=== PATIENT | female | born 1985 | race Caucasian/White ===

== ENCOUNTER 2016-07-29 12:01 | Emergency (ER) | payer OTHER ==
[~2016-07-29] VITALS: Ht 162.6 cm; Wt 82.0 kg
[~2016-07-29 12:01] MED LIST: AMLO2.5T78 PO; BAC30OI TOP; BEN25 PO; CALC-176 PO; CEPH-443 PO; FAMO-18 PO; FOLI-49 PO; HYDR200T5 PO; HYDR2TAB15 PO; PANT40TA4 PO; PRED10TA PO
[2016-07-29 12:05] VITALS: Ht 162.6 cm; Wt 82.0 kg
[2016-07-29] MEDS ORDERED: AZIT250T94 PO (13:51)
[2016-07-29] MEDS ORDERED: IBUP-1542 PO (13:51)
[2016-07-29] MEDS ORDERED: FLUT9.9S NASAL (13:52)
--- NOTE | 2016-07-29 13:54 | ERD ---
ER Documentation Chief Complaint Date/Time DATE: 07/29/16 TIME: 13:53 Chief Complaint LT EAR ACHE X 2 DAYS HPI This 31-year-old female presents with left ear pain for last 2 days. She also has cough congestion. She denies fevers, blood or discharge. ROS All systems reviewed and are negative except as per history of present illness. Medications Home Meds Active Scripts Fluticasone Propionate (Flonase Allergy Relief) 9.9 Ml [place].susp, 1 SPRAY NASAL DAILY for 7 Days, #1 BOTTLE TO EACH NOSTRIL Prov:MICKY CHAN MD 07/29/16 Ibuprofen* (Motrin*) 600 Mg Tab, 600 MG PO Q6, #15 TAB Prov:MICKY CHAN MD 07/29/16 Azithromycin* (Zithromax*) 250 Mg Tablet, 250 MG PO .ZPACK DIRECTED, #6 TAB TAKE 500 MG (2 TABS) THE FIRST DAY THEN 250 MG (1 TAB) DAYS 2-5 Prov:MICKY CHAN MD 07/29/16 Bacitracin* (Bacitracin Zinc Oint*) 28.35 Gm Oint, 1 APPLIC TOP BID, #1 TUB APPLI TO Prov:DEION MEAD PA-C 06/18/16 Cephalexin* (Keflex*) 500 Mg Capsule, 500 MG PO QID for 5 Days, CAP Prov:DEION MEAD PA-C 06/18/16 Famotidine* (Pepcid*) 20 Mg Tablet, 20 MG PO BID for 4 Days, TAB Prov:RAJAN GODDARD 06/09/16 Diphenhydramine Hcl* (Benadryl*) 25 Mg Cap, 25 MG PO Q6, #30 CAP Prov:RAJAN GODDARD 06/09/16 Hydromorphone Hcl* (Dilaudid*) 2 Mg Tablet, 2 MG PO Q6H Y for SEVERE PAIN LEVEL 7-10, #40 TAB Prov:NEVILLE AWAD MD 04/16/16 Pantoprazole* (Pantoprazole*) 40 Mg Tablet.dr, 40 MG PO BID, #60 3 Refills Prov:NEVILLE AWAD MD 04/16/16 Prednisone* (Prednisone*) 10 Mg Tab, 5 MG PO BID, #60 TAB Prov:NEVILLE AWAD MD 04/16/16 Reported Medications Amlodipine Besylate* (Amlodipine Besylate*) 2.5 Mg Tablet, 2.5 MG PO DAILY, #30 TAB 02/18/16 Hydroxychloroquine Sulfate* (Plaquenil*) 200 Mg Tab, 200 MG PO DAILY, TAB 02/18/16 Folic Acid* (Folic Acid*) 1 Mg Tablet, 1 MG PO DAILY, TAB 05/11/14 Calcium Cmb 2-Mag Cmb 12-Vit D3 (Calcium 500) 1 Each Tablet, 1 TAB PO DAILY, TAB 05/11/14 Allergies Allergies: Coded Allergies: vancomycin (Verified Allergy, Unknown, 06/08/16) PMhx/Soc History of Surgery: No Anesthesia Reaction: No Hx Neurological Disorder: No Hx Respiratory Disorders: No Hx Cardiac Disorders: No Hx Psychiatric Problems: No Hx Miscellaneous Medical Probl: Yes (SLE, RA, splenic infarct, RA, anemia, lupus) Hx Alcohol Use: No Hx Substance Use: No Hx Tobacco Use: No Physical Exam Vitals Vital Signs Date Time Temp Pulse Resp B/P Pulse Ox O2 Delivery O2 Flow Rate FiO2 07/29/16 12:05 98.2 84 18 147/78 96 Physical Exam Const: [] Alert, [id number] per Head: Atraumatic Eyes: Normal Conjunctiva ENT: Normal External Ears, Nose and Mouth. Clear nasal discharge. Left TM is opaque with decreased light reflex. No mastoid tenderness. Neck: Full range of motion..~ No meningismus. Resp: Clear to auscultation bilaterally Cardio: Regular rate and rhythm, no murmurs Abd: Soft, non tender, non distended. Normal bowel sounds Skin: No petechiae or rashes Back: No midline or flank tenderness Ext: No cyanosis, or edema Neur: Awake and alert Psych: Normal Mood and Affect Procedures/MDM Patient presents with URI symptoms and signs of otitis media. She will treated with Zithromax, Flonase and ibuprofen. The patient was stable with no new complaints during the ER course. Clinically, there is no current evidence to suggest meningitis, sepsis, acute abdomen, pneumonia, acute coronary syndrome, pulmonary embolism, or any other emergent condition appearing to require further evaluation or hospitalization. The patient should certainly return for any new or worsening symptoms per the aftercare instructions. They should otherwise follow-up with her primary care doctor for reevaluation this week. Departure Diagnosis: Primary Impression: Otitis media Otitis media type: suppurative Laterality: left Chronicity: acute Recurrence: not specified as recurrent Spontaneous tympanic membrane rupture: without spontaneous rupture Qualified Code: H66.002 - Acute suppurative otitis media of left ear without spontaneous rupture of tympanic membrane, recurrence not specified Additional Impression: Left ear pain Condition: Stable Patient Instructions: Otitis Media, Abx Tx (Adult) Additional Instructions: Recheck for new or worsening symptoms or primary care doctor. MICKY CHAN MD Jul 29, 2016 13:54
== END 2016-07-29 14:20 | disposition home or self-care (01) ==
LOC: FTE 12:01
DX: H66.002 Acute suppurative otitis media without spontaneous rupture of ear drum, left ear (principal)
CPT/HCPCS: 99283

== ENCOUNTER 2016-11-03 11:15 | Emergency (ER) | payer OTHER ==
[~2016-11-03] VITALS: Wt 80.0 kg
[~2016-11-03 11:15] MED LIST changes: +AZIT250T94 PO; -BAC30OI TOP; +BACI28.34 TOP; +FLUT9.9S NASAL; +IBUP-1542 PO
[2016-11-03] MEDS ORDERED: IBUPROFEN 800 MG TAB PO ONE (14:00)
[2016-11-03 14:05] LABS: URINE BLOOD (Dip) POC 2+ (NEGATIVE)
--- NOTE | 2016-11-03 14:20 | ERD ---
ER Documentation Chief Complaint Date/Time DATE: 11/03/16 TIME: 14:20 Chief Complaint LEFT EAR PAIN FOR A WEEK. NO COUGHING NO CONGESTION OR SORE THROAT HPI This a 31-year-old female who presents the emergency department today complaining of left ear pain for the past week. Patient states that she took Tylenol initially helped but now has increased pain. States that she feels like there is fluid behind her ear. Denies any sore throat, runny nose, cough. States that she has a history of lupus and anemia ROS All systems reviewed and are negative except as per history of present illness. Medications Home Meds Active Scripts Fluticasone Propionate (Flonase Allergy Relief) 9.9 Ml [place].susp, 1 SPRAY NASAL DAILY, #1 BOTTLE TO EACH NOSTRIL Prov:MOLLY MILNER PA-C 11/03/16 Cetirizine Hcl* (Zyrtec*) 10 Mg Capsule, 10 MG PO DAILY, #10 TAB.CHEW Prov:MOLLY MILNER PA-C 11/03/16 Ciprofloxacin Hcl/Dexameth (Ciprodex Otic Suspension) 7.5 Ml [place].susp, 4 DROP LEFT EAR BID for 7 Days, EA Prov:MOLLY MILNER PA-C 11/03/16 Acetaminophen* (Tylophen*) 500 Mg Capsule, 1 CAP PO Q6H Y for PAIN AND OR ELEVATED TEMP, #30 CAP Prov:MOLLY MILNER PA-C 11/03/16 Ibuprofen* (Motrin*) 600 Mg Tab, 600 MG PO Q6, #30 TAB Prov:MOLLY MILNER PA-C 11/03/16 Fluticasone Propionate (Flonase Allergy Relief) 9.9 Ml [place].susp, 1 SPRAY NASAL DAILY for 7 Days, #1 BOTTLE TO EACH NOSTRIL Prov:MICKY CHAN MD 07/29/16 Ibuprofen* (Motrin*) 600 Mg Tab, 600 MG PO Q6, #15 TAB Prov:MICKY CHAN MD 07/29/16 Azithromycin* (Zithromax*) 250 Mg Tablet, 250 MG PO .TylerPACK DIRECTED, #6 TAB TAKE 500 MG (2 TABS) THE FIRST DAY THEN 250 MG (1 TAB) DAYS 2-5 Prov:MICKY CHAN MD 07/29/16 Bacitracin* (Bacitracin Zinc Oint*) 28.35 Gm Oint, 1 APPLIC TOP BID, #1 TUB APPLI TO Prov:DEION MEAD PA-C 06/18/16 Cephalexin* (Keflex*) 500 Mg Capsule, 500 MG PO QID for 5 Days, CAP Prov:DEION MEAD PA-C 06/18/16 Famotidine* (Pepcid*) 20 Mg Tablet, 20 MG PO BID for 4 Days, TAB Prov:RAJAN GODDARD 06/09/16 Diphenhydramine Hcl* (Benadryl*) 25 Mg Cap, 25 MG PO Q6, #30 CAP Prov:RAJAN GODDARD 06/09/16 Hydromorphone Hcl* (Dilaudid*) 2 Mg Tablet, 2 MG PO Q6H Y for SEVERE PAIN LEVEL 7-10, #40 TAB Prov:NEVILLE AWAD MD 04/16/16 Pantoprazole* (Pantoprazole*) 40 Mg Tablet.dr, 40 MG PO BID, #60 3 Refills Prov:NEVILLE AWAD MD 04/16/16 Prednisone* (Prednisone*) 10 Mg Tab, 5 MG PO BID, #60 TAB Prov:NEVILLE AWAD MD 04/16/16 Reported Medications Amlodipine Besylate* (Amlodipine Besylate*) 2.5 Mg Tablet, 2.5 MG PO DAILY, #30 TAB 02/18/16 Hydroxychloroquine Sulfate* (Plaquenil*) 200 Mg Tab, 200 MG PO DAILY, TAB 02/18/16 Folic Acid* (Folic Acid*) 1 Mg Tablet, 1 MG PO DAILY, TAB 05/11/14 Calcium Cmb 2-Mag Cmb 12-Vit D3 (Calcium 500) 1 Each Tablet, 1 TAB PO DAILY, TAB 05/11/14 Allergies Allergies: Coded Allergies: vancomycin (Verified Allergy, Unknown, 07/29/16) PMhx/Soc History of Surgery: Yes (right index finger amp) Anesthesia Reaction: No Hx Neurological Disorder: No Hx Respiratory Disorders: No Hx Cardiac Disorders: No Hx Psychiatric Problems: No Hx Miscellaneous Medical Probl: Yes (SLE, RA, splenic infarct, RA, anemia, lupus) Hx Alcohol Use: No Hx Substance Use: No Hx Tobacco Use: No Smoking Status: Never smoker Physical Exam Vitals Vital Signs Date Time Temp Pulse Resp B/P Pulse Ox O2 Delivery O2 Flow Rate FiO2 11/03/16 11:19 98.9 89 20 140/81 97 Physical Exam Const: NAD Head: Atraumatic Eyes: Normal Conjunctiva ENT: Right ear TM normal. Left ear significant tenderness. No TM erythema. Nose no drainage. Throat no erythema no exudate or tenderness to palpation mastoid Neck: Full range of motion..~ No meningismus. Resp: Clear to auscultation bilaterally Cardio: Regular rate and rhythm, no murmurs Skin: No petechiae or rashes Back: No midline or flank tenderness Psych: Normal Mood and Affect Results 24 hrs Laboratory Tests Test 11/03/16 14:07 Bedside Urine pH (LAB) 5.0 Bedside Urine Protein (LAB) 1+ Bedside Urine Glucose (UA) Negative Bedside Urine Ketones (LAB) Negative Bedside Urine Blood 2+ Bedside Urine Nitrite (LAB) Negative Bedside Urine Leukocyte Esterase (L Negative Current Medications Medications (Trade) Dose Ordered Sig/Mansi Route PRN Reason Start Time Stop Time Status Last Admin Dose Admin Ibuprofen (Motrin) 800 mg ONCE ONCE PO 11/03/16 14:00 11/03/16 14:01 DC 11/03/16 13:39 DIAGNOSTIC IMAGING REPORT Patient: HAYDE MURILLO : 1985 Age: 31 Sex: F [id number] DOS: 11/03/16 0000 Ordering MD: MOLLY MILNER PA-C Location: [facility] Room/Bed: PROCEDURE: CT IAC without. CLINICAL INDICATION: Decreased left-sided hearing. TECHNIQUE: The study was performed utilizing a multi-slice, multidetector CT scanner. Direct spiral 1 mm axial sections were obtained through the head without the use of intravenous contrast material. 1 or more of the following dose reduction techniques were utilized: Automated exposure control, adjustment of the mA and/or kV according to patient's size, iterative reconstruction technique. Coronal and sagittal reformations were obtained. The images were reviewed on a PACS workstation. RADIATION DOSE: CTDIvol: 38.4 mGy DLP: 372.3 mGy-cm COMPARISON: No prior studies are available for comparison. FINDINGS: Right temporal bone: The external auditory canal is normal in appearance. The tympanic membrane is intact. The ossicles are intact. The stapes articulates normally with the oval window. There is normal bone mineral density of the fissula antefenestra. The inner ear structures are normal. The semicircular canals are covered by bone. The facial nerve describes a normal course. The mastoid air cells are normally aerated. The internal acoustic canal is unremarkable. There is pneumatization of the right petrous apex without evidence of inflammatory changes, normal variant. Left temporal bone: The external auditory canal is normal in appearance. The tympanic membrane is intact. The ossicles are intact. The stapes articulates normally with the oval window. There is normal bone mineral density of the fissula antefenestra. The inner ear structures are normal. The semicircular canals are covered by bone. The facial nerve describes a normal course. The mastoid air cells are normally aerated. The internal acoustic canal is unremarkable. There is pneumatization of the left petrous apex without evidence of inflammatory changes, normal variant. Limited visualization of the intracranial contents is unremarkable. IMPRESSION: 1. Normal CT of the temporal bones without contrast. 2. Anatomy as discussed above. RPTAT: HGAS .Damian Rosenberg MD MD Date Time Electronically viewed and signed by .Damian Rosenberg MD, on 11/03/2016 15: 25 .S/ CC: MOLLY MILNER PA-C [facility] This a 31-year-old female who presents to the emergency department today complaining of left ear pain for the past week. Patient has no URI symptoms that she does have a significant tenderness along her mastoid. I did have the patient seen and evaluated by Dr. Rodriguez and he feels that a CT scan would be appropriate to rule out mastoiditis. Facial bones CT noncontrast showed normal CT of the temporal bones without contrast. There are no abnormalities. Patient symptoms at this time most consistent with eustachian tube dysfunction. There is no evidence of otitis media. Did consider otitis externa. Patient has no other URI symptoms. I have low suspicion for strep pharyngitis, peritonsillar abscess, retropharyngeal abscess, otitis media, PNA, sinusitis, abscess, meningitis, sepsis, or other acute infectious bacterial process. Patient does have a history of lupus and is already taking prednisone. Patient was given Motrin here in the emergency department. I will give her prescription for Ciprodex drops in addition Tylenol, Motrin, Zyrtec and Flonase. Patient was given referral information for ENT specialist. She is instructed to continue taking her usual lupus medications. At this time the patient is stable for discharge and outpatient management. Patient should follow up with their PCP in the next 1-2 days. They may return to the emergency department sooner for any persistent or worsening of symptoms. Patient understood and agreed with the plan. Departure Diagnosis: Primary Impression: Left ear pain Condition: MOLLY Epps PA-C November 03, 2016 14:20
--- NOTE | 2016-11-03 15:25 | RADRPT ---
PROCEDURE: CT IAC without. CLINICAL INDICATION: Decreased left-sided hearing. TECHNIQUE: The study was performed utilizing a multi-slice, multidetector CT scanner. Direct spira l 1 mm axial sections were obtained through the head without the use of intravenous contrast materia l. 1 or more of the following dose reduction techniques were utilized: Automated exposure control , adjustment of the mA and/or kV according to patient's size, iterative reconstruction technique. C oronal and sagittal reformations were obtained. The images were reviewed on a PACS workstation. RADIATION DOSE: CTDIvol: 38.4 mGyDLP: 372.3 mGy-cm COMPARISON: No prior studies are available for comparison. FINDINGS: Right temporal bone: The external auditory canal is normal in appearance. The tympanic membrane is intact. The ossicles are intact. The stapes articulates normally with the oval window. There is normal bone mineral density of the fissula antefenestra. The inner ear structures are normal. The semicircular canals are covered by bone. The facial nerve describes a normal course. The mastoid a ir cells are normally aerated. The internal acoustic canal is unremarkable. There is pneumatization of the right petrous apex without evidence of inflammatory changes, normal variant. Left temporal bone: The external auditory canal is normal in appearance. The tympanic membrane is intact. The ossicles are intact. The stapes articulates normally with the oval window. There is normal bone mineral density of the fissula antefenestra. The inner ear structures are normal. The semicircular canals are covered by bone. The facial nerve describes a normal course. The mastoid a ir cells are normally aerated. The internal acoustic canal is unremarkable. There is pneumatization of the left petrous apex without evidence of inflammatory changes, normal variant. Limited visualization of the intracranial contents is unremarkable. IMPRESSION: 1. Normal CT of the temporal bones without contrast. 2. Anatomy as discussed above. RPTAT: HGAS .Damian Rosenberg MD, Date Time Electronically viewed and signed by .Damian Rosenberg MD, MD on 11/03/2016 15:25 .S/
[2016-11-03] MEDS ORDERED: ACET500C5 PO (15:42)
[2016-11-03] MEDS ORDERED: IBUP-1542 PO (15:42)
[2016-11-03] MEDS ORDERED: FLUT9.9S NASAL (15:43)
[2016-11-03] MEDS ORDERED: CIPR7.5D4 LEFT EAR (15:43)
[2016-11-03] MEDS ORDERED: CETI10CA PO (15:43)
== END 2016-11-03 15:54 | disposition home or self-care (01) ==
LOC: FTE 11:15
DX: H92.02 Otalgia, left ear (principal)
CPT/HCPCS: 70480; 81003; Z7502; Z7610

== ENCOUNTER 2016-12-05 19:28 | Emergency (ER) | payer OTHER ==
[~2016-12-05] VITALS: Ht 162.6 cm; Wt 85.5 kg
[~2016-12-05 19:28] MED LIST changes: +ACET500C5 PO; +CETI10CA PO; +CIPR7.5D4 LEFT EAR
[2016-12-05 19:38] VITALS: Ht 162.6 cm; Wt 85.5 kg
[2016-12-05] MEDS ORDERED: ONDANSETRON 4 MG INJ IV STA (20:12)
--- NOTE | 2016-12-05 20:29 | ERD ---
ER Documentation Chief Complaint Date/Time DATE: 12/05/16 TIME: 20:24 Chief Complaint Vomiting and Diarrhea since this morning HPI 34-year-old female complaining of nausea, vomiting, and diarrhea since earlier today. She vomited every 30 minutes, and able to maintain p.o. fluid intake. The vomit is nonbloody and nonbilious. She had 4 episodes of diarrhea today, last episode was 7 hours ago. The diarrhea is nonbloody. Patient has history of GERD, reports epigastric discomfort for the last week, along with shortness of breath on exertion. Patient also has history of lupus and hypertension. Denies fever at home. Denies shortness of breath at rest. Denies headache or neck pain. Denies chest pain. Denies dysuria. Denies cough or runny nose. ROS All systems reviewed and are negative except as per history of present illness. Medications Home Meds Active Scripts Electrolyte,Oral (Pedialyte) 1,000 Ml Solution, 100 ML PO Q6 Y for VOMITTING, # 1000 ML Prov:DEREK DUNBAR NP 12/05/16 Ondansetron (Ondansetron Odt) 4 Mg Tab.rapdis, 4 MG PO Q6H Y for NAUSEA AND/OR VOMITING, #10 TAB Prov:DEREK DUNBAR NP 12/05/16 Acetaminophen* (Tylophen*) 500 Mg Capsule, 1 CAP PO Q6H Y for PAIN AND OR ELEVATED TEMP, #20 CAP Prov:DEREK DUNBAR REINFORCER 12/05/16 Fluticasone Propionate (Flonase Allergy Relief) 9.9 Ml Gratz.susp, 1 SPRAY NASAL DAILY, #1 BOTTLE TO EACH NOSTRIL Prov:MOLLY MILNER PA-C 11/03/16 Cetirizine Hcl* (Zyrtec*) 10 Mg Capsule, 10 MG PO DAILY, #10 TAB.CHEW Prov:MOLLY MILNER PA-C 11/03/16 Ciprofloxacin Hcl/Dexameth (Ciprodex Otic Suspension) 7.5 Ml Drops.susp, 4 DROP LEFT EAR BID for 7 Days, EA Prov:MOLLY MLINER PA-C 11/03/16 Acetaminophen* (Tylophen*) 500 Mg Capsule, 1 CAP PO Q6H Y for PAIN AND OR ELEVATED TEMP, #30 CAP Prov:PROUSE,MOLLY M. PA-C 11/03/16 Ibuprofen* (Motrin*) 600 Mg Tab, 600 MG PO Q6, #30 TAB Prov:MOLLY MILNER PA-C 11/03/16 Fluticasone Propionate (Flonase Allergy Relief) 9.9 Ml Gratz.susp, 1 SPRAY NASAL DAILY for 7 Days, #1 BOTTLE TO EACH NOSTRIL Prov:MICKY CHAN MD 07/29/16 Ibuprofen* (Motrin*) 600 Mg Tab, 600 MG PO Q6, #15 TAB Prov:MICKY CHAN MD 07/29/16 Azithromycin* (Zithromax*) 250 Mg Tablet, 250 MG PO .TylerPACK DIRECTED, #6 TAB TAKE 500 MG (2 TABS) THE FIRST DAY THEN 250 MG (1 TAB) DAYS 2-5 Prov:MICKY CHAN MD 07/29/16 Bacitracin* (Bacitracin Zinc Oint*) 28.35 Gm Oint, 1 APPLIC TOP BID, #1 TUB APPLI TO Prov:DEION MEAD PA-C 06/18/16 Cephalexin* (Keflex*) 500 Mg Capsule, 500 MG PO QID for 5 Days, CAP Prov:DEION MEAD PA-C 06/18/16 Famotidine* (Pepcid*) 20 Mg Tablet, 20 MG PO BID for 4 Days, TAB Prov:RAJAN GODDARD 06/09/16 Diphenhydramine Hcl* (Benadryl*) 25 Mg Cap, 25 MG PO Q6, #30 CAP Prov:RAJAN GODDARD 06/09/16 Hydromorphone Hcl* (Dilaudid*) 2 Mg Tablet, 2 MG PO Q6H Y for SEVERE PAIN LEVEL 7-10, #40 TAB Prov:NEVILLE AWAD MD 04/16/16 Pantoprazole* (Pantoprazole*) 40 Mg Tablet.dr, 40 MG PO BID, #60 3 Refills Prov:NEVILLE AWAD MD 04/16/16 Prednisone* (Prednisone*) 10 Mg Tab, 5 MG PO BID, #60 TAB Prov:NEVILLE AWAD MD 04/16/16 Reported Medications Amlodipine Besylate* (Amlodipine Besylate*) 2.5 Mg Tablet, 2.5 MG PO DAILY, #30 TAB 02/18/16 Hydroxychloroquine Sulfate* (Plaquenil*) 200 Mg Tab, 200 MG PO DAILY, TAB 02/18/16 Folic Acid* (Folic Acid*) 1 Mg Tablet, 1 MG PO DAILY, TAB 05/11/14 Calcium Cmb 2-Mag Cmb 12-Vit D3 (Calcium 500) 1 Each Tablet, 1 TAB PO DAILY, TAB 05/11/14 Allergies Allergies: Coded Allergies: vancomycin (Verified Allergy, Unknown, 12/05/16) PMhx/Soc History of Surgery: Yes (right index finger amp) Anesthesia Reaction: No Hx Neurological Disorder: No Hx Respiratory Disorders: No Hx Cardiac Disorders: No Hx Psychiatric Problems: No Hx Miscellaneous Medical Probl: Yes (SLE, RA, splenic infarct, RA, anemia, lupus) Hx Alcohol Use: No Hx Substance Use: No Hx Tobacco Use: No Smoking Status: Never smoker Physical Exam Vitals Vital Signs Date Time Temp Pulse Resp B/P Pulse Ox O2 Delivery O2 Flow Rate FiO2 12/05/16 21:39 100.6 85 17 113/68 100 Room Air 12/05/16 19:38 101.3 115 20 139/74 97 Physical Exam General: Well-developed, well-nourished, conscious and coherent, in no distress Skin: Warm and dry without rash, good texture and turgor Head: Normocephalic without evidence of trauma Eyes: Sclera and conjunctivae normal; pupils equal, round, and reactive to light; extraocular movements are intact Neck: Supple without meningismus or adenopathy. Carotids are equal. Trachea midline. No bruits or JVD Chest: Normal AP diameter. Good expansion without retractions. Nontender. Lungs are clear to auscultate bilaterally with good tidal volume Heart: Regular rate and rhythm. No murmur, rub, or gallops heard Abdomen: Soft, epigastric and right upper quadrant without masses, guarding, or rebound. Bowel sounds are active. No hepatosplenomegaly Back: Without spinal or CVA tenderness Pelvis: Nontender to palpation and stable to compression Extremities: Full range of motion. Good strength bilaterally. No clubbing, cyanosis, or edema. Peripheral pulses are intact. Sensation intact Neuro: Alert and oriented 4, GCS 15. Cranial nerves grossly intact. Motor and sensory exams nonfocal. Moves all extremities. Speech clear. Gait normal Result Diagram: 12/05/16201912/05/162019 Results 24 hrs Laboratory Tests Test 12/05/16 20:20 White Blood Count 7.010^3/ul Red Blood Count 3.7410^6/ul Hemoglobin 9.0g/dl Hematocrit 30.4% Mean Corpuscular Volume 81.3fl Mean Corpuscular Hemoglobin 24.1pg Mean Corpuscular Hemoglobin Concent 29.6g/dl Red Cell Distribution Width 14.1% Platelet Count 7510^3/UL Mean Platelet Volume 12.9fl Neutrophils % 87.2% Lymphocytes % 7.5% Monocytes % 4.3% Eosinophils % 0.3% Basophils % 0.1% Nucleated Red Blood Cells % 0.0/100WBC Neutrophils # 6.110^3/ul Lymphocytes # 0.510^3/ul Monocytes # 0.310^3/ul Eosinophils # 0.010^3/ul Basophils # 0.010^3/ul Nucleated Red Blood Cells # 0.010^3/ul Urine Color YELLOW Urine Clarity CLEAR Urine pH 5.5 Urine Specific [place] >=1.030 Urine Ketones NEGATIVE Urine Nitrite NEGATIVE Urine Bilirubin 1+ Urine Ictotest NEGATIVE Urine Urobilinogen 0.2 E.U./dL Urine Leukocyte Esterase NEGATIVE Urine Microscopic RBC 2-5/HPF Urine Microscopic WBC 0-2/HPF Urine Squamous Epithelial Cells FEW Urine Bacteria RARE Urine Hemoglobin 1+ Urine Glucose NEGATIVE% Urine Total Protein 1+ Sodium Level 142mmol/L Potassium Level 3.6mmol/L Chloride Level 109mmol/L Carbon Dioxide Level 22mmol/L Anion Gap 15 Blood Urea Nitrogen 10mg/dl Creatinine 0.70mg/dl Glucose Level 94mg/dl Calcium Level 8.6mg/dl Total Bilirubin 1.0mg/dl Direct Bilirubin 0.00mg/dl Indirect Bilirubin 1.0mg/dl Aspartate Amino Transf (AST/SGOT) 22IU/L Alanine Aminotransferase (ALT/SGPT) 28IU/L Alkaline Phosphatase 102IU/L Troponin I 0.014ng/ml Total Protein 7.7g/dl Albumin 4.3g/dl Globulin 3.40g/dl Albumin/Globulin Ratio 1.26 Lipase 22U/L Current Medications Medications (Trade) Dose Ordered Sig/Mansi Route PRN Reason Start Time Stop Time Status Last Admin Dose Admin Ondansetron HCl 4 mg 4 mg ONCE STAT IV 12/05/16 20:12 12/05/16 20:13 DC 12/05/16 20:47 Sodium Chloride (NS) 1,000 ml @ 1,000 mls/hr Q1H ONCE IV 12/05/16 20:30 12/05/16 21:29 DC 12/05/16 20:48 Acetaminophen (Tylenol Tab) 650 mg ONCE ONCE PO 12/05/16 20:30 12/05/16 20:31 DC 12/05/16 20:48 PROCEDURE: XR Chest. CLINICAL INDICATION: Shortness of breath. TECHNIQUE: Portable AP view of the chest was obtained. COMPARISON: 03/14/2016 FINDINGS: The cardiomediastinal silhouette is mildly enlarged. The lungs are clear. There is no evidence for pleural effusion, pneumothorax or pulmonary vascular congestion. The osseous structures are intact with no evidence for acute abnormality. RPTAT:HJJR IMPRESSION: Mild cardiac silhouette enlargement without evidence for acute intrathoracic pathology. Physician Andrei Date Time Electronically viewed and signed by Physician Andrei on 12/05/2016 21:58 JR/ CC: DEREK DUNBAR NP PROCEDURE: Right upper quadrant abdominal ultrasound. CLINICAL INDICATION: Abdominal pain TECHNIQUE: Meneses scale and color doppler ultrasound images of the right upper quadrant. COMPARISON: Abdominal 04/12/2016, abdominal CT 04/11/2016 FINDINGS: Pancreas: Visualized portions appear of normal echogenicity, no focal lesions. Liver: Morphology: Normal in size and contour. Echogenicity: Normal. Focal lesions: None. Main portal vein: Patent with hepatopetal flow. Biliary System: Asymmetric wall thickness of the gallbladder is unchanged with areas of normal thickness observed. No gallstones seen. 5 mm gallbladder wall polyp is again noted. No intrahepatic biliary dilatation. Common bile duct measures 3.5 mm in maximal dimension. Kidneys: Right 11.2 cm in length. Right renal cortical thickness is preserved. Normal echogenicity. No hydronephrosis. No renal calculi. No focal lesions. No free fluid identified. IMPRESSION: Asymmetric wall thickening of the gallbladder with areas of sparing is unchanged from previous examination and not consistent with cholecystitis. Unchanged appearance of small gallbladder wall polyp. No shadowing gallstones are seen. Normal caliber intrahepatic and extrahepatic biliary system. RPTAT: AADD .Pritesh Montes MD, MD Date Time Electronically viewed and signed by .Pritesh Montes MD, MD on 12/05/2016 21:24 .B/ CC: DEREK DUNBAR REINFORCER Procedures/MDM ED course: Patient given Tylenol p.o., Zofran IV, and normal saline 1 L bolus. Patient did not have any more episodes of vomiting while in the ED. Her temperature and heart rate have decreased. EKG: Sinus tachycardia at 106, normal axis. Right bundle branch block, left anterior fascicular block, bifascicular block, left ventricular hypertrophy with repolarization abnormality. No ST segment elevation or depression. No ectopic beats. No QT prolongation. No other EKG abnormalities. No change in EKG compared to previous visits. EKG read by Dr. Rodríguez. CBC: no e/o of systemic infection or severe anemia CMP: no e/o severe acidosis, renal failure, diabetic ketoacidosis, liver disease Lipase: no e/o pancreatitis PT/INR: normal coagulation Troponin: no e/o acute ischemia Chest X-ray 1V: Mild cardiac silhouette enlargement without evidence for acute intrathoracic pathology. Gallbladder ultrasound: Asymmetric wall thickening of the gallbladder with areas of sparing is unchanged from previous examination and not consistent with cholecystitis. Unchanged appearance of small gallbladder wall polyp. No shadowing gallstones are seen. Normal caliber intrahepatic and extrahepatic biliary system. Medical decision-making: Well-appearing 31-year-old female history of lupus and acid reflux present ED with fever, vomiting, and diarrhea since this morning. Likely patient has a viral gastroenteritis. Low suspicion for acute TX, pneumonia, pneumothorax, PE , or aortic dissection. Low suspicion for acute appendicitis, cholecystitis, pancreatitis, or other acute abdomen. Patient symptoms and vital signs improved after ED treatment. Patient appears well, stable for discharge and outpatient management. Medical decision making shared with patient and family. Education provided to patient and family. Patient and family expressed understanding of the plan. Medications on discharge: Tylenol, Zofran. Follow-up: Primary care provider in 2-3 days or return to ED if worse. The case was reviewed and discussed with Dr. Thomas, who agrees with the plan of care including labs, treatment, and advanced imaging as appropriate. Departure Diagnosis: Primary Impression: Gastroenteritis Condition: Good DEREK DUNBAR REINFORCER Dec 05, 2016 20:29
[2016-12-05] MEDS ORDERED: SOD CHLORIDE 0.9% 1,000 ML IV ONE (20:30)
[2016-12-05] MEDS ORDERED: ACETAMINOPHEN 325 MG TAB PO ONE (20:30)
[2016-12-05 20:39] LABS: ADD SCAN DIFF NO
[2016-12-05 20:41] LABS: ABNORMAL IP MESSAGE 1; BASOPHILS % 0.1 % (0.0-2.0); EOSINOPHILS % 0.3 % (0.0-7.0); HEMATOCRIT 30.4 % (37.0-47.0); LYMPHOCYTES # 0.5 10^3/ul (0.8-2.9); LYMPHOCYTES % 7.5 % (15.0-51.0); MEAN CORPUSCULAR HEMOGLOBIN 24.1 pg (29.0-33.0); MEAN CORPUSCULAR HGB CONC 29.6 g/dl (32.0-37.0); MEAN CORPUSCULAR VOLUME 81.3 fl (82.0-101.0); MEAN PLATELET VOLUME 12.9 fl (7.4-10.4); MONOCYTE # 0.3 10^3/ul (0.3-0.9); MONOCYTES % 4.3 % (0.0-11.0); NEUTROPHIL # 6.1 10^3/ul (1.6-7.5); NEUTROPHILS % 87.2 % (39.0-77.0); PLATELET COUNT 75 10^3/UL (140-415); RED BLOOD COUNT 3.74 10^6/ul (4.20-5.40); RED CELL DISTRIBUTION WIDTH 14.1 % (11.5-14.5)
[2016-12-05 20:44] LABS: ADD UMIC YES; URINE BILIRUBIN (Dip) 1+ (NEGATIVE); URINE BLOOD (Dip) 1+ (NEGATIVE); URINE COLOR YELLOW (YELLOW); URINE GLUCOSE (Dip) NEGATIVE (NEGATIVE); URINE KETONES (Dip) NEGATIVE (NEGATIVE); URINE LEUKOCYTE ESTERASE (Dip) NEGATIVE (NEGATIVE); URINE NITRITE (Dip) NEGATIVE (NEGATIVE); URINE TOTAL PROTEIN (Dip) 1+ (NEGATIVE); URINE UROBILINOGEN (Dip) 0.2 E.U./dL (0.1-1.0)
[2016-12-05 21:06] LABS: ALBUMIN 4.3 g/dl (3.3-4.9); ALBUMIN/GLOBULIN RATIO 1.26; CALCIUM 8.6 mg/dl (8.4-10.2); CREATININE 0.7 mg/dl (0.44-1.00); POTASSIUM 3.6 mmol/L (3.5-5.1); TOTAL PROTEIN 7.7 g/dl (6.1-8.1)
[2016-12-05 21:12] LABS: ICTOTEST NEGATIVE (NEGATIVE)
[2016-12-05 21:13] LABS: BACTERIA,URINE RARE; SQUAMOUS EPITHELIAL CELL,UR FEW
--- NOTE | 2016-12-05 21:25 | RADRPT ---
PROCEDURE: Right upper quadrant abdominal ultrasound. CLINICAL INDICATION: Abdominal pain TECHNIQUE: Meneses scale and color doppler ultrasound images of the right upper quadrant. COMPARISON: Abdominal 04/12/2016, abdominal CT 04/11/2016 FINDINGS: Pancreas: Visualized portions appear of normal echogenicity, no focal lesions. Liver: Morphology: Normal in size and contour. Echogenicity: Normal. Focal lesions: None. Main portal vein: Patent with hepatopetal flow. Biliary System: Asymmetric wall thickness of the gallbladder is unchanged with areas of normal thickness observed. No gallstones seen. 5 mm gallbladder wall polyp is again noted. No intrahepatic biliary dilatation. Common bile duct measures 3.5 mm in maximal dimension. Kidneys: Right 11.2 cm in length. Right renal cortical thickness is preserved. Normal echogenicity. No hydronephrosis. No renal calculi. No focal lesions. No free fluid identified. IMPRESSION: Asymmetric wall thickening of the gallbladder with areas of sparing is unchanged from previous exami nation and not consistent with cholecystitis. Unchanged appearance of small gallbladder wall polyp. No shadowing gallstones are seen. Normal caliber intrahepatic and extrahepatic biliary system. RPTAT: AADD .Pritesh Montes MD, MD Date Time Electronically viewed and signed by .Pritesh Montes MD, on 12/05/2016 21:24 .B/
[2016-12-05 21:39] VITALS: BP 113/68; PULSE 85; RESP 17; TEMP 100.6
--- NOTE | 2016-12-05 21:58 | RADRPT ---
PROCEDURE: XR Chest. CLINICAL INDICATION: Shortness of breath. TECHNIQUE: Portable AP view of the chest was obtained. COMPARISON: 03/14/2016 FINDINGS: The cardiomediastinal silhouette is mildly enlarged. The lungs are clear. There is no evidence for pleural effusion, pneumothorax or pulmonary vascular congestion. The osseous structures are intact with no evidence for acute abnormality. RPTAT:HJJR IMPRESSION: Mild cardiac silhouette enlargement without evidence for acute intrathoracic pathology. Physician Andrei Date Time Electronically viewed and signed by Physician Andrei on 12/05/2016 21:58 JR/
[2016-12-05] MEDS ORDERED: ONDA4TAB14 PO (22:17)
[2016-12-05] MEDS ORDERED: ACET500C5 PO (22:17)
[2016-12-05] MEDS ORDERED: ELEC100080 PO (22:17)
== END 2016-12-05 22:25 | disposition home or self-care (01) ==
LOC: FTE 19:28
DX: K52.9 Noninfective gastroenteritis and colitis, unspecified (principal); R06.02 Shortness of breath
CPT/HCPCS: 71010; 76705; 80053; 81001; 83690; 84484; 85025; J2405; J7030; Z7610; 36415; 93005; 96361; 96374

== ENCOUNTER 2017-01-07 12:38 | Inpatient (IN) | payer OTHER ==
[~2017-01-07] VITALS: Ht 162.6 cm; Wt 87.0 kg
[~2017-01-07 12:38] MED LIST changes: +ELEC100080 PO; -FAMO-18 PO; +FAMO-96 PO; -HYDR2TAB15 PO; +HYDR2TAB36 PO; +ONDA4TAB14 PO
[2017-01-07 12:58] VITALS: Ht 162.6 cm; Wt 87.0 kg
[2017-01-07] MEDS ORDERED: SOD CHLORIDE 0.9% 1,000 ML IV STA (14:06)
[2017-01-07] MEDS ORDERED: ACETAMINOPHEN 325 MG TAB PO ONE (14:30)
[2017-01-07 14:44] LABS: ADD SCAN DIFF NO
[2017-01-07 14:47] LABS: ABNORMAL IP MESSAGE 1; HEMATOCRIT 32.3 % (37.0-47.0); HEMOGLOBIN 8.9 g/dl (12.0-16.0); MEAN CORPUSCULAR HEMOGLOBIN 22.3 pg (29.0-33.0); MEAN CORPUSCULAR HGB CONC 27.6 g/dl (32.0-37.0); MEAN CORPUSCULAR VOLUME 80.8 fl (82.0-101.0); RED CELL DISTRIBUTION WIDTH 19.9 % (11.5-14.5); WHITE BLOOD COUNT 7.2 10^3/ul (4.8-10.8)
[2017-01-07 14:49] LABS: PLATELET COUNT 57 10^3/UL (140-415)
[2017-01-07 15:03] LABS: ALBUMIN 4.2 g/dl (3.3-4.9); ALBUMIN/GLOBULIN RATIO 1.2; BILIRUBIN,INDIRECT 0.9 mg/dl (0-1.1); BILIRUBIN,TOTAL 0.9 mg/dl (0.2-1.3); CALCIUM 8.9 mg/dl (8.4-10.2); CREATININE 0.65 mg/dl (0.44-1.00); POTASSIUM 3.3 mmol/L (3.5-5.1); TOTAL PROTEIN 7.7 g/dl (6.1-8.1)
[2017-01-07] MEDS ORDERED: SOD CHLORIDE 0.9% 100 ML ONE (15:18)
[2017-01-07] MEDS ORDERED: IOHEXOL 300MG/ML 30 ML BTL ONE (15:18)
[2017-01-07 15:31] LABS: MONOCYTE # 0.6 10^3/ul (0.3-0.9); NEUTROPHIL # 5.5 10^3/ul (1.6-7.5); PLATELET ESTIMATE PLT APPEAR DECREASED
[2017-01-07 15:53] LABS: ADD UMIC YES; UR ASCORBIC ACID NEGATIVE (NEGATIVE); UR BILIRUBIN (Dip) NEGATIVE (NEGATIVE); UR BLOOD (Dip) 2+ mg/dL (NEGATIVE); UR CLARITY CLEAR (CLEAR); UR COLOR AMBER (YELLOW); UR GLUCOSE (Dip) NEGATIVE (NEGATIVE); UR KETONES (Dip) NEGATIVE (NEGATIVE); UR LEUKOCYTE ESTERASE (Dip) NEGATIVE Leu/ul (NEGATIVE); UR MUCUS FEW /HPF (NONE SEEN); UR NITRITE (Dip) NEGATIVE (NEGATIVE); UR RBC 0 /HPF (0-5); UR SPECIFIC GRAVITY (Dip) 1.024 (1.003-1.030); UR TOTAL PROTEIN (Dip) 1+ mg/dl (NEGATIVE); UR UROBILINOGEN (Dip) NEGATIVE (NEGATIVE)
[2017-01-07] MEDS ORDERED: morphine 4 MG/ML VIAL IV STA (16:34)
--- NOTE | 2017-01-07 16:49 | RADRPT ---
PROCEDURE: CT Abdomen and Pelvis with contrast. CLINICAL INDICATION: Abdominal pain, left-sided, history of splenic infarct TECHNIQUE: CT scan of the abdomen and pelvis with contrast was performed on a multi-detector high- resolution CT scanner. The patient was scanned following the intravenous administration of 100 cc o f Omnipaque 300. Coronal and sagittal reformatted images were obtained from the axial source images . Images were reviewed on a high-resolution PACS workstation. The total exam CTDI equals 18.39 mGy a nd the total exam DLP equals 1089.77 mGy-cm. One or more the following dose reduction techniques were utilized: Automated exposure control, adjus tment of the mA and / or kV according to patient's size, or use of iterative reconstruction techniqu e. COMPARISON: Right upper quadrant abdominal ultrasound of 12/05/[address] abdomen with contrast of 04/11/[address] abdomen and pelvis without contrast of 02/18/2016 FINDINGS: Minimal dependent atelectasis in posterior lower lungs. Marked splenomegaly is again seen with the vertical length of the spleen 19.9 cm not significantly changed compared to the 04/11/2016 study. M ultiple wedge-shaped areas of decreased density are again seen in the spleen consistent with splenic infarcts with a new approximate 5 x 3.6 cm infarct in the anterior mid to lower spleen and interval decrease in size of additional anterior mid splenic infarct compared to previous study. Small amoun t of perisplenic ascitic fluid is again seen. Small amount of perihepatic ascitic fluid is again se en. The length of the liver equals 16.8 cm, decrease in size compared to previous study. There is appearance of minimal pericholecystic fluid which could be secondary to ascites decreased compared t o previous study. No biliary dilatation is seen. Small pericardial effusion decreased compared to previous study. No abnormality is seen in the pancreas, adrenals or right kidney. There is impression on the anterolateral upper to mid left kidney by the enlarged spleen. No abdominal aorti c aneurysm is seen. There is impression upper greater curvature of the stomach by the enlarged sple en. In the pelvis there is a small amount to moderate amount of ascitic fluid increased compared to the 02/18/2016 CT. No definite abnormality of the uterus or adnexal regions as seen on CT. No def inite abnormality of the colon is seen. No dilated small bowel loops are seen. There is the sugges tion of an unremarkable appendix. No enlarged lymph nodes are seen in the abdomen or pelvis. No pn eumoperitoneum is seen. Small scattered likely bone islands again seen. Minimal osteoarthrosis at hips. Degenerative changes at sacroiliac joints. Mild degenerative changes in lumbar spine. IMPRESSION: Marked splenomegaly again seen. Consistent multiple splenic infarcts with a new approximate 5 x 3.6 cm infarct in the anterior mid to lower spleen and interval decrease in size of additional anterior mid splenic infarct compared to previous study. Small to moderate amount of ascites. Please see ab ove. RPTAT: HJES .Beni Adames MD, MD Date Time Electronically viewed and signed by .Beni Adames MD, on 01/07/2017 16:49 .S/
[2017-01-07] MEDS ORDERED: AMLO5TAB4 PO (18:00)
[2017-01-07] MEDS ORDERED: HYDR200T39 PO (18:01)
[2017-01-07] MEDS ORDERED: AZAT50TA31 PO (18:02)
[2017-01-07] MEDS ORDERED: PRED10TA PO (18:02)
[2017-01-07] MEDS ORDERED: PANT40TA4 PO (18:03)
--- NOTE | 2017-01-07 18:46 | ERD ---
ER Documentation Chief Complaint Date/Time DATE: 01/07/17 TIME: 18:41 Chief Complaint abdominal pain. seen by pcp wednesday given tramadol, not working HPI 31-year-old female patient with a past medical history of anemia, systemic lupus erythematosus, rheumatoid arthritis, Raynaud's disease, hypertension presents to the ED complaining of a fever and left upper quadrant abdominal pain that started intermittently for the last few days. States that this pain is chronic however because it has worsened it brought her to the ER. States that the fever started earlier today. States that she is nauseous and had a few episodes of nonbilious nonbloody vomiting. 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 Denies any chest pain, shortness of breath, diarrhea, constipation. ROS All systems reviewed and are negative except as per history of present illness. Medications Home Meds Active Scripts Prednisone* (Prednisone*) 20 Mg Tab, 40 MG PO DAILY for 14 Days, #28 TAB Prov:PATO MEAD 01/14/17 Oxycodone HCl/Acetaminophen (Percocet 10-325 mg Tablet) 1 Each Tablet, 1 EACH PO Q8 Y for PAIN for 7 Days, #21 TAB Prov:PATO MEAD 01/11/17 Reported Medications Pantoprazole* (Pantoprazole*) 40 Mg Tablet.dr, 40 MG PO AC BREAKFAST, TAB 01/07/17 Prednisone* (Prednisone*) 10 Mg Tab, 10 MG PO BID, TAB 01/07/17 Azathioprine* (Imuran*) 50 Mg Tab, 50 MG PO BID, TAB 01/07/17 Hydroxychloroquine Sulfate* (Hydroxychloroquine Sulfate*) 200 Mg Tablet, 200 MG PO BID, TAB 01/07/17 Amlodipine Besylate* (Norvasc*) 5 Mg Tablet, 2.5 MG PO BID, TAB 01/07/17 Allergies Allergies: Coded Allergies: vancomycin (Verified Allergy, Unknown, 01/10/17) PMhx/Soc History of Surgery: Yes (right index finger amp) Anesthesia Reaction: No Hx Neurological Disorder: No Hx Respiratory Disorders: No Hx Cardiac Disorders: No Hx Psychiatric Problems: No Hx Miscellaneous Medical Probl: Yes (SLE, RA, splenic infarct, RA, anemia, lupus) Hx Alcohol Use: No Hx Substance Use: No Hx Tobacco Use: No Smoking Status: Never smoker Physical Exam Vitals Vital Signs Date Time Temp Pulse Resp B/P Pulse Ox O2 Delivery O2 Flow Rate FiO2 01/07/17 12:58 101.9 99 22 142/79 99 Physical Exam Const: [id number], well-nourished. In no acute distress. Head: Atraumatic, normocephalic Eyes: Normal Conjunctiva without injection. No purulent discharge. ENT: Normal external ear, nose. Moist oropharynx without tonsillar exudates. Non -erythematous pharynx. Uvula midline. No drooling. No trismus. Neck: No cervical midline tenderness. Full range of motion. No meningismus. No cervical lymphadenopathy. No JVD. Resp: Clear to auscultation bilaterally. No wheezing, rhonchi, rales, or crackles. No accessory muscle use. No retractions. Cardio: Regular rate and rhythm. No murmurs, rubs or gallops. Abd: Soft, left upper quadrant abdominal pain, non distended. Normal bowel sounds. No palpable masses. No rebound tenderness. No guarding. Negative McBurney's point. Negative psoas sign. Negative obturator sign. Skin: No petechiae or rashes Back: No midline tenderness. No CVA tenderness. Ext: No cyanosis, or edema. Neur: Awake and alert. Normal gait. Normal coordination. Psych: Normal Mood and Affect Result Diagram: 01/14/17 0713 01/14/17 0713 Results 24 hrs Laboratory Tests Test 01/07/17 14:20 01/07/17 15:25 01/07/17 15:29 White Blood Count 7.210^3/ul Red Blood Count 4.0010^6/ul Hemoglobin 8.9g/dl Hematocrit 32.3% Mean Corpuscular Volume 80.8fl Mean Corpuscular Hemoglobin 22.3pg Mean Corpuscular Hemoglobin Concent 27.6g/dl Red Cell Distribution Width 19.9% Platelet Count 5710^3/UL Mean Platelet Volume fl Neutrophils % 76.0% Band Neutrophils % 2.0% Lymphocytes % 14.0% Monocytes % 8.0% Neutrophils # 5.510^3/ul Lymphocytes # 1.010^3/ul Monocytes # 0.610^3/ul Platelet Estimate PLT APPEAR DECREASED Sodium Level 133mmol/L Potassium Level 3.3mmol/L Chloride Level 102mmol/L Carbon Dioxide Level 25mmol/L Anion Gap 9 Blood Urea Nitrogen 10mg/dl Creatinine 0.65mg/dl Glucose Level 80mg/dl Calcium Level 8.9mg/dl Total Bilirubin 0.9mg/dl Direct Bilirubin 0.00mg/dl Indirect Bilirubin 0.9mg/dl Aspartate Amino Transf (AST/SGOT) 19IU/L Alanine Aminotransferase (ALT/SGPT) 27IU/L Alkaline Phosphatase 92IU/L Total Protein 7.7g/dl Albumin 4.2g/dl Globulin 3.50g/dl Albumin/Globulin Ratio 1.20 Lipase 16U/L Urine Test NEGATIVE Urine Color ANNABELLE Urine Clarity CLEAR Urine pH 5.0 Urine Specific [place] 1.024 Urine Ketones NEGATIVEmg/dL Urine Nitrite NEGATIVEmg/dL Urine Bilirubin NEGATIVEmg/dL Urine Urobilinogen NEGATIVEmg/dL Urine Leukocyte Esterase NEGATIVELeu/ul Urine Microscopic RBC 0/HPF Urine Microscopic WBC 1/HPF Urine Mucus FEW/HPF Urine Hemoglobin 2+mg/dL Urine Glucose NEGATIVEmg/dL Urine Total Protein 1+mg/dl Current Medications Medications (Trade) Dose Ordered Sig/Mansi Route PRN Reason Start Time Stop Time Status Last Admin Dose Admin Sodium Chloride (NS) 1,000 ml @ 1,000 mls/hr Q1H STAT IV 01/07/17 14:06 01/07/17 15:05 DC 01/07/17 14:27 Acetaminophen (Tylenol Tab) 650 mg ONCE ONCE PO 01/07/17 14:30 01/07/17 14:31 DC 01/07/17 14:26 IV Flush 10 ml 10 ml STK-MED ONCE .ROUTE 01/07/17 15:18 01/07/17 15:19 DC 01/07/17 16:08 Sodium Chloride (NS) 100 ml @ ud STK-MED ONCE .ROUTE 01/07/17 15:18 01/07/17 15:19 DC 01/07/17 16:09 Iohexol (Omnipaque 300mg/ ml) 30 ml STK-MED ONCE .ROUTE 01/07/17 15:18 01/07/17 15:19 DC 01/07/17 16:08 Morphine Sulfate (morphine) 4 mg ONCE STAT IV 01/07/17 16:34 01/07/17 16:36 DC 01/07/17 16:48 Procedures/MDM This is a 31-year-old female patient with a past medical history of anemia, lupus, renal nodes syndrome, rheumatoid arthritis, splenic infarct presents to the ED complaining of left upper quadrant abdominal pain and fever. Patient has a fever of 101.9. Tylenol was ordered to further downtrend patient's temperature. Patient was further worked up with CBC, CMP, lipase, UA, urine , CT abdomen and pelvis with contrast. Patient's pain and symptoms have improved after treatment with 1 L normal saline, 4 mg IV morphine, Tylenol. CBC: No leukocytosis. No e/o of systemic infection. Hbg 8.9 CMP: No e/o severe acidosis, alkalosis, renal failure, diabetic ketoacidosis, liver disease Lipase within normal limits. Urine: No leukocyte esterase, no nitrites, no hematuria. Urine : Negative PROCEDURE: CT Abdomen and Pelvis with contrast. CLINICAL INDICATION: Abdominal pain, left-sided, history of splenic infarct TECHNIQUE: CT scan of the abdomen and pelvis with contrast was performed on a multi-detector high-resolution CT scanner. The patient was scanned following the intravenous administration of 100 cc of Omnipaque 300. Coronal and sagittal reformatted images were obtained from the axial source images. Images were reviewed on a high-resolution PACS workstation. The total exam CTDI equals 18.39 mGy and the total exam DLP equals 1089.77 mGy-cm. One or more the following dose reduction techniques were utilized: Automated exposure control, adjustment of the mA and / or kV according to patient's size, or use of iterative reconstruction technique. COMPARISON: Right upper quadrant abdominal ultrasound of 12/05/[address] abdomen with contrast of 04/11/[address] abdomen and pelvis without contrast of 02/18/2016 FINDINGS: Minimal dependent atelectasis in posterior lower lungs. Marked splenomegaly is again seen with the vertical length of the spleen 19.9 cm not significantly changed compared to the 04/11/2016 study. Multiple wedge-shaped areas of decreased density are again seen in the spleen consistent with splenic infarcts with a new approximate 5 x 3.6 cm infarct in the anterior mid to lower spleen and interval decrease in size of additional anterior mid splenic infarct compared to previous study. Small amount of perisplenic ascitic fluid is again seen. Small amount of perihepatic ascitic fluid is again seen. The length of the liver equals 16.8 cm, decrease in size compared to previous study. There is appearance of minimal pericholecystic fluid which could be secondary to ascites decreased compared to previous study. No biliary dilatation is seen. Small pericardial effusion decreased compared to previous study. No abnormality is seen in the pancreas, adrenals or right kidney. There is impression on the anterolateral upper to mid left kidney by the enlarged spleen. No abdominal aortic aneurysm is seen. There is impression upper greater curvature of the stomach by the enlarged spleen. In the pelvis there is a small amount to moderate amount of ascitic fluid increased compared to the 02/18/2016 CT. No definite abnormality of the uterus or adnexal regions as seen on CT. No definite abnormality of the colon is seen. No dilated small bowel loops are seen. There is the suggestion of an unremarkable appendix. No enlarged lymph nodes are seen in the abdomen or pelvis. No pneumoperitoneum is seen. Small scattered likely bone islands again seen. Minimal osteoarthrosis at hips. Degenerative changes at sacroiliac joints. Mild degenerative changes in lumbar spine. IMPRESSION: Marked splenomegaly again seen. Consistent multiple splenic infarcts with a new approximate 5 x 3.6 cm infarct in the anterior mid to lower spleen and interval decrease in size of additional anterior mid splenic infarct compared to previous study. Small to moderate amount of ascites. Please see above. Patient has a marked hepatomegaly seen on CT again. There is a consistent multiple splenic infarcts with approximate new 53.6 cm infarct in the anterior mid to lower spleen region with interval decrease the size of additional anterior mid splenic infarct compared to the previous study. Patient has a small to moderate amount of ascites. This case was discussed with my supervising physician, Dr. Olivares who agreed to admit the patient at this time. Patient agreed to be admitted. Her questions were answered. The hospitalist on-call was consulted, Dr. Vargas. We also consulted Dr. Kelley, general surgeon extrusion process operator, who will see patient when patient is admitted for a surgical consultation. Patient is hemodynamically stable. Departure Diagnosis: Primary Impression: Splenic infarct Condition: Fair ISHA DOMINGUEZ PA-C Jan 07, 2017 18:46 and interval decrease in size of additional anterior mid splenic infarct compared to previous study. Small amount of perisplenic ascitic fluid is again seen. Small amount of perihepatic ascitic fluid is again seen. The length of the liver equals 16.8 cm, decrease in size compared to previous study. There is appearance of minimal pericholecystic fluid which could be secondary to ascites decreased compared to previous study. No biliary dilatation is seen. Small pericardial effusion decreased compared to previous study. No abnormality is seen in the pancreas, adrenals or right kidney. There is impression on the anterolateral upper to mid left kidney by the enlarged spleen. No abdominal aortic aneurysm is seen. There is impression upper greater curvature of the stomach by the enlarged spleen. In the pelvis there is a small amount to moderate amount of ascitic fluid increased compared to the 02/18/2016 CT. No definite abnormality of the uterus or adnexal regions as seen on CT. No definite abnormality of the colon is seen. No dilated small bowel loops are seen. There is the suggestion of an unremarkable appendix. No enlarged lymph nodes are seen in the abdomen or pelvis. No pneumoperitoneum is seen. Small scattered likely bone islands again seen. Minimal osteoarthrosis at hips. Degenerative changes at sacroiliac joints. Mild degenerative changes in lumbar spine. IMPRESSION: Marked splenomegaly again seen. Consistent multiple splenic infarcts with a new approximate 5 x 3.6 cm infarct in the anterior mid to lower spleen and interval decrease in size of additional anterior mid splenic infarct compared to previous study. Small to moderate amount of ascites. Please see above. Patient has a marked hepatomegaly seen on CT again. There is a consistent multiple splenic infarcts with approximate new 53.6 cm infarct in the anterior mid to lower spleen region with interval decrease the size of additional anterior mid splenic infarct compared to the previous study. Patient has a small to moderate amount of ascites. This case was discussed with my supervising physician, Dr. Olivares who agreed to admit the patient at this time. Patient agreed to be admitted. Her questions were answered. The hospitalist on-call was consulted, Dr. Vargas. We also consulted Dr. Bunch general surgeon extrusion process operator. Who will see patient when patient is admitted. Departure Diagnosis: Primary Impression: Splenic infarct Condition: ISHA Sanchez PA-C Jan 07, 2017 18:46
[2017-01-07 19:36] VITALS: TEMP 98.8
[2017-01-07 20:13] VITALS: BP 136/65; PULSE 71; RESP 18
[2017-01-07] MEDS: morphine 4 MG/ML VIAL IV PRN (20:45)
--- NOTE | 2017-01-07 20:58 | CONS ---
Date/Time of Note Date/Time of Note DATE: 01/07/17 TIME: 20:58 Assessment/Plan Assessment/Plan Chief Complaint/Hosp Course 31-year-old female with left upper quadrant abdominal pain, splenic infarct * In the absence of complications such as hemorrhage, abscess, pseudocyst, hemodynamic instability, etc. would again manage conservatively and nonoperatively. * Would keep n.p.o. and on bedrest for now * Patient chronically on steroids, would consider stress dose. * Recommend environmental remediation specialist consultation * Thrombocytopenia. Patient at risk for bleeding. Consider platelet transfusion. Patient apparently responded to plasmapheresis last time. She may need this again. The above was discussed with the patient and the primary care team in detail. Further recommendations will be made based on patient's clinical course. Problems: Consultation Date/Type/Reason Admit Date/Time Date of Consultation: Jan 07, 2017 Type of Consultation: GENERAL SURGERY Reason for Consultation Abdominal pain Hx of Present Illness The patient is an obese 31-year-old female with a past medical history of anemia , systemic lupus erythematosus, rheumatoid arthritis, Raynaud's disease, hypertension who presents to the ED complaining of left upper quadrant abdominal pain that started 3 days ago. The patient has a history of prior splenic infarct for which she was admitted 1 year ago. At that time she underwent conservative management and plasmapheresis. The pain is since been intermittent and chronic, but mild in nature. She reports some nausea and bloating after oral intake. She denies any chest pain, shortness of breath, change in bowel habits. On arrival to the emergency room she was found to be febrile. CT scan of the abdomen and pelvis which is done showed a new splenic infarct. A 14 point review of systems was conducted and was negative except for that which is mentioned in HPI Past Medical History As in HPI Past Surgical History Past Surgical Hx: no surgical history Social History Smoking Status: Never smoker Exam/Review of Systems Vital Signs Vitals Vital Signs Date Time Temp Pulse Resp B/P Pulse Ox O2 Delivery O2 Flow Rate FiO2 01/07/17 20:13 100.3 71 18 136/65 93 Room Air Exam GENERAL: Awake, alert, oriented x 3. No acute distress. SKIN: No jaundice. HEENT: PERRLA, EOMI, No Scleral Icterus NECK: Supple without JVD CARDIOVASCULAR: S1S2, regular rate and rhythm. No murmurs appreciated. RESPIRATORY: Clear to auscultation bilaterally. ABDOMEN: Soft, bowel sounds present, nondistended, there is tenderness in the left upper quadrant extending to the left flank. There is no rebound, guarding or evidence of peritonitis. EXTREMITIES: Deformities of bilateral hands consistent with chronic rheumatoid arthritis. Amputation of the right index finger. NEUROLOGIC: Cranial nerves II-XII are intact. Sensation is intact grossly. Results Result Diagram: 01/07/17 1420 01/07/17 1420 Results 24 hrs Laboratory Tests Test 01/07/17 14:20 01/07/17 15:29 White Blood Count 7.2 Red Blood Count 4.00 L Hemoglobin 8.9 L Hematocrit 32.3 L Mean Corpuscular Volume 80.8 L Mean Corpuscular Hemoglobin 22.3 L Mean Corpuscular Hemoglobin Concent 27.6 L Red Cell Distribution Width 19.9 #H Platelet Count 57 #L Mean Platelet Volume Neutrophils % 76.0 Band Neutrophils % 2.0 Lymphocytes % 14.0 L Monocytes % 8.0 Neutrophils # 5.5 Lymphocytes # 1.0 Monocytes # 0.6 Platelet Estimate PLT APPEAR DECREASED Sodium Level 133 L Potassium Level 3.3 L Chloride Level 102 Carbon Dioxide Level 25 Anion Gap 9 Blood Urea Nitrogen 10 Creatinine 0.65 Glucose Level 80 Calcium Level 8.9 Total Bilirubin 0.9 Direct Bilirubin 0.00 Indirect Bilirubin 0.9 Aspartate Amino Transf (AST/SGOT) 19 Alanine Aminotransferase (ALT/SGPT) 27 Alkaline Phosphatase 92 Total Protein 7.7 Albumin 4.2 Globulin 3.50 H Albumin/Globulin Ratio 1.20 Lipase 16 L Urine Color ANNABELLE Urine Clarity CLEAR Urine pH 5.0 Urine Specific [place] 1.024 Urine Ketones NEGATIVE Urine Nitrite NEGATIVE Urine Bilirubin NEGATIVE Urine Urobilinogen NEGATIVE Urine Leukocyte Esterase NEGATIVE Urine Microscopic RBC 0 Urine Microscopic WBC 1 Urine Mucus FEW A Urine Hemoglobin 2+ H Urine Glucose NEGATIVE Urine Total Protein 1+ H Medications Medications Current Medications Morphine Sulfate (morphine) 4 mg Q4 PRN IV PAIN Last administered on 01/07/17t 20:45; Admin Dose 4 MG; Start 01/07/17 at 21:00 Procedures Procedures PROCEDURE: CT Abdomen and Pelvis with contrast. CLINICAL INDICATION: Abdominal pain, left-sided, history of splenic infarct TECHNIQUE: CT scan of the abdomen and pelvis with contrast was performed on a multi-detector high-resolution CT scanner. The patient was scanned following the intravenous administration of 100 cc of Omnipaque 300. Coronal and sagittal reformatted images were obtained from the axial source images. Images were reviewed on a high-resolution PACS workstation. The total exam CTDI equals 18.39 mGy and the total exam DLP equals 1089.77 mGy-cm. One or more the following dose reduction techniques were utilized: Automated exposure control, adjustment of the mA and / or kV according to patient's size, or use of iterative reconstruction technique. COMPARISON: Right upper quadrant abdominal ultrasound of 12/05/[address] abdomen with contrast of 04/11/[address] abdomen and pelvis without contrast of 02/18/2016 FINDINGS: Minimal dependent atelectasis in posterior lower lungs. Marked splenomegaly is again seen with the vertical length of the spleen 19.9 cm not significantly changed compared to the 04/11/2016 study. Multiple wedge-shaped areas of decreased density are again seen in the spleen consistent with splenic infarcts with a new approximate 5 x 3.6 cm infarct in the anterior mid to lower spleen and interval decrease in size of additional anterior mid splenic infarct compared to previous study. Small amount of perisplenic ascitic fluid is again seen. Small amount of perihepatic ascitic fluid is again seen. The length of the liver equals 16.8 cm, decrease in size compared to previous study. There is appearance of minimal pericholecystic fluid which could be secondary to ascites decreased compared to previous study. No biliary dilatation is seen. Small pericardial effusion decreased compared to previous study. No abnormality is seen in the pancreas, adrenals or right kidney. There is impression on the anterolateral upper to mid left kidney by the enlarged spleen. No abdominal aortic aneurysm is seen. There is impression upper greater curvature of the stomach by the enlarged spleen. In the pelvis there is a small amount to moderate amount of ascitic fluid increased compared to the 02/18/2016 CT. No definite abnormality of the uterus or adnexal regions as seen on CT. No definite abnormality of the colon is seen. No dilated small bowel loops are seen. There is the suggestion of an unremarkable appendix. No enlarged lymph nodes are seen in the abdomen or pelvis. No pneumoperitoneum is seen. Small scattered likely bone islands again seen. Minimal osteoarthrosis at hips. Degenerative changes at sacroiliac joints. Mild degenerative changes in lumbar spine. IMPRESSION: Marked splenomegaly again seen. Consistent multiple splenic infarcts with a new approximate 5 x 3.6 cm infarct in the anterior mid to lower spleen and interval decrease in size of additional anterior mid splenic infarct compared to previous study. Small to moderate amount of ascites. Please see above. RPTAT: HJES .Beni Adames MD, MD Date Time Electronically viewed and signed by .Beni Adames MD, MD on 01/07/2017 16:49 .S/ CC: ISHA DOMINGUEZ PA-C, MICHAEL A. MD Jan 07, 2017 20:58
--- NOTE | 2017-01-07 22:23 | HP ---
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 At the current time we will continue to monitor her conservatively. Appreciate surgery's input. Will monitor movement every 6 hours. Provide IV narcotic pain control. Monitor for hemodynamic instability. We will keep the patient n.p.o. and on bedrest. Patient may benefit from plasmapheresis however we will defer to hematology for further recommendation. If patient becomes hemodynamically unstable patient may need to have a emergent splenectomy. Repeat CAT scan as per the discretion of surgery. #2 Anemia of chronic disease: We will continue to monitor H&H every 6 hours. Will consult hematology #3 thrombocytopenia: Likely secondary to patient underlying autoimmune disorders. Will consult hematology for further recommendations. Consider platelet transfusion if indicated. #4 SLE: Patient is currently on maintenance dose of prednisone which was increased over the past month or so. Will continue current dose. Stress dose steroids recommended by surgery, we will consider this. Continue home medications. #5 rheumatoid arthritis: Stable continue home medications. #6 hypertension: Continue home medications. #7 DVT and GI prophylaxis: SCDs, Protonix Further treatment strategy will be implemented as per the clinical course Problems: HPI/ROS Admit Date/Time Admit Date/Time Hx of Present Illness Chief complaint: Left abdominal pain This is a 31-year-old female patient with a past medical history of anemia, systemic lupus erythematosus, rheumatoid arthritis, Raynaud's disease, hypertension presents to the ED complaining of a fever and left upper quadrant abdominal pain that started intermittently for the last few days. States that this pain is chronic however because it has worsened it brought her to the ER. States that the fever started earlier today. States that she is nauseous and had a few episodes of nonbilious nonbloody vomiting. 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 Denies any chest pain, shortness of breath, diarrhea, constipation.\ Allergies: Vancomycin Medications: See MAR ROS Const: As per HPI Eyes : No pain discharge or redness or change in visual acuity ENT: No pain, sore throat, congestion, congestion, dysphagia or discharge Respiratory: No shortness of breath, cough, sputum, wheezing, or pleuritic pain Cardiovascular: No chest pain, palpitation, PND, or edema GI : As per HPI Genitourinary: No dysuria, hematuria, flank pain , discharge or CVA tenderness Musculoskeletal: No joint pain, back pain, neck pain, restricted range of motion in neck or joints Skin: No rash, bruising or hives Neuro: No headache, dizziness, syncope, seizure, focal weakness Endocrine: No polyuria, polydipsia, temperature intolerance Psych: No hallucination, depression, anxiety or suicidal ideation PMH/Family/Social Past Medical History anemia, systemic lupus erythematosus, rheumatoid arthritis, Raynaud's disease, hypertension, Past Surgical History Past Surgical Hx: no surgical history Family History Significant Family History: no pertinent family hx Social History Alcohol Use: none Smoking Status: Never smoker Drug Use: none Exam/Review of Systems Vital Signs Vitals Vital Signs Date Time Temp Pulse Resp B/P Pulse Ox O2 Delivery O2 Flow Rate FiO2 01/07/17 20:13 100.3 71 18 136/65 93 Room Air Exam Exam General: Patient is well-developed well-nourished The patient is alert oriented -3 lying comfortably in bed. HEENT: Atraumatic, normocephalic. The pupils are equal, round and reactive. Extraocular motor are intact Neck: Supple with full range of motion. No rigidity or meningismus Chest: Nontender Lungs: Clear to auscultation bilaterally no crackles rales or wheezing Heart: Normal S1-S2, Regular rhythm and rate. No murmur, S3, or S4 Abdomen: Left upper quadrant tenderness to palpation Extremities: Normal to inspection, no edema no cyanosis Neurologic: Normal mental status, speech normal, cranial nerves II through XII are intact, motor and sensory are intact, no focal weakness Additional Comments PROCEDURE: CT Abdomen and Pelvis with contrast. CLINICAL INDICATION: Abdominal pain, left-sided, history of splenic infarct TECHNIQUE: CT scan of the abdomen and pelvis with contrast was performed on a multi-detector high-resolution CT scanner. The patient was scanned following the intravenous administration of 100 cc of Omnipaque 300. Coronal and sagittal reformatted images were obtained from the axial source images. Images were reviewed on a high-resolution PACS workstation. The total exam CTDI equals 18.39 mGy and the total exam DLP equals 1089.77 mGy-cm. One or more the following dose reduction techniques were utilized: Automated exposure control, adjustment of the mA and / or kV according to patient's size, or use of iterative reconstruction technique. COMPARISON: Right upper quadrant abdominal ultrasound of 12/05/[address] abdomen with contrast of 04/11/[address] abdomen and pelvis without contrast of 02/18/2016 FINDINGS: Minimal dependent atelectasis in posterior lower lungs. Marked splenomegaly is again seen with the vertical length of the spleen 19.9 cm not significantly changed compared to the 04/11/2016 study. Multiple wedge-shaped areas of decreased density are again seen in the spleen consistent with splenic infarcts with a new approximate 5 x 3.6 cm infarct in the anterior mid to lower spleen and interval decrease in size of additional anterior mid splenic infarct compared to previous study. Small amount of perisplenic ascitic fluid is again seen. Small amount of perihepatic ascitic fluid is again seen. The length of the liver equals 16.8 cm, decrease in size compared to previous study. There is appearance of minimal pericholecystic fluid which could be secondary to ascites decreased compared to previous study. No biliary dilatation is seen. Small pericardial effusion decreased compared to previous study. No abnormality is seen in the pancreas, adrenals or right kidney. There is impression on the anterolateral upper to mid left kidney by the enlarged spleen. No abdominal aortic aneurysm is seen. There is impression upper greater curvature of the stomach by the enlarged spleen. In the pelvis there is a small amount to moderate amount of ascitic fluid increased compared to the 02/18/2016 CT. No definite abnormality of the uterus or adnexal regions as seen on CT. No definite abnormality of the colon is seen. No dilated small bowel loops are seen. There is the suggestion of an unremarkable appendix. No enlarged lymph nodes are seen in the abdomen or pelvis. No pneumoperitoneum is seen. Small scattered likely bone islands again seen. Minimal osteoarthrosis at hips. Degenerative changes at sacroiliac joints. Mild degenerative changes in lumbar spine. IMPRESSION: Marked splenomegaly again seen. Consistent multiple splenic infarcts with a new approximate 5 x 3.6 cm infarct in the anterior mid to lower spleen and interval decrease in size of additional anterior mid splenic infarct compared to previous study. Small to moderate amount of ascites. Please see above. RPTAT: HJES .Beni Adames MD, Date Time Electronically viewed and signed by .Beni Adames MD, on 01/07/2017 16:49 Labs Result Diagram: 01/07/17 1420 01/07/17 1420 Medications Medications Current Medications Morphine Sulfate (morphine) 4 mg Q4 PRN IV PAIN Last administered on 01/07/17t 20:45; Admin Dose 4 MG; Start 01/07/17 at 21:00 Ondansetron HCl (Zofran Inj) 4 mg Q6H PRN IV NAUSEA AND/OR VOMITING; Start at 21:30 EDISON DOUGLAS Jan 07, 2017 22:22
[2017-01-07] MEDS ORDERED: METOCLOPRAMIDE 10 MG INJ IV PRN (22:30)
[2017-01-07] MEDS ORDERED: ONDANSETRON 4 MG INJ IV PRN (22:30)
[2017-01-07] MEDS ORDERED: ACETAMINOPHEN 325 MG TAB PO PRN (22:30)
[2017-01-07] MEDS ORDERED: NACL 0.9% 3 ML SYG IV SCH (22:30)
[2017-01-07 23:27] VITALS: PULSE 105
[2017-01-07] MEDS: ONDANSETRON 4 MG INJ IV PRN (23:59)
[2017-01-08] VITALS (10 sets, daily range): BP systolic 116–132; BP diastolic 55–75; PULSE 91–105; RESP 17–20
[2017-01-08] MEDS: SOD CHLORIDE 0.9% 1,000 ML IV SCH ×2 (00:01→12:34)
[2017-01-08 01:23] LABS: ADD SCAN DIFF NO
[2017-01-08 01:41] LABS: ABNORMAL IP MESSAGE 1; BASOPHILS % 0.2 % (0.0-2.0); EOSINOPHILS % 0.3 % (0.0-7.0); HEMATOCRIT 29.7 % (37.0-47.0); HEMOGLOBIN 8.3 g/dl (12.0-16.0); LYMPHOCYTES # 0.9 10^3/ul (0.8-2.9); LYMPHOCYTES % 13.1 % (15.0-51.0); MEAN CORPUSCULAR HEMOGLOBIN 22.4 pg (29.0-33.0); MEAN CORPUSCULAR HGB CONC 27.9 g/dl (32.0-37.0); MEAN CORPUSCULAR VOLUME 80.3 fl (82.0-101.0); MONOCYTE # 0.6 10^3/ul (0.3-0.9); MONOCYTES % 9.4 % (0.0-11.0); NEUTROPHILS % 76.4 % (39.0-77.0); PLATELET COUNT 65 10^3/UL (140-415); RED CELL DISTRIBUTION WIDTH 19.9 % (11.5-14.5); WHITE BLOOD COUNT 6.5 10^3/ul (4.8-10.8)
[2017-01-08 02:11] LABS: CALCIUM 8.1 mg/dl (8.4-10.2); CREATININE 0.63 mg/dl (0.44-1.00); POTASSIUM 3.1 mmol/L (3.5-5.1)
[2017-01-08] MEDS: HYDROmorphONE 1 MG/ML SYG IV PRN ×5 (05:36→23:16)
[2017-01-08] MEDS: PANTOPRAZOLE 40 MG INJ IV SCH (06:37)
[2017-01-08 07:03] LABS: ADD SCAN DIFF NO
[2017-01-08] MEDS ORDERED: PANTOPRAZOLE (EC) 40 MG TAB PO SCH (07:05)
[2017-01-08 07:19] LABS: ABNORMAL IP MESSAGE 1; BASOPHILS % 0.5 % (0.0-2.0); EOSINOPHILS % 0.3 % (0.0-7.0); HEMATOCRIT 29.5 % (37.0-47.0); HEMOGLOBIN 8.3 g/dl (12.0-16.0); LYMPHOCYTES # 0.8 10^3/ul (0.8-2.9); LYMPHOCYTES % 13.6 % (15.0-51.0); MEAN CORPUSCULAR HEMOGLOBIN 22.8 pg (29.0-33.0); MEAN CORPUSCULAR HGB CONC 28.1 g/dl (32.0-37.0); MONOCYTE # 0.6 10^3/ul (0.3-0.9); MONOCYTES % 9.1 % (0.0-11.0); NEUTROPHIL # 4.7 10^3/ul (1.6-7.5); RED BLOOD COUNT 3.64 10^6/ul (4.20-5.40); RED CELL DISTRIBUTION WIDTH 19.5 % (11.5-14.5); WHITE BLOOD COUNT 6.2 10^3/ul (4.8-10.8)
[2017-01-08 07:40] LABS: PLATELET COUNT 50 10^3/UL (140-415)
[2017-01-08 07:43] LABS: ALBUMIN 3.4 g/dl (3.3-4.9); ALBUMIN/GLOBULIN RATIO 1.03; BILIRUBIN,INDIRECT 1.2 mg/dl (0-1.1); BILIRUBIN,TOTAL 1.2 mg/dl (0.2-1.3); CALCIUM 8.1 mg/dl (8.4-10.2); CREATININE 0.68 mg/dl (0.44-1.00); TOTAL PROTEIN 6.7 g/dl (6.1-8.1)
[2017-01-08] MEDS: predniSONE 10 MG TAB PO SCH ×2 (08:25→20:57)
[2017-01-08] MEDS: HYDROXYCHLOROQUINE 200 MG TAB PO SCH ×2 (08:25→20:57)
[2017-01-08] MEDS: AMLODIPINE 5 MG TAB PO SCH ×2 (08:25→20:56)
[2017-01-08] MEDS: AZATHIOPRINE 50 MG TAB PO SCH ×2 (08:25→20:58)
[2017-01-08] MEDS: ONDANSETRON 4 MG INJ IV PRN ×2 (08:27→23:00)
--- NOTE | 2017-01-08 08:48 | HP ---
Date/Time of Note Date/Time of Note DATE: 01/08/17 TIME: 08:44 Assessment/Plan Lines/Catheters IV C[facility]ter Type (from [facility]): Saline Lock Assessment/Plan Chief Complaint/Hosp Course Created in error Problems: HPI/ROS Admit Date/Time Admit Date/Time PMH/Family/Social Past Medical History Exam/Review of Systems Vital Signs Vitals Vital Signs Date Time Temp Pulse Resp B/P Pulse Ox O2 Delivery O2 Flow Rate FiO2 01/08/17 07:20 99.2 90 18 119/55 93 01/07/17 20:13 Room Air Intake and Output 01/07/17 01/07/17 01/08/17 15:00 23:00 07:00 Intake Total 200 ml Output Total 200 ml Balance 0 ml Labs Result Diagram: 01/08/17 0610 01/08/17 0610 Medications Medications Current Medications Morphine Sulfate (morphine) 4 mg Q4 PRN IV PAIN Last administered on 01/07/17 20:45; Admin Dose 4 MG; Start 01/07/17 at 21:00 Ondansetron HCl 4 mg 4 mg Q6H PRN IV NAUSEA AND/OR VOMITING Last administered on 01/08/17 08:27; Admin Dose 4 MG; Start 01/07/17 at 21:30 Sodium Chloride (NS) 1,000 ml @ 70 mls/hr [id number] IV Last administered on 01/08 00:01; Admin Dose 70 MLS/HR; Start 01/07/17 at 22:16 Ondansetron HCl (Zofran Inj) 4 mg Q6H PRN IV NAUSEA AND/OR VOMITING; Start at 22:30 Metoclopramide HCl (Reglan) 10 mg Q6H PRN IV NAUSEA AND/OR VOMITING; Start at 22:30 Acetaminophen (Tylenol Tab) 650 mg Q6H PRN PO PAIN LEVEL 1-3 OR FEVER Last administered on 01/08/17 05:37; Admin Dose 650 MG; Start 01/07/17 at 22:30 Hydromorphone HCl (Dilaudid) 1 mg Q3 PRN IV PAIN LEVEL 7-10 Last administered on 01/08/17 05:36; Admin Dose 1 MG; Start 01/07/17 at 22:30 Pantoprazole (Protonix Iv) 40 mg DAILY@06 IV Last administered on 01/08/17 06: 37; Admin Dose 40 MG; Start 01/08/17 at 06:00 Amlodipine Besylate (Norvasc) 2.5 mg BID PO Last administered on 01/08/17 08: 25; Admin Dose 2.5 MG; Start 01/08/17 at 09:00 Azathioprine (Imuran) 50 mg BID PO Last administered on 01/08/17 08:25; Admin Dose 50 MG; Start 01/08/17 at 09:00 Hydroxychloroquine Sulfate (Plaquenil) 200 mg BID PO Last administered on 08:25; Admin Dose 200 MG; Start 01/08/17 at 09:00 Prednisone (Prednisone) 10 mg BID PO Last administered on 01/08/17 08:25; Admin Dose 10 MG; Start 01/08/17 at 09:00 EDISON DOUGLAS Jan 08, 2017 08:47 Medications Medications Current Medications Morphine Sulfate (morphine) 4 mg Q4 PRN IV PAIN Last administered on 01/07/17 20:45; Admin Dose 4 MG; Start 01/07/17 at 21:00 Ondansetron HCl 4 mg 4 mg Q6H PRN IV NAUSEA AND/OR VOMITING Last administered on 01/08/17 08:27; Admin Dose 4 MG; Start 01/07/17 at 21:30 Sodium Chloride (NS) 1,000 ml @ 70 mls/hr [id number] IV Last administered on 01/08 00:01; Admin Dose 70 MLS/HR; Start 01/07/17 at 22:16 Ondansetron HCl (Zofran Inj) 4 mg Q6H PRN IV NAUSEA AND/OR VOMITING; Start at 22:30 Metoclopramide HCl (Reglan) 10 mg Q6H PRN IV NAUSEA AND/OR VOMITING; Start at 22:30 Acetaminophen (Tylenol Tab) 650 mg Q6H PRN PO PAIN LEVEL 1-3 OR FEVER Last administered on 01/08/17 05:37; Admin Dose 650 MG; Start 01/07/17 at 22:30 Hydromorphone HCl (Dilaudid) 1 mg Q3 PRN IV PAIN LEVEL 7-10 Last administered on 01/08/17 05:36; Admin Dose 1 MG; Start 01/07/17 at 22:30 Pantoprazole (Protonix Iv) 40 mg DAILY@06 IV Last administered on 01/08/17 06: 37; Admin Dose 40 MG; Start 01/08/17 at 06:00 Amlodipine Besylate (Norvasc) 2.5 mg BID PO Last administered on 01/08/17 08: 25; Admin Dose 2.5 MG; Start 01/08/17 at 09:00 Azathioprine (Imuran) 50 mg BID PO Last administered on 01/08/17 08:25; Admin Dose 50 MG; Start 01/08/17 at 09:00 Hydroxychloroquine Sulfate (Plaquenil) 200 mg BID PO Last administered on 08:25; Admin Dose 200 MG; Start 01/08/17 at 09:00 Prednisone (Prednisone) 10 mg BID PO Last administered on 01/08/17 08:25; Admin Dose 10 MG; Start 01/08/17 at 09:00 EDISON DOUGLAS Jan 08, 2017 08:47
[2017-01-08] MEDS: POTASSIUM CHLORIDE 250 ML IVPB SCH ×2 (09:25→13:55)
[2017-01-08 12:25] LABS: ADD SCAN DIFF NO
[2017-01-08 12:35] LABS: ABNORMAL IP MESSAGE 1; BASOPHILS % 0.1 % (0.0-2.0); EOSINOPHILS % 0.1 % (0.0-7.0); HEMOGLOBIN 8.5 g/dl (12.0-16.0); LYMPHOCYTES # 0.4 10^3/ul (0.8-2.9); LYMPHOCYTES % 5.1 % (15.0-51.0); MEAN CORPUSCULAR HEMOGLOBIN 22.8 pg (29.0-33.0); MEAN CORPUSCULAR HGB CONC 28.3 g/dl (32.0-37.0); MEAN CORPUSCULAR VOLUME 80.4 fl (82.0-101.0); MONOCYTE # 0.4 10^3/ul (0.3-0.9); MONOCYTES % 4.8 % (0.0-11.0); NEUTROPHIL # 6.5 10^3/ul (1.6-7.5); NEUTROPHILS % 89.3 % (39.0-77.0); RED BLOOD COUNT 3.73 10^6/ul (4.20-5.40); RED CELL DISTRIBUTION WIDTH 19.8 % (11.5-14.5); WHITE BLOOD COUNT 7.2 10^3/ul (4.8-10.8)
[2017-01-08 12:37] LABS: PLATELET COUNT 52 10^3/UL (140-415)
--- NOTE | 2017-01-08 15:06 | PN ---
Date/Time of Note Date/Time of Note DATE: 01/08/17 TIME: 15:04 Assessment/Plan Lines/Catheters IV [facility]ter Type (from [facility]): Saline Lock Assessment/Plan Assessment/Plan 31-year-old female with left upper quadrant abdominal pain, splenic infarct * In the absence of complications such as hemorrhage, abscess, pseudocyst, hemodynamic instability, etc. would again manage conservatively and nonoperatively. * Hemoglobin and platelets low, but stable. * Would keep n.p.o. and on bedrest for now. If remains stable can advance in a.m. 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 Patient at risk for bleeding. Consider platelet transfusion. Patient apparently responded to plasmapheresis last time. She may need this again. The above was discussed with the patient and the primary care team in detail. Further recommendations will be made based on patient's clinical course. Subjective 24 Hr Interval Summary Pain is a little better. Occasional nausea but no vomiting. Denies dizziness, chest pain or shortness of breath. Afebrile. Exam/Review of Systems Vital Signs Vitals Vital Signs Date Time Temp Pulse Resp B/P Pulse Ox O2 Delivery O2 Flow Rate FiO2 01/08/17 12:00 100 01/08/17 11:43 98.5 20 116/62 95 01/07/17 20:13 Room Air Intake and Output 01/07/17 01/07/17 01/08/17 15:00 23:00 07:00 Intake Total 200 ml Output Total 200 ml Balance 0 ml Exam Free Text/Dictation GENERAL: Awake, alert, oriented x 3. No acute distress. CARDIOVASCULAR: S1S2, regular rate and rhythm. No murmurs appreciated. RESPIRATORY: Clear to auscultation bilaterally. ABDOMEN: Soft, bowel sounds present, nondistended, there is tenderness in the left upper quadrant extending to the left flank. There is no rebound, guarding or evidence of peritonitis. EXTREMITIES: Deformities of bilateral hands consistent with chronic rheumatoid arthritis. Amputation of the right index finger. Results Result Diagram: 01/08/17 1213 01/08/17 0610 TITI VILLALTA MD Jan 08, 2017 15:05
--- NOTE | 2017-01-08 15:46 | PN ---
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 At the current time we will continue to monitor her conservatively. Appreciate surgery's input, rec is to treat with conservative care Pain control -Will keep the patient n.p.o. and on bedrest. Patient may benefit from plasmapheresis however we will defer to hematology for further recommendation. If patient becomes hemodynamically unstable patient may need to have a emergent splenectomy. Repeat CAT scan as per the discretion of surgery. #2 Anemia of chronic disease: We will continue to monitor H&H every 6 hours. -Hematology consulted #3 thrombocytopenia: Likely secondary to patient underlying autoimmune disorders -Hem consulted -Consider platelet transfusion if indicated. #4 SLE: Patient is currently on maintenance dose of prednisone which was increased over the past month or so. Will continue current dose. Stress dose steroids recommended by surgery, we will consider this but currently pt is stable Continue home medications. #5 rheumatoid arthritis: Stable continue home medications. #6 hypertension: Continue home medications. #7 DVT and GI prophylaxis: SCDs, Protonix Problems: Subjective 24 Hr Interval Summary Gastrointestinal: pain Exam/Review of Systems Vital Signs Vitals Vital Signs Date Time Temp Pulse Resp B/P Pulse Ox O2 Delivery O2 Flow Rate FiO2 01/08/17 15:39 98.0 96 18 123/63 96 01/07/17 20:13 Room Air Intake and Output 01/07/17 01/07/17 01/08/17 15:00 23:00 07:00 Intake Total 200 ml Output Total 200 ml Balance 0 ml Exam Constitutional: alert Respiratory: clear to auscultation Cardiovascular: regular rate and rhythm Gastrointestinal: soft, tender, No distended Musculoskeletal: nl extremities to inspection Results Result Diagram: 01/08/17 1213 01/08/17 0610 Results 24 hrs Laboratory Tests Test 01/08/17 00:52 01/08/17 06:10 01/08/17 12:13 White Blood Count 6.5 6.2 7.2 Red Blood Count 3.70 L 3.64 L 3.73 L Hemoglobin 8.3 L 8.3 L 8.5 L Hematocrit 29.7 L 29.5 L 30.0 L Mean Corpuscular Volume 80.3 L 81.0 L 80.4 L Mean Corpuscular Hemoglobin 22.4 L 22.8 L 22.8 L Mean Corpuscular Hemoglobin Concent 27.9 L 28.1 L 28.3 L Red Cell Distribution Width 19.9 H 19.5 H 19.8 H Platelet Count 65 L 50 #L 52 L Mean Platelet Volume Neutrophils % 76.4 76.0 89.3 H Lymphocytes % 13.1 L 13.6 L 5.1 L Monocytes % 9.4 9.1 4.8 Eosinophils % 0.3 0.3 0.1 Basophils % 0.2 0.5 0.1 Nucleated Red Blood Cells % 0.0 0.0 0.0 Neutrophils # 5.0 4.7 6.5 Lymphocytes # 0.9 0.8 0.4 L Monocytes # 0.6 0.6 0.4 Eosinophils # 0.0 0.0 0.0 Basophils # 0.0 0.0 0.0 Nucleated Red Blood Cells # 0.0 0.0 0.0 Erythrocyte Sedimentation Rate 8 Sodium Level 130 L 131 L Potassium Level 3.1 L 3.0 L Chloride Level 102 103 Carbon Dioxide Level 24 22 Anion Gap 7 L 9 Blood Urea Nitrogen 10 10 Creatinine 0.63 0.68 Glucose Level 89 87 Calcium Level 8.1 L 8.1 L Total Bilirubin 1.2 Direct Bilirubin 0.00 Indirect Bilirubin 1.2 H Aspartate Amino Transf (AST/SGOT) 17 Alanine Aminotransferase (ALT/SGPT) 24 Alkaline Phosphatase 77 Total Protein 6.7 # Albumin 3.4 Globulin 3.30 H Albumin/Globulin Ratio 1.03 Medications Medications Current Medications Morphine Sulfate (morphine) 4 mg Q4 PRN IV PAIN Last administered on 01/07/17 20:45; Admin Dose 4 MG; Start 01/07/17 at 21:00 Ondansetron HCl 4 mg 4 mg Q6H PRN IV NAUSEA AND/OR VOMITING Last administered on 01/08/17 08:27; Admin Dose 4 MG; Start 01/07/17 at 21:30 Sodium Chloride (NS) 1,000 ml @ 70 mls/hr [id number] IV Last administered on 01/08 00:01; Admin Dose 70 MLS/HR; Start 01/07/17 at 22:16 Ondansetron HCl (Zofran Inj) 4 mg Q6H PRN IV NAUSEA AND/OR VOMITING; Start at 22:30 Metoclopramide HCl (Reglan) 10 mg Q6H PRN IV NAUSEA AND/OR VOMITING Last administered on 01/08/17 12:25; Admin Dose 10 MG; Start 01/07/17 at 22:30 Acetaminophen (Tylenol Tab) 650 mg Q6H PRN PO PAIN LEVEL 1-3 OR FEVER Last administered on 01/08/17 05:37; Admin Dose 650 MG; Start 01/07/17 at 22:30 Hydromorphone HCl (Dilaudid) 1 mg Q3 PRN IV PAIN LEVEL 7-10 Last administered on 01/08/17 12:25; Admin Dose 1 MG; Start 01/07/17 at 22:30 Pantoprazole (Protonix Iv) 40 mg DAILY@06 IV Last administered on 01/08/17 06: 37; Admin Dose 40 MG; Start 01/08/17 at 06:00 Amlodipine Besylate (Norvasc) 2.5 mg BID PO Last administered on 01/08/17 08: 25; Admin Dose 2.5 MG; Start 01/08/17 at 09:00 Azathioprine (Imuran) 50 mg BID PO Last administered on 01/08/17 08:25; Admin Dose 50 MG; Start 01/08/17 at 09:00 Hydroxychloroquine Sulfate (Plaquenil) 200 mg BID PO Last administered on 08:25; Admin Dose 200 MG; Start 01/08/17 at 09:00 Prednisone 10 mg 10 mg BID PO Last administered on 01/08/17 08:25; Admin Dose 10 MG; Start 01/08/17 at 09:00 Potassium Chloride (KCl 40 MEQ/250 ML NS) 250 ml @ 62.5 mls/hr Q4H IVPB Last administered on 01/08/17 13:55; Admin Dose 62.5 MLS/HR; Start 01/08/17 at 09:00 ; Stop 01/08/17 at 16:59 MARCIO BANKS Jan 08, 2017 15:46
--- NOTE | 2017-01-08 20:46 | CONS ---
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 At the current time we will continue to monitor her conservatively. Will monitor movement every 6 hours. Provide IV narcotic pain control. Monitor for hemodynamic instability. n.p.o. and on bedrest. patient may need to have a splenectomy. 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 thrombocytopenia: Likely secondary to patient underlying autoimmune disorders. Consider platelet transfusion if indicated. SLE: Patient is currently on maintenance dose of prednisone which was increased over the past month or so. Will continue current dose. Stress dose steroids recommended by surgery Continue home medications. rheumatoid arthritis: Stable continue home medications. hypertension: Continue home medications. DVT and GI prophylaxis: SCDs, Protonix Problems: Consultation Date/Type/Reason Admit Date/Time Jan 07, 2017 at 17:45 Initial Consult Date 01/07/17 Type of Consultation: hemeonc 24 HR Interval Summary Free Text/Dictation ALL NOTED PAIN CONTROLLED ON MEDS COUNT STABLE Exam/Review of Systems Vital Signs Vitals Vital Signs Date Time Temp Pulse Resp B/P Pulse Ox O2 Delivery O2 Flow Rate FiO2 01/08/17 20:08 101 01/08/17 15:39 98.0 18 123/63 96 01/07/17 20:13 Room Air Intake and Output 01/07/17 01/07/17 01/08/17 15:00 23:00 07:00 Intake Total 200 ml Output Total 200 ml Balance 0 ml Exam General: Patient is well-developed well-nourished The patient is alert oriented -3 lying comfortably in bed. HEENT: Atraumatic, normocephalic. The pupils are equal, round and reactive. Extraocular motor are intact Neck: Supple with full range of motion. No rigidity or meningismus Chest: Nontender Lungs: Clear to auscultation bilaterally no crackles rales or wheezing Heart: Normal S1-S2, Regular rhythm and rate. No murmur, S3, or S4 Abdomen: Left upper quadrant tenderness to palpation Extremities: Normal to inspection, no edema no cyanosis Neurologic: Normal mental status, speech normal, cranial nerves II through XII are intact, motor and sensory are intact, no focal weakness Results Result Diagram: 01/08/17 1213 01/08/17 0610 Results 24 hrs Laboratory Tests Test 01/08/17 00:52 01/08/17 06:10 01/08/17 12:13 White Blood Count 6.5 6.2 7.2 Red Blood Count 3.70 L 3.64 L 3.73 L Hemoglobin 8.3 L 8.3 L 8.5 L Hematocrit 29.7 L 29.5 L 30.0 L Mean Corpuscular Volume 80.3 L 81.0 L 80.4 L Mean Corpuscular Hemoglobin 22.4 L 22.8 L 22.8 L Mean Corpuscular Hemoglobin Concent 27.9 L 28.1 L 28.3 L Red Cell Distribution Width 19.9 H 19.5 H 19.8 H Platelet Count 65 L 50 #L 52 L Mean Platelet Volume Neutrophils % 76.4 76.0 89.3 H Lymphocytes % 13.1 L 13.6 L 5.1 L Monocytes % 9.4 9.1 4.8 Eosinophils % 0.3 0.3 0.1 Basophils % 0.2 0.5 0.1 Nucleated Red Blood Cells % 0.0 0.0 0.0 Neutrophils # 5.0 4.7 6.5 Lymphocytes # 0.9 0.8 0.4 L Monocytes # 0.6 0.6 0.4 Eosinophils # 0.0 0.0 0.0 Basophils # 0.0 0.0 0.0 Nucleated Red Blood Cells # 0.0 0.0 0.0 Erythrocyte Sedimentation Rate 8 Sodium Level 139 139 Potassium Level 3.1 L 3.0 L Chloride Level 102 103 Carbon Dioxide Level 24 22 Anion Gap 16 # 17 H Blood Urea Nitrogen 10 10 Creatinine 0.63 0.68 Glucose Level 89 87 Calcium Level 8.1 L 8.1 L Total Bilirubin 1.2 Direct Bilirubin 0.00 Indirect Bilirubin 1.2 H Aspartate Amino Transf (AST/SGOT) 17 Alanine Aminotransferase (ALT/SGPT) 24 Alkaline Phosphatase 77 Total Protein 6.7 # Albumin 3.4 Globulin 3.30 H Albumin/Globulin Ratio 1.03 Medications Medications Current Medications Morphine Sulfate (morphine) 4 mg Q4 PRN IV PAIN Last administered on 01/07/17t 20:45; Admin Dose 4 MG; Start 01/07/17 at 21:00 Ondansetron HCl 4 mg 4 mg Q6H PRN IV NAUSEA AND/OR VOMITING Last administered on 01/08/17 08:27; Admin Dose 4 MG; Start 01/07/17 at 21:30 Sodium Chloride (NS) 1,000 ml @ 70 mls/hr [id number] IV Last administered on 01/08 00:01; Admin Dose 70 MLS/HR; Start 01/07/17 at 22:16 Ondansetron HCl (Zofran Inj) 4 mg Q6H PRN IV NAUSEA AND/OR VOMITING; Start at 22:30 Metoclopramide HCl (Reglan) 10 mg Q6H PRN IV NAUSEA AND/OR VOMITING Last administered on 01/08/17 12:25; Admin Dose 10 MG; Start 01/07/17 at 22:30 Acetaminophen (Tylenol Tab) 650 mg Q6H PRN PO PAIN LEVEL 1-3 OR FEVER Last administered on 01/08/17 05:37; Admin Dose 650 MG; Start 01/07/17 at 22:30 Hydromorphone HCl (Dilaudid) 1 mg Q3 PRN IV PAIN LEVEL 7-10 Last administered on 01/08/17 18:44; Admin Dose 1 MG; Start 01/07/17 at 22:30 Pantoprazole (Protonix Iv) 40 mg DAILY@06 IV Last administered on 01/08/17 06: 37; Admin Dose 40 MG; Start 01/08/17 at 06:00 Amlodipine Besylate (Norvasc) 2.5 mg BID PO Last administered on 01/08/17 08: 25; Admin Dose 2.5 MG; Start 01/08/17 at 09:00 Azathioprine (Imuran) 50 mg BID PO Last administered on 01/08/17 08:25; Admin Dose 50 MG; Start 01/08/17 at 09:00 Hydroxychloroquine Sulfate (Plaquenil) 200 mg BID PO Last administered on 08:25; Admin Dose 200 MG; Start 01/08/17 at 09:00 Prednisone (Prednisone) 10 mg BID PO Last administered on 01/08/17 08:25; Admin Dose 10 MG; Start 01/08/17 at 09:00 JORDAN RAMÍREZ MD Jan 08, 2017 20:46
--- NOTE | 2017-01-08 20:46 | CONS ---
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 At the current time we will continue to monitor her conservatively. Will monitor movement every 6 hours. Provide IV narcotic pain control. Monitor for hemodynamic instability. n.p.o. and on bedrest. If patient becomes hemodynamically unstable patient may need to have a emergent splenectomy. Repeat CAT scan IF NEEDED Anemia of chronic disease: We will continue to monitor H&H every 6 hours. thrombocytopenia: Likely secondary to patient underlying autoimmune disorders. Consider platelet transfusion if indicated. SLE: Patient is currently on maintenance dose of prednisone which was increased over the past month or so. Will continue current dose. Stress dose steroids recommended by surgery Continue home medications. rheumatoid arthritis: Stable continue home medications. hypertension: Continue home medications. DVT and GI prophylaxis: SCDs, Protonix Problems: Consultation Date/Type/Reason Admit Date/Time Date of Consultation: Jan 07, 2017 Type of Consultation: [facility] Reason for Consultation SPLENIC INFARCTION Referring Provider: CHERYLE LEONARD Hx of Present Illness The patient is an obese 31-year-old female with a past medical history of anemia , systemic lupus erythematosus, rheumatoid arthritis, Raynaud's disease, hypertension who presents to the ED complaining of left upper quadrant abdominal pain that started 3 days ago. The patient has a history of prior splenic infarct for which she was admitted 1 year ago. At that time she underwent conservative management and plasmapheresis. The pain is since been intermittent and chronic, but mild in nature. She reports some nausea and bloating after oral intake. She denies any chest pain, shortness of breath, change in bowel habits. On arrival to the emergency room she was found to be febrile. CT scan of the abdomen and pelvis which is done showed a new splenic infarct. A 14 point review of systems was conducted and was negative except for that which is mentioned in HPI Initial Consultation Hx Past Medical History As in HPI Past Surgical History Past Surgical Hx: no surgical history Social History Smoking Status: Never smoker Gastrointestinal: pain Past Surgical History Past Surgical Hx: no surgical history Social History Alcohol Use: none Smoking Status: Never smoker Drug Use: none Exam/Review of Systems Vital Signs Vitals Vital Signs Date Time Temp Pulse Resp B/P Pulse Ox O2 Delivery O2 Flow Rate FiO2 01/07/17 20:13 100.3 71 18 136/65 93 Room Air Exam Exam GENERAL: Awake, alert, oriented x 3. No acute distress. SKIN: No jaundice. HEENT: PERRLA, EOMI, No Scleral Icterus NECK: Supple without JVD CARDIOVASCULAR: S1S2, regular rate and rhythm. No murmurs appreciated. RESPIRATORY: Clear to auscultation bilaterally. ABDOMEN: Soft, bowel sounds present, nondistended, there is tenderness in the left upper quadrant extending to the left flank. There is no rebound, guarding or evidence of peritonitis. EXTREMITIES: Deformities of bilateral hands consistent with chronic rheumatoid arthritis. Amputation of the right index finger. NEUROLOGIC: Cranial nerves II-XII are intact. Sensation is intact grossly. Results Laboratory Tests Test 01/07/17 14:20 01/07/17 15:29 White Blood Count 7.2 Red Blood Count 4.00 L Hemoglobin 8.9 L Hematocrit 32.3 L Mean Corpuscular Volume 80.8 L Mean Corpuscular Hemoglobin 22.3 L Mean Corpuscular Hemoglobin Concent 27.6 L Red Cell Distribution Width 19.9 #H Platelet Count 57 #L Mean Platelet Volume Neutrophils % 76.0 Band Neutrophils % 2.0 Lymphocytes % 14.0 L Monocytes % 8.0 Neutrophils # 5.5 Lymphocytes # 1.0 Monocytes # 0.6 Platelet Estimate PLT APPEAR DECREASED Sodium Level 133 L Potassium Level 3.3 L Chloride Level 102 Carbon Dioxide Level 25 Anion Gap 9 Blood Urea Nitrogen 10 Creatinine 0.65 Glucose Level 80 Calcium Level 8.9 Total Bilirubin 0.9 Direct Bilirubin 0.00 Indirect Bilirubin 0.9 Aspartate Amino Transf (AST/SGOT) 19 Alanine Aminotransferase (ALT/SGPT) 27 Alkaline Phosphatase 92 Total Protein 7.7 Albumin 4.2 Globulin 3.50 H Albumin/Globulin Ratio 1.20 Lipase 16 L Urine Color ANNABELLE Urine Clarity CLEAR Urine pH 5.0 Urine Specific [place] 1.024 Urine Ketones NEGATIVE Urine Nitrite NEGATIVE Urine Bilirubin NEGATIVE Urine Urobilinogen NEGATIVE Urine Leukocyte Esterase NEGATIVE Urine Microscopic RBC 0 Urine Microscopic WBC 1 Urine Mucus FEW A Urine Hemoglobin 2+ H Urine Glucose NEGATIVE Urine Total Protein 1+ H Medications Medications Current Medications Morphine Sulfate (morphine) 4 mg Q4 PRN IV PAIN Last administered on 01/07/17t 20:45; Admin Dose 4 MG; Start 01/07/17 at 21:00 Procedures Procedures PROCEDURE: CT Abdomen and Pelvis with contrast. CLINICAL INDICATION: Abdominal pain, left-sided, history of splenic infarct TECHNIQUE: CT scan of the abdomen and pelvis with contrast was performed on a multi-detector high-resolution CT scanner. The patient was scanned following the intravenous administration of 100 cc of Omnipaque 300. Coronal and sagittal reformatted images were obtained from the axial source images. Images were reviewed on a high-resolution PACS workstation. The total exam CTDI equals 18.39 mGy and the total exam DLP equals 1089.77 mGy-cm. One or more the following dose reduction techniques were utilized: Automated exposure control, adjustment of the mA and / or kV according to patient's size, or use of iterative reconstruction technique. COMPARISON: Right upper quadrant abdominal ultrasound of 12/05/[address] abdomen with contrast of 04/11/[address] abdomen and pelvis without contrast of 02/18/2016 FINDINGS: Minimal dependent atelectasis in posterior lower lungs. Marked splenomegaly is again seen with the vertical length of the spleen 19.9 cm not significantly changed compared to the 04/11/2016 study. Multiple wedge-shaped areas of decreased density are again seen in the spleen consistent with splenic infarcts with a new approximate 5 x 3.6 cm infarct in the anterior mid to lower spleen and interval decrease in size of additional anterior mid splenic infarct compared to previous study. Small amount of perisplenic ascitic fluid is again seen. Small amount of perihepatic ascitic fluid is again seen. The length of the liver equals 16.8 cm, decrease in size compared to previous study. There is appearance of minimal pericholecystic fluid which could be secondary to ascites decreased compared to previous study. No biliary dilatation is seen. Small pericardial effusion decreased compared to previous study. No abnormality is seen in the pancreas, adrenals or right kidney. There is impression on the anterolateral upper to mid left kidney by the enlarged spleen. No abdominal aortic aneurysm is seen. There is impression upper greater curvature of the stomach by the enlarged spleen. In the pelvis there is a small amount to moderate amount of ascitic fluid increased compared to the 02/18/2016 CT. No definite abnormality of the uterus or adnexal regions as seen on CT. No definite abnormality of the colon is seen. No dilated small bowel loops are seen. There is the suggestion of an unremarkable appendix. No enlarged lymph nodes are seen in the abdomen or pelvis. No pneumoperitoneum is seen. Small scattered likely bone islands again seen. Minimal osteoarthrosis at hips. Degenerative changes at sacroiliac joints. Mild degenerative changes in lumbar spine. IMPRESSION: Marked splenomegaly again seen. Consistent multiple splenic infarcts with a new approximate 5 x 3.6 cm infarct in the anterior mid to lower spleen and interval decrease in size of additional anterior mid splenic infarct compared to previous study. Small to moderate amount of ascites. Please see above. RPTAT: HJES .Beni Adames MD, MD Date Time Electronically viewed and signed by .Beni Adames MD, MD on 01/07/2017 16:49 Result Diagram: 01/08/17 1213 01/08/17 0610 Results 24 hrs Laboratory Tests Test 01/08/17 00:52 01/08/17 06:10 01/08/17 12:13 White Blood Count 6.5 6.2 7.2 Red Blood Count 3.70 L 3.64 L 3.73 L Hemoglobin 8.3 L 8.3 L 8.5 L Hematocrit 29.7 L 29.5 L 30.0 L Mean Corpuscular Volume 80.3 L 81.0 L 80.4 L Mean Corpuscular Hemoglobin 22.4 L 22.8 L 22.8 L Mean Corpuscular Hemoglobin Concent 27.9 L 28.1 L 28.3 L Red Cell Distribution Width 19.9 H 19.5 H 19.8 H Platelet Count 65 L 50 #L 52 L Mean Platelet Volume Neutrophils % 76.4 76.0 89.3 H Lymphocytes % 13.1 L 13.6 L 5.1 L Monocytes % 9.4 9.1 4.8 Eosinophils % 0.3 0.3 0.1 Basophils % 0.2 0.5 0.1 Nucleated Red Blood Cells % 0.0 0.0 0.0 Neutrophils # 5.0 4.7 6.5 Lymphocytes # 0.9 0.8 0.4 L Monocytes # 0.6 0.6 0.4 Eosinophils # 0.0 0.0 0.0 Basophils # 0.0 0.0 0.0 Nucleated Red Blood Cells # 0.0 0.0 0.0 Erythrocyte Sedimentation Rate 8 Sodium Level 139 139 Potassium Level 3.1 L 3.0 L Chloride Level 102 103 Carbon Dioxide Level 24 22 Anion Gap 16 # 17 H Blood Urea Nitrogen 10 10 Creatinine 0.63 0.68 Glucose Level 89 87 Calcium Level 8.1 L 8.1 L Total Bilirubin 1.2 Direct Bilirubin 0.00 Indirect Bilirubin 1.2 H Aspartate Amino Transf (AST/SGOT) 17 Alanine Aminotransferase (ALT/SGPT) 24 Alkaline Phosphatase 77 Total Protein 6.7 # Albumin 3.4 Globulin 3.30 H Albumin/Globulin Ratio 1.03 Medications Medications Current Medications Morphine Sulfate (morphine) 4 mg Q4 PRN IV PAIN Last administered on 01/07/17 20:45; Admin Dose 4 MG; Start 01/07/17 at 21:00 Ondansetron HCl 4 mg 4 mg Q6H PRN IV NAUSEA AND/OR VOMITING Last administered on 01/08/17 08:27; Admin Dose 4 MG; Start 01/07/17 at 21:30 Sodium Chloride (NS) 1,000 ml @ 70 mls/hr [id number] IV Last administered on 01/08 00:01; Admin Dose 70 MLS/HR; Start 01/07/17 at 22:16 Ondansetron HCl (Zofran Inj) 4 mg Q6H PRN IV NAUSEA AND/OR VOMITING; Start at 22:30 Metoclopramide HCl (Reglan) 10 mg Q6H PRN IV NAUSEA AND/OR VOMITING Last administered on 01/08/17 12:25; Admin Dose 10 MG; Start 01/07/17 at 22:30 Acetaminophen (Tylenol Tab) 650 mg Q6H PRN PO PAIN LEVEL 1-3 OR FEVER Last administered on 01/08/17 05:37; Admin Dose 650 MG; Start 01/07/17 at 22:30 Hydromorphone HCl (Dilaudid) 1 mg Q3 PRN IV PAIN LEVEL 7-10 Last administered on 01/08/17 18:44; Admin Dose 1 MG; Start 01/07/17 at 22:30 Pantoprazole (Protonix Iv) 40 mg DAILY@06 IV Last administered on 01/08/17 06: 37; Admin Dose 40 MG; Start 01/08/17 at 06:00 Amlodipine Besylate (Norvasc) 2.5 mg BID PO Last administered on 01/08/17 08: 25; Admin Dose 2.5 MG; Start 01/08/17 at 09:00 Azathioprine (Imuran) 50 mg BID PO Last administered on 01/08/17 08:25; Admin Dose 50 MG; Start 01/08/17 at 09:00 Hydroxychloroquine Sulfate (Plaquenil) 200 mg BID PO Last administered on 08:25; Admin Dose 200 MG; Start 01/08/17 at 09:00 Prednisone (Prednisone) 10 mg BID PO Last administered on 01/08/17 08:25; Admin Dose 10 MG; Start 01/08/17 at 09:00 JORDAN RAMÍREZ MD Jan 08, 2017 20:46
[2017-01-08] MEDS ORDERED: DIPHENHYDRAMINE 50 MG CAP PO ONE (21:00)
[2017-01-09] VITALS (12 sets, daily range): BP systolic 99–148; BP diastolic 58–92; PULSE 90–110; RESP 17–19
[2017-01-09] MEDS: SOD CHLORIDE 0.9% 1,000 ML IV SCH ×2 (00:24→13:04)
[2017-01-09] MEDS: HYDROmorphONE 1 MG/ML SYG IV PRN ×3 (06:40→18:42)
[2017-01-09] MEDS: PANTOPRAZOLE 40 MG INJ IV SCH (06:41)
[2017-01-09 06:55] LABS: ADD SCAN DIFF NO
[2017-01-09 07:01] LABS: ABNORMAL IP MESSAGE 1; BASOPHILS % 0.2 % (0.0-2.0); HEMATOCRIT 28.7 % (37.0-47.0); HEMOGLOBIN 8.1 g/dl (12.0-16.0); LYMPHOCYTES # 0.6 10^3/ul (0.8-2.9); LYMPHOCYTES % 8.6 % (15.0-51.0); MEAN CORPUSCULAR HEMOGLOBIN 22.6 pg (29.0-33.0); MEAN CORPUSCULAR HGB CONC 28.2 g/dl (32.0-37.0); MEAN CORPUSCULAR VOLUME 80.2 fl (82.0-101.0); MONOCYTE # 0.5 10^3/ul (0.3-0.9); NEUTROPHIL # 5.5 10^3/ul (1.6-7.5); NEUTROPHILS % 83.7 % (39.0-77.0); PLATELET COUNT 52 10^3/UL (140-415); RED BLOOD COUNT 3.58 10^6/ul (4.20-5.40); RED CELL DISTRIBUTION WIDTH 19.5 % (11.5-14.5); WHITE BLOOD COUNT 6.5 10^3/ul (4.8-10.8)
[2017-01-09 07:15] LABS: MAGNESIUM 1.8 mg/dl (1.7-2.5); PHOSPHORUS 3.9 mg/dl (2.5-4.9)
[2017-01-09 07:35] LABS: ALBUMIN 3.6 g/dl (3.3-4.9); ALBUMIN/GLOBULIN RATIO 1.02; CALCIUM 8.7 mg/dl (8.4-10.2); CREATININE 0.58 mg/dl (0.44-1.00); POTASSIUM 4.1 mmol/L (3.5-5.1); TOTAL PROTEIN 7.1 g/dl (6.1-8.1)
[2017-01-09] MEDS: AMLODIPINE 5 MG TAB PO SCH ×2 (09:00→21:16)
[2017-01-09] MEDS: predniSONE 10 MG TAB PO SCH ×2 (09:49→21:16)
[2017-01-09] MEDS: HYDROXYCHLOROQUINE 200 MG TAB PO SCH ×2 (09:49→21:16)
[2017-01-09] MEDS: AZATHIOPRINE 50 MG TAB PO SCH ×2 (09:49→21:16)
--- NOTE | 2017-01-09 12:39 | PN ---
Date/Time of Note Date/Time of Note DATE: 01/09/17 TIME: 12:36 Assessment/Plan VTE Prophylaxis VTE Prophylaxis Intervention: other Lines/Catheters IV [facility] Type [facility] Peripheral IV Urinary Cath still in place: No Assessment/Plan Problems: (1) SLE (systemic lupus erythematosus) Status: Chronic Comment: Her primary shuttle threader is Dr. Timo Ramirez. He does not generally come to hospitals. However this is not the main active issue here she will be treated for splenic infarct Qualifiers: Systemic lupus erythematosus type: unspecified Systemic lupus erythematosus organ involvement: unspecified Qualified Code: M32.9 - Systemic lupus erythematosus, unspecified SLE type, unspecified organ involvement status (2) Rheumatoid arthritis Status: Chronic Comment: As above her primary shuttle threader is Dr. Timo Ramirez. Continue her outpatient medication regimen Qualifiers: Rheumatoid arthritis location: unspecified site Rheumatoid factor presence : with rheumatoid factor Qualified Code: M05.9 - Rheumatoid arthritis with positive rheumatoid factor, involving unspecified site (3) Splenic infarct Status: Chronic Comment: She still having pain although she is better under better control with narcotic analgesia. While she does have thrombocytopenia she has no indication for platelet infusions at this time. Curiously given the splenic damage she should be treated with vaccines for encapsulated organisms including Prevnar meningococcal vaccine (4) Hypertension Status: Chronic Comment: Adequately controlled Qualifiers: Hypertension type: essential hypertension Qualified Code: I10 - Essential hypertension (5) Obesity (BMI 30.0-34.9) Status: Chronic Comment: Counseled Subjective 24 Hr Interval Summary Free Text/Dictation Charming young woman washing her hair with the assistance of her mother, at the sink. Constitutional: no complaints (No fevers chills or sweats) Respiratory: no complaints (No shortness of breath no cough) Cardiovascular: no complaints Gastrointestinal: no complaints Genitourinary: no complaints Exam/Review of Systems Vital Signs Vitals Vital Signs Date Time Temp Pulse Resp B/P Pulse Ox O2 Delivery O2 Flow Rate FiO2 01/09/17 12:24 92 01/09/17 10:56 98.5 17 116/63 97 01/07/17 20:13 Room Air Intake and Output 01/08/17 01/08/17 01/09/17 15:00 23:00 07:00 Intake Total 530 ml Output Total 3 ml Balance 527 ml Exam Able to ambulate in room Constitutional: alert, oriented Neck: non-tender, supple Respiratory: clear to auscultation, normal air movement Cardiovascular: nl pulses, regular rate and rhythm Results Result Diagram: 01/09/1718 01/09/17 0618 Results 24 hrs Laboratory Tests Test 01/09/17 06:18 White Blood Count 6.5 Red Blood Count 3.58 L Hemoglobin 8.1 L Hematocrit 28.7 L Mean Corpuscular Volume 80.2 L Mean Corpuscular Hemoglobin 22.6 L Mean Corpuscular Hemoglobin Concent 28.2 L Red Cell Distribution Width 19.5 H Platelet Count 52 L Mean Platelet Volume Neutrophils % 83.7 H Lymphocytes % 8.6 L Monocytes % 7.0 Eosinophils % 0.0 Basophils % 0.2 Nucleated Red Blood Cells % 0.0 Neutrophils # 5.5 Lymphocytes # 0.6 L Monocytes # 0.5 Eosinophils # 0.0 Basophils # 0.0 Nucleated Red Blood Cells # 0.0 Sodium Level 138 Potassium Level 4.1 Chloride Level 102 Carbon Dioxide Level 21 Anion Gap 19 H Blood Urea Nitrogen 8 Creatinine 0.58 Glucose Level 95 Calcium Level 8.7 Phosphorus Level 3.9 Magnesium Level 1.8 Total Bilirubin 1.0 Direct Bilirubin 0.00 Indirect Bilirubin 1.0 Aspartate Amino Transf (AST/SGOT) 14 L Alanine Aminotransferase (ALT/SGPT) 21 Alkaline Phosphatase 82 Total Protein 7.1 Albumin 3.6 Globulin 3.50 H Albumin/Globulin Ratio 1.02 Medications Medications Current Medications Morphine Sulfate (morphine) 4 mg Q4 PRN IV PAIN Last administered on 01/07/17 20:45; Admin Dose 4 MG; Start 01/07/17 at 21:00 Ondansetron HCl 4 mg 4 mg Q6H PRN IV NAUSEA AND/OR VOMITING Last administered on 01/08/17 23:00; Admin Dose 4 MG; Start 01/07/17 at 21:30 Sodium Chloride (NS) 1,000 ml @ 70 mls/hr [id number] IV Last administered on 01/09 00:24; Admin Dose 70 MLS/HR; Start 01/07/17 at 22:16 Ondansetron HCl (Zofran Inj) 4 mg Q6H PRN IV NAUSEA AND/OR VOMITING; Start at 22:30 Metoclopramide HCl (Reglan) 10 mg Q6H PRN IV NAUSEA AND/OR VOMITING Last administered on 01/08/17 12:25; Admin Dose 10 MG; Start 01/07/17 at 22:30 Acetaminophen (Tylenol Tab) 650 mg Q6H PRN PO PAIN LEVEL 1-3 OR FEVER Last administered on 01/08/17 05:37; Admin Dose 650 MG; Start 01/07/17 at 22:30 Hydromorphone HCl (Dilaudid) 1 mg Q3 PRN IV PAIN LEVEL 7-10 Last administered on 01/09/17 06:40; Admin Dose 1 MG; Start 01/07/17 at 22:30 Pantoprazole (Protonix Iv) 40 mg DAILY@06 IV Last administered on 01/09/17 06: 41; Admin Dose 40 MG; Start 01/08/17 at 06:00 Amlodipine Besylate (Norvasc) 2.5 mg BID PO Last administered on 01/08/17 20: 56; Admin Dose 2.5 MG; Start 01/08/17 at 09:00 Azathioprine (Imuran) 50 mg BID PO Last administered on 01/09/17 09:49; Admin Dose 50 MG; Start 01/08/17 at 09:00 Hydroxychloroquine Sulfate (Plaquenil) 200 mg BID PO Last administered on 09:49; Admin Dose 200 MG; Start 01/08/17 at 09:00 Prednisone (Prednisone) 10 mg BID PO Last administered on 01/09/17 09:49; Admin Dose 10 MG; Start 01/08/17 at 09:00 TIMO PITT MD Jan 09, 2017 12:39
[2017-01-09] MEDS ORDERED: PNEUMOC 13-VAL CONJ-DIP CRM/PF 0.5 ML SYR IM* ONE (13:00)
[2017-01-09] MEDS ORDERED: [UNRECOGNIZED DRUG - OTHER] SC* ONE (13:00)
[2017-01-09] MEDS: ONDANSETRON 4 MG INJ IV PRN (13:04)
--- NOTE | 2017-01-09 17:55 | PN ---
Date/Time of Note Date/Time of Note DATE: 01/09/17 TIME: 17:51 Assessment/Plan Lines/Catheters IV Catheter Type (from Nrs): Peripheral IV Henao in Place (from Nrs): No Assessment/Plan Assessment/Plan 31-year-old female with left upper quadrant abdominal pain, splenic infarct * In the absence of complications such as hemorrhage, abscess, pseudocyst, hemodynamic instability, etc. would again manage conservatively and nonoperatively. * Hemoglobin and platelets low, but stable. Can decrease frequency of CBCs * OOB ok. Clear liquids ok. * Do not see an indication for repeat CT as long as patient is clinically improving The above was discussed with the patient and the primary care team in detail. Further recommendations will be made based on patient's clinical course. Subjective 24 Hr Interval Summary Feels better. Tmax 101.3. Currently afebrile. Exam/Review of Systems Vital Signs Vitals Vital Signs Date Time Temp Pulse Resp B/P Pulse Ox O2 Delivery O2 Flow Rate FiO2 01/09/17 16:16 94 01/09/17 15:27 98.1 18 119/77 96 01/07/17 20:13 Room Air Intake and Output 01/08/17 01/08/17 01/09/17 15:00 23:00 07:00 Intake Total 530 ml Output Total 3 ml Balance 527 ml Exam Free Text/Dictation GENERAL: Awake, alert, oriented x 3. No acute distress. CARDIOVASCULAR: S1S2, regular rate and rhythm. No murmurs appreciated. RESPIRATORY: Clear to auscultation bilaterally. ABDOMEN: Soft, bowel sounds present, nondistended, there is tenderness in the left upper quadrant extending to the left flank, improved somewhat. There is no rebound, guarding or evidence of peritonitis. EXTREMITIES: Deformities of bilateral hands consistent with chronic rheumatoid arthritis. Amputation of the right index finger. Results Result Diagram: 01/09/1718 01/09/1718 TITI VILLALTA MD Jan 09, 2017 17:55
--- NOTE | 2017-01-09 19:19 | CONS ---
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 At the current time we will continue to monitor her conservatively. Will monitor movement every 6 hours. Provide IV narcotic pain control. Monitor for hemodynamic instability. patient may need to have a splenectomy. 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 would again manage conservatively and nonoperatively. Anemia of chronic disease: We will continue to monitor H&H thrombocytopenia: Likely secondary to patient underlying autoimmune disorders. Consider platelet transfusion if indicated. SLE: Patient is currently on maintenance dose of prednisone which was increased over the past month or so. Will continue current dose. Stress dose steroids recommended by surgery Continue home medications. rheumatoid arthritis: Stable continue home medications. hypertension: Continue home medications. DVT and GI prophylaxis: SCDs, Protonix Problems: Consultation Date/Type/Reason Admit Date/Time Jan 07, 2017 at 17:45 Initial Consult Date 01/07/17 Type of Consultation: [facility] Referring Provider: CHERYLE LEONARD 24 HR Interval Summary Free Text/Dictation ALL NOTED Exam/Review of Systems Vital Signs Vitals Vital Signs Date Time Temp Pulse Resp B/P Pulse Ox O2 Delivery O2 Flow Rate FiO2 01/09/17 16:16 94 01/09/17 15:27 98.1 18 119/77 96 01/07/17 20:13 Room Air Intake and Output 01/08/17 01/08/17 01/09/17 15:00 23:00 07:00 Intake Total 530 ml Output Total 3 ml Balance 527 ml Exam General: Patient is well-developed well-nourished The patient is alert oriented -3 lying comfortably in bed. HEENT: Atraumatic, normocephalic. The pupils are equal, round and reactive. Extraocular motor are intact Neck: Supple with full range of motion. No rigidity or meningismus Chest: Nontender Lungs: Clear to auscultation bilaterally no crackles rales or wheezing Heart: Normal S1-S2, Regular rhythm and rate. No murmur, S3, or S4 Abdomen: Left upper quadrant tenderness to palpation Extremities: Normal to inspection, no edema no cyanosis Neurologic: Normal mental status, speech normal, cranial nerves II through XII are intact, motor and sensory are intact, no focal weakness Results Result Diagram: 01/09/17 0618 01/09/17 0618 Results 24 hrs Laboratory Tests Test 01/09/17 06:18 White Blood Count 6.5 Red Blood Count 3.58 L Hemoglobin 8.1 L Hematocrit 28.7 L Mean Corpuscular Volume 80.2 L Mean Corpuscular Hemoglobin 22.6 L Mean Corpuscular Hemoglobin Concent 28.2 L Red Cell Distribution Width 19.5 H Platelet Count 52 L Mean Platelet Volume Neutrophils % 83.7 H Lymphocytes % 8.6 L Monocytes % 7.0 Eosinophils % 0.0 Basophils % 0.2 Nucleated Red Blood Cells % 0.0 Neutrophils # 5.5 Lymphocytes # 0.6 L Monocytes # 0.5 Eosinophils # 0.0 Basophils # 0.0 Nucleated Red Blood Cells # 0.0 Sodium Level 138 Potassium Level 4.1 Chloride Level 102 Carbon Dioxide Level 21 Anion Gap 19 H Blood Urea Nitrogen 8 Creatinine 0.58 Glucose Level 95 Calcium Level 8.7 Phosphorus Level 3.9 Magnesium Level 1.8 Total Bilirubin 1.0 Direct Bilirubin 0.00 Indirect Bilirubin 1.0 Aspartate Amino Transf (AST/SGOT) 14 L Alanine Aminotransferase (ALT/SGPT) 21 Alkaline Phosphatase 82 Total Protein 7.1 Albumin 3.6 Globulin 3.50 H Albumin/Globulin Ratio 1.02 Medications Medications Current Medications Morphine Sulfate (morphine) 4 mg Q4 PRN IV PAIN Last administered on 01/07/17 20:45; Admin Dose 4 MG; Start 01/07/17 at 21:00 Ondansetron HCl 4 mg 4 mg Q6H PRN IV NAUSEA AND/OR VOMITING Last administered on 01/09/17 13:04; Admin Dose 4 MG; Start 01/07/17 at 21:30 Sodium Chloride (NS) 1,000 ml @ 70 mls/hr [id number] IV Last administered on 01/09 13:04; Admin Dose 70 MLS/HR; Start 01/07/17 at 22:16 Ondansetron HCl (Zofran Inj) 4 mg Q6H PRN IV NAUSEA AND/OR VOMITING; Start at 22:30 Metoclopramide HCl (Reglan) 10 mg Q6H PRN IV NAUSEA AND/OR VOMITING Last administered on 01/08/17 12:25; Admin Dose 10 MG; Start 01/07/17 at 22:30 Acetaminophen (Tylenol Tab) 650 mg Q6H PRN PO PAIN LEVEL 1-3 OR FEVER Last administered on 01/08/17 05:37; Admin Dose 650 MG; Start 01/07/17 at 22:30 Hydromorphone HCl (Dilaudid) 1 mg Q3 PRN IV PAIN LEVEL 7-10 Last administered on 01/09/17 18:42; Admin Dose 1 MG; Start 01/07/17 at 22:30 Pantoprazole (Protonix Iv) 40 mg DAILY@06 IV Last administered on 01/09/17 06: 41; Admin Dose 40 MG; Start 01/08/17 at 06:00 Amlodipine Besylate (Norvasc) 2.5 mg BID PO Last administered on 01/08/17 20: 56; Admin Dose 2.5 MG; Start 01/08/17 at 09:00 Azathioprine (Imuran) 50 mg BID PO Last administered on 01/09/17 09:49; Admin Dose 50 MG; Start 01/08/17 at 09:00 Hydroxychloroquine Sulfate (Plaquenil) 200 mg BID PO Last administered on 09:49; Admin Dose 200 MG; Start 01/08/17 at 09:00 Prednisone (Prednisone) 10 mg BID PO Last administered on 01/09/17 09:49; Admin Dose 10 MG; Start 01/08/17 at 09:00 JORDAN RAMÍREZ MD Jan 09, 2017 19:19
[2017-01-10] VITALS (13 sets, daily range): BP systolic 114–140; BP diastolic 70–77; PULSE 68–90; RESP 17–20
[2017-01-10] MEDS: ONDANSETRON 4 MG INJ IV PRN (00:15)
[2017-01-10] MEDS: HYDROmorphONE 1 MG/ML SYG IV PRN ×4 (00:15→21:12)
[2017-01-10] MEDS: PANTOPRAZOLE 40 MG INJ IV SCH (06:00)
[2017-01-10] MEDS: SOD CHLORIDE 0.9% 1,000 ML IV SCH ×2 (06:00→21:14)
[2017-01-10 07:56] LABS: ALBUMIN 3.7 g/dl (3.3-4.9); ALBUMIN/GLOBULIN RATIO 1.05; BILIRUBIN,INDIRECT 0.6 mg/dl (0-1.1); BILIRUBIN,TOTAL 0.6 mg/dl (0.2-1.3); CALCIUM 8.7 mg/dl (8.4-10.2); CREATININE 0.54 mg/dl (0.44-1.00); POTASSIUM 4.2 mmol/L (3.5-5.1); TOTAL PROTEIN 7.2 g/dl (6.1-8.1)
[2017-01-10] MEDS: AZATHIOPRINE 50 MG TAB PO SCH ×2 (08:32→21:12)
[2017-01-10] MEDS: AMLODIPINE 5 MG TAB PO SCH ×2 (08:33→21:13)
[2017-01-10] MEDS: HYDROXYCHLOROQUINE 200 MG TAB PO SCH ×2 (08:34→21:13)
[2017-01-10] MEDS: predniSONE 10 MG TAB PO SCH ×2 (08:34→21:13)
--- NOTE | 2017-01-10 11:10 | PN ---
Date/Time of Note Date/Time of Note DATE: 01/10/17 TIME: 11:07 Assessment/Plan Lines/Catheters IV [facility] Type [facility] Peripheral IV Henao in Place (from Nrs): No Assessment/Plan Assessment/Plan 31-year-old female with left upper quadrant abdominal pain, splenic infarct * In the absence of complications such as hemorrhage, abscess, pseudocyst, hemodynamic instability, etc. would again manage conservatively and nonoperatively. * Hemoglobin and platelets low, but stable. * Continue clear liquids * Do not see an indication for repeat CT as long as patient is clinically improving The above was discussed with the patient in detail. Further recommendations will be made based on patient's clinical course. Subjective 24 Hr Interval Summary Feeling better. Tolerating some clear liquids. Afebrile. Exam/Review of Systems Vital Signs Vitals Vital Signs Date Time Temp Pulse Resp B/P Pulse Ox O2 Delivery O2 Flow Rate FiO2 01/10/17 08:29 68 01/10/17 07:51 98.0 19 124/75 93 01/07/17 20:13 Room Air Intake and Output 01/09/17 01/09/17 01/10/17 15:00 23:00 07:00 Intake Total 500 ml 30 ml 1070 ml Balance 500 ml 30 ml 1070 ml Exam Free Text/Dictation GENERAL: Awake, alert, oriented x 3. No acute distress. CARDIOVASCULAR: S1S2, regular rate and rhythm. No murmurs appreciated. RESPIRATORY: Clear to auscultation bilaterally. ABDOMEN: Soft, bowel sounds present, nondistended, there is tenderness in the left upper quadrant extending to the left flank, improved somewhat. There is no rebound, guarding or evidence of peritonitis. EXTREMITIES: Deformities of bilateral hands consistent with chronic rheumatoid arthritis. Amputation of the right index finger. Results Result Diagram: 01/09/17 0618 01/10/17 0603 TITI VILLALTA MD Jan 10, 2017 11:09
--- NOTE | 2017-01-10 12:25 | PN ---
Date/Time of Note Date/Time of Note DATE: 01/10/17 TIME: 12:23 Assessment/Plan VTE Prophylaxis VTE Prophylaxis Intervention: contraindicated Lines/Catheters [facility] Peripheral IV Urinary Cath still in place: No Assessment/Plan Problems: (1) Hypertension Status: Chronic Comment: Stable and adequately controlled Qualifiers: Hypertension type: essential hypertension Qualified Code: I10 - Essential hypertension (2) SLE (systemic lupus erythematosus) Status: Chronic Comment: As per her outpatient transportation security officer Dr. Ramirez Qualifiers: Systemic lupus erythematosus type: unspecified Systemic lupus erythematosus organ involvement: unspecified Qualified Code: M32.9 - Systemic lupus erythematosus, unspecified SLE type, unspecified organ involvement status (3) Rheumatoid arthritis Status: Chronic Comment: As per her outpatient transportation security officer Dr. Ramirez. Please note at some point she will probably need some type of an anticoagulant therapy however in the setting of the acute splenic infarct we will hold off Qualifiers: Rheumatoid arthritis location: unspecified site Rheumatoid factor presence : with rheumatoid factor Qualified Code: M05.9 - Rheumatoid arthritis with positive rheumatoid factor, involving unspecified site (4) Splenic infarct Status: Chronic Comment: Pain is coming under control. Probable discharge in the morning. Pending at this time are the vaccines for encapsulated organisms appropriate for patients with splenic disease Subjective 24 Hr Interval Summary Free Text/Dictation Patient reports her symptoms are improving. Constitutional: no complaints Respiratory: no complaints Cardiovascular: no complaints Gastrointestinal: no complaints Exam/Review of Systems Vital Signs Vitals Vital Signs Date Time Temp Pulse Resp B/P Pulse Ox O2 Delivery O2 Flow Rate FiO2 01/10/17 12:17 84 01/10/17 11:17 97.6 20 127/77 95 01/07/17 20:13 Room Air Intake and Output 01/09/17 01/09/17 01/10/17 15:00 23:00 07:00 Intake Total 500 ml 30 ml 1070 ml Balance 500 ml 30 ml 1070 ml Exam Constitutional: alert, oriented Respiratory: clear to auscultation, normal air movement Cardiovascular: nl pulses, regular rate and rhythm Results Result Diagram: 01/09/17 0618 01/10/17 0603 Results 24 hrs Laboratory Tests Test 01/10/17 06:03 Sodium Level 138 Potassium Level 4.2 Chloride Level 100 Carbon Dioxide Level 22 Anion Gap 20 H Blood Urea Nitrogen 9 Creatinine 0.54 Glucose Level 86 Calcium Level 8.7 Total Bilirubin 0.6 Direct Bilirubin 0.00 Indirect Bilirubin 0.6 Aspartate Amino Transf (AST/SGOT) 16 Alanine Aminotransferase (ALT/SGPT) 23 Alkaline Phosphatase 76 Total Protein 7.2 Albumin 3.7 Globulin 3.50 H Albumin/Globulin Ratio 1.05 Medications Medications Current Medications Morphine Sulfate (morphine) 4 mg Q4 PRN IV PAIN Last administered on 01/07/17 20:45; Admin Dose 4 MG; Start 01/07/17 at 21:00 Ondansetron HCl 4 mg 4 mg Q6H PRN IV NAUSEA AND/OR VOMITING Last administered on 01/10/17 00:15; Admin Dose 4 MG; Start 01/07/17 at 21:30 Sodium Chloride (NS) 1,000 ml @ 70 mls/hr [id number] IV Last administered on 01/10 06:00; Admin Dose 70 MLS/HR; Start 01/07/17 at 22:16 Ondansetron HCl (Zofran Inj) 4 mg Q6H PRN IV NAUSEA AND/OR VOMITING; Start at 22:30 Metoclopramide HCl (Reglan) 10 mg Q6H PRN IV NAUSEA AND/OR VOMITING Last administered on 01/08/17 12:25; Admin Dose 10 MG; Start 01/07/17 at 22:30 Acetaminophen (Tylenol Tab) 650 mg Q6H PRN PO PAIN LEVEL 1-3 OR FEVER Last administered on 01/08/17 05:37; Admin Dose 650 MG; Start 01/07/17 at 22:30 Hydromorphone HCl (Dilaudid) 1 mg Q3 PRN IV PAIN LEVEL 7-10 Last administered on 01/10/17 08:39; Admin Dose 1 MG; Start 01/07/17 at 22:30 Pantoprazole (Protonix Iv) 40 mg DAILY@06 IV Last administered on 01/10/17 06: 00; Admin Dose 40 MG; Start 01/08/17 at 06:00 Amlodipine Besylate (Norvasc) 2.5 mg BID PO Last administered on 01/10/17 08: 33; Admin Dose 2.5 MG; Start 01/08/17 at 09:00 Azathioprine (Imuran) 50 mg BID PO Last administered on 01/10/17 08:32; Admin Dose 50 MG; Start 01/08/17 at 09:00 Hydroxychloroquine Sulfate (Plaquenil) 200 mg BID PO Last administered on 08:34; Admin Dose 200 MG; Start 01/08/17 at 09:00 Prednisone (Prednisone) 10 mg BID PO Last administered on 01/10/17 08:34; Admin Dose 10 MG; Start 01/08/17 at 09:00 TIMO PITT MD Jan 10, 2017 12:24
--- NOTE | 2017-01-10 16:53 | CONS ---
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 At the current time we will continue to monitor her conservatively. Provide IV narcotic pain control. Monitor for hemodynamic instability. patient may need to have a splenectomy. 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 would again manage conservatively and nonoperatively. Anemia of chronic disease: We will continue to monitor H&H thrombocytopenia: Likely secondary to patient underlying autoimmune disorders. Consider platelet transfusion if indicated. SLE: Patient is currently on maintenance dose of prednisone which was increased over the past month or so. Will continue current dose. Stress dose steroids recommended by surgery Continue home medications. rheumatoid arthritis: Stable continue home medications. hypertension: Continue home medications. DVT and GI prophylaxis: SCDs, Protonix Problems: Consultation Date/Type/Reason Admit Date/Time Jan 07, 2017 at 17:45 Initial Consult Date 01/07/17 [facility] Referring Provider: CHERYLE LEONARD 24 HR Interval Summary Free Text/Dictation ALL NOTED D/W PT Exam/Review of Systems Vital Signs Vitals Vital Signs Date Time Temp Pulse Resp B/P Pulse Ox O2 Delivery O2 Flow Rate FiO2 01/10/17 16:11 71 01/10/17 15:36 98.4 18 125/75 98 01/07/17 20:13 Room Air Intake and Output 01/09/17 01/09/17 01/10/17 15:00 23:00 07:00 Intake Total 500 ml 30 ml 1070 ml Balance 500 ml 30 ml 1070 ml Exam General: Patient is well-developed well-nourished The patient is alert oriented -3 lying comfortably in bed. HEENT: Atraumatic, normocephalic. The pupils are equal, round and reactive. Extraocular motor are intact Neck: Supple with full range of motion. No rigidity or meningismus Chest: Nontender Lungs: Clear to auscultation bilaterally no crackles rales or wheezing Heart: Normal S1-S2, Regular rhythm and rate. No murmur, S3, or S4 Abdomen: Left upper quadrant tenderness to palpation Extremities: Normal to inspection, no edema no cyanosis Neurologic: Normal mental status, speech normal, cranial nerves II through XII are intact, motor and sensory are intact, no focal weakness Results Result Diagram: 01/09/17 0618 01/10/17 0603 Results 24 hrs Laboratory Tests Test 01/10/17 06:03 Sodium Level 138 Potassium Level 4.2 Chloride Level 100 Carbon Dioxide Level 22 Anion Gap 20 H Blood Urea Nitrogen 9 Creatinine 0.54 Glucose Level 86 Calcium Level 8.7 Total Bilirubin 0.6 Direct Bilirubin 0.00 Indirect Bilirubin 0.6 Aspartate Amino Transf (AST/SGOT) 16 Alanine Aminotransferase (ALT/SGPT) 23 Alkaline Phosphatase 76 Total Protein 7.2 Albumin 3.7 Globulin 3.50 H Albumin/Globulin Ratio 1.05 Medications Medications Current Medications Morphine Sulfate (morphine) 4 mg Q4 PRN IV PAIN Last administered on 01/07/17 20:45; Admin Dose 4 MG; Start 01/07/17 at 21:00 Ondansetron HCl 4 mg 4 mg Q6H PRN IV NAUSEA AND/OR VOMITING Last administered on 01/10/17 00:15; Admin Dose 4 MG; Start 01/07/17 at 21:30 Sodium Chloride (NS) 1,000 ml @ 70 mls/hr [id number] IV Last administered on 01/10 06:00; Admin Dose 70 MLS/HR; Start 01/07/17 at 22:16 Ondansetron HCl (Zofran Inj) 4 mg Q6H PRN IV NAUSEA AND/OR VOMITING; Start at 22:30 Metoclopramide HCl (Reglan) 10 mg Q6H PRN IV NAUSEA AND/OR VOMITING Last administered on 01/08/17 12:25; Admin Dose 10 MG; Start 01/07/17 at 22:30 Acetaminophen (Tylenol Tab) 650 mg Q6H PRN PO PAIN LEVEL 1-3 OR FEVER Last administered on 01/08/17 05:37; Admin Dose 650 MG; Start 01/07/17 at 22:30 Hydromorphone HCl (Dilaudid) 1 mg Q3 PRN IV PAIN LEVEL 7-10 Last administered on 01/10/17 15:32; Admin Dose 1 MG; Start 01/07/17 at 22:30 Pantoprazole (Protonix Iv) 40 mg DAILY@06 IV Last administered on 01/10/17 06: 00; Admin Dose 40 MG; Start 01/08/17 at 06:00 Amlodipine Besylate (Norvasc) 2.5 mg BID PO Last administered on 01/10/17 08: 33; Admin Dose 2.5 MG; Start 01/08/17 at 09:00 Azathioprine (Imuran) 50 mg BID PO Last administered on 01/10/17 08:32; Admin Dose 50 MG; Start 01/08/17 at 09:00 Hydroxychloroquine Sulfate (Plaquenil) 200 mg BID PO Last administered on 08:34; Admin Dose 200 MG; Start 01/08/17 at 09:00 Prednisone (Prednisone) 10 mg BID PO Last administered on 01/10/17 08:34; Admin Dose 10 MG; Start 01/08/17 at 09:00 JORDAN RAMÍREZ MD Jan 10, 2017 16:53
[2017-01-11] VITALS (11 sets, daily range): BP systolic 105–125; BP diastolic 59–75; PULSE 67–76; RESP 18
[2017-01-11] MEDS: PANTOPRAZOLE 40 MG INJ IV SCH (06:12)
[2017-01-11] MEDS: HYDROmorphONE 1 MG/ML SYG IV PRN ×3 (06:15→21:00)
[2017-01-11 08:43] LABS: ALBUMIN 3.7 g/dl (3.3-4.9); ALBUMIN/GLOBULIN RATIO 1.12; BILIRUBIN,INDIRECT 0.4 mg/dl (0-1.1); BILIRUBIN,TOTAL 0.4 mg/dl (0.2-1.3); CALCIUM 8.5 mg/dl (8.4-10.2); CREATININE 0.57 mg/dl (0.44-1.00)
[2017-01-11] MEDS: morphine 4 MG/ML VIAL IV PRN ×2 (08:46→17:44)
[2017-01-11] MEDS: ONDANSETRON 4 MG INJ IV PRN (08:46)
[2017-01-11] MEDS: HYDROXYCHLOROQUINE 200 MG TAB PO SCH ×2 (08:47→20:55)
[2017-01-11] MEDS: AMLODIPINE 5 MG TAB PO SCH ×2 (08:47→20:56)
[2017-01-11] MEDS: AZATHIOPRINE 50 MG TAB PO SCH ×2 (08:47→20:55)
[2017-01-11] MEDS: predniSONE 10 MG TAB PO SCH ×2 (08:47→17:03)
[2017-01-11 09:49] LABS: POTASSIUM 3.8 mmol/L (3.5-5.1)
[2017-01-11] MEDS: SOD CHLORIDE 0.9% 1,000 ML IV SCH (09:57)
--- NOTE | 2017-01-11 14:05 | PDOCDIS ---
Discharge Instructions DIAGNOSIS Discharge Diagnosis Splenic infarct: Please make an appointment with your primary care provider in order to see a rhuematologist and a erp consultant. You will need to get a pneumococcal vaccine as well as a HiB vaccine, as well as other vaccines per primary care provider. Puller Through or oncology account specialist will need to perform workup for possible hypercoagulable state and possible need of anticoagulation CONDITION Patient Condition: Good HOME CARE INSTRUCTIONS: Diet Instructions: RegularSpecial Diet: Clear liquid ACTIVITY: Activity Restrictions: Slowly Increase Activity FOLLOW UP/APPOINTMENTS Follow-up Plan Please make an appointment with your primary care provider in order to see a rhuematologist and a erp consultant. You will need to get a pneumococcal vaccine as well as a HiB vaccine, as well as other vaccines per primary care provider. Puller Through or oncology account specialist will need to perform workup for possible hypercoagulable state and possible need of anticoagulation SCHOOL/WORK RELEASE May return to School/Work on: Jan 12, 2017 May return to School/Work with: School/Work Release Comment: light duty PATO MEAD Jan 11, 2017 14:05
[2017-01-11] MEDS ORDERED: OXYC-209 PO (14:38)
--- NOTE | 2017-01-11 15:21 | CONS ---
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 At the current time we will continue to monitor her conservatively. Provide IV narcotic pain control. Monitor for hemodynamic instability. patient may need to have a splenectomy. 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 would again manage conservatively and nonoperatively. Anemia of chronic disease: We will continue to monitor H&H thrombocytopenia: Likely secondary to patient underlying autoimmune disorders. D/W DR PERSAUD RE- INCREASE PO PREDNISONE TO 40 MG PO QD START IVIG X 3 D D/W DR PATO MEAD SLE: Patient is currently on maintenance dose of prednisone which was increased over the past month or so. ABOVE Stress dose steroids recommended by surgery Continue home medications. rheumatoid arthritis: Stable continue home medications. hypertension: Continue home medications. DVT and GI prophylaxis: SCDs, Protonix Problems: Consultation Date/Type/Reason Admit Date/Time Jan 07, 2017 at 17:45 Initial Consult Date 01/07/17 [facility] Referring Provider: CHERYLE LEONARD 24 HR Interval Summary Free Text/Dictation D/W DR PERSAUD RE- INCREASE PO PREDNISONE TO 40 MG PO QD START IVIG X 3 D D/W DR PATO MEAD Exam/Review of Systems Vital Signs Vitals Vital Signs Date Time Temp Pulse Resp B/P Pulse Ox O2 Delivery O2 Flow Rate FiO2 01/11/17 15:14 98.7 72 18 122/75 99 01/07/17 20:13 Room Air Intake and Output 01/10/17 01/10/17 01/11/17 15:00 23:00 07:00 Intake Total 2000 ml 1700 ml Balance 2000 ml 1700 ml Exam General: Patient is well-developed well-nourished The patient is alert oriented -3 lying comfortably in bed. HEENT: Atraumatic, normocephalic. The pupils are equal, round and reactive. Extraocular motor are intact Neck: Supple with full range of motion. No rigidity or meningismus Chest: Nontender Lungs: Clear to auscultation bilaterally no crackles rales or wheezing Heart: Normal S1-S2, Regular rhythm and rate. No murmur, S3, or S4 Abdomen: Left upper quadrant tenderness to palpation Extremities: Normal to inspection, no edema no cyanosis Neurologic: Normal mental status, speech normal, cranial nerves II through XII are intact, motor and sensory are intact, no focal weakness Results Result Diagram: 01/09/17 0618 01/11/17 0554 Results 24 hrs Laboratory Tests Test 01/11/17 05:54 Sodium Level 139 Potassium Level 3.8 Chloride Level 102 Carbon Dioxide Level 24 Anion Gap 17 H Blood Urea Nitrogen 9 Creatinine 0.57 Glucose Level 92 Calcium Level 8.5 Total Bilirubin 0.4 Direct Bilirubin 0.00 Indirect Bilirubin 0.4 Aspartate Amino Transf (AST/SGOT) 18 Alanine Aminotransferase (ALT/SGPT) 21 Alkaline Phosphatase 75 Total Protein 7.0 Albumin 3.7 Globulin 3.30 H Albumin/Globulin Ratio 1.12 Medications Medications Current Medications Morphine Sulfate (morphine) 4 mg Q4 PRN IV PAIN Last administered on 01/11/17 08:46; Admin Dose 4 MG; Start 01/07/17 at 21:00 Ondansetron HCl 4 mg 4 mg Q6H PRN IV NAUSEA AND/OR VOMITING Last administered on 01/11/17 08:46; Admin Dose 4 MG; Start 01/07/17 at 21:30 Sodium Chloride (NS) 1,000 ml @ 70 mls/hr [id number] IV Last administered on 01/11 09:57; Admin Dose 70 MLS/HR; Start 01/07/17 at 22:16 Ondansetron HCl (Zofran Inj) 4 mg Q6H PRN IV NAUSEA AND/OR VOMITING; Start at 22:30 Metoclopramide HCl (Reglan) 10 mg Q6H PRN IV NAUSEA AND/OR VOMITING Last administered on 01/08/17 12:25; Admin Dose 10 MG; Start 01/07/17 at 22:30 Acetaminophen (Tylenol Tab) 650 mg Q6H PRN PO PAIN LEVEL 1-3 OR FEVER Last administered on 01/08/17 05:37; Admin Dose 650 MG; Start 01/07/17 at 22:30 Hydromorphone HCl (Dilaudid) 1 mg Q3 PRN IV PAIN LEVEL 7-10 Last administered on 01/11/17 12:38; Admin Dose 1 MG; Start 01/07/17 at 22:30 Pantoprazole (Protonix Iv) 40 mg DAILY@06 IV Last administered on 01/11/17 06: 12; Admin Dose 40 MG; Start 01/08/17 at 06:00 Amlodipine Besylate (Norvasc) 2.5 mg BID PO Last administered on 01/11/17 08: 47; Admin Dose 2.5 MG; Start 01/08/17 at 09:00 Azathioprine (Imuran) 50 mg BID PO Last administered on 01/11/17 08:47; Admin Dose 50 MG; Start 01/08/17 at 09:00 Hydroxychloroquine Sulfate (Plaquenil) 200 mg BID PO Last administered on 08:47; Admin Dose 200 MG; Start 01/08/17 at 09:00 Prednisone (Prednisone) 10 mg BID PO Last administered on 01/11/17 08:47; Admin Dose 10 MG; Start 01/08/17 at 09:00 JORDAN RAMÍREZ MD Jan 11, 2017 15:21
--- NOTE | 2017-01-11 15:29 | DS ---
Date/Time of Note Date/Time of Note DATE: 01/11/17 TIME: 15:26 Discharge Summary Admission/Discharge Info Admit Date/Time Jan 07, 2017 at 17:45 Discharge Date/Time Discharge Diagnosis Splenic infarct: Please make an appointment with your primary care provider in order to see a rhuematologist and a dress draper. You will need to get a pneumococcal vaccine as well as a HiB vaccine, as well as other vaccines per primary care provider. Pad Hand or wood furniture assembler will need to perform workup for possible hypercoagulable state and possible need of anticoagulation Patient Condition: Stable Hx of Present Illness Chief complaint: Left abdominal pain This is a 31-year-old female patient with a past medical history of anemia, systemic lupus erythematosus, rheumatoid arthritis, Raynaud's disease, hypertension presents to the ED complaining of a fever and left upper quadrant abdominal pain that started intermittently for the last few days. States that this pain is chronic however because it has worsened it brought her to the ER. States that the fever started earlier today. States that she is nauseous and had a few episodes of nonbilious nonbloody vomiting. 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 Denies any chest pain, shortness of breath, diarrhea, constipation.\ Allergies: Vancomycin Medications: See MAR Hospital Course Patient is a 31-year-old female with a past medical history of lupus and previous splenic infarcts who presented to [facility] for abdominal pain. Found to have acute infarct in her spleen in the anterior mid to lower spleen with interval decrease in size of previously seen splenic infarcts. Patient was admitted to the medicine service and evaluated by general surgery who opted for conservative management at this time unless new changes such as hemorrhage could be seen. Patient was also seen by hematology. They also agreed on conservative management and to follow-up with patient's dress draper in the outpatient setting as well as her wood furniture assembler. It was thoroughly explained to the patient that she should follow-up with her wood furniture assembler and dress draper in order to evaluate for possible anticoagulant disorders and the need for permanent anticoagulation. Patient was previously on anticoagulation, Xarelto, however needed to stop due to unknown bleeding and/ or hemolysis. Due to this prior history will hold off on anticoagulation for now and recommend follow-up with her dress draper as soon as possible. Patient to follow-up with her specialist for antiphospholipid antibody and return to the hospital if condition worsens. Home Meds Active Scripts Oxycodone HCl/Acetaminophen (Percocet 10-325 mg Tablet) 1 Each Tablet, 1 EACH PO Q8 Y for PAIN for 7 Days, #21 TAB Prov:PATO MEAD J 01/11/17 Reported Medications Pantoprazole* (Pantoprazole*) 40 Mg Tablet.dr, 40 MG PO AC BREAKFAST, TAB 01/07/17 Prednisone* (Prednisone*) 10 Mg Tab, 10 MG PO BID, TAB 01/07/17 Azathioprine* (Imuran*) 50 Mg Tab, 50 MG PO BID, TAB 01/07/17 Hydroxychloroquine Sulfate* (Hydroxychloroquine Sulfate*) 200 Mg Tablet, 200 MG PO BID, TAB 01/07/17 Amlodipine Besylate* (Norvasc*) 5 Mg Tablet, 2.5 MG PO BID, TAB 01/07/17 Discontinued Reported Medications Amlodipine Besylate* (Amlodipine Besylate*) 2.5 Mg Tablet, 2.5 MG PO DAILY, #30 TAB 02/18/16 Hydroxychloroquine Sulfate* (Plaquenil*) 200 Mg Tab, 200 MG PO DAILY, TAB 02/18/16 Folic Acid* (Folic Acid*) 1 Mg Tablet, 1 MG PO DAILY, TAB 05/11/14 Calcium Cmb 2-Mag Cmb 12-Vit D3 (Calcium 500) 1 Each Tablet, 1 TAB PO DAILY, TAB 05/11/14 Discontinued Scripts Electrolyte,Oral (Pedialyte) 1,000 Ml Solution, 100 ML PO Q6 Y for VOMITTING, # 1000 ML Prov:DEREK DUNBAR NP 12/05/16 Ondansetron (Ondansetron Odt) 4 Mg Tab.rapdis, 4 MG PO Q6H Y for NAUSEA AND/OR VOMITING, #10 TAB Prov:DEREK DUNBAR NP 12/05/16 Acetaminophen* (Tylophen*) 500 Mg Capsule, 1 CAP PO Q6H Y for PAIN AND OR ELEVATED TEMP, #20 CAP Prov:DEREK DUNBAR GRID MAKER 12/05/16 Fluticasone Propionate (Flonase Allergy Relief) 9.9 Ml [place].susp, 1 SPRAY NASAL DAILY, #1 BOTTLE TO EACH NOSTRIL Prov:MOLLY MILNER PA-C 11/03/16 Cetirizine Hcl* (Zyrtec*) 10 Mg Capsule, 10 MG PO DAILY, #10 TAB.CHEW Prov:MOLLY MILNER PA-C 11/03/16 Ciprofloxacin Hcl/Dexameth (Ciprodex Otic Suspension) 7.5 Ml D[place].susp, 4 DROP LEFT EAR BID for 7 Days, EA Prov:MOLLY MILNER PA-C 11/03/16 Acetaminophen* (Tylophen*) 500 Mg Capsule, 1 CAP PO Q6H Y for PAIN AND OR ELEVATED TEMP, #30 CAP Prov:MOLLY MILNER PA-C 11/03/16 Ibuprofen* (Motrin*) 600 Mg Tab, 600 MG PO Q6, #30 TAB Prov:MOLLY MILNER PA-C 11/03/16 Fluticasone Propionate (Flonase Allergy Relief) 9.9 Ml [place].susp, 1 SPRAY NASAL DAILY for 7 Days, #1 BOTTLE TO EACH NOSTRIL Prov:MICKY CHAN MD 07/29/16 Ibuprofen* (Motrin*) 600 Mg Tab, 600 MG PO Q6, #15 TAB Prov:MICKY CHAN MD 07/29/16 Azithromycin* (Zithromax*) 250 Mg Tablet, 250 MG PO .TylerPACK DIRECTED, #6 TAB TAKE 500 MG (2 TABS) THE FIRST DAY THEN 250 MG (1 TAB) DAYS 2-5 Prov:MICKY CHAN MD 07/29/16 Bacitracin* (Bacitracin Zinc Oint*) 28.35 Gm Oint, 1 APPLIC TOP BID, #1 TUB APPLI TO Prov:DEION MEAD PA-C 06/18/16 Cephalexin* (Keflex*) 500 Mg Capsule, 500 MG PO QID for 5 Days, CAP Prov:DEION MEAD PA-C 06/18/16 Famotidine* (Pepcid*) 20 Mg Tablet, 20 MG PO BID for 4 Days, TAB Prov:RAJAN GODDARD 06/09/16 Diphenhydramine Hcl* (Benadryl*) 25 Mg Cap, 25 MG PO Q6, #30 CAP Prov:RAJAN GODDARD 06/09/16 Hydromorphone Hcl* (Dilaudid*) 2 Mg Tablet, 2 MG PO Q6H Y for SEVERE PAIN LEVEL 7-10, #40 TAB Prov:NEVILLE AWAD MD 04/16/16 Pantoprazole* (Pantoprazole*) 40 Mg Tablet.dr, 40 MG PO BID, #60 3 Refills Prov:NEVILLE AWAD MD 04/16/16 Prednisone* (Prednisone*) 10 Mg Tab, 5 MG PO BID, #60 TAB Prov:NEVILLE AWAD MD 04/16/16 Primary Care Provider [facility] Pending Labs Laboratory Tests Test 01/11/17 05:54 Sodium Level 139mmol/L (135-144) Potassium Level 3.8mmol/L (3.5-5.1) Chloride Level 102mmol/L (97-110) Carbon Dioxide Level 24mmol/L (21-31) Anion Gap 17 (8-16) Blood Urea Nitrogen 9mg/dl (7-20) Creatinine 0.57mg/dl (0.44-1.00) Glucose Level 92mg/dl (70-220) Calcium Level 8.5mg/dl (8.4-10.2) Total Bilirubin 0.4mg/dl (0.2-1.3) Direct Bilirubin 0.00mg/dl (0.00-0.20) Indirect Bilirubin 0.4mg/dl (0-1.1) Aspartate Amino Transf (AST/SGOT) 18IU/L (15-46) Alanine Aminotransferase (ALT/SGPT) 21IU/L (13-69) Alkaline Phosphatase 75IU/L (42-121) Total Protein 7.0g/dl (6.1-8.1) Albumin 3.7g/dl (3.3-4.9) Globulin 3.30g/dl (1.3-3.2) Albumin/Globulin Ratio 1.12 PATO MEAD Jan 11, 2017 15:28
[2017-01-11] MEDS ORDERED: IMMUNE GLOBULIN (HUMAN) 6 GM INJ IV SCH (16:00)
--- NOTE | 2017-01-11 16:03 | PN ---
Date/Time of Note Date/Time of Note DATE: 01/11/17 TIME: 16:01 Assessment/Plan VTE Prophylaxis VTE Prophylaxis Intervention: SCD's Lines/Catheters IV Catheter Type (from [facility]): Peripheral IV Urinary Cath still in place: No Assessment/Plan Chief Complaint/Hosp Course Patient is a 31-year-old female with a past medical history of lupus and previous splenic infarcts who presented to [facility] for abdominal pain. Found to have acute infarct in her spleen in the anterior mid to lower spleen with interval decrease in size of previously seen splenic infarcts. Patient was admitted to the medicine service and evaluated by general surgery who opted for conservative management at this time unless new changes such as hemorrhage could be seen. Patient was also seen by hematology. They also agreed on conservative management and to follow-up with patient's sewing machine assembler in the outpatient setting as well as her assigner. It was thoroughly explained to the patient that she should follow-up with her assigner and sewing machine assembler in order to evaluate for possible anticoagulant disorders and the need for permanent anticoagulation. Patient was previously on anticoagulation, Xarelto, however needed to stop due to unknown bleeding and/ or hemolysis. Due to this prior history will hold off on anticoagulation for now and recommend follow-up with her sewing machine assembler as soon as possible. Patient to follow-up with her specialist for antiphospholipid antibody and return to the hospital if condition worsens. Problems: Assessment/Plan Holding discharge as sewing machine assembler requests additional time for IVIG and additional prednisone. Exam/Review of Systems Vital Signs Vitals Vital Signs Date Time Temp Pulse Resp B/P Pulse Ox O2 Delivery O2 Flow Rate FiO2 01/11/17 15:14 98.7 72 18 122/75 99 01/07/17 20:13 Room Air Intake and Output 01/10/17 01/10/17 01/11/17 15:00 23:00 07:00 Intake Total 2000 ml 1700 ml Balance 2000 ml 1700 ml Results Result Diagram: 01/09/17 0618 01/11/17 0554 Results 24 hrs Laboratory Tests Test 01/11/17 05:54 Sodium Level 139 Potassium Level 3.8 Chloride Level 102 Carbon Dioxide Level 24 Anion Gap 17 H Blood Urea Nitrogen 9 Creatinine 0.57 Glucose Level 92 Calcium Level 8.5 Total Bilirubin 0.4 Direct Bilirubin 0.00 Indirect Bilirubin 0.4 Aspartate Amino Transf (AST/SGOT) 18 Alanine Aminotransferase (ALT/SGPT) 21 Alkaline Phosphatase 75 Total Protein 7.0 Albumin 3.7 Globulin 3.30 H Albumin/Globulin Ratio 1.12 Medications Medications Current Medications Morphine Sulfate (morphine) 4 mg Q4 PRN IV PAIN Last administered on 01/11/17 08:46; Admin Dose 4 MG; Start 01/07/17 at 21:00 Ondansetron HCl 4 mg 4 mg Q6H PRN IV NAUSEA AND/OR VOMITING Last administered on 01/11/17 08:46; Admin Dose 4 MG; Start 01/07/17 at 21:30 Sodium Chloride (NS) 1,000 ml @ 70 mls/hr [id number] IV Last administered on 01/11 09:57; Admin Dose 70 MLS/HR; Start 01/07/17 at 22:16 Ondansetron HCl (Zofran Inj) 4 mg Q6H PRN IV NAUSEA AND/OR VOMITING; Start at 22:30 Metoclopramide HCl (Reglan) 10 mg Q6H PRN IV NAUSEA AND/OR VOMITING Last administered on 01/08/17 12:25; Admin Dose 10 MG; Start 01/07/17 at 22:30 Acetaminophen (Tylenol Tab) 650 mg Q6H PRN PO PAIN LEVEL 1-3 OR FEVER Last administered on 01/08/17 05:37; Admin Dose 650 MG; Start 01/07/17 at 22:30 Hydromorphone HCl (Dilaudid) 1 mg Q3 PRN IV PAIN LEVEL 7-10 Last administered on 01/11/17 12:38; Admin Dose 1 MG; Start 01/07/17 at 22:30 Pantoprazole (Protonix Iv) 40 mg DAILY@06 IV Last administered on 01/11/17 06: 12; Admin Dose 40 MG; Start 01/08/17 at 06:00 Amlodipine Besylate (Norvasc) 2.5 mg BID PO Last administered on 01/11/17 08: 47; Admin Dose 2.5 MG; Start 01/08/17 at 09:00 Azathioprine (Imuran) 50 mg BID PO Last administered on 01/11/17 08:47; Admin Dose 50 MG; Start 01/08/17 at 09:00 Hydroxychloroquine Sulfate (Plaquenil) 200 mg BID PO Last administered on 7/17/ 17at 08:47; Admin Dose 200 MG; Start 01/08/17 at 09:00 Prednisone (Prednisone) 20 mg BID PO ; Start 01/11/17 at 21:00 PATO MEAD Jan 11, 2017 16:03
--- NOTE | 2017-01-11 19:41 | PN ---
Date/Time of Note Date/Time of Note DATE: 01/11/17 TIME: 19:40 Assessment/Plan Lines/Catheters IV Catheter Type (from Nrs): Peripheral IV Henao in Place (from Nrs): No Assessment/Plan Assessment/Plan 31-year-old female with left upper quadrant abdominal pain, splenic infarct * In the absence of complications such as hemorrhage, abscess, pseudocyst, hemodynamic instability, etc. would again manage conservatively and nonoperatively. * Hemoglobin and platelets low, but stable. * Advance diet as tolerated * Do not see an indication for repeat CT as long as patient is clinically improving * IVIG per auto tire recapper The above was discussed with the patient in detail. Further recommendations will be made based on patient's clinical course. Subjective 24 Hr Interval Summary No acute events. Hemodynamically stable. Afebrile. Exam/Review of Systems Vital Signs Vitals Vital Signs Date Time Temp Pulse Resp B/P Pulse Ox O2 Delivery O2 Flow Rate FiO2 01/11/17 16:15 67 01/11/17 15:14 98.7 18 122/75 99 01/07/17 20:13 Room Air Intake and Output 01/10/17 01/10/17 01/11/17 15:00 23:00 07:00 Intake Total 2000 ml 1700 ml Balance 2000 ml 1700 ml Exam Free Text/Dictation GENERAL: Awake, alert, oriented x 3. No acute distress. CARDIOVASCULAR: S1S2, regular rate and rhythm. No murmurs appreciated. RESPIRATORY: Clear to auscultation bilaterally. ABDOMEN: Soft, bowel sounds present, nondistended, there is tenderness in the left upper quadrant extending to the left flank, improved. There is no rebound , guarding or evidence of peritonitis. EXTREMITIES: Deformities of bilateral hands consistent with chronic rheumatoid arthritis. Amputation of the right index finger. Results Result Diagram: 01/09/17 0618 01/11/17 0554 TITI VILLALTA MD Jan 11, 2017 19:41
[2017-01-11] MEDS ORDERED: IMMUNE GLOBULIN IV SCH (20:00)
[2017-01-11] MEDS ORDERED: EVAC CONTAINER IV SCH (20:00)
[2017-01-11] MEDS ORDERED: DIPHENHYDRAMINE 50 MG INJ IV PRN (20:30)
[2017-01-11] MEDS ORDERED: predniSONE 10 MG TAB PO SCH (21:00)
[2017-01-11] MEDS: EVAC CONTAINER IV SCH (22:05)
[2017-01-11] MEDS: IMMUNE GLOBULIN IV SCH (22:05)
[2017-01-11] MEDS: WATER STERILE FOR IV SCH (22:05)
[2017-01-12] VITALS (13 sets, daily range): BP systolic 95–129; BP diastolic 48–74; PULSE 58–74; RESP 16–18
[2017-01-12] MEDS: SOD CHLORIDE 0.9% 1,000 ML IV SCH ×2 (00:52→16:40)
[2017-01-12] MEDS: morphine 4 MG/ML VIAL IV PRN ×3 (01:01→22:10)
[2017-01-12] MEDS: PANTOPRAZOLE 40 MG INJ IV SCH (05:18)
[2017-01-12 07:22] LABS: ADD SCAN DIFF NO
[2017-01-12 07:37] LABS: ABNORMAL IP MESSAGE 1; BASOPHILS % 0.3 % (0.0-2.0); LYMPHOCYTES # 0.7 10^3/ul (0.8-2.9); LYMPHOCYTES % 20.6 % (15.0-51.0); MEAN CORPUSCULAR HEMOGLOBIN 22.5 pg (29.0-33.0); MEAN CORPUSCULAR HGB CONC 27.6 g/dl (32.0-37.0); MEAN CORPUSCULAR VOLUME 81.5 fl (82.0-101.0); MEAN PLATELET VOLUME 10.7 fl (7.4-10.4); MONOCYTE # 0.4 10^3/ul (0.3-0.9); MONOCYTES % 12.5 % (0.0-11.0); NEUTROPHIL # 2.3 10^3/ul (1.6-7.5); NEUTROPHILS % 65.4 % (39.0-77.0); PLATELET COUNT 77 10^3/UL (140-415); RED BLOOD COUNT 3.56 10^6/ul (4.20-5.40); RED CELL DISTRIBUTION WIDTH 18.5 % (11.5-14.5); WHITE BLOOD COUNT 3.5 10^3/ul (4.8-10.8)
[2017-01-12 07:52] LABS: ALBUMIN/GLOBULIN RATIO 0.68; BILIRUBIN,INDIRECT 0.2 mg/dl (0-1.1); BILIRUBIN,TOTAL 0.2 mg/dl (0.2-1.3); CALCIUM 8.8 mg/dl (8.4-10.2); CREATININE 0.56 mg/dl (0.44-1.00); TOTAL PROTEIN 7.4 g/dl (6.1-8.1)
[2017-01-12 07:56] LABS: CREATININE 0.54 mg/dl (0.44-1.00); MAGNESIUM 1.8 mg/dl (1.7-2.5); PHOSPHORUS 3.7 mg/dl (2.5-4.9); POTASSIUM 4.1 mmol/L (3.5-5.1)
[2017-01-12] MEDS: predniSONE 10 MG TAB PO SCH (08:35)
[2017-01-12] MEDS: HYDROXYCHLOROQUINE 200 MG TAB PO SCH ×2 (08:35→21:55)
[2017-01-12] MEDS: AZATHIOPRINE 50 MG TAB PO SCH ×2 (08:35→21:55)
[2017-01-12] MEDS: AMLODIPINE 5 MG TAB PO SCH ×2 (08:35→21:55)
[2017-01-12] MEDS: HYDROmorphONE 1 MG/ML SYG IV PRN ×2 (08:39→17:23)
[2017-01-12] MEDS: ONDANSETRON 4 MG INJ IV PRN (08:40)
--- NOTE | 2017-01-12 16:15 | PN ---
Date/Time of Note Date/Time of Note DATE: 01/12/17 TIME: 16:14 Assessment/Plan Lines/Catheters IV Catheter Type (from Nrs): Peripheral IV Henao in Place (from Nrs): No Assessment/Plan Assessment/Plan 31-year-old female with left upper quadrant abdominal pain, splenic infarct * In the absence of complications such as hemorrhage, abscess, pseudocyst, hemodynamic instability, etc. would again manage conservatively and nonoperatively. * Hemoglobin and platelets low, but stable. * IVIG per vp delivery * Continue current medical management The above was discussed with the patient in detail. Further recommendations will be made based on patient's clinical course. Subjective 24 Hr Interval Summary Feeling better. Tolerating diet. Afebrile. Exam/Review of Systems Vital Signs Vitals Vital Signs Date Time Temp Pulse Resp B/P Pulse Ox O2 Delivery O2 Flow Rate FiO2 01/12/17 16:07 61 01/12/17 15:20 98.3 18 129/66 99 Intake and Output 01/11/17 01/11/17 01/12/17 15:00 23:00 07:00 Intake Total 720 ml 1560 ml Balance 720 ml 1560 ml Exam Free Text/Dictation GENERAL: Awake, alert, oriented x 3. No acute distress. CARDIOVASCULAR: S1S2, regular rate and rhythm. No murmurs appreciated. RESPIRATORY: Clear to auscultation bilaterally. ABDOMEN: Soft, bowel sounds present, nondistended, there is mild tenderness in the left upper quadrant extending to the left flank, improved. There is no rebound, guarding or evidence of peritonitis. EXTREMITIES: Deformities of bilateral hands consistent with chronic rheumatoid arthritis. Amputation of the right index finger. Results Result Diagram: 01/12/17 0701 01/12/17 0701 TITI VILLALTA MD Jan 12, 2017 16:15
--- NOTE | 2017-01-12 16:35 | PN ---
Date/Time of Note Date/Time of Note DATE: 01/12/17 TIME: 16:33 Assessment/Plan VTE Prophylaxis VTE Prophylaxis Intervention: ambulation Lines/Catheters [facility] Peripheral IV Urinary Cath still in place: No Assessment/Plan Chief Complaint/Hosp Course Patient is a 31-year-old female with a past medical history of lupus, anemia, rheumatoid arthritis, may not, splenic infarction who presented to the hospital for left-sided abdominal pain, found to have acute splenic infarct. Currently in the hospital for IVIG Assessment Acute splenic infarct Left abdominal pain Lupus, Rheumatoid arthritis Hypertension Plan As needed medications for pain, -Continue IVIG per hematology for 2 more days -Continue home meds as needed -Higher dose of prednisone per hematology -We will follow on the telemetry floor -Abdominal pain has improved Tomasz Mead DO Problems: Subjective 24 Hr Interval Summary Free Text/Dictation no new complaints pain mildly better Exam/Review of Systems Vital Signs Vitals Vital Signs Date Time Temp Pulse Resp B/P Pulse Ox O2 Delivery O2 Flow Rate FiO2 01/12/17 16:07 61 01/12/17 15:20 98.3 18 129/66 99 Intake and Output 01/11/17 01/11/17 01/12/17 15:00 23:00 07:00 Intake Total 720 ml 1560 ml Balance 720 ml 1560 ml Exam Physical exam General: Patient is laying in bed and answers questions appropriately Mentation: Patient is alert and oriented 4, Head: Normocephalic atraumatic Eyes: EOMI, pupils reactive to light Neck: Supple, nontender, midline Respiratory: Clear to auscultation bilaterally Cardiovascular: regular rate, no obvious murmurs Gastrointestinal: mild left sided tenderness, bowel sounds heard. Neurological: Moves all extremities spontaneously Skin: No new skin lesions Results Result Diagram: 01/12/1770001/12/17700 Results 24 hrs Laboratory Tests Test 01/12/17 07:01 White Blood Count 3.5 #L Red Blood Count 3.56 L Hemoglobin 8.0 L Hematocrit 29.0 L Mean Corpuscular Volume 81.5 L Mean Corpuscular Hemoglobin 22.5 L Mean Corpuscular Hemoglobin Concent 27.6 L Red Cell Distribution Width 18.5 H Platelet Count 77 #L Mean Platelet Volume 10.7 H Neutrophils % 65.4 Lymphocytes % 20.6 Monocytes % 12.5 H Eosinophils % 0.0 Basophils % 0.3 Nucleated Red Blood Cells % 0.0 Neutrophils # 2.3 Lymphocytes # 0.7 L Monocytes # 0.4 Eosinophils # 0.0 Basophils # 0.0 Nucleated Red Blood Cells # 0.0 Sodium Level 143 Potassium Level 4.0 Chloride Level 101 Carbon Dioxide Level 27 Anion Gap 19 H Blood Urea Nitrogen 7 Creatinine 0.56 Glucose Level 123 Calcium Level 8.8 Phosphorus Level 3.7 Magnesium Level 1.8 Total Bilirubin 0.2 Direct Bilirubin 0.00 Indirect Bilirubin 0.2 Aspartate Amino Transf (AST/SGOT) 14 L Alanine Aminotransferase (ALT/SGPT) 21 Alkaline Phosphatase 72 Total Protein 7.4 Albumin 3.0 L Globulin 4.40 H Albumin/Globulin Ratio 0.68 Medications Medications Current Medications Morphine Sulfate (morphine) 4 mg Q4 PRN IV PAIN Last administered on 01/12/17 12:32; Admin Dose 4 MG; Start 01/07/17 at 21:00 Ondansetron HCl 4 mg 4 mg Q6H PRN IV NAUSEA AND/OR VOMITING Last administered on 01/12/17 08:40; Admin Dose 4 MG; Start 01/07/17 at 21:30 Sodium Chloride (NS) 1,000 ml @ 70 mls/hr [id number] IV Last administered on 01/12 00:52; Admin Dose 70 MLS/HR; Start 01/07/17 at 22:16 Ondansetron HCl (Zofran Inj) 4 mg Q6H PRN IV NAUSEA AND/OR VOMITING; Start at 22:30 Metoclopramide HCl (Reglan) 10 mg Q6H PRN IV NAUSEA AND/OR VOMITING Last administered on 01/08/17 12:25; Admin Dose 10 MG; Start 01/07/17 at 22:30 Acetaminophen (Tylenol Tab) 650 mg Q6H PRN PO PAIN LEVEL 1-3 OR FEVER Last administered on 01/08/17 05:37; Admin Dose 650 MG; Start 01/07/17 at 22:30 Hydromorphone HCl (Dilaudid) 1 mg Q3 PRN IV PAIN LEVEL 7-10 Last administered on 01/12/17 08:39; Admin Dose 1 MG; Start 01/07/17 at 22:30 Pantoprazole (Protonix Iv) 40 mg DAILY@06 IV Last administered on 01/12/17 05: 18; Admin Dose 40 MG; Start 01/08/17 at 06:00 Amlodipine Besylate (Norvasc) 2.5 mg BID PO Last administered on 01/12/17 08: 35; Admin Dose 2.5 MG; Start 01/08/17 at 09:00 Azathioprine (Imuran) 50 mg BID PO Last administered on 01/12/17 08:35; Admin Dose 50 MG; Start 01/08/17 at 09:00 Hydroxychloroquine Sulfate (Plaquenil) 200 mg BID PO Last administered on 08:35; Admin Dose 200 MG; Start 01/08/17 at 09:00 Prednisone 40 mg 40 mg DAILY PO Last administered on 01/12/17 08:35; Admin Dose 40 MG; Start 01/11/17 at 16:00 Immune Globulin/N/ A/Sterile Water ([place] Nf/ Evac Container/ Water Sterile For Inj) 600 ml @ 0 mls/hr Q24H IV Last administered on 01/11/17 22:05; Admin Dose 0 MLS/HR; Start 01/11/17 at 20:00; Stop 01/13/17 at 20:01 Diphenhydramine HCl (Benadryl) 25 mg DAILY PRN IV During plasmapharesis; Start 01/11/17 at 20:30 TOMASZ MEAD Jan 12, 2017 16:35
[2017-01-12] MEDS: EVAC CONTAINER IV SCH (21:56)
[2017-01-12] MEDS: IMMUNE GLOBULIN IV SCH (21:56)
[2017-01-12] MEDS: WATER STERILE FOR IV SCH (21:56)
--- NOTE | 2017-01-12 22:40 | CONS ---
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 At the current time we will continue to monitor her conservatively. Provide IV narcotic pain control. Monitor for hemodynamic instability. patient may need to have a splenectomy. Repeat CAT scan IF NEEDED CHECK ANTIPHOSPHOLIPID AB D/W PT'S ELL TUTOR- DR PERSAUD- RE SPLENECTOMY PER DR VILLALTA- In the absence of complications such as hemorrhage, abscess, pseudocyst, hemodynamic instability, etc. would again manage conservatively and nonoperatively. Anemia of chronic disease: We will continue to monitor H&H thrombocytopenia: Likely secondary to patient underlying autoimmune disorders. D/W DR PERSAUD RE- INCREASE PO PREDNISONE TO 40 MG PO QD IVIG X 3 D D/W DR PATO MEAD CONT CURRENT TREATMENT PLATELET COUNT IMPROVING SLE: Patient is currently on maintenance dose of prednisone which was increased over the past month or so. ABOVE POST Stress dose steroids Continue home medications. rheumatoid arthritis: Stable continue home medications. hypertension: Continue home medications. DVT and GI prophylaxis: SCDs, Protonix Problems: Consultation Date/Type/Reason Admit Date/Time Jan 07, 2017 at 17:45 Initial Consult Date 01/07/17 Type of Consultation: [facility] Referring Provider: CHERYLE LEONARD 24 HR Interval Summary Free Text/Dictation ALL NOTED ON IVIG for 2 more days ON Higher dose of prednisone PLATELET- IMPROVING Exam/Review of Systems Vital Signs Vitals Vital Signs Date Time Temp Pulse Resp B/P Pulse Ox O2 Delivery O2 Flow Rate FiO2 01/12/17 20:23 74 01/12/17 20:10 97.8 16 119/68 95 Intake and Output 01/11/17 01/11/17 01/12/17 15:00 23:00 07:00 Intake Total 720 ml 1560 ml Balance 720 ml 1560 ml Exam General: Patient is well-developed well-nourished The patient is alert oriented -3 lying comfortably in bed. HEENT: Atraumatic, normocephalic. The pupils are equal, round and reactive. Extraocular motor are intact Neck: Supple with full range of motion. No rigidity or meningismus Chest: Nontender Lungs: Clear to auscultation bilaterally no crackles rales or wheezing Heart: Normal S1-S2, Regular rhythm and rate. No murmur, S3, or S4 Abdomen: Left upper quadrant tenderness to palpation Extremities: Normal to inspection, no edema no cyanosis Neurologic: Normal mental status, speech normal, cranial nerves II through XII are intact, motor and sensory are intact, no focal weakness Results Result Diagram: 01/12/17 0701 01/12/17 0701 Results 24 hrs Laboratory Tests Test 01/12/17 07:01 White Blood Count 3.5 #L Red Blood Count 3.56 L Hemoglobin 8.0 L Hematocrit 29.0 L Mean Corpuscular Volume 81.5 L Mean Corpuscular Hemoglobin 22.5 L Mean Corpuscular Hemoglobin Concent 27.6 L Red Cell Distribution Width 18.5 H Platelet Count 77 #L Mean Platelet Volume 10.7 H Neutrophils % 65.4 Lymphocytes % 20.6 Monocytes % 12.5 H Eosinophils % 0.0 Basophils % 0.3 Nucleated Red Blood Cells % 0.0 Neutrophils # 2.3 Lymphocytes # 0.7 L Monocytes # 0.4 Eosinophils # 0.0 Basophils # 0.0 Nucleated Red Blood Cells # 0.0 Sodium Level 143 Potassium Level 4.0 Chloride Level 101 Carbon Dioxide Level 27 Anion Gap 19 H Blood Urea Nitrogen 7 Creatinine 0.56 Glucose Level 123 Calcium Level 8.8 Phosphorus Level 3.7 Magnesium Level 1.8 Total Bilirubin 0.2 Direct Bilirubin 0.00 Indirect Bilirubin 0.2 Aspartate Amino Transf (AST/SGOT) 14 L Alanine Aminotransferase (ALT/SGPT) 21 Alkaline Phosphatase 72 Total Protein 7.4 Albumin 3.0 L Globulin 4.40 H Albumin/Globulin Ratio 0.68 Medications Medications Current Medications Morphine Sulfate (morphine) 4 mg Q4 PRN IV PAIN Last administered on 01/12/17 22:10; Admin Dose 4 MG; Start 01/07/17 at 21:00 Ondansetron HCl (Zofran Inj) 4 mg Q6H PRN IV NAUSEA AND/OR VOMITING Last administered on 01/12/17 08:40; Admin Dose 4 MG; Start 01/07/17 at 21:30 Ondansetron HCl (Zofran Inj) 4 mg Q6H PRN IV NAUSEA AND/OR VOMITING; Start at 22:30 Metoclopramide HCl (Reglan) 10 mg Q6H PRN IV NAUSEA AND/OR VOMITING Last administered on 01/08/17 12:25; Admin Dose 10 MG; Start 01/07/17 at 22:30 Acetaminophen (Tylenol Tab) 650 mg Q6H PRN PO PAIN LEVEL 1-3 OR FEVER Last administered on 01/08/17 05:37; Admin Dose 650 MG; Start 01/07/17 at 22:30 Hydromorphone HCl (Dilaudid) 1 mg Q3 PRN IV PAIN LEVEL 7-10 Last administered on 01/12/17 17:23; Admin Dose 1 MG; Start 01/07/17 at 22:30 Pantoprazole (Protonix Iv) 40 mg DAILY@06 IV Last administered on 01/12/17 05: 18; Admin Dose 40 MG; Start 01/08/17 at 06:00 Amlodipine Besylate (Norvasc) 2.5 mg BID PO Last administered on 01/12/17 21: 55; Admin Dose 2.5 MG; Start 01/08/17 at 09:00 Azathioprine (Imuran) 50 mg BID PO Last administered on 01/12/17 21:55; Admin Dose 50 MG; Start 01/08/17 at 09:00 Hydroxychloroquine Sulfate (Plaquenil) 200 mg BID PO Last administered on 21:55; Admin Dose 200 MG; Start 01/08/17 at 09:00 Prednisone 40 mg 40 mg DAILY PO Last administered on 01/12/17 08:35; Admin Dose 40 MG; Start 01/11/17 at 16:00 Immune Globulin/N/ A/Sterile Water (Carimune Nf/ Evac Container/ Water Sterile For Inj) 600 ml @ 0 mls/hr Q24H IV Last administered on 01/12/17 21:56; Admin Dose 0 MLS/HR; Start 01/11/17 at 20:00; Stop 01/13/17 at 20:01 Diphenhydramine HCl (Benadryl) 25 mg DAILY PRN IV During plasmapharesis; Start 01/11/17 at 20:30 JORDAN RAMÍREZ MD Jan 12, 2017 22:40
[2017-01-13] VITALS (11 sets, daily range): BP systolic 108–132; BP diastolic 69–77; PULSE 53–80; RESP 18–20
[2017-01-13] MEDS: HYDROmorphONE 1 MG/ML SYG IV PRN ×3 (03:01→23:15)
[2017-01-13] MEDS: PANTOPRAZOLE 40 MG INJ IV SCH (05:41)
[2017-01-13 07:40] LABS: ADD SCAN DIFF NO
[2017-01-13 07:50] LABS: ABNORMAL IP MESSAGE 1; BASOPHILS % 0.3 % (0.0-2.0); EOSINOPHILS % 0.6 % (0.0-7.0); HEMATOCRIT 28.5 % (37.0-47.0); HEMOGLOBIN 7.9 g/dl (12.0-16.0); LYMPHOCYTES # 1.1 10^3/ul (0.8-2.9); LYMPHOCYTES % 31.2 % (15.0-51.0); MEAN CORPUSCULAR HEMOGLOBIN 22.3 pg (29.0-33.0); MEAN CORPUSCULAR HGB CONC 27.7 g/dl (32.0-37.0); MEAN CORPUSCULAR VOLUME 80.5 fl (82.0-101.0); MONOCYTE # 0.4 10^3/ul (0.3-0.9); MONOCYTES % 12.4 % (0.0-11.0); NEUTROPHIL # 1.9 10^3/ul (1.6-7.5); NEUTROPHILS % 54.6 % (39.0-77.0); PLATELET COUNT 70 10^3/UL (140-415); RED BLOOD COUNT 3.54 10^6/ul (4.20-5.40); RED CELL DISTRIBUTION WIDTH 18.4 % (11.5-14.5); WHITE BLOOD COUNT 3.5 10^3/ul (4.8-10.8)
[2017-01-13 08:21] LABS: CALCIUM 8.5 mg/dl (8.4-10.2); CREATININE 0.61 mg/dl (0.44-1.00); MAGNESIUM 1.8 mg/dl (1.7-2.5); PHOSPHORUS 4.2 mg/dl (2.5-4.9); POTASSIUM 3.8 mmol/L (3.5-5.1)
[2017-01-13] MEDS: HYDROXYCHLOROQUINE 200 MG TAB PO SCH ×2 (08:56→19:59)
[2017-01-13] MEDS: AZATHIOPRINE 50 MG TAB PO SCH ×2 (08:56→19:59)
[2017-01-13] MEDS: predniSONE 10 MG TAB PO SCH (08:56)
[2017-01-13] MEDS: AMLODIPINE 5 MG TAB PO SCH ×2 (08:57→19:59)
[2017-01-13] MEDS: ONDANSETRON 4 MG INJ IV PRN (08:57)
[2017-01-13] MEDS: morphine 4 MG/ML VIAL IV PRN ×2 (08:58→19:59)
--- NOTE | 2017-01-13 14:54 | PN ---
Date/Time of Note Date/Time of Note DATE: 01/13/17 TIME: 14:53 Assessment/Plan VTE Prophylaxis VTE Prophylaxis Intervention: ambulation Lines/Catheters IV Catheter Type (from [facility]): Peripheral IV Urinary Cath still in place: No Assessment/Plan Chief Complaint/Hosp Course Patient is a 31-year-old female with a past medical history of lupus, anemia, rheumatoid arthritis, may not, splenic infarction who presented to the hospital for left-sided abdominal pain, found to have acute splenic infarct. Currently in the hospital for IVIG Assessment Acute splenic infarct Left abdominal pain thrombocytopenia Lupus, Rheumatoid arthritis Hypertension Plan As needed medications for pain, -Continue IVIG per hematology for 2 more days -Continue home meds as needed -Higher dose of prednisone per hematology -We will follow on the telemetry floor -Abdominal pain has improved Tomasz Mead DO Problems: Exam/Review of Systems Vital Signs Vitals Vital Signs Date Time Temp Pulse Resp B/P Pulse Ox O2 Delivery O2 Flow Rate FiO2 01/13/17 12:22 53 01/13/17 11:20 98.5 19 118/70 100 Intake and Output 01/12/17 01/12/17 01/13/17 15:00 23:00 07:00 Intake Total 800 ml 1800 ml Balance 800 ml 1800 ml Exam Physical exam General: Patient is laying in bed and answers questions appropriately Mentation: Patient is alert and oriented 4, Head: Normocephalic atraumatic Eyes: EOMI, pupils reactive to light Neck: Supple, nontender, midline Respiratory: Clear to auscultation bilaterally Cardiovascular: regular rate, no obvious murmurs Gastrointestinal: mild left sided tenderness, bowel sounds heard. Neurological: Moves all extremities spontaneously Skin: No new skin lesions Results Result Diagram: 01/13/17 0701/13/17 0700 Results 24 hrs Laboratory Tests Test 01/13/17 07:00 White Blood Count 3.5 L Red Blood Count 3.54 L Hemoglobin 7.9 L Hematocrit 28.5 L Mean Corpuscular Volume 80.5 L Mean Corpuscular Hemoglobin 22.3 L Mean Corpuscular Hemoglobin Concent 27.7 L Red Cell Distribution Width 18.4 H Platelet Count 70 L Mean Platelet Volume Neutrophils % 54.6 Lymphocytes % 31.2 Monocytes % 12.4 H Eosinophils % 0.6 Basophils % 0.3 Nucleated Red Blood Cells % 0.0 Neutrophils # 1.9 Lymphocytes # 1.1 Monocytes # 0.4 Eosinophils # 0.0 Basophils # 0.0 Nucleated Red Blood Cells # 0.0 Sodium Level 143 Potassium Level 3.8 Chloride Level 104 Carbon Dioxide Level 28 Anion Gap 15 Blood Urea Nitrogen 8 Creatinine 0.61 Glucose Level 84 Calcium Level 8.5 Phosphorus Level 4.2 Magnesium Level 1.8 Medications Medications Current Medications Morphine Sulfate (morphine) 4 mg Q4 PRN IV PAIN Last administered on 01/13/17 08:58; Admin Dose 4 MG; Start 01/07/17 at 21:00 Ondansetron HCl (Zofran Inj) 4 mg Q6H PRN IV NAUSEA AND/OR VOMITING Last administered on 01/13/17 08:57; Admin Dose 4 MG; Start 01/07/17 at 21:30 Ondansetron HCl (Zofran Inj) 4 mg Q6H PRN IV NAUSEA AND/OR VOMITING; Start at 22:30 Metoclopramide HCl (Reglan) 10 mg Q6H PRN IV NAUSEA AND/OR VOMITING Last administered on 01/08/17 12:25; Admin Dose 10 MG; Start 01/07/17 at 22:30 Acetaminophen (Tylenol Tab) 650 mg Q6H PRN PO PAIN LEVEL 1-3 OR FEVER Last administered on 01/08/17 05:37; Admin Dose 650 MG; Start 01/07/17 at 22:30 Hydromorphone HCl (Dilaudid) 1 mg Q3 PRN IV PAIN LEVEL 7-10 Last administered on 01/13/17 03:01; Admin Dose 1 MG; Start 01/07/17 at 22:30 Pantoprazole (Protonix Iv) 40 mg DAILY@06 IV Last administered on 01/13/17 05: 41; Admin Dose 40 MG; Start 01/08/17 at 06:00 Amlodipine Besylate (Norvasc) 2.5 mg BID PO Last administered on 01/13/17 08: 57; Admin Dose 2.5 MG; Start 01/08/17 at 09:00 Azathioprine (Imuran) 50 mg BID PO Last administered on 01/13/17 08:56; Admin Dose 50 MG; Start 01/08/17 at 09:00 Hydroxychloroquine Sulfate (Plaquenil) 200 mg BID PO Last administered on 08:56; Admin Dose 200 MG; Start 01/08/17 at 09:00 Prednisone 40 mg 40 mg DAILY PO Last administered on 01/13/17 08:56; Admin Dose 40 MG; Start 01/11/17 at 16:00 Immune Globulin/N/ A/Sterile Water (Carimune Nf/ Evac Container/ Water Sterile For Inj) 600 ml @ 0 mls/hr Q24H IV Last administered on 01/12/17 21:56; Admin Dose 0 MLS/HR; Start 01/11/17 at 20:00; Stop 01/13/17 at 20:01 Diphenhydramine HCl (Benadryl) 25 mg DAILY PRN IV During plasmapharesis; Start 01/11/17 at 20:30 TOMASZ MEAD Jan 13, 2017 14:54
[2017-01-13] MEDS: EVAC CONTAINER IV SCH (19:59)
[2017-01-13] MEDS: IMMUNE GLOBULIN IV SCH (19:59)
[2017-01-13] MEDS: WATER STERILE FOR IV SCH (19:59)
--- NOTE | 2017-01-13 21:09 | CONS ---
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 At the current time we will continue to monitor her conservatively. Provide IV narcotic pain control. Monitor for hemodynamic instability. patient may need to have a splenectomy. 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 would again manage conservatively and nonoperatively. Anemia of chronic disease: We will continue to monitor H&H thrombocytopenia: Likely secondary to patient underlying autoimmune disorders. D/W DR PERSAUD RE- INCREASE PO PREDNISONE TO 40 MG PO QD IVIG X 3 D D/W DR PATO MEAD COMPLETE CURRENT TREATMENT PLATELET COUNT SL IMPROVING SLE: Patient is currently on maintenance dose of prednisone which was increased over the past month or so. ABOVE POST Stress dose steroids Continue home medications. PREDNISONE 40 AND IVIG rheumatoid arthritis: Stable continue home medications. hypertension: Continue home medications. DVT and GI prophylaxis: SCDs, Protonix Problems: Consultation Date/Type/Reason Admit Date/Time Jan 07, 2017 at 17:45 Initial Consult Date 01/07/17 Type of Consultation: [facility] Referring Provider: CHERYLE LEONARD 24 HR Interval Summary Free Text/Dictation all noted getting IVIG AND STEROIDS Exam/Review of Systems Vital Signs Vitals Vital Signs Date Time Temp Pulse Resp B/P Pulse Ox O2 Delivery O2 Flow Rate FiO2 01/13/17 20:19 66 01/13/17 19:55 98.7 20 132/75 92 Intake and Output 01/12/17 01/12/17 01/13/17 15:00 23:00 07:00 Intake Total 800 ml 1800 ml Balance 800 ml 1800 ml Exam General: Patient is well-developed well-nourished The patient is alert oriented -3 lying comfortably in bed. HEENT: Atraumatic, normocephalic. The pupils are equal, round and reactive. Extraocular motor are intact Neck: Supple with full range of motion. No rigidity or meningismus Chest: Nontender Lungs: Clear to auscultation bilaterally no crackles rales or wheezing Heart: Normal S1-S2, Regular rhythm and rate. No murmur, S3, or S4 Abdomen: Left upper quadrant tenderness to palpation Extremities: Normal to inspection, no edema no cyanosis Neurologic: Normal mental status, speech normal, cranial nerves II through XII are intact, motor and sensory are intact, no focal weakness Results Result Diagram: 01/13/17 0700 01/13/17 0700 Results 24 hrs Laboratory Tests Test 01/13/17 07:00 White Blood Count 3.5 L Red Blood Count 3.54 L Hemoglobin 7.9 L Hematocrit 28.5 L Mean Corpuscular Volume 80.5 L Mean Corpuscular Hemoglobin 22.3 L Mean Corpuscular Hemoglobin Concent 27.7 L Red Cell Distribution Width 18.4 H Platelet Count 70 L Mean Platelet Volume Neutrophils % 54.6 Lymphocytes % 31.2 Monocytes % 12.4 H Eosinophils % 0.6 Basophils % 0.3 Nucleated Red Blood Cells % 0.0 Neutrophils # 1.9 Lymphocytes # 1.1 Monocytes # 0.4 Eosinophils # 0.0 Basophils # 0.0 Nucleated Red Blood Cells # 0.0 Sodium Level 143 Potassium Level 3.8 Chloride Level 104 Carbon Dioxide Level 28 Anion Gap 15 Blood Urea Nitrogen 8 Creatinine 0.61 Glucose Level 84 Calcium Level 8.5 Phosphorus Level 4.2 Magnesium Level 1.8 Medications Medications Current Medications Morphine Sulfate (morphine) 4 mg Q4 PRN IV PAIN Last administered on 01/13/17 19:59; Admin Dose 4 MG; Start 01/07/17 at 21:00 Ondansetron HCl (Zofran Inj) 4 mg Q6H PRN IV NAUSEA AND/OR VOMITING Last administered on 01/13/17 08:57; Admin Dose 4 MG; Start 01/07/17 at 21:30 Ondansetron HCl (Zofran Inj) 4 mg Q6H PRN IV NAUSEA AND/OR VOMITING; Start at 22:30 Metoclopramide HCl (Reglan) 10 mg Q6H PRN IV NAUSEA AND/OR VOMITING Last administered on 01/08/17 12:25; Admin Dose 10 MG; Start 01/07/17 at 22:30 Acetaminophen (Tylenol Tab) 650 mg Q6H PRN PO PAIN LEVEL 1-3 OR FEVER Last administered on 01/08/17 05:37; Admin Dose 650 MG; Start 01/07/17 at 22:30 Hydromorphone HCl (Dilaudid) 1 mg Q3 PRN IV PAIN LEVEL 7-10 Last administered on 01/13/17 15:30; Admin Dose 1 MG; Start 01/07/17 at 22:30 Pantoprazole (Protonix Iv) 40 mg DAILY@06 IV Last administered on 01/13/17 05: 41; Admin Dose 40 MG; Start 01/08/17 at 06:00 Amlodipine Besylate (Norvasc) 2.5 mg BID PO Last administered on 01/13/17 19: 59; Admin Dose 2.5 MG; Start 01/08/17 at 09:00 Azathioprine (Imuran) 50 mg BID PO Last administered on 01/13/17 19:59; Admin Dose 50 MG; Start 01/08/17 at 09:00 Hydroxychloroquine Sulfate (Plaquenil) 200 mg BID PO Last administered on 19:59; Admin Dose 200 MG; Start 01/08/17 at 09:00 Prednisone (Prednisone) 40 mg DAILY PO Last administered on 01/13/17 08:56; Admin Dose 40 MG; Start 01/11/17 at 16:00 Diphenhydramine HCl (Benadryl) 25 mg DAILY PRN IV During plasmapharesis; Start 01/11/17 at 20:30 JORDAN RAMÍREZ MD Jan 13, 2017 21:09
[2017-01-14] VITALS (9 sets, daily range): BP systolic 110–133; BP diastolic 55–74; PULSE 55–74; RESP 18–20
[2017-01-14] MEDS: morphine 4 MG/ML VIAL IV PRN ×2 (01:23→11:23)
[2017-01-14] MEDS: PANTOPRAZOLE 40 MG INJ IV SCH (06:05)
[2017-01-14] MEDS: HYDROmorphONE 1 MG/ML SYG IV PRN ×2 (06:05→14:06)
[2017-01-14] MEDS: ONDANSETRON 4 MG INJ IV PRN ×2 (06:09→11:23)
[2017-01-14 08:06] LABS: ADD SCAN DIFF NO
[2017-01-14 08:16] LABS: ABNORMAL IP MESSAGE 1; BASOPHILS % 0.2 % (0.0-2.0); EOSINOPHILS % 0.4 % (0.0-7.0); HEMOGLOBIN 8.2 g/dl (12.0-16.0); LYMPHOCYTES % 19.1 % (15.0-51.0); MEAN CORPUSCULAR HGB CONC 27.3 g/dl (32.0-37.0); MEAN CORPUSCULAR VOLUME 80.4 fl (82.0-101.0); MONOCYTE # 0.5 10^3/ul (0.3-0.9); MONOCYTES % 10.1 % (0.0-11.0); NEUTROPHIL # 3.6 10^3/ul (1.6-7.5); NEUTROPHILS % 69.2 % (39.0-77.0); RED BLOOD COUNT 3.73 10^6/ul (4.20-5.40); RED CELL DISTRIBUTION WIDTH 18.9 % (11.5-14.5); WHITE BLOOD COUNT 5.1 10^3/ul (4.8-10.8)
[2017-01-14 08:22] LABS: PLATELET COUNT 68 10^3/UL (140-415)
[2017-01-14] MEDS: AZATHIOPRINE 50 MG TAB PO SCH (08:31)
[2017-01-14] MEDS: predniSONE 10 MG TAB PO SCH (08:31)
[2017-01-14] MEDS: AMLODIPINE 5 MG TAB PO SCH (08:31)
[2017-01-14] MEDS: HYDROXYCHLOROQUINE 200 MG TAB PO SCH (08:31)
[2017-01-14 08:37] LABS: CALCIUM 8.8 mg/dl (8.4-10.2); CREATININE 0.61 mg/dl (0.44-1.00); MAGNESIUM 1.8 mg/dl (1.7-2.5); PHOSPHORUS 4.2 mg/dl (2.5-4.9); POTASSIUM 3.7 mmol/L (3.5-5.1)
[2017-01-14] MEDS ORDERED: PRED20TA PO (11:05)
--- NOTE | 2017-01-14 21:14 | CONS ---
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 At the current time we will continue to monitor her conservatively. Provide IV narcotic pain control. Monitor for hemodynamic instability. patient may need to have a splenectomy. 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 would again manage conservatively and nonoperatively. Anemia of chronic disease: thrombocytopenia: Likely secondary to patient underlying autoimmune disorders. D/W DR PERSAUD RE- INCREASE PO PREDNISONE TO 40 MG PO QD IVIG X 3 D D/W DR PATO MEAD COMPLETE CURRENT TREATMENT PLATELET COUNT SL IMPROVING SLE: Patient is currently on maintenance dose of prednisone which was increased over the past month or so. ABOVE POST Stress dose steroids Continue home medications. PREDNISONE 40 AND IVIG rheumatoid arthritis: Stable continue home medications. hypertension: Continue home medications. DVT and GI prophylaxis: SCDs, Protonix Problems: Consultation Date/Type/Reason Admit Date/Time Jan 07, 2017 at 17:45 Initial Consult Date 01/07/17 Type of Consultation: [facility] Referring Provider: CHERYLE LEONARD 24 HR Interval Summary Free Text/Dictation all noted Exam/Review of Systems Vital Signs Vitals Vital Signs Date Time Temp Pulse Resp B/P Pulse Ox O2 Delivery O2 Flow Rate FiO2 01/14/17 15:07 98.6 62 18 133/74 92 Intake and Output 01/13/17 01/13/17 01/14/17 14:59 22:59 06:59 Intake Total 1600 ml Balance 1600 ml Exam General: Patient is well-developed well-nourished The patient is alert oriented -3 lying comfortably in bed. HEENT: Atraumatic, normocephalic. The pupils are equal, round and reactive. Extraocular motor are intact Neck: Supple with full range of motion. No rigidity or meningismus Chest: Nontender Lungs: Clear to auscultation bilaterally no crackles rales or wheezing Heart: Normal S1-S2, Regular rhythm and rate. No murmur, S3, or S4 Abdomen: Left upper quadrant tenderness to palpation Extremities: Normal to inspection, no edema no cyanosis Neurologic: Normal mental status, speech normal, cranial nerves II through XII are intact, motor and sensory are intact, no focal weakness Results Result Diagram: 01/14/17 0713 01/14/17 0713 Results 24 hrs Laboratory Tests Test 01/14/17 07:13 White Blood Count 5.1 # Red Blood Count 3.73 L Hemoglobin 8.2 L Hematocrit 30.0 L Mean Corpuscular Volume 80.4 L Mean Corpuscular Hemoglobin 22.0 L Mean Corpuscular Hemoglobin Concent 27.3 L Red Cell Distribution Width 18.9 H Platelet Count 68 L Mean Platelet Volume Neutrophils % 69.2 Lymphocytes % 19.1 Monocytes % 10.1 Eosinophils % 0.4 Basophils % 0.2 Nucleated Red Blood Cells % 0.0 Neutrophils # 3.6 Lymphocytes # 1.0 Monocytes # 0.5 Eosinophils # 0.0 Basophils # 0.0 Nucleated Red Blood Cells # 0.0 Sodium Level 142 Potassium Level 3.7 Chloride Level 99 Carbon Dioxide Level 30 Anion Gap 17 H Blood Urea Nitrogen 11 Creatinine 0.61 Glucose Level 82 Calcium Level 8.8 Phosphorus Level 4.2 Magnesium Level 1.8 JORDAN RAMÍREZ MD Jan 14, 2017 21:14
== END 2017-01-14 15:30 | disposition home or self-care (01) | DRG 816 ==
LOC: FTE 12:38 → MS3 17:45 → TEL 23:20
PROVIDERS: ADMIT Family Medicine; ATTEND Family Medicine
DX: D73.5 Infarction of spleen (principal); D69.6 Thrombocytopenia, unspecified; M32.9 Systemic lupus erythematosus, unspecified; D50.0 Iron deficiency anemia secondary to blood loss (chronic); I73.00 Raynaud's syndrome without gangrene; I10 Essential (primary) hypertension; M06.9 Rheumatoid arthritis, unspecified; E66.9 Obesity, unspecified; Z79.890 Hormone replacement therapy; Z89.021 Acquired absence of right finger(s); Z79.52 Long term (current) use of systemic steroids; Z88.1 Allergy status to other antibiotic agents; Z68.32 Body mass index [BMI] 32.0-32.9, adult
CPT/HCPCS: 74177; 80048; 80053; 81001; 83690; 83735; 84100; 84703; 85025; 85651; 86850; 86900; 86901; 87040; 87086; 90670; 90733; C9113; J1170; J1566; J2270; J2405; J2765; J3480; J7030; J7500; J7512; Q9967

== ENCOUNTER 2017-02-10 09:20 | Emergency (ER) | payer OTHER ==
[~2017-02-10] VITALS: Ht 162.6 cm; Wt 87.0 kg
[~2017-02-10 09:20] MED LIST changes: -ACET500C5 PO; -AMLO2.5T78 PO; +AMLO5TAB4 PO; +AZAT50TA31 PO; -AZIT250T94 PO; -BACI28.34 TOP; -BEN25 PO; -CALC-176 PO; -CEPH-443 PO; -CETI10CA PO; -CIPR7.5D4 LEFT EAR; -ELEC100080 PO; -FAMO-96 PO; -FLUT9.9S NASAL; -FOLI-49 PO; +HYDR200T39 PO; -HYDR200T5 PO; -HYDR2TAB36 PO; -IBUP-1542 PO; -ONDA4TAB14 PO; +OXYC-209 PO; +PRED20TA PO
[2017-02-10 09:23] VITALS: Ht 162.6 cm; Wt 87.0 kg
[2017-02-10] MEDS ORDERED: KETOROLAC 30 MG INJ IV STA (10:07)
[2017-02-10] MEDS ORDERED: CLINDAMYCIN 900 MG/D5W (PMX) 50 ML IVPB SCH (10:30)
[2017-02-10] MEDS ORDERED: SULF1TAB31 PO (11:04)
[2017-02-10] MEDS ORDERED: CEPH-443 PO (11:04)
--- NOTE | 2017-02-10 11:04 | ERD ---
ER Documentation Chief Complaint Date/Time DATE: 02/10/17 Chief Complaint Abscess on left buttocks x 1 week HPI The patient is a 31-year-old female with a past medical history of lupus, anemia , rheumatoid arthritis, Raynaud's, who presents to the Emergency Department with complaint of an abscess of the left buttock. The patient reports her symptoms initially began 1 week ago, with onset of swelling, redness, tenderness and warmth to the left buttock. She was seen by her primary medical provider several days later, and noted to have a spontaneously draining abscess to the left buttock. Therefore, the patient was advised that no incision and drainage procedure was indicated and she was discharged home. However, the patient reports that she continues to experience drainage from the left buttock , in addition to pain and swelling. She denies fevers, sweats, chills, nausea or vomiting. Denies any recent antibiotic use. Denies any red streaking or spreading redness towards the lower extremity. She rates her current pain a 7 out of 10, but has not yet taken any medication for pain relief. No other complaints at this time. ROS All systems reviewed and are negative except as per history of present illness. Medications Home Meds Active Scripts Cephalexin* (Keflex*) 500 Mg Capsule, 500 MG PO QID for 7 Days, CAP Prov:MINA BLACK PA-C 02/10/17 Sulfamethoxazole/Trimethoprim* (Bactrim Ds* Tablet) 1 Each Tablet, 1 TAB PO BID for 10 Days, TAB Prov:MINA BLACK PA-C 02/10/17 Prednisone* (Prednisone*) 20 Mg Tab, 40 MG PO DAILY for 14 Days, #28 TAB Prov:PATO MEAD 01/14/17 Oxycodone HCl/Acetaminophen (Percocet 10-325 mg Tablet) 1 Each Tablet, 1 EACH PO Q8 Y for PAIN for 7 Days, #21 TAB Prov:PATO MEAD 01/11/17 Reported Medications Pantoprazole* (Pantoprazole*) 40 Mg Tablet.dr, 40 MG PO AC BREAKFAST, TAB 01/07/17 Prednisone* (Prednisone*) 10 Mg Tab, 10 MG PO BID, TAB 01/07/17 Azathioprine* (Imuran*) 50 Mg Tab, 50 MG PO BID, TAB 01/07/17 Hydroxychloroquine Sulfate* (Hydroxychloroquine Sulfate*) 200 Mg Tablet, 200 MG PO BID, TAB 01/07/17 Amlodipine Besylate* (Norvasc*) 5 Mg Tablet, 2.5 MG PO BID, TAB 01/07/17 Allergies Allergies: Coded Allergies: vancomycin (Verified Allergy, Unknown, 02/10/17) PMhx/Soc History of Surgery: Yes (RIGHT 2ND DIGIT AMPUTATION) Anesthesia Reaction: No Hx Neurological Disorder: No Hx Respiratory Disorders: No Hx Cardiac Disorders: No Hx Psychiatric Problems: No Hx Miscellaneous Medical Probl: Yes (ANEMIA, RAYNAUDS) Hx Alcohol Use: No Hx Substance Use: No Hx Tobacco Use: No Smoking Status: Never smoker Physical Exam Vitals Vital Signs Date Time Temp Pulse Resp B/P Pulse Ox O2 Delivery O2 Flow Rate FiO2 02/10/17 09:23 97.3 87 18 124/65 96 Physical Exam Const: Well-developed, well-nourished, in no acute distress. Head: Normocephalic. Atraumatic Eyes: Normal Conjunctiva ENT: Normal External Ears, Nose and Mouth. Moist mucous membranes. Neck: Supple. Full range of motion. Resp: Clear to auscultation bilaterally Cardio: Regular rate and rhythm. Abd: Soft, non tender, non distended. Skin: Spontaneously draining open abscess to the left buttock with purulent drainage expressed upon palpation. There is surrounding induration, warmth, erythema, mild swelling and tenderness to palpation. No lymphatic streaking. No crepitus. No sinus tracts noted. Abscess does not appear to spread/include perianal/perirectal region. Back: No midline or flank tenderness Ext: No cyanosis, or edema. Moving all extremities. Neur: Awake and alert Psych: Cooperative; appropriate. Results 24 hrs Current Medications Medications (Trade) Dose Ordered Sig/Mansi Route PRN Reason Start Time Stop Time Status Last Admin Dose Admin Clindamycin HCl/ Dextrose (Cleocin 900 Mg/ D5W (Pmx)) 50 ml @ 50 mls/hr ONCE IVPB 02/10/17 10:30 02/10/17 11:29 DC 02/10/17 10:25 Ketorolac Tromethamine (Toradol) 30 mg ONCE STAT IV 02/10/17 10:07 02/10/17 10:08 DC 02/10/17 10:26 Procedures/MDM This is a 31-year-old female presenting to the Emergency Department with a spontaneously draining, open abscess and cellulitis to the left buttock that began 1 week ago. The area was firm and indurated, with no palpable fluctuance. Spontaneous purulent drainage was noted. Otherwise, no bleeding. No lymphatic streaking. No crepitus. No pain out of proportion to examination. Compartments are soft, with no evidence of compartment syndrome. The patients oropharynx and airway were stable, and she was afebrile with no recent history of fevers or chills. The patient was given a dose of Clindamycin IV in the ED. At this time, patients abscess already open and spontaneously draining, no indication for I&D at this time. The patient is in stable condition and therefore can be discharged home with prescriptions for Bactrim DS and Keflex and strict return precautions for signs of deteriorating or worsening condition. The patient is strongly advised to follow up with a primary care provider within 2 days for reevaluation and further management, or return to the ER sooner for worsening symptoms. Additionally, she is advised to return sooner if she notices the erythema spreading beyond the current borders. I shared my medical decision making and plan with the patient and she verbally understands and agrees with the plan for further observation and care as an outpatient. At the time of discharge all questions were answered. Departure Diagnosis: Primary Impression: Abscess of left buttock Condition: Stable Patient Instructions: Abscess Drainage, Abscess, Antiobiotic Treatment Only Additional Instructions: Call your primary care doctor TOMORROW for an appointment during the next 2 days for wound check, reevaluation and further management. See the doctor sooner or return here if your condition worsens before your appointment time. Return for any fevers, worsening pain, spreading redness, or any other concerning symptoms. MINA BLACK PA-C Feb 10, 2017 11:04
== END 2017-02-10 11:10 | disposition home or self-care (01) ==
LOC: FTE 09:20
DX: L02.31 Cutaneous abscess of buttock (principal)
CPT/HCPCS: 96374; 96375; J1885; Z7502; Z7610

== ENCOUNTER 2018-02-01 14:40 | Emergency (ER) | END 2018-02-01 16:13 | disposition home or self-care (01) ==

== ENCOUNTER 2018-03-31 22:22 | Emergency (ER) | END 2018-04-01 01:48 | disposition home or self-care (01) ==

== ENCOUNTER 2018-04-03 16:59 | Emergency (ER) | END 2018-04-03 19:40 | disposition home or self-care (01) ==

== ENCOUNTER 2018-04-19 20:57 | Emergency (ER) | END 2018-04-19 23:57 | disposition home or self-care (01) ==

== ENCOUNTER 2018-06-11 18:47 | Emergency (ER) | END 2018-06-11 23:07 | disposition home or self-care (01) ==

== ENCOUNTER 2018-08-17 14:22 | Emergency (ER) | payer OTHER ==
[~2018-08-17] VITALS: Ht 162.6 cm; Wt 90.0 kg
[~2018-08-17 14:22] MED LIST changes: +ACET-2047 PO; +ACET325T33 PO; +BEN25 PO; +BISM-34 PO; +CEPH-443 PO; +CIPR500T4 PO; +IBUP800T48 PO; +MED4DP PO; +NAPR-985 PO; +ONDA4TAB14 PO; +ONDA8TAB14 PO; +OSEL75CA23 PO; +SULF1TAB31 PO
[2018-08-17 14:28] VITALS: BP 185/97; PULSE 89; RESP 18; Ht 162.6 cm; Wt 90.0 kg
[2018-08-17] MEDS ORDERED: ALBUTEROL 0.083% (NEB) 2.5 MG/3 ML AMP HHN STA ×2 (14:56→15:46)
[2018-08-17] MEDS ORDERED: PRED20TA PO (14:56)
[2018-08-17] MEDS ORDERED: ALBU2.5V3 NEB (14:56)
[2018-08-17] MEDS ORDERED: predniSONE 20 MG TAB PO ONE (15:00)
[2018-08-17] MEDS ORDERED: IPRATROPIUM (NEB) 0.5 MG/2.5 ML AMP HHN ONE (16:00)
[2018-08-17] MEDS ORDERED: AZIT250T PO (16:28)
--- NOTE | 2018-08-17 16:31 | ERD ---
ER Documentation Chief Complaint Chief Complaint COUGH AND CONGESTION WITH INTERMITTENT FEVER X 1 WEEK HPI 33-year-old female presents with a history of active cough, intermittent subjective fevers, congestion for last week. She made wheezing. She has a history of rheumatoid arthritis and lupus and takes prednisone 5 mg a day. She denies previous history of asthma. She has vomiting, abdominal pain, additional symptoms. ROS All systems reviewed and are negative except as per history of present illness. Medications Home Meds Active Scripts Azithromycin* (Zithromax*) 250 Mg Tablet, 250 MG PO .ZPACK DIRECTED, #6 TAB TAKE 500 MG (2 TABS) THE FIRST DAY THEN 250 MG (1 TAB) DAYS 2-5 Prov:MICKY CHAN MD 08/17/18 Albuterol Sulfate* (Albuterol Sulfate* Neb) 0.083%-3 Ml Neb, 5 MG NEB Q4 PRN for SHORTNESS OF BREATH, #30 EA Prov:MICKY CHAN MD 08/17/18 Prednisone* (Prednisone*) 20 Mg Tab, 40 MG PO DAILY for 4 Days, TAB Prov:MICKY CHAN MD 08/17/18 Acetaminophen* (Tylenol*) 325 Mg Tablet, 2 TAB PO Q8 PRN for PAIN AND OR ELEVATED TEMP, #20 TAB Prov:ANT MANRIQUEZ PA-C 06/11/18 Ibuprofen* (Motrin*) 800 Mg Tab, 800 MG PO Q6, #30 TAB Prov:ANT MANRIQUEZ PA-C 06/11/18 Methylprednisolone* (Medrol* DOSE PACK) 4 Mg/Dose-Pack Tab.ds.pk, 4 MG PO . DIRECTED, #1 PACKET Prov:ANT MANRIQUEZ PA-C 06/11/18 Oseltamivir Phosphate* (Tamiflu*) 75 Mg Capsule, 75 MG PO BID for 5 Days, CAP Prov:ANT MANRIQUEZ PA-C 06/11/18 Naproxen* (Naprosyn*) 500 Mg Tablet, 500 MG PO BID PRN for PAIN AND/OR INFLAMMATION, #30 TAB Prov:MEKHI LOVE PA-C 04/19/18 Ciprofloxacin Hcl* (Ciprofloxacin Hcl*) 500 Mg Tablet, 500 MG PO DAILY for 5 Days, #5 TAB Prov:MEKHI LOVE PA-C 04/03/18 Bismuth Subsalicylate* (Bismuth Subsalicylate*) 262 Mg/15 Ml Oral.susp, 15 ML PO Q6 PRN for diarr, #1 BOTTLE Prov:MEKHI LOVE PA-C 04/03/18 Ondansetron (Ondansetron Odt) 4 Mg Tab.rapdis, 4 MG PO Q6H PRN for NAUSEA AND/OR VOMITING, #10 TAB Prov:MEKHI LOVE PA-C 04/03/18 Ondansetron (Ondansetron Odt) 8 Mg Tab.rapdis, 8 MG PO Q8 PRN for NAUSEA AND/OR VOMITING, #30 TAB Prov:ZARA GUPTA PA-C 04/01/18 Acetaminophen* (Acetaminophen*) 650 Mg Tablet, 650 MG PO Q6H PRN for PAIN AND OR ELEVATED TEMP, #30 TAB Prov:ZARA GUPTA PA-C 04/01/18 Diphenhydramine Hcl* (Benadryl*) 25 Mg Cap, 25-50 MG PO Q6 PRN for ITCHING/RASH, #30 TAB Prov:ZARA GUPTA PA-C 02/01/18 Sulfamethoxazole/Trimethoprim* (Bactrim Ds* Tablet) 1 Each Tablet, 1 TAB PO BID, #14 TAB Prov:ZARA GUPTA PA-C 02/01/18 Cephalexin* (Keflex*) 500 Mg Capsule, 500 MG PO QID for 7 Days, CAP Prov:ZARA GUPTA PA-C 02/01/18 Cephalexin* (Keflex*) 500 Mg Capsule, 500 MG PO QID for 7 Days, CAP Prov:MINA BLACK PA-C 02/10/17 Sulfamethoxazole/Trimethoprim* (Bactrim Ds* Tablet) 1 Each Tablet, 1 TAB PO BID for 10 Days, TAB Prov:MINA BLACK PA-C 02/10/17 Prednisone* (Prednisone*) 20 Mg Tab, 40 MG PO DAILY for 14 Days, #28 TAB Prov:PATO MEAD 01/14/17 Oxycodone HCl/Acetaminophen (Percocet 10-325 mg Tablet) 1 Each Tablet, 1 EACH PO Q8 PRN for PAIN for 7 Days, #21 TAB Prov:PATO MEAD 01/11/17 Reported Medications Pantoprazole* (Pantoprazole*) 40 Mg Tablet.dr, 40 MG PO AC BREAKFAST, TAB 01/07/17 Prednisone* (Prednisone*) 10 Mg Tab, 10 MG PO BID, TAB 01/07/17 Azathioprine* (Imuran*) 50 Mg Tab, 50 MG PO BID, TAB 01/07/17 Hydroxychloroquine Sulfate* (Hydroxychloroquine Sulfate*) 200 Mg Tablet, 200 MG PO BID, TAB 01/07/17 Amlodipine Besylate* (Norvasc*) 5 Mg Tablet, 2.5 MG PO BID, TAB 01/07/17 Allergies Allergies: Coded Allergies: vancomycin (Verified Allergy, Unknown, 08/17/18) PMhx/Soc History of Surgery: Yes (splenectomy, left index finger amputation) Anesthesia Reaction: No Hx Neurological Disorder: No Hx Respiratory Disorders: Yes (ASTHMA) Hx Cardiac Disorders: No Hx Psychiatric Problems: No Hx Miscellaneous Medical Probl: Yes (anemia) Hx Alcohol Use: No Hx Substance Use: No Hx Tobacco Use: No FmHx Family History: No diabetes, No coronary disease, No other Physical Exam Vitals Vital Signs Date Temp Pulse Resp B/P (MAP) Pulse Ox O2 O2 Flow FiO2 Time Delivery Rate 08/17/18 98 18 95 21 16:23 08/17/18 93 18 96 21 15:10 08/17/18 99.4 89 18 185/97 96 14:28 (126) Physical Exam Const: No acute distress Head: Atraumatic Eyes: Normal Conjunctiva ENT: Normal External Ears, Nose and Mouth. TMs and oropharynx normal. Neck: Full range of motion. No meningismus. Resp: Clear to auscultation bilaterally. Wheezing and rhonchi without rales or retractions. Cardio: Regular rate and rhythm, no murmurs Abd: Soft, non tender, non distended. Normal bowel sounds Skin: No petechiae or rashes Back: No midline or flank tenderness Ext: No cyanosis, or edema Neur: Awake and alert Psych: Normal Mood and Affect Results 24 hrs Current Medications Medications Dose Sig/Mansi Start Time Status Last (Trade) Ordered Route PRN Stop Time Admin Dose Reason Admin Prednisone 40 mg ONCE ONCE 08/17/18 DC 08/17/18 (Prednisone) PO 15:00 15:29 08/17/18 15:02 Albuterol 5 mg ONCE STAT 08/17/18 DC 08/17/18 (Proventil HHN 14:56 15:08 0.083% (Neb)) 08/17/18 15:02 Albuterol 5 mg ONCE STAT 08/17/18 DC 08/17/18 (Proventil HHN 15:46 16:21 0.083% (Neb)) 08/17/18 15:47 Ipratropium 0.5 mg ONCE ONCE 08/17/18 DC 08/17/18 [place] [facility] 16:00 16:21 (Atrovent 08/17/18 16:01 0.02% (Neb)) Procedures/MDM Patient given 2 doses of albuterol 1 dose of Atrovent. Patient was given prednisone 40 mg by mouth. Patient had improved wheezing without rales or retractions on serial exam. Chest X-ray 1V Interpreted by me: Soft Tissue: No acute abnormalities Bones: No acute abnormalities Mediastinum/Cardiac Silhouette/Lungs: No acute abnormalities. Impression- normal 1 view chest x-ray Patient presents with productive cough and wheezing for last week. We will treat empirically with Zithromax, stress dose of prednisone, Ventolin, primary care follow-up and return precautions. She has no signs of respiratory distress, hypoxemia, signs of pneumonia. The patient was stable with no new complaints during the ER course. Clinically, there is no current evidence to suggest meningitis, sepsis, acute abdomen, pneumonia, stroke, acute coronary syndrome, pulmonary embolism, aortic dissection or any other emergent condition appearing to require further evaluation or hospitalization. Patient counseled regarding my diagnostic impression and care plan. Prior to discharge all questions answered. Pt agrees with treatment plan and understands strict return precautions. Pt is instructed to follow up with primary care provider within 24- 48 hours. Precautionary instructions provided including instructions to return to the ER if not improving or for any worsening or changing symptoms or concerns. The patient's blood pressure was elevated (>120/80) but appears stable without evidence of hypertension emergency or urgency. The patient was counseled about the risks of hypertension and urged to pursue outpatient monitoring and therapy within a week with their primary care physician. I discussed the findings with the patient. I advised the patient to follow-up with the primary physician in about 1-2 days, sooner if needed and return if any concern. Departure Diagnosis: Primary Impression: Wheeze Additional Impression: Cough Condition: Stable Patient Instructions: Bronchitis With Wheezing (Adult) Additional Instructions: X-ray read as normal. Recheck for new or worsening symptoms with primary care doctor. MICKY CHAN MD Aug 17, 2018 16:31
== END 2018-08-17 16:43 | disposition home or self-care (01) ==
LOC: FTE 14:22
DX: J45.901 Unspecified asthma with (acute) exacerbation (principal)
CPT/HCPCS: 71045; 94640; 94664; J7512; Z7502; Z7610

== ENCOUNTER 2018-09-22 02:46 | Inpatient (IN) | payer OTHER ==
[~2018-09-22] VITALS: Ht 162.6 cm; Wt 91.5 kg
[~2018-09-22 02:46] MED LIST changes: +ALBU2.5V3 NEB; +AZIT250T PO
[2018-09-22] MEDS ORDERED: ONDANSETRON 4 MG INJ IV STA ×2 (03:33→07:48)
[2018-09-22] MEDS ORDERED: SOD CHLORIDE 0.9% 1,000 ML IV STA (03:33)
[2018-09-22] MEDS ORDERED: KETOROLAC 15 MG INJ IV ONE (03:34)
[2018-09-22] MEDS ORDERED: morphine 4 MG/ML VIAL IV STA ×2 (03:59→08:51)
[2018-09-22] MEDS ORDERED: FAMOTIDINE 20 MG INJ IV STA (03:59)
[2018-09-22] MEDS ORDERED: ACETAMINOPHEN 325 MG TAB PO ONE (04:00)
[2018-09-22] MEDS ORDERED: FER325 PO (05:11)
[2018-09-22] MEDS ORDERED: ASPI-535 PO (05:11)
[2018-09-22] MEDS ORDERED: SOD CHLORIDE 0.9% 100 ML ONE (05:23)
[2018-09-22] MEDS ORDERED: IOHEXOL 300MG/ML 150 ML BTL ONE (05:23)
[2018-09-22] MEDS ORDERED: ERGO500013 PO (05:24)
--- NOTE | 2018-09-22 06:54 | ERD ---
ER Documentation Chief Complaint Chief Complaint abd pain/vomiting/diarrhea x 1 day, hx of raynaud's HPI This is a 33-year-old female with a past medical history of lupus, rheumatoid arthritis, chronic anemia, status post splenectomy who is now presenting with subjective fever, abdominal pain, nausea with a few episodes of nonbilious nonbloody vomiting and diarrhea that began at around midnight today. When the patient went to sleep, she had felt well. However, she woke up at around midnight with onset of symptoms that have persisted since then. The patient has not had symptoms like this before. She does not endorse any exacerbating or alleviating factors. She does not endorse any dysuria or hematuria or urgency or frequency. The patient has had no headache or vision changes. The patient does not endorse neck or back pain. The patient denies lightheadedness or dizziness. The patient has had no chest pain or trouble breathing. The patient has had no focal deficits. The patient has had no weakness or numbness or tingling to the face or extremities. ROS All systems reviewed and are negative except as per history of present illness. Medications Home Meds Active Scripts Albuterol Sulfate* (Albuterol Sulfate* Neb) 0.083%-3 Ml Neb, 5 MG NEB Q4 PRN for SHORTNESS OF BREATH, #30 EA Prov:MICKY CHAN MD 08/17/18 Reported Medications Ergocalciferol (Vitamin D2) (VITAMIN D2) 50,000 Unit Capsule, 84664 UNIT PO QMONDAY 09/22/18 Ferrous Sulfate* (Ferrous Sulfate*) 325 Mg Tabec, 325 MG PO BID TK 1 T PO BID 09/22/18 Aspirin Ec (Aspir 81) 81 Mg Tablet.dr, 81 MG PO DAILY, #30 TAB 09/22/18 Pantoprazole* (Pantoprazole*) 40 Mg Tablet.dr, 40 MG PO AC BREAKFAST, TAB 01/07/17 Azathioprine* (Imuran*) 50 Mg Tab, 50 MG PO BID, TAB 01/07/17 Hydroxychloroquine Sulfate* (Hydroxychloroquine Sulfate*) 200 Mg Tablet, 200 MG PO BID, TAB 01/07/17 Amlodipine Besylate* (Norvasc*) 5 Mg Tablet, 2.5 MG PO BID, TAB 01/07/17 Discontinued Reported Medications Prednisone* (Prednisone*) 10 Mg Tab, 10 MG PO BID, TAB 01/07/17 Discontinued Scripts Azithromycin* (Zithromax*) 250 Mg Tablet, 250 MG PO .KELSIE DIRECTED, #6 TAB TAKE 500 MG (2 TABS) THE FIRST DAY THEN 250 MG (1 TAB) DAYS 2-5 Prov:MICKY CHAN MD 08/17/18 Prednisone* (Prednisone*) 20 Mg Tab, 40 MG PO DAILY for 4 Days, TAB Prov:MICKY CHAN MD 08/17/18 Acetaminophen* (Tylenol*) 325 Mg Tablet, 2 TAB PO Q8 PRN for PAIN AND OR ELEVATED TEMP, #20 TAB Prov:ANT MANRIQUEZ PA-C 06/11/18 Ibuprofen* (Motrin*) 800 Mg Tab, 800 MG PO Q6, #30 TAB Prov:ANT MANRIQUEZ PA-C 06/11/18 Methylprednisolone* (Medrol* DOSE PACK) 4 Mg/Dose-Pack Tab.ds.pk, 4 MG PO . DIRECTED, #1 PACKET Prov:ANT MANRIQUEZ PA-C 06/11/18 Oseltamivir Phosphate* (Tamiflu*) 75 Mg Capsule, 75 MG PO BID for 5 Days, CAP Prov:ANT MANRIQUEZ PA-C 06/11/18 Naproxen* (Naprosyn*) 500 Mg Tablet, 500 MG PO BID PRN for PAIN AND/OR INFLAMMATION, #30 TAB Prov:MEKHI LOVE PA-C 04/19/18 Ciprofloxacin Hcl* (Ciprofloxacin Hcl*) 500 Mg Tablet, 500 MG PO DAILY for 5 Day s, #5 TAB Prov:MEKHI LOVE PA-C 04/03/18 Bismuth Subsalicylate* (Bismuth Subsalicylate*) 262 Mg/15 Ml Oral.susp, 15 ML PO Q6 PRN for diarr, #1 BOTTLE Prov:MEKHI LOVE PA-C 04/03/18 Ondansetron (Ondansetron Odt) 4 Mg Tab.rapdis, 4 MG PO Q6H PRN for NAUSEA AND/OR VOMITING, #10 TAB Prov:MEKHI LOVE PA-C 04/03/18 Ondansetron (Ondansetron Odt) 8 Mg Tab.rapdis, 8 MG PO Q8 PRN for NAUSEA AND/OR VOMITING, #30 TAB Prov:ZARA GUPTAC 04/01/18 Acetaminophen* (Acetaminophen*) 650 Mg Tablet, 650 MG PO Q6H PRN for PAIN AND OR ELEVATED TEMP, #30 TAB Prov:ZARA GUPTAC 18 Diphenhydramine Hcl* (Benadryl*) 25 Mg Cap, 25-50 MG PO Q6 PRN for ITCHING/RASH, #30 TAB Prov:ZARA GUPTA-C 02/01/18 Sulfamethoxazole/Trimethoprim* (Bactrim Ds* Tablet) 1 Each Tablet, 1 TAB PO BID, #14 TAB Prov:ZARA GUPTAC 02/01/18 Cephalexin* (Keflex*) 500 Mg Capsule, 500 MG PO QID for 7 Days, CAP Prov:ZARA GUPTAC 02/01/18 Cephalexin* (Keflex*) 500 Mg Capsule, 500 MG PO QID for 7 Days, CAP Prov:MINA BLACK PA-C 02/10/17 Sulfamethoxazole/Trimethoprim* (Bactrim Ds* Tablet) 1 Each Tablet, 1 TAB PO BID for 10 Days, TAB Prov:MINA BLACKC 02/10/17 Prednisone* (Prednisone*) 20 Mg Tab, 40 MG PO DAILY for 14 Days, #28 TAB Prov:PATO MEAD 01/14/17 Oxycodone HCl/Acetaminophen (Percocet 10-325 mg Tablet) 1 Each Tablet, 1 EACH PO Q8 PRN for PAIN for 7 Days, #21 TAB Prov:PATO MEAD 01/11/17 Allergies Allergies: Coded Allergies: vancomycin (Verified Allergy, Unknown, 09/22/18) PMhx/Soc History of Surgery: Yes (splenectomy, left index finger amputation) Anesthesia Reaction: No Hx Neurological Disorder: No Hx Respiratory Disorders: Yes (ASTHMA) Hx Cardiac Disorders: No Hx Psychiatric Problems: No Hx Miscellaneous Medical Probl: Yes (ANEMIA, RHEUMATOID ARTHRITIS, lupus ) Hx Alcohol Use: No Hx Substance Use: No Hx Tobacco Use: No Smoking Status: Never smoker Physical Exam Vitals Vital Signs Date Temp Pulse Resp B/P (MAP) Pulse Ox O2 O2 Flow FiO2 Time Delivery Rate 09/22/18 98.4 94 16 131/69 97 Room Air 04:48 (89) 09/22/18 100.2 90 18 128/79 98 02:52 (95) Physical Exam Const: No apparent distress, well-developed, well-nourished Head: Normocephalic, Atraumatic Eyes: Normal Conjunctiva. Extraocular movements intact. Pupils equal, round and reactive to light ENT: Normal External Ears, Nose and Mouth. Neck: Full range of motion. No meningismus. Resp: Clear to auscultation bilaterally, No wheezes, rales or rhonchi Cardio: Regular rate and rhythm. No murmurs, rubs or gallops Abd: Soft, non distended. Epigastric tenderness. Normal bowel sounds Skin: No petechiae or rashes Back: No midline tenderness. No CVA tenderness Ext: No cyanosis, or edema Neur: Awake and alert, oriented 4. Cranial nerves intact. No facial droop. Normal strength, sensation and coordination. Psych: Normal Mood and Affect Result Diagram: 09/22/18 0426 09/22/18 0426 Results 24 hrs Laboratory Tests Test 09/22/18 04:26 White Blood Count 19.3 10^3/ul Red Blood Count 4.13 10^6/ul Hemoglobin 12.0 g/dl Hematocrit 39.3 % Mean Corpuscular Volume 95.2 fl Mean Corpuscular Hemoglobin 29.1 pg Mean Corpuscular Hemoglobin Concent 30.5 g/dl Red Cell Distribution Width % Platelet Count 391 10^3/UL Mean Platelet Volume 10.3 fl Immature Granulocytes % 0.700 % Neutrophils % % Lymphocytes % % Monocytes % % Eosinophils % % Basophils % % Nucleated Red Blood Cells % 0.2 /100WBC Immature Granulocytes # 0.140 10^3/ul Neutrophils # 10^3/ul Lymphocytes # 10^3/ul Monocytes # 10^3/ul Eosinophils # 10^3/ul Basophils # 10^3/ul Nucleated Red Blood Cells # 10^3/ul Sodium Level 146 mmol/L Potassium Level 3.2 mmol/L Chloride Level 109 mmol/L Carbon Dioxide Level 24 mmol/L Anion Gap 13 Blood Urea Nitrogen 13 mg/dl Creatinine 0.65 mg/dl Est Glomerular Filtrat Rate mL/min > 60 mL/min Glucose Level 121 mg/dl Calcium Level 8.7 mg/dl Total Bilirubin 0.6 mg/dl Direct Bilirubin 0.00 mg/dl Indirect Bilirubin 0.6 mg/dl Aspartate Amino Transf (AST/SGOT) 37 IU/L Alanine Aminotransferase (ALT/SGPT) 33 IU/L Alkaline Phosphatase 127 IU/L Total Protein 7.5 g/dl Albumin 3.8 g/dl Globulin 3.70 g/dl Albumin/Globulin Ratio 1.02 Lipase 57 U/L Serum HCG, Qualitative NEGATIVE Current Medications Medications Dose Sig/Mansi Start Time Status Last (Trade) Ordered Route PRN Stop Time Admin Dose Reason Admin Sodium 1,000 ml @ Q1H STAT 09/22/18 DC 09/22/18 Chloride 1,000 mls/hr IV 03:33 04:03 09/22/18 04:32 Ondansetron 4 mg ONCE STAT 09/22/18 DC 09/22/18 HCl (Zofran IV 03:33 04:01 Inj) 09/22/18 03:34 650 mg ONCE ONCE 09/22/18 DC 09/22/18 Acetaminophen PO 04:00 04:03 (Tylenol 09/22/18 04:01 Tab) Ketorolac 15 mg ONCE ONCE 09/22/18 DC 09/22/18 Tromethamine IV 03:34 04:01 (Toradol) 09/22/18 03:48 Morphine 4 mg ONCE STAT 09/22/18 DC 09/22/18 Sulfate IV 03:59 04:17 (morphine) 09/22/18 04:02 Famotidine 20 mg ONCE STAT 09/22/18 DC 09/22/18 (Pepcid Iv) IV 03:59 04:16 09/22/18 04:02 Sodium 100 ml @ ud STK-MED 09/22/18 DC Chloride ONCE .ROUTE 05:23 09/22/18 05:24 Iohexol 150 ml STK-MED 09/22/18 DC (Omnipaque ONCE .ROUTE 05:23 300mg/ ml) 09/22/18 05:24 Procedures/MDM MDM The patient's presentation warrants further investigation. Previous medical records, if available, were reviewed. LABS The patient's laboratory testing was obtained and reviewed. No emergent treatment was required unless described below. CBC: Leukocytosis, concerning for an infectious etiology. No E/o anemia or thrombocytopenia Chemistry: No E/o severe acidosis or alkalosis or renal failure or liver disease or diabetic ketoacidosis. Mild hypokalemia, nonemergent. Lipase: No E/o pancreatitis IMAGING Imaging and Radiology interpretation reviewed. CT Abd/Pelvis PENDING TREATMENT/DISPOSITION The patient presents with upper abdominal pain, nausea, vomiting and diarrhea. Gastroenteritis is certainly a possibility given her acute onset of symptoms. The patient's leukocytosis could be reactive, though I do want to evaluate for any other possible emergent etiologies. I opted to have a CT scan completed to assess further. The patient CT is currently pending. The patient's pain is primarily epigastric in nature. GERD versus PUD versus gastritis are certainly possibilities. The patient does not have any evidence of peritonitis. The patient does not have clinical symptoms concerning for mesenteric ischemia or ischemic colitis. The patient does not have right upper quadrant tenderness, and I have low suspicion for gallstones, cholecystitis or biliary colic. The patient did have left upper quadrant tenderness, but her lipase is normal. I have low suspicion for pancreatitis. The patient does not have any right lower quadrant tenderness, or periumbilical tenderness. I have low suspicion for appendicitis. The patient does not have suprapubic tenderness. I have decreased suspicion for cystitis. The patient does not have any left lower quadrant tenderness, and I have low suspicion for diverticulosis or diverticulitis. The patient does not have any flank tenderness. The patient does not have gross hematuria. I have decreased suspicion for nephrolithiasis or renal colic. The patient does not have any palpable pulsatile mass or severe abdominal pain radiating to the back. I have low suspicion for aortic aneurysm, dissection or rupture. The patient's temperature is less than 38 C. Despite the leukocytosis, the patient's vitals are stable. The patient does not meet criteria for systemic inflammatory response syndrome. I do not believe the patient is septic, and I do not feel the patient requires a full septic workup. The patient may require antibiotics depending on what the CT imaging demonstrates. That said, gastroenteritis versus a viral etiology are also possibilities, and I do not feel the patient requires antibiotics immediately. The decision to initiate antibiotics will be deferred until the CT scan is completed. The patient was treated with Tylenol, Toradol, IV fluids, Pepcid, Zofran and a GI cocktail with improvement of her symptoms. The patient's disposition is pending her CT imaging. The patient will be signed out to the oncoming physician at 6 AM pending this imaging modality. If discharged, I feel that the patient would benefit from prescriptions for Zof ran and Pepcid. The patient's blood pressure was elevated at greater than 120/80 while in the emergency department. The patient was otherwise stable with no evidence of hypertensive urgency or emergency. The patient does not require admission for blood pressure control. I have discussed with the patient the risks of hypertension. I have instructed the patient to return to the ER for any new or worsening symptoms including chest pain, shortness of breath, headache, blurred vision, confusion, nausea, vomiting or LOC. I have advised the patient to follow up with the primary care physician for outpatient monitoring and treatment for hypertension in 1-3 days. Disclaimer: Inadvertent spelling and grammatical errors are likely due to EHR/dictation software use and do not reflect on the overall quality of patient care. Note that the electronic time recorded on this note does not necessarily reflect the actual time of the patient encounter. Departure Diagnosis: Primary Impression: Abdominal pain Abdominal location: upper abdomen, unspecified Qualified Codes: R10.10 - Upper abdominal pain, unspecified Additional Impressions: Nausea vomiting and diarrhea Leukocytosis Leukocytosis type: unspecified Qualified Codes: D72.829 - Elevated white blood cell count, unspecified Hypokalemia Condition: JENNY Rao MD Sep 22, 2018 06:54
[2018-09-22] MEDS ORDERED: FAMO-96 PO (06:56)
[2018-09-22] MEDS ORDERED: ONDA8TAB9 PO (06:56)
[2018-09-22] MEDS ORDERED: metroNIDAZOLE 500 MG/NS (PMX) 100 ML IVPB ONE (08:00)
[2018-09-22] MEDS ORDERED: CIPROFLOXACIN 400MG/D5W 200 ML IVPB ONE (08:00)
[2018-09-22] MEDS ORDERED: ONDANSETRON 4 MG INJ IV PRN (09:00)
[2018-09-22] MEDS ORDERED: ACETAMINOPHEN 325 MG TAB PO PRN ×2 (09:00→09:30)
[2018-09-22] MEDS ORDERED: SOD CHLORIDE 0.9% 1,000 ML IV SCH (09:07)
[2018-09-22] MEDS ORDERED: NACL 0.9% 3 ML SYG IV SCH (09:30)
[2018-09-22] MEDS ORDERED: metroNIDAZOLE 500 MG/NS (PMX) 100 ML IVPB SCH (09:30)
--- NOTE | 2018-09-22 09:51 | HP ---
Date/Time of Note Date/Time of Note DATE: 09/22/18 TIME: 09:51 Assessment/Plan VTE Prophylaxis Pharmacological prophylaxis: other Assessment/Plan Hospital Course Patient is a female the past medical history significant for lupus, rheumatoid arthritis, raynauds on chronic prednisone of 10 mg daily who presents to [facility] for sudden onset abdominal pain. Patient states that everything was fine when she went to sleep, however around midnight she suddenly woke up with some mild epigastric discomfort that quickly turned into a spreading generalized abdominal pain that was severe. Patient's also had vomiting and diarrhea as well as nausea. Currently patient still says that the abdomen does hurt still a bit and is currently still nauseated and vomiting. Patient does not have any changes as far as her diet in the past 24 hours and otherwise felt well before her abdominal pain. Patient follows up with a enterprise analyst on a normal basis as well. Patient denies headache, dizziness, chest pain, shortness of breath, leg pain, urinary or bowel dysfunction. Patient has a past surgical history significant for right finger amputation secondary to raynauds as well as splenectomy. Objective Physical exam General: Patient is laying in bed and answers questions appropriately Mentation: Patient is alert and oriented 4, Head: Normocephalic atraumatic Eyes: EOMI, pupils reactive to light Neck: Supple, nontender, midline Respiratory: Clear to auscultation bilaterally Cardiovascular: regular rate, no obvious murmurs Gastrointestinal: Mild generalized tenderness to palpation, bowel sounds heard. Neurological: Moves all extremities spontaneously Skin: No new skin lesions Assessment and plan Colitis -Given immunocompromised status secondary to prednisone use, will need to rule out bacterial infection, will start IV zosyn given her immunocompromised status. -CT findings have multiple issues regarding the GI system, will consult GI -Clears as tolerated however had an extensive conversation with patient regarding not to try unless her nausea and vomiting has subsided significantly. Sepsis -Secondary to above colitis -IV fluid -Broad-spectrum antibiotic -Blood cultures -Lactic acid pending Mesenteric free fluid and slightly nodular mesenteric fat stranding -Found on CT, cannot rule out neoplastic process -Oncology has been consulted, GI also on board, pending recommendations Nodular liver -No history of cirrhosis however with lupus may have been affecting her liver this whole time without knowledge, GI on board Gallbladder wall thickening -Unchanged since previous CT done in 2017, unlikely cholecystitis however will defer to GI recommendations Free fluid in pelvis -Mild, likely secondary to everything that is going on in her GI system, monitor closely, IV antibiotic, GI recommendations appreciated Electrolyte derangement -Likely secondary to nausea and vomiting, replace as needed Nausea vomiting -Secondary to colitis above, treat as needed, GI recommendations appreciated Rheumatoid arthritis and lupus -Patient on chronic prednisone, as did not make her go into adrenal insufficiency due to chronic prednisone use, will continue on Solu-Medrol for now, patient follows up with enterprise analyst, Dr. Ramirez on a normal basis. Will need to follow-up afterwards for continued management History of splenic infarct status post splenectomy -Monitor Raynauds -With right finger amputation secondary to complications, stable, chronic, monitor Disposition -Treatment for colitis with IV antibiotic and GI consultation, awaiting GI and oncology recommendations. Result Diagram: 09/22/1842509/22/186 Results 24hrs Laboratory Tests Test 09/22/18 04:26 White Blood Count 19.3 #H Red Blood Count 4.13 L Hemoglobin 12.0 # Hematocrit 39.3 # Mean Corpuscular Volume 95.2 Mean Corpuscular Hemoglobin 29.1 Mean Corpuscular Hemoglobin Concent 30.5 L Red Cell Distribution Width Platelet Count 391 # Mean Platelet Volume 10.3 Immature Granulocytes % 0.700 H Neutrophils % 86.8 H Lymphocytes % 4.1 L Monocytes % 6.5 Eosinophils % 1.5 Basophils % 0.4 Nucleated Red Blood Cells % 0.2 H Immature Granulocytes # 0.140 H Neutrophils # Lymphocytes # Monocytes # Eosinophils # Basophils # Nucleated Red Blood Cells # Sodium Level 146 H Potassium Level 3.2 L Chloride Level 109 Carbon Dioxide Level 24 Anion Gap 13 Blood Urea Nitrogen 13 Creatinine 0.65 Est Glomerular Filtrat Rate mL/min > 60 Glucose Level 121 Calcium Level 8.7 Total Bilirubin 0.6 Direct Bilirubin 0.00 Indirect Bilirubin 0.6 Aspartate Amino Transf (AST/SGOT) 37 Alanine Aminotransferase (ALT/SGPT) 33 Alkaline Phosphatase 127 H Total Protein 7.5 Albumin 3.8 Globulin 3.70 H Albumin/Globulin Ratio 1.02 Lipase 57 Serum HCG, Qualitative NEGATIVE HPI/ROS Admit Date/Time Admit Date/Time PMH/Family/Social Past Medical History Medications Current Medications Ondansetron HCl (Zofran Inj) 4 mg BRIDGE ORDER PRN IV NAUSEA/VOMITING; Start 09/22/18 at 09:00; Stop 09/23/18 at 08:59; Status UNV Acetaminophen (Tylenol Tab) 650 mg ER BRIDGE PRN PO .MILD PAIN 1-3 OR TEMP; Start 09/22/18 at 09:00; Stop 09/23/18 at 08:59; Status UNV Ciprofloxacin/ Dextrose 200 ml @ 200 mls/hr Q12 IVPB ; Start 09/22/18 at 21:00; Status UNV Metronidazole 100 ml @ 100 mls/hr Q8 IVPB ; Start 09/22/18 at 09:30; Status UNV IV Flush (NS 3 ml) 3 ml PER PROTOCOL IV ; Start 09/22/18 at 09:30; Status UNV Ondansetron HCl (Zofran Inj) 4 mg Q6H PRN IV NAUSEA/VOMITING; Start 09/22/18 at 09:30; Status UNV Acetaminophen (Tylenol Tab) 650 mg Q6H PRN PO .PAIN 1-3 OR TEMP; Start 09/22/18 at 09:30; Status UNV Acetaminophen/ Hydrocodone Bitart ([place] (5/325)) 1 tab Q6H PRN PO .PAIN 4-6; Start 09/22/18 at 09:30; Status UNV Morphine Sulfate (morphine) 2 mg Q4H PRN IV .PAIN 7-10; Start 09/22/18 at 09:30; Status UNV Pantoprazole (Protonix Iv) 40 mg DAILY@06 IV ; Start 09/23/18 at 06:00; Status UNV Potassium Chloride/Sodium Chloride 1,000 ml @ 100 mls/hr Q10H IV ; Start 09/22/18 at 09:30; Status UNV Coded Allergies: vancomycin (Verified Allergy, Unknown, 09/22/18) Past Surgical History Past Surgical Hx: no surgical history Family History Significant Family History: no pertinent family hx Social History Smoking Status: Never smoker Exam/Review of Systems Vital Signs Vitals Vital Signs Date Temp Pulse Resp B/P (MAP) Pulse Ox O2 O2 Flow FiO2 Time Delivery Rate 09/22/18 96 16 122/73 100 Room Air 07:45 (89) 09/22/18 98.4 04:48 PATO MEAD Sep 22, 2018 09:51
[2018-09-22] MEDS: METHYLPREDNISOLONE 40 MG INJ IV SCH (11:48)
[2018-09-22 13:30] VITALS: BP 127/70; PULSE 104; RESP 18
[2018-09-22] MEDS: NS + KCL 20 MEQ 1,000 ML IV SCH ×2 (13:36→19:30)
[2018-09-22] MEDS: PIPER-TAZO 3.375 GM IV (PMX) 100 ML IVPB SCH ×3 (13:36→23:23)
--- NOTE | 2018-09-22 13:48 | CONS ---
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 We will additionally check hepatitis panel to rule out viral hepatitis as etiology of Cirrhosis Follow-up on stool studies currently pending Ordered o&p x3 Follow-up on blood cultures currently pending Monitor labs Increase PPI to BID Patient seen in collaboration with Dr. Garner CC: JAY GARNER ; Consultation Date/Type/Reason Admit Date/Time Date of Consultation: Sep 22, 2018 Type of Consult GI Reason for Consultation General is abdominal pain Colitis on imaging Date/Time of Note DATE: 09/22/18 TIME: 13:40 Hx of Present Illness This is a 33-year-old female past medical history of lupus, rheumatoid arthritis, ray nods who is currently on immunosuppressants including Imuran, prednisone, hydrochloroquine who presented to the hospital after waking up with severe epigastric pain radiating to her back associated with nausea vomiting and diarrhea. Patient does note hematemesis however she states her gums frequently bleed and is unsure of blood from her gums versus her stomach. Diarrhea was described as watery with no evidence of blood noted. Patient states she previously had an upper endoscopy and a colonoscopy over a year ago, but is unclear of those results. Workup here reveals leukocytosis with a WBC of 19.3 again noted patient is on chronic prednisone use, LFTs with the exception of alkaline phosphatase are within normal limits and alkaline phosphatase is mildly elevated at 123. A CT abdomen/pelvis with contrast shows postsurgical changes of splenectomy imaging concerning for cirrhosis gallbladder wall thickening versus pericholecystic fluid but not significant change from previous exam, mild diffuse mesenteric free fluid and slightly nodular mesenteric fat stranding fluid along the pancreas however noted lipase is within normal limits. Mucosal thickening of the stomach and mucosal thickening of the ascending and transverse colon consistent with colitis. There is dense material in the cecum not secondl y change from previous examination and small amount of free fluid in the pelvis comparison CT was from 01/07/17. At time evaluation patient has a temperature of 102.8 she is noted to have increased respiration rate as well. She complains of generalized abdominal discomfort with palpation. Stool studies have been ordered and currently pending blood cultures have been ordered and currently pending will allow patient to medically optimize but will likely need upper endoscopy and colonoscopy near future. Reviewed overall plan with patient verbalized understanding is agreeable to procedures near future. Review of Systems: A 12 system, review was conducted and is negative except as noted in the HPI or here. Past Medical History Home Meds Active Scripts Ondansetron Hcl* (Zofran*) 8 Mg Tablet, 8 MG PO Q6H PRN for NAUSEA AND OR VOMITING, #20 TAB Prov:JENNY RAWLS MD 09/22/18 Famotidine* (Pepcid*) 20 Mg Tablet, 20 MG PO BID for 14 Days, TAB Prov:JENNY RAWLS MD 09/22/18 Albuterol Sulfate* (Albuterol Sulfate* Neb) 0.083%-3 Ml Neb, 5 MG NEB Q4 PRN for SHORTNESS OF BREATH, #30 EA Prov:MICKY CHAN MD 08/17/18 Reported Medications Ergocalciferol (Vitamin D2) (VITAMIN D2) 50,000 Unit Capsule, 15588 UNIT PO QMONDAY 09/22/18 Ferrous Sulfate* (Ferrous Sulfate*) 325 Mg Tabec, 325 MG PO BID TK 1 T PO BID 09/22/18 Aspirin Ec (Aspir 81) 81 Mg Tablet.dr, 81 MG PO DAILY, #30 TAB 09/22/18 Pantoprazole* (Pantoprazole*) 40 Mg Tablet.dr, 40 MG PO AC BREAKFAST, TAB 01/07/17 Azathioprine* (Imuran*) 50 Mg Tab, 50 MG PO BID, TAB 01/07/17 Hydroxychloroquine Sulfate* (Hydroxychloroquine Sulfate*) 200 Mg Tablet, 200 MG PO BID, TAB 01/07/17 Amlodipine Besylate* (Norvasc*) 5 Mg Tablet, 2.5 MG PO BID, TAB 01/07/17 Discontinued Reported Medications Prednisone* (Prednisone*) 10 Mg Tab, 10 MG PO BID, TAB 01/07/17 Discontinued Scripts Azithromycin* (Zithromax*) 250 Mg Tablet, 250 MG PO .KELSIE DIRECTED, #6 TAB TAKE 500 MG (2 TABS) THE FIRST DAY THEN 250 MG (1 TAB) DAYS 2-5 Prov:MICKY CHAN MD 08/17/18 Prednisone* (Prednisone*) 20 Mg Tab, 40 MG PO DAILY for 4 Days, TAB Prov:MICKY CHAN MD 08/17/18 Acetaminophen* (Tylenol*) 325 Mg Tablet, 2 TAB PO Q8 PRN for PAIN AND OR ELEVATED TEMP, #20 TAB Prov:ANT MANRIQUEZ PA-C 06/11/18 Ibuprofen* (Motrin*) 800 Mg Tab, 800 MG PO Q6, #30 TAB Prov:ANT MANRIQUEZ PA-C 06/11/18 Methylprednisolone* (Medrol* DOSE PACK) 4 Mg/Dose-Pack Tab.ds.pk, 4 MG PO . DIRECTED, #1 PACKET Prov:ANT MANRIQUEZ PA-C 06/11/18 Oseltamivir Phosphate* (Tamiflu*) 75 Mg Capsule, 75 MG PO BID for 5 Days, CAP Prov:ANT MANRIQUEZ PA-C 06/11/18 Naproxen* (Naprosyn*) 500 Mg Tablet, 500 MG PO BID PRN for PAIN AND/OR INFLAMMATION, #30 TAB Prov:MEKHI LOVE PA-C 04/19/18 Ciprofloxacin Hcl* (Ciprofloxacin Hcl*) 500 Mg Tablet, 500 MG PO DAILY for 5 Days, #5 TAB Prov:MEKHI LOVE PA-C 04/03/18 Bismuth Subsalicylate* (Bismuth Subsalicylate*) 262 Mg/15 Ml Oral.susp, 15 ML PO Q6 PRN for diarr, #1 BOTTLE Prov:MEKHI LOVE PA-C 04/03/18 Ondansetron (Ondansetron Odt) 4 Mg Tab.rapdis, 4 MG PO Q6H PRN for NAUSEA AND/OR VOMITING, #10 TAB Prov:MEKHI LOVE PA-C 04/03/18 Ondansetron (Ondansetron Odt) 8 Mg Tab.rapdis, 8 MG PO Q8 PRN for NAUSEA AND/OR VOMITING, #30 TAB Prov:ZARA GUPTAC 04/01/18 Acetaminophen* (Acetaminophen*) 650 Mg Tablet, 650 MG PO Q6H PRN for PAIN AND OR ELEVATED TEMP, #30 TAB Prov:ZARA GUPTAC 04/01/18 Diphenhydramine Hcl* (Benadryl*) 25 Mg Cap, 25-50 MG PO Q6 PRN for ITCHING/RASH, #30 TAB Prov:ZARA GUPTAC 02/01/18 Sulfamethoxazole/Trimethoprim* (Bactrim Ds* Tablet) 1 Each Tablet, 1 TAB PO BID, #14 TAB Prov:ZARA GUPTAC 02/01/18 Cephalexin* (Keflex*) 500 Mg Capsule, 500 MG PO QID for 7 Days, CAP Prov:ZARA GUPTAC 02/01/18 Cephalexin* (Keflex*) 500 Mg Capsule, 500 MG PO QID for 7 Days, CAP Prov:MINA BLACK PA-C 02/10/17 Sulfamethoxazole/Trimethoprim* (Bactrim Ds* Tablet) 1 Each Tablet, 1 TAB PO BID for 10 Days, TAB Prov:MINA LBACKC 02/10/17 Prednisone* (Prednisone*) 20 Mg Tab, 40 MG PO DAILY for 14 Days, #28 TAB Prov:PATO MEAD 01/14/17 Oxycodone HCl/Acetaminophen (Percocet 10-325 mg Tablet) 1 Each Tablet, 1 EACH PO Q8 PRN for PAIN for 7 Days, #21 TAB Prov:PATO MEAD 01/11/17 Medications Current Medications IV Flush (NS 3 ml) 3 ml PER PROTOCOL IV ; Start 09/22/18 at 09:30 Ondansetron HCl (Zofran Inj) 4 mg Q6H PRN IV NAUSEA/VOMITING; Start 09/22/18 at 09:30 Acetaminophen (Tylenol Tab) 650 mg Q6H PRN PO .PAIN 1-3 OR TEMP; Start 09/22/18 at 09:30 Acetaminophen/ Hydrocodone Bitart ([place] (5/325)) 1 tab Q6H PRN PO .PAIN 4-6; Start 09/22/18 at 09:30 Morphine Sulfate (morphine) 2 mg Q4H PRN IV .PAIN 7-10; Start 09/22/18 at 09:30 Pantoprazole (Protonix Iv) 40 mg DAILY@06 IV ; Start 09/23/18 at 06:00 Potassium Chloride/Sodium Chloride 1,000 ml @ 100 mls/hr Q10H IV ; Start 09/22/18 at 09:30 Methylprednisolone Sodium Succinate (Solu-Medrol) 10 mg DAILY IV Last administ ered on 09/22/18at 11:48; Admin Dose 10 MG; Start 09/22/18 at 10:00 Piperacillin Sod/ Tazobactam Sod 100 ml @ 200 mls/hr Q6 IVPB ; Start 09/22/18 at 12:00 Allergies: Coded Allergies: vancomycin (Verified Allergy, Unknown, 09/22/18) Past Surgical History Past Surgical Hx: no surgical history Social History Smoking Status: Never smoker Exam/Review of Systems Exam Vitals Vital Signs Date Temp Pulse Resp B/P (MAP) Pulse Ox O2 O2 Flow FiO2 Time Delivery Rate 09/22/18 104 18 148/87 100 Room Air 12:59 (107) 09/22/18 98.4 04:48 Results Result Diagram: 09/22/18 0426 09/22/18 0426 Results 24hrs Laboratory Tests Test 09/22/18 04:26 09/22/18 10:59 White Blood Count 19.3 #H Red Blood Count 4.13 L Hemoglobin 12.0 # Hematocrit 39.3 # Mean Corpuscular Volume 95.2 Mean Corpuscular Hemoglobin 29.1 Mean Corpuscular Hemoglobin Concent 30.5 L Red Cell Distribution Width Platelet Count 391 # Mean Platelet Volume 10.3 Immature Granulocytes % 0.700 H Neutrophils % 86.8 H Segmented Neutrophils % (Manual) 71 Band Neutrophils % (Manual) 14 H Lymphocytes % 4.1 L Lymphocytes % (Manual) 3 L Monocytes % 6.5 Monocytes % (Manual) 7 Eosinophils % 1.5 Eosinophils % (Manual) 5 Basophils % 0.4 Nucleated Red Blood Cells % 1 H Immature Granulocytes # 0.140 H Neutrophils # Neutrophils # (Manual) 14.2 H Band Neutrophils # 2.7 H Lymphocytes (Manual) 0.5 L Lymphocytes # Monocytes # Monocytes # (Manual) 1.3 H Eosinophils # Basophils # Nucleated Red Blood Cells # Platelet Estimate NORMAL Giant Platelets 6 H Polychromasia 3+ Hypochromasia 1+ Poikilocytosis 2+ Anisocytosis 1+ Macrocytosis 1+ Target Cells 1+ Ovalocytes 1+ Acanthocytes 1+ Sodium Level 146 H Potassium Level 3.2 L Chloride Level 109 Carbon Dioxide Level 24 Anion Gap 13 Blood Urea Nitrogen 13 Creatinine 0.65 Est Glomerular Filtrat Rate mL/min > 60 Glucose Level 121 Calcium Level 8.7 Total Bilirubin 0.6 Direct Bilirubin 0.00 Indirect Bilirubin 0.6 Aspartate Amino Transf (AST/SGOT) 37 Alanine Aminotransferase (ALT/SGPT) 33 Alkaline Phosphatase 127 H Total Protein 7.5 Albumin 3.8 Globulin 3.70 H Albumin/Globulin Ratio 1.02 Lipase 57 Serum HCG, Qualitative NEGATIVE Lactic Acid Level 1.7 Medications Medication Current Medications IV Flush (NS 3 ml) 3 ml PER PROTOCOL IV ; Start 09/22/18 at 09:30 Ondansetron HCl (Zofran Inj) 4 mg Q6H PRN IV NAUSEA/VOMITING; Start 09/22/18 at 09:30 Acetaminophen (Tylenol Tab) 650 mg Q6H PRN PO .PAIN 1-3 OR TEMP; Start 09/22/18 at 09:30 Acetaminophen/ Hydrocodone Bitart ([place] (5/325)) 1 tab Q6H PRN PO .PAIN 4-6; Start 09/22/18 at 09:30 Morphine Sulfate (morphine) 2 mg Q4H PRN IV .PAIN 7-10; Start 09/22/18 at 09:30 Pantoprazole (Protonix Iv) 40 mg DAILY@06 IV ; Start 09/23/18 at 06:00 Potassium Chloride/Sodium Chloride 1,000 ml @ 100 mls/hr Q10H IV ; Start 09/22/18 at 09:30 Methylprednisolone Sodium Succinate (Solu-Medrol) 10 mg DAILY IV Last administered on 09/22/18at 11:48; Admin Dose 10 MG; Start 09/22/18 at 10:00 Piperacillin Sod/ Tazobactam Sod 100 ml @ 200 mls/hr Q6 IVPB ; Start 09/22/18 at 12:00 MONIQUE DE LA ROSA Sep 22, 2018 13:48
[2018-09-22 15:48] VITALS: Ht 162.6 cm; Wt 91.5 kg
--- NOTE | 2018-09-22 17:14 | CONS ---
Assessment/Plan Assessment/Plan Assessment/Plan (Daily) 33 yo F with PMH for lupus, rheumatoid arthritis, raynauds on chronic prednisone of 10 mg daily with sudden severe abdominal pain. CT scan showed Mild diffuse mesenteric free fluid and slightly nodular mesenteric fat stranding. A neoplastic process is not excluded on this examination. Thus we were consulted to see if there was an oncological process or workup. # Free fluid with nodular mesenteric fat stranding with abdominal pain -Unlikely related to a neoplasm as patient has autoimmune disease and acute abdominal pain. Inflammation can represent this finding of nodular mesenteric fat. -No other lymph nodes or other areas where there is a noticeable mass. -Autoimmune and inflammatory process can have nodular mesenteric fat stranding. -I would treat the underlying cause of inflammation and infection and then once symptoms have resolved, then I would repeat a CT scan 2-3 weeks after this scan to make sure area in question is resolved or not. -No need to check tumor markers because there is not diagnosis of cancer and markers can be elevated due to inflammation. -Reassured patient that she unlikely has neoplasm. -GI on board and if during their workup they see diffuse LND or mass then we would pursue oncological workup. Patient seems to be stabilizing at this time. Thank you to Dr. Zelaya for allowing me to participate in the care of this patient. Please feel free to contact our team. Consultation Date/Type/Reason Admit Date/Time Date of Consultation: Sep 22, 2018 Type of Consult oncology Reason for Consultation stranding on abdominal CT concern for possible neoplasm Date/Time of Note DATE: 09/22/18 TIME: 17:13 Hx of Present Illness 33 yo F with PMH for lupus, rheumatoid arthritis, raynauds on chronic prednisone of 10 mg daily who presented to the hospital for sudden onset abdominal pain. Patient states that everything was fine when she went to sleep, however around midnight she suddenly woke up with some mild epigastric discomfort that quickly turned into a spreading generalized abdominal pain that was severe. Patient's also had associated symptoms of vomiting and diarrhea as well as nausea. Patient denies headache, dizziness, chest pain, shortness of breath, leg pain, urinary or bowel dysfunction. Denies any hematemesis, melena or hematochezia. Overall appetite and weight has been stable. Due to above symptoms patient received a CT a scan that showed: Interval postsurgical changes from splenectomy. 2. Slightly nodular contour of the liver. Clinical correlation for cirrhosis is recommended. There is mild diffuse periportal edema. 3. Gallbladder wall thickening versus pericholecystic fluid, not significantly changed from prior examination. 4. Mild diffuse mesenteric free fluid and slightly nodular mesenteric fat stranding. A neoplastic process is not excluded on this examination. 5. Free fluid along the pancreas. Correlatioith amylase and lipase is recommended to exclude pancreatitis. 6. Mucosal thickening of the stomach. 7. Mucosal thickening of the ascending and transverse colon, consistent with colitis. 8. Dense material in the cecum, not significantly changed from prior examinat ion. 9. Small free fluid in the pelvis. Due to the above finding of mild mesenteric free fluid with nodular mesenteric fat stranding, we were consulted to see if patient had an underlying malignancy. PSxH: right finger amputation and splenectomy. SH: Denies tobacco, ETOH, or IVDA. FH: Denies any family history of blood disorders or cancers. Meds: see list All: vancomycin Constitutional: improved Eyes: no complaints ENT: no complaints Respiratory: no complaints Cardiovascular: no complaints Gastrointestinal: pain, vomiting Genitourinary: no complaints Musculoskeletal: no complaints Skin: no complaints Neurologic: no complaints Endocrine: no complaints Lymphatic: no complaints Psychological: no complaints, nl mood/affect Immunologic: no complaints Past Medical History Home Meds Active Scripts Ondansetron Hcl* (Zofran*) 8 Mg Tablet, 8 MG PO Q6H PRN for NAUSEA AND OR VOMITING, #20 TAB Prov:JENNY RAWLS MD 09/22/18 Famotidine* (Pepcid*) 20 Mg Tablet, 20 MG PO BID for 14 Days, TAB Prov:JENNY RAWLS MD 09/22/18 Albuterol Sulfate* (Albuterol Sulfate* Neb) 0.083%-3 Ml Neb, 5 MG NEB Q4 PRN for SHORTNESS OF BREATH, #30 EA Prov:MICKY CHAN MD 08/17/18 Reported Medications Ergocalciferol (Vitamin D2) (VITAMIN D2) 50,000 Unit Capsule, 26914 UNIT PO QMONDAY 09/22/18 Ferrous Sulfate* (Ferrous Sulfate*) 325 Mg Tabec, 325 MG PO BID TK 1 T PO BID 09/22/18 Aspirin Ec (Aspir 81) 81 Mg Tablet.dr, 81 MG PO DAILY, #30 TAB 09/22/18 Pantoprazole* (Pantoprazole*) 40 Mg Tablet.dr, 40 MG PO AC BREAKFAST, TAB 01/07/17 Azathioprine* (Imuran*) 50 Mg Tab, 50 MG PO BID, TAB 01/07/17 Hydroxychloroquine Sulfate* (Hydroxychloroquine Sulfate*) 200 Mg Tablet, 200 MG PO BID, TAB 01/07/17 Amlodipine Besylate* (Norvasc*) 5 Mg Tablet, 2.5 MG PO BID, TAB 01/07/17 Discontinued Reported Medications Prednisone* (Prednisone*) 10 Mg Tab, 10 MG PO BID, TAB 01/07/17 Discontinued Scripts Azithromycin* (Zithromax*) 250 Mg Tablet, 250 MG PO .TylerPAMALLIKA DIRECTED, #6 TAB TAKE 500 MG (2 TABS) THE FIRST DAY THEN 250 MG (1 TAB) DAYS 2-5 Prov:MICKY CHAN MD 08/17/18 Prednisone* (Prednisone*) 20 Mg Tab, 40 MG PO DAILY for 4 Days, TAB Prov:MICKY CHAN MD 08/17/18 Acetaminophen* (Tylenol*) 325 Mg Tablet, 2 TAB PO Q8 PRN for PAIN AND OR ELEVATED TEMP, #20 TAB Prov:ANT MANRIQUEZ PA-C 06/11/18 Ibuprofen* (Motrin*) 800 Mg Tab, 800 MG PO Q6, #30 TAB Prov:ANT MANRIQUEZ PA-C 06/11/18 Methylprednisolone* (Medrol* DOSE PACK) 4 Mg/Dose-Pack Tab.ds.pk, 4 MG PO . DIRECTED, #1 PACKET Prov:ANT MANRIQUEZ PA-C 06/11/18 Oseltamivir Phosphate* (Tamiflu*) 75 Mg Capsule, 75 MG PO BID for 5 Days, CAP Prov:ANT MANRIQUEZ PA-C 06/11/18 Naproxen* (Naprosyn*) 500 Mg Tablet, 500 MG PO BID PRN for PAIN AND/OR INFLAMMATION, #30 TAB Prov:MEKHI LOVE PA-C 04/19/18 Ciprofloxacin Hcl* (Ciprofloxacin Hcl*) 500 Mg Tablet, 500 MG PO DAILY for 5 Days, #5 TAB Prov:MEKHI LOVE PA-C 04/03/18 Bismuth Subsalicylate* (Bismuth Subsalicylate*) 262 Mg/15 Ml Oral.susp, 15 ML PO Q6 PRN for diarr, #1 BOTTLE Prov:MEKHI LOVE PA-C 04/03/18 Ondansetron (Ondansetron Odt) 4 Mg Tab.rapdis, 4 MG PO Q6H PRN for NAUSEA AND/OR VOMITING, #10 TAB Prov:MEKHI LOVE PA-C 04/03/18 Ondansetron (Ondansetron Odt) 8 Mg Tab.rapdis, 8 MG PO Q8 PRN for NAUSEA AND/OR VOMITING, #30 TAB Prov:ZARA GUPTA PA-C 04/01/18 Acetaminophen* (Acetaminophen*) 650 Mg Tablet, 650 MG PO Q6H PRN for PAIN AND OR ELEVATED TEMP, #30 TAB Prov:ZARA GUPTA-C 04/01/18 Diphenhydramine Hcl* (Benadryl*) 25 Mg Cap, 25-50 MG PO Q6 PRN for ITCHING/RASH, #30 TAB Prov:ZARA GUPTAC 02/01/18 Sulfamethoxazole/Trimethoprim* (Bactrim Ds* Tablet) 1 Each Tablet, 1 TAB PO BID, #14 TAB Prov:ZARA GUPTAC 02/01/18 Cephalexin* (Keflex*) 500 Mg Capsule, 500 MG PO QID for 7 Days, CAP Prov:ZARA GUPTAC 02/01/18 Cephalexin* (Keflex*) 500 Mg Capsule, 500 MG PO QID for 7 Days, CAP Prov:MINA BLACK PA-C 02/10/17 Sulfamethoxazole/Trimethoprim* (Bactrim Ds* Tablet) 1 Each Tablet, 1 TAB PO BID for 10 Days, TAB Prov:MINA BLACKC 02/10/17 Prednisone* (Prednisone*) 20 Mg Tab, 40 MG PO DAILY for 14 Days, #28 TAB Prov:PATO ZELAYA 01/14/17 Oxycodone HCl/Acetaminophen (Percocet 10-325 mg Tablet) 1 Each Tablet, 1 EACH PO Q8 PRN for PAIN for 7 Days, #21 TAB Prov:PATO ZELAYA 01/11/17 Medications Current Medications IV Flush (NS 3 ml) 3 ml PER PROTOCOL IV ; Start 09/22/18 at 09:30 Ondansetron HCl (Zofran Inj) 4 mg Q6H PRN IV NAUSEA/VOMITING; Start 09/22/18 at 09:30 Acetaminophen (Tylenol Tab) 650 mg Q6H PRN PO .PAIN 1-3 OR TEMP Last administered on 09/22/18at 13:57; Admin Dose 650 MG; Start 09/22/18 at 09:30 Acetaminophen/ Hydrocodone Bitart ([employer] (5/325)) 1 tab Q6H PRN PO .PAIN 4-6; Start 09/22/18 at 09:30 Morphine Sulfate (morphine) 2 mg Q4H PRN IV .PAIN 7-10; Start 09/22/18 at 09:30 Pantoprazole (Protonix Iv) 40 mg DAILY@06 IV ; Start 09/23/18 at 06:00 Potassium Chloride/Sodium Chloride 1,000 ml @ 100 mls/hr Q10H IV Last administered on 09/22/18at 13:36; Admin Dose 100 MLS/HR; Start 09/22/18 at 09:30 Methylprednisolone Sodium Succinate (Solu-Medrol) 10 mg DAILY IV Last administered on 09/22/18at 11:48; Admin Dose 10 MG; Start 09/22/18 at 10:00 Piperacillin Sod/ Tazobactam Sod 100 ml @ 200 mls/hr Q6 IVPB Last administered on 09/22/18at 13:36; Admin Dose 200 MLS/HR; Start 09/22/18 at 12:00 Allergies: Coded Allergies: vancomycin (Verified Allergy, Unknown, 09/22/18) Family History Significant Family History: no pertinent family hx Social History Alcohol Use: none Smoking Status: Never smoker Exam/Review of Systems Exam Vitals Vital Signs Date Temp Pulse Resp B/P (MAP) Pulse Ox O2 O2 Flow FiO2 Time Delivery Rate 09/22/18 102.8 13:57 09/22/18 104 18 148/87 100 Room Air 12:59 (107) Constitutional: alert, oriented, well developed Psych: no complaints, nl mood/affect Head: normocephalic, atraumatic Eyes: nl conjunctiva, EOMI, nl lids, nl sclera, PERRL ENMT: nl external ears & nose, nl lips & teeth, nl nasal mucosa & septum Neck: supple, non-tender Respiratory: clear to auscultation, normal air movement Cardiovascular: regular rate and rhythm, nl pulses Gastrointestinal: bowel sounds, rebound or guarding, other (spleen absent) Genitourinary - Female: nl adnexae Musculoskeletal: nl extremities to inspection, nl gait and stance Extremities: normal pulses Neurological: [employer] II-XII intact, nl mental status, nl speech Results Result Diagram: 09/22/18 0426 09/22/18 0426 Results 24hrs Laboratory Tests Test 09/22/18 04:26 09/22/18 10:59 09/22/18 13:57 White Blood Count 19.3 #H Red Blood Count 4.13 L Hemoglobin 12.0 # Hematocrit 39.3 # Mean Corpuscular Volume 95.2 Mean Corpuscular Hemoglobin 29.1 Mean Corpuscular Hemoglobin Concent 30.5 L Red Cell Distribution Width Platelet Count 391 # Mean Platelet Volume 10.3 Immature Granulocytes % 0.700 H Neutrophils % 86.8 H Segmented Neutrophils % (Manual) 71 Band Neutrophils % (Manual) 14 H Lymphocytes % 4.1 L Lymphocytes % (Manual) 3 L Monocytes % 6.5 Monocytes % (Manual) 7 Eosinophils % 1.5 Eosinophils % (Manual) 5 Basophils % 0.4 Nucleated Red Blood Cells % 1 H Immature Granulocytes # 0.140 H Neutrophils # Neutrophils # (Manual) 14.2 H Band Neutrophils # 2.7 H Lymphocytes (Manual) 0.5 L Lymphocytes # Monocytes # Monocytes # (Manual) 1.3 H Eosinophils # Basophils # Nucleated Red Blood Cells # Platelet Estimate NORMAL Giant Platelets 6 H Polychromasia 3+ Hypochromasia 1+ Poikilocytosis 2+ Anisocytosis 1+ Macrocytosis 1+ Target Cells 1+ Ovalocytes 1+ Acanthocytes 1+ Sodium Level 146 H Potassium Level 3.2 L Chloride Level 109 Carbon Dioxide Level 24 Anion Gap 13 Blood Urea Nitrogen 13 Creatinine 0.65 Est Glomerular Filtrat Rate mL/min > 60 Glucose Level 121 Calcium Level 8.7 Total Bilirubin 0.6 Direct Bilirubin 0.00 Indirect Bilirubin 0.6 Aspartate Amino Transf (AST/SGOT) 37 Alanine Aminotransferase (ALT/SGPT) 33 Alkaline Phosphatase 127 H Total Protein 7.5 Albumin 3.8 Globulin 3.70 H Albumin/Globulin Ratio 1.02 Lipase 57 Serum HCG, Qualitative NEGATIVE Lactic Acid Level 1.7 Hepatitis B Surface Antigen NEGATIVE Hepatitis B Surface Antibody NEGATIVE Hepatitis B Core Total Antibody NEGATIVE Medications Medication Current Medications IV Flush (NS 3 ml) 3 ml PER PROTOCOL IV ; Start 09/22/18 at 09:30 Ondansetron HCl (Zofran Inj) 4 mg Q6H PRN IV NAUSEA/VOMITING; Start 09/22/18 at 09:30 Acetaminophen (Tylenol Tab) 650 mg Q6H PRN PO .PAIN 1-3 OR TEMP Last administered on 09/22/18 13:57; Admin Dose 650 MG; Start 09/22/18 at 09:30 Acetaminophen/ Hydrocodone Bitart ([employer] (5/325)) 1 tab Q6H PRN PO .PAIN 4-6; Start 09/22/18 at 09:30 Morphine Sulfate (morphine) 2 mg Q4H PRN IV .PAIN 7-10; Start 09/22/18 at 09:30 Pantoprazole (Protonix Iv) 40 mg DAILY@06 IV ; Start 09/23/18 at 06:00 Potassium Chloride/Sodium Chloride 1,000 ml @ 100 mls/hr Q10H IV Last administered on 09/22/18at 13:36; Admin Dose 100 MLS/HR; Start 09/22/18 at 09:30 Methylprednisolone Sodium Succinate (Solu-Medrol) 10 mg DAILY IV Last administered on 09/22/18at 11:48; Admin Dose 10 MG; Start 09/22/18 at 10:00 Piperacillin Sod/ Tazobactam Sod 100 ml @ 200 mls/hr Q6 IVPB Last administered on 09/22/18at 13:36; Admin Dose 200 MLS/HR; Start 09/22/18 at 12:00 CRISSY PAINTING DO Sep 22, 2018 17:14
[2018-09-22] MEDS: morphine 2 MG INJ IV PRN ×2 (17:46→23:28)
[2018-09-22] MEDS: ONDANSETRON 4 MG INJ IV PRN (18:56)
[2018-09-22] MEDS: HYDROCODONE/APAP (5/325) TAB PO PRN (18:57)
[2018-09-22 20:05] VITALS: BP 131/71; PULSE 81; RESP 18
[2018-09-22] MEDS ORDERED: CIPROFLOXACIN 400MG/D5W 200 ML IVPB SCH (21:00)
[2018-09-23 02:45] VITALS: BP 124/68; PULSE 69; RESP 16
[2018-09-23] MEDS ORDERED: PANTOPRAZOLE 40 MG INJ ONE (04:19)
[2018-09-23] MEDS: PIPER-TAZO 3.375 GM IV (PMX) 100 ML IVPB SCH ×4 (05:23→23:40)
[2018-09-23] MEDS: NS + KCL 20 MEQ 1,000 ML IV SCH ×2 (05:23→16:05)
[2018-09-23] MEDS: PANTOPRAZOLE 40 MG INJ IV SCH (05:23)
[2018-09-23 08:00] VITALS: BP 122/78; PULSE 80; RESP 18
[2018-09-23] MEDS: METHYLPREDNISOLONE 40 MG INJ IV SCH (09:38)
[2018-09-23] MEDS: morphine 2 MG INJ IV PRN (10:56)
[2018-09-23] MEDS: HYDROCODONE/APAP (5/325) TAB PO PRN (12:05)
[2018-09-23 13:31] VITALS: BP 124/71; PULSE 69; RESP 18
--- NOTE | 2018-09-23 13:44 | PN ---
Date/Time of Note Date/Time of Note DATE: 09/23/18 TIME: 13:39 Assessment/Plan VTE Prophylaxis Risk score (from Nsg)>0 risk: 2 SCD applied (from Nsg): Yes Pharmacological prophylaxis: other Lines/Catheters IV Catheter Type (from Nrsg): Peripheral IV Urinary Cath still in place: No Assessment/Plan Hospital Course Subjective Patient feeling much better than yesterday but still has some residual abdominal pain, is nauseated with some clears but doing much better than yesterday. Objective Physical exam General: Patient is laying in bed and answers questions appropriately Mentation: Patient is alert and oriented 4, Head: Normocephalic atraumatic Eyes: EOMI, pupils reactive to light Neck: Supple, nontender, midline Respiratory: Clear to auscultation bilaterally Cardiovascular: regular rate, no obvious murmurs Gastrointestinal: Very mild generalized tenderness to palpation, bowel sounds heard. Neurological: Moves all extremities spontaneously Skin: No new skin lesions Assessment and plan Colitis -Given immunocompromised status secondary to prednisone use, will need to rule out bacterial infection, will start IV zosyn given her immunocompromised status. -CT findings have multiple issues regarding the GI system, will consult GI -Clears as tolerated will increase as tolerated. Sepsis, significantly improving -Secondary to above colitis -IV fluid -Broad-spectrum antibiotic -Blood cultures -Lactic acid noted Mesenteric free fluid and slightly nodular mesenteric fat stranding -Found on CT, cannot rule out neoplastic process -Oncology has been consulted however does not feel like this is a metastatic process recommends waiting until inflammation dies down or if GI sees mass on colonoscopy and recommend CT scan outpatient after inflammation dies down to see if there is any mass., GI also on board, pending recommendations Nodular liver -No history of cirrhosis however with lupus may have been affecting her liver this whole time without knowledge, GI on board Gallbladder wall thickening -Unchanged since previous CT done in 2017, unlikely cholecystitis however will defer to GI recommendations Free fluid in pelvis -Mild, likely secondary to everything that is going on in her GI system, monitor closely, IV antibiotic, GI recommendations appreciated Electrolyte derangement -Likely secondary to nausea and vomiting, replace as needed Nausea vomiting -Secondary to colitis above, treat as needed, GI recommendations appreciated Rheumatoid arthritis and lupus -Patient on chronic prednisone, as did not make her go into adrenal insufficiency due to chronic prednisone use, will continue on Solu-Medrol for now, patient follows up with water plumber, Dr. Ramirez on a normal basis. Will need to follow-up afterwards for continued management History of splenic infarct status post splenectomy -Monitor Raynauds -With right finger amputation secondary to complications, stable, chronic, monitor Disposition -Treatment for colitis with IV antibiotic, planning EGD and colonoscopy per GI once patient stable. Result Diagram: 09/23/18 0555 09/23/18 0555 Results 24hrs Laboratory Tests Test 09/22/18 13:57 09/23/18 05:55 Anti-Nuclear Antibody Screen Pending Anti-Mitochondrial Antibody NEGATIVE Smooth Muscle Antibody Interpret NEGATIVE Hepatitis B Surface Antigen NEGATIVE Hepatitis B Surface Antibody NEGATIVE Hepatitis B Core Total Antibody NEGATIVE Hepatitis C RNA (PCR) IUs/ml Pending Hepatitis C RNA (PCR) log IUs/ml Pending Hepatitis C RNA Comment Pending White Blood Count 8.7 # Red Blood Count 3.47 L Hemoglobin 10.1 L Hematocrit 32.9 L Mean Corpuscular Volume 94.8 Mean Corpuscular Hemoglobin 29.1 Mean Corpuscular Hemoglobin Concent 30.7 L Red Cell Distribution Width Platelet Count 347 Mean Platelet Volume 10.1 Immature Granulocytes % 0.500 H Neutrophils % 79.3 H Lymphocytes % 10.4 L Monocytes % 9.0 Eosinophils % 0.5 Basophils % 0.3 Nucleated Red Blood Cells % 0.3 H Immature Granulocytes # 0.040 H Neutrophils # 6.9 Lymphocytes # 0.9 Monocytes # 0.8 Eosinophils # 0.0 Basophils # 0.0 Nucleated Red Blood Cells # 0.0 Sodium Level 141 Potassium Level 3.6 Chloride Level 113 H Carbon Dioxide Level 21 Anion Gap 7 Blood Urea Nitrogen 12 Creatinine 0.55 Est Glomerular Filtrat Rate mL/min > 60 Glucose Level 85 Hemoglobin A1c 4.8 Calcium Level 8.5 Magnesium Level 2.0 Total Bilirubin 0.4 Direct Bilirubin 0.00 Indirect Bilirubin 0.4 Aspartate Amino Transf (AST/SGOT) 24 Alanine Aminotransferase (ALT/SGPT) 27 Alkaline Phosphatase 83 Total Protein 6.2 # Albumin 3.0 L Globulin 3.20 Albumin/Globulin Ratio 0.93 Triglycerides Level 57 Cholesterol Level 111 LDL Cholesterol, Calculated 61 HDL Cholesterol 39 Cholesterol/HDL Ratio 2.8 Exam/Review of Systems Exam Vitals Vital Signs Date Temp Pulse Resp B/P (MAP) Pulse Ox O2 O2 Flow FiO2 Time Delivery Rate 09/23/18 98.4 69 18 124/71 97 13:31 (88) 09/23/18 Room Air 02:45 Intake and Output 09/22/18 09/22/18 09/23/18 1515:00 23:00 07:00 IntakeIntake Total 100 ml 600 ml 1800 ml BalanceBalance 100 ml 600 ml 1800 ml Results Results 24hrs Laboratory Tests Test 09/22/18 13:57 09/23/18 05:55 Anti-Nuclear Antibody Screen Pending Anti-Mitochondrial Antibody NEGATIVE Smooth Muscle Antibody Interpret NEGATIVE Hepatitis B Surface Antigen NEGATIVE Hepatitis B Surface Antibody NEGATIVE Hepatitis B Core Total Antibody NEGATIVE Hepatitis C RNA (PCR) IUs/ml Pending Hepatitis C RNA (PCR) log IUs/ml Pending Hepatitis C RNA Comment Pending White Blood Count 8.7 # Red Blood Count 3.47 L Hemoglobin 10.1 L Hematocrit 32.9 L Mean Corpuscular Volume 94.8 Mean Corpuscular Hemoglobin 29.1 Mean Corpuscular Hemoglobin Concent 30.7 L Red Cell Distribution Width Platelet Count 347 Mean Platelet Volume 10.1 Immature Granulocytes % 0.500 H Neutrophils % 79.3 H Lymphocytes % 10.4 L Monocytes % 9.0 Eosinophils % 0.5 Basophils % 0.3 Nucleated Red Blood Cells % 0.3 H Immature Granulocytes # 0.040 H Neutrophils # 6.9 Lymphocytes # 0.9 Monocytes # 0.8 Eosinophils # 0.0 Basophils # 0.0 Nucleated Red Blood Cells # 0.0 Sodium Level 141 Potassium Level 3.6 Chloride Level 113 H Carbon Dioxide Level 21 Anion Gap 7 Blood Urea Nitrogen 12 Creatinine 0.55 Est Glomerular Filtrat Rate mL/min > 60 Glucose Level 85 Hemoglobin A1c 4.8 Calcium Level 8.5 Magnesium Level 2.0 Total Bilirubin 0.4 Direct Bilirubin 0.00 Indirect Bilirubin 0.4 Aspartate Amino Transf (AST/SGOT) 24 Alanine Aminotransferase (ALT/SGPT) 27 Alkaline Phosphatase 83 Total Protein 6.2 # Albumin 3.0 L Globulin 3.20 Albumin/Globulin Ratio 0.93 Triglycerides Level 57 Cholesterol Level 111 LDL Cholesterol, Calculated 61 HDL Cholesterol 39 Cholesterol/HDL Ratio 2.8 Medications Medication Current Medications IV Flush (NS 3 ml) 3 ml PER PROTOCOL IV ; Start 09/22/18 at 09:30 Ondansetron HCl (Zofran Inj) 4 mg Q6H PRN IV NAUSEA/VOMITING Last administered on 09/22/18at 18:56; Admin Dose 4 MG; Start 09/22/18 at 09:30 Acetaminophen (Tylenol Tab) 650 mg Q6H PRN PO .PAIN 1-3 OR TEMP Last administered on 09/22/18 13:57; Admin Dose 650 MG; Start 09/22/18 at 09:30 Acetaminophen/ Hydrocodone Bitart ([place] (5/325)) 1 tab Q6H PRN PO .PAIN 4-6 Last administered on 09/23/18 12:05; Admin Dose 1 TAB; Start 09/22/18 at 09:30 Morphine Sulfate (morphine) 2 mg Q4H PRN IV .PAIN 7-10 Last administered on 09/23/18 10:56; Admin Dose 2 MG; Start 09/22/18 at 09:30 Pantoprazole (Protonix Iv) 40 mg DAILY@06 IV Last administered on 09/23/18 05:23; Admin Dose 40 MG; Start 09/23/18 at 06:00 Potassium Chloride/Sodium Chloride 1,000 ml @ 100 mls/hr Q10H IV Last administered on 09/23/18 05:23; Admin Dose 100 MLS/HR; Start 09/22/18 at 09:30 Methylprednisolone Sodium Succinate (Solu-Medrol) 10 mg DAILY IV Last administered on 09/23/18 09:38; Admin Dose 10 MG; Start 09/22/18 at 10:00 Piperacillin Sod/ Tazobactam Sod 100 ml @ 200 mls/hr Q6 IVPB Last administered on 09/23/18 12:05; Admin Dose 200 MLS/HR; Start 09/22/18 at 12:00 PATO MEAD Sep 23, 2018 13:44
[2018-09-23] MEDS: morphine 4 MG/ML VIAL IV PRN ×2 (14:38→20:19)
--- NOTE | 2018-09-23 15:12 | PN ---
Date/Time of Note Date/Time of Note DATE: 09/23/18 TIME: 14:51 Assessment/Plan VTE Prophylaxis Risk score (from Ns)>0 risk: 2 SCD applied (from Ns): Yes Pharmacological prophylaxis: NA/contraindicated Pharm contraindication: liver dx Lines/Catheters [facility] Peripheral IV Urinary Cath still in place: No Assessment/Plan Assessment/Plan Assessment: Upper abdominal pain Imaging consistent with colitis and noted stomach wall thickening Mesenteric fat stranding on CT Peripancreatic fluid on CT rule out pancreatitis N/v with hematemesis-resolved Questionable cirrhosis Fevers- unclear if 2/2 to lupus or infectious disease process Lupus Rheumatoid arthritis Raynaud's Leukocytosis- resolved (prednisone use) Significant bandemia- on Zosyn History of splenectomy secondary to lupus flare about 1 year ago Plan: Check amylase/lipase with a.m. labs Continue Protonix daily Started Carafate 4 times daily Started Levsin 4 times daily EGD/colonoscopy -on Wednesday Hepatitis serology and autoimmune panel is negative Pt may require liver bx in the future- also in the ddx lupus hepatitis leading to cirrhosis?? Stool studies are pending Blood cultures -negative so far Monitor labs Patient seen in collaboration with Dr. Garner Subjective: Patient reports feeling better today. Complaining of epigastric and left upper quadrant pain radiating to the back. Will check amylase and lipase with a.m. labs. Start Carafate. Continue clear liquid diet. Continue Protonix. Plan for EGD/colonoscopy on Wednesday. Discussed the plan with the patient. Patient is agreeable. PHYSICAL EXAMINATION: GENERAL: Well developed, well nourished, alert & oriented x 3, in no acute distress SKIN: No lesions, no stigmata chronic liver disease, no evidence of bleeding diathesis LYMPHATIC: No palpable lymphadenopathy. HEAD: Normocephalic, atraumatic, no tenderness. EYES: Pupils equal reactive to light and accommodation, full extraocular movements, sclera clear, non-icteric, no discharge. EARS/NOSE AND THROAT: Ears normal, nose normal, oropharynx normal, oral membranes well hydrated without lesions. NECK: Supple, no masses, thyroid normal, JVP within normal limits, carotids normal without bruits. CHEST: Inspection within normal limits. CARDIOVASCULAR: Heart: Regular rate and rhythm, no murmurs, gallops or rubs. Peripheral pulses present within normal limits, no cyanosis, clubbing or edemas. No pulsatile abdominal mass RESPIRATORY: Lungs clear to auscultation and percussion, no wheezing, no rubs GASTROINTESTINAL AND LIVER: Abdomen: Soft, epigastric and left upper quadrant tenderness, non-distended, no hernias, no masses, no organomegaly, no ascites, no guarding, no rebound tenderness, normoactive bowel sounds. Rectal: Deferred. GENITOURINARY: Female genitalia within normal limits. EXTREMITIES: No cyanosis, clubbing or edema. Result Diagram: 09/23/1855409/23/18554 Results 24hrs Laboratory Tests Test 09/23/18 05:55 White Blood Count 8.7 # Red Blood Count 3.47 L Hemoglobin 10.1 L Hematocrit 32.9 L Mean Corpuscular Volume 94.8 Mean Corpuscular Hemoglobin 29.1 Mean Corpuscular Hemoglobin Concent 30.7 L Red Cell Distribution Width Platelet Count 347 Mean Platelet Volume 10.1 Immature Granulocytes % 0.500 H Neutrophils % 79.3 H Lymphocytes % 10.4 L Monocytes % 9.0 Eosinophils % 0.5 Basophils % 0.3 Nucleated Red Blood Cells % 0.3 H Immature Granulocytes # 0.040 H Neutrophils # 6.9 Lymphocytes # 0.9 Monocytes # 0.8 Eosinophils # 0.0 Basophils # 0.0 Nucleated Red Blood Cells # 0.0 Sodium Level 141 Potassium Level 3.6 Chloride Level 113 H Carbon Dioxide Level 21 Anion Gap 7 Blood Urea Nitrogen 12 Creatinine 0.55 Est Glomerular Filtrat Rate mL/min > 60 Glucose Level 85 Hemoglobin A1c 4.8 Calcium Level 8.5 Magnesium Level 2.0 Total Bilirubin 0.4 Direct Bilirubin 0.00 Indirect Bilirubin 0.4 Aspartate Amino Transf (AST/SGOT) 24 Alanine Aminotransferase (ALT/SGPT) 27 Alkaline Phosphatase 83 Total Protein 6.2 # Albumin 3.0 L Globulin 3.20 Albumin/Globulin Ratio 0.93 Triglycerides Level 57 Cholesterol Level 111 LDL Cholesterol, Calculated 61 HDL Cholesterol 39 Cholesterol/HDL Ratio 2.8 CC: JAY GARNER ; Exam/Review of Systems Exam Vitals Vital Signs Date Temp Pulse Resp B/P (MAP) Pulse Ox O2 O2 Flow FiO2 Time Delivery Rate 09/23/18 98.4 69 18 124/71 97 13:31 (88) 09/23/18 Room Air 02:45 Intake and Output 09/22/18 09/22/18 09/23/18 1515:00 23:00 07:00 IntakeIntake Total 100 ml 600 ml 1800 ml BalanceBalance 100 ml 600 ml 1800 ml Results Results 24hrs Laboratory Tests Test 09/23/18 05:55 White Blood Count 8.7 # Red Blood Count 3.47 L Hemoglobin 10.1 L Hematocrit 32.9 L Mean Corpuscular Volume 94.8 Mean Corpuscular Hemoglobin 29.1 Mean Corpuscular Hemoglobin Concent 30.7 L Red Cell Distribution Width Platelet Count 347 Mean Platelet Volume 10.1 Immature Granulocytes % 0.500 H Neutrophils % 79.3 H Lymphocytes % 10.4 L Monocytes % 9.0 Eosinophils % 0.5 Basophils % 0.3 Nucleated Red Blood Cells % 0.3 H Immature Granulocytes # 0.040 H Neutrophils # 6.9 Lymphocytes # 0.9 Monocytes # 0.8 Eosinophils # 0.0 Basophils # 0.0 Nucleated Red Blood Cells # 0.0 Sodium Level 141 Potassium Level 3.6 Chloride Level 113 H Carbon Dioxide Level 21 Anion Gap 7 Blood Urea Nitrogen 12 Creatinine 0.55 Est Glomerular Filtrat Rate mL/min > 60 Glucose Level 85 Hemoglobin A1c 4.8 Calcium Level 8.5 Magnesium Level 2.0 Total Bilirubin 0.4 Direct Bilirubin 0.00 Indirect Bilirubin 0.4 Aspartate Amino Transf (AST/SGOT) 24 Alanine Aminotransferase (ALT/SGPT) 27 Alkaline Phosphatase 83 Total Protein 6.2 # Albumin 3.0 L Globulin 3.20 Albumin/Globulin Ratio 0.93 Triglycerides Level 57 Cholesterol Level 111 LDL Cholesterol, Calculated 61 HDL Cholesterol 39 Cholesterol/HDL Ratio 2.8 Medications Medication Current Medications IV Flush (NS 3 ml) 3 ml PER PROTOCOL IV ; Start 09/22/18 at 09:30 Ondansetron HCl (Zofran Inj) 4 mg Q6H PRN IV NAUSEA/VOMITING Last administered on 09/22/18at 18:56; Admin Dose 4 MG; Start 09/22/18 at 09:30 Acetaminophen (Tylenol Tab) 650 mg Q6H PRN PO .PAIN 1-3 OR TEMP Last administered on 09/22/18at 13:57; Admin Dose 650 MG; Start 09/22/18 at 09:30 Acetaminophen/ Hydrocodone Bitart ([place] (5/325)) 1 tab Q6H PRN PO .PAIN 4-6 Last administered on 09/23/18 12:05; Admin Dose 1 TAB; Start 09/22/18 at 09:30 Pantoprazole (Protonix Iv) 40 mg DAILY@06 IV Last administered on 09/23/18 05:23; Admin Dose 40 MG; Start 09/23/18 at 06:00 Potassium Chloride/Sodium Chloride 1,000 ml @ 100 mls/hr Q10H IV Last administered on 09/23/18 05:23; Admin Dose 100 MLS/HR; Start 09/22/18 at 09:30 Methylprednisolone Sodium Succinate (Solu-Medrol) 10 mg DAILY IV Last administered on 09/23/18 09:38; Admin Dose 10 MG; Start 09/22/18 at 10:00 Piperacillin Sod/ Tazobactam Sod 100 ml @ 200 mls/hr Q6 IVPB Last administered on 09/23/18 12:05; Admin Dose 200 MLS/HR; Start 09/22/18 at 12:00 Morphine Sulfate (morphine) 4 mg Q4H PRN IV .PAIN 7-10 Last administered on 09/23/18 14:38; Admin Dose 4 MG; Start 09/23/18 at 14:30 PAUL APPIAH NP Sep 23, 2018 15:01
[2018-09-23] MEDS ORDERED: LIDOCAINE/MYLANTA 40 ML BTL PO ONE (15:30)
[2018-09-23] MEDS: SUCRALFATE (100 MG/ML) 10ML CUP PO SCH ×2 (17:24→20:19)
[2018-09-23] MEDS: HYOSCYAMINE 0.125 MG TAB PO SCH (17:24)
[2018-09-23] MEDS ORDERED: morphine 4 MG/ML VIAL IV PRN (17:30)
[2018-09-23 20:00] VITALS: BP 137/82; PULSE 50; RESP 18
[2018-09-24 00:53] VITALS: BP 145/90; PULSE 66; RESP 19
[2018-09-24] MEDS: HYOSCYAMINE 0.125 MG TAB PO SCH ×4 (00:58→17:29)
[2018-09-24] MEDS: morphine 4 MG/ML VIAL IV PRN ×3 (00:58→12:30)
[2018-09-24] MEDS ORDERED: METHYLPREDNISOLONE 40 MG INJ IV ONE (01:30)
[2018-09-24] MEDS ORDERED: DIPHENHYDRAMINE 50 MG INJ IV ONE (01:30)
[2018-09-24] MEDS: PANTOPRAZOLE 40 MG INJ IV SCH (05:40)
[2018-09-24] MEDS: NS + KCL 20 MEQ 1,000 ML IV SCH ×3 (05:40→18:16)
[2018-09-24] MEDS: PIPER-TAZO 3.375 GM IV (PMX) 100 ML IVPB SCH ×4 (05:43→23:59)
[2018-09-24 08:00] VITALS: BP 127/80; PULSE 65; RESP 18
[2018-09-24] MEDS: SUCRALFATE (100 MG/ML) 10ML CUP PO SCH ×4 (08:09→20:25)
[2018-09-24] MEDS: METHYLPREDNISOLONE 40 MG INJ IV SCH (08:09)
--- NOTE | 2018-09-24 10:57 | CONS ---
Assessment/Plan Assessment/Plan Assessment/Plan (Daily) 33 yo F with PMH for lupus, rheumatoid arthritis, raynauds on chronic prednisone of 10 mg daily with sudden severe abdominal pain. CT scan showed Mild diffuse mesenteric free fluid and slightly nodular mesenteric fat stranding. A neoplastic process is not excluded on this examination. Thus we were consulted to see if there was an oncological process or workup. # Free fluid with nodular mesenteric fat stranding with abdominal pain -Unlikely related to a neoplasm as patient has autoimmune disease and acute abdominal pain. Inflammation can represent this finding of nodular mesenteric fat. -No other lymph nodes or other areas where there is a noticeable mass. -Autoimmune and inflammatory process can have nodular mesenteric fat stranding. -I would treat the underlying cause of inflammation and infection and then once symptoms have resolved, then I would repeat a CT scan 2-3 weeks after this scan to make sure area in question is resolved or not. -No need to check tumor markers because there is not diagnosis of cancer and markers can be elevated due to inflammation. -Reassured patient that she unlikely has neoplasm. -GI on board and if during their workup they see diffuse LND or mass then we would pursue oncological workup. Patient seems to be stabilizing at this time. Thank you. Please feel free to contact our team. Consultation Date/Type/Reason Admit Date/Time Sep 22, 2018 at 09:01 Initial Consult Date 09/22/18 Date/Time of Note DATE: 09/24/18 TIME: 10:56 Exam/Review of Systems Exam Vitals Vital Signs Date Temp Pulse Resp B/P (MAP) Pulse Ox O2 O2 Flow FiO2 Time Delivery Rate 09/24/18 98.0 65 18 127/80 94 Room Air 08:00 (96) Intake and Output 09/23/18 09/23/18 09/24/18 1515:00 23:00 07:00 IntakeIntake Total 730 ml 1650 ml 1200 ml BalanceBalance 730 ml 1650 ml 1200 ml Results Result Diagram: 09/24/18 0447 09/24/18 0447 Results 24hrs Laboratory Tests Test 09/24/18 04:47 White Blood Count 6.8 # Red Blood Count 3.62 L Hemoglobin 10.7 L Hematocrit 34.8 L Mean Corpuscular Volume 96.1 Mean Corpuscular Hemoglobin 29.6 Mean Corpuscular Hemoglobin Concent 30.7 L Red Cell Distribution Width Platelet Count 341 Mean Platelet Volume 10.4 Immature Granulocytes % 1.300 H Neutrophils % 85.6 H Lymphocytes % 6.6 L Monocytes % 5.9 Eosinophils % 0.3 Basophils % 0.3 Nucleated Red Blood Cells % 0.4 H Immature Granulocytes # 0.090 H Neutrophils # 5.8 Lymphocytes # 0.5 L Monocytes # 0.4 Eosinophils # 0.0 Basophils # 0.0 Nucleated Red Blood Cells # 0.0 Sodium Level 140 Potassium Level 4.5 Chloride Level 108 Carbon Dioxide Level 24 Anion Gap 8 Blood Urea Nitrogen 13 Creatinine 0.60 Est Glomerular Filtrat Rate mL/min > 60 Glucose Level 94 Calcium Level 9.2 Magnesium Level 2.0 Total Bilirubin 0.3 Direct Bilirubin 0.00 Indirect Bilirubin 0.3 Aspartate Amino Transf (AST/SGOT) 27 Alanine Aminotransferase (ALT/SGPT) 28 Alkaline Phosphatase 86 Total Protein 7.0 Albumin 3.4 Globulin 3.60 H Albumin/Globulin Ratio 0.94 Amylase Level < 30 Medications Medication Current Medications IV Flush (NS 3 ml) 3 ml PER PROTOCOL IV ; Start 09/22/18 at 09:30 Ondansetron HCl (Zofran Inj) 4 mg Q6H PRN IV NAUSEA/VOMITING Last administered on 09/22/18 18:56; Admin Dose 4 MG; Start 09/22/18 at 09:30 Acetaminophen (Tylenol Tab) 650 mg Q6H PRN PO .PAIN 1-3 OR TEMP Last administered on 09/22/18 13:57; Admin Dose 650 MG; Start 09/22/18 at 09:30 Acetaminophen/ Hydrocodone Bitart ([place] (5/325)) 1 tab Q6H PRN PO .PAIN 4-6 Last administered on 09/23/18 12:05; Admin Dose 1 TAB; Start 09/22/18 at 09:30 Pantoprazole (Protonix Iv) 40 mg DAILY@06 IV Last administered on 09/24/18 05:40; Admin Dose 40 MG; Start 09/23/18 at 06:00 Potassium Chloride/Sodium Chloride 1,000 ml @ 100 mls/hr Q10H IV Last administered on 09/24/18 05:40; Admin Dose 100 MLS/HR; Start 09/22/18 at 09:30 Methylprednisolone Sodium Succinate (Solu-Medrol) 10 mg DAILY IV Last administered on 09/24/18 08:09; Admin Dose 10 MG; Start 09/22/18 at 10:00 Piperacillin Sod/ Tazobactam Sod 100 ml @ 200 mls/hr Q6 IVPB Last administered on 09/24/18 05:43; Admin Dose 200 MLS/HR; Start 09/22/18 at 12:00 Morphine Sulfate (morphine) 4 mg Q4H PRN IV .PAIN 7-10 Last administered on 09/24/18 05:41; Admin Dose 4 MG; Start 09/23/18 at 14:30 Sucralfate (Carafate Susp) 1 gm QID PO Last administered on 09/24/18 08:09; Admin Dose 1 GM; Start 09/23/18 at 17:00 Hyoscyamine (Levsin) 0.125 mg Q6 PO Last administered on 09/24/18 06:28; Admin Dose 0.125 MG; Start 09/23/18 at 18:00 KENN MANCILLA Sep 24, 2018 10:57
--- NOTE | 2018-09-24 13:16 | PN ---
Date/Time of Note Date/Time of Note DATE: 09/24/18 TIME: 13:14 Objective Vitals Vital Signs Date Temp Pulse Resp B/P (MAP) Pulse Ox O2 O2 Flow FiO2 Time Delivery Rate 09/24/18 98.0 65 18 127/80 94 Room Air 08:00 (96) Intake and Output 09/23/18 09/23/18 09/24/18 1515:00 23:00 07:00 IntakeIntake Total 730 ml 1650 ml 1200 ml BalanceBalance 730 ml 1650 ml 1200 ml Results Result Diagram: 09/24/187 09/24/187 Medications Medications Current Medications IV Flush (NS 3 ml) 3 ml PER PROTOCOL IV ; Start 09/22/18 at 09:30 Ondansetron HCl (Zofran Inj) 4 mg Q6H PRN IV NAUSEA/VOMITING Last administered on 09/22/18at 18:56; Admin Dose 4 MG; Start 09/22/18 at 09:30 Acetaminophen (Tylenol Tab) 650 mg Q6H PRN PO .PAIN 1-3 OR TEMP Last administered on 09/22/18 13:57; Admin Dose 650 MG; Start 09/22/18 at 09:30 Acetaminophen/ Hydrocodone Bitart ([place] (5/325)) 1 tab Q6H PRN PO .PAIN 4-6 Last administered on 09/23/18 12:05; Admin Dose 1 TAB; Start 09/22/18 at 09:30 Pantoprazole (Protonix Iv) 40 mg DAILY@06 IV Last administered on 09/24/18 05:40; Admin Dose 40 MG; Start 09/23/18 at 06:00 Potassium Chloride/Sodium Chloride 1,000 ml @ 100 mls/hr Q10H IV Last administered on 09/24/18 05:40; Admin Dose 100 MLS/HR; Start 09/22/18 at 09:30 Methylprednisolone Sodium Succinate (Solu-Medrol) 10 mg DAILY IV Last administered on 09/24/18 08:09; Admin Dose 10 MG; Start 09/22/18 at 10:00 Piperacillin Sod/ Tazobactam Sod 100 ml @ 200 mls/hr Q6 IVPB Last administered on 09/24/18 12:29; Admin Dose 200 MLS/HR; Start 09/22/18 at 12:00 Sucralfate (Carafate Susp) 1 gm QID PO Last administered on 09/24/18at 12:30; Admin Dose 1 GM; Start 09/23/18 at 17:00 Hyoscyamine (Levsin) 0.125 mg Q6 PO Last administered on 09/24/18at 12:30; Admin Dose 0.125 MG; Start 09/23/18 at 18:00 Hydromorphone HCl (Dilaudid) 0.5 mg Q4H PRN IV SEVERE PAIN LEVEL 7-10; Start 09/24/18 at 13:00 VTE [place] [facility] [place]: 2 [place] [facility] [place] Yes Lines/Catheters IV Catheter Type: Henao in Place: No Assessment/Plan Hospital Course Subjective Nausea has subsided however patient still complaining of abdominal pain. Patient able to ambulate to and from bed without any obvious signs of abdominal issues at this time however. Objective Physical exam General: Patient is laying in bed and answers questions appropriately Mentation: Patient is alert and oriented 4, Head: Normocephalic atraumatic Eyes: EOMI, pupils reactive to light Neck: Supple, nontender, midline Respiratory: Clear to auscultation bilaterally Cardiovascular: regular rate, no obvious murmurs Gastrointestinal: Very mild generalized tenderness to palpation, bowel sounds heard. Neurological: Moves all extremities spontaneously Skin: No new skin lesions Assessment and plan Colitis -Given immunocompromised status secondary to prednisone use, will need to rule out bacterial infection, will start IV zosyn given her immunocompromised status. -CT findings have multiple issues regarding the GI system, GI on board -Clears as tolerated will increase as tolerated. Abdominal pain -Secondary to above colitis -Patient stating she has pain at a level between 6 and 7 however patient is able to ambulate freely to and from bed, and has very minimal tenderness on palpation on physical exam, patient states this is due to pain medication however the physical exam is not consistent with someone with moderate to severe abdominal pain, will consider this minimal at most however will monitor very closely -Epigastric in nature, lipase negative, continue Carafate, Levsin, PPI -Other GI issues are likely contributing to this as well. Sepsis, significantly improving -Secondary to above colitis -IV fluid -Broad-spectrum antibiotic -Blood cultures -Lactic acid noted Mesenteric free fluid and slightly nodular mesenteric fat stranding -Found on CT, cannot rule out neoplastic process -Oncology has been consulted however does not feel like this is a metastatic process recommends waiting until inflammation dies down or if GI sees mass on colonoscopy and recommend CT scan outpatient after inflammation dies down to see if there is any mass., GI also on board, pending recommendations Nodular liver -No history of cirrhosis however with lupus may have been affecting her liver this whole time without knowledge, GI on board Gallbladder wall thickening -Unchanged since previous CT done in 2017, unlikely cholecystitis however will defer to GI recommendations Free fluid in pelvis -Mild, likely secondary to everything that is going on in her GI system, monitor closely, IV antibiotic, GI recommendations appreciated Electrolyte derangement -Likely secondary to nausea and vomiting, replace as needed Nausea vomiting -Secondary to colitis above, treat as needed, GI recommendations appreciated -Subsiding significantly Rheumatoid arthritis and lupus -Patient on chronic prednisone, as did not make her go into adrenal insufficiency due to chronic prednisone use, will continue on Solu-Medrol for now, 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 Ramirez on a normal basis. Will need to follow-up afterwards for continued management History of splenic infarct status post splenectomy -Monitor Raynauds -With right finger amputation secondary to complications, stable, chronic, monitor Allergic reaction after morphine, localized to hand -Questionable issue versus one-time incident, will DC morphine and start Dilaudid Disposition -Treatment for colitis with IV antibiotic, planning EGD and colonoscopy per GI once patient stable. PATO MEAD Sep 24, 2018 13:16
[2018-09-24 14:05] VITALS: BP 153/87; PULSE 64; RESP 18
--- NOTE | 2018-09-24 15:54 | PN ---
Date/Time of Note Date/Time of Note DATE: 09/24/18 TIME: 15:41 Assessment/Plan VTE Prophylaxis Risk score (from [facility])>0 risk: 2 SCD applied (from [facility]): Yes Pharmacological prophylaxis: heparin Lines/Catheters IV Catheter Type (from Nrsg): Urinary Cath still in place: No Assessment/Plan Assessment/Plan Assessment: Upper abdominal pain Imaging consistent with colitis and noted stomach wall thickening Mesenteric fat stranding on CT Peripancreatic fluid on CT rule out pancreatitis - pancreatic enzymes normal N/v with hematemesis-resolved Questionable cirrhosis Fevers- unclear if 2/2 to lupus or infectious disease process Lupus Rheumatoid arthritis Raynaud's Leukocytosis- resolved (prednisone use) Significant bandemia- on Zosyn History of splenectomy secondary to lupus flare about 1 year ago Plan: Continue Protonix daily Continue Carafate 4 times daily Continue Levsin 4 times daily EGD/colonoscopy -on Wednesday Hepatitis serology and autoimmune panel is negative Pt may require liver bx in the future- also in the ddx lupus hepatitis leading to cirrhosis?? Stool studies are pending Blood cultures -negative so far Monitor labs Can try low fiber diet Patient seen in collaboration with Dr. Garner Subjective: Patient reports symptoms somewhat improved today. Continues to complain of epigastric abdominal pain radiating to the back. Plan for EGD/colonoscopy on Wednesday, pt is agreeable to proceed. Discussed the plan with the patient. Will start bowel prep tomorrow. PHYSICAL EXAMINATION: GENERAL: Well developed, well nourished, alert & oriented x 3, in no acute distress SKIN: No lesions, no stigmata chronic liver disease, no evidence of bleeding diathesis LYMPHATIC: No palpable lymphadenopathy. HEAD: Normocephalic, atraumatic, no tenderness. EYES: Pupils equal reactive to light and accommodation, full extraocular movements, sclera clear, non-icteric, no discharge. EARS/NOSE AND THROAT: Ears normal, nose normal, oropharynx normal, oral membranes well hydrated without lesions. NECK: Supple, no masses, thyroid normal, JVP within normal limits, carotids normal without bruits. CHEST: Inspection within normal limits. CARDIOVASCULAR: Heart: Regular rate and rhythm, no murmurs, gallops or rubs. Peripheral pulses present within normal limits, no cyanosis, clubbing or edemas. No pulsatile abdominal mass RESPIRATORY: Lungs clear to auscultation and percussion, no wheezing, no rubs GASTROINTESTINAL AND LIVER: Abdomen: Soft, epigastric and left upper quadrant tenderness, non-distended, no hernias, no masses, no organomegaly, no ascites, no guarding, no rebound tenderness, normoactive bowel sounds. Rectal: Deferred. GENITOURINARY: Female genitalia within normal limits. EXTREMITIES: No cyanosis, clubbing or edema. Result Diagram: 09/24/187 09/24/187 Results 24hrs Laboratory Tests Test 09/24/18 04:47 White Blood Count 6.8 # Red Blood Count 3.62 L Hemoglobin 10.7 L Hematocrit 34.8 L Mean Corpuscular Volume 96.1 Mean Corpuscular Hemoglobin 29.6 Mean Corpuscular Hemoglobin Concent 30.7 L Red Cell Distribution Width Platelet Count 341 Mean Platelet Volume 10.4 Immature Granulocytes % 1.300 H Neutrophils % 85.6 H Lymphocytes % 6.6 L Monocytes % 5.9 Eosinophils % 0.3 Basophils % 0.3 Nucleated Red Blood Cells % 0.4 H Immature Granulocytes # 0.090 H Neutrophils # 5.8 Lymphocytes # 0.5 L Monocytes # 0.4 Eosinophils # 0.0 Basophils # 0.0 Nucleated Red Blood Cells # 0.0 Sodium Level 140 Potassium Level 4.5 Chloride Level 108 Carbon Dioxide Level 24 Anion Gap 8 Blood Urea Nitrogen 13 Creatinine 0.60 Est Glomerular Filtrat Rate mL/min > 60 Glucose Level 94 Calcium Level 9.2 Magnesium Level 2.0 Total Bilirubin 0.3 Direct Bilirubin 0.00 Indirect Bilirubin 0.3 Aspartate Amino Transf (AST/SGOT) 27 Alanine Aminotransferase (ALT/SGPT) 28 Alkaline Phosphatase 86 Total Protein 7.0 Albumin 3.4 Globulin 3.60 H Albumin/Globulin Ratio 0.94 Amylase Level < 30 CC: JAY GARNER ; Exam/Review of Systems Exam Vitals Vital Signs Date Temp Pulse Resp B/P (MAP) Pulse Ox O2 O2 Flow FiO2 Time Delivery Rate 09/24/18 98.0 65 18 127/80 94 Room Air 08:00 (96) Intake and Output 09/23/18 09/23/18 09/24/18 1515:00 23:00 07:00 IntakeIntake Total 730 ml 1650 ml 1200 ml BalanceBalance 730 ml 1650 ml 1200 ml Results Results 24hrs Laboratory Tests Test 09/24/18 04:47 White Blood Count 6.8 # Red Blood Count 3.62 L Hemoglobin 10.7 L Hematocrit 34.8 L Mean Corpuscular Volume 96.1 Mean Corpuscular Hemoglobin 29.6 Mean Corpuscular Hemoglobin Concent 30.7 L Red Cell Distribution Width Platelet Count 341 Mean Platelet Volume 10.4 Immature Granulocytes % 1.300 H Neutrophils % 85.6 H Lymphocytes % 6.6 L Monocytes % 5.9 Eosinophils % 0.3 Basophils % 0.3 Nucleated Red Blood Cells % 0.4 H Immature Granulocytes # 0.090 H Neutrophils # 5.8 Lymphocytes # 0.5 L Monocytes # 0.4 Eosinophils # 0.0 Basophils # 0.0 Nucleated Red Blood Cells # 0.0 Sodium Level 140 Potassium Level 4.5 Chloride Level 108 Carbon Dioxide Level 24 Anion Gap 8 Blood Urea Nitrogen 13 Creatinine 0.60 Est Glomerular Filtrat Rate mL/min > 60 Glucose Level 94 Calcium Level 9.2 Magnesium Level 2.0 Total Bilirubin 0.3 Direct Bilirubin 0.00 Indirect Bilirubin 0.3 Aspartate Amino Transf (AST/SGOT) 27 Alanine Aminotransferase (ALT/SGPT) 28 Alkaline Phosphatase 86 Total Protein 7.0 Albumin 3.4 Globulin 3.60 H Albumin/Globulin Ratio 0.94 Amylase Level < 30 Medications Medication Current Medications IV Flush (NS 3 ml) 3 ml PER PROTOCOL IV ; Start 09/22/18 at 09:30 Ondansetron HCl (Zofran Inj) 4 mg Q6H PRN IV NAUSEA/VOMITING Last administered on 09/22/18at 18:56; Admin Dose 4 MG; Start 09/22/18 at 09:30 Acetaminophen (Tylenol Tab) 650 mg Q6H PRN PO .PAIN 1-3 OR TEMP Last administered on 09/22/18 13:57; Admin Dose 650 MG; Start 09/22/18 at 09:30 Acetaminophen/ Hydrocodone Bitart ([place] (5/325)) 1 tab Q6H PRN PO .PAIN 4-6 Last administered on 09/23/18 12:05; Admin Dose 1 TAB; Start 09/22/18 at 09:30 Pantoprazole (Protonix Iv) 40 mg DAILY@06 IV Last administered on 09/24/18 05:40; Admin Dose 40 MG; Start 09/23/18 at 06:00 Potassium Chloride/Sodium Chloride 1,000 ml @ 100 mls/hr Q10H IV Last administered on 09/24/18 05:40; Admin Dose 100 MLS/HR; Start 09/22/18 at 09:30 Methylprednisolone Sodium Succinate (Solu-Medrol) 10 mg DAILY IV Last administered on 09/24/18 08:09; Admin Dose 10 MG; Start 09/22/18 at 10:00 Piperacillin Sod/ Tazobactam Sod 100 ml @ 200 mls/hr Q6 IVPB Last administered on 09/24/18 12:29; Admin Dose 200 MLS/HR; Start 09/22/18 at 12:00 Sucralfate (Carafate Susp) 1 gm QID PO Last administered on 09/24/18at 12:30; Admin Dose 1 GM; Start 09/23/18 at 17:00 Hyoscyamine (Levsin) 0.125 mg Q6 PO Last administered on 09/24/18 12:30; Admin Dose 0.125 MG; Start 09/23/18 at 18:00 Hydromorphone HCl (Dilaudid) 0.5 mg Q4H PRN IV SEVERE PAIN LEVEL 7-10; Start 09/24/18 at 13:00 KT IBANEZ NP Sep 24, 2018 15:52
[2018-09-24] MEDS: HYDROmorphONE 0.5 MG/0.5 ML SYG IV PRN ×2 (17:32→22:36)
[2018-09-24 20:00] VITALS: BP 144/83; PULSE 58; RESP 18
[2018-09-25 02:00] VITALS: BP 143/85; PULSE 63; RESP 18
[2018-09-25] MEDS: NS + KCL 20 MEQ 1,000 ML IV SCH (04:56)
[2018-09-25] MEDS: HYDROmorphONE 0.5 MG/0.5 ML SYG IV PRN ×4 (04:56→21:09)
[2018-09-25] MEDS: PIPER-TAZO 3.375 GM IV (PMX) 100 ML IVPB SCH ×3 (05:48→17:55)
[2018-09-25] MEDS: HYOSCYAMINE 0.125 MG TAB PO SCH ×4 (05:49→16:49)
[2018-09-25] MEDS: PANTOPRAZOLE 40 MG INJ IV SCH (05:49)
[2018-09-25 08:19] VITALS: BP 145/58; PULSE 76; RESP 18
[2018-09-25] MEDS: SUCRALFATE (100 MG/ML) 10ML CUP PO SCH ×4 (08:38→20:47)
[2018-09-25] MEDS: METHYLPREDNISOLONE 40 MG INJ IV SCH (08:38)
[2018-09-25] MEDS: ONDANSETRON 4 MG INJ IV PRN (09:59)
--- NOTE | 2018-09-25 11:33 | PN ---
Date/Time of Note Date/Time of Note DATE: 09/25/18 TIME: 11:32 Objective Vitals Vital Signs Date Temp Pulse Resp B/P (MAP) Pulse Ox O2 O2 Flow FiO2 Time Delivery Rate 09/25/18 98.4 76 18 145/58 97 08:19 (87) 09/24/18 Room Air 20:00 Intake and Output 09/24/18 09/24/18 09/25/18 1515:00 23:00 07:00 IntakeIntake Total 220 ml 2000 ml 1640 ml BalanceBalance 220 ml 2000 ml 1640 ml Results Result Diagram: 09/25/18 0451 09/25/18 0451 Medications Medications Current Medications IV Flush (NS 3 ml) 3 ml PER PROTOCOL IV ; Start 09/22/18 at 09:30 Ondansetron HCl (Zofran Inj) 4 mg Q6H PRN IV NAUSEA/VOMITING Last administered on 09/25/18at 09:59; Admin Dose 4 MG; Start 09/22/18 at 09:30 Acetaminophen (Tylenol Tab) 650 mg Q6H PRN PO .PAIN 1-3 OR TEMP Last administered on 09/22/18at 13:57; Admin Dose 650 MG; Start 09/22/18 at 09:30 Acetaminophen/ Hydrocodone Bitart ([place] (5/325)) 1 tab Q6H PRN PO .PAIN 4-6 Last administered on 09/23/18at 12:05; Admin Dose 1 TAB; Start 09/22/18 at 09:30 Pantoprazole (Protonix Iv) 40 mg DAILY@06 IV Last administered on 09/25/18 05:49; Admin Dose 40 MG; Start 09/23/18 at 06:00 Methylprednisolone Sodium Succinate (Solu-Medrol) 10 mg DAILY IV Last administered on 09/25/18 08:38; Admin Dose 10 MG; Start 09/22/18 at 10:00 Piperacillin Sod/ Tazobactam Sod 100 ml @ 200 mls/hr Q6 IVPB Last administered on 09/25/18 05:48; Admin Dose 200 MLS/HR; Start 09/22/18 at 12:00 Sucralfate (Carafate Susp) 1 gm QID PO Last administered on 09/25/18 08:38; Admin Dose 1 GM; Start 3/29/19 at 17:00 Hyoscyamine (Levsin) 0.125 mg Q6 PO Last administered on 09/25/18at 05:49; Admin Dose 0.125 MG; Start 09/23/18 at 18:00 Hydromorphone HCl (Dilaudid) 0.5 mg Q4H PRN IV SEVERE PAIN LEVEL 7-10 Last administered on 09/25/18at 09:59; Admin Dose 0.5 MG; Start 09/24/18 at 13:00 Sodium Chloride 1,000 ml @ 50 mls/hr Q20H IV ; Start 09/25/18 at 10:30 VTE Prophylaxis Risk score (from N[facility])>0 risk: 2 SCD applied (from [facility] [place]): Yes Pharmacological prophylaxis: other Lines/Catheters IV Catheter Type: Henao in Place: No Assessment/Plan Hospital Course Subjective Patient states abdominal pain has significantly improved since yesterday still some discomfort however significant improvement Objective Physical exam General: Patient is laying in bed and answers questions appropriately Mentation: Patient is alert and oriented 4, Head: Normocephalic atraumatic Eyes: EOMI, pupils reactive to light Neck: Supple, nontender, midline Respiratory: Clear to auscultation bilaterally Cardiovascular: regular rate, no obvious murmurs Gastrointestinal: Very mild generalized tenderness to palpation, bowel sounds heard. Neurological: Moves all extremities spontaneously Skin: No new skin lesions Assessment and plan Colitis -Given immunocompromised status secondary to prednisone use, will need to rule out bacterial infection, will start IV zosyn given her immunocompromised status. -CT findings have multiple issues regarding the GI system, GI on board -Clears as tolerated will increase as tolerated. Abdominal pain -Secondary to above colitis -Patient states abdominal pain is significantly improved in the past few days -Epigastric in nature, lipase negative, continue Carafate, Levsin, PPI -Other GI issues are likely contributing to this as well. Sepsis, significantly improving -Secondary to above colitis -IV fluid -Broad-spectrum antibiotic -Blood cultures -Lactic acid noted Mesenteric free fluid and slightly nodular mesenteric fat stranding -Found on CT, cannot rule out neoplastic process -Oncology has been consulted however does not feel like this is a metastatic process recommends waiting until inflammation dies down or if GI sees mass on colonoscopy and recommend CT scan outpatient after inflammation dies down to see if there is any mass., GI also on board, pending recommendations Nodular liver -No history of cirrhosis however with lupus may have been affecting her liver this whole time without knowledge, GI on board Gallbladder wall thickening -Unchanged since previous CT done in 2017, unlikely cholecystitis however will defer to GI recommendations Free fluid in pelvis -Mild, likely secondary to everything that is going on in her GI system, monitor closely, IV antibiotic, GI recommendations appreciated Electrolyte derangement -Likely secondary to nausea and vomiting, replace as needed Nausea vomiting, resolved -Secondary to colitis above, treat as needed, GI recommendations appreciated Rheumatoid arthritis and lupus -Patient on chronic prednisone, as did not make her go into adrenal insufficienc y due to chronic prednisone use, will continue on Solu-Medrol for now, 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 Ramirez on a normal basis. Will need to follow-up afterwards for continued management History of splenic infarct status post splenectomy -Monitor Raynauds -With right finger amputation secondary to complications, stable, chronic, monitor Allergic reaction after morphine, localized to hand -Questionable issue versus one-time incident, will DC morphine and start Dilaudid Disposition -Treatment for colitis with IV antibiotic, planning EGD and colonoscopy per GI tomorrow PATO MEAD Sep 25, 2018 11:33
[2018-09-25] MEDS: SOD CHLORIDE 0.45% 1,000 ML IV SCH (12:12)
[2018-09-25] MEDS ORDERED: BISACODYL (EC) 5 MG TAB PO ONE ×2 (16:17→20:00)
--- NOTE | 2018-09-25 16:29 | PN ---
Date/Time of Note Date/Time of Note DATE: 09/25/18 TIME: 16:20 Assessment/Plan VTE Prophylaxis Risk score (from Nsg)>0 risk: 2 SCD applied (from Nsg): Yes Pharmacological prophylaxis: heparin Lines/Catheters IV Catheter Type (from Nrsg): Urinary Cath still in place: No Assessment/Plan Assessment/Plan Assessment: Upper abdominal pain Imaging consistent with colitis and noted stomach wall thickening Mesenteric fat stranding on CT Peripancreatic fluid on CT rule out pancreatitis - pancreatic enzymes normal N/v with hematemesis-resolved Questionable cirrhosis Fevers- unclear if 2/2 to lupus or infectious disease process Lupus Rheumatoid arthritis Raynaud's Leukocytosis- resolved (prednisone use) Significant bandemia- on Zosyn 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 Stool studies are pending Blood cultures -negative so far Monitor labs Clear liquid diet Patient seen in collaboration with Dr. Garner Subjective: Patient reports symptoms somewhat improved today. Reports overall her abdominal pain is improved.. Plan for EGD/colonoscopy on Wednesday, pt is agreeable to proceed. WIll start bowel prep and clear liquids. Discussed the plan with the patient. PHYSICAL EXAMINATION: GENERAL: Well developed, well nourished, alert & oriented x 3, in no acute distress SKIN: No lesions, no stigmata chronic liver disease, no evidence of bleeding diathesis LYMPHATIC: No palpable lymphadenopathy. HEAD: Normocephalic, atraumatic, no tenderness. EYES: Pupils equal reactive to light and accommodation, full extraocular movements, sclera clear, non-icteric, no discharge. EARS/NOSE AND THROAT: Ears normal, nose normal, oropharynx normal, oral membranes well hydrated without lesions. NECK: Supple, no masses, thyroid normal, JVP within normal limits, carotids normal without bruits. CHEST: Inspection within normal limits. CARDIOVASCULAR: Heart: Regular rate and rhythm, no murmurs, gallops or rubs. Peripheral pulses present within normal limits, no cyanosis, clubbing or edemas. No pulsatile abdominal mass RESPIRATORY: Lungs clear to auscultation and percussion, no wheezing, no rubs GASTROINTESTINAL AND LIVER: Abdomen: Soft, epigastric and left upper quadrant tenderness, non-distended, no hernias, no masses, no organomegaly, no ascites, no guarding, no rebound tenderness, normoactive bowel sounds. Rectal: Deferred. GENITOURINARY: Female genitalia within normal limits. EXTREMITIES: No cyanosis, clubbing or edema. Result Diagram: 09/25/18 0451 09/25/18 0451 Results 24hrs Laboratory Tests Test 09/25/18 04:51 White Blood Count 9.0 # Red Blood Count 3.36 L Hemoglobin 10.0 L Hematocrit 32.6 L Mean Corpuscular Volume 97.0 Mean Corpuscular Hemoglobin 29.8 Mean Corpuscular Hemoglobin Concent 30.7 L Red Cell Distribution Width Platelet Count 339 Mean Platelet Volume 10.5 H Immature Granulocytes % 0.400 Neutrophils % 61.2 Lymphocytes % 22.1 Monocytes % 13.4 H Eosinophils % 2.3 Basophils % 0.6 Nucleated Red Blood Cells % 0.6 H Immature Granulocytes # 0.040 H Neutrophils # 5.5 Lymphocytes # 2.0 Monocytes # 1.2 H Eosinophils # 0.2 Basophils # 0.1 Nucleated Red Blood Cells # 0.1 H Sodium Level 140 Potassium Level 3.9 Chloride Level 107 Carbon Dioxide Level 27 Anion Gap 6 Blood Urea Nitrogen 8 Creatinine 0.62 Est Glomerular Filtrat Rate mL/min > 60 Glucose Level 84 Calcium Level 8.6 Phosphorus Level 3.1 Magnesium Level 2.0 CC: JAY GARNER Qasim ; Exam/Review of Systems Exam Vitals Vital Signs Date Temp Pulse Resp B/P (MAP) Pulse Ox O2 O2 Flow FiO2 Time Delivery Rate 09/25/18 98.4 76 18 145/58 97 08:19 (87) 09/24/18 Room Air 20:00 Intake and Output 09/24/18 09/24/18 09/25/18 1515:00 23:00 07:00 IntakeIntake Total 220 ml 2000 ml 1640 ml BalanceBalance 220 ml 2000 ml 1640 ml Results Results 24hrs Laboratory Tests Test 09/25/18 04:51 White Blood Count 9.0 # Red Blood Count 3.36 L Hemoglobin 10.0 L Hematocrit 32.6 L Mean Corpuscular Volume 97.0 Mean Corpuscular Hemoglobin 29.8 Mean Corpuscular Hemoglobin Concent 30.7 L Red Cell Distribution Width Platelet Count 339 Mean Platelet Volume 10.5 H Immature Granulocytes % 0.400 Neutrophils % 61.2 Lymphocytes % 22.1 Monocytes % 13.4 H Eosinophils % 2.3 Basophils % 0.6 Nucleated Red Blood Cells % 0.6 H Immature Granulocytes # 0.040 H Neutrophils # 5.5 Lymphocytes # 2.0 Monocytes # 1.2 H Eosinophils # 0.2 Basophils # 0.1 Nucleated Red Blood Cells # 0.1 H Sodium Level 140 Potassium Level 3.9 Chloride Level 107 Carbon Dioxide Level 27 Anion Gap 6 Blood Urea Nitrogen 8 Creatinine 0.62 Est Glomerular Filtrat Rate mL/min > 60 Glucose Level 84 Calcium Level 8.6 Phosphorus Level 3.1 Magnesium Level 2.0 Medications Medication Current Medications IV Flush (NS 3 ml) 3 ml PER PROTOCOL IV ; Start 09/22/18 at 09:30 Ondansetron HCl (Zofran Inj) 4 mg Q6H PRN IV NAUSEA/VOMITING Last administered on 09/25/18 09:59; Admin Dose 4 MG; Start 09/22/18 at 09:30 Acetaminophen (Tylenol Tab) 650 mg Q6H PRN PO .PAIN 1-3 OR TEMP Last administered on 09/22/18 13:57; Admin Dose 650 MG; Start 09/22/18 at 09:30 Acetaminophen/ Hydrocodone Bitart ([place] (5/325)) 1 tab Q6H PRN PO .PAIN 4-6 Last administered on 09/23/18 12:05; Admin Dose 1 TAB; Start 09/22/18 at 09:30 Pantoprazole (Protonix Iv) 40 mg DAILY@06 IV Last administered on 09/25/18 05:49; Admin Dose 40 MG; Start 09/23/18 at 06:00 Methylprednisolone Sodium Succinate (Solu-Medrol) 10 mg DAILY IV Last administered on 09/25/18 08:38; Admin Dose 10 MG; Start 09/22/18 at 10:00 Piperacillin Sod/ Tazobactam Sod 100 ml @ 200 mls/hr Q6 IVPB Last administered on 09/25/18 12:12; Admin Dose 200 MLS/HR; Start 09/22/18 at 12:00 Sucralfate (Carafate Susp) 1 gm QID PO Last administered on 3/31/19at 12:12; Admin Dose 1 GM; Start 09/23/18 at 17:00 Hyoscyamine (Levsin) 0.125 mg Q6 PO Last administered on 09/25/18 12:12; Admin Dose 0.125 MG; Start 09/23/18 at 18:00 Hydromorphone HCl (Dilaudid) 0.5 mg Q4H PRN IV SEVERE PAIN LEVEL 7-10 Last administered on 09/25/18at 15:35; Admin Dose 0.5 MG; Start 09/24/18 at 13:00 Sodium Chloride 1,000 ml @ 50 mls/hr Q20H IV Last administered on 09/25/18 12:12; Admin Dose 50 MLS/HR; Start 09/25/18 at 10:30 KT IBANEZ NP Sep 25, 2018 16:29
[2018-09-25] MEDS ORDERED: MAGNESIUM CITRATE 300 ML BTL PO ONE (17:00)
[2018-09-25] MEDS ORDERED: POLYETHYLENE GLYCOL 3350 119 GM POWDER PO ONE ×2 (18:00→19:00)
[2018-09-25 20:00] VITALS: BP 138/70; PULSE 55; RESP 18
[2018-09-25] MEDS: HYDROCODONE/APAP (5/325) TAB PO PRN (22:50)
[2018-09-26] VITALS (7 sets, daily range): BP systolic 126–145; BP diastolic 69–78; PULSE 47–64; RESP 15–18
[2018-09-26] MEDS: PIPER-TAZO 3.375 GM IV (PMX) 100 ML IVPB SCH ×5 (00:56→23:54)
[2018-09-26] MEDS: HYDROmorphONE 0.5 MG/0.5 ML SYG IV PRN ×4 (02:34→23:56)
[2018-09-26] MEDS: PANTOPRAZOLE 40 MG INJ IV SCH (06:08)
[2018-09-26] MEDS: HYOSCYAMINE 0.125 MG TAB PO SCH ×5 (06:08→23:54)
[2018-09-26] MEDS: SOD CHLORIDE 0.45% 1,000 ML IV SCH ×2 (06:30→09:21)
[2018-09-26] MEDS: SUCRALFATE (100 MG/ML) 10ML CUP PO SCH ×4 (09:00→20:40)
[2018-09-26] MEDS: METHYLPREDNISOLONE 40 MG INJ IV SCH (09:20)
--- NOTE | 2018-09-26 09:54 | CONS ---
Assessment/Plan Assessment/Plan Hospital Course (Demo Recall) 33 yo F with PMH for lupus, rheumatoid arthritis, raynauds on chronic prednisone of 10 mg daily with sudden severe abdominal pain. CT scan showed Mild diffuse mesenteric free fluid and slightly nodular mesenteric fat stranding. A neoplastic process is not excluded on this examination. Thus we were consulted to see if there was an oncological process or workup. # Free fluid with nodular mesenteric fat stranding with abdominal pain -abdominal pain has improved -agree with EGD and Colonoscopy today -Unlikely related to a neoplasm as patient has autoimmune disease and acute abdominal pain. Inflammation can represent this finding of nodular mesenteric fat. -No other lymph nodes or other areas where there is a noticeable mass. -Autoimmune and inflammatory process can have nodular mesenteric fat stranding. -as stated before we will repeat the CT scan as an out patient once her sx reso lve to reevaluate the area of concern -Reassured patient that she unlikely has neoplasm. -GI on board and if during their workup they see diffuse LND or mass then we would pursue oncological workup. Patient seems to be stabilizing at this time. Consultation Date/Type/Reason Admit Date/Time Sep 22, 2018 at 09:01 Initial Consult Date 09/22/18 Type of Consult hematology Reason for Consultation concern for underlying malignancy Requesting Provider: PATO MEAD Date/Time of Note DATE: 09/26/18 TIME: 09:48 24 HR Interval Summary Free Text/Dictation no acute overnight events. abdominal pain has improved Exam/Review of Systems Exam Vitals Vital Signs Date Temp Pulse Resp B/P (MAP) Pulse Ox O2 O2 Flow FiO2 Time Delivery Rate 09/26/18 98.0 53 18 140/69 98 08:04 (92) 09/24/18 Room Air 20:00 Intake and Output 09/25/18 09/25/18 09/26/18 1515:00 23:00 07:00 IntakeIntake Total 1400 ml 300 ml 580 ml BalanceBalance 1400 ml 300 ml 580 ml Constitutional: alert, oriented, frail Psych: no complaints Head: normocephalic Eyes: nl conjunctiva ENMT: nl external ears & nose Neck: supple Respiratory: clear to auscultation Cardiovascular: regular rate and rhythm Gastrointestinal: soft Musculoskeletal: nl extremities to inspection Results Result Diagram: 09/26/1852609/26/18526 Results 24hrs Laboratory Tests Test 09/26/18 05:27 White Blood Count 9.0 Red Blood Count 3.53 L Hemoglobin 10.5 L Hematocrit 33.6 L Mean Corpuscular Volume 95.2 Mean Corpuscular Hemoglobin 29.7 Mean Corpuscular Hemoglobin Concent 31.3 L Red Cell Distribution Width Platelet Count 362 Mean Platelet Volume 10.5 H Immature Granulocytes % 0.400 Neutrophils % 54.3 Lymphocytes % 26.1 Monocytes % 13.3 H Eosinophils % 5.3 Basophils % 0.6 Nucleated Red Blood Cells % 0.6 H Immature Granulocytes # 0.040 H Neutrophils # 4.9 Lymphocytes # 2.4 Monocytes # 1.2 H Eosinophils # 0.5 Basophils # 0.1 Nucleated Red Blood Cells # 0.1 H Sodium Level 140 Potassium Level 3.5 Chloride Level 108 Carbon Dioxide Level 25 Anion Gap 7 Blood Urea Nitrogen 8 Creatinine 0.57 Est Glomerular Filtrat Rate mL/min > 60 Glucose Level 75 Calcium Level 8.5 Phosphorus Level 3.9 Magnesium Level 2.1 Medications Medication Current Medications IV Flush (NS 3 ml) 3 ml PER PROTOCOL IV ; Start 09/22/18 at 09:30 Ondansetron HCl (Zofran Inj) 4 mg Q6H PRN IV NAUSEA/VOMITING Last administered on 09/25/18 09:59; Admin Dose 4 MG; Start 09/22/18 at 09:30 Acetaminophen (Tylenol Tab) 650 mg Q6H PRN PO .PAIN 1-3 OR TEMP Last administered on 09/22/18 13:57; Admin Dose 650 MG; Start 09/22/18 at 09:30 Acetaminophen/ Hydrocodone Bitart ([place] (5/325)) 1 tab Q6H PRN PO .PAIN 4-6 Last administered on 09/25/18at 22:50; Admin Dose 1 TAB; Start 09/22/18 at 09:30 Pantoprazole (Protonix Iv) 40 mg DAILY@06 IV Last administered on 09/26/18 06:08; Admin Dose 40 MG; Start 09/23/18 at 06:00 Methylprednisolone Sodium Succinate (Solu-Medrol) 10 mg DAILY IV Last administered on 09/26/18 09:20; Admin Dose 10 MG; Start 09/22/18 at 10:00 Piperacillin Sod/ Tazobactam Sod 100 ml @ 200 mls/hr Q6 IVPB Last administered on 09/26/18 06:08; Admin Dose 200 MLS/HR; Start 09/22/18 at 12:00 Sucralfate (Carafate Susp) 1 gm QID PO Last administered on 09/25/18at 20:47; Admin Dose 1 GM; Start 09/23/18 at 17:00 Hyoscyamine (Levsin) 0.125 mg Q6 PO Last administered on 09/26/18at 06:08; Admin Dose 0.125 MG; Start 09/23/18 at 18:00 Hydromorphone HCl (Dilaudid) 0.5 mg Q4H PRN IV SEVERE PAIN LEVEL 7-10 Last administered on 09/26/18 09:19; Admin Dose 0.5 MG; Start 09/24/18 at 13:00 Sodium Chloride 1,000 ml @ 50 mls/hr Q20H IV Last administered on 09/26/18 09:21; Admin Dose 50 MLS/HR; Start 09/25/18 at 10:30 MOOKIE ISLAS M.D. Sep 26, 2018 09:54
--- NOTE | 2018-09-26 15:24 | PREAC ---
Date/Time of Note Date/Time of Note DATE: 09/26/18 TIME: 15:22 Anesthesia Eval and Record Evaluation Time Pre-Procedure Interview DATE: 09/26/18 TIME: 15:22 Age 33 Sex female NPO: 8 hrs Preoperative diagnosis History of Colitis and stomach wall thickening Planned procedure EGD & Colonoscopy Past Medical History Past Medical History: Includes Cardio: HTN Endo: Other (history of SLE and Raynauld's disease) Pulm: Asthma Musculoskeletal: Rheumatoid arthritis Heme: Anemia Surgery & Anesthesia Issues No known issue Meds Anticoagulation: No Beta Rose Marie within 24 hr: No Reason Beta Rose Marie not given: Pt. not on B-Rose Marie Active Scripts Ondansetron Hcl* (Zofran*) 8 Mg Tablet, 8 MG PO Q6H PRN for NAUSEA AND OR VOMITING, #20 TAB Prov:JENNY RAWLS MD 09/22/18 Famotidine* (Pepcid*) 20 Mg Tablet, 20 MG PO BID for 14 Days, TAB Prov:JENNY RAWLS MD 09/22/18 Albuterol Sulfate* (Albuterol Sulfate* Neb) 0.083%-3 Ml Neb, 5 MG NEB Q4 PRN for SHORTNESS OF BREATH, #30 EA Prov:MICKY CHAN MD 08/17/18 Reported Medications Ergocalciferol (Vitamin D2) (VITAMIN D2) 50,000 Unit Capsule, 14083 UNIT PO QMONDAY 09/22/18 Ferrous Sulfate* (Ferrous Sulfate*) 325 Mg Tabec, 325 MG PO BID TK 1 T PO BID 09/22/18 Aspirin Ec (Aspir 81) 81 Mg Tablet.dr, 81 MG PO DAILY, #30 TAB 09/22/18 Pantoprazole* (Pantoprazole*) 40 Mg Tablet.dr, 40 MG PO AC BREAKFAST, TAB 01/07/17 Azathioprine* (Imuran*) 50 Mg Tab, 50 MG PO BID, TAB 01/07/17 Hydroxychloroquine Sulfate* (Hydroxychloroquine Sulfate*) 200 Mg Tablet, 200 MG PO BID, TAB 01/07/17 Amlodipine Besylate* (Norvasc*) 5 Mg Tablet, 2.5 MG PO BID, TAB 01/07/17 Discontinued Reported Medications Prednisone* (Prednisone*) 10 Mg Tab, 10 MG PO BID, TAB 01/07/17 Discontinued Scripts Azithromycin* (Zithromax*) 250 Mg Tablet, 250 MG PO .KELSIE DIRECTED, #6 TAB TAKE 500 MG (2 TABS) THE FIRST DAY THEN 250 MG (1 TAB) DAYS 2-5 Prov:MICKY CHAN MD 08/17/18 Prednisone* (Prednisone*) 20 Mg Tab, 40 MG PO DAILY for 4 Days, TAB Prov:MICKY CHAN MD 08/17/18 Acetaminophen* (Tylenol*) 325 Mg Tablet, 2 TAB PO Q8 PRN for PAIN AND OR ELEVATED TEMP, #20 TAB Prov:ANT MANRIQUEZ PA-C 06/11/18 Ibuprofen* (Motrin*) 800 Mg Tab, 800 MG PO Q6, #30 TAB Prov:ANT MANRIQUEZ PA-C 06/11/18 Methylprednisolone* (Medrol* DOSE PACK) 4 Mg/Dose-Pack Tab.ds.pk, 4 MG PO . DIRECTED, #1 PACKET Prov:ANT MANRIQUEZ PA-C 06/11/18 Oseltamivir Phosphate* (Tamiflu*) 75 Mg Capsule, 75 MG PO BID for 5 Days, CAP Prov:ANT MANRIQUEZ PA-C 06/11/18 Naproxen* (Naprosyn*) 500 Mg Tablet, 500 MG PO BID PRN for PAIN AND/OR INFLAMMATION, #30 TAB Prov:MEKHI LOVE PA-C 04/19/18 Ciprofloxacin Hcl* (Ciprofloxacin Hcl*) 500 Mg Tablet, 500 MG PO DAILY for 5 Days, #5 TAB Prov:MEKHI LOVE PA-C 04/03/18 Bismuth Subsalicylate* (Bismuth Subsalicylate*) 262 Mg/15 Ml Oral.susp, 15 ML PO Q6 PRN for diarr, #1 BOTTLE Prov:MEKHI LOVE PA-C 04/03/18 Ondansetron (Ondansetron Odt) 4 Mg Tab.rapdis, 4 MG PO Q6H PRN for NAUSEA AND/OR VOMITING, #10 TAB Prov:MEKHI LOVE PA-C 04/03/18 Ondansetron (Ondansetron Odt) 8 Mg Tab.rapdis, 8 MG PO Q8 PRN for NAUSEA AND/OR VOMITING, #30 TAB Prov:ZARA GUPTAC 04/01/18 Acetaminophen* (Acetaminophen*) 650 Mg Tablet, 650 MG PO Q6H PRN for PAIN AND OR ELEVATED TEMP, #30 TAB Prov:ZARA GUPTA-C 04/01/18 Diphenhydramine Hcl* (Benadryl*) 25 Mg Cap, 25-50 MG PO Q6 PRN for ITCHING/RASH, #30 TAB Prov:ZARA GUPTA-C 02/01/18 Sulfamethoxazole/Trimethoprim* (Bactrim Ds* Tablet) 1 Each Tablet, 1 TAB PO BID, #14 TAB Prov:ZARA GUPTAC 02/01/18 Cephalexin* (Keflex*) 500 Mg Capsule, 500 MG PO QID for 7 Days, CAP Prov:ZARA GUPTAC 02/01/18 Cephalexin* (Keflex*) 500 Mg Capsule, 500 MG PO QID for 7 Days, CAP Prov:MINA BLACK PA-C 02/10/17 Sulfamethoxazole/Trimethoprim* (Bactrim Ds* Tablet) 1 Each Tablet, 1 TAB PO BID for 10 Days, TAB Prov:MINA BLACK PA-C 02/10/17 Prednisone* (Prednisone*) 20 Mg Tab, 40 MG PO DAILY for 14 Days, #28 TAB Prov:PATO MEAD 01/14/17 Oxycodone HCl/Acetaminophen (Percocet 10-325 mg Tablet) 1 Each Tablet, 1 EACH PO Q8 PRN for PAIN for 7 Days, #21 TAB Prov:PATO MEAD 01/11/17 Current Medications IV Flush (NS 3 ml) 3 ml PER PROTOCOL IV ; Start 09/22/18 at 09:30 Ondansetron HCl (Zofran Inj) 4 mg Q6H PRN IV NAUSEA/VOMITING Last administered on 09/25/18at 09:59; Admin Dose 4 MG; Start 09/22/18 at 09:30 Acetaminophen (Tylenol Tab) 650 mg Q6H PRN PO .PAIN 1-3 OR TEMP Last administered on 09/22/18at 13:57; Admin Dose 650 MG; Start 09/22/18 at 09:30 Acetaminophen/ Hydrocodone Bitart ([place] (5/325)) 1 tab Q6H PRN PO .PAIN 4-6 Last administered on 09/25/18at 22:50; Admin Dose 1 TAB; Start 09/22/18 at 09:30 Pantoprazole (Protonix Iv) 40 mg DAILY@06 IV Last administered on 09/26/18 06:08; Admin Dose 40 MG; Start 09/23/18 at 06:00 Methylprednisolone Sodium Succinate (Solu-Medrol) 10 mg DAILY IV Last administered on 09/26/18 09:20; Admin Dose 10 MG; Start 09/22/18 at 10:00 Piperacillin Sod/ Tazobactam Sod 100 ml @ 200 mls/hr Q6 IVPB Last administered on 09/26/18at 12:33; Admin Dose 200 MLS/HR; Start 09/22/18 at 12:00 Sucralfate (Carafate Susp) 1 gm QID PO Last administered on 09/25/18at 20:47; Admin Dose 1 GM; Start 09/23/18 at 17:00 Hyoscyamine (Levsin) 0.125 mg Q6 PO Last administered on 09/26/18 06:08; Admin Dose 0.125 MG; Start 09/23/18 at 18:00 Hydromorphone HCl (Dilaudid) 0.5 mg Q4H PRN IV SEVERE PAIN LEVEL 7-10 Last administered on 09/26/18 09:19; Admin Dose 0.5 MG; Start 09/24/18 at 13:00 Sodium Chloride 1,000 ml @ 50 mls/hr Q20H IV Last administered on 09/26/18 09:21; Admin Dose 50 MLS/HR; Start 09/25/18 at 10:30 Meds reviewed: Yes Allergies Coded Allergies: vancomycin (Verified Allergy, Unknown, 09/22/18) Allergies Reviewed: Yes Labs/Studies Labs Reviewed: Reviewed by anesthesiologist Result Diagram: 09/26/1852609/26/18526 Laboratory Tests 09/26/18 05:27 test: Negative Studies: ECG (n/a), CXR (n/a) Pre-procedure Exam Last vitals Vital Signs Date Temp Pulse Resp B/P (MAP) Pulse Ox O2 O2 Flow FiO2 Time Delivery Rate 09/26/18 99.0 47 16 131/75 96 Room Air 14:29 (93) Airway: Adequate mouth opening, Adequate thyromental dist Mallampati: Mallampati II Teeth: Normal Lung: Normal Heart: Normal ASA Physical Status ASA physical status: 3 Emergency: None Planned Anesthetic General/MAC: MAC Planned Pain Management Parenteral pain med Pre-operative Attestations Prior to commencing anesthesia and surgery, the patient was re-evaluated, there was verification of: *The patient's identity *The results of appropriate recent lab work and preoperative vital signs *The above evaluation not changing prior to induction *Anesthetic plan, risk benefits, alternative and complications discussed with patient/family; questions answered; patient/family understands, accepts and wishes to proceed. DANI SALDAÑA MD Sep 26, 2018 15:24
[2018-09-26] MEDS ORDERED: HYDROmorphONE 1 MG/5 ML IV SYRINGE IV PRN ×2 (15:30)
[2018-09-26] MEDS ORDERED: METOCLOPRAMIDE 10 MG INJ IV PRN (15:30)
[2018-09-26] MEDS ORDERED: ONDANSETRON 4 MG INJ IV PRN (15:30)
[2018-09-26] MEDS ORDERED: OXYCODONE/ACETAMINOPHEN (5/325) TAB PO PRN (15:30)
[2018-09-26] MEDS ORDERED: LABETALOL HCL 20MG INJ IV PRN (15:30)
[2018-09-26] MEDS ORDERED: FENTAnyl 50 MCG/ML VIAL IV PRN ×2 (15:30)
[2018-09-26] MEDS ORDERED: hydrALAzine 20 MG INJ IV PRN (15:30)
[2018-09-26] MEDS ORDERED: EPHEDrine SULFATE 50 MG/5 ML SYG IV PRN (15:30)
[2018-09-26] MEDS ORDERED: PROPOFOL 40 ML ONE (15:58)
[2018-09-26] MEDS ORDERED: PROPOFOL 20 ML ONE (16:24)
--- NOTE | 2018-09-26 16:25 | PAC ---
Date/Time of Note Date/Time of Note DATE: 09/26/18 TIME: 16:24 Post-Anesthesia Notes Post-Anesthesia Note Last documented vital signs Vital Signs Date Temp Pulse Resp B/P (MAP) Pulse Ox O2 O2 Flow FiO2 Time Delivery Rate 09/26/18 99.0 47 16 131/75 96 Room Air 16:29 (93) Activity: WNL Respiratory function: WNL Cardiovascular function: WNL Mental status: Baseline Pain reasonably controlled: Yes Hydration appropriate: Yes Nausea/Vomiting absent: Yes DANI SALDAÑA MD Sep 26, 2018 16:25
--- NOTE | 2018-09-26 16:57 | PN ---
Date/Time of Note Date/Time of Note DATE: 09/26/18 TIME: 16:52 Assessment/Plan VTE Prophylaxis Risk score (from [facility])>0 risk: 3 SCD applied (from [facility]): Yes Pharmacological prophylaxis: NA/contraindicated Pharm contraindication: surgical contra Lines/Catheters IV Catheter Type (from [facility]): Peripheral IV Urinary Cath still in place: No Assessment/Plan Assessment/Plan 1. Acute abdominal pain secondary to colitis - GI on board and appreciate recommendations. Plans for EGD/ colonoscopy today - CT results noted - Continue IV antibiotics given immunocompromised status - carafate, PPI and Levsin on board 2. Sepsis secondary to colitis- improving - continue antibiotics and IV fluids - remains afebrile with nl WBC 3. Mesenteric free fluid and slightly nodular mesenteric fat stranding - seen on imaging studies - evaluated by oncology who is not concerned with this being a metastatic process. Will await colonoscopy results to determine if any masses present. Repeat CT scan once inflammation resolves 4. Nausea with vomiting, resolved - Secondary to colitis above 5. Rheumatoid arthritis and lupus - Patient on chronic prednisone for control of sx. will continue - follow regularly with Relationship Executive as outpt 6. History of splenic infarct status post splenectomy - Monitor 7. Raynauds - With right finger amputation secondary to complications, stable, chronic, monitor 8. Disposition - Continue current treatment. Plans for EGD and colonoscopy today Result Diagram: 09/26/1852609/26/1827 Results 24hrs Laboratory Tests Test 09/26/18 05:27 White Blood Count 9.0 Red Blood Count 3.53 L Hemoglobin 10.5 L Hematocrit 33.6 L Mean Corpuscular Volume 95.2 Mean Corpuscular Hemoglobin 29.7 Mean Corpuscular Hemoglobin Concent 31.3 L Red Cell Distribution Width Platelet Count 362 Mean Platelet Volume 10.5 H Immature Granulocytes % 0.400 Neutrophils % 54.3 Lymphocytes % 26.1 Monocytes % 13.3 H Eosinophils % 5.3 Basophils % 0.6 Nucleated Red Blood Cells % 0.6 H Immature Granulocytes # 0.040 H Neutrophils # 4.9 Lymphocytes # 2.4 Monocytes # 1.2 H Eosinophils # 0.5 Basophils # 0.1 Nucleated Red Blood Cells # 0.1 H Sodium Level 140 Potassium Level 3.5 Chloride Level 108 Carbon Dioxide Level 25 Anion Gap 7 Blood Urea Nitrogen 8 Creatinine 0.57 Est Glomerular Filtrat Rate mL/min > 60 Glucose Level 75 Calcium Level 8.5 Phosphorus Level 3.9 Magnesium Level 2.1 Subjective 24 Hr Interval Summary Free Text/Dictation Patient states shes feeling a little better. Plans for EGD/ colonoscopy today. Exam/Review of Systems Exam Vitals Vital Signs Date Temp Pulse Resp B/P (MAP) Pulse Ox O2 O2 Flow FiO2 Time Delivery Rate 09/26/18 99.0 47 16 131/75 96 Room Air 14:29 (93) Intake and Output 09/25/18 09/25/18 09/26/18 1515:00 23:00 07:00 IntakeIntake Total 1400 ml 300 ml 580 ml BalanceBalance 1400 ml 300 ml 580 ml Exam General: Patient is laying in bed and answers questions appropriately Neck: Supple, nontender, midline Respiratory: Clear to auscultation bilaterally. no wheezing Cardiovascular: regular rate and rhythm, no obvious murmurs Gastrointestinal: soft, mild discomfort to palpation, no rebound or guarding, nondistended, bowel sounds heard. Neurological: Moves all extremities spontaneously Skin: No new skin lesions Results Results 24hrs Laboratory Tests Test 09/26/18 05:27 White Blood Count 9.0 Red Blood Count 3.53 L Hemoglobin 10.5 L Hematocrit 33.6 L Mean Corpuscular Volume 95.2 Mean Corpuscular Hemoglobin 29.7 Mean Corpuscular Hemoglobin Concent 31.3 L Red Cell Distribution Width Platelet Count 362 Mean Platelet Volume 10.5 H Immature Granulocytes % 0.400 Neutrophils % 54.3 Lymphocytes % 26.1 Monocytes % 13.3 H Eosinophils % 5.3 Basophils % 0.6 Nucleated Red Blood Cells % 0.6 H Immature Granulocytes # 0.040 H Neutrophils # 4.9 Lymphocytes # 2.4 Monocytes # 1.2 H Eosinophils # 0.5 Basophils # 0.1 Nucleated Red Blood Cells # 0.1 H Sodium Level 140 Potassium Level 3.5 Chloride Level 108 Carbon Dioxide Level 25 Anion Gap 7 Blood Urea Nitrogen 8 Creatinine 0.57 Est Glomerular Filtrat Rate mL/min > 60 Glucose Level 75 Calcium Level 8.5 Phosphorus Level 3.9 Magnesium Level 2.1 Medications Medication Current Medications IV Flush (NS 3 ml) 3 ml PER PROTOCOL IV ; Start 09/22/18 at 09:30 Ondansetron HCl (Zofran Inj) 4 mg Q6H PRN IV NAUSEA/VOMITING Last administered on 09/25/18 09:59; Admin Dose 4 MG; Start 09/22/18 at 09:30 Acetaminophen (Tylenol Tab) 650 mg Q6H PRN PO .PAIN 1-3 OR TEMP Last a dministered on 09/22/18 13:57; Admin Dose 650 MG; Start 09/22/18 at 09:30 Acetaminophen/ Hydrocodone Bitart ([place] (5/325)) 1 tab Q6H PRN PO .PAIN 4-6 Last administered on 09/25/18 22:50; Admin Dose 1 TAB; Start 09/22/18 at 09:30 Pantoprazole (Protonix Iv) 40 mg DAILY@06 IV Last administered on 09/26/18 06:08; Admin Dose 40 MG; Start 09/23/18 at 06:00 Methylprednisolone Sodium Succinate (Solu-Medrol) 10 mg DAILY IV Last administered on 09/26/18 09:20; Admin Dose 10 MG; Start 09/22/18 at 10:00 Piperacillin Sod/ Tazobactam Sod 100 ml @ 200 mls/hr Q6 IVPB Last administered on 09/26/18 12:33; Admin Dose 200 MLS/HR; Start 09/22/18 at 12:00 Sucralfate (Carafate Susp) 1 gm QID PO Last administered on 09/25/18 20:47; Admin Dose 1 GM; Start 09/23/18 at 17:00 Hyoscyamine (Levsin) 0.125 mg Q6 PO Last administered on 09/26/18 06:08; Admin Dose 0.125 MG; Start 09/23/18 at 18:00 Hydromorphone HCl (Dilaudid) 0.5 mg Q4H PRN IV SEVERE PAIN LEVEL 7-10 Last administered on 09/26/18 09:19; Admin Dose 0.5 MG; Start 09/24/18 at 13:00 Sodium Chloride 1,000 ml @ 50 mls/hr Q20H IV Last administered on 09/26/18 09:21; Admin Dose 50 MLS/HR; Start 09/25/18 at 10:30 Hydromorphone HCl (Dilaudid) 0.2 mg PACU PRN IV MILD PAIN 1-3; Start 09/26/18 at 15:30; Stop 09/26/18 at 22:00 Hydromorphone HCl (Dilaudid) 0.4 mg PACU PRN IV MOD PAIN 4-6; Start 09/26/18 at 15:30; Stop 09/26/18 at 22:00 Fentanyl (Sublimaze) 25 mcg PACU ORDER PRN IV MILD PAIN 1-3; Start 09/26/18 at 15:30; Stop 09/26/18 at 22:00 Fentanyl (Sublimaze) 50 mcg PACU ORDER PRN IV MOD PAIN 4-6; Start 09/26/18 at 15:30; Stop 09/26/18 at 22:00 Oxycodone/ Acetaminophen (Percocet (5/ 325)) 1 tab PACU ORDER PRN PO .PAIN 1-5; Start 09/26/18 at 15:30; Stop 09/26/18 at 22:00 Ondansetron HCl (Zofran Inj) 4 mg PACU ORDER PRN IV NAUSEA/VOMITING; Start 09/26/18 at 15:30; Stop 09/26/18 at 22:00 Metoclopramide HCl (Reglan) 10 mg PACU ORDER PRN IV NAUSEA/VOMITING; Start 09/26/18 at 15:30; Stop 09/26/18 at 22:00 Labetalol HCl (Labetalol) 5 mg PACU ORDER PRN IV HIGH BLOOD PRESSURE; Start 09/26/18 at 15:30; Stop 09/26/18 at 22:00 Hydralazine HCl (Apresoline) 5 mg PACU ORDER PRN IV HIGH BLOOD PRESSURE; Start 09/26/18 at 15:30; Stop 09/26/18 at 22:00 Ephedrine Sulfate 5 mg PACU ORDER PRN IV BLOOD PRESSURE SUPPORT; Start 09/26/18 at 15:30; Stop 09/26/18 at 22:00 GENESIS GANDARA MD Sep 26, 2018 16:57
[2018-09-26] MEDS: HYDROCODONE/APAP (5/325) TAB PO PRN (21:13)
[2018-09-27] MEDS: ONDANSETRON 4 MG INJ IV PRN ×2 (00:04→16:00)
[2018-09-27 02:00] VITALS: BP 117/72; PULSE 62; RESP 18
[2018-09-27] MEDS: PANTOPRAZOLE 40 MG INJ IV SCH ×2 (05:22→17:23)
[2018-09-27] MEDS: PIPER-TAZO 3.375 GM IV (PMX) 100 ML IVPB SCH ×4 (05:22→23:20)
[2018-09-27] MEDS: HYDROmorphONE 0.5 MG/0.5 ML SYG IV PRN ×4 (05:25→21:30)
[2018-09-27] MEDS ORDERED: HYOSCYAMINE 0.125 MG SUBL TAB PO SCH ×4 (05:37→06:00)
[2018-09-27] MEDS ORDERED: HYOSCYAMINE 0.125 MG SUBL TAB SL SCH (05:41)
[2018-09-27] MEDS: HYOSCYAMINE 0.125 MG SUBL TAB PO SCH ×4 (06:20→23:20)
[2018-09-27 08:00] VITALS: BP 127/78; PULSE 60; RESP 17
[2018-09-27] MEDS: SUCRALFATE (100 MG/ML) 10ML CUP PO SCH ×4 (08:26→21:30)
[2018-09-27] MEDS: METHYLPREDNISOLONE 40 MG INJ IV SCH (08:26)
--- NOTE | 2018-09-27 12:16 | PN ---
Date/Time of Note Date/Time of Note DATE: 09/27/18 TIME: 11:56 Assessment/Plan VTE Prophylaxis Risk score (from [facility])>0 risk: 2 SCD applied (from [facility]): Yes Pharmacological prophylaxis: other (scds) Lines/Catheters IV Catheter Type (from Nrsg): Peripheral IV Urinary Cath still in place: No Assessment/Plan Hospital Course Assessment: Upper abdominal pain-stomach wall thickening noted on imaging 09/26/18 EGD Grade 2/4 esophageal varices. No intervention Severe gastritis rule out H. pylori Otherwise normal EGD Gastric biopsy shows chronic gastritis, no H.pylori (control positive)no evidence of malignancy Imaging consistent with colitis 09/26/18 colonoscopy Colitis is more significant in the area of the rectum, biopsies obtained Moderate-sized internal hemorrhoids Otherwise normal colonoscopy Biopsy of right colon, left colon, rectal biopsy all showed normal colon mucosa no evidence of colitis or malignancy Mesenteric fat stranding on CT Peripancreatic fluid on CT rule out pancreatitis - pancreatic enzymes normal N/v with hematemesis-resolved Liver cirrhosis -Hepatitis serology and autoimmune panel is negative Fevers- Resolved Lupus Rheumatoid arthritis Raynaud's Leukocytosis- resolved (prednisone use) Significant bandemia- on Zosyn History of splenectomy secondary to lupus flare about 1 year ago Plan: Pt may require liver bx in the future- also in the ddx lupus hepatitis leading to cirrhosis? Pt to f/u with GI/Hepatology after discharge- she will need f/u EGD 3-6 months Stool for H.pylori positive, however bx shows to be negative with a positive control Patient seen in collaboration with Dr. Coleman Subjective: All all improved since last week. Pt currently sitting up in chair tolerating diet well. Pt continues to c/o upper abd pain, she states her diarrhea has improved now noted to be soft. No c/o lower abd pain or the urger to go. I discussed results of EGD and colonoscopy including biopsy results PHYSICAL EXAMINATION: GENERAL: Alert & oriented x 3, in place, in no acute distress SKIN: No lesions HEAD: Normocephalic, atraumatic, no tenderness. EYES: Pupils equal reactive to light, no discharge. EARS/NOSE AND THROAT: Ears normal, nose normal, oropharynx normal. NECK: Supple, no masses. CHEST: Inspection within normal limits. CARDIOVASCULAR: Heart: Regular rate and rhythm RESPIRATORY: Lungs clear to auscultation GASTROINTESTINAL AND LIVER: Abdomen: Soft, epigastric tenderness, distended, no hernias, no masses, no organomegaly, no ascites, no guarding, no rebound tenderness, normoactive bowel sounds. Rectal: Deferred. GENITOURINARY: Female genitalia within normal limits. EXTREMITIES: No cyanosis, clubbing or edema. Result Diagram: 09/26/1852609/26/18526 Exam/Review of Systems Exam Vitals Vital Signs Date Temp Pulse Resp B/P (MAP) Pulse Ox O2 O2 Flow FiO2 Time Delivery Rate 09/27/18 98.0 60 17 127/78 93 Room Air 08:00 (94) Intake and Output 09/26/18 09/26/18 09/27/18 1515:00 23:00 07:00 IntakeIntake Total 300 ml 700 ml 1350 ml BalanceBalance 300 ml 700 ml 1350 ml Medications Medication Current Medications IV Flush (NS 3 ml) 3 ml PER PROTOCOL IV ; Start 09/22/18 at 09:30 Ondansetron HCl (Zofran Inj) 4 mg Q6H PRN IV NAUSEA/VOMITING Last administered on 09/27/18at 00:04; Admin Dose 4 MG; Start 09/22/18 at 09:30 Acetaminophen (Tylenol Tab) 650 mg Q6H PRN PO .PAIN 1-3 OR TEMP Last administered on 09/22/18at 13:57; Admin Dose 650 MG; Start 09/22/18 at 09:30 Acetaminophen/ Hydrocodone Bitart ([place] (5/325)) 1 tab Q6H PRN PO .PAIN 4-6 Last administered on 09/26/18at 21:13; Admin Dose 1 TAB; Start 09/22/18 at 09:30 Pantoprazole (Protonix Iv) 40 mg DAILY@06 IV Last administered on 09/27/18 05:22; Admin Dose 40 MG; Start 09/23/18 at 06:00 Methylprednisolone Sodium Succinate (Solu-Medrol) 10 mg DAILY IV Last administered on 09/27/18 08:26; Admin Dose 10 MG; Start 09/22/18 at 10:00 Piperacillin Sod/ Tazobactam Sod 100 ml @ 200 mls/hr Q6 IVPB Last administered on 09/27/18 05:22; Admin Dose 200 MLS/HR; Start 09/22/18 at 12:00 Sucralfate (Carafate Susp) 1 gm QID PO Last administered on 09/27/18at 08:26; Admin Dose 1 GM; Start 09/23/18 at 17:00 Hydromorphone HCl (Dilaudid) 0.5 mg Q4H PRN IV SEVERE PAIN LEVEL 7-10 Last administered on 09/27/18at 05:25; Admin Dose 0.5 MG; Start 09/24/18 at 13:00 Sodium Chloride 1,000 ml @ 50 mls/hr Q20H IV Last administered on 09/26/18at 09:21; Admin Dose 50 MLS/HR; Start 09/25/18 at 10:30 Hyoscyamine (Levsin (Sl)) 0.125 mg Q6 PO Last administered on 09/27/18at 06:20; Admin Dose 0.125 MG; Start 09/27/18 at 05:45 MONIQUE DE LA ROSA Sep 27, 2018 12:06
--- NOTE | 2018-09-27 13:06 | CONS ---
Assessment/Plan Assessment/Plan Hospital Course (Demo Recall) 33 yo F with PMH for lupus, rheumatoid arthritis, raynauds on chronic prednisone of 10 mg daily with sudden severe abdominal pain. CT scan showed Mild diffuse mesenteric free fluid and slightly nodular mesenteric fat stranding. A neoplastic process is not excluded on this examination. Thus we were consulted to see if there was an oncological process or workup. # Free fluid with nodular mesenteric fat stranding with abdominal pain -abdominal pain has improved - EGD and Colonoscopy were unremarkable for any underlying cancer -Unlikely related to a neoplasm as patient has autoimmune disease and acute abdominal pain. Inflammation can represent this finding of nodular mesenteric fat. -No other lymph nodes or other areas where there is a noticeable mass. -Autoimmune and inflammatory process can have nodular mesenteric fat stranding. -as stated before we will repeat the CT scan as an out patient once her sx resolve to reevaluate the area of concern -Reassured patient that she unlikely has neoplasm. -GI on board and if during their workup they see diffuse LND or mass then we would pursue oncological workup. Patient seems to be stabilizing at this time. Consultation Date/Type/Reason Admit Date/Time Sep 22, 2018 at 09:01 Initial Consult Date 09/22/18 Type of Consult hematology Reason for Consultation concern for underlying malignancy Requesting Provider: PATO MEAD Date/Time of Note DATE: 09/27/18 TIME: 13:04 24 HR Interval Summary Free Text/Dictation pt had EGD and colonoscopy done yesterday. EGD demonstrates gastritis, coloscopy demonstrates colitis in rectum Exam/Review of Systems Exam Vitals Vital Signs Date Temp Pulse Resp B/P (MAP) Pulse Ox O2 O2 Flow FiO2 Time Delivery Rate 09/27/18 98.0 60 17 127/78 93 Room Air 08:00 (94) Intake and Output 09/26/18 09/26/18 09/27/18 1515:00 23:00 07:00 IntakeIntake Total 300 ml 700 ml 1350 ml BalanceBalance 300 ml 700 ml 1350 ml Constitutional: alert, oriented Psych: no complaints Head: normocephalic Eyes: nl conjunctiva ENMT: nl external ears & nose Neck: supple Respiratory: clear to auscultation Cardiovascular: regular rate and rhythm Gastrointestinal: soft Musculoskeletal: nl extremities to inspection Results Result Diagram: 09/26/1852609/26/18526 Results 24hrs Laboratory Tests Test 09/27/18 10:36 Hepatitis C Antibody NEGATIVE Medications Medication Current Medications IV Flush (NS 3 ml) 3 ml PER PROTOCOL IV ; Start 09/22/18 at 09:30 Ondansetron HCl (Zofran Inj) 4 mg Q6H PRN IV NAUSEA/VOMITING Last administered on 09/27/18 00:04; Admin Dose 4 MG; Start 09/22/18 at 09:30 Acetaminophen (Tylenol Tab) 650 mg Q6H PRN PO .PAIN 1-3 OR TEMP Last administered on 09/22/18 13:57; Admin Dose 650 MG; Start 09/22/18 at 09:30 Acetaminophen/ Hydrocodone Bitart ([place] (5/325)) 1 tab Q6H PRN PO .PAIN 4-6 Last administered on 09/26/18 21:13; Admin Dose 1 TAB; Start 09/22/18 at 09:30 Methylprednisolone Sodium Succinate (Solu-Medrol) 10 mg DAILY IV Last administered on 09/27/18 08:26; Admin Dose 10 MG; Start 09/22/18 at 10:00 Piperacillin Sod/ Tazobactam Sod 100 ml @ 200 mls/hr Q6 IVPB Last administered on 09/27/18 11:57; Admin Dose 200 MLS/HR; Start 09/22/18 at 12:00 Sucralfate (Carafate Susp) 1 gm QID PO Last administered on 09/27/18 12:02; Admin Dose 1 GM; Start 09/23/18 at 17:00 Hydromorphone HCl (Dilaudid) 0.5 mg Q4H PRN IV SEVERE PAIN LEVEL 7-10 Last administered on 09/27/18 11:57; Admin Dose 0.5 MG; Start 09/24/18 at 13:00 Sodium Chloride 1,000 ml @ 50 mls/hr Q20H IV Last administered on 09/26/18 09:21; Admin Dose 50 MLS/HR; Start 09/25/18 at 10:30 Hyoscyamine (Levsin (Sl)) 0.125 mg Q6 PO Last administered on 09/27/18 12:02; Admin Dose 0.125 MG; Start 09/27/18 at 05:45 Pantoprazole (Protonix Iv) 40 mg BID@0600,1800 IV ; Start 09/27/18 at 18:00 MOOKIE ISLAS M.D. Sep 27, 2018 13:06
[2018-09-27 14:20] VITALS: BP 151/71; PULSE 60; RESP 18
[2018-09-27] MEDS: SOD CHLORIDE 0.45% 1,000 ML IV SCH (14:32)
[2018-09-27] MEDS: HYDROCODONE/APAP (5/325) TAB PO PRN ×2 (16:01→23:21)
--- NOTE | 2018-09-27 16:20 | PN ---
Date/Time of Note Date/Time of Note DATE: 09/27/18 TIME: 16:11 Assessment/Plan VTE Prophylaxis Risk score (from Nsg)>0 risk: 2 SCD applied (from Ns): Yes Pharmacological prophylaxis: NA/contraindicated Pharm contraindication: low risk/ambulating Lines/Catheters IV Catheter Type (from Nrsg): Peripheral IV Urinary Cath still in place: No Assessment/Plan Assessment/Plan 1. Acute abdominal pain secondary to colitis - GI on board and appreciate recommendations. EGD performed 09/26 with findings of varices and severe gastritis. Colonoscopy showed colitis in rectal area - CT results noted - Continue IV antibiotics until tomorrow to complete 7 day course given im munocompromised status - Continue on Carafate, PPI and Levsin on board 2. Sepsis secondary to colitis- improving - remains afebrile with nl WBC 3. Mesenteric free fluid and slightly nodular mesenteric fat stranding - seen on imaging studies - evaluated by oncology who is not concerned with this being a metastatic process. Will await colonoscopy results to determine if any masses present. Repeat CT scan once inflammation resolves 4. Nausea with vomiting, resolved - Secondary to colitis above 5. Rheumatoid arthritis and lupus - Patient on chronic prednisone for control of sx. will continue - follows regularly with Wind Operations Supervisor as outpt 6. History of splenic infarct status post splenectomy - Monitor 7. Raynaud - With right finger amputation secondary to complications, stable, chronic, monitor 8. Disposition - Continue current treatment. Discussed with GI need for liver biopsy. Once tolerating PO intake without need for pain control, will dc home Result Diagram: 09/26/1827 09/26/18526 Results 24hrs Laboratory Tests Test 09/27/18 10:36 Hepatitis C Antibody NEGATIVE Subjective 24 Hr Interval Summary Free Text/Dictation Patient states shes still in pain with PO intake and requiring IV pain medications for relief. Discussed findings during EGD/colonoscopy and concerns for liver cirrhosis given presence of varices. No acute overnight events. Exam/Review of Systems Exam Vitals Vital Signs Date Temp Pulse Resp B/P (MAP) Pulse Ox O2 O2 Flow FiO2 Time Delivery Rate 09/27/18 97.9 60 18 151/71 92 Room Air 14:20 (97) Intake and Output 09/26/18 09/26/18 09/27/18 1515:00 23:00 07:00 IntakeIntake Total 300 ml 700 ml 1350 ml BalanceBalance 300 ml 700 ml 1350 ml Exam General: Patient is laying in bed and answers questions appropriately Neck: Supple, nontender, midline Respiratory: Clear to auscultation bilaterally. no wheezing Cardiovascular: regular rate and rhythm, no obvious murmurs Gastrointestinal: soft, mild discomfort to palpation epigastric area, no rebound or guarding, nondistended, bowel sounds heard. Neurological: Moves all extremities spontaneously Skin: No new skin lesions Results Results 24hrs Laboratory Tests Test 09/27/18 10:36 Hepatitis C Antibody NEGATIVE Medications Medication Current Medications IV Flush (NS 3 ml) 3 ml PER PROTOCOL IV ; Start 09/22/18 at 09:30 Ondansetron HCl (Zofran Inj) 4 mg Q6H PRN IV NAUSEA/VOMITING Last administered on 09/27/18 16:00; Admin Dose 4 MG; Start 09/22/18 at 09:30 Acetaminophen (Tylenol Tab) 650 mg Q6H PRN PO .PAIN 1-3 OR TEMP Last administer ed on 09/22/18 13:57; Admin Dose 650 MG; Start 09/22/18 at 09:30 Acetaminophen/ Hydrocodone Bitart ([place] (5/325)) 1 tab Q6H PRN PO .PAIN 4-6 Last administered on 09/27/18 16:01; Admin Dose 1 TAB; Start 09/22/18 at 09:30 Methylprednisolone Sodium Succinate (Solu-Medrol) 10 mg DAILY IV Last admini stered on 09/27/18 08:26; Admin Dose 10 MG; Start 09/22/18 at 10:00 Piperacillin Sod/ Tazobactam Sod 100 ml @ 200 mls/hr Q6 IVPB Last administered on 09/27/18 11:57; Admin Dose 200 MLS/HR; Start 09/22/18 at 12:00 Sucralfate (Carafate Susp) 1 gm QID PO Last administered on 09/27/18 12:02; Admin Dose 1 GM; Start 09/23/18 at 17:00 Hydromorphone HCl (Dilaudid) 0.5 mg Q4H PRN IV SEVERE PAIN LEVEL 7-10 Last administered on 09/27/18 11:57; Admin Dose 0.5 MG; Start 09/24/18 at 13:00 Sodium Chloride 1,000 ml @ 50 mls/hr Q20H IV Last administered on 09/27/18at 14:32; Admin Dose 50 MLS/HR; Start 09/25/18 at 10:30 Hyoscyamine (Levsin (Sl)) 0.125 mg Q6 PO Last administered on 09/27/18at 12:02; Admin Dose 0.125 MG; Start 09/27/18 at 05:45 Pantoprazole (Protonix Iv) 40 mg BID@0600,1800 IV ; Start 09/27/18 at 18:00 GENESIS GANDARA MD Sep 27, 2018 16:20
[2018-09-27 20:57] VITALS: BP 153/85; PULSE 58; RESP 16
[2018-09-28] MEDS: HYDROmorphONE 0.5 MG/0.5 ML SYG IV PRN ×4 (02:15→18:04)
[2018-09-28 02:34] VITALS: BP 148/74; PULSE 74; RESP 20
[2018-09-28] MEDS: PIPER-TAZO 3.375 GM IV (PMX) 100 ML IVPB SCH ×3 (06:18→17:23)
[2018-09-28] MEDS: PANTOPRAZOLE 40 MG INJ IV SCH (06:18)
[2018-09-28] MEDS: HYOSCYAMINE 0.125 MG SUBL TAB PO SCH ×3 (06:18→17:23)
[2018-09-28 08:00] VITALS: BP 152/74; PULSE 58; RESP 18
--- NOTE | 2018-09-28 08:49 | PN ---
Date/Time of Note Date/Time of Note DATE: 09/28/18 TIME: 08:49 Assessment/Plan VTE Prophylaxis Risk score (from Nsg)>0 risk: 2 SCD applied (from Ns): Yes Pharmacological prophylaxis: NA/contraindicated Pharm contraindication: low risk/ambulating Lines/Catheters IV Catheter Type (from Nrsg): Peripheral IV Urinary Cath still in place: No Assessment/Plan Assessment/Plan 1. Acute abdominal pain secondary to colitis- improving - still with heartburn symptoms but tolerating PO intake a little better. Still requiring IV pain control since feels like pain is worse after [place] taken - GI on board and appreciate recommendations. EGD performed 09/26 with findings of varices and severe gastritis. Colonoscopy showed colitis in rectal area - CT results noted - completed course of antibiotics - Continue on Carafate, PPI and Levsin on board 2. Sepsis secondary to colitis- improving - remains afebrile with nl WBC 3. Mesenteric free fluid and slightly nodular mesenteric fat stranding - seen on imaging studies - evaluated by oncology who is not concerned with this being a metastatic process. Will need a repeat CT scan once inflammation resolves 4. Nausea with vomiting, resolved - Secondary to colitis above 5. Rheumatoid arthritis and lupus - Patient on chronic prednisone for control of sx. will continue - follows regularly with [facility] [facility] as outpt 6. History of splenic infarct status post splenectomy - Monitor 7. Raynaud - With right finger amputation secondary to complications, stable, chronic, monitor 8. Disposition - Once tolerating PO intake without need for IV pain control, will d/c home Result Diagram: 09/26/1827 09/26/18 05 Results 24hrs Laboratory Tests Test 09/27/18 10:36 Hepatitis C Antibody NEGATIVE Subjective 24 Hr Interval Summary Free Text/Dictation Patient states shes been experiencing uncomfortable heart burn since yesterday but tolerating food a little better. Still requiring IV pain control since after taking [place], had tightening of chest and felt as if tablet was stuck in epigastric area. Exam/Review of Systems Exam Vitals Vital Signs Date Temp Pulse Resp B/P (MAP) Pulse Ox O2 O2 Flow FiO2 Time Delivery Rate 09/28/18 97.8 58 18 152/74 97 Room Air 08:00 (100) Intake and Output 09/27/18 09/27/18 09/28/18 1515:00 23:00 07:00 IntakeIntake Total 570 ml 1225 ml 750 ml OutputOutput Total 600 ml BalanceBalance 570 ml 625 ml 750 ml Exam General: Patient is laying in bed and answers questions appropriately Neck: Supple, nontender, midline Respiratory: Clear to auscultation bilaterally. no wheezing Cardiovascular: regular rate and rhythm, no obvious murmurs Gastrointestinal: soft, mild discomfort to palpation epigastric area, no rebound or guarding, nondistended, bowel sounds heard. Neurological: Moves all extremities spontaneously Skin: No new skin lesions Results Results 24hrs Laboratory Tests Test 09/27/18 10:36 Hepatitis C Antibody NEGATIVE Medications Medication Current Medications IV Flush (NS 3 ml) 3 ml PER PROTOCOL IV ; Start 09/22/18 at 09:30 Ondansetron HCl (Zofran Inj) 4 mg Q6H PRN IV NAUSEA/VOMITING Last administered on 09/27/18 16:00; Admin Dose 4 MG; Start 09/22/18 at 09:30 Acetaminophen (Tylenol Tab) 650 mg Q6H PRN PO .PAIN 1-3 OR TEMP Last administered on 09/22/18 13:57; Admin Dose 650 MG; Start 09/22/18 at 09:30 Acetaminophen/ Hydrocodone Bitart ([place] (5/325)) 1 tab Q6H PRN PO .PAIN 4-6 Last administered on 09/27/18 23:21; Admin Dose 1 TAB; Start 09/22/18 at 09:30 Methylprednisolone Sodium Succinate (Solu-Medrol) 10 mg DAILY IV Last administered on 09/27/18 08:26; Admin Dose 10 MG; Start 09/22/18 at 10:00 Piperacillin Sod/ Tazobactam Sod 100 ml @ 200 mls/hr Q6 IVPB Last administered on 09/28/18 06:18; Admin Dose 200 MLS/HR; Start 09/22/18 at 12:00; Stop 09/29/18 at 11:59 Sucralfate (Carafate Susp) 1 gm QID PO Last administered on 09/27/18 21:30; Admin Dose 1 GM; Start 09/23/18 at 17:00 Hydromorphone HCl (Dilaudid) 0.5 mg Q4H PRN IV SEVERE PAIN LEVEL 7-10 Last administered on 4/3/19at 06:19; Admin Dose 0.5 MG; Start 09/24/18 at 13:00 Sodium Chloride 1,000 ml @ 50 mls/hr Q20H IV Last administered on 09/27/18at 14:32; Admin Dose 50 MLS/HR; Start 09/25/18 at 10:30 Hyoscyamine (Levsin (Sl)) 0.125 mg Q6 PO Last administered on 09/28/18 06:18; Admin Dose 0.125 MG; Start 09/27/18 at 05:45 Pantoprazole (Protonix Iv) 40 mg BID@0600,1800 IV Last administered on 09/28/18 06:18; Admin Dose 40 MG; Start 09/27/18 at 18:00 GENESIS GANDARA MD Sep 28, 2018 08:49
[2018-09-28] MEDS: SUCRALFATE (100 MG/ML) 10ML CUP PO SCH ×4 (09:45→20:58)
[2018-09-28] MEDS: METHYLPREDNISOLONE 40 MG INJ IV SCH (09:45)
[2018-09-28] MEDS: SOD CHLORIDE 0.45% 1,000 ML IV SCH (11:53)
[2018-09-28] MEDS: CALCIUM CARBONATE 500 MG CHEW TAB PO PRN (13:13)
--- NOTE | 2018-09-28 14:19 | CONS ---
Assessment/Plan Assessment/Plan Hospital Course (Demo Recall) 33 yo F with PMH for lupus, rheumatoid arthritis, raynauds on chronic prednisone of 10 mg daily with sudden severe abdominal pain. CT scan showed Mild diffuse mesenteric free fluid and slightly nodular mesenteric fat stranding. A neoplastic process is not excluded on this examination. Thus we were consulted to see if there was an oncological process or workup. # Free fluid with nodular mesenteric fat stranding with abdominal pain - EGD performed 09/26 with findings of varices and severe gastritis. Colonoscopy showed colitis in rectal area but no evidence of cancer - EGD and Colonoscopy were unremarkable for any underlying cancer -Unlikely related to a neoplasm as patient has autoimmune disease and acute abdominal pain. Inflammation can represent this finding of nodular mesenteric fat. -No other lymph nodes or other areas where there is a noticeable mass. -Autoimmune and inflammatory process can have nodular mesenteric fat stranding. -as stated before we will repeat the CT scan as an out patient once her sx resolve to reevaluate the area of concern -Reassured patient that she unlikely has neoplasm. -GI on board and if during their workup they see diffuse LND or mass then we would pursue oncological workup. Patient seems to be stabilizing at this time. Consultation Date/Type/Reason Admit Date/Time Sep 22, 2018 at 09:01 Initial Consult Date 09/22/18 Type of Consult hematology Reason for Consultation anemia/ concern for underlying malignancy Requesting Provider: PATO MEAD Date/Time of Note DATE: 09/28/18 TIME: 14:14 24 HR Interval Summary Free Text/Dictation no acute over Exam/Review of Systems Exam Vitals Vital Signs Date Temp Pulse Resp B/P (MAP) Pulse Ox O2 O2 Flow FiO2 Time Delivery Rate 09/28/18 97.8 58 18 152/74 97 Room Air 08:00 (100) Intake and Output 09/27/18 09/27/18 09/28/18 1515:00 23:00 07:00 IntakeIntake Total 570 ml 1225 ml 750 ml OutputOutput Total 600 ml BalanceBalance 570 ml 625 ml 750 ml Results Result Diagram: 09/26/18 0527 09/26/18 0527 Medications Medication Current Medications IV Flush (NS 3 ml) 3 ml PER PROTOCOL IV ; Start 09/22/18 at 09:30 Ondansetron HCl (Zofran Inj) 4 mg Q6H PRN IV NAUSEA/VOMITING Last administered on 09/27/18 16:00; Admin Dose 4 MG; Start 09/22/18 at 09:30 Acetaminophen (Tylenol Tab) 650 mg Q6H PRN PO .PAIN 1-3 OR TEMP Last administered on 09/22/18 13:57; Admin Dose 650 MG; Start 09/22/18 at 09:30 Acetaminophen/ Hydrocodone Bitart ([place] (5/325)) 1 tab Q6H PRN PO .PAIN 4-6 Last administered on 09/27/18 23:21; Admin Dose 1 TAB; Start 09/22/18 at 09:30 Methylprednisolone Sodium Succinate (Solu-Medrol) 10 mg DAILY IV Last administered on 09/28/18 09:45; Admin Dose 10 MG; Start 09/22/18 at 10:00 Piperacillin Sod/ Tazobactam Sod 100 ml @ 200 mls/hr Q6 IVPB Last administered on 09/28/18 11:53; Admin Dose 200 MLS/HR; Start 09/22/18 at 12:00; Stop 09/29/18 at 11:59 Sucralfate (Carafate Susp) 1 gm QID PO Last administered on 09/28/18 13:13; Admin Dose 1 GM; Start 09/23/18 at 17:00 Hydromorphone HCl (Dilaudid) 0.5 mg Q4H PRN IV SEVERE PAIN LEVEL 7-10 Last ad ministered on 09/28/18 11:47; Admin Dose 0.5 MG; Start 09/24/18 at 13:00 Sodium Chloride 1,000 ml @ 50 mls/hr Q20H IV Last administered on 09/28/18 11:53; Admin Dose 50 MLS/HR; Start 09/25/18 at 10:30 Hyoscyamine (Levsin (Sl)) 0.125 mg Q6 PO Last administered on 09/28/18 11:52; Admin Dose 0.125 MG; Start 09/27/18 at 05:45 Pantoprazole (Protonix Iv) 40 mg BID@0600,1800 IV Last administered on 09/28/18 06:18; Admin Dose 40 MG; Start 09/27/18 at 18:00 Calcium Carbonate (Tums) 500 mg Q4 PRN PO heart burn Last administered on 09/28/18at 13:13; Admin Dose 500 MG; Start 09/28/18 at 10:30 MOOKIE ISLAS M.D. Sep 28, 2018 14:19
[2018-09-28 14:20] VITALS: BP 149/77; PULSE 63; RESP 18
--- NOTE | 2018-09-28 15:13 | PN ---
Date/Time of Note Date/Time of Note DATE: 09/28/18 TIME: 15:08 Assessment/Plan VTE Prophylaxis Risk score (from Nsg)>0 risk: 2 SCD applied (from Nsg): Yes Pharmacological prophylaxis: other (scds) Lines/Catheters IV Catheter Type (from Nrsg): Peripheral IV Urinary Cath still in place: No Assessment/Plan Hospital Course Assessment: Upper abdominal pain-stomach wall thickening noted on imaging 09/26/18 EGD Grade 2/4 esophageal varices. No intervention Severe gastritis rule out H. pylori Otherwise normal EGD Gastric biopsy shows chronic gastritis, no H.pylori (control positive)no evidence of malignancy Imaging consistent with colitis 09/26/18 colonoscopy Colitis is more significant in the area of the rectum, biopsies obtained Moderate-sized internal hemorrhoids Otherwise normal colonoscopy Biopsy of right colon, left colon, rectal biopsy all showed normal colon mucosa no evidence of colitis or malignancy Mesenteric fat stranding on CT Peripancreatic fluid on CT rule out pancreatitis - pancreatic enzymes normal N/v with hematemesis-resolved Liver cirrhosis -Hepatitis serology and autoimmune panel is negative Fevers- Resolved Lupus Rheumatoid arthritis Raynaud's Leukocytosis- resolved (prednisone use) Significant bandemia- on Zosyn History of splenectomy secondary to lupus flare about 1 year ago Plan: Pt to f/u with GI/Hepatology as out-pt as she may need liver ddx lupus hepatitis leading to cirrhosis vs other she will also need f/u EGD 3-6 months Propranolol 10 mg p.o. twice daily for esophageal varices Stool for H.pylori positive, however bx shows to be negative with a positive control Patient seen in collaboration with Dr. Coleman Subjective: PHYSICAL EXAMINATION: GENERAL: Alert & oriented x 3, in place, in no acute distress SKIN: No lesions HEAD: Normocephalic, atraumatic, no tenderness. EYES: Pupils equal reactive to light, no discharge. EARS/NOSE AND THROAT: Ears normal, nose normal, oropharynx normal. NECK: Supple, no masses. CHEST: Inspection within normal limits. CARDIOVASCULAR: Heart: Regular rate and rhythm RESPIRATORY: Lungs clear to auscultation GASTROINTESTINAL AND LIVER: Abdomen: Soft, epigastric tenderness, distended, no hernias, no masses, no organomegaly, no ascites, no guarding, no rebound tenderness, normoactive bowel sounds. Rectal: Deferred. GENITOURINARY: Female genitalia within normal limits. EXTREMITIES: No cyanosis, clubbing or edema. Result Diagram: 09/26/1852609/26/18526 Exam/Review of Systems Exam Vitals Vital Signs Date Temp Pulse Resp B/P (MAP) Pulse Ox O2 O2 Flow FiO2 Time Delivery Rate 09/28/18 97.8 58 18 152/74 97 Room Air 08:00 (100) Intake and Output 09/27/18 09/27/18 09/28/18 1515:00 23:00 07:00 IntakeIntake Total 570 ml 1225 ml 750 ml OutputOutput Total 600 ml BalanceBalance 570 ml 625 ml 750 ml Medications Medication Current Medications IV Flush (NS 3 ml) 3 ml PER PROTOCOL IV ; Start 09/22/18 at 09:30 Ondansetron HCl (Zofran Inj) 4 mg Q6H PRN IV NAUSEA/VOMITING Last administered on 09/27/18at 16:00; Admin Dose 4 MG; Start 09/22/18 at 09:30 Acetaminophen (Tylenol Tab) 650 mg Q6H PRN PO .PAIN 1-3 OR TEMP Last administered on 09/22/18 13:57; Admin Dose 650 MG; Start 09/22/18 at 09:30 Acetaminophen/ Hydrocodone Bitart ([place] (5/325)) 1 tab Q6H PRN PO .PAIN 4-6 Last administered on 09/27/18at 23:21; Admin Dose 1 TAB; Start 09/22/18 at 09:30 Methylprednisolone Sodium Succinate (Solu-Medrol) 10 mg DAILY IV Last administered on 09/28/18 09:45; Admin Dose 10 MG; Start 09/22/18 at 10:00 Piperacillin Sod/ Tazobactam Sod 100 ml @ 200 mls/hr Q6 IVPB Last administered on 09/28/18 11:53; Admin Dose 200 MLS/HR; Start 09/22/18 at 12:00; Stop 09/29/18 at 11:59 Sucralfate (Carafate Susp) 1 gm QID PO Last administered on 09/28/18 13:13; Admin Dose 1 GM; Start 09/23/18 at 17:00 Hydromorphone HCl (Dilaudid) 0.5 mg Q4H PRN IV SEVERE PAIN LEVEL 7-10 Last administered on 09/28/18 11:47; Admin Dose 0.5 MG; Start 09/24/18 at 13:00 Sodium Chloride 1,000 ml @ 50 mls/hr Q20H IV Last administered on 09/28/18 11:53; Admin Dose 50 MLS/HR; Start 09/25/18 at 10:30 Hyoscyamine (Levsin (Sl)) 0.125 mg Q6 PO Last administered on 09/28/18 11:52; Admin Dose 0.125 MG; Start 09/27/18 at 05:45 Pantoprazole (Protonix Iv) 40 mg BID@0600,1800 IV Last administered on 09/28/18 06:18; Admin Dose 40 MG; Start 09/27/18 at 18:00 Calcium Carbonate (Tums) 500 mg Q4 PRN PO heart burn Last administered on 09/28/18 13:13; Admin Dose 500 MG; Start 09/28/18 at 10:30 MONIQUE DE LA ROSA Sep 28, 2018 15:13
[2018-09-28] MEDS: PANTOPRAZOLE (EC) 40 MG TAB PO SCH (17:23)
[2018-09-28 19:52] VITALS: BP 132/67; PULSE 53; RESP 17
[2018-09-28] MEDS: PROPRANOLOL 10 MG TAB PO SCH (20:58)
[2018-09-29] MEDS: PIPER-TAZO 3.375 GM IV (PMX) 100 ML IVPB SCH ×2 (00:10→06:04)
[2018-09-29] MEDS: HYDROmorphONE 0.5 MG/0.5 ML SYG IV PRN ×2 (00:11→06:42)
[2018-09-29] MEDS: HYOSCYAMINE 0.125 MG SUBL TAB PO SCH ×3 (00:17→13:16)
[2018-09-29 02:07] VITALS: BP 131/81; PULSE 60; RESP 18
[2018-09-29] MEDS: CALCIUM CARBONATE 500 MG CHEW TAB PO PRN (02:24)
[2018-09-29] MEDS: PANTOPRAZOLE (EC) 40 MG TAB PO SCH (06:04)
[2018-09-29 07:45] VITALS: BP 139/80; PULSE 54; RESP 18
[2018-09-29] MEDS: METHYLPREDNISOLONE 40 MG INJ IV SCH (08:42)
[2018-09-29] MEDS: SUCRALFATE (100 MG/ML) 10ML CUP PO SCH ×2 (08:42→13:16)
[2018-09-29] MEDS: PROPRANOLOL 10 MG TAB PO SCH (08:42)
--- NOTE | 2018-09-29 09:17 | PN ---
Date/Time of Note Date/Time of Note DATE: 09/29/18 TIME: 09:16 Assessment/Plan VTE Prophylaxis Risk score (from Ns)>0 risk: 1 SCD applied (from Ns): Yes Pharmacological prophylaxis: NA/contraindicated Pharm contraindication: bleeding Lines/Catheters IV [facility] Type [facility]from [facility] Peripheral IV Urinary Cath still in place: No Assessment/Plan Assessment/Plan 1. Acute abdominal pain secondary to colitis- improving - Discussed following bland diet until GI symptoms improve. Will continue on current medications and follow up with GI as outpatient - GI on board and appreciate recommendations. EGD performed 09/26 with findings of varices and severe gastritis. Colonoscopy showed colitis in rectal area - CT results noted - completed course of antibiotics - Continue on Carafate, PPI and Levsin on board 2. Sepsis secondary to colitis- resolving - remains afebrile with nl WBC 3. Mesenteric free fluid and slightly nodular mesenteric fat stranding - seen on imaging studies - evaluated by oncology who is not concerned with this being a metastatic process. Will need a repeat CT scan once inflammation resolves 4. Nausea with vomiting, resolved - Secondary to colitis above 5. Rheumatoid arthritis and lupus - Patient on chronic prednisone for control of sx. will continue - follows regularly with [facility] as outpt 6. History of splenic infarct status post splenectomy - Monitor 7. Raynaud - With right finger amputation secondary to complications, stable, chronic, monitor 8. Disposition - Medically stable for discharge home Result Diagram: 09/26/1852609/26/18526 Subjective 24 Hr Interval Summary Free Text/Dictation Patient states shes still experiencing abdominal discomfort with bloating and acid reflux. Discussed starting bland diet and advancing based on symptoms after discharge. No acute overnight events. Exam/Review of Systems Exam Vitals Vital Signs Date Temp Pulse Resp B/P (MAP) Pulse Ox O2 O2 Flow FiO2 Time Delivery Rate 09/29/18 97.9 54 18 139/80 95 Room Air 07:45 (99) Intake and Output 09/28/18 09/28/18 09/29/18 1515:00 23:00 07:00 IntakeIntake Total 425 ml 1250 ml 700 ml BalanceBalance 425 ml 1250 ml 700 ml Exam General: Patient is laying in bed and answers questions appropriately Neck: Supple, nontender, midline Respiratory: Clear to auscultation bilaterally. no wheezing Cardiovascular: regular rate and rhythm, no obvious murmurs Gastrointestinal: soft, mild discomfort to palpation epigastric area, no rebound or guarding, nondistended, bowel sounds heard. Neurological: Moves all extremities spontaneously Skin: No new skin lesions Medications Medication Current Medications IV Flush (NS 3 ml) 3 ml PER PROTOCOL IV ; Start 09/22/18 at 09:30 Ondansetron HCl (Zofran Inj) 4 mg Q6H PRN IV NAUSEA/VOMITING Last administered on 09/27/18 16:00; Admin Dose 4 MG; Start 09/22/18 at 09:30 Acetaminophen (Tylenol Tab) 650 mg Q6H PRN PO .PAIN 1-3 OR TEMP Last administ ered on 09/22/18 13:57; Admin Dose 650 MG; Start 09/22/18 at 09:30 Acetaminophen/ Hydrocodone Bitart ([place] (5/325)) 1 tab Q6H PRN PO .PAIN 4-6 Last administered on 09/27/18 23:21; Admin Dose 1 TAB; Start 09/22/18 at 09:30 Methylprednisolone Sodium Succinate (Solu-Medrol) 10 mg DAILY IV Last admi nistered on 09/29/18 08:42; Admin Dose 10 MG; Start 09/22/18 at 10:00 Piperacillin Sod/ Tazobactam Sod 100 ml @ 200 mls/hr Q6 IVPB Last administered on 09/29/18 06:04; Admin Dose 200 MLS/HR; Start 09/22/18 at 12:00; Stop 09/29/18 at 11:59 Sucralfate (Carafate Susp) 1 gm QID PO Last administered on 09/29/18 08:42; Admin Dose 1 GM; Start 09/23/18 at 17:00 Hydromorphone HCl (Dilaudid) 0.5 mg Q4H PRN IV SEVERE PAIN LEVEL 7-10 Last administered on 09/29/18 06:42; Admin Dose 0.5 MG; Start 09/24/18 at 13:00 Sodium Chloride 1,000 ml @ 50 mls/hr Q20H IV Last administered on 09/28/18 11:53; Admin Dose 50 MLS/HR; Start 09/25/18 at 10:30 Hyoscyamine (Levsin (Sl)) 0.125 mg Q6 PO Last administered on 09/29/18 06:04; Admin Dose 0.125 MG; Start 09/27/18 at 05:45 Calcium Carbonate (Tums) 500 mg Q4 PRN PO heart burn Last administered on 09/29/18 02:24; Admin Dose 500 MG; Start 09/28/18 at 10:30 Pantoprazole (Protonix Tab) 40 mg BID@06,18 PO Last administered on 09/29/18 06:04; Admin Dose 40 MG; Start 09/28/18 at 18:00 Propranolol HCl (Inderal) 10 mg BID PO Last administered on 09/29/18 08:42; Ad min Dose 10 MG; Start 09/28/18 at 21:00 GENESIS GANDARA MD Sep 29, 2018 09:17
--- NOTE | 2018-09-29 11:18 | CONS ---
Assessment/Plan Assessment/Plan Hospital Course (Demo Recall) 33 yo F with PMH for lupus, rheumatoid arthritis, raynauds on chronic prednisone of 10 mg daily with sudden severe abdominal pain. CT scan showed Mild diffuse mesenteric free fluid and slightly nodular mesenteric fat stranding. A neoplastic process is not excluded on this examination. Thus we were consulted to see if there was an oncological process or workup. # Free fluid with nodular mesenteric fat stranding with abdominal pain - EGD performed 09/26 with findings of varices and severe gastritis. Colonoscopy showed colitis in rectal area but no evidence of cancer - EGD and Colonoscopy were unremarkable for any underlying cancer -Unlikely related to a neoplasm as patient has autoimmune disease and acute abdominal pain. Inflammation can represent this finding of nodular mesenteric fat. -No other lymph nodes or other areas where there is a noticeable mass. -Autoimmune and inflammatory process can have nodular mesenteric fat stranding. -as stated before we will repeat the CT scan as an out patient once her sx resolve to reevaluate the area of concern -Reassured patient that she unlikely has neoplasm. -GI on board and if during their workup they see diffuse LND or mass then we would pursue oncological workup. Patient seems to be stabilizing at this time. Consultation Date/Type/Reason Admit Date/Time Sep 22, 2018 at 09:01 Initial Consult Date 09/22/18 Type of Consult hematology Reason for Consultation concern for underlying malignancy Requesting Provider: PATO MEAD Date/Time of Note DATE: 09/29/18 TIME: 11:14 24 HR Interval Summary Free Text/Dictation still requiring pain meds ATC Exam/Review of Systems Exam Vitals Vital Signs Date Temp Pulse Resp B/P (MAP) Pulse Ox O2 O2 Flow FiO2 Time Delivery Rate 09/29/18 97.9 54 18 139/80 95 Room Air 07:45 (99) Intake and Output 09/28/18 09/28/18 09/29/18 1515:00 23:00 07:00 IntakeIntake Total 425 ml 1250 ml 700 ml BalanceBalance 425 ml 1250 ml 700 ml Constitutional: alert Psych: no complaints Head: normocephalic Eyes: nl conjunctiva ENMT: nl external ears & nose Neck: supple Respiratory: clear to auscultation Cardiovascular: regular rate and rhythm Gastrointestinal: tender Musculoskeletal: nl extremities to inspection Results Result Diagram: 09/26/1852609/26/18526 Medications Medication Current Medications IV Flush (NS 3 ml) 3 ml PER PROTOCOL IV ; Start 09/22/18 at 09:30 Ondansetron HCl (Zofran Inj) 4 mg Q6H PRN IV NAUSEA/VOMITING Last administered on 09/27/18 16:00; Admin Dose 4 MG; Start 09/22/18 at 09:30 Acetaminophen (Tylenol Tab) 650 mg Q6H PRN PO .PAIN 1-3 OR TEMP Last administered on 09/22/18 13:57; Admin Dose 650 MG; Start 09/22/18 at 09:30 Acetaminophen/ Hydrocodone Bitart ([place] (5/325)) 1 tab Q6H PRN PO .PAIN 4-6 Last administered on 09/27/18 23:21; Admin Dose 1 TAB; Start 09/22/18 at 09:30 Methylprednisolone Sodium Succinate (Solu-Medrol) 10 mg DAILY IV Last administered on 09/29/18 08:42; Admin Dose 10 MG; Start 09/22/18 at 10:00 Piperacillin Sod/ Tazobactam Sod 100 ml @ 200 mls/hr Q6 IVPB Last administered on 09/29/18 06:04; Admin Dose 200 MLS/HR; Start 09/22/18 at 12:00; Stop 09/29/18 at 11:59 Sucralfate (Carafate Susp) 1 gm QID PO Last administered on 09/29/18 08:42; Admin Dose 1 GM; Start 09/23/18 at 17:00 Hydromorphone HCl (Dilaudid) 0.5 mg Q4H PRN IV SEVERE PAIN LEVEL 7-10 Last administered on 09/29/18 06:42; Admin Dose 0.5 MG; Start 09/24/18 at 13:00 Sodium Chloride 1,000 ml @ 50 mls/hr Q20H IV Last administered on 09/28/18 11:53; Admin Dose 50 MLS/HR; Start 09/25/18 at 10:30 Hyoscyamine (Levsin (Sl)) 0.125 mg Q6 PO Last administered on 09/29/18 06:04; Admin Dose 0.125 MG; Start 09/27/18 at 05:45 Calcium Carbonate (Tums) 500 mg Q4 PRN PO heart burn Last administered on 09/29/18at 02:24; Admin Dose 500 MG; Start 09/28/18 at 10:30 Pantoprazole (Protonix Tab) 40 mg BID@,18 PO Last administered on 09/29/18at 06:04; Admin Dose 40 MG; Start 09/28/18 at 18:00 Propranolol HCl (Inderal) 10 mg BID PO Last administered on 09/29/18at 08:42; Admin Dose 10 MG; Start 09/28/18 at 21:00 MOOKIE ISLAS M.D. Sep 29, 2018 11:18
[2018-09-29] MEDS ORDERED: SIME80TA53 PO (12:07)
[2018-09-29] MEDS ORDERED: SUCR1TAB56 PO (12:07)
[2018-09-29] MEDS ORDERED: PROP10TA6 PO (12:07)
[2018-09-29] MEDS ORDERED: HYDR-3601 PO (12:07)
[2018-09-29] MEDS ORDERED: PANT40TA4 PO (12:07)
[2018-09-29] MEDS ORDERED: CALC200T26 PO (12:07)
--- NOTE | 2018-09-29 12:12 | PDOCDIS ---
Discharge Instructions DIAGNOSIS Discharge Diagnosis 1. Acute abdominal pain secondary to severe gastritis and colitis- improving 2. Sepsis secondary to colitis- resolving 3. Mesenteric free fluid and slightly nodular mesenteric fat stranding- benign 4. Nausea with vomiting, resolved 5. Rheumatoid arthritis and lupus 6. History of splenic infarct status post splenectomy 7. Raynaud CONDITION [id number] Patient Condition: [id number] Stable HOME CARE INSTRUCTIONS: [id number] Diet Instructions: [id number] Regular ACTIVITY: [id number] Activity Restrictions: [id number] No Restrictions FOLLOW UP/APPOINTMENTS Follow-up Plan 1. Follow up with your primary care physician in 1-2 weeks 2. Take Pantoprazole 40 mg twice a day for the next 6 weeks 3. Take Carafate four times a day for the next 5 weeks 4. Take Simethicone as needed for bloating symptoms 5. You will need to follow up with GI specialist in 3-6 months for another EGD to reevaluate gastritis 6. You should follow a bland diet until your reflux and abdominal pain symptoms improve 7. If experiencing any worsening of symptoms, please go to your nearest emergency department REFERRALS Other Referrals SuchAlbino garza MD Specialty: Gastroenterology Office Address [id number] [facility] [place] [address] Office GENESIS GANDARA MD Sep 29, 2018 12:12
[2018-09-29] MEDS: HYDROCODONE/APAP (5/325) TAB PO PRN (13:16)
[2018-09-29 14:30] VITALS: BP 138/74; PULSE 59; RESP 16
--- NOTE | 2018-09-29 16:31 | DS ---
Date/Time of Note Date/Time of Note DATE: 09/29/18 TIME: 16:25 Discharge Summary Admission/Discharge Info Admit Date/Time Sep 22, 2018 at 09:01 Discharge Date/Time Sep 29, 2018 at 15:00 Discharge Diagnosis 1. Acute abdominal pain secondary to severe gastritis and colitis- improving 2. Sepsis secondary to colitis- resolving 3. Mesenteric free fluid and slightly nodular mesenteric fat stranding- benign 4. Nausea with vomiting, resolved 5. Rheumatoid arthritis and lupus 6. History of splenic infarct status post splenectomy 7. Raynaud Patient Condition: Stable Consults GI- Dr. Coleman Oncology- Dr. Nagy Procedures 09/26/18 EGD Grade 2/4 esophageal varices. No intervention Severe gastritis rule out H. pylori Otherwise normal EGD Gastric biopsy shows chronic gastritis, no H.pylori (control positive)no evidence of malignancy 09/26/18 colonoscopy Colitis is more significant in the area of the rectum, biopsies obtained Moderate-sized internal hemorrhoids Otherwise normal colonoscopy Biopsy of right colon, left colon, rectal biopsy all showed normal colon mucosa no evidence of colitis or malignancy PROCEDURE: CT Abdomen and Pelvis with contrast. CLINICAL INDICATION: Abdominal pain. TECHNIQUE: CT scan of the abdomen and pelvis with contrast was performed utilizing axial tomographic images from the domes the diaphragm to the symphysis pubis. The patient was scanned post uncomplicated intravenous administration of 100 cc of Omnipaque-300. Coronal and sagittal reformatted images were obtai rivas from the axial source images. Images were reviewed on a high-resolution PACS workstation. The total exam CTDI equals 21.57 mGy and the total exam DLP equals 1371.03 mGy-cm. One or more of the following dose reduction techniques were used: Automated exposure control, adjustment of the mA and / or kV according to patient size, or use of iterative reconstruction technique. DICOM images are available. COMPARISON: CT 01/07/2017 FINDINGS: The lung bases demonstrate bilateral basilar ground-glass opacities. The liver contour appears somewhat nodular. No focal intrahepatic masses are identified. There is no intra or extrahepatic biliary dilatation. There is mild periportal edema. The gallbladder is distended. There is mild gallbladder wall thickening versus pericholecystic fluid. The spleen is surgically absent. The adrenal glands are unremarkable. A small peripancreatic free fluid. There is small fluid and stranding throughout the mesentery. The kidneys are symmetric in size and demonstrate normal enhancement. No hydronephrosis or hydroureter is seen. No renal parenchymal mass is identified. The urinary bladder is unremarkable. There is mild diffuse gastric mucosal thickening. The bowel demonstrates normal course and caliber. There is no evidence of bowel obstruction. There is mucosal thickening of the ascending and transverse colon. Dense material is again noted in the cecum. The appendix is normal in appearance. The uterus and adnexa are unremarkable. There is small free fluid in the pelvis. No intraperitoneal free air or abscess identified. No retroperitoneal, mesenteric, or inguinal adenopathy is identified. The abdominal aorta and major branching vessels are normal in caliber. The osseous structures are unremarkable. No significant subcutaneous soft tissue abnormality is identified. IMPRESSION: 1. Interval postsurgical changes from splenectomy. 2. Slightly nodular contour of the liver. Clinical correlation for cirrhosis is recommended. There is mild diffuse periportal edema. 3. Gallbladder wall thickening versus pericholecystic fluid, not significantly changed from prior examination. 4. Mild diffuse mesenteric free fluid and slightly nodular mesenteric fat stranding. A neoplastic process is not excluded on this examination. 5. Free fluid along the pancreas. Correlation with amylase and lipase is recommended to exclude pancreatitis. 6. Mucosal thickening of the stomach. 7. Mucosal thickening of the ascending and transverse colon, consistent with colitis. 8. Dense material in the cecum, not significantly changed from prior examination. 9. Small free fluid in the pelvis. RPTAT: HH .Екатерина Manzo MD, MD Date Time Electronically viewed and signed by .Екатерина Manzo MD, on 09/22/2018 07:30 Hx of Present Illness Patient is a female the past medical history significant for lupus, rheumatoid arthritis, Raynaud on chronic prednisone of 10 mg daily who presents to [facility] for sudden onset abdominal pain. Patient states that everything was fine when she went to sleep, however around midnight she suddenly woke up with some mild epigastric discomfort that quickly turned into a spreading generalized abdominal pain that was severe. Patient's also had vomiting and diarrhea as well as nausea. Currently patient still says that the abdomen does hurt still a bit and is currently still nauseated and vomiting. Patient does not have any changes as far as her diet in the past 24 hours and otherwise felt well before her abdominal pain. Patient follows up with a j2ee engineer on a normal basis as well. Patient denies headache, dizziness, chest pain, shortness of breath, leg pain, urinary or bowel dysfunction. 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 Hospital Course Patient was admitted and GI was consulted given multiple issues seen on CT scan of abd/pelvis. Patient was found with colitis and treated with a course of antibiotics. She underwent EGD with findings of severe gastritis and varices and colonoscopy with findings of colitis as well. Oncology was consulted given findings concerning for malignancy on CT scan due to findings of mesenteric free fluid and slightly nodular mesenteric fat stranding. Biopsies were negative for Hpylori. Patient was continued on PPI and Carafate with improvement in reflux symptoms and abdominal discomfort. Patients presenting symptoms improved and patient remained stable. Patient was discharged home in good condition with recommendations to follow up with GI as outpatient. Home Meds Active Scripts Simethicone (GAS RELIEF) 80 Mg Tab.chew, 80 MG PO Q6 for 30 Days, #120 TAB.CHEW Prov:GENESIS GANDARA MD 09/29/18 Sucralfate* (Carafate*) 1 Gm Tab, 1 GM PO Q6 for 35 Days, #140 TAB Prov:GENESIS GANDARA MD 09/29/18 Pantoprazole* (Pantoprazole*) 40 Mg Tablet.dr, 40 MG PO BID@06,18 for 30 Days, #60 TAB 9 Refills Prov:GENESIS GANDARA MD 09/29/18 Calcium Carbonate (CALCIUM CARBONATE) 200 Mg Tab.chew, 500 MG PO Q4 PRN for heart burn for 30 Days, #120 TAB.CHEW 9 Refills Prov:GENESIS GANDARA MD 09/29/18 Hydrocodone Bit-Acetaminophen (Hydrocodone Bit-APAP) 5-325MG Tablet, 1 TAB PO Q6H PRN for .PAIN 4-6 for 7 Days, #20 TAB Prov:GENESIS GANDARA MD 09/29/18 Propranolol Hcl* (Propranolol Hcl*) 10 Mg Tablet, 10 MG PO BID for 30 Days, #60 TAB 9 Refills Prov:GENESIS GANDARA MD 09/29/18 Albuterol Sulfate* (Albuterol Sulfate* Neb) 0.083%-3 Ml Neb, 5 MG NEB Q4 PRN for SHORTNESS OF BREATH, #30 EA Prov:MICKY CHAN MD 08/17/18 Reported Medications Ergocalciferol (Vitamin D2) (VITAMIN D2) 50,000 Unit Capsule, 03889 UNIT PO QMONDAY 09/22/18 Ferrous Sulfate* (Ferrous Sulfate*) 325 Mg Tabec, 325 MG PO BID TK 1 T PO BID 09/22/18 Aspirin Ec (Aspir 81) 81 Mg Tablet.dr, 81 MG PO DAILY, #30 TAB 09/22/18 Azathioprine* (Imuran*) 50 Mg Tab, 50 MG PO BID, TAB 01/07/17 Hydroxychloroquine Sulfate* (Hydroxychloroquine Sulfate*) 200 Mg Tablet, 200 MG PO BID, TAB 01/07/17 Discontinued Reported Medications Pantoprazole* (Pantoprazole*) 40 Mg Tablet.dr, 40 MG PO AC BREAKFAST, TAB 01/07/17 Amlodipine Besylate* (Norvasc*) 5 Mg Tablet, 2.5 MG PO BID, TAB 01/07/17 Prednisone* (Prednisone*) 10 Mg Tab, 10 MG PO BID, TAB 01/07/17 Discontinued Scripts Ondansetron Hcl* (Zofran*) 8 Mg Tablet, 8 MG PO Q6H PRN for NAUSEA AND OR VOMITING, #20 TAB Prov:JENNY RAWLS MD 09/22/18 Famotidine* (Pepcid*) 20 Mg Tablet, 20 MG PO BID for 14 Days, TAB Prov:JENNY RAWLS MD 09/22/18 Azithromycin* (Zithromax*) 250 Mg Tablet, 250 MG PO .KELSIE DIRECTED, #6 TAB TAKE 500 MG (2 TABS) THE FIRST DAY THEN 250 MG (1 TAB) DAYS 2-5 Prov:MICKY CHAN MD 08/17/18 Prednisone* (Prednisone*) 20 Mg Tab, 40 MG PO DAILY for 4 Days, TAB Prov:MICKY CHAN MD 08/17/18 Acetaminophen* (Tylenol*) 325 Mg Tablet, 2 TAB PO Q8 PRN for PAIN AND OR ELEVATED TEMP, #20 TAB Prov:ANT MANRIQUEZ PA-C 06/11/18 Ibuprofen* (Motrin*) 800 Mg Tab, 800 MG PO Q6, #30 TAB Prov:ANT MANRIQUEZ PA-C 06/11/18 Methylprednisolone* (Medrol* DOSE PACK) 4 Mg/Dose-Pack Tab.ds.pk, 4 MG PO . DIRECTED, #1 PACKET Prov:ANT MANRIQUEZ PA-C 06/11/18 Oseltamivir Phosphate* (Tamiflu*) 75 Mg Capsule, 75 MG PO BID for 5 Days, CAP Prov:ANT MANRIQUEZ PA-C 06/11/18 Naproxen* (Naprosyn*) 500 Mg Tablet, 500 MG PO BID PRN for PAIN AND/OR INFLAMMATION, #30 TAB Prov:MEKHI LOVE PA-C 04/19/18 Ciprofloxacin Hcl* (Ciprofloxacin Hcl*) 500 Mg Tablet, 500 MG PO DAILY for 5 Days, #5 TAB Prov:MEKHI LOVE PA-C 04/03/18 Bismuth Subsalicylate* (Bismuth Subsalicylate*) 262 Mg/15 Ml Oral.susp, 15 ML PO Q6 PRN for diarr, #1 BOTTLE Prov:MEKHI LOVE PA-C 04/03/18 Ondansetron (Ondansetron Odt) 4 Mg Tab.rapdis, 4 MG PO Q6H PRN for NAUSEA AND/OR VOMITING, #10 TAB Prov:MEKHI LOVE PA-C 04/03/18 Ondansetron (Ondansetron Odt) 8 Mg Tab.rapdis, 8 MG PO Q8 PRN for NAUSEA AND/OR VOMITING, #30 TAB Prov:ZARA GUPTA PA-C 04/01/18 Acetaminophen* (Acetaminophen*) 650 Mg Tablet, 650 MG PO Q6H PRN for PAIN AND OR ELEVATED TEMP, #30 TAB Prov:ZARA GUPTA PA-C 04/01/18 Diphenhydramine Hcl* (Benadryl*) 25 Mg Cap, 25-50 MG PO Q6 PRN for ITCHING/RASH, #30 TAB Prov:ZARA GUPTA PA-C 02/01/18 Sulfamethoxazole/Trimethoprim* (Bactrim Ds* Tablet) 1 Each Tablet, 1 TAB PO BID, #14 TAB Prov:JOHNATHAN GUPTASHAYYLubna Palak WILD-C 02/01/18 Cephalexin* (Keflex*) 500 Mg Capsule, 500 MG PO QID for 7 Days, CAP Prov:ZARA GUPTAShun PA-C 02/01/18 Cephalexin* (Keflex*) 500 Mg Capsule, 500 MG PO QID for 7 Days, CAP Prov:WAYNEMINA TORRI-C 02/10/17 Sulfamethoxazole/Trimethoprim* (Bactrim Ds* Tablet) 1 Each Tablet, 1 TAB PO BID for 10 Days, TAB Prov:WAYNE,MINA WILD-C 02/10/17 Prednisone* (Prednisone*) 20 Mg Tab, 40 MG PO DAILY for 14 Days, #28 TAB Prov:PATO MEAD 01/14/17 Oxycodone HCl/Acetaminophen (Percocet 10-325 mg Tablet) 1 Each Tablet, 1 EACH PO Q8 PRN for PAIN for 7 Days, #21 TAB Prov:PATO MEAD 01/11/17 Follow-up Plan 1. Follow up with your primary care physician in 1-2 weeks 2. Take Pantoprazole 40 mg twice a day for the next 6 weeks 3. Take Carafate four times a day for the next 5 weeks 4. Take Simethicone as needed for bloating symptoms 5. You will need to follow up with GI specialist in 3-6 months for another EGD to reevaluate gastritis 6. You should follow a bland diet until your reflux and abdominal pain symptoms improve 7. If experiencing any worsening of symptoms, please go to your nearest emergency department Primary Care Provider [facility] Time spent on discharge: > 30 minutes GENESIS GANDARA MD Sep 29, 2018 16:30
== END 2018-09-29 15:00 | disposition home or self-care (01) | DRG 872 ==
LOC: E/R 02:46 → PP2 09:01
PROVIDERS: ADMIT Internal Medicine; ATTEND Internal Medicine
PROC: 0DBP8ZX Excision of Rectum, Via Natural or Artificial Opening Endoscopic, Diagnostic (ICD-10-PCS; 2018-09-26)
PROC: 0DBF8ZX Excision of Right Large Intestine, Via Natural or Artificial Opening Endoscopic, Diagnostic (ICD-10-PCS; 2018-09-26)
PROC: 0DB68ZX Excision of Stomach, Via Natural or Artificial Opening Endoscopic, Diagnostic (ICD-10-PCS; principal; 2018-09-26 16:00)
PROC: 0DBG8ZX Excision of Left Large Intestine, Via Natural or Artificial Opening Endoscopic, Diagnostic (ICD-10-PCS; 2018-09-26 16:00)
DX: A41.9 Sepsis, unspecified organism (principal); A09 Infectious gastroenteritis and colitis, unspecified; K92.0 Hematemesis; I85.00 Esophageal varices without bleeding; M06.9 Rheumatoid arthritis, unspecified; D64.89 Other specified anemias; Z90.81 Acquired absence of spleen; Z79.52 Long term (current) use of systemic steroids; K76.9 Liver disease, unspecified; I73.00 Raynaud's syndrome without gangrene; E87.8 Other disorders of electrolyte and fluid balance, not elsewhere classified; D72.825 Bandemia; T40.2X5A Adverse effect of other opioids, initial encounter; Y92.239 Unspecified place in hospital as the place of occurrence of the external cause; M32.9 Systemic lupus erythematosus, unspecified; K29.70 Gastritis, unspecified, without bleeding; K64.8 Other hemorrhoids; K74.60 Unspecified cirrhosis of liver; R93.5 Abnormal findings on diagnostic imaging of other abdominal regions, including retroperitoneum
CPT/HCPCS: 36415; 74177; 80048; 80053; 80061; 82150; 83036; 83605; 83690; 83735; 84100; 84703; 85025; 86038; 86255; 86674; 86704; 86706; 86803; 87045; 87075; 87177; 87338; 87340; 88305; 88312; 96374; 96375; 96376; C9113; J0744; J1170; J1200; J1885; J2270; J2405; J2543; J2920; J3480; J7030; Q9967

== ENCOUNTER 2018-10-13 23:24 | Emergency (ER) | payer OTHER ==
[~2018-10-13] VITALS: Ht 162.6 cm; Wt 95.6 kg
[~2018-10-13 23:24] MED LIST changes: -ACET-2047 PO; -ACET325T33 PO; -AMLO5TAB4 PO; +ASPI-535 PO; -AZIT250T PO; -BEN25 PO; -BISM-34 PO; +CALC200T26 PO; -CEPH-443 PO; -CIPR500T4 PO; +ERGO500013 PO; +FER325 PO; +HYDR-3601 PO; -IBUP800T48 PO; -MED4DP PO; -NAPR-985 PO; -ONDA4TAB14 PO; -ONDA8TAB14 PO; -OSEL75CA23 PO; -OXYC-209 PO; -PRED10TA PO; -PRED20TA PO; +PROP10TA6 PO; +SIME80TA53 PO; +SUCR1TAB56 PO; -SULF1TAB31 PO
[2018-10-13 23:26] VITALS: Ht 162.6 cm; Wt 95.6 kg
--- NOTE | 2018-10-14 03:01 | ERD ---
ER Documentation Chief Complaint Chief Complaint bib self, cc: right hand middle finger pain, redness, x 1 week, HPI This is a 33-year-old female presents emergency department with complaints of right middle finger possible infection . Stated that she was on amoxicillin. Stated that she has this same thing on her right index finger, had a bone infection, got amputated. Patient is insisting x-ray. LMP: 09/29/2018. . Denies headache, head injury, loss of consciousness, dizziness, neck pain, neck stiffness, throat pain, difficulty swallowing, difficulty breathing lying flat, shoulder pain, chest pain, back pain, abdominal pain, nausea, vomiting, constipation, diarrhea, urinary symptoms, or possibility being , loss of bowel and bladder control, trauma, injury, falls, difficulty walking due to pain, numbness or tingling sensation, calf pain, recent travel, recent major surgery in the last 3 weeks, calf pain, recent long travel, recent exposure to any illness, recent antibiotic use in the last 3 months, fever, chills, seizures. Past medical history: Lupus. Rheumatoid arthritis, Raynaud's disease. Surgical history: Splenectomy. Social: Denies smoking, use of alcoholic beverages, use of illegal drugs. ROS All systems reviewed and are negative except as per history of present illness. Medications Home Meds Active Scripts Cephalexin* (Keflex*) 500 Mg Capsule, 500 MG PO TID for 7 Days, CAP Prov:PRICE PEDRAZA F 10/14/18 Clotrimazole* (Clotrimazole* AF) 1% - 30 Gm Cream.gm., 1 APPLIC TOP BID for 7 Days, TUB Prov:PRICE PEDRAZA 10/14/18 Simethicone (GAS RELIEF) 80 Mg Tab.chew, 80 MG PO Q6 for 30 Days, #120 TAB.CHEW Prov:GENESIS GANDARA MD 09/29/18 Sucralfate* (Carafate*) 1 Gm Tab, 1 GM PO Q6 for 35 Days, #140 TAB Prov:GENESIS GANDARA MD 09/29/18 Pantoprazole* (Pantoprazole*) 40 Mg Tablet.dr, 40 MG PO BID@06,18 for 30 Days, #60 TAB 9 Refills Prov:GENESIS GANDARA MD 09/29/18 Calcium Carbonate (CALCIUM CARBONATE) 200 Mg Tab.chew, 500 MG PO Q4 PRN for heart burn for 30 Days, #120 TAB.CHEW 9 Refills Prov:GENESIS GANDARA MD 09/29/18 Hydrocodone Bit-Acetaminophen (Hydrocodone Bit-APAP) 5-325MG Tablet, 1 TAB PO Q6H PRN for .PAIN 4-6 for 7 Days, #20 TAB Prov:GENESIS GANDARA MD 09/29/18 Propranolol Hcl* (Propranolol Hcl*) 10 Mg Tablet, 10 MG PO BID for 30 Days, #60 TAB 9 Refills Prov:GENESIS GANDARA MD 09/29/18 Albuterol Sulfate* (Albuterol Sulfate* Neb) 0.083%-3 Ml Neb, 5 MG NEB Q4 PRN for SHORTNESS OF BREATH, #30 EA Prov:MICKY CHAN MD 08/17/18 Reported Medications Ergocalciferol (Vitamin D2) (VITAMIN D2) 50,000 Unit Capsule, 04303 UNIT PO QMONDAY 09/22/18 Ferrous Sulfate* (Ferrous Sulfate*) 325 Mg Tabec, 325 MG PO BID TK 1 T PO BID 09/22/18 Aspirin Ec (Aspir 81) 81 Mg Tablet.dr, 81 MG PO DAILY, #30 TAB 09/22/18 Azathioprine* (Imuran*) 50 Mg Tab, 50 MG PO BID, TAB 01/07/17 Hydroxychloroquine Sulfate* (Hydroxychloroquine Sulfate*) 200 Mg Tablet, 200 MG PO BID, TAB 01/07/17 Allergies Allergies: Coded Allergies: vancomycin (Verified Allergy, Unknown, 09/22/18) PMhx/Soc History of Surgery: Yes (spleenectomy 11/2016, finger amputation 03/2017) Anesthesia Reaction: No Hx Neurological Disorder: Yes (Raynauds) Hx Respiratory Disorders: Yes (asthma) Hx Cardiac Disorders: No Hx Psychiatric Problems: No Hx Miscellaneous Medical Probl: Yes (Lupus) Hx Alcohol Use: No Hx Substance Use: No Hx Tobacco Use: No Smoking Status: Never smoker Physical Exam Vitals Vital Signs Date Temp Pulse Resp B/P (MAP) Pulse Ox O2 O2 Flow FiO2 Time Delivery Rate 10/14/18 98.0 17 17 140/87 98 Room Air 06:29 (104) 10/13/18 99.7 86 19 141/80 100 23:26 (100) Physical Exam Const: No acute distress Head: Atraumatic Eyes: Normal Conjunctiva ENT: Normal External Ears, Nose and Mouth. Neck: Full range of motion. No meningismus. Resp: Clear to auscultation bilaterally Cardio: Regular rate and rhythm, no murmurs Abd: Soft, non tender, non distended. Normal bowel sounds Skin: No petechiae or rashes Back: No midline or flank tenderness Ext: No cyanosis, or edema. Right middle finger: Distal area of the distal phalanx and distal nail has a yellowish/greenish discoloration. No signs of paronychia. No signs of subungual hematoma. MCP/PIP/DIP of the right middle finger has good and full range of motion without suspicion of tendon injury. Neur: Awake and alert Psych: Normal Mood and Affect Procedures/MDM Diagnostic tests: X-ray of the right middle finger: No acute osseous abnormality. Treatment: Not applicable. Re-evaluation: No neurovascular deficit. Differential diagnosis I have low suspicion for septic joint, flexor tenosynovitis, ostium mellitus, necrotizing fasciitis, subungual hematoma, paronychia, open fracture, pressure sore, gangrene. Final diagnosis: Treated as onychomycosis and possible skin infection. Prescription: Clotrimazole. Keflex. Follow-up with PCP in the next 24-48 hours. Follow-up with hand specialist in the next 24-48 hours. Come back here in the emergency department for any new symptoms or any worsening symptoms. All questions and concerns were answered. Patient and family members verbalized understanding and agreed with plan of care. Hemodynamically stable on discharge. Departure Diagnosis: Primary Impression: Onychomycosis Condition: Stable Additional Instructions: Follow-up with PCP in the next 24-48 hours. Follow-up with hand specialist in the next 24-48 hours. Come back here in the emergency department for any new symptoms or any worsening symptoms. PRICE PEDRAZA Oct 14, 2018 03:01
[2018-10-14] MEDS ORDERED: CLOT30CR24 TOP (06:21)
[2018-10-14] MEDS ORDERED: CEPH-443 PO (06:22)
[2018-10-14 06:29] VITALS: BP 140/87; PULSE 17; RESP 17
== END 2018-10-14 06:30 | disposition home or self-care (01) ==
LOC: FTE 23:24
DX: B35.1 Tinea unguium (principal); J45.909 Unspecified asthma, uncomplicated; Z79.82 Long term (current) use of aspirin
CPT/HCPCS: 73140; Z7502

== ENCOUNTER 2018-11-07 00:13 | Emergency (ER) | payer OTHER ==
[~2018-11-07] VITALS: Ht 157.5 cm; Wt 92.8 kg
[~2018-11-07 00:13] MED LIST changes: +CEPH-443 PO; +CLOT30CR24 TOP
[2018-11-07 00:15] VITALS: Ht 157.5 cm; Wt 92.8 kg
[2018-11-07] MEDS ORDERED: morphine 4 MG/ML VIAL IV STA (02:20)
[2018-11-07] MEDS ORDERED: ONDANSETRON 4 MG INJ IV STA (02:20)
[2018-11-07] MEDS ORDERED: CEFTRIAXONE 1 GM/50 ML (PMX) 50 ML IVPB ONE (02:30)
--- NOTE | 2018-11-07 03:04 | ERD ---
ER Documentation Chief Complaint Chief Complaint LET 2ND FINGER INJ X2WKS AGO; NOT HEALING; HX OF RAYNAUDS HPI 33-year-old female with history of reynods phenomenon presents with complaint of pain in swelling at the tip of the third finger of right hand. States that she gets these infections commonly due to her reynauds. 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 She was just here 2 weeks ago and was placed on a course of Keflex. She states that she finished the course as prescribed but the pain has not resolved. She feels that is also getting more swollen. She states the pain is currently 9 out of 10. States that she was prescribed Empire but has not helped with the pain. Denies any fevers, chills, numbness. ROS All systems reviewed and are negative except as per history of present illness. Medications Home Meds Active Scripts Naloxone HCl nasal spray (Narcan 4 mg/0.1 mL nasal) 4 Mg [place], 4 MG NS .Q2-3MIN for OPIOID OVERDOSE, #2 SPRAY 0 Refills [place] 0.1 mL into one nostril. Repeat with second device into other nostril after 2-3 minutes if no or minimal response Prov:MEKHI RUIZ 11/07/18 Oxycodone HCl/Acetaminophen (Percocet 5-325 mg Tablet) 1 Each Tablet, 1-2 EACH PO Q6 for pain, #15 TAB Prov:MEKHI RUIZ 11/07/18 Sulfamethoxazole/Trimethoprim* (Bactrim Ds* Tablet) 1 Each Tablet, 1 TAB PO BID, #14 TAB Prov:MEKHI RUIZ 11/07/18 Cephalexin* (Keflex*) 500 Mg Capsule, 500 MG PO QID for 7 Days, CAP Prov:MEKHI RUIZ 11/07/18 Cephalexin* (Keflex*) 500 Mg Capsule, 500 MG PO TID for 7 Days, CAP Prov:PRICE PEDRAZA 10/14/18 Clotrimazole* (Clotrimazole* AF) 1% - 30 Gm Cream.gm., 1 APPLIC TOP BID for 7 Days, TUB Prov:PRICE PEDRAZA 10/14/18 Simethicone (GAS RELIEF) 80 Mg Tab.chew, 80 MG PO Q6 for 30 Days, #120 TAB.CHEW Prov:GENESIS GANDARA MD 09/29/18 Sucralfate* (Carafate*) 1 Gm Tab, 1 GM PO Q6 for 35 Days, #140 TAB Prov:GENESIS GANDARA MD 09/29/18 Pantoprazole* (Pantoprazole*) 40 Mg Tablet., 40 MG PO BID@06,18 for 30 Days, #60 TAB 9 Refills Prov:GENESIS GANDARA MD 09/29/18 Calcium Carbonate (CALCIUM CARBONATE) 200 Mg Tab.chew, 500 MG PO Q4 PRN for heart burn for 30 Days, #120 TAB.CHEW 9 Refills Prov:GENESIS GANDARA MD 09/29/18 Hydrocodone Bit-Acetaminophen (Hydrocodone Bit-APAP) 5-325MG Tablet, 1 TAB PO Q6H PRN for .PAIN 4-6 for 7 Days, #20 TAB Prov:GENESIS GANDARA MD 09/29/18 Propranolol Hcl* (Propranolol Hcl*) 10 Mg Tablet, 10 MG PO BID for 30 Days, #60 TAB 9 Refills Prov:GENESIS GANDARA MD 09/29/18 Albuterol Sulfate* (Albuterol Sulfate* Neb) 0.083%-3 Ml Neb, 5 MG NEB Q4 PRN for SHORTNESS OF BREATH, #30 EA Prov:MICKY CHAN MD 08/17/18 Reported Medications Ergocalciferol (Vitamin D2) (VITAMIN D2) 50,000 Unit Capsule, 46287 UNIT PO QMONDAY 09/22/18 Ferrous Sulfate* (Ferrous Sulfate*) 325 Mg Tabec, 325 MG PO BID TK 1 T PO BID 09/22/18 Aspirin Ec (Aspir 81) 81 Mg Tablet.dr, 81 MG PO DAILY, #30 TAB 09/22/18 Azathioprine* (Imuran*) 50 Mg Tab, 50 MG PO BID, TAB 01/07/17 Hydroxychloroquine Sulfate* (Hydroxychloroquine Sulfate*) 200 Mg Tablet, 200 MG PO BID, TAB 01/07/17 Allergies Allergies: Coded Allergies: vancomycin (Verified Allergy, Unknown, 09/22/18) PMhx/Soc History of Surgery: Yes (spleenectomy 11/2016, finger amputation 03/2017) Anesthesia Reaction: No Hx Neurological Disorder: Yes (Raynauds) Hx Respiratory Disorders: Yes (asthma) Hx Cardiac Disorders: No Hx Psychiatric Problems: No Hx Miscellaneous Medical Probl: Yes (Lupus) Hx Alcohol Use: No Hx Substance Use: No Hx Tobacco Use: No Smoking Status: Never smoker FmHx Family History: No diabetes, No coronary disease, No other Physical Exam Vitals Vital Signs Date Temp Pulse Resp B/P (MAP) Pulse Ox O2 O2 Flow FiO2 Time Delivery Rate 11/07/18 98.5 72 16 141/77 100 Room Air 05:10 (98) 11/07/18 98.7 91 19 181/86 100 00:15 (117) Physical Exam Const: No acute distress Head: Atraumatic Eyes: Normal Conjunctiva ENT: Normal External Ears, Nose and Mouth. Neck: Full range of motion. No meningismus. Resp: Clear to auscultation bilaterally Cardio: Regular rate and rhythm, no murmurs Abd: Soft, non tender, non distended. Normal bowel sounds Skin: No petechiae or rashes Back: No midline or flank tenderness Ext: No cyanosis, or edema Neur: Awake and alert Psych: Normal Mood and Affect Third right finger: Erythematous lesion noted over the tip of third right finger with some edema in the DIP. There is tenderness palpation over the flexor area of third right finger as well. There is full range of motion. Compartments are soft and warm. Distal sensation is intact. There is no discharge noted. Result Diagram: 11/07/1822711/07/18227 Results 24 hrs Laboratory Tests Test 11/07/18 02:28 White Blood Count 9.7 10^3/ul Red Blood Count 3.62 10^6/ul Hemoglobin 10.4 g/dl Hematocrit 32.9 % Mean Corpuscular Volume 90.9 fl Mean Corpuscular Hemoglobin 28.7 pg Mean Corpuscular Hemoglobin Concent 31.6 g/dl Red Cell Distribution Width 16.4 % Platelet Count 416 10^3/UL Mean Platelet Volume 9.2 fl Immature Granulocytes % 0.400 % Neutrophils % 75.0 % Lymphocytes % 6.9 % Monocytes % 8.4 % Eosinophils % 8.7 % Basophils % 0.6 % Nucleated Red Blood Cells % 0.2 /100WBC Immature Granulocytes # 0.040 10^3/ul Neutrophils # 7.3 10^3/ul Lymphocytes # 0.7 10^3/ul Monocytes # 0.8 10^3/ul Eosinophils # 0.9 10^3/ul Basophils # 0.1 10^3/ul Nucleated Red Blood Cells # 0.0 10^3/ul Sodium Level 142 mmol/L Potassium Level 3.6 mmol/L Chloride Level 113 mmol/L Carbon Dioxide Level 22 mmol/L Anion Gap 7 Blood Urea Nitrogen 9 mg/dl Creatinine 0.58 mg/dl Est Glomerular Filtrat Rate mL/min > 60 mL/min Glucose Level 161 mg/dl Calcium Level 8.6 mg/dl Total Bilirubin 0.3 mg/dl Direct Bilirubin 0.00 mg/dl Indirect Bilirubin 0.3 mg/dl Aspartate Amino Transf (AST/SGOT) 25 IU/L Alanine Aminotransferase (ALT/SGPT) 28 IU/L Alkaline Phosphatase 126 IU/L C-Reactive Protein 0.8 mg/dl Total Protein 7.3 g/dl Albumin 3.5 g/dl Globulin 3.80 g/dl Albumin/Globulin Ratio 0.92 Current Medications Medications Dose Sig/Mansi Start Time Status Last (Trade) Ordered Route PRN Stop Time Admin Dose Reason Admin Ceftriaxone 50 ml @ ONCE ONCE 11/07/18 DC 11/07/18 Sodium 100 mls/hr IVPB 02:30 02:59 11/07/18 02:59 Morphine 4 mg ONCE STAT 11/07/18 DC 11/07/18 Sulfate IV 02:20 02:59 (morphine) 11/07/18 02:23 Ondansetron 4 mg ONCE STAT 11/07/18 DC 11/07/18 HCl (Zofran IV 02:20 02:59 Inj) 11/07/18 02:23 50 mg ONCE ONCE 11/07/18 DC 11/07/18 Diphenhydrami IV 04:00 04:02 ne HCl 11/07/18 04:01 (Benadryl) Procedures/MDM DIAGNOSTIC IMAGING REPORT Patient: HAYDE MURILLO : 1985 Age: 33 Sex: F MR #: [id number] DOS: 11/07/18 0223 Ordering MD: MEKHI RUIZ Location: [facility] Room/Bed: PROCEDURE: XR Right middle finger CLINICAL INDICATION: infection TECHNIQUE: AP, oblique and lateral views of the right third finger were obtained. 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 No acute fracture or dislocation is identified The joint spaces are preserved. The osseous mineralization is normal. Mild soft tissue swelling is seen. IMPRESSION: Mild soft tissue swelling. No acute osseous abnormality. [facility] Physician Felicitas Date Time Electronically viewed and signed by Nargis Resendez Physician on 11/07/2018 04:28 CS/ CC: MEKHI RUIZ [id number] MDM: Presentation is consistent with soft tissue infection secondary to Raynaud's phenomenon. I discussed the case with my supervising physician who stated that we should do a blood culture, CBC, CMP, and x-rays as well as 1 g of ceftriaxone, the patient can be discharged with another course of Keflex and Bactrim. Low suspicion for an open fracture, acute space infection, tenosynovitis, or any other emergent condition. Because the Empire was not helping resolve her pain I gave her Percocet instead along with Narcan instructions on how to use it. Patient discharged with strict ER precautions. Patient advised to follow up with PMD. All questions answered at discharge. Departure Diagnosis: Primary Impression: Infection of finger Condition: Stable MEKHI RUIZ November 07, 2018 03:04
[2018-11-07] MEDS ORDERED: DIPHENHYDRAMINE 50 MG INJ IV ONE (04:00)
[2018-11-07] MEDS ORDERED: NALO4SPR NS (04:41)
[2018-11-07] MEDS ORDERED: CEPH-443 PO (04:41)
[2018-11-07] MEDS ORDERED: OXYC-279 PO (04:41)
[2018-11-07] MEDS ORDERED: SULF1TAB31 PO (04:41)
[2018-11-07 05:10] VITALS: BP 141/77; PULSE 72; RESP 16
== END 2018-11-07 05:11 | disposition home or self-care (01) ==
LOC: FTE 00:13
DX: L08.9 Local infection of the skin and subcutaneous tissue, unspecified (principal); J45.909 Unspecified asthma, uncomplicated; Z79.82 Long term (current) use of aspirin
CPT/HCPCS: 73140; 80053; 85025; 86140; 87040; 96374; 96375; J0696; J1200; J2270; J2405; Z7502

== ENCOUNTER 2018-11-11 15:27 | Emergency (ER) | payer OTHER ==
[~2018-11-11] VITALS: Ht 167.6 cm; Wt 92.5 kg
[~2018-11-11 15:27] MED LIST changes: +NALO4SPR NS; +OXYC-279 PO; +SULF1TAB31 PO
[2018-11-11 15:31] VITALS: Ht 167.6 cm; Wt 92.5 kg
[2018-11-11] MEDS ORDERED: SOD CHLORIDE 0.9% 1,000 ML IV ONE (18:00)
[2018-11-11] MEDS ORDERED: METOCLOPRAMIDE 10 MG INJ IV ONE (18:00)
[2018-11-11] MEDS ORDERED: DIPHENHYDRAMINE 50 MG INJ IV ONE (18:00)
--- NOTE | 2018-11-11 18:53 | ERD ---
ER Documentation Chief Complaint Chief Complaint Complains of a headache with vomiting x 2 days HPI 33-year-old female patient with a past medical history of hypertension, lupus, rheumatoid arthritis, raynaud's syndrome, splenic infarcts presents to the ED complaining of headache with vomiting that started about last night after taking nifedipine for the first time. States that her health assistant changed her propranolol to nifedipine because he felt that it was going to treat her raynauds better. Patient reports that she still has a constant bilateral temporal headache that was a gradual onset as well as feelings of palpitations. Rates her pain a 8/10. Reports that she took Tylenol and Advil without any relief. Denies any chest pain, shortness of breath, dyspnea on exertion, orthopnea, diarrhea, abdominal pain, constipation. Patient reports that she has had a few episodes of nonbilious nonbloody vomiting. Patient reports that she has good follow-up care for her infected left index finger and has a follow-up MRI with her health assistant coming up. Denies any head or neck injuries. ROS All systems reviewed and are negative except as per history of present illness. Medications Home Meds Active Scripts Naloxone HCl nasal spray (Narcan 4 mg/0.1 mL nasal) 4 Mg [place], 4 MG NS .Q2-3MIN for OPIOID OVERDOSE, #2 SPRAY 0 Refills [place] 0.1 mL into one nostril. Repeat with second device into other nostril after 2-3 minutes if no or minimal response Prov:MEKHI RUIZ 11/07/18 Oxycodone HCl/Acetaminophen (Percocet 5-325 mg Tablet) 1 Each Tablet, 1-2 EACH PO Q6 for pain, #15 TAB Prov:MEKHI RUIZ 11/07/18 Sulfamethoxazole/Trimethoprim* (Bactrim Ds* Tablet) 1 Each Tablet, 1 TAB PO BID, #14 TAB Prov:MEKHI RUIZ 11/07/18 Cephalexin* (Keflex*) 500 Mg Capsule, 500 MG PO QID for 7 Days, CAP Prov:MEKHI RUZI 11/07/18 Cephalexin* (Keflex*) 500 Mg Capsule, 500 MG PO TID for 7 Days, CAP Prov:PASILAPRICE LAM 10/14/18 Clotrimazole* (Clotrimazole* AF) 1% - 30 Gm Cream.gm., 1 APPLIC TOP BID for 7 Days, TUB Prov:PRICE PEDRAZA 10/14/18 Simethicone (GAS RELIEF) 80 Mg Tab.chew, 80 MG PO Q6 for 30 Days, #120 TAB.CHEW Prov:GENESIS GANDARA MD 09/29/18 Sucralfate* (Carafate*) 1 Gm Tab, 1 GM PO Q6 for 35 Days, #140 TAB Prov:GENESIS GANDARA MD 09/29/18 Pantoprazole* (Pantoprazole*) 40 Mg Tablet., 40 MG PO BID@06,18 for 30 Days, #60 TAB 9 Refills Prov:GENESIS GANDARA MD 09/29/18 Calcium Carbonate (CALCIUM CARBONATE) 200 Mg Tab.chew, 500 MG PO Q4 PRN for heart burn for 30 Days, #120 TAB.CHEW 9 Refills Prov:GENESIS GANDARA MD 09/29/18 Hydrocodone Bit-Acetaminophen (Hydrocodone Bit-APAP) 5-325MG Tablet, 1 TAB PO Q6H PRN for .PAIN 4-6 for 7 Days, #20 TAB Prov:GENESIS GANDARA MD 09/29/18 Propranolol Hcl* (Propranolol Hcl*) 10 Mg Tablet, 10 MG PO BID for 30 Days, #60 TAB 9 Refills Prov:GENESIS GANDARA MD 09/29/18 Albuterol Sulfate* (Albuterol Sulfate* Neb) 0.083%-3 Ml Neb, 5 MG NEB Q4 PRN for SHORTNESS OF BREATH, #30 EA Prov:MICKY CHAN MD 08/17/18 Reported Medications Ergocalciferol (Vitamin D2) (VITAMIN D2) 50,000 Unit Capsule, 43859 UNIT PO QMONDAY 09/22/18 Ferrous Sulfate* (Ferrous Sulfate*) 325 Mg Tabec, 325 MG PO BID TK 1 T PO BID 09/22/18 Aspirin Ec (Aspir 81) 81 Mg Tablet.dr, 81 MG PO DAILY, #30 TAB 09/22/18 Azathioprine* (Imuran*) 50 Mg Tab, 50 MG PO BID, TAB 01/07/17 Hydroxychloroquine Sulfate* (Hydroxychloroquine Sulfate*) 200 Mg Tablet, 200 MG PO BID, TAB 01/07/17 Allergies Allergies: Coded Allergies: vancomycin (Verified Allergy, Unknown, 09/22/18) PMhx/Soc Medical and Surgical Hx: pt denies Medical Hx, pt denies Surgical Hx History of Surgery: Yes (spleenectomy 11/2016, finger amputation 03/2017) Anesthesia Reaction: No Hx Neurological Disorder: Yes (Raynauds) Hx Respiratory Disorders: Yes (asthma) Hx Cardiac Disorders: No Hx Psychiatric Problems: No Hx Miscellaneous Medical Probl: Yes (Lupus, RHEUMATOID ARTHRITIS) Hx Alcohol Use: No Hx Substance Use: No Hx Tobacco Use: No Smoking Status: Never smoker FmHx Family History: No diabetes, No coronary disease Physical Exam Vitals Vital Signs Date Temp Pulse Resp B/P (MAP) Pulse Ox O2 O2 Flow FiO2 Time Delivery Rate 11/11/18 99.5 115 20 162/80 98 15:31 (107) Physical Exam Const: [id number]-puvvdinum, well-nourished. In no acute distress. Head: Atraumatic, normocephalic. No hematoma. No nuno sign. Eyes: Normal Conjunctiva without injection. No purulent discharge. PERRLA. EOMI ENT: Normal external ear. Ear canal without erythema. Tympanic membrane pearly brown without effusion or bulging. No hemotympanum. Nasal canal clear with normal turbinates. Moist oropharynx without tonsillar exudates. Non-erythematous pharynx. Uvula midline. No drooling. No trismus. Neck: No cervical midline tenderness. Full range of motion. No meningismus. No cervical lymphadenopathy. No JVD. Resp: Clear to auscultation bilaterally. No wheezing, rhonchi, rales, or crackles. No accessory muscle use. No retractions. Cardio: Regular rate and rhythm. No murmurs, rubs or gallops. Abd: Soft, non tender, non distended. Normal bowel sounds. No palpable masses. No rebound tenderness. No guarding. Negative McBurney's Point. Negative Alberto's Sign. Skin: Normal skin turgor. No petechiae or rashes Back: No midline tenderness. No CVA tenderness. Ext: No cyanosis, or edema. Distal pulses intact bilaterally. Neur: Awake and alert. Normal gait. Normal coordination. Cranial Nerves II- VII intact. Normal finger to nose. Muscle strength 5/5. Sensation intact. Psych: Normal Mood and Affect Results 24 hrs Laboratory Tests Test 11/11/18 18:27 11/11/18 18:28 POC Beta HCG, Qualitative NEGATIVE Bedside Urine pH (LAB) 6.0 Bedside Urine Protein (LAB) 2+ Bedside Urine Glucose (UA) Negative Bedside Urine Ketones (LAB) Negative Bedside Urine Blood 1+ Bedside Urine Nitrite (LAB) Negative Bedside Urine Leukocyte Esterase (L 1+ Current Medications Medications Dose Sig/Amnsi Start Time Status Last (Trade) Ordered Route PRN Stop Time Admin Dose Reason Admin 10 mg ONCE ONCE 11/11/18 Cancel Metoclopramid IV 18:00 e HCl 11/11/18 18:01 (Reglan) 25 mg ONCE ONCE 11/11/18 Cancel Diphenhydrami IV 18:00 ne HCl 11/11/18 18:01 (Benadryl) Sodium 1,000 ml @ Q1H ONCE 11/11/18 11/11/18 Chloride 1,000 mls/hr IV 18:00 18:36 11/11/18 18:59 Procedures/MDM 33-year-old female patient with a past medical history of hypertension, lupus, rheumatoid arthritis, Raynaud's disease, splenic infarct presents to the ED complaining of a headache, vomiting and palpitations. Patient is slightly tachycardic at 115. EKG was ordered to further evaluate patient. Patient discussed with my supervising physicians, Dr. Kimbrough and Dr. Rodriguez and we agreed to order the CT of the brain without contrast. EKG reviewed and interpreted by Dr. Kimbrough and Dr. Rodriguez Rate/Rhythm: [93 bpm, Normal Sinus Rhythm] No ectopy, no ST elevations, normal axis. QRS, ST, T-waves: [No changes consistent w/ acute ischemia] Impression: [No evidence of ischemia or arrhythmia] Low suspicion for acute myocardial infarction, pneumothorax, pneumonia, cardiac tamponade, Ajzot-Gmtlduzjs-Aqadn Syndrome, Brugada Syndrome, pulmonary embolism, AAA, aortic dissection, thoracic aortic dissection, endocarditis, myocarditis, pericarditis, cocaine-related ischemia, Boerhaave's syndrome, cardiac dysrhythmias,meningitis, intracranial bleed, seizure, stroke, TIA or other emergent conditions. Patient was given Ativan 1 mg IV here in the ED. Pending CT of the brain, this patient has been signed out to my supervising physician, Dr. Laila Kimbrough who will be now managing the patient. ISHA DOMINGUEZ PA-C November 11, 2018 18:52
[2018-11-11] MEDS ORDERED: LORAZEPAM 2 MG INJ IV ONE (19:00)
[2018-11-11] MEDS ORDERED: morphine 2 MG INJ IV STA (20:14)
[2018-11-11] MEDS ORDERED: ONDANSETRON 4 MG INJ IV STA (20:14)
[2018-11-11] MEDS ORDERED: BUTA1CAP38 PO (20:37)
[2018-11-11 20:53] VITALS: BP 128/67; PULSE 85; RESP 17
== END 2018-11-11 20:53 | disposition home or self-care (01) ==
LOC: FTE 15:27
DX: R51 Headache (principal); I10 Essential (primary) hypertension; J45.909 Unspecified asthma, uncomplicated; R11.10 Vomiting, unspecified; R00.2 Palpitations; Z79.82 Long term (current) use of aspirin
CPT/HCPCS: 70450; 81003; 81025; 93005; 96374; 96375; J2060; J2270; J2405; J7030; Z7502

== ENCOUNTER 2018-11-14 14:55 | Inpatient (IN) | payer OTHER ==
[~2018-11-14] VITALS: Ht 162.6 cm; Wt 92.3 kg
[~2018-11-14 14:55] MED LIST changes: +BUTA1CAP38 PO
[2018-11-14] MEDS ORDERED: PANTOPRAZOLE 40 MG INJ IV STA (16:44)
[2018-11-14] MEDS ORDERED: SOD CHLORIDE 0.9% 1,000 ML IV STA (16:44)
[2018-11-14] MEDS ORDERED: ONDANSETRON 4 MG INJ IV STA (16:44)
[2018-11-14] MEDS ORDERED: AZAT50TA31 PO (17:46)
[2018-11-14] MEDS ORDERED: PRED5TAB PO (17:47)
[2018-11-14] MEDS ORDERED: AMLO5TAB4 PO (17:47)
[2018-11-14] MEDS ORDERED: CALC-686 PO (17:48)
--- NOTE | 2018-11-14 17:51 | ERD ---
ER Documentation Chief Complaint Chief Complaint vomited blood x 1 today , h/o gastritis HPI Patient is a 33-year-old female with a history of lupus and gastritis who presents with vomiting blood. She said that she felt nausea this morning and then started with vomiting. She thought that it might be related to food that she ate. She noticed however that there was a large blood clot after she vomited. She has had 2 episodes of vomiting today and says that there was no blood on the second that she saw. She is on pantoprazole. Upon review of old medical records the patient has multiple visits to the ER for various complain ts. Her primary doctor is at the [facility]. ROS All systems reviewed and are negative except as per history of present illness. Medications Home Meds Active Scripts Oxycodone HCl/Acetaminophen (Percocet 5-325 mg Tablet) 1 Each Tablet, 1-2 EACH PO Q6 for pain, #15 TAB Prov:MEKHI RUIZ 11/07/18 Sulfamethoxazole/Trimethoprim* (Bactrim Ds* Tablet) 1 Each Tablet, 1 TAB PO BID, #14 TAB Prov:MEKHI RUIZ 11/07/18 Cephalexin* (Keflex*) 500 Mg Capsule, 500 MG PO QID for 7 Days, CAP Prov:MEKHI RUIZ 11/07/18 Sucralfate* (Carafate*) 1 Gm Tab, 1 GM PO Q6 for 35 Days, #140 TAB Prov:GENESIS GANDARA MD 09/29/18 Pantoprazole* (Pantoprazole*) 40 Mg Tablet.dr, 40 MG PO BID@06,18 for 30 Days, #60 TAB 9 Refills Prov:GENESIS GANDARA MD 09/29/18 Reported Medications Calcium Carbonate/Vitamin D3 (Calcium 500 mg Chewable Tablet) 1 Each Tab.chew, 1 EACH PO DAILY, TAB.CHEW 11/14/18 Prednisone* (Prednisone*) 5 Mg Tab, 5 MG PO DAILY, TAB 11/14/18 Amlodipine Besylate* (Norvasc*) 5 Mg Tablet, 5 MG PO BID, TAB 11/14/18 Azathioprine* (Imuran*) 50 Mg Tab, 100 MG PO DAILY, TAB 11/14/18 Ergocalciferol (Vitamin D2) (VITAMIN D2) 50,000 Unit Capsule, 01679 UNIT PO QMONDAY 09/22/18 Aspirin Ec (Aspir 81) 81 Mg Tablet.dr, 81 MG PO DAILY, #30 TAB 09/22/18 Discontinued Reported Medications Ferrous Sulfate* (Ferrous Sulfate*) 325 Mg Tabec, 325 MG PO BID TK 1 T PO BID 09/22/18 Azathioprine* (Imuran*) 50 Mg Tab, 50 MG PO BID, TAB 01/07/17 Hydroxychloroquine Sulfate* (Hydroxychloroquine Sulfate*) 200 Mg Tablet, 200 MG PO BID, TAB 01/07/17 Discontinued Scripts Kntasinmjm-Dtlpxczoykxfa-Yxylzeog* (Fioricet*) 50-300-40 Mg Capsule, 1 CAP PO BID PRN for HEADACHE, #10 CAP Prov:MELCHOR MELENDEZ MD 11/11/18 Naloxone HCl nasal spray (Narcan 4 mg/0.1 mL nasal) 4 Mg [place], 4 MG NS .Q2-3MIN for OPIOID OVERDOSE, #2 SPRAY 0 Refills [place] 0.1 mL into one nostril. Repeat with second device into other nostril after 2-3 minutes if no or minimal response Prov:MEKHI RUIZ 11/07/18 Cephalexin* (Keflex*) 500 Mg Capsule, 500 MG PO TID for 7 Days, CAP Prov:PASILAPRICE LAM 10/14/18 Clotrimazole* (Clotrimazole* AF) 1% - 30 Gm Cream.gm., 1 APPLIC TOP BID for 7 Days, TUB Prov:PRICE PEDRAZA 10/14/18 Simethicone (GAS RELIEF) 80 Mg Tab.chew, 80 MG PO Q6 for 30 Days, #120 TAB.CHEW Prov:GENESIS GANDARA MD 09/29/18 Calcium Carbonate (CALCIUM CARBONATE) 200 Mg Tab.chew, 500 MG PO Q4 PRN for heart burn for 30 Days, #120 TAB.CHEW 9 Refills Prov:GENESIS GANDARA MD 09/29/18 Hydrocodone Bit-Acetaminophen (Hydrocodone Bit-APAP) 5-325MG Tablet, 1 TAB PO Q6H PRN for .PAIN 4-6 for 7 Days, #20 TAB Prov:GENESIS GANDARA MD 09/29/18 Propranolol Hcl* (Propranolol Hcl*) 10 Mg Tablet, 10 MG PO BID for 30 Days, #60 TAB 9 Refills Prov:GENESIS GANDARA MD 09/29/18 Albuterol Sulfate* (Albuterol Sulfate* Neb) 0.083%-3 Ml Neb, 5 MG NEB Q4 PRN for SHORTNESS OF BREATH, #30 EA Prov:MICKY CHAN MD 08/17/18 Allergies Allergies: Coded Allergies: vancomycin (Verified Allergy, Unknown, 11/14/18) PMhx/Soc History of Surgery: Yes (spleenectomy 11/2016, finger amputation 03/2017) Anesthesia Reaction: No Hx Neurological Disorder: Yes (Raynauds) Hx Respiratory Disorders: Yes (asthma) Hx Cardiac Disorders: No Hx Psychiatric Problems: No Hx Miscellaneous Medical Probl: Yes (Lupus, RHEUMATOID ARTHRITIS) Hx Alcohol Use: No Hx Substance Use: No Hx Tobacco Use: No Smoking Status: Never smoker FmHx Family History: diabetes Physical Exam Vitals Vital Signs Date Temp Pulse Resp B/P (MAP) Pulse Ox O2 O2 Flow FiO2 Time Delivery Rate 11/14/18 98.0 89 18 161/76 99 14:59 (104) Physical Exam Const: Mild distress Head: Atraumatic Eyes: Normal Conjunctiva ENT: Normal External Ears, Nose and Mouth. Neck: Full range of motion. No meningismus. Resp: Clear to auscultation bilaterally Cardio: Regular rate and rhythm, no murmurs Abd: Soft, non tender, non distended. Normal bowel sounds Skin: Pale skin Back: No midline or flank tenderness Ext: No cyanosis, or edema Neur: Awake and alert Psych: Normal Mood and Affect Result Diagram: 11/14/18 1700 11/14/18 1700 Results 24 hrs Laboratory Tests Test 11/14/18 17:00 11/14/18 17:10 White Blood Count 9.3 10^3/ul Red Blood Count 2.85 10^6/ul Hemoglobin 7.9 g/dl Hematocrit 25.8 % Mean Corpuscular Volume 90.5 fl Mean Corpuscular Hemoglobin 27.7 pg Mean Corpuscular Hemoglobin Concent 30.6 g/dl Red Cell Distribution Width 15.5 % Platelet Count 434 10^3/UL Mean Platelet Volume 9.4 fl Immature Granulocytes % 0.300 % Neutrophils % 67.5 % Lymphocytes % 14.0 % Monocytes % 13.7 % Eosinophils % 3.9 % Basophils % 0.6 % Nucleated Red Blood Cells % 0.8 /100WBC Immature Granulocytes # 0.030 10^3/ul Neutrophils # 6.3 10^3/ul Lymphocytes # 1.3 10^3/ul Monocytes # 1.3 10^3/ul Eosinophils # 0.4 10^3/ul Basophils # 0.1 10^3/ul Nucleated Red Blood Cells # 0.1 10^3/ul Prothrombin Time 14.5 Sec Prothrombin Time Ratio 1.1 INR International Normalized Ratio 1.12 Activated Partial Thromboplast Time 27.2 Sec Sodium Level 140 mmol/L Potassium Level 4.1 mmol/L Chloride Level 111 mmol/L Carbon Dioxide Level 23 mmol/L Anion Gap 6 Blood Urea Nitrogen 22 mg/dl Creatinine 0.66 mg/dl Est Glomerular Filtrat Rate mL/min > 60 mL/min Glucose Level 94 mg/dl Calcium Level 8.7 mg/dl Total Bilirubin 0.4 mg/dl Direct Bilirubin 0.00 mg/dl Indirect Bilirubin 0.4 mg/dl Aspartate Amino Transf (AST/SGOT) 27 IU/L Alanine Aminotransferase (ALT/SGPT) 27 IU/L Alkaline Phosphatase 100 IU/L Troponin I < 0.012 ng/ml Total Protein 6.8 g/dl Albumin 3.4 g/dl Globulin 3.40 g/dl Albumin/Globulin Ratio 1.00 POC Beta HCG, Qualitative NEGATIVE Current Medications Medications Dose Sig/Mansi Start Time Status Last (Trade) Ordered Route PRN Stop Time Admin Dose Reason Admin Sodium 1,000 ml @ Q1H STAT 11/14/18 DC 11/14/18 Chloride 1,000 mls/hr IV 16:44 17:08 11/14/18 17:43 40 mg ONCE STAT 11/14/18 DC 11/14/18 Pantoprazole IV 16:44 17:08 (Protonix 11/14/18 16:45 Iv) Ondansetron 4 mg ONCE STAT 11/14/18 DC 11/14/18 HCl (Zofran IV 16:44 17:08 Inj) 11/14/18 16:45 Sodium 0 ml @ 0 Q0M ONCE 11/14/18 DC 11/14/18 Chloride mls/hr IV 17:52 18:39 11/14/18 17:54 Ondansetron 4 mg BRIDGE ORDER 11/14/18 HCl (Zofran PRN IV 19:00 Inj) NAUSEA/VOMITI 11/15/18 18:59 NG 650 mg ER BRIDGE 11/14/18 Acetaminophen PRN PO 19:00 (Tylenol .MILD PAIN 11/15/18 18:59 Tab) 1-3 OR TEMP Procedures/MDM EKG read by me: Rate/Rhythm: Regular rate and rhythm at a normal rate Intervals: Normal Impression: No evidence of ischemia or arrhythmia Patient is a 33-year-old female with lupus and gastritis who presents with v omiting blood. I am concerned for upper GI bleed. She showed me the blood clots which were significant. The patient has a hemoglobin of 7.9 and I will transfuse 2 units of packed red blood cells. The patient has a [place] bleeding score of 8 and is a high risk for continued bleeding. She is on baby aspirin but no other blood thinners. I have ordered 2 units of packed red blood cells for transfusion and she may also require GI consultation and possibly endoscopy versus colonoscopy while admitted to the hospital. I spoke with the panel team for admission to a medical surgical bed. Critical Care: Time: 35 minutes excluding all billable procedures. Treatments/Evaluations: Close monitoring and treatment of unstable vital signs, cardiorespiratory, and neurologic status, while maintaining tight balance of fluid, respiratory, and cardiac interventions. [place] Bleeding Score (GBS) from [facility] on 11/14/2018 All calculations should be rechecked by clinician prior to use RESULT SUMMARY: 8 points A GBS greater than zero suggests a High Risk GI bleed that is likely to require medical intervention: transfusion, endoscopy, or surgery. A higher GBS also correlated with a higher likelihood of needing intervention (scores ?6 are associated with >50% risk of needing intervention) INPUTS: Hemoglobin > 7.9 g/dL BUN > 22 mg/dL Initial systolic BP > 161 mm Hg Sex > 1 = Female Heart rate ?100 > 0 = No Melena present > 0 = No Recent syncope > 0 = No Hepatic disease history > 0 = No Cardiac failure present > 0 = No Departure Diagnosis: Primary Impression: Anemia Anemia type: unspecified type Qualified Codes: D64.9 - Anemia, unspecified Additional Impression: Hematemesis Nausea presence: with nausea Qualified Codes: K92.0 - Hematemesis Condition: HAYLEY Duff MD November 14, 2018 17:51
[2018-11-14] MEDS ORDERED: SOD CHLORIDE 0.9% 0 ML IV ONE (17:52)
[2018-11-14] MEDS ORDERED: ACETAMINOPHEN 325 MG TAB PO PRN ×2 (19:00→22:30)
[2018-11-14] MEDS ORDERED: ONDANSETRON 4 MG INJ IV PRN ×2 (19:00→22:30)
[2018-11-14 20:20] VITALS: BP 124/67; PULSE 67; RESP 18
[2018-11-14 21:00] VITALS: Ht 162.6 cm; Wt 92.3 kg
--- NOTE | 2018-11-14 22:10 | HP ---
Date/Time of Note Date/Time of Note DATE: 11/14/18 TIME: 22:10 Assessment/Plan VTE Prophylaxis Pharmacological prophylaxis: heparin Lines/Catheters IV [facility] Type (from [facility]): Saline Lock Assessment/Plan Assessment/Plan 1. Hematemesis -Patient had an EGD and colonoscopy last month with a finding of severe gastritis, varices and colitis -Hemoglobin dropped from 10.4 to 7.9 in about 6 weeks. -PPI -GI consult 2. History of lupus, Pj's and rheumatoid arthritis: Patient with significant hand deformity. Continue azathioprine and prednisone 3. Severe gastritis: PPI. See #1 4. Right middle finger lesion: Patient has been on Bactrim and Keflex. She completed 14 days course and then additional 1 week course was ordered, which she has not finished. -Continue antibiotics 5. History of splenic infarcts, status post splenectomy: No acute issue Result Diagram: 11/14/18 1700 11/14/18 1700 Results 24hrs Laboratory Tests Test 11/14/18 17:00 11/14/18 17:10 White Blood Count 9.3 Red Blood Count 2.85 #L Hemoglobin 7.9 #L Hematocrit 25.8 #L Mean Corpuscular Volume 90.5 Mean Corpuscular Hemoglobin 27.7 L Mean Corpuscular Hemoglobin Concent 30.6 L Red Cell Distribution Width 15.5 H Platelet Count 434 H Mean Platelet Volume 9.4 Immature Granulocytes % 0.300 Neutrophils % 67.5 Lymphocytes % 14.0 L Monocytes % 13.7 H Eosinophils % 3.9 Basophils % 0.6 Nucleated Red Blood Cells % 0.8 H Immature Granulocytes # 0.030 Neutrophils # 6.3 Lymphocytes # 1.3 Monocytes # 1.3 H Eosinophils # 0.4 Basophils # 0.1 Nucleated Red Blood Cells # 0.1 H Prothrombin Time 14.5 Prothrombin Time Ratio 1.1 INR International Normalized Ratio 1.12 Activated Partial Thromboplast Time 27.2 Sodium Level 140 Potassium Level 4.1 Chloride Level 111 H Carbon Dioxide Level 23 Anion Gap 6 Blood Urea Nitrogen 22 H Creatinine 0.66 Est Glomerular Filtrat Rate mL/min > 60 Glucose Level 94 Calcium Level 8.7 Total Bilirubin 0.4 Direct Bilirubin 0.00 Indirect Bilirubin 0.4 Aspartate Amino Transf (AST/SGOT) 27 Alanine Aminotransferase (ALT/SGPT) 27 Alkaline Phosphatase 100 Troponin I < 0.012 Total Protein 6.8 Albumin 3.4 Globulin 3.40 H Albumin/Globulin Ratio 1.00 POC Beta HCG, Qualitative NEGATIVE HPI/ROS Admit Date/Time Admit Date/Time November 14, 2018 at 18:36 Hx of Present Illness This is a 33-year-old female with a history of lupus, Pj's, rheumatoid arthritis, splenic infarct status post splenectomy, severe gastritis, varices, colitis. Patient presented to ER complaining of vomiting blood with clots x 1 day. Patient was admitted here last month for abdominal pain. At that time she underwent EGD and colonoscopy with a finding of severe gastritis, varices and colitis. Hemoglobin at the time of discharge was 10.4 and when she presented to ER today was 7.9. PMH/Family/Social Past Medical History Medical History: other (See HPI) Medications Current Medications Ondansetron HCl (Zofran Inj) 4 mg BRIDGE ORDER PRN IV NAUSEA/VOMITING; Start 11/14/18 at 19:00; Stop 11/15/18 at 18:59 Acetaminophen (Tylenol Tab) 650 mg ER BRIDGE PRN PO .MILD PAIN 1-3 OR TEMP; Start 11/14/18 at 19:00; Stop 11/15/18 at 18:59 Coded Allergies: vancomycin (Verified Allergy, Unknown, 11/14/18) Past Surgical History Past Surgical Hx: other (See HPI) Family History Significant Family History: no pertinent family hx Social History Alcohol Use: none Smoking Status: Never smoker Drug Use: none Exam/Review of Systems Vital Signs Vitals Vital Signs Date Temp Pulse Resp B/P (MAP) Pulse Ox O2 O2 Flow FiO2 Time Delivery Rate 11/14/18 98.6 67 18 124/67 95 20:20 (86) 11/14/18 Room Air 19:32 Exam Constitutional: alert, oriented, well developed Head: normocephalic, atraumatic Eyes: EOMI, PERRL Respiratory: clear to auscultation, normal air movement Cardiovascular: regular rate and rhythm, nl pulses Gastrointestinal: soft, non-tender Extremities: other (Bilateral hand deformity. There is a small lesion at the tip of the right middle finger) MEKHI GOODMAN MD November 14, 2018 22:10
[2018-11-14] MEDS ORDERED: NACL 0.9% 3 ML SYG IV SCH (22:30)
[2018-11-14] MEDS ORDERED: ALBUTEROL/IPRATROPIUM (NEB) 3 ML AMP HHN PRN (22:30)
[2018-11-14] MEDS: TRIMETHOPRIM/SULFAMETHOX (DS) TAB PO SCH (23:58)
[2018-11-15] VITALS (12 sets, daily range): BP systolic 96–133; BP diastolic 56–78; PULSE 56–79; RESP 10–18
[2018-11-15] MEDS: SUCRALFATE 1 GM TAB PO SCH ×4 (00:19→18:38)
[2018-11-15] MEDS: OXYCODONE/ACETAMINOPHEN (5/325) TAB PO PRN ×2 (04:15→11:46)
[2018-11-15] MEDS ORDERED: PANTOPRAZOLE 40 MG INJ IV SCH (06:00)
[2018-11-15] MEDS: TRIMETHOPRIM/SULFAMETHOX (DS) TAB PO SCH ×2 (08:48→19:54)
[2018-11-15] MEDS ORDERED: AMLODIPINE 5 MG TAB PO SCH (09:00)
[2018-11-15] MEDS ORDERED: predniSONE 5 MG TAB PO SCH (09:00)
[2018-11-15] MEDS: AZATHIOPRINE 50 MG TAB PO SCH (09:57)
--- NOTE | 2018-11-15 12:27 | PN ---
Date/Time of Note Date/Time of Note DATE: 11/15/18 TIME: 12:25 Assessment/Plan VTE Prophylaxis SCD applied (from Nsg): Yes SCD contraindicated: low risk/ambulating Pharmacological prophylaxis: NA/contraindicated Pharm contraindication: bleeding, blood coag disorder, surgical contra Lines/Catheters IV Catheter Type (from Nrs): Saline Lock Urinary Cath still in place: No Assessment/Plan Hospital Course Assessment and plan: 1. GI bleed likely upper, consult GI 2. Recent GI bleed colitis. H. pylori positive but pathology negative. 3. 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 History of nonsteroidal use? 4. Chronic major depression consulted behavioral health 5. Anemia possible acute blood loss stable observe transfuse if less than 7 6. Adjustment disorder 7. Splenectomy status; may need vaccines updated Subjective: Less nausea vomiting. No dyspnea fever or dysuria or hematuria Objective: Vital signs stable Physical exam No pallor adenopathy Regular no tachypnea Bowel sounds present nontender nausea no RG No edema Result Diagram: 11/15/18 0611/15/18 06 Results 24hrs Laboratory Tests Test 11/14/18 17:00 11/14/18 17:10 11/15/18 06:01 11/15/18 06:56 White Blood Count 9.3 7.8 Red Blood Count 2.85 #L 3.19 L Hemoglobin 7.9 #L 9.0 L Hematocrit 25.8 #L 28.5 L Mean Corpuscular 90.5 89.3 Volume Mean Corpuscular 27.7 L 28.2 L Hemoglobin Mean Corpuscular 30.6 L 31.6 L Hemoglobin Concen t Red Cell 15.5 H 15.1 H Distribution Width Platelet Count 434 H 407 Mean Platelet 9.4 9.6 Volume Immature 0.300 0.300 Granulocytes % Neutrophils % 67.5 44.0 Lymphocytes % 14.0 L 20.7 Monocytes % 13.7 H 18.9 H Eosinophils % 3.9 15.1 H Basophils % 0.6 1.0 Nucleated Red 0.8 H 0.8 H Blood Cells % Immature 0.030 0.020 Granulocytes # Neutrophils # 6.3 3.4 Lymphocytes # 1.3 1.6 Monocytes # 1.3 H 1.5 H Eosinophils # 0.4 1.2 H Basophils # 0.1 0.1 Nucleated Red 0.1 H 0.1 H Blood Cells # Prothrombin Time 14.5 Prothrombin Time 1.1 Ratio INR International 1.12 Normalized Ratio Activated 27.2 Partial Thrombopl ast Time Sodium Level 140 141 Potassium Level 4.1 3.8 Chloride Level 111 H 113 H Carbon Dioxide 23 23 Level Anion Gap 6 5 Blood Urea 22 H 16 Nitrogen Creatinine 0.66 0.68 Est Glomerular > 60 > 60 Filtrat Rate mL/min Glucose Level 94 75 Calcium Level 8.7 8.3 L Total Bilirubin 0.4 0.9 Direct Bilirubin 0.00 0.00 Indirect 0.4 0.9 Bilirubin Aspartate Amino 27 27 Transf (AST/SGOT) Alanine 27 32 Aminotransferase (ALT/SGPT) Alkaline 100 92 Phosphatase Troponin I < 0.012 Total Protein 6.8 6.0 L Albumin 3.4 2.8 L Globulin 3.40 H 3.20 Albumin/Globulin 1.00 0.87 Ratio POC Beta HCG, NEGATIVE Qualitative Phosphorus Level 4.0 Magnesium Level 2.0 Lab Scanned BLOOD TRANSFUSIO Report N Exam/Review of Systems Exam Vitals Vital Signs Date Temp Pulse Resp B/P (MAP) Pulse Ox O2 O2 Flow FiO2 Time Delivery Rate 11/15/18 98.3 68 18 113/59 96 Room Air 08:00 (77) Intake and Output 11/14/18 11/14/18 11/15/18 1515:00 23:00 07:00 IntakeIntake Total 350 ml BalanceBalance 350 ml Results Results 24hrs Laboratory Tests Test 11/14/18 17:00 11/14/18 17:10 11/15/18 06:01 11/15/18 06:56 White Blood Count 9.3 7.8 Red Blood Count 2.85 #L 3.19 L Hemoglobin 7.9 #L 9.0 L Hematocrit 25.8 #L 28.5 L Mean Corpuscular 90.5 89.3 Volume Mean Corpuscular 27.7 L 28.2 L Hemoglobin Mean Corpuscular 30.6 L 31.6 L Hemoglobin Concen t Red Cell 15.5 H 15.1 H Distribution Width Platelet Count 434 H 407 Mean Platelet 9.4 9.6 Volume Immature 0.300 0.300 Granulocytes % Neutrophils % 67.5 44.0 Lymphocytes % 14.0 L 20.7 Monocytes % 13.7 H 18.9 H Eosinophils % 3.9 15.1 H Basophils % 0.6 1.0 Nucleated Red 0.8 H 0.8 H Blood Cells % Immature 0.030 0.020 Granulocytes # Neutrophils # 6.3 3.4 Lymphocytes # 1.3 1.6 Monocytes # 1.3 H 1.5 H Eosinophils # 0.4 1.2 H Basophils # 0.1 0.1 Nucleated Red 0.1 H 0.1 H Blood Cells # Prothrombin Time 14.5 Prothrombin Time 1.1 Ratio INR International 1.12 Normalized Ratio Activated 27.2 Partial Thrombopl ast Time Sodium Level 140 141 Potassium Level 4.1 3.8 Chloride Level 111 H 113 H Carbon Dioxide 23 23 Level Anion Gap 6 5 Blood Urea 22 H 16 Nitrogen Creatinine 0.66 0.68 Est Glomerular > 60 > 60 Filtrat Rate mL/min Glucose Level 94 75 Calcium Level 8.7 8.3 L Total Bilirubin 0.4 0.9 Direct Bilirubin 0.00 0.00 Indirect 0.4 0.9 Bilirubin Aspartate Amino 27 27 Transf (AST/SGOT) Alanine 27 32 Aminotransferase (ALT/SGPT) Alkaline 100 92 Phosphatase Troponin I < 0.012 Total Protein 6.8 6.0 L Albumin 3.4 2.8 L Globulin 3.40 H 3.20 Albumin/Globulin 1.00 0.87 Ratio POC Beta HCG, NEGATIVE Qualitative Phosphorus Level 4.0 Magnesium Level 2.0 Lab Scanned BLOOD TRANSFUSIO Report N Medications Medication Current Medications IV Flush (NS 3 ml) 3 ml PER PROTOCOL IV ; Start 11/14/18 at 22:30 Acetaminophen (Tylenol Tab) 650 mg Q6H PRN PO .PAIN 1-3 OR TEMP; Start 11/14/18 at 22:30 Pantoprazole (Protonix Iv) 40 mg DAILY@0600,1800 IV Last administered on 11/15/18at 05:33; Admin Dose 40 MG; Start 11/15/18 at 06:00 Albuterol/ Ipratropium (Duoneb) 3 ml Q2H RESP THERAPY PRN HHN SHORTNESS OF BREATH; Start 11/14/18 at 22:30 Azathioprine (Imuran) 100 mg DAILY PO Last administered on 11/15/18at 09:57; Admin Dose 100 MG; Start 11/15/18 at 09:00 Sucralfate (Carafate) 1 gm Q6 PO Last administered on 11/15/18at 11:46; Admin Dose 1 GM; Start 11/15/18 at 00:00 Trimethoprim/ Sulfamethoxazole (Bactrim (Ds)) 1 tab BID PO Last administered on 11/15/18at 08:48; Admin Dose 1 TAB; Start 11/14/18 at 22:30 Oxycodone/ Acetaminophen (Percocet (5/ 325)) 1 tab Q4H PRN PO MODERATE PAIN LEVEL 4-6 Last administered on 11/15/18at 11:46; Admin Dose 1 TAB; Start 11/15/18 at 00:00 Ondansetron HCl (Zofran Inj) 4 mg Q4 PRN IV NAUSEA/VOMITING; Start 11/15/18 at 12:30; Status UNV Prednisone (Prednisone) 5 mg DAILY PO ; Start 11/21/18 at 09:00; Status UNV LIUDMILA DUMONT MD November 15, 2018 12:27
[2018-11-15] MEDS ORDERED: ONDANSETRON 4 MG INJ IV PRN (12:30)
--- NOTE | 2018-11-15 12:58 | CONS ---
Assessment/Plan Assessment/Plan Hospital Course (Demo Recall) Summary Assessment and Plan: Assessment: Hematemesis Normocytic Anemia SLE/Rheumatoid arthritis/Raynaud's syndrome -On prednisone. History of Splenectomy Depression Hx of EGD/colonoscopy 09/26/18 Colonoscopy 09/26/2018colitis more significant in the area of the rectum moderate size internal hemorrhoidsbiopsy negative for evidence of colitis EGD grade II/IV esophageal varices, severe gastritisbiopsies negative for H. pylori Liver cirrhosis- with hx of EV -Hepatitis serology negative -ASMA,AMA- negative Plan: Keep NPO EGD today Endoscopy - risks/benefits/alternatives/indications of procedure and sedation/anesthesia discussed with patient who states understanding and gives informed consent to proceed. PPI therapy Further recommendations based on clinical course patient seen in collaboration with CC: PAUL COLEMAN MD ; Consultation Date/Type/Reason Admit Date/Time November 14, 2018 at 18:36 Date of Consultation: November 15, 2018 Type of Consult GI Reason for Consultation Hematemesis Date/Time of Note DATE: 11/15/18 TIME: 12:53 Hx of Present Illness This a 33-year-old female with past medical history of SLE, Raynaud's syndrome, rheumatoid arthritis who presented to the hospital with complaints of hemate mesis and melena and on admission patient's hemoglobin was noted to be 7.9 she status post 2 units of packed RBCs hemoglobin this morning was 9.0, platelet count is 407, INR 1.12 currently patient denies any abdominal pain further episodes of hematemesis or melena. Patient previously had a EGD and colonoscopy in September of this year showing grade 2/4 esophageal varices gastritis with negative biopsies for H. pylori and a colonoscopy which revealed colitis biopsies were negative for active colitis currently patient denies abdominal pain, constipation, or diarrhea. Discussed plan for EGD today, by Dr. Coleman. Reviewed risk/benefits of sedation and procedure patient verbalized understanding is agreeable for EGD today Review of Systems: [A 12 system, review was conducted and is negative except as noted in the HPI or here.] Past Medical History Medical History: other (See HPI) Home Meds Active Scripts Oxycodone HCl/Acetaminophen (Percocet 5-325 mg Tablet) 1 Each Tablet, 1-2 EACH PO Q6 for pain, #15 TAB Prov:MEKHI RUIZ 11/07/18 Sulfamethoxazole/Trimethoprim* (Bactrim Ds* Tablet) 1 Each Tablet, 1 TAB PO BID, #14 TAB Prov:MEKHI RUIZ 11/07/18 Cephalexin* (Keflex*) 500 Mg Capsule, 500 MG PO QID for 7 Days, CAP Prov:MEKHI RUIZ 11/07/18 Sucralfate* (Carafate*) 1 Gm Tab, 1 GM PO Q6 for 35 Days, #140 TAB Prov:GENESIS GANDARA MD 09/29/18 Pantoprazole* (Pantoprazole*) 40 Mg Tablet.dr, 40 MG PO BID@06,18 for 30 Days, #60 TAB 9 Refills Prov:GENESIS GANDARA MD 09/29/18 Reported Medications Calcium Carbonate/Vitamin D3 (Calcium 500 mg Chewable Tablet) 1 Each Tab.chew, 1 EACH PO DAILY, TAB.CHEW 11/14/18 Prednisone* (Prednisone*) 5 Mg Tab, 5 MG PO DAILY, TAB 11/14/18 Amlodipine Besylate* (Norvasc*) 5 Mg Tablet, 5 MG PO BID, TAB 11/14/18 Azathioprine* (Imuran*) 50 Mg Tab, 100 MG PO DAILY, TAB 11/14/18 Ergocalciferol (Vitamin D2) (VITAMIN D2) 50,000 Unit Capsule, 54488 UNIT PO QMONDAY 09/22/18 Aspirin Ec (Aspir 81) 81 Mg Tablet.dr, 81 MG PO DAILY, #30 TAB 09/22/18 Discontinued Reported Medications Ferrous Sulfate* (Ferrous Sulfate*) 325 Mg Tabec, 325 MG PO BID TK 1 T PO BID 09/22/18 Azathioprine* (Imuran*) 50 Mg Tab, 50 MG PO BID, TAB 01/07/17 Hydroxychloroquine Sulfate* (Hydroxychloroquine Sulfate*) 200 Mg Tablet, 200 MG PO BID, TAB 01/07/17 Discontinued Scripts Abybrapqgq-Rvrzpdympimwd-Cckxwsyv* (Fioricet*) 50-300-40 Mg Capsule, 1 CAP PO BID PRN for HEADACHE, #10 CAP Prov:MELCHOR MELENDEZ MD 11/11/18 Naloxone HCl nasal spray (Narcan 4 mg/0.1 mL nasal) 4 Mg [place], 4 MG NS .Q2-3MIN for OPIOID OVERDOSE, #2 SPRAY 0 Refills [place] 0.1 mL into one nostril. Repeat with second device into other nostril after 2-3 minutes if no or minimal response Prov:MEKHI RUIZ 11/07/18 Cephalexin* (Keflex*) 500 Mg Capsule, 500 MG PO TID for 7 Days, CAP Prov:PRICE PEDRAZA 10/14/18 Clotrimazole* (Clotrimazole* AF) 1% - 30 Gm Cream.gm., 1 APPLIC TOP BID for 7 Days, TUB Prov:PRICE PEDRAZA 10/14/18 Simethicone (GAS RELIEF) 80 Mg Tab.chew, 80 MG PO Q6 for 30 Days, #120 TAB.CHEW Prov:GENESIS GANDARA MD 09/29/18 Calcium Carbonate (CALCIUM CARBONATE) 200 Mg Tab.chew, 500 MG PO Q4 PRN for heart burn for 30 Days, #120 TAB.CHEW 9 Refills Prov:GENESIS GANDARA MD 09/29/18 Hydrocodone Bit-Acetaminophen (Hydrocodone Bit-APAP) 5-325MG Tablet, 1 TAB PO Q6H PRN for .PAIN 4-6 for 7 Days, #20 TAB Prov:GENESIS GANDARA MD 09/29/18 Propranolol Hcl* (Propranolol Hcl*) 10 Mg Tablet, 10 MG PO BID for 30 Days, #60 TAB 9 Refills Prov:GENESIS GANDARA MD 09/29/18 Albuterol Sulfate* (Albuterol Sulfate* Neb) 0.083%-3 Ml Neb, 5 MG NEB Q4 PRN for SHORTNESS OF BREATH, #30 EA Prov:MICKY CHAN MD 08/17/18 Medications Current Medications IV Flush (NS 3 ml) 3 ml PER PROTOCOL IV ; Start 11/14/18 at 22:30 Acetaminophen (Tylenol Tab) 650 mg Q6H PRN PO .PAIN 1-3 OR TEMP; Start 11/14/18 at 22:30 Pantoprazole (Protonix Iv) 40 mg DAILY@0600,1800 IV Last administered on 11/15/18at 05:33; Admin Dose 40 MG; Start 11/15/18 at 06:00 Albuterol/ Ipratropium (Duoneb) 3 ml Q2H RESP THERAPY PRN HHN SHORTNESS OF BREATH; Start 11/14/18 at 22:30 Azathioprine (Imuran) 100 mg DAILY PO Last administered on 11/15/18 09:57; Ad min Dose 100 MG; Start 11/15/18 at 09:00 Sucralfate (Carafate) 1 gm Q6 PO Last administered on 11/15/18at 11:46; Admin Dose 1 GM; Start 11/15/18 at 00:00 Trimethoprim/ Sulfamethoxazole (Bactrim (Ds)) 1 tab BID PO Last administered on 11/15/18at 08:48; Admin Dose 1 TAB; Start 11/14/18 at 22:30 Oxycodone/ Acetaminophen (Percocet (5/ 325)) 1 tab Q4H PRN PO MODERATE PAIN LEVEL 4-6 Last administered on 11/15/18at 11:46; Admin Dose 1 TAB; Start 11/15/18 at 00:00 Ondansetron HCl (Zofran Inj) 4 mg Q4 PRN IV NAUSEA/VOMITING; Start 11/15/18 at 12:30 Prednisone (Prednisone) 5 mg DAILY PO ; Start 11/21/18 at 09:00; Status UNV Allergies: Coded Allergies: vancomycin (Verified Allergy, Unknown, 11/14/18) Past Surgical History Past Surgical Hx: other (See HPI) Social History Alcohol Use: none Smoking Status: Never smoker Drug Use: none Exam/Review of Systems Exam Vitals Vital Signs Date Temp Pulse Resp B/P (MAP) Pulse Ox O2 O2 Flow FiO2 Time Delivery Rate 11/15/18 98.3 68 18 113/59 96 Room Air 08:00 (77) Intake and Output 11/14/18 11/14/18 11/15/18 1515:00 23:00 07:00 IntakeIntake Total 350 ml BalanceBalance 350 ml Exam PHYSICAL EXAMINATION: GENERAL: Alert & oriented x 3, in no acute distress, facial edema from prednisone SKIN: No lesions, no stigmata chronic liver disease, no evidence of bleeding diathesis HEAD: Normocephalic, atraumatic, no tenderness. EYES: Pupils equal reactive to light and accommodation, no discharge. EARS/NOSE AND THROAT: Ears normal, nose normal, oropharynx normal NECK: Supple, no masses CHEST: Inspection within normal limits. CARDIOVASCULAR: Heart: Regular rate and rhythm RESPIRATORY: Lungs clear to auscultation GASTROINTESTINAL AND LIVER: Abdomen: Soft, non tenderness, non-distended, no hernias, no masses, no organomegaly, no ascites, no guarding, no rebound tenderness, normoactive bowel sounds. Rectal: Deferred. EXTREMITIES: No cyanosis, clubbing or edema. Results Result Diagram: 11/15/18 0601 11/15/18 0601 Results 24hrs Laboratory Tests Test 11/14/18 17:00 11/14/18 17:10 11/15/18 06:01 11/15/18 06:56 White Blood Count 9.3 7.8 Red Blood Count 2.85 #L 3.19 L Hemoglobin 7.9 #L 9.0 L Hematocrit 25.8 #L 28.5 L Mean Corpuscular 90.5 89.3 Volume Mean Corpuscular 27.7 L 28.2 L Hemoglobin Mean Corpuscular 30.6 L 31.6 L Hemoglobin Concen t Red Cell 15.5 H 15.1 H Distribution Width Platelet Count 434 H 407 Mean Platelet 9.4 9.6 Volume Immature 0.300 0.300 Granulocytes % Neutrophils % 67.5 44.0 Lymphocytes % 14.0 L 20.7 Monocytes % 13.7 H 18.9 H Eosinophils % 3.9 15.1 H Basophils % 0.6 1.0 Nucleated Red 0.8 H 0.8 H Blood Cells % Immature 0.030 0.020 Granulocytes # Neutrophils # 6.3 3.4 Lymphocytes # 1.3 1.6 Monocytes # 1.3 H 1.5 H Eosinophils # 0.4 1.2 H Basophils # 0.1 0.1 Nucleated Red 0.1 H 0.1 H Blood Cells # Prothrombin Time 14.5 Prothrombin Time 1.1 Ratio INR International 1.12 Normalized Ratio Activated 27.2 Partial Thrombopl ast Time Sodium Level 140 141 Potassium Level 4.1 3.8 Chloride Level 111 H 113 H Carbon Dioxide 23 23 Level Anion Gap 6 5 Blood Urea 22 H 16 Nitrogen Creatinine 0.66 0.68 Est Glomerular > 60 > 60 Filtrat Rate mL/min Glucose Level 94 75 Calcium Level 8.7 8.3 L Total Bilirubin 0.4 0.9 Direct Bilirubin 0.00 0.00 Indirect 0.4 0.9 Bilirubin Aspartate Amino 27 27 Transf (AST/SGOT) Alanine 27 32 Aminotransferase (ALT/SGPT) Alkaline 100 92 Phosphatase Troponin I < 0.012 Total Protein 6.8 6.0 L Albumin 3.4 2.8 L Globulin 3.40 H 3.20 Albumin/Globulin 1.00 0.87 Ratio POC Beta HCG, NEGATIVE Qualitative Phosphorus Level 4.0 Magnesium Level 2.0 Lab Scanned BLOOD TRANSFUSIO Report N Medications Medication Current Medications IV Flush (NS 3 ml) 3 ml PER PROTOCOL IV ; Start 11/14/18 at 22:30 Acetaminophen (Tylenol Tab) 650 mg Q6H PRN PO .PAIN 1-3 OR TEMP; Start 11/14/18 at 22:30 Pantoprazole (Protonix Iv) 40 mg DAILY@0600,1800 IV Last administered on 11/15/18at 05:33; Admin Dose 40 MG; Start 11/15/18 at 06:00 Albuterol/ Ipratropium (Duoneb) 3 ml Q2H RESP THERAPY PRN HHN SHORTNESS OF BREATH; Start 11/14/18 at 22:30 Azathioprine (Imuran) 100 mg DAILY PO Last administered on 11/15/18at 09:57; Admin Dose 100 MG; Start 11/15/18 at 09:00 Sucralfate (Carafate) 1 gm Q6 PO Last administered on 11/15/18at 11:46; Admin Dose 1 GM; Start 11/15/18 at 00:00 Trimethoprim/ Sulfamethoxazole (Bactrim (Ds)) 1 tab BID PO Last administered on 11/15/18at 08:48; Admin Dose 1 TAB; Start 11/14/18 at 22:30 Oxycodone/ Acetaminophen (Percocet (5/ 325)) 1 tab Q4H PRN PO MODERATE PAIN LEVEL 4-6 Last administered on 11/15/18at 11:46; Admin Dose 1 TAB; Start 11/15/18 at 00:00 Ondansetron HCl (Zofran Inj) 4 mg Q4 PRN IV NAUSEA/VOMITING; Start 11/15/18 at 12:30 Prednisone (Prednisone) 5 mg DAILY PO ; Start 11/21/18 at 09:00; Status MONIQUE ZEPEDA November 15, 2018 12:58
[2018-11-15] MEDS ORDERED: PROPOFOL 40 ML ONE (16:05)
[2018-11-15] MEDS ORDERED: LIDOCAINE 100 MG SYRINGE ONE (16:05)
[2018-11-15] MEDS ORDERED: FENTAnyl 50 MCG/ML VIAL ONE (16:05)
--- NOTE | 2018-11-15 16:09 | PREAC ---
Date/Time of Note Date/Time of Note DATE: 11/15/18 TIME: 16:08 Anesthesia Eval and Record Evaluation Time Pre-Procedure Interview DATE: 11/15/18 TIME: 16:08 Age 33 Sex female NPO: 8 hrs Preoperative diagnosis HEMATEMESIS Planned procedure EGD WITH BIOPSIES Past Medical History Past Medical History: Includes Musculoskeletal: Rheumatoid arthritis, Other (SLE, RAYNAUD'S) Surgery & Anesthesia Issues No known issue Meds Anticoagulation: No Beta [place] within 24 hr: No Reason Beta [place] not given: Pt. not on B-[place] Active Scripts Oxycodone HCl/Acetaminophen (Percocet 5-325 mg Tablet) 1 Each Tablet, 1-2 EACH PO Q6 for pain, #15 TAB Prov:MEKHI RUIZ 11/07/18 Sulfamethoxazole/Trimethoprim* (Bactrim Ds* Tablet) 1 Each Tablet, 1 TAB PO BID, #14 TAB Prov:MEKHI RUIZ 11/07/18 Cephalexin* (Keflex*) 500 Mg Capsule, 500 MG PO QID for 7 Days, CAP Prov:MEKHI RUIZ 11/07/18 Sucralfate* (Carafate*) 1 Gm Tab, 1 GM PO Q6 for 35 Days, #140 TAB Prov:GENESIS GANDARA MD 09/29/18 Pantoprazole* (Pantoprazole*) 40 Mg Tablet., 40 MG PO BID@06,18 for 30 Days, #60 TAB 9 Refills Prov:GENESIS GANDARA MD 09/29/18 Reported Medications Calcium Carbonate/Vitamin D3 (Calcium 500 mg Chewable Tablet) 1 Each Tab.chew, 1 EACH PO DAILY, TAB.CHEW 11/14/18 Prednisone* (Prednisone*) 5 Mg Tab, 5 MG PO DAILY, TAB 11/14/18 Amlodipine Besylate* (Norvasc*) 5 Mg Tablet, 5 MG PO BID, TAB 11/14/18 Azathioprine* (Imuran*) 50 Mg Tab, 100 MG PO DAILY, TAB 11/14/18 Ergocalciferol (Vitamin D2) (VITAMIN D2) 50,000 Unit Capsule, 79362 UNIT PO QMONDAY 09/22/18 Aspirin Ec (Aspir 81) 81 Mg Tablet.dr, 81 MG PO DAILY, #30 TAB 09/22/18 Discontinued Reported Medications Ferrous Sulfate* (Ferrous Sulfate*) 325 Mg Tabec, 325 MG PO BID TK 1 T PO BID 09/22/18 Azathioprine* (Imuran*) 50 Mg Tab, 50 MG PO BID, TAB 01/07/17 Hydroxychloroquine Sulfate* (Hydroxychloroquine Sulfate*) 200 Mg Tablet, 200 MG PO BID, TAB 01/07/17 Discontinued Scripts Snskdcwjiu-Elqdsmkshaxjx-Gbtlihao* (Fioricet*) 50-300-40 Mg Capsule, 1 CAP PO BID PRN for HEADACHE, #10 CAP Prov:MELCHOR MELENDEZ MD 11/11/18 Naloxone HCl nasal spray (Narcan 4 mg/0.1 mL nasal) 4 Mg [place], 4 MG NS .Q2-3MIN for OPIOID OVERDOSE, #2 SPRAY 0 Refills [place] 0.1 mL into one nostril. Repeat with second device into other nostril after 2-3 minutes if no or minimal response Prov:MEKHI RUIZ 11/07/18 Cephalexin* (Keflex*) 500 Mg Capsule, 500 MG PO TID for 7 Days, CAP Prov:PRICE PEDRAZA 10/14/18 Clotrimazole* (Clotrimazole* AF) 1% - 30 Gm Cream.gm., 1 APPLIC TOP BID for 7 Days, TUB Prov:PRICE PEDRAZA 10/14/18 Simethicone (GAS RELIEF) 80 Mg Tab.chew, 80 MG PO Q6 for 30 Days, #120 TAB.CHEW Prov:GENESIS GANDARA MD 09/29/18 Calcium Carbonate (CALCIUM CARBONATE) 200 Mg Tab.chew, 500 MG PO Q4 PRN for heart burn for 30 Days, #120 TAB.CHEW 9 Refills Prov:GENESIS GANDARA MD 09/29/18 Hydrocodone Bit-Acetaminophen (Hydrocodone Bit-APAP) 5-325MG Tablet, 1 TAB PO Q6H PRN for .PAIN 4-6 for 7 Days, #20 TAB Prov:GENESIS GANDARA MD 09/29/18 Propranolol Hcl* (Propranolol Hcl*) 10 Mg Tablet, 10 MG PO BID for 30 Days, #60 TAB 9 Refills Prov:GENESIS GANDARA MD 09/29/18 Albuterol Sulfate* (Albuterol Sulfate* Neb) 0.083%-3 Ml Neb, 5 MG NEB Q4 PRN for SHORTNESS OF BREATH, #30 EA Prov:MICKY CHNA MD 08/17/18 Current Medications IV Flush (NS 3 ml) 3 ml PER PROTOCOL IV ; Start 11/14/18 at 22:30 Acetaminophen (Tylenol Tab) 650 mg Q6H PRN PO .PAIN 1-3 OR TEMP; Start 11/14/18 at 22:30 Pantoprazole (Protonix Iv) 40 mg DAILY@0600,1800 IV Last administered on 11/15/18at 05:33; Admin Dose 40 MG; Start 11/15/18 at 06:00 Albuterol/ Ipratropium (Duoneb) 3 ml Q2H RESP THERAPY PRN HHN SHORTNESS OF BREATH; Start 11/14/18 at 22:30 Azathioprine (Imuran) 100 mg DAILY PO Last administered on 11/15/18at 09:57; Admin Dose 100 MG; Start 11/15/18 at 09:00 Sucralfate (Carafate) 1 gm Q6 PO Last administered on 11/15/18at 11:46; Admin Dose 1 GM; Start 11/15/18 at 00:00 Trimethoprim/ Sulfamethoxazole (Bactrim (Ds)) 1 tab BID PO Last administered on 11/15/18at 08:48; Admin Dose 1 TAB; Start 11/14/18 at 22:30 Oxycodone/ Acetaminophen (Percocet (5/ 325)) 1 tab Q4H PRN PO MODERATE PAIN LEVEL 4-6 Last administered on 11/15/18at 11:46; Admin Dose 1 TAB; Start 11/15/18 at 00:00 Ondansetron HCl (Zofran Inj) 4 mg Q4 PRN IV NAUSEA/VOMITING; Start 11/15/18 at 12:30 Prednisone (Prednisone) 5 mg DAILY PO ; Start 11/21/18 at 09:00 Meds reviewed: Yes Allergies Coded Allergies: vancomycin (Verified Allergy, Unknown, 11/14/18) Allergies Reviewed: Yes Labs/Studies Labs Reviewed: Reviewed by anesthesiologist Result Diagram: 11/15/18 0611/15/18 06 Laboratory Tests 11/15/18 06:01 Blood Bank Test 11/14/18 17:00 Antibody Screen NEGATIVE Blood Product Summary Counts Blood Type A POSITIVE Crossmatch Red Blood Cells test: Negative Pre-procedure Exam Last vitals Vital Signs Date Temp Pulse Resp B/P (MAP) Pulse Ox O2 O2 Flow FiO2 Time Delivery Rate 11/15/18 98.0 59 18 121/56 98 Room Air 14:00 (77) Airway: Adequate mouth opening, Adequate thyromental dist Mallampati: Mallampati II Teeth: Normal Lung: Normal Heart: Normal ASA Physical Status ASA physical status: 2 Emergency: None Planned Anesthetic General/MAC: MAC Planned Pain Management Parenteral pain med Pre-operative Attestations Prior to commencing anesthesia and surgery, the patient was re-evaluated, there was verification of: *The patient's identity *The results of appropriate recent lab work and preoperative vital signs *The above evaluation not changing prior to induction *Anesthetic plan, risk benefits, alternative and complications discussed with patient/family; questions answered; patient/family understands, accepts and wishes to proceed. Bk Benavides M.D. November 15, 2018 16:09
--- NOTE | 2018-11-15 16:30 | PAC ---
Date/Time of Note Date/Time of Note DATE: 11/15/18 TIME: 16:30 Post-Anesthesia Notes Post-Anesthesia Note Last documented vital signs Vital Signs Date Temp Pulse Resp B/P (MAP) Pulse Ox O2 O2 Flow FiO2 Time Delivery Rate 11/15/18 98.0 59 18 121/56 98 Room Air 14:00 (77) Activity: WNL Respiratory function: WNL Cardiovascular function: WNL Mental status: Baseline Pain reasonably controlled: Yes Hydration appropriate: Yes Nausea/Vomiting absent: Yes Bk Benavides M.D. November 15, 2018 16:30
--- NOTE | 2018-11-15 18:10 | PSY ---
Date/Time of Note Date/Time of Note DATE: 11/15/18 TIME: 18:06 Psychiatric Subjective Eval Consent Pt consented to telemedicine: No Subjective Evaluation Patient location: inpatient Chief Complaint: vomited blood x 1 today , h/o gastritis History of present illness Patient is a 33-year-old female with a history of lupus, Pj's, rheumatoid arthritis, and colitis. On a [id number]-[id number] evaluation, patient states she has been increasingly depressed because she has a lot going on, patient's states she feels overwhelmed with her medical issues feels hopeless and helpless but denies suicidal ideation and contracted for safety. Patient also complained about difficulty sleeping,with discussed risk and benefits of antidepressants and i ncreased anxiety and depression. Discussed risks and benefits of medications to help treat depression sleep and she verbalized understanding Past psychiatric history Long history of depression with 2 suicide attempt Hospitalization: Suicidal Attempt(s) Medical history Problems Medical Problems: (1) Abdominal pain Status: Acute (2) Abdominal pain Status: Acute (3) Abscess of left buttock Status: Acute (4) Anemia Status: Acute (5) Anemia Status: Acute (6) Cellulitis Status: Acute (7) Chronic pain Status: Acute (8) Cough Status: Acute (9) Cough Status: Acute (10) Diarrhea Status: Acute (11) Diarrhea Status: Acute (12) Encounter for medication refill Status: Acute (13) Felon of finger Status: Acute (14) Fever Status: Acute (15) Fever Status: Acute (16) Gastroenteritis Status: Acute (17) Gastroenteritis Status: Acute (18) Headache Status: Acute (19) Hematemesis Status: Acute (20) Hypertension Status: Chronic (21) Hypokalemia Status: Acute (22) Infection Status: Acute (23) Infection of finger Status: Acute (24) Iron deficiency anemia Status: Chronic (25) Knee injury Status: Acute (26) Knee injury Status: Acute (27) Left ear pain Status: Acute (28) Left ear pain Status: Acute (29) Leukocytosis Status: Acute (30) Lupus Status: Acute (31) Multiple complaints Status: Acute (32) Nausea and vomiting Status: Acute (33) Nausea vomiting and diarrhea Status: Acute (34) Nausea vomiting and diarrhea Status: Acute (35) Obesity (BMI 30.0-34.9) Status: Chronic (36) Onychomycosis Status: Acute (37) Otitis media Status: Acute (38) Pain Status: Acute (39) Rash Status: Acute (40) Rash Status: Acute (41) Rheumatoid arthritis Status: Chronic (42) Rheumatoid arthritis flare Status: Acute (43) Severe anemia Status: Acute (44) SLE (systemic lupus erythematosus) Status: Chronic (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 (46) Splenic laceration Status: Acute (47) Splenomegaly Status: Acute (48) Viral syndrome Status: Acute (49) Viral syndrome Status: Acute (50) Vomiting Status: Acute (51) Wheeze Status: Acute Allergies: Coded Allergies: vancomycin (Verified Allergy, Unknown, 11/14/18) Substance Abuse Substance abuse history: No Prior substance abuse treatmen: No Social History Marital status: other DPA/Conservatorship: No Psychiatric Objective Eval Review of Systems: Review of Systems: Not Applicable Physical Examination: Physical Examination: Not Applicable Energy: Decreased Interest: Decreased Mental Status Examination: Appearance: Groomed Eye Contact: Fair Psychomotor Activity: Slow Behavior: Cooperative Speech: Clear, Soft AFFECT: Flat Mood: Depressed, Anxious Though Process: Linear Orientation: x4 Cognition: Alert Insight: Intact Laboratory Results Laboratory Tests Test 11/14/18 17:00 11/14/18 17:10 11/15/18 06:01 11/15/18 06:56 White Blood 9.3 10^3/ul 7.8 10^3/ul Count Red Blood Count 2.85 10^6/ul 3.19 10^6/ul Hemoglobin 7.9 g/dl 9.0 g/dl Hematocrit 25.8 % 28.5 % Mean Corpuscular 90.5 fl 89.3 fl Volume Mean Corpuscular 27.7 pg 28.2 pg Hemoglobin Mean Corpuscular 30.6 g/dl 31.6 g/dl Hemoglobin Mary nt Red Cell 15.5 % 15.1 % Distribution Width Platelet Count 434 10^3/UL 407 10^3/UL Mean Platelet 9.4 fl 9.6 fl Volume Immature 0.300 % 0.300 % Granulocytes % Neutrophils % 67.5 % 44.0 % Lymphocytes % 14.0 % 20.7 % Monocytes % 13.7 % 18.9 % Eosinophils % 3.9 % 15.1 % Basophils % 0.6 % 1.0 % Nucleated Red 0.8 /100WBC 0.8 /100WBC Blood Cells % Immature 0.030 10^3/ul 0.020 10^3/ul Granulocytes # Neutrophils # 6.3 10^3/ul 3.4 10^3/ul Lymphocytes # 1.3 10^3/ul 1.6 10^3/ul Monocytes # 1.3 10^3/ul 1.5 10^3/ul Eosinophils # 0.4 10^3/ul 1.2 10^3/ul Basophils # 0.1 10^3/ul 0.1 10^3/ul Nucleated Red 0.1 10^3/ul 0.1 10^3/ul Blood Cells # Prothrombin Time 14.5 Sec Prothrombin Time 1.1 Ratio INR 1.12 International Normalized Ratio Activated 27.2 Sec Partial Thrombop last Time Sodium Level 140 mmol/L 141 mmol/L Potassium Level 4.1 mmol/L 3.8 mmol/L Chloride Level 111 mmol/L 113 mmol/L Carbon Dioxide 23 mmol/L 23 mmol/L Level Anion Gap 6 5 Blood Urea 22 mg/dl 16 mg/dl Nitrogen Creatinine 0.66 mg/dl 0.68 mg/dl Est Glomerular > 60 mL/min > 60 mL/min Filtrat Rate mL/min Glucose Level 94 mg/dl 75 mg/dl Calcium Level 8.7 mg/dl 8.3 mg/dl Total Bilirubin 0.4 mg/dl 0.9 mg/dl Direct Bilirubin 0.00 mg/dl 0.00 mg/dl Indirect 0.4 mg/dl 0.9 mg/dl Bilirubin Aspartate Amino 27 IU/L 27 IU/L Transf (AST/SGOT ) Alanine 27 IU/L 32 IU/L Aminotransferase (ALT/SGPT) Alkaline 100 IU/L 92 IU/L Phosphatase Troponin I < 0.012 ng/ml Total Protein 6.8 g/dl 6.0 g/dl Albumin 3.4 g/dl 2.8 g/dl Globulin 3.40 g/dl 3.20 g/dl Albumin/Globulin 1.00 0.87 Ratio POC Beta HCG, NEGATIVE Qualitative Phosphorus Level 4.0 mg/dl Magnesium Level 2.0 mg/dl Lab Scanned BLOOD TRANSFUSI Report ON Assessment and Plan Assessment/Diagnosis Diagnosis Major depressive disorder severe recurrent without psychosis Recommendation/Plan Medication Management Lexapro 5 mg daily, Ambien 5 mg at bedtime as needed for sleep Multiple antipsychotics: No Psychotherapy Provide supportive therapy Discharge Disposition: Other Legal Status: Voluntary (Does not meet criteria for 5150 hold) DEBORA TEE NP November 15, 2018 18:10
[2018-11-15] MEDS: METOCLOPRAMIDE 10 MG INJ IV SCH (19:54)
[2018-11-15] MEDS: PANTOPRAZOLE 40 MG INJ IV SCH (19:54)
[2018-11-16] MEDS: SUCRALFATE 1 GM TAB PO SCH ×4 (00:27→17:43)
[2018-11-16] MEDS: METOCLOPRAMIDE 10 MG INJ IV SCH ×4 (00:28→17:43)
[2018-11-16 02:00] VITALS: BP 107/55; PULSE 71; RESP 17
[2018-11-16] MEDS: PANTOPRAZOLE 40 MG INJ IV SCH ×2 (05:35→17:43)
[2018-11-16 08:00] VITALS: BP 118/59; PULSE 84; RESP 16
[2018-11-16] MEDS: AZATHIOPRINE 50 MG TAB PO SCH (08:57)
[2018-11-16] MEDS: TRIMETHOPRIM/SULFAMETHOX (DS) TAB PO SCH ×2 (08:57→21:12)
[2018-11-16] MEDS: OXYCODONE/ACETAMINOPHEN (5/325) TAB PO PRN ×2 (09:01→15:10)
--- NOTE | 2018-11-16 12:56 | PN ---
Date/Time of Note Date/Time of Note DATE: 11/16/18 TIME: 12:54 Assessment/Plan VTE Prophylaxis Risk score (from Ns)>0 risk: 4 SCD applied (from [facility] [place] Yes SCD contraindicated: low risk/ambulating Pharmacological prophylaxis: NA/contraindicated Pharm contraindication: anticoag not tolerated Lines/Catheters IV C[facility] Type (from [facility] Saline Lock Urinary Cath still in place: No Assessment/Plan Hospital Course Assessment and plan: 1. GI bleed likely upper, sp EGD: Erosive esophagitis, mild gastritis. PPI 2. Recent GI bleed colitis. H. pylori positive but pathology negative. 3. 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 History of nonsteroidal use? 4. Chronic major depression consulted behavioral health 5. Anemia possible acute blood loss stable observe transfuse if less than 7 6. Adjustment disorder 7. Splenectomy status; may need vaccines updated 8. Esophageal varices, reevaluate down the line 9. Chronic liver disease/ cirrhosis? 10. Major depression, start Lexapro Ambien when stable S: One 11/15 less nausea vomiting. No dyspnea fever or dysuria or hematuria 11/16: Events noted Objective: Vital signs stable Physical exam No pallor Regular no tachypnea Bowel sounds present nt nd no RRG No edema Result Diagram: 11/16/18 0651 11/16/18 0651 Results 24hrs Laboratory Tests Test 11/16/18 06:51 White Blood Count 6.2 # Red Blood Count 3.15 L Hemoglobin 8.9 L Hematocrit 27.9 L Mean Corpuscular Volume 88.6 Mean Corpuscular Hemoglobin 28.3 L Mean Corpuscular Hemoglobin Concent 31.9 L Red Cell Distribution Width 15.1 H Platelet Count 413 Mean Platelet Volume 9.4 Immature Granulocytes % 0.300 Neutrophils % 54.0 Lymphocytes % 14.0 L Monocytes % 16.9 H Eosinophils % 14.0 H Basophils % 0.8 Nucleated Red Blood Cells % 1.5 H Immature Granulocytes # 0.020 Neutrophils # 3.3 Lymphocytes # 0.9 Monocytes # 1.0 H Eosinophils # 0.9 H Basophils # 0.1 Nucleated Red Blood Cells # 0.1 H Sodium Level 138 Potassium Level 3.4 L Chloride Level 109 Carbon Dioxide Level 22 Anion Gap 7 Blood Urea Nitrogen 10 Creatinine 0.70 Est Glomerular Filtrat Rate mL/min > 60 Glucose Level 74 Calcium Level 8.0 L Phosphorus Level 4.4 Magnesium Level 1.9 Total Bilirubin 0.8 Direct Bilirubin 0.00 Indirect Bilirubin 0.8 Aspartate Amino Transf (AST/SGOT) 23 Alanine Aminotransferase (ALT/SGPT) 35 Alkaline Phosphatase 89 Total Protein 6.1 Albumin 2.7 L Globulin 3.40 H Albumin/Globulin Ratio 0.79 Lipase 49 Exam/Review of Systems Exam Vitals Vital Signs Date Temp Pulse Resp B/P (MAP) Pulse Ox O2 O2 Flow FiO2 Time Delivery Rate 11/16/18 98.4 71 17 107/55 97 02:00 (72) 11/15/18 Room Air 17:44 11/15/18 8.0 16:29 Intake and Output 11/15/18 11/15/18 11/16/18 1515:00 23:00 07:00 IntakeIntake Total 600 ml BalanceBalance 600 ml Results Results 24hrs Laboratory Tests Test 11/16/18 06:51 White Blood Count 6.2 # Red Blood Count 3.15 L Hemoglobin 8.9 L Hematocrit 27.9 L Mean Corpuscular Volume 88.6 Mean Corpuscular Hemoglobin 28.3 L Mean Corpuscular Hemoglobin Concent 31.9 L Red Cell Distribution Width 15.1 H Platelet Count 413 Mean Platelet Volume 9.4 Immature Granulocytes % 0.300 Neutrophils % 54.0 Lymphocytes % 14.0 L Monocytes % 16.9 H Eosinophils % 14.0 H Basophils % 0.8 Nucleated Red Blood Cells % 1.5 H Immature Granulocytes # 0.020 Neutrophils # 3.3 Lymphocytes # 0.9 Monocytes # 1.0 H Eosinophils # 0.9 H Basophils # 0.1 Nucleated Red Blood Cells # 0.1 H Sodium Level 138 Potassium Level 3.4 L Chloride Level 109 Carbon Dioxide Level 22 Anion Gap 7 Blood Urea Nitrogen 10 Creatinine 0.70 Est Glomerular Filtrat Rate mL/min > 60 Glucose Level 74 Calcium Level 8.0 L Phosphorus Level 4.4 Magnesium Level 1.9 Total Bilirubin 0.8 Direct Bilirubin 0.00 Indirect Bilirubin 0.8 Aspartate Amino Transf (AST/SGOT) 23 Alanine Aminotransferase (ALT/SGPT) 35 Alkaline Phosphatase 89 Total Protein 6.1 Albumin 2.7 L Globulin 3.40 H Albumin/Globulin Ratio 0.79 Lipase 49 Medications Medication Current Medications IV Flush (NS 3 ml) 3 ml PER PROTOCOL IV ; Start 11/14/18 at 22:30 Acetaminophen (Tylenol Tab) 650 mg Q6H PRN PO .PAIN 1-3 OR TEMP; Start 11/14/18 at 22:30 Albuterol/ Ipratropium (Duoneb) 3 ml Q2H RESP THERAPY PRN HHN SHORTNESS OF BREATH; Start 11/14/18 at 22:30 Azathioprine (Imuran) 100 mg DAILY PO Last administered on 11/16/18 08:57; Admin Dose 100 MG; Start 11/15/18 at 09:00 Sucralfate (Carafate) 1 gm Q6 PO Last administered on 11/16/18 11:48; Admin Dose 1 GM; Start 11/15/18 at 00:00 Trimethoprim/ Sulfamethoxazole (Bactrim (Ds)) 1 tab BID PO Last administered on 11/16/18 08:57; Admin Dose 1 TAB; Start 11/14/18 at 22:30 Oxycodone/ Acetaminophen (Percocet (5/ 325)) 1 tab Q4H PRN PO MODERATE PAIN LEVEL 4-6 Last administered on 11/16/18at 09:01; Admin Dose 1 TAB; Start 11/15/18 at 00:00 Ondansetron HCl (Zofran Inj) 4 mg Q4 PRN IV NAUSEA/VOMITING; Start 11/15/18 at 12:30 Prednisone (Prednisone) 5 mg DAILY PO ; Start 11/21/18 at 09:00 Metoclopramide HCl (Reglan) 10 mg Q6 IV Last administered on 11/16/18 11:48; Admin Dose 10 MG; Start 11/15/18 at 18:00 Pantoprazole (Protonix Iv) 40 mg BID@0600,1800 IV Last administered on 11/16/18 05:35; Admin Dose 40 MG; Start 11/15/18 at 18:00 LIUDMILA DUMONT MD November 16, 2018 12:56
[2018-11-16] MEDS ORDERED: POTASSIUM CHLORIDE 100 ML IVPB ONE (13:30)
[2018-11-16 14:00] VITALS: BP 122/60; PULSE 80
[2018-11-16] MEDS: NADOLOL 40 MG TAB PO SCH ×2 (14:09→21:18)
--- NOTE | 2018-11-16 14:46 | PN ---
Date/Time of Note Date/Time of Note DATE: 11/16/18 TIME: 14:42 Assessment/Plan VTE Prophylaxis Risk score (from Ns)>0 risk: 4 SCD applied (from Ns): Yes Pharmacological prophylaxis: other (scds) Lines/Catheters IV [facility] (from [facility] Saline Lock Urinary Cath still in place: No Assessment/Plan Hospital Course Summary Assessment and Plan: Assessment: Hematemesis EGD 11/15/2018 Extensive ulceration of the distal esophagus, rule out opportunistic infecti on, biopsies obtained. Grade II/IV esophageal varices. No stigmata of recent bleeding. No therape utic intervention required Mild gastritis versus portal gastropathy, rule out H. pylori infection. Biopsies obtained Otherwise normal EGD Stomach biopsy negative for H. pylori infection, no evidence of intestinal metaplasia, dysplasia, or malignancy Esophageal ulcer biopsy mucosa showing moderate chronic inflammation no squamous mucosa is present. No goblet cells are identified, no H. pylori is identified, no evidence of dysplasia or malignancy Normocytic Anemia SLE/Rheumatoid arthritis/Raynaud's syndrome -On prednisone. History of Splenectomy Depression Hx of EGD/colonoscopy 09/26/18 Colonoscopy 09/26/2018colitis more significant in the area of the rectum mod erate size internal hemorrhoidsbiopsy negative for evidence of colitis EGD grade II/IV esophageal varices, severe gastritisbiopsies negative for H. pylori Liver cirrhosis- with hx of EV -Hepatitis serology negative -ASMA,AMA- negative Plan: Maximize medical therapy with Protonix twice daily plus Carafate 4 times daily plus Reglan 10 mg 4 times daily Pt to f/u with GI after discharge- further work-up regarding liver disease, pt may require liver bx as an out-pt patient seen in collaboration with Subjective: Course reviewed with nursing staff Patient interviewed and examined All labs, imaging and other results reviewed The patient appears comfortable, no c/o n/v or overt signs of GI bleed. Discussed results of pathology and EGD- pt verbalized understanding Exam PHYSICAL EXAMINATION: GENERAL: Alert & oriented x 3, in no acute distress, facial edema from prednisone SKIN: No lesions, no stigmata chronic liver disease, no evidence of bleeding diathesis HEAD: Normocephalic, atraumatic, no tenderness. EYES: Pupils equal reactive to light and accommodation, no discharge. EARS/NOSE AND THROAT: Ears normal, nose normal, oropharynx normal NECK: Supple, no masses CHEST: Inspection within normal limits. CARDIOVASCULAR: Heart: Regular rate and rhythm RESPIRATORY: Lungs clear to auscultation GASTROINTESTINAL AND LIVER: Abdomen: Soft, non tenderness, non-distended, no hernias, no masses, no organomegaly, no ascites, no guarding, no rebound tenderness, normoactive bowel sounds. Rectal: Deferred. EXTREMITIES: No cyanosis, clubbing or edema. Result Diagram: 11/16/18 0651 11/16/18 0651 Results 24hrs Laboratory Tests Test 11/16/18 06:51 White Blood Count 6.2 # Red Blood Count 3.15 L Hemoglobin 8.9 L Hematocrit 27.9 L Mean Corpuscular Volume 88.6 Mean Corpuscular Hemoglobin 28.3 L Mean Corpuscular Hemoglobin Concent 31.9 L Red Cell Distribution Width 15.1 H Platelet Count 413 Mean Platelet Volume 9.4 Immature Granulocytes % 0.300 Neutrophils % 54.0 Lymphocytes % 14.0 L Monocytes % 16.9 H Eosinophils % 14.0 H Basophils % 0.8 Nucleated Red Blood Cells % 1.5 H Immature Granulocytes # 0.020 Neutrophils # 3.3 Lymphocytes # 0.9 Monocytes # 1.0 H Eosinophils # 0.9 H Basophils # 0.1 Nucleated Red Blood Cells # 0.1 H Sodium Level 138 Potassium Level 3.4 L Chloride Level 109 Carbon Dioxide Level 22 Anion Gap 7 Blood Urea Nitrogen 10 Creatinine 0.70 Est Glomerular Filtrat Rate mL/min > 60 Glucose Level 74 Calcium Level 8.0 L Phosphorus Level 4.4 Magnesium Level 1.9 Total Bilirubin 0.8 Direct Bilirubin 0.00 Indirect Bilirubin 0.8 Aspartate Amino Transf (AST/SGOT) 23 Alanine Aminotransferase (ALT/SGPT) 35 Alkaline Phosphatase 89 Total Protein 6.1 Albumin 2.7 L Globulin 3.40 H Albumin/Globulin Ratio 0.79 Lipase 49 Exam/Review of Systems Exam Vitals Vital Signs Date Temp Pulse Resp B/P (MAP) Pulse Ox O2 O2 Flow FiO2 Time Delivery Rate 11/16/18 98.4 71 17 107/55 97 02:00 (72) 11/15/18 Room Air 17:44 11/15/18 8.0 16:29 Intake and Output 11/15/18 11/15/18 11/16/18 1515:00 23:00 07:00 IntakeIntake Total 600 ml BalanceBalance 600 ml Results Results 24hrs Laboratory Tests Test 11/16/18 06:51 White Blood Count 6.2 # Red Blood Count 3.15 L Hemoglobin 8.9 L Hematocrit 27.9 L Mean Corpuscular Volume 88.6 Mean Corpuscular Hemoglobin 28.3 L Mean Corpuscular Hemoglobin Concent 31.9 L Red Cell Distribution Width 15.1 H Platelet Count 413 Mean Platelet Volume 9.4 Immature Granulocytes % 0.300 Neutrophils % 54.0 Lymphocytes % 14.0 L Monocytes % 16.9 H Eosinophils % 14.0 H Basophils % 0.8 Nucleated Red Blood Cells % 1.5 H Immature Granulocytes # 0.020 Neutrophils # 3.3 Lymphocytes # 0.9 Monocytes # 1.0 H Eosinophils # 0.9 H Basophils # 0.1 Nucleated Red Blood Cells # 0.1 H Sodium Level 138 Potassium Level 3.4 L Chloride Level 109 Carbon Dioxide Level 22 Anion Gap 7 Blood Urea Nitrogen 10 Creatinine 0.70 Est Glomerular Filtrat Rate mL/min > 60 Glucose Level 74 Calcium Level 8.0 L Phosphorus Level 4.4 Magnesium Level 1.9 Total Bilirubin 0.8 Direct Bilirubin 0.00 Indirect Bilirubin 0.8 Aspartate Amino Transf (AST/SGOT) 23 Alanine Aminotransferase (ALT/SGPT) 35 Alkaline Phosphatase 89 Total Protein 6.1 Albumin 2.7 L Globulin 3.40 H Albumin/Globulin Ratio 0.79 Lipase 49 Medications Medication Current Medications IV Flush (NS 3 ml) 3 ml PER PROTOCOL IV ; Start 11/14/18 at 22:30 Acetaminophen (Tylenol Tab) 650 mg Q6H PRN PO .PAIN 1-3 OR TEMP; Start 11/14/18 at 22:30 Albuterol/ Ipratropium (Duoneb) 3 ml Q2H RESP THERAPY PRN HHN SHORTNESS OF BREATH; Start 11/14/18 at 22:30 Azathioprine (Imuran) 100 mg DAILY PO Last administered on 11/16/18at 08:57; Admin Dose 100 MG; Start 11/15/18 at 09:00 Sucralfate (Carafate) 1 gm Q6 PO Last administered on 11/16/18at 11:48; Admin Dose 1 GM; Start 11/15/18 at 00:00 Trimethoprim/ Sulfamethoxazole (Bactrim (Ds)) 1 tab BID PO Last administered on 11/16/18 08:57; Admin Dose 1 TAB; Start 11/14/18 at 22:30 Oxycodone/ Acetaminophen (Percocet (5/ 325)) 1 tab Q4H PRN PO MODERATE PAIN LEVEL 4-6 Last administered on 11/16/18at 09:01; Admin Dose 1 TAB; Start 11/15/18 at 00:00 Ondansetron HCl (Zofran Inj) 4 mg Q4 PRN IV NAUSEA/VOMITING; Start 11/15/18 at 12:30 Prednisone (Prednisone) 5 mg DAILY PO ; Start 11/21/18 at 09:00 Metoclopramide HCl (Reglan) 10 mg Q6 IV Last administered on 11/16/18at 11:48; Admin Dose 10 MG; Start 11/15/18 at 18:00 Pantoprazole (Protonix Iv) 40 mg BID@0600,1800 IV Last administered on 11/16/18at 05:35; Admin Dose 40 MG; Start 11/15/18 at 18:00 Nadolol (Corgard) 20 mg BID PO Last administered on 11/16/18at 14:09; Admin Dose 20 MG; Start 11/16/18 at 13:30 MONIQUE DE LA ROSA November 16, 2018 14:46
[2018-11-16 20:00] VITALS: BP 109/57; PULSE 87; RESP 19
[2018-11-17] MEDS: METOCLOPRAMIDE 10 MG INJ IV SCH ×3 (00:27→11:29)
[2018-11-17] MEDS: SUCRALFATE 1 GM TAB PO SCH ×3 (00:27→11:29)
[2018-11-17 02:00] VITALS: BP 100/55; PULSE 67; RESP 19
[2018-11-17] MEDS: PANTOPRAZOLE 40 MG INJ IV SCH (05:23)
[2018-11-17 08:00] VITALS: BP 103/62; PULSE 58; RESP 18
[2018-11-17] MEDS: OXYCODONE/ACETAMINOPHEN (5/325) TAB PO PRN (09:13)
[2018-11-17] MEDS: AZATHIOPRINE 50 MG TAB PO SCH (09:14)
[2018-11-17] MEDS: TRIMETHOPRIM/SULFAMETHOX (DS) TAB PO SCH (09:14)
[2018-11-17] MEDS: NADOLOL 40 MG TAB PO SCH (09:19)
[2018-11-17 14:00] VITALS: BP 116/67; PULSE 86; RESP 20
--- NOTE | 2018-11-17 14:28 | PN ---
Date/Time of Note Date/Time of Note DATE: 11/17/18 TIME: 14:23 Assessment/Plan VTE Prophylaxis Risk score (from Nsg)>0 risk: 1 SCD applied (from Nsg): Yes Pharmacological prophylaxis: other (scds) Lines/Catheters IV Catheter Type (from Nrs): Saline Lock Urinary Cath still in place: No Assessment/Plan Hospital Course Summary Assessment and Plan: Assessment: Hematemesis EGD 11/15/2018 Extensive ulceration of the distal esophagus, rule out opportunistic infecti on, biopsies obtained. Grade II/IV esophageal varices. No stigmata of recent bleeding. No therape utic intervention required Mild gastritis versus portal gastropathy, rule out H. pylori infection. Biopsies obtained Otherwise normal EGD Stomach biopsy negative for H. pylori infection, no evidence of intestinal metaplasia, dysplasia, or malignancy Esophageal ulcer biopsy mucosa showing moderate chronic inflammation no squamous mucosa is present. No goblet cells are identified, no H. pylori is identified, no evidence of dysplasia or malignancy Normocytic Anemia SLE/Rheumatoid arthritis/Raynaud's syndrome -On prednisone. History of Splenectomy Depression Hx of EGD/colonoscopy 09/26/18 Colonoscopy 09/26/2018colitis more significant in the area of the rectum mod erate size internal hemorrhoidsbiopsy negative for evidence of colitis EGD grade II/IV esophageal varices, severe gastritisbiopsies negative for H. pylori Liver cirrhosis- with hx of EV -Hepatitis serology negative -ASMA,AMA- negative Plan: Continue PPI BID and Carafate susp 1gm/10ml QID x6 weeks Pt to f/u with GI after discharge- further work-up regarding liver disease, pt may require liver bx as an out-pt She will require yearly EGD for EV surveillance and PRN pending sx and findings patient seen in collaboration with Subjective: Course reviewed with nursing staff Patient interviewed and examined All labs, imaging and other results reviewed Pt states she had some discomfort this am with breakfast No overt signs of GI bleed. Discussed with patient need to f/u after d/c She verbalized understanding Exam PHYSICAL EXAMINATION: GENERAL: Alert & oriented x 3, in no acute distress, facial edema from prednisone SKIN: No lesions, no stigmata chronic liver disease, no evidence of bleeding diathesis HEAD: Normocephalic, atraumatic, no tenderness. EYES: Pupils equal reactive to light and accommodation, no discharge. EARS/NOSE AND THROAT: Ears normal, nose normal, oropharynx normal NECK: Supple, no masses CHEST: Inspection within normal limits. CARDIOVASCULAR: Heart: Regular rate and rhythm RESPIRATORY: Lungs clear to auscultation GASTROINTESTINAL AND LIVER: Abdomen: Soft, non tenderness, non-distended, no hernias, no masses, no organomegaly, no ascites, no guarding, no rebound tenderness, normoactive bowel sounds. Rectal: Deferred. EXTREMITIES: No cyanosis, clubbing or edema. Result Diagram: 11/17/1840 11/17/1840 Results 24hrs Laboratory Tests Test 11/16/18 15:00 11/17/18 05:40 Stool Occult Blood POSITIVE White Blood Count 5.5 Red Blood Count 3.18 L Hemoglobin 8.9 L Hematocrit 28.7 L Mean Corpuscular Volume 90.3 Mean Corpuscular Hemoglobin 28.0 L Mean Corpuscular Hemoglobin Concent 31.0 L Red Cell Distribution Width 14.8 H Platelet Count 387 Mean Platelet Volume 9.4 Immature Granulocytes % 0.400 Neutrophils % 56.7 Lymphocytes % 11.4 L Monocytes % 17.1 H Eosinophils % 13.5 H Basophils % 0.9 Nucleated Red Blood Cells % 2.3 H Immature Granulocytes # 0.020 Neutrophils # 3.1 Lymphocytes # 0.6 L Monocytes # 1.0 H Eosinophils # 0.8 H Basophils # 0.1 Nucleated Red Blood Cells # 0.1 H Sodium Level 137 Potassium Level 3.8 Chloride Level 109 Carbon Dioxide Level 25 Anion Gap 3 L Blood Urea Nitrogen 8 Creatinine 0.67 Est Glomerular Filtrat Rate mL/min > 60 Glucose Level 82 Calcium Level 8.1 L Exam/Review of Systems Exam Vitals Vital Signs Date Temp Pulse Resp B/P (MAP) Pulse Ox O2 O2 Flow FiO2 Time Delivery Rate 11/17/18 98.8 58 18 103/62 94 08:00 (76) 11/16/18 Room Air 14:00 11/15/18 8.0 16:29 Intake and Output 11/16/18 11/16/18 11/17/18 1515:00 23:00 07:00 IntakeIntake Total 240 ml BalanceBalance 240 ml Results Results 24hrs Laboratory Tests Test 11/16/18 15:00 11/17/18 05:40 Stool Occult Blood POSITIVE White Blood Count 5.5 Red Blood Count 3.18 L Hemoglobin 8.9 L Hematocrit 28.7 L Mean Corpuscular Volume 90.3 Mean Corpuscular Hemoglobin 28.0 L Mean Corpuscular Hemoglobin Concent 31.0 L Red Cell Distribution Width 14.8 H Platelet Count 387 Mean Platelet Volume 9.4 Immature Granulocytes % 0.400 Neutrophils % 56.7 Lymphocytes % 11.4 L Monocytes % 17.1 H Eosinophils % 13.5 H Basophils % 0.9 Nucleated Red Blood Cells % 2.3 H Immature Granulocytes # 0.020 Neutrophils # 3.1 Lymphocytes # 0.6 L Monocytes # 1.0 H Eosinophils # 0.8 H Basophils # 0.1 Nucleated Red Blood Cells # 0.1 H Sodium Level 137 Potassium Level 3.8 Chloride Level 109 Carbon Dioxide Level 25 Anion Gap 3 L Blood Urea Nitrogen 8 Creatinine 0.67 Est Glomerular Filtrat Rate mL/min > 60 Glucose Level 82 Calcium Level 8.1 L Medications Medication Current Medications IV Flush (NS 3 ml) 3 ml PER PROTOCOL IV ; Start 11/14/18 at 22:30 Acetaminophen (Tylenol Tab) 650 mg Q6H PRN PO .PAIN 1-3 OR TEMP Last administered on 11/16/18 21:13; Admin Dose 650 MG; Start 11/14/18 at 22:30 Albuterol/ Ipratropium (Duoneb) 3 ml Q2H RESP THERAPY PRN HHN SHORTNESS OF BREATH; Start 11/14/18 at 22:30 Azathioprine (Imuran) 100 mg DAILY PO Last administered on 11/17/18 09:14; Admin Dose 100 MG; Start 11/15/18 at 09:00 Sucralfate (Carafate) 1 gm Q6 PO Last administered on 11/17/18 11:29; Admin Dose 1 GM; Start 11/15/18 at 00:00 Trimethoprim/ Sulfamethoxazole (Bactrim (Ds)) 1 tab BID PO Last administered on 11/17/18 09:14; Admin Dose 1 TAB; Start 11/14/18 at 22:30 Oxycodone/ Acetaminophen (Percocet (5/ 325)) 1 tab Q4H PRN PO MODERATE PAIN LEVEL 4-6 Last administered on 11/17/18 09:13; Admin Dose 1 TAB; Start 11/15/18 at 00:00 Ondansetron HCl (Zofran Inj) 4 mg Q4 PRN IV NAUSEA/VOMITING Last administered on 11/17/18 09:04; Admin Dose 4 MG; Start 11/15/18 at 12:30 Prednisone (Prednisone) 5 mg DAILY PO ; Start 11/21/18 at 09:00 Metoclopramide HCl (Reglan) 10 mg Q6 IV Last administered on 11/17/18at 11:29; Admin Dose 10 MG; Start 11/15/18 at 18:00 Pantoprazole (Protonix Iv) 40 mg BID@0600,1800 IV Last administered on 11/17/18 t 05:23; Admin Dose 40 MG; Start 11/15/18 at 18:00 Nadolol (Corgard) 20 mg BID PO Last administered on 11/17/18at 09:19; Admin Dose 20 MG; Start 11/16/18 at 13:30 MONIQUE DE LA ROSA November 17, 2018 14:28
--- NOTE | 2018-11-17 14:45 | DS ---
Date/Time of Note Date/Time of Note DATE: 11/17/18 TIME: 14:43 Discharge Summary Admission/Discharge Info Admit Date/Time November 14, 2018 at 18:36 Discharge Date/Time Patient Condition: Stable Consults Dr Coleman Procedures Gastric Path MICROSCOPIC DIAGNOSIS: A-Stomach, biopsy: -- Oxyntic mucosa showing mild chronic gastritis. -- No Helicobacter pylori is identified in Giemsa stain (positive control concurrently reviewed). -- No evidence of intestinal metaplasia, dysplasia or malignancy. B-Esophageal ulcer, biopsy: -- Cardiac mucosa showing moderate chronic inflammation. -- No squamous mucosa is present. -- No goblet cells are identified in Alcian Blue/PAS stain (positive control concurrently reviewed). -- No Helicobacter pylori is identified in Giemsa stain (positive control concurrently reviewed). -- No evidence of dysplasia or malignancy. MP/CH/tm/mt Hx of Present Illness Admitted with GI bleed admitted Hospital Course Hospitalist coverage/hospital course Admitted with GI bleed seen by GI. Underwent EGD. 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 Stomach with some congestion but no active bleed. Patient stable for for discharge. Added PPI Carafate Reglan. Patient is on prednisone due to her rheumatological challenges. We will asked patient to follow-up with GI and rheumatology in follow-up. 1. GI bleed/ upper, sp EGD: Erosive esophagitis, mild gastritis. PPI 2. Recent GI bleed/ colitis . H pylori positive & pathology was negative. 3. 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 History of nonsteroidal use? 4. Chronic major depression consulted behavioral health 5. Anemia possible acute blood loss stable observe transfuse if less than 7 6. Adjustment disorder 7. Splenectomy status; may need vaccines updated 8. Esophageal varices III/IV, reevaluate down the line; BB 9. Chronic liver disease/ cirrhosis? 10. Major depression, started Lexapro Ambien when stable S: One 11/15 less nausea vomiting. No dyspnea fever or dysuria or hematuria 11/16: Events noted 11/17: No active bleed no distress tolerating diet stable and fit for discharge Home Meds Active Scripts Oxycodone HCl/Acetaminophen (Percocet 5-325 mg Tablet) 1 Each Tablet, 1-2 EACH PO Q6 for pain, #15 TAB Prov:MEKHI RUIZ 11/07/18 Sulfamethoxazole/Trimethoprim* (Bactrim Ds* Tablet) 1 Each Tablet, 1 TAB PO BID, #14 TAB Prov:MEKHI RUIZ 11/07/18 Cephalexin* (Keflex*) 500 Mg Capsule, 500 MG PO QID for 7 Days, CAP Prov:MEKHI RUIZ 11/07/18 Sucralfate* (Carafate*) 1 Gm Tab, 1 GM PO Q6 for 35 Days, #140 TAB Prov:GENESIS GANDARA MD 09/29/18 Pantoprazole* (Pantoprazole*) 40 Mg Tablet.dr, 40 MG PO BID@06,18 for 30 Days, #60 TAB 9 Refills Prov:GENESIS GANDARA MD 09/29/18 Reported Medications Calcium Carbonate/Vitamin D3 (Calcium 500 mg Chewable Tablet) 1 Each Tab.chew, 1 EACH PO DAILY, TAB.CHEW 11/14/18 Prednisone* (Prednisone*) 5 Mg Tab, 5 MG PO DAILY, TAB 11/14/18 Amlodipine Besylate* (Norvasc*) 5 Mg Tablet, 5 MG PO BID, TAB 11/14/18 Azathioprine* (Imuran*) 50 Mg Tab, 100 MG PO DAILY, TAB 11/14/18 Ergocalciferol (Vitamin D2) (VITAMIN D2) 50,000 Unit Capsule, 97170 UNIT PO QMONDAY 09/22/18 Aspirin Ec (Aspir 81) 81 Mg Tablet.dr, 81 MG PO DAILY, #30 TAB 09/22/18 Discontinued Reported Medications Ferrous Sulfate* (Ferrous Sulfate*) 325 Mg Tabec, 325 MG PO BID TK 1 T PO BID 09/22/18 Azathioprine* (Imuran*) 50 Mg Tab, 50 MG PO BID, TAB 01/07/17 Hydroxychloroquine Sulfate* (Hydroxychloroquine Sulfate*) 200 Mg Tablet, 200 MG PO BID, TAB 01/07/17 Discontinued Scripts Ueybluxtzk-Pvcwzcfndgzil-Ovourdaj* (Fioricet*) 50-300-40 Mg Capsule, 1 CAP PO BID PRN for HEADACHE, #10 CAP Prov:MELCHOR MELENDEZ MD 11/11/18 Naloxone HCl nasal spray (Narcan 4 mg/0.1 mL nasal) 4 Mg [place], 4 MG NS .Q2-3MIN for OPIOID OVERDOSE, #2 SPRAY 0 Refills [place] 0.1 mL into one nostril. Repeat with second device into other nostril after 2-3 minutes if no or minimal response Prov:MEKHI RUIZ 11/07/18 Cephalexin* (Keflex*) 500 Mg Capsule, 500 MG PO TID for 7 Days, CAP Prov:PRICE PEDRAZA 10/14/18 Clotrimazole* (Clotrimazole* AF) 1% - 30 Gm Cream.gm., 1 APPLIC TOP BID for 7 Days, TUB Prov:KEILAPRICE Gustavo 10/14/18 Simethicone (GAS RELIEF) 80 Mg Tab.chew, 80 MG PO Q6 for 30 Days, #120 TAB.CHEW Prov:GENESIS GANDARA MD 09/29/18 Calcium Carbonate (CALCIUM CARBONATE) 200 Mg Tab.chew, 500 MG PO Q4 PRN for heart burn for 30 Days, #120 TAB.CHEW 9 Refills Prov:GENESIS GANDARA MD 09/29/18 Hydrocodone Bit-Acetaminophen (Hydrocodone Bit-APAP) 5-325MG Tablet, 1 TAB PO Q6H PRN for .PAIN 4-6 for 7 Days, #20 TAB Prov:GENESIS GANDARA MD 09/29/18 Propranolol Hcl* (Propranolol Hcl*) 10 Mg Tablet, 10 MG PO BID for 30 Days, #60 TAB 9 Refills Prov:GENESIS GANDARA MD 09/29/18 Albuterol Sulfate* (Albuterol Sulfate* Neb) 0.083%-3 Ml Neb, 5 MG NEB Q4 PRN for SHORTNESS OF BREATH, #30 EA Prov:MICKY CHAN MD 08/17/18 Primary Care Provider [facility] Time spent on discharge: > 30 minutes Pending Labs Laboratory Tests Test 11/16/18 15:00 11/17/18 05:40 Stool Occult Blood POSITIVE (NEGATIVE) White Blood Count 5.5 10^3/ul (4.8-10.8) Red Blood Count 3.18 10^6/ul (4.20-5.40) Hemoglobin 8.9 g/dl (12.0-16.0) Hematocrit 28.7 % (37.0-47.0) Mean Corpuscular Volume 90.3 fl (82.0-101.0) Mean Corpuscular Hemoglobin 28.0 pg (29.0-33.0) Mean Corpuscular 31.0 g/dl (32.0-37.0) Hemoglobin Concent Red Cell Distribution Width 14.8 % (11.5-14.5) Platelet Count 387 10^3/UL (140-415) Mean Platelet Volume 9.4 fl (7.4-10.4) Immature Granulocytes % 0.400 % (0.001-0.429) Neutrophils % 56.7 % (39.0-77.0) Lymphocytes % 11.4 % (15.0-51.0) Monocytes % 17.1 % (0.0-11.0) Eosinophils % 13.5 % (0.0-7.0) Basophils % 0.9 % (0.0-2.0) Nucleated Red Blood Cells % 2.3 /100WBC (0.0-0.0) Immature Granulocytes # 0.020 10^3/ul (0.0-0.031) Neutrophils # 3.1 10^3/ul (1.6-7.5) Lymphocytes # 0.6 10^3/ul (0.8-2.9) Monocytes # 1.0 10^3/ul (0.3-0.9) Eosinophils # 0.8 10^3/ul (0.0-0.5) Basophils # 0.1 10^3/ul (0.0-0.1) Nucleated Red Blood Cells # 0.1 10^3/ul (0.0-0.0) Sodium Level 137 mmol/L (135-144) Potassium Level 3.8 mmol/L (3.5-5.1) Chloride Level 109 mmol/L (97-110) Carbon Dioxide Level 25 mmol/L (21-31) Anion Gap 3 (5-13) Blood Urea Nitrogen 8 mg/dl (7-20) Creatinine 0.67 mg/dl (0.44-1.00) Est Glomerular Filtrat > 60 mL/min (>60) Rate mL/min Glucose Level 82 mg/dl (70-220) Calcium Level 8.1 mg/dl (8.4-10.2) LIUDMILA DUMONT MD November 17, 2018 14:45
--- NOTE | 2018-11-17 14:46 | PDOCDIS ---
Discharge Instructions CONDITION [id number] Patient Condition: [id number] Stable HOME CARE INSTRUCTIONS: [id number] Diet Instructions: [id number] Regular ACTIVITY: [id number] Activity Restrictions: [id number] Slowly Increase Activity Do not Drive FOLLOW UP/APPOINTMENTS Follow-up Plan Dr Coleman 1-2wk Rheum & PCP 1-2wks LIUDMILA DUMONT MD November 17, 2018 14:46
[2018-11-17] MEDS ORDERED: CARAS PO (14:50)
[2018-11-17] MEDS ORDERED: METO10TA3 PO (14:50)
[2018-11-17] MEDS ORDERED: PANT40TA4 PO (14:50)
[2018-11-17] MEDS ORDERED: NADO40TA18 PO (14:50)
[2018-11-17] MEDS ORDERED: ACET325T33 PO (14:50)
[2018-11-17] MEDS ORDERED: SUCRALFATE (100 MG/ML) 10ML CUP PO SCH (17:00)
[2018-11-21] MEDS ORDERED: predniSONE 5 MG TAB PO SCH (09:00)
== END 2018-11-17 15:45 | disposition home or self-care (01) | DRG 378 ==
LOC: E/R 14:55 → PP2 18:36
PROVIDERS: ADMIT Internal Medicine; ATTEND Internal Medicine
PROC: 30233N1 Transfusion of Nonautologous Red Blood Cells into Peripheral Vein, Percutaneous Approach (ICD-10-PCS; 2018-11-14)
PROC: 0DD68ZX Extraction of Stomach, Via Natural or Artificial Opening Endoscopic, Diagnostic (ICD-10-PCS; 2018-11-15)
PROC: 0DJ08ZZ Inspection of Upper Intestinal Tract, Via Natural or Artificial Opening Endoscopic (ICD-10-PCS; principal; 2018-11-15 16:30)
DX: K92.2 Gastrointestinal hemorrhage, unspecified (principal); D62 Acute posthemorrhagic anemia; I85.01 Esophageal varices with bleeding; K52.9 Noninfective gastroenteritis and colitis, unspecified; K92.0 Hematemesis; M32.9 Systemic lupus erythematosus, unspecified; I73.00 Raynaud's syndrome without gangrene; M06.9 Rheumatoid arthritis, unspecified; I85.00 Esophageal varices without bleeding; F32.9 Major depressive disorder, single episode, unspecified; K74.60 Unspecified cirrhosis of liver; Z79.82 Long term (current) use of aspirin
CPT/HCPCS: 36430; 80048; 80053; 81025; 82270; 83690; 83735; 84100; 84484; 85025; 85610; 85730; 86850; 86900; 86901; 86920; 88305; 88312; 88313; 93005; 96374; 96375; C9113; J2001; J2405; J2765; J3010; J7030; J7040; J7500; J7512; P9016

== ENCOUNTER 2018-11-20 00:14 | Emergency (ER) | payer OTHER ==
[~2018-11-20] VITALS: Ht 162.6 cm; Wt 89.9 kg
[~2018-11-20 00:14] MED LIST changes: +ACET325T33 PO; +AMLO5TAB4 PO; +CALC-686 PO; +CARAS PO; +METO10TA3 PO; +NADO40TA18 PO; +PRED5TAB PO
[2018-11-20 00:17] VITALS: Ht 162.6 cm; Wt 89.9 kg
[2018-11-20] MEDS ORDERED: SODIUM CHLORIDE 0.9% 1L BAG IV* STA (00:34)
[2018-11-20] MEDS ORDERED: BELLADONNA/PHENOBARBITAL TAB PO STA (01:25)
[2018-11-20] MEDS ORDERED: ONDANSETRON 4 MG INJ IV STA (01:25)
[2018-11-20] MEDS ORDERED: KETOROLAC 15 MG INJ IV STA (01:25)
[2018-11-20] MEDS ORDERED: LIDOCAINE/MYLANTA 40 ML BTL PO STA (01:25)
[2018-11-20] MEDS ORDERED: PANTOPRAZOLE 40 MG INJ IV ONE (01:30)
[2018-11-20] MEDS ORDERED: ACETAMINOPHEN 325 MG TAB PO ONE (01:30)
[2018-11-20] MEDS ORDERED: metroNIDAZOLE 500 MG/NS (PMX) 100 ML IVPB ONE (01:30)
[2018-11-20] MEDS ORDERED: CEFEPIME 1GM/50 ML (PMX) 50 ML IVPB ONE (01:30)
--- NOTE | 2018-11-20 04:28 | ERD ---
ER Documentation Chief Complaint Chief Complaint pt c/o upper abd pain radiating to back HPI This is a 33-year-old female with a past medical history of lupus, Raynaud's syndrome, rheumatoid arthritis, on 5 mg of prednisone daily in addition to immunomodulators of Plaquenil and Imuran who is presenting with multiple games. The patient has had 2 to 3 days of waxing and waning progressive epigastric and left upper quadrant abdominal pain radiating to the left flank. The patient also endorses nausea with multiple episodes of nonbilious nonbloody yellow vomiting. She denies any constipation or diarrhea. She has not had any black or bloody or tarry stools. She has not had any dysuria or hematuria or urgency or frequency. Today, she developed a fever and feels generally unwell. The patient does not endorse any alleviating or exacerbating factors. The patient has had no headache or vision changes. The patient does not endorse neck or back pain. The patient denies lightheadedness or dizziness. The patient has had no chest pain or trouble breathing. The patient has had no focal deficits. The patient has had no weakness or numbness or tingling to the face or extremities. ROS All systems reviewed and are negative except as per history of present illness. Medications Home Meds Active Scripts Sucralfate* (Carafate*) 1 Gm/10 Ml Susp, 1 GM PO QID for 30 Days, #1 EA 2 Refills Prov:LIUDMILA DUMONT MD 11/17/18 Metoclopramide Hcl* (Metoclopramide Hcl*) 10 Mg Tablet, 10 MG PO QID for 10 Days, #40 TAB Prov:LIUDMILA DUMONT MD 11/17/18 Acetaminophen* (Tylenol*) 325 Mg Tablet, 650 MG PO Q6H PRN for .PAIN 1-3 OR TEMP for 1 Day, TAB Prov:LIUDMILA DUMONT MD 11/17/18 Nadolol (Corgard) 40 Mg Tablet, 20 MG PO BID for 15 Days, #30 TAB Prov:LIUDMILA DUMONT MD 11/17/18 Pantoprazole* (Pantoprazole*) 40 Mg Tablet.dr, 40 MG PO BID@06,18 for 30 Days, #60 TAB 1 Refill Prov:LIUDMILA DUMONT MD 11/17/18 Reported Medications Calcium Carbonate/Vitamin D3 (Calcium 500 mg Chewable Tablet) 1 Each Tab.chew, 1 EACH PO DAILY, TAB.CHEW 11/14/18 Prednisone* (Prednisone*) 5 Mg Tab, 5 MG PO DAILY, TAB 11/14/18 Azathioprine* (Imuran*) 50 Mg Tab, 100 MG PO DAILY, TAB 11/14/18 Ergocalciferol (Vitamin D2) (VITAMIN D2) 50,000 Unit Capsule, 86134 UNIT PO QMONDAY 09/22/18 Discontinued Reported Medications Amlodipine Besylate* (Norvasc*) 5 Mg Tablet, 5 MG PO BID, TAB 11/14/18 Aspirin Ec (Aspir 81) 81 Mg Tablet.dr, 81 MG PO DAILY, #30 TAB 09/22/18 Ferrous Sulfate* (Ferrous Sulfate*) 325 Mg Tabec, 325 MG PO BID TK 1 T PO BID 09/22/18 Azathioprine* (Imuran*) 50 Mg Tab, 50 MG PO BID, TAB 01/07/17 Hydroxychloroquine Sulfate* (Hydroxychloroquine Sulfate*) 200 Mg Tablet, 200 MG PO BID, TAB 01/07/17 Discontinued Scripts Oxycodone HCl/Acetaminophen (Percocet 5-325 mg Tablet) 1 Each Tablet, 1-2 EACH PO Q6 for pain, #15 TAB Prov:MEKHI RUIZ 11/07/18 Sulfamethoxazole/Trimethoprim* (Bactrim Ds* Tablet) 1 Each Tablet, 1 TAB PO BID, #14 TAB Prov:MEKHI RUIZ 11/07/18 Cephalexin* (Keflex*) 500 Mg Capsule, 500 MG PO QID for 7 Days, CAP Prov:MEKHI RUIZ 11/07/18 Sucralfate* (Carafate*) 1 Gm Tab, 1 GM PO Q6 for 35 Days, #140 TAB Prov:GENESIS GANDARA MD 09/29/18 Ihohsqtlyo-Zhxmkpzlztgqm-Kbznoynq* (Fioricet*) 50-300-40 Mg Capsule, 1 CAP PO BID PRN for HEADACHE, #10 CAP Prov:MELCHOR MELENDEZ MD 11/11/18 Naloxone HCl nasal spray (Narcan 4 mg/0.1 mL nasal) 4 Mg [place], 4 MG NS .Q2-3MIN for OPIOID OVERDOSE, #2 SPRAY 0 Refills [place] 0.1 mL into one nostril. Repeat with second device into other nostril after 2-3 minutes if no or minimal response Prov:MEKHI RUIZ 11/07/18 Cephalexin* (Keflex*) 500 Mg Capsule, 500 MG PO TID for 7 Days, CAP Prov:PRICE PEDRAZA 10/14/18 Clotrimazole* (Clotrimazole* AF) 1% - 30 Gm Cream.gm., 1 APPLIC TOP BID for 7 Days, TUB Prov:PRIEC PEDRAZA 10/14/18 Simethicone (GAS RELIEF) 80 Mg Tab.chew, 80 MG PO Q6 for 30 Days, #120 TAB.CHEW Prov:GENESIS GANDARA MD 09/29/18 Calcium Carbonate (CALCIUM CARBONATE) 200 Mg Tab.chew, 500 MG PO Q4 PRN for heart burn for 30 Days, #120 TAB.CHEW 9 Refills Prov:GENESIS GANDARA MD 09/29/18 Hydrocodone Bit-Acetaminophen (Hydrocodone Bit-APAP) 5-325MG Tablet, 1 TAB PO Q6H PRN for .PAIN 4-6 for 7 Days, #20 TAB Prov:GENESIS GANDARA MD 09/29/18 Propranolol Hcl* (Propranolol Hcl*) 10 Mg Tablet, 10 MG PO BID for 30 Days, #60 TAB 9 Refills Prov:GENESIS GANDARA MD 09/29/18 Albuterol Sulfate* (Albuterol Sulfate* Neb) 0.083%-3 Ml Neb, 5 MG NEB Q4 PRN for SHORTNESS OF BREATH, #30 EA Prov:MICKY CHAN MD 08/17/18 Allergies Allergies: Coded Allergies: avocado (Verified Allergy, Unknown, bumps inside her mouth, 11/16/18) vancomycin (Verified Allergy, Unknown, 11/14/18) PMhx/Soc History of Surgery: Yes (Spleen removal, right index finger amputation) Anesthesia Reaction: No Hx Neurological Disorder: Yes (Lupus) Hx Respiratory Disorders: No Hx Cardiac Disorders: Yes (Reynaud's SYNDROME) Hx Psychiatric Problems: Yes (anxiety, depression) Hx Miscellaneous Medical Probl: No Hx Alcohol Use: No Hx Substance Use: No Hx Tobacco Use: No Smoking Status: Never smoker FmHx Family History: No diabetes Physical Exam Vitals Vital Signs Date Temp Pulse Resp B/P (MAP) Pulse Ox O2 O2 Flow FiO2 Time Delivery Rate 11/20/18 98.0 98 16 140/77 100 Room Air 02:29 (98) 11/20/18 102.2 110 24 162/87 100 00:17 (112) Physical Exam Const: No acute distress Head: Atraumatic Eyes: Normal Conjunctiva ENT: Normal External Ears, Nose and Mouth. Neck: Full range of motion. No meningismus. Resp: Clear to auscultation bilaterally Cardio: Regular rhythm. Mild tachycardia. No murmurs Abd: Soft, non distended. Epigastric and right upper quadrant tenderness, mild. No rebound or guarding. Normal bowel sounds Skin: No petechiae or rashes Back: No midline or flank tenderness Ext: No cyanosis, or edema Neur: Awake and alert Psych: Normal Mood and Affect Result Diagram: 11/20/1810011/20/18100 Results 24 hrs Laboratory Tests Test 11/20/18 00:40 11/20/18 01:01 11/20/18 02:50 POC Venous Lactate 1.2 mmol/L White Blood Count 10.6 10^3/ul Red Blood Count 3.62 10^6/ul Hemoglobin 10.0 g/dl Hematocrit 31.9 % Mean Corpuscular Volume 88.1 fl Mean Corpuscular Hemoglobin 27.6 pg Mean Corpuscular 31.3 g/dl Hemoglobin Concent Red Cell Distribution Width 15.6 % Platelet Count 434 10^3/UL Mean Platelet Volume 9.5 fl Immature Granulocytes % 0.300 % Neutrophils % 76.4 % Lymphocytes % 7.3 % Monocytes % 10.5 % Eosinophils % 5.1 % Basophils % 0.4 % Nucleated Red Blood Cells % 1.0 /100WBC Immature Granulocytes # 0.030 10^3/ul Neutrophils # 8.1 10^3/ul Lymphocytes # 0.8 10^3/ul Monocytes # 1.1 10^3/ul Eosinophils # 0.5 10^3/ul Basophils # 0.0 10^3/ul Nucleated Red Blood Cells # 0.1 10^3/ul Prothrombin Time 13.9 Sec Prothrombin Time Ratio 1.1 INR International 1.06 Normalized Ratio Activated Partial Thromboplast 37.0 Sec Time Urine Color YELLOW Urine Clarity SLIGHTLY CLOUDY Urine pH 8.0 Urine Specific [place] 1.017 Urine Ketones NEGATIVE mg/dL Urine Nitrite NEGATIVE mg/dL Urine Bilirubin NEGATIVE mg/dL Urine Urobilinogen 1+ mg/dL Urine Leukocyte Esterase TRACE Tania/ul Urine Microscopic RBC 1 /HPF Urine Microscopic WBC 1 /HPF Urine Squamous Epithelial Cells FEW /HPF Urine Hemoglobin NEGATIVE mg/dL Urine Glucose NEGATIVE mg/dL Urine Total Protein NEGATIVE mg/dl Urine Test NEGATIVE Sodium Level 138 mmol/L Potassium Level 4.1 mmol/L Chloride Level 107 mmol/L Carbon Dioxide Level 23 mmol/L Anion Gap 8 Blood Urea Nitrogen 4 mg/dl Creatinine 0.66 mg/dl Est Glomerular Filtrat > 60 mL/min Rate mL/min Glucose Level 95 mg/dl Calcium Level 8.6 mg/dl Total Bilirubin 0.9 mg/dl Direct Bilirubin 0.00 mg/dl Indirect Bilirubin 0.9 mg/dl Aspartate Amino Transf (AST/SGOT) 22 IU/L Alanine 21 IU/L Aminotransferase (ALT/SGPT) Alkaline Phosphatase 122 IU/L Troponin I 0.020 ng/ml Total Protein 7.6 g/dl Albumin 3.6 g/dl Globulin 4.00 g/dl Albumin/Globulin Ratio 0.90 Lipase 25 U/L Serum HCG, Qualitative NEGATIVE Lactic Acid Level 0.9 mmol/L Current Medications Medications Dose Sig/Mansi Start Time Status Last (Trade) Ordered Route PRN Stop Time Admin Dose Reason Admin Sodium 1,640 ml BOLUS OVER 2 11/20/18 DC 11/20/18 Chloride HOURS STAT 00:34 02:03 (NS) IV* 11/20/18 00:36 Cefepime HCl 50 ml @ ONCE ONCE 11/20/18 DC 11/20/18 100 mls/hr IVPB 01:30 01:27 11/20/18 01:59 Ketorolac 15 mg ONCE STAT 11/20/18 DC 11/20/18 Tromethamine IV 01:25 02:12 (Toradol) 11/20/18 01:28 650 mg ONCE ONCE 11/20/18 DC 11/20/18 Acetaminophen PO 01:30 02:00 (Tylenol 11/20/18 01:31 Tab) 100 ml @ ONCE ONCE 11/20/18 DC 11/20/18 Metronidazole 100 mls/hr IVPB 01:30 02:01 11/20/18 02:29 Ondansetron 4 mg ONCE STAT 11/20/18 DC 11/20/18 HCl (Zofran IV 01:25 02:01 Inj) 11/20/18 01:28 40 ml ONCE STAT 11/20/18 DC 11/20/18 Miscellaneous PO 01:25 02:01 Medication 11/20/18 01:28 (Gi Cocktail (2)) Belladonna/ 2 tab ONCE STAT 11/20/18 DC 11/20/18 Phenobarbital PO 01:25 02:00 () 11/20/18 01:28 40 mg ONCE ONCE 11/20/18 DC 11/20/18 Pantoprazole IV 01:30 02:01 (Protonix 11/20/18 01:31 Iv) Procedures/MDM MDM The patient's presentation warrants further investigation. Previous medical records, if available, were reviewed. LABS The patient's laboratory testing was obtained and reviewed. No emergent treatment was required unless described below. CBC: No leukocytosis. No E/o systemic infection. Normocytic anemia, nonemergent. Mild thrombocytosis, not emergent. Chemistry: No E/o severe acidosis or alkalosis or renal failure or liver disease or diabetic ketoacidosis Lipase: No E/o pancreatitis PT/INR: No E/o significant coagulopathy Lactate: No E/o severe sepsis Troponin: No E/o acute ischemia Urine: No E/o acute infection or hematuria EKG EKG read by me: Rate/Rhythm: Regular rate and rhythm at a rate of sinus tachycardia at 101 bpm Intervals: Wide QRS in the setting of a right bundle branch block. Normal MI interval and QTc. [place]: Normal Impression: LVH with early repolarization. No evidence of acute ischemia. Sinus tachycardia IMAGING Imaging and Radiology interpretation reviewed. CXR FINDINGS: CARDIAC AND MEDIASTINAL SILHOUETTES: Within normal limits. LUNGS: Slight interstitial prominence and peribronchial thickening is present. No focal consolidation is appreciated. Small right apical calcified granuloma appears to be present versus a second rib bone island. OSSEOUS STRUCTURES: Unremarkable. IMPRESSION: 1. Slight interstitial prominence and peribronchial thickening may suggest an inflammatory or infectious process in the appropriate setting. 2. No focal consolidation to suggest lobar pneumonia. Electronically viewed and signed by Ayo Rodriguez Physician on 11/20/2018 02:32 TREATMENT/DISPOSITION The patient presents for epigastric pain primarily. There is been ongoing for some time. The patient does report having gastritis, potentially related to her chronic steroid use. The patient was treated with Protonix, Zofran and a GI cocktail with improvement of her epigastric discomfort. The patient did also endorse left upper quadrant abdominal pain. The patient's lipase is normal and I have low suspicion for pancreatitis. The patient does not have any evidence of peritonitis. The patient does not have clinical symptoms concerning for mesenteric ischemia or ischemic colitis. The patient does not have right upper quadrant tenderness, and I have low suspicion for gallstones, cholecystitis or biliary colic. The patient does not have any right lower quadrant tenderness, or periumbilical tenderness. I have low suspicion for appendicitis. The patient does not have suprapubic tenderness. I have decreased suspicion for cystitis. The patient does not have any left lower quadrant tenderness, and I have low suspicion for diverticulosis or diverticulitis. The patient does not have any flank tenderness. The patient does not have gross hematuria. I have decreased suspicion for nephrolithiasis or renal colic. The patient does not have any palpable pulsatile mass or severe abdominal pain radiating to the back. I have low suspicion for aortic aneurysm, dissection or rupture. When the patient initially presented, she is tachycardic and febrile. A sepsis work-up was initiated. The patient was given a sepsis bolus of IV fluids in addition to the first dose of broad-spectrum antibiotics. There is no evidence of endorgan damage. She has no leukocytosis or lactic acidosis. At this time, I have very low suspicion for sepsis and I do not feel the patient requires further management of sepsis. The patient's symptoms could be gastric in etiology. I discussed the findings with the patient and a will ultimately give the patient a prescription for Levaquin for possible enteritis or gastroenteritis. The patient also be given a prescription for nausea. She is already on medications for gastritis. The patient does have interstitial changes on the chest x-ray, which I suspect are inflammatory related to her lupus. She does not have any symptoms concerning for pneumonia. DISCHARGE Upon reevaluation of the patient, symptoms have improved. No emergent diagnoses were identified. At this time, I feel that the patient stable for discharge. The patient was instructed to follow-up with a primary care physician in 1-3 days. The patient will be given strict precautions with which to return to the emergency department. Prescriptions: Zofran, Levaquin The patient's blood pressure was elevated at greater than 120/80 while in the emergency department. The patient was otherwise stable with no evidence of hypertensive urgency or emergency. The patient does not require admission for blood pressure control. I have discussed with the patient the risks of hypert ension. I have instructed the patient to return to the ER for any new or worsening symptoms including chest pain, shortness of breath, headache, blurred vision, confusion, nausea, vomiting or LOC. I have advised the patient to follow up with the primary care physician for outpatient monitoring and treatment for hypertension in 1-3 days. Disclaimer: Inadvertent spelling and grammatical errors are likely due to EHR/dictation software use and do not reflect on the overall quality of patient care. Note that the electronic time recorded on this note does not necessarily reflect the actual time of the patient encounter. Departure Diagnosis: Primary Impression: Epigastric pain Additional Impressions: Fever Fever type: unspecified Qualified Codes: R50.9 - Fever, unspecified Tachycardia Normocytic anemia Thrombocytosis Nausea & vomiting Vomiting type: unspecified Vomiting Intractability: non-intractable Qualified Codes: R11.2 - Nausea with vomiting, unspecified Condition: Stable Patient Instructions: Epigastric Pain (Uncertain Cause), Fever Control (Adult), Sinus Tachycardia Additional Instructions: Thank you for for coming to [facility] for your care today. Please ask your nurse or provider if you have questions about your care today and do not leave until all your questions have been answered. Please use any medications given as directed and follow-up with your doctor (or the doctor you were referred to) in the next 1-3 days. If you do not have a primary care doctor you may follow up at the [facility] or critical access hospital clinic (listed below). You may also use motrin and tylenol as needed for fever and/or pain unless instructed otherwise by your provider or nurse. Indications for more urgent follow-up have been discussed, but you may return to the Emergency Department at ANY time for any worrisome or worsening symptoms. If you have abdominal pain, please know that no test or exam you received is perfect and you should follow up within 8 hours for continued pain. If you had any imaging studies today, such as an X-Ray or CT Scan, these studies will be reviewed later by a radiologist. You will be called if there are important findings that were not identified today, so make sure the contact information you provided at registration is correct. If you received any narcotic pain control medicine today, such as Vicodin, Morphine or Dilaudid, your coordination and judgment may be affected for a number of hours. Please do not drive or operate heavy machinery, and you may want someone to assist you at home. If you were given a prescription for narcotic medication, be aware that it is very addictive- use sparingly and only if necessary. PLEASE SEEK FURTHER EVALUATION AND MANAGEMENT AT YOUR DOCTORS OFFICE WITHIN THE NEXT 1-3 DAYS. IT IS YOUR RESPONSIBILITY TO MAKE AN APPOINTMENT FOR FOLOW-UP CARE. IF YOU HAVE A PRIMARY DOCTOR, PLEASE CALL THEIR OFFICE TO SCHEDULE AN APPOI NTMENT FOR FOLLOW UP. IF YOU DO NOT HAVE A PRIMARY DOCTOR YOU CAN CALL OUR PHYSICIAN REFERRAL HOTLINE AT IF YOU CAN NOT AFFORD TO SEE A PHYSICIAN YOU CAN CHOSE FROM THE FOLLOWING [facility] CL[facility]ICS: [facility] [address] [facility] [address] [facility] [facility] [address] [facility] [address] [facility] [facility] [address] [facility]. [facility]. [address] JENNY LUCAS MD November 20, 2018 04:16
[2018-11-20] MEDS ORDERED: ONDA8TAB9 PO (04:30)
[2018-11-20] MEDS ORDERED: LEVO750T25 PO (04:30)
[2018-11-20 04:39] VITALS: BP 124/76; PULSE 96; RESP 18
== END 2018-11-20 04:40 | disposition home or self-care (01) ==
LOC: E/R 00:14
DX: R10.13 Epigastric pain (principal); R00.0 Tachycardia, unspecified; D64.9 Anemia, unspecified; D47.3 Essential (hemorrhagic) thrombocythemia; R11.2 Nausea with vomiting, unspecified; R50.9 Fever, unspecified
CPT/HCPCS: 36415; 71045; 80053; 81001; 83605; 83690; 84484; 84703; 85025; 85610; 85730; 87040; 87086; 96365; 96375; C9113; J0692; J1885; J2405; J7030; Z7502; Z7610

== ENCOUNTER 2018-11-26 20:33 | Emergency (ER) | payer OTHER ==
[~2018-11-26] VITALS: Ht 162.6 cm; Wt 90.9 kg
[~2018-11-26 20:33] MED LIST changes: -ALBU2.5V3 NEB; -AMLO5TAB4 PO; -ASPI-535 PO; -BUTA1CAP38 PO; -CALC200T26 PO; -CEPH-443 PO; -CLOT30CR24 TOP; -FER325 PO; -HYDR-3601 PO; -HYDR200T39 PO; +LEVO750T25 PO; -NALO4SPR NS; +ONDA8TAB9 PO; -OXYC-279 PO; -PROP10TA6 PO; -SIME80TA53 PO; -SUCR1TAB56 PO; -SULF1TAB31 PO
[2018-11-26 20:46] VITALS: BP 164/86; PULSE 76; RESP 18; Ht 162.6 cm; Wt 90.9 kg
[2018-11-26] MEDS ORDERED: KETOROLAC 30 MG INJ IM STA (22:48)
[2018-11-26] MEDS ORDERED: HYDROCODONE/APAP (5/325) TAB PO ONE (23:00)
[2018-11-26] MEDS ORDERED: TRAM50TA2 PO (23:35)
[2018-11-26] MEDS ORDERED: CYCL10TA7 PO (23:37)
--- NOTE | 2018-11-26 23:38 | ERD ---
ER Documentation Chief Complaint Chief Complaint lower back pain x 1 hour. denies trauma HPI 33-year-old female presents with left low back pain for last hour. Started while she is watching TV. Denies any fall or history of trauma. She denies any fevers, urinary complaints, flank pain. Patient has a history of intermittent low back pain. Denies bowel or bladder incontinence, weakness, deficits, anesthesia. ROS All systems reviewed and are negative except as per history of present illness. Medications Home Meds Active Scripts Cyclobenzaprine Hcl* (Cyclobenzaprine Hcl*) 10 Mg Tablet, 10 MG PO TID, #15 TAB Prov:MICKY CHAN MD 11/26/18 Tramadol HCl (Tramadol HCl) 50 Mg Tablet, 50 MG PO Q4 PRN for PAIN, #20 TAB Prov:MICKY CHAN MD 11/26/18 Ondansetron Hcl* (Zofran*) 8 Mg Tablet, 8 MG PO Q6H PRN for NAUSEA AND OR VOMITING, #20 TAB Prov:JENNY RAWLS MD 11/20/18 Levofloxacin* (Levaquin*) 750 Mg Tablet, 750 MG PO DAILY for 7 Days, TAB Prov:JENNY RAWLS MD 11/20/18 Sucralfate* (Carafate*) 1 Gm/10 Ml Susp, 1 GM PO QID for 30 Days, #1 EA 2 Refills Prov:LIUDMILA DUMONT MD 11/17/18 Metoclopramide Hcl* (Metoclopramide Hcl*) 10 Mg Tablet, 10 MG PO QID for 10 Days, #40 TAB Prov:LIUDMILA DUMONT MD 11/17/18 Acetaminophen* (Tylenol*) 325 Mg Tablet, 650 MG PO Q6H PRN for .PAIN 1-3 OR TEMP for 1 Day, TAB Prov:LIUDMILA DUMONT MD 11/17/18 Nadolol (Corgard) 40 Mg Tablet, 20 MG PO BID for 15 Days, #30 TAB Prov:LIUDMILA DUMONT MD 11/17/18 Pantoprazole* (Pantoprazole*) 40 Mg Tablet.dr, 40 MG PO BID@06,18 for 30 Days, #60 TAB 1 Refill Prov:LIUDMILA DUMONT MD 11/17/18 Reported Medications Calcium Carbonate/Vitamin D3 (Calcium 500 mg Chewable Tablet) 1 Each Tab.chew, 1 EACH PO DAILY, TAB.CHEW 11/14/18 Prednisone* (Prednisone*) 5 Mg Tab, 5 MG PO DAILY, TAB 11/14/18 Azathioprine* (Imuran*) 50 Mg Tab, 100 MG PO DAILY, TAB 11/14/18 Ergocalciferol (Vitamin D2) (VITAMIN D2) 50,000 Unit Capsule, 22462 UNIT PO QMONDAY 09/22/18 Allergies Allergies: Coded Allergies: avocado (Verified Allergy, Unknown, bumps inside her mouth, 11/16/18) vancomycin (Verified Allergy, Unknown, 11/14/18) PMhx/Soc History of Surgery: Yes (Spleen removal, right index finger amputation) Anesthesia Reaction: No Hx Neurological Disorder: Yes (Lupus) Hx Respiratory Disorders: No Hx Cardiac Disorders: Yes (Reynaud's SYNDROME) Hx Psychiatric Problems: Yes (anxiety, depression) Hx Miscellaneous Medical Probl: No Hx Alcohol Use: No Hx Substance Use: No Hx Tobacco Use: No FmHx Family History: No diabetes, No coronary disease, No other Physical Exam Vitals Vital Signs Date Temp Pulse Resp B/P (MAP) Pulse Ox O2 O2 Flow FiO2 Time Delivery Rate 11/26/18 99.9 76 18 164/86 97 20:46 (112) Physical Exam Const: No acute distress Head: Atraumatic Eyes: Normal Conjunctiva ENT: Normal External Ears, Nose and Mouth. Neck: Full range of motion. No meningismus. Resp: Clear to auscultation bilaterally Cardio: Regular rate and rhythm, no murmurs Abd: Soft, non tender, non distended. Normal bowel sounds Skin: No petechiae or rashes Back: No midline or flank tenderness. Tenderness left L4-5 paraspinous area. No midline tenderness or deformities. Ext: No cyanosis, or edema Neur: Awake and alert Psych: Normal Mood and Affect Results 24 hrs Laboratory Tests Test 11/26/18 23:27 POC Beta HCG, Qualitative NEGATIVE Current Medications Medications Dose Sig/Mansi Start Time Status Last (Trade) Ordered Route PRN Stop Time Admin Dose Reason Admin Ketorolac 30 mg ONCE STAT 11/26/18 DC 11/26/18 Tromethamine IM 22:48 11/26/18 23:33 (Toradol) 22:49 1 tab ONCE ONCE 11/26/18 DC 11/26/18 Acetaminophen PO 23:00 11/26/18 23:32 / 23:01 Hydrocodone Bitart ([place] (5/325)) Procedures/MDM Patient presents with nontraumatic low back pain for last day. She has no signs or symptoms to suggest epidural abscess, cauda equina syndrome, deficits, ischemia, bacterial infection. She likely has musculoskeletal strain. She was administered [place] 5 mg and Toradol 30 mg IM. She will be treated with tramadol, instructions for back exercises, instructions for primary care follow- up and return precautions. The patient was stable with no new complaints during the ER course. Clinically, there is no current evidence to suggest meningitis, sepsis, acute abdomen, pneumonia, stroke, acute coronary syndrome, pulmonary embolism, aortic dissection or any other emergent condition appearing to require further evaluation or hospitalization. Patient counseled regarding my diagnostic impression and care plan. Prior to discharge all questions answered. Pt agrees with treatment plan and understands strict return precautions. Pt is instructed to follow up with primary care provider within 24-48 hours. Precautionary instructions provided including instructions to return to the ER if not improving or for any worsening or changing symptoms or concerns. Disclaimer: Inadvertent spelling and grammatical errors are likely due to EHR/dictation software use and do not reflect on the overall quality of patient care. Also, please note that the electronic time recorded on this note does not necessarily reflect the actual time of the patient encounter. Departure Diagnosis: Primary Impression: Back pain Back pain location: low back pain Chronicity: acute Back pain laterality: left Sciatica presence: without sciatica Qualified Codes: M54.5 - Low back pain Condition: Stable Patient Instructions: Back Exercises, Lumbar, Back Pain (Acute Or Chronic) Referrals: [facility] (PCP) Additional Instructions: Likely musculoskeletal strain. Recommend exercises at home. Recheck for fevers, new worsening symptoms with primary care doctor. MICKY CHAN MD Nov 26, 2018 23:38
== END 2018-11-26 23:38 | disposition home or self-care (01) ==
LOC: FTE 20:33
DX: M54.5 Low back pain (principal)
CPT/HCPCS: 81025; 96372; J1885; Z7502; Z7610

== ENCOUNTER 2018-11-29 02:32 | Inpatient (IN) | payer OTHER ==
[~2018-11-29] VITALS: Ht 162.6 cm; Wt 79.5 kg
[~2018-11-29 02:32] MED LIST changes: +CYCL10TA7 PO; +TRAM50TA2 PO
--- NOTE | 2018-11-29 03:08 | ERD ---
ER Documentation Chief Complaint Chief Complaint mid back pain that radiates to abdomen x 2-4 days with n/v HPI This is a 33-year-old female with a past medical history of lupus, Raynaud's syndrome, rheumatoid arthritis, on 5 mg of prednisone daily in addition to immunomodulators of Plaquenil and Imuran who is presenting to the emergency department, complaining of persistent epigastric pain radiating to the mid back area, associated with nausea and general malaise for at least 4 weeks. She denies any constipation or diarrhea. She has not had any black or bloody or tarry stools. She has not had any dysuria or hematuria or urgency or frequency; denies fever or chills. ROS All systems reviewed and are negative except as per history of present illness. Medications Home Meds Active Scripts Cyclobenzaprine Hcl* (Cyclobenzaprine Hcl*) 10 Mg Tablet, 10 MG PO TID, #15 TAB Prov:MICKY CHAN MD 11/26/18 Tramadol HCl (Tramadol HCl) 50 Mg Tablet, 50 MG PO Q4 PRN for PAIN, #20 TAB Prov:MICKY CHAN MD 11/26/18 Ondansetron Hcl* (Zofran*) 8 Mg Tablet, 8 MG PO Q6H PRN for NAUSEA AND OR VOMITING, #20 TAB Prov:JENNY RAWLS MD 11/20/18 Levofloxacin* (Levaquin*) 750 Mg Tablet, 750 MG PO DAILY for 7 Days, TAB Prov:JENNY RAWLS MD 11/20/18 Sucralfate* (Carafate*) 1 Gm/10 Ml Susp, 1 GM PO QID for 30 Days, #1 EA 2 Refills Prov:LIUDMILA DUMONT MD 11/17/18 Metoclopramide Hcl* (Metoclopramide Hcl*) 10 Mg Tablet, 10 MG PO QID for 10 Days, #40 TAB Prov:LIUDMILA DUMONT MD 11/17/18 Acetaminophen* (Tylenol*) 325 Mg Tablet, 650 MG PO Q6H PRN for .PAIN 1-3 OR TEMP for 1 Day, TAB Prov:LIUDMILA DUMONT MD 11/17/18 Nadolol (Corgard) 40 Mg Tablet, 20 MG PO BID for 15 Days, #30 TAB Prov:LIUDMILA DUMONT MD 11/17/18 Pantoprazole* (Pantoprazole*) 40 Mg Tablet.dr, 40 MG PO BID@06,18 for 30 Days, #60 TAB 1 Refill Prov:LIUDMILA DUMONT MD 11/17/18 Reported Medications Calcium Carbonate/Vitamin D3 (Calcium 500 mg Chewable Tablet) 1 Each Tab.chew, 1 EACH PO DAILY, TAB.CHEW 11/14/18 Prednisone* (Prednisone*) 5 Mg Tab, 5 MG PO DAILY, TAB 11/14/18 Azathioprine* (Imuran*) 50 Mg Tab, 100 MG PO DAILY, TAB 11/14/18 Ergocalciferol (Vitamin D2) (VITAMIN D2) 50,000 Unit Capsule, 67905 UNIT PO QMONDAY 09/22/18 Allergies Allergies: Coded Allergies: avocado (Verified Allergy, Unknown, bumps inside her mouth, 11/16/18) vancomycin (Verified Allergy, Unknown, 11/14/18) PMhx/Soc History of Surgery: Yes (Spleen removal, right index finger amputation) Anesthesia Reaction: No Hx Neurological Disorder: Yes (Lupus) Hx Respiratory Disorders: No Hx Cardiac Disorders: Yes (Reynaud's SYNDROME) Hx Psychiatric Problems: Yes (anxiety, depression) Hx Miscellaneous Medical Probl: Yes (RA) Hx Alcohol Use: No Hx Substance Use: No Hx Tobacco Use: No Smoking Status: Never smoker Physical Exam Vitals Vital Signs Date Temp Pulse Resp B/P (MAP) Pulse Ox O2 O2 Flow FiO2 Time Delivery Rate 11/29/18 97.1 87 16 164/80 98 02:34 (108) Physical Exam Patient alert, oriented, vital signs stable. HEAD: Normocephalic, atraumatic. EYES: PERRLA, EOMI, Sclera and conjunctiva appear normal. NOSE: Clear and patent nostrils. EARS: Canals clear, tympanic membranes WNL. MOUTH: normal lips and tongue, no oral lesions. THROAT: Normal oropharynx, no tonsillar exudates. NECK: Supple, No lymphadenopathy. Full ROM without pain or tenderness. HEART: RRR, no rubs, murmurs, clicks or gallops. LUNGS: Clear to auscultation. ABDOMEN: Soft, tender in the epigastric area without masses or hepatosplenomegaly. EXTREMITIES: Distal cyanosis noticed with significant deformity. BACK: Full ROM, no deformity, normal back exam NEURO: Cranial nerves grossly intact, no motor or sensory deficit SKIN: No rashes, no petechia. Result Diagram: 11/29/18 0321 11/29/18 0321 Results 24 hrs Laboratory Tests Test 11/29/18 03:21 11/29/18 03:26 White Blood Count 5.6 10^3/ul Red Blood Count 3.23 10^6/ul Hemoglobin 8.7 g/dl Hematocrit 28.2 % Mean Corpuscular Volume 87.3 fl Mean Corpuscular Hemoglobin 26.9 pg Mean Corpuscular Hemoglobin Concent 30.9 g/dl Red Cell Distribution Width 16.5 % Platelet Count 828 10^3/UL Mean Platelet Volume 9.4 fl Immature Granulocytes % 0.500 % Neutrophils % 77.0 % Lymphocytes % 5.0 % Monocytes % 16.5 % Eosinophils % 0.5 % Basophils % 0.5 % Nucleated Red Blood Cells % 3.2 /100WBC Immature Granulocytes # 0.030 10^3/ul Neutrophils # 4.3 10^3/ul Lymphocytes # 0.3 10^3/ul Monocytes # 0.9 10^3/ul Eosinophils # 0.0 10^3/ul Basophils # 0.0 10^3/ul Nucleated Red Blood Cells # 0.2 10^3/ul Urine Color YELLOW Urine Clarity SLIGHTLY CLOUDY Urine pH 7.0 Urine Specific [place] 1.009 Urine Ketones NEGATIVE mg/dL Urine Nitrite NEGATIVE mg/dL Urine Bilirubin NEGATIVE mg/dL Urine Urobilinogen NEGATIVE mg/dL Urine Leukocyte Esterase 2+ Tania/ul Urine Microscopic RBC 0 /HPF Urine Microscopic WBC 5 /HPF Urine Squamous Epithelial Cells FEW /HPF Urine Bacteria FEW /HPF Urine Mucus FEW /HPF Urine Hemoglobin NEGATIVE mg/dL Urine Glucose NEGATIVE mg/dL Urine Total Protein NEGATIVE mg/dl Sodium Level 145 mmol/L Potassium Level 4.2 mmol/L Chloride Level 111 mmol/L Carbon Dioxide Level 27 mmol/L Anion Gap 7 Blood Urea Nitrogen 3 mg/dl Creatinine 0.62 mg/dl Est Glomerular Filtrat Rate mL/min > 60 mL/min Glucose Level 120 mg/dl Calcium Level 8.9 mg/dl Total Bilirubin 0.3 mg/dl Direct Bilirubin 0.00 mg/dl Indirect Bilirubin 0.3 mg/dl Aspartate Amino Transf (AST/SGOT) 18 IU/L Alanine Aminotransferase (ALT/SGPT) 17 IU/L Alkaline Phosphatase 156 IU/L Total Protein 7.5 g/dl Albumin 3.3 g/dl Globulin 4.20 g/dl Albumin/Globulin Ratio 0.78 Lipase 24 U/L POC Beta HCG, Qualitative NEGATIVE Patient: HAYDE MURILLO : 1985 Age: 33 Sex: F MR #: [id number] DOS: 11/29/18 0316 Ordering MD: MELCHOR MELENDEZ MD Location: [facility] Room/Bed: PROCEDURE: CT Abdomen and pelvis without contrast. CLINICAL INDICATION: Abdominal pain TECHNIQUE: CT scan of the abdomen and pelvis without contrast was performed on a multidetector high-resolution CT scan. . Coronal and sagittal reformatted images were obtained from the axial source images. Standard CT scan of the abdomen pelvis without contrast protocols were performed. The total exam CTDI equals 19.09 mGy and the total exam DLP equals 1199.23 mGy- cm. One or more of the following dose reduction techniques were used: - Automated exposure control. - Adjustment of the mA and/or kV according to patient size. Use of iterative reconstruction technique. Dicom images are available COMPARISON: CT abdomen pelvis 09/22/2018 FINDINGS: The pancreas appears prominent with indistinctness of the pancreatic margins and trace lucy pancreatic fluid extending into the right and left anterior pararenal spaces consistent with pancreatitis. No pancreatic mass or duct dilation demonstrated. Status post prior splenectomy. Slight nodularity of the hepatic margin and underlying cirrhosis should be considered. No focal hepatic lesion. Distended gallbladder. No biliary ductal dilation. Kidneys normal in size without calcified calculi hydronephrosis or intra renal masses. No evidence ureteral calcified calculi or dilatation. Contracted otherwise unremarkable urinary bladder. Anteflexed uterus otherwise unremarkable. No adnexal masses. Mild upper abdominal ascites, scattered edema throughout the mesentery and mild free fluid along the anterior urinary bladder. No localized abdominal fluid collection to suggest abscess. Negative intra-abdominal free air. No abdominal pelvic lymphadenopathy. Small to moderate hiatal hernia. The small bowel, large bowel and appendix are unremarkable. Mild pericardial effusion maximal transverse diameter 8 mm. Bibasilar chronic interstitial lung disease and subsegmental atelectasis. Aorta unremarkable. Fat-containing umbilical and left periumbilical hernias without herniated bowel or strangulation. IMPRESSION: 1. Again noted are changes involving the pancreas as described above consistent with acute pancreatitis. No focal pancreatic lesions seen. 2. Distended gallbladder without biliary ductal dilation. 3. Mild abdominal pelvic ascites. Negative free air abscess. 4. Small to moderate hiatal hernia. 5. Slight nodularity hepatic margin and underlying cirrhosis should be considered. No focal hepatic lesions. 6. Status post prior splenectomy. 7. Mild pericardial effusion maximal transverse diameter 8 mm. 8. Umbilical and left periumbilical fat-containing hernias without herniated bowel or strangulation. DIAGNOSTIC IMAGING REPORT Patient: HAYDE MURILLO : 1985 Age: 33 Sex: F MR #: [id number] DOS: 11/29/18 0316 Ordering MD: MELCHOR MELENDEZ MD Location: [facility] Room/Bed: PROCEDURE: US Abdomen. CLINICAL INDICATION: Pain TECHNIQUE: Multiple real-time images were acquired of the patient's abdomen and retroperitoneum utilizing a high resolution transducer. COMPARISON: CT pelvis same day. Abdominal ultrasound 12/05/2016. FINDINGS: There is a 5 mm nonshadowing echogenic focus in the peripheral gallbladder is consistent with gallbladder polyp. No definite gallstones. There is gallbladder wall thickening maximal transverse diameter 5.42 mm. No pericholecystic fluid. Common bile duct normal limits size maximal transverse diameter 4.98 mm. No intrahepatic biliary ductal dilation. Pancreas was not visualized due to overlying bowel gas. The liver is within normal limits in size maximal sagittal dimension 15.42 cm. Heterogeneous hepatic parenchymal echogenicity may represent hepatic parenchymal disease. No focal hepatic lesions. The right kidney is normal in size maximal sagittal mention 11.65 cm. Normal right renal parenchymal echogenicity without hydronephrosis intra renal mass or calculus. Normal portal venous flow. IMPRESSION: 1. Gallbladder polyp without definite gallstones. Gallbladder wall thickening without pericholecystic fluid. 2. No biliary ductal dilation. 3. Heterogeneous hepatic parenchymal echogenicity may represent hepatic parenchymal disease. No focal hepatic lesions. 4. Unremarkable right kidney. 5. Nonvisualization the appendix. Procedures/MDM Vital signs stable. Differential diagnosis include but not limited to: UTI, colitis, gastroenteritis, kidney stones, irritable bowel syndrome, inflammatory bowel syndrome, malabsorption syndrome, cholelithiasis, food intolerance, medication side effect, pancreatitis, diverticulitis, bowel obstruction. Physical examination and clinical presentation consistent most likely with acute pancreatitis with mild ascites and pericardial effusion, likely secondary to lupus. During the last 2 weeks, the patient had 5 visits to the emergency department complaining of pain and she is requesting to be admitted for persistent pain. During the ED course the patient remained stable, no new complaints. Results and clinical impression discussed with the patient who agrees with management. The patient is stable to be admitted in [facility]. The patient will be signed out to Dr. Shearer for further disposition and management. Instructions explained and given directly by me to the patient with acknowledgment and demonstrated understanding. Disclaimer: Inadvertent spelling and grammatical errors are likely due to EHR/dictation software use and do not reflect on the overall quality of patient care. Also, please note that the electronic time recorded on this note does not necessarily reflect the actual time of the patient encounter. Departure Diagnosis: Primary Impression: Acute pancreatitis Additional Impressions: Ascites Pericardial effusion Condition: Stable MELCHOR MELENDEZ MD Nov 29, 2018 03:08
[2018-11-29] MEDS ORDERED: ONDANSETRON 4 MG INJ IV STA (06:14)
[2018-11-29] MEDS ORDERED: morphine 4 MG/ML VIAL IV STA (06:14)
[2018-11-29] MEDS ORDERED: SOD CHLORIDE 0.9% 1,000 ML IV STA (06:14)
[2018-11-29] MEDS ORDERED: ONDANSETRON 4 MG INJ IV PRN (06:30)
[2018-11-29] MEDS ORDERED: ACETAMINOPHEN 325 MG TAB PO PRN ×2 (06:30→07:00)
[2018-11-29] MEDS ORDERED: ALBUTEROL/IPRATROPIUM (NEB) 3 ML AMP HHN PRN (07:00)
[2018-11-29] MEDS ORDERED: hydrALAzine 20 MG INJ IV PRN (07:00)
[2018-11-29] MEDS ORDERED: DOCUSATE SODIUM 100 MG CAP PO PRN (07:00)
[2018-11-29] MEDS ORDERED: NACL 0.9% 3 ML SYG IV SCH (07:00)
[2018-11-29] MEDS ORDERED: LORAZEPAM 2 MG INJ IV PRN (07:00)
[2018-11-29] MEDS ORDERED: MAGNESIUM HYDROXIDE 30ML CUP PO PRN (07:00)
[2018-11-29 08:15] VITALS: BP 124/65; PULSE 66; RESP 18
--- NOTE | 2018-11-29 09:16 | HP ---
Date/Time of Note Date/Time of Note DATE: 11/29/18 TIME: 09:16 Assessment/Plan VTE Prophylaxis Pharmacological prophylaxis: NA/contraindicated Pharm contraindication: low risk/ambulating Lines/Catheters IV Catheter Type (from Nrsg): Broviac Central line still needed: Yes Assessment/Plan Hospital Course 1. Epigastric abdominal pain -CT is concerning for pancreatitis, however lipase levels wnl and patient has history of severe gastric ulceration. We will get gastroenterology consultation again -Continue IV PPI twice daily as well as Carafate therapy -NPO, IVF -GI consult 2. Bandemia : ?cause 3. Severe arthritis, rheumatoid 4. Chronic SLE 5. History of gastritis 6. History of gastric ulcers 7. Hypertension 8. History of splenectomy 9. Status post finger amputation secondary to Raynaud's syndrome 10. Chronic liver cirrhosis with history of Esophageal varices -Last EGD and colonoscopy September 26, 2018 Dispo: -continue all home meds supportive care and pain control -further interventions per course. Plan of care has been discussed with patient, questions answered and patient has verbalized understanding. Result Diagram: 11/29/18 0321 11/29/18 0321 Results 24hrs Laboratory Tests Test 11/29/18 03:21 11/29/18 03:26 White Blood Count 5.6 # Red Blood Count 3.23 L Hemoglobin 8.7 L Hematocrit 28.2 L Mean Corpuscular Volume 87.3 Mean Corpuscular Hemoglobin 26.9 L Mean Corpuscular Hemoglobin Concent 30.9 L Red Cell Distribution Width 16.5 H Platelet Count 828 #H Mean Platelet Volume 9.4 Immature Granulocytes % 0.500 H Neutrophils % 77.0 Lymphocytes % 5.0 L Monocytes % 16.5 H Eosinophils % 0.5 Basophils % 0.5 Nucleated Red Blood Cells % 3.2 H Immature Granulocytes # 0.030 Neutrophils # 4.3 Lymphocytes # 0.3 L Monocytes # 0.9 Eosinophils # 0.0 Basophils # 0.0 Nucleated Red Blood Cells # 0.2 H Urine Color YELLOW Urine Clarity SLIGHTLY CLOUDY A Urine pH 7.0 Urine Specific [place] 1.009 Urine Ketones NEGATIVE Urine Nitrite NEGATIVE Urine Bilirubin NEGATIVE Urine Urobilinogen NEGATIVE Urine Leukocyte Esterase 2+ H Urine Microscopic RBC 0 Urine Microscopic WBC 5 Urine Squamous Epithelial Cells FEW Urine Bacteria FEW A Urine Mucus FEW A Urine Hemoglobin NEGATIVE Urine Glucose NEGATIVE Urine Total Protein NEGATIVE Sodium Level 145 H Potassium Level 4.2 Chloride Level 111 H Carbon Dioxide Level 27 Anion Gap 7 Blood Urea Nitrogen 3 L Creatinine 0.62 Est Glomerular Filtrat Rate mL/min > 60 Glucose Level 120 Calcium Level 8.9 Total Bilirubin 0.3 Direct Bilirubin 0.00 Indirect Bilirubin 0.3 Aspartate Amino Transf (AST/SGOT) 18 Alanine Aminotransferase (ALT/SGPT) 17 Alkaline Phosphatase 156 H Total Protein 7.5 Albumin 3.3 Globulin 4.20 H Albumin/Globulin Ratio 0.78 Lipase 24 Free Thyroxine 1.42 POC Beta HCG, Qualitative NEGATIVE HPI/ROS Admit Date/Time Admit Date/Time Nov 29, 2018 at 06:15 Hx of Present Illness 33-year-old female with a history of autoimmune disorder with lupus, rheumatoid arthritis, hypertension and recent diagnosis of extensive gastric ulcer who presents to office with severe abdominal pain in the epigastric region radiating to the back. Pain has been persistent over the last 4 days despite use of [id number] medications and is now associated with nausea and malaise. Patient had a bowel movement a day, and it was normal and non-melanotic. There is been no diarrhea. She denies fever or passing out episodes, denies chest pain. . ROS 12 point review if systems was done and pertinent findings are as noted. 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 Medications Current Medications Ondansetron HCl (Zofran Inj) 4 mg BRIDGE ORDER PRN IV NAUSEA/VOMITING; Start 11/29/18 at 06:30; Stop 11/30/18 at 06:29 Acetaminophen (Tylenol Tab) 650 mg ER BRIDGE PRN PO .MILD PAIN 1-3 OR TEMP; Start 11/29/18 at 06:30; Stop 11/30/18 at 06:29 IV Flush (NS 3 ml) 3 ml PER PROTOCOL IV ; Start 11/29/18 at 07:00 Ondansetron HCl (Zofran Inj) 4 mg Q6H PRN IV NAUSEA/VOMITING; Start 11/29/18 at 07:00 Acetaminophen (Tylenol Tab) 650 mg Q6H PRN PO .PAIN 1-3 OR TEMP; Start 11/29/18 at 07:00 Acetaminophen/ Hydrocodone Bitart ([place] (5/325)) 1 tab Q6H PRN PO .MOD PAIN 4- 6; Start 11/29/18 at 07:00 Morphine Sulfate (morphine) 2 mg Q4H PRN IV .SEVERE PAIN 7-10; Start 11/29/18 at 07:00 Docusate Sodium (Colace) 100 mg Q12H PRN PO .CONSTIPATION; Start 11/29/18 at 07:00 Magnesium Hydroxide (Milk Of Mag) 30 ml DAILY PRN PO .CONSTIPATION; Start 11/29/18 at 07:00 Famotidine (Pepcid Iv) 20 mg BID IV ; Start 11/29/18 at 09:00 Heparin Sodium (Porcine) (Heparin (5000 Units/1ml)) 5,000 unit Q12 SC ; Start 11/29/18 at 09:00 Lorazepam (Ativan) 0.5 mg Q6H PRN IV ANXIETY; Start 11/29/18 at 07:00 Sodium Chloride 1,000 ml @ 100 mls/hr Q10H IV ; Start 11/29/18 at 06:57 Albuterol/ Ipratropium (Duoneb) 3 ml Q4H RESP THERAPY PRN HHN SHORTNESS OF BREATH; Start 11/29/18 at 07:00 Hydralazine HCl (Apresoline) 10 mg Q6H PRN IV for sys bp > 180; Start 11/29/18 at 07:00 Nitroglycerin (Nitroglycerin (Sl Tab) 0.4 Mg) 1 tab Q5M PRN SL ANGINA; Start 11/29/18 at 07:00 Coded Allergies: avocado (Verified Allergy, Unknown, bumps inside her mouth, 11/16/18) vancomycin (Verified Allergy, Unknown, 11/14/18) Past Surgical History Past Surgical Hx: other (Splenectomy) Family History Significant Family History: no pertinent family hx Social History Alcohol Use: none Smoking Status: Never smoker Exam/Review of Systems Vital Signs Vitals Vital Signs Date Temp Pulse Resp B/P (MAP) Pulse Ox O2 O2 Flow FiO2 Time Delivery Rate 11/29/18 97.8 70 18 118/71 98 Room Air 07:37 (87) Exam Constitutional: alert, other (anxious) Psych: anxiety Head: normocephalic Eyes: PERRL ENMT: mucosa pink and moist Neck: supple Respiratory: clear to auscultation, diminished breath sounds Cardiovascular: regular rate and rhythm; No murmurs/extra sounds Gastrointestinal: soft, bowel sounds, tender (epigastrium); No rebound or guarding Musculoskeletal: other (chronic arthritic finger deformities ); No nl extremities to inspection Extremities: No edema Neurological: nl mental status; No focal weakness Skin: No rash or lesions CHERYLE LEONARD Nov 29, 2018 09:16
[2018-11-29] MEDS: SOD CHLORIDE 0.9% 1,000 ML IV SCH ×3 (10:10→20:45)
[2018-11-29] MEDS: FAMOTIDINE 20 MG INJ IV SCH ×2 (10:13→20:45)
[2018-11-29] MEDS: HEPARIN 5,000 UNIT/1 ML VIAL SC SCH ×2 (10:13→20:56)
[2018-11-29 10:54] VITALS: Ht 162.6 cm; Wt 79.5 kg
[2018-11-29] MEDS ORDERED: AMLO-147 PO (10:54)
[2018-11-29] MEDS: morphine 2 MG INJ IV PRN ×2 (13:05→19:46)
[2018-11-29 14:32] VITALS: BP 128/72; PULSE 74; RESP 16
[2018-11-29 19:45] VITALS: BP 134/69; PULSE 73; RESP 18
[2018-11-30] VITALS (7 sets, daily range): BP systolic 125–138; BP diastolic 76–90; PULSE 67–105; RESP 17–22
[2018-11-30] MEDS: morphine 2 MG INJ IV PRN ×3 (00:03→08:58)
[2018-11-30] MEDS: ONDANSETRON 4 MG INJ IV PRN ×3 (00:03→21:49)
[2018-11-30] MEDS: DEXTROSE 5%-0.45% NACL 1,000 ML IV SCH ×3 (02:39→09:56)
[2018-11-30] MEDS: HYDROCODONE/APAP (5/325) TAB PO PRN ×2 (02:40→10:04)
[2018-11-30] MEDS: PANTOPRAZOLE 40 MG INJ IV SCH ×2 (05:34→16:24)
[2018-11-30] MEDS ORDERED: predniSONE 5 MG TAB PO SCH (09:00)
[2018-11-30] MEDS: CYCLOBENZAPRINE 10 MG TAB PO SCH ×3 (09:58→21:49)
[2018-11-30] MEDS: CALCIUM/VITAMIN D (500/200) TAB PO SCH (09:59)
[2018-11-30] MEDS: SUCRALFATE (100 MG/ML) 10ML CUP PO SCH ×4 (10:01→21:49)
[2018-11-30] MEDS: NADOLOL 40 MG TAB PO SCH ×2 (10:01→21:52)
[2018-11-30] MEDS: AMLODIPINE 10 MG TAB PO SCH ×2 (10:02→21:51)
[2018-11-30] MEDS: AZATHIOPRINE 50 MG TAB PO SCH (10:02)
[2018-11-30] MEDS: HEPARIN 5,000 UNIT/1 ML VIAL SC SCH ×2 (10:07→22:20)
[2018-11-30] MEDS: NITROGLYCERIN (SL) 0.4 MG TAB SL PRN ×2 (10:14→10:24)
[2018-11-30] MEDS: morphine 4 MG/ML VIAL IV PRN ×3 (12:09→21:49)
[2018-11-30] MEDS: METOCLOPRAMIDE 10 MG INJ IV PRN (12:09)
[2018-11-30] MEDS ORDERED: METHYLPREDNISOLONE 125 MG INJ IV ONE (12:30)
--- NOTE | 2018-11-30 12:34 | CONS ---
Assessment/Plan Assessment/Plan Hospital Course (Demo Recall) Summary Assessment and Plan: Assessment: Epigastric pain-with radiation to left upper quadrant and left flank/back -CT is concerning for pancreatitis, however lipase WNL Left pleural effusion Pericardial effusion, moderate -Echocardiogram ordered Normocytic Anemia Thrombocytosis Recent History Hematemesis EGD 11/15/2018 Extensive ulceration of the distal esophagus, rule out opportunistic infection, biopsies obtained. Grade II/IV esophageal varices. No stigmata of recent bleeding. No therapeutic intervention required Mild gastritis versus portal gastropathy, Otherwise normal EGD Stomach biopsy negative for H. pylori infection, no evidence of intestinal metaplasia, dysplasia, or malignancy Esophageal ulcer biopsy mucosa showing moderate chronic inflammation no squamous mucosa is present. No goblet cells are identified, no H. pylori is identified, no evidence of dysplasia or malignancy SLE/Rheumatoid arthritis/Raynaud's syndrome -On prednisone. History of Splenectomy Depression HTN Hx of EGD/colonoscopy 09/26/18 Colonoscopy 09/26/2018colitis more significant in the area of the rectum moderate size internal hemorrhoidsbiopsy negative for evidence of colitis EGD grade II/IV esophageal varices, severe gastritisbiopsies negative for H. pylori Liver cirrhosis- with hx of EV -Hepatitis serology negative -ASMA,AMA- negative Status post finger amputation secondary to Raynaud's syndrome Plan: Continue PPI BID and Carafate susp 1gm/10ml MRCP IgG- with subclass Triglycerides- WNL Patient seen in collaboration with CC: PAUL ANTHONY MD ; Consultation Date/Type/Reason Admit Date/Time Nov 29, 2018 at 06:15 Date of Consultation: Nov 30, 2018 Type of Consult GI Reason for Consultation Upper abdominal pain Date/Time of Note DATE: 11/30/18 TIME: 11:56 Hx of Present Illness This is a 33-year-old female past medical history of lupus, Raynaud's syndrome, rheumatoid arthritis, hypertension, liver cirrhosis with esophageal varices, normocytic anemia, history of splenectomy, depression, Who presented to the hospital with complaints of epigastric pain radiating to left upper quadrant and to the left side of her back CT abdomen pelvis was obtained showing findings consistent with acute pancreatitis, lipase is normal CT of the chest was also completed showing increase in moderate left pleural effusion compared to CT from November 29, moderate pericardial effusion without evidence of cardiomegaly, mild intralobular septal thickening suggestive of pulmonary edema, mild tubeless esophagus with air dependent debris within the distal segment which may be secondary to reflux, status post splenectomy. Diffuse mesenteric stranding in the visualized upper abdominal similar to prior CT. currently patient is n.p.o. with IV fluids pain continues to persist epigastric area wrapping around to left side of the back. MRCP has been ordered we will additionally order repeat lipase and amylase. Current lipase within normal limits. Also obtain a triglyceride level as well as IgG rule out autoimmune hepatitis. Review of Systems: A 12 system, review was conducted and is negative except as noted in the HPI or here. Past Medical History Home Meds Active Scripts Cyclobenzaprine Hcl* (Cyclobenzaprine Hcl*) 10 Mg Tablet, 10 MG PO TID, #15 TAB Prov:MICKY CHAN MD 11/26/18 Tramadol HCl (Tramadol HCl) 50 Mg Tablet, 50 MG PO Q4 PRN for PAIN, #20 TAB Prov:MICKY CHAN MD 11/26/18 Ondansetron Hcl* (Zofran*) 8 Mg Tablet, 8 MG PO Q6H PRN for NAUSEA AND OR VOMITING, #20 TAB Prov:JENNY RAWLS MD 11/20/18 Levofloxacin* (Levaquin*) 750 Mg Tablet, 750 MG PO DAILY for 7 Days, TAB Prov:JENNY RAWLS MD 11/20/18 Sucralfate* (Carafate*) 1 Gm/10 Ml Susp, 1 GM PO QID for 30 Days, #1 EA 2 Refills Prov:LIUDMILA DUMONT MD 11/17/18 Metoclopramide Hcl* (Metoclopramide Hcl*) 10 Mg Tablet, 10 MG PO QID for 10 Days, #40 TAB Prov:LIUDMILA DUMONT MD 11/17/18 Acetaminophen* (Tylenol*) 325 Mg Tablet, 650 MG PO Q6H PRN for .PAIN 1-3 OR TEMP for 1 Day, TAB Prov:LIUDMILA DUMONT MD 11/17/18 Nadolol (Corgard) 40 Mg Tablet, 20 MG PO BID for 15 Days, #30 TAB Prov:LIUDMILA DUMONT MD 11/17/18 Pantoprazole* (Pantoprazole*) 40 Mg Tablet.dr, 40 MG PO BID@06,18 for 30 Days, #60 TAB 1 Refill Prov:LIUDMILA DUMONT MD 11/17/18 Reported Medications Amlodipine Besylate* (Amlodipine Besylate*) 10 Mg Tablet, 5 MG PO BID, #30 TAB 11/29/18 Calcium Carbonate/Vitamin D3 (Calcium 500 mg Chewable Tablet) 1 Each Tab.chew, 1 EACH PO DAILY, TAB.CHEW 11/14/18 Prednisone* (Prednisone*) 5 Mg Tab, 5 MG PO DAILY, TAB 11/14/18 Azathioprine* (Imuran*) 50 Mg Tab, 100 MG PO DAILY, TAB 11/14/18 Ergocalciferol (Vitamin D2) (VITAMIN D2) 50,000 Unit Capsule, 82964 UNIT PO QMONDAY 09/22/18 Medications Current Medications IV Flush (NS 3 ml) 3 ml PER PROTOCOL IV ; Start 11/29/18 at 07:00 Ondansetron HCl (Zofran Inj) 4 mg Q6H PRN IV NAUSEA/VOMITING Last administered on 11/30/18at 08:57; Admin Dose 4 MG; Start 11/29/18 at 07:00 Acetaminophen (Tylenol Tab) 650 mg Q6H PRN PO .PAIN 1-3 OR TEMP; Start 11/29/18 at 07:00 Acetaminophen/ Hydrocodone Bitart ([place] (5/325)) 1 tab Q6H PRN PO .MOD PAIN 4- 6 Last administered on 11/30/18at 10:04; Admin Dose 1 TAB; Start 11/29/18 at 07:00 Docusate Sodium (Colace) 100 mg Q12H PRN PO .CONSTIPATION; Start 11/29/18 at 07:00 Magnesium Hydroxide (Milk Of Mag) 30 ml DAILY PRN PO .CONSTIPATION; Start 11/29/18 at 07:00 Heparin Sodium (Porcine) (Heparin (5000 Units/1ml)) 5,000 unit Q12 SC Last administered on 11/30/18at 10:07; Admin Dose 5,000 UNIT; Start 11/29/18 at 09:00 Lorazepam (Ativan) 0.5 mg Q6H PRN IV ANXIETY; Start 11/29/18 at 07:00 Albuterol/ Ipratropium (Duoneb) 3 ml Q4H RESP THERAPY PRN HHN SHORTNESS OF BREATH; Start 11/29/18 at 07:00 Hydralazine HCl (Apresoline) 10 mg Q6H PRN IV for sys bp > 180; Start 11/29/18 at 07:00 Nitroglycerin (Nitroglycerin (Sl Tab) 0.4 Mg) 1 tab Q5M PRN SL ANGINA Last administered on 11/30/18 10:24; Admin Dose 1 TAB; Start 11/29/18 at 07:00 Amlodipine Besylate (Norvasc) 5 mg BID PO Last administered on 11/30/18 10:02; Admin Dose 5 MG; Start 11/30/18 at 09:00 Azathioprine (Imuran) 100 mg DAILY PO Last administered on 11/30/18 10:02; Admin Dose 100 MG; Start 11/30/18 at 09:00 Cyclobenzaprine HCl (Flexeril) 10 mg TID PO Last administered on 11/30/18 09:58; Admin Dose 10 MG; Start 11/30/18 at 09:00 Nadolol (Corgard) 20 mg BID PO Last administered on 11/30/18 10:01; Admin Dose 20 MG; Start 11/30/18 at 09:00 Prednisone (Prednisone) 5 mg DAILY PO Last administered on 11/30/18 10:02; Admin Dose 5 MG; Start 11/30/18 at 09:00 Tramadol HCl (Ultram) 50 mg Q4 PRN PO PAIN; Start 11/30/18 at 00:00 Calcium/Vitamin D (Oyster Shell/ Vit-D (500/200)) 1 tab DAILY PO Last administered on 11/30/18 09:59; Admin Dose 1 TAB; Start 11/30/18 at 09:00 Sucralfate (Carafate Susp) 1 gm QID PO Last administered on 11/30/18 10:01; Admin Dose 1 GM; Start 11/30/18 at 09:00 Pantoprazole (Protonix Iv) 40 mg BID@06,18 IV Last administered on 11/30/18 05:34; Admin Dose 40 MG; Start 11/30/18 at 06:00 Dextrose/Sodium Chloride 1,000 ml @ 150 mls/hr Q6H40M IV Last administered on 11/30/18 09:56; Admin Dose 150 MLS/HR; Start 11/30/18 at 00:00 Metoclopramide HCl (Reglan) 10 mg Q6H PRN IV nausae; Start 11/30/18 at 11:00 Morphine Sulfate (morphine) 4 mg Q4H PRN IV .SEVERE PAIN 7-10; Start 11/30/18 at 11:30 Allergies: Coded Allergies: avocado (Verified Allergy, Unknown, bumps inside her mouth, 11/16/18) vancomycin (Verified Allergy, Unknown, 11/14/18) Past Surgical History Past Surgical Hx: other Social History Alcohol Use: none Smoking Status: Never smoker Exam/Review of Systems Exam Vitals Vital Signs Date Temp Pulse Resp B/P (MAP) Pulse Ox O2 O2 Flow FiO2 Time Delivery Rate 11/30/18 99.2 105 18 135/76 96 Room Air 10:20 (95) Intake and Output 11/29/18 11/29/18 11/30/18 1515:00 23:00 07:00 IntakeIntake Total 1000 ml 1000 ml 950 ml BalanceBalance 1000 ml 1000 ml 950 ml Exam PHYSICAL EXAMINATION: GENERAL: Chronically ill appearing young woman, alert & oriented x 3, edema/swelling from chronic steroid use SKIN: No lesions. HEAD: Normocephalic, atraumatic, no tenderness. EYES: Pupils equal reactive to light, no discharge. EARS/NOSE AND THROAT: Ears normal, nose normal. NECK: Supple, no masses, thyroid normal. CHEST: Inspection within normal limits. CARDIOVASCULAR: Heart: Regular rate and rhythm RESPIRATORY: Lungs clear to auscultation. GASTROINTESTINAL AND LIVER: Abdomen: obese, soft, upper abdominal tenderness, non-distended, no hernias, no masses, normoactive bowel sounds. Rectal: Deferred. EXTREMITIES: No cyanosis, clubbing or edema. Results Result Diagram: 11/30/18 0501 11/30/18 0501 Results 24hrs Laboratory Tests Test 11/30/18 05:01 White Blood Count 9.7 # Red Blood Count 3.12 L Hemoglobin 8.3 L Hematocrit 27.3 L Mean Corpuscular Volume 87.5 Mean Corpuscular Hemoglobin 26.6 L Mean Corpuscular Hemoglobin Concent 30.4 L Red Cell Distribution Width 17.0 H Platelet Count 841 H Mean Platelet Volume 9.6 Immature Granulocytes % 0.600 H Neutrophils % 70.0 Lymphocytes % 7.8 L Monocytes % 15.7 H Eosinophils % 5.3 Basophils % 0.6 Nucleated Red Blood Cells % 1.8 H Immature Granulocytes # 0.060 H Neutrophils # 6.8 Lymphocytes # 0.8 Monocytes # 1.5 H Eosinophils # 0.5 Basophils # 0.1 Nucleated Red Blood Cells # 0.2 H Pathologist Review (Hematology) YES Sodium Level 140 Potassium Level 3.5 Chloride Level 110 Carbon Dioxide Level 24 Anion Gap 6 Blood Urea Nitrogen 5 L Creatinine 0.64 Est Glomerular Filtrat Rate mL/min > 60 Glucose Level 128 Hemoglobin A1c 5.4 Calcium Level 8.2 L Phosphorus Level 3.9 Magnesium Level 1.7 Triglycerides Level 92 Cholesterol Level 87 L LDL Cholesterol, Calculated 44 HDL Cholesterol 25 L Cholesterol/HDL Ratio 3.4 Lipase 10 L Thyroid Stimulating Hormone (TSH) 1.450 Medications Medication Current Medications IV Flush (NS 3 ml) 3 ml PER PROTOCOL IV ; Start 11/29/18 at 07:00 Ondansetron HCl (Zofran Inj) 4 mg Q6H PRN IV NAUSEA/VOMITING Last administered on 11/30/18at 08:57; Admin Dose 4 MG; Start 11/29/18 at 07:00 Acetaminophen (Tylenol Tab) 650 mg Q6H PRN PO .PAIN 1-3 OR TEMP; Start 11/29/18 at 07:00 Acetaminophen/ Hydrocodone Bitart ([place] (5/325)) 1 tab Q6H PRN PO .MOD PAIN 4- 6 Last administered on 11/30/18at 10:04; Admin Dose 1 TAB; Start 11/29/18 at 07:00 Docusate Sodium (Colace) 100 mg Q12H PRN PO .CONSTIPATION; Start 11/29/18 at 07:00 Magnesium Hydroxide (Milk Of Mag) 30 ml DAILY PRN PO .CONSTIPATION; Start 11/29/18 at 07:00 Heparin Sodium (Porcine) (Heparin (5000 Units/1ml)) 5,000 unit Q12 SC Last administered on 11/30/18at 10:07; Admin Dose 5,000 UNIT; Start 11/29/18 at 09:00 Lorazepam (Ativan) 0.5 mg Q6H PRN IV ANXIETY; Start 11/29/18 at 07:00 Albuterol/ Ipratropium (Duoneb) 3 ml Q4H RESP THERAPY PRN HHN SHORTNESS OF BREATH; Start 11/29/18 at 07:00 Hydralazine HCl (Apresoline) 10 mg Q6H PRN IV for sys bp > 180; Start 11/29/18 at 07:00 Nitroglycerin (Nitroglycerin (Sl Tab) 0.4 Mg) 1 tab Q5M PRN SL ANGINA Last administered on 11/30/18 10:24; Admin Dose 1 TAB; Start 11/29/18 at 07:00 Amlodipine Besylate (Norvasc) 5 mg BID PO Last administered on 11/30/18 10:02; Admin Dose 5 MG; Start 11/30/18 at 09:00 Azathioprine (Imuran) 100 mg DAILY PO Last administered on 11/30/18 10:02; Admin Dose 100 MG; Start 11/30/18 at 09:00 Cyclobenzaprine HCl (Flexeril) 10 mg TID PO Last administered on 11/30/18 09:58; Admin Dose 10 MG; Start 11/30/18 at 09:00 Nadolol (Corgard) 20 mg BID PO Last administered on 11/30/18 10:01; Admin Dose 20 MG; Start 11/30/18 at 09:00 Prednisone (Prednisone) 5 mg DAILY PO Last administered on 11/30/18 10:02; Admin Dose 5 MG; Start 11/30/18 at 09:00 Tramadol HCl (Ultram) 50 mg Q4 PRN PO PAIN; Start 11/30/18 at 00:00 Calcium/Vitamin D (Oyster Shell/ Vit-D (500/200)) 1 tab DAILY PO Last administered on 11/30/18 09:59; Admin Dose 1 TAB; Start 11/30/18 at 09:00 Sucralfate (Carafate Susp) 1 gm QID PO Last administered on 11/30/18 10:01; Admin Dose 1 GM; Start 11/30/18 at 09:00 Pantoprazole (Protonix Iv) 40 mg BID@06,18 IV Last administered on 11/30/18 05:34; Admin Dose 40 MG; Start 11/30/18 at 06:00 Dextrose/Sodium Chloride 1,000 ml @ 150 mls/hr Q6H40M IV Last administered on 6/5/19at 09:56; Admin Dose 150 MLS/HR; Start 11/30/18 at 00:00 Metoclopramide HCl (Reglan) 10 mg Q6H PRN IV nausae; Start 11/30/18 at 11:00 Morphine Sulfate (morphine) 4 mg Q4H PRN IV .SEVERE PAIN 7-10; Start 11/30/18 at 11:30 MONQIUE DE LA ROSA Nov 30, 2018 12:06
--- NOTE | 2018-11-30 12:38 | PN ---
Date/Time of Note Date/Time of Note DATE: 11/30/18 TIME: 12:35 Assessment/Plan VTE Prophylaxis Risk score (from Nsg)>0 risk: 2 Pharmacological prophylaxis: heparin Lines/Catheters IV Catheter Type (from Nrsg): Peripheral IV Assessment/Plan Hospital Course SIRS with bandemia 2/2 #2 Lupus flare with pancreatitis, pericarditis Severe arthritis, rheumatoid Chronic SLE History of gastritis History of extensive gastric ulcers Hypertension History of splenectomy Raynaud's syndrome Status post finger amputation Chronic liver cirrhosis with history of Esophageal varices likely 2/2 lupus -Last EGD and colonoscopy September 26, 2018 Dispo: * CT chest was ordered for concern for new chest pain and hx of extensive gastric ulceration * Radiology called with concerning CT chest report for mild to moderate pericardial effusion as well as pleural effusions. Official report is yet to be uploaded . In interim the will start treatment with colchicine and intrave nous steroids as patient has history of extensive gastric ulceration and cannot tolerate NSAIDs. Will get cardiology consultation and urgent echo. * It is unclear if findings are acute, however as patient is symptomatic with left-sided chest pain, will be more aggressive for now and can de-escalate care if cardiology recommends otherwise. Of note is that prior CT from November 29, 2017 did show a mild pericardial effusion Plan of care has been discussed with patient, questions answered and patient has verbalized understanding. Result Diagram: 11/30/18 0501 11/30/18 0501 Results 24hrs Laboratory Tests Test 11/30/18 05:01 White Blood Count 9.7 # Red Blood Count 3.12 L Hemoglobin 8.3 L Hematocrit 27.3 L Mean Corpuscular Volume 87.5 Mean Corpuscular Hemoglobin 26.6 L Mean Corpuscular Hemoglobin Concent 30.4 L Red Cell Distribution Width 17.0 H Platelet Count 841 H Mean Platelet Volume 9.6 Immature Granulocytes % 0.600 H Neutrophils % 70.0 Lymphocytes % 7.8 L Monocytes % 15.7 H Eosinophils % 5.3 Basophils % 0.6 Nucleated Red Blood Cells % 1.8 H Immature Granulocytes # 0.060 H Neutrophils # 6.8 Lymphocytes # 0.8 Monocytes # 1.5 H Eosinophils # 0.5 Basophils # 0.1 Nucleated Red Blood Cells # 0.2 H Pathologist Review (Hematology) YES Sodium Level 140 Potassium Level 3.5 Chloride Level 110 Carbon Dioxide Level 24 Anion Gap 6 Blood Urea Nitrogen 5 L Creatinine 0.64 Est Glomerular Filtrat Rate mL/min > 60 Glucose Level 128 Hemoglobin A1c 5.4 Calcium Level 8.2 L Phosphorus Level 3.9 Magnesium Level 1.7 Triglycerides Level 92 Cholesterol Level 87 L LDL Cholesterol, Calculated 44 HDL Cholesterol 25 L Cholesterol/HDL Ratio 3.4 Lipase 10 L Thyroid Stimulating Hormone (TSH) 1.450 Subjective 24 Hr Interval Summary Free Text/Dictation new complaint of L sided chest pain , separate from epigastric pain Morphine is not providing complete relief Exam/Review of Systems Exam Vitals Vital Signs Date Temp Pulse Resp B/P (MAP) Pulse Ox O2 O2 Flow FiO2 Time Delivery Rate 11/30/18 99.2 105 18 135/76 96 Room Air 10:20 (95) Intake and Output 11/29/18 11/29/18 11/30/18 1515:00 23:00 07:00 IntakeIntake Total 1000 ml 1000 ml 950 ml BalanceBalance 1000 ml 1000 ml 950 ml Exam General: A&O x3, answering questions appropriately, anxious HEENT: NC/ AT. PERRL. EOM intact Neck: supple CVS: S1, S2, RRR. no murmurs. no pain on chest wall palpation Lungs: CTA b/l. no wheezing or rhonchi Abd: soft, nontender, +BS Ext: moving all extremities, chronic skin: no rashes Results Results 24hrs Laboratory Tests Test 11/30/18 05:01 White Blood Count 9.7 # Red Blood Count 3.12 L Hemoglobin 8.3 L Hematocrit 27.3 L Mean Corpuscular Volume 87.5 Mean Corpuscular Hemoglobin 26.6 L Mean Corpuscular Hemoglobin Concent 30.4 L Red Cell Distribution Width 17.0 H Platelet Count 841 H Mean Platelet Volume 9.6 Immature Granulocytes % 0.600 H Neutrophils % 70.0 Lymphocytes % 7.8 L Monocytes % 15.7 H Eosinophils % 5.3 Basophils % 0.6 Nucleated Red Blood Cells % 1.8 H Immature Granulocytes # 0.060 H Neutrophils # 6.8 Lymphocytes # 0.8 Monocytes # 1.5 H Eosinophils # 0.5 Basophils # 0.1 Nucleated Red Blood Cells # 0.2 H Pathologist Review (Hematology) YES Sodium Level 140 Potassium Level 3.5 Chloride Level 110 Carbon Dioxide Level 24 Anion Gap 6 Blood Urea Nitrogen 5 L Creatinine 0.64 Est Glomerular Filtrat Rate mL/min > 60 Glucose Level 128 Hemoglobin A1c 5.4 Calcium Level 8.2 L Phosphorus Level 3.9 Magnesium Level 1.7 Triglycerides Level 92 Cholesterol Level 87 L LDL Cholesterol, Calculated 44 HDL Cholesterol 25 L Cholesterol/HDL Ratio 3.4 Lipase 10 L Thyroid Stimulating Hormone (TSH) 1.450 Medications Medication Current Medications IV Flush (NS 3 ml) 3 ml PER PROTOCOL IV ; Start 11/29/18 at 07:00 Ondansetron HCl (Zofran Inj) 4 mg Q6H PRN IV NAUSEA/VOMITING Last administered on 11/30/18at 08:57; Admin Dose 4 MG; Start 11/29/18 at 07:00 Acetaminophen (Tylenol Tab) 650 mg Q6H PRN PO .PAIN 1-3 OR TEMP; Start 11/29/18 at 07:00 Acetaminophen/ Hydrocodone Bitart ([place] (5/325)) 1 tab Q6H PRN PO .MOD PAIN 4- 6 Last administered on 11/30/18at 10:04; Admin Dose 1 TAB; Start 11/29/18 at 07:00 Docusate Sodium (Colace) 100 mg Q12H PRN PO .CONSTIPATION; Start 11/29/18 at 07:00 Magnesium Hydroxide (Milk Of Mag) 30 ml DAILY PRN PO .CONSTIPATION; Start 11/29/18 at 07:00 Heparin Sodium (Porcine) (Heparin (5000 Units/1ml)) 5,000 unit Q12 SC Last administered on 11/30/18at 10:07; Admin Dose 5,000 UNIT; Start 11/29/18 at 09:00 Lorazepam (Ativan) 0.5 mg Q6H PRN IV ANXIETY; Start 11/29/18 at 07:00 Albuterol/ Ipratropium (Duoneb) 3 ml Q4H RESP THERAPY PRN HHN SHORTNESS OF BREATH; Start 11/29/18 at 07:00 Hydralazine HCl (Apresoline) 10 mg Q6H PRN IV for sys bp > 180; Start 11/29/18 at 07:00 Nitroglycerin (Nitroglycerin (Sl Tab) 0.4 Mg) 1 tab Q5M PRN SL ANGINA Last administered on 11/30/18at 10:24; Admin Dose 1 TAB; Start 11/29/18 at 07:00 Amlodipine Besylate (Norvasc) 5 mg BID PO Last administered on 11/30/18 10:02; Admin Dose 5 MG; Start 11/30/18 at 09:00 Azathioprine (Imuran) 100 mg DAILY PO Last administered on 11/30/18 10:02; Admin Dose 100 MG; Start 11/30/18 at 09:00 Cyclobenzaprine HCl (Flexeril) 10 mg TID PO Last administered on 11/30/18 09:58; Admin Dose 10 MG; Start 11/30/18 at 09:00 Nadolol (Corgard) 20 mg BID PO Last administered on 11/30/18 10:01; Admin Dose 20 MG; Start 11/30/18 at 09:00 Prednisone (Prednisone) 5 mg DAILY PO Last administered on 11/30/18 10:02; Admin Dose 5 MG; Start 11/30/18 at 09:00 Tramadol HCl (Ultram) 50 mg Q4 PRN PO PAIN; Start 11/30/18 at 00:00 Calcium/Vitamin D (Oyster Shell/ Vit-D (500/200)) 1 tab DAILY PO Last administered on 11/30/18 09:59; Admin Dose 1 TAB; Start 11/30/18 at 09:00 Sucralfate (Carafate Susp) 1 gm QID PO Last administered on 11/30/18 10:01; Admin Dose 1 GM; Start 11/30/18 at 09:00 Pantoprazole (Protonix Iv) 40 mg BID@06,18 IV Last administered on 11/30/18 05:34; Admin Dose 40 MG; Start 11/30/18 at 06:00 Dextrose/Sodium Chloride 1,000 ml @ 75 mls/hr [id number] IV Last administered on 11/30/18 09:56; Admin Dose 150 MLS/HR; Start 11/30/18 at 00:00 Metoclopramide HCl (Reglan) 10 mg Q6H PRN IV nausae Last administered on 11/30/18 12:09; Admin Dose 10 MG; Start 11/30/18 at 11:00 Morphine Sulfate (morphine) 4 mg Q4H PRN IV .SEVERE PAIN 7-10 Last administered on 11/30/18 12:09; Admin Dose 4 MG; Start 11/30/18 at 11:30 CHERYLE LEONARD Nov 30, 2018 12:38
[2018-11-30] MEDS ORDERED: MAGNESIUM SULFATE 1 GM/D5W 100 ML IVPB ONE (13:00)
[2018-11-30] MEDS: COLCHICINE 0.6 MG TAB PO SCH ×2 (13:09→21:49)
--- NOTE | 2018-11-30 16:20 | CONS ---
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 No tamponade physiology. Pleuritic chest pain. Due to lupus flare Acute pancreatitis: seen on CT but lipase ok SLE flare with serositis RA Reynauds Splenectomy Liver cirrhosis with varices h/o gastric ulcers -agree with colchicine 0.6mg BID. No NSAIDs with ulcers -solumedrol 125mg given by Dr. Leonard. She will have rheumatology eval as well -decrease IVF as showing signs of fluid overload as well Consultation Date/Type/Reason Admit Date/Time Nov 29, 2018 at 06:15 Date of Consultation: Nov 30, 2018 Type of Consult Cardiology Reason for Consultation pericardial effusion, chest pain Requesting Provider: CHERYLE LEONARD Date/Time of Note DATE: 11/30/18 TIME: 16:11 Hx of Present Illness 33 yo F with a h/o SLE, RA, Raynauds, splenectomy, liver cirrhosis with varices, gastric ulcers, who presented with abdominal and chest pain. She has been having these symptoms for about 2 months now and 3 weeks ago her immunomodulatory treatment was revised without effect. The abdominal pain is epigastric and worse with food intake. CT showed pancreatitis though lipase is normal. Also CT showed a moderate pericardial effusion. She has constant, pleuritic chest pain for 2 months. No orthopnea, PND, edema. per hPI Past Medical History per hpi Home Meds Active Scripts Cyclobenzaprine Hcl* (Cyclobenzaprine Hcl*) 10 Mg Tablet, 10 MG PO TID, #15 TAB Prov:MICKY CHAN MD 11/26/18 Tramadol HCl (Tramadol HCl) 50 Mg Tablet, 50 MG PO Q4 PRN for PAIN, #20 TAB Prov:MICKY CHAN MD 11/26/18 Ondansetron Hcl* (Zofran*) 8 Mg Tablet, 8 MG PO Q6H PRN for NAUSEA AND OR VOMITING, #20 TAB Prov:JENNY RAWLS MD 11/20/18 Levofloxacin* (Levaquin*) 750 Mg Tablet, 750 MG PO DAILY for 7 Days, TAB Prov:JENNY RAWLS MD 11/20/18 Sucralfate* (Carafate*) 1 Gm/10 Ml Susp, 1 GM PO QID for 30 Days, #1 EA 2 Refills Prov:LIUDMILA DUMONT MD 11/17/18 Metoclopramide Hcl* (Metoclopramide Hcl*) 10 Mg Tablet, 10 MG PO QID for 10 Days, #40 TAB Prov:LIUDMILA DUMONT MD 11/17/18 Acetaminophen* (Tylenol*) 325 Mg Tablet, 650 MG PO Q6H PRN for .PAIN 1-3 OR TEMP for 1 Day, TAB Prov:LIUDMILA DUMONT MD 11/17/18 Nadolol (Corgard) 40 Mg Tablet, 20 MG PO BID for 15 Days, #30 TAB Prov:LIUDMILA DUMONT MD 11/17/18 Pantoprazole* (Pantoprazole*) 40 Mg Tablet.dr, 40 MG PO BID@06,18 for 30 Days, #60 TAB 1 Refill Prov:LIUDMILA DUMONT MD 11/17/18 Reported Medications Amlodipine Besylate* (Amlodipine Besylate*) 10 Mg Tablet, 5 MG PO BID, #30 TAB 11/29/18 Calcium Carbonate/Vitamin D3 (Calcium 500 mg Chewable Tablet) 1 Each Tab.chew, 1 EACH PO DAILY, TAB.CHEW 11/14/18 Prednisone* (Prednisone*) 5 Mg Tab, 5 MG PO DAILY, TAB 11/14/18 Azathioprine* (Imuran*) 50 Mg Tab, 100 MG PO DAILY, TAB 11/14/18 Ergocalciferol (Vitamin D2) (VITAMIN D2) 50,000 Unit Capsule, 84018 UNIT PO QMONDAY 09/22/18 Medications Current Medications IV Flush (NS 3 ml) 3 ml PER PROTOCOL IV ; Start 11/29/18 at 07:00 Ondansetron HCl (Zofran Inj) 4 mg Q6H PRN IV NAUSEA/VOMITING Last administered on 11/30/18at 08:57; Admin Dose 4 MG; Start 11/29/18 at 07:00 Acetaminophen (Tylenol Tab) 650 mg Q6H PRN PO .PAIN 1-3 OR TEMP; Start 11/29/18 at 07:00 Acetaminophen/ Hydrocodone Bitart ([place] (5/325)) 1 tab Q6H PRN PO .MOD PAIN 4- 6 Last administered on 11/30/18at 10:04; Admin Dose 1 TAB; Start 11/29/18 at 07:00 Docusate Sodium (Colace) 100 mg Q12H PRN PO .CONSTIPATION; Start 11/29/18 at 07:00 Magnesium Hydroxide (Milk Of Mag) 30 ml DAILY PRN PO .CONSTIPATION; Start 11/29/18 at 07:00 Heparin Sodium (Porcine) (Heparin (5000 Units/1ml)) 5,000 unit Q12 SC Last administered on 11/30/18at 10:07; Admin Dose 5,000 UNIT; Start 11/29/18 at 09:00 Lorazepam (Ativan) 0.5 mg Q6H PRN IV ANXIETY; Start 11/29/18 at 07:00 Albuterol/ Ipratropium (Duoneb) 3 ml Q4H RESP THERAPY PRN HHN SHORTNESS OF BREATH; Start 11/29/18 at 07:00 Hydralazine HCl (Apresoline) 10 mg Q6H PRN IV for sys bp > 180; Start 11/29/18 at 07:00 Nitroglycerin (Nitroglycerin (Sl Tab) 0.4 Mg) 1 tab Q5M PRN SL ANGINA Last administered on 11/30/18 10:24; Admin Dose 1 TAB; Start 11/29/18 at 07:00 Amlodipine Besylate (Norvasc) 5 mg BID PO Last administered on 11/30/18 10:02; Admin Dose 5 MG; Start 11/30/18 at 09:00 Azathioprine (Imuran) 100 mg DAILY PO Last administered on 11/30/18 10:02; Admin Dose 100 MG; Start 11/30/18 at 09:00 Cyclobenzaprine HCl (Flexeril) 10 mg TID PO Last administered on 11/30/18 12:59; Admin Dose 10 MG; Start 11/30/18 at 09:00 Nadolol (Corgard) 20 mg BID PO Last administered on 11/30/18 10:01; Admin Dose 20 MG; Start 11/30/18 at 09:00 Prednisone (Prednisone) 5 mg DAILY PO Last administered on 11/30/18 10:02; Admin Dose 5 MG; Start 11/30/18 at 09:00 Tramadol HCl (Ultram) 50 mg Q4 PRN PO PAIN; Start 11/30/18 at 00:00 Calcium/Vitamin D (Oyster Shell/ Vit-D (500/200)) 1 tab DAILY PO Last administered on 11/30/18 09:59; Admin Dose 1 TAB; Start 11/30/18 at 09:00 Sucralfate (Carafate Susp) 1 gm QID PO Last administered on 11/30/18 12:59; Admin Dose 1 GM; Start 11/30/18 at 09:00 Pantoprazole (Protonix Iv) 40 mg BID@06,18 IV Last administered on 11/30/18 05:34; Admin Dose 40 MG; Start 11/30/18 at 06:00 Dextrose/Sodium Chloride 1,000 ml @ 75 mls/hr [id number] IV Last administered on 11/30/18 09:56; Admin Dose 150 MLS/HR; Start 11/30/18 at 00:00 Metoclopramide HCl (Reglan) 10 mg Q6H PRN IV nausae Last administered on 11/30/18 12:09; Admin Dose 10 MG; Start 11/30/18 at 11:00 Morphine Sulfate (morphine) 4 mg Q4H PRN IV .SEVERE PAIN 7-10 Last administered on 11/30/18 12:09; Admin Dose 4 MG; Start 11/30/18 at 11:30 Colchicine (Colchicine) 0.6 mg BID PO Last administered on 11/30/18 13:09; Admin Dose 0.6 MG; Start 11/30/18 at 12:30 Allergies: Coded Allergies: avocado (Verified Allergy, Unknown, bumps inside her mouth, 11/16/18) vancomycin (Verified Allergy, Unknown, 11/14/18) Past Surgical History Past Surgical Hx: other Social History Alcohol Use: none Smoking Status: Never smoker Exam/Review of Systems Vital Signs Vitals Vital Signs Date Temp Pulse Resp B/P (MAP) Pulse Ox O2 O2 Flow FiO2 Time Delivery Rate 11/30/18 74 13:36 11/30/18 99.2 18 135/76 96 Room Air 10:20 (95) Intake and Output 11/29/18 11/29/18 11/30/18 1414:59 22:59 06:59 IntakeIntake Total 1000 ml 1000 ml 950 ml BalanceBalance 1000 ml 1000 ml 950 ml Exam Constitutional: alert, oriented Psych: no complaints, nl mood/affect Neck: jvd (9cm) Respiratory: crackles/rales (mild), diminished breath sounds; No clear to auscultation Cardiovascular: regular rate and rhythm; No edema, No rub, No systolic murmur Gastrointestinal: soft; No non-tender (epigastric) Neurological: nl mental status Labs Result Diagram: 11/30/18 0501 11/30/18 0501 Results 24hrs Laboratory Tests Test 11/30/18 05:01 11/30/18 12:24 White Blood Count 9.7 # Red Blood Count 3.12 L Hemoglobin 8.3 L Hematocrit 27.3 L Mean Corpuscular Volume 87.5 Mean Corpuscular Hemoglobin 26.6 L Mean Corpuscular Hemoglobin Concent 30.4 L Red Cell Distribution Width 17.0 H Platelet Count 841 H Mean Platelet Volume 9.6 Immature Granulocytes % 0.600 H Neutrophils % 70.0 Lymphocytes % 7.8 L Monocytes % 15.7 H Eosinophils % 5.3 Basophils % 0.6 Nucleated Red Blood Cells % 1.8 H Immature Granulocytes # 0.060 H Neutrophils # 6.8 Lymphocytes # 0.8 Monocytes # 1.5 H Eosinophils # 0.5 Basophils # 0.1 Nucleated Red Blood Cells # 0.2 H Pathologist Review (Hematology) YES Sodium Level 140 Potassium Level 3.5 Chloride Level 110 Carbon Dioxide Level 24 Anion Gap 6 Blood Urea Nitrogen 5 L Creatinine 0.64 Est Glomerular Filtrat Rate mL/min > 60 Glucose Level 128 Hemoglobin A1c 5.4 Calcium Level 8.2 L Phosphorus Level 3.9 Magnesium Level 1.7 Triglycerides Level 92 76 Cholesterol Level 87 L LDL Cholesterol, Calculated 44 HDL Cholesterol 25 L Cholesterol/HDL Ratio 3.4 Lipase 10 L Thyroid Stimulating Hormone (TSH) 1.450 Medications Medications Current Medications IV Flush (NS 3 ml) 3 ml PER PROTOCOL IV ; Start 11/29/18 at 07:00 Ondansetron HCl (Zofran Inj) 4 mg Q6H PRN IV NAUSEA/VOMITING Last administered on 11/30/18at 08:57; Admin Dose 4 MG; Start 11/29/18 at 07:00 Acetaminophen (Tylenol Tab) 650 mg Q6H PRN PO .PAIN 1-3 OR TEMP; Start 11/29/18 at 07:00 Acetaminophen/ Hydrocodone Bitart ([place] (5/325)) 1 tab Q6H PRN PO .MOD PAIN 4- 6 Last administered on 11/30/18 10:04; Admin Dose 1 TAB; Start 11/29/18 at 07:00 Docusate Sodium (Colace) 100 mg Q12H PRN PO .CONSTIPATION; Start 11/29/18 at 07:00 Magnesium Hydroxide (Milk Of Mag) 30 ml DAILY PRN PO .CONSTIPATION; Start 11/29/18 at 07:00 Heparin Sodium (Porcine) (Heparin (5000 Units/1ml)) 5,000 unit Q12 SC Last administered on 11/30/18 10:07; Admin Dose 5,000 UNIT; Start 11/29/18 at 09:00 Lorazepam (Ativan) 0.5 mg Q6H PRN IV ANXIETY; Start 11/29/18 at 07:00 Albuterol/ Ipratropium (Duoneb) 3 ml Q4H RESP THERAPY PRN HHN SHORTNESS OF BREATH; Start 11/29/18 at 07:00 Hydralazine HCl (Apresoline) 10 mg Q6H PRN IV for sys bp > 180; Start 11/29/18 at 07:00 Nitroglycerin (Nitroglycerin (Sl Tab) 0.4 Mg) 1 tab Q5M PRN SL ANGINA Last administered on 11/30/18 10:24; Admin Dose 1 TAB; Start 11/29/18 at 07:00 Amlodipine Besylate (Norvasc) 5 mg BID PO Last administered on 11/30/18 10:02; Admin Dose 5 MG; Start 11/30/18 at 09:00 Azathioprine (Imuran) 100 mg DAILY PO Last administered on 11/30/18 10:02; Admin Dose 100 MG; Start 11/30/18 at 09:00 Cyclobenzaprine HCl (Flexeril) 10 mg TID PO Last administered on 11/30/18 12:59; Admin Dose 10 MG; Start 11/30/18 at 09:00 Nadolol (Corgard) 20 mg BID PO Last administered on 11/30/18 10:01; Admin Dose 20 MG; Start 11/30/18 at 09:00 Prednisone (Prednisone) 5 mg DAILY PO Last administered on 11/30/18 10:02; Admin Dose 5 MG; Start 11/30/18 at 09:00 Tramadol HCl (Ultram) 50 mg Q4 PRN PO PAIN; Start 11/30/18 at 00:00 Calcium/Vitamin D (Oyster Shell/ Vit-D (500/200)) 1 tab DAILY PO Last administered on 11/30/18 09:59; Admin Dose 1 TAB; Start 11/30/18 at 09:00 Sucralfate (Carafate Susp) 1 gm QID PO Last administered on 11/30/18 12:59; Admin Dose 1 GM; Start 11/30/18 at 09:00 Pantoprazole (Protonix Iv) 40 mg BID@06,18 IV Last administered on 11/30/18 05:34; Admin Dose 40 MG; Start 11/30/18 at 06:00 Dextrose/Sodium Chloride 1,000 ml @ 75 mls/hr [id number] IV Last administered on 11/30/18 09:56; Admin Dose 150 MLS/HR; Start 11/30/18 at 00:00 Metoclopramide HCl (Reglan) 10 mg Q6H PRN IV nausae Last administered on 11/30/18 12:09; Admin Dose 10 MG; Start 11/30/18 at 11:00 Morphine Sulfate (morphine) 4 mg Q4H PRN IV .SEVERE PAIN 7-10 Last administered on 11/30/18 12:09; Admin Dose 4 MG; Start 11/30/18 at 11:30 Colchicine (Colchicine) 0.6 mg BID PO Last administered on 11/30/18 13:09; Admin Dose 0.6 MG; Start 11/30/18 at 12:30 MEET GAYLE Nov 30, 2018 16:20
--- NOTE | 2018-11-30 17:50 | RADRPT ---
Echocardiogram Report Patient Name: HAYDE MURILLOPatient ID: [id number] : 1985 (33y 9m)Study Date: 11/30/2018 3:05:50 PM Gender: FAccession #: [id number] Tech: Rudolph Prabhakar [facility] Location: [facility] Ref.Physician: CHERYLE LEONARD Height(Cm): BSA: Weight(Kg): Quality: AdequateOrder Physician: CHERYLE LEONARD Account #: Procedures: Echocardiographic Report: Transthoracic echocardiogram with complete 2D, M-Mode, and doppler examination. Indications: Pericardial Effusion. Measurements: 2D/M Mode Doppler Measurement Value Normal Range Measurement Value Normal Range LVIDd 2D 5.1 [ 3.8 - 5.2 ] cm AV Peak Matheus 1.6 [ 100.0 - 170.0 ] cm/sec LVIDs 2D 3.5 [ 2.2 - 3.5 ] cm AV Peak PG 10.0 [ 2.0 - 9.0 ] mmHg LVPWd 2D 1.0 [ 0.6 - 0.9 ] cm LVOT Peak Matheus 1.4 [ 70.0 - 110.0 ] cm/sec IVSd 2D 1.1 [ 0.6 - 0.9 ] cm LVOT Peak PG 8.0 [ 2.0 - 6.0 ] mmHg AoR Diam 2D 2.5 [ 2.3 - 3.1 ] cm MV E Peak Matheus 0.8 [ 60.0 - 130.0 ] cm/sec EDV 2D 122.0 [ 46.0 - 106.0 ] ml MV A Peak Matheus 0.7 [ 100.0 - 120.0 ] cm/sec ESV 2D 50.2 [ 14.0 - 42.0 ] ml MV E/A 1.1 [ 0.8 - 1.5 ] ratio EF 2D 58.9 [ 54.0 - 74.0 ] percent MV Decel Time 162 [ 104 - 258 ] msec LA Dimen 2D 3.3 [ 2.7 - 3.8 ] cm Lat E` Matheus 0.1 [ 10.0 - 15.0 ] cm/sec Lateral E/E` 11.8 [ 1.0 - 2.0 ] ratio MV E/A 1.1 [ 0.8 - 1.5 ] ratio TR Peak Matheus 2.2 [ 100.0 - 280.0 ] cm/sec TR Peak PG 19.0 mmHg RVSP 34.0 [ 10.0 - 36.0 ] mmHg Findings: Left Ventricle: Normal left ventricular systolic function. Normal left ventricular cavity size. Normal left ventricular wall thickness. Ejection fraction is visually estimated at 55 %. Tissue Doppler/Mitral Doppler indices are consistent with impaired relaxation (Stage I diastolic dysfunction). Right Ventricle: Normal right ventricular size. Normal right ventricular systolic function. Left Atrium: The left atrium is normal in size. Right Atrium: The right atrium is normal in size. Mitral Valve: Normal appearance and function of the mitral valve with trace physiologic regurgitation. Aortic Valve: Normal appearance of the aortic valve. No significant aortic stenosis or insufficiency. Tricuspid Valve: Normal appearance of the tricuspid valve. The estimated Peak RVSP is 27 mmHg. There is trace tricuspid regurgitation. Pericardium: Small to borderliine moderate circumferential pericardial effusion without evidence of tamponade. Aorta: Normal aortic root. IVC: Normal size and no respiratory collapse consistent with elevated right atrial pressure. Dilated IVC without respiratory collapse consistent with elevated right atrial pressure. Conclusions: Normal left ventricular systolic function. Normal left ventricular cavity size. Normal left ventricular wall thickness. Ejection fraction is visually estimated at 55 %. Tissue Doppler/Mitral Doppler indices are consistent with impaired relaxation (Stage I diastolic dysfunction). No significant valvular stenosis or regurgitation seen. Small to borderliine moderate circumferential pericardial effusion without evidence of tamponade. The estimated Peak RVSP is 27 mmHg. Normal size and no respiratory collapse consistent with elevated right atrial pressure. Dilated IVC without respiratory collapse consistent with elevated right atrial pressure. Electronically Signed By: Jd Blevins 2018-11-30 17:49:49 PDT
[2018-11-30] MEDS: METHYLPREDNISOLONE 40 MG INJ IV SCH (21:54)
[2018-12-01] VITALS (9 sets, daily range): BP systolic 107–136; BP diastolic 64–89; PULSE 60–88; RESP 18
[2018-12-01] MEDS: PANTOPRAZOLE 40 MG INJ IV SCH ×2 (05:38→18:00)
[2018-12-01] MEDS: ONDANSETRON 4 MG INJ IV PRN ×2 (05:38→20:58)
[2018-12-01] MEDS: METHYLPREDNISOLONE 40 MG INJ IV SCH ×2 (05:38→13:20)
[2018-12-01] MEDS: morphine 4 MG/ML VIAL IV PRN ×3 (05:39→20:58)
[2018-12-01] MEDS: NADOLOL 40 MG TAB PO SCH ×2 (08:00→20:56)
[2018-12-01] MEDS: CALCIUM/VITAMIN D (500/200) TAB PO SCH (08:00)
[2018-12-01] MEDS: COLCHICINE 0.6 MG TAB PO SCH ×2 (08:00→20:56)
[2018-12-01] MEDS: CYCLOBENZAPRINE 10 MG TAB PO SCH ×3 (08:00→20:58)
[2018-12-01] MEDS: AMLODIPINE 10 MG TAB PO SCH ×2 (08:01→20:57)
[2018-12-01] MEDS: DEXTROSE 5%-0.45% NACL 1,000 ML IV SCH (08:01)
[2018-12-01] MEDS: SUCRALFATE (100 MG/ML) 10ML CUP PO SCH ×4 (08:01→20:57)
[2018-12-01] MEDS: AZATHIOPRINE 50 MG TAB PO SCH (08:12)
[2018-12-01] MEDS: HEPARIN 5,000 UNIT/1 ML VIAL SC SCH ×2 (08:12→21:29)
--- NOTE | 2018-12-01 11:11 | PN ---
Date/Time of Note Date/Time of Note DATE: 12/01/18 TIME: 11:10 Assessment/Plan VTE Prophylaxis Risk score (from Nsg)>0 risk: 2 Pharmacological prophylaxis: NA/contraindicated Pharm contraindication: low risk/ambulating Lines/Catheters IV Catheter Type (from Nrsg): Peripheral IV Urinary Cath still in place: No Assessment/Plan Hospital Course Subjective : sob and cp slightly better Objective : General: A&O x3, answering questions appropriately, anxious HEENT: NC/ AT. PERRL. EOM intact Neck: supple CVS: S1, S2, RRR. no murmurs. no pain on chest wall palpation Lungs: CTA b/l. no wheezing or rhonchi Abd: soft, nontender, +BS Ext: moving all extremities, chronic skin: no rashes MRCP showed postsurgical change from prior splenectomy, he did confirm presence of gallstones or polyps in the gallbladder but no biliary ductal dilatation or gross choledocholithiasis and a degree of mild pancreatitis. Assessment and plan: SIRS with bandemia 2/2 #2 -now with steroid induced leucocytosis Lupus flare with pancreatitis, pericarditis -Moderate pericardial effusion without evidence of tamponade -Appreciate ccardiology review, no tamponade at this time, no indication for pericardiocentesis -Continue colchicine 0.6 twice daily and ongoing Solu-Medrol -Rheumatology consultation also obtained, await recommendations Severe arthritis, rheumatoid Chronic SLE History of gastritis History of extensive gastric ulcers -Mildly patulous esophagus with air and dependent debris within the distal segment, which may be secondary to reflux. 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 Interval increase in moderate left pleural effusion, compared to abdominal CT 11/29/2018, with adjacent atelectasis in the left lower lobe and lingula. -plan for thoracentesis Status post splenectomy Dispo: -continue on tele for now -thoracentesis today -continue Nsaids/ steroids -advance diet ? -await rheumatology eval and recs -continue supportive care . Result Diagram: 12/01/18 0549 12/01/18 0549 Results 24hrs Laboratory Tests Test 11/30/18 12:24 11/30/18 16:51 12/01/18 05:49 Triglycerides Level 76 Erythrocyte Sedimentation Rate 40 H C-Reactive Protein 8.4 H White Blood Count 13.1 #H Red Blood Count 3.15 L Hemoglobin 8.5 L Hematocrit 27.5 L Mean Corpuscular Volume 87.3 Mean Corpuscular Hemoglobin 27.0 L Mean Corpuscular Hemoglobin Concent 30.9 L Red Cell Distribution Width 17.0 H Platelet Count 759 H Mean Platelet Volume 9.6 Immature Granulocytes % 0.800 H Neutrophils % 90.8 H Lymphocytes % 1.8 L Monocytes % 6.5 Eosinophils % 0.0 Basophils % 0.1 Nucleated Red Blood Cells % 1.7 H Immature Granulocytes # 0.100 H Neutrophils # 11.9 H Lymphocytes # 0.2 L Monocytes # 0.9 Eosinophils # 0.0 Basophils # 0.0 Nucleated Red Blood Cells # 0.2 H Sodium Level 139 Potassium Level 4.1 Chloride Level 106 Carbon Dioxide Level 25 Anion Gap 8 Blood Urea Nitrogen 11 Creatinine 0.57 Est Glomerular Filtrat Rate mL/min > 60 Glucose Level 133 Calcium Level 9.0 Amylase Level 40 Lipase < 10 L Exam/Review of Systems Exam Vitals Vital Signs Date Temp Pulse Resp B/P (MAP) Pulse Ox O2 O2 Flow FiO2 Time Delivery Rate 12/01/18 81 08:01 12/01/18 98.4 18 132/89 97 07:44 (103) 11/30/18 Room Air 16:21 Intake and Output 11/30/18 11/30/18 12/01/18 1515:00 23:00 07:00 IntakeIntake Total 650 ml 75 ml BalanceBalance 650 ml 75 ml Results Results 24hrs Laboratory Tests Test 11/30/18 12:24 11/30/18 16:51 12/01/18 05:49 Triglycerides Level 76 Erythrocyte Sedimentation Rate 40 H C-Reactive Protein 8.4 H White Blood Count 13.1 #H Red Blood Count 3.15 L Hemoglobin 8.5 L Hematocrit 27.5 L Mean Corpuscular Volume 87.3 Mean Corpuscular Hemoglobin 27.0 L Mean Corpuscular Hemoglobin Concent 30.9 L Red Cell Distribution Width 17.0 H Platelet Count 759 H Mean Platelet Volume 9.6 Immature Granulocytes % 0.800 H Neutrophils % 90.8 H Lymphocytes % 1.8 L Monocytes % 6.5 Eosinophils % 0.0 Basophils % 0.1 Nucleated Red Blood Cells % 1.7 H Immature Granulocytes # 0.100 H Neutrophils # 11.9 H Lymphocytes # 0.2 L Monocytes # 0.9 Eosinophils # 0.0 Basophils # 0.0 Nucleated Red Blood Cells # 0.2 H Sodium Level 139 Potassium Level 4.1 Chloride Level 106 Carbon Dioxide Level 25 Anion Gap 8 Blood Urea Nitrogen 11 Creatinine 0.57 Est Glomerular Filtrat Rate mL/min > 60 Glucose Level 133 Calcium Level 9.0 Amylase Level 40 Lipase < 10 L Medications Medication Current Medications IV Flush (NS 3 ml) 3 ml PER PROTOCOL IV ; Start 11/29/18 at 07:00 Ondansetron HCl (Zofran Inj) 4 mg Q6H PRN IV NAUSEA/VOMITING Last administered on 12/01/18at 05:38; Admin Dose 4 MG; Start 11/29/18 at 07:00 Acetaminophen (Tylenol Tab) 650 mg Q6H PRN PO .PAIN 1-3 OR TEMP; Start 11/29/18 at 07:00 Acetaminophen/ Hydrocodone Bitart ([place] (5/325)) 1 tab Q6H PRN PO .MOD PAIN 4- 6 Last administered on 11/30/18at 10:04; Admin Dose 1 TAB; Start 11/29/18 at 07:00 Docusate Sodium (Colace) 100 mg Q12H PRN PO .CONSTIPATION; Start 11/29/18 at 07:00 Magnesium Hydroxide (Milk Of Mag) 30 ml DAILY PRN PO .CONSTIPATION; Start 11/29/18 at 07:00 Heparin Sodium (Porcine) (Heparin (5000 Units/1ml)) 5,000 unit Q12 SC Last administered on 12/01/18at 08:12; Admin Dose 5,000 UNIT; Start 11/29/18 at 09:00 Lorazepam (Ativan) 0.5 mg Q6H PRN IV ANXIETY; Start 11/29/18 at 07:00 Albuterol/ Ipratropium (Duoneb) 3 ml Q4H RESP THERAPY PRN HHN SHORTNESS OF BREATH; Start 11/29/18 at 07:00 Hydralazine HCl (Apresoline) 10 mg Q6H PRN IV for sys bp > 180; Start 11/29/18 at 07:00 Nitroglycerin (Nitroglycerin (Sl Tab) 0.4 Mg) 1 tab Q5M PRN SL ANGINA Last administered on 11/30/18 10:24; Admin Dose 1 TAB; Start 11/29/18 at 07:00 Amlodipine Besylate (Norvasc) 5 mg BID PO Last administered on 12/01/18 08:01; Admin Dose 5 MG; Start 11/30/18 at 09:00 Azathioprine (Imuran) 100 mg DAILY PO Last administered on 11/30/18 10:02; Admin Dose 100 MG; Start 11/30/18 at 09:00 Cyclobenzaprine HCl (Flexeril) 10 mg TID PO Last administered on 12/01/18 08:00; Admin Dose 10 MG; Start 11/30/18 at 09:00 Nadolol (Corgard) 20 mg BID PO Last administered on 12/01/18 08:00; Admin Dose 20 MG; Start 11/30/18 at 09:00 Tramadol HCl (Ultram) 50 mg Q4 PRN PO PAIN; Start 11/30/18 at 00:00 Calcium/Vitamin D (Oyster Shell/ Vit-D (500/200)) 1 tab DAILY PO Last administered on 12/01/18 08:00; Admin Dose 1 TAB; Start 11/30/18 at 09:00 Sucralfate (Carafate Susp) 1 gm QID PO Last administered on 12/01/18 08:01; Admin Dose 1 GM; Start 11/30/18 at 09:00 Pantoprazole (Protonix Iv) 40 mg BID@06,18 IV Last administered on 12/01/18 05:38; Admin Dose 40 MG; Start 11/30/18 at 06:00 Dextrose/Sodium Chloride 1,000 ml @ 50 mls/hr Q20H IV Last administered on 12/01/18 08:01; Admin Dose 50 MLS/HR; Start 11/30/18 at 00:00 Metoclopramide HCl (Reglan) 10 mg Q6H PRN IV nausae Last administered on 11/30/18 12:09; Admin Dose 10 MG; Start 11/30/18 at 11:00 Morphine Sulfate (morphine) 4 mg Q4H PRN IV .SEVERE PAIN 7-10 Last administered on 12/01/18 05:39; Admin Dose 4 MG; Start 11/30/18 at 11:30 Colchicine (Colchicine) 0.6 mg BID PO Last administered on 12/01/18at 08:00; Admin Dose 0.6 MG; Start 11/30/18 at 12:30 Methylprednisolone Sodium Succinate (Solu-Medrol) 60 mg Q8 IV Last administered on 12/01/18at 05:38; Admin Dose 60 MG; Start 11/30/18 at 22:00 CHERYLE LEONARD Dec 01, 2018 11:11
--- NOTE | 2018-12-01 12:27 | PN ---
Date/Time of Note Date/Time of Note DATE: 12/01/18 TIME: 12:26 Assessment/Plan VTE Prophylaxis Risk score (from Nsg)>0 risk: 2 Pharmacological prophylaxis: other (scds) Lines/Catheters IV Catheter Type (from Nrsg): Peripheral IV Urinary Cath still in place: No Assessment/Plan Hospital Course Summary Assessment and Plan: Assessment: Epigastric pain-with radiation to left upper quadrant and left flank/back - -CT is concerning for pancreatitis, however lipase WNL Left pleural effusion Pericardial effusion, moderate -Echocardiogram - Small to borderline moderate circumferential pericardial effusion without evidence of tamponade. EF 55% Normocytic Anemia Thrombocytosis Recent History Hematemesis EGD 11/15/2018 Extensive ulceration of the distal esophagus, rule out opportunistic infection, biopsies obtained. Grade II/IV esophageal varices. No stigmata of recent bleeding. No therapeutic intervention required Mild gastritis versus portal gastropathy, Otherwise normal EGD Stomach biopsy negative for H. pylori infection, no evidence of intestinal metaplasia, dysplasia, or malignancy Esophageal ulcer biopsy mucosa showing moderate chronic inflammation no squamous mucosa is present. No goblet cells are identified, no H. pylori is identified, no evidence of dysplasia or malignancy SLE/Rheumatoid arthritis/Raynaud's syndrome -On prednisone. History of Splenectomy Depression HTN Hx of EGD/colonoscopy 09/26/18 Colonoscopy 09/26/2018colitis more significant in the area of the rectum moderate size internal hemorrhoidsbiopsy negative for evidence of colitis EGD grade II/IV esophageal varices, severe gastritisbiopsies negative for H. pylori Liver cirrhosis- with hx of EV -Hepatitis serology negative -ASMA,AMA- negative Status post finger amputation secondary to Raynaud's syndrome Leukocytosis currently on steroid therapy Plan: Currently no plan to re-scope given recent EGD- will continue PPI/Carafate Clear liquid diet- If patient continues to improved advance diet to low /low fat diet in am Supportive care Patient seen in collaboration with Subjective: Course reviewed with nursing staff Patient interviewed and examined All labs, imaging and other results reviewed The patient resting in bed appears comfortable. Patient states she feels better today less abdominal pain no complaints of nausea or vomiting Discussed results of labs. Exam PHYSICAL EXAMINATION: GENERAL: Chronically ill appearing young woman, alert & oriented x 3, edema/swelling from chronic steroid use SKIN: No lesions. HEAD: Normocephalic, atraumatic, no tenderness. EYES: Pupils equal reactive to light, no discharge. EARS/NOSE AND THROAT: Ears normal, nose normal. NECK: Supple, no masses, thyroid normal. CHEST: Inspection within normal limits. CARDIOVASCULAR: Heart: Regular rate and rhythm RESPIRATORY: Lungs clear to auscultation. GASTROINTESTINAL AND LIVER: Abdomen: obese, soft, upper abdominal tenderness- improved, non-distended, no hernias, no masses, normoactive bowel sounds. Rectal: Deferred. EXTREMITIES: No cyanosis, clubbing or edema. Result Diagram: 12/01/18 0549 12/01/18 0549 Results 24hrs Laboratory Tests Test 11/30/18 16:51 12/01/18 05:49 Erythrocyte Sedimentation Rate 40 H C-Reactive Protein 8.4 H White Blood Count 13.1 #H Red Blood Count 3.15 L Hemoglobin 8.5 L Hematocrit 27.5 L Mean Corpuscular Volume 87.3 Mean Corpuscular Hemoglobin 27.0 L Mean Corpuscular Hemoglobin Concent 30.9 L Red Cell Distribution Width 17.0 H Platelet Count 759 H Mean Platelet Volume 9.6 Immature Granulocytes % 0.800 H Neutrophils % 90.8 H Lymphocytes % 1.8 L Monocytes % 6.5 Eosinophils % 0.0 Basophils % 0.1 Nucleated Red Blood Cells % 1.7 H Immature Granulocytes # 0.100 H Neutrophils # 11.9 H Lymphocytes # 0.2 L Monocytes # 0.9 Eosinophils # 0.0 Basophils # 0.0 Nucleated Red Blood Cells # 0.2 H Sodium Level 139 Potassium Level 4.1 Chloride Level 106 Carbon Dioxide Level 25 Anion Gap 8 Blood Urea Nitrogen 11 Creatinine 0.57 Est Glomerular Filtrat Rate mL/min > 60 Glucose Level 133 Calcium Level 9.0 Amylase Level 40 Lipase < 10 L Exam/Review of Systems Exam Vitals Vital Signs Date Temp Pulse Resp B/P (MAP) Pulse Ox O2 O2 Flow FiO2 Time Delivery Rate 12/01/18 98.3 60 18 107/64 94 11:41 (78) 11/30/18 Room Air 16:21 Intake and Output 11/30/18 11/30/18 12/01/18 1515:00 23:00 07:00 IntakeIntake Total 650 ml 75 ml BalanceBalance 650 ml 75 ml Results Results 24hrs Laboratory Tests Test 11/30/18 16:51 12/01/18 05:49 Erythrocyte Sedimentation Rate 40 H C-Reactive Protein 8.4 H White Blood Count 13.1 #H Red Blood Count 3.15 L Hemoglobin 8.5 L Hematocrit 27.5 L Mean Corpuscular Volume 87.3 Mean Corpuscular Hemoglobin 27.0 L Mean Corpuscular Hemoglobin Concent 30.9 L Red Cell Distribution Width 17.0 H Platelet Count 759 H Mean Platelet Volume 9.6 Immature Granulocytes % 0.800 H Neutrophils % 90.8 H Lymphocytes % 1.8 L Monocytes % 6.5 Eosinophils % 0.0 Basophils % 0.1 Nucleated Red Blood Cells % 1.7 H Immature Granulocytes # 0.100 H Neutrophils # 11.9 H Lymphocytes # 0.2 L Monocytes # 0.9 Eosinophils # 0.0 Basophils # 0.0 Nucleated Red Blood Cells # 0.2 H Sodium Level 139 Potassium Level 4.1 Chloride Level 106 Carbon Dioxide Level 25 Anion Gap 8 Blood Urea Nitrogen 11 Creatinine 0.57 Est Glomerular Filtrat Rate mL/min > 60 Glucose Level 133 Calcium Level 9.0 Amylase Level 40 Lipase < 10 L Medications Medication Current Medications IV Flush (NS 3 ml) 3 ml PER PROTOCOL IV ; Start 11/29/18 at 07:00 Ondansetron HCl (Zofran Inj) 4 mg Q6H PRN IV NAUSEA/VOMITING Last administered on 12/01/18at 05:38; Admin Dose 4 MG; Start 11/29/18 at 07:00 Acetaminophen (Tylenol Tab) 650 mg Q6H PRN PO .PAIN 1-3 OR TEMP; Start 11/29/18 at 07:00 Acetaminophen/ Hydrocodone Bitart ([place] (5/325)) 1 tab Q6H PRN PO .MOD PAIN 4- 6 Last administered on 11/30/18at 10:04; Admin Dose 1 TAB; Start 11/29/18 at 07:00 Docusate Sodium (Colace) 100 mg Q12H PRN PO .CONSTIPATION; Start 11/29/18 at 07:00 Magnesium Hydroxide (Milk Of Mag) 30 ml DAILY PRN PO .CONSTIPATION; Start 11/29/18 at 07:00 Heparin Sodium (Porcine) (Heparin (5000 Units/1ml)) 5,000 unit Q12 SC Last administered on 12/01/18at 08:12; Admin Dose 5,000 UNIT; Start 11/29/18 at 09:00 Lorazepam (Ativan) 0.5 mg Q6H PRN IV ANXIETY; Start 11/29/18 at 07:00 Albuterol/ Ipratropium (Duoneb) 3 ml Q4H RESP THERAPY PRN HHN SHORTNESS OF BREATH; Start 11/29/18 at 07:00 Hydralazine HCl (Apresoline) 10 mg Q6H PRN IV for sys bp > 180; Start 11/29/18 at 07:00 Nitroglycerin (Nitroglycerin (Sl Tab) 0.4 Mg) 1 tab Q5M PRN SL ANGINA Last administered on 11/30/18 10:24; Admin Dose 1 TAB; Start 11/29/18 at 07:00 Amlodipine Besylate (Norvasc) 5 mg BID PO Last administered on 12/01/18 08:01; Admin Dose 5 MG; Start 11/30/18 at 09:00 Azathioprine (Imuran) 100 mg DAILY PO Last administered on 11/30/18 10:02; Admin Dose 100 MG; Start 11/30/18 at 09:00 Cyclobenzaprine HCl (Flexeril) 10 mg TID PO Last administered on 12/01/18 08:00; Admin Dose 10 MG; Start 11/30/18 at 09:00 Nadolol (Corgard) 20 mg BID PO Last administered on 12/01/18 08:00; Admin Dose 20 MG; Start 11/30/18 at 09:00 Tramadol HCl (Ultram) 50 mg Q4 PRN PO PAIN; Start 11/30/18 at 00:00 Calcium/Vitamin D (Oyster Shell/ Vit-D (500/200)) 1 tab DAILY PO Last administered on 12/01/18 08:00; Admin Dose 1 TAB; Start 11/30/18 at 09:00 Sucralfate (Carafate Susp) 1 gm QID PO Last administered on 12/01/18 08:01; Adm in Dose 1 GM; Start 11/30/18 at 09:00 Pantoprazole (Protonix Iv) 40 mg BID@06,18 IV Last administered on 12/01/18at 05:38; Admin Dose 40 MG; Start 11/30/18 at 06:00 Dextrose/Sodium Chloride 1,000 ml @ 50 mls/hr Q20H IV Last administered on 12/01/18 08:01; Admin Dose 50 MLS/HR; Start 11/30/18 at 00:00 Metoclopramide HCl (Reglan) 10 mg Q6H PRN IV nausae Last administered on 11/30/18 12:09; Admin Dose 10 MG; Start 11/30/18 at 11:00 Morphine Sulfate (morphine) 4 mg Q4H PRN IV .SEVERE PAIN 7-10 Last administered on 12/01/18 05:39; Admin Dose 4 MG; Start 11/30/18 at 11:30 Colchicine (Colchicine) 0.6 mg BID PO Last administered on 12/01/18 08:00; Admin Dose 0.6 MG; Start 11/30/18 at 12:30 Methylprednisolone Sodium Succinate (Solu-Medrol) 60 mg Q8 IV Last administered on 12/01/18 05:38; Admin Dose 60 MG; Start 11/30/18 at 22:00 MONIQUE DE LA ROSA Dec 01, 2018 12:27
--- NOTE | 2018-12-01 14:31 | CONS ---
DATE OF ADMISSION: 11/29/2018 DATE OF CONSULTATION: TYPE OF CONSULTATION: Rheumatology. CONSULTING PHYSICIAN: Cheryle Leonard MD REASON FOR CONSULTATION: The patient is with known lupus. HISTORY OF PRESENT ILLNESS: The patient is a 33-year-old female who presented with abdominal pain an d was admitted to the emergency room on 11/29/2018. The patient has a history of lupus, rheumatoid a rthritis, Raynaud's, gastric ulcer, liver cirrhosis with esophageal varices. She is on Imuran and pr ednisone for her lupus and is being followed by Dr. Abe Ramirez. She was admitted with severe abdomi nal pain and in the ED, abdominal CT was done that was concerning for pancreatitis although lipase wa s within normal limits. MRCP was done that showed postsurgical changes from prior splenectomy, but n o biliary ductal dilatation or gross choledocholithiasis, but there is evidence of a mild pancreatiti s. The patient also had some pleuritic chest pain that she has been having on and off several months that has acutely worsened and chest CT was done that showed an increased left pleural effusion dain red to the CT that was on 11/29/2018 that was the abdominal CT. Chest CT was done on 11/30/2018 and there was also some pericardial effusion, moderate. The patient had a stat echo at bedside with card iology involved that showed again moderate pericardial effusion without evidence of tamponade at that time and no indication for pericardiocentesis. The patient was started on colchicine 0.6 mg p.o. b. i.d. and Solu-Medrol. She was given 1 dose of 125 mg IV and continued at 60 mg IV q.8 to treat her l upus and pericardial, pleural effusions. The patient states that she was diagnosed with lupus at age 20 at [facility]. Initially, it was rheumatoid arthritis and then they told her she also had lupus. Her initial presentation included abdominal pain at the time, but she was not sure e xactly what she was diagnosed with. For her lupus, she has been on light doses of prednisone in the past. 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 Ramirez, thought Plaquenil was causing problems with her abdomen, so th is was switched to Imuran in the last few weeks. The patient also has significant Raynaud's syndrome in all her fingers and she did have right 2nd fingertip amputation about 3 years ago secondary to an infection from an ulcer due to the Raynaud's. She denies having ever had any renal involvement or s eizures or psychosis due to her lupus. She denies having any blood clots. Currently, no rash. Curr ently, no acute joint pain, although she has had arthritis in the past. Of note, she also had an MRC P of the abdomen that was severely limited by artifact. PAST MEDICAL HISTORY: As stated above, significant for lupus, possible rheumatoid arthritis, althoug h her arthritic changes are likely secondary to lupus; gastric ulcers, liver cirrhosis with esophagea l varices, unknown etiology for this. She was told that it was secondary to her lupus and Raynaud's with finger amputation secondary to that. PAST SURGICAL HISTORY: Includes splenectomy, finger amputation. FAMILY HISTORY: She has had grandmother who has rheumatoid arthritis, but no one with lupus. SOCIAL HISTORY: No alcohol, no drugs, no illicit drugs, never smoked. MEDICATIONS: Currently as stated above: 1. She was on prednisone 5 mg as an outpatient. 2. Now, she is on Solu-Medrol 60 mg IV t.i.d. 3. Amlodipine 5 mg p.o. b.i.d. 4. Colchicine 0.6 p.o. b.i.d. 5. Protonix 40 mg. 6. Imuran 100 mg p.o. daily. 7. Cyclobenzaprine p.o. t.i.d. PHYSICAL EXAMINATION: GENERAL: Alert and oriented in no acute distress, answering questions appropriately, pleasant female . HEENT: NCAT. Extraocular movements are intact. Oropharynx is clear. NECK: Supple. CARDIOVASCULAR: S1, S2. Regular rate and rhythm. No murmurs. No pain on chest wall palpation. LUNGS: Clear to auscultation bilaterally. No wheezing or rhonchi. ABDOMEN: Soft, nontender, nondistended. Bowel sounds are present. EXTREMITIES: Moving all extremities. SKIN: No rashes. MUSCULOSKELETAL: She does have reducible deformities in her fingers throughout that are consistent w ith lupus and a right 2nd finger tip amputated. She has a bluish hue on the fingertips and the right 3rd digit tip also has a small ulceration present. LABORATORY VALUES: Include white count 13.1, hemoglobin 8.5, hematocrit 27.5, platelet count 759, MC V is 87.3, RDW is 17. ESR is 40. Sodium 139, potassium 4.1, chloride 106, bicarbonate 25, BUN 11, c reatinine 0.57, glucose 133, calcium 9. C-reactive protein is 8.4. Triglycerides 76. Lipase is 10 and 10 again on repeat, amylase is 40. AST 18, ALT 17, total bilirubin 0.3, total protein 7.5, album in 3.3. Globulin 4.2. TSH 1.450. Hemoglobin A1c is 5.4. IMAGING: As per HPI. MICROBIOLOGY: Urinalysis shows negative protein, no glucose, no nitrites, no bilirubin. IMPRESSION AND PLAN: This is a 33-year-old female with known lupus and liver cirrhosis with esophage al varices, gastric ulcers, now presenting with pancreatitis, pericarditis and pleural effusion, all likely secondary to a lupus flare. 1. Lupus flare. I agree with high-dose steroids. I just changed the steroids from t.i.d. to b.i.d. 60 mg IV Solu-Medrol as she is feeling slightly better. She does not have any joint pain. 2. 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 I appreciate cardiology input. Continue to monitor the patient . Probably repeat an echo per cardiology. Continue the colchicine 0.6 b.i.d. Steroids and colchici ne together should hopefully help treat and decrease the pericardial and pleural effusion. 3. Pancreatitis. The patient seems to be improving and has been okayed for a liquid diet once we ar e sure she is not going to have any more procedures done. 4. Pleural effusion. Pulmonary has been consulted to assess whether the patient needs thoracentesis or not. We will follow up with this. 5. Cirrhosis with esophageal varices. Unclear the exact etiology of this. The patient never had a liver biopsy and was never seen by spool sander. Currently, this is stable. LFTs are within normal limits. We will just continue to follow. 6. Raynaud's syndrome, status post finger amputation. The patient just needs to observe Raynaud's p recautions, keeping her fingers warm. Labs have been ordered including SHADI, double stranded DNA, rhe umatoid factor, CCP. We will follow up on these labs. Thank you for having me participate in this patient's care. I will continue to follow with you. Dictated By: LILY ISSA/BERTO Conf#: [id number] DID#: [id number] CC: SAHRA GOYAL MD; IFTIKHAR VEE; CHERYLE LEONARD MD;*EndCC*
--- NOTE | 2018-12-01 14:51 | CONS ---
Assessment/Plan Assessment/Plan Assessment/Plan (Daily) Assessment and recommendations; 1. Patient admitted with fever as well as abdominal pain radiating to left chest with partially loculated left pleural effusion with infiltrative changes in left lower lobe. These findings are more in line with community acquired pneumonia with possibly a complicated left parapneumonic effusion rather than simple effusion from SLE. 2. History of splenectomy. 3. Chronic immunosuppression. Discontinue Solu-Medrol. Start prednisone 10 mg daily. Start cefepime and Zyvox intravenously. Obtain ultrasound-guided left thoracentesis with pleural fluid to be sent for Gram stain, protein, culture as well as SHADI titer. Consultation Date/Type/Reason Admit Date/Time Nov 29, 2018 at 06:15 Date of Consultation: Dec 01, 2018 Type of Consult Pulmonary Patient is a very pleasant 39-year-old lady who came into the hospital with a few days history of coughing high fever and mild shortness of breath. Patient also been complaining of abdominal pain without any nausea vomiting. Upon evaluation a chest x-ray was done which showed left lower lobe infiltrate, patient subsequently had a CT of the chest done which is showing a partially loculated left pleural effusion with infiltrative changes in the left lower lobe. Patient feeling somewhat better since admission and reporting significant reduction in abdominal pain. According to the patient the fever was as high as 101 F few days ago. Patient denies any prior history of pneumonia or any pleural effusion. Past medical history; 1. SLE. 2. Chronic immunosuppression with prednisone and Imuran. 3. No history of any pleural effusion or any history of serositis. 4. 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 5. History of splenectomy with laparotomy. Medications; reviewed. Allergies; as outlined above. Social history; most of any alcohol drug or tobacco abuse. Family history; noncontributory. Occupational history; patient is on disability. Review of systems; denies any headache, seizures, visual changes. Any sore throat, dysphagia, Complains of mild left lateral chest pain. Complains of cough with fever. Denies any sputum production hemoptysis. Abdominal pain is markedly improved. Denies any nausea vomiting. Any diarrhea, constipation, melena, hematochezia. Any urinary symptoms. Any skin changes or any new arthritis symptoms. Denies any weight loss. General exam; young female awake alert currently no distress. Date/Time of Note DATE: 12/01/18 TIME: 14:45 Past Medical History Home Meds Active Scripts Cyclobenzaprine Hcl* (Cyclobenzaprine Hcl*) 10 Mg Tablet, 10 MG PO TID, #15 TAB Prov:MICKY CHAN MD 11/26/18 Tramadol HCl (Tramadol HCl) 50 Mg Tablet, 50 MG PO Q4 PRN for PAIN, #20 TAB Prov:MICKY CHAN MD 11/26/18 Ondansetron Hcl* (Zofran*) 8 Mg Tablet, 8 MG PO Q6H PRN for NAUSEA AND OR VOMITING, #20 TAB Prov:JENNY RAWLS MD 11/20/18 Levofloxacin* (Levaquin*) 750 Mg Tablet, 750 MG PO DAILY for 7 Days, TAB Prov:JENNY RAWLS MD 11/20/18 Sucralfate* (Carafate*) 1 Gm/10 Ml Susp, 1 GM PO QID for 30 Days, #1 EA 2 Refills Prov:LIUDMILA DUMONT MD 11/17/18 Metoclopramide Hcl* (Metoclopramide Hcl*) 10 Mg Tablet, 10 MG PO QID for 10 Days, #40 TAB Prov:LIUDMILA DUMONT MD 11/17/18 Acetaminophen* (Tylenol*) 325 Mg Tablet, 650 MG PO Q6H PRN for .PAIN 1-3 OR TEMP for 1 Day, TAB Prov:LIUDMILA DUMONT MD 11/17/18 Nadolol (Corgard) 40 Mg Tablet, 20 MG PO BID for 15 Days, #30 TAB Prov:LIUDMILA DUMONT MD 11/17/18 Pantoprazole* (Pantoprazole*) 40 Mg Tablet.dr, 40 MG PO BID@06,18 for 30 Days, #60 TAB 1 Refill Prov:LIUDMILA DUMONT MD 11/17/18 Reported Medications Amlodipine Besylate* (Amlodipine Besylate*) 10 Mg Tablet, 5 MG PO BID, #30 TAB 11/29/18 Calcium Carbonate/Vitamin D3 (Calcium 500 mg Chewable Tablet) 1 Each Tab.chew, 1 EACH PO DAILY, TAB.CHEW 11/14/18 Prednisone* (Prednisone*) 5 Mg Tab, 5 MG PO DAILY, TAB 11/14/18 Azathioprine* (Imuran*) 50 Mg Tab, 100 MG PO DAILY, TAB 11/14/18 Ergocalciferol (Vitamin D2) (VITAMIN D2) 50,000 Unit Capsule, 54350 UNIT PO QMONDAY 09/22/18 Medications Current Medications IV Flush (NS 3 ml) 3 ml PER PROTOCOL IV ; Start 11/29/18 at 07:00 Ondansetron HCl (Zofran Inj) 4 mg Q6H PRN IV NAUSEA/VOMITING Last administered on 12/01/18at 05:38; Admin Dose 4 MG; Start 11/29/18 at 07:00 Acetaminophen (Tylenol Tab) 650 mg Q6H PRN PO .PAIN 1-3 OR TEMP; Start 11/29/18 at 07:00 Acetaminophen/ Hydrocodone Bitart ([place] (5/325)) 1 tab Q6H PRN PO .MOD PAIN 4- 6 Last administered on 11/30/18at 10:04; Admin Dose 1 TAB; Start 11/29/18 at 07:00 Docusate Sodium (Colace) 100 mg Q12H PRN PO .CONSTIPATION; Start 11/29/18 at 07:00 Magnesium Hydroxide (Milk Of Mag) 30 ml DAILY PRN PO .CONSTIPATION; Start 11/29/18 at 07:00 Heparin Sodium (Porcine) (Heparin (5000 Units/1ml)) 5,000 unit Q12 SC Last administered on 12/01/18at 08:12; Admin Dose 5,000 UNIT; Start 11/29/18 at 09:00 Lorazepam (Ativan) 0.5 mg Q6H PRN IV ANXIETY; Start 11/29/18 at 07:00 Albuterol/ Ipratropium (Duoneb) 3 ml Q4H RESP THERAPY PRN HHN SHORTNESS OF BREATH; Start 11/29/18 at 07:00 Hydralazine HCl (Apresoline) 10 mg Q6H PRN IV for sys bp > 180; Start 11/29/18 at 07:00 Nitroglycerin (Nitroglycerin (Sl Tab) 0.4 Mg) 1 tab Q5M PRN SL ANGINA Last administered on 11/30/18at 10:24; Admin Dose 1 TAB; Start 11/29/18 at 07:00 Amlodipine Besylate (Norvasc) 5 mg BID PO Last administered on 12/01/18 08:01; Admin Dose 5 MG; Start 11/30/18 at 09:00 Azathioprine (Imuran) 100 mg DAILY PO Last administered on 11/30/18 10:02; Admin Dose 100 MG; Start 11/30/18 at 09:00 Cyclobenzaprine HCl (Flexeril) 10 mg TID PO Last administered on 12/01/18 13:20; Admin Dose 10 MG; Start 11/30/18 at 09:00 Nadolol (Corgard) 20 mg BID PO Last administered on 12/01/18 08:00; Admin Dose 20 MG; Start 11/30/18 at 09:00 Tramadol HCl (Ultram) 50 mg Q4 PRN PO PAIN; Start 11/30/18 at 00:00 Calcium/Vitamin D (Oyster Shell/ Vit-D (500/200)) 1 tab DAILY PO Last administered on 12/01/18 08:00; Admin Dose 1 TAB; Start 11/30/18 at 09:00 Sucralfate (Carafate Susp) 1 gm QID PO Last administered on 12/01/18 13:20; Admin Dose 1 GM; Start 11/30/18 at 09:00 Pantoprazole (Protonix Iv) 40 mg BID@06,18 IV Last administered on 12/01/18 05:38; Admin Dose 40 MG; Start 11/30/18 at 06:00 Dextrose/Sodium Chloride 1,000 ml @ 50 mls/hr Q20H IV Last administered on 12/01/18 08:01; Admin Dose 50 MLS/HR; Start 11/30/18 at 00:00 Metoclopramide HCl (Reglan) 10 mg Q6H PRN IV nausae Last administered on 9at 12:09; Admin Dose 10 MG; Start 11/30/18 at 11:00 Morphine Sulfate (morphine) 4 mg Q4H PRN IV .SEVERE PAIN 7-10 Last administered on 12/01/18 13:39; Admin Dose 4 MG; Start 11/30/18 at 11:30 Colchicine (Colchicine) 0.6 mg BID PO Last administered on 12/01/18 08:00; Admin Dose 0.6 MG; Start 11/30/18 at 12:30 Cefepime HCl 50 ml @ 100 mls/hr Q12 IVPB ; Start 12/01/18 at 15:00; Status UNV Linezolid 300 ml @ 300 mls/hr Q12 IVPB ; Start 12/01/18 at 21:00; Status UNV Prednisone (Prednisone) 10 mg DAILY PO ; Start 12/02/18 at 09:00; Status UNV Allergies: Coded Allergies: avocado (Verified Allergy, Unknown, bumps inside her mouth, 11/16/18) vancomycin (Verified Allergy, Unknown, 11/14/18) Past Surgical History Past Surgical Hx: other Social History Alcohol Use: none Smoking Status: Never smoker Exam/Review of Systems Exam Vitals Vital Signs Date Temp Pulse Resp B/P (MAP) Pulse Ox O2 O2 Flow FiO2 Time Delivery Rate 12/01/18 98.3 60 18 107/64 94 11:41 (78) 11/30/18 Room Air 16:21 Intake and Output 11/30/18 11/30/18 12/01/18 1515:00 23:00 07:00 IntakeIntake Total 650 ml 75 ml BalanceBalance 650 ml 75 ml Exam H EENT exam; supple neck, no JVD. No lymphadenopathy. Midline trachea. No thyromegaly. Patient has good dentition. No neck masses. Chest exam; diminished breath sounds left lower lobe. Rest of the lung gutierrez are clear. S1-S2 audible, no murmurs. Regular rhythm. Abdomen exam; soft, there is very minimal epigastric tenderness. Bowel sounds audible. Extremity exam; no peripheral edema. Patient does have contractures involving the fingers. There is a well-healed terminal pharyngeal amputation involving the right middle finger. RADIO ANNOUNCER exam; no focal deficit. Results Result Diagram: 12/01/18 0549 12/01/18 0549 Results 24hrs Laboratory Tests Test 11/30/18 16:51 12/01/18 05:49 Erythrocyte Sedimentation Rate 40 H C-Reactive Protein 8.4 H White Blood Count 13.1 #H Red Blood Count 3.15 L Hemoglobin 8.5 L Hematocrit 27.5 L Mean Corpuscular Volume 87.3 Mean Corpuscular Hemoglobin 27.0 L Mean Corpuscular Hemoglobin Concent 30.9 L Red Cell Distribution Width 17.0 H Platelet Count 759 H Mean Platelet Volume 9.6 Immature Granulocytes % 0.800 H Neutrophils % 90.8 H Lymphocytes % 1.8 L Monocytes % 6.5 Eosinophils % 0.0 Basophils % 0.1 Nucleated Red Blood Cells % 1.7 H Immature Granulocytes # 0.100 H Neutrophils # 11.9 H Lymphocytes # 0.2 L Monocytes # 0.9 Eosinophils # 0.0 Basophils # 0.0 Nucleated Red Blood Cells # 0.2 H Sodium Level 139 Potassium Level 4.1 Chloride Level 106 Carbon Dioxide Level 25 Anion Gap 8 Blood Urea Nitrogen 11 Creatinine 0.57 Est Glomerular Filtrat Rate mL/min > 60 Glucose Level 133 Calcium Level 9.0 Amylase Level 40 Lipase < 10 L Medications Medication Current Medications IV Flush (NS 3 ml) 3 ml PER PROTOCOL IV ; Start 11/29/18 at 07:00 Ondansetron HCl (Zofran Inj) 4 mg Q6H PRN IV NAUSEA/VOMITING Last administered on 12/01/18at 05:38; Admin Dose 4 MG; Start 11/29/18 at 07:00 Acetaminophen (Tylenol Tab) 650 mg Q6H PRN PO .PAIN 1-3 OR TEMP; Start 11/29/18 at 07:00 Acetaminophen/ Hydrocodone Bitart ([place] (5/325)) 1 tab Q6H PRN PO .MOD PAIN 4- 6 Last administered on 11/30/18at 10:04; Admin Dose 1 TAB; Start 11/29/18 at 07:00 Docusate Sodium (Colace) 100 mg Q12H PRN PO .CONSTIPATION; Start 11/29/18 at 07:00 Magnesium Hydroxide (Milk Of Mag) 30 ml DAILY PRN PO .CONSTIPATION; Start 11/29/18 at 07:00 Heparin Sodium (Porcine) (Heparin (5000 Units/1ml)) 5,000 unit Q12 SC Last administered on 12/01/18at 08:12; Admin Dose 5,000 UNIT; Start 11/29/18 at 09:00 Lorazepam (Ativan) 0.5 mg Q6H PRN IV ANXIETY; Start 11/29/18 at 07:00 Albuterol/ Ipratropium (Duoneb) 3 ml Q4H RESP THERAPY PRN HHN SHORTNESS OF BREATH; Start 11/29/18 at 07:00 Hydralazine HCl (Apresoline) 10 mg Q6H PRN IV for sys bp > 180; Start 11/29/18 at 07:00 Nitroglycerin (Nitroglycerin (Sl Tab) 0.4 Mg) 1 tab Q5M PRN SL ANGINA Last adm inistered on 11/30/18 10:24; Admin Dose 1 TAB; Start 11/29/18 at 07:00 Amlodipine Besylate (Norvasc) 5 mg BID PO Last administered on 12/01/18 08:01; Admin Dose 5 MG; Start 11/30/18 at 09:00 Azathioprine (Imuran) 100 mg DAILY PO Last administered on 11/30/18 10:02; Admin Dose 100 MG; Start 11/30/18 at 09:00 Cyclobenzaprine HCl (Flexeril) 10 mg TID PO Last administered on 12/01/18 13:20; Admin Dose 10 MG; Start 11/30/18 at 09:00 Nadolol (Corgard) 20 mg BID PO Last administered on 12/01/18 08:00; Admin Dose 20 MG; Start 11/30/18 at 09:00 Tramadol HCl (Ultram) 50 mg Q4 PRN PO PAIN; Start 11/30/18 at 00:00 Calcium/Vitamin D (Oyster Shell/ Vit-D (500/200)) 1 tab DAILY PO Last administered on 12/01/18 08:00; Admin Dose 1 TAB; Start 11/30/18 at 09:00 Sucralfate (Carafate Susp) 1 gm QID PO Last administered on 12/01/18 13:20; Admin Dose 1 GM; Start 11/30/18 at 09:00 Pantoprazole (Protonix Iv) 40 mg BID@06,18 IV Last administered on 12/01/18 05:38; Admin Dose 40 MG; Start 11/30/18 at 06:00 Dextrose/Sodium Chloride 1,000 ml @ 50 mls/hr Q20H IV Last administered on 12/01/18 08:01; Admin Dose 50 MLS/HR; Start 11/30/18 at 00:00 Metoclopramide HCl (Reglan) 10 mg Q6H PRN IV nausae Last administered on 11/30/18 12:09; Admin Dose 10 MG; Start 11/30/18 at 11:00 Morphine Sulfate (morphine) 4 mg Q4H PRN IV .SEVERE PAIN 7-10 Last administered on 12/01/18at 13:39; Admin Dose 4 MG; Start 11/30/18 at 11:30 Colchicine (Colchicine) 0.6 mg BID PO Last administered on 12/01/18at 08:00; Admin Dose 0.6 MG; Start 11/30/18 at 12:30 Cefepime HCl 50 ml @ 100 mls/hr Q12 IVPB ; Start 12/01/18 at 15:00; Status UNV Linezolid 300 ml @ 300 mls/hr Q12 IVPB ; Start 12/01/18 at 21:00; Status UNV Prednisone (Prednisone) 10 mg DAILY PO ; Start 12/02/18 at 09:00; Status UNV JUSTICE CARBALLO Dec 01, 2018 14:51
[2018-12-01] MEDS: CEFEPIME 1GM/50 ML (PMX) 50 ML IVPB SCH ×2 (16:04→20:43)
--- NOTE | 2018-12-01 16:56 | CONS ---
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 No tamponade physiology. Pleuritic chest pain. 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 No NSAIDs with ulcers -steroids per rheum/pulm -d/c IVF -repeat limited echo in 2-3 days Consultation Date/Type/Reason Admit Date/Time Nov 29, 2018 at 06:15 Initial Consult Date 12/01/18 Type of Consult Cardiology Requesting Provider: CHERYLE LEONARD Date/Time of Note DATE: 12/01/18 TIME: 16:52 24 HR Interval Summary Free Text/Dictation Seen by rheum with recs to continue IV steroids for lupus flare. Seen by pulm and IV steroids switched to PO and antibiotics started for PNA. Both abdominal pain and chest pain improving but present Exam/Review of Systems Vital Signs Vitals Vital Signs Date Temp Pulse Resp B/P (MAP) Pulse Ox O2 O2 Flow FiO2 Time Delivery Rate 12/01/18 98.9 88 18 136/79 99 16:35 (98) 11/30/18 Room Air 16:21 Intake and Output 11/30/18 11/30/18 12/01/18 1515:00 23:00 07:00 IntakeIntake Total 650 ml 75 ml BalanceBalance 650 ml 75 ml Exam Constitutional: alert, oriented Psych: no complaints, nl mood/affect Head: normocephalic, atraumatic Neck: jvd (9-10cm) Respiratory: crackles/rales (at bases); No clear to auscultation Cardiovascular: regular rate and rhythm; No edema, No systolic murmur Gastrointestinal: soft; No non-tender (mild epigastric), No distended Musculoskeletal: nl extremities to inspection Labs Result Diagram: 12/01/18 0549 12/01/18 0549 Results 24hrs Laboratory Tests Test 12/01/18 05:49 White Blood Count 13.1 #H Red Blood Count 3.15 L Hemoglobin 8.5 L Hematocrit 27.5 L Mean Corpuscular Volume 87.3 Mean Corpuscular Hemoglobin 27.0 L Mean Corpuscular Hemoglobin Concent 30.9 L Red Cell Distribution Width 17.0 H Platelet Count 759 H Mean Platelet Volume 9.6 Immature Granulocytes % 0.800 H Neutrophils % 90.8 H Lymphocytes % 1.8 L Monocytes % 6.5 Eosinophils % 0.0 Basophils % 0.1 Nucleated Red Blood Cells % 1.7 H Immature Granulocytes # 0.100 H Neutrophils # 11.9 H Lymphocytes # 0.2 L Monocytes # 0.9 Eosinophils # 0.0 Basophils # 0.0 Nucleated Red Blood Cells # 0.2 H Sodium Level 139 Potassium Level 4.1 Chloride Level 106 Carbon Dioxide Level 25 Anion Gap 8 Blood Urea Nitrogen 11 Creatinine 0.57 Est Glomerular Filtrat Rate mL/min > 60 Glucose Level 133 Calcium Level 9.0 Amylase Level 40 Lipase < 10 L Medications Medications Current Medications IV Flush (NS 3 ml) 3 ml PER PROTOCOL IV ; Start 11/29/18 at 07:00 Ondansetron HCl (Zofran Inj) 4 mg Q6H PRN IV NAUSEA/VOMITING Last administered on 12/01/18at 05:38; Admin Dose 4 MG; Start 11/29/18 at 07:00 Acetaminophen (Tylenol Tab) 650 mg Q6H PRN PO .PAIN 1-3 OR TEMP; Start 11/29/18 at 07:00 Acetaminophen/ Hydrocodone Bitart ([place] (5/325)) 1 tab Q6H PRN PO .MOD PAIN 4- 6 Last administered on 11/30/18at 10:04; Admin Dose 1 TAB; Start 11/29/18 at 07:00 Docusate Sodium (Colace) 100 mg Q12H PRN PO .CONSTIPATION; Start 11/29/18 at 07:00 Magnesium Hydroxide (Milk Of Mag) 30 ml DAILY PRN PO .CONSTIPATION; Start 11/29/18 at 07:00 Heparin Sodium (Porcine) (Heparin (5000 Units/1ml)) 5,000 unit Q12 SC Last administered on 12/01/18at 08:12; Admin Dose 5,000 UNIT; Start 11/29/18 at 09:00 Lorazepam (Ativan) 0.5 mg Q6H PRN IV ANXIETY; Start 11/29/18 at 07:00 Albuterol/ Ipratropium (Duoneb) 3 ml Q4H RESP THERAPY PRN HHN SHORTNESS OF BREATH; Start 11/29/18 at 07:00 Hydralazine HCl (Apresoline) 10 mg Q6H PRN IV for sys bp > 180; Start 11/29/18 at 07:00 Nitroglycerin (Nitroglycerin (Sl Tab) 0.4 Mg) 1 tab Q5M PRN SL ANGINA Last administered on 11/30/18 10:24; Admin Dose 1 TAB; Start 11/29/18 at 07:00 Amlodipine Besylate (Norvasc) 5 mg BID PO Last administered on 12/01/18 08:01; Admin Dose 5 MG; Start 11/30/18 at 09:00 Azathioprine (Imuran) 100 mg DAILY PO Last administered on 11/30/18 10:02; Admin Dose 100 MG; Start 11/30/18 at 09:00 Cyclobenzaprine HCl (Flexeril) 10 mg TID PO Last administered on 12/01/18 13:20; Admin Dose 10 MG; Start 11/30/18 at 09:00 Nadolol (Corgard) 20 mg BID PO Last administered on 12/01/18 08:00; Admin Dose 20 MG; Start 11/30/18 at 09:00 Tramadol HCl (Ultram) 50 mg Q4 PRN PO PAIN; Start 11/30/18 at 00:00 Calcium/Vitamin D (Oyster Shell/ Vit-D (500/200)) 1 tab DAILY PO Last administered on 12/01/18 08:00; Admin Dose 1 TAB; Start 11/30/18 at 09:00 Sucralfate (Carafate Susp) 1 gm QID PO Last administered on 12/01/18 16:04; Admin Dose 1 GM; Start 11/30/18 at 09:00 Pantoprazole (Protonix Iv) 40 mg BID@06,18 IV Last administered on 12/01/18 05:38; Admin Dose 40 MG; Start 11/30/18 at 06:00 Dextrose/Sodium Chloride 1,000 ml @ 50 mls/hr Q20H IV Last administered on 12/01/18 08:01; Admin Dose 50 MLS/HR; Start 11/30/18 at 00:00 Metoclopramide HCl (Reglan) 10 mg Q6H PRN IV nausae Last administered on 9at 12:09; Admin Dose 10 MG; Start 11/30/18 at 11:00 Morphine Sulfate (morphine) 4 mg Q4H PRN IV .SEVERE PAIN 7-10 Last administered on 12/01/18at 13:39; Admin Dose 4 MG; Start 11/30/18 at 11:30 Colchicine (Colchicine) 0.6 mg BID PO Last administered on 12/01/18at 08:00; Admin Dose 0.6 MG; Start 11/30/18 at 12:30 Cefepime HCl 50 ml @ 100 mls/hr Q12 IVPB Last administered on 12/01/18at 16:04; Admin Dose 100 MLS/HR; Start 12/01/18 at 15:00 Linezolid 300 ml @ 300 mls/hr Q12 IVPB ; Start 12/01/18 at 21:00 Prednisone (Prednisone) 10 mg DAILY PO ; Start 12/02/18 at 09:00 MEET GAYLE Dec 01, 2018 16:56
[2018-12-01] MEDS ORDERED: METHYLPREDNISOLONE 40 MG INJ IV SCH (21:00)
[2018-12-01] MEDS: HYDROCODONE/APAP (5/325) TAB PO PRN (22:27)
[2018-12-01] MEDS: LINEZOLID 600 MG/300 ML (PMX) 300 ML IVPB SCH (22:42)
[2018-12-02] VITALS (9 sets, daily range): BP systolic 102–128; BP diastolic 53–77; PULSE 54–99; RESP 18–22
[2018-12-02] MEDS: traMADol 50 MG TAB PO PRN ×2 (00:28→08:56)
[2018-12-02] MEDS: PANTOPRAZOLE 40 MG INJ IV SCH ×2 (07:06→17:55)
[2018-12-02] MEDS: CALCIUM/VITAMIN D (500/200) TAB PO SCH (08:25)
[2018-12-02] MEDS: COLCHICINE 0.6 MG TAB PO SCH ×2 (08:26→21:35)
[2018-12-02] MEDS: METHYLPREDNISOLONE 40 MG INJ IV SCH ×2 (08:26→21:41)
[2018-12-02] MEDS: SUCRALFATE (100 MG/ML) 10ML CUP PO SCH ×4 (08:26→21:41)
[2018-12-02] MEDS: CYCLOBENZAPRINE 10 MG TAB PO SCH ×3 (08:28→21:35)
[2018-12-02] MEDS: AMLODIPINE 10 MG TAB PO SCH ×2 (08:28→21:40)
[2018-12-02] MEDS: NADOLOL 40 MG TAB PO SCH ×2 (08:28→21:44)
[2018-12-02] MEDS: AZATHIOPRINE 50 MG TAB PO SCH (08:28)
[2018-12-02] MEDS: CEFEPIME 1GM/50 ML (PMX) 50 ML IVPB SCH ×2 (08:29→21:43)
[2018-12-02] MEDS: ONDANSETRON 4 MG INJ IV PRN ×2 (08:56→18:18)
[2018-12-02] MEDS ORDERED: predniSONE 10 MG TAB PO SCH (09:00)
[2018-12-02] MEDS: HEPARIN 5,000 UNIT/1 ML VIAL SC SCH ×2 (09:21→23:04)
[2018-12-02] MEDS: LINEZOLID 600 MG/300 ML (PMX) 300 ML IVPB SCH ×2 (10:04→21:43)
--- NOTE | 2018-12-02 10:51 | CONS ---
Assessment/Plan Assessment/Plan Assessment/Plan (Daily) Ultrasound chest was done which is showing a small complex effusion on the left side. Not safe for thoracentesis. Assessment recommendations; 1. Patient with history of SLE admitted for left lower lobe pneumonia with complicated small left parapneumonic effusion. Currently on appropriate antimi crobial regimen with interval clinical improvement. 2. Clinical findings are not consistent with lupus associated pleural effusion. 3. Chronic immunosuppression with history of splenectomy. 4. Gastritis, recently diagnosed by EGD. Continue with supportive care. Obtain follow-up chest x-ray in 48 hours. Consultation Date/Type/Reason Admit Date/Time Nov 29, 2018 at 06:15 Initial Consult Date 12/01/18 Type of Consult Pulmonary Patient is a very pleasant 39-year-old lady who came into the hospital with a few days history of coughing high fever and mild shortness of breath. Patient also been complaining of abdominal pain without any nausea vomiting. Upon evaluation a chest x-ray was done which showed left lower lobe infiltrate, patient subsequently had a CT of the chest done which is showing a partially loculated left pleural effusion with infiltrative changes in the left lower lobe. Patient feeling somewhat better since admission and reporting significant reduction in abdominal pain. According to the patient the fever was as high as 101 F few days ago. Patient denies any prior history of pneumonia or any pleural effusion. Past medical history; 1. SLE. 2. Chronic immunosuppression with prednisone and Imuran. 3. No history of any pleural effusion or any history of serositis. 4. 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 5. History of splenectomy with laparotomy. Medications; reviewed. Allergies; as outlined above. Social history; most of any alcohol drug or tobacco abuse. Family history; noncontributory. Occupational history; patient is on disability. Review of systems; denies any headache, seizures, visual changes. Any sore throat, dysphagia, Complains of mild left lateral chest pain. Complains of cough with fever. Denies any sputum production hemoptysis. Abdominal pain is markedly improved. Denies any nausea vomiting. Any diarrhea, constipation, melena, hematochezia. Any urinary symptoms. Any skin changes or any new arthritis symptoms. Denies any weight loss. General exam; young female awake alert currently no distress. Requesting Provider: CHERYLE LEONARD Date/Time of Note DATE: 12/02/18 TIME: 10:44 24 HR Interval Summary Free Text/Dictation Patient's condition is improving. Denies any further abdominal pain, also denies any further chest pain. Denies any shortness of breath, coughing. General exam; young lady, awake alert, currently no distress. Laying comfortably in bed. Exam/Review of Systems Exam Vitals Vital Signs Date Temp Pulse Resp B/P (MAP) Pulse Ox O2 O2 Flow FiO2 Time Delivery Rate 12/02/18 97.5 58 22 107/60 96 Room Air 07:14 (76) Intake and Output 12/01/18 12/01/18 12/02/18 1515:00 23:00 07:00 IntakeIntake Total 50 ml 300 ml BalanceBalance 50 ml 300 ml Exam H EENT exam; supple neck, no JVD. No lymphadenopathy. Midline trachea. No thyromegaly. Patient has fair dentition. No neck masses. Chest exam; diminished breath sounds left lower lobe. Rest of the lung gutierrez are clear. S1-S2 audible, no murmurs. Regular rhythm. Abdomen exam; soft, nontender. No organomegaly. Bowel sounds audible. There is a well-healed laparotomy scar. Extremity exam; peripheral edema clubbing. [employer] exam; no focal deficit. Results Result Diagram: 12/02/1852212/02/18 0523 Results 24hrs Laboratory Tests Test 12/02/18 05:23 White Blood Count 14.2 H Red Blood Count 3.11 L Hemoglobin 8.2 L Hematocrit 26.8 L Mean Corpuscular Volume 86.2 Mean Corpuscular Hemoglobin 26.4 L Mean Corpuscular Hemoglobin Concent 30.6 L Red Cell Distribution Width 17.1 H Platelet Count 742 H Mean Platelet Volume 9.7 Immature Granulocytes % 1.100 H Neutrophils % 87.5 H Lymphocytes % 1.3 L Monocytes % 10.0 Eosinophils % 0.0 Basophils % 0.1 Nucleated Red Blood Cells % 3.0 H Immature Granulocytes # 0.150 H Neutrophils # 12.5 H Lymphocytes # 0.2 L Monocytes # 1.4 H Eosinophils # 0.0 Basophils # 0.0 Nucleated Red Blood Cells # 0.4 H Sodium Level 141 Potassium Level 4.5 Chloride Level 108 Carbon Dioxide Level 24 Anion Gap 9 Blood Urea Nitrogen 19 Creatinine 0.49 Est Glomerular Filtrat Rate mL/min > 60 Glucose Level 127 Calcium Level 8.9 Medications Medication Current Medications IV Flush (NS 3 ml) 3 ml PER PROTOCOL IV ; Start 11/29/18 at 07:00 Ondansetron HCl (Zofran Inj) 4 mg Q6H PRN IV NAUSEA/VOMITING Last administered on 12/02/18 08:56; Admin Dose 4 MG; Start 11/29/18 at 07:00 Acetaminophen (Tylenol Tab) 650 mg Q6H PRN PO .PAIN 1-3 OR TEMP; Start 11/29/18 at 07:00 Acetaminophen/ Hydrocodone Bitart ([place] (5/325)) 1 tab Q6H PRN PO .MOD PAIN 4- 6 Last administered on 12/01/18 22:27; Admin Dose 1 TAB; Start 11/29/18 at 07:00 Docusate Sodium (Colace) 100 mg Q12H PRN PO .CONSTIPATION; Start 11/29/18 at 07:00 Magnesium Hydroxide (Milk Of Mag) 30 ml DAILY PRN PO .CONSTIPATION; Start 11/29/18 at 07:00 Heparin Sodium (Porcine) (Heparin (5000 Units/1ml)) 5,000 unit Q12 SC Last administered on 12/02/18 09:21; Admin Dose 5,000 UNIT; Start 11/29/18 at 09:00 Lorazepam (Ativan) 0.5 mg Q6H PRN IV ANXIETY; Start 11/29/18 at 07:00 Albuterol/ Ipratropium (Duoneb) 3 ml Q4H RESP THERAPY PRN HHN SHORTNESS OF BREATH; Start 11/29/18 at 07:00 Hydralazine HCl (Apresoline) 10 mg Q6H PRN IV for sys bp > 180; Start 11/29/18 at 07:00 Nitroglycerin (Nitroglycerin (Sl Tab) 0.4 Mg) 1 tab Q5M PRN SL ANGINA Last administered on 11/30/18 10:24; Admin Dose 1 TAB; Start 11/29/18 at 07:00 Amlodipine Besylate (Norvasc) 5 mg BID PO Last administered on 12/02/18 08:28; Admin Dose 5 MG; Start 11/30/18 at 09:00 Azathioprine (Imuran) 100 mg DAILY PO Last administered on 12/02/18 08:28; Admin Dose 100 MG; Start 11/30/18 at 09:00 Cyclobenzaprine HCl (Flexeril) 10 mg TID PO Last administered on 12/02/18 08:28; Admin Dose 10 MG; Start 11/30/18 at 09:00 Nadolol (Corgard) 20 mg BID PO Last administered on 12/02/18 08:28; Admin Dose 20 MG; Start 11/30/18 at 09:00 Tramadol HCl (Ultram) 50 mg Q4 PRN PO PAIN Last administered on 12/02/18 08:56; Admin Dose 50 MG; Start 11/30/18 at 00:00 Calcium/Vitamin D (Oyster Shell/ Vit-D (500/200)) 1 tab DAILY PO Last administered on 12/02/18 08:25; Admin Dose 1 TAB; Start 11/30/18 at 09:00 Sucralfate (Carafate Susp) 1 gm QID PO Last administered on 12/02/18 08:26; Admin Dose 1 GM; Start 11/30/18 at 09:00 Pantoprazole (Protonix Iv) 40 mg BID@06,18 IV Last administered on 12/02/18 07:06; Admin Dose 40 MG; Start 11/30/18 at 06:00 Metoclopramide HCl (Reglan) 10 mg Q6H PRN IV nausae Last administered on 11/30/18 12:09; Admin Dose 10 MG; Start 11/30/18 at 11:00 Morphine Sulfate (morphine) 4 mg Q4H PRN IV .SEVERE PAIN 7-10 Last administered on 12/01/18 20:58; Admin Dose 4 MG; Start 11/30/18 at 11:30 Colchicine (Colchicine) 0.6 mg BID PO Last administered on 12/02/18 08:26; Admin Dose 0.6 MG; Start 11/30/18 at 12:30 Cefepime HCl 50 ml @ 100 mls/hr Q12 IVPB Last administered on 12/02/18 08:29; Admin Dose 100 MLS/HR; Start 12/01/18 at 15:00 Linezolid 300 ml @ 300 mls/hr Q12 IVPB Last administered on 12/02/18 10:04; Admin Dose 300 MLS/HR; Start 12/01/18 at 21:00 Methylprednisolone Sodium Succinate (Solu-Medrol) 40 mg BID IV Last administered on 12/02/18at 08:26; Admin Dose 40 MG; Start 12/02/18 at 09:00 JUSTICE CARBALLO Dec 02, 2018 10:51
[2018-12-02] MEDS: HYDROCODONE/APAP (5/325) TAB PO PRN (11:08)
--- NOTE | 2018-12-02 11:31 | PN ---
Date/Time of Note Date/Time of Note DATE: 12/02/18 TIME: 11:24 Assessment/Plan VTE Prophylaxis Risk score (from Nsg)>0 risk: 2 Pharmacological prophylaxis: heparin Lines/Catheters IV Catheter Type (from Nrsg): Saline Lock Urinary Cath still in place: No Assessment/Plan Hospital Course Subjective : still having bouts of severe back pain, but not necessarily associated with food Objective : General: A&O x3, answering questions appropriately, lethargic, mildly tachypneic?? HEENT: NC/ AT. PERRL. EOM intact Neck: supple CVS: S1, S2, RRR. no murmurs. no pain on chest wall palpation Lungs: CTA b/l. no wheezing or rhonchi Abd: soft, nontender, +BS Ext: moving all extremities, chronic deformities in her fingers throughout that are consistent with lupus and a right 2nd finger tip amputated. She has a bluish hue on the fingertips and the right 3rd digit tip also has a small ulceration present. skin: no rashes MRCP showed postsurgical change from prior splenectomy, he did confirm presence of gallstones or polyps in the gallbladder but no biliary ductal dilatation or g ross choledocholithiasis and a degree of mild pancreatitis. Assessment and plan: SIRS with bandemia 2/2 #2: improved -now with steroid induced leucocytosis Lupus flare with pancreatitis, pericarditis -Moderate pericardial effusion without evidence of tamponade -Appreciate cardiology review, no tamponade at this time, no indication for pericardiocentesis -Continue colchicine 0.6 twice daily and ongoing Solu-Medrol -appreciate rheum recommendations Severe arthritis, rheumatoid Chronic SLE History of gastritis History of extensive gastric ulcers -Mildly patulous esophagus with air and dependent debris within the distal segment, which may be secondary to reflux. Hypertension History of splenectomy Raynaud's syndrome Status post finger amputation Chronic liver cirrhosis with history of Esophageal varices -not likely to be 2/2 to lupus per rheum, ?autoimmune hepatitis? -Last EGD and colonoscopy September 26, 2018 Distended gallbladder with small gallstones without biliary ductal dilation. -MRCP done and negative Parapneumonic effusion -not enough fluid for thoracentesis -started on broad spectrum abx Status post splenectomy Dispo: -Appreciate all consults -patient still with significant back pain (may be related to pnemonia or pancreatitis) -patient wants to continue clears for now, will adjust pain meds -continue Nsaids/ steroids -ok to downgrade to medsurg if ok with cards -planned for repeat echo over the weekend -continue supportive care Discharge dispo: -once pain is improved and patient is able to tolerate a diet and cleared by all specialists . Result Diagram: 12/02/1823 12/02/18 0523 Results 24hrs Laboratory Tests Test 12/02/18 05:23 White Blood Count 14.2 H Red Blood Count 3.11 L Hemoglobin 8.2 L Hematocrit 26.8 L Mean Corpuscular Volume 86.2 Mean Corpuscular Hemoglobin 26.4 L Mean Corpuscular Hemoglobin Concent 30.6 L Red Cell Distribution Width 17.1 H Platelet Count 742 H Mean Platelet Volume 9.7 Immature Granulocytes % 1.100 H Neutrophils % 87.5 H Lymphocytes % 1.3 L Monocytes % 10.0 Eosinophils % 0.0 Basophils % 0.1 Nucleated Red Blood Cells % 3.0 H Immature Granulocytes # 0.150 H Neutrophils # 12.5 H Lymphocytes # 0.2 L Monocytes # 1.4 H Eosinophils # 0.0 Basophils # 0.0 Nucleated Red Blood Cells # 0.4 H Sodium Level 141 Potassium Level 4.5 Chloride Level 108 Carbon Dioxide Level 24 Anion Gap 9 Blood Urea Nitrogen 19 Creatinine 0.49 Est Glomerular Filtrat Rate mL/min > 60 Glucose Level 127 Calcium Level 8.9 Exam/Review of Systems Exam Vitals Vital Signs Date Temp Pulse Resp B/P (MAP) Pulse Ox O2 O2 Flow FiO2 Time Delivery Rate 12/02/18 97.8 62 22 122/53 96 Room Air 11:20 (76) Intake and Output 12/01/18 12/01/18 12/02/18 1515:00 23:00 07:00 IntakeIntake Total 50 ml 300 ml BalanceBalance 50 ml 300 ml Results Results 24hrs Laboratory Tests Test 12/02/18 05:23 White Blood Count 14.2 H Red Blood Count 3.11 L Hemoglobin 8.2 L Hematocrit 26.8 L Mean Corpuscular Volume 86.2 Mean Corpuscular Hemoglobin 26.4 L Mean Corpuscular Hemoglobin Concent 30.6 L Red Cell Distribution Width 17.1 H Platelet Count 742 H Mean Platelet Volume 9.7 Immature Granulocytes % 1.100 H Neutrophils % 87.5 H Lymphocytes % 1.3 L Monocytes % 10.0 Eosinophils % 0.0 Basophils % 0.1 Nucleated Red Blood Cells % 3.0 H Immature Granulocytes # 0.150 H Neutrophils # 12.5 H Lymphocytes # 0.2 L Monocytes # 1.4 H Eosinophils # 0.0 Basophils # 0.0 Nucleated Red Blood Cells # 0.4 H Sodium Level 141 Potassium Level 4.5 Chloride Level 108 Carbon Dioxide Level 24 Anion Gap 9 Blood Urea Nitrogen 19 Creatinine 0.49 Est Glomerular Filtrat Rate mL/min > 60 Glucose Level 127 Calcium Level 8.9 Medications Medication Current Medications IV Flush (NS 3 ml) 3 ml PER PROTOCOL IV ; Start 11/29/18 at 07:00 Ondansetron HCl (Zofran Inj) 4 mg Q6H PRN IV NAUSEA/VOMITING Last administered on 12/02/18at 08:56; Admin Dose 4 MG; Start 11/29/18 at 07:00 Acetaminophen (Tylenol Tab) 650 mg Q6H PRN PO .PAIN 1-3 OR TEMP; Start 11/29/18 at 07:00 Acetaminophen/ Hydrocodone Bitart ([place] (5/325)) 1 tab Q6H PRN PO .MOD PAIN 4- 6 Last administered on 12/02/18at 11:08; Admin Dose 1 TAB; Start 11/29/18 at 07:00 Docusate Sodium (Colace) 100 mg Q12H PRN PO .CONSTIPATION; Start 11/29/18 at 07:00 Magnesium Hydroxide (Milk Of Mag) 30 ml DAILY PRN PO .CONSTIPATION; Start 11/29/18 at 07:00 Heparin Sodium (Porcine) (Heparin (5000 Units/1ml)) 5,000 unit Q12 SC Last administered on 12/02/18at 09:21; Admin Dose 5,000 UNIT; Start 11/29/18 at 09:00 Lorazepam (Ativan) 0.5 mg Q6H PRN IV ANXIETY; Start 11/29/18 at 07:00 Albuterol/ Ipratropium (Duoneb) 3 ml Q4H RESP THERAPY PRN HHN SHORTNESS OF BREATH; Start 11/29/18 at 07:00 Hydralazine HCl (Apresoline) 10 mg Q6H PRN IV for sys bp > 180; Start 11/29/18 at 07:00 Nitroglycerin (Nitroglycerin (Sl Tab) 0.4 Mg) 1 tab Q5M PRN SL ANGINA Last administered on 11/30/18 10:24; Admin Dose 1 TAB; Start 11/29/18 at 07:00 Amlodipine Besylate (Norvasc) 5 mg BID PO Last administered on 12/02/18 08:28; Admin Dose 5 MG; Start 11/30/18 at 09:00 Azathioprine (Imuran) 100 mg DAILY PO Last administered on 12/02/18 08:28; A dmin Dose 100 MG; Start 11/30/18 at 09:00 Cyclobenzaprine HCl (Flexeril) 10 mg TID PO Last administered on 12/02/18 08:28; Admin Dose 10 MG; Start 11/30/18 at 09:00 Nadolol (Corgard) 20 mg BID PO Last administered on 12/02/18 08:28; Admin Dose 20 MG; Start 11/30/18 at 09:00 Tramadol HCl (Ultram) 50 mg Q4 PRN PO PAIN Last administered on 12/02/18 08:56; Admin Dose 50 MG; Start 11/30/18 at 00:00 Calcium/Vitamin D (Oyster Shell/ Vit-D (500/200)) 1 tab DAILY PO Last administered on 12/02/18 08:25; Admin Dose 1 TAB; Start 11/30/18 at 09:00 Sucralfate (Carafate Susp) 1 gm QID PO Last administered on 12/02/18 08:26; Admin Dose 1 GM; Start 11/30/18 at 09:00 Pantoprazole (Protonix Iv) 40 mg BID@06,18 IV Last administered on 12/02/18 07:06; Admin Dose 40 MG; Start 11/30/18 at 06:00 Metoclopramide HCl (Reglan) 10 mg Q6H PRN IV nausae Last administered on 11/30/18 12:09; Admin Dose 10 MG; Start 11/30/18 at 11:00 Morphine Sulfate (morphine) 4 mg Q4H PRN IV .SEVERE PAIN 7-10 Last administered on 12/01/18 20:58; Admin Dose 4 MG; Start 11/30/18 at 11:30 Colchicine (Colchicine) 0.6 mg BID PO Last administered on 12/02/18 08:26; Admin Dose 0.6 MG; Start 11/30/18 at 12:30 Cefepime HCl 50 ml @ 100 mls/hr Q12 IVPB Last administered on 12/02/18 08:29; Admin Dose 100 MLS/HR; Start 12/01/18 at 15:00 Linezolid 300 ml @ 300 mls/hr Q12 IVPB Last administered on 12/02/18 10:04; Admin Dose 300 MLS/HR; Start 12/01/18 at 21:00 Methylprednisolone Sodium Succinate (Solu-Medrol) 40 mg BID IV Last administer ed on 12/02/18 08:26; Admin Dose 40 MG; Start 12/02/18 at 09:00 CHERYLE LEONARD Dec 02, 2018 11:31
--- NOTE | 2018-12-02 12:01 | CONS ---
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 No tamponade physiology. Pleuritic chest pain. Due to lupus flare Acute pancreatitis: seen on CT but lipase ok PNA SLE flare with serositis RA Reynauds Splenectomy Liver cirrhosis with varices h/o gastric ulcers -has a rub on exam today possibly suggesting the effusion has improved. Will check a limited echo tomorrow am to eval -continue colchicine 0.6mg BID. No NSAIDs with ulcers -steroids per rheum/pulm Consultation Date/Type/Reason Admit Date/Time Nov 29, 2018 at 06:15 Initial Consult Date 12/01/18 Type of Consult Cardiology Requesting Provider: CHERYLE LEONARD Date/Time of Note DATE: 12/02/18 TIME: 11:59 24 HR Interval Summary Free Text/Dictation Had food last night and more abdominal pain. Had jello this am and was ok. Chest pain significantly improved. Now with a rub on exam Exam/Review of Systems Vital Signs Vitals Vital Signs Date Temp Pulse Resp B/P (MAP) Pulse Ox O2 O2 Flow FiO2 Time Delivery Rate 12/02/18 97.8 62 22 122/53 96 Room Air 11:20 (76) Intake and Output 12/01/18 12/01/18 12/02/18 1515:00 23:00 07:00 IntakeIntake Total 50 ml 300 ml BalanceBalance 50 ml 300 ml Exam Constitutional: alert, oriented Psych: no complaints, nl mood/affect Head: normocephalic, atraumatic Neck: supple; No jvd Respiratory: diminished breath sounds; No clear to auscultation Cardiovascular: regular rate and rhythm, rub; No edema Gastrointestinal: soft; No non-tender (mild), No distended Neurological: nl mental status, nl speech Labs Result Diagram: 12/02/18 0523 12/02/18 0523 Results 24hrs Laboratory Tests Test 12/02/18 05:23 White Blood Count 14.2 H Red Blood Count 3.11 L Hemoglobin 8.2 L Hematocrit 26.8 L Mean Corpuscular Volume 86.2 Mean Corpuscular Hemoglobin 26.4 L Mean Corpuscular Hemoglobin Concent 30.6 L Red Cell Distribution Width 17.1 H Platelet Count 742 H Mean Platelet Volume 9.7 Immature Granulocytes % 1.100 H Neutrophils % 87.5 H Lymphocytes % 1.3 L Monocytes % 10.0 Eosinophils % 0.0 Basophils % 0.1 Nucleated Red Blood Cells % 3.0 H Immature Granulocytes # 0.150 H Neutrophils # 12.5 H Lymphocytes # 0.2 L Monocytes # 1.4 H Eosinophils # 0.0 Basophils # 0.0 Nucleated Red Blood Cells # 0.4 H Sodium Level 141 Potassium Level 4.5 Chloride Level 108 Carbon Dioxide Level 24 Anion Gap 9 Blood Urea Nitrogen 19 Creatinine 0.49 Est Glomerular Filtrat Rate mL/min > 60 Glucose Level 127 Calcium Level 8.9 Medications Medications Current Medications IV Flush (NS 3 ml) 3 ml PER PROTOCOL IV ; Start 11/29/18 at 07:00 Ondansetron HCl (Zofran Inj) 4 mg Q6H PRN IV NAUSEA/VOMITING Last administered on 12/02/18at 08:56; Admin Dose 4 MG; Start 11/29/18 at 07:00 Acetaminophen (Tylenol Tab) 650 mg Q6H PRN PO .PAIN 1-3 OR TEMP; Start 11/29/18 at 07:00 Acetaminophen/ Hydrocodone Bitart ([place] (5/325)) 1 tab Q6H PRN PO .MOD PAIN 4- 6 Last administered on 12/02/18at 11:08; Admin Dose 1 TAB; Start 11/29/18 at 07:00 Docusate Sodium (Colace) 100 mg Q12H PRN PO .CONSTIPATION; Start 11/29/18 at 07:00 Magnesium Hydroxide (Milk Of Mag) 30 ml DAILY PRN PO .CONSTIPATION; Start at 07:00 Heparin Sodium (Porcine) (Heparin (5000 Units/1ml)) 5,000 unit Q12 SC Last administered on 12/02/18at 09:21; Admin Dose 5,000 UNIT; Start 11/29/18 at 09:00 Lorazepam (Ativan) 0.5 mg Q6H PRN IV ANXIETY; Start 11/29/18 at 07:00 Albuterol/ Ipratropium (Duoneb) 3 ml Q4H RESP THERAPY PRN HHN SHORTNESS OF BREATH; Start 11/29/18 at 07:00 Hydralazine HCl (Apresoline) 10 mg Q6H PRN IV for sys bp > 180; Start 11/29/18 at 07:00 Nitroglycerin (Nitroglycerin (Sl Tab) 0.4 Mg) 1 tab Q5M PRN SL ANGINA Last administered on 11/30/18 10:24; Admin Dose 1 TAB; Start 11/29/18 at 07:00 Amlodipine Besylate (Norvasc) 5 mg BID PO Last administered on 12/02/18 08:28; Admin Dose 5 MG; Start 11/30/18 at 09:00 Azathioprine (Imuran) 100 mg DAILY PO Last administered on 12/02/18 08:28; Admin Dose 100 MG; Start 11/30/18 at 09:00 Cyclobenzaprine HCl (Flexeril) 10 mg TID PO Last administered on 12/02/18 08:28; Admin Dose 10 MG; Start 11/30/18 at 09:00 Nadolol (Corgard) 20 mg BID PO Last administered on 12/02/18 08:28; Admin Dose 20 MG; Start 11/30/18 at 09:00 Tramadol HCl (Ultram) 50 mg Q4 PRN PO PAIN Last administered on 12/02/18 08:56; Admin Dose 50 MG; Start 11/30/18 at 00:00 Calcium/Vitamin D ([place]yster [place]/ Vit-D (500/200)) 1 tab DAILY PO Last administered on 12/02/18 08:25; Admin Dose 1 TAB; Start 11/30/18 at 09:00 Sucralfate (Carafate Susp) 1 gm QID PO Last administered on 12/02/18 08:26; Admin Dose 1 GM; Start 11/30/18 at 09:00 Pantoprazole (Protonix Iv) 40 mg BID@06,18 IV Last administered on 12/02/18 07:06; Admin Dose 40 MG; Start 11/30/18 at 06:00 Metoclopramide HCl (Reglan) 10 mg Q6H PRN IV nausae Last administered on 11/30/18 12:09; Admin Dose 10 MG; Start 11/30/18 at 11:00 Morphine Sulfate (morphine) 4 mg Q4H PRN IV .SEVERE PAIN 7-10 Last administered on 12/01/18 20:58; Admin Dose 4 MG; Start 11/30/18 at 11:30 Colchicine (Colchicine) 0.6 mg BID PO Last administered on 12/02/18 08:26; Admin Dose 0.6 MG; Start 11/30/18 at 12:30 Cefepime HCl 50 ml @ 100 mls/hr Q12 IVPB Last administered on 12/02/18 08:29; Admin Dose 100 MLS/HR; Start 12/01/18 at 15:00 Linezolid 300 ml @ 300 mls/hr Q12 IVPB Last administered on 12/02/18 10:04; Admin Dose 300 MLS/HR; Start 12/01/18 at 21:00 Methylprednisolone Sodium Succinate (Solu-Medrol) 40 mg BID IV Last administered on 12/02/18 08:26; Admin Dose 40 MG; Start 12/02/18 at 09:00 MEET GAYLE Dec 02, 2018 12:01
[2018-12-02] MEDS: HYDROmorphONE 1 MG/ML SYG IV PRN ×2 (13:19→18:19)
--- NOTE | 2018-12-02 14:38 | CONS ---
Consult Date/Type/Reason Admit Date/Time Nov 29, 2018 at 06:15 Initial Consult Date 12/01/18 Type of Consultation: Rheumatology Reason for Consultation Pulmonary and Cardiology notes reviewed. Now steroids decreased to prednisone 10 mg bid. Patient feeling better overall. Some epigastric pain at times, radiating to back. No new other complaints. Requesting Provider: CHERYLE LEONARD Date/Time of Note DATE: 12/02/18 TIME: 14:25 Objective Vitals Vital Signs Date Temp Pulse Resp B/P (MAP) Pulse Ox O2 O2 Flow FiO2 Time Delivery Rate 12/02/18 97.8 62 22 122/53 96 Room Air 11:20 (76) Intake and Output 12/01/18 12/01/18 12/02/18 1515:00 23:00 07:00 IntakeIntake Total 50 ml 300 ml BalanceBalance 50 ml 300 ml Exam GENERAL: Alert and oriented in no acute distress, SKIN: No rashes or new lesions. HEENT: No acute oral or ocular lesions. NECK: Supple. No lymphadenopathy. CARDIOVASCULAR: Regular rate and rhythm. LUNGS: Clear to auscultation bilaterally. No wheezing or rhonchi. ABDOMEN: Soft, mild epigastric tenderness. No rebound tenderness. Bowel sounds are present. EXTREMITIES: No Edema. Mild cyanosis fingers. MUSCULOSKELETAL: No synovitis NEUROL: Grossly intact Results/Medications Result Diagram: 12/02/18 0523 12/02/18 0523 Results 24 hrs Laboratory Tests Test 12/02/18 05:23 White Blood Count 14.2 H Red Blood Count 3.11 L Hemoglobin 8.2 L Hematocrit 26.8 L Mean Corpuscular Volume 86.2 Mean Corpuscular Hemoglobin 26.4 L Mean Corpuscular Hemoglobin Concent 30.6 L Red Cell Distribution Width 17.1 H Platelet Count 742 H Mean Platelet Volume 9.7 Immature Granulocytes % 1.100 H Neutrophils % 87.5 H Lymphocytes % 1.3 L Monocytes % 10.0 Eosinophils % 0.0 Basophils % 0.1 Nucleated Red Blood Cells % 3.0 H Immature Granulocytes # 0.150 H Neutrophils # 12.5 H Lymphocytes # 0.2 L Monocytes # 1.4 H Eosinophils # 0.0 Basophils # 0.0 Nucleated Red Blood Cells # 0.4 H Sodium Level 141 Potassium Level 4.5 Chloride Level 108 Carbon Dioxide Level 24 Anion Gap 9 Blood Urea Nitrogen 19 Creatinine 0.49 Est Glomerular Filtrat Rate mL/min > 60 Glucose Level 127 Calcium Level 8.9 Home Meds Active Scripts Cyclobenzaprine Hcl* (Cyclobenzaprine Hcl*) 10 Mg Tablet, 10 MG PO TID, #15 TAB Prov:MICKY CHAN MD 11/26/18 Tramadol HCl (Tramadol HCl) 50 Mg Tablet, 50 MG PO Q4 PRN for PAIN, #20 TAB Prov:MICKY CHAN MD 11/26/18 Ondansetron Hcl* (Zofran*) 8 Mg Tablet, 8 MG PO Q6H PRN for NAUSEA AND OR VOMITING, #20 TAB Prov:JENNY RAWLS MD 11/20/18 Levofloxacin* (Levaquin*) 750 Mg Tablet, 750 MG PO DAILY for 7 Days, TAB Prov:JENNY RAWLS MD 11/20/18 Sucralfate* (Carafate*) 1 Gm/10 Ml Susp, 1 GM PO QID for 30 Days, #1 EA 2 Refills Prov:LIUDMILA DUMONT MD 11/17/18 Metoclopramide Hcl* (Metoclopramide Hcl*) 10 Mg Tablet, 10 MG PO QID for 10 Days, #40 TAB Prov:LIUDMILA DUMONT MD 11/17/18 Acetaminophen* (Tylenol*) 325 Mg Tablet, 650 MG PO Q6H PRN for .PAIN 1-3 OR TEMP for 1 Day, TAB Prov:LIUDMILA DUMONT MD 11/17/18 Nadolol (Corgard) 40 Mg Tablet, 20 MG PO BID for 15 Days, #30 TAB Prov:LIUDMILA DUMONT MD 11/17/18 Pantoprazole* (Pantoprazole*) 40 Mg Tablet.dr, 40 MG PO BID@06,18 for 30 Days, #60 TAB 1 Refill Prov:LIUDMILA DUMONT MD 11/17/18 Reported Medications Amlodipine Besylate* (Amlodipine Besylate*) 10 Mg Tablet, 5 MG PO BID, #30 TAB 11/29/18 Calcium Carbonate/Vitamin D3 (Calcium 500 mg Chewable Tablet) 1 Each Tab.chew, 1 EACH PO DAILY, TAB.CHEW 11/14/18 Prednisone* (Prednisone*) 5 Mg Tab, 5 MG PO DAILY, TAB 11/14/18 Azathioprine* (Imuran*) 50 Mg Tab, 100 MG PO DAILY, TAB 11/14/18 Ergocalciferol (Vitamin D2) (VITAMIN D2) 50,000 Unit Capsule, 91383 UNIT PO QMONDAY 09/22/18 Medications Current Medications IV Flush (NS 3 ml) 3 ml PER PROTOCOL IV ; Start 11/29/18 at 07:00 Ondansetron HCl (Zofran Inj) 4 mg Q6H PRN IV NAUSEA/VOMITING Last administered on 12/02/18at 08:56; Admin Dose 4 MG; Start 11/29/18 at 07:00 Acetaminophen (Tylenol Tab) 650 mg Q6H PRN PO .PAIN 1-3 OR TEMP; Start 11/29/18 at 07:00 Acetaminophen/ Hydrocodone Bitart ([place] (5/325)) 1 tab Q6H PRN PO .MOD PAIN 4- 6 Last administered on 12/02/18at 11:08; Admin Dose 1 TAB; Start 11/29/18 at 07:00 Docusate Sodium (Colace) 100 mg Q12H PRN PO .CONSTIPATION; Start 11/29/18 at 07:00 Magnesium Hydroxide (Milk Of Mag) 30 ml DAILY PRN PO .CONSTIPATION; Start 11/29/18 at 07:00 Heparin Sodium (Porcine) (Heparin (5000 Units/1ml)) 5,000 unit Q12 SC Last administered on 12/02/18at 09:21; Admin Dose 5,000 UNIT; Start 11/29/18 at 09:00 Lorazepam (Ativan) 0.5 mg Q6H PRN IV ANXIETY; Start 11/29/18 at 07:00 Albuterol/ Ipratropium (Duoneb) 3 ml Q4H RESP THERAPY PRN HHN SHORTNESS OF BREATH; Start 11/29/18 at 07:00 Hydralazine HCl (Apresoline) 10 mg Q6H PRN IV for sys bp > 180; Start 11/29/18 at 07:00 Nitroglycerin (Nitroglycerin (Sl Tab) 0.4 Mg) 1 tab Q5M PRN SL ANGINA Last administered on 11/30/18at 10:24; Admin Dose 1 TAB; Start 11/29/18 at 07:00 Amlodipine Besylate (Norvasc) 5 mg BID PO Last administered on 12/02/18 08:28; Admin Dose 5 MG; Start 11/30/18 at 09:00 Azathioprine (Imuran) 100 mg DAILY PO Last administered on 12/02/18 08:28; Admin Dose 100 MG; Start 11/30/18 at 09:00 Cyclobenzaprine HCl (Flexeril) 10 mg TID PO Last administered on 12/02/18 12:19; Admin Dose 10 MG; Start 11/30/18 at 09:00 Nadolol (Corgard) 20 mg BID PO Last administered on 12/02/18 08:28; Admin Dose 20 MG; Start 11/30/18 at 09:00 Tramadol HCl (Ultram) 50 mg Q4 PRN PO PAIN Last administered on 12/02/18 08:56; Admin Dose 50 MG; Start 11/30/18 at 00:00 Calcium/Vitamin D (Oyster Shell/ Vit-D (500/200)) 1 tab DAILY PO Last administered on 12/02/18 08:25; Admin Dose 1 TAB; Start 11/30/18 at 09:00 Sucralfate (Carafate Susp) 1 gm QID PO Last administered on 12/02/18 12:19; Admin Dose 1 GM; Start 11/30/18 at 09:00 Pantoprazole (Protonix Iv) 40 mg BID@06,18 IV Last administered on 12/02/18 07:06; Admin Dose 40 MG; Start 11/30/18 at 06:00 Metoclopramide HCl (Reglan) 10 mg Q6H PRN IV nausae Last administered on 11/30/18 at 12:09; Admin Dose 10 MG; Start 11/30/18 at 11:00 Colchicine (Colchicine) 0.6 mg BID PO Last administered on 12/02/18 08:26; Admin Dose 0.6 MG; Start 11/30/18 at 12:30 Cefepime HCl 50 ml @ 100 mls/hr Q12 IVPB Last administered on 12/02/18 08:29; Admin Dose 100 MLS/HR; Start 12/01/18 at 15:00 Linezolid 300 ml @ 300 mls/hr Q12 IVPB Last administered on 6/7/19at 10:04; Admin Dose 300 MLS/HR; Start 12/01/18 at 21:00 Methylprednisolone Sodium Succinate (Solu-Medrol) 40 mg BID IV Last administered on 12/02/18at 08:26; Admin Dose 40 MG; Start 12/02/18 at 09:00 Hydromorphone HCl (Dilaudid) 1 mg Q4H PRN IV SEVERE PAIN LEVEL 7-10 Last administered on 12/02/18at 13:19; Admin Dose 1 MG; Start 12/02/18 at 12:30 Assessment/Plan Assessment/Plan (Daily) ASSESSMENT AND PLAN 1. Probable pneumonia Improving. 2.. Lupus flare possibly. Agree with decreasing steroids as clinically improving. Various lab results pending 3.. 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 Repeat an echo per cardiology. Continue the colchicine 0.6 b.i.d. 4.. Pancreatitis. The patient seems to be improving. 5.. Pleural effusion. Appears to be more consistent with infection rather than Lupus flare, per Pulmonary. 6. Cirrhosis with esophageal varices. LFTs are within normal limits. We will just continue to follow. 7. Raynaud's syndrome, status post finger amputation. Raynaud's precautions. SAHRA GOYAL MD Dec 02, 2018 14:37
--- NOTE | 2018-12-02 14:53 | PN ---
Date/Time of Note Date/Time of Note DATE: 12/02/18 TIME: 14:47 Assessment/Plan VTE Prophylaxis Risk score (from Nsg)>0 risk: 2 Pharmacological prophylaxis: heparin Lines/Catheters IV Catheter Type (from Nrsg): [place] [facility] Urinary Cath still in place: No Assessment/Plan Assessment/Plan Assessment: Epigastric pain-with radiation to left upper quadrant and left flank/back -CT is concerning for pancreatitis, however lipase WNL Left pleural effusion Diarrhea Pericardial effusion, moderate -Echocardiogram - Small to borderline moderate circumferential pericardial effusion without evidence of tamponade. EF 55% Normocytic Anemia Thrombocytosis Recent History Hematemesis EGD 11/15/2018 Extensive ulceration of the distal esophagus, rule out opportunistic infection, biopsies obtained. Grade II/IV esophageal varices. No stigmata of recent bleeding. No therapeutic intervention required Mild gastritis versus portal gastropathy, Otherwise normal EGD Stomach biopsy negative for H. pylori infection, no evidence of intestinal metaplasia, dysplasia, or malignancy Esophageal ulcer biopsy mucosa showing moderate chronic inflammation no squamous mucosa is present. No goblet cells are identified, no H. pylori is identified, no evidence of dysplasia or malignancy SLE/Rheumatoid arthritis/Raynaud's syndrome -On prednisone. History of Splenectomy Depression HTN Hx of EGD/colonoscopy 09/26/18 Colonoscopy 09/26/2018colitis more significant in the area of the rectum moder ate size internal hemorrhoidsbiopsy negative for evidence of colitis EGD grade II/IV esophageal varices, severe gastritisbiopsies negative for H. pylori Liver cirrhosis- with hx of EV -Hepatitis serology negative -ASMA,AMA- negative Status post finger amputation secondary to Raynaud's syndrome Leukocytosis currently on steroid therapy Plan: Start Creon Stool studies Currently no plan to re-scope given recent EGD- will continue PPI/Carafate Clear liquid diet- If patient continues to improved advance diet to low /low fat diet in am Supportive care Patient seen in collaboration with Subjective: Course reviewed with nursing staff Patient interviewed and examined All labs, imaging and other results reviewed Patient is complaining of epigastric pain radiating to the back. She is also having loose bowel movements x2 today. MRCP showing signs of chronic pancreatitis. Discussed results with the patient. Will order Creon for malabsorption. Will order stool studies. Continue observation. Exam PHYSICAL EXAMINATION: GENERAL: Chronically ill appearing young woman, alert & oriented x 3, edema/swelling from chronic steroid use SKIN: No lesions. HEAD: Normocephalic, atraumatic, no tenderness. EYES: Pupils equal reactive to light, no discharge. EARS/NOSE AND THROAT: Ears normal, nose normal. NECK: Supple, no masses, thyroid normal. CHEST: Inspection within normal limits. CARDIOVASCULAR: Heart: Regular rate and rhythm RESPIRATORY: Lungs clear to auscultation. GASTROINTESTINAL AND LIVER: Abdomen: obese, soft, epigastric tenderness, non-distended, no hernias, no masses, normoactive bowel sounds. Rectal: Deferred. EXTREMITIES: No cyanosis, clubbing or edema. Right index finger amputated 1 phalanx Result Diagram: 12/02/1852212/02/18522 Results 24hrs Laboratory Tests Test 12/02/18 05:23 White Blood Count 14.2 H Red Blood Count 3.11 L Hemoglobin 8.2 L Hematocrit 26.8 L Mean Corpuscular Volume 86.2 Mean Corpuscular Hemoglobin 26.4 L Mean Corpuscular Hemoglobin Concent 30.6 L Red Cell Distribution Width 17.1 H Platelet Count 742 H Mean Platelet Volume 9.7 Immature Granulocytes % 1.100 H Neutrophils % 87.5 H Lymphocytes % 1.3 L Monocytes % 10.0 Eosinophils % 0.0 Basophils % 0.1 Nucleated Red Blood Cells % 3.0 H Immature Granulocytes # 0.150 H Neutrophils # 12.5 H Lymphocytes # 0.2 L Monocytes # 1.4 H Eosinophils # 0.0 Basophils # 0.0 Nucleated Red Blood Cells # 0.4 H Sodium Level 141 Potassium Level 4.5 Chloride Level 108 Carbon Dioxide Level 24 Anion Gap 9 Blood Urea Nitrogen 19 Creatinine 0.49 Est Glomerular Filtrat Rate mL/min > 60 Glucose Level 127 Calcium Level 8.9 CC: PAUL ANTHONY MD ; Exam/Review of Systems Exam Vitals Vital Signs Date Temp Pulse Resp B/P (MAP) Pulse Ox O2 O2 Flow FiO2 Time Delivery Rate 12/02/18 97.8 62 22 122/53 96 Room Air 11:20 (76) Intake and Output 12/01/18 12/01/18 12/02/18 1515:00 23:00 07:00 IntakeIntake Total 50 ml 300 ml BalanceBalance 50 ml 300 ml Results Results 24hrs Laboratory Tests Test 12/02/18 05:23 White Blood Count 14.2 H Red Blood Count 3.11 L Hemoglobin 8.2 L Hematocrit 26.8 L Mean Corpuscular Volume 86.2 Mean Corpuscular Hemoglobin 26.4 L Mean Corpuscular Hemoglobin Concent 30.6 L Red Cell Distribution Width 17.1 H Platelet Count 742 H Mean Platelet Volume 9.7 Immature Granulocytes % 1.100 H Neutrophils % 87.5 H Lymphocytes % 1.3 L Monocytes % 10.0 Eosinophils % 0.0 Basophils % 0.1 Nucleated Red Blood Cells % 3.0 H Immature Granulocytes # 0.150 H Neutrophils # 12.5 H Lymphocytes # 0.2 L Monocytes # 1.4 H Eosinophils # 0.0 Basophils # 0.0 Nucleated Red Blood Cells # 0.4 H Sodium Level 141 Potassium Level 4.5 Chloride Level 108 Carbon Dioxide Level 24 Anion Gap 9 Blood Urea Nitrogen 19 Creatinine 0.49 Est Glomerular Filtrat Rate mL/min > 60 Glucose Level 127 Calcium Level 8.9 Medications Medication Current Medications IV Flush (NS 3 ml) 3 ml PER PROTOCOL IV ; Start 11/29/18 at 07:00 Ondansetron HCl (Zofran Inj) 4 mg Q6H PRN IV NAUSEA/VOMITING Last administered on 12/02/18at 08:56; Admin Dose 4 MG; Start 11/29/18 at 07:00 Acetaminophen (Tylenol Tab) 650 mg Q6H PRN PO .PAIN 1-3 OR TEMP; Start 11/29/18 at 07:00 Acetaminophen/ Hydrocodone Bitart ([place] (5/325)) 1 tab Q6H PRN PO .MOD PAIN 4- 6 Last administered on 12/02/18at 11:08; Admin Dose 1 TAB; Start 11/29/18 at 07:00 Docusate Sodium (Colace) 100 mg Q12H PRN PO .CONSTIPATION; Start 11/29/18 at 07:00 Magnesium Hydroxide (Milk Of Mag) 30 ml DAILY PRN PO .CONSTIPATION; Start 11/29/18 at 07:00 Heparin Sodium (Porcine) (Heparin (5000 Units/1ml)) 5,000 unit Q12 SC Last administered on 12/02/18at 09:21; Admin Dose 5,000 UNIT; Start 11/29/18 at 09:00 Lorazepam (Ativan) 0.5 mg Q6H PRN IV ANXIETY; Start 11/29/18 at 07:00 Albuterol/ Ipratropium (Duoneb) 3 ml Q4H RESP THERAPY PRN HHN SHORTNESS OF BREATH; Start 11/29/18 at 07:00 Hydralazine HCl (Apresoline) 10 mg Q6H PRN IV for sys bp > 180; Start 11/29/18 at 07:00 Nitroglycerin (Nitroglycerin (Sl Tab) 0.4 Mg) 1 tab Q5M PRN SL ANGINA Last administered on 11/30/18 10:24; Admin Dose 1 TAB; Start 11/29/18 at 07:00 Amlodipine Besylate (Norvasc) 5 mg BID PO Last administered on 12/02/18 08:28; Admin Dose 5 MG; Start 11/30/18 at 09:00 Azathioprine (Imuran) 100 mg DAILY PO Last administered on 12/02/18 08:28; Admin Dose 100 MG; Start 11/30/18 at 09:00 Cyclobenzaprine HCl (Flexeril) 10 mg TID PO Last administered on 12/02/18 12:1 9; Admin Dose 10 MG; Start 11/30/18 at 09:00 Nadolol (Corgard) 20 mg BID PO Last administered on 12/02/18 08:28; Admin Dose 20 MG; Start 11/30/18 at 09:00 Tramadol HCl (Ultram) 50 mg Q4 PRN PO PAIN Last administered on 12/02/18 08:56; Admin Dose 50 MG; Start 11/30/18 at 00:00 Calcium/Vitamin D (Oyster Shell/ Vit-D (500/200)) 1 tab DAILY PO Last administered on 12/02/18 08:25; Admin Dose 1 TAB; Start 11/30/18 at 09:00 Sucralfate (Carafate Susp) 1 gm QID PO Last administered on 12/02/18 12:19; Adm in Dose 1 GM; Start 11/30/18 at 09:00 Pantoprazole (Protonix Iv) 40 mg BID@18 IV Last administered on 12/02/18 07:06; Admin Dose 40 MG; Start 11/30/18 at 06:00 Metoclopramide HCl (Reglan) 10 mg Q6H PRN IV nausae Last administered on 11/30/18 12:09; Admin Dose 10 MG; Start 11/30/18 at 11:00 Colchicine (Colchicine) 0.6 mg BID PO Last administered on 12/02/18 08:26; Admin Dose 0.6 MG; Start 11/30/18 at 12:30 Cefepime HCl 50 ml @ 100 mls/hr Q12 IVPB Last administered on 12/02/18 08:29; Admin Dose 100 MLS/HR; Start 12/01/18 at 15:00 Linezolid 300 ml @ 300 mls/hr Q12 IVPB Last administered on 12/02/18 10:04; Admin Dose 300 MLS/HR; Start 12/01/18 at 21:00 Methylprednisolone Sodium Succinate (Solu-Medrol) 40 mg BID IV Last administered on 12/02/18 08:26; Admin Dose 40 MG; Start 12/02/18 at 09:00 Hydromorphone HCl (Dilaudid) 1 mg Q4H PRN IV SEVERE PAIN LEVEL 7-10 Last administered on 12/02/18 13:19; Admin Dose 1 MG; Start 12/02/18 at 12:30 PAUL APPIAH NP Dec 02, 2018 14:53
[2018-12-02] MEDS: CREON (24K-76K-120K) 1 CAP PO SCH (17:55)
[2018-12-03] VITALS (10 sets, daily range): BP systolic 112–136; BP diastolic 63–79; PULSE 51–81; RESP 17–22
[2018-12-03] MEDS: traMADol 50 MG TAB PO PRN (03:13)
[2018-12-03] MEDS: HYDROmorphONE 1 MG/ML SYG IV PRN ×3 (03:45→22:28)
[2018-12-03] MEDS: ONDANSETRON 4 MG INJ IV PRN (03:47)
[2018-12-03] MEDS: PANTOPRAZOLE 40 MG INJ IV SCH ×2 (06:24→17:45)
[2018-12-03] MEDS: CALCIUM/VITAMIN D (500/200) TAB PO SCH (08:22)
[2018-12-03] MEDS: CREON (24K-76K-120K) 1 CAP PO SCH ×3 (08:22→17:44)
[2018-12-03] MEDS: AZATHIOPRINE 50 MG TAB PO SCH (08:22)
[2018-12-03] MEDS: SUCRALFATE (100 MG/ML) 10ML CUP PO SCH ×5 (08:23→22:28)
[2018-12-03] MEDS: METHYLPREDNISOLONE 40 MG INJ IV SCH ×2 (08:23→21:03)
[2018-12-03] MEDS: COLCHICINE 0.6 MG TAB PO SCH ×2 (08:23→21:07)
[2018-12-03] MEDS: CYCLOBENZAPRINE 10 MG TAB PO SCH ×3 (08:23→21:07)
[2018-12-03] MEDS: CEFEPIME 1GM/50 ML (PMX) 50 ML IVPB SCH ×2 (08:23→21:04)
[2018-12-03] MEDS: AMLODIPINE 10 MG TAB PO SCH ×2 (08:25→21:08)
[2018-12-03] MEDS: NADOLOL 40 MG TAB PO SCH ×2 (08:26→21:07)
[2018-12-03] MEDS: HEPARIN 5,000 UNIT/1 ML VIAL SC SCH ×2 (08:40→22:09)
[2018-12-03] MEDS: LINEZOLID 600 MG/300 ML (PMX) 300 ML IVPB SCH ×2 (09:24→21:10)
--- NOTE | 2018-12-03 09:59 | CONS ---
Assessment/Plan Assessment/Plan Assessment/Plan (Daily) Assessment and recommendations; 1. Patient admitted with left lower lobe pneumonia with complicated left parapneumonic effusion, effusion to small for thoracentesis to be performed. Patient however clinically improving on current treatment regimen. 2. Chronic immunosuppression, patient on long-term Imuran and prednisone at home. 3. Rainouts disease. 4. Pericarditis. Clinically improving. 5. History of recently diagnosed gastritis by endoscopy at another facility. Continue current supportive care. Chest x-ray is pending. Consultation Date/Type/Reason Admit Date/Time Nov 29, 2018 at 06:15 Initial Consult Date 12/01/18 Type of Consult Pulmonary Patient is a very pleasant 39-year-old lady who came into the hospital with a few days history of coughing high fever and mild shortness of breath. Patient also been complaining of abdominal pain without any nausea vomiting. Upon evaluation a chest x-ray was done which showed left lower lobe infiltrate, patient subsequently had a CT of the chest done which is showing a partially loculated left pleural effusion with infiltrative changes in the left lower lobe. Patient feeling somewhat better since admission and reporting significant reduction in abdominal pain. According to the patient the fever was as high as 101 F few days ago. Patient denies any prior history of pneumonia or any pleural effusion. Past medical history; 1. SLE. 2. Chronic immunosuppression with prednisone and Imuran. 3. No history of any pleural effusion or any history of serositis. 4. 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 5. History of splenectomy with laparotomy. Medications; reviewed. Allergies; as outlined above. Social history; most of any alcohol drug or tobacco abuse. Family history; noncontributory. Occupational history; patient is on disability. Review of systems; denies any headache, seizures, visual changes. Any sore throat, dysphagia, Complains of mild left lateral chest pain. Complains of cough with fever. Denies any sputum production hemoptysis. Abdominal pain is markedly improved. Denies any nausea vomiting. Any diarrhea, constipation, melena, hematochezia. Any urinary symptoms. Any skin changes or any new arthritis symptoms. Denies any weight loss. General exam; young female awake alert currently no distress. Requesting Provider: CHERYLE LEONARD Date/Time of Note DATE: 12/03/18 TIME: 09:57 24 HR Interval Summary Free Text/Dictation Patient's condition is improving. Denies any chest pain, abdominal pain, nausea, vomiting, shortness of breath, coughing or wheezing. General exam; young woman, awake alert, currently no distress. Exam/Review of Systems Exam Vitals Vital Signs Date Temp Pulse Resp B/P (MAP) Pulse Ox O2 O2 Flow FiO2 Time Delivery Rate 12/03/18 56 08:02 12/03/18 98.3 22 112/63 96 Room Air 07:24 (79) Intake and Output 12/02/18 12/02/18 12/03/18 1515:00 23:00 07:00 IntakeIntake Total 650 ml 890 ml 400 ml BalanceBalance 650 ml 890 ml 400 ml Exam H EENT exam; supple neck, no JVD. No lymphadenopathy. Midline trachea. No thyromegaly. Patient has good dentition. No neck masses. Chest exam; diminished breath sounds in left upper lobe. Rest of the lung gutierrez are clear. S1-S2 audible, no murmurs. Regular rhythm. Abdomen exam; soft, no organomegaly. Nontender. Bowel sounds audible. Extremity exam; peripheral edema clubbing. Patient has a well-healed right mid dle finger terminal phalangeal amputation. [employer] exam; no focal deficit. Results Result Diagram: 12/03/18 0554 12/03/18 0554 Results 24hrs Laboratory Tests Test 12/03/18 05:54 White Blood Count 11.0 #H Red Blood Count 3.36 L Hemoglobin 8.7 L Hematocrit 29.3 L Mean Corpuscular Volume 87.2 Mean Corpuscular Hemoglobin 25.9 L Mean Corpuscular Hemoglobin Concent 29.7 L Red Cell Distribution Width 17.2 H Platelet Count 745 H Mean Platelet Volume 9.8 Immature Granulocytes % 2.200 H Neutrophils % 88.5 H Lymphocytes % 0.0 L Monocytes % 9.2 Eosinophils % 0.0 Basophils % 0.1 Nucleated Red Blood Cells % 7.9 H Immature Granulocytes # 0.240 H Neutrophils # 9.7 H Lymphocytes # 0.0 L Monocytes # 1.0 H Eosinophils # 0.0 Basophils # 0.0 Nucleated Red Blood Cells # 0.9 H Sodium Level 140 Potassium Level 4.7 Chloride Level 106 Carbon Dioxide Level 28 Anion Gap 6 Blood Urea Nitrogen 23 H Creatinine 0.56 Est Glomerular Filtrat Rate mL/min > 60 Glucose Level 130 Calcium Level 9.2 Medications Medication Current Medications IV Flush (NS 3 ml) 3 ml PER PROTOCOL IV ; Start 11/29/18 at 07:00 Ondansetron HCl (Zofran Inj) 4 mg Q6H PRN IV NAUSEA/VOMITING Last administered on 12/03/18 03:47; Admin Dose 4 MG; Start 11/29/18 at 07:00 Acetaminophen (Tylenol Tab) 650 mg Q6H PRN PO .PAIN 1-3 OR TEMP; Start 11/29/18 at 07:00 Acetaminophen/ Hydrocodone Bitart ([place] (5/325)) 1 tab Q6H PRN PO .MOD PAIN 4- 6 Last administered on 12/02/18 11:08; Admin Dose 1 TAB; Start 11/29/18 at 07:00 Docusate Sodium (Colace) 100 mg Q12H PRN PO .CONSTIPATION; Start 11/29/18 at 07:00 Magnesium Hydroxide (Milk Of Mag) 30 ml DAILY PRN PO .CONSTIPATION; Start 11/29/18 at 07:00 Heparin Sodium (Porcine) (Heparin (5000 Units/1ml)) 5,000 unit Q12 SC Last administered on 12/03/18 08:40; Admin Dose 5,000 UNIT; Start 11/29/18 at 09:00 Lorazepam (Ativan) 0.5 mg Q6H PRN IV ANXIETY; Start 11/29/18 at 07:00 Albuterol/ Ipratropium (Duoneb) 3 ml Q4H RESP THERAPY PRN HHN SHORTNESS OF BREATH; Start 11/29/18 at 07:00 Hydralazine HCl (Apresoline) 10 mg Q6H PRN IV for sys bp > 180; Start 11/29/18 at 07:00 Nitroglycerin (Nitroglycerin (Sl Tab) 0.4 Mg) 1 tab Q5M PRN SL ANGINA Last administered on 11/30/18 10:24; Admin Dose 1 TAB; Start 11/29/18 at 07:00 Amlodipine Besylate (Norvasc) 5 mg BID PO Last administered on 12/03/18 08:25; Admin Dose 5 MG; Start 11/30/18 at 09:00 Azathioprine (Imuran) 100 mg DAILY PO Last administered on 12/03/18 08:22; Admin Dose 100 MG; Start 11/30/18 at 09:00 Cyclobenzaprine HCl (Flexeril) 10 mg TID PO Last administered on 12/03/18 08:23; Admin Dose 10 MG; Start 11/30/18 at 09:00 Nadolol (Corgard) 20 mg BID PO Last administered on 12/03/18 08:26; Admin Dose 20 MG; Start 11/30/18 at 09:00 Tramadol HCl (Ultram) 50 mg Q4 PRN PO PAIN Last administered on 12/03/18 03:13; Admin Dose 50 MG; Start 11/30/18 at 00:00 Calcium/Vitamin D (Oyster Shell/ Vit-D (500/200)) 1 tab DAILY PO Last administered on 12/03/18 08:22; Admin Dose 1 TAB; Start 11/30/18 at 09:00 Sucralfate (Carafate Susp) 1 gm QID PO Last administered on 12/03/18 08:23; Admin Dose 1 GM; Start 11/30/18 at 09:00 Pantoprazole (Protonix Iv) 40 mg BID@06,18 IV Last administered on 12/03/18 06:24; Admin Dose 40 MG; Start 11/30/18 at 06:00 Metoclopramide HCl (Reglan) 10 mg Q6H PRN IV nausae Last administered on 9at 12:09; Admin Dose 10 MG; Start 11/30/18 at 11:00 Colchicine (Colchicine) 0.6 mg BID PO Last administered on 12/03/18 08:23; Admin Dose 0.6 MG; Start 11/30/18 at 12:30 Cefepime HCl 50 ml @ 100 mls/hr Q12 IVPB Last administered on 12/03/18 08:23; Admin Dose 100 MLS/HR; Start 12/01/18 at 15:00 Linezolid 300 ml @ 300 mls/hr Q12 IVPB Last administered on 12/03/18 09:24; Admin Dose 300 MLS/HR; Start 12/01/18 at 21:00 Methylprednisolone Sodium Succinate (Solu-Medrol) 40 mg BID IV Last administere d on 12/03/18 08:23; Admin Dose 40 MG; Start 12/02/18 at 09:00 Hydromorphone HCl (Dilaudid) 1 mg Q4H PRN IV SEVERE PAIN LEVEL 7-10 Last administered on 12/03/18at 03:45; Admin Dose 1 MG; Start 12/02/18 at 12:30 Amylase/Lipase/ Protease (Creon ([id number])) 2 cap WITH MEALS PO Last administered on 12/03/18 08:22; Admin Dose 2 CAP; Start 12/02/18 at 18:00 JUSTICE CARBALLO Dec 03, 2018 09:59
--- NOTE | 2018-12-03 14:55 | PN ---
Date/Time of Note Date/Time of Note DATE: 12/03/18 TIME: 14:52 Assessment/Plan VTE Prophylaxis Risk score (from [facility])>0 risk: 4 SCD applied (from [facility]): No SCD contraindicated: low risk/ambulating Pharmacological prophylaxis: heparin Pharm contraindication: low risk/ambulating Lines/Catheters IV C[facility]ter [facility]from [facility] Saline Lock Urinary Cath still in place: No Assessment/Plan Problems: (1) Pericardial effusion Status: Acute Comment: Cardial effusion is noted but is not causing tamponade. Continue with treatment for the underlying rheumatologic disorder and follow carefully. Initiate cardiology input (2) Acute pancreatitis Status: Acute Comment: Today. I am strongly in agreement with gastroenterology about starting her on pancreatic enzyme replacement to assist Qualifiers: Pancreatitis type: idiopathic Acute pancreatitis complication: no infection or necrosis Qualified Codes: K85.00 - Idiopathic acute pancreatitis without necrosis or infection (3) Rheumatoid arthritis Status: Chronic Comment: Remains on steroids and Imuran. Rheumatology consult appreciated Qualifiers: Rheumatoid arthritis location: unspecified site Rheumatoid factor presence: with rheumatoid factor Qualified Codes: M05.9 - Rheumatoid arthritis with rheumatoid factor, unspecified (4) SLE (systemic lupus erythematosus) Status: Chronic Comment: Noted. Continue with treatment Qualifiers: Systemic lupus erythematosus type: unspecified Systemic lupus erythematosus organ involvement: pericarditis Qualified Codes: M32.12 - Pericarditis in systemic lupus erythematosus (5) Hypertension Status: Chronic Comment: Adequate control Qualifiers: Hypertension type: essential hypertension Qualified Codes: I10 - Essential (primary) hypertension Result Diagram: 12/03/18 0554 12/03/18 0554 Results 24hrs Laboratory Tests Test 12/03/18 05:54 White Blood Count 11.0 #H Red Blood Count 3.36 L Hemoglobin 8.7 L Hematocrit 29.3 L Mean Corpuscular Volume 87.2 Mean Corpuscular Hemoglobin 25.9 L Mean Corpuscular Hemoglobin Concent 29.7 L Red Cell Distribution Width 17.2 H Platelet Count 745 H Mean Platelet Volume 9.8 Immature Granulocytes % 2.200 H Neutrophils % 88.5 H Lymphocytes % 0.0 L Monocytes % 9.2 Eosinophils % 0.0 Basophils % 0.1 Nucleated Red Blood Cells % 7.9 H Immature Granulocytes # 0.240 H Neutrophils # 9.7 H Lymphocytes # 0.0 L Monocytes # 1.0 H Eosinophils # 0.0 Basophils # 0.0 Nucleated Red Blood Cells # 0.9 H Sodium Level 140 Potassium Level 4.7 Chloride Level 106 Carbon Dioxide Level 28 Anion Gap 6 Blood Urea Nitrogen 23 H Creatinine 0.56 Est Glomerular Filtrat Rate mL/min > 60 Glucose Level 130 Calcium Level 9.2 Subjective 24 Hr Interval Summary Free Text/Dictation Patient reports she still has some abdominal pain especially immediately postprandially but otherwise doing relatively well Constitutional: no complaints (No fevers chills or sweats) Respiratory: no complaints Cardiovascular: no complaints Gastrointestinal: pain (Especially postprandial) Genitourinary: no complaints Neurologic: no complaints Exam/Review of Systems Exam Vitals Vital Signs Date Temp Pulse Resp B/P (MAP) Pulse Ox O2 O2 Flow FiO2 Time Delivery Rate 12/03/18 98.0 81 22 120/70 96 Room Air 12:10 (87) Intake and Output 12/02/18 12/02/18 12/03/18 1515:00 23:00 07:00 IntakeIntake Total 650 ml 890 ml 400 ml BalanceBalance 650 ml 890 ml 400 ml Constitutional: alert, oriented Respiratory: clear to auscultation, normal air movement Cardiovascular: regular rate and rhythm, nl pulses Gastrointestinal: soft, nl liver, spleen, non-tender Results Results 24hrs Laboratory Tests Test 12/03/18 05:54 White Blood Count 11.0 #H Red Blood Count 3.36 L Hemoglobin 8.7 L Hematocrit 29.3 L Mean Corpuscular Volume 87.2 Mean Corpuscular Hemoglobin 25.9 L Mean Corpuscular Hemoglobin Concent 29.7 L Red Cell Distribution Width 17.2 H Platelet Count 745 H Mean Platelet Volume 9.8 Immature Granulocytes % 2.200 H Neutrophils % 88.5 H Lymphocytes % 0.0 L Monocytes % 9.2 Eosinophils % 0.0 Basophils % 0.1 Nucleated Red Blood Cells % 7.9 H Immature Granulocytes # 0.240 H Neutrophils # 9.7 H Lymphocytes # 0.0 L Monocytes # 1.0 H Eosinophils # 0.0 Basophils # 0.0 Nucleated Red Blood Cells # 0.9 H Sodium Level 140 Potassium Level 4.7 Chloride Level 106 Carbon Dioxide Level 28 Anion Gap 6 Blood Urea Nitrogen 23 H Creatinine 0.56 Est Glomerular Filtrat Rate mL/min > 60 Glucose Level 130 Calcium Level 9.2 Medications Medication Current Medications IV Flush (NS 3 ml) 3 ml PER PROTOCOL IV ; Start 11/29/18 at 07:00 Ondansetron HCl (Zofran Inj) 4 mg Q6H PRN IV NAUSEA/VOMITING Last administered on 12/03/18at 03:47; Admin Dose 4 MG; Start 11/29/18 at 07:00 Acetaminophen (Tylenol Tab) 650 mg Q6H PRN PO .PAIN 1-3 OR TEMP; Start 11/29/18 at 07:00 Acetaminophen/ Hydrocodone Bitart ([place] (5/325)) 1 tab Q6H PRN PO .MOD PAIN 4- 6 Last administered on 12/02/18 11:08; Admin Dose 1 TAB; Start 11/29/18 at 07:00 Docusate Sodium (Colace) 100 mg Q12H PRN PO .CONSTIPATION; Start 11/29/18 at 07:00 Magnesium Hydroxide (Milk Of Mag) 30 ml DAILY PRN PO .CONSTIPATION; Start 11/29/18 at 07:00 Heparin Sodium (Porcine) (Heparin (5000 Units/1ml)) 5,000 unit Q12 SC Last administered on 12/03/18at 08:40; Admin Dose 5,000 UNIT; Start 11/29/18 at 09:00 Lorazepam (Ativan) 0.5 mg Q6H PRN IV ANXIETY; Start 11/29/18 at 07:00 Albuterol/ Ipratropium (Duoneb) 3 ml Q4H RESP THERAPY PRN HHN SHORTNESS OF BREATH; Start 11/29/18 at 07:00 Hydralazine HCl (Apresoline) 10 mg Q6H PRN IV for sys bp > 180; Start 11/29/18 at 07:00 Nitroglycerin (Nitroglycerin (Sl Tab) 0.4 Mg) 1 tab Q5M PRN SL ANGINA Last administered on 11/30/18 10:24; Admin Dose 1 TAB; Start 11/29/18 at 07:00 Amlodipine Besylate (Norvasc) 5 mg BID PO Last administered on 12/03/18 08:25; Admin Dose 5 MG; Start 11/30/18 at 09:00 Azathioprine (Imuran) 100 mg DAILY PO Last administered on 12/03/18 08:22; Admin Dose 100 MG; Start 11/30/18 at 09:00 Cyclobenzaprine HCl (Flexeril) 10 mg TID PO Last administered on 12/03/18 13:05; Admin Dose 10 MG; Start 11/30/18 at 09:00 Nadolol (Corgard) 20 mg BID PO Last administered on 12/03/18 08:26; Admin Dose 20 MG; Start 11/30/18 at 09:00 Tramadol HCl (Ultram) 50 mg Q4 PRN PO PAIN Last administered on 12/03/18 03:13; Admin Dose 50 MG; Start 11/30/18 at 00:00 Calcium/Vitamin D (Oyster Shell/ Vit-D (500/200)) 1 tab DAILY PO Last administered on 12/03/18 08:22; Admin Dose 1 TAB; Start 11/30/18 at 09:00 Sucralfate (Carafate Susp) 1 gm QID PO Last administered on 12/03/18 13:05; Admin Dose 1 GM; Start 11/30/18 at 09:00 Pantoprazole (Protonix Iv) 40 mg BID@06,18 IV Last administered on 12/03/18 06:24; Admin Dose 40 MG; Start 11/30/18 at 06:00 Metoclopramide HCl (Reglan) 10 mg Q6H PRN IV nausae Last administered on 11/30/18 12:09; Admin Dose 10 MG; Start 11/30/18 at 11:00 Colchicine (Colchicine) 0.6 mg BID PO Last administered on 12/03/18 08:23; Admin Dose 0.6 MG; Start 11/30/18 at 12:30 Cefepime HCl 50 ml @ 100 mls/hr Q12 IVPB Last administered on 12/03/18 08:23; Admin Dose 100 MLS/HR; Start 12/01/18 at 15:00 Linezolid 300 ml @ 300 mls/hr Q12 IVPB Last administered on 12/03/18 09:24; Admin Dose 300 MLS/HR; Start 12/01/18 at 21:00 Methylprednisolone Sodium Succinate (Solu-Medrol) 40 mg BID IV Last administered on 12/03/18 08:23; Admin Dose 40 MG; Start 12/02/18 at 09:00 Hydromorphone HCl (Dilaudid) 1 mg Q4H PRN IV SEVERE PAIN LEVEL 7-10 Last administered on 12/03/18at 13:08; Admin Dose 1 MG; Start 12/02/18 at 12:30 Amylase/Lipase/ Protease (Creon ([id number])) 2 cap WITH MEALS PO Last administered on 12/03/18 13:05; Admin Dose 2 CAP; Start 12/02/18 at 18:00 TIMO PITT MD Dec 03, 2018 14:55
--- NOTE | 2018-12-03 15:34 | RADRPT ---
Echocardiogram Report Patient Name: HAYDE MURILLOPatient ID: [id number] : 1985 (33y 9m)Study Date: 12/03/2018 8:53:31 AM Gender: FAccession #: [id number] Tech: MAC Location: [facility] Ref.Physician: MEET GAYLE Height(Cm): BSA: Weight(Kg): Quality: AdequateOrder Physician: MEET GAYLE Account #: Procedures: Echocardiographic Report: Transthoracic echocardiogram examination. Indications: Pericardial Effusion. Findings: Right Atrium: Normal with RA size <40mm; RA wall is no longer collapsing. Tricuspid Valve: The estimated Peak RVSP is 33 mmHg. There is mild tricuspid regurgitation. Pericardium: Trivial effusion, effusion now appears smaller. PE size is now less than 1 cm in parasternals and is no longer visualized well in both apicals and subcostal images. No echocardiographic evidence to suggest pericardial tamponade. IVC: Normal inferior vena cava appearance and respiratory collapse with sniff. Conclusions: Trivial effusion, effusion now appears smaller. PE size is now less than 1 cm in parasternals and is no longer visualized well in both apicals and subcostal images. No echocardiographic evidence to suggest pericardial tamponade. Electronically Signed By: Usman Uriarte 2018-12-03 15:33:34 PDT
--- NOTE | 2018-12-03 16:06 | PN ---
Date/Time of Note Date/Time of Note DATE: 12/03/18 TIME: 15:51 Assessment/Plan VTE Prophylaxis Risk score (from [facility])>0 risk: 4 SCD applied (from [facility]): No SCD contraindicated: low risk/ambulating Pharmacological prophylaxis: heparin Lines/Catheters IV Catheter Type (from [facility]): Saline Lock Urinary Cath still in place: No Assessment/Plan Assessment/Plan Assessment: Epigastric pain-with radiation to left upper quadrant and left flank/back -CT is concerning for pancreatitis, however lipase and amylase WNL Left pleural effusion Diarrhea Pericardial effusion, moderate -Echocardiogram - Small to borderline moderate circumferential pericardial effusion without evidence of tamponade. EF 55% Normocytic Anemia Thrombocytosis Recent History Hematemesis EGD 11/15/2018 Extensive ulceration of the distal esophagus, rule out opportunistic infection, biopsies obtained. Grade II/IV esophageal varices. No stigmata of recent bleeding. No therapeutic intervention required Mild gastritis versus portal gastropathy, Otherwise normal EGD Stomach biopsy negative for H. pylori infection, no evidence of intestinal metaplasia, dysplasia, or malignancy Esophageal ulcer biopsy mucosa showing moderate chronic inflammation no squamous mucosa is present. No goblet cells are identified, no H. pylori is identified, no evidence of dysplasia or malignancy SLE/Rheumatoid arthritis/Raynaud's syndrome -On prednisone. History of Splenectomy Depression HTN Hx of EGD/colonoscopy 09/26/18 Colonoscopy 09/26/2018colitis more significant in the area of the rectum moderate size internal hemorrhoidsbiopsy negative for evidence of colitis EGD grade II/IV esophageal varices, severe gastritisbiopsies negative for H. pylori Liver cirrhosis- with hx of EV -Hepatitis serology negative -ASMA,AMA- negative Status post finger amputation secondary to Raynaud's syndrome Leukocytosis currently on steroid therapy Plan: Advance diet to low fat diet. Continue Creon Stool studies Currently no plan to re-scope given recent EGD- will continue PPI/Carafate Supportive care Patient seen in collaboration with Subjective: Course reviewed with nursing staff Patient interviewed and examined All labs, imaging and other results reviewed Patient is complaining of epigastric pain radiating to the back. She reports mild improvement. She is tolerating a clear liquid diet. She reports loose watery stools with oral intake. Continue observation. Exam PHYSICAL EXAMINATION: GENERAL: Chronically ill appearing young woman, alert & oriented x 3, edema/swelling from chronic steroid use SKIN: No lesions. HEAD: Normocephalic, atraumatic, no tenderness. EYES: Pupils equal reactive to light, no discharge. EARS/NOSE AND THROAT: Ears normal, nose normal. NECK: Supple, no masses, thyroid normal. CHEST: Inspection within normal limits. CARDIOVASCULAR: Heart: Regular rate and rhythm RESPIRATORY: Lungs clear to auscultation. GASTROINTESTINAL AND LIVER: Abdomen: obese, soft, epigastric tenderness, non- distended, no hernias, no masses, normoactive bowel sounds. Rectal: Deferred. EXTREMITIES: No cyanosis, clubbing or edema. Right index finger amputated 1 phalanx Result Diagram: 12/03/1854 12/03/1854 Results 24hrs Laboratory Tests Test 12/03/18 05:54 White Blood Count 11.0 #H Red Blood Count 3.36 L Hemoglobin 8.7 L Hematocrit 29.3 L Mean Corpuscular Volume 87.2 Mean Corpuscular Hemoglobin 25.9 L Mean Corpuscular Hemoglobin Concent 29.7 L Red Cell Distribution Width 17.2 H Platelet Count 745 H Mean Platelet Volume 9.8 Immature Granulocytes % 2.200 H Neutrophils % 88.5 H Lymphocytes % 0.0 L Monocytes % 9.2 Eosinophils % 0.0 Basophils % 0.1 Nucleated Red Blood Cells % 7.9 H Immature Granulocytes # 0.240 H Neutrophils # 9.7 H Lymphocytes # 0.0 L Monocytes # 1.0 H Eosinophils # 0.0 Basophils # 0.0 Nucleated Red Blood Cells # 0.9 H Sodium Level 140 Potassium Level 4.7 Chloride Level 106 Carbon Dioxide Level 28 Anion Gap 6 Blood Urea Nitrogen 23 H Creatinine 0.56 Est Glomerular Filtrat Rate mL/min > 60 Glucose Level 130 Calcium Level 9.2 CC: PAUL ANTHONY MD ; Exam/Review of Systems Exam Vitals Vital Signs Date Temp Pulse Resp B/P (MAP) Pulse Ox O2 O2 Flow FiO2 Time Delivery Rate 12/03/18 98.0 55 22 117/79 92 Room Air 15:32 (92) Intake and Output 12/02/18 12/02/18 12/03/18 1515:00 23:00 07:00 IntakeIntake Total 650 ml 890 ml 400 ml BalanceBalance 650 ml 890 ml 400 ml Results Results 24hrs Laboratory Tests Test 12/03/18 05:54 White Blood Count 11.0 #H Red Blood Count 3.36 L Hemoglobin 8.7 L Hematocrit 29.3 L Mean Corpuscular Volume 87.2 Mean Corpuscular Hemoglobin 25.9 L Mean Corpuscular Hemoglobin Concent 29.7 L Red Cell Distribution Width 17.2 H Platelet Count 745 H Mean Platelet Volume 9.8 Immature Granulocytes % 2.200 H Neutrophils % 88.5 H Lymphocytes % 0.0 L Monocytes % 9.2 Eosinophils % 0.0 Basophils % 0.1 Nucleated Red Blood Cells % 7.9 H Immature Granulocytes # 0.240 H Neutrophils # 9.7 H Lymphocytes # 0.0 L Monocytes # 1.0 H Eosinophils # 0.0 Basophils # 0.0 Nucleated Red Blood Cells # 0.9 H Sodium Level 140 Potassium Level 4.7 Chloride Level 106 Carbon Dioxide Level 28 Anion Gap 6 Blood Urea Nitrogen 23 H Creatinine 0.56 Est Glomerular Filtrat Rate mL/min > 60 Glucose Level 130 Calcium Level 9.2 Medications Medication Current Medications IV Flush (NS 3 ml) 3 ml PER PROTOCOL IV ; Start 11/29/18 at 07:00 Ondansetron HCl (Zofran Inj) 4 mg Q6H PRN IV NAUSEA/VOMITING Last administered on 12/03/18at 03:47; Admin Dose 4 MG; Start 11/29/18 at 07:00 Acetaminophen (Tylenol Tab) 650 mg Q6H PRN PO .PAIN 1-3 OR TEMP; Start 11/29/18 at 07:00 Acetaminophen/ Hydrocodone Bitart ([place] (5/325)) 1 tab Q6H PRN PO .MOD PAIN 4- 6 Last administered on 12/02/18at 11:08; Admin Dose 1 TAB; Start 11/29/18 at 07:00 Docusate Sodium (Colace) 100 mg Q12H PRN PO .CONSTIPATION; Start 11/29/18 at 07:00 Magnesium Hydroxide (Milk Of Mag) 30 ml DAILY PRN PO .CONSTIPATION; Start 11/29 at 07:00 Heparin Sodium (Porcine) (Heparin (5000 Units/1ml)) 5,000 unit Q12 SC Last administered on 12/03/18at 08:40; Admin Dose 5,000 UNIT; Start 11/29/18 at 09:00 Lorazepam (Ativan) 0.5 mg Q6H PRN IV ANXIETY; Start 11/29/18 at 07:00 Albuterol/ Ipratropium (Duoneb) 3 ml Q4H RESP THERAPY PRN HHN SHORTNESS OF BREATH; Start 11/29/18 at 07:00 Hydralazine HCl (Apresoline) 10 mg Q6H PRN IV for sys bp > 180; Start 11/29/18 at 07:00 Nitroglycerin (Nitroglycerin (Sl Tab) 0.4 Mg) 1 tab Q5M PRN SL ANGINA Last administered on 11/30/18 10:24; Admin Dose 1 TAB; Start 11/29/18 at 07:00 Amlodipine Besylate (Norvasc) 5 mg BID PO Last administered on 12/03/18 08:25; Admin Dose 5 MG; Start 11/30/18 at 09:00 Azathioprine (Imuran) 100 mg DAILY PO Last administered on 12/03/18 08:22; Admin Dose 100 MG; Start 11/30/18 at 09:00 Cyclobenzaprine HCl (Flexeril) 10 mg TID PO Last administered on 12/03/18 13:05 ; Admin Dose 10 MG; Start 11/30/18 at 09:00 Nadolol (Corgard) 20 mg BID PO Last administered on 12/03/18 08:26; Admin Dose 20 MG; Start 11/30/18 at 09:00 Tramadol HCl (Ultram) 50 mg Q4 PRN PO PAIN Last administered on 12/03/18 03:13; Admin Dose 50 MG; Start 11/30/18 at 00:00 Calcium/Vitamin D (Oyster Shell/ Vit-D (500/200)) 1 tab DAILY PO Last administered on 12/03/18 08:22; Admin Dose 1 TAB; Start 11/30/18 at 09:00 Sucralfate (Carafate Susp) 1 gm QID PO Last administered on 12/03/18 13:05; Admin Dose 1 GM; Start 11/30/18 at 09:00 Pantoprazole (Protonix Iv) 40 mg BID@18 IV Last administered on 12/03/18 06:24; Admin Dose 40 MG; Start 11/30/18 at 06:00 Metoclopramide HCl (Reglan) 10 mg Q6H PRN IV nausae Last administered on 11/30/18 12:09; Admin Dose 10 MG; Start 11/30/18 at 11:00 Colchicine (Colchicine) 0.6 mg BID PO Last administered on 12/03/18 08:23; Admin Dose 0.6 MG; Start 11/30/18 at 12:30 Cefepime HCl 50 ml @ 100 mls/hr Q12 IVPB Last administered on 12/03/18 08:23; Admin Dose 100 MLS/HR; Start 12/01/18 at 15:00 Linezolid 300 ml @ 300 mls/hr Q12 IVPB Last administered on 12/03/18 09:24; Admin Dose 300 MLS/HR; Start 12/01/18 at 21:00 Methylprednisolone Sodium Succinate (Solu-Medrol) 40 mg BID IV Last administered on 12/03/18 08:23; Admin Dose 40 MG; Start 12/02/18 at 09:00 Hydromorphone HCl (Dilaudid) 1 mg Q4H PRN IV SEVERE PAIN LEVEL 7-10 Last administered on 12/03/18 13:08; Admin Dose 1 MG; Start 12/02/18 at 12:30 Amylase/Lipase/ Protease (Creon ([id number])) 2 cap WITH MEALS PO Last administered on 12/03/18 13:05; Admin Dose 2 CAP; Start 12/02/18 at 18:00 KT IBANEZ NP Dec 03, 2018 16:01
--- NOTE | 2018-12-03 16:40 | CONS ---
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 No tamponade physiology. Pleuritic chest pain. 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 No NSAIDs with ulcers -steroids per rheum/pulm Consultation Date/Type/Reason Admit Date/Time Nov 29, 2018 at 06:15 Initial Consult Date 12/01/18 Type of Consult Cardiology Date/Time of Note DATE: 12/03/18 TIME: 16:38 24 HR Interval Summary Free Text/Dictation No acute events. Repeat echocardiogram reviewed. Detailed Summary Additional Comments 14 point review of systems without changes. Exam/Review of Systems Vital Signs Vitals Vital Signs Date Temp Pulse Resp B/P (MAP) Pulse Ox O2 O2 Flow FiO2 Time Delivery Rate 12/03/18 98.0 55 22 117/79 92 Room Air 15:32 (92) Intake and Output 12/02/18 12/02/18 12/03/18 1515:00 23:00 07:00 IntakeIntake Total 650 ml 890 ml 400 ml BalanceBalance 650 ml 890 ml 400 ml Exam Exam Constitutional: alert, oriented Psych: no complaints, nl mood/affect Head: normocephalic, atraumatic Neck: supple; No jvd Respiratory: diminished breath sounds; No clear to auscultation Cardiovascular: regular rate and rhythm, rub; No edema Gastrointestinal: soft; No non-tender (mild), No distended Neurological: nl mental status, nl speech Labs Result Diagram: 12/03/18 0554 12/03/18 0554 Results 24hrs Laboratory Tests Test 12/03/18 05:54 White Blood Count 11.0 #H Red Blood Count 3.36 L Hemoglobin 8.7 L Hematocrit 29.3 L Mean Corpuscular Volume 87.2 Mean Corpuscular Hemoglobin 25.9 L Mean Corpuscular Hemoglobin Concent 29.7 L Red Cell Distribution Width 17.2 H Platelet Count 745 H Mean Platelet Volume 9.8 Immature Granulocytes % 2.200 H Neutrophils % 88.5 H Lymphocytes % 0.0 L Monocytes % 9.2 Eosinophils % 0.0 Basophils % 0.1 Nucleated Red Blood Cells % 7.9 H Immature Granulocytes # 0.240 H Neutrophils # 9.7 H Lymphocytes # 0.0 L Monocytes # 1.0 H Eosinophils # 0.0 Basophils # 0.0 Nucleated Red Blood Cells # 0.9 H Sodium Level 140 Potassium Level 4.7 Chloride Level 106 Carbon Dioxide Level 28 Anion Gap 6 Blood Urea Nitrogen 23 H Creatinine 0.56 Est Glomerular Filtrat Rate mL/min > 60 Glucose Level 130 Calcium Level 9.2 Medications Medications Current Medications IV Flush (NS 3 ml) 3 ml PER PROTOCOL IV ; Start 11/29/18 at 07:00 Ondansetron HCl (Zofran Inj) 4 mg Q6H PRN IV NAUSEA/VOMITING Last administered on 12/03/18at 03:47; Admin Dose 4 MG; Start 11/29/18 at 07:00 Acetaminophen (Tylenol Tab) 650 mg Q6H PRN PO .PAIN 1-3 OR TEMP; Start 11/29/18 at 07:00 Acetaminophen/ Hydrocodone Bitart ([place] (5/325)) 1 tab Q6H PRN PO .MOD PAIN 4- 6 Last administered on 12/02/18at 11:08; Admin Dose 1 TAB; Start 11/29/18 at 07:00 Docusate Sodium (Colace) 100 mg Q12H PRN PO .CONSTIPATION; Start 11/29/18 at 07:00 Magnesium Hydroxide (Milk Of Mag) 30 ml DAILY PRN PO .CONSTIPATION; Start 11/29/18 at 07:00 Heparin Sodium (Porcine) (Heparin (5000 Units/1ml)) 5,000 unit Q12 SC Last administered on 12/03/18at 08:40; Admin Dose 5,000 UNIT; Start 11/29/18 at 09:00 Lorazepam (Ativan) 0.5 mg Q6H PRN IV ANXIETY; Start 11/29/18 at 07:00 Albuterol/ Ipratropium (Duoneb) 3 ml Q4H RESP THERAPY PRN HHN SHORTNESS OF BREATH; Start 11/29/18 at 07:00 Hydralazine HCl (Apresoline) 10 mg Q6H PRN IV for sys bp > 180; Start 11/29/18 at 07:00 Nitroglycerin (Nitroglycerin (Sl Tab) 0.4 Mg) 1 tab Q5M PRN SL ANGINA Last administered on 11/30/18 10:24; Admin Dose 1 TAB; Start 11/29/18 at 07:00 Amlodipine Besylate (Norvasc) 5 mg BID PO Last administered on 12/03/18 08:25; Admin Dose 5 MG; Start 11/30/18 at 09:00 Azathioprine (Imuran) 100 mg DAILY PO Last administered on 12/03/18 08:22; Admin Dose 100 MG; Start 11/30/18 at 09:00 Cyclobenzaprine HCl (Flexeril) 10 mg TID PO Last administered on 12/03/18 13:05; Admin Dose 10 MG; Start 11/30/18 at 09:00 Nadolol (Corgard) 20 mg BID PO Last administered on 12/03/18 08:26; Admin Dose 20 MG; Start 11/30/18 at 09:00 Tramadol HCl (Ultram) 50 mg Q4 PRN PO PAIN Last administered on 12/03/18 03:13; Admin Dose 50 MG; Start 11/30/18 at 00:00 Calcium/Vitamin D (Oyster Shell/ Vit-D (500/200)) 1 tab DAILY PO Last administered on 12/03/18 08:22; Admin Dose 1 TAB; Start 11/30/18 at 09:00 Sucralfate (Carafate Susp) 1 gm QID PO Last administered on 12/03/18 13:05; Admin Dose 1 GM; Start 11/30/18 at 09:00 Pantoprazole (Protonix Iv) 40 mg BID@06,18 IV Last administered on 12/03/18 06:24; Admin Dose 40 MG; Start 11/30/18 at 06:00 Metoclopramide HCl (Reglan) 10 mg Q6H PRN IV nausae Last administered on 11/30/18 12:09; Admin Dose 10 MG; Start 11/30/18 at 11:00 Colchicine (Colchicine) 0.6 mg BID PO Last administered on 12/03/18 08:23; Admin Dose 0.6 MG; Start 11/30/18 at 12:30 Cefepime HCl 50 ml @ 100 mls/hr Q12 IVPB Last administered on 12/03/18 08:23; Admin Dose 100 MLS/HR; Start 12/01/18 at 15:00 Linezolid 300 ml @ 300 mls/hr Q12 IVPB Last administered on 12/03/18 09:24; Admin Dose 300 MLS/HR; Start 12/01/18 at 21:00 Methylprednisolone Sodium Succinate (Solu-Medrol) 40 mg BID IV Last administered on 12/03/18 08:23; Admin Dose 40 MG; Start 12/02/18 at 09:00 Hydromorphone HCl (Dilaudid) 1 mg Q4H PRN IV SEVERE PAIN LEVEL 7-10 Last administered on 12/03/18 13:08; Admin Dose 1 MG; Start 12/02/18 at 12:30 Amylase/Lipase/ Protease (Creon ([id number])) 2 cap WITH MEALS PO Last administered on 12/03/18 13:05; Admin Dose 2 CAP; Start 12/02/18 at 18:00 NU SERRANO MD Dec 03, 2018 16:40
--- NOTE | 2018-12-03 20:25 | CONS ---
Consult Date/Type/Reason Admit Date/Time Nov 29, 2018 at 06:15 Initial Consult Date 12/01/18 Type of Consultation: Rheumatology Date/Time of Note DATE: 12/03/18 TIME: 20:17 Subjective Still with some abd. pain, particularly after eating. No new other complaints. Objective Vitals Vital Signs Date Temp Pulse Resp B/P (MAP) Pulse Ox O2 O2 Flow FiO2 Time Delivery Rate 12/03/18 97.5 51 17 136/76 96 19:55 (96) 12/03/18 Room Air 15:32 Intake and Output 12/02/18 12/02/18 12/03/18 1515:00 23:00 07:00 IntakeIntake Total 650 ml 890 ml 400 ml BalanceBalance 650 ml 890 ml 400 ml Exam GENERAL: Alert and oriented in no acute distress, SKIN: No rashes or new lesions. HEENT: No acute oral or ocular lesions. NECK: Supple. No lymphadenopathy. CARDIOVASCULAR: Regular rate and rhythm. LUNGS: Clear to auscultation bilaterally. No wheezing or rhonchi. ABDOMEN: Soft, mild epigastric tenderness. No rebound tenderness. Bowel sounds are present. EXTREMITIES: No Edema. Mild cyanosis fingers. MUSCULOSKELETAL: No synovitis NEUROL: Grossly intact Results/Medications Result Diagram: 12/03/18 0554 12/03/18 0554 Results 24 hrs Laboratory Tests Test 12/03/18 05:54 White Blood Count 11.0 #H Red Blood Count 3.36 L Hemoglobin 8.7 L Hematocrit 29.3 L Mean Corpuscular Volume 87.2 Mean Corpuscular Hemoglobin 25.9 L Mean Corpuscular Hemoglobin Concent 29.7 L Red Cell Distribution Width 17.2 H Platelet Count 745 H Mean Platelet Volume 9.8 Immature Granulocytes % 2.200 H Neutrophils % 88.5 H Lymphocytes % 0.0 L Monocytes % 9.2 Eosinophils % 0.0 Basophils % 0.1 Nucleated Red Blood Cells % 7.9 H Immature Granulocytes # 0.240 H Neutrophils # 9.7 H Lymphocytes # 0.0 L Monocytes # 1.0 H Eosinophils # 0.0 Basophils # 0.0 Nucleated Red Blood Cells # 0.9 H Sodium Level 140 Potassium Level 4.7 Chloride Level 106 Carbon Dioxide Level 28 Anion Gap 6 Blood Urea Nitrogen 23 H Creatinine 0.56 Est Glomerular Filtrat Rate mL/min > 60 Glucose Level 130 Calcium Level 9.2 Home Meds Active Scripts Cyclobenzaprine Hcl* (Cyclobenzaprine Hcl*) 10 Mg Tablet, 10 MG PO TID, #15 TAB Prov:MICKY CHAN MD 11/26/18 Tramadol HCl (Tramadol HCl) 50 Mg Tablet, 50 MG PO Q4 PRN for PAIN, #20 TAB Prov:MICKY CHAN MD 11/26/18 Ondansetron Hcl* (Zofran*) 8 Mg Tablet, 8 MG PO Q6H PRN for NAUSEA AND OR VOMITING, #20 TAB Prov:JENNY RAWLS MD 11/20/18 Levofloxacin* (Levaquin*) 750 Mg Tablet, 750 MG PO DAILY for 7 Days, TAB Prov:JENNY RAWLS MD 11/20/18 Sucralfate* (Carafate*) 1 Gm/10 Ml Susp, 1 GM PO QID for 30 Days, #1 EA 2 Refills Prov:LIUDMILA DUMONT MD 11/17/18 Metoclopramide Hcl* (Metoclopramide Hcl*) 10 Mg Tablet, 10 MG PO QID for 10 Days, #40 TAB Prov:LIUDMILA DUMONT MD 11/17/18 Acetaminophen* (Tylenol*) 325 Mg Tablet, 650 MG PO Q6H PRN for .PAIN 1-3 OR TEMP for 1 Day, TAB Prov:LIUDMILA DUMONT MD 11/17/18 Nadolol (Corgard) 40 Mg Tablet, 20 MG PO BID for 15 Days, #30 TAB Prov:LIUDMILA DUMONT MD 11/17/18 Pantoprazole* (Pantoprazole*) 40 Mg Tablet.dr, 40 MG PO BID@06,18 for 30 Days, #60 TAB 1 Refill Prov:LIUDMILA DUMONT MD 11/17/18 Reported Medications Amlodipine Besylate* (Amlodipine Besylate*) 10 Mg Tablet, 5 MG PO BID, #30 TAB 11/29/18 Calcium Carbonate/Vitamin D3 (Calcium 500 mg Chewable Tablet) 1 Each Tab.chew, 1 EACH PO DAILY, TAB.CHEW 11/14/18 Prednisone* (Prednisone*) 5 Mg Tab, 5 MG PO DAILY, TAB 11/14/18 Azathioprine* (Imuran*) 50 Mg Tab, 100 MG PO DAILY, TAB 11/14/18 Ergocalciferol (Vitamin D2) (VITAMIN D2) 50,000 Unit Capsule, 00805 UNIT PO QM ONDAY 09/22/18 Medications Current Medications IV Flush (NS 3 ml) 3 ml PER PROTOCOL IV ; Start 11/29/18 at 07:00 Ondansetron HCl (Zofran Inj) 4 mg Q6H PRN IV NAUSEA/VOMITING Last administered on 12/03/18at 03:47; Admin Dose 4 MG; Start 11/29/18 at 07:00 Acetaminophen (Tylenol Tab) 650 mg Q6H PRN PO .PAIN 1-3 OR TEMP; Start 11/29/18 at 07:00 Acetaminophen/ Hydrocodone Bitart ([place] (5/325)) 1 tab Q6H PRN PO .MOD PAIN 4- 6 Last administered on 12/02/18at 11:08; Admin Dose 1 TAB; Start 11/29/18 at 07:00 Docusate Sodium (Colace) 100 mg Q12H PRN PO .CONSTIPATION; Start 11/29/18 at 07:00 Magnesium Hydroxide (Milk Of Mag) 30 ml DAILY PRN PO .CONSTIPATION; Start 11/29/18 at 07:00 Heparin Sodium (Porcine) (Heparin (5000 Units/1ml)) 5,000 unit Q12 SC Last administered on 12/03/18at 08:40; Admin Dose 5,000 UNIT; Start 11/29/18 at 09:00 Lorazepam (Ativan) 0.5 mg Q6H PRN IV ANXIETY; Start 11/29/18 at 07:00 Albuterol/ Ipratropium (Duoneb) 3 ml Q4H RESP THERAPY PRN HHN SHORTNESS OF BREATH; Start 11/29/18 at 07:00 Hydralazine HCl (Apresoline) 10 mg Q6H PRN IV for sys bp > 180; Start 11/29/18 at 07:00 Nitroglycerin (Nitroglycerin (Sl Tab) 0.4 Mg) 1 tab Q5M PRN SL ANGINA Last administered on 11/30/18at 10:24; Admin Dose 1 TAB; Start 11/29/18 at 07:00 Amlodipine Besylate (Norvasc) 5 mg BID PO Last administered on 6/8/19at 08:25; Admin Dose 5 MG; Start 11/30/18 at 09:00 Azathioprine (Imuran) 100 mg DAILY PO Last administered on 12/03/18 08:22; Admin Dose 100 MG; Start 11/30/18 at 09:00 Cyclobenzaprine HCl (Flexeril) 10 mg TID PO Last administered on 12/03/18 13:05; Admin Dose 10 MG; Start 11/30/18 at 09:00 Nadolol (Corgard) 20 mg BID PO Last administered on 12/03/18 08:26; Admin Dose 20 MG; Start 11/30/18 at 09:00 Tramadol HCl (Ultram) 50 mg Q4 PRN PO PAIN Last administered on 12/03/18 03:13; Admin Dose 50 MG; Start 11/30/18 at 00:00 Calcium/Vitamin D (Oyster Shell/ Vit-D (500/200)) 1 tab DAILY PO Last administered on 12/03/18 08:22; Admin Dose 1 TAB; Start 11/30/18 at 09:00 Sucralfate (Carafate Susp) 1 gm QID PO Last administered on 12/03/18 17:44; Admin Dose 1 GM; Start 11/30/18 at 09:00 Pantoprazole (Protonix Iv) 40 mg BID@06,18 IV Last administered on 12/03/18 17:45; Admin Dose 40 MG; Start 11/30/18 at 06:00 Metoclopramide HCl (Reglan) 10 mg Q6H PRN IV nausae Last administered on 11/30/18 12:09; Admin Dose 10 MG; Start 11/30/18 at 11:00 Colchicine (Colchicine) 0.6 mg BID PO Last administered on 12/03/18 08:23; Admin Dose 0.6 MG; Start 11/30/18 at 12:30 Cefepime HCl 50 ml @ 100 mls/hr Q12 IVPB Last administered on 12/03/18 08:23; Admin Dose 100 MLS/HR; Start 12/01/18 at 15:00 Linezolid 300 ml @ 300 mls/hr Q12 IVPB Last administered on 12/03/18 09:24; Admin Dose 300 MLS/HR; Start 12/01/18 at 21:00 Methylprednisolone Sodium Succinate (Solu-Medrol) 40 mg BID IV Last administered on 12/03/18 08:23; Admin Dose 40 MG; Start 12/02/18 at 09:00 Hydromorphone HCl (Dilaudid) 1 mg Q4H PRN IV SEVERE PAIN LEVEL 7-10 Last administered on 12/03/18 13:08; Admin Dose 1 MG; Start 12/02/18 at 12:30 Amylase/Lipase/ Protease (Creon ([id number])) 2 cap WITH MEALS PO Last administered on 12/03/18at 17:44; Admin Dose 2 CAP; Start 12/02/18 at 18:00 Assessment/Plan Assessment/Plan (Daily) ASSESSMENT AND PLAN 1. Probable pneumonia Improving. 2.. Lupus flare possibly. Agree with decreasing steroids as clinically improving. Various lab results pending 3.. 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 Repeat an echo per cardiology. Continue the colchicine 0.6 b.i.d. 4.. Pancreatitis. The patient seems to be improving. 5.. Pleural effusion. Appears to be more consistent with infection rather than Lupus flare, per Pulmonary. 6. Cirrhosis with esophageal varices. LFTs are within normal limits. We will just continue to follow. 7. Raynaud's syndrome, status post finger amputation. Raynaud's precautions. SAHRA GOYAL MD Dec 03, 2018 20:25
[2018-12-04] VITALS (12 sets, daily range): BP systolic 104–155; BP diastolic 56–90; PULSE 47–75; RESP 17–22
[2018-12-04] MEDS: ONDANSETRON 4 MG INJ IV PRN ×3 (00:22→20:42)
[2018-12-04] MEDS: PANTOPRAZOLE 40 MG INJ IV SCH ×2 (05:56→17:05)
[2018-12-04] MEDS: AZATHIOPRINE 50 MG TAB PO SCH (08:31)
[2018-12-04] MEDS: CREON (24K-76K-120K) 1 CAP PO SCH ×3 (08:31→17:05)
[2018-12-04] MEDS: METHYLPREDNISOLONE 40 MG INJ IV SCH ×2 (08:31→20:45)
[2018-12-04] MEDS: AMLODIPINE 10 MG TAB PO SCH ×2 (08:32→20:45)
[2018-12-04] MEDS: CALCIUM/VITAMIN D (500/200) TAB PO SCH (08:32)
[2018-12-04] MEDS: CYCLOBENZAPRINE 10 MG TAB PO SCH ×3 (08:32→20:45)
[2018-12-04] MEDS: NADOLOL 40 MG TAB PO SCH ×2 (08:32→20:44)
[2018-12-04] MEDS: COLCHICINE 0.6 MG TAB PO SCH ×2 (08:32→20:44)
[2018-12-04] MEDS: CEFEPIME 1GM/50 ML (PMX) 50 ML IVPB SCH ×2 (08:33→20:45)
[2018-12-04] MEDS: HYDROmorphONE 1 MG/ML SYG IV PRN ×3 (08:33→20:42)
[2018-12-04] MEDS: HEPARIN 5,000 UNIT/1 ML VIAL SC SCH ×2 (08:34→21:15)
--- NOTE | 2018-12-04 09:09 | PN ---
Date/Time of Note Date/Time of Note DATE: 12/04/18 TIME: 09:06 Assessment/Plan VTE Prophylaxis Risk score (from [facility] [place])>0 risk: 4 SCD applied (from [facility] [place]): No SCD contraindicated: low risk/ambulating Pharmacological prophylaxis: heparin Pharm contraindication: low risk/ambulating Lines/Catheters IV [facility]from [facility] [place] [facility] Urinary Cath still in place: No Assessment/Plan Problems: (1) Abdominal pain Status: Acute Comment: As per gastroenterology. She is still having symptoms despite proton pump inhibitor, sucralfate, and Creon. Continue with observation and input from gastroenterology. Please note that the symptoms and description are not consistent with vascular insufficiency of the intestinal tree Qualifiers: Abdominal location: left upper quadrant Qualified Codes: R10.12 - Left upper quadrant pain (2) Acute pancreatitis Status: Acute Comment: While her numbers are not up clinically this certainly appears to have some evidence of pancreatic issue Qualifiers: Pancreatitis type: idiopathic Acute pancreatitis complication: no infection or necrosis Qualified Codes: K85.00 - Idiopathic acute pancreatitis without necrosis or infection (3) Rheumatoid arthritis Status: Chronic Comment: Stable on treatment at this time she has physical manifestations of RA Qualifiers: Rheumatoid arthritis location: unspecified site Rheumatoid factor presence: with rheumatoid factor Qualified Codes: M05.9 - Rheumatoid arthritis with rheumatoid factor, unspecified (4) SLE (systemic lupus erythematosus) Status: Chronic Comment: Noted that this time the pericardial effusion is improved the combination of medications Qualifiers: Systemic lupus erythematosus type: unspecified Systemic lupus erythematosus organ involvement: pericarditis Qualified Codes: M32.12 - Pericarditis in systemic lupus erythematosus (5) Raynaud phenomenon Status: Chronic Comment: Prior history of one digit amputation Qualifiers: Raynaud?s-associated gangrene presence: without gangrene Qualified Codes: I73.00 - Raynaud's syndrome without gangrene (6) Hypertension Status: Chronic Comment: Adequate control at this time Qualifiers: Hypertension type: essential hypertension Qualified Codes: I10 - Essential (primary) hypertension (7) Pericardial effusion Status: Acute Comment: Improved. Result Diagram: 12/04/186 12/04/186 Results 24hrs Laboratory Tests Test 12/04/18 04:46 White Blood Count 7.4 # Red Blood Count 3.28 L Hemoglobin 8.4 L Hematocrit 28.5 L Mean Corpuscular Volume 86.9 Mean Corpuscular Hemoglobin 25.6 L Mean Corpuscular Hemoglobin Concent 29.5 L Red Cell Distribution Width 17.0 H Platelet Count 688 H Mean Platelet Volume 9.9 Immature Granulocytes % 1.500 H Neutrophils % Lymphocytes % Monocytes % Eosinophils % Basophils % Nucleated Red Blood Cells % 12.5 H Immature Granulocytes # 0.110 H Neutrophils # Lymphocytes # Monocytes # Eosinophils # Basophils # Nucleated Red Blood Cells # Sodium Level 138 Potassium Level 4.2 Chloride Level 105 Carbon Dioxide Level 28 Anion Gap 5 Blood Urea Nitrogen 20 Creatinine 0.55 Est Glomerular Filtrat Rate mL/min > 60 Glucose Level 122 Calcium Level 9.0 Subjective 24 Hr Interval Summary Free Text/Dictation Patient reports she still is having pain with eating. This is epigastric and radiates to the left Constitutional: no complaints Respiratory: no complaints Cardiovascular: no complaints Gastrointestinal: pain (Postprandial pain epigastric to the left) Exam/Review of Systems Exam Vitals Vital Signs Date Temp Pulse Resp B/P (MAP) Pulse Ox O2 O2 Flow FiO2 Time Delivery Rate 12/04/18 60 08:00 12/04/18 98.0 22 120/61 96 Room Air 07:18 (80) Intake and Output 12/03/18 12/03/18 12/04/18 1515:00 23:00 07:00 IntakeIntake Total 50 ml 1210 ml 300 ml BalanceBalance 50 ml 1210 ml 300 ml Constitutional: alert, oriented Respiratory: clear to auscultation, normal air movement Cardiovascular: regular rate and rhythm, nl pulses Gastrointestinal: soft, nl liver, spleen Results Results 24hrs Laboratory Tests Test 12/04/18 04:46 White Blood Count 7.4 # Red Blood Count 3.28 L Hemoglobin 8.4 L Hematocrit 28.5 L Mean Corpuscular Volume 86.9 Mean Corpuscular Hemoglobin 25.6 L Mean Corpuscular Hemoglobin Concent 29.5 L Red Cell Distribution Width 17.0 H Platelet Count 688 H Mean Platelet Volume 9.9 Immature Granulocytes % 1.500 H Neutrophils % Lymphocytes % Monocytes % Eosinophils % Basophils % Nucleated Red Blood Cells % 12.5 H Immature Granulocytes # 0.110 H Neutrophils # Lymphocytes # Monocytes # Eosinophils # Basophils # Nucleated Red Blood Cells # Sodium Level 138 Potassium Level 4.2 Chloride Level 105 Carbon Dioxide Level 28 Anion Gap 5 Blood Urea Nitrogen 20 Creatinine 0.55 Est Glomerular Filtrat Rate mL/min > 60 Glucose Level 122 Calcium Level 9.0 Medications Medication Current Medications IV Flush (NS 3 ml) 3 ml PER PROTOCOL IV ; Start 11/29/18 at 07:00 Ondansetron HCl (Zofran Inj) 4 mg Q6H PRN IV NAUSEA/VOMITING Last administered on 12/04/18 08:34; Admin Dose 4 MG; Start 11/29/18 at 07:00 Acetaminophen (Tylenol Tab) 650 mg Q6H PRN PO .PAIN 1-3 OR TEMP; Start 11/29/18 at 07:00 Acetaminophen/ Hydrocodone Bitart ([place] (5/325)) 1 tab Q6H PRN PO .MOD PAIN 4- 6 Last administered on 12/02/18at 11:08; Admin Dose 1 TAB; Start 11/29/18 at 07:00 Docusate Sodium (Colace) 100 mg Q12H PRN PO .CONSTIPATION; Start 11/29/18 at 07:00 Magnesium Hydroxide (Milk Of Mag) 30 ml DAILY PRN PO .CONSTIPATION; Start 11/29/18 at 07:00 Heparin Sodium (Porcine) (Heparin (5000 Units/1ml)) 5,000 unit Q12 SC Last administered on 12/04/18 08:34; Admin Dose 5,000 UNIT; Start 11/29/18 at 09:00 Lorazepam (Ativan) 0.5 mg Q6H PRN IV ANXIETY; Start 11/29/18 at 07:00 Albuterol/ Ipratropium (Duoneb) 3 ml Q4H RESP THERAPY PRN HHN SHORTNESS OF BREATH; Start 11/29/18 at 07:00 Hydralazine HCl (Apresoline) 10 mg Q6H PRN IV for sys bp > 180; Start 11/29/18 at 07:00 Nitroglycerin (Nitroglycerin (Sl Tab) 0.4 Mg) 1 tab Q5M PRN SL ANGINA Last administered on 11/30/18at 10:24; Admin Dose 1 TAB; Start 11/29/18 at 07:00 Amlodipine Besylate (Norvasc) 5 mg BID PO Last administered on 12/04/18at 08:32; Admin Dose 5 MG; Start 11/30/18 at 09:00 Azathioprine (Imuran) 100 mg DAILY PO Last administered on 12/04/18 08:31; Admin Dose 100 MG; Start 11/30/18 at 09:00 Cyclobenzaprine HCl (Flexeril) 10 mg TID PO Last administered on 12/04/18 08:32; Admin Dose 10 MG; Start 11/30/18 at 09:00 Nadolol (Corgard) 20 mg BID PO Last administered on 12/04/18 08:32; Admin Dose 20 MG; Start 11/30/18 at 09:00 Tramadol HCl (Ultram) 50 mg Q4 PRN PO PAIN Last administered on 12/03/18 03:13; Admin Dose 50 MG; Start 11/30/18 at 00:00 Calcium/Vitamin D (Oyster Shell/ Vit-D (500/200)) 1 tab DAILY PO Last administered on 12/04/18 08:32; Admin Dose 1 TAB; Start 11/30/18 at 09:00 Sucralfate (Carafate Susp) 1 gm QID PO Last administered on 12/03/18 22:28; Admin Dose 1 GM; Start 11/30/18 at 09:00 Pantoprazole (Protonix Iv) 40 mg BID@06,18 IV Last administered on 12/04/18 05:56; Admin Dose 40 MG; Start 11/30/18 at 06:00 Metoclopramide HCl (Reglan) 10 mg Q6H PRN IV nausae Last administered on 11/30/18 12:09; Admin Dose 10 MG; Start 11/30/18 at 11:00 Colchicine (Colchicine) 0.6 mg BID PO Last administered on 12/04/18 08:32; Admin Dose 0.6 MG; Start 11/30/18 at 12:30 Cefepime HCl 50 ml @ 100 mls/hr Q12 IVPB Last administered on 12/04/18 08:33; Admin Dose 100 MLS/HR; Start 12/01/18 at 15:00 Linezolid 300 ml @ 300 mls/hr Q12 IVPB Last administered on 12/03/18 21:10; Admin Dose 300 MLS/HR; Start 12/01/18 at 21:00 Methylprednisolone Sodium Succinate (Solu-Medrol) 40 mg BID IV Last administered on 12/04/18 08:31; Admin Dose 40 MG; Start 12/02/18 at 09:00 Hydromorphone HCl (Dilaudid) 1 mg Q4H PRN IV SEVERE PAIN LEVEL 7-10 Last administered on 12/04/18 08:33; Admin Dose 1 MG; Start 12/02/18 at 12:30 Amylase/Lipase/ Protease (Creon ([id number])) 2 cap WITH MEALS PO Last administered on 12/04/18 08:31; Admin Dose 2 CAP; Start 12/02/18 at 18:00 TIMO PITT MD Dec 04, 2018 09:09
[2018-12-04] MEDS: LINEZOLID 600 MG/300 ML (PMX) 300 ML IVPB SCH ×2 (10:36→20:59)
--- NOTE | 2018-12-04 11:04 | CONS ---
Assessment/Plan Assessment/Plan Assessment/Plan (Daily) Assessment and recommendations; 1. Patient with history of SLE admitted for left lower lobe pneumonia, clinically improved. 2. chronic immunosupression 3. hx of splenectomy 4. pericardial effusion. obtain cxr, continue current treatment. Consultation Date/Type/Reason Admit Date/Time Nov 29, 2018 at 06:15 Initial Consult Date 12/01/18 Type of Consult Pulmonary Patient is a very pleasant 39-year-old lady who came into the hospital with a few days history of coughing high fever and mild shortness of breath. Patient also been complaining of abdominal pain without any nausea vomiting. Upon evaluation a chest x-ray was done which showed left lower lobe infiltrate, patient subsequently had a CT of the chest done which is showing a partially loculated left pleural effusion with infiltrative changes in the left lower lo be. Patient feeling somewhat better since admission and reporting significant reduction in abdominal pain. According to the patient the fever was as high as 101 F few days ago. Patient denies any prior history of pneumonia or any pleural effusion. Past medical history; 1. SLE. 2. Chronic immunosuppression with prednisone and Imuran. 3. No history of any pleural effusion or any history of serositis. 4. 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 5. History of splenectomy with laparotomy. Medications; reviewed. Allergies; as outlined above. Social history; most of any alcohol drug or tobacco abuse. Family history; noncontributory. Occupational history; patient is on disability. Review of systems; denies any headache, seizures, visual changes. Any sore throat, dysphagia, Complains of mild left lateral chest pain. Complains of cough with fever. Denies any sputum production hemoptysis. Abdominal pain is markedly improved. Denies any nausea vomiting. Any diarrhea, constipation, melena, hematochezia. Any urinary symptoms. Any skin changes or any new arthritis symptoms. Denies any weight loss. General exam; young female awake alert currently no distress. Date/Time of Note DATE: 12/04/18 TIME: 11:01 24 HR Interval Summary Free Text/Dictation Patient's condition is significantly improved. Denies any shortness of breath, chest pain, coughing. Complains of very occasional upper abdominal pain increased by eating. Denies any nausea vomiting. General exam; young female, awake alert, currently no distress. On room air. Exam/Review of Systems Exam Vitals Vital Signs Date Temp Pulse Resp B/P (MAP) Pulse Ox O2 O2 Flow FiO2 Time Delivery Rate 12/04/18 60 08:00 12/04/18 98.0 22 120/61 96 Room Air 07:18 (80) Intake and Output 12/03/18 12/03/18 12/04/18 1515:00 23:00 07:00 IntakeIntake Total 50 ml 1210 ml 300 ml BalanceBalance 50 ml 1210 ml 300 ml Exam H EENT exam; supple neck, no JVD. No lymphadenopathy. Midline trachea. No thyromegaly. Patient has good dentition. No neck masses. Chest exam; clear to auscultation. S1-S2 audible, no murmurs. Regular rhythm. Abdomen exam; soft, nontender. No organomegaly. Bowel sounds audible. There i s a well-healed laparotomy scar. Extremity exam; peripheral edema clubbing. DIAGNOSTIC TECH exam; no focal deficit. Results Result Diagram: 12/04/18 0446 12/04/18 0446 Results 24hrs Laboratory Tests Test 12/04/18 04:46 White Blood Count 7.4 # Red Blood Count 3.28 L Hemoglobin 8.4 L Hematocrit 28.5 L Mean Corpuscular Volume 86.9 Mean Corpuscular Hemoglobin 25.6 L Mean Corpuscular Hemoglobin Concent 29.5 L Red Cell Distribution Width 17.0 H Platelet Count 688 H Mean Platelet Volume 9.9 Immature Granulocytes % 1.500 H Neutrophils % Segmented Neutrophils % (Manual) 79 H Band Neutrophils % (Manual) 6 H Lymphocytes % Lymphocytes % (Manual) 7 L Monocytes % Monocytes % (Manual) 8 Eosinophils % Basophils % Nucleated Red Blood Cells % 21 H Immature Granulocytes # 0.110 H Neutrophils # Neutrophils # (Manual) 5.9 Band Neutrophils # 0.4 Lymphocytes (Manual) 0.5 L Lymphocytes # Monocytes # Monocytes # (Manual) 0.5 Eosinophils # Basophils # Nucleated Red Blood Cells # Platelet Estimate INCREASED Polychromasia 3+ Hypochromasia 1+ Poikilocytosis 3+ Anisocytosis 2+ Macrocytosis 1+ Target Cells 1+ Sodium Level 138 Potassium Level 4.2 Chloride Level 105 Carbon Dioxide Level 28 Anion Gap 5 Blood Urea Nitrogen 20 Creatinine 0.55 Est Glomerular Filtrat Rate mL/min > 60 Glucose Level 122 Calcium Level 9.0 Medications Medication Current Medications IV Flush (NS 3 ml) 3 ml PER PROTOCOL IV ; Start 11/29/18 at 07:00 Ondansetron HCl (Zofran Inj) 4 mg Q6H PRN IV NAUSEA/VOMITING Last administered on 12/04/18 08:34; Admin Dose 4 MG; Start 11/29/18 at 07:00 Acetaminophen (Tylenol Tab) 650 mg Q6H PRN PO .PAIN 1-3 OR TEMP; Start 11/29/18 at 07:00 Acetaminophen/ Hydrocodone Bitart ([place] (5/325)) 1 tab Q6H PRN PO .MOD PAIN 4- 6 Last administered on 12/02/18 11:08; Admin Dose 1 TAB; Start 11/29/18 at 07:00 Docusate Sodium (Colace) 100 mg Q12H PRN PO .CONSTIPATION; Start 11/29/18 at 07:00 Magnesium Hydroxide (Milk Of Mag) 30 ml DAILY PRN PO .CONSTIPATION; Start 11/29/18 at 07:00 Heparin Sodium (Porcine) (Heparin (5000 Units/1ml)) 5,000 unit Q12 SC Last administered on 12/04/18 08:34; Admin Dose 5,000 UNIT; Start 11/29/18 at 09:00 Lorazepam (Ativan) 0.5 mg Q6H PRN IV ANXIETY; Start 11/29/18 at 07:00 Albuterol/ Ipratropium (Duoneb) 3 ml Q4H RESP THERAPY PRN HHN SHORTNESS OF BREATH; Start 11/29/18 at 07:00 Hydralazine HCl (Apresoline) 10 mg Q6H PRN IV for sys bp > 180; Start 11/29/18 at 07:00 Nitroglycerin (Nitroglycerin (Sl Tab) 0.4 Mg) 1 tab Q5M PRN SL ANGINA Last administered on 11/30/18 10:24; Admin Dose 1 TAB; Start 11/29/18 at 07:00 Amlodipine Besylate (Norvasc) 5 mg BID PO Last administered on 12/04/18 08:32; Admin Dose 5 MG; Start 11/30/18 at 09:00 Azathioprine (Imuran) 100 mg DAILY PO Last administered on 12/04/18 08:31; Admin Dose 100 MG; Start 11/30/18 at 09:00 Cyclobenzaprine HCl (Flexeril) 10 mg TID PO Last administered on 12/04/18 08:32; Admin Dose 10 MG; Start 11/30/18 at 09:00 Nadolol (Corgard) 20 mg BID PO Last administered on 12/04/18 08:32; Admin Dose 20 MG; Start 11/30/18 at 09:00 Tramadol HCl (Ultram) 50 mg Q4 PRN PO PAIN Last administered on 12/03/18 03:13; Admin Dose 50 MG; Start 11/30/18 at 00:00 Calcium/Vitamin D (Oyster Shell/ Vit-D (500/200)) 1 tab DAILY PO Last administered on 12/04/18 08:32; Admin Dose 1 TAB; Start 11/30/18 at 09:00 Sucralfate (Carafate Susp) 1 gm QID PO Last administered on 12/03/18 22:28; Admin Dose 1 GM; Start 11/30/18 at 09:00 Pantoprazole (Protonix Iv) 40 mg BID@06,18 IV Last administered on 12/04/18 05:56; Admin Dose 40 MG; Start 11/30/18 at 06:00 Metoclopramide HCl (Reglan) 10 mg Q6H PRN IV nausae Last administered on 11/30/18 12:09; Admin Dose 10 MG; Start 11/30/18 at 11:00 Colchicine (Colchicine) 0.6 mg BID PO Last administered on 12/04/18 08:32; Admin Dose 0.6 MG; Start 11/30/18 at 12:30 Cefepime HCl 50 ml @ 100 mls/hr Q12 IVPB Last administered on 12/04/18 08:33; Admin Dose 100 MLS/HR; Start 12/01/18 at 15:00 Linezolid 300 ml @ 300 mls/hr Q12 IVPB Last administered on 12/04/18 10:36; Admin Dose 300 MLS/HR; Start 12/01/18 at 21:00 Methylprednisolone Sodium Succinate (Solu-Medrol) 40 mg BID IV Last administered on 12/04/18 08:31; Admin Dose 40 MG; Start 12/02/18 at 09:00 Hydromorphone HCl (Dilaudid) 1 mg Q4H PRN IV SEVERE PAIN LEVEL 7-10 Last administered on 12/04/18 08:33; Admin Dose 1 MG; Start 12/02/18 at 12:30 Amylase/Lipase/ Protease (Creon ([id number])) 2 cap WITH MEALS PO Last administered on 12/04/18 08:31; Admin Dose 2 CAP; Start 12/02/18 at 18:00 JUSTICE CARBALLO Dec 04, 2018 11:04
[2018-12-04] MEDS: SUCRALFATE (100 MG/ML) 10ML CUP PO SCH ×3 (12:21→20:42)
--- NOTE | 2018-12-04 15:38 | CONS ---
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 No tamponade physiology. Pleuritic chest pain. 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 No NSAIDs with ulcers -steroids per rheum/pulm Consultation Date/Type/Reason Admit Date/Time Nov 29, 2018 at 06:15 Initial Consult Date 12/01/18 Type of Consult Cardiology Date/Time of Note DATE: 12/04/18 TIME: 15:37 24 HR Interval Summary Free Text/Dictation No acute events. Sinus bradycardia on telemetry. Detailed Summary Additional Comments 14 point review of systems without changes. Exam/Review of Systems Vital Signs Vitals Vital Signs Date Temp Pulse Resp B/P (MAP) Pulse Ox O2 O2 Flow FiO2 Time Delivery Rate 12/04/18 98.0 75 22 130/76 96 Room Air 15:30 (94) Intake and Output 12/03/18 12/03/18 12/04/18 1515:00 23:00 07:00 IntakeIntake Total 50 ml 1210 ml 300 ml BalanceBalance 50 ml 1210 ml 300 ml Exam Exam Constitutional: alert, oriented Psych: no complaints, nl mood/affect Head: normocephalic, atraumatic Neck: supple; No jvd Respiratory: diminished breath sounds; No clear to auscultation Cardiovascular: regular rate and rhythm, rub; No edema Gastrointestinal: soft; No non-tender (mild), No distended Neurological: nl mental status, nl speech Labs Result Diagram: 12/04/186 12/04/186 Results 24hrs Laboratory Tests Test 12/04/18 04:46 White Blood Count 7.4 # Red Blood Count 3.28 L Hemoglobin 8.4 L Hematocrit 28.5 L Mean Corpuscular Volume 86.9 Mean Corpuscular Hemoglobin 25.6 L Mean Corpuscular Hemoglobin Concent 29.5 L Red Cell Distribution Width 17.0 H Platelet Count 688 H Mean Platelet Volume 9.9 Immature Granulocytes % 1.500 H Neutrophils % Segmented Neutrophils % (Manual) 79 H Band Neutrophils % (Manual) 6 H Lymphocytes % Lymphocytes % (Manual) 7 L Monocytes % Monocytes % (Manual) 8 Eosinophils % Basophils % Nucleated Red Blood Cells % 21 H Immature Granulocytes # 0.110 H Neutrophils # Neutrophils # (Manual) 5.9 Band Neutrophils # 0.4 Lymphocytes (Manual) 0.5 L Lymphocytes # Monocytes # Monocytes # (Manual) 0.5 Eosinophils # Basophils # Nucleated Red Blood Cells # Platelet Estimate INCREASED Polychromasia 3+ Hypochromasia 1+ Poikilocytosis 3+ Anisocytosis 2+ Macrocytosis 1+ Target Cells 1+ Sodium Level 138 Potassium Level 4.2 Chloride Level 105 Carbon Dioxide Level 28 Anion Gap 5 Blood Urea Nitrogen 20 Creatinine 0.55 Est Glomerular Filtrat Rate mL/min > 60 Glucose Level 122 Calcium Level 9.0 Medications Medications Current Medications IV Flush (NS 3 ml) 3 ml PER PROTOCOL IV ; Start 11/29/18 at 07:00 Ondansetron HCl (Zofran Inj) 4 mg Q6H PRN IV NAUSEA/VOMITING Last administered on 12/04/18at 08:34; Admin Dose 4 MG; Start 11/29/18 at 07:00 Acetaminophen (Tylenol Tab) 650 mg Q6H PRN PO .PAIN 1-3 OR TEMP; Start 11/29/18 at 07:00 Acetaminophen/ Hydrocodone Bitart ([place] (5/325)) 1 tab Q6H PRN PO .MOD PAIN 4- 6 Last administered on 12/02/18at 11:08; Admin Dose 1 TAB; Start 11/29/18 at 07:00 Docusate Sodium (Colace) 100 mg Q12H PRN PO .CONSTIPATION; Start 11/29/18 at 07:00 Magnesium Hydroxide (Milk Of Mag) 30 ml DAILY PRN PO .CONSTIPATION; Start 11/29/18 at 07:00 Heparin Sodium (Porcine) (Heparin (5000 Units/1ml)) 5,000 unit Q12 SC Last administered on 12/04/18at 08:34; Admin Dose 5,000 UNIT; Start 11/29/18 at 09:00 Lorazepam (Ativan) 0.5 mg Q6H PRN IV ANXIETY; Start 11/29/18 at 07:00 Albuterol/ Ipratropium (Duoneb) 3 ml Q4H RESP THERAPY PRN HHN SHORTNESS OF BREATH; Start 11/29/18 at 07:00 Hydralazine HCl (Apresoline) 10 mg Q6H PRN IV for sys bp > 180; Start 11/29/18 at 07:00 Nitroglycerin (Nitroglycerin (Sl Tab) 0.4 Mg) 1 tab Q5M PRN SL ANGINA Last ad ministered on 11/30/18 10:24; Admin Dose 1 TAB; Start 11/29/18 at 07:00 Amlodipine Besylate (Norvasc) 5 mg BID PO Last administered on 12/04/18 08:32; Admin Dose 5 MG; Start 11/30/18 at 09:00 Azathioprine (Imuran) 100 mg DAILY PO Last administered on 12/04/18 08:31; Admin Dose 100 MG; Start 11/30/18 at 09:00 Cyclobenzaprine HCl (Flexeril) 10 mg TID PO Last administered on 12/04/18 12:21; Admin Dose 10 MG; Start 11/30/18 at 09:00 Nadolol (Corgard) 20 mg BID PO Last administered on 12/04/18 08:32; Admin Dose 20 MG; Start 11/30/18 at 09:00 Tramadol HCl (Ultram) 50 mg Q4 PRN PO PAIN Last administered on 12/03/18 03:13; Admin Dose 50 MG; Start 11/30/18 at 00:00 Calcium/Vitamin D (Oyster Shell/ Vit-D (500/200)) 1 tab DAILY PO Last administered on 12/04/18 08:32; Admin Dose 1 TAB; Start 11/30/18 at 09:00 Sucralfate (Carafate Susp) 1 gm QID PO Last administered on 12/04/18 12:21; Admin Dose 1 GM; Start 11/30/18 at 09:00 Pantoprazole (Protonix Iv) 40 mg BID@,18 IV Last administered on 12/04/18 05:56; Admin Dose 40 MG; Start 11/30/18 at 06:00 Metoclopramide HCl (Reglan) 10 mg Q6H PRN IV nausae Last administered on 11/30/18 12:09; Admin Dose 10 MG; Start 11/30/18 at 11:00 Colchicine (Colchicine) 0.6 mg BID PO Last administered on 12/04/18 08:32; Admin Dose 0.6 MG; Start 11/30/18 at 12:30 Cefepime HCl 50 ml @ 100 mls/hr Q12 IVPB Last administered on 12/04/18 08:33; Admin Dose 100 MLS/HR; Start 12/01/18 at 15:00 Linezolid 300 ml @ 300 mls/hr Q12 IVPB Last administered on 12/04/18 10:36; Admin Dose 300 MLS/HR; Start 12/01/18 at 21:00 Methylprednisolone Sodium Succinate (Solu-Medrol) 40 mg BID IV Last administered on 12/04/18 08:31; Admin Dose 40 MG; Start 12/02/18 at 09:00 Hydromorphone HCl (Dilaudid) 1 mg Q4H PRN IV SEVERE PAIN LEVEL 7-10 Last administered on 12/04/18 15:15; Admin Dose 1 MG; Start 12/02/18 at 12:30 Amylase/Lipase/ Protease (Creon ([id number])) 2 cap WITH MEALS PO Last administered on 12/04/18 12:21; Admin Dose 2 CAP; Start 12/02/18 at 18:00 NU SERRANO MD Dec 04, 2018 15:38
--- NOTE | 2018-12-04 16:11 | PN ---
Date/Time of Note Date/Time of Note DATE: 12/04/18 TIME: 15:58 Assessment/Plan VTE Prophylaxis Risk score (from Nsg)>0 risk: 2 SCD applied (from Ns): No SCD contraindicated: low risk/ambulating Pharmacological prophylaxis: NA/contraindicated Pharm contraindication: bleeding Lines/Catheters [facility] [place] Urinary Cath still in place: No Assessment/Plan Assessment/Plan Assessment: Epigastric pain-with radiation to left upper quadrant and left flank/back -CT is concerning for pancreatitis, however lipase and amylase WNL Left pleural effusion Diarrhea Pericardial effusion, moderate -Echocardiogram - Small to borderline moderate circumferential pericardial effusion without evidence of tamponade. EF 55% Normocytic Anemia Thrombocytosis Recent History Hematemesis EGD 11/15/2018 Extensive ulceration of the distal esophagus, rule out opportunistic infection, biopsies obtained. Grade II/IV esophageal varices. No stigmata of recent bleeding. No therapeutic intervention required Mild gastritis versus portal gastropathy, Otherwise normal EGD Stomach biopsy negative for H. pylori infection, no evidence of intestinal metaplasia, dysplasia, or malignancy Esophageal ulcer biopsy mucosa showing moderate chronic inflammation no squamous mucosa is present. No goblet cells are identified, no H. pylori is identified, no evidence of dysplasia or malignancy SLE/Rheumatoid arthritis/Raynaud's syndrome -On prednisone. History of Splenectomy Depression HTN Hx of EGD/colonoscopy 09/26/18 Colonoscopy 09/26/2018colitis more significant in the area of the rectum moderate size internal hemorrhoidsbiopsy negative for evidence of colitis EGD grade II/IV esophageal varices, severe gastritisbiopsies negative for H. pylori Liver cirrhosis- with hx of EV -Hepatitis serology negative -ASMA,AMA- negative Status post finger amputation secondary to Raynaud's syndrome Leukocytosis currently on steroid therapy Plan: Continue low fat diet. Continue Creon Stool culture - negative Obtain C-diff Currently no plan to re-scope given recent EGD- will continue PPI/Carafate Supportive care Patient seen in collaboration with Subjective: Course reviewed with nursing staff Patient interviewed and examined All labs, imaging and other results reviewed Patient is continuing to complaining of epigastric pain radiating to the left upper quadrant back. She reports mild improvement each day. She is tolerating a low fat diet without nausea or vomiting. She is having multiple loose bowel movements. C-diff negative. Continue observation. Exam PHYSICAL EXAMINATION: GENERAL: Chronically ill appearing young woman, alert & oriented x 3, edema/swelling from chronic steroid use SKIN: No lesions. HEAD: Normocephalic, atraumatic, no tenderness. EYES: Pupils equal reactive to light, no discharge. EARS/NOSE AND THROAT: Ears normal, nose normal. NECK: Supple, no masses, thyroid normal. CHEST: Inspection within normal limits. CARDIOVASCULAR: Heart: Regular rate and rhythm RESPIRATORY: Lungs clear to auscultation. GASTROINTESTINAL AND LIVER: Abdomen: obese, soft, epigastric tenderness, non- distended, no hernias, no masses, normoactive bowel sounds. Rectal: Deferred. EXTREMITIES: No cyanosis, clubbing or edema. Right index finger amputated 1 phalanx Result Diagram: 12/04/18 0446 12/04/18 0446 Results 24hrs Laboratory Tests Test 12/04/18 04:46 White Blood Count 7.4 # Red Blood Count 3.28 L Hemoglobin 8.4 L Hematocrit 28.5 L Mean Corpuscular Volume 86.9 Mean Corpuscular Hemoglobin 25.6 L Mean Corpuscular Hemoglobin Concent 29.5 L Red Cell Distribution Width 17.0 H Platelet Count 688 H Mean Platelet Volume 9.9 Immature Granulocytes % 1.500 H Neutrophils % Segmented Neutrophils % (Manual) 79 H Band Neutrophils % (Manual) 6 H Lymphocytes % Lymphocytes % (Manual) 7 L Monocytes % Monocytes % (Manual) 8 Eosinophils % Basophils % Nucleated Red Blood Cells % 21 H Immature Granulocytes # 0.110 H Neutrophils # Neutrophils # (Manual) 5.9 Band Neutrophils # 0.4 Lymphocytes (Manual) 0.5 L Lymphocytes # Monocytes # Monocytes # (Manual) 0.5 Eosinophils # Basophils # Nucleated Red Blood Cells # Platelet Estimate INCREASED Polychromasia 3+ Hypochromasia 1+ Poikilocytosis 3+ Anisocytosis 2+ Macrocytosis 1+ Target Cells 1+ Sodium Level 138 Potassium Level 4.2 Chloride Level 105 Carbon Dioxide Level 28 Anion Gap 5 Blood Urea Nitrogen 20 Creatinine 0.55 Est Glomerular Filtrat Rate mL/min > 60 Glucose Level 122 Calcium Level 9.0 CC: PAUL ANTHONY MD ; Exam/Review of Systems Exam Vitals Vital Signs Date Temp Pulse Resp B/P (MAP) Pulse Ox O2 O2 Flow FiO2 Time Delivery Rate 12/04/18 98.0 75 22 130/76 96 Room Air 15:30 (94) Intake and Output 12/03/18 12/03/18 12/04/18 1515:00 23:00 07:00 IntakeIntake Total 50 ml 1210 ml 300 ml BalanceBalance 50 ml 1210 ml 300 ml Results Results 24hrs Laboratory Tests Test 12/04/18 04:46 White Blood Count 7.4 # Red Blood Count 3.28 L Hemoglobin 8.4 L Hematocrit 28.5 L Mean Corpuscular Volume 86.9 Mean Corpuscular Hemoglobin 25.6 L Mean Corpuscular Hemoglobin Concent 29.5 L Red Cell Distribution Width 17.0 H Platelet Count 688 H Mean Platelet Volume 9.9 Immature Granulocytes % 1.500 H Neutrophils % Segmented Neutrophils % (Manual) 79 H Band Neutrophils % (Manual) 6 H Lymphocytes % Lymphocytes % (Manual) 7 L Monocytes % Monocytes % (Manual) 8 Eosinophils % Basophils % Nucleated Red Blood Cells % 21 H Immature Granulocytes # 0.110 H Neutrophils # Neutrophils # (Manual) 5.9 Band Neutrophils # 0.4 Lymphocytes (Manual) 0.5 L Lymphocytes # Monocytes # Monocytes # (Manual) 0.5 Eosinophils # Basophils # Nucleated Red Blood Cells # Platelet Estimate INCREASED Polychromasia 3+ Hypochromasia 1+ Poikilocytosis 3+ Anisocytosis 2+ Macrocytosis 1+ Target Cells 1+ Sodium Level 138 Potassium Level 4.2 Chloride Level 105 Carbon Dioxide Level 28 Anion Gap 5 Blood Urea Nitrogen 20 Creatinine 0.55 Est Glomerular Filtrat Rate mL/min > 60 Glucose Level 122 Calcium Level 9.0 Medications Medication Current Medications IV Flush (NS 3 ml) 3 ml PER PROTOCOL IV ; Start 11/29/18 at 07:00 Ondansetron HCl (Zofran Inj) 4 mg Q6H PRN IV NAUSEA/VOMITING Last administered on 12/04/18at 08:34; Admin Dose 4 MG; Start 11/29/18 at 07:00 Acetaminophen (Tylenol Tab) 650 mg Q6H PRN PO .PAIN 1-3 OR TEMP; Start 11/29/18 at 07:00 Acetaminophen/ Hydrocodone Bitart ([place] (5/325)) 1 tab Q6H PRN PO .MOD PAIN 4- 6 Last administered on 12/02/18at 11:08; Admin Dose 1 TAB; Start 11/29/18 at 07:00 Docusate Sodium (Colace) 100 mg Q12H PRN PO .CONSTIPATION; Start 11/29/18 at 07:00 Magnesium Hydroxide (Milk Of Mag) 30 ml DAILY PRN PO .CONSTIPATION; Start 11/29/18 at 07:00 Heparin Sodium (Porcine) (Heparin (5000 Units/1ml)) 5,000 unit Q12 SC Last administered on 12/04/18 08:34; Admin Dose 5,000 UNIT; Start 11/29/18 at 09:00 Lorazepam (Ativan) 0.5 mg Q6H PRN IV ANXIETY; Start 11/29/18 at 07:00 Albuterol/ Ipratropium (Duoneb) 3 ml Q4H RESP THERAPY PRN HHN SHORTNESS OF BREATH; Start 11/29/18 at 07:00 Hydralazine HCl (Apresoline) 10 mg Q6H PRN IV for sys bp > 180; Start 11/29/18 at 07:00 Nitroglycerin (Nitroglycerin (Sl Tab) 0.4 Mg) 1 tab Q5M PRN SL ANGINA Last admi nistered on 11/30/18 10:24; Admin Dose 1 TAB; Start 11/29/18 at 07:00 Amlodipine Besylate (Norvasc) 5 mg BID PO Last administered on 12/04/18 08:32; Admin Dose 5 MG; Start 11/30/18 at 09:00 Azathioprine (Imuran) 100 mg DAILY PO Last administered on 12/04/18 08:31; Admin Dose 100 MG; Start 11/30/18 at 09:00 Cyclobenzaprine HCl (Flexeril) 10 mg TID PO Last administered on 12/04/18 12:21; Admin Dose 10 MG; Start 11/30/18 at 09:00 Nadolol (Corgard) 20 mg BID PO Last administered on 12/04/18 08:32; Admin Dose 20 MG; Start 11/30/18 at 09:00 Tramadol HCl (Ultram) 50 mg Q4 PRN PO PAIN Last administered on 12/03/18 03:13; Admin Dose 50 MG; Start 11/30/18 at 00:00 Calcium/Vitamin D (Oyster Shell/ Vit-D (500/200)) 1 tab DAILY PO Last administered on 12/04/18 08:32; Admin Dose 1 TAB; Start 11/30/18 at 09:00 Sucralfate (Carafate Susp) 1 gm QID PO Last administered on 12/04/18 12:21; Admin Dose 1 GM; Start 11/30/18 at 09:00 Pantoprazole (Protonix Iv) 40 mg BID@06,18 IV Last administered on 12/04/18 05:56; Admin Dose 40 MG; Start 11/30/18 at 06:00 Metoclopramide HCl (Reglan) 10 mg Q6H PRN IV nausae Last administered on 11/30/18 12:09; Admin Dose 10 MG; Start 11/30/18 at 11:00 Colchicine (Colchicine) 0.6 mg BID PO Last administered on 12/04/18 08:32; Admin Dose 0.6 MG; Start 11/30/18 at 12:30 Cefepime HCl 50 ml @ 100 mls/hr Q12 IVPB Last administered on 12/04/18 08:33; Admin Dose 100 MLS/HR; Start 12/01/18 at 15:00 Linezolid 300 ml @ 300 mls/hr Q12 IVPB Last administered on 12/04/18 10:36; Admin Dose 300 MLS/HR; Start 12/01/18 at 21:00 Methylprednisolone Sodium Succinate (Solu-Medrol) 40 mg BID IV Last administered on 12/04/18 08:31; Admin Dose 40 MG; Start 12/02/18 at 09:00 Hydromorphone HCl (Dilaudid) 1 mg Q4H PRN IV SEVERE PAIN LEVEL 7-10 Last administered on 12/04/18 15:15; Admin Dose 1 MG; Start 12/02/18 at 12:30 Amylase/Lipase/ Protease (Creon ([id number])) 2 cap WITH MEALS PO Last administered on 12/04/18 12:21; Admin Dose 2 CAP; Start 12/02/18 at 18:00 KT IBANEZ NP Dec 04, 2018 16:08
[2018-12-05] VITALS (11 sets, daily range): BP systolic 123–138; BP diastolic 61–79; PULSE 47–67; RESP 17–18
[2018-12-05] MEDS: PANTOPRAZOLE 40 MG INJ IV SCH (06:00)
[2018-12-05] MEDS: CALCIUM/VITAMIN D (500/200) TAB PO SCH (08:11)
[2018-12-05] MEDS: AMLODIPINE 10 MG TAB PO SCH ×2 (08:12→22:00)
[2018-12-05] MEDS: CREON (24K-76K-120K) 1 CAP PO SCH ×3 (08:13→18:50)
[2018-12-05] MEDS: CYCLOBENZAPRINE 10 MG TAB PO SCH ×3 (08:13→21:59)
[2018-12-05] MEDS: NADOLOL 40 MG TAB PO SCH ×2 (08:13→21:59)
[2018-12-05] MEDS: COLCHICINE 0.6 MG TAB PO SCH ×2 (08:13→21:59)
[2018-12-05] MEDS: AZATHIOPRINE 50 MG TAB PO SCH (08:13)
[2018-12-05] MEDS: SUCRALFATE (100 MG/ML) 10ML CUP PO SCH ×4 (08:14→21:59)
[2018-12-05] MEDS: CEFEPIME 1GM/50 ML (PMX) 50 ML IVPB SCH (08:14)
[2018-12-05] MEDS: METHYLPREDNISOLONE 40 MG INJ IV SCH ×2 (08:14→21:56)
[2018-12-05] MEDS: ONDANSETRON 4 MG INJ IV PRN ×2 (08:23→14:16)
[2018-12-05] MEDS: HYDROmorphONE 1 MG/ML SYG IV PRN ×3 (08:23→18:51)
[2018-12-05] MEDS: HEPARIN 5,000 UNIT/1 ML VIAL SC SCH ×2 (08:35→22:03)
[2018-12-05] MEDS: LINEZOLID 600 MG/300 ML (PMX) 300 ML IVPB SCH ×2 (09:36→21:54)
--- NOTE | 2018-12-05 10:39 | CONS ---
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 No tamponade physiology. Pleuritic chest pain. Due to lupus flare. Resolving and smaller effusion on repeat echo Acute pancreatitis: seen on CT but lipase ok PNA SLE flare with serositis RA Reynauds Splenectomy Liver cirrhosis with varices h/o gastric ulcers -continue colchicine 0.6mg BID x 3 months total -steroids per rheum/pulm -otherwise ok for d/c from cardiac perspective Consultation Date/Type/Reason Admit Date/Time Nov 29, 2018 at 06:15 Initial Consult Date 12/01/18 Type of Consult Cardiology Date/Time of Note DATE: 12/05/18 TIME: 10:37 24 HR Interval Summary Free Text/Dictation Chest pain resolved. Still with abdominal pain after eating Exam/Review of Systems Vital Signs Vitals Vital Signs Date Temp Pulse Resp B/P (MAP) Pulse Ox O2 O2 Flow FiO2 Time Delivery Rate 12/05/18 47 08:01 12/05/18 98.0 18 127/65 98 07:31 (85) 12/04/18 Room Air 15:30 Intake and Output 12/04/18 12/04/18 12/05/18 1515:00 23:00 07:00 IntakeIntake Total 1660 ml 400 ml BalanceBalance 1660 ml 400 ml Exam Constitutional: alert, oriented Head: normocephalic, atraumatic Neck: No jvd Respiratory: diminished breath sounds; No clear to auscultation Cardiovascular: regular rate and rhythm, rub; No edema Gastrointestinal: soft; No non-tender, No distended Neurological: nl mental status, nl speech Labs Result Diagram: 12/05/18 0457 12/05/18 0457 Results 24hrs Laboratory Tests Test 12/05/18 04:57 White Blood Count 8.6 Red Blood Count 3.46 L Hemoglobin 9.0 L Hematocrit 30.0 L Mean Corpuscular Volume 86.7 Mean Corpuscular Hemoglobin 26.0 L Mean Corpuscular Hemoglobin Concent 30.0 L Red Cell Distribution Width 16.8 H Platelet Count 664 H Mean Platelet Volume 10.0 Immature Granulocytes % 1.200 H Neutrophils % 90.9 H Lymphocytes % 0.0 L Monocytes % 7.8 Eosinophils % 0.0 Basophils % 0.1 Nucleated Red Blood Cells % 9.3 H Immature Granulocytes # 0.100 H Neutrophils # 7.8 H Lymphocytes # 0.0 L Monocytes # 0.7 Eosinophils # 0.0 Basophils # 0.0 Nucleated Red Blood Cells # 0.8 H Sodium Level 140 Potassium Level 4.1 Chloride Level 106 Carbon Dioxide Level 28 Anion Gap 6 Blood Urea Nitrogen 23 H Creatinine 0.54 Est Glomerular Filtrat Rate mL/min > 60 Glucose Level 126 Calcium Level 8.8 Medications Medications Current Medications IV Flush (NS 3 ml) 3 ml PER PROTOCOL IV ; Start 11/29/18 at 07:00 Ondansetron HCl (Zofran Inj) 4 mg Q6H PRN IV NAUSEA/VOMITING Last administered on 12/05/18at 08:23; Admin Dose 4 MG; Start 11/29/18 at 07:00 Acetaminophen (Tylenol Tab) 650 mg Q6H PRN PO .PAIN 1-3 OR TEMP; Start 11/29/18 at 07:00 Acetaminophen/ Hydrocodone Bitart ([place] (5/325)) 1 tab Q6H PRN PO .MOD PAIN 4- 6 Last administered on 12/02/18at 11:08; Admin Dose 1 TAB; Start 11/29/18 at 07:00 Docusate Sodium (Colace) 100 mg Q12H PRN PO .CONSTIPATION; Start 11/29/18 at 07:00 Magnesium Hydroxide (Milk Of Mag) 30 ml DAILY PRN PO .CONSTIPATION; Start 11/29/18 at 07:00 Heparin Sodium (Porcine) (Heparin (5000 Units/1ml)) 5,000 unit Q12 SC Last administered on 12/05/18at 08:35; Admin Dose 5,000 UNIT; Start 11/29/18 at 09:00 Lorazepam (Ativan) 0.5 mg Q6H PRN IV ANXIETY; Start 11/29/18 at 07:00 Albuterol/ Ipratropium (Duoneb) 3 ml Q4H RESP THERAPY PRN HHN SHORTNESS OF BREATH; Start 11/29/18 at 07:00 Hydralazine HCl (Apresoline) 10 mg Q6H PRN IV for sys bp > 180; Start 11/29/18 at 07:00 Nitroglycerin (Nitroglycerin (Sl Tab) 0.4 Mg) 1 tab Q5M PRN SL ANGINA Last administered on 11/30/18 10:24; Admin Dose 1 TAB; Start 11/29/18 at 07:00 Amlodipine Besylate (Norvasc) 5 mg BID PO Last administered on 12/05/18 08:12; Admin Dose 5 MG; Start 11/30/18 at 09:00 Azathioprine (Imuran) 100 mg DAILY PO Last administered on 12/05/18 08:13; Admin Dose 100 MG; Start 11/30/18 at 09:00 Cyclobenzaprine HCl (Flexeril) 10 mg TID PO Last administered on 12/05/18 08:13; Admin Dose 10 MG; Start 11/30/18 at 09:00 Nadolol (Corgard) 20 mg BID PO Last administered on 12/05/18 08:13; Admin Dose 20 MG; Start 11/30/18 at 09:00 Tramadol HCl (Ultram) 50 mg Q4 PRN PO PAIN Last administered on 12/03/18 03:13; Admin Dose 50 MG; Start 11/30/18 at 00:00 Calcium/Vitamin D (Oyster [place]/ Vit-D (500/200)) 1 tab DAILY PO Last administered on 12/05/18 08:11; Admin Dose 1 TAB; Start 11/30/18 at 09:00 Sucralfate (Carafate Susp) 1 gm QID PO Last administered on 12/05/18 08:14; Admin Dose 1 GM; Start 11/30/18 at 09:00 Pantoprazole (Protonix Iv) 40 mg BID@06,18 IV Last administered on 12/04/18 17:05; Admin Dose 40 MG; Start 11/30/18 at 06:00 Metoclopramide HCl (Reglan) 10 mg Q6H PRN IV nausae Last administered on 11/30/18 12:09; Admin Dose 10 MG; Start 11/30/18 at 11:00 Colchicine (Colchicine) 0.6 mg BID PO Last administered on 12/05/18 08:13; Admin Dose 0.6 MG; Start 11/30/18 at 12:30 Cefepime HCl 50 ml @ 100 mls/hr Q12 IVPB Last administered on 12/05/18 08:14; Admin Dose 100 MLS/HR; Start 12/01/18 at 15:00 Linezolid 300 ml @ 300 mls/hr Q12 IVPB Last administered on 12/05/18 09:36; Admin Dose 300 MLS/HR; Start 12/01/18 at 21:00 Methylprednisolone Sodium Succinate (Solu-Medrol) 40 mg BID IV Last administered on 12/05/18 08:14; Admin Dose 40 MG; Start 12/02/18 at 09:00 Hydromorphone HCl (Dilaudid) 1 mg Q4H PRN IV SEVERE PAIN LEVEL 7-10 Last administered on 12/05/18 08:23; Admin Dose 1 MG; Start 12/02/18 at 12:30 Amylase/Lipase/ Protease (Creon ([id number])) 2 cap WITH MEALS PO Last administered on 12/05/18 08:13; Admin Dose 2 CAP; Start 12/02/18 at 18:00 MEET GAYLE Dec 05, 2018 10:39
--- NOTE | 2018-12-05 11:32 | CONS ---
Assessment/Plan Assessment/Plan Hospital Course (Demo Recall) Chest x-ray showing interval resolution of left lower lobe pneumonia and pleural effusion. Assessment recommendations; 1. Patient with history of SLE admitted with left lower lobe pneumonia with complicated left pleural effusion with marked overall interval clinical and radiological resolution. 2. Chronic immunosuppression 3. Small pericardial effusion 4. History of laparotomy with splenectomy. Continue current supportive care. Consider discharge of antibiotics. Consultation Date/Type/Reason Admit Date/Time Nov 29, 2018 at 06:15 Initial Consult Date 12/01/18 Type of Consult Pulmonary Patient is a very pleasant 39-year-old lady who came into the hospital with a few days history of coughing high fever and mild shortness of breath. Patient also been complaining of abdominal pain without any nausea vomiting. Upon evaluation a chest x-ray was done which showed left lower lobe infiltrate, patient subsequently had a CT of the chest done which is showing a partially loculated left pleural effusion with infiltrative changes in the left lower lobe. Patient feeling somewhat better since admission and reporting significant reduction in abdominal pain. According to the patient the fever was as high as 101 F few days ago. Patient denies any prior history of pneumonia or any pleural effusion. Past medical history; 1. SLE. 2. Chronic immunosuppression with prednisone and Imuran. 3. No history of any pleural effusion or any history of serositis. 4. 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 5. History of splenectomy with laparotomy. Medications; reviewed. Allergies; as outlined above. Social history; most of any alcohol drug or tobacco abuse. Family history; noncontributory. Occupational history; patient is on disability. Review of systems; denies any h eadache, seizures, visual changes. Any sore throat, dysphagia, Complains of mild left lateral chest pain. Complains of cough with fever. Denies any sputum production hemoptysis. Abdominal pain is markedly improved. Denies any nausea vomiting. Any diarrhea, constipation, melena, hematochezia. Any urinary symptoms. Any skin changes or any new arthritis symptoms. Denies any weight loss. General exam; young female awake alert currently no distress. Date/Time of Note DATE: 12/05/18 TIME: 11:30 24 HR Interval Summary Free Text/Dictation Patient's condition is stable. Denies any chest pain, coughing, shortness of breath. Still complains of occasional epigastric pain increased by eating. But denies any nausea vomiting. General exam; young woman, awake alert, currently in no distress. Exam/Review of Systems Exam Vitals Vital Signs Date Temp Pulse Resp B/P (MAP) Pulse Ox O2 O2 Flow FiO2 Time Delivery Rate 12/05/18 47 08:01 12/05/18 98.0 18 127/65 98 07:31 (85) 12/04/18 Room Air 15:30 Intake and Output 12/04/18 12/04/18 12/05/18 1515:00 23:00 07:00 IntakeIntake Total 1660 ml 400 ml BalanceBalance 1660 ml 400 ml Exam H ENT exam; supple neck, no JVD. No lymphadenopathy. Midline trachea. No thyromegaly. Patient has fair dentition. No neck masses. Chest exam; clear to auscultation. S1-S2 audible, no murmurs. Regular rhythm. Abdomen exam; soft, nontender. There is a well-healed laparotomy scar. Bowel sounds audible. Extremity exam; no peripheral edema. [employer] exam; no focal deficit. Results Result Diagram: 12/05/18 0457 12/05/18 0457 Results 24hrs Laboratory Tests Test 12/05/18 04:57 White Blood Count 8.6 Red Blood Count 3.46 L Hemoglobin 9.0 L Hematocrit 30.0 L Mean Corpuscular Volume 86.7 Mean Corpuscular Hemoglobin 26.0 L Mean Corpuscular Hemoglobin Concent 30.0 L Red Cell Distribution Width 16.8 H Platelet Count 664 H Mean Platelet Volume 10.0 Immature Granulocytes % 1.200 H Neutrophils % 90.9 H Lymphocytes % 0.0 L Monocytes % 7.8 Eosinophils % 0.0 Basophils % 0.1 Nucleated Red Blood Cells % 9.3 H Immature Granulocytes # 0.100 H Neutrophils # 7.8 H Lymphocytes # 0.0 L Monocytes # 0.7 Eosinophils # 0.0 Basophils # 0.0 Nucleated Red Blood Cells # 0.8 H Sodium Level 140 Potassium Level 4.1 Chloride Level 106 Carbon Dioxide Level 28 Anion Gap 6 Blood Urea Nitrogen 23 H Creatinine 0.54 Est Glomerular Filtrat Rate mL/min > 60 Glucose Level 126 Calcium Level 8.8 Medications Medication Current Medications IV Flush (NS 3 ml) 3 ml PER PROTOCOL IV ; Start 11/29/18 at 07:00 Ondansetron HCl (Zofran Inj) 4 mg Q6H PRN IV NAUSEA/VOMITING Last administered on 12/05/18 08:23; Admin Dose 4 MG; Start 11/29/18 at 07:00 Acetaminophen (Tylenol Tab) 650 mg Q6H PRN PO .PAIN 1-3 OR TEMP; Start 11/29/18 at 07:00 Acetaminophen/ Hydrocodone Bitart ([place] (5/325)) 1 tab Q6H PRN PO .MOD PAIN 4- 6 Last administered on 12/02/18 11:08; Admin Dose 1 TAB; Start 11/29/18 at 07:00 Docusate Sodium (Colace) 100 mg Q12H PRN PO .CONSTIPATION; Start 11/29/18 at 07:00 Magnesium Hydroxide (Milk Of Mag) 30 ml DAILY PRN PO .CONSTIPATION; Start 11/29/18 at 07:00 Heparin Sodium (Porcine) (Heparin (5000 Units/1ml)) 5,000 unit Q12 SC Last administered on 12/05/18 08:35; Admin Dose 5,000 UNIT; Start 11/29/18 at 09:00 Lorazepam (Ativan) 0.5 mg Q6H PRN IV ANXIETY; Start 11/29/18 at 07:00 Albuterol/ Ipratropium (Duoneb) 3 ml Q4H RESP THERAPY PRN HHN SHORTNESS OF BREATH; Start 11/29/18 at 07:00 Hydralazine HCl (Apresoline) 10 mg Q6H PRN IV for sys bp > 180; Start 11/29/18 at 07:00 Nitroglycerin (Nitroglycerin (Sl Tab) 0.4 Mg) 1 tab Q5M PRN SL ANGINA Last administered on 11/30/18 10:24; Admin Dose 1 TAB; Start 11/29/18 at 07:00 Amlodipine Besylate (Norvasc) 5 mg BID PO Last administered on 12/05/18 08:12; Admin Dose 5 MG; Start 11/30/18 at 09:00 Azathioprine (Imuran) 100 mg DAILY PO Last administered on 12/05/18 08:13; Admin Dose 100 MG; Start 11/30/18 at 09:00 Cyclobenzaprine HCl (Flexeril) 10 mg TID PO Last administered on 12/05/18 08: 13; Admin Dose 10 MG; Start 11/30/18 at 09:00 Nadolol (Corgard) 20 mg BID PO Last administered on 12/05/18 08:13; Admin Dose 20 MG; Start 11/30/18 at 09:00 Tramadol HCl (Ultram) 50 mg Q4 PRN PO PAIN Last administered on 12/03/18 03:13; Admin Dose 50 MG; Start 11/30/18 at 00:00 Calcium/Vitamin D (Oyster Shell/ Vit-D (500/200)) 1 tab DAILY PO Last administered on 12/05/18 08:11; Admin Dose 1 TAB; Start 11/30/18 at 09:00 Sucralfate (Carafate Susp) 1 gm QID PO Last administered on 12/05/18 08:14; Admin Dose 1 GM; Start 11/30/18 at 09:00 Pantoprazole (Protonix Iv) 40 mg BID@06,18 IV Last administered on 12/04/18 17:05; Admin Dose 40 MG; Start 11/30/18 at 06:00 Metoclopramide HCl (Reglan) 10 mg Q6H PRN IV nausae Last administered on 11/30/18 12:09; Admin Dose 10 MG; Start 11/30/18 at 11:00 Colchicine (Colchicine) 0.6 mg BID PO Last administered on 12/05/18 08:13; Admin Dose 0.6 MG; Start 11/30/18 at 12:30 Cefepime HCl 50 ml @ 100 mls/hr Q12 IVPB Last administered on 12/05/18 08:14; Admin Dose 100 MLS/HR; Start 12/01/18 at 15:00 Linezolid 300 ml @ 300 mls/hr Q12 IVPB Last administered on 12/05/18 09:36; Admin Dose 300 MLS/HR; Start 12/01/18 at 21:00 Methylprednisolone Sodium Succinate (Solu-Medrol) 40 mg BID IV Last administered on 12/05/18 08:14; Admin Dose 40 MG; Start 12/02/18 at 09:00 Hydromorphone HCl (Dilaudid) 1 mg Q4H PRN IV SEVERE PAIN LEVEL 7-10 Last administered on 12/05/18 08:23; Admin Dose 1 MG; Start 12/02/18 at 12:30 Amylase/Lipase/ Protease (Creon ([id number])) 2 cap WITH MEALS PO Last administered on 12/05/18 08:13; Admin Dose 2 CAP; Start 12/02/18 at 18:00 JUSTICE CARBALLO 10, 2019 11:32
--- NOTE | 2018-12-05 14:25 | PN ---
Date/Time of Note Date/Time of Note DATE: 12/05/18 TIME: 14:19 Assessment/Plan VTE Prophylaxis Risk score (from Ns)>0 risk: 4 [place] [facility] [place] contraindicated: low risk/ambulating Pharmacological prophylaxis: NA/contraindicated Pharm contraindication: low risk/ambulating Lines/Catheters [facility] Saline Lock Urinary Cath still in place: No Assessment/Plan Assessment/Plan 1. SIRS- resolved - remains afebrile with nl WBC 2. Lupus flare - Rheumatology consultation appreciated and steroids on board 3. Acute pancreatitis - still with epigastric discomfort and pain with PO intake - GI on board and appreciate recommendations - Creon on board 4. Acute diarrhea - most likely from antibiotics - will start Lactobacillus with meals - deescalate antibiotics given improvement in PNA 5. Acute pericarditis - Cardiology input appreciated and cleared for downgrade - continue colchicine 6. Severe arthritis, rheumatoid - supportive care 7. Chronic SLE 8. History of extensive gastric ulcers - continue PPI 9. Hypertension - stable 10. History of splenectomy 11. Raynaud's syndrome 12. Chronic liver cirrhosis with history of Esophageal varices - not likely to be 2/2 to lupus per rheum, ?autoimmune hepatitis? - Last EGD and colonoscopy September 26, 2018 13. Parapneumonic effusion - Pulm on board and recommending PO antibiotics for d/c 14. Disposition - Will deescalate antibiotics and when tolerating PO intake and GI sx resolve, will d/c home Result Diagram: 12/05/18 0457 12/05/18 0457 Results 24hrs Laboratory Tests Test 12/05/18 04:57 White Blood Count 8.6 Red Blood Count 3.46 L Hemoglobin 9.0 L Hematocrit 30.0 L Mean Corpuscular Volume 86.7 Mean Corpuscular Hemoglobin 26.0 L Mean Corpuscular Hemoglobin Concent 30.0 L Red Cell Distribution Width 16.8 H Platelet Count 664 H Mean Platelet Volume 10.0 Immature Granulocytes % 1.200 H Neutrophils % 90.9 H Lymphocytes % 0.0 L Monocytes % 7.8 Eosinophils % 0.0 Basophils % 0.1 Nucleated Red Blood Cells % 9.3 H Immature Granulocytes # 0.100 H Neutrophils # 7.8 H Lymphocytes # 0.0 L Monocytes # 0.7 Eosinophils # 0.0 Basophils # 0.0 Nucleated Red Blood Cells # 0.8 H Sodium Level 140 Potassium Level 4.1 Chloride Level 106 Carbon Dioxide Level 28 Anion Gap 6 Blood Urea Nitrogen 23 H Creatinine 0.54 Est Glomerular Filtrat Rate mL/min > 60 Glucose Level 126 Calcium Level 8.8 Subjective 24 Hr Interval Summary Free Text/Dictation Patient still with epigastric discomfort that is worse with PO intake. Also with new diarrhea episode starting last night. States unable to make it to the bathroom at times as well. Exam/Review of Systems Exam Vitals Vital Signs Date Temp Pulse Resp B/P (MAP) Pulse Ox O2 O2 Flow FiO2 Time Delivery Rate 12/05/18 98.0 67 18 129/70 98 12:38 (89) 12/04/18 Room Air 15:30 Intake and Output 12/04/18 12/04/18 12/05/18 1515:00 23:00 07:00 IntakeIntake Total 1660 ml 400 ml BalanceBalance 1660 ml 400 ml Exam General: distress secondary to discomfort . Neck: supple Chest: nontender CVS: S1, S2, regular rate and rhythm. no murmurs Lungs: clear to auscultation bilaterally. no wheezing or rhonchi Abd: soft, epigastric tenderness, nondistended. no rebound or guarding. bowel sounds present diffusely Ext: moving all extremities. no cyanosis, clubbing, or edema Skin: warm, dry. no rashes or lesions appreciated Results Results 24hrs Laboratory Tests Test 12/05/18 04:57 White Blood Count 8.6 Red Blood Count 3.46 L Hemoglobin 9.0 L Hematocrit 30.0 L Mean Corpuscular Volume 86.7 Mean Corpuscular Hemoglobin 26.0 L Mean Corpuscular Hemoglobin Concent 30.0 L Red Cell Distribution Width 16.8 H Platelet Count 664 H Mean Platelet Volume 10.0 Immature Granulocytes % 1.200 H Neutrophils % 90.9 H Lymphocytes % 0.0 L Monocytes % 7.8 Eosinophils % 0.0 Basophils % 0.1 Nucleated Red Blood Cells % 9.3 H Immature Granulocytes # 0.100 H Neutrophils # 7.8 H Lymphocytes # 0.0 L Monocytes # 0.7 Eosinophils # 0.0 Basophils # 0.0 Nucleated Red Blood Cells # 0.8 H Sodium Level 140 Potassium Level 4.1 Chloride Level 106 Carbon Dioxide Level 28 Anion Gap 6 Blood Urea Nitrogen 23 H Creatinine 0.54 Est Glomerular Filtrat Rate mL/min > 60 Glucose Level 126 Calcium Level 8.8 Medications Medication Current Medications IV Flush (NS 3 ml) 3 ml PER PROTOCOL IV ; Start 11/29/18 at 07:00 Ondansetron HCl (Zofran Inj) 4 mg Q6H PRN IV NAUSEA/VOMITING Last administered on 12/05/18at 14:16; Admin Dose 4 MG; Start 11/29/18 at 07:00 Acetaminophen (Tylenol Tab) 650 mg Q6H PRN PO .PAIN 1-3 OR TEMP; Start 11/29/18 at 07:00 Acetaminophen/ Hydrocodone Bitart ([place] (5/325)) 1 tab Q6H PRN PO .MOD PAIN 4- 6 Last administered on 12/02/18at 11:08; Admin Dose 1 TAB; Start 11/29/18 at 07:00 Docusate Sodium (Colace) 100 mg Q12H PRN PO .CONSTIPATION; Start 11/29/18 at 07:00 Magnesium Hydroxide (Milk Of Mag) 30 ml DAILY PRN PO .CONSTIPATION; Start 11/29/18 at 07:00 Heparin Sodium (Porcine) (Heparin (5000 Units/1ml)) 5,000 unit Q12 SC Last administered on 12/05/18at 08:35; Admin Dose 5,000 UNIT; Start 11/29/18 at 09:00 Lorazepam (Ativan) 0.5 mg Q6H PRN IV ANXIETY; Start 11/29/18 at 07:00 Albuterol/ Ipratropium (Duoneb) 3 ml Q4H RESP THERAPY PRN HHN SHORTNESS OF BREATH; Start 11/29/18 at 07:00 Hydralazine HCl (Apresoline) 10 mg Q6H PRN IV for sys bp > 180; Start 11/29/18 at 07:00 Nitroglycerin (Nitroglycerin (Sl Tab) 0.4 Mg) 1 tab Q5M PRN SL ANGINA Last administered on 11/30/18at 10:24; Admin Dose 1 TAB; Start 11/29/18 at 07:00 Amlodipine Besylate (Norvasc) 5 mg BID PO Last administered on 12/05/18at 08:12; Admin Dose 5 MG; Start 11/30/18 at 09:00 Azathioprine (Imuran) 100 mg DAILY PO Last administered on 12/05/18 08:13; Admin Dose 100 MG; Start 11/30/18 at 09:00 Cyclobenzaprine HCl (Flexeril) 10 mg TID PO Last administered on 12/05/18 12:24; Admin Dose 10 MG; Start 11/30/18 at 09:00 Nadolol (Corgard) 20 mg BID PO Last administered on 12/05/18 08:13; Admin Dose 20 MG; Start 11/30/18 at 09:00 Tramadol HCl (Ultram) 50 mg Q4 PRN PO PAIN Last administered on 12/03/18 03:13; Admin Dose 50 MG; Start 11/30/18 at 00:00 Calcium/Vitamin D (Oyster Shell/ Vit-D (500/200)) 1 tab DAILY PO Last administered on 12/05/18 08:11; Admin Dose 1 TAB; Start 11/30/18 at 09:00 Sucralfate (Carafate Susp) 1 gm QID PO Last administered on 12/05/18 12:25; Admin Dose 1 GM; Start 11/30/18 at 09:00 Pantoprazole (Protonix Iv) 40 mg BID@06,18 IV Last administered on 12/04/18 17:05; Admin Dose 40 MG; Start 11/30/18 at 06:00 Metoclopramide HCl (Reglan) 10 mg Q6H PRN IV nausae Last administered on 11/30/18 12:09; Admin Dose 10 MG; Start 11/30/18 at 11:00 Colchicine (Colchicine) 0.6 mg BID PO Last administered on 12/05/18 08:13; Admin Dose 0.6 MG; Start 11/30/18 at 12:30 Cefepime HCl 50 ml @ 100 mls/hr Q12 IVPB Last administered on 12/05/18 08:14; Admin Dose 100 MLS/HR; Start 12/01/18 at 15:00 Linezolid 300 ml @ 300 mls/hr Q12 IVPB Last administered on 12/05/18 09:36; Admin Dose 300 MLS/HR; Start 12/01/18 at 21:00 Methylprednisolone Sodium Succinate (Solu-Medrol) 40 mg BID IV Last administered on 6/10/19at 08:14; Admin Dose 40 MG; Start 12/02/18 at 09:00 Hydromorphone HCl (Dilaudid) 1 mg Q4H PRN IV SEVERE PAIN LEVEL 7-10 Last administered on 12/05/18at 14:17; Admin Dose 1 MG; Start 12/02/18 at 12:30 Amylase/Lipase/ Protease (Creon ([id number])) 2 cap WITH MEALS PO Last administered on 12/05/18at 12:25; Admin Dose 2 CAP; Start 12/02/18 at 18:00 Lactobacillus Acidophilus/ Rhamnosus (Culturelle) 1 cap WITH MEALS PO ; Start 12/05/18 at 18:00 GENESIS GANDARA MD Dec 05, 2018 14:25
--- NOTE | 2018-12-05 15:25 | PN ---
Date/Time of Note Date/Time of Note DATE: 12/05/18 TIME: 15:23 Assessment/Plan VTE Prophylaxis Risk score (from Nsg)>0 risk: 4 SCD applied (from Nsg): No SCD contraindicated: other (scds) Pharmacological prophylaxis: other (scds) Lines/Catheters IV [facility] Type (from [facility] Saline Lock Urinary Cath still in place: No Assessment/Plan Hospital Course Assessment/Plan Assessment: Epigastric pain-with radiation to left upper quadrant and left flank/back -CT is concerning for pancreatitis, however lipase and amylase WNL Left pleural effusion Diarrhea Pericardial effusion, moderate -Echocardiogram - Small to borderline moderate circumferential pericardial ef fusion without evidence of tamponade. EF 55% Normocytic Anemia Thrombocytosis Recent History Hematemesis EGD 11/15/2018 Extensive ulceration of the distal esophagus, rule out opportunistic infectio n, biopsies obtained. Grade II/IV esophageal varices. No stigmata of recent bleeding. No therapeu tic intervention required Mild gastritis versus portal gastropathy, Otherwise normal EGD Stomach biopsy negative for H. pylori infection, no evidence of intestinal metaplasia, dysplasia, or malignancy Esophageal ulcer biopsy mucosa showing moderate chronic inflammation no squamous mucosa is present. No goblet cells are identified, no H. pylori is identified, no evidence of dysplasia or malignancy SLE/Rheumatoid arthritis/Raynaud's syndrome -On prednisone. History of Splenectomy Depression HTN Hx of EGD/colonoscopy 09/26/18 Colonoscopy 09/26/2018colitis more significant in the area of the rectum moderate size internal hemorrhoidsbiopsy negative for evidence of colitis EGD grade II/IV esophageal varices, severe gastritisbiopsies negative for H. pylori Liver cirrhosis- with hx of EV -Hepatitis serology negative -ASMA,AMA- negative Status post finger amputation secondary to Raynaud's syndrome Leukocytosis currently on steroid therapy Plan: Probiotics CT abdomen/pelvis with p.o./IV contrast Recommend agents based on clinical course Patient seen in collaboration with Subjective: Course reviewed with nursing staff Patient interviewed and examined All labs, imaging and other results reviewed Patient continues to complain of epigastric pain with radiation to the left quadrant/flank area. Pain is worse after eating. Patient continues to have loose stool as well given results of last colonoscopy showing some colitis we will repeat CT scan of the abdomen pelvis with contrast pending those results will provide further recommendations Exam PHYSICAL EXAMINATION: GENERAL: Chronically ill appearing young woman, alert & oriented x 3, edema/swelling from chronic steroid use SKIN: No lesions. HEAD: Normocephalic, atraumatic, no tenderness. EYES: Pupils equal reactive to light, no discharge. EARS/NOSE AND THROAT: Ears normal, nose normal. NECK: Supple, no masses, thyroid normal. CHEST: Inspection within normal limits. CARDIOVASCULAR: Heart: Regular rate and rhythm RESPIRATORY: Lungs clear to auscultation. GASTROINTESTINAL AND LIVER: Abdomen: obese, soft, epigastric tenderness, non- distended, no hernias, no masses, normoactive bowel sounds. Rectal: Deferred. EXTREMITIES: No cyanosis, clubbing or edema. Right index finger amputated 1 phalanx Result Diagram: 12/05/1845612/05/18456 Results 24hrs Laboratory Tests Test 12/05/18 04:57 White Blood Count 8.6 Red Blood Count 3.46 L Hemoglobin 9.0 L Hematocrit 30.0 L Mean Corpuscular Volume 86.7 Mean Corpuscular Hemoglobin 26.0 L Mean Corpuscular Hemoglobin Concent 30.0 L Red Cell Distribution Width 16.8 H Platelet Count 664 H Mean Platelet Volume 10.0 Immature Granulocytes % 1.200 H Neutrophils % 90.9 H Lymphocytes % 0.0 L Monocytes % 7.8 Eosinophils % 0.0 Basophils % 0.1 Nucleated Red Blood Cells % 9.3 H Immature Granulocytes # 0.100 H Neutrophils # 7.8 H Lymphocytes # 0.0 L Monocytes # 0.7 Eosinophils # 0.0 Basophils # 0.0 Nucleated Red Blood Cells # 0.8 H Sodium Level 140 Potassium Level 4.1 Chloride Level 106 Carbon Dioxide Level 28 Anion Gap 6 Blood Urea Nitrogen 23 H Creatinine 0.54 Est Glomerular Filtrat Rate mL/min > 60 Glucose Level 126 Calcium Level 8.8 Exam/Review of Systems Exam Vitals Vital Signs Date Temp Pulse Resp B/P (MAP) Pulse Ox O2 O2 Flow FiO2 Time Delivery Rate 12/05/18 98.0 67 18 129/70 98 12:38 (89) 12/04/18 Room Air 15:30 Intake and Output 12/04/18 12/04/18 12/05/18 1515:00 23:00 07:00 IntakeIntake Total 1660 ml 400 ml BalanceBalance 1660 ml 400 ml Results Results 24hrs Laboratory Tests Test 12/05/18 04:57 White Blood Count 8.6 Red Blood Count 3.46 L Hemoglobin 9.0 L Hematocrit 30.0 L Mean Corpuscular Volume 86.7 Mean Corpuscular Hemoglobin 26.0 L Mean Corpuscular Hemoglobin Concent 30.0 L Red Cell Distribution Width 16.8 H Platelet Count 664 H Mean Platelet Volume 10.0 Immature Granulocytes % 1.200 H Neutrophils % 90.9 H Lymphocytes % 0.0 L Monocytes % 7.8 Eosinophils % 0.0 Basophils % 0.1 Nucleated Red Blood Cells % 9.3 H Immature Granulocytes # 0.100 H Neutrophils # 7.8 H Lymphocytes # 0.0 L Monocytes # 0.7 Eosinophils # 0.0 Basophils # 0.0 Nucleated Red Blood Cells # 0.8 H Sodium Level 140 Potassium Level 4.1 Chloride Level 106 Carbon Dioxide Level 28 Anion Gap 6 Blood Urea Nitrogen 23 H Creatinine 0.54 Est Glomerular Filtrat Rate mL/min > 60 Glucose Level 126 Calcium Level 8.8 Medications Medication Current Medications IV Flush (NS 3 ml) 3 ml PER PROTOCOL IV ; Start 11/29/18 at 07:00 Ondansetron HCl (Zofran Inj) 4 mg Q6H PRN IV NAUSEA/VOMITING Last administered on 12/05/18at 14:16; Admin Dose 4 MG; Start 11/29/18 at 07:00 Acetaminophen (Tylenol Tab) 650 mg Q6H PRN PO .PAIN 1-3 OR TEMP; Start 11/29/18 at 07:00 Acetaminophen/ Hydrocodone Bitart ([place] (5/325)) 1 tab Q6H PRN PO .MOD PAIN 4- 6 Last administered on 12/02/18at 11:08; Admin Dose 1 TAB; Start 11/29/18 at 07:00 Docusate Sodium (Colace) 100 mg Q12H PRN PO .CONSTIPATION; Start 11/29/18 at 07:00 Magnesium Hydroxide (Milk Of Mag) 30 ml DAILY PRN PO .CONSTIPATION; Start 11/29/18 at 07:00 Heparin Sodium (Porcine) (Heparin (5000 Units/1ml)) 5,000 unit Q12 SC Last administered on 12/05/18at 08:35; Admin Dose 5,000 UNIT; Start 11/29/18 at 09:00 Lorazepam (Ativan) 0.5 mg Q6H PRN IV ANXIETY; Start 11/29/18 at 07:00 Albuterol/ Ipratropium (Duoneb) 3 ml Q4H RESP THERAPY PRN HHN SHORTNESS OF BREATH; Start 11/29/18 at 07:00 Hydralazine HCl (Apresoline) 10 mg Q6H PRN IV for sys bp > 180; Start 11/29/18 at 07:00 Nitroglycerin (Nitroglycerin (Sl Tab) 0.4 Mg) 1 tab Q5M PRN SL ANGINA Last administered on 11/30/18 10:24; Admin Dose 1 TAB; Start 11/29/18 at 07:00 Amlodipine Besylate (Norvasc) 5 mg BID PO Last administered on 12/05/18 08:12; Admin Dose 5 MG; Start 11/30/18 at 09:00 Azathioprine (Imuran) 100 mg DAILY PO Last administered on 12/05/18 08:13; Admin Dose 100 MG; Start 11/30/18 at 09:00 Cyclobenzaprine HCl (Flexeril) 10 mg TID PO Last administered on 12/05/18 12:24; Admin Dose 10 MG; Start 11/30/18 at 09:00 Nadolol (Corgard) 20 mg BID PO Last administered on 12/05/18 08:13; Admin Dose 20 MG; Start 11/30/18 at 09:00 Tramadol HCl (Ultram) 50 mg Q4 PRN PO PAIN Last administered on 12/03/18 03:13; Admin Dose 50 MG; Start 11/30/18 at 00:00 Calcium/Vitamin D (Oyster Shell/ Vit-D (500/200)) 1 tab DAILY PO Last administered on 12/05/18 08:11; Admin Dose 1 TAB; Start 11/30/18 at 09:00 Sucralfate (Carafate Susp) 1 gm QID PO Last administered on 12/05/18 12:25; Admin Dose 1 GM; Start 11/30/18 at 09:00 Pantoprazole (Protonix Iv) 40 mg BID@,18 IV Last administered on 12/04/18 17:05; Admin Dose 40 MG; Start 11/30/18 at 06:00 Metoclopramide HCl (Reglan) 10 mg Q6H PRN IV nausae Last administered on 11/30/18 12:09; Admin Dose 10 MG; Start 11/30/18 at 11:00 Colchicine (Colchicine) 0.6 mg BID PO Last administered on 12/05/18 08:13; Admin Dose 0.6 MG; Start 11/30/18 at 12:30 Linezolid 300 ml @ 300 mls/hr Q12 IVPB Last administered on 12/05/18 09:36; Admin Dose 300 MLS/HR; Start 12/01/18 at 21:00; Stop 12/05/18 at 23:55 Methylprednisolone Sodium Succinate (Solu-Medrol) 40 mg BID IV Last administered on 12/05/18 08:14; Admin Dose 40 MG; Start 12/02/18 at 09:00 Hydromorphone HCl (Dilaudid) 1 mg Q4H PRN IV SEVERE PAIN LEVEL 7-10 Last administered on 12/05/18 14:17; Admin Dose 1 MG; Start 12/02/18 at 12:30 Amylase/Lipase/ Protease (Creon ([id number])) 2 cap WITH MEALS PO Last adm inistered on 12/05/18at 12:25; Admin Dose 2 CAP; Start 12/02/18 at 18:00 Lactobacillus Acidophilus/ Rhamnosus (Culturelle) 1 cap WITH MEALS PO ; Start 12/05/18 at 18:00 Amoxicillin (Amoxicillin) 500 mg BID PO ; Start 12/06/18 at 09:00 Levofloxacin (Levaquin) 750 mg DAILY@06 PO ; Start 12/06/18 at 06:00 MONIQUE DE LA ROSA Dec 05, 2018 15:25
--- NOTE | 2018-12-05 16:06 | CONS ---
Consult Date/Type/Reason Admit Date/Time Nov 29, 2018 at 06:15 Initial Consult Date 12/01/18 Type of Consultation: Rheumatology Date/Time of Note DATE: 12/05/18 TIME: 16:01 Subjective Patione continues with right upper quadrant pain Objective Vitals Vital Signs Date Temp Pulse Resp B/P (MAP) Pulse Ox O2 O2 Flow FiO2 Time Delivery Rate 12/05/18 98.0 67 18 135/76 98 15:47 (95) 12/04/18 Room Air 15:30 Intake and Output 12/04/18 12/04/18 12/05/18 1515:00 23:00 07:00 IntakeIntake Total 1660 ml 400 ml BalanceBalance 1660 ml 400 ml Exam GENERAL: Alert and oriented in no acute distress, SKIN: No rashes or new lesions. HEENT: No acute oral or ocular lesions. NECK: Supple. No lymphadenopathy. CARDIOVASCULAR: Regular rate and rhythm. LUNGS: Clear to auscultation bilaterally. No wheezing or rhonchi. ABDOMEN: Soft, mild epigastric tenderness. No rebound tenderness. Bowel sounds are present. EXTREMITIES: No Edema. Mild cyanosis fingers. MUSCULOSKELETAL: No synovitis NEUROL: Grossly intact Results/Medications Result Diagram: 12/05/18 0457 12/05/18 0457 Results 24 hrs Laboratory Tests Test 12/05/18 04:57 White Blood Count 8.6 Red Blood Count 3.46 L Hemoglobin 9.0 L Hematocrit 30.0 L Mean Corpuscular Volume 86.7 Mean Corpuscular Hemoglobin 26.0 L Mean Corpuscular Hemoglobin Concent 30.0 L Red Cell Distribution Width 16.8 H Platelet Count 664 H Mean Platelet Volume 10.0 Immature Granulocytes % 1.200 H Neutrophils % 90.9 H Lymphocytes % 0.0 L Monocytes % 7.8 Eosinophils % 0.0 Basophils % 0.1 Nucleated Red Blood Cells % 9.3 H Immature Granulocytes # 0.100 H Neutrophils # 7.8 H Lymphocytes # 0.0 L Monocytes # 0.7 Eosinophils # 0.0 Basophils # 0.0 Nucleated Red Blood Cells # 0.8 H Sodium Level 140 Potassium Level 4.1 Chloride Level 106 Carbon Dioxide Level 28 Anion Gap 6 Blood Urea Nitrogen 23 H Creatinine 0.54 Est Glomerular Filtrat Rate mL/min > 60 Glucose Level 126 Calcium Level 8.8 Home Meds Active Scripts Cyclobenzaprine Hcl* (Cyclobenzaprine Hcl*) 10 Mg Tablet, 10 MG PO TID, #15 TAB Prov:MICKY CHAN MD 11/26/18 Tramadol HCl (Tramadol HCl) 50 Mg Tablet, 50 MG PO Q4 PRN for PAIN, #20 TAB Prov:MICKY CHAN MD 11/26/18 Ondansetron Hcl* (Zofran*) 8 Mg Tablet, 8 MG PO Q6H PRN for NAUSEA AND OR VOMITING, #20 TAB Prov:JENNY RAWLS MD 11/20/18 Levofloxacin* (Levaquin*) 750 Mg Tablet, 750 MG PO DAILY for 7 Days, TAB Prov:JENNY RAWLS MD 11/20/18 Sucralfate* (Carafate*) 1 Gm/10 Ml Susp, 1 GM PO QID for 30 Days, #1 EA 2 Refills Prov:LIUDMILA DUMONT MD 11/17/18 Metoclopramide Hcl* (Metoclopramide Hcl*) 10 Mg Tablet, 10 MG PO QID for 10 Days, #40 TAB Prov:LIUDMILA DUMONT MD 11/17/18 Acetaminophen* (Tylenol*) 325 Mg Tablet, 650 MG PO Q6H PRN for .PAIN 1-3 OR TEMP for 1 Day, TAB Prov:LIUDMILA DUMONT MD 11/17/18 Nadolol (Corgard) 40 Mg Tablet, 20 MG PO BID for 15 Days, #30 TAB Prov:LIUDMILA DUMONT MD 11/17/18 Pantoprazole* (Pantoprazole*) 40 Mg Tablet.dr, 40 MG PO BID@06,18 for 30 Days, #60 TAB 1 Refill Prov:LIUDMILA DUMONT MD 11/17/18 Reported Medications Amlodipine Besylate* (Amlodipine Besylate*) 10 Mg Tablet, 5 MG PO BID, #30 TAB 11/29/18 Calcium Carbonate/Vitamin D3 (Calcium 500 mg Chewable Tablet) 1 Each Tab.chew, 1 EACH PO DAILY, TAB.CHEW 11/14/18 Prednisone* (Prednisone*) 5 Mg Tab, 5 MG PO DAILY, TAB 11/14/18 Azathioprine* (Imuran*) 50 Mg Tab, 100 MG PO DAILY, TAB 11/14/18 Ergocalciferol (Vitamin D2) (VITAMIN D2) 50,000 Unit Capsule, 92827 UNIT PO QMONDAY 09/22/18 Medications Current Medications IV Flush (NS 3 ml) 3 ml PER PROTOCOL IV ; Start 11/29/18 at 07:00 Ondansetron HCl (Zofran Inj) 4 mg Q6H PRN IV NAUSEA/VOMITING Last administered on 12/05/18at 14:16; Admin Dose 4 MG; Start 11/29/18 at 07:00 Acetaminophen (Tylenol Tab) 650 mg Q6H PRN PO .PAIN 1-3 OR TEMP; Start 11/29/18 at 07:00 Acetaminophen/ Hydrocodone Bitart ([place] (5/325)) 1 tab Q6H PRN PO .MOD PAIN 4- 6 Last administered on 12/02/18at 11:08; Admin Dose 1 TAB; Start 11/29/18 at 07:00 Docusate Sodium (Colace) 100 mg Q12H PRN PO .CONSTIPATION; Start 11/29/18 at 07:00 Magnesium Hydroxide (Milk Of Mag) 30 ml DAILY PRN PO .CONSTIPATION; Start 11/29/18 at 07:00 Heparin Sodium (Porcine) (Heparin (5000 Units/1ml)) 5,000 unit Q12 SC Last administered on 12/05/18at 08:35; Admin Dose 5,000 UNIT; Start 11/29/18 at 09:00 Lorazepam (Ativan) 0.5 mg Q6H PRN IV ANXIETY; Start 11/29/18 at 07:00 Albuterol/ Ipratropium (Duoneb) 3 ml Q4H RESP THERAPY PRN HHN SHORTNESS OF BREATH; Start 11/29/18 at 07:00 Hydralazine HCl (Apresoline) 10 mg Q6H PRN IV for sys bp > 180; Start 11/29/18 at 07:00 Nitroglycerin (Nitroglycerin (Sl Tab) 0.4 Mg) 1 tab Q5M PRN SL ANGINA Last administered on 11/30/18at 10:24; Admin Dose 1 TAB; Start 11/29/18 at 07:00 Amlodipine Besylate (Norvasc) 5 mg BID PO Last administered on 12/05/18at 08:12; Admin Dose 5 MG; Start 11/30/18 at 09:00 Azathioprine (Imuran) 100 mg DAILY PO Last administered on 12/05/18 08:13; Admin Dose 100 MG; Start 11/30/18 at 09:00 Cyclobenzaprine HCl (Flexeril) 10 mg TID PO Last administered on 12/05/18 12:24; Admin Dose 10 MG; Start 11/30/18 at 09:00 Nadolol (Corgard) 20 mg BID PO Last administered on 12/05/18 08:13; Admin Dose 20 MG; Start 11/30/18 at 09:00 Tramadol HCl (Ultram) 50 mg Q4 PRN PO PAIN Last administered on 12/03/18 03:13; Admin Dose 50 MG; Start 11/30/18 at 00:00 Calcium/Vitamin D (Oyster Shell/ Vit-D (500/200)) 1 tab DAILY PO Last administered on 12/05/18 08:11; Admin Dose 1 TAB; Start 11/30/18 at 09:00 Sucralfate (Carafate Susp) 1 gm QID PO Last administered on 12/05/18 12:25; Admin Dose 1 GM; Start 11/30/18 at 09:00 Metoclopramide HCl (Reglan) 10 mg Q6H PRN IV nausae Last administered on 11/30/18 12:09; Admin Dose 10 MG; Start 11/30/18 at 11:00 Colchicine (Colchicine) 0.6 mg BID PO Last administered on 12/05/18 08:13; Admin Dose 0.6 MG; Start 11/30/18 at 12:30 Linezolid 300 ml @ 300 mls/hr Q12 IVPB Last administered on 12/05/18 09:36; Admin Dose 300 MLS/HR; Start 12/01/18 at 21:00; Stop 12/05/18 at 23:55 Methylprednisolone Sodium Succinate (Solu-Medrol) 40 mg BID IV Last administered on 12/05/18 08:14; Admin Dose 40 MG; Start 12/02/18 at 09:00 Hydromorphone HCl (Dilaudid) 1 mg Q4H PRN IV SEVERE PAIN LEVEL 7-10 Last administered on 12/05/18 14:17; Admin Dose 1 MG; Start 12/02/18 at 12:30 Amylase/Lipase/ Protease (Creon ([id number])) 2 cap WITH MEALS PO Last administered on 12/05/18at 12:25; Admin Dose 2 CAP; Start 12/02/18 at 18:00 Lactobacillus Acidophilus/ Rhamnosus (Culturelle) 1 cap WITH MEALS PO ; Start 12/05/18 at 18:00 Amoxicillin (Amoxicillin) 500 mg BID PO ; Start 12/06/18 at 09:00 Levofloxacin (Levaquin) 750 mg DAILY@06 PO ; Start 12/06/18 at 06:00 Pantoprazole (Protonix Tab) 40 mg BID@06,18 PO ; Start 12/05/18 at 18:00 Assessment/Plan Hospital Course (Demo Recall) Assessment/ Plan: 1. Probable pneumonia Improving. 2.. Lupus flare possibly. Agree with decreasing steroids as clinically improving. Decrease Solumedro, to 20 mg BID 3.. 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 Repeat an echo per cardiology. Continue the colchicine 0.6 b.i.d. 4.. Pancreatitis. The patient seems to be improving. 5.. Pleural effusion. Appears to be more consistent with infection rather than Lupus flare, per Pulmonary. 6. Cirrhosis with esophageal varices. LFTs are within normal limits. We will just continue to follow. 7. Raynaud's syndrome, status post finger amputation. Raynaud's precautions. LILY AGRAWAL MD Dec 05, 2018 16:06
[2018-12-05] MEDS: PANTOPRAZOLE (EC) 40 MG TAB PO SCH (17:34)
[2018-12-05] MEDS: LACTOBACILLUS RHAMNOSUS CAP PO SCH (17:34)
[2018-12-05] MEDS: METOCLOPRAMIDE 10 MG INJ IV PRN (18:50)
[2018-12-06 01:00] VITALS: BP 114/59; PULSE 50; RESP 18
[2018-12-06] MEDS: METOCLOPRAMIDE 10 MG INJ IV PRN (02:23)
[2018-12-06] MEDS: HYDROmorphONE 1 MG/ML SYG IV PRN ×4 (02:23→21:23)
[2018-12-06] MEDS: LEVOFLOXACIN 750 MG TABLET PO SCH (05:40)
[2018-12-06] MEDS: PANTOPRAZOLE (EC) 40 MG TAB PO SCH ×2 (05:40→17:51)
[2018-12-06 07:56] VITALS: BP 124/74; PULSE 58; RESP 18
[2018-12-06] MEDS: AMLODIPINE 10 MG TAB PO SCH ×2 (08:33→21:22)
[2018-12-06] MEDS: METHYLPREDNISOLONE 40 MG INJ IV SCH ×2 (08:33→21:21)
[2018-12-06] MEDS: AMOXICILLIN 500 MG CAP PO SCH ×2 (08:34→21:22)
[2018-12-06] MEDS: COLCHICINE 0.6 MG TAB PO SCH ×2 (08:34→21:22)
[2018-12-06] MEDS: CREON (24K-76K-120K) 1 CAP PO SCH ×3 (08:34→17:51)
[2018-12-06] MEDS: NADOLOL 40 MG TAB PO SCH ×2 (08:34→21:00)
[2018-12-06] MEDS: LACTOBACILLUS RHAMNOSUS CAP PO SCH ×3 (08:34→17:51)
[2018-12-06] MEDS: CYCLOBENZAPRINE 10 MG TAB PO SCH ×3 (08:34→21:22)
[2018-12-06] MEDS: CALCIUM/VITAMIN D (500/200) TAB PO SCH (08:34)
[2018-12-06] MEDS: AZATHIOPRINE 50 MG TAB PO SCH (08:35)
[2018-12-06] MEDS: HEPARIN 5,000 UNIT/1 ML VIAL SC SCH ×2 (08:41→21:32)
[2018-12-06] MEDS ORDERED: DOXYCYCLINE 100 MG TAB PO SCH (09:00)
[2018-12-06] MEDS: SUCRALFATE (100 MG/ML) 10ML CUP PO SCH ×4 (10:01→21:22)
--- NOTE | 2018-12-06 10:44 | CONS ---
Assessment/Plan Assessment/Plan Hospital Course (Demo Recall) Chest x-ray showing interval resolution of left lower lobe pneumonia and pleural effusion. Assessment recommendations; 1. Patient with history of SLE admitted with left lower lobe pneumonia with complicated left pleural effusion with marked overall interval clinical and radiological resolution. 2. Chronic immunosuppression 3. Small pericardial effusion 4. History of laparotomy with splenectomy. Continue current supportive care. Consider discharge of antibiotics. Consultation Date/Type/Reason Admit Date/Time Nov 29, 2018 at 06:15 Initial Consult Date 12/01/18 Type of Consult Pulmonary Patient is a very pleasant 39-year-old lady who came into the hospital with a few days history of coughing high fever and mild shortness of breath. Patient also been complaining of abdominal pain without any nausea vomiting. Upon evaluation a chest x-ray was done which showed left lower lobe infiltrate, patient subsequently had a CT of the chest done which is showing a partially loculated left pleural effusion with infiltrative changes in the left lower lobe. Patient feeling somewhat better since admission and reporting significant reduction in abdominal pain. According to the patient the fever was as high as 101 F few days ago. Patient denies any prior history of pneumonia or any pleural effusion. Past medical history; 1. SLE. 2. Chronic immunosuppression with prednisone and Imuran. 3. No history of any pleural effusion or any history of serositis. 4. 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 5. History of splenectomy with laparotomy. Medications; reviewed. Allergies; as outlined above. Social history; most of any alcohol drug or tobacco abuse. Family history; noncontributory. Occupational history; patient is on disability. Review of systems; denies any h eadache, seizures, visual changes. Any sore throat, dysphagia, Complains of mild left lateral chest pain. Complains of cough with fever. Denies any sputum production hemoptysis. Abdominal pain is markedly improved. Denies any nausea vomiting. Any diarrhea, constipation, melena, hematochezia. Any urinary symptoms. Any skin changes or any new arthritis symptoms. Denies any weight loss. General exam; young female awake alert currently no distress. Date/Time of Note DATE: 12/06/18 TIME: 10:42 24 HR Interval Summary Free Text/Dictation Patient's condition is stable. Denies any chest pain, shortness of breath, coughing, wheezing any fever. Complains of occasional upper abdominal pain which is worse after eating. But denies any nausea vomiting. General exam; young female, awake alert, currently in no distress. On room air. H EENT exam; supple neck, no JVD. Patient has good dentition. No neck masses. Chest exam; clear to auscultation. S1-S2 audible, no murmurs. Regular rhythm. Abdomen exam; soft, nontender. There is a well-healed laparotomy scar. Bowel sounds audible. Extremity exam; no peripheral edema clubbing. MANAGING MEMBER exam; no focal deficit. Assessment and recommendations; 1. Patient with history of SLE admitted with left lower lobe pneumonia with complicated left parapneumonic effusion, too small to have a thoracentesis with marked overall clinical and radiological improvement. 2. History of prior splenectomy with laparotomy. 3. Pericardial effusion on presentation with marked interval improvement on re peat echocardiogram. 4. Mild anemia. 5. History of chronic immunosuppression. 6. Gastritis, patient had EGD done at another facility prior to presentation. Currently on appropriate treatment regimen. Continue current supportive care. Consider discharge of antibiotics. Resume outpatient prednisone dosing. Follow-up with primary care physician in 1 week. Exam/Review of Systems Exam Vitals Vital Signs Date Temp Pulse Resp B/P (MAP) Pulse Ox O2 O2 Flow FiO2 Time Delivery Rate 12/06/18 98.2 58 18 124/74 94 Room Air 07:56 (91) Intake and Output 12/05/18 12/05/18 12/06/18 1515:00 23:00 07:00 IntakeIntake Total 670 ml 300 ml BalanceBalance 670 ml 300 ml Results Result Diagram: 12/06/18 0452 12/06/18 0452 Results 24hrs Laboratory Tests Test 12/06/18 04:52 White Blood Count 12.4 #H Red Blood Count 3.51 L Hemoglobin 9.2 L Hematocrit 30.5 L Mean Corpuscular Volume 86.9 Mean Corpuscular Hemoglobin 26.2 L Mean Corpuscular Hemoglobin Concent 30.2 L Red Cell Distribution Width 16.8 H Platelet Count 595 H Mean Platelet Volume 9.9 Immature Granulocytes % 1.300 H Neutrophils % 88.2 H Lymphocytes % 1.0 L Monocytes % 9.3 Eosinophils % 0.1 Basophils % 0.1 Nucleated Red Blood Cells % 8.2 H Immature Granulocytes # 0.160 H Neutrophils # 10.9 H Lymphocytes # 0.1 L Monocytes # 1.2 H Eosinophils # 0.0 Basophils # 0.0 Nucleated Red Blood Cells # 1.0 H Sodium Level 139 Potassium Level 4.1 Chloride Level 105 Carbon Dioxide Level 29 Anion Gap 5 Blood Urea Nitrogen 21 H Creatinine 0.52 Est Glomerular Filtrat Rate mL/min > 60 Glucose Level 110 Calcium Level 8.6 Medications Medication Current Medications IV Flush (NS 3 ml) 3 ml PER PROTOCOL IV ; Start 11/29/18 at 07:00 Ondansetron HCl (Zofran Inj) 4 mg Q6H PRN IV NAUSEA/VOMITING Last administered on 12/05/18at 14:16; Admin Dose 4 MG; Start 11/29/18 at 07:00 Acetaminophen (Tylenol Tab) 650 mg Q6H PRN PO .PAIN 1-3 OR TEMP; Start 11/29/18 at 07:00 Acetaminophen/ Hydrocodone Bitart ([place] (5/325)) 1 tab Q6H PRN PO .MOD PAIN 4- 6 Last administered on 12/02/18at 11:08; Admin Dose 1 TAB; Start 11/29/18 at 07:00 Docusate Sodium (Colace) 100 mg Q12H PRN PO .CONSTIPATION; Start 11/29/18 at 07:00 Magnesium Hydroxide (Milk Of Mag) 30 ml DAILY PRN PO .CONSTIPATION; Start 11/29/18 at 07:00 Heparin Sodium (Porcine) (Heparin (5000 Units/1ml)) 5,000 unit Q12 SC Last administered on 12/06/18at 08:41; Admin Dose 5,000 UNIT; Start 11/29/18 at 09:00 Lorazepam (Ativan) 0.5 mg Q6H PRN IV ANXIETY; Start 11/29/18 at 07:00 Albuterol/ Ipratropium (Duoneb) 3 ml Q4H RESP THERAPY PRN HHN SHORTNESS OF BREATH; Start 11/29/18 at 07:00 Hydralazine HCl (Apresoline) 10 mg Q6H PRN IV for sys bp > 180; Start 11/29/18 at 07:00 Nitroglycerin (Nitroglycerin (Sl Tab) 0.4 Mg) 1 tab Q5M PRN SL ANGINA Last administered on 11/30/18at 10:24; Admin Dose 1 TAB; Start 11/29/18 at 07:00 Amlodipine Besylate (Norvasc) 5 mg BID PO Last administered on 12/06/18 08:33; Admin Dose 5 MG; Start 11/30/18 at 09:00 Azathioprine (Imuran) 100 mg DAILY PO Last administered on 12/06/18 08:35; Admin Dose 100 MG; Start 11/30/18 at 09:00 Cyclobenzaprine HCl (Flexeril) 10 mg TID PO Last administered on 12/06/18 08:34; Admin Dose 10 MG; Start 11/30/18 at 09:00 Nadolol (Corgard) 20 mg BID PO Last administered on 12/06/18 08:34; Admin Dose 20 MG; Start 11/30/18 at 09:00 Tramadol HCl (Ultram) 50 mg Q4 PRN PO PAIN Last administered on 12/03/18 03:13; Admin Dose 50 MG; Start 11/30/18 at 00:00 Calcium/Vitamin D (Oyster Shell/ Vit-D (500/200)) 1 tab DAILY PO Last administered on 12/06/18 08:34; Admin Dose 1 TAB; Start 11/30/18 at 09:00 Sucralfate (Carafate Susp) 1 gm QID PO Last administered on 12/06/18 10:01; Admin Dose 1 GM; Start 11/30/18 at 09:00 Metoclopramide HCl (Reglan) 10 mg Q6H PRN IV nausae Last administered on 12/06/18 02:23; Admin Dose 10 MG; Start 11/30/18 at 11:00 Colchicine (Colchicine) 0.6 mg BID PO Last administered on 12/06/18 08:34; Admin Dose 0.6 MG; Start 11/30/18 at 12:30 Hydromorphone HCl (Dilaudid) 1 mg Q4H PRN IV SEVERE PAIN LEVEL 7-10 Last administered on 12/06/18 10:01; Admin Dose 1 MG; Start 12/02/18 at 12:30 Amylase/Lipase/ Protease (Creon ([id number])) 2 cap WITH MEALS PO Last administered on 12/06/18 08:34; Admin Dose 2 CAP; Start 12/02/18 at 18:00 Lactobacillus Acidophilus/ Rhamnosus (Culturelle) 1 cap WITH MEALS PO Last administered on 12/06/18 08:34; Admin Dose 1 CAP; Start 12/05/18 at 18:00 Amoxicillin (Amoxicillin) 500 mg BID PO Last administered on 12/06/18 08:34; Admin Dose 500 MG; Start 12/06/18 at 09:00 Levofloxacin (Levaquin) 750 mg DAILY@06 PO Last administered on 12/06/18 05:40; Admin Dose 750 MG; Start 12/06/18 at 06:00 Pantoprazole (Protonix Tab) 40 mg BID@06,18 PO Last administered on 12/06/18 05:40; Admin Dose 40 MG; Start 12/05/18 at 18:00 Methylprednisolone Sodium Succinate (Solu-Medrol) 20 mg BID IV Last administered on 12/06/18 08:33; Admin Dose 20 MG; Start 12/05/18 at 21:00 JUSTICE CARBALLO Dec 06, 2018 10:44
[2018-12-06] MEDS ORDERED: BARIUM SULF 2% 450 ML BTL (BERRY SMOOTHIE) PO ONE ×3 (12:30→16:00)
--- NOTE | 2018-12-06 13:37 | CONS ---
Consult Date/Type/Reason Admit Date/Time Nov 29, 2018 at 06:15 Initial Consult Date 12/01/18 Type of Consultation: Rheumatology Date/Time of Note DATE: 12/06/18 TIME: 13:34 Subjective No new complaints. Intermittent abd pain as before. Objective Vitals Vital Signs Date Temp Pulse Resp B/P (MAP) Pulse Ox O2 O2 Flow FiO2 Time Delivery Rate 12/06/18 98.2 58 18 124/74 94 Room Air 07:56 (91) Intake and Output 12/05/18 12/05/18 12/06/18 1515:00 23:00 07:00 IntakeIntake Total 670 ml 300 ml BalanceBalance 670 ml 300 ml Exam GENERAL: Alert and oriented in no acute distress, SKIN: No rashes or new lesions. HEENT: No acute oral or ocular lesions. NECK: Supple. No lymphadenopathy. CARDIOVASCULAR: Regular rate and rhythm. LUNGS: Clear to auscultation bilaterally. No wheezing or rhonchi. ABDOMEN: Soft, mild epigastric tenderness. No rebound tenderness. Bowel sounds are present. EXTREMITIES: No Edema. Mild cyanosis fingers. MUSCULOSKELETAL: No synovitis NEUROL: Grossly intact Results/Medications Result Diagram: 12/06/18 0452 12/06/18 0452 Results 24 hrs Laboratory Tests Test 12/06/18 04:52 White Blood Count 12.4 #H Red Blood Count 3.51 L Hemoglobin 9.2 L Hematocrit 30.5 L Mean Corpuscular Volume 86.9 Mean Corpuscular Hemoglobin 26.2 L Mean Corpuscular Hemoglobin Concent 30.2 L Red Cell Distribution Width 16.8 H Platelet Count 595 H Mean Platelet Volume 9.9 Immature Granulocytes % 1.300 H Neutrophils % 88.2 H Lymphocytes % 1.0 L Monocytes % 9.3 Eosinophils % 0.1 Basophils % 0.1 Nucleated Red Blood Cells % 8.2 H Immature Granulocytes # 0.160 H Neutrophils # 10.9 H Lymphocytes # 0.1 L Monocytes # 1.2 H Eosinophils # 0.0 Basophils # 0.0 Nucleated Red Blood Cells # 1.0 H Sodium Level 139 Potassium Level 4.1 Chloride Level 105 Carbon Dioxide Level 29 Anion Gap 5 Blood Urea Nitrogen 21 H Creatinine 0.52 Est Glomerular Filtrat Rate mL/min > 60 Glucose Level 110 Calcium Level 8.6 Home Meds Active Scripts Cyclobenzaprine Hcl* (Cyclobenzaprine Hcl*) 10 Mg Tablet, 10 MG PO TID, #15 TAB Prov:MICKY CHAN MD 11/26/18 Tramadol HCl (Tramadol HCl) 50 Mg Tablet, 50 MG PO Q4 PRN for PAIN, #20 TAB Prov:MICKY CHAN MD 11/26/18 Ondansetron Hcl* (Zofran*) 8 Mg Tablet, 8 MG PO Q6H PRN for NAUSEA AND OR VOMITING, #20 TAB Prov:JENNY RAWLS MD 11/20/18 Levofloxacin* (Levaquin*) 750 Mg Tablet, 750 MG PO DAILY for 7 Days, TAB Prov:JENNY RAWLS MD 11/20/18 Sucralfate* (Carafate*) 1 Gm/10 Ml Susp, 1 GM PO QID for 30 Days, #1 EA 2 Refills Prov:LIUDMILA DUMONT MD 11/17/18 Metoclopramide Hcl* (Metoclopramide Hcl*) 10 Mg Tablet, 10 MG PO QID for 10 Days, #40 TAB Prov:LIUDMILA DUMONT MD 11/17/18 Acetaminophen* (Tylenol*) 325 Mg Tablet, 650 MG PO Q6H PRN for .PAIN 1-3 OR TEMP for 1 Day, TAB Prov:LIUDMILA DUMONT MD 11/17/18 Nadolol (Corgard) 40 Mg Tablet, 20 MG PO BID for 15 Days, #30 TAB Prov:LIUDMILA DUMONT MD 11/17/18 Pantoprazole* (Pantoprazole*) 40 Mg Tablet.dr, 40 MG PO BID@06,18 for 30 Days, #60 TAB 1 Refill Prov:LIUDMILA DUMONT MD 11/17/18 Reported Medications Amlodipine Besylate* (Amlodipine Besylate*) 10 Mg Tablet, 5 MG PO BID, #30 TAB 11/29/18 Calcium Carbonate/Vitamin D3 (Calcium 500 mg Chewable Tablet) 1 Each Tab.chew, 1 EACH PO DAILY, TAB.CHEW 11/14/18 Prednisone* (Prednisone*) 5 Mg Tab, 5 MG PO DAILY, TAB 11/14/18 Azathioprine* (Imuran*) 50 Mg Tab, 100 MG PO DAILY, TAB 11/14/18 Ergocalciferol (Vitamin D2) (VITAMIN D2) 50,000 Unit Capsule, 49661 UNIT PO QMONDAY 09/22/18 Medications Current Medications IV Flush (NS 3 ml) 3 ml PER PROTOCOL IV ; Start 11/29/18 at 07:00 Ondansetron HCl (Zofran Inj) 4 mg Q6H PRN IV NAUSEA/VOMITING Last administered on 12/05/18at 14:16; Admin Dose 4 MG; Start 11/29/18 at 07:00 Acetaminophen (Tylenol Tab) 650 mg Q6H PRN PO .PAIN 1-3 OR TEMP; Start 11/29/18 at 07:00 Acetaminophen/ Hydrocodone Bitart ([place] (5/325)) 1 tab Q6H PRN PO .MOD PAIN 4- 6 Last administered on 12/02/18at 11:08; Admin Dose 1 TAB; Start 11/29/18 at 07:00 Docusate Sodium (Colace) 100 mg Q12H PRN PO .CONSTIPATION; Start 11/29/18 at 07:00 Magnesium Hydroxide (Milk Of Mag) 30 ml DAILY PRN PO .CONSTIPATION; Start 11/29/18 at 07:00 Heparin Sodium (Porcine) (Heparin (5000 Units/1ml)) 5,000 unit Q12 SC Last administered on 12/06/18at 08:41; Admin Dose 5,000 UNIT; Start 11/29/18 at 09:00 Lorazepam (Ativan) 0.5 mg Q6H PRN IV ANXIETY; Start 11/29/18 at 07:00 Albuterol/ Ipratropium (Duoneb) 3 ml Q4H RESP THERAPY PRN HHN SHORTNESS OF BREATH; Start 11/29/18 at 07:00 Hydralazine HCl (Apresoline) 10 mg Q6H PRN IV for sys bp > 180; Start 11/29/18 at 07:00 Nitroglycerin (Nitroglycerin (Sl Tab) 0.4 Mg) 1 tab Q5M PRN SL ANGINA Last administered on 11/30/18at 10:24; Admin Dose 1 TAB; Start 11/29/18 at 07:00 Amlodipine Besylate (Norvasc) 5 mg BID PO Last administered on 12/06/18at 08:33; Admin Dose 5 MG; Start 11/30/18 at 09:00 Azathioprine (Imuran) 100 mg DAILY PO Last administered on 12/06/18 08:35; Admin Dose 100 MG; Start 11/30/18 at 09:00 Cyclobenzaprine HCl (Flexeril) 10 mg TID PO Last administered on 12/06/18 12:49; Admin Dose 10 MG; Start 11/30/18 at 09:00 Nadolol (Corgard) 20 mg BID PO Last administered on 12/06/18 08:34; Admin Dose 20 MG; Start 11/30/18 at 09:00 Tramadol HCl (Ultram) 50 mg Q4 PRN PO PAIN Last administered on 12/03/18 03:13; Admin Dose 50 MG; Start 11/30/18 at 00:00 Calcium/Vitamin D (Oyster Shell/ Vit-D (500/200)) 1 tab DAILY PO Last administered on 12/06/18 08:34; Admin Dose 1 TAB; Start 11/30/18 at 09:00 Sucralfate (Carafate Susp) 1 gm QID PO Last administered on 12/06/18 12:49; Admin Dose 1 GM; Start 11/30/18 at 09:00 Metoclopramide HCl (Reglan) 10 mg Q6H PRN IV nausae Last administered on 12/06/18 02:23; Admin Dose 10 MG; Start 11/30/18 at 11:00 Colchicine (Colchicine) 0.6 mg BID PO Last administered on 12/06/18 08:34; Admin Dose 0.6 MG; Start 11/30/18 at 12:30 Hydromorphone HCl (Dilaudid) 1 mg Q4H PRN IV SEVERE PAIN LEVEL 7-10 Last administered on 12/06/18 10:01; Admin Dose 1 MG; Start 12/02/18 at 12:30 Amylase/Lipase/ Protease (Creon ([id number])) 2 cap WITH MEALS PO Last administered on 12/06/18 12:49; Admin Dose 2 CAP; Start 12/02/18 at 18:00 Lactobacillus Acidophilus/ Rhamnosus (Culturelle) 1 cap WITH MEALS PO Last administered on 12/06/18 12:49; Admin Dose 1 CAP; Start 12/05/18 at 18:00 Amoxicillin (Amoxicillin) 500 mg BID PO Last administered on 12/06/18at 08:34; Admin Dose 500 MG; Start 12/06/18 at 09:00 Levofloxacin (Levaquin) 750 mg DAILY@06 PO Last administered on 12/06/18at 05:40; Admin Dose 750 MG; Start 12/06/18 at 06:00 Pantoprazole (Protonix Tab) 40 mg BID@06,18 PO Last administered on 12/06/18at 05:40; Admin Dose 40 MG; Start 12/05/18 at 18:00 Methylprednisolone Sodium Succinate (Solu-Medrol) 20 mg BID IV Last administered on 12/06/18at 08:33; Admin Dose 20 MG; Start 12/05/18 at 21:00 Assessment/Plan Assessment/Plan (Daily) Assessment/ Plan: 1. Probable pneumonia Improving. 2.. Lupus flare possibly. Agree with decreasing steroids as clinically improving. 3.. 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 Continue the colchicine 0.6 b.i.d. 4.. Pancreatitis. The patient seems to be improving. 5.. Pleural effusion. 6. Cirrhosis with esophageal varices. LFTs are within normal limits. We will just continue to follow. 7. Raynaud's syndrome, status post finger amputation. Raynaud's precautions. SAHRA GOYAL MD Dec 06, 2018 13:37
--- NOTE | 2018-12-06 13:55 | CONS ---
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 No tamponade physiology. Pleuritic chest pain. Due to lupus flare. 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 Still with abd pain. No chest pain. Steroids are being tapered down Exam/Review of Systems Vital Signs Vitals Vital Signs Date Temp Pulse Resp B/P (MAP) Pulse Ox O2 O2 Flow FiO2 Time Delivery Rate 12/06/18 98.2 58 18 124/74 94 Room Air 07:56 (91) Intake and Output 12/05/18 12/05/18 12/06/18 1515:00 23:00 07:00 IntakeIntake Total 670 ml 300 ml BalanceBalance 670 ml 300 ml Exam Constitutional: alert, oriented Psych: no complaints, nl mood/affect Neck: supple; No jvd Respiratory: clear to auscultation; No crackles/rales Cardiovascular: regular rate and rhythm; No edema, No rub Gastrointestinal: soft; No non-tender, No distended Neurological: nl mental status, nl speech Labs Result Diagram: 12/06/182 12/06/18 0452 Results 24hrs Laboratory Tests Test 12/06/18 04:52 White Blood Count 12.4 #H Red Blood Count 3.51 L Hemoglobin 9.2 L Hematocrit 30.5 L Mean Corpuscular Volume 86.9 Mean Corpuscular Hemoglobin 26.2 L Mean Corpuscular Hemoglobin Concent 30.2 L Red Cell Distribution Width 16.8 H Platelet Count 595 H Mean Platelet Volume 9.9 Immature Granulocytes % 1.300 H Neutrophils % 88.2 H Lymphocytes % 1.0 L Monocytes % 9.3 Eosinophils % 0.1 Basophils % 0.1 Nucleated Red Blood Cells % 8.2 H Immature Granulocytes # 0.160 H Neutrophils # 10.9 H Lymphocytes # 0.1 L Monocytes # 1.2 H Eosinophils # 0.0 Basophils # 0.0 Nucleated Red Blood Cells # 1.0 H Sodium Level 139 Potassium Level 4.1 Chloride Level 105 Carbon Dioxide Level 29 Anion Gap 5 Blood Urea Nitrogen 21 H Creatinine 0.52 Est Glomerular Filtrat Rate mL/min > 60 Glucose Level 110 Calcium Level 8.6 Medications Medications Current Medications IV Flush (NS 3 ml) 3 ml PER PROTOCOL IV ; Start 11/29/18 at 07:00 Ondansetron HCl (Zofran Inj) 4 mg Q6H PRN IV NAUSEA/VOMITING Last administered on 12/05/18at 14:16; Admin Dose 4 MG; Start 11/29/18 at 07:00 Acetaminophen (Tylenol Tab) 650 mg Q6H PRN PO .PAIN 1-3 OR TEMP; Start 11/29/18 at 07:00 Acetaminophen/ Hydrocodone Bitart ([place] (5/325)) 1 tab Q6H PRN PO .MOD PAIN 4- 6 Last administered on 12/02/18at 11:08; Admin Dose 1 TAB; Start 11/29/18 at 07:00 Docusate Sodium (Colace) 100 mg Q12H PRN PO .CONSTIPATION; Start 11/29/18 at 07:00 Magnesium Hydroxide (Milk Of Mag) 30 ml DAILY PRN PO .CONSTIPATION; Start 11/29/18 at 07:00 Heparin Sodium (Porcine) (Heparin (5000 Units/1ml)) 5,000 unit Q12 SC Last administered on 12/06/18at 08:41; Admin Dose 5,000 UNIT; Start 11/29/18 at 09:00 Lorazepam (Ativan) 0.5 mg Q6H PRN IV ANXIETY; Start 11/29/18 at 07:00 Albuterol/ Ipratropium (Duoneb) 3 ml Q4H RESP THERAPY PRN HHN SHORTNESS OF BREATH; Start 11/29/18 at 07:00 Hydralazine HCl (Apresoline) 10 mg Q6H PRN IV for sys bp > 180; Start 11/29/18 at 07:00 Nitroglycerin (Nitroglycerin (Sl Tab) 0.4 Mg) 1 tab Q5M PRN SL ANGINA Last administered on 11/30/18at 10:24; Admin Dose 1 TAB; Start 11/29/18 at 07:00 Amlodipine Besylate (Norvasc) 5 mg BID PO Last administered on 12/06/18 08:33; Admin Dose 5 MG; Start 11/30/18 at 09:00 Azathioprine (Imuran) 100 mg DAILY PO Last administered on 12/06/18 08:35; Admin Dose 100 MG; Start 11/30/18 at 09:00 Cyclobenzaprine HCl (Flexeril) 10 mg TID PO Last administered on 12/06/18 12:49; Admin Dose 10 MG; Start 11/30/18 at 09:00 Nadolol (Corgard) 20 mg BID PO Last administered on 12/06/18 08:34; Admin Dose 20 MG; Start 11/30/18 at 09:00 Tramadol HCl (Ultram) 50 mg Q4 PRN PO PAIN Last administered on 12/03/18 03:13; Admin Dose 50 MG; Start 11/30/18 at 00:00 Calcium/Vitamin D (Oyster Shell/ Vit-D (500/200)) 1 tab DAILY PO Last administered on 12/06/18 08:34; Admin Dose 1 TAB; Start 11/30/18 at 09:00 Sucralfate (Carafate Susp) 1 gm QID PO Last administered on 12/06/18 12:49; Admin Dose 1 GM; Start 11/30/18 at 09:00 Metoclopramide HCl (Reglan) 10 mg Q6H PRN IV nausae Last administered on 12/06 02:23; Admin Dose 10 MG; Start 11/30/18 at 11:00 Colchicine (Colchicine) 0.6 mg BID PO Last administered on 12/06/18 08:34; Admin Dose 0.6 MG; Start 11/30/18 at 12:30 Hydromorphone HCl (Dilaudid) 1 mg Q4H PRN IV SEVERE PAIN LEVEL 7-10 Last administered on 12/06/18 10:01; Admin Dose 1 MG; Start 12/02/18 at 12:30 Amylase/Lipase/ Protease (Creon ([id number])) 2 cap WITH MEALS PO Last admin istered on 12/06/18 12:49; Admin Dose 2 CAP; Start 12/02/18 at 18:00 Lactobacillus Acidophilus/ Rhamnosus (Culturelle) 1 cap WITH MEALS PO Last administered on 12/06/18 12:49; Admin Dose 1 CAP; Start 12/05/18 at 18:00 Amoxicillin (Amoxicillin) 500 mg BID PO Last administered on 12/06/18 08:34; Admin Dose 500 MG; Start 12/06/18 at 09:00 Levofloxacin (Levaquin) 750 mg DAILY@06 PO Last administered on 12/06/18 05:40; Admin Dose 750 MG; Start 12/06/18 at 06:00 Pantoprazole (Protonix Tab) 40 mg BID@06,18 PO Last administered on 12/06/18 05:40; Admin Dose 40 MG; Start 12/05/18 at 18:00 Methylprednisolone Sodium Succinate (Solu-Medrol) 20 mg BID IV Last administered on 12/06/18 08:33; Admin Dose 20 MG; Start 12/05/18 at 21:00 MEET GAYLE Dec 06, 2018 13:55
[2018-12-06 15:01] VITALS: BP 143/73; PULSE 58; RESP 16
--- NOTE | 2018-12-06 15:47 | PN ---
Date/Time of Note Date/Time of Note DATE: 12/06/18 TIME: 15:45 Assessment/Plan VTE Prophylaxis Risk score (from Ns)>0 risk: 1 SCD applied (from Ns): No SCD contraindicated: other Pharmacological prophylaxis: NA/contraindicated Pharm contraindication: anticoag not tolerated Lines/Catheters IV [facility] (from [facility]): [facility] Urinary Cath still in place: No Assessment/Plan Hospital Course SUBJECTIVE: Continues to complain of abdominal pain. Continues to complain of diarrhea. Denies any dyspnea. OBJECTIVE: Physical Exam General: Obese 33 year-old female lying in bed in no apparent distress. HEENT: Normocephalic, atraumatic. Eyes: Anicteric sclerae, conjunctivae clear. ENT: Nasal septum midline, oral mucosa moist. Neck supple, no JVD noticed. Respiratory: Bilaterally diminished breath sounds. No use of accessory muscles of respiration. No adventitious breath sounds. Cardiovascular: S1, S2 heard. No murmurs or gallops. Abdomen: Soft and nondistended. Diffuse tenderness. Bowel sounds positive in all 4 quadrants. Genitourinary: Deferred. Extremities: No cyanosis, no clubbing, no edema. Peripheral pulses palpable. Neurologic: Cranial nerves II through XII grossly intact. The patient is awake, alert, and oriented. Skin: Normal skin turgor. No skin rashes. Labs & Vitals per chart ASSESSMENT & PLAN 33-year-old female with comorbidities including lupus, gastritis, hypertension, chronic liver cirrhosis with history of esophageal varices, Raynaud's syndrome with history of finger amputation, and obesity who came to the emergency room with chief complaint of epigastric abdominal pain with evidence of underlying pancreatitis, who was admitted to inpatient setting for further treatment and evaluation. 1. Abdominal pain. CT of the abdomen and pelvis showing acute pancreatitis. On PPI and Carafate, provided history of gastric ulcers. Repeat CT of the abdomen with contrast pending at this time. Being followed by gastroenterology. 2. Acute pancreatitis. Continue Creon. Continue gastroenterology recommendations. 3. Lupus flare. Continue rheumatology recommendations. Continue steroids. 4. History of extrinsic gastric ulcers. Continue PPI and Carafate. 5. Chronic liver cirrhosis with history of esophageal varices. Being followed by gastroenterology. Continue nonselective beta-blockers. 6. Lupus pericarditis. No evidence of any cardiac tamponade. Continue colchicine and steroids. 7. History of Raynaud's syndrome. Status post finger amputation. Continue Raynaud's precautions. 8. Diarrhea. Continue probiotics. Stool cultures showing coliform bacteria. 9. Obesity. BMI more than 34 kg/m. Advised weight reduction. 10. Hypertension. Continue antihypertensives. 11. Parapneumonic effusion. On antimicrobials. Pulmonology following. 12. Fluids, electrolytes, and nutrition. Diet as tolerated. Currently n.p.o. for a CT scan. 13. DVT prophylaxis. Bilateral SCDs. 14. Plan. Continue pain control. Continue antimicrobials. Await CT of the abdomen and pelvis. The patient was seen in collaboration with Dr. Finley. Result Diagram: 12/06/1845112/06/182 Results 24hrs Laboratory Tests Test 12/06/18 04:52 White Blood Count 12.4 #H Red Blood Count 3.51 L Hemoglobin 9.2 L Hematocrit 30.5 L Mean Corpuscular Volume 86.9 Mean Corpuscular Hemoglobin 26.2 L Mean Corpuscular Hemoglobin Concent 30.2 L Red Cell Distribution Width 16.8 H Platelet Count 595 H Mean Platelet Volume 9.9 Immature Granulocytes % 1.300 H Neutrophils % 88.2 H Lymphocytes % 1.0 L Monocytes % 9.3 Eosinophils % 0.1 Basophils % 0.1 Nucleated Red Blood Cells % 8.2 H Immature Granulocytes # 0.160 H Neutrophils # 10.9 H Lymphocytes # 0.1 L Monocytes # 1.2 H Eosinophils # 0.0 Basophils # 0.0 Nucleated Red Blood Cells # 1.0 H Sodium Level 139 Potassium Level 4.1 Chloride Level 105 Carbon Dioxide Level 29 Anion Gap 5 Blood Urea Nitrogen 21 H Creatinine 0.52 Est Glomerular Filtrat Rate mL/min > 60 Glucose Level 110 Calcium Level 8.6 Exam/Review of Systems Exam Vitals Vital Signs Date Temp Pulse Resp B/P (MAP) Pulse Ox O2 O2 Flow FiO2 Time Delivery Rate 12/06/18 98.1 58 16 143/73 94 Room Air 15:01 (96) Intake and Output 12/05/18 12/05/18 12/06/18 1515:00 23:00 07:00 IntakeIntake Total 670 ml 300 ml BalanceBalance 670 ml 300 ml Results Results 24hrs Laboratory Tests Test 12/06/18 04:52 White Blood Count 12.4 #H Red Blood Count 3.51 L Hemoglobin 9.2 L Hematocrit 30.5 L Mean Corpuscular Volume 86.9 Mean Corpuscular Hemoglobin 26.2 L Mean Corpuscular Hemoglobin Concent 30.2 L Red Cell Distribution Width 16.8 H Platelet Count 595 H Mean Platelet Volume 9.9 Immature Granulocytes % 1.300 H Neutrophils % 88.2 H Lymphocytes % 1.0 L Monocytes % 9.3 Eosinophils % 0.1 Basophils % 0.1 Nucleated Red Blood Cells % 8.2 H Immature Granulocytes # 0.160 H Neutrophils # 10.9 H Lymphocytes # 0.1 L Monocytes # 1.2 H Eosinophils # 0.0 Basophils # 0.0 Nucleated Red Blood Cells # 1.0 H Sodium Level 139 Potassium Level 4.1 Chloride Level 105 Carbon Dioxide Level 29 Anion Gap 5 Blood Urea Nitrogen 21 H Creatinine 0.52 Est Glomerular Filtrat Rate mL/min > 60 Glucose Level 110 Calcium Level 8.6 Medications Medication Current Medications IV Flush (NS 3 ml) 3 ml PER PROTOCOL IV ; Start 11/29/18 at 07:00 Ondansetron HCl (Zofran Inj) 4 mg Q6H PRN IV NAUSEA/VOMITING Last administered on 12/05/18at 14:16; Admin Dose 4 MG; Start 11/29/18 at 07:00 Acetaminophen (Tylenol Tab) 650 mg Q6H PRN PO .PAIN 1-3 OR TEMP; Start 11/29/18 at 07:00 Acetaminophen/ Hydrocodone Bitart ([place] (5/325)) 1 tab Q6H PRN PO .MOD PAIN 4- 6 Last administered on 12/02/18at 11:08; Admin Dose 1 TAB; Start 11/29/18 at 07:00 Docusate Sodium (Colace) 100 mg Q12H PRN PO .CONSTIPATION; Start 11/29/18 at 07:00 Magnesium Hydroxide (Milk Of Mag) 30 ml DAILY PRN PO .CONSTIPATION; Start 11/29/18 at 07:00 Heparin Sodium (Porcine) (Heparin (5000 Units/1ml)) 5,000 unit Q12 SC Last administered on 12/06/18at 08:41; Admin Dose 5,000 UNIT; Start 11/29/18 at 09:00 Lorazepam (Ativan) 0.5 mg Q6H PRN IV ANXIETY; Start 11/29/18 at 07:00 Albuterol/ Ipratropium (Duoneb) 3 ml Q4H RESP THERAPY PRN HHN SHORTNESS OF BREATH; Start 11/29/18 at 07:00 Hydralazine HCl (Apresoline) 10 mg Q6H PRN IV for sys bp > 180; Start 11/29/18 at 07:00 Nitroglycerin (Nitroglycerin (Sl Tab) 0.4 Mg) 1 tab Q5M PRN SL ANGINA Last administered on 11/30/18 10:24; Admin Dose 1 TAB; Start 11/29/18 at 07:00 Amlodipine Besylate (Norvasc) 5 mg BID PO Last administered on 12/06/18 08:33; Admin Dose 5 MG; Start 11/30/18 at 09:00 Azathioprine (Imuran) 100 mg DAILY PO Last administered on 12/06/18 08:35; Admin Dose 100 MG; Start 11/30/18 at 09:00 Cyclobenzaprine HCl (Flexeril) 10 mg TID PO Last administered on 12/06/18 12:49; Admin Dose 10 MG; Start 11/30/18 at 09:00 Nadolol (Corgard) 20 mg BID PO Last administered on 12/06/18 08:34; Admin Dose 20 MG; Start 11/30/18 at 09:00 Tramadol HCl (Ultram) 50 mg Q4 PRN PO PAIN Last administered on 12/03/18 03:13; Admin Dose 50 MG; Start 11/30/18 at 00:00 Calcium/Vitamin D (Oyster Shell/ Vit-D (500/200)) 1 tab DAILY PO Last administered on 12/06/18 08:34; Admin Dose 1 TAB; Start 11/30/18 at 09:00 Sucralfate (Carafate Susp) 1 gm QID PO Last administered on 12/06/18 12:49; Admin Dose 1 GM; Start 11/30/18 at 09:00 Metoclopramide HCl (Reglan) 10 mg Q6H PRN IV nausae Last administered on 12/06/18 02:23; Admin Dose 10 MG; Start 11/30/18 at 11:00 Colchicine (Colchicine) 0.6 mg BID PO Last administered on 12/06/18 08:34; Admin Dose 0.6 MG; Start 11/30/18 at 12:30 Hydromorphone HCl (Dilaudid) 1 mg Q4H PRN IV SEVERE PAIN LEVEL 7-10 Last administered on 12/06/18 10:01; Admin Dose 1 MG; Start 12/02/18 at 12:30 Amylase/Lipase/ Protease (Creon ([id number])) 2 cap WITH MEALS PO Last administered on 12/06/18 12:49; Admin Dose 2 CAP; Start 12/02/18 at 18:00 Lactobacillus Acidophilus/ Rhamnosus (Culturelle) 1 cap WITH MEALS PO Last administered on 12/06/18 12:49; Admin Dose 1 CAP; Start 12/05/18 at 18:00 Amoxicillin (Amoxicillin) 500 mg BID PO Last administered on 12/06/18 08:34; Admin Dose 500 MG; Start 12/06/18 at 09:00 Levofloxacin (Levaquin) 750 mg DAILY@06 PO Last administered on 12/06/18 05:40; Admin Dose 750 MG; Start 12/06/18 at 06:00 Pantoprazole (Protonix Tab) 40 mg BID@06,18 PO Last administered on 12/06/18 05:40; Admin Dose 40 MG; Start 12/05/18 at 18:00 Methylprednisolone Sodium Succinate (Solu-Medrol) 20 mg BID IV Last administered on 12/06/18 08:33; Admin Dose 20 MG; Start 12/05/18 at 21:00 MERCY GALLEGOS NP Dec 06, 2018 15:47
--- NOTE | 2018-12-06 15:51 | PN ---
Date/Time of Note Date/Time of Note DATE: 12/06/18 TIME: 15:50 Assessment/Plan VTE Prophylaxis Risk score (from Ns)>0 risk: 1 SCD applied (from Ns): No SCD contraindicated: other (scds) Pharmacological prophylaxis: other (scds) Lines/Catheters IV C[facility] Type (from [facility] Saline Lock Urinary Cath still in place: No Assessment/Plan Hospital Course Assessment/Plan Assessment: Epigastric pain-with radiation to left upper quadrant and left flank/back -CT is concerning for pancreatitis, however lipase and amylase WNL Left pleural effusion Diarrhea -Stool Cx- coliform -Likely from antibiotics- per hospitalist plan to deescalate antibiotics Pericardial effusion, moderate -Echocardiogram - Small to borderline moderate circumferential pericardial effusion without evidence of tamponade. EF 55% Normocytic Anemia Thrombocytosis Recent History Hematemesis EGD 11/15/2018 Extensive ulceration of the distal esophagus, rule out opportunistic infection, biopsies obtained. Grade II/IV esophageal varices. No stigmata of recent bleeding. No therapeutic intervention required Mild gastritis versus portal gastropathy, Otherwise normal EGD Stomach biopsy negative for H. pylori infection, no evidence of intestinal m etaplasia, dysplasia, or malignancy Esophageal ulcer biopsy mucosa showing moderate chronic inflammation no squamous mucosa is present. No goblet cells are identified, no H. pylori is identified, no evidence of dysplasia or malignancy SLE/Rheumatoid arthritis/Raynaud's syndrome -On prednisone. History of Splenectomy Depression HTN Hx of EGD/colonoscopy 09/26/18 Colonoscopy 09/26/2018colitis more significant in the area of the rectum moderate size internal hemorrhoidsbiopsy negative for evidence of colitis EGD grade II/IV esophageal varices, severe gastritisbiopsies negative for H. pylori Liver cirrhosis- with hx of EV -Hepatitis serology negative -ASMA,AMA- negative Status post finger amputation secondary to Raynaud's syndrome Leukocytosis currently on steroid therapy Plan: Probiotics CT abdomen/pelvis with p.o./IV contrast- pending Recommend agents based on clinical course Patient seen in collaboration with Subjective: Course reviewed with nursing staff Patient interviewed and examined All labs, imaging and other results reviewed Patient continues to have epigastric pain with radiation to LUQ/flank Ct abd/pelvis currently pending- Continue supportive care. Exam PHYSICAL EXAMINATION: GENERAL: Chronically ill appearing young woman, alert & oriented x 3, edema/swelling from chronic steroid use SKIN: No lesions. HEAD: Normocephalic, atraumatic, no tenderness. EYES: Pupils equal reactive to light, no discharge. EARS/NOSE AND THROAT: Ears normal, nose normal. NECK: Supple, no masses, thyroid normal. CHEST: Inspection within normal limits. CARDIOVASCULAR: Heart: Regular rate and rhythm RESPIRATORY: Lungs clear to auscultation. GASTROINTESTINAL AND LIVER: Abdomen: obese, soft, epigastric tenderness, non- distended, no hernias, no masses, normoactive bowel sounds. Rectal: Deferred. EXTREMITIES: No cyanosis, clubbing or edema. Right index finger amputated 1 phalanx Result Diagram: 12/06/1845112/06/182 Results 24hrs Laboratory Tests Test 12/06/18 04:52 White Blood Count 12.4 #H Red Blood Count 3.51 L Hemoglobin 9.2 L Hematocrit 30.5 L Mean Corpuscular Volume 86.9 Mean Corpuscular Hemoglobin 26.2 L Mean Corpuscular Hemoglobin Concent 30.2 L Red Cell Distribution Width 16.8 H Platelet Count 595 H Mean Platelet Volume 9.9 Immature Granulocytes % 1.300 H Neutrophils % 88.2 H Lymphocytes % 1.0 L Monocytes % 9.3 Eosinophils % 0.1 Basophils % 0.1 Nucleated Red Blood Cells % 8.2 H Immature Granulocytes # 0.160 H Neutrophils # 10.9 H Lymphocytes # 0.1 L Monocytes # 1.2 H Eosinophils # 0.0 Basophils # 0.0 Nucleated Red Blood Cells # 1.0 H Sodium Level 139 Potassium Level 4.1 Chloride Level 105 Carbon Dioxide Level 29 Anion Gap 5 Blood Urea Nitrogen 21 H Creatinine 0.52 Est Glomerular Filtrat Rate mL/min > 60 Glucose Level 110 Calcium Level 8.6 Exam/Review of Systems Exam Vitals Vital Signs Date Temp Pulse Resp B/P (MAP) Pulse Ox O2 O2 Flow FiO2 Time Delivery Rate 12/06/18 98.1 58 16 143/73 94 Room Air 15:01 (96) Intake and Output 12/05/18 12/05/18 12/06/18 1515:00 23:00 07:00 IntakeIntake Total 670 ml 300 ml BalanceBalance 670 ml 300 ml Results Results 24hrs Laboratory Tests Test 12/06/18 04:52 White Blood Count 12.4 #H Red Blood Count 3.51 L Hemoglobin 9.2 L Hematocrit 30.5 L Mean Corpuscular Volume 86.9 Mean Corpuscular Hemoglobin 26.2 L Mean Corpuscular Hemoglobin Concent 30.2 L Red Cell Distribution Width 16.8 H Platelet Count 595 H Mean Platelet Volume 9.9 Immature Granulocytes % 1.300 H Neutrophils % 88.2 H Lymphocytes % 1.0 L Monocytes % 9.3 Eosinophils % 0.1 Basophils % 0.1 Nucleated Red Blood Cells % 8.2 H Immature Granulocytes # 0.160 H Neutrophils # 10.9 H Lymphocytes # 0.1 L Monocytes # 1.2 H Eosinophils # 0.0 Basophils # 0.0 Nucleated Red Blood Cells # 1.0 H Sodium Level 139 Potassium Level 4.1 Chloride Level 105 Carbon Dioxide Level 29 Anion Gap 5 Blood Urea Nitrogen 21 H Creatinine 0.52 Est Glomerular Filtrat Rate mL/min > 60 Glucose Level 110 Calcium Level 8.6 Medications Medication Current Medications IV Flush (NS 3 ml) 3 ml PER PROTOCOL IV ; Start 11/29/18 at 07:00 Ondansetron HCl (Zofran Inj) 4 mg Q6H PRN IV NAUSEA/VOMITING Last administered on 12/05/18at 14:16; Admin Dose 4 MG; Start 11/29/18 at 07:00 Acetaminophen (Tylenol Tab) 650 mg Q6H PRN PO .PAIN 1-3 OR TEMP; Start 11/29/18 at 07:00 Acetaminophen/ Hydrocodone Bitart ([place] (5/325)) 1 tab Q6H PRN PO .MOD PAIN 4- 6 Last administered on 12/02/18at 11:08; Admin Dose 1 TAB; Start 11/29/18 at 07:00 Docusate Sodium (Colace) 100 mg Q12H PRN PO .CONSTIPATION; Start 11/29/18 at 07:00 Magnesium Hydroxide (Milk Of Mag) 30 ml DAILY PRN PO .CONSTIPATION; Start 11/29/18 at 07:00 Heparin Sodium (Porcine) (Heparin (5000 Units/1ml)) 5,000 unit Q12 SC Last administered on 12/06/18at 08:41; Admin Dose 5,000 UNIT; Start 11/29/18 at 09:00 Lorazepam (Ativan) 0.5 mg Q6H PRN IV ANXIETY; Start 11/29/18 at 07:00 Albuterol/ Ipratropium (Duoneb) 3 ml Q4H RESP THERAPY PRN HHN SHORTNESS OF BREATH; Start 11/29/18 at 07:00 Hydralazine HCl (Apresoline) 10 mg Q6H PRN IV for sys bp > 180; Start 11/29/18 at 07:00 Nitroglycerin (Nitroglycerin (Sl Tab) 0.4 Mg) 1 tab Q5M PRN SL ANGINA Last administered on 11/30/18 10:24; Admin Dose 1 TAB; Start 11/29/18 at 07:00 Amlodipine Besylate (Norvasc) 5 mg BID PO Last administered on 12/06/18 08:33; Admin Dose 5 MG; Start 11/30/18 at 09:00 Azathioprine (Imuran) 100 mg DAILY PO Last administered on 12/06/18 08:35; Admin Dose 100 MG; Start 11/30/18 at 09:00 Cyclobenzaprine HCl (Flexeril) 10 mg TID PO Last administered on 12/06/18 12:49; Admin Dose 10 MG; Start 11/30/18 at 09:00 Nadolol (Corgard) 20 mg BID PO Last administered on 12/06/18 08:34; Admin Dose 20 MG; Start 11/30/18 at 09:00 Tramadol HCl (Ultram) 50 mg Q4 PRN PO PAIN Last administered on 12/03/18 03:13; Admin Dose 50 MG; Start 11/30/18 at 00:00 Calcium/Vitamin D (Oyster Shell/ Vit-D (500/200)) 1 tab DAILY PO Last administered on 12/06/18 08:34; Admin Dose 1 TAB; Start 11/30/18 at 09:00 Sucralfate (Carafate Susp) 1 gm QID PO Last administered on 12/06/18 12:49; Admin Dose 1 GM; Start 11/30/18 at 09:00 Metoclopramide HCl (Reglan) 10 mg Q6H PRN IV nausae Last administered on 12/06/18 02:23; Admin Dose 10 MG; Start 11/30/18 at 11:00 Colchicine (Colchicine) 0.6 mg BID PO Last administered on 12/06/18 08:34; Admin Dose 0.6 MG; Start 11/30/18 at 12:30 Hydromorphone HCl (Dilaudid) 1 mg Q4H PRN IV SEVERE PAIN LEVEL 7-10 Last administered on 12/06/18 15:37; Admin Dose 1 MG; Start 12/02/18 at 12:30 Amylase/Lipase/ Protease (Creon ([id number])) 2 cap WITH MEALS PO Last administered on 12/06/18 12:49; Admin Dose 2 CAP; Start 12/02/18 at 18:00 Lactobacillus Acidophilus/ Rhamnosus (Culturelle) 1 cap WITH MEALS PO Last administered on 12/06/18 12:49; Admin Dose 1 CAP; Start 12/05/18 at 18:00 Amoxicillin (Amoxicillin) 500 mg BID PO Last administered on 12/06/18 08:34; Admin Dose 500 MG; Start 12/06/18 at 09:00 Levofloxacin (Levaquin) 750 mg DAILY@06 PO Last administered on 12/06/18 05:40; Admin Dose 750 MG; Start 12/06/18 at 06:00 Pantoprazole (Protonix Tab) 40 mg BID@06,18 PO Last administered on 12/06/18 05:40; Admin Dose 40 MG; Start 12/05/18 at 18:00 Methylprednisolone Sodium Succinate (Solu-Medrol) 20 mg BID IV Last administered on 12/06/18 08:33; Admin Dose 20 MG; Start 12/05/18 at 21:00 MONIQUE DE LA ROSA Dec 06, 2018 15:51
[2018-12-06] MEDS ORDERED: SOD CHLORIDE 0.9% 100 ML ONE (19:34)
[2018-12-06] MEDS ORDERED: IOHEXOL 300MG/ML 150 ML BTL ONE (19:34)
[2018-12-06 19:40] VITALS: BP 142/80; PULSE 56; RESP 18
[2018-12-06] MEDS: ONDANSETRON 4 MG INJ IV PRN (21:23)
[2018-12-07] MEDS ORDERED: PIPER-TAZO 3.375 GM IV (PMX) 100 ML IVPB SCH (01:00)
[2018-12-07] MEDS ORDERED: VANCOMYCIN IV PER PHARMACY XX SCH (01:00)
--- NOTE | 2018-12-07 01:29 | EN ---
Date/Time of Note Date/Time of Note DATE: 12/07/18 TIME: 01:04 Event Note Medicine Medicine Event Note Acute event note Was called by the RN in regards to the patient's CT of the abdomen pelvis with IV contrast that was ordered by gastroenterology. Results below 1. PNEUMATOSIS INTESTINALIS OF THE RIGHT COLON AND HEPATIC FLEXURE, RAISING CONCERN FOR BOWEL ISCHEMIA. SEVERAL FOCI OF FREE AIR IS NOTED WITHIN THE RIGHT LOWER QUADRANT, WORRISOME FOR MICROPERFORATION OF RIGHT COLON. THERE ARE SEVERAL FOCI OF SUBCUTANEOUS AIR. CORRELATE THERE IS HISTORY OF RECENT IATROGENIC PROCEDURE. 2. 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 THERE IS ALSO THROMBOSIS OF THE SUPERIOR MESENTERIC VEIN. 3. Peripancreatic fluid, worrisome for acute pancreatitis. Recommend correlation with amylase and lipase levels. 4. Thickening of the estevez of the stomach and duodenum, worrisome for focal inflammation possibly secondary to adjacent pancreatitis. 5. Hepatomegaly. 6. Status post splenectomy. 7. Mild upper abdominal and pelvic ascites. Generalized anasarca. Patient seen and examined at the bedside. Patient just came back from the bathroom stating that she has had on and off diarrhea. She does report abdominal pain that starts in the epigastric region and radiates to her left back. She has tenderness palpation over the epigastric area as well as the left lower quadrant. Denies any tenderness to palpation over the right quadrant. Abdomen is soft on exam. There is tenderness palpation over the left side but there is no rebound or rigidity or guarding. Vital signs:Temperature 98.2/heart rate 56/respirations 18/blood pressure 142/80/pulse ox 100% on room air General: Patient currently lying in bed in no acute distress CVS: Sinus bradycardia Lungs: Clear to oscillation bilaterally Abdomen: Soft, tenderness palpation of the epigastric region as well as the left lower abdominal quadrant, no rebound or guarding or rigidity noted on exam, normal bowel sounds Neuro: Alert and oriented x3 Assessment and plan #1 pneumonia stenosis with possible microperforation of the right colon: I did speak with Dr. Westbrook to surgeon and discussed the case with him. At the current time we will put the patient on broad-spectrum antibiotics. N.p.o. except meds. IV fluids with normal saline. Pain control. Stat labs CBC BMP lactic acid PT INR/PTT. Monitor patient closely. Greater than 30 minutes of critical care time was spent on the care and management this patient. EDISON DOUGLAS Dec 07, 2018 01:29
[2018-12-07] MEDS ORDERED: LINEZOLID 600 MG/300 ML (PMX) 300 ML IVPB SCH (01:30)
[2018-12-07] MEDS: SOD CHLORIDE 0.9% 1,000 ML IV SCH ×2 (01:34→15:05)
[2018-12-07] MEDS: MEROPENEM 1 GM/50ML(PMX) 50 ML IVPB SCH ×3 (01:40→17:27)
[2018-12-07 02:08] VITALS: BP 126/71; PULSE 54; RESP 20
[2018-12-07] MEDS: LEVOFLOXACIN 750 MG TABLET PO SCH (05:35)
[2018-12-07] MEDS: PANTOPRAZOLE (EC) 40 MG TAB PO SCH ×2 (05:35→17:27)
[2018-12-07] MEDS: HYDROmorphONE 1 MG/ML SYG IV PRN ×3 (06:17→21:55)
[2018-12-07] MEDS: CREON (24K-76K-120K) 1 CAP PO SCH ×3 (08:00→17:27)
[2018-12-07] MEDS: LACTOBACILLUS RHAMNOSUS CAP PO SCH ×3 (08:00→17:27)
[2018-12-07 08:05] VITALS: BP 128/69; PULSE 55; RESP 18
[2018-12-07] MEDS: AZATHIOPRINE 50 MG TAB PO SCH (08:58)
[2018-12-07] MEDS: SUCRALFATE (100 MG/ML) 10ML CUP PO SCH ×4 (08:58→20:24)
[2018-12-07] MEDS: METHYLPREDNISOLONE 40 MG INJ IV SCH ×2 (08:59→20:23)
[2018-12-07] MEDS: CYCLOBENZAPRINE 10 MG TAB PO SCH ×3 (08:59→20:26)
[2018-12-07] MEDS: AMOXICILLIN 500 MG CAP PO SCH ×2 (09:00→20:25)
[2018-12-07] MEDS: NADOLOL 40 MG TAB PO SCH ×2 (09:00→20:25)
[2018-12-07] MEDS: COLCHICINE 0.6 MG TAB PO SCH ×2 (09:00→20:24)
[2018-12-07] MEDS: CALCIUM/VITAMIN D (500/200) TAB PO SCH (09:00)
[2018-12-07] MEDS: AMLODIPINE 10 MG TAB PO SCH ×2 (09:01→20:26)
[2018-12-07] MEDS: HEPARIN 5,000 UNIT/1 ML VIAL SC SCH (09:05)
--- NOTE | 2018-12-07 11:39 | CONS ---
Assessment/Plan Assessment/Plan Hospital Course (Demo Recall) 1. CT findings of pneumatosis intestinalis of right colon and hepatic flexure, concern for ischemia and microperforation of right colon; hemodynamically stable -vascular surgery consult for thrombosis -abx -judicious fluids -N.p.o. -Close monitoring -No emergent surgical intervention at this point however will need close monitoring> if unimproved or worsens may require surgical intervention 2. Portal venous thrombosis, thrombosis of superior mesenteric vein -Anticoagulation per medical team 3.Peripancreatic fluid with concern for acute pancreatitis; amylase and lipase within normal limits -fluid mgt 4. Liver cirrhosis with generalized anasarca -Hepatic optimization -Fluid management 5. Pleural effusion, pericardial effusion -Fluid management -Per cards/pulm 6. Lupus flare: Currently on steroids and colchicine -Per rheumatology 7. Obesity BMI: 34 -diet and exercise optimization -encourage weight loss 8. Leukocytosis: -Agree with antibiotics 9.Hypochromic anemia: -Monitor and transfuse as needed 10. Thrombocytosis: -dvt prophylaxis Thank you. Patient seen and examined in collaboration with Dr. Sanjay Westbrook. Consultation Date/Type/Reason Admit Date/Time Nov 29, 2018 at 06:15 Date of Consultation: Dec 07, 2018 Type of Consult Surgical Reason for Consultation Abdominal pain, pneumatosis, concern for perforation Date/Time of Note DATE: 12/07/18 TIME: 10:52 Hx of Present Illness Mayda Chase is a 33-year-old woman with multiple comorbidities who has been in and out of hospitalization with complaints of abdominal pain. Abdominal pain is predominantly in the left upper quadrant with radiation to the left flank. Aggravating factors include eating. More recently, she also reports diarrhea. She is currently being treated for pancreatitis (ongoing for the past few months), which is seen on CT however lipase and amylase are currently within normal limits. 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 Due to persistent abdominal pain, a CT was ordered which revealed pneumatosis intestinalis of right colon and hepatic flexure with concern for bowel ischemia, several foci of air was also noted within the right lower quadrant with concern for microperforation of the right colon. Additionally portal venous thrombosis and cavernous transformation of portal vein was also noted. Laboratory findings significant for leukocytosis as well as lactic acidosis. Lactic acidosis has since resolved. No associated fevers, chills, congested cough, chest pain, palpitations, nausea, vomiting, seizure, rash. General surgery was asked to evaluate. 12 point review of systems was performed and is negative except for stated in HPI. 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 Chronic liver cirrhosis with history of Esophageal varices -Last EGD and colonoscopy September 26, 2018 Home Meds Active Scripts Cyclobenzaprine Hcl* (Cyclobenzaprine Hcl*) 10 Mg Tablet, 10 MG PO TID, #15 TAB Prov:MICKY CHAN MD 11/26/18 Tramadol HCl (Tramadol HCl) 50 Mg Tablet, 50 MG PO Q4 PRN for PAIN, #20 TAB Prov:MICKY CHAN MD 11/26/18 Ondansetron Hcl* (Zofran*) 8 Mg Tablet, 8 MG PO Q6H PRN for NAUSEA AND OR VOM ITING, #20 TAB Prov:JENNY RAWLS MD 11/20/18 Levofloxacin* (Levaquin*) 750 Mg Tablet, 750 MG PO DAILY for 7 Days, TAB Prov:JENNY RAWLS MD 11/20/18 Sucralfate* (Carafate*) 1 Gm/10 Ml Susp, 1 GM PO QID for 30 Days, #1 EA 2 Refills Prov:LIUDMILA DUMONT MD 11/17/18 Metoclopramide Hcl* (Metoclopramide Hcl*) 10 Mg Tablet, 10 MG PO QID for 10 Days, #40 TAB Prov:LIUDMILA DUMONT MD 11/17/18 Acetaminophen* (Tylenol*) 325 Mg Tablet, 650 MG PO Q6H PRN for .PAIN 1-3 OR TEMP for 1 Day, TAB Prov:LIUDMILA DUMONT MD 11/17/18 Nadolol (Corgard) 40 Mg Tablet, 20 MG PO BID for 15 Days, #30 TAB Prov:LIUDMILA DUMONT MD 11/17/18 Pantoprazole* (Pantoprazole*) 40 Mg Tablet.dr, 40 MG PO BID@06,18 for 30 Days, #60 TAB 1 Refill Prov:LIUDMILA DUMONT MD 11/17/18 Reported Medications Amlodipine Besylate* (Amlodipine Besylate*) 10 Mg Tablet, 5 MG PO BID, #30 TAB 11/29/18 Calcium Carbonate/Vitamin D3 (Calcium 500 mg Chewable Tablet) 1 Each Tab.chew, 1 EACH PO DAILY, TAB.CHEW 11/14/18 Prednisone* (Prednisone*) 5 Mg Tab, 5 MG PO DAILY, TAB 11/14/18 Azathioprine* (Imuran*) 50 Mg Tab, 100 MG PO DAILY, TAB 11/14/18 Ergocalciferol (Vitamin D2) (VITAMIN D2) 50,000 Unit Capsule, 32160 UNIT PO QMONDAY 09/22/18 Medications Current Medications IV Flush (NS 3 ml) 3 ml PER PROTOCOL IV ; Start 11/29/18 at 07:00 Ondansetron HCl (Zofran Inj) 4 mg Q6H PRN IV NAUSEA/VOMITING Last administered on 12/06/18at 21:23; Admin Dose 4 MG; Start 11/29/18 at 07:00 Acetaminophen (Tylenol Tab) 650 mg Q6H PRN PO .PAIN 1-3 OR TEMP; Start 11/29/18 at 07:00 Acetaminophen/ Hydrocodone Bitart ([place] (5/325)) 1 tab Q6H PRN PO .MOD PAIN 4- 6 Last administered on 12/02/18at 11:08; Admin Dose 1 TAB; Start 11/29/18 at 07:00 Docusate Sodium (Colace) 100 mg Q12H PRN PO .CONSTIPATION; Start 11/29/18 at 07:00 Magnesium Hydroxide (Milk Of Mag) 30 ml DAILY PRN PO .CONSTIPATION; Start 11/29/18 at 07:00 Heparin Sodium (Porcine) (Heparin (5000 Units/1ml)) 5,000 unit Q12 SC Last administered on 12/07/18at 09:05; Admin Dose 5,000 UNIT; Start 11/29/18 at 09:00 Lorazepam (Ativan) 0.5 mg Q6H PRN IV ANXIETY; Start 11/29/18 at 07:00 Albuterol/ Ipratropium (Duoneb) 3 ml Q4H RESP THERAPY PRN HHN SHORTNESS OF BREATH; Start 11/29/18 at 07:00 Hydralazine HCl (Apresoline) 10 mg Q6H PRN IV for sys bp > 180; Start 11/29/18 at 07:00 Nitroglycerin (Nitroglycerin (Sl Tab) 0.4 Mg) 1 tab Q5M PRN SL ANGINA Last administered on 11/30/18 10:24; Admin Dose 1 TAB; Start 11/29/18 at 07:00 Amlodipine Besylate (Norvasc) 5 mg BID PO Last administered on 12/07/18 09:01; Admin Dose 5 MG; Start 11/30/18 at 09:00 Azathioprine (Imuran) 100 mg DAILY PO Last administered on 12/07/18 08:58; Admin Dose 100 MG; Start 11/30/18 at 09:00 Cyclobenzaprine HCl (Flexeril) 10 mg TID PO Last administered on 12/07/18 08:59; Admin Dose 10 MG; Start 11/30/18 at 09:00 Nadolol (Corgard) 20 mg BID PO Last administered on 12/07/18 09:00; Admin Dose 20 MG; Start 11/30/18 at 09:00 Tramadol HCl (Ultram) 50 mg Q4 PRN PO PAIN Last administered on 12/03/18 03:13; Admin Dose 50 MG; Start 11/30/18 at 00:00 Calcium/Vitamin D (Oyster Shell/ Vit-D (500/200)) 1 tab DAILY PO Last ad ministered on 12/07/18 09:00; Admin Dose 1 TAB; Start 11/30/18 at 09:00 Sucralfate (Carafate Susp) 1 gm QID PO Last administered on 12/07/18 08:58; Admin Dose 1 GM; Start 11/30/18 at 09:00 Metoclopramide HCl (Reglan) 10 mg Q6H PRN IV nausae Last administered on 12/06/18 02:23; Admin Dose 10 MG; Start 11/30/18 at 11:00 Colchicine (Colchicine) 0.6 mg BID PO Last administered on 12/07/18 09:00; A dmin Dose 0.6 MG; Start 11/30/18 at 12:30 Hydromorphone HCl (Dilaudid) 1 mg Q4H PRN IV SEVERE PAIN LEVEL 7-10 Last administered on 12/07/18 06:17; Admin Dose 1 MG; Start 12/02/18 at 12:30 Amylase/Lipase/ Protease (Creon ([id number])) 2 cap WITH MEALS PO Last administered on 12/06/18 17:51; Admin Dose 2 CAP; Start 12/02/18 at 18:00 Lactobacillus Acidophilus/ Rhamnosus (Culturelle) 1 cap WITH MEALS PO Last administered on 12/06/18 17:51; Admin Dose 1 CAP; Start 12/05/18 at 18:00 Amoxicillin (Amoxicillin) 500 mg BID PO Last administered on 12/07/18 09:00; Admin Dose 500 MG; Start 12/06/18 at 09:00 Levofloxacin (Levaquin) 750 mg DAILY@06 PO Last administered on 12/07/18 05:35; Admin Dose 750 MG; Start 12/06/18 at 06:00 Pantoprazole (Protonix Tab) 40 mg BID@06,18 PO Last administered on 12/07/18 05:35; Admin Dose 40 MG; Start 12/05/18 at 18:00 Methylprednisolone Sodium Succinate (Solu-Medrol) 20 mg BID IV Last administered on 12/07/18 08:59; Admin Dose 20 MG; Start 12/05/18 at 21:00 Meropenem/Sodium Chloride 50 ml @ 100 mls/hr Q8H IVPB Last administered on 12/07/18 08:56; Admin Dose 100 MLS/HR; Start 12/07/18 at 01:30 Sodium Chloride 1,000 ml @ 80 mls/hr [id number] IV Last administered on 12/07/18 01:34; Admin Dose 80 MLS/HR; Start 12/07/18 at 01:30 Allergies: Coded Allergies: avocado (Verified Allergy, Unknown, bumps inside her mouth, 11/16/18) vancomycin (Verified Allergy, Unknown, 11/14/18) Past Surgical History as above Past Surgical Hx: other Family History Significant Family History: no pertinent family hx Social History Alcohol Use: none Smoking Status: Never smoker Exam/Review of Systems Exam Vitals Vital Signs Date Temp Pulse Resp B/P (MAP) Pulse Ox O2 O2 Flow FiO2 Time Delivery Rate 12/07/18 98.3 55 18 128/69 100 Room Air 08:05 (88) Intake and Output 12/06/18 12/06/18 12/07/18 1515:00 23:00 07:00 IntakeIntake Total 720 ml 370 ml BalanceBalance 720 ml 370 ml Constitutional: alert, oriented Psych: nl mood/affect; No anxiety Head: normocephalic, atraumatic Eyes: nl conjunctiva, EOMI, nl lids, nl sclera ENMT: nl external ears & nose, nl lips & teeth, mucosa pink and moist Neck: supple, non-tender; No jvd Respiratory: normal air movement; No congested cough Cardiovascular: regular rate and rhythm, nl pulses; No edema Gastrointestinal: soft, tender (midepigastric, LUQ) Genitourinary - Female: nl external genitalia Musculoskeletal: nl extremities to inspection, nl gait and stance Extremities: normal pulses Neurological: nl mental status, nl speech, nl strength Skin: No rash or lesions Lymph: No nl lymph nodes Results Result Diagram: 12/07/18 0111 12/07/18 0111 Results 24hrs Laboratory Tests Test 12/07/18 01:11 12/07/18 07:21 White Blood Count 14.6 H Red Blood Count 3.87 L Hemoglobin 9.8 L Hematocrit 33.4 L Mean Corpuscular Volume 86.3 Mean Corpuscular Hemoglobin 25.3 L Mean Corpuscular Hemoglobin Concent 29.3 L Red Cell Distribution Width 16.7 H Platelet Count 581 H Mean Platelet Volume 9.5 Immature Granulocytes % 1.700 H Neutrophils % 90.6 H Lymphocytes % 0.0 L Monocytes % 7.2 Eosinophils % 0.4 Basophils % 0.1 Nucleated Red Blood Cells % 13.3 H Immature Granulocytes # 0.250 H Neutrophils # 13.2 H Lymphocytes # 0.0 L Monocytes # 1.1 H Eosinophils # 0.1 Basophils # 0.0 Nucleated Red Blood Cells # 1.9 H Prothrombin Time 13.9 Prothrombin Time Ratio 1.1 INR International Normalized Ratio 1.06 Activated Partial Thromboplast Time 27.5 Sodium Level 139 Potassium Level 4.0 Chloride Level 103 Carbon Dioxide Level 30 Anion Gap 6 Blood Urea Nitrogen 20 Creatinine 0.59 Est Glomerular Filtrat Rate mL/min > 60 Glucose Level 133 Lactic Acid Level 2.7 *H 1.8 Calcium Level 9.0 Phosphorus Level 2.8 Magnesium Level 2.2 Medications Medication Current Medications IV Flush (NS 3 ml) 3 ml PER PROTOCOL IV ; Start 11/29/18 at 07:00 Ondansetron HCl (Zofran Inj) 4 mg Q6H PRN IV NAUSEA/VOMITING Last administered on 12/06/18at 21:23; Admin Dose 4 MG; Start 11/29/18 at 07:00 Acetaminophen (Tylenol Tab) 650 mg Q6H PRN PO .PAIN 1-3 OR TEMP; Start 11/29/18 at 07:00 Acetaminophen/ Hydrocodone Bitart ([place] (5/325)) 1 tab Q6H PRN PO .MOD PAIN 4- 6 Last administered on 12/02/18 11:08; Admin Dose 1 TAB; Start 11/29/18 at 07:00 Docusate Sodium (Colace) 100 mg Q12H PRN PO .CONSTIPATION; Start 11/29/18 at 07:00 Magnesium Hydroxide (Milk Of Mag) 30 ml DAILY PRN PO .CONSTIPATION; Start 11/29/18 at 07:00 Heparin Sodium (Porcine) (Heparin (5000 Units/1ml)) 5,000 unit Q12 SC Last administered on 12/07/18at 09:05; Admin Dose 5,000 UNIT; Start 11/29/18 at 09:00 Lorazepam (Ativan) 0.5 mg Q6H PRN IV ANXIETY; Start 11/29/18 at 07:00 Albuterol/ Ipratropium (Duoneb) 3 ml Q4H RESP THERAPY PRN HHN SHORTNESS OF BREATH; Start 11/29/18 at 07:00 Hydralazine HCl (Apresoline) 10 mg Q6H PRN IV for sys bp > 180; Start 11/29/18 at 07:00 Nitroglycerin (Nitroglycerin (Sl Tab) 0.4 Mg) 1 tab Q5M PRN SL ANGINA Last administered on 11/30/18 10:24; Admin Dose 1 TAB; Start 11/29/18 at 07:00 Amlodipine Besylate (Norvasc) 5 mg BID PO Last administered on 12/07/18at 09:01; Admin Dose 5 MG; Start 11/30/18 at 09:00 Azathioprine (Imuran) 100 mg DAILY PO Last administered on 12/07/18at 08:58; Admin Dose 100 MG; Start 11/30/18 at 09:00 Cyclobenzaprine HCl (Flexeril) 10 mg TID PO Last administered on 12/07/18 08:59; Admin Dose 10 MG; Start 11/30/18 at 09:00 Nadolol (Corgard) 20 mg BID PO Last administered on 12/07/18 09:00; Admin Dose 20 MG; Start 11/30/18 at 09:00 Tramadol HCl (Ultram) 50 mg Q4 PRN PO PAIN Last administered on 12/03/18 03:13; Admin Dose 50 MG; Start 11/30/18 at 00:00 Calcium/Vitamin D (Oyster Shell/ Vit-D (500/200)) 1 tab DAILY PO Last administered on 12/07/18 09:00; Admin Dose 1 TAB; Start 11/30/18 at 09:00 Sucralfate (Carafate Susp) 1 gm QID PO Last administered on 12/07/18 08:58; Admin Dose 1 GM; Start 11/30/18 at 09:00 Metoclopramide HCl (Reglan) 10 mg Q6H PRN IV nausae Last administered on 12/06/18 02:23; Admin Dose 10 MG; Start 11/30/18 at 11:00 Colchicine (Colchicine) 0.6 mg BID PO Last administered on 12/07/18 09:00; Admin Dose 0.6 MG; Start 11/30/18 at 12:30 Hydromorphone HCl (Dilaudid) 1 mg Q4H PRN IV SEVERE PAIN LEVEL 7-10 Last administered on 12/07/18 06:17; Admin Dose 1 MG; Start 12/02/18 at 12:30 Amylase/Lipase/ Protease (Creon ([id number])) 2 cap WITH MEALS PO Last administered on 12/06/18 17:51; Admin Dose 2 CAP; Start 12/02/18 at 18:00 Lactobacillus Acidophilus/ Rhamnosus (Culturelle) 1 cap WITH MEALS PO Last administered on 12/06/18 17:51; Admin Dose 1 CAP; Start 12/05/18 at 18:00 Amoxicillin (Amoxicillin) 500 mg BID PO Last administered on 12/07/18 09:00; Admin Dose 500 MG; Start 12/06/18 at 09:00 Levofloxacin (Levaquin) 750 mg DAILY@06 PO Last administered on 12/07/18 05:35; Admin Dose 750 MG; Start 12/06/18 at 06:00 Pantoprazole (Protonix Tab) 40 mg BID@06,18 PO Last administered on 12/07/18 05:35; Admin Dose 40 MG; Start 12/05/18 at 18:00 Methylprednisolone Sodium Succinate (Solu-Medrol) 20 mg BID IV Last administered on 12/07/18 08:59; Admin Dose 20 MG; Start 12/05/18 at 21:00 Meropenem/Sodium Chloride 50 ml @ 100 mls/hr Q8H IVPB Last administered on 12/07/18 08:56; Admin Dose 100 MLS/HR; Start 12/07/18 at 01:30 Sodium Chloride 1,000 ml @ 80 mls/hr [id number] IV Last administered on 12/07/18 01:34; Admin Dose 80 MLS/HR; Start 12/07/18 at 01:30 FARZANA RENEE NP Dec 07, 2018 11:05
[2018-12-07] MEDS ORDERED: HEPARIN 1000 UNITS/ML 10 ML INJ IV PRN ×2 (13:00)
[2018-12-07] MEDS ORDERED: HEPARIN 1000 UNITS/ML 10 ML INJ IV ONE (13:00)
--- NOTE | 2018-12-07 13:43 | CONS ---
Consult Date/Type/Reason Admit Date/Time Nov 29, 2018 at 06:15 Initial Consult Date 12/01/18 Type of Consultation: Rheumatology Date/Time of Note DATE: 12/07/18 TIME: 13:41 Subjective Continues with abdominal pain, is npo for now. Objective Vitals Vital Signs Date Temp Pulse Resp B/P (MAP) Pulse Ox O2 O2 Flow FiO2 Time Delivery Rate 12/07/18 98.3 55 18 128/69 100 Room Air 08:05 (88) Intake and Output 12/06/18 12/06/18 12/07/18 1515:00 23:00 07:00 IntakeIntake Total 720 ml 370 ml BalanceBalance 720 ml 370 ml Exam GENERAL: Alert and oriented in no acute distress, SKIN: No rashes or new lesions. HEENT: No acute oral or ocular lesions. NECK: Supple. No lymphadenopathy. CARDIOVASCULAR: Regular rate and rhythm. LUNGS: Clear to auscultation bilaterally. No wheezing or rhonchi. ABDOMEN: Soft, mild epigastric tenderness. No rebound tenderness. Bowel soun ds are present. EXTREMITIES: No Edema. Mild cyanosis fingers. MUSCULOSKELETAL: No synovitis NEUROL: Grossly intact Results/Medications Result Diagram: 12/07/18 0111 12/07/18 0111 Results 24 hrs Laboratory Tests Test 12/07/18 01:11 12/07/18 07:21 White Blood Count 14.6 H Red Blood Count 3.87 L Hemoglobin 9.8 L Hematocrit 33.4 L Mean Corpuscular Volume 86.3 Mean Corpuscular Hemoglobin 25.3 L Mean Corpuscular Hemoglobin Concent 29.3 L Red Cell Distribution Width 16.7 H Platelet Count 581 H Mean Platelet Volume 9.5 Immature Granulocytes % 1.700 H Neutrophils % 90.6 H Lymphocytes % 0.0 L Monocytes % 7.2 Eosinophils % 0.4 Basophils % 0.1 Nucleated Red Blood Cells % 13.3 H Immature Granulocytes # 0.250 H Neutrophils # 13.2 H Lymphocytes # 0.0 L Monocytes # 1.1 H Eosinophils # 0.1 Basophils # 0.0 Nucleated Red Blood Cells # 1.9 H Prothrombin Time 13.9 Prothrombin Time Ratio 1.1 INR International Normalized Ratio 1.06 Activated Partial Thromboplast Time 27.5 Sodium Level 139 Potassium Level 4.0 Chloride Level 103 Carbon Dioxide Level 30 Anion Gap 6 Blood Urea Nitrogen 20 Creatinine 0.59 Est Glomerular Filtrat Rate mL/min > 60 Glucose Level 133 Lactic Acid Level 2.7 *H 1.8 Calcium Level 9.0 Phosphorus Level 2.8 Magnesium Level 2.2 Home Meds Active Scripts Cyclobenzaprine Hcl* (Cyclobenzaprine Hcl*) 10 Mg Tablet, 10 MG PO TID, #15 TAB Prov:MICKY CHAN MD 11/26/18 Tramadol HCl (Tramadol HCl) 50 Mg Tablet, 50 MG PO Q4 PRN for PAIN, #20 TAB Prov:MICKY CHAN MD 11/26/18 Ondansetron Hcl* (Zofran*) 8 Mg Tablet, 8 MG PO Q6H PRN for NAUSEA AND OR VOMITING, #20 TAB Prov:JENNY RAWLS MD 11/20/18 Levofloxacin* (Levaquin*) 750 Mg Tablet, 750 MG PO DAILY for 7 Days, TAB Prov:JENNY RAWLS MD 11/20/18 Sucralfate* (Carafate*) 1 Gm/10 Ml Susp, 1 GM PO QID for 30 Days, #1 EA 2 Refills Prov:LIUDMILA DUMONT MD 11/17/18 Metoclopramide Hcl* (Metoclopramide Hcl*) 10 Mg Tablet, 10 MG PO QID for 10 Days, #40 TAB Prov:LIUDMILA DUMONT MD 11/17/18 Acetaminophen* (Tylenol*) 325 Mg Tablet, 650 MG PO Q6H PRN for .PAIN 1-3 OR TEMP for 1 Day, TAB Prov:LIUDMILA DUMONT MD 11/17/18 Nadolol (Corgard) 40 Mg Tablet, 20 MG PO BID for 15 Days, #30 TAB Prov:LIUDMILA DUMONT MD 11/17/18 Pantoprazole* (Pantoprazole*) 40 Mg Tablet.dr, 40 MG PO BID@06,18 for 30 Days, #60 TAB 1 Refill Prov:LIUDMILA DUMONT MD 11/17/18 Reported Medications Amlodipine Besylate* (Amlodipine Besylate*) 10 Mg Tablet, 5 MG PO BID, #30 TAB 11/29/18 Calcium Carbonate/Vitamin D3 (Calcium 500 mg Chewable Tablet) 1 Each Tab.chew, 1 EACH PO DAILY, TAB.CHEW 11/14/18 Prednisone* (Prednisone*) 5 Mg Tab, 5 MG PO DAILY, TAB 11/14/18 Azathioprine* (Imuran*) 50 Mg Tab, 100 MG PO DAILY, TAB 11/14/18 Ergocalciferol (Vitamin D2) (VITAMIN D2) 50,000 Unit Capsule, 09417 UNIT PO QMONDAY 09/22/18 Medications Current Medications IV Flush (NS 3 ml) 3 ml PER PROTOCOL IV ; Start 11/29/18 at 07:00 Ondansetron HCl (Zofran Inj) 4 mg Q6H PRN IV NAUSEA/VOMITING Last administered on 12/06/18at 21:23; Admin Dose 4 MG; Start 11/29/18 at 07:00 Acetaminophen (Tylenol Tab) 650 mg Q6H PRN PO .PAIN 1-3 OR TEMP; Start 11/29/18 at 07:00 Acetaminophen/ Hydrocodone Bitart (Pep (5/325)) 1 tab Q6H PRN PO .MOD PAIN 4- 6 Last administered on 12/02/18at 11:08; Admin Dose 1 TAB; Start 11/29/18 at 07:00 Docusate Sodium (Colace) 100 mg Q12H PRN PO .CONSTIPATION; Start 11/29/18 at 07:00 Magnesium Hydroxide (Milk Of Mag) 30 ml DAILY PRN PO .CONSTIPATION; Start 11/29/18 at 07:00 Lorazepam (Ativan) 0.5 mg Q6H PRN IV ANXIETY; Start 11/29/18 at 07:00 Albuterol/ Ipratropium (Duoneb) 3 ml Q4H RESP THERAPY PRN HHN SHORTNESS OF BREATH; Start 11/29/18 at 07:00 Hydralazine HCl (Apresoline) 10 mg Q6H PRN IV for sys bp > 180; Start 11/29/18 at 07:00 Nitroglycerin (Nitroglycerin (Sl Tab) 0.4 Mg) 1 tab Q5M PRN SL ANGINA Last administered on 11/30/18at 10:24; Admin Dose 1 TAB; Start 11/29/18 at 07:00 Amlodipine Besylate (Norvasc) 5 mg BID PO Last administered on 12/07/18at 09:01; Admin Dose 5 MG; Start 11/30/18 at 09:00 Azathioprine (Imuran) 100 mg DAILY PO Last administered on 12/07/18 08:58; Admin Dose 100 MG; Start 11/30/18 at 09:00 Cyclobenzaprine HCl (Flexeril) 10 mg TID PO Last administered on 12/07/18 08:59; Admin Dose 10 MG; Start 11/30/18 at 09:00 Nadolol (Corgard) 20 mg BID PO Last administered on 12/07/18 09:00; Admin Dose 20 MG; Start 11/30/18 at 09:00 Tramadol HCl (Ultram) 50 mg Q4 PRN PO PAIN Last administered on 12/03/18 03:13; Admin Dose 50 MG; Start 11/30/18 at 00:00 Calcium/Vitamin D (Oyster Shell/ Vit-D (500/200)) 1 tab DAILY PO Last administered on 12/07/18 09:00; Admin Dose 1 TAB; Start 11/30/18 at 09:00 Sucralfate (Carafate Susp) 1 gm QID PO Last administered on 12/07/18 08:58; Admin Dose 1 GM; Start 11/30/18 at 09:00 Metoclopramide HCl (Reglan) 10 mg Q6H PRN IV nausae Last administered on 11/26 02:23; Admin Dose 10 MG; Start 11/30/18 at 11:00 Colchicine (Colchicine) 0.6 mg BID PO Last administered on 12/07/18 09:00; Admin Dose 0.6 MG; Start 11/30/18 at 12:30 Hydromorphone HCl (Dilaudid) 1 mg Q4H PRN IV SEVERE PAIN LEVEL 7-10 Last administered on 12/07/18 06:17; Admin Dose 1 MG; Start 12/02/18 at 12:30 Amylase/Lipase/ Protease (Creon ([id number])) 2 cap WITH MEALS PO Last admi nistered on 12/06/18 17:51; Admin Dose 2 CAP; Start 12/02/18 at 18:00 Lactobacillus Acidophilus/ Rhamnosus (Culturelle) 1 cap WITH MEALS PO Last administered on 12/06/18 17:51; Admin Dose 1 CAP; Start 12/05/18 at 18:00 Amoxicillin (Amoxicillin) 500 mg BID PO Last administered on 12/07/18at 09:00; Admin Dose 500 MG; Start 12/06/18 at 09:00 Levofloxacin (Levaquin) 750 mg DAILY@06 PO Last administered on 12/07/18at 05:35; Admin Dose 750 MG; Start 12/06/18 at 06:00 Pantoprazole (Protonix Tab) 40 mg BID@06,18 PO Last administered on 12/07/18 05:35; Admin Dose 40 MG; Start 12/05/18 at 18:00 Methylprednisolone Sodium Succinate (Solu-Medrol) 20 mg BID IV Last administered on 12/07/18 08:59; Admin Dose 20 MG; Start 12/05/18 at 21:00 Meropenem/Sodium Chloride 50 ml @ 100 mls/hr Q8H IVPB Last administered on 12/07/18 08:56; Admin Dose 100 MLS/HR; Start 12/07/18 at 01:30 Sodium Chloride 1,000 ml @ 80 mls/hr [id number] IV Last administered on 12/07/18at 01:34; Admin Dose 80 MLS/HR; Start 12/07/18 at 01:30 Heparin Sodium (Porcine) (Heparin (1000 Units/ml)) 7,200 unit PER PROTOCOL PRN IV aPTT<47; Start 12/07/18 at 13:00 Heparin Sodium (Porcine) (Heparin (1000 Units/ml)) 3,600 unit PER PROTOCOL PRN IV aPTT<47-57; Start 12/07/18 at 13:00 Heparin Sodium (Porcine) 250 ml @ 16 mls/hr PER PROTOCOL IV ; Start 12/07/18 at 14:00 Assessment/Plan Hospital Course (Demo Recall) Assessment/ Plan: 1. Probable pneumonia Improving. 2.. Lupus flare possibly. Agree with decreasing steroids as clinically improving. Decrease Solumedrol to 10 mg BID 3.. 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 Repeat an echo per cardiology. Continue the colchicine 0.6 b.i.d. 4.. Pancreatitis. The patient seems to be improving. 5.. Pleural effusion. Appears to be more consistent with infection rather than Lupus flare, per Pulmonary. 6. Cirrhosis with esophageal varices. LFTs are within normal limits. We will just continue to follow. 7. Raynaud's syndrome, status post finger amputation. Raynaud's precautions. 8. CT findings of pneumatosis intestinalis of right colon and hepatic flexure, concern for ischemia and microperforation of right colon; hemodynamically stable -vascular surgery consult for thrombosis -abx -judicious fluids -N.p.o. -Close monitoring -No emergent surgical intervention at this point however will need close monitoring> if unimproved or worsens may require surgical intervention 9. Portal venous thrombosis, thrombosis of superior mesenteric vein -Anticoagulation per medical team LILY AGRAWAL MD Dec 07, 2018 13:43
--- NOTE | 2018-12-07 14:15 | PN ---
Date/Time of Note Date/Time of Note DATE: 12/07/18 TIME: 14:10 Assessment/Plan VTE Prophylaxis Risk score (from Ns)>0 risk: 2 SCD applied (from Ns): No SCD contraindicated: other Pharmacological prophylaxis: heparin Lines/Catheters IV Catheter Type (from [facility]): Peripheral IV Urinary Cath still in place: No Assessment/Plan Hospital Course SUBJECTIVE: Continues to complain of abdominal pain. Continues to complain of diarrhea. Denies any dyspnea. OBJECTIVE: Physical Exam General: Obese 33 year-old female lying in bed in no apparent distress. HEENT: Normocephalic, atraumatic. Eyes: Anicteric sclerae, conjunctivae clear. ENT: Nasal septum midline, oral mucosa moist. Neck supple, no JVD noticed. Respiratory: Bilaterally diminished breath sounds. No use of accessory muscles of respiration. No adventitious breath sounds. Cardiovascular: S1, S2 heard. No murmurs or gallops. Abdomen: Soft and nondistended. Diffuse tenderness. Bowel sounds positive in all 4 quadrants. Genitourinary: Deferred. Extremities: No cyanosis, no clubbing, no edema. Peripheral pulses palpable. Neurologic: Cranial nerves II through XII grossly intact. The patient is awake, alert, and oriented. Skin: Normal skin turgor. No skin rashes. Labs & Vitals per chart ASSESSMENT & PLAN 33-year-old female with comorbidities including lupus, gastritis, hypertension, chronic liver cirrhosis with history of esophageal varices, Raynaud's syndrome with history of finger amputation, and obesity who came to the emergency room with chief complaint of epigastric abdominal pain with evidence of underlying pancreatitis, who was admitted to inpatient setting for further treatment and evaluation. 1. Abdominal pain. CT of the abdomen and pelvis on showing acute pancreatitis. Repeat abdominal CT on 12/06/2018 showed pneumatosis intestinalis cyst of the right colon and hepatic flexure, raising concerning for bowel ischemia with several foci of free air in the right lower quadrant worrisome for microperforation of the right colon. General surgery has been consulted. The patient was started on antimicrobial therapy including coverage for anaerobes. 2. 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 Vascular surgery consult has been obtained. Vascular surgery recommended anticoagulation. 3. Acute pancreatitis. Continue Creon. Continue gastroenterology recommendations. 4. Lupus flare. Continue rheumatology recommendations. Continue steroids. 5. History of extrinsic gastric ulcers. Continue PPI and Carafate. 6. Chronic liver cirrhosis with history of esophageal varices. Being followed by gastroenterology. Continue nonselective beta-blockers. 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 Continue colchicine and steroids. 8. History of Raynaud's syndrome. Status post right middle finger amputation. Continue Raynaud's precautions. 9. Diarrhea. Continue probiotics. Stool cultures showing coliform bacteria. 10. Obesity. BMI more than 34 kg/m. Advised weight reduction. 11. Hypertension. Continue antihypertensives. 12. Parapneumonic effusion. On antimicrobials. Pulmonology following. 13. Fluids, electrolytes, and nutrition. NPO except for medications. IVFs. 14. DVT prophylaxis. Heparin gtt. 15. Plan. Continue pain control. Continue antimicrobials. Continue anticoagulation. The patient was seen in collaboration with Dr. Finley. Result Diagram: 12/07/18 0111 12/07/18 0111 Results 24hrs Laboratory Tests Test 12/07/18 01:11 12/07/18 07:21 White Blood Count 14.6 H Red Blood Count 3.87 L Hemoglobin 9.8 L Hematocrit 33.4 L Mean Corpuscular Volume 86.3 Mean Corpuscular Hemoglobin 25.3 L Mean Corpuscular Hemoglobin Concent 29.3 L Red Cell Distribution Width 16.7 H Platelet Count 581 H Mean Platelet Volume 9.5 Immature Granulocytes % 1.700 H Neutrophils % 90.6 H Lymphocytes % 0.0 L Monocytes % 7.2 Eosinophils % 0.4 Basophils % 0.1 Nucleated Red Blood Cells % 13.3 H Immature Granulocytes # 0.250 H Neutrophils # 13.2 H Lymphocytes # 0.0 L Monocytes # 1.1 H Eosinophils # 0.1 Basophils # 0.0 Nucleated Red Blood Cells # 1.9 H Prothrombin Time 13.9 Prothrombin Time Ratio 1.1 INR International Normalized Ratio 1.06 Activated Partial Thromboplast Time 27.5 Sodium Level 139 Potassium Level 4.0 Chloride Level 103 Carbon Dioxide Level 30 Anion Gap 6 Blood Urea Nitrogen 20 Creatinine 0.59 Est Glomerular Filtrat Rate mL/min > 60 Glucose Level 133 Lactic Acid Level 2.7 *H 1.8 Calcium Level 9.0 Phosphorus Level 2.8 Magnesium Level 2.2 Exam/Review of Systems Exam Vitals Vital Signs Date Temp Pulse Resp B/P (MAP) Pulse Ox O2 O2 Flow FiO2 Time Delivery Rate 12/07/18 98.3 55 18 128/69 100 Room Air 08:05 (88) Intake and Output 12/06/18 12/06/18 12/07/18 1515:00 23:00 07:00 IntakeIntake Total 720 ml 370 ml BalanceBalance 720 ml 370 ml Results Results 24hrs Laboratory Tests Test 12/07/18 01:11 12/07/18 07:21 White Blood Count 14.6 H Red Blood Count 3.87 L Hemoglobin 9.8 L Hematocrit 33.4 L Mean Corpuscular Volume 86.3 Mean Corpuscular Hemoglobin 25.3 L Mean Corpuscular Hemoglobin Concent 29.3 L Red Cell Distribution Width 16.7 H Platelet Count 581 H Mean Platelet Volume 9.5 Immature Granulocytes % 1.700 H Neutrophils % 90.6 H Lymphocytes % 0.0 L Monocytes % 7.2 Eosinophils % 0.4 Basophils % 0.1 Nucleated Red Blood Cells % 13.3 H Immature Granulocytes # 0.250 H Neutrophils # 13.2 H Lymphocytes # 0.0 L Monocytes # 1.1 H Eosinophils # 0.1 Basophils # 0.0 Nucleated Red Blood Cells # 1.9 H Prothrombin Time 13.9 Prothrombin Time Ratio 1.1 INR International Normalized Ratio 1.06 Activated Partial Thromboplast Time 27.5 Sodium Level 139 Potassium Level 4.0 Chloride Level 103 Carbon Dioxide Level 30 Anion Gap 6 Blood Urea Nitrogen 20 Creatinine 0.59 Est Glomerular Filtrat Rate mL/min > 60 Glucose Level 133 Lactic Acid Level 2.7 *H 1.8 Calcium Level 9.0 Phosphorus Level 2.8 Magnesium Level 2.2 Medications Medication Current Medications IV Flush (NS 3 ml) 3 ml PER PROTOCOL IV ; Start 11/29/18 at 07:00 Ondansetron HCl (Zofran Inj) 4 mg Q6H PRN IV NAUSEA/VOMITING Last administered on 12/06/18at 21:23; Admin Dose 4 MG; Start 11/29/18 at 07:00 Acetaminophen (Tylenol Tab) 650 mg Q6H PRN PO .PAIN 1-3 OR TEMP; Start 11/29/18 at 07:00 Acetaminophen/ Hydrocodone Bitart ([place] (5/325)) 1 tab Q6H PRN PO .MOD PAIN 4- 6 Last administered on 12/02/18 11:08; Admin Dose 1 TAB; Start 11/29/18 at 07:00 Docusate Sodium (Colace) 100 mg Q12H PRN PO .CONSTIPATION; Start 11/29/18 at 07:00 Magnesium Hydroxide (Milk Of Mag) 30 ml DAILY PRN PO .CONSTIPATION; Start 11/29/18 at 07:00 Lorazepam (Ativan) 0.5 mg Q6H PRN IV ANXIETY; Start 11/29/18 at 07:00 Albuterol/ Ipratropium (Duoneb) 3 ml Q4H RESP THERAPY PRN HHN SHORTNESS OF BREATH; Start 11/29/18 at 07:00 Hydralazine HCl (Apresoline) 10 mg Q6H PRN IV for sys bp > 180; Start 11/29/18 at 07:00 Nitroglycerin (Nitroglycerin (Sl Tab) 0.4 Mg) 1 tab Q5M PRN SL ANGINA Last administered on 11/30/18 10:24; Admin Dose 1 TAB; Start 11/29/18 at 07:00 Amlodipine Besylate (Norvasc) 5 mg BID PO Last administered on 12/07/18 09:01; Admin Dose 5 MG; Start 11/30/18 at 09:00 Azathioprine (Imuran) 100 mg DAILY PO Last administered on 12/07/18 08:58; Admin Dose 100 MG; Start 11/30/18 at 09:00 Cyclobenzaprine HCl (Flexeril) 10 mg TID PO Last administered on 12/07/18 08:59; Admin Dose 10 MG; Start 11/30/18 at 09:00 Nadolol (Corgard) 20 mg BID PO Last administered on 12/07/18 09:00; Admin Dose 20 MG; Start 11/30/18 at 09:00 Tramadol HCl (Ultram) 50 mg Q4 PRN PO PAIN Last administered on 12/03/18 03:13; Admin Dose 50 MG; Start 11/30/18 at 00:00 Calcium/Vitamin D (Oyster Shell/ Vit-D (500/200)) 1 tab DAILY PO Last administered on 12/07/18 09:00; Admin Dose 1 TAB; Start 11/30/18 at 09:00 Sucralfate (Carafate Susp) 1 gm QID PO Last administered on 12/07/18 08:58; Admin Dose 1 GM; Start 11/30/18 at 09:00 Metoclopramide HCl (Reglan) 10 mg Q6H PRN IV nausae Last administered on 12/06/18 02:23; Admin Dose 10 MG; Start 11/30/18 at 11:00 Colchicine (Colchicine) 0.6 mg BID PO Last administered on 12/07/18 09:00; Admin Dose 0.6 MG; Start 11/30/18 at 12:30 Hydromorphone HCl (Dilaudid) 1 mg Q4H PRN IV SEVERE PAIN LEVEL 7-10 Last administered on 12/07/18 06:17; Admin Dose 1 MG; Start 12/02/18 at 12:30 Amylase/Lipase/ Protease (Creon ([id number])) 2 cap WITH MEALS PO Last administered on 12/06/18 17:51; Admin Dose 2 CAP; Start 12/02/18 at 18:00 Lactobacillus Acidophilus/ Rhamnosus (Culturelle) 1 cap WITH MEALS PO Last administered on 12/06/18 17:51; Admin Dose 1 CAP; Start 12/05/18 at 18:00 Amoxicillin (Amoxicillin) 500 mg BID PO Last administered on 12/07/18 09:00; Admin Dose 500 MG; Start 12/06/18 at 09:00 Levofloxacin (Levaquin) 750 mg DAILY@06 PO Last administered on 12/07/18 05:35; Admin Dose 750 MG; Start 12/06/18 at 06:00 Pantoprazole (Protonix Tab) 40 mg BID@06,18 PO Last administered on 12/07/18 05:35; Admin Dose 40 MG; Start 12/05/18 at 18:00 Meropenem/Sodium Chloride 50 ml @ 100 mls/hr Q8H IVPB Last administered on 12/07/18 08:56; Admin Dose 100 MLS/HR; Start 12/07/18 at 01:30 Sodium Chloride 1,000 ml @ 80 mls/hr [id number] IV Last administered on 12/07/18 01:34; Admin Dose 80 MLS/HR; Start 12/07/18 at 01:30 Heparin Sodium (Porcine) (Heparin (1000 Units/ml)) 7,200 unit PER PROTOCOL PRN IV aPTT<47; Start 12/07/18 at 13:00 Heparin Sodium (Porcine) (Heparin (1000 Units/ml)) 3,600 unit PER PROTOCOL PRN IV aPTT<47-57; Start 12/07/18 at 13:00 Heparin Sodium (Porcine) 250 ml @ 16 mls/hr PER PROTOCOL IV ; Start 12/07/18 at 14:00 Methylprednisolone Sodium Succinate (Solu-Medrol) 10 mg BID IV ; Start 12/07/18 at 21:00 MERCY GALLEGOS NP Dec 07, 2018 14:15
[2018-12-07 14:50] VITALS: BP 128/76; PULSE 74; RESP 18
[2018-12-07] MEDS: HEPARIN 25000 UNITS/250 ML 250 ML IV SCH (14:52)
--- NOTE | 2018-12-07 16:05 | PN ---
Date/Time of Note Date/Time of Note DATE: 12/07/18 TIME: 16:01 Assessment/Plan VTE Prophylaxis Risk score (from Nsg)>0 risk: 2 SCD applied (from Ns): No SCD contraindicated: other (scds) Pharmacological prophylaxis: other (scds) Lines/Catheters IV Catheter Type (from [facility]): Peripheral IV Urinary Cath still in place: No Assessment/Plan Hospital Course Assessment/Plan Assessment: Epigastric pain-with radiation to left upper quadrant and left flank/back -CT is concerning for pancreatitis, however lipase and amylase WNL -Repeat abdominal CT on 12/06/2018 showed pneumatosis intestinalis cyst of the right colon and hepatic flexure, raising concerning for bowel ischemia with a several foci of free air in the right lower quadrant worrisome for micrope rforation of the right colon. 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 Left pleural effusion Diarrhea -Stool Cx- coliform Pericardial effusion, moderate -Echocardiogram - Small to borderline moderate circumferential pericardial effusion without evidence of tamponade. EF 55% Normocytic Anemia Thrombocytosis Recent History Hematemesis EGD 11/15/2018 Extensive ulceration of the distal esophagus, rule out opportunistic infection, biopsies obtained. Grade II/IV esophageal varices. No stigmata of recent bleeding. No therapeutic intervention required Mild gastritis versus portal gastropathy, Otherwise normal EGD Stomach biopsy negative for H. pylori infection, no evidence of intestinal metaplasia, dysplasia, or malignancy Esophageal ulcer biopsy mucosa showing moderate chronic inflammation no squamous mucosa is present. No goblet cells are identified, no H. pylori is identified, no evidence of dysplasia or malignancy SLE/Rheumatoid arthritis/Raynaud's syndrome -On prednisone. History of Splenectomy Depression HTN Hx of EGD/colonoscopy 09/26/18 Colonoscopy 09/26/2018colitis more significant in the area of the rectum moderate size internal hemorrhoidsbiopsy negative for evidence of colitis EGD grade II/IV esophageal varices, severe gastritisbiopsies negative for H. pylori Liver cirrhosis- with hx of EV -Hepatitis serology negative -ASMA,AMA- negative Status post finger amputation secondary to Raynaud's syndrome Leukocytosis currently on steroid therapy Plan: NPO Patient has been started on antimicrobial Therapy Surgery/ and vascular surgeon have been consulted Heparin has been started Monitor labs- continue supportive care. Patient seen in collaboration with Subjective: Course reviewed with nursing staff Patient interviewed and examined All labs, imaging and other results reviewed Pt states she feels better after changing diet to NPO Discussed results of Ct scan. Currently no c/o n.v VSS. Exam PHYSICAL EXAMINATION: GENERAL: Chronically ill appearing young woman, alert & oriented x 3, edema/swelling from chronic steroid use SKIN: No lesions. HEAD: Normocephalic, atraumatic, no tenderness. EYES: Pupils equal reactive to light, no discharge. EARS/NOSE AND THROAT: Ears normal, nose normal. NECK: Supple, no masses, thyroid normal. CHEST: Inspection within normal limits. CARDIOVASCULAR: Heart: Regular rate and rhythm RESPIRATORY: Lungs clear to auscultation. GASTROINTESTINAL AND LIVER: Abdomen: obese, soft, epigastric tenderness, non- distended, no hernias, no masses, normoactive bowel sounds. Rectal: Deferred. EXTREMITIES: No cyanosis, clubbing or edema. Right index finger amputated 1 phalanx Result Diagram: 12/07/18 0111 12/07/18 0111 Results 24hrs Laboratory Tests Test 12/07/18 01:11 12/07/18 07:21 12/07/18 13:45 White Blood Count 14.6 H Red Blood Count 3.87 L Hemoglobin 9.8 L Hematocrit 33.4 L Mean Corpuscular Volume 86.3 Mean Corpuscular Hemoglobin 25.3 L Mean Corpuscular Hemoglobin Concent 29.3 L Red Cell Distribution Width 16.7 H Platelet Count 581 H Mean Platelet Volume 9.5 Immature Granulocytes % 1.700 H Neutrophils % 90.6 H Lymphocytes % 0.0 L Monocytes % 7.2 Eosinophils % 0.4 Basophils % 0.1 Nucleated Red Blood Cells % 13.3 H Immature Granulocytes # 0.250 H Neutrophils # 13.2 H Lymphocytes # 0.0 L Monocytes # 1.1 H Eosinophils # 0.1 Basophils # 0.0 Nucleated Red Blood Cells # 1.9 H Prothrombin Time 13.9 14.7 Prothrombin Time Ratio 1.1 1.1 INR International Normalized Ratio 1.06 1.14 Activated Partial Thromboplast Time 27.5 28.2 Sodium Level 139 Potassium Level 4.0 Chloride Level 103 Carbon Dioxide Level 30 Anion Gap 6 Blood Urea Nitrogen 20 Creatinine 0.59 Est Glomerular Filtrat Rate mL/min > 60 Glucose Level 133 Lactic Acid Level 2.7 *H 1.8 Calcium Level 9.0 Phosphorus Level 2.8 Magnesium Level 2.2 Exam/Review of Systems Exam Vitals Vital Signs Date Temp Pulse Resp B/P (MAP) Pulse Ox O2 O2 Flow FiO2 Time Delivery Rate 12/07/18 98.4 74 18 128/76 95 Room Air 14:50 (93) Intake and Output 12/06/18 12/06/18 12/07/18 1515:00 23:00 07:00 IntakeIntake Total 720 ml 370 ml BalanceBalance 720 ml 370 ml Results Results 24hrs Laboratory Tests Test 12/07/18 01:11 12/07/18 07:21 12/07/18 13:45 White Blood Count 14.6 H Red Blood Count 3.87 L Hemoglobin 9.8 L Hematocrit 33.4 L Mean Corpuscular Volume 86.3 Mean Corpuscular Hemoglobin 25.3 L Mean Corpuscular Hemoglobin Concent 29.3 L Red Cell Distribution Width 16.7 H Platelet Count 581 H Mean Platelet Volume 9.5 Immature Granulocytes % 1.700 H Neutrophils % 90.6 H Lymphocytes % 0.0 L Monocytes % 7.2 Eosinophils % 0.4 Basophils % 0.1 Nucleated Red Blood Cells % 13.3 H Immature Granulocytes # 0.250 H Neutrophils # 13.2 H Lymphocytes # 0.0 L Monocytes # 1.1 H Eosinophils # 0.1 Basophils # 0.0 Nucleated Red Blood Cells # 1.9 H Prothrombin Time 13.9 14.7 Prothrombin Time Ratio 1.1 1.1 INR International Normalized Ratio 1.06 1.14 Activated Partial Thromboplast Time 27.5 28.2 Sodium Level 139 Potassium Level 4.0 Chloride Level 103 Carbon Dioxide Level 30 Anion Gap 6 Blood Urea Nitrogen 20 Creatinine 0.59 Est Glomerular Filtrat Rate mL/min > 60 Glucose Level 133 Lactic Acid Level 2.7 *H 1.8 Calcium Level 9.0 Phosphorus Level 2.8 Magnesium Level 2.2 Medications Medication Current Medications IV Flush (NS 3 ml) 3 ml PER PROTOCOL IV ; Start 11/29/18 at 07:00 Ondansetron HCl (Zofran Inj) 4 mg Q6H PRN IV NAUSEA/VOMITING Last administered on 12/06/18at 21:23; Admin Dose 4 MG; Start 11/29/18 at 07:00 Acetaminophen (Tylenol Tab) 650 mg Q6H PRN PO .PAIN 1-3 OR TEMP; Start 11/29/18 at 07:00 Acetaminophen/ Hydrocodone Bitart ([place] (5/325)) 1 tab Q6H PRN PO .MOD PAIN 4-6 Last administered on 12/02/18 11:08; Admin Dose 1 TAB; Start 11/29/18 at 07:00 Docusate Sodium (Colace) 100 mg Q12H PRN PO .CONSTIPATION; Start 11/29/18 at 07:00 Magnesium Hydroxide (Milk Of Mag) 30 ml DAILY PRN PO .CONSTIPATION; Start 11/29/18 at 07:00 Lorazepam (Ativan) 0.5 mg Q6H PRN IV ANXIETY; Start 11/29/18 at 07:00 Albuterol/ Ipratropium (Duoneb) 3 ml Q4H RESP THERAPY PRN HHN SHORTNESS OF BREATH; Start 11/29/18 at 07:00 Hydralazine HCl (Apresoline) 10 mg Q6H PRN IV for sys bp > 180; Start 11/29/18 at 07:00 Nitroglycerin (Nitroglycerin (Sl Tab) 0.4 Mg) 1 tab Q5M PRN SL ANGINA Last administered on 11/30/18 10:24; Admin Dose 1 TAB; Start 11/29/18 at 07:00 Amlodipine Besylate (Norvasc) 5 mg BID PO Last administered on 12/07/18 09:01; Admin Dose 5 MG; Start 11/30/18 at 09:00 Azathioprine (Imuran) 100 mg DAILY PO Last administered on 12/07/18 08:58; Admin Dose 100 MG; Start 11/30/18 at 09:00 Cyclobenzaprine HCl (Flexeril) 10 mg TID PO Last administered on 12/07/18 14:42; Admin Dose 10 MG; Start 11/30/18 at 09:00 Nadolol (Corgard) 20 mg BID PO Last administered on 12/07/18 09:00; Admin Dose 20 MG; Start 11/30/18 at 09:00 Tramadol HCl (Ultram) 50 mg Q4 PRN PO PAIN Last administered on 12/03/18 03:13; Admin Dose 50 MG; Start 11/30/18 at 00:00 Calcium/Vitamin D (Oyster Shell/ Vit-D (500/200)) 1 tab DAILY PO Last administered on 12/07/18 09:00; Admin Dose 1 TAB; Start 11/30/18 at 09:00 Sucralfate (Carafate Susp) 1 gm QID PO Last administered on 12/07/18 14:42; Admin Dose 1 GM; Start 11/30/18 at 09:00 Metoclopramide HCl (Reglan) 10 mg Q6H PRN IV nausae Last administered on 12/06/18 02:23; Admin Dose 10 MG; Start 11/30/18 at 11:00 Colchicine (Colchicine) 0.6 mg BID PO Last administered on 12/07/18 09:00; Admin Dose 0.6 MG; Start 11/30/18 at 12:30 Hydromorphone HCl (Dilaudid) 1 mg Q4H PRN IV SEVERE PAIN LEVEL 7-10 Last administered on 12/07/18 15:05; Admin Dose 1 MG; Start 12/02/18 at 12:30 Amylase/Lipase/ Protease (Creon (47v-[id number])) 2 cap WITH MEALS PO Last administered on 12/06/18 17:51; Admin Dose 2 CAP; Start 12/02/18 at 18:00 Lactobacillus Acidophilus/ Rhamnosus (Culturelle) 1 cap WITH MEALS PO Last administered on 12/06/18 17:51; Admin Dose 1 CAP; Start 12/05/18 at 18:00 Amoxicillin (Amoxicillin) 500 mg BID PO Last administered on 12/07/18 09:00; Admin Dose 500 MG; Start 12/06/18 at 09:00 Levofloxacin (Levaquin) 750 mg DAILY@06 PO Last administered on 12/07/18 05:35; Admin Dose 750 MG; Start 12/06/18 at 06:00 Pantoprazole (Protonix Tab) 40 mg BID@06,18 PO Last administered on 12/07/18 05:35; Admin Dose 40 MG; Start 12/05/18 at 18:00 Meropenem/Sodium Chloride 50 ml @ 100 mls/hr Q8H IVPB Last administered on 12/07/18 08:56; Admin Dose 100 MLS/HR; Start 12/07/18 at 01:30 Sodium Chloride 1,000 ml @ 80 mls/hr [id number] IV Last administered on 12/07/18at 15:05; Admin Dose 80 MLS/HR; Start 12/07/18 at 01:30 Heparin Sodium (Porcine) (Heparin (1000 Units/ml)) 7,200 unit PER PROTOCOL PRN IV aPTT<47; Start 12/07/18 at 13:00 Heparin Sodium (Porcine) (Heparin (1000 Units/ml)) 3,600 unit PER PROTOCOL PRN IV aPTT<47-57; Start 12/07/18 at 13:00 Heparin Sodium (Porcine) 250 ml @ 16 mls/hr PER PROTOCOL IV Last administered on 12/07/18at 14:52; Admin Dose 16 MLS/HR; Start 12/07/18 at 14:00 Methylprednisolone Sodium Succinate (Solu-Medrol) 10 mg BID IV ; Start 12/07/18 at 21:00 MONIQUE DE LA ROSA Dec 07, 2018 16:05
--- NOTE | 2018-12-07 18:50 | CONS ---
DATE OF ADMISSION: 11/29/2018 DATE OF CONSULTATION: 12/07/2018 REFERRING PHYSICIAN: Donna Finley MD REASON FOR CONSULTATION: Portal and superior mesenteric vein thrombosis. HISTORY OF PRESENT ILLNESS: This is a 33-year-old woman. She has multiple medical problems. She crouch s been in the hospital with abdominal pain and postprandial pain, nausea and general weakness for the past month. She had a CT scan done yesterday that shows portal vein and superior mesenteric vein th rombosis as well as pneumatosis in the intestines. I was asked to evaluate her. She has been starte d on heparin already. I was called earlier that she needs to be anticoagulated. Dr. Westbrook is seei prema glez for general surgery purposes. PAST MEDICAL HISTORY: Significant for lupus, Raynaud's and rheumatoid arthritis. She is chronically on immunosuppressants. She has had a splenectomy for splenomegaly. She has cirrhosis of the liver. She had a right first finger amputated for severe Raynaud's episode. She has depression and anxiet y. MEDICATIONS: Currently consist of: 1. Solu-Medrol. 2. Heparin IV, it is a DVT protocol. 3. Meropenem. 4. Vancomycin. 5. Linezolid. 6. Zosyn. 7. Amoxicillin 8. Levaquin. 9. Protonix. 10. Creon. 11. Dilaudid. 12. Colchicine. 13. Reglan. 14. Norvasc. 15. Imuran. 16. Flexeril. 17. Corgard. 18. Sucralfate. 19. Tramadol. 20. Zofran. 21. Lorazepam. ALLERGIES: 1. VANCOMYCIN. 2. AVOCADO. SOCIAL HISTORY: She is a nonsmoker. She does not drink or use any illicit drugs. 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 FAMILY HISTORY: Noncontributory. REVIEW OF SYSTEMS: Currently, she is awake and alert. She denies any abdominal pain at present. Mikaela sharif said she does have abdominal pain when she eats. She does have chronic diarrhea. No shortness of breath, no chest pain. PHYSICAL EXAMINATION: GENERAL: She is a young female, speaks [place]ian fluently. She is in no acute distress. VITAL SIGNS: She has been afebrile. Her blood pressure is 128/76, heart rate is 74, respiratory rat e is 18. She has 95% sat on room air. NECK: She has 2+ radial, brachial and carotid pulses bilaterally. LUNGS: Clear. HEART: Regular rate and rhythm. ABDOMEN: Softly distended and she is not tender. EXTREMITIES: She has good popliteal, DP and PT pulses bilaterally. DIAGNOSTIC DATA: White count is 14.6, platelet count is 581. Lactic acid is 1.8. Creatinine is 0.5 . Again, I reviewed the CT of the abdomen and pelvis that does show hepatomegaly with diffuse fatty infiltration. The portal and superior mesenteric veins are thrombosed. She has had a splenectomy. There is pneumatosis of the right colon and hepatic flexure. She also has some peripancreatic fluid suggestive of acute pancreatitis. IMPRESSION AND PLAN: Portal and superior mesenteric vein thrombosis in the setting of splenectomy an d cirrhosis, not a surgical issue. The pneumatosis Dr. Westbrook is following her for, this is an acut e mesenteric ischemia, it is a venous occlusion, not arterial. It is not surgical. It needs long-te rm anticoagulation. She may need partial bowel resection, but I will leave that up to Dr. Westbrook. The thrombosis is not uncommonly seen after splenectomy and also with cirrhosis and she will need lif elong anticoagulation once she has recovered from this episode. Dictated By: DANIEL ARMANDO/BERTO Conf#: [id number] DID#: [id number] CC: IFTIKHAR VEE; DONNA FINLEY MD; MODE WESTBROOK MD;*End*
[2018-12-07 19:55] VITALS: BP 131/81; PULSE 88; RESP 16
[2018-12-07 20:15] VITALS: PULSE 56
[2018-12-08] MEDS: MEROPENEM 1 GM/50ML(PMX) 50 ML IVPB SCH ×3 (01:52→17:29)
[2018-12-08 01:53] VITALS: BP 128/75; PULSE 53; RESP 18
[2018-12-08] MEDS: SOD CHLORIDE 0.9% 1,000 ML IV SCH ×3 (02:22→17:29)
[2018-12-08] MEDS: LEVOFLOXACIN 750 MG TABLET PO SCH (05:43)
[2018-12-08] MEDS: PANTOPRAZOLE (EC) 40 MG TAB PO SCH ×2 (05:43→17:29)
[2018-12-08] MEDS: HEPARIN 25000 UNITS/250 ML 250 ML IV SCH ×2 (06:53→12:13)
[2018-12-08 07:45] VITALS: BP 137/88; PULSE 53; RESP 18
[2018-12-08] MEDS: CREON (24K-76K-120K) 1 CAP PO SCH ×3 (08:00→17:30)
[2018-12-08] MEDS: LACTOBACILLUS RHAMNOSUS CAP PO SCH ×3 (08:00→17:30)
[2018-12-08] MEDS: HYDROmorphONE 1 MG/ML SYG IV PRN ×2 (08:06→20:51)
--- NOTE | 2018-12-08 08:10 | CONS ---
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 and does not necessarily mean actual bowel infection/infarction but the fact that there is some free air does complicate things ok to continue with merrem, will d/c ampicillin and levaquin at this time no evidence to suggest she has a lung infection which also could cause PI if anticoagulation does not resolve her abd pain she may need another abd CT to verify no further evidence of abd infection 5) pancreatitis by CT and clinical exam is c/w it too but lipase and amylase do not correlate merrem has good penetration into the pancreas and any infectious process there should be covered with merrem 6) gastric ulcers on treatment Consultation Date/Type/Reason Admit Date/Time Nov 29, 2018 at 06:15 Date of Consultation: Dec 08, 2018 Type of Consult ID Date/Time of Note DATE: 12/08/18 TIME: 07:52 Hx of Present Illness pt has a several month hx of mid epigastric pain she had vomiting of blood in september too and was dx with gastric ulcer post upper endoscopy she continue with her abd pain though despite treatment several weeks ago she started having abd pain radiate to her back and she had fevers She was admitted on 11/29 and thought to have pancreatitis her pain was improving but when she was starting to eat the pain got worse especially with solid foods because of this a repeat abd CT was done which showed PV thrombus with pneumatosis intestinalis and some free air under the diaphragm she is currently NPO again she states that in the past her lupus flairs were associated with abd pain She denies V, cough, SOB, coryza, sore throat She developed some diarrhea two weeks ago when the pain got worse no dysuria, rashes, joint pains Past Medical History SLE, RA, gastric ulcers, HTN, liver cirrhosis, esophageal varies, raynauds Home Meds Active Scripts Cyclobenzaprine Hcl* (Cyclobenzaprine Hcl*) 10 Mg Tablet, 10 MG PO TID, #15 TAB Prov:MICKY CHAN MD 11/26/18 Tramadol HCl (Tramadol HCl) 50 Mg Tablet, 50 MG PO Q4 PRN for PAIN, #20 TAB Prov:MICKY CHAN MD 11/26/18 Ondansetron Hcl* (Zofran*) 8 Mg Tablet, 8 MG PO Q6H PRN for NAUSEA AND OR VOMITING, #20 TAB Prov:JENNY RAWLS MD 11/20/18 Levofloxacin* (Levaquin*) 750 Mg Tablet, 750 MG PO DAILY for 7 Days, TAB Prov:JENNY RAWLS MD 11/20/18 Sucralfate* (Carafate*) 1 Gm/10 Ml Susp, 1 GM PO QID for 30 Days, #1 EA 2 Refills Prov:LIUDMILA DUMONT MD 11/17/18 Metoclopramide Hcl* (Metoclopramide Hcl*) 10 Mg Tablet, 10 MG PO QID for 10 Days, #40 TAB Prov:LIUDMILA DUMONT MD 11/17/18 Acetaminophen* (Tylenol*) 325 Mg Tablet, 650 MG PO Q6H PRN for .PAIN 1-3 OR TEMP for 1 Day, TAB Prov:LIUDMILA DUMONT MD 11/17/18 Nadolol (Corgard) 40 Mg Tablet, 20 MG PO BID for 15 Days, #30 TAB Prov:LIUDMILA DUMONT MD 11/17/18 Pantoprazole* (Pantoprazole*) 40 Mg Tablet.dr, 40 MG PO BID@06,18 for 30 Days, #60 TAB 1 Refill Prov:LIUDMILA DUMONT MD 11/17/18 Reported Medications Amlodipine Besylate* (Amlodipine Besylate*) 10 Mg Tablet, 5 MG PO BID, #30 TAB 11/29/18 Calcium Carbonate/Vitamin D3 (Calcium 500 mg Chewable Tablet) 1 Each Tab.chew, 1 EACH PO DAILY, TAB.CHEW 11/14/18 Prednisone* (Prednisone*) 5 Mg Tab, 5 MG PO DAILY, TAB 11/14/18 Azathioprine* (Imuran*) 50 Mg Tab, 100 MG PO DAILY, TAB 11/14/18 Ergocalciferol (Vitamin D2) (VITAMIN D2) 50,000 Unit Capsule, 90610 UNIT PO QMONDAY 09/22/18 Medications Current Medications IV Flush (NS 3 ml) 3 ml PER PROTOCOL IV ; Start 11/29/18 at 07:00 Ondansetron HCl (Zofran Inj) 4 mg Q6H PRN IV NAUSEA/VOMITING Last administered on 12/06/18at 21:23; Admin Dose 4 MG; Start 11/29/18 at 07:00 Acetaminophen (Tylenol Tab) 650 mg Q6H PRN PO .PAIN 1-3 OR TEMP; Start 11/29/18 at 07:00 Acetaminophen/ Hydrocodone Bitart ([place] (5/325)) 1 tab Q6H PRN PO .MOD PAIN 4- 6 Last administered on 12/02/18 11:08; Admin Dose 1 TAB; Start 11/29/18 at 07:00 Docusate Sodium (Colace) 100 mg Q12H PRN PO .CONSTIPATION; Start 11/29/18 at 07:00 Magnesium Hydroxide (Milk Of Mag) 30 ml DAILY PRN PO .CONSTIPATION; Start 11/29/18 at 07:00 Lorazepam (Ativan) 0.5 mg Q6H PRN IV ANXIETY; Start 11/29/18 at 07:00 Albuterol/ Ipratropium (Duoneb) 3 ml Q4H RESP THERAPY PRN HHN SHORTNESS OF BREATH; Start 11/29/18 at 07:00 Hydralazine HCl (Apresoline) 10 mg Q6H PRN IV for sys bp > 180; Start 11/29/18 at 07:00 Nitroglycerin (Nitroglycerin (Sl Tab) 0.4 Mg) 1 tab Q5M PRN SL ANGINA Last administered on 11/30/18 10:24; Admin Dose 1 TAB; Start 11/29/18 at 07:00 Amlodipine Besylate (Norvasc) 5 mg BID PO Last administered on 12/07/18 20:26; Admin Dose 5 MG; Start 11/30/18 at 09:00 Azathioprine (Imuran) 100 mg DAILY PO Last administered on 12/07/18 08:58; Admin Dose 100 MG; Start 11/30/18 at 09:00 Cyclobenzaprine HCl (Flexeril) 10 mg TID PO Last administered on 12/07/18 20:26; Admin Dose 10 MG; Start 11/30/18 at 09:00 Nadolol (Corgard) 20 mg BID PO Last administered on 12/07/18 09:00; Admin Dose 20 MG; Start 11/30/18 at 09:00 Tramadol HCl (Ultram) 50 mg Q4 PRN PO PAIN Last administered on 12/03/18 03:13; Admin Dose 50 MG; Start 11/30/18 at 00:00 Calcium/Vitamin D (Oyster Shell/ Vit-D (500/200)) 1 tab DAILY PO Last administered on 12/07/18 09:00; Admin Dose 1 TAB; Start 11/30/18 at 09:00 Sucralfate (Carafate Susp) 1 gm QID PO Last administered on 12/07/18 20:24; Admin Dose 1 GM; Start 11/30/18 at 09:00 Metoclopramide HCl (Reglan) 10 mg Q6H PRN IV nausae Last administered on 12/06/18 02:23; Admin Dose 10 MG; Start 11/30/18 at 11:00 Colchicine (Colchicine) 0.6 mg BID PO Last administered on 12/07/18 20:24; Admin Dose 0.6 MG; Start 11/30/18 at 12:30 Hydromorphone HCl (Dilaudid) 1 mg Q4H PRN IV SEVERE PAIN LEVEL 7-10 Last administered on 12/07/18 21:55; Admin Dose 1 MG; Start 12/02/18 at 12:30 Amylase/Lipase/ Protease (Creon ([id number])) 2 cap WITH MEALS PO Last administered on 12/06/18 17:51; Admin Dose 2 CAP; Start 12/02/18 at 18:00 Lactobacillus Acidophilus/ Rhamnosus (Culturelle) 1 cap WITH MEALS PO Last administered on 12/06/18 17:51; Admin Dose 1 CAP; Start 12/05/18 at 18:00 Amoxicillin (Amoxicillin) 500 mg BID PO Last administered on 12/07/18 20:25; Admin Dose 500 MG; Start 12/06/18 at 09:00 Levofloxacin (Levaquin) 750 mg DAILY@06 PO Last administered on 12/08/18 05:43; Admin Dose 750 MG; Start 12/06/18 at 06:00 Pantoprazole (Protonix Tab) 40 mg BID@06,18 PO Last administered on 12/08/18at 05:43; Admin Dose 40 MG; Start 12/05/18 at 18:00 Meropenem/Sodium Chloride 50 ml @ 100 mls/hr Q8H IVPB Last administered on 12/08/18at 01:52; Admin Dose 100 MLS/HR; Start 12/07/18 at 01:30 Sodium Chloride 1,000 ml @ 80 mls/hr [id number] IV Last administered on 12/08/18at 04:59; Admin Dose 80 MLS/HR; Start 12/07/18 at 01:30 Heparin Sodium (Porcine) (Heparin (1000 Units/ml)) 7,200 unit PER PROTOCOL PRN IV aPTT<47; Start 12/07/18 at 13:00 Heparin Sodium (Porcine) (Heparin (1000 Units/ml)) 3,600 unit PER PROTOCOL PRN IV aPTT<47-57; Start 12/07/18 at 13:00 Heparin Sodium (Porcine) 250 ml @ 16 mls/hr PER PROTOCOL IV Last administered on 12/08/18at 06:53; Admin Dose 13 MLS/HR; Start 12/07/18 at 14:00 Methylprednisolone Sodium Succinate (Solu-Medrol) 10 mg BID IV Last administered on 12/07/18at 20:23; Admin Dose 10 MG; Start 12/07/18 at 21:00 Allergies: Coded Allergies: avocado (Verified Allergy, Unknown, bumps inside her mouth, 11/16/18) vancomycin (Verified Allergy, Unknown, 11/14/18) Past Surgical History splenectomy, 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 Past Surgical Hx: other Social History Alcohol Use: none Smoking Status: Never smoker Exam/Review of Systems Exam Vitals Vital Signs Date Temp Pulse Resp B/P (MAP) Pulse Ox O2 O2 Flow FiO2 Time Delivery Rate 12/08/18 98.2 53 18 128/75 94 01:53 (92) 12/07/18 Room Air 14:50 Intake and Output 12/07/18 12/07/18 12/08/18 1515:00 23:00 07:00 IntakeIntake Total 50 ml 1018 ml 1012 ml BalanceBalance 50 ml 1018 ml 1012 ml Constitutional: alert, oriented Eyes: nl sclera ENMT: other (white patches to tongue) Neck: supple Respiratory: clear to auscultation Cardiovascular: regular rate and rhythm Gastrointestinal: soft, tender (tender to mid epigastric area and slightly to LUQ and RUQ, mild pain with shaking of abd) Musculoskeletal: nl extremities to inspection Neurological: other (non focal) Results Result Diagram: 12/08/18 0426 12/08/18 0426 Results 24hrs Laboratory Tests Test 12/07/18 13:45 12/07/18 21:05 12/08/18 04:26 Prothrombin Time 14.7 Prothrombin Time Ratio 1.1 INR International Normalized Ratio 1.14 Activated Partial Thromboplast Time 28.2 171.8 *H 79.8 *H White Blood Count 15.7 H Red Blood Count 3.69 L Hemoglobin 9.4 L Hematocrit 30.8 L Mean Corpuscular Volume 83.5 Mean Corpuscular Hemoglobin 25.5 L Mean Corpuscular Hemoglobin Concent 30.5 L Red Cell Distribution Width 17.0 H Platelet Count 508 H Mean Platelet Volume 10.0 Immature Granulocytes % 0.700 H Neutrophils % Lymphocytes % Monocytes % Eosinophils % Basophils % Nucleated Red Blood Cells % 11.9 H Immature Granulocytes # 0.110 H Neutrophils # Lymphocytes # Monocytes # Eosinophils # Basophils # Nucleated Red Blood Cells # Sodium Level 137 Potassium Level 4.0 Chloride Level 103 Carbon Dioxide Level 29 Anion Gap 5 Blood Urea Nitrogen 14 Creatinine 0.50 Est Glomerular Filtrat Rate mL/min > 60 Glucose Level 104 Calcium Level 8.7 Phosphorus Level 3.7 Magnesium Level 2.1 Total Bilirubin 0.7 Direct Bilirubin 0.00 Indirect Bilirubin 0.7 Aspartate Amino Transf (AST/SGOT) 26 Alanine Aminotransferase (ALT/SGPT) 36 Alkaline Phosphatase 97 Total Protein 6.0 L Albumin 2.8 L Globulin 3.20 Albumin/Globulin Ratio 0.[address] abd/pelv 12/06 IMPRESSION: 1. PNEUMATOSIS INTESTINALIS OF THE RIGHT COLON AND HEPATIC FLEXURE, RAISING CONCERN FOR BOWEL ISCHEMIA. SEVERAL FOCI OF FREE AIR IS NOTED WITHIN THE RIGHT LOWER QUADRANT, WORRISOME FOR MICROPERFORATION OF RIGHT COLON. THERE ARE SEVERAL FOCI OF SUBCUTANEOUS AIR. CORRELATE THERE IS HISTORY OF RECENT IATROGENIC PROCEDURE. 2. 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 THERE IS ALSO THROMBOSIS OF THE SUPERIOR MESENTERIC VEIN. 3. Peripancreatic fluid, worrisome for acute pancreatitis. Recommend correlation with amylase and lipase levels. 4. Thickening of the estevez of the stomach and duodenum, worrisome for focal i nflammation possibly secondary to adjacent pancreatitis. 5. Hepatomegaly. 6. Status post splenectomy. 7. Mild upper abdominal and pelvic ascites. Generalized anasarca. Medications Medication Current Medications IV Flush (NS 3 ml) 3 ml PER PROTOCOL IV ; Start 11/29/18 at 07:00 Ondansetron HCl (Zofran Inj) 4 mg Q6H PRN IV NAUSEA/VOMITING Last administered on 12/06/18at 21:23; Admin Dose 4 MG; Start 11/29/18 at 07:00 Acetaminophen (Tylenol Tab) 650 mg Q6H PRN PO .PAIN 1-3 OR TEMP; Start 11/29/18 at 07:00 Acetaminophen/ Hydrocodone Bitart ([place] (5/325)) 1 tab Q6H PRN PO .MOD PAIN 4- 6 Last administered on 12/02/18at 11:08; Admin Dose 1 TAB; Start 11/29/18 at 07:00 Docusate Sodium (Colace) 100 mg Q12H PRN PO .CONSTIPATION; Start 11/29/18 at 07:00 Magnesium Hydroxide (Milk Of Mag) 30 ml DAILY PRN PO .CONSTIPATION; Start 11/29/18 at 07:00 Lorazepam (Ativan) 0.5 mg Q6H PRN IV ANXIETY; Start 11/29/18 at 07:00 Albuterol/ Ipratropium (Duoneb) 3 ml Q4H RESP THERAPY PRN HHN SHORTNESS OF BREATH; Start 11/29/18 at 07:00 Hydralazine HCl (Apresoline) 10 mg Q6H PRN IV for sys bp > 180; Start 11/29/18 at 07:00 Nitroglycerin (Nitroglycerin (Sl Tab) 0.4 Mg) 1 tab Q5M PRN SL ANGINA Last administered on 11/30/18at 10:24; Admin Dose 1 TAB; Start 11/29/18 at 07:00 Amlodipine Besylate (Norvasc) 5 mg BID PO Last administered on 12/07/18at 20:26; Admin Dose 5 MG; Start 11/30/18 at 09:00 Azathioprine (Imuran) 100 mg DAILY PO Last administered on 12/07/18 08:58; Admin Dose 100 MG; Start 11/30/18 at 09:00 Cyclobenzaprine HCl (Flexeril) 10 mg TID PO Last administered on 12/07/18 20:26; Admin Dose 10 MG; Start 11/30/18 at 09:00 Nadolol (Corgard) 20 mg BID PO Last administered on 12/07/18 09:00; Admin Dose 20 MG; Start 11/30/18 at 09:00 Tramadol HCl (Ultram) 50 mg Q4 PRN PO PAIN Last administered on 12/03/18 03:13; Admin Dose 50 MG; Start 11/30/18 at 00:00 Calcium/Vitamin D (Oyster Shell/ Vit-D (500/200)) 1 tab DAILY PO Last administered on 12/07/18 09:00; Admin Dose 1 TAB; Start 11/30/18 at 09:00 Sucralfate (Carafate Susp) 1 gm QID PO Last administered on 12/07/18 20:24; Admin Dose 1 GM; Start 11/30/18 at 09:00 Metoclopramide HCl (Reglan) 10 mg Q6H PRN IV nausae Last administered on 12/06/18 02:23; Admin Dose 10 MG; Start 11/30/18 at 11:00 Colchicine (Colchicine) 0.6 mg BID PO Last administered on 12/07/18 20:24; Admin Dose 0.6 MG; Start 11/30/18 at 12:30 Hydromorphone HCl (Dilaudid) 1 mg Q4H PRN IV SEVERE PAIN LEVEL 7-10 Last administered on 12/07/18 21:55; Admin Dose 1 MG; Start 12/02/18 at 12:30 Amylase/Lipase/ Protease (Creon ([id number])) 2 cap WITH MEALS PO Last administered on 12/06/18 17:51; Admin Dose 2 CAP; Start 12/02/18 at 18:00 Lactobacillus Acidophilus/ Rhamnosus (Culturelle) 1 cap WITH MEALS PO Last administered on 12/06/18 17:51; Admin Dose 1 CAP; Start 12/05/18 at 18:00 Amoxicillin (Amoxicillin) 500 mg BID PO Last administered on 12/07/18 20:25; Admin Dose 500 MG; Start 12/06/18 at 09:00 Levofloxacin (Levaquin) 750 mg DAILY@06 PO Last administered on 12/08/18 05:43; Admin Dose 750 MG; Start 12/06/18 at 06:00 Pantoprazole (Protonix Tab) 40 mg BID@06,18 PO Last administered on 12/08/18 05:43; Admin Dose 40 MG; Start 12/05/18 at 18:00 Meropenem/Sodium Chloride 50 ml @ 100 mls/hr Q8H IVPB Last administered on 12/08/18 01:52; Admin Dose 100 MLS/HR; Start 12/07/18 at 01:30 Sodium Chloride 1,000 ml @ 80 mls/hr [id number] IV Last administered on 12/08/18 04:59; Admin Dose 80 MLS/HR; Start 12/07/18 at 01:30 Heparin Sodium (Porcine) (Heparin (1000 Units/ml)) 7,200 unit PER PROTOCOL PRN IV aPTT<47; Start 12/07/18 at 13:00 Heparin Sodium (Porcine) (Heparin (1000 Units/ml)) 3,600 unit PER PROTOCOL PRN IV aPTT<47-57; Start 12/07/18 at 13:00 Heparin Sodium (Porcine) 250 ml @ 16 mls/hr PER PROTOCOL IV Last administered on 12/08/18 06:53; Admin Dose 13 MLS/HR; Start 12/07/18 at 14:00 Methylprednisolone Sodium Succinate (Solu-Medrol) 10 mg BID IV Last administered on 12/07/18 20:23; Admin Dose 10 MG; Start 12/07/18 at 21:00 ARAMIS WAKEFIELD MD Dec 08, 2018 08:07
[2018-12-08] MEDS: ONDANSETRON 4 MG INJ IV PRN ×2 (08:25→20:51)
[2018-12-08] MEDS: METHYLPREDNISOLONE 40 MG INJ IV SCH ×2 (08:25→20:36)
[2018-12-08] MEDS: SUCRALFATE (100 MG/ML) 10ML CUP PO SCH ×4 (09:32→20:37)
[2018-12-08] MEDS: CYCLOBENZAPRINE 10 MG TAB PO SCH ×3 (09:33→20:46)
[2018-12-08] MEDS: NADOLOL 40 MG TAB PO SCH ×2 (09:33→20:45)
[2018-12-08] MEDS: AZATHIOPRINE 50 MG TAB PO SCH (09:33)
[2018-12-08] MEDS: COLCHICINE 0.6 MG TAB PO SCH ×2 (09:33→20:39)
[2018-12-08] MEDS: AMLODIPINE 10 MG TAB PO SCH ×2 (09:34→21:00)
[2018-12-08] MEDS: CALCIUM/VITAMIN D (500/200) TAB PO SCH (09:34)
--- NOTE | 2018-12-08 10:29 | PN ---
Date/Time of Note Date/Time of Note DATE: 12/08/18 TIME: 10:26 Assessment/Plan VTE Prophylaxis Risk score (from Nsg)>0 risk: 1 SCD applied (from Ns): No SCD contraindicated: other (scds) Pharmacological prophylaxis: other (scds) Lines/Catheters IV Catheter Type (from [facility]): Peripheral IV Urinary Cath still in place: No Assessment/Plan Hospital Course Assessment/Plan Assessment: Epigastric pain-with radiation to left upper quadrant and left flank/back -CT is concerning for pancreatitis, however lipase and amylase WNL -Repeat abdominal CT on 12/06/2018 showed pneumatosis intestinalis cyst of the right colon and hepatic flexure, raising concerning for bowel ischemia with a several foci of free air in the right lower quadrant worrisome for micrope rforation of the right colon. 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 -Pt consulted by vascular sx -Currently on anti-coagulation Left pleural effusion Diarrhea -Stool Cx- coliform Pericardial effusion, moderate -Echocardiogram - Small to borderline moderate circumferential pericardial effusion without evidence of tamponade. EF 55% Normocytic Anemia Recent History Hematemesis EGD 11/15/2018 Extensive ulceration of the distal esophagus, rule out opportunistic infection, biopsies obtained. Grade II/IV esophageal varices. No stigmata of recent bleeding. No therapeutic intervention required Mild gastritis versus portal gastropathy, Otherwise normal EGD Stomach biopsy negative for H. pylori infection, no evidence of intestinal metaplasia, dysplasia, or malignancy Esophageal ulcer biopsy mucosa showing moderate chronic inflammation no squamous mucosa is present. No goblet cells are identified, no H. pylori is identified, no evidence of dysplasia or malignancy SLE/Rheumatoid arthritis/Raynaud's syndrome -On prednisone. History of Splenectomy Depression HTN Hx of EGD/colonoscopy 09/26/18 Colonoscopy 09/26/2018colitis more significant in the area of the rectum moderate size internal hemorrhoidsbiopsy negative for evidence of colitis EGD grade II/IV esophageal varices, severe gastritisbiopsies negative for H. pylori Liver cirrhosis- with hx of EV -Hepatitis serology negative -ASMA,AMA- negative Thrombocytosis Status post finger amputation secondary to Raynaud's syndrome Leukocytosis Plan: NPO Continue anti-coagulation F/u on surgical recommendations Abx per ID Continue supportive care. Patient seen in collaboration with Subjective: Course reviewed with nursing staff Patient interviewed and examined All labs, imaging and other results reviewed Patient currently resting in bed Feels better with NPO status. WBC trending up. No c/o n/v Exam PHYSICAL EXAMINATION: GENERAL: Chronically ill appearing young woman, alert & oriented x 3, edema/swelling from chronic steroid use SKIN: No lesions. HEAD: Normocephalic, atraumatic, no tenderness. EYES: Pupils equal reactive to light, no discharge. EARS/NOSE AND THROAT: Ears normal, nose normal. NECK: Supple, no masses, thyroid normal. CHEST: Inspection within normal limits. CARDIOVASCULAR: Heart: Regular rate and rhythm RESPIRATORY: Lungs clear to auscultation. GASTROINTESTINAL AND LIVER: Abdomen: obese, soft, epigastric tenderness, non- distended, no hernias, no masses, normoactive bowel sounds. Rectal: Deferred. EXTREMITIES: No cyanosis, clubbing or edema. Right index finger amputated 1 phalanx Result Diagram: 12/08/18 0426 12/08/18 0426 Results 24hrs Laboratory Tests Test 12/07/18 13:45 12/07/18 21:05 12/08/18 04:25 12/08/18 04:26 Prothrombin Time 14.7 Prothrombin Time 1.1 Ratio INR International 1.14 Normalized Ratio Activated 28.2 171.8 *H 79.8 *H Partial Thromboplast Time Procalcitonin 0.04 White Blood Count 15.7 H Red Blood Count 3.69 L Hemoglobin 9.4 L Hematocrit 30.8 L Mean Corpuscular 83.5 Volume Mean Corpuscular 25.5 L Hemoglobin Mean Corpuscular 30.5 L Hemoglobin Concent Red Cell 17.0 H Distribution Width Platelet Count 508 H Mean Platelet Volume 10.0 Immature 0.700 H Granulocytes % Neutrophils % Segmented 85 H Neutrophils % (Manual) Band Neutrophils % 2 (Manual) Lymphocytes % Lymphocytes % 4 L (Manual) Monocytes % Monocytes % (Manual) 5 Eosinophils % Eosinophils % 2 (Manual) Basophils % Myelocytes % 2 H (Manual) Nucleated Red Blood 24 H Cells % Immature 0.110 H Granulocytes # Neutrophils # Neutrophils # 13.4 H (Manual) Band Neutrophils # 0.3 Lymphocytes (Manual) 0.6 L Lymphocytes # Monocytes # Monocytes # (Manual) 0.7 Eosinophils # Basophils # Myelocytes # 0.3 H Nucleated Red Blood Cells # Platelet Estimate NORMAL Giant Platelets 9 H Polychromasia 2+ Hypochromasia 3+ Poikilocytosis 2+ Anisocytosis 2+ Macrocytosis 1+ Spherocytes 1+ Target Cells 1+ Ovalocytes 1+ Sodium Level 137 Potassium Level 4.0 Chloride Level 103 Carbon Dioxide Level 29 Anion Gap 5 Blood Urea Nitrogen 14 Creatinine 0.50 Est Glomerular > 60 Filtrat Rate mL/min Glucose Level 104 Calcium Level 8.7 Phosphorus Level 3.7 Magnesium Level 2.1 Total Bilirubin 0.7 Direct Bilirubin 0.00 Indirect Bilirubin 0.7 Aspartate Amino 26 Transf (AST/SGOT) Alanine 36 Aminotransferase (AL T/SGPT) Alkaline Phosphatase 97 Total Protein 6.0 L Albumin 2.8 L Globulin 3.20 Albumin/Globulin 0.87 Ratio Exam/Review of Systems Exam Vitals Vital Signs Date Temp Pulse Resp B/P (MAP) Pulse Ox O2 O2 Flow FiO2 Time Delivery Rate 12/08/18 98.0 53 18 137/88 97 Room Air 07:45 (104) Intake and Output 12/07/18 12/07/18 12/08/18 1414:59 22:59 06:59 IntakeIntake Total 50 ml 1018 ml 1012 ml BalanceBalance 50 ml 1018 ml 1012 ml Results Results 24hrs Laboratory Tests Test 12/07/18 13:45 12/07/18 21:05 12/08/18 04:25 12/08/18 04:26 Prothrombin Time 14.7 Prothrombin Time 1.1 Ratio INR International 1.14 Normalized Ratio Activated 28.2 171.8 *H 79.8 *H Partial Thromboplast Time Procalcitonin 0.04 White Blood Count 15.7 H Red Blood Count 3.69 L Hemoglobin 9.4 L Hematocrit 30.8 L Mean Corpuscular 83.5 Volume Mean Corpuscular 25.5 L Hemoglobin Mean Corpuscular 30.5 L Hemoglobin Concent Red Cell 17.0 H Distribution Width Platelet Count 508 H Mean Platelet Volume 10.0 Immature 0.700 H Granulocytes % Neutrophils % Segmented 85 H Neutrophils % (Manual) Band Neutrophils % 2 (Manual) Lymphocytes % Lymphocytes % 4 L (Manual) Monocytes % Monocytes % (Manual) 5 Eosinophils % Eosinophils % 2 (Manual) Basophils % Myelocytes % 2 H (Manual) Nucleated Red Blood 24 H Cells % Immature 0.110 H Granulocytes # Neutrophils # Neutrophils # 13.4 H (Manual) Band Neutrophils # 0.3 Lymphocytes (Manual) 0.6 L Lymphocytes # Monocytes # Monocytes # (Manual) 0.7 Eosinophils # Basophils # Myelocytes # 0.3 H Nucleated Red Blood Cells # Platelet Estimate NORMAL Giant Platelets 9 H Polychromasia 2+ Hypochromasia 3+ Poikilocytosis 2+ Anisocytosis 2+ Macrocytosis 1+ Spherocytes 1+ Target Cells 1+ Ovalocytes 1+ Sodium Level 137 Potassium Level 4.0 Chloride Level 103 Carbon Dioxide Level 29 Anion Gap 5 Blood Urea Nitrogen 14 Creatinine 0.50 Est Glomerular > 60 Filtrat Rate mL/min Glucose Level 104 Calcium Level 8.7 Phosphorus Level 3.7 Magnesium Level 2.1 Total Bilirubin 0.7 Direct Bilirubin 0.00 Indirect Bilirubin 0.7 Aspartate Amino 26 Transf (AST/SGOT) Alanine 36 Aminotransferase (AL T/SGPT) Alkaline Phosphatase 97 Total Protein 6.0 L Albumin 2.8 L Globulin 3.20 Albumin/Globulin 0.87 Ratio Medications Medication Current Medications IV Flush (NS 3 ml) 3 ml PER PROTOCOL IV ; Start 11/29/18 at 07:00 Ondansetron HCl (Zofran Inj) 4 mg Q6H PRN IV NAUSEA/VOMITING Last administered on 12/08/18at 08:25; Admin Dose 4 MG; Start 11/29/18 at 07:00 Acetaminophen (Tylenol Tab) 650 mg Q6H PRN PO .PAIN 1-3 OR TEMP; Start 11/29/18 at 07:00 Acetaminophen/ Hydrocodone Bitart ([place] (5/325)) 1 tab Q6H PRN PO .MOD PAIN 4- 6 Last administered on 12/02/18at 11:08; Admin Dose 1 TAB; Start 11/29/18 at 07:00 Docusate Sodium (Colace) 100 mg Q12H PRN PO .CONSTIPATION; Start 11/29/18 at 07:00 Magnesium Hydroxide (Milk Of Mag) 30 ml DAILY PRN PO .CONSTIPATION; Start 11/29/18 at 07:00 Lorazepam (Ativan) 0.5 mg Q6H PRN IV ANXIETY; Start 11/29/18 at 07:00 Albuterol/ Ipratropium (Duoneb) 3 ml Q4H RESP THERAPY PRN HHN SHORTNESS OF BREATH; Start 11/29/18 at 07:00 Hydralazine HCl (Apresoline) 10 mg Q6H PRN IV for sys bp > 180; Start 11/29/18 at 07:00 Nitroglycerin (Nitroglycerin (Sl Tab) 0.4 Mg) 1 tab Q5M PRN SL ANGINA Last administered on 11/30/18 10:24; Admin Dose 1 TAB; Start 11/29/18 at 07:00 Amlodipine Besylate (Norvasc) 5 mg BID PO Last administered on 12/08/18 09:34; Admin Dose 5 MG; Start 11/30/18 at 09:00 Azathioprine (Imuran) 100 mg DAILY PO Last administered on 12/08/18 09:33; Admin Dose 100 MG; Start 11/30/18 at 09:00 Cyclobenzaprine HCl (Flexeril) 10 mg TID PO Last administered on 12/08/18 09:33; Admin Dose 10 MG; Start 11/30/18 at 09:00 Nadolol (Corgard) 20 mg BID PO Last administered on 12/08/18 09:33; Admin Dose 20 MG; Start 11/30/18 at 09:00 Tramadol HCl (Ultram) 50 mg Q4 PRN PO PAIN Last administered on 12/03/18 03:13; Admin Dose 50 MG; Start 11/30/18 at 00:00 Calcium/Vitamin D (Oyster Shell/ Vit-D (500/200)) 1 tab DAILY PO Last administered on 12/08/18 09:34; Admin Dose 1 TAB; Start 11/30/18 at 09:00 Sucralfate (Carafate Susp) 1 gm QID PO Last administered on 12/08/18 09:32; Admin Dose 1 GM; Start 11/30/18 at 09:00 Metoclopramide HCl (Reglan) 10 mg Q6H PRN IV nausae Last administered on 12/06/18 02:23; Admin Dose 10 MG; Start 11/30/18 at 11:00 Colchicine (Colchicine) 0.6 mg BID PO Last administered on 12/08/18 09:33; Admin Dose 0.6 MG; Start 11/30/18 at 12:30 Hydromorphone HCl (Dilaudid) 1 mg Q4H PRN IV SEVERE PAIN LEVEL 7-10 Last administered on 12/08/18 08:06; Admin Dose 1 MG; Start 12/02/18 at 12:30 Amylase/Lipase/ Protease (Creon ([id number])) 2 cap WITH MEALS PO Last administered on 12/06/18 17:51; Admin Dose 2 CAP; Start 12/02/18 at 18:00 Lactobacillus Acidophilus/ Rhamnosus (Culturelle) 1 cap WITH MEALS PO Last administered on 12/06/18 17:51; Admin Dose 1 CAP; Start 12/05/18 at 18:00 Pantoprazole (Protonix Tab) 40 mg BID@06,18 PO Last administered on 12/08/18 05:43; Admin Dose 40 MG; Start 12/05/18 at 18:00 Meropenem/Sodium Chloride 50 ml @ 100 mls/hr Q8H IVPB Last administered on 12/08/18 09:34; Admin Dose 100 MLS/HR; Start 12/07/18 at 01:30 Sodium Chloride 1,000 ml @ 80 mls/hr [id number] IV Last administered on 12/08/18 04:59; Admin Dose 80 MLS/HR; Start 12/07/18 at 01:30 Heparin Sodium (Porcine) (Heparin (1000 Units/ml)) 7,200 unit PER PROTOCOL PRN IV aPTT<47; Start 12/07/18 at 13:00 Heparin Sodium (Porcine) (Heparin (1000 Units/ml)) 3,600 unit PER PROTOCOL PRN IV aPTT<47-57; Start 12/07/18 at 13:00 Heparin Sodium (Porcine) 250 ml @ 16 mls/hr PER PROTOCOL IV Last administered on 12/08/18 06:53; Admin Dose 13 MLS/HR; Start 12/07/18 at 14:00 Methylprednisolone Sodium Succinate (Solu-Medrol) 10 mg BID IV Last admi nistered on 12/08/18 08:25; Admin Dose 10 MG; Start 12/07/18 at 21:00 MONIQUE DE LA ROSA Dec 08, 2018 10:28
--- NOTE | 2018-12-08 12:28 | PN ---
Date/Time of Note Date/Time of Note DATE: 12/08/18 TIME: 12:26 Assessment/Plan VTE Prophylaxis Risk score (from Ns)>0 risk: 1 SCD applied (from Ns): No SCD contraindicated: other Pharmacological prophylaxis: heparin Lines/Catheters IV Catheter Type (from [facility]): Peripheral IV Urinary Cath still in place: No Assessment/Plan Hospital Course SUBJECTIVE: Continues to complain of abdominal pain, although better. Continues to complain of diarrhea. Denies any dyspnea. OBJECTIVE: Physical Exam General: Obese 33 year-old female lying in bed in no apparent distress. HEENT: Normocephalic, atraumatic. Eyes: Anicteric sclerae, conjunctivae clear. ENT: Nasal septum midline, oral mucosa moist. Neck supple, no JVD noticed. Respiratory: Bilaterally diminished breath sounds. No use of accessory muscles of respiration. No adventitious breath sounds. Cardiovascular: S1, S2 heard. No murmurs or gallops. Abdomen: Soft and nondistended. Diffuse tenderness. Bowel sounds positive in all 4 quadrants. Genitourinary: Deferred. Extremities: No cyanosis, no clubbing, no edema. Peripheral pulses palpable. Neurologic: Cranial nerves II through XII grossly intact. The patient is awake, alert, and oriented. Skin: Normal skin turgor. No skin rashes. Labs & Vitals per chart ASSESSMENT & PLAN 33-year-old female with comorbidities including lupus, gastritis, hypertension, chronic liver cirrhosis with history of esophageal varices, Raynaud's syndrome with history of right mid finger finger amputation, and obesity who came to the emergency room with chief complaint of epigastric abdominal pain with evidence of underlying pancreatitis, who was admitted to inpatient setting for further treatment and evaluation. 1. Abdominal pain. CT of the abdomen and pelvis on showing acute pancreatitis. Repeat abdominal CT on 12/06/2018 showed pneumatosis intestinalis cyst of the right colon and hepatic flexure, raising concerning for bowel ischemia with several foci of free air in the right lower quadrant worrisome for microperforation of the right colon. General surgery following. The patient was started on antimicrobial therapy including coverage for anaerobes. ID following. 2. 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 Vascular surgery consult has been obtained. Vascular surgery recommended anticoagulation. Started heparin gtt on 12/07/2018. 3. Acute pancreatitis. Continue Creon. Continue gastroenterology recommendations. 4. Lupus flare. Continue rheumatology recommendations. Continue steroids. 5. History of extrinsic gastric ulcers. Continue PPI and Carafate. 6. Chronic liver cirrhosis with history of esophageal varices. Being followed by gastroenterology. Continue nonselective beta-blockers. 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 Continue colchicine and steroids. 8. History of Raynaud's syndrome. Status post right mid finger amputation. Continue Raynaud's precautions. 9. Diarrhea. Continue probiotics. Stool cultures showing coliform bacteria. 10. Obesity. BMI more than 34 kg/m. Advised weight reduction. 11. Hypertension. Continue antihypertensives. 12. Parapneumonic effusion. On antimicrobials. Pulmonology following. 13. Fluids, electrolytes, and nutrition. NPO except for medications. IVFs. 14. DVT prophylaxis. Heparin gtt. 15. Plan. Continue pain control. Continue antimicrobials. Continue anticoagulation. Await clinical improvement. The patient was seen in collaboration with Dr. Finley. Result Diagram: 12/08/18 0426 12/08/18 0426 Results 24hrs Laboratory Tests Test 12/07/18 13:45 12/07/18 21:05 12/08/18 04:25 12/08/18 04:26 Prothrombin Time 14.7 Prothrombin Time 1.1 Ratio INR International 1.14 Normalized Ratio Activated 28.2 171.8 *H 79.8 *H Partial Thromboplast Time Procalcitonin 0.04 White Blood Count 15.7 H Red Blood Count 3.69 L Hemoglobin 9.4 L Hematocrit 30.8 L Mean Corpuscular 83.5 Volume Mean Corpuscular 25.5 L Hemoglobin Mean Corpuscular 30.5 L Hemoglobin Concent Red Cell 17.0 H Distribution Width Platelet Count 508 H Mean Platelet Volume 10.0 Immature 0.700 H Granulocytes % Neutrophils % Segmented 85 H Neutrophils % (Manual) Band Neutrophils % 2 (Manual) Lymphocytes % Lymphocytes % 4 L (Manual) Monocytes % Monocytes % (Manual) 5 Eosinophils % Eosinophils % 2 (Manual) Basophils % Myelocytes % 2 H (Manual) Nucleated Red Blood 24 H Cells % Immature 0.110 H Granulocytes # Neutrophils # Neutrophils # 13.4 H (Manual) Band Neutrophils # 0.3 Lymphocytes (Manual) 0.6 L Lymphocytes # Monocytes # Monocytes # (Manual) 0.7 Eosinophils # Basophils # Myelocytes # 0.3 H Nucleated Red Blood Cells # Platelet Estimate NORMAL Giant Platelets 9 H Polychromasia 2+ Hypochromasia 3+ Poikilocytosis 2+ Anisocytosis 2+ Macrocytosis 1+ Spherocytes 1+ Target Cells 1+ Ovalocytes 1+ Sodium Level 137 Potassium Level 4.0 Chloride Level 103 Carbon Dioxide Level 29 Anion Gap 5 Blood Urea Nitrogen 14 Creatinine 0.50 Est Glomerular > 60 Filtrat Rate mL/min Glucose Level 104 Calcium Level 8.7 Phosphorus Level 3.7 Magnesium Level 2.1 Total Bilirubin 0.7 Direct Bilirubin 0.00 Indirect Bilirubin 0.7 Aspartate Amino 26 Transf (AST/SGOT) Alanine 36 Aminotransferase (AL T/SGPT) Alkaline Phosphatase 97 Total Protein 6.0 L Albumin 2.8 L Globulin 3.20 Albumin/Globulin 0.87 Ratio Test 12/08/18 10:42 Activated 103.8 *H Partial Thromboplast Time Exam/Review of Systems Exam Vitals Vital Signs Date Temp Pulse Resp B/P (MAP) Pulse Ox O2 O2 Flow FiO2 Time Delivery Rate 12/08/18 98.0 53 18 137/88 97 Room Air 07:45 (104) Intake and Output 12/07/18 12/07/18 12/08/18 1515:00 23:00 07:00 IntakeIntake Total 50 ml 1018 ml 1012 ml BalanceBalance 50 ml 1018 ml 1012 ml Results Results 24hrs Laboratory Tests Test 12/07/18 13:45 12/07/18 21:05 12/08/18 04:25 12/08/18 04:26 Prothrombin Time 14.7 Prothrombin Time 1.1 Ratio INR International 1.14 Normalized Ratio Activated 28.2 171.8 *H 79.8 *H Partial Thromboplast Time Procalcitonin 0.04 White Blood Count 15.7 H Red Blood Count 3.69 L Hemoglobin 9.4 L Hematocrit 30.8 L Mean Corpuscular 83.5 Volume Mean Corpuscular 25.5 L Hemoglobin Mean Corpuscular 30.5 L Hemoglobin Concent Red Cell 17.0 H Distribution Width Platelet Count 508 H Mean Platelet Volume 10.0 Immature 0.700 H Granulocytes % Neutrophils % Segmented 85 H Neutrophils % (Manual) Band Neutrophils % 2 (Manual) Lymphocytes % Lymphocytes % 4 L (Manual) Monocytes % Monocytes % (Manual) 5 Eosinophils % Eosinophils % 2 (Manual) Basophils % Myelocytes % 2 H (Manual) Nucleated Red Blood 24 H Cells % Immature 0.110 H Granulocytes # Neutrophils # Neutrophils # 13.4 H (Manual) Band Neutrophils # 0.3 Lymphocytes (Manual) 0.6 L Lymphocytes # Monocytes # Monocytes # (Manual) 0.7 Eosinophils # Basophils # Myelocytes # 0.3 H Nucleated Red Blood Cells # Platelet Estimate NORMAL Giant Platelets 9 H Polychromasia 2+ Hypochromasia 3+ Poikilocytosis 2+ Anisocytosis 2+ Macrocytosis 1+ Spherocytes 1+ Target Cells 1+ Ovalocytes 1+ Sodium Level 137 Potassium Level 4.0 Chloride Level 103 Carbon Dioxide Level 29 Anion Gap 5 Blood Urea Nitrogen 14 Creatinine 0.50 Est Glomerular > 60 Filtrat Rate mL/min Glucose Level 104 Calcium Level 8.7 Phosphorus Level 3.7 Magnesium Level 2.1 Total Bilirubin 0.7 Direct Bilirubin 0.00 Indirect Bilirubin 0.7 Aspartate Amino 26 Transf (AST/SGOT) Alanine 36 Aminotransferase (AL T/SGPT) Alkaline Phosphatase 97 Total Protein 6.0 L Albumin 2.8 L Globulin 3.20 Albumin/Globulin 0.87 Ratio Test 12/08/18 10:42 Activated 103.8 *H Partial Thromboplast Time Medications Medication Current Medications IV Flush (NS 3 ml) 3 ml PER PROTOCOL IV ; Start 11/29/18 at 07:00 Ondansetron HCl (Zofran Inj) 4 mg Q6H PRN IV NAUSEA/VOMITING Last administered on 12/08/18at 08:25; Admin Dose 4 MG; Start 11/29/18 at 07:00 Acetaminophen (Tylenol Tab) 650 mg Q6H PRN PO .PAIN 1-3 OR TEMP; Start 11/29/18 at 07:00 Acetaminophen/ Hydrocodone Bitart ([place] (5/325)) 1 tab Q6H PRN PO .MOD PAIN 4- 6 Last administered on 12/02/18at 11:08; Admin Dose 1 TAB; Start 11/29/18 at 07:00 Docusate Sodium (Colace) 100 mg Q12H PRN PO .CONSTIPATION; Start 11/29/18 at 07:00 Magnesium Hydroxide (Milk Of Mag) 30 ml DAILY PRN PO .CONSTIPATION; Start 11/29/18 at 07:00 Lorazepam (Ativan) 0.5 mg Q6H PRN IV ANXIETY; Start 11/29/18 at 07:00 Albuterol/ Ipratropium (Duoneb) 3 ml Q4H RESP THERAPY PRN HHN SHORTNESS OF BREATH; Start 11/29/18 at 07:00 Hydralazine HCl (Apresoline) 10 mg Q6H PRN IV for sys bp > 180; Start 11/29/18 at 07:00 Nitroglycerin (Nitroglycerin (Sl Tab) 0.4 Mg) 1 tab Q5M PRN SL ANGINA Last administered on 11/30/18 10:24; Admin Dose 1 TAB; Start 11/29/18 at 07:00 Amlodipine Besylate (Norvasc) 5 mg BID PO Last administered on 12/08/18 09:34; Admin Dose 5 MG; Start 11/30/18 at 09:00 Azathioprine (Imuran) 100 mg DAILY PO Last administered on 12/08/18 09:33; Admin Dose 100 MG; Start 11/30/18 at 09:00 Cyclobenzaprine HCl (Flexeril) 10 mg TID PO Last administered on 12/08/18 09:33; Admin Dose 10 MG; Start 11/30/18 at 09:00 Nadolol (Corgard) 20 mg BID PO Last administered on 12/08/18 09:33; Admin Dose 20 MG; Start 11/30/18 at 09:00 Tramadol HCl (Ultram) 50 mg Q4 PRN PO PAIN Last administered on 12/03/18 03:13; Admin Dose 50 MG; Start 11/30/18 at 00:00 Calcium/Vitamin D (Oyster Shell/ Vit-D (500/200)) 1 tab DAILY PO Last administe red on 12/08/18 09:34; Admin Dose 1 TAB; Start 11/30/18 at 09:00 Sucralfate (Carafate Susp) 1 gm QID PO Last administered on 12/08/18 09:32; Admin Dose 1 GM; Start 11/30/18 at 09:00 Metoclopramide HCl (Reglan) 10 mg Q6H PRN IV nausae Last administered on 12/06/18 02:23; Admin Dose 10 MG; Start 11/30/18 at 11:00 Colchicine (Colchicine) 0.6 mg BID PO Last administered on 12/08/18 09:33; Admin Dose 0.6 MG; Start 11/30/18 at 12:30 Hydromorphone HCl (Dilaudid) 1 mg Q4H PRN IV SEVERE PAIN LEVEL 7-10 Last administered on 12/08/18 08:06; Admin Dose 1 MG; Start 12/02/18 at 12:30 Amylase/Lipase/ Protease (Creon ([id number])) 2 cap WITH MEALS PO Last administered on 12/06/18 17:51; Admin Dose 2 CAP; Start 12/02/18 at 18:00 Lactobacillus Acidophilus/ Rhamnosus (Culturelle) 1 cap WITH MEALS PO Last administered on 12/06/18 17:51; Admin Dose 1 CAP; Start 12/05/18 at 18:00 Pantoprazole (Protonix Tab) 40 mg BID@06,18 PO Last administered on 12/08/18 05:43; Admin Dose 40 MG; Start 12/05/18 at 18:00 Meropenem/Sodium Chloride 50 ml @ 100 mls/hr Q8H IVPB Last administered on 12/08/18 09:34; Admin Dose 100 MLS/HR; Start 12/07/18 at 01:30 Sodium Chloride 1,000 ml @ 80 mls/hr [id number] IV Last administered on 12/08/18 04:59; Admin Dose 80 MLS/HR; Start 12/07/18 at 01:30 Heparin Sodium (Porcine) (Heparin (1000 Units/ml)) 7,200 unit PER PROTOCOL PRN IV aPTT<47; Start 12/07/18 at 13:00 Heparin Sodium (Porcine) (Heparin (1000 Units/ml)) 3,600 unit PER PROTOCOL PRN IV aPTT<47-57; Start 12/07/18 at 13:00 Heparin Sodium (Porcine) 250 ml @ 16 mls/hr PER PROTOCOL IV Last administered on 12/08/18 12:13; Admin Dose 12 MLS/HR; Start 12/07/18 at 14:00 Methylprednisolone Sodium Succinate (Solu-Medrol) 10 mg BID IV Last administered on 12/08/18 08:25; Admin Dose 10 MG; Start 12/07/18 at 21:00 MERCY GALLEGOS NP Dec 08, 2018 12:28
--- NOTE | 2018-12-08 13:35 | CONS ---
Consult Date/Type/Reason Admit Date/Time Nov 29, 2018 at 06:15 Initial Consult Date 12/01/18 Type of Consultation: Rheumatology Date/Time of Note DATE: 12/08/18 TIME: 13:31 Subjective Decreased pain since has been NPO Objective Vitals Vital Signs Date Temp Pulse Resp B/P (MAP) Pulse Ox O2 O2 Flow FiO2 Time Delivery Rate 12/08/18 98.0 53 18 137/88 97 Room Air 07:45 (104) Intake and Output 12/07/18 12/07/18 12/08/18 1515:00 23:00 07:00 IntakeIntake Total 50 ml 1018 ml 1012 ml BalanceBalance 50 ml 1018 ml 1012 ml Exam GENERAL: Alert and oriented in no acute distress, SKIN: No rashes or new lesions. HEENT: No acute oral or ocular lesions. NECK: Supple. No lymphadenopathy. CARDIOVASCULAR: Regular rate and rhythm. LUNGS: Clear to auscultation bilaterally. No wheezing or rhonchi. ABDOMEN: Soft, mild epigastric tenderness. No rebound tenderness. Bowel justyn nds are present. EXTREMITIES: No Edema. Mild cyanosis fingers. MUSCULOSKELETAL: No synovitis NEUROL: Grossly intact Results/Medications Result Diagram: 12/08/18 0426 12/08/18 0426 Results 24 hrs Laboratory Tests Test 12/07/18 13:45 12/07/18 21:05 12/08/18 04:25 12/08/18 04:26 Prothrombin Time 14.7 Prothrombin Time 1.1 Ratio INR International 1.14 Normalized Ratio Activated 28.2 171.8 *H 79.8 *H Partial Thromboplast Time Procalcitonin 0.04 White Blood Count 15.7 H Red Blood Count 3.69 L Hemoglobin 9.4 L Hematocrit 30.8 L Mean Corpuscular 83.5 Volume Mean Corpuscular 25.5 L Hemoglobin Mean Corpuscular 30.5 L Hemoglobin Concent Red Cell 17.0 H Distribution Width Platelet Count 508 H Mean Platelet Volume 10.0 Immature 0.700 H Granulocytes % Neutrophils % Segmented 85 H Neutrophils % (Manual) Band Neutrophils % 2 (Manual) Lymphocytes % Lymphocytes % 4 L (Manual) Monocytes % Monocytes % (Manual) 5 Eosinophils % Eosinophils % 2 (Manual) Basophils % Myelocytes % 2 H (Manual) Nucleated Red Blood 24 H Cells % Immature 0.110 H Granulocytes # Neutrophils # Neutrophils # 13.4 H (Manual) Band Neutrophils # 0.3 Lymphocytes (Manual) 0.6 L Lymphocytes # Monocytes # Monocytes # (Manual) 0.7 Eosinophils # Basophils # Myelocytes # 0.3 H Nucleated Red Blood Cells # Platelet Estimate NORMAL Giant Platelets 9 H Polychromasia 2+ Hypochromasia 3+ Poikilocytosis 2+ Anisocytosis 2+ Macrocytosis 1+ Spherocytes 1+ Target Cells 1+ Ovalocytes 1+ Sodium Level 137 Potassium Level 4.0 Chloride Level 103 Carbon Dioxide Level 29 Anion Gap 5 Blood Urea Nitrogen 14 Creatinine 0.50 Est Glomerular > 60 Filtrat Rate mL/min Glucose Level 104 Calcium Level 8.7 Phosphorus Level 3.7 Magnesium Level 2.1 Total Bilirubin 0.7 Direct Bilirubin 0.00 Indirect Bilirubin 0.7 Aspartate Amino 26 Transf (AST/SGOT) Alanine 36 Aminotransferase (AL T/SGPT) Alkaline Phosphatase 97 Total Protein 6.0 L Albumin 2.8 L Globulin 3.20 Albumin/Globulin 0.87 Ratio Test 12/08/18 10:42 Activated 103.8 *H Partial Thromboplast Time Home Meds Active Scripts Cyclobenzaprine Hcl* (Cyclobenzaprine Hcl*) 10 Mg Tablet, 10 MG PO TID, #15 TAB Prov:MIKCY CHAN MD 11/26/18 Tramadol HCl (Tramadol HCl) 50 Mg Tablet, 50 MG PO Q4 PRN for PAIN, #20 TAB Prov:MICKY CHAN MD 11/26/18 Ondansetron Hcl* (Zofran*) 8 Mg Tablet, 8 MG PO Q6H PRN for NAUSEA AND OR VOMITING, #20 TAB Prov:JENNY RAWLS MD 11/20/18 Levofloxacin* (Levaquin*) 750 Mg Tablet, 750 MG PO DAILY for 7 Days, TAB Prov:JENNY RAWLS MD 11/20/18 Sucralfate* (Carafate*) 1 Gm/10 Ml Susp, 1 GM PO QID for 30 Days, #1 EA 2 Refills Prov:LIUDMILA DUMONT MD 11/17/18 Metoclopramide Hcl* (Metoclopramide Hcl*) 10 Mg Tablet, 10 MG PO QID for 10 Days, #40 TAB Prov:LIUDMILA DUMONT MD 11/17/18 Acetaminophen* (Tylenol*) 325 Mg Tablet, 650 MG PO Q6H PRN for .PAIN 1-3 OR TEMP for 1 Day, TAB Prov:LIUDMILA DUMONT MD 11/17/18 Nadolol (Corgard) 40 Mg Tablet, 20 MG PO BID for 15 Days, #30 TAB Prov:LIUDMILA DUMONT MD 11/17/18 Pantoprazole* (Pantoprazole*) 40 Mg Tablet.dr, 40 MG PO BID@06,18 for 30 Days, #60 TAB 1 Refill Prov:LIUDMILA DUMONT MD 11/17/18 Reported Medications Amlodipine Besylate* (Amlodipine Besylate*) 10 Mg Tablet, 5 MG PO BID, #30 TAB 11/29/18 Calcium Carbonate/Vitamin D3 (Calcium 500 mg Chewable Tablet) 1 Each Tab.chew, 1 EACH PO DAILY, TAB.CHEW 11/14/18 Prednisone* (Prednisone*) 5 Mg Tab, 5 MG PO DAILY, TAB 11/14/18 Azathioprine* (Imuran*) 50 Mg Tab, 100 MG PO DAILY, TAB 11/14/18 Ergocalciferol (Vitamin D2) (VITAMIN D2) 50,000 Unit Capsule, 56416 UNIT PO QMONDAY 09/22/18 Medications Current Medications IV Flush (NS 3 ml) 3 ml PER PROTOCOL IV ; Start 11/29/18 at 07:00 Ondansetron HCl (Zofran Inj) 4 mg Q6H PRN IV NAUSEA/VOMITING Last administered on 12/08/18at 08:25; Admin Dose 4 MG; Start 11/29/18 at 07:00 Acetaminophen (Tylenol Tab) 650 mg Q6H PRN PO .PAIN 1-3 OR TEMP; Start 11/29/18 at 07:00 Acetaminophen/ Hydrocodone Bitart ([place] (5/325)) 1 tab Q6H PRN PO .MOD PAIN 4- 6 Last administered on 12/02/18at 11:08; Admin Dose 1 TAB; Start 11/29/18 at 07:00 Docusate Sodium (Colace) 100 mg Q12H PRN PO .CONSTIPATION; Start 11/29/18 at 07:00 Magnesium Hydroxide (Milk Of Mag) 30 ml DAILY PRN PO .CONSTIPATION; Start 11/29/18 at 07:00 Lorazepam (Ativan) 0.5 mg Q6H PRN IV ANXIETY; Start 11/29/18 at 07:00 Albuterol/ Ipratropium (Duoneb) 3 ml Q4H RESP THERAPY PRN HHN SHORTNESS OF BREATH; Start 11/29/18 at 07:00 Hydralazine HCl (Apresoline) 10 mg Q6H PRN IV for sys bp > 180; Start 11/29/18 at 07:00 Nitroglycerin (Nitroglycerin (Sl Tab) 0.4 Mg) 1 tab Q5M PRN SL ANGINA Last administered on 11/30/18 10:24; Admin Dose 1 TAB; Start 11/29/18 at 07:00 Amlodipine Besylate (Norvasc) 5 mg BID PO Last administered on 12/08/18 09:34; Admin Dose 5 MG; Start 11/30/18 at 09:00 Azathioprine (Imuran) 100 mg DAILY PO Last administered on 12/08/18 09:33; Admin Dose 100 MG; Start 11/30/18 at 09:00 Cyclobenzaprine HCl (Flexeril) 10 mg TID PO Last administered on 12/08/18 09:33; Admin Dose 10 MG; Start 11/30/18 at 09:00 Nadolol (Corgard) 20 mg BID PO Last administered on 12/08/18 09:33; Admin Dose 20 MG; Start 11/30/18 at 09:00 Tramadol HCl (Ultram) 50 mg Q4 PRN PO PAIN Last administered on 12/03/18 03:13; Admin Dose 50 MG; Start 11/30/18 at 00:00 Calcium/Vitamin D (Oyster Shell/ Vit-D (500/200)) 1 tab DAILY PO Last administered on 12/08/18 09:34; Admin Dose 1 TAB; Start 11/30/18 at 09:00 Sucralfate (Carafate Susp) 1 gm QID PO Last administered on 12/08/18 09:32; Admin Dose 1 GM; Start 11/30/18 at 09:00 Metoclopramide HCl (Reglan) 10 mg Q6H PRN IV nausae Last administered on 12/06/18 02:23; Admin Dose 10 MG; Start 11/30/18 at 11:00 Colchicine (Colchicine) 0.6 mg BID PO Last administered on 12/08/18 09:33; Admin Dose 0.6 MG; Start 11/30/18 at 12:30 Hydromorphone HCl (Dilaudid) 1 mg Q4H PRN IV SEVERE PAIN LEVEL 7-10 Last administered on 12/08/18 08:06; Admin Dose 1 MG; Start 12/02/18 at 12:30 Amylase/Lipase/ Protease (Creon (37p-19w-360k)) 2 cap WITH MEALS PO Last administered on 12/06/18 17:51; Admin Dose 2 CAP; Start 12/02/18 at 18:00 Lactobacillus Acidophilus/ Rhamnosus (Culturelle) 1 cap WITH MEALS PO Last administered on 12/06/18 17:51; Admin Dose 1 CAP; Start 12/05/18 at 18:00 Pantoprazole (Protonix Tab) 40 mg BID@06,18 PO Last administered on 12/08/18 05:43; Admin Dose 40 MG; Start 12/05/18 at 18:00 Meropenem/Sodium Chloride 50 ml @ 100 mls/hr Q8H IVPB Last administered on 12/08/18 09:34; Admin Dose 100 MLS/HR; Start 12/07/18 at 01:30 Sodium Chloride 1,000 ml @ 80 mls/hr [id number] IV Last administered on 12/08/18 04:59; Admin Dose 80 MLS/HR; Start 12/07/18 at 01:30 Heparin Sodium (Porcine) (Heparin (1000 Units/ml)) 7,200 unit PER PROTOCOL PRN I V aPTT<47; Start 12/07/18 at 13:00 Heparin Sodium (Porcine) (Heparin (1000 Units/ml)) 3,600 unit PER PROTOCOL PRN IV aPTT<47-57; Start 12/07/18 at 13:00 Heparin Sodium (Porcine) 250 ml @ 16 mls/hr PER PROTOCOL IV Last administered on 12/08/18 12:13; Admin Dose 12 MLS/HR; Start 12/07/18 at 14:00 Methylprednisolone Sodium Succinate (Solu-Medrol) 10 mg BID IV Last administered on 12/08/18 08:25; Admin Dose 10 MG; Start 6/12/19 at 21:00 Assessment/Plan Hospital Course (Demo Recall) Assessment/ Plan: 1. Probable pneumonia Improving. 2.. Lupus flare possibly. Agree with decreasing steroids as clinically improving. Decrease Solumedrol to 10 mg BID 3.. 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 Repeat an echo per cardiology. Continue the colchicine 0.6 b.i.d. 4.. Pancreatitis. The patient seems to be improving. 5.. Pleural effusion. Appears to be more consistent with infection rather than Lupus flare, per Pulmonary. 6. Cirrhosis with esophageal varices. LFTs are within normal limits. We will just continue to follow. 7. Raynaud's syndrome, status post finger amputation. Raynaud's precautions. 8. 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 The pneumatosis this is an acute mesenteric ischemia, it is a venous occlusion, not arterial. It is not surgical. It needs long-term anticoagulation. She may need partial bowel resection. The thrombosis is not uncommonly seen after splenectomy and also with cirrhosis and she will need lifelong anticoagulation once she has recovered from this episode. -abx: Id is following -judicious fluids -N.p.o. -Close monitoring LILY AGRAWAL MD Dec 08, 2018 13:35
--- NOTE | 2018-12-08 13:44 | PN ---
Date/Time of Note Date/Time of Note DATE: 12/08/18 TIME: 13:39 Assessment/Plan Lines/Catheters IV Catheter Type (from [facility]): Peripheral IV Henao in Place (from [facility]): No Assessment/Plan Chief Complaint/Hosp Course 1. CT findings of pneumatosis intestinalis of right colon and hepatic flexure, concern for ischemia and microperforation of right colon; continues to be hemodynamically stable; abdominal pain improving -abx per ID -judicious fluids -Continue n.p.o. for now -Close monitoring -No emergent surgical intervention at this point however will need close m onitoring> if unimproved or worsens may require surgical intervention 2. Portal venous thrombosis, thrombosis of superior mesenteric vein; vascular surgery consult noted -Anticoagulation per medical team 3.Peripancreatic fluid with concern for acute pancreatitis; amylase and lipase within normal limits -fluid mgt 4. Liver cirrhosis with generalized anasarca -Hepatic optimization -Fluid management 5. Pleural effusion, pericardial effusion -Fluid management -Per cards/pulm 6. Lupus flare: Currently on steroids and colchicine -Per rheumatology 7. Obesity BMI: 34 -diet and exercise optimization -encourage weight loss 8. Leukocytosis: Uptrending however bandemia resolved -Agree with antibiotics 9.Hypochromic anemia: -Monitor and transfuse as needed 10. Thrombocytosis: -dvt prophylaxis Thank you. Patient seen and examined in collaboration with Dr. Sanjay Westbrook. Subjective 24 Hr Interval Summary Abdominal pain improving. WBC uptick however bandemia improved. No fevers, chills, sob, congested cough, cp, palpitations, crouch, dizziness, nausea, vomiting, diarrhea, dysuria. Exam/Review of Systems Vital Signs Vitals Vital Signs Date Temp Pulse Resp B/P (MAP) Pulse Ox O2 O2 Flow FiO2 Time Delivery Rate 12/08/18 98.0 53 18 137/88 97 Room Air 07:45 (104) Intake and Output 12/07/18 12/07/18 12/08/18 1515:00 23:00 07:00 IntakeIntake Total 50 ml 1018 ml 1012 ml BalanceBalance 50 ml 1018 ml 1012 ml Exam Free Text/Dictation Constitutional: alert, oriented Psych: nl mood/affect; No anxiety Head: normocephalic, atraumatic Eyes: nl conjunctiva, EOMI, nl lids, nl sclera ENMT: nl external ears & nose, nl lips & teeth, mucosa pink and moist Neck: supple, non-tender; No jvd Respiratory: normal air movement; No congested cough Cardiovascular: regular rate and rhythm, nl pulses; No edema Gastrointestinal: soft, tender (midepigastric, LUQ) Genitourinary - Female: nl external genitalia Musculoskeletal: nl extremities to inspection, nl gait and stance Extremities: normal pulses Neurological: nl mental status, nl speech, nl strength Skin: No rash or lesions Lymph: No nl lymph nodes Results Result Diagram: 12/08/1842512/08/18 0426 FARZANA RENEE NP Dec 08, 2018 13:44
[2018-12-08 15:04] VITALS: BP 127/71; PULSE 56; RESP 18
[2018-12-08 20:37] VITALS: BP 127/67; PULSE 50; RESP 18
[2018-12-08 21:33] VITALS: BP 116/61; PULSE 43
[2018-12-09] MEDS: MEROPENEM 1 GM/50ML(PMX) 50 ML IVPB SCH ×3 (01:55→17:44)
[2018-12-09 02:30] VITALS: BP 130/67; PULSE 48; RESP 18
[2018-12-09] MEDS: HEPARIN 25000 UNITS/250 ML 250 ML IV SCH (03:40)
[2018-12-09] MEDS: PANTOPRAZOLE (EC) 40 MG TAB PO SCH ×2 (05:25→17:44)
[2018-12-09] MEDS: SOD CHLORIDE 0.9% 1,000 ML IV SCH ×2 (05:26→18:48)
[2018-12-09] MEDS: HYDROmorphONE 1 MG/ML SYG IV PRN ×3 (05:35→20:40)
--- NOTE | 2018-12-09 07:12 | CONS ---
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 for this such as SLE, pancreatitis and cirrhosis patient was started on anti-coagulation 4) pneumatosis intestinalis (PI) this is a known complication of PV thrombus and does not necessarily mean actual bowel infection/infarction but the fact that there is some free air does complicate things ok to continue with merrem, will d/c ampicillin and levaquin at this time no evidence to suggest she has a lung infection which also could cause PI if anticoagulation does not resolve her abd pain she may need another abd CT to verify no further evidence of abd infection 12/09 - less abd pain today and WBC and platelets are improved (both down) continue with merrem would repeat abd/pelv CT with contrast next week to evaluate progress hopefully with oral contrast(gastrograffin) to see if any perf is present 5) pancreatitis by CT and clinical exam is c/w it too but lipase and amylase do not correlate merrem has good penetration into the pancreas and any infectious process there should be covered with merrem 12/09 - pancreatitis can cause rise in procalcitonin and it was not, diagnosis of pancreatitis is iffy and inflammation around it may be secondary to local infection due to other cause 6) gastric ulcers on treatment Consultation Date/Type/Reason Admit Date/Time Nov 29, 2018 at 06:15 Initial Consult Date 12/08/18 Type of Consult ID Date/Time of Note DATE: 12/09/18 TIME: 07:04 24 HR Interval Summary Free Text/Dictation pt's abd pain is improved no N, V, she had one watery stool with some chunks in it yesterday breathing is ok Exam/Review of Systems Exam Vitals Vital Signs Date Temp Pulse Resp B/P (MAP) Pulse Ox O2 O2 Flow FiO2 Time Delivery Rate 12/09/18 98.1 48 18 130/67 97 02:30 (88) 12/08/18 Room Air 15:04 Intake and Output 12/08/18 12/08/18 12/09/18 1515:00 23:00 07:00 IntakeIntake Total 115 ml 122 ml 1344 ml BalanceBalance 115 ml 122 ml 1344 ml Constitutional: alert, oriented ENMT: mucosa pink and moist Respiratory: clear to auscultation Cardiovascular: regular rate and rhythm Gastrointestinal: soft, non-tender Results Result Diagram: 12/09/18 0531 12/09/18 0531 Results 24hrs Laboratory Tests Test 12/08/18 10:42 12/08/18 18:02 12/09/18 00:26 12/09/18 05:31 Activated 103.8 *H 76.9 *H 69.3 H Partial Thromboplast Time White Blood Count 14.1 H Red Blood Count 3.75 L Hemoglobin 9.4 L Hematocrit 30.8 L Mean Corpuscular 82.1 Volume Mean Corpuscular 25.1 L Hemoglobin Mean Corpuscular 30.5 L Hemoglobin Concent Red Cell 17.1 H Distribution Width Platelet Count 475 H Mean Platelet Volume 9.9 Immature 0.800 H Granulocytes % Neutrophils % 80.9 H Lymphocytes % 2.3 L Monocytes % 13.9 H Eosinophils % 2.0 Basophils % 0.1 Nucleated Red Blood 9.8 H Cells % Immature 0.110 H Granulocytes # Neutrophils # 11.5 H Lymphocytes # 0.3 L Monocytes # 2.0 H Eosinophils # 0.3 Basophils # 0.0 Nucleated Red Blood 1.4 H Cells # Sodium Level 136 Potassium Level 4.0 Chloride Level 104 Carbon Dioxide Level 28 Anion Gap 4 L Blood Urea Nitrogen 14 Creatinine 0.51 Est Glomerular > 60 Filtrat Rate mL/min Glucose Level 100 Calcium Level 8.7 Phosphorus Level 3.6 Magnesium Level 2.1 Total Bilirubin 0.8 Direct Bilirubin 0.00 Indirect Bilirubin 0.8 Aspartate Amino 28 Transf (AST/SGOT) Alanine 32 Aminotransferase (AL T/SGPT) Alkaline Phosphatase 96 Total Protein 5.9 L Albumin 2.7 L Globulin 3.20 Albumin/Globulin 0.84 Ratio Medications Medication Current Medications IV Flush (NS 3 ml) 3 ml PER PROTOCOL IV ; Start 11/29/18 at 07:00 Ondansetron HCl (Zofran Inj) 4 mg Q6H PRN IV NAUSEA/VOMITING Last administered on 12/08/18at 20:51; Admin Dose 4 MG; Start 11/29/18 at 07:00 Acetaminophen (Tylenol Tab) 650 mg Q6H PRN PO .PAIN 1-3 OR TEMP; Start 11/29/18 at 07:00 Acetaminophen/ Hydrocodone Bitart ([place] (5/325)) 1 tab Q6H PRN PO .MOD PAIN 4- 6 Last administered on 12/02/18 11:08; Admin Dose 1 TAB; Start 11/29/18 at 07:00 Docusate Sodium (Colace) 100 mg Q12H PRN PO .CONSTIPATION; Start 11/29/18 at 07:00 Magnesium Hydroxide (Milk Of Mag) 30 ml DAILY PRN PO .CONSTIPATION; Start 11/29/18 at 07:00 Lorazepam (Ativan) 0.5 mg Q6H PRN IV ANXIETY; Start 11/29/18 at 07:00 Albuterol/ Ipratropium (Duoneb) 3 ml Q4H RESP THERAPY PRN HHN SHORTNESS OF BREATH; Start 11/29/18 at 07:00 Hydralazine HCl (Apresoline) 10 mg Q6H PRN IV for sys bp > 180; Start 11/29/18 at 07:00 Nitroglycerin (Nitroglycerin (Sl Tab) 0.4 Mg) 1 tab Q5M PRN SL ANGINA Last administered on 11/30/18 10:24; Admin Dose 1 TAB; Start 11/29/18 at 07:00 Amlodipine Besylate (Norvasc) 5 mg BID PO Last administered on 12/08/18 09:34; Admin Dose 5 MG; Start 11/30/18 at 09:00 Azathioprine (Imuran) 100 mg DAILY PO Last administered on 12/08/18 09:33; Admin Dose 100 MG; Start 11/30/18 at 09:00 Cyclobenzaprine HCl (Flexeril) 10 mg TID PO Last administered on 12/08/18 20:46; Admin Dose 10 MG; Start 11/30/18 at 09:00 Nadolol (Corgard) 20 mg BID PO Last administered on 12/08/18 09:33; Admin Dose 20 MG; Start 11/30/18 at 09:00 Tramadol HCl (Ultram) 50 mg Q4 PRN PO PAIN Last administered on 12/03/18 03:13; Admin Dose 50 MG; Start 11/30/18 at 00:00 Calcium/Vitamin D (Oyster Shell/ Vit-D (500/200)) 1 tab DAILY PO Last administered on 12/08/18 09:34; Admin Dose 1 TAB; Start 11/30/18 at 09:00 Sucralfate (Carafate Susp) 1 gm QID PO Last administered on 12/08/18 20:37; Admin Dose 1 GM; Start 11/30/18 at 09:00 Metoclopramide HCl (Reglan) 10 mg Q6H PRN IV nausae Last administered on 11/26 02:23; Admin Dose 10 MG; Start 11/30/18 at 11:00 Colchicine (Colchicine) 0.6 mg BID PO Last administered on 12/08/18 20:39; Admin Dose 0.6 MG; Start 11/30/18 at 12:30 Hydromorphone HCl (Dilaudid) 1 mg Q4H PRN IV SEVERE PAIN LEVEL 7-10 Last administered on 12/09/18 05:35; Admin Dose 1 MG; Start 12/02/18 at 12:30 Amylase/Lipase/ Protease (Creon (87j-10m-776d)) 2 cap WITH MEALS PO Last admi nistered on 12/06/18 17:51; Admin Dose 2 CAP; Start 12/02/18 at 18:00 Lactobacillus Acidophilus/ Rhamnosus (Culturelle) 1 cap WITH MEALS PO Last administered on 12/06/18 17:51; Admin Dose 1 CAP; Start 12/05/18 at 18:00 Pantoprazole (Protonix Tab) 40 mg BID@06,18 PO Last administered on 12/09/18 05:25; Admin Dose 40 MG; Start 12/05/18 at 18:00 Meropenem/Sodium Chloride 50 ml @ 100 mls/hr Q8H IVPB Last administered on 12/09/18 01:55; Admin Dose 100 MLS/HR; Start 12/07/18 at 01:30 Sodium Chloride 1,000 ml @ 80 mls/hr [id number] IV Last administered on 12/09/18 05:26; Admin Dose 80 MLS/HR; Start 12/07/18 at 01:30 Heparin Sodium (Porcine) (Heparin (1000 Units/ml)) 7,200 unit PER PROTOCOL PRN IV aPTT<47; Start 12/07/18 at 13:00 Heparin Sodium (Porcine) (Heparin (1000 Units/ml)) 3,600 unit PER PROTOCOL PRN IV aPTT<47-57; Start 12/07/18 at 13:00 Heparin Sodium (Porcine) 250 ml @ 16 mls/hr PER PROTOCOL IV Last administered on 12/09/18at 03:40; Admin Dose 12 MLS/HR; Start 12/07/18 at 14:00 Methylprednisolone Sodium Succinate (Solu-Medrol) 10 mg BID IV Last administered on 12/08/18at 20:36; Admin Dose 10 MG; Start 12/07/18 at 21:00 ARAMIS WAKEFIELD MD Dec 09, 2018 07:12
[2018-12-09 07:43] VITALS: BP 123/73; PULSE 45; RESP 17
[2018-12-09] MEDS: COLCHICINE 0.6 MG TAB PO SCH ×2 (08:42→20:24)
[2018-12-09] MEDS: AZATHIOPRINE 50 MG TAB PO SCH (08:42)
[2018-12-09] MEDS: CYCLOBENZAPRINE 10 MG TAB PO SCH ×3 (08:42→20:24)
[2018-12-09] MEDS: CALCIUM/VITAMIN D (500/200) TAB PO SCH (08:42)
[2018-12-09] MEDS: LACTOBACILLUS RHAMNOSUS CAP PO SCH ×3 (08:42→17:44)
[2018-12-09] MEDS: CREON (24K-76K-120K) 1 CAP PO SCH ×3 (08:42→17:44)
[2018-12-09] MEDS: SUCRALFATE (100 MG/ML) 10ML CUP PO SCH ×4 (08:42→20:24)
[2018-12-09] MEDS: NADOLOL 40 MG TAB PO SCH ×2 (08:43→20:03)
[2018-12-09] MEDS: AMLODIPINE 10 MG TAB PO SCH ×2 (08:44→20:25)
[2018-12-09] MEDS: METHYLPREDNISOLONE 40 MG INJ IV SCH ×2 (08:44→20:24)
--- NOTE | 2018-12-09 09:11 | PN ---
Date/Time of Note Date/Time of Note DATE: 12/09/18 TIME: 09:10 Assessment/Plan VTE Prophylaxis Risk score (from Ns)>0 risk: 1 SCD applied (from Ns): No SCD contraindicated: other Pharmacological prophylaxis: heparin Lines/Catheters IV [facility] Type (from [facility]): Peripheral IV Urinary Cath still in place: No Assessment/Plan Hospital Course SUBJECTIVE: Continues to complain of abdominal pain, although better. Continues to complain of diarrhea. Denies any dyspnea. OBJECTIVE: Physical Exam General: Obese 33 year-old female lying in bed in no apparent distress. HEENT: Normocephalic, atraumatic. Eyes: Anicteric sclerae, conjunctivae clear. ENT: Nasal septum midline, oral mucosa moist. Neck supple, no JVD noticed. Respiratory: Bilaterally diminished breath sounds. No use of accessory muscles of respiration. No adventitious breath sounds. Cardiovascular: S1, S2 heard. No murmurs or gallops. Abdomen: Soft and nondistended. Diffuse tenderness. Bowel sounds positive in all 4 quadrants. Genitourinary: Deferred. Extremities: No cyanosis, no clubbing, no edema. Peripheral pulses palpable. Neurologic: Cranial nerves II through XII grossly intact. The patient is awake, alert, and oriented. Skin: Normal skin turgor. No skin rashes. Labs & Vitals per chart ASSESSMENT & PLAN 33-year-old female with comorbidities including lupus, gastritis, hypertension, chronic liver cirrhosis with history of esophageal varices, Raynaud's syndrome with history of right mid finger finger amputation, and obesity who came to the emergency room with chief complaint of epigastric abdominal pain with evidence of underlying pancreatitis, who was admitted to inpatient setting for further treatment and evaluation. 1. Abdominal pain. CT of the abdomen and pelvis on showing acute pancreatitis. Repeat abdominal CT on 12/06/2018 showed pneumatosis intestinalis cyst of the right colon and hepatic flexure, raising concerning for bowel ischemia with several foci of free air in the right lower quadrant worrisome for microperforation of the right colon. General surgery following. The patient was started on antimicrobial therapy including coverage for anaerobes. ID following. 2. 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 Vascular surgery consult has been obtained. Vascular surgery recommended anticoagulation. Started heparin gtt on 12/07/2018. 3. Acute pancreatitis. Continue Creon. Continue gastroenterology recommendations. 4. Lupus flare. Continue rheumatology recommendations. Continue steroids. 5. History of extrinsic gastric ulcers. Continue PPI and Carafate. 6. Chronic liver cirrhosis with history of esophageal varices. Being followed by gastroenterology. Continue nonselective beta-blockers. 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 Continue colchicine and steroids. 8. History of Raynaud's syndrome. Status post right mid finger amputation. Continue Raynaud's precautions. 9. Diarrhea. Continue probiotics. Stool cultures showing coliform bacteria. 10. Obesity. BMI more than 34 kg/m. Advised weight reduction. 11. Hypertension. Continue antihypertensives. 12. Parapneumonic effusion. On antimicrobials. Pulmonology following. 13. Fluids, electrolytes, and nutrition. NPO except for medications. IVFs. 14. DVT prophylaxis. Heparin gtt. 15. Plan. Continue pain control. Continue antimicrobials. Continue anticoagulation. Await clinical improvement. The patient was seen in collaboration with Dr. Finley. Result Diagram: 12/09/18 0531 12/09/18 0531 Results 24hrs Laboratory Tests Test 12/08/18 10:42 12/08/18 18:02 12/09/18 00:26 12/09/18 05:31 Activated 103.8 *H 76.9 *H 69.3 H Partial Thromboplast Time White Blood Count 14.1 H Red Blood Count 3.75 L Hemoglobin 9.4 L Hematocrit 30.8 L Mean Corpuscular 82.1 Volume Mean Corpuscular 25.1 L Hemoglobin Mean Corpuscular 30.5 L Hemoglobin Concent Red Cell 17.1 H Distribution Width Platelet Count 475 H Mean Platelet Volume 9.9 Immature 0.800 H Granulocytes % Neutrophils % 80.9 H Lymphocytes % 2.3 L Monocytes % 13.9 H Eosinophils % 2.0 Basophils % 0.1 Nucleated Red Blood 9.8 H Cells % Immature 0.110 H Granulocytes # Neutrophils # 11.5 H Lymphocytes # 0.3 L Monocytes # 2.0 H Eosinophils # 0.3 Basophils # 0.0 Nucleated Red Blood 1.4 H Cells # Sodium Level 136 Potassium Level 4.0 Chloride Level 104 Carbon Dioxide Level 28 Anion Gap 4 L Blood Urea Nitrogen 14 Creatinine 0.51 Est Glomerular > 60 Filtrat Rate mL/min Glucose Level 100 Calcium Level 8.7 Phosphorus Level 3.6 Magnesium Level 2.1 Total Bilirubin 0.8 Direct Bilirubin 0.00 Indirect Bilirubin 0.8 Aspartate Amino 28 Transf (AST/SGOT) Alanine 32 Aminotransferase (AL T/SGPT) Alkaline Phosphatase 96 Total Protein 5.9 L Albumin 2.7 L Globulin 3.20 Albumin/Globulin 0.84 Ratio Procalcitonin 0.04 Exam/Review of Systems Exam Vitals Vital Signs Date Temp Pulse Resp B/P (MAP) Pulse Ox O2 O2 Flow FiO2 Time Delivery Rate 12/09/18 97.9 45 17 123/73 100 Room Air 07:43 (90) Intake and Output 12/08/18 12/08/18 12/09/18 1515:00 23:00 07:00 IntakeIntake Total 115 ml 122 ml 1344 ml BalanceBalance 115 ml 122 ml 1344 ml Results Results 24hrs Laboratory Tests Test 12/08/18 10:42 12/08/18 18:02 12/09/18 00:26 12/09/18 05:31 Activated 103.8 *H 76.9 *H 69.3 H Partial Thromboplast Time White Blood Count 14.1 H Red Blood Count 3.75 L Hemoglobin 9.4 L Hematocrit 30.8 L Mean Corpuscular 82.1 Volume Mean Corpuscular 25.1 L Hemoglobin Mean Corpuscular 30.5 L Hemoglobin Concent Red Cell 17.1 H Distribution Width Platelet Count 475 H Mean Platelet Volume 9.9 Immature 0.800 H Granulocytes % Neutrophils % 80.9 H Lymphocytes % 2.3 L Monocytes % 13.9 H Eosinophils % 2.0 Basophils % 0.1 Nucleated Red Blood 9.8 H Cells % Immature 0.110 H Granulocytes # Neutrophils # 11.5 H Lymphocytes # 0.3 L Monocytes # 2.0 H Eosinophils # 0.3 Basophils # 0.0 Nucleated Red Blood 1.4 H Cells # Sodium Level 136 Potassium Level 4.0 Chloride Level 104 Carbon Dioxide Level 28 Anion Gap 4 L Blood Urea Nitrogen 14 Creatinine 0.51 Est Glomerular > 60 Filtrat Rate mL/min Glucose Level 100 Calcium Level 8.7 Phosphorus Level 3.6 Magnesium Level 2.1 Total Bilirubin 0.8 Direct Bilirubin 0.00 Indirect Bilirubin 0.8 Aspartate Amino 28 Transf (AST/SGOT) Alanine 32 Aminotransferase (AL T/SGPT) Alkaline Phosphatase 96 Total Protein 5.9 L Albumin 2.7 L Globulin 3.20 Albumin/Globulin 0.84 Ratio Procalcitonin 0.04 Medications Medication Current Medications IV Flush (NS 3 ml) 3 ml PER PROTOCOL IV ; Start 11/29/18 at 07:00 Ondansetron HCl (Zofran Inj) 4 mg Q6H PRN IV NAUSEA/VOMITING Last administered on 12/08/18 20:51; Admin Dose 4 MG; Start 11/29/18 at 07:00 Acetaminophen (Tylenol Tab) 650 mg Q6H PRN PO .PAIN 1-3 OR TEMP; Start 11/29/18 at 07:00 Acetaminophen/ Hydrocodone Bitart ([place] (5/325)) 1 tab Q6H PRN PO .MOD PAIN 4- 6 Last administered on 12/02/18 11:08; Admin Dose 1 TAB; Start 11/29/18 at 07:00 Docusate Sodium (Colace) 100 mg Q12H PRN PO .CONSTIPATION; Start 11/29/18 at 07:00 Magnesium Hydroxide (Milk Of Mag) 30 ml DAILY PRN PO .CONSTIPATION; Start 11/29/18 at 07:00 Lorazepam (Ativan) 0.5 mg Q6H PRN IV ANXIETY; Start 11/29/18 at 07:00 Albuterol/ Ipratropium (Duoneb) 3 ml Q4H RESP THERAPY PRN HHN SHORTNESS OF BREATH; Start 11/29/18 at 07:00 Hydralazine HCl (Apresoline) 10 mg Q6H PRN IV for sys bp > 180; Start 11/29/18 at 07:00 Nitroglycerin (Nitroglycerin (Sl Tab) 0.4 Mg) 1 tab Q5M PRN SL ANGINA Last administered on 11/30/18 10:24; Admin Dose 1 TAB; Start 11/29/18 at 07:00 Amlodipine Besylate (Norvasc) 5 mg BID PO Last administered on 12/09/18 08:44; Admin Dose 5 MG; Start 11/30/18 at 09:00 Azathioprine (Imuran) 100 mg DAILY PO Last administered on 12/09/18 08:42; Admin Dose 100 MG; Start 11/30/18 at 09:00 Cyclobenzaprine HCl (Flexeril) 10 mg TID PO Last administered on 12/09/18 08:42; Admin Dose 10 MG; Start 11/30/18 at 09:00 Nadolol (Corgard) 20 mg BID PO Last administered on 12/08/18 09:33; Admin Dose 20 MG; Start 11/30/18 at 09:00 Tramadol HCl (Ultram) 50 mg Q4 PRN PO PAIN Last administered on 12/03/18 03:13; Admin Dose 50 MG; Start 11/30/18 at 00:00 Calcium/Vitamin D (Oyster Shell/ Vit-D (500/200)) 1 tab DAILY PO Last administered on 12/09/18 08:42; Admin Dose 1 TAB; Start 11/30/18 at 09:00 Sucralfate (Carafate Susp) 1 gm QID PO Last administered on 12/09/18 08:42; Admin Dose 1 GM; Start 11/30/18 at 09:00 Metoclopramide HCl (Reglan) 10 mg Q6H PRN IV nausae Last administered on 12/06/18 02:23; Admin Dose 10 MG; Start 11/30/18 at 11:00 Colchicine (Colchicine) 0.6 mg BID PO Last administered on 12/09/18 08:42; Admin Dose 0.6 MG; Start 11/30/18 at 12:30 Hydromorphone HCl (Dilaudid) 1 mg Q4H PRN IV SEVERE PAIN LEVEL 7-10 Last administered on 12/09/18 05:35; Admin Dose 1 MG; Start 12/02/18 at 12:30 Amylase/Lipase/ Protease (Creon (20c-58w-251f)) 2 cap WITH MEALS PO Last administered on 12/09/18 08:42; Admin Dose 2 CAP; Start 12/02/18 at 18:00 Lactobacillus Acidophilus/ Rhamnosus (Culturelle) 1 cap WITH MEALS PO Last administered on 12/09/18 08:42; Admin Dose 1 CAP; Start 12/05/18 at 18:00 Pantoprazole (Protonix Tab) 40 mg BID@06,18 PO Last administered on 12/09/18 05:25; Admin Dose 40 MG; Start 12/05/18 at 18:00 Meropenem/Sodium Chloride 50 ml @ 100 mls/hr Q8H IVPB Last administered on 12/09/18 08:42; Admin Dose 100 MLS/HR; Start 12/07/18 at 01:30 Sodium Chloride 1,000 ml @ 80 mls/hr [id number] IV Last administered on 12/09/18 05:26; Admin Dose 80 MLS/HR; Start 12/07/18 at 01:30 Heparin Sodium (Porcine) (Heparin (1000 Units/ml)) 7,200 unit PER PROTOCOL PRN IV aPTT<47; Start 12/07/18 at 13:00 Heparin Sodium (Porcine) (Heparin (1000 Units/ml)) 3,600 unit PER PROTOCOL PRN IV aPTT<47-57; Start 12/07/18 at 13:00 Heparin Sodium (Porcine) 250 ml @ 16 mls/hr PER PROTOCOL IV Last administered on 12/09/18 03:40; Admin Dose 12 MLS/HR; Start 12/07/18 at 14:00 Methylprednisolone Sodium Succinate (Solu-Medrol) 10 mg BID IV Last administered on 12/09/18 08:44; Admin Dose 10 MG; Start 12/07/18 at 21:00 MERCY GALLEGOS NP Dec 09, 2018 09:11
[2018-12-09 13:50] VITALS: BP 132/77; PULSE 48; RESP 18
--- NOTE | 2018-12-09 14:11 | PN ---
Date/Time of Note Date/Time of Note DATE: 12/09/18 TIME: 14:09 Assessment/Plan Lines/Catheters IV Catheter Type (from [facility]): Peripheral IV Henao in Place (from [facility]): No Assessment/Plan Chief Complaint/Hosp Course 1. CT findings of pneumatosis intestinalis of right colon and hepatic flexure, concern for ischemia and microperforation of right colon; continues to be hemodynamically stable; abdominal pain improving -continues abx per ID -judicious fluids -Continue n.p.o. for now -Close monitoring -No emergent surgical intervention at this point however will need close monitoring> if unimproved or worsens may require surgical intervention 2. Portal venous thrombosis, thrombosis of superior mesenteric vein; vascular surgery consult noted -Anticoagulation per medical team 3.Peripancreatic fluid with concern for acute pancreatitis; amylase and lipase within normal limits -fluid mgt 4. Liver cirrhosis with generalized anasarca -Hepatic optimization -Fluid management 5. Pleural effusion, pericardial effusion -Fluid management -Per cards/pulm 6. Lupus flare: Currently on steroids and colchicine -Per rheumatology 7. Obesity BMI: 34 -diet and exercise optimization -encourage weight loss 8. Leukocytosis:improving -Agree with antibiotics 9.Hypochromic anemia: -Monitor and transfuse as needed 10. Thrombocytosis: improving -dvt prophylaxis Thank you. Patient seen and examined in collaboration with Dr. Sanjay Westbrook. Subjective 24 Hr Interval Summary Feels better. No fevers, chills, sob, congested cough, cp, palpitations, crouch, dizziness, n/v/d/dysuria. + bowel function. WBC improving. Exam/Review of Systems Vital Signs Vitals Vital Signs Date Temp Pulse Resp B/P (MAP) Pulse Ox O2 O2 Flow FiO2 Time Delivery Rate 12/09/18 97.8 48 18 132/77 98 Room Air 13:50 (95) Intake and Output 12/08/18 12/08/18 12/09/18 1515:00 23:00 07:00 IntakeIntake Total 115 ml 122 ml 1344 ml BalanceBalance 115 ml 122 ml 1344 ml Exam Free Text/Dictation Constitutional: alert, oriented Psych: nl mood/affect; No anxiety Head: normocephalic, atraumatic Eyes: nl conjunctiva, EOMI, nl lids, nl sclera ENMT: nl external ears & nose, nl lips & teeth, mucosa pink and moist Neck: supple, non-tender; No jvd Respiratory: normal air movement; No congested cough Cardiovascular: regular rate and rhythm, nl pulses; No edema Gastrointestinal: soft, nontender Genitourinary - Female: nl external genitalia Musculoskeletal: nl extremities to inspection, nl gait and stance Extremities: normal pulses Neurological: nl mental status, nl speech, nl strength Skin: No rash or lesions Lymph: No nl lymph nodes Results Result Diagram: 12/09/18 0531 12/09/18 0531 FARZANA RENEE NP Dec 09, 2018 14:11
--- NOTE | 2018-12-09 15:36 | PN ---
Date/Time of Note Date/Time of Note DATE: 12/09/18 TIME: 15:23 Assessment/Plan VTE Prophylaxis Risk score (from Nsg)>0 risk: 1 SCD applied (from [facility]sg): No SCD contraindicated: low risk/ambulating Pharmacological prophylaxis: heparin Lines/Catheters IV Catheter Type (from [facility]): Peripheral IV Urinary Cath still in place: No Assessment/Plan Assessment/Plan Assessment: Epigastric pain-with radiation to left upper quadrant and left flank/back -CT is concerning for pancreatitis, however lipase and amylase WNL -Repeat abdominal CT on 12/06/2018 showed pneumatosis intestinalis cyst of the right colon and hepatic flexure, raising concerning for bowel ischemia with a several foci of free air in the right lower quadrant worrisome for microperforation of the right colon. 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 -Pt consulted by vascular sx -Currently on anti-coagulation Left pleural effusion Diarrhea -Stool Cx- coliform Pericardial effusion, moderate -Echocardiogram - Small to borderline moderate circumferential pericardial effusion without evidence of tamponade. EF 55% Normocytic Anemia Recent History Hematemesis EGD 11/15/2018 Extensive ulceration of the distal esophagus, rule out opportunistic infection, biopsies obtained. Grade II/IV esophageal varices. No stigmata of recent bleeding. No therapeutic intervention required Mild gastritis versus portal gastropathy, Otherwise normal EGD Stomach biopsy negative for H. pylori infection, no evidence of intestinal metaplasia, dysplasia, or malignancy Esophageal ulcer biopsy mucosa showing moderate chronic inflammation no squamous mucosa is present. No goblet cells are identified, no H. pylori is identified, no evidence of dysplasia or malignancy SLE/Rheumatoid arthritis/Raynaud's syndrome -On prednisone. History of Splenectomy Depression HTN Hx of EGD/colonoscopy 09/26/18 Colonoscopy 09/26/2018colitis more significant in the area of the rectum moderate size internal hemorrhoidsbiopsy negative for evidence of colitis EGD grade II/IV esophageal varices, severe gastritisbiopsies negative for H. pylori Liver cirrhosis- with hx of EV -Hepatitis serology negative -ASMA,AMA- negative Thrombocytosis Status post finger amputation secondary to Raynaud's syndrome Leukocytosis Plan: NPO Continue anti-coagulation F/u on surgical recommendations Abx per ID Continue supportive care. Patient seen in collaboration with Subjective: Course reviewed with nursing staff Patient interviewed and examined All labs, imaging and other results reviewed Patient is doing well. She is currently n.p.o. Denies nausea or vomiting. Complaining of epigastric and left upper quadrant tenderness. Patient had 3 loose bowel movement today. Patient states bowel movements are not as watery anymore. No surgical interventions at this time. WBC trending down. Continue observation Exam PHYSICAL EXAMINATION: GENERAL: Chronically ill appearing young woman, alert & oriented x 3, edema/swelling from chronic steroid use SKIN: No lesions. HEAD: Normocephalic, atraumatic, no tenderness. EYES: Pupils equal reactive to light, no discharge. EARS/NOSE AND THROAT: Ears normal, nose normal. NECK: Supple, no masses, thyroid normal. CHEST: Inspection within normal limits. CARDIOVASCULAR: Heart: Regular rate and rhythm RESPIRATORY: Lungs clear to auscultation. GASTROINTESTINAL AND LIVER: Abdomen: obese, soft, epigastric and left upper quadrant tenderness, non-distended, no hernias, no masses, normoactive bowel sounds. Rectal: Deferred. EXTREMITIES: No cyanosis, clubbing or edema. Right index finger amputated 1 phalanx Result Diagram: 12/09/18 0531 12/09/18 0531 Results 24hrs Laboratory Tests Test 12/08/18 18:02 12/09/18 00:26 12/09/18 05:31 Activated Partial Thromboplast Time 76.9 *H 69.3 H White Blood Count 14.1 H Red Blood Count 3.75 L Hemoglobin 9.4 L Hematocrit 30.8 L Mean Corpuscular Volume 82.1 Mean Corpuscular Hemoglobin 25.1 L Mean Corpuscular Hemoglobin Concent 30.5 L Red Cell Distribution Width 17.1 H Platelet Count 475 H Mean Platelet Volume 9.9 Immature Granulocytes % 0.800 H Neutrophils % 80.9 H Lymphocytes % 2.3 L Monocytes % 13.9 H Eosinophils % 2.0 Basophils % 0.1 Nucleated Red Blood Cells % 9.8 H Immature Granulocytes # 0.110 H Neutrophils # 11.5 H Lymphocytes # 0.3 L Monocytes # 2.0 H Eosinophils # 0.3 Basophils # 0.0 Nucleated Red Blood Cells # 1.4 H Sodium Level 136 Potassium Level 4.0 Chloride Level 104 Carbon Dioxide Level 28 Anion Gap 4 L Blood Urea Nitrogen 14 Creatinine 0.51 Est Glomerular Filtrat Rate mL/min > 60 Glucose Level 100 Calcium Level 8.7 Phosphorus Level 3.6 Magnesium Level 2.1 Total Bilirubin 0.8 Direct Bilirubin 0.00 Indirect Bilirubin 0.8 Aspartate Amino Transf (AST/SGOT) 28 Alanine Aminotransferase (ALT/SGPT) 32 Alkaline Phosphatase 96 Total Protein 5.9 L Albumin 2.7 L Globulin 3.20 Albumin/Globulin Ratio 0.84 Procalcitonin 0.04 CC: PAUL ANTHONY MD ; Exam/Review of Systems Exam Vitals Vital Signs Date Temp Pulse Resp B/P (MAP) Pulse Ox O2 O2 Flow FiO2 Time Delivery Rate 12/09/18 97.8 48 18 132/77 98 Room Air 13:50 (95) Intake and Output 12/08/18 12/08/18 12/09/18 1515:00 23:00 07:00 IntakeIntake Total 115 ml 122 ml 1344 ml BalanceBalance 115 ml 122 ml 1344 ml Results Results 24hrs Laboratory Tests Test 12/08/18 18:02 12/09/18 00:26 12/09/18 05:31 Activated Partial Thromboplast Time 76.9 *H 69.3 H White Blood Count 14.1 H Red Blood Count 3.75 L Hemoglobin 9.4 L Hematocrit 30.8 L Mean Corpuscular Volume 82.1 Mean Corpuscular Hemoglobin 25.1 L Mean Corpuscular Hemoglobin Concent 30.5 L Red Cell Distribution Width 17.1 H Platelet Count 475 H Mean Platelet Volume 9.9 Immature Granulocytes % 0.800 H Neutrophils % 80.9 H Lymphocytes % 2.3 L Monocytes % 13.9 H Eosinophils % 2.0 Basophils % 0.1 Nucleated Red Blood Cells % 9.8 H Immature Granulocytes # 0.110 H Neutrophils # 11.5 H Lymphocytes # 0.3 L Monocytes # 2.0 H Eosinophils # 0.3 Basophils # 0.0 Nucleated Red Blood Cells # 1.4 H Sodium Level 136 Potassium Level 4.0 Chloride Level 104 Carbon Dioxide Level 28 Anion Gap 4 L Blood Urea Nitrogen 14 Creatinine 0.51 Est Glomerular Filtrat Rate mL/min > 60 Glucose Level 100 Calcium Level 8.7 Phosphorus Level 3.6 Magnesium Level 2.1 Total Bilirubin 0.8 Direct Bilirubin 0.00 Indirect Bilirubin 0.8 Aspartate Amino Transf (AST/SGOT) 28 Alanine Aminotransferase (ALT/SGPT) 32 Alkaline Phosphatase 96 Total Protein 5.9 L Albumin 2.7 L Globulin 3.20 Albumin/Globulin Ratio 0.84 Procalcitonin 0.04 Medications Medication Current Medications IV Flush (NS 3 ml) 3 ml PER PROTOCOL IV ; Start 11/29/18 at 07:00 Ondansetron HCl (Zofran Inj) 4 mg Q6H PRN IV NAUSEA/VOMITING Last administered on 12/08/18 20:51; Admin Dose 4 MG; Start 11/29/18 at 07:00 Acetaminophen (Tylenol Tab) 650 mg Q6H PRN PO .PAIN 1-3 OR TEMP; Start 11/29/18 at 07:00 Acetaminophen/ Hydrocodone Bitart ([place] (5/325)) 1 tab Q6H PRN PO .MOD PAIN 4- 6 Last administered on 12/02/18 11:08; Admin Dose 1 TAB; Start 11/29/18 at 07:00 Docusate Sodium (Colace) 100 mg Q12H PRN PO .CONSTIPATION; Start 11/29/18 at 07:00 Magnesium Hydroxide (Milk Of Mag) 30 ml DAILY PRN PO .CONSTIPATION; Start 11/29/18 at 07:00 Lorazepam (Ativan) 0.5 mg Q6H PRN IV ANXIETY; Start 11/29/18 at 07:00 Albuterol/ Ipratropium (Duoneb) 3 ml Q4H RESP THERAPY PRN HHN SHORTNESS OF BREATH; Start 11/29/18 at 07:00 Hydralazine HCl (Apresoline) 10 mg Q6H PRN IV for sys bp > 180; Start 11/29/18 at 07:00 Nitroglycerin (Nitroglycerin (Sl Tab) 0.4 Mg) 1 tab Q5M PRN SL ANGINA Last administered on 11/30/18at 10:24; Admin Dose 1 TAB; Start 11/29/18 at 07:00 Amlodipine Besylate (Norvasc) 5 mg BID PO Last administered on 12/09/18 08:44; Admin Dose 5 MG; Start 11/30/18 at 09:00 Azathioprine (Imuran) 100 mg DAILY PO Last administered on 12/09/18 08:42; Admin Dose 100 MG; Start 11/30/18 at 09:00 Cyclobenzaprine HCl (Flexeril) 10 mg TID PO Last administered on 12/09/18 13:13; Admin Dose 10 MG; Start 11/30/18 at 09:00 Nadolol (Corgard) 20 mg BID PO Last administered on 12/08/18 09:33; Admin Dose 20 MG; Start 11/30/18 at 09:00 Tramadol HCl (Ultram) 50 mg Q4 PRN PO PAIN Last administered on 12/03/18 03:13; Admin Dose 50 MG; Start 11/30/18 at 00:00 Calcium/Vitamin D (Oyster Shell/ Vit-D (500/200)) 1 tab DAILY PO Last administered on 12/09/18 08:42; Admin Dose 1 TAB; Start 11/30/18 at 09:00 Sucralfate (Carafate Susp) 1 gm QID PO Last administered on 12/09/18 13:13; Admin Dose 1 GM; Start 11/30/18 at 09:00 Metoclopramide HCl (Reglan) 10 mg Q6H PRN IV nausae Last administered on 9at 02:23; Admin Dose 10 MG; Start 11/30/18 at 11:00 Colchicine (Colchicine) 0.6 mg BID PO Last administered on 12/09/18 08:42; Admin Dose 0.6 MG; Start 11/30/18 at 12:30 Hydromorphone HCl (Dilaudid) 1 mg Q4H PRN IV SEVERE PAIN LEVEL 7-10 Last administered on 12/09/18 09:27; Admin Dose 1 MG; Start 12/02/18 at 12:30 Amylase/Lipase/ Protease (Creon (89x-11c-854a)) 2 cap WITH MEALS PO Last administered on 12/09/18 13:13; Admin Dose 2 CAP; Start 12/02/18 at 18:00 Lactobacillus Acidophilus/ Rhamnosus (Culturelle) 1 cap WITH MEALS PO Last administered on 12/09/18 13:13; Admin Dose 1 CAP; Start 12/05/18 at 18:00 Pantoprazole (Protonix Tab) 40 mg BID@06,18 PO Last administered on 12/09/18 05:25; Admin Dose 40 MG; Start 12/05/18 at 18:00 Meropenem/Sodium Chloride 50 ml @ 100 mls/hr Q8H IVPB Last administered on 12/09/18 08:42; Admin Dose 100 MLS/HR; Start 12/07/18 at 01:30 Sodium Chloride 1,000 ml @ 80 mls/hr [id number] IV Last administered on 12/09/18 05:26; Admin Dose 80 MLS/HR; Start 12/07/18 at 01:30 Heparin Sodium (Porcine) (Heparin (1000 Units/ml)) 7,200 unit PER PROTOCOL PRN IV aPTT<47; Start 12/07/18 at 13:00 Heparin Sodium (Porcine) (Heparin (1000 Units/ml)) 3,600 unit PER PROTOCOL PRN IV aPTT<47-57; Start 12/07/18 at 13:00 Heparin Sodium (Porcine) 250 ml @ 16 mls/hr PER PROTOCOL IV Last administered on 12/09/18 03:40; Admin Dose 12 MLS/HR; Start 12/07/18 at 14:00 Methylprednisolone Sodium Succinate (Solu-Medrol) 10 mg BID IV Last administered on 12/09/18 08:44; Admin Dose 10 MG; Start 12/07/18 at 21:00 PAUL APPIAH NP Dec 09, 2018 15:35
[2018-12-09 19:50] VITALS: BP 144/61; PULSE 58; RESP 18
[2018-12-10] MEDS: MEROPENEM 1 GM/50ML(PMX) 50 ML IVPB SCH ×3 (01:30→16:56)
[2018-12-10] MEDS: HEPARIN 25000 UNITS/250 ML 250 ML IV SCH ×2 (01:33→23:10)
[2018-12-10 01:36] VITALS: BP 121/74; PULSE 56; RESP 18
[2018-12-10] MEDS: SOD CHLORIDE 0.9% 1,000 ML IV SCH ×3 (04:11→18:33)
[2018-12-10] MEDS: PANTOPRAZOLE (EC) 40 MG TAB PO SCH ×2 (05:13→17:23)
[2018-12-10] MEDS: HYDROmorphONE 1 MG/ML SYG IV PRN ×3 (05:13→23:06)
[2018-12-10 07:49] VITALS: BP 114/74; PULSE 50; RESP 18
[2018-12-10] MEDS: SUCRALFATE (100 MG/ML) 10ML CUP PO SCH ×4 (08:34→20:17)
[2018-12-10] MEDS: METHYLPREDNISOLONE 40 MG INJ IV SCH ×2 (08:34→20:17)
[2018-12-10] MEDS: CYCLOBENZAPRINE 10 MG TAB PO SCH ×3 (08:35→20:17)
[2018-12-10] MEDS: COLCHICINE 0.6 MG TAB PO SCH ×2 (08:35→20:17)
[2018-12-10] MEDS: LACTOBACILLUS RHAMNOSUS CAP PO SCH ×3 (08:35→17:23)
[2018-12-10] MEDS: CALCIUM/VITAMIN D (500/200) TAB PO SCH (08:35)
[2018-12-10] MEDS: AZATHIOPRINE 50 MG TAB PO SCH (08:35)
[2018-12-10] MEDS: CREON (24K-76K-120K) 1 CAP PO SCH ×3 (08:35→17:23)
[2018-12-10] MEDS: NADOLOL 40 MG TAB PO SCH ×2 (08:36→20:17)
[2018-12-10] MEDS: AMLODIPINE 10 MG TAB PO SCH ×2 (08:36→20:18)
--- NOTE | 2018-12-10 11:14 | PN ---
Date/Time of Note Date/Time of Note DATE: 12/10/18 TIME: 11:12 Assessment/Plan VTE Prophylaxis Risk score (from Ns)>0 risk: 1 SCD applied (from Ns): No SCD contraindicated: other Pharmacological prophylaxis: heparin Lines/Catheters IV Catheter Type (from [facility]): Peripheral IV Urinary Cath still in place: No Assessment/Plan Hospital Course SUBJECTIVE: Continues to complain of abdominal pain, although better. Denies any diarrhea. OBJECTIVE: Physical Exam General: Obese 33 year-old female lying in bed in no apparent distress. HEENT: Normocephalic, atraumatic. Eyes: Anicteric sclerae, conjunctivae clear. ENT: Nasal septum midline, oral mucosa moist. Neck supple, no JVD noticed. Respiratory: Bilaterally diminished breath sounds. No use of accessory muscles of respiration. No adventitious breath sounds. Cardiovascular: S1, S2 heard. No murmurs or gallops. Abdomen: Soft and nondistended. Diffuse tenderness. Bowel sounds positive in all 4 quadrants. Genitourinary: Deferred. Extremities: No cyanosis, no clubbing, no edema. Peripheral pulses palpable. Neurologic: Cranial nerves II through XII grossly intact. The patient is awake, alert, and oriented. Skin: Normal skin turgor. No skin rashes. Labs & Vitals per chart ASSESSMENT & PLAN 33-year-old female with comorbidities including lupus, gastritis, hypertension, chronic liver cirrhosis with history of esophageal varices, Raynaud's syndrome with history of right mid finger finger amputation, and obesity who came to the emergency room with chief complaint of epigastric abdominal pain with evidence of underlying pancreatitis, who was admitted to inpatient setting for further treatment and evaluation. 1. Abdominal pain. CT of the abdomen and pelvis on showing acute pancreatitis. Repeat abdominal CT on 12/06/2018 showed pneumatosis intestinalis of the right colon and hepatic flexure, raising concerning for bowel ischemia with several foci of free air in the right lower quadrant worrisome for microperforation of the right colon. General surgery following. The patient was started on antimicrobial therapy including coverage for anaerobes. ID following. 2. 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 Vascular surgery consult has been obtained. Vascular surgery recommended anticoagulation. Started heparin gtt on 12/07/2018. 3. Acute pancreatitis. Continue Creon. Continue gastroenterology recommendations. 4. Lupus flare. Continue rheumatology recommendations. Continue steroids. 5. History of extrinsic gastric ulcers. Continue PPI and Carafate. 6. Chronic liver cirrhosis with history of esophageal varices. Being followed by gastroenterology. Continue nonselective beta-blockers. 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 Continue colchicine and steroids. 8. History of Raynaud's syndrome. Status post right mid finger amputation. Continue Raynaud's precautions. 9. Diarrhea. Resolved. Continue probiotics. Stool cultures showing coliform bacteria. 10. Obesity. BMI more than 34 kg/m. Advised weight reduction. 11. Hypertension. Continue antihypertensives. 12. Parapneumonic effusion. On antimicrobials. Pulmonology following. 13. Fluids, electrolytes, and nutrition. NPO except for medications. IVFs. 14. DVT prophylaxis. Heparin gtt. 15. Plan. Continue pain control. Continue antimicrobials. Continue anticoagulation. Await clinical improvement. The patient was seen in collaboration with Dr. Finley. Result Diagram: 12/10/18 0556 12/10/18 0556 Results 24hrs Laboratory Tests Test 12/10/18 05:56 White Blood Count 13.4 H Red Blood Count 3.91 L Hemoglobin 9.9 L Hematocrit 32.2 L Mean Corpuscular Volume 82.4 Mean Corpuscular Hemoglobin 25.3 L Mean Corpuscular Hemoglobin Concent 30.7 L Red Cell Distribution Width 17.3 H Platelet Count 465 H Mean Platelet Volume 10.1 Immature Granulocytes % 0.800 H Neutrophils % 76.9 Lymphocytes % 3.9 L Monocytes % 15.4 H Eosinophils % 2.9 Basophils % 0.1 Nucleated Red Blood Cells % 5.9 H Immature Granulocytes # 0.110 H Neutrophils # 10.3 H Lymphocytes # 0.5 L Monocytes # 2.1 H Eosinophils # 0.4 Basophils # 0.0 Nucleated Red Blood Cells # 0.8 H Activated Partial Thromboplast Time 73.6 *H Sodium Level 137 Potassium Level 4.3 Chloride Level 103 Carbon Dioxide Level 28 Anion Gap 6 Blood Urea Nitrogen 13 Creatinine 0.49 Est Glomerular Filtrat Rate mL/min > 60 Glucose Level 95 Calcium Level 8.6 Phosphorus Level 3.7 Magnesium Level 2.1 Exam/Review of Systems Exam Vitals Vital Signs Date Temp Pulse Resp B/P (MAP) Pulse Ox O2 O2 Flow FiO2 Time Delivery Rate 12/10/18 98.1 50 18 114/74 97 Room Air 07:49 (87) Intake and Output 12/09/18 12/09/18 12/10/18 1515:00 23:00 07:00 IntakeIntake Total 50 ml 1114 ml 802 ml BalanceBalance 50 ml 1114 ml 802 ml Results Results 24hrs Laboratory Tests Test 12/10/18 05:56 White Blood Count 13.4 H Red Blood Count 3.91 L Hemoglobin 9.9 L Hematocrit 32.2 L Mean Corpuscular Volume 82.4 Mean Corpuscular Hemoglobin 25.3 L Mean Corpuscular Hemoglobin Concent 30.7 L Red Cell Distribution Width 17.3 H Platelet Count 465 H Mean Platelet Volume 10.1 Immature Granulocytes % 0.800 H Neutrophils % 76.9 Lymphocytes % 3.9 L Monocytes % 15.4 H Eosinophils % 2.9 Basophils % 0.1 Nucleated Red Blood Cells % 5.9 H Immature Granulocytes # 0.110 H Neutrophils # 10.3 H Lymphocytes # 0.5 L Monocytes # 2.1 H Eosinophils # 0.4 Basophils # 0.0 Nucleated Red Blood Cells # 0.8 H Activated Partial Thromboplast Time 73.6 *H Sodium Level 137 Potassium Level 4.3 Chloride Level 103 Carbon Dioxide Level 28 Anion Gap 6 Blood Urea Nitrogen 13 Creatinine 0.49 Est Glomerular Filtrat Rate mL/min > 60 Glucose Level 95 Calcium Level 8.6 Phosphorus Level 3.7 Magnesium Level 2.1 Medications Medication Current Medications IV Flush (NS 3 ml) 3 ml PER PROTOCOL IV ; Start 11/29/18 at 07:00 Ondansetron HCl (Zofran Inj) 4 mg Q6H PRN IV NAUSEA/VOMITING Last administered on 12/08/18at 20:51; Admin Dose 4 MG; Start 11/29/18 at 07:00 Acetaminophen (Tylenol Tab) 650 mg Q6H PRN PO .PAIN 1-3 OR TEMP; Start 11/29/18 at 07:00 Acetaminophen/ Hydrocodone Bitart ([place] (5/325)) 1 tab Q6H PRN PO .MOD PAIN 4- 6 Last administered on 12/02/18at 11:08; Admin Dose 1 TAB; Start 11/29/18 at 07:00 Docusate Sodium (Colace) 100 mg Q12H PRN PO .CONSTIPATION; Start 11/29/18 at 07:00 Magnesium Hydroxide (Milk Of Mag) 30 ml DAILY PRN PO .CONSTIPATION; Start 11/29/18 at 07:00 Lorazepam (Ativan) 0.5 mg Q6H PRN IV ANXIETY; Start 11/29/18 at 07:00 Albuterol/ Ipratropium (Duoneb) 3 ml Q4H RESP THERAPY PRN HHN SHORTNESS OF BREATH; Start 11/29/18 at 07:00 Hydralazine HCl (Apresoline) 10 mg Q6H PRN IV for sys bp > 180; Start 11/29/18 at 07:00 Nitroglycerin (Nitroglycerin (Sl Tab) 0.4 Mg) 1 tab Q5M PRN SL ANGINA Last administered on 11/30/18 10:24; Admin Dose 1 TAB; Start 11/29/18 at 07:00 Amlodipine Besylate (Norvasc) 5 mg BID PO Last administered on 12/10/18 08:36; Admin Dose 5 MG; Start 11/30/18 at 09:00 Azathioprine (Imuran) 100 mg DAILY PO Last administered on 12/10/18 08:35; Admin Dose 100 MG; Start 11/30/18 at 09:00 Cyclobenzaprine HCl (Flexeril) 10 mg TID PO Last administered on 12/10/18 08:35; Admin Dose 10 MG; Start 11/30/18 at 09:00 Nadolol (Corgard) 20 mg BID PO Last administered on 12/08/18 09:33; Admin Dose 20 MG; Start 11/30/18 at 09:00 Tramadol HCl (Ultram) 50 mg Q4 PRN PO PAIN Last administered on 12/03/18 03:13; Admin Dose 50 MG; Start 11/30/18 at 00:00 Calcium/Vitamin D (Oyster Shell/ Vit-D (500/200)) 1 tab DAILY PO Last administered on 12/10/18 08:35; Admin Dose 1 TAB; Start 11/30/18 at 09:00 Sucralfate (Carafate Susp) 1 gm QID PO Last administered on 12/10/18 08:34; Admin Dose 1 GM; Start 11/30/18 at 09:00 Metoclopramide HCl (Reglan) 10 mg Q6H PRN IV nausae Last administered on 12/06/18 02:23; Admin Dose 10 MG; Start 11/30/18 at 11:00 Colchicine (Colchicine) 0.6 mg BID PO Last administered on 12/10/18 08:35; Admin Dose 0.6 MG; Start 11/30/18 at 12:30 Hydromorphone HCl (Dilaudid) 1 mg Q4H PRN IV SEVERE PAIN LEVEL 7-10 Last administered on 12/10/18 05:13; Admin Dose 1 MG; Start 12/02/18 at 12:30 Amylase/Lipase/ Protease (Creon ([id number])) 2 cap WITH MEALS PO Last administered on 12/10/18 08:35; Admin Dose 2 CAP; Start 12/02/18 at 18:00 Lactobacillus Acidophilus/ Rhamnosus (Culturelle) 1 cap WITH MEALS PO Last administered on 12/10/18 08:35; Admin Dose 1 CAP; Start 12/05/18 at 18:00 Pantoprazole (Protonix Tab) 40 mg BID@06,18 PO Last administered on 12/10/18 05:13; Admin Dose 40 MG; Start 12/05/18 at 18:00 Meropenem/Sodium Chloride 50 ml @ 100 mls/hr Q8H IVPB Last administered on 12/10/18 09:23; Admin Dose 100 MLS/HR; Start 12/07/18 at 01:30 Heparin Sodium (Porcine) (Heparin (1000 Units/ml)) 7,200 unit PER PROTOCOL PRN IV aPTT<47; Start 12/07/18 at 13:00 Heparin Sodium (Porcine) (Heparin (1000 Units/ml)) 3,600 unit PER PROTOCOL PRN IV aPTT<47-57; Start 12/07/18 at 13:00 Heparin Sodium (Porcine) 250 ml @ 16 mls/hr PER PROTOCOL IV Last administered on 12/10/18 01:33; Admin Dose 12 MLS/HR; Start 12/07/18 at 14:00 Methylprednisolone Sodium Succinate (Solu-Medrol) 10 mg BID IV Last adminis tered on 12/10/18 08:34; Admin Dose 10 MG; Start 12/07/18 at 21:00 Sodium Chloride 1,000 ml @ 80 mls/hr [id number] IV Last administered on 12/10/18at 04:11; Admin Dose 80 MLS/HR; Start 12/10/18 at 03:00 MERCY GALLEGOS NP Dec 10, 2018 11:14
--- NOTE | 2018-12-10 12:15 | PN ---
Date/Time of Note Date/Time of Note DATE: 12/10/18 TIME: 11:48 Assessment/Plan VTE Prophylaxis Risk score (from Nsg)>0 risk: 1 SCD applied (from Nsg): Yes Pharmacological prophylaxis: heparin Lines/Catheters IV Catheter Type (from [facility]): Peripheral IV Urinary Cath still in place: No Assessment/Plan Assessment/Plan Assessment: Epigastric pain-with radiation to left upper quadrant and left flank/back -CT is concerning for pancreatitis, however lipase and amylase WNL -Repeat abdominal CT on 12/06/2018 showed pneumatosis intestinalis cyst of the right colon and hepatic flexure, raising concerning for bowel ischemia with a several foci of free air in the right lower quadrant worrisome for microperforation of the right colon. 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 -Pt consulted by vascular sx -Currently on anti-coagulation Left pleural effusion Diarrhea -Stool Cx- coliform Pericardial effusion, moderate -Echocardiogram - Small to borderline moderate circumferential pericardial effusion without evidence of tamponade. EF 55% Normocytic Anemia Recent History Hematemesis EGD 11/15/2018 Extensive ulceration of the distal esophagus, rule out opportunistic infection, biopsies obtained. Grade II/IV esophageal varices. No stigmata of recent bleeding. No therapeutic intervention required Mild gastritis versus portal gastropathy, Otherwise normal EGD Stomach biopsy negative for H. pylori infection, no evidence of intestinal metaplasia, dysplasia, or malignancy Esophageal ulcer biopsy mucosa showing moderate chronic inflammation no squamous mucosa is present. No goblet cells are identified, no H. pylori is identified, no evidence of dysplasia or malignancy SLE/Rheumatoid arthritis/Raynaud's syndrome -On prednisone. History of Splenectomy Depression HTN Hx of EGD/colonoscopy 09/26/18 Colonoscopy 09/26/2018colitis more significant in the area of the rectum mo derate size internal hemorrhoidsbiopsy negative for evidence of colitis EGD grade II/IV esophageal varices, severe gastritisbiopsies negative for H. pylori Liver cirrhosis- with hx of EV -Hepatitis serology negative -ASMA,AMA- negative Thrombocytosis Status post finger amputation secondary to Raynaud's syndrome Leukocytosis Plan: NPO Continue anti-coagulation F/u on surgical recommendations Abx per ID Continue supportive care. Patient seen in collaboration with Subjective: Course reviewed with nursing staff Patient interviewed and examined All labs, imaging and other results reviewed Patient is doing better today. Her abdominal pain improved with Levsin. Patient had one loose bowel movement last night -diarrhea improving. She is currently n.p.o. Denies nausea or vomiting. Abdominal pain located in the epigastric and left upper quadrant region radiating to the back. No surgical interventions at this time. WBC trending down. Continue observation Exam PHYSICAL EXAMINATION: GENERAL: Chronically ill appearing young woman, alert & oriented x 3, edema/swelling from chronic steroid use SKIN: No lesions. HEAD: Normocephalic, atraumatic, no tenderness. EYES: Pupils equal reactive to light, no discharge. EARS/NOSE AND THROAT: Ears normal, nose normal. NECK: Supple, no masses, thyroid normal. CHEST: Inspection within normal limits. CARDIOVASCULAR: Heart: Regular rate and rhythm RESPIRATORY: Lungs clear to auscultation. GASTROINTESTINAL AND LIVER: Abdomen: obese, soft, epigastric and left upper quadrant tenderness, non-distended, no hernias, no masses, normoactive bowel sounds. Rectal: Deferred. EXTREMITIES: No cyanosis, clubbing or edema. Right index finger amputated 1 phalanx Result Diagram: 12/10/18 0556 12/10/18 0556 Results 24hrs Laboratory Tests Test 12/10/18 05:56 White Blood Count 13.4 H Red Blood Count 3.91 L Hemoglobin 9.9 L Hematocrit 32.2 L Mean Corpuscular Volume 82.4 Mean Corpuscular Hemoglobin 25.3 L Mean Corpuscular Hemoglobin Concent 30.7 L Red Cell Distribution Width 17.3 H Platelet Count 465 H Mean Platelet Volume 10.1 Immature Granulocytes % 0.800 H Neutrophils % 76.9 Lymphocytes % 3.9 L Monocytes % 15.4 H Eosinophils % 2.9 Basophils % 0.1 Nucleated Red Blood Cells % 5.9 H Immature Granulocytes # 0.110 H Neutrophils # 10.3 H Lymphocytes # 0.5 L Monocytes # 2.1 H Eosinophils # 0.4 Basophils # 0.0 Nucleated Red Blood Cells # 0.8 H Activated Partial Thromboplast Time 73.6 *H Sodium Level 137 Potassium Level 4.3 Chloride Level 103 Carbon Dioxide Level 28 Anion Gap 6 Blood Urea Nitrogen 13 Creatinine 0.49 Est Glomerular Filtrat Rate mL/min > 60 Glucose Level 95 Calcium Level 8.6 Phosphorus Level 3.7 Magnesium Level 2.1 CC: PAUL ANTHONY MD ; Exam/Review of Systems Exam Vitals Vital Signs Date Temp Pulse Resp B/P (MAP) Pulse Ox O2 O2 Flow FiO2 Time Delivery Rate 12/10/18 98.1 50 18 114/74 97 Room Air 07:49 (87) Intake and Output 12/09/18 12/09/18 12/10/18 1515:00 23:00 07:00 IntakeIntake Total 50 ml 1114 ml 802 ml BalanceBalance 50 ml 1114 ml 802 ml Results Results 24hrs Laboratory Tests Test 12/10/18 05:56 White Blood Count 13.4 H Red Blood Count 3.91 L Hemoglobin 9.9 L Hematocrit 32.2 L Mean Corpuscular Volume 82.4 Mean Corpuscular Hemoglobin 25.3 L Mean Corpuscular Hemoglobin Concent 30.7 L Red Cell Distribution Width 17.3 H Platelet Count 465 H Mean Platelet Volume 10.1 Immature Granulocytes % 0.800 H Neutrophils % 76.9 Lymphocytes % 3.9 L Monocytes % 15.4 H Eosinophils % 2.9 Basophils % 0.1 Nucleated Red Blood Cells % 5.9 H Immature Granulocytes # 0.110 H Neutrophils # 10.3 H Lymphocytes # 0.5 L Monocytes # 2.1 H Eosinophils # 0.4 Basophils # 0.0 Nucleated Red Blood Cells # 0.8 H Activated Partial Thromboplast Time 73.6 *H Sodium Level 137 Potassium Level 4.3 Chloride Level 103 Carbon Dioxide Level 28 Anion Gap 6 Blood Urea Nitrogen 13 Creatinine 0.49 Est Glomerular Filtrat Rate mL/min > 60 Glucose Level 95 Calcium Level 8.6 Phosphorus Level 3.7 Magnesium Level 2.1 Medications Medication Current Medications IV Flush (NS 3 ml) 3 ml PER PROTOCOL IV ; Start 11/29/18 at 07:00 Ondansetron HCl (Zofran Inj) 4 mg Q6H PRN IV NAUSEA/VOMITING Last administered on 12/08/18at 20:51; Admin Dose 4 MG; Start 11/29/18 at 07:00 Acetaminophen (Tylenol Tab) 650 mg Q6H PRN PO .PAIN 1-3 OR TEMP; Start 11/29/18 at 07:00 Acetaminophen/ Hydrocodone Bitart ([place] (5/325)) 1 tab Q6H PRN PO .MOD PAIN 4- 6 Last administered on 12/02/18at 11:08; Admin Dose 1 TAB; Start 11/29/18 at 07:00 Docusate Sodium (Colace) 100 mg Q12H PRN PO .CONSTIPATION; Start 11/29/18 at 07:00 Magnesium Hydroxide (Milk Of Mag) 30 ml DAILY PRN PO .CONSTIPATION; Start 11/29/18 at 07:00 Lorazepam (Ativan) 0.5 mg Q6H PRN IV ANXIETY; Start 11/29/18 at 07:00 Albuterol/ Ipratropium (Duoneb) 3 ml Q4H RESP THERAPY PRN HHN SHORTNESS OF BREATH; Start 11/29/18 at 07:00 Hydralazine HCl (Apresoline) 10 mg Q6H PRN IV for sys bp > 180; Start 11/29/18 at 07:00 Nitroglycerin (Nitroglycerin (Sl Tab) 0.4 Mg) 1 tab Q5M PRN SL ANGINA Last administered on 11/30/18 10:24; Admin Dose 1 TAB; Start 11/29/18 at 07:00 Amlodipine Besylate (Norvasc) 5 mg BID PO Last administered on 12/10/18 08:36; Admin Dose 5 MG; Start 11/30/18 at 09:00 Azathioprine (Imuran) 100 mg DAILY PO Last administered on 12/10/18 08:35; Admin Dose 100 MG; Start 11/30/18 at 09:00 Cyclobenzaprine HCl (Flexeril) 10 mg TID PO Last administered on 12/10/18 08:35; Admin Dose 10 MG; Start 11/30/18 at 09:00 Nadolol (Corgard) 20 mg BID PO Last administered on 12/08/18 09:33; Admin Dose 20 MG; Start 11/30/18 at 09:00 Tramadol HCl (Ultram) 50 mg Q4 PRN PO PAIN Last administered on 12/03/18 03:13; Admin Dose 50 MG; Start 11/30/18 at 00:00 Calcium/Vitamin D (Oyster Shell/ Vit-D (500/200)) 1 tab DAILY PO Last administered on 12/10/18 08:35; Admin Dose 1 TAB; Start 11/30/18 at 09:00 Sucralfate (Carafate Susp) 1 gm QID PO Last administered on 12/10/18 08:34; Admin Dose 1 GM; Start 11/30/18 at 09:00 Metoclopramide HCl (Reglan) 10 mg Q6H PRN IV nausae Last administered on 12/06/18 02:23; Admin Dose 10 MG; Start 11/30/18 at 11:00 Colchicine (Colchicine) 0.6 mg BID PO Last administered on 12/10/18 08:35; Admin Dose 0.6 MG; Start 11/30/18 at 12:30 Hydromorphone HCl (Dilaudid) 1 mg Q4H PRN IV SEVERE PAIN LEVEL 7-10 Last administered on 12/10/18 05:13; Admin Dose 1 MG; Start 12/02/18 at 12:30 Amylase/Lipase/ Protease (Creon ([id number])) 2 cap WITH MEALS PO Last administered on 12/10/18 08:35; Admin Dose 2 CAP; Start 12/02/18 at 18:00 Lactobacillus Acidophilus/ Rhamnosus (Culturelle) 1 cap WITH MEALS PO Last administered on 12/10/18 08:35; Admin Dose 1 CAP; Start 12/05/18 at 18:00 Pantoprazole (Protonix Tab) 40 mg BID@06,18 PO Last administered on 12/10/18 05:13; Admin Dose 40 MG; Start 12/05/18 at 18:00 Meropenem/Sodium Chloride 50 ml @ 100 mls/hr Q8H IVPB Last administered on 12/10/18 09:23; Admin Dose 100 MLS/HR; Start 12/07/18 at 01:30 Heparin Sodium (Porcine) (Heparin (1000 Units/ml)) 7,200 unit PER PROTOCOL PRN IV aPTT<47; Start 12/07/18 at 13:00 Heparin Sodium (Porcine) (Heparin (1000 Units/ml)) 3,600 unit PER PROTOCOL PRN IV aPTT<47-57; Start 12/07/18 at 13:00 Heparin Sodium (Porcine) 250 ml @ 16 mls/hr PER PROTOCOL IV Last administered on 12/10/18 01:33; Admin Dose 12 MLS/HR; Start 12/07/18 at 14:00 Methylprednisolone Sodium Succinate (Solu-Medrol) 10 mg BID IV Last administered on 6/15/19at 08:34; Admin Dose 10 MG; Start 12/07/18 at 21:00 Sodium Chloride 1,000 ml @ 80 mls/hr [id number] IV Last administered on 12/10/18at 04:11; Admin Dose 80 MLS/HR; Start 12/10/18 at 03:00 PAUL APPIAH NP Dec 10, 2018 12:15
[2018-12-10 14:17] VITALS: BP 123/75; PULSE 58; RESP 18
[2018-12-10 19:54] VITALS: BP 118/68; PULSE 57; RESP 18
--- NOTE | 2018-12-10 20:02 | PN ---
Date/Time of Note Date/Time of Note DATE: 12/10/18 TIME: 20:02 Assessment/Plan Lines/Catheters IV Catheter Type (from [facility]): Peripheral IV [place]enao in Place (from [facility]): No Assessment/Plan Chief Complaint/Hosp Course 1. CT findings of pneumatosis intestinalis of right colon and hepatic flexure, concern for ischemia and microperforation of right colon; continues to be hemodynamically stable; abdominal pain improving; labs improving -continues abx per ID -judicious fluids -n.p.o. for now -close monitoring -repeat ct with iv/oral contrast this coming week -No emergent surgical intervention at this point however will need close monitoring> if unimproved or worsens may require surgical intervention 2. Portal venous thrombosis, thrombosis of superior mesenteric vein; vascular surgery consult noted -Anticoagulation per medical team 3. Peripancreatic fluid with concern for acute pancreatitis; amylase and lipase within normal limits -fluid mgt 4. Liver cirrhosis with generalized anasarca -Hepatic optimization -Fluid management 5. Pleural effusion, pericardial effusion -Fluid management -Per cards/pulm 6. SLE c acute flare: steroids and colchicine -Per rheumatology 7. Obesity BMI: 34 -diet and exercise optimization -encourage weight loss 8. Leukocytosis:improving -Agree with antibiotics 9. Hypochromic anemia: -Monitor and transfuse as needed 10. Thrombocytosis: improving -dvt prophylaxis Thank you, Subjective 24 Hr Interval Summary Feels better. No fevers, chills, sob, congested cough, cp, palpitations, crouch, dizziness, nausea, vomiting, dysuria. Bowel function with diarrhea. WBC improving slowly. Exam/Review of Systems Vital Signs Vitals Vital Signs Date Temp Pulse Resp B/P (MAP) Pulse Ox O2 O2 Flow FiO2 Time Delivery Rate 12/10/18 98.2 57 18 118/68 97 19:54 (85) 12/10/18 Room Air 14:17 Intake and Output 12/09/18 12/09/18 12/10/18 1515:00 23:00 07:00 IntakeIntake Total 50 ml 1114 ml 802 ml BalanceBalance 50 ml 1114 ml 802 ml Exam Free Text/Dictation Constitutional: alert, oriented Psych: nl mood/affect; No anxiety Head: normocephalic, atraumatic Eyes: nl conjunctiva, EOMI, nl lids, nl sclera ENMT: nl external ears & nose, nl lips & teeth, mucosa pink and moist Neck: supple, non-tender; No jvd Respiratory: normal air movement; No congested cough Cardiovascular: regular rate and rhythm, nl pulses; No edema Gastrointestinal: soft, nontender Genitourinary - Female: nl external genitalia Musculoskeletal: nl extremities to inspection, nl gait and stance Extremities: normal pulses Neurological: nl mental status, nl speech, nl strength Skin: No rash or lesions Lymph: No nl lymph nodes Results Result Diagram: 12/10/18 0556 12/10/18 0556 MODE BRITO MD Dec 10, 2018 20:02
[2018-12-11] MEDS: MEROPENEM 1 GM/50ML(PMX) 50 ML IVPB SCH ×3 (01:31→17:14)
[2018-12-11 01:38] VITALS: BP 118/69; PULSE 58; RESP 18
[2018-12-11] MEDS: SOD CHLORIDE 0.9% 1,000 ML IV SCH ×3 (03:42→17:14)
[2018-12-11] MEDS: PANTOPRAZOLE (EC) 40 MG TAB PO SCH ×2 (05:27→17:14)
[2018-12-11] MEDS: HYDROmorphONE 1 MG/ML SYG IV PRN ×3 (06:42→21:15)
--- NOTE | 2018-12-11 07:08 | PN ---
Date/Time of Note Date/Time of Note DATE: 12/11/18 TIME: 07:07 Assessment/Plan VTE Prophylaxis Risk score (from Ns)>0 risk: 1 SCD applied (from Ns): No SCD contraindicated: other Pharmacological prophylaxis: heparin Lines/Catheters IV Catheter Type (from [facility]): Peripheral IV Urinary Cath still in place: No Assessment/Plan Hospital Course SUBJECTIVE: No significant abdominal pain. Denies any diarrhea. OBJECTIVE: Physical Exam General: Obese 33 year-old female lying in bed in no apparent distress. HEENT: Normocephalic, atraumatic. Eyes: Anicteric sclerae, conjunctivae clear. ENT: Nasal septum midline, oral mucosa moist. Neck supple, no JVD noticed. Respiratory: Bilaterally diminished breath sounds. No use of accessory muscles of respiration. No adventitious breath sounds. Cardiovascular: S1, S2 heard. No murmurs or gallops. Abdomen: Soft and nondistended. Diffuse tenderness. Bowel sounds positive in all 4 quadrants. Genitourinary: Deferred. Extremities: No cyanosis, no clubbing, no edema. Peripheral pulses palpable. Neurologic: Cranial nerves II through XII grossly intact. The patient is awake, alert, and oriented. Skin: Normal skin turgor. No skin rashes. Labs & Vitals per chart ASSESSMENT & PLAN 33-year-old female with comorbidities including lupus, gastritis, hypertension, chronic liver cirrhosis with history of esophageal varices, Raynaud's syndrome with history of right mid finger finger amputation, and obesity who came to the emergency room with chief complaint of epigastric abdominal pain with evidence of underlying pancreatitis, who was admitted to inpatient setting for further t reatment and evaluation. 1. Abdominal pain. CT of the abdomen and pelvis on showing acute pancreatitis. Repeat abdominal CT on 12/06/2018 showed pneumatosis intestinalis of the right colon and hepatic flexure, raising concerning for bowel ischemia with several foci of free air in the right lower quadrant worrisome for microperforation of the right colon. General surgery following. The patient was started on antimicrobial therapy including coverage for anaerobes. ID following. 2. 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 Vascular surgery consult has been obtained. Vascular surgery recommended anticoagulation. Started heparin gtt on 12/07/2018. 3. Acute pancreatitis. Continue Creon. Continue gastroenterology recommendations. 4. Lupus flare. Continue rheumatology recommendations. Continue steroids. 5. History of extrinsic gastric ulcers. Continue PPI and Carafate. 6. Chronic liver cirrhosis with history of esophageal varices. Being followed by gastroenterology. Continue nonselective beta-blockers. 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 Continue colchicine and steroids. 8. History of Raynaud's syndrome. Status post right mid finger amputation. Continue Raynaud's precautions. 9. Diarrhea. Resolved. Continue probiotics. Stool cultures showing coliform bacteria. 10. Obesity. BMI more than 34 kg/m. Advised weight reduction. 11. Hypertension. Continue antihypertensives. 12. Parapneumonic effusion. On antimicrobials. Pulmonology following. 13. Fluids, electrolytes, and nutrition. NPO except for medications. IVFs. 14. DVT prophylaxis. Heparin gtt. 15. Plan. Continue pain control. Continue antimicrobials. Continue anticoagulation. Await clinical improvement. The patient was seen in collaboration with Dr. Finley. Result Diagram: 12/11/18 0556 12/11/18 0556 Results 24hrs Laboratory Tests Test 12/11/18 05:56 White Blood Count 12.8 H Red Blood Count 3.91 L Hemoglobin 9.8 L Hematocrit 32.3 L Mean Corpuscular Volume 82.6 Mean Corpuscular Hemoglobin 25.1 L Mean Corpuscular Hemoglobin Concent 30.3 L Red Cell Distribution Width 17.6 H Platelet Count 447 H Mean Platelet Volume 10.3 Immature Granulocytes % 1.300 H Neutrophils % 74.6 Lymphocytes % 6.3 L Monocytes % 16.0 H Eosinophils % 1.7 Basophils % 0.1 Nucleated Red Blood Cells % 3.4 H Immature Granulocytes # 0.160 H Neutrophils # 9.6 H Lymphocytes # 0.8 Monocytes # 2.0 H Eosinophils # 0.2 Basophils # 0.0 Nucleated Red Blood Cells # 0.4 H Activated Partial Thromboplast Time 75.6 *H Sodium Level 137 Potassium Level 4.2 Chloride Level 102 Carbon Dioxide Level 29 Anion Gap 6 Blood Urea Nitrogen 13 Creatinine 0.45 Est Glomerular Filtrat Rate mL/min > 60 Glucose Level 91 Calcium Level 8.6 Exam/Review of Systems Exam Vitals Vital Signs Date Temp Pulse Resp B/P (MAP) Pulse Ox O2 O2 Flow FiO2 Time Delivery Rate 12/11/18 98.2 58 18 118/69 96 01:38 (85) 12/10/18 Room Air 14:17 Intake and Output 12/10/18 12/10/18 12/11/18 1515:00 23:00 07:00 IntakeIntake Total 50 ml 1114 ml 1198 ml BalanceBalance 50 ml 1114 ml 1198 ml Results Results 24hrs Laboratory Tests Test 12/11/18 05:56 White Blood Count 12.8 H Red Blood Count 3.91 L Hemoglobin 9.8 L Hematocrit 32.3 L Mean Corpuscular Volume 82.6 Mean Corpuscular Hemoglobin 25.1 L Mean Corpuscular Hemoglobin Concent 30.3 L Red Cell Distribution Width 17.6 H Platelet Count 447 H Mean Platelet Volume 10.3 Immature Granulocytes % 1.300 H Neutrophils % 74.6 Lymphocytes % 6.3 L Monocytes % 16.0 H Eosinophils % 1.7 Basophils % 0.1 Nucleated Red Blood Cells % 3.4 H Immature Granulocytes # 0.160 H Neutrophils # 9.6 H Lymphocytes # 0.8 Monocytes # 2.0 H Eosinophils # 0.2 Basophils # 0.0 Nucleated Red Blood Cells # 0.4 H Activated Partial Thromboplast Time 75.6 *H Sodium Level 137 Potassium Level 4.2 Chloride Level 102 Carbon Dioxide Level 29 Anion Gap 6 Blood Urea Nitrogen 13 Creatinine 0.45 Est Glomerular Filtrat Rate mL/min > 60 Glucose Level 91 Calcium Level 8.6 Medications Medication Current Medications IV Flush (NS 3 ml) 3 ml PER PROTOCOL IV ; Start 11/29/18 at 07:00 Ondansetron HCl (Zofran Inj) 4 mg Q6H PRN IV NAUSEA/VOMITING Last administered on 12/08/18at 20:51; Admin Dose 4 MG; Start 11/29/18 at 07:00 Acetaminophen (Tylenol Tab) 650 mg Q6H PRN PO .PAIN 1-3 OR TEMP; Start 11/29/18 at 07:00 Acetaminophen/ Hydrocodone Bitart ([place] (5/325)) 1 tab Q6H PRN PO .MOD PAIN 4- 6 Last administered on 12/02/18at 11:08; Admin Dose 1 TAB; Start 11/29/18 at 07:00 Docusate Sodium (Colace) 100 mg Q12H PRN PO .CONSTIPATION; Start 11/29/18 at 07:00 Magnesium Hydroxide (Milk Of Mag) 30 ml DAILY PRN PO .CONSTIPATION; Start 11/29/18 at 07:00 Lorazepam (Ativan) 0.5 mg Q6H PRN IV ANXIETY; Start 11/29/18 at 07:00 Albuterol/ Ipratropium (Duoneb) 3 ml Q4H RESP THERAPY PRN HHN SHORTNESS OF BREATH; Start 11/29/18 at 07:00 Hydralazine HCl (Apresoline) 10 mg Q6H PRN IV for sys bp > 180; Start 11/29/18 at 07:00 Nitroglycerin (Nitroglycerin (Sl Tab) 0.4 Mg) 1 tab Q5M PRN SL ANGINA Last administered on 11/30/18 10:24; Admin Dose 1 TAB; Start 11/29/18 at 07:00 Amlodipine Besylate (Norvasc) 5 mg BID PO Last administered on 12/10/18 20:18; Admin Dose 5 MG; Start 11/30/18 at 09:00 Azathioprine (Imuran) 100 mg DAILY PO Last administered on 12/10/18 08:35; Admin Dose 100 MG; Start 11/30/18 at 09:00 Cyclobenzaprine HCl (Flexeril) 10 mg TID PO Last administered on 12/10/18 20:17; Admin Dose 10 MG; Start 11/30/18 at 09:00 Nadolol (Corgard) 20 mg BID PO Last administered on 12/10/18 20:17; Admin Dose 20 MG; Start 11/30/18 at 09:00 Tramadol HCl (Ultram) 50 mg Q4 PRN PO PAIN Last administered on 12/03/18 03:13; Admin Dose 50 MG; Start 11/30/18 at 00:00 Calcium/Vitamin D (Oyster Shell/ Vit-D (500/200)) 1 tab DAILY PO Last administered on 12/10/18 08:35; Admin Dose 1 TAB; Start 11/30/18 at 09:00 Sucralfate (Carafate Susp) 1 gm QID PO Last administered on 12/10/18 20:17; Admin Dose 1 GM; Start 11/30/18 at 09:00 Metoclopramide HCl (Reglan) 10 mg Q6H PRN IV nausae Last administered on 12/06/18 02:23; Admin Dose 10 MG; Start 11/30/18 at 11:00 Colchicine (Colchicine) 0.6 mg BID PO Last administered on 12/10/18 20:17; Admin Dose 0.6 MG; Start 11/30/18 at 12:30 Hydromorphone HCl (Dilaudid) 1 mg Q4H PRN IV SEVERE PAIN LEVEL 7-10 Last a dministered on 12/11/18 06:42; Admin Dose 1 MG; Start 12/02/18 at 12:30 Amylase/Lipase/ Protease (Creon ([id number])) 2 cap WITH MEALS PO Last administered on 12/10/18 17:23; Admin Dose 2 CAP; Start 12/02/18 at 18:00 Lactobacillus Acidophilus/ Rhamnosus (Culturelle) 1 cap WITH MEALS PO Last ad ministered on 12/10/18 17:23; Admin Dose 1 CAP; Start 12/05/18 at 18:00 Pantoprazole (Protonix Tab) 40 mg BID@06,18 PO Last administered on 12/11/18 05:27; Admin Dose 40 MG; Start 12/05/18 at 18:00 Meropenem/Sodium Chloride 50 ml @ 100 mls/hr Q8H IVPB Last administered on 12/11/18 01:31; Admin Dose 100 MLS/HR; Start 12/07/18 at 01:30 Heparin Sodium (Porcine) (Heparin (1000 Units/ml)) 7,200 unit PER PROTOCOL PRN IV aPTT<47; Start 12/07/18 at 13:00 Heparin Sodium (Porcine) (Heparin (1000 Units/ml)) 3,600 unit PER PROTOCOL PRN IV aPTT<47-57; Start 12/07/18 at 13:00 Heparin Sodium (Porcine) 250 ml @ 16 mls/hr PER PROTOCOL IV Last administered on 12/10/18 23:10; Admin Dose 12 MLS/HR; Start 12/07/18 at 14:00 Methylprednisolone Sodium Succinate (Solu-Medrol) 10 mg BID IV Last administer ed on 12/10/18 20:17; Admin Dose 10 MG; Start 12/07/18 at 21:00 Sodium Chloride 1,000 ml @ 80 mls/hr [id number] IV Last administered on 12/11/18 06:35; Admin Dose 80 MLS/HR; Start 12/10/18 at 03:00 MERCY GALLEGOS NP Dec 11, 2018 07:07
[2018-12-11 07:27] VITALS: BP 119/63; PULSE 48; RESP 18
[2018-12-11] MEDS: CYCLOBENZAPRINE 10 MG TAB PO SCH ×3 (08:29→21:14)
[2018-12-11] MEDS: CREON (24K-76K-120K) 1 CAP PO SCH ×3 (08:29→17:14)
[2018-12-11] MEDS: SUCRALFATE (100 MG/ML) 10ML CUP PO SCH ×4 (08:29→21:13)
[2018-12-11] MEDS: LACTOBACILLUS RHAMNOSUS CAP PO SCH ×3 (08:29→17:14)
[2018-12-11] MEDS: AZATHIOPRINE 50 MG TAB PO SCH (08:29)
[2018-12-11] MEDS: METHYLPREDNISOLONE 40 MG INJ IV SCH ×2 (08:30→21:13)
[2018-12-11] MEDS: COLCHICINE 0.6 MG TAB PO SCH ×2 (08:30→21:14)
[2018-12-11] MEDS: CALCIUM/VITAMIN D (500/200) TAB PO SCH (08:30)
[2018-12-11] MEDS: AMLODIPINE 10 MG TAB PO SCH ×2 (08:30→21:14)
[2018-12-11] MEDS: NADOLOL 40 MG TAB PO SCH ×2 (08:34→21:14)
--- NOTE | 2018-12-11 13:48 | PN ---
Date/Time of Note Date/Time of Note DATE: 12/11/18 TIME: 13:45 Assessment/Plan VTE Prophylaxis Risk score (from Nsg)>0 risk: 1 SCD applied (from Nsg): No SCD contraindicated: low risk/ambulating Pharmacological prophylaxis: heparin Lines/Catheters IV Catheter Type (from Nrsg): Peripheral IV Urinary Cath still in place: No Assessment/Plan Assessment/Plan Assessment: Epigastric pain-with radiation to left upper quadrant and left flank/back -CT is concerning for pancreatitis, however lipase and amylase WNL -Repeat abdominal CT on 12/06/2018 showed pneumatosis intestinalis cyst of the right colon and hepatic flexure, raising concerning for bowel ischemia with a several foci of free air in the right lower quadrant worrisome for microperforation of the right colon. 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 -Pt consulted by vascular sx -Currently on anti-coagulation Left pleural effusion Diarrhea -Stool Cx- coliform Pericardial effusion, moderate -Echocardiogram - Small to borderline moderate circumferential pericardial effusion without evidence of tamponade. EF 55% Normocytic Anemia Recent History Hematemesis EGD 11/15/2018 Extensive ulceration of the distal esophagus, rule out opportunistic infection, biopsies obtained. Grade II/IV esophageal varices. No stigmata of recent bleeding. No therapeutic intervention required Mild gastritis versus portal gastropathy, Otherwise normal EGD Stomach biopsy negative for H. pylori infection, no evidence of intestinal metaplasia, dysplasia, or malignancy Esophageal ulcer biopsy mucosa showing moderate chronic inflammation no squamous mucosa is present. No goblet cells are identified, no H. pylori is identified, no evidence of dysplasia or malignancy SLE/Rheumatoid arthritis/Raynaud's syndrome -On prednisone. History of Splenectomy Depression HTN Hx of EGD/colonoscopy 09/26/18 Colonoscopy 09/26/2018colitis more significant in the area of the rectum moderate size internal hemorrhoidsbiopsy negative for evidence of colitis EGD grade II/IV esophageal varices, severe gastritisbiopsies negative for H. pylori Liver cirrhosis- with hx of EV -Hepatitis serology negative -ASMA,AMA- negative Thrombocytosis Status post finger amputation secondary to Raynaud's syndrome Leukocytosis Plan: NPO Plan for CT scan next week Continue anti-coagulation F/u on surgical recommendations Abx per ID Continue supportive care. Patient seen in collaboration with Subjective: Course reviewed with nursing staff Patient interviewed and examined All labs, imaging and other results reviewed Patient is still having the. Feels bowel movements today. Her abdominal pain improved with Levsin. She is currently n.p.o. Denies nausea or vomiting. Abdominal pain located in the epigastric and left upper quadrant region radiating to the back. No surgical interventions at this time. Plan to reimage next week prior to restarting the diet WBC trending down. Continue observation Exam PHYSICAL EXAMINATION: GENERAL: Chronically ill appearing young woman, alert & oriented x 3, edema/swelling from chronic steroid use SKIN: No lesions. HEAD: Normocephalic, atraumatic, no tenderness. EYES: Pupils equal reactive to light, no discharge. EARS/NOSE AND THROAT: Ears normal, nose normal. NECK: Supple, no masses, thyroid normal. CHEST: Inspection within normal limits. CARDIOVASCULAR: Heart: Regular rate and rhythm RESPIRATORY: Lungs clear to auscultation. GASTROINTESTINAL AND LIVER: Abdomen: obese, soft, epigastric and left upper quadrant tenderness, non-distended, no hernias, no masses, normoactive bowel sounds. Rectal: Deferred. EXTREMITIES: No cyanosis, clubbing or edema. Right index finger amputated 1 phalanx Result Diagram: 12/11/18 0556 12/11/18 0556 Results 24hrs Laboratory Tests Test 12/11/18 05:56 White Blood Count 12.8 H Red Blood Count 3.91 L Hemoglobin 9.8 L Hematocrit 32.3 L Mean Corpuscular Volume 82.6 Mean Corpuscular Hemoglobin 25.1 L Mean Corpuscular Hemoglobin Concent 30.3 L Red Cell Distribution Width 17.6 H Platelet Count 447 H Mean Platelet Volume 10.3 Immature Granulocytes % 1.300 H Neutrophils % 74.6 Lymphocytes % 6.3 L Monocytes % 16.0 H Eosinophils % 1.7 Basophils % 0.1 Nucleated Red Blood Cells % 3.4 H Immature Granulocytes # 0.160 H Neutrophils # 9.6 H Lymphocytes # 0.8 Monocytes # 2.0 H Eosinophils # 0.2 Basophils # 0.0 Nucleated Red Blood Cells # 0.4 H Activated Partial Thromboplast Time 75.6 *H Sodium Level 137 Potassium Level 4.2 Chloride Level 102 Carbon Dioxide Level 29 Anion Gap 6 Blood Urea Nitrogen 13 Creatinine 0.45 Est Glomerular Filtrat Rate mL/min > 60 Glucose Level 91 Calcium Level 8.6 Phosphorus Level 3.7 Magnesium Level 1.9 CC: PAUL ANTHONY MD ; Exam/Review of Systems Exam Vitals Vital Signs Date Temp Pulse Resp B/P (MAP) Pulse Ox O2 O2 Flow FiO2 Time Delivery Rate 12/11/18 98.1 48 18 119/63 92 Room Air 07:27 (81) Intake and Output 12/10/18 12/10/18 12/11/18 1515:00 23:00 07:00 IntakeIntake Total 50 ml 1114 ml 1198 ml BalanceBalance 50 ml 1114 ml 1198 ml Results Results 24hrs Laboratory Tests Test 12/11/18 05:56 White Blood Count 12.8 H Red Blood Count 3.91 L Hemoglobin 9.8 L Hematocrit 32.3 L Mean Corpuscular Volume 82.6 Mean Corpuscular Hemoglobin 25.1 L Mean Corpuscular Hemoglobin Concent 30.3 L Red Cell Distribution Width 17.6 H Platelet Count 447 H Mean Platelet Volume 10.3 Immature Granulocytes % 1.300 H Neutrophils % 74.6 Lymphocytes % 6.3 L Monocytes % 16.0 H Eosinophils % 1.7 Basophils % 0.1 Nucleated Red Blood Cells % 3.4 H Immature Granulocytes # 0.160 H Neutrophils # 9.6 H Lymphocytes # 0.8 Monocytes # 2.0 H Eosinophils # 0.2 Basophils # 0.0 Nucleated Red Blood Cells # 0.4 H Activated Partial Thromboplast Time 75.6 *H Sodium Level 137 Potassium Level 4.2 Chloride Level 102 Carbon Dioxide Level 29 Anion Gap 6 Blood Urea Nitrogen 13 Creatinine 0.45 Est Glomerular Filtrat Rate mL/min > 60 Glucose Level 91 Calcium Level 8.6 Phosphorus Level 3.7 Magnesium Level 1.9 Medications Medication Current Medications IV Flush (NS 3 ml) 3 ml PER PROTOCOL IV ; Start 11/29/18 at 07:00 Ondansetron HCl (Zofran Inj) 4 mg Q6H PRN IV NAUSEA/VOMITING Last administered on 12/08/18at 20:51; Admin Dose 4 MG; Start 11/29/18 at 07:00 Acetaminophen (Tylenol Tab) 650 mg Q6H PRN PO .PAIN 1-3 OR TEMP; Start 11/29/18 at 07:00 Acetaminophen/ Hydrocodone Bitart ([place] (5/325)) 1 tab Q6H PRN PO .MOD PAIN 4- 6 Last administered on 12/02/18 11:08; Admin Dose 1 TAB; Start 11/29/18 at 07:00 Docusate Sodium (Colace) 100 mg Q12H PRN PO .CONSTIPATION; Start 11/29/18 at 07:00 Magnesium Hydroxide (Milk Of Mag) 30 ml DAILY PRN PO .CONSTIPATION; Start 11/29/18 at 07:00 Lorazepam (Ativan) 0.5 mg Q6H PRN IV ANXIETY; Start 11/29/18 at 07:00 Albuterol/ Ipratropium (Duoneb) 3 ml Q4H RESP THERAPY PRN HHN SHORTNESS OF BREATH; Start 11/29/18 at 07:00 Hydralazine HCl (Apresoline) 10 mg Q6H PRN IV for sys bp > 180; Start 11/29/18 at 07:00 Nitroglycerin (Nitroglycerin (Sl Tab) 0.4 Mg) 1 tab Q5M PRN SL ANGINA Last administered on 11/30/18 10:24; Admin Dose 1 TAB; Start 11/29/18 at 07:00 Amlodipine Besylate (Norvasc) 5 mg BID PO Last administered on 12/11/18 08:30; Admin Dose 5 MG; Start 11/30/18 at 09:00 Azathioprine (Imuran) 100 mg DAILY PO Last administered on 12/11/18 08:29; Admin Dose 100 MG; Start 11/30/18 at 09:00 Cyclobenzaprine HCl (Flexeril) 10 mg TID PO Last administered on 12/11/18 08:29; Admin Dose 10 MG; Start 11/30/18 at 09:00 Nadolol (Corgard) 20 mg BID PO Last administered on 12/10/18 20:17; Admin Dose 20 MG; Start 11/30/18 at 09:00 Tramadol HCl (Ultram) 50 mg Q4 PRN PO PAIN Last administered on 12/03/18 03:13; Admin Dose 50 MG; Start 11/30/18 at 00:00 Calcium/Vitamin D (Oyster Shell/ Vit-D (500/200)) 1 tab DAILY PO Last administered on 12/11/18 08:30; Admin Dose 1 TAB; Start 11/30/18 at 09:00 Sucralfate (Carafate Susp) 1 gm QID PO Last administered on 12/11/18 08:29; Admin Dose 1 GM; Start 11/30/18 at 09:00 Metoclopramide HCl (Reglan) 10 mg Q6H PRN IV nausae Last administered on 12/06/18 02:23; Admin Dose 10 MG; Start 11/30/18 at 11:00 Colchicine (Colchicine) 0.6 mg BID PO Last administered on 12/11/18 08:30; Admin Dose 0.6 MG; Start 11/30/18 at 12:30 Hydromorphone HCl (Dilaudid) 1 mg Q4H PRN IV SEVERE PAIN LEVEL 7-10 Last administered on 12/11/18 06:42; Admin Dose 1 MG; Start 12/02/18 at 12:30 Amylase/Lipase/ Protease (Creon ([id number])) 2 cap WITH MEALS PO Last administered on 12/11/18 08:29; Admin Dose 2 CAP; Start 12/02/18 at 18:00 Lactobacillus Acidophilus/ Rhamnosus (Culturelle) 1 cap WITH MEALS PO Last administered on 12/11/18 08:29; Admin Dose 1 CAP; Start 12/05/18 at 18:00 Pantoprazole (Protonix Tab) 40 mg BID@06,18 PO Last administered on 12/11/18 05:27; Admin Dose 40 MG; Start 12/05/18 at 18:00 Meropenem/Sodium Chloride 50 ml @ 100 mls/hr Q8H IVPB Last administered on 12/11/18 09:54; Admin Dose 100 MLS/HR; Start 12/07/18 at 01:30 Heparin Sodium (Porcine) (Heparin (1000 Units/ml)) 7,200 unit PER PROTOCOL PRN IV aPTT<47; Start 12/07/18 at 13:00 Heparin Sodium (Porcine) (Heparin (1000 Units/ml)) 3,600 unit PER PROTOCOL PRN IV aPTT<47-57; Start 12/07/18 at 13:00 Heparin Sodium (Porcine) 250 ml @ 16 mls/hr PER PROTOCOL IV Last administered on 12/10/18 23:10; Admin Dose 12 MLS/HR; Start 12/07/18 at 14:00 Methylprednisolone Sodium Succinate (Solu-Medrol) 10 mg BID IV Last administered on 12/11/18at 08:30; Admin Dose 10 MG; Start 12/07/18 at 21:00 Sodium Chloride 1,000 ml @ 80 mls/hr [id number] IV Last administered on 12/11/18at 06:35; Admin Dose 80 MLS/HR; Start 12/10/18 at 03:00 PAUL APPIAH NP Dec 11, 2018 13:48
[2018-12-11 14:37] VITALS: BP 123/74; PULSE 52; RESP 18
--- NOTE | 2018-12-11 15:08 | PN ---
Date/Time of Note Date/Time of Note DATE: 12/11/18 TIME: 15:07 Assessment/Plan Lines/Catheters IV Catheter Type (from [facility]): Peripheral IV [place] in Place (from [facility]): No Assessment/Plan Chief Complaint/Hosp Course 1. CT findings of pneumatosis intestinalis of right colon and hepatic flexure, concern for ischemia and microperforation of right colon; continues to be hemodynamically stable; abdominal pain improving; labs improving -continues abx per ID -judicious fluids -n.p.o. for now -close monitoring -repeat ct with iv/oral contrast this coming week -No emergent surgical intervention at this point however will need close monitoring> if unimproved or worsens may require surgical intervention 2. Portal venous thrombosis, thrombosis of superior mesenteric vein; vascular surgery consult noted -Anticoagulation per medical team 3. Peripancreatic fluid with concern for acute pancreatitis; amylase and lipase within normal limits -fluid mgt 4. Liver cirrhosis with generalized anasarca -Hepatic optimization -Fluid management 5. Pleural effusion, pericardial effusion -Fluid management -Per cards/pulm 6. SLE c acute flare: steroids and colchicine -Per rheumatology 7. Obesity BMI: 34 -diet and exercise optimization -encourage weight loss 8. Leukocytosis:improving -Agree with antibiotics 9. Hypochromic anemia: -Monitor and transfuse as needed 10. Thrombocytosis: improving -dvt prophylaxis Thank you, Subjective 24 Hr Interval Summary Feels better overall. No fevers, chills, sob, congested cough, cp, palpitat ions, crouch, dizziness, nausea, vomiting, dysuria. Bowel function with diarrhea. WBC improving slowly. Exam/Review of Systems Vital Signs Vitals Vital Signs Date Temp Pulse Resp B/P (MAP) Pulse Ox O2 O2 Flow FiO2 Time Delivery Rate 12/11/18 98.2 52 18 123/74 99 14:37 (90) 12/11/18 Room Air 07:27 Intake and Output 12/10/18 12/10/18 12/11/18 1515:00 23:00 07:00 IntakeIntake Total 50 ml 1114 ml 1198 ml BalanceBalance 50 ml 1114 ml 1198 ml Exam Free Text/Dictation Constitutional: alert, oriented Psych: nl mood/affect; No anxiety Head: normocephalic, atraumatic Eyes: nl conjunctiva, EOMI, nl lids, nl sclera ENMT: nl external ears & nose, nl lips & teeth, mucosa pink and moist Neck: supple, non-tender; No jvd Respiratory: normal air movement; No congested cough Cardiovascular: regular rate and rhythm, nl pulses; No edema Gastrointestinal: soft, nontender Genitourinary - Female: nl external genitalia Musculoskeletal: nl extremities to inspection, nl gait and stance Extremities: normal pulses Neurological: nl mental status, nl speech, nl strength Skin: No rash or lesions Lymph: No nl lymph nodes Results Result Diagram: 12/11/18 0556 12/11/18 0556 MODE BRITO MD Dec 11, 2018 15:08
[2018-12-11 19:45] VITALS: BP 123/72; PULSE 72; RESP 18
[2018-12-11] MEDS: HEPARIN 25000 UNITS/250 ML 250 ML IV SCH (20:58)
[2018-12-12 01:24] VITALS: BP 117/60; PULSE 54; RESP 18
[2018-12-12] MEDS: MEROPENEM 1 GM/50ML(PMX) 50 ML IVPB SCH ×3 (01:42→17:48)
[2018-12-12] MEDS: HYDROmorphONE 1 MG/ML SYG IV PRN ×3 (05:47→22:39)
[2018-12-12] MEDS: PANTOPRAZOLE (EC) 40 MG TAB PO SCH ×2 (05:47→17:46)
[2018-12-12] MEDS: SOD CHLORIDE 0.9% 1,000 ML IV SCH ×2 (05:47→18:36)
--- NOTE | 2018-12-12 07:21 | CONS ---
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 for this such as SLE, pancreatitis and cirrhosis patient was started on anti-coagulation 4) pneumatosis intestinalis (PI) this is a known complication of PV thrombus and does not necessarily mean actual bowel infection/infarction but the fact that there is some free air does complicate things ok to continue with merrem, will d/c ampicillin and levaquin at this time no evidence to suggest she has a lung infection which also could cause PI if anticoagulation does not resolve her abd pain she may need another abd CT to verify no further evidence of abd infection 12/09 - less abd pain today and WBC and platelets are improved (both down) continue with merrem would repeat abd/pelv CT with contrast next week to evaluate progress hopefully with oral contrast(gastrograffin) to see if any perf is present 12/12 - stable over weekend, abd pain still present but decreasing anticipate abd/pelv CT in the next few days continue with merrem 5) pancreatitis by CT and clinical exam is c/w it too but lipase and amylase do not correlate merrem has good penetration into the pancreas and any infectious process there should be covered with merrem 12/09 - pancreatitis can cause rise in procalcitonin and it was not, diagnosis of pancreatitis is iffy and inflammation around it may be secondary to local infection due to other cause 6) gastric ulcers on treatment Consultation Date/Type/Reason Admit Date/Time Nov 29, 2018 at 06:15 Initial Consult Date 12/08/18 Type of Consult ID Date/Time of Note DATE: 12/12/18 TIME: 07:16 24 HR Interval Summary Free Text/Dictation pt remains NPO except meds pain still decreasing and has less need for pain meds when taking meds with water no increase in abd pain loose stool overnight no cramping no N, V, SOB Exam/Review of Systems Exam Vitals Vital Signs Date Temp Pulse Resp B/P (MAP) Pulse Ox O2 O2 Flow FiO2 Time Delivery Rate 12/12/18 98.4 54 18 117/60 95 01:24 (79) 12/11/18 Room Air 07:27 Intake and Output 12/11/18 12/11/18 12/12/18 1515:00 23:00 07:00 IntakeIntake Total 50 ml 216 ml 1118 ml BalanceBalance 50 ml 216 ml 1118 ml Constitutional: alert, oriented Eyes: nl sclera ENMT: mucosa pink and moist Respiratory: clear to auscultation Gastrointestinal: soft, other (mild RUQ and mid epigastric tenderness) Results Result Diagram: 12/12/18 0604 12/12/18 0604 Results 24hrs Laboratory Tests Test 12/12/18 06:04 White Blood Count 12.5 H Red Blood Count 3.67 L Hemoglobin 9.2 L Hematocrit 30.2 L Mean Corpuscular Volume 82.3 Mean Corpuscular Hemoglobin 25.1 L Mean Corpuscular Hemoglobin Concent 30.5 L Red Cell Distribution Width 17.6 H Platelet Count 417 H Mean Platelet Volume 10.2 Immature Granulocytes % 1.400 H Neutrophils % 84.7 H Lymphocytes % 4.2 L Monocytes % 9.1 Eosinophils % 0.5 Basophils % 0.1 Nucleated Red Blood Cells % 1.7 H Immature Granulocytes # 0.170 H Neutrophils # 10.6 H Lymphocytes # 0.5 L Monocytes # 1.1 H Eosinophils # 0.1 Basophils # 0.0 Nucleated Red Blood Cells # 0.2 H Prothrombin Time 16.0 H Prothrombin Time Ratio 1.3 INR International Normalized Ratio 1.27 Activated Partial Thromboplast Time 80.9 *H Sodium Level 137 Potassium Level 4.0 Chloride Level 105 Carbon Dioxide Level 24 Anion Gap 8 Blood Urea Nitrogen 13 Creatinine 0.38 L Est Glomerular Filtrat Rate mL/min > 60 Glucose Level 85 Calcium Level 8.0 L Phosphorus Level 3.6 Magnesium Level 1.8 Medications Medication Current Medications IV Flush (NS 3 ml) 3 ml PER PROTOCOL IV ; Start 11/29/18 at 07:00 Ondansetron HCl (Zofran Inj) 4 mg Q6H PRN IV NAUSEA/VOMITING Last administered on 12/08/18at 20:51; Admin Dose 4 MG; Start 11/29/18 at 07:00 Acetaminophen (Tylenol Tab) 650 mg Q6H PRN PO .PAIN 1-3 OR TEMP; Start 11/29/18 at 07:00 Acetaminophen/ Hydrocodone Bitart ([place] (5/325)) 1 tab Q6H PRN PO .MOD PAIN 4- 6 Last administered on 12/02/18 11:08; Admin Dose 1 TAB; Start 11/29/18 at 07:00 Docusate Sodium (Colace) 100 mg Q12H PRN PO .CONSTIPATION; Start 11/29/18 at 07:00 Magnesium Hydroxide (Milk Of Mag) 30 ml DAILY PRN PO .CONSTIPATION; Start 11/29/18 at 07:00 Lorazepam (Ativan) 0.5 mg Q6H PRN IV ANXIETY; Start 11/29/18 at 07:00 Albuterol/ Ipratropium (Duoneb) 3 ml Q4H RESP THERAPY PRN HHN SHORTNESS OF BREATH; Start 11/29/18 at 07:00 Hydralazine HCl (Apresoline) 10 mg Q6H PRN IV for sys bp > 180; Start 11/29/18 at 07:00 Nitroglycerin (Nitroglycerin (Sl Tab) 0.4 Mg) 1 tab Q5M PRN SL ANGINA Last administered on 11/30/18 10:24; Admin Dose 1 TAB; Start 11/29/18 at 07:00 Amlodipine Besylate (Norvasc) 5 mg BID PO Last administered on 12/11/18 21:14; Admin Dose 5 MG; Start 11/30/18 at 09:00 Azathioprine (Imuran) 100 mg DAILY PO Last administered on 12/11/18 08:29; Admin Dose 100 MG; Start 11/30/18 at 09:00 Cyclobenzaprine HCl (Flexeril) 10 mg TID PO Last administered on 12/11/18 21:14; Admin Dose 10 MG; Start 11/30/18 at 09:00 Nadolol (Corgard) 20 mg BID PO Last administered on 12/11/18 21:14; Admin Dose 20 MG; Start 11/30/18 at 09:00 Tramadol HCl (Ultram) 50 mg Q4 PRN PO PAIN Last administered on 12/03/18 03:13; Admin Dose 50 MG; Start 11/30/18 at 00:00 Calcium/Vitamin D (Oyster Shell/ Vit-D (500/200)) 1 tab DAILY PO Last administered on 12/11/18 08:30; Admin Dose 1 TAB; Start 11/30/18 at 09:00 Sucralfate (Carafate Susp) 1 gm QID PO Last administered on 12/11/18 21:13; Admin Dose 1 GM; Start 11/30/18 at 09:00 Metoclopramide HCl (Reglan) 10 mg Q6H PRN IV nausae Last administered on 12/06/18 02:23; Admin Dose 10 MG; Start 11/30/18 at 11:00 Colchicine (Colchicine) 0.6 mg BID PO Last administered on 12/11/18 21:14; Admin Dose 0.6 MG; Start 11/30/18 at 12:30 Hydromorphone HCl (Dilaudid) 1 mg Q4H PRN IV SEVERE PAIN LEVEL 7-10 Last administered on 12/12/18 05:47; Admin Dose 1 MG; Start 12/02/18 at 12:30 Amylase/Lipase/ Protease (Creon ([id number])) 2 cap WITH MEALS PO Last administered on 12/11/18 17:14; Admin Dose 2 CAP; Start 12/02/18 at 18:00 Lactobacillus Acidophilus/ Rhamnosus (Culturelle) 1 cap WITH MEALS PO Last administered on 12/11/18 17:14; Admin Dose 1 CAP; Start 12/05/18 at 18:00 Pantoprazole (Protonix Tab) 40 mg BID@06,18 PO Last administered on 12/12/18 05:47; Admin Dose 40 MG; Start 12/05/18 at 18:00 Meropenem/Sodium Chloride 50 ml @ 100 mls/hr Q8H IVPB Last administered on 12/12/18 01:42; Admin Dose 100 MLS/HR; Start 12/07/18 at 01:30 Heparin Sodium (Porcine) (Heparin (1000 Units/ml)) 7,200 unit PER PROTOCOL PRN IV aPTT<47; Start 12/07/18 at 13:00 Heparin Sodium (Porcine) (Heparin (1000 Units/ml)) 3,600 unit PER PROTOCOL PRN IV aPTT<47-57; Start 12/07/18 at 13:00 Heparin Sodium (Porcine) 250 ml @ 16 mls/hr PER PROTOCOL IV Last administered on 12/11/18 20:58; Admin Dose 12 MLS/HR; Start 12/07/18 at 14:00 Methylprednisolone Sodium Succinate (Solu-Medrol) 10 mg BID IV Last administered on 12/11/18at 21:13; Admin Dose 10 MG; Start 12/07/18 at 21:00 Sodium Chloride 1,000 ml @ 80 mls/hr [id number] IV Last administered on 12/12/18at 05:47; Admin Dose 80 MLS/HR; Start 12/10/18 at 03:00 ARAMIS WAKEFIELD MD Dec 12, 2018 07:21
[2018-12-12 07:46] VITALS: BP 112/56; PULSE 54; RESP 20
--- NOTE | 2018-12-12 08:29 | PN ---
Date/Time of Note Date/Time of Note DATE: 12/12/18 TIME: 08:18 Assessment/Plan VTE Prophylaxis Risk score (from Nsg)>0 risk: 2 SCD applied (from Ns): No SCD contraindicated: other (scds) Pharmacological prophylaxis: other (scds) Lines/Catheters [facility] Peripheral IV Urinary Cath still in place: No Assessment/Plan Hospital Course Assessment/Plan Assessment: Epigastric pain-with radiation to left upper quadrant and left flank/back- -CT is concerning for pancreatitis, however lipase and amylase WNL -Repeat abdominal CT on 12/06/2018 showed pneumatosis intestinalis of the right colon and hepatic flexure, raising concerning for bowel ischemia with a several foci of free air in the right lower quadrant worrisome for microperf oration of the right colon. 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 -Pt consulted by vascular sx -Currently on anti-coagulation Left pleural effusion Diarrhea -Stool Cx- coliform Pericardial effusion, moderate -Echocardiogram - Small to borderline moderate circumferential pericardial effusion without evidence of tamponade. EF 55% Normocytic Anemia Recent History Hematemesis EGD 11/15/2018 Extensive ulceration of the distal esophagus, rule out opportunistic infection, biopsies obtained. Grade II/IV esophageal varices. No stigmata of recent bleeding. No therapeutic intervention required Mild gastritis versus portal gastropathy, Otherwise normal EGD Stomach biopsy negative for H. pylori infection, no evidence of intestinal metaplasia, dysplasia, or malignancy Esophageal ulcer biopsy mucosa showing moderate chronic inflammation no squamous mucosa is present. No goblet cells are identified, no H. pylori is identified, no evidence of dysplasia or malignancy SLE/Rheumatoid arthritis/Raynaud's syndrome -On prednisone. History of Splenectomy Depression HTN Hx of EGD/colonoscopy 09/26/18 Colonoscopy 09/26/2018colitis more significant in the area of the rectum moderate size internal hemorrhoidsbiopsy negative for evidence of colitis EGD grade II/IV esophageal varices, severe gastritisbiopsies negative for H. pylori Liver cirrhosis- with hx of EV -Hepatitis serology negative -ASMA,AMA- negative Thrombocytosis- improving Status post finger amputation secondary to Raynaud's syndrome Leukocytosis - trending down Plan: NPO- Consider TPN to meet nutritional/caloric needs Plan for repeat Ct in near future with contrast Continue anti-coagulation F/u on surgical recommendations Abx per ID Continue supportive care. Patient seen in collaboration with Subjective: Course reviewed with nursing staff Patient interviewed and examined All labs, imaging and other results reviewed Over all patient states she is feeling better, no over night events. She remains NPO. She states pain has improved. She loose stools are noted to be 1-3 per day- will maintain close observation Exam PHYSICAL EXAMINATION: GENERAL: Chronically ill appearing young woman, alert & oriented x 3, edema/swelling from chronic steroid use- improved SKIN: No lesions. HEAD: Normocephalic, atraumatic, no tenderness. EYES: Pupils equal reactive to light, no discharge. EARS/NOSE AND THROAT: Ears normal, nose normal. NECK: Supple, no masses, thyroid normal. CHEST: Inspection within normal limits. CARDIOVASCULAR: Heart: Regular rate and rhythm RESPIRATORY: Lungs clear to auscultation. GASTROINTESTINAL AND LIVER: Abdomen: obese, soft, epigastric and left upper quadrant tenderness, non-distended, no hernias, no masses, normoactive bowel sounds. Rectal: Deferred. EXTREMITIES: No cyanosis, clubbing or edema. Right index finger amputated 1 phalanx Result Diagram: 12/12/18 0604 12/12/18 0604 Results 24hrs Laboratory Tests Test 12/12/18 06:04 White Blood Count 12.5 H Red Blood Count 3.67 L Hemoglobin 9.2 L Hematocrit 30.2 L Mean Corpuscular Volume 82.3 Mean Corpuscular Hemoglobin 25.1 L Mean Corpuscular Hemoglobin Concent 30.5 L Red Cell Distribution Width 17.6 H Platelet Count 417 H Mean Platelet Volume 10.2 Immature Granulocytes % 1.400 H Neutrophils % 84.7 H Lymphocytes % 4.2 L Monocytes % 9.1 Eosinophils % 0.5 Basophils % 0.1 Nucleated Red Blood Cells % 1.7 H Immature Granulocytes # 0.170 H Neutrophils # 10.6 H Lymphocytes # 0.5 L Monocytes # 1.1 H Eosinophils # 0.1 Basophils # 0.0 Nucleated Red Blood Cells # 0.2 H Prothrombin Time 16.0 H Prothrombin Time Ratio 1.3 INR International Normalized Ratio 1.27 Activated Partial Thromboplast Time 80.9 *H Sodium Level 137 Potassium Level 4.0 Chloride Level 105 Carbon Dioxide Level 24 Anion Gap 8 Blood Urea Nitrogen 13 Creatinine 0.38 L Est Glomerular Filtrat Rate mL/min > 60 Glucose Level 85 Calcium Level 8.0 L Phosphorus Level 3.6 Magnesium Level 1.8 Exam/Review of Systems Exam Vitals Vital Signs Date Temp Pulse Resp B/P (MAP) Pulse Ox O2 O2 Flow FiO2 Time Delivery Rate 12/12/18 98.0 54 20 112/56 96 07:46 (74) 12/11/18 Room Air 07:27 Intake and Output 12/11/18 12/11/18 12/12/18 1515:00 23:00 07:00 IntakeIntake Total 50 ml 216 ml 1118 ml BalanceBalance 50 ml 216 ml 1118 ml Results Results 24hrs Laboratory Tests Test 12/12/18 06:04 White Blood Count 12.5 H Red Blood Count 3.67 L Hemoglobin 9.2 L Hematocrit 30.2 L Mean Corpuscular Volume 82.3 Mean Corpuscular Hemoglobin 25.1 L Mean Corpuscular Hemoglobin Concent 30.5 L Red Cell Distribution Width 17.6 H Platelet Count 417 H Mean Platelet Volume 10.2 Immature Granulocytes % 1.400 H Neutrophils % 84.7 H Lymphocytes % 4.2 L Monocytes % 9.1 Eosinophils % 0.5 Basophils % 0.1 Nucleated Red Blood Cells % 1.7 H Immature Granulocytes # 0.170 H Neutrophils # 10.6 H Lymphocytes # 0.5 L Monocytes # 1.1 H Eosinophils # 0.1 Basophils # 0.0 Nucleated Red Blood Cells # 0.2 H Prothrombin Time 16.0 H Prothrombin Time Ratio 1.3 INR International Normalized Ratio 1.27 Activated Partial Thromboplast Time 80.9 *H Sodium Level 137 Potassium Level 4.0 Chloride Level 105 Carbon Dioxide Level 24 Anion Gap 8 Blood Urea Nitrogen 13 Creatinine 0.38 L Est Glomerular Filtrat Rate mL/min > 60 Glucose Level 85 Calcium Level 8.0 L Phosphorus Level 3.6 Magnesium Level 1.8 Medications Medication Current Medications IV Flush (NS 3 ml) 3 ml PER PROTOCOL IV ; Start 11/29/18 at 07:00 Ondansetron HCl (Zofran Inj) 4 mg Q6H PRN IV NAUSEA/VOMITING Last administered on 12/08/18at 20:51; Admin Dose 4 MG; Start 11/29/18 at 07:00 Acetaminophen (Tylenol Tab) 650 mg Q6H PRN PO .PAIN 1-3 OR TEMP; Start 11/29/18 at 07:00 Acetaminophen/ Hydrocodone Bitart ([place] (5/325)) 1 tab Q6H PRN PO .MOD PAIN 4- 6 Last administered on 12/02/18 11:08; Admin Dose 1 TAB; Start 11/29/18 at 07:00 Docusate Sodium (Colace) 100 mg Q12H PRN PO .CONSTIPATION; Start 11/29/18 at 07:00 Magnesium Hydroxide (Milk Of Mag) 30 ml DAILY PRN PO .CONSTIPATION; Start 11/29/18 at 07:00 Lorazepam (Ativan) 0.5 mg Q6H PRN IV ANXIETY; Start 11/29/18 at 07:00 Albuterol/ Ipratropium (Duoneb) 3 ml Q4H RESP THERAPY PRN HHN SHORTNESS OF BREATH; Start 11/29/18 at 07:00 Hydralazine HCl (Apresoline) 10 mg Q6H PRN IV for sys bp > 180; Start 11/29/18 at 07:00 Nitroglycerin (Nitroglycerin (Sl Tab) 0.4 Mg) 1 tab Q5M PRN SL ANGINA Last a dministered on 11/30/18 10:24; Admin Dose 1 TAB; Start 11/29/18 at 07:00 Amlodipine Besylate (Norvasc) 5 mg BID PO Last administered on 12/11/18 21:14; Admin Dose 5 MG; Start 11/30/18 at 09:00 Azathioprine (Imuran) 100 mg DAILY PO Last administered on 12/11/18 08:29; Admin Dose 100 MG; Start 11/30/18 at 09:00 Cyclobenzaprine HCl (Flexeril) 10 mg TID PO Last administered on 12/11/18 21:14; Admin Dose 10 MG; Start 11/30/18 at 09:00 Nadolol (Corgard) 20 mg BID PO Last administered on 12/11/18 21:14; Admin Dose 20 MG; Start 11/30/18 at 09:00 Tramadol HCl (Ultram) 50 mg Q4 PRN PO PAIN Last administered on 12/03/18 03:13; Admin Dose 50 MG; Start 11/30/18 at 00:00 Calcium/Vitamin D (Oyster Shell/ Vit-D (500/200)) 1 tab DAILY PO Last administered on 12/11/18 08:30; Admin Dose 1 TAB; Start 11/30/18 at 09:00 Sucralfate (Carafate Susp) 1 gm QID PO Last administered on 12/11/18 21:13; Admin Dose 1 GM; Start 11/30/18 at 09:00 Metoclopramide HCl (Reglan) 10 mg Q6H PRN IV nausae Last administered on 12/06/18 02:23; Admin Dose 10 MG; Start 11/30/18 at 11:00 Colchicine (Colchicine) 0.6 mg BID PO Last administered on 12/11/18 21:14; Admin Dose 0.6 MG; Start 11/30/18 at 12:30 Hydromorphone HCl (Dilaudid) 1 mg Q4H PRN IV SEVERE PAIN LEVEL 7-10 Last administered on 12/12/18 05:47; Admin Dose 1 MG; Start 12/02/18 at 12:30 Amylase/Lipase/ Protease (Creon ([id number])) 2 cap WITH MEALS PO Last administered on 12/11/18 17:14; Admin Dose 2 CAP; Start 12/02/18 at 18:00 Lactobacillus Acidophilus/ Rhamnosus (Culturelle) 1 cap WITH MEALS PO Last administered on 12/11/18 17:14; Admin Dose 1 CAP; Start 12/05/18 at 18:00 Pantoprazole (Protonix Tab) 40 mg BID@06,18 PO Last administered on 12/12/18 05:47; Admin Dose 40 MG; Start 12/05/18 at 18:00 Meropenem/Sodium Chloride 50 ml @ 100 mls/hr Q8H IVPB Last administered on 12/12/18 01:42; Admin Dose 100 MLS/HR; Start 12/07/18 at 01:30 Heparin Sodium (Porcine) (Heparin (1000 Units/ml)) 7,200 unit PER PROTOCOL PRN IV aPTT<47; Start 12/07/18 at 13:00 Heparin Sodium (Porcine) (Heparin (1000 Units/ml)) 3,600 unit PER PROTOCOL PRN IV aPTT<47-57; Start 12/07/18 at 13:00 Heparin Sodium (Porcine) 250 ml @ 16 mls/hr PER PROTOCOL IV Last administered on 12/11/18at 20:58; Admin Dose 12 MLS/HR; Start 12/07/18 at 14:00 Methylprednisolone Sodium Succinate (Solu-Medrol) 10 mg BID IV Last administered on 12/11/18at 21:13; Admin Dose 10 MG; Start 12/07/18 at 21:00 Sodium Chloride 1,000 ml @ 80 mls/hr [id number] IV Last administered on 12/12/18at 05:47; Admin Dose 80 MLS/HR; Start 12/10/18 at 03:00 MONIQUE DE LA ROSA Dec 12, 2018 08:28
[2018-12-12] MEDS: NADOLOL 40 MG TAB PO SCH ×2 (08:47→21:00)
[2018-12-12] MEDS: METHYLPREDNISOLONE 40 MG INJ IV SCH ×2 (08:53→22:28)
[2018-12-12] MEDS: CREON (24K-76K-120K) 1 CAP PO SCH ×3 (08:54→17:47)
[2018-12-12] MEDS: COLCHICINE 0.6 MG TAB PO SCH ×2 (08:54→22:28)
[2018-12-12] MEDS: LACTOBACILLUS RHAMNOSUS CAP PO SCH ×3 (08:55→17:46)
[2018-12-12] MEDS: CALCIUM/VITAMIN D (500/200) TAB PO SCH (08:55)
[2018-12-12] MEDS: AZATHIOPRINE 50 MG TAB PO SCH (08:56)
[2018-12-12] MEDS: AMLODIPINE 10 MG TAB PO SCH ×2 (08:56→22:28)
[2018-12-12] MEDS: CYCLOBENZAPRINE 10 MG TAB PO SCH ×3 (08:56→22:29)
[2018-12-12] MEDS: SUCRALFATE (100 MG/ML) 10ML CUP PO SCH ×4 (08:57→22:28)
--- NOTE | 2018-12-12 11:17 | PN ---
Date/Time of Note Date/Time of Note DATE: 12/12/18 TIME: 11:15 Assessment/Plan VTE Prophylaxis Risk score (from [facility] [place]0 risk: 2 SCD applied (from [facility] [place]): No SCD contraindicated: other Pharmacological prophylaxis: heparin Lines/Catheters IV [facility] Type ([facility]): Peripheral IV Urinary Cath still in place: No Assessment/Plan Hospital Course Assessment and plan 1. Abdominal pain -CT scan of the abdomen showing acute pancreatitis (November 29, 2018) -Repeat CT scan of the abdomen on December 06, 2018 showed pneumatosis intestinalis of the right colon and hepatic flexure with suspicion of bowel ischemia with several foci of free air in the right lower quadrant worrisome for microperforation of the right colon. -Surgery following. - Continue abx treatment. -Plan for repeat CT scan of the abdomen with IV and oral contrast 2. 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 -Continue on anticoagulation 3. Acute pancreatitis -Continue on Creon GI consult is following 4.Lupus flare -[facility] following -On steroid medication 5. Chronic liver cirrhosis with history of esophageal varices -Remains on beta-tavon 6. 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 Hx Raynaud's Syndrome - hx right mid finger amputation - continue precuations 9. Obesity - Weight reduction was advised Disposition and plan. Follow-up on CT imaging of the abdomen. Analgesics as needed. Follow-up labs. Discussed POC with Dr. Noriega Result Diagram: 12/12/18 0604 12/12/18 0604 Results 24hrs Laboratory Tests Test 12/12/18 06:04 White Blood Count 12.5 H Red Blood Count 3.67 L Hemoglobin 9.2 L Hematocrit 30.2 L Mean Corpuscular Volume 82.3 Mean Corpuscular Hemoglobin 25.1 L Mean Corpuscular Hemoglobin Concent 30.5 L Red Cell Distribution Width 17.6 H Platelet Count 417 H Mean Platelet Volume 10.2 Immature Granulocytes % 1.400 H Neutrophils % 84.7 H Lymphocytes % 4.2 L Monocytes % 9.1 Eosinophils % 0.5 Basophils % 0.1 Nucleated Red Blood Cells % 1.7 H Immature Granulocytes # 0.170 H Neutrophils # 10.6 H Lymphocytes # 0.5 L Monocytes # 1.1 H Eosinophils # 0.1 Basophils # 0.0 Nucleated Red Blood Cells # 0.2 H Prothrombin Time 16.0 H Prothrombin Time Ratio 1.3 INR International Normalized Ratio 1.27 Activated Partial Thromboplast Time 80.9 *H Sodium Level 137 Potassium Level 4.0 Chloride Level 105 Carbon Dioxide Level 24 Anion Gap 8 Blood Urea Nitrogen 13 Creatinine 0.38 L Est Glomerular Filtrat Rate mL/min > 60 Glucose Level 85 Calcium Level 8.0 L Phosphorus Level 3.6 Magnesium Level 1.8 Subjective 24 Hr Interval Summary Free Text/Dictation Still reports having upper epigastric discomfort. Denies any nausea vomiting. Reports diarrhea watery Exam/Review of Systems Exam Vitals Vital Signs Date Temp Pulse Resp B/P (MAP) Pulse Ox O2 O2 Flow FiO2 Time Delivery Rate 12/12/18 98.0 54 20 112/56 96 07:46 (74) 12/11/18 Room Air 07:27 Intake and Output 12/11/18 12/11/18 12/12/18 1515:00 23:00 07:00 IntakeIntake Total 50 ml 216 ml 1118 ml BalanceBalance 50 ml 216 ml 1118 ml Constitutional: alert, oriented Psych: nl mood/affect Head: normocephalic Neck: supple, non-tender Respiratory: clear to auscultation Cardiovascular: regular rate and rhythm Gastrointestinal: tender Musculoskeletal: nl extremities to inspection Neurological: PRIMING MIXTURE CARRIER II-XII intact, nl mental status, nl speech Skin: nl turgor Results Results 24hrs Laboratory Tests Test 12/12/18 06:04 White Blood Count 12.5 H Red Blood Count 3.67 L Hemoglobin 9.2 L Hematocrit 30.2 L Mean Corpuscular Volume 82.3 Mean Corpuscular Hemoglobin 25.1 L Mean Corpuscular Hemoglobin Concent 30.5 L Red Cell Distribution Width 17.6 H Platelet Count 417 H Mean Platelet Volume 10.2 Immature Granulocytes % 1.400 H Neutrophils % 84.7 H Lymphocytes % 4.2 L Monocytes % 9.1 Eosinophils % 0.5 Basophils % 0.1 Nucleated Red Blood Cells % 1.7 H Immature Granulocytes # 0.170 H Neutrophils # 10.6 H Lymphocytes # 0.5 L Monocytes # 1.1 H Eosinophils # 0.1 Basophils # 0.0 Nucleated Red Blood Cells # 0.2 H Prothrombin Time 16.0 H Prothrombin Time Ratio 1.3 INR International Normalized Ratio 1.27 Activated Partial Thromboplast Time 80.9 *H Sodium Level 137 Potassium Level 4.0 Chloride Level 105 Carbon Dioxide Level 24 Anion Gap 8 Blood Urea Nitrogen 13 Creatinine 0.38 L Est Glomerular Filtrat Rate mL/min > 60 Glucose Level 85 Calcium Level 8.0 L Phosphorus Level 3.6 Magnesium Level 1.8 Medications Medication Current Medications IV Flush (NS 3 ml) 3 ml PER PROTOCOL IV ; Start 11/29/18 at 07:00 Ondansetron HCl (Zofran Inj) 4 mg Q6H PRN IV NAUSEA/VOMITING Last administered on 12/08/18 20:51; Admin Dose 4 MG; Start 11/29/18 at 07:00 Acetaminophen (Tylenol Tab) 650 mg Q6H PRN PO .PAIN 1-3 OR TEMP; Start 11/29/18 at 07:00 Acetaminophen/ Hydrocodone Bitart ([place] (5/325)) 1 tab Q6H PRN PO .MOD PAIN 4- 6 Last administered on 12/02/18at 11:08; Admin Dose 1 TAB; Start 11/29/18 at 07:00 Docusate Sodium (Colace) 100 mg Q12H PRN PO .CONSTIPATION; Start 11/29/18 at 07:00 Magnesium Hydroxide (Milk Of Mag) 30 ml DAILY PRN PO .CONSTIPATION; Start 11/29/18 at 07:00 Lorazepam (Ativan) 0.5 mg Q6H PRN IV ANXIETY; Start 11/29/18 at 07:00 Albuterol/ Ipratropium (Duoneb) 3 ml Q4H RESP THERAPY PRN HHN SHORTNESS OF BREATH; Start 11/29/18 at 07:00 Hydralazine HCl (Apresoline) 10 mg Q6H PRN IV for sys bp > 180; Start 11/29/18 at 07:00 Nitroglycerin (Nitroglycerin (Sl Tab) 0.4 Mg) 1 tab Q5M PRN SL ANGINA Last ad ministered on 11/30/18at 10:24; Admin Dose 1 TAB; Start 11/29/18 at 07:00 Amlodipine Besylate (Norvasc) 5 mg BID PO Last administered on 12/12/18at 08:56; Admin Dose 5 MG; Start 11/30/18 at 09:00 Azathioprine (Imuran) 100 mg DAILY PO Last administered on 12/12/18 08:56; Admin Dose 100 MG; Start 11/30/18 at 09:00 Cyclobenzaprine HCl (Flexeril) 10 mg TID PO Last administered on 12/12/18 08:56; Admin Dose 10 MG; Start 11/30/18 at 09:00 Nadolol (Corgard) 20 mg BID PO Last administered on 12/11/18 21:14; Admin Dose 20 MG; Start 11/30/18 at 09:00 Tramadol HCl (Ultram) 50 mg Q4 PRN PO PAIN Last administered on 12/03/18 03:13; Admin Dose 50 MG; Start 11/30/18 at 00:00 Calcium/Vitamin D (Oyster Shell/ Vit-D (500/200)) 1 tab DAILY PO Last administered on 12/12/18 08:55; Admin Dose 1 TAB; Start 11/30/18 at 09:00 Sucralfate (Carafate Susp) 1 gm QID PO Last administered on 12/12/18 08:57; Admin Dose 1 GM; Start 11/30/18 at 09:00 Metoclopramide HCl (Reglan) 10 mg Q6H PRN IV nausae Last administered on 12/06/18 02:23; Admin Dose 10 MG; Start 11/30/18 at 11:00 Colchicine (Colchicine) 0.6 mg BID PO Last administered on 12/12/18 08:54; Admin Dose 0.6 MG; Start 11/30/18 at 12:30 Hydromorphone HCl (Dilaudid) 1 mg Q4H PRN IV SEVERE PAIN LEVEL 7-10 Last administered on 12/12/18 05:47; Admin Dose 1 MG; Start 12/02/18 at 12:30 Amylase/Lipase/ Protease (Creon ([id number])) 2 cap WITH MEALS PO Last administered on 12/12/18 08:54; Admin Dose 2 CAP; Start 12/02/18 at 18:00 Lactobacillus Acidophilus/ Rhamnosus (Culturelle) 1 cap WITH MEALS PO Last administered on 12/12/18 08:55; Admin Dose 1 CAP; Start 12/05/18 at 18:00 Pantoprazole (Protonix Tab) 40 mg BID@06,18 PO Last administered on 12/12/18 05:47; Admin Dose 40 MG; Start 12/05/18 at 18:00 Meropenem/Sodium Chloride 50 ml @ 100 mls/hr Q8H IVPB Last administered on 12/12/18 08:57; Admin Dose 100 MLS/HR; Start 12/07/18 at 01:30 Heparin Sodium (Porcine) (Heparin (1000 Units/ml)) 7,200 unit PER PROTOCOL PRN IV aPTT<47; Start 12/07/18 at 13:00 Heparin Sodium (Porcine) (Heparin (1000 Units/ml)) 3,600 unit PER PROTOCOL PRN IV aPTT<47-57; Start 12/07/18 at 13:00 Heparin Sodium (Porcine) 250 ml @ 16 mls/hr PER PROTOCOL IV Last administered on 12/11/18at 20:58; Admin Dose 12 MLS/HR; Start 12/07/18 at 14:00 Methylprednisolone Sodium Succinate (Solu-Medrol) 10 mg BID IV Last administered on 12/12/18at 08:53; Admin Dose 10 MG; Start 12/07/18 at 21:00 Sodium Chloride 1,000 ml @ 80 mls/hr [id number] IV Last administered on 12/12/18 05:47; Admin Dose 80 MLS/HR; Start 12/10/18 at 03:00 CHILO LEE NP Dec 12, 2018 11:17
[2018-12-12] MEDS ORDERED: IOHEXOL 14.3 MG(I)/ML (ADULT) BTL PO ONE (11:30)
[2018-12-12] MEDS: ONDANSETRON 4 MG INJ IV PRN ×2 (11:57→22:38)
--- NOTE | 2018-12-12 12:09 | PN ---
Date/Time of Note Date/Time of Note DATE: 12/12/18 TIME: 12:07 Assessment/Plan Lines/Catheters IV Catheter Type (from [facility]): Peripheral IV Henao in Place (from [facility]): No Assessment/Plan Chief Complaint/Hosp Course 1. CT findings of pneumatosis intestinalis of right colon and hepatic flexure, concern for ischemia and microperforation of right colon; continues to be hemodynamically stable; abdominal pain improving; labs improving -continues abx per ID -judicious fluids -n.p.o. for now -close monitoring -repeat ct with iv/oral contrast today -No emergent surgical intervention at this point however will need close monitoring> if unimproved or worsens may require surgical intervention 2. Portal venous thrombosis, thrombosis of superior mesenteric vein; vascular surgery consult noted -Anticoagulation per medical team 3. Peripancreatic fluid with concern for acute pancreatitis; amylase and lipase within normal limits -fluid mgt 4. Liver cirrhosis with generalized anasarca -Hepatic optimization -Fluid management 5. Pleural effusion, pericardial effusion -Fluid management -Per cards/pulm 6. SLE c acute flare: steroids and colchicine -Per rheumatology 7. Obesity BMI: 34 -diet and exercise optimization -encourage weight loss 8. Leukocytosis:improving -Agree with antibiotics 9. Hypochromic anemia: -Monitor and transfuse as needed 10. Thrombocytosis: improving -dvt prophylaxis Thank you, Subjective 24 Hr Interval Summary Vomiting. Min left side abdominal pain. No fevers, chills, sob, congested cough, cp, palpitations, crouch, dizziness, dysuria. Bowel function with diarrhea. WBC improving slowly. Exam/Review of Systems Vital Signs Vitals Vital Signs Date Temp Pulse Resp B/P (MAP) Pulse Ox O2 O2 Flow FiO2 Time Delivery Rate 12/12/18 98.0 54 20 112/56 96 07:46 (74) 12/11/18 Room Air 07:27 Intake and Output 12/11/18 12/11/18 12/12/18 1515:00 23:00 07:00 IntakeIntake Total 50 ml 216 ml 1118 ml BalanceBalance 50 ml 216 ml 1118 ml Exam Free Text/Dictation Constitutional: alert, oriented Psych: nl mood/affect; No anxiety Head: normocephalic, atraumatic Eyes: nl conjunctiva, EOMI, nl lids, nl sclera ENMT: nl external ears & nose, nl lips & teeth, mucosa pink and moist Neck: supple, non-tender; No jvd Respiratory: normal air movement; No congested cough Cardiovascular: regular rate and rhythm, nl pulses; No edema Gastrointestinal: soft, min tender Left side Genitourinary - Female: nl external genitalia Musculoskeletal: nl extremities to inspection, nl gait and stance Extremities: normal pulses Neurological: nl mental status, nl speech, nl strength Skin: No rash or lesions Lymph: No nl lymph nodes Results Result Diagram: 12/12/18 0604 12/12/18 0604 MODE BRITO MD Dec 12, 2018 12:09
--- NOTE | 2018-12-12 13:43 | CONS ---
Consult Date/Type/Reason Admit Date/Time Nov 29, 2018 at 06:15 Initial Consult Date 12/01/18 Type of Consultation: Rheumatology Date/Time of Note DATE: 12/12/18 TIME: 13:41 Subjective Continues with abd pain and now having vomiting and watery diarrhea Objective Vitals Vital Signs Date Temp Pulse Resp B/P (MAP) Pulse Ox O2 O2 Flow FiO2 Time Delivery Rate 12/12/18 98.0 54 20 112/56 96 07:46 (74) 12/11/18 Room Air 07:27 Intake and Output 12/11/18 12/11/18 12/12/18 1515:00 23:00 07:00 IntakeIntake Total 50 ml 216 ml 1118 ml BalanceBalance 50 ml 216 ml 1118 ml Exam ENERAL: Alert and oriented in no acute distress, SKIN: No rashes or new lesions. HEENT: No acute oral or ocular lesions. NECK: Supple. No lymphadenopathy. CARDIOVASCULAR: Regular rate and rhythm. LUNGS: Clear to auscultation bilaterally. No wheezing or rhonchi. ABDOMEN: Soft, mild epigastric tenderness. No rebound tenderness. Bowel sounds are present. EXTREMITIES: No Edema. Mild cyanosis fingers. MUSCULOSKELETAL: No synovitis Results/Medications Result Diagram: 12/12/18 0604 12/12/18 0604 Results 24 hrs Laboratory Tests Test 12/12/18 06:04 White Blood Count 12.5 H Red Blood Count 3.67 L Hemoglobin 9.2 L Hematocrit 30.2 L Mean Corpuscular Volume 82.3 Mean Corpuscular Hemoglobin 25.1 L Mean Corpuscular Hemoglobin Concent 30.5 L Red Cell Distribution Width 17.6 H Platelet Count 417 H Mean Platelet Volume 10.2 Immature Granulocytes % 1.400 H Neutrophils % 84.7 H Lymphocytes % 4.2 L Monocytes % 9.1 Eosinophils % 0.5 Basophils % 0.1 Nucleated Red Blood Cells % 1.7 H Immature Granulocytes # 0.170 H Neutrophils # 10.6 H Lymphocytes # 0.5 L Monocytes # 1.1 H Eosinophils # 0.1 Basophils # 0.0 Nucleated Red Blood Cells # 0.2 H Prothrombin Time 16.0 H Prothrombin Time Ratio 1.3 INR International Normalized Ratio 1.27 Activated Partial Thromboplast Time 80.9 *H Sodium Level 137 Potassium Level 4.0 Chloride Level 105 Carbon Dioxide Level 24 Anion Gap 8 Blood Urea Nitrogen 13 Creatinine 0.38 L Est Glomerular Filtrat Rate mL/min > 60 Glucose Level 85 Calcium Level 8.0 L Phosphorus Level 3.6 Magnesium Level 1.8 Home Meds Active Scripts Cyclobenzaprine Hcl* (Cyclobenzaprine Hcl*) 10 Mg Tablet, 10 MG PO TID, #15 TAB Prov:MICKY CHAN MD 11/26/18 Tramadol HCl (Tramadol HCl) 50 Mg Tablet, 50 MG PO Q4 PRN for PAIN, #20 TAB Prov:MICKY CHAN MD 11/26/18 Ondansetron Hcl* (Zofran*) 8 Mg Tablet, 8 MG PO Q6H PRN for NAUSEA AND OR VOMITING, #20 TAB Prov:JENNY RAWLS MD 11/20/18 Levofloxacin* (Levaquin*) 750 Mg Tablet, 750 MG PO DAILY for 7 Days, TAB Prov:JENNY RAWLS MD 11/20/18 Sucralfate* (Carafate*) 1 Gm/10 Ml Susp, 1 GM PO QID for 30 Days, #1 EA 2 Refills Prov:LIUDMILA DUMONT MD 11/17/18 Metoclopramide Hcl* (Metoclopramide Hcl*) 10 Mg Tablet, 10 MG PO QID for 10 Days, #40 TAB Prov:LIUDMILA DUMONT MD 11/17/18 Acetaminophen* (Tylenol*) 325 Mg Tablet, 650 MG PO Q6H PRN for .PAIN 1-3 OR TEMP for 1 Day, TAB Prov:LIUDMILA DUMONT MD 11/17/18 Nadolol (Corgard) 40 Mg Tablet, 20 MG PO BID for 15 Days, #30 TAB Prov:LIUDMILA DUMONT MD 11/17/18 Pantoprazole* (Pantoprazole*) 40 Mg Tablet.dr, 40 MG PO BID@06,18 for 30 Days, #60 TAB 1 Refill Prov:LIUDMILA DUMONT MD 11/17/18 Reported Medications Amlodipine Besylate* (Amlodipine Besylate*) 10 Mg Tablet, 5 MG PO BID, #30 TAB 11/29/18 Calcium Carbonate/Vitamin D3 (Calcium 500 mg Chewable Tablet) 1 Each Tab.chew, 1 EACH PO DAILY, TAB.CHEW 11/14/18 Prednisone* (Prednisone*) 5 Mg Tab, 5 MG PO DAILY, TAB 11/14/18 Azathioprine* (Imuran*) 50 Mg Tab, 100 MG PO DAILY, TAB 11/14/18 Ergocalciferol (Vitamin D2) (VITAMIN D2) 50,000 Unit Capsule, 70893 UNIT PO QMONDAY 09/22/18 Medications Current Medications IV Flush (NS 3 ml) 3 ml PER PROTOCOL IV ; Start 11/29/18 at 07:00 Ondansetron HCl (Zofran Inj) 4 mg Q6H PRN IV NAUSEA/VOMITING Last administered on 12/12/18at 11:57; Admin Dose 4 MG; Start 11/29/18 at 07:00 Acetaminophen (Tylenol Tab) 650 mg Q6H PRN PO .PAIN 1-3 OR TEMP; Start 11/29/18 at 07:00 Acetaminophen/ Hydrocodone Bitart ([place] (5/325)) 1 tab Q6H PRN PO .MOD PAIN 4- 6 Last administered on 12/02/18at 11:08; Admin Dose 1 TAB; Start 11/29/18 at 07:00 Docusate Sodium (Colace) 100 mg Q12H PRN PO .CONSTIPATION; Start 11/29/18 at 07:00 Magnesium Hydroxide (Milk Of Mag) 30 ml DAILY PRN PO .CONSTIPATION; Start 11/29/18 at 07:00 Lorazepam (Ativan) 0.5 mg Q6H PRN IV ANXIETY; Start 11/29/18 at 07:00 Albuterol/ Ipratropium (Duoneb) 3 ml Q4H RESP THERAPY PRN HHN SHORTNESS OF BREATH; Start 11/29/18 at 07:00 Hydralazine HCl (Apresoline) 10 mg Q6H PRN IV for sys bp > 180; Start 11/29/18 at 07:00 Nitroglycerin (Nitroglycerin (Sl Tab) 0.4 Mg) 1 tab Q5M PRN SL ANGINA Last administered on 11/30/18at 10:24; Admin Dose 1 TAB; Start 11/29/18 at 07:00 Amlodipine Besylate (Norvasc) 5 mg BID PO Last administered on 12/12/18at 08:56; Admin Dose 5 MG; Start 11/30/18 at 09:00 Azathioprine (Imuran) 100 mg DAILY PO Last administered on 12/12/18 08:56; Admin Dose 100 MG; Start 11/30/18 at 09:00 Cyclobenzaprine HCl (Flexeril) 10 mg TID PO Last administered on 12/12/18 12:59; Admin Dose 10 MG; Start 11/30/18 at 09:00 Nadolol (Corgard) 20 mg BID PO Last administered on 12/11/18 21:14; Admin Dose 20 MG; Start 11/30/18 at 09:00 Tramadol HCl (Ultram) 50 mg Q4 PRN PO PAIN Last administered on 12/03/18 03:13; Admin Dose 50 MG; Start 11/30/18 at 00:00 Calcium/Vitamin D (Oyster Shell/ Vit-D (500/200)) 1 tab DAILY PO Last administered on 12/12/18 08:55; Admin Dose 1 TAB; Start 11/30/18 at 09:00 Sucralfate (Carafate Susp) 1 gm QID PO Last administered on 12/12/18 12:59; Admin Dose 1 GM; Start 11/30/18 at 09:00 Metoclopramide HCl (Reglan) 10 mg Q6H PRN IV nausae Last administered on 12/06/18 02:23; Admin Dose 10 MG; Start 11/30/18 at 11:00 Colchicine (Colchicine) 0.6 mg BID PO Last administered on 12/12/18 08:54; Admin Dose 0.6 MG; Start 11/30/18 at 12:30 Hydromorphone HCl (Dilaudid) 1 mg Q4H PRN IV SEVERE PAIN LEVEL 7-10 Last administered on 12/12/18 11:57; Admin Dose 1 MG; Start 12/02/18 at 12:30 Amylase/Lipase/ Protease (Creon (48r-72y-777m)) 2 cap WITH MEALS PO Last administered on 12/12/18 12:58; Admin Dose 2 CAP; Start 12/02/18 at 18:00 Lactobacillus Acidophilus/ Rhamnosus (Culturelle) 1 cap WITH MEALS PO Last administered on 12/12/18 13:01; Admin Dose 1 CAP; Start 12/05/18 at 18:00 Pantoprazole (Protonix Tab) 40 mg BID@06,18 PO Last administered on 12/12/18at 05:47; Admin Dose 40 MG; Start 12/05/18 at 18:00 Meropenem/Sodium Chloride 50 ml @ 100 mls/hr Q8H IVPB Last administered on 12/12/18at 08:57; Admin Dose 100 MLS/HR; Start 12/07/18 at 01:30 Heparin Sodium (Porcine) (Heparin (1000 Units/ml)) 7,200 unit PER PROTOCOL PRN IV aPTT<47; Start 12/07/18 at 13:00 Heparin Sodium (Porcine) (Heparin (1000 Units/ml)) 3,600 unit PER PROTOCOL PRN IV aPTT<47-57; Start 12/07/18 at 13:00 Heparin Sodium (Porcine) 250 ml @ 16 mls/hr PER PROTOCOL IV Last administered on 12/11/18at 20:58; Admin Dose 12 MLS/HR; Start 12/07/18 at 14:00 Methylprednisolone Sodium Succinate (Solu-Medrol) 10 mg BID IV Last administered on 12/12/18at 08:53; Admin Dose 10 MG; Start 12/07/18 at 21:00 Sodium Chloride 1,000 ml @ 80 mls/hr [id number] IV Last administered on 12/12/18at 05:47; Admin Dose 80 MLS/HR; Start 12/10/18 at 03:00 Assessment/Plan Hospital Course (Demo Recall) Assessment/ Plan: 1. Probable pneumonia Improving. 2.. Lupus flare possibly. Agree with decreasing steroids as clinically improving. Decrease Solumedrol to 10 mg BID 3.. 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 Repeat an echo per cardiology. Continue the colchicine 0.6 b.i.d. 4.. Pancreatitis. The patient seems to be improving. 5.. Pleural effusion. Appears to be more consistent with infection rather than Lupus flare, per Pulmonary. 6. Cirrhosis with esophageal varices. LFTs are within normal limits. We will just continue to follow. 7. Raynaud's syndrome, status post finger amputation. Raynaud's precautions. 8. 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 The pneumatosis this is an acute mesenteric ischemia, it is a venous occlusion, not arterial. It is not surgical. It needs long-term anticoagulation. She may need partial bowel resection. The thrombosis is not uncommonly seen after splenectomy and also with cirrhosis and she will need lifelong anticoagulation once she has recovered from this episode. -abx: Id is following -judicious fluids -N.p.o. -Close monitoring - to have repeat CT abd with po/iv contrast today LILY AGRAWAL MD Dec 12, 2018 13:43
[2018-12-12 15:46] VITALS: BP 120/69; PULSE 60; RESP 18
[2018-12-12] MEDS: HEPARIN 25000 UNITS/250 ML 250 ML IV SCH (17:46)
[2018-12-12 19:55] VITALS: BP 127/70; PULSE 55; RESP 16
[2018-12-12] MEDS ORDERED: IOHEXOL 300MG/ML 150 ML BTL ONE (20:03)
[2018-12-12] MEDS ORDERED: SOD CHLORIDE 0.9% 100 ML ONE (20:03)
[2018-12-13] MEDS: MEROPENEM 1 GM/50ML(PMX) 50 ML IVPB SCH ×3 (01:44→16:46)
[2018-12-13 02:01] VITALS: BP 119/64; PULSE 59; RESP 16
[2018-12-13] MEDS: PANTOPRAZOLE (EC) 40 MG TAB PO SCH ×2 (05:25→16:45)
[2018-12-13] MEDS: ONDANSETRON 4 MG INJ IV PRN (06:18)
[2018-12-13] MEDS: HYDROmorphONE 1 MG/ML SYG IV PRN ×3 (06:18→22:13)
[2018-12-13 07:56] VITALS: BP 112/72; PULSE 61; RESP 20
[2018-12-13] MEDS: AMLODIPINE 10 MG TAB PO SCH ×2 (09:32→22:14)
[2018-12-13] MEDS: LACTOBACILLUS RHAMNOSUS CAP PO SCH ×3 (09:33→16:45)
[2018-12-13] MEDS: NADOLOL 40 MG TAB PO SCH ×2 (09:33→21:00)
[2018-12-13] MEDS: CREON (24K-76K-120K) 1 CAP PO SCH ×3 (09:33→16:45)
[2018-12-13] MEDS: AZATHIOPRINE 50 MG TAB PO SCH (09:40)
[2018-12-13] MEDS: CALCIUM/VITAMIN D (500/200) TAB PO SCH (09:45)
[2018-12-13] MEDS: COLCHICINE 0.6 MG TAB PO SCH ×2 (09:46→22:13)
[2018-12-13] MEDS: CYCLOBENZAPRINE 10 MG TAB PO SCH ×3 (09:46→22:14)
[2018-12-13] MEDS: METHYLPREDNISOLONE 40 MG INJ IV SCH ×2 (09:47→22:11)
[2018-12-13] MEDS: SUCRALFATE (100 MG/ML) 10ML CUP PO SCH ×4 (09:51→22:11)
--- NOTE | 2018-12-13 10:13 | PN ---
Date/Time of Note Date/Time of Note DATE: 12/13/18 TIME: 10:08 Assessment/Plan VTE Prophylaxis Risk score (from Ns)>0 risk: 2 [place] [facility] No SCD contraindicated: other Pharmacological prophylaxis: heparin Lines/Catheters IV Catheter Type (from [facility]): Peripheral IV Urinary Cath still in place: No Assessment/Plan Hospital Course Assessment and plan 1. Abdominal pain -CT scan of the abdomen showing acute pancreatitis (November 29, 2018) -Repeat CT scan of the abdomen on December 06, 2018 showed pneumatosis intestinalis of the right colon and hepatic flexure with suspicion of bowel ischemia with several foci of free air in the right lower quadrant worrisome for microperforation of the right colon. - Continue abx treatment. -repeat CT scan of the abdomen with IV and oral contrast 12/12/18: continued interval progression of colonic pneumatosis involving the proximal colon again suggestive for gangrenous bowel. There is generalized small and large bowel wall thickening with more pronounced involvement of the colon that could represent third spacing of fluid versus colitis - f/u surgeon recommendations 2. 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 -Continue on anticoagulation 3. Acute pancreatitis -Continue on Creon GI consult is following 4.Lupus flare -Clerk Carrier following -On steroid medication 5. Chronic liver cirrhosis with history of esophageal varices -Remains on beta-tavon 6. 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 Hx Raynaud's Syndrome - hx right mid finger amputation - continue precuations 9. Obesity - Weight reduction was advised Disposition and plan. continue abx. check AM labs. f/u surgeon if need for surgical intervention Discussed POC with Dr. Noriega Result Diagram: 12/12/18 0604 12/12/18 0604 Results 24hrs Laboratory Tests Test 12/13/18 06:04 12/13/18 08:02 Prothrombin Time 15.8 H Prothrombin Time Ratio 1.2 INR International Normalized Ratio 1.25 Activated Partial Thromboplast Time 24.7 63.9 H Subjective 24 Hr Interval Summary Free Text/Dictation still reports having abd pain, but less today Exam/Review of Systems Exam Vitals Vital Signs Date Temp Pulse Resp B/P (MAP) Pulse Ox O2 O2 Flow FiO2 Time Delivery Rate 12/13/18 98.3 61 20 112/72 98 07:56 (85) 12/12/18 Room Air 15:46 Intake and Output 12/12/18 12/12/18 12/13/18 1515:00 23:00 07:00 IntakeIntake Total 50 ml 1192 ml 194 ml BalanceBalance 50 ml 1192 ml 194 ml Exam Constitutional: alert, oriented Psych: nl mood/affect Head: normocephalic Neck: supple, non-tender Respiratory: clear to auscultation Cardiovascular: regular rate and rhythm Gastrointestinal: tender Musculoskeletal: nl extremities to inspection 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, nl mental status, nl speech Skin: nl turgor Results Results 24hrs Laboratory Tests Test 12/13/18 06:04 12/13/18 08:02 Prothrombin Time 15.8 H Prothrombin Time Ratio 1.2 INR International Normalized Ratio 1.25 Activated Partial Thromboplast Time 24.7 63.9 H Medications Medication Current Medications IV Flush (NS 3 ml) 3 ml PER PROTOCOL IV ; Start 11/29/18 at 07:00 Ondansetron HCl (Zofran Inj) 4 mg Q6H PRN IV NAUSEA/VOMITING Last administered on 12/13/18at 06:18; Admin Dose 4 MG; Start 11/29/18 at 07:00 Acetaminophen (Tylenol Tab) 650 mg Q6H PRN PO .PAIN 1-3 OR TEMP; Start 11/29/18 at 07:00 Acetaminophen/ Hydrocodone Bitart (Arnold (5/325)) 1 tab Q6H PRN PO .MOD PAIN 4- 6 Last administered on 12/02/18at 11:08; Admin Dose 1 TAB; Start 11/29/18 at 07:00 Docusate Sodium (Colace) 100 mg Q12H PRN PO .CONSTIPATION; Start 11/29/18 at 07:00 Magnesium Hydroxide (Milk Of Mag) 30 ml DAILY PRN PO .CONSTIPATION; Start 11/29/18 at 07:00 Lorazepam (Ativan) 0.5 mg Q6H PRN IV ANXIETY; Start 11/29/18 at 07:00 Albuterol/ Ipratropium (Duoneb) 3 ml Q4H RESP THERAPY PRN HHN SHORTNESS OF BREATH; Start 11/29/18 at 07:00 Hydralazine HCl (Apresoline) 10 mg Q6H PRN IV for sys bp > 180; Start 11/29/18 at 07:00 Nitroglycerin (Nitroglycerin (Sl Tab) 0.4 Mg) 1 tab Q5M PRN SL ANGINA Last administered on 11/30/18 10:24; Admin Dose 1 TAB; Start 11/29/18 at 07:00 Amlodipine Besylate (Norvasc) 5 mg BID PO Last administered on 12/13/18 09:32; Admin Dose 5 MG; Start 11/30/18 at 09:00 Azathioprine (Imuran) 100 mg DAILY PO Last administered on 12/13/18 09:40; Admin Dose 100 MG; Start 11/30/18 at 09:00 Cyclobenzaprine HCl (Flexeril) 10 mg TID PO Last administered on 12/13/18 09:46; Admin Dose 10 MG; Start 11/30/18 at 09:00 Nadolol (Corgard) 20 mg BID PO Last administered on 12/13/18 09:33; Admin Dose 20 MG; Start 11/30/18 at 09:00 Tramadol HCl (Ultram) 50 mg Q4 PRN PO PAIN Last administered on 12/03/18 03:13; Admin Dose 50 MG; Start 11/30/18 at 00:00 Calcium/Vitamin D (Oyster Shell/ Vit-D (500/200)) 1 tab DAILY PO Last administered on 12/13/18 09:45; Admin Dose 1 TAB; Start 11/30/18 at 09:00 Sucralfate (Carafate Susp) 1 gm QID PO Last administered on 12/13/18 09:51; Admin Dose 1 GM; Start 11/30/18 at 09:00 Metoclopramide HCl (Reglan) 10 mg Q6H PRN IV nausae Last administered on 12/06 02:23; Admin Dose 10 MG; Start 11/30/18 at 11:00 Colchicine (Colchicine) 0.6 mg BID PO Last administered on 12/13/18 09:46; Admin Dose 0.6 MG; Start 11/30/18 at 12:30 Hydromorphone HCl (Dilaudid) 1 mg Q4H PRN IV SEVERE PAIN LEVEL 7-10 Last administered on 12/13/18 06:18; Admin Dose 1 MG; Start 12/02/18 at 12:30 Amylase/Lipase/ Protease (Creon ([id number])) 2 cap WITH MEALS PO Last admin istered on 12/13/18 09:33; Admin Dose 2 CAP; Start 12/02/18 at 18:00 Lactobacillus Acidophilus/ Rhamnosus (Culturelle) 1 cap WITH MEALS PO Last administered on 12/13/18 09:33; Admin Dose 1 CAP; Start 12/05/18 at 18:00 Pantoprazole (Protonix Tab) 40 mg BID@06,18 PO Last administered on 12/13/18 05:25; Admin Dose 40 MG; Start 12/05/18 at 18:00 Meropenem/Sodium Chloride 50 ml @ 100 mls/hr Q8H IVPB Last administered on 12/13/18 09:49; Admin Dose 100 MLS/HR; Start 12/07/18 at 01:30 Heparin Sodium (Porcine) (Heparin (1000 Units/ml)) 7,200 unit PER PROTOCOL PRN IV aPTT<47; Start 12/07/18 at 13:00 Heparin Sodium (Porcine) (Heparin (1000 Units/ml)) 3,600 unit PER PROTOCOL PRN IV aPTT<47-57; Start 12/07/18 at 13:00 Heparin Sodium (Porcine) 250 ml @ 16 mls/hr PER PROTOCOL IV Last administered on 12/12/18 17:46; Admin Dose 12 MLS/HR; Start 12/07/18 at 14:00 Methylprednisolone Sodium Succinate (Solu-Medrol) 10 mg BID IV Last administered on 12/13/18 09:47; Admin Dose 10 MG; Start 12/07/18 at 21:00 CHILO LEE NP Dec 13, 2018 10:13
--- NOTE | 2018-12-13 12:43 | PN ---
Date/Time of Note Date/Time of Note DATE: 12/13/18 TIME: 12:37 Assessment/Plan VTE Prophylaxis Risk score (from Nsg)>0 risk: 1 SCD applied (from [facility]sg): No SCD contraindicated: low risk/ambulating Pharmacological prophylaxis: heparin Lines/Catheters IV Catheter Type (from Nrs): Peripheral IV Urinary Cath still in place: No Assessment/Plan Hospital Course Assessment/Plan Assessment: Epigastric pain-with radiation to left upper quadrant and left flank/back- -CT is concerning for pancreatitis, however lipase and amylase WNL -Repeat abdominal CT on 12/06/2018 showed pneumatosis intestinalis of the right colon and hepatic flexure, raising concerning for bowel ischemia with a several foci of free air in the right lower quadrant worrisome for microper foration of the right colon. -Repeat Ct scan 12/13/18-There is continued interval progression of colonic pneumatosis involving the proximal colon again suggestive for gangrenous bowel. There is generalized small and large bowel wall thickening with more pronounced involvement of the colon that could represent third spacing of fluid versus colitis. There is pronounced diffuse intrahepatic portal vein thrombus along with thrombosis of the entirety of the main portal vein, portal confluence, splenic vein and the majority of the superior mesenteric vein. Residual patent mesenteric veins are seen along with cavernous transformation of the portal vein and the presence of portal venous collateral vessels. 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 -Pt consulted by vascular sx -Currently on anti-coagulation Left pleural effusion Diarrhea -Stool Cx- coliform Pericardial effusion, moderate -Echocardiogram - Small to borderline moderate circumferential pericardial effusion without evidence of tamponade. EF 55% Normocytic Anemia Recent History Hematemesis EGD 11/15/2018 Extensive ulceration of the distal esophagus, rule out opportunistic infection, biopsies obtained. Grade II/IV esophageal varices. No stigmata of recent bleeding. No therapeutic intervention required Mild gastritis versus portal gastropathy, Otherwise normal EGD Stomach biopsy negative for H. pylori infection, no evidence of intestinal metaplasia, dysplasia, or malignancy Esophageal ulcer biopsy mucosa showing moderate chronic inflammation no squamous mucosa is present. No goblet cells are identified, no H. pylori is identified, no evidence of dysplasia or malignancy SLE/Rheumatoid arthritis/Raynaud's syndrome -On prednisone. History of Splenectomy Depression HTN Hx of EGD/colonoscopy 09/26/18 Colonoscopy 09/26/2018colitis more significant in the area of the rectum moderate size internal hemorrhoidsbiopsy negative for evidence of colitis EGD grade II/IV esophageal varices, severe gastritisbiopsies negative for H. pylori Liver cirrhosis- with hx of EV -Hepatitis serology negative -ASMA,AMA- negative Thrombocytosis- improving Status post finger amputation secondary to Raynaud's syndrome Leukocytosis - trending down Plan: NPO- Consider TPN to meet nutritional/caloric needs F/u surgical recommendations Continue supportive care Patient seen in collaboration with Subjective: Course reviewed with nursing staff Patient interviewed and examined All labs, imaging and other results reviewed Reviewed Ct results. Will defer to surgical team for possible surgical intervention. Currently patient states upper abdominal pain is manageable, No c/o n/v. Plan for PICC in near future for TPN. Exam PHYSICAL EXAMINATION: GENERAL: Chronically ill appearing young woman, alert & oriented x 3, edema/swelling from chronic steroid use- improved SKIN: No lesions. HEAD: Normocephalic, atraumatic, no tenderness. EYES: Pupils equal reactive to light, no discharge. EARS/NOSE AND THROAT: Ears normal, nose normal. NECK: Supple, no masses, thyroid normal. CHEST: Inspection within normal limits. CARDIOVASCULAR: Heart: Regular rate and rhythm RESPIRATORY: Lungs clear to auscultation. GASTROINTESTINAL AND LIVER: Abdomen: obese, soft, epigastric tenderness, non- distended, no hernias, no masses, normoactive bowel sounds. Rectal: Deferred. EXTREMITIES: No cyanosis, clubbing or edema. Right index finger amputated 1 phalanx Result Diagram: 12/12/18 0604 12/12/18 0604 Results 24hrs Laboratory Tests Test 12/13/18 06:04 12/13/18 08:02 Prothrombin Time 15.8 H Prothrombin Time Ratio 1.2 INR International Normalized Ratio 1.25 Activated Partial Thromboplast Time 24.7 63.9 H Exam/Review of Systems Exam Vitals Vital Signs Date Temp Pulse Resp B/P (MAP) Pulse Ox O2 O2 Flow FiO2 Time Delivery Rate 12/13/18 98.3 61 20 112/72 98 07:56 (85) 12/12/18 Room Air 15:46 Intake and Output 12/12/18 12/12/18 12/13/18 1515:00 23:00 07:00 IntakeIntake Total 50 ml 1192 ml 194 ml BalanceBalance 50 ml 1192 ml 194 ml Results Results 24hrs Laboratory Tests Test 12/13/18 06:04 12/13/18 08:02 Prothrombin Time 15.8 H Prothrombin Time Ratio 1.2 INR International Normalized Ratio 1.25 Activated Partial Thromboplast Time 24.7 63.9 H Medications Medication Current Medications IV Flush (NS 3 ml) 3 ml PER PROTOCOL IV ; Start 11/29/18 at 07:00 Ondansetron HCl (Zofran Inj) 4 mg Q6H PRN IV NAUSEA/VOMITING Last administered on 12/13/18at 06:18; Admin Dose 4 MG; Start 11/29/18 at 07:00 Acetaminophen (Tylenol Tab) 650 mg Q6H PRN PO .PAIN 1-3 OR TEMP; Start 11/29/18 at 07:00 Acetaminophen/ Hydrocodone Bitart (Baldwin (5/325)) 1 tab Q6H PRN PO .MOD PAIN 4- 6 Last administered on 12/02/18at 11:08; Admin Dose 1 TAB; Start 11/29/18 at 07:00 Docusate Sodium (Colace) 100 mg Q12H PRN PO .CONSTIPATION; Start 11/29/18 at 07:00 Magnesium Hydroxide (Milk Of Mag) 30 ml DAILY PRN PO .CONSTIPATION; Start 11/29/18 at 07:00 Lorazepam (Ativan) 0.5 mg Q6H PRN IV ANXIETY; Start 11/29/18 at 07:00 Albuterol/ Ipratropium (Duoneb) 3 ml Q4H RESP THERAPY PRN HHN SHORTNESS OF BREATH; Start 11/29/18 at 07:00 Hydralazine HCl (Apresoline) 10 mg Q6H PRN IV for sys bp > 180; Start 11/29/18 at 07:00 Nitroglycerin (Nitroglycerin (Sl Tab) 0.4 Mg) 1 tab Q5M PRN SL ANGINA Last administered on 11/30/18at 10:24; Admin Dose 1 TAB; Start 11/29/18 at 07:00 Amlodipine Besylate (Norvasc) 5 mg BID PO Last administered on 12/13/18at 09:32; Admin Dose 5 MG; Start 11/30/18 at 09:00 Azathioprine (Imuran) 100 mg DAILY PO Last administered on 12/13/18 09:40; Admin Dose 100 MG; Start 11/30/18 at 09:00 Cyclobenzaprine HCl (Flexeril) 10 mg TID PO Last administered on 12/13/18 09:46; Admin Dose 10 MG; Start 11/30/18 at 09:00 Nadolol (Corgard) 20 mg BID PO Last administered on 12/13/18 09:33; Admin Dose 20 MG; Start 11/30/18 at 09:00 Tramadol HCl (Ultram) 50 mg Q4 PRN PO PAIN Last administered on 12/03/18 03:13; Admin Dose 50 MG; Start 11/30/18 at 00:00 Calcium/Vitamin D (Oyster Shell/ Vit-D (500/200)) 1 tab DAILY PO Last administered on 12/13/18 09:45; Admin Dose 1 TAB; Start 11/30/18 at 09:00 Sucralfate (Carafate Susp) 1 gm QID PO Last administered on 12/13/18 09:51; Admin Dose 1 GM; Start 11/30/18 at 09:00 Metoclopramide HCl (Reglan) 10 mg Q6H PRN IV nausae Last administered on 12/06/18 02:23; Admin Dose 10 MG; Start 11/30/18 at 11:00 Colchicine (Colchicine) 0.6 mg BID PO Last administered on 12/13/18 09:46; Admin Dose 0.6 MG; Start 11/30/18 at 12:30 Hydromorphone HCl (Dilaudid) 1 mg Q4H PRN IV SEVERE PAIN LEVEL 7-10 Last administered on 12/13/18 06:18; Admin Dose 1 MG; Start 12/02/18 at 12:30 Amylase/Lipase/ Protease (Creon ([id number])) 2 cap WITH MEALS PO Last administered on 12/13/18 09:33; Admin Dose 2 CAP; Start 12/02/18 at 18:00 Lactobacillus Acidophilus/ Rhamnosus (Culturelle) 1 cap WITH MEALS PO Last administered on 12/13/18 09:33; Admin Dose 1 CAP; Start 12/05/18 at 18:00 Pantoprazole (Protonix Tab) 40 mg BID@18 PO Last administered on 12/13/18 05:25; Admin Dose 40 MG; Start 12/05/18 at 18:00 Meropenem/Sodium Chloride 50 ml @ 100 mls/hr Q8H IVPB Last administered on 12/13/18 09:49; Admin Dose 100 MLS/HR; Start 12/07/18 at 01:30 Heparin Sodium (Porcine) (Heparin (1000 Units/ml)) 7,200 unit PER PROTOCOL PRN IV aPTT<47; Start 12/07/18 at 13:00 Heparin Sodium (Porcine) (Heparin (1000 Units/ml)) 3,600 unit PER PROTOCOL PRN IV aPTT<47-57; Start 12/07/18 at 13:00 Heparin Sodium (Porcine) 250 ml @ 16 mls/hr PER PROTOCOL IV Last administered on 12/12/18 17:46; Admin Dose 12 MLS/HR; Start 12/07/18 at 14:00 Methylprednisolone Sodium Succinate (Solu-Medrol) 10 mg BID IV Last administered on 12/13/18 09:47; Admin Dose 10 MG; Start 12/07/18 at 21:00 MONIQUE DE LA ROSA Dec 13, 2018 12:43
[2018-12-13 13:32] VITALS: BP 138/74; PULSE 55; RESP 20
[2018-12-13] MEDS: HEPARIN 25000 UNITS/250 ML 250 ML IV SCH (13:56)
--- NOTE | 2018-12-13 14:00 | PN ---
Date/Time of Note Date/Time of Note DATE: 12/13/18 TIME: 13:45 Assessment/Plan Lines/Catheters IV Catheter Type (from [facility]): Peripheral IV Henao in Place (from [facility]): No Assessment/Plan Chief Complaint/Hosp Course 1. CT findings of pneumatosis intestinalis of right colon and hepatic flexure, concern for ischemia and microperforation of right colon; continues to be hemodynamically stable; abdominal pain improving; labs improving; repeat ct noted with continued interval progression of colonic pneumatosis involving the proximal colon again suggestive for gangrenous bowel -continues abx per ID -judicious fluids -continue n.p.o. for now -close monitoring -may require surgical intervention, repeat ct noted however clinically improving (hd stable, pain improving, labs improving)> stat labs 2. Portal venous thrombosis, thrombosis of superior mesenteric vein; vascular surgery consult noted -Anticoagulation per medical team 3. Peripancreatic fluid with concern for acute pancreatitis; amylase and lipase within normal limits -fluid mgt 4. Liver cirrhosis with generalized anasarca -Hepatic optimization -Fluid management 5. Pleural effusion, pericardial effusion -Fluid management -Per cards/pulm 6. SLE c acute flare: steroids and colchicine -Per rheumatology 7. Obesity BMI: 34 -diet and exercise optimization -encourage weight loss 8. Leukocytosis:improving -Agree with antibiotics 9. Hypochromic anemia: -Monitor and transfuse as needed 10. Thrombocytosis: improving -dvt prophylaxis Thank you. Patient seen and examined in collaboration with Dr. Sanjay Westbrook. Subjective 24 Hr Interval Summary Feels well. abdominal pain improving. No fevers, chills, sob, congested cough, cp, palpitations, crouch, dizziness, n/v/d/dysuria. + bowel function. Exam/Review of Systems Vital Signs Vitals Vital Signs Date Temp Pulse Resp B/P (MAP) Pulse Ox O2 O2 Flow FiO2 Time Delivery Rate 12/13/18 98.1 55 20 138/74 95 13:32 (95) 12/12/18 Room Air 15:46 Intake and Output 12/12/18 12/12/18 12/13/18 1515:00 23:00 07:00 IntakeIntake Total 50 ml 1192 ml 194 ml BalanceBalance 50 ml 1192 ml 194 ml Exam Free Text/Dictation Constitutional: alert, oriented Psych: nl mood/affect; No anxiety Head: normocephalic, atraumatic Eyes: nl conjunctiva, EOMI, nl lids, nl sclera ENMT: nl external ears & nose, nl lips & teeth, mucosa pink and moist Neck: supple, non-tender; No jvd Respiratory: normal air movement; No congested cough Cardiovascular: regular rate and rhythm, nl pulses; No edema Gastrointestinal: soft, min tender Left side Genitourinary - Female: nl external genitalia Musculoskeletal: nl extremities to inspection, nl gait and stance Extremities: normal pulses Neurological: nl mental status, nl speech, nl strength Skin: No rash or lesions Lymph: No nl lymph nodes Results Result Diagram: 12/12/1804 12/12/18 0604 FARZANA RNEEE NP Dec 13, 2018 13:58
[2018-12-13] MEDS ORDERED: TPN 1,000 ML IV SCH (14:58)
[2018-12-13] MEDS: ACCU-CHEK XX SCH ×2 (16:46→21:00)
[2018-12-13 20:00] VITALS: BP 118/63; PULSE 70; RESP 18
[2018-12-14] MEDS: ACCU-CHEK XX SCH ×6 (00:45→21:32)
[2018-12-14] MEDS: MEROPENEM 1 GM/50ML(PMX) 50 ML IVPB SCH ×3 (01:12→17:49)
[2018-12-14] MEDS: HYDROmorphONE 1 MG/ML SYG IV PRN ×4 (01:13→21:47)
[2018-12-14 01:43] VITALS: BP 123/74; PULSE 59; RESP 19
[2018-12-14] MEDS: PANTOPRAZOLE (EC) 40 MG TAB PO SCH ×2 (06:03→17:49)
--- NOTE | 2018-12-14 07:06 | CONS ---
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 for this such as SLE, pancreatitis and cirrhosis patient was started on anti-coagulation 4) pneumatosis intestinalis (PI) this is a known complication of PV thrombus and does not necessarily mean actual bowel infection/infarction but the fact that there is some free air does complicate things ok to continue with merrem, will d/c ampicillin and levaquin at this time no evidence to suggest she has a lung infection which also could cause PI if anticoagulation does not resolve her abd pain she may need another abd CT to verify no further evidence of abd infection 12/09 - less abd pain today and WBC and platelets are improved (both down) continue with merrem would repeat abd/pelv CT with contrast next week to evaluate progress hopefully with oral contrast(gastrograffin) to see if any perf is present 12/12 - stable over weekend, abd pain still present but decreasing anticipate abd/pelv CT in the next few days continue with merrem 12/14 - repeat abd CT showed some progression of pneumatosis intestinalis and diffuse SB and colonic thickening and pancreatitis less likely now clinically better but WBC is improved pt is clinically not acting like gangrenous bowel and increase in pneumatosis may reflect the expansion of thrombus in the portal vein continue with merrem (day 8) but if WBC is increasing will switch to zosyn 5) pancreatitis by CT and clinical exam is c/w it too but lipase and amylase do not correlate merrem has good penetration into the pancreas and any infectious process there should be covered with merrem 12/09 - pancreatitis can cause rise in procalcitonin and it was not, diagnosis of pancreatitis is iffy and inflammation around it may be secondary to local infection due to other cause 12/14 - not appreciated at last CT on 12/12 6) gastric ulcers on treatment Consultation Date/Type/Reason Admit Date/Time Nov 29, 2018 at 06:15 Initial Consult Date 12/08/18 Type of Consult ID Date/Time of Note DATE: 12/14/18 TIME: 07:00 24 HR Interval Summary Free Text/Dictation pt states pain is last few days is a bit better but no change in last 24 hours no N, V pain is always there at low level but if does not take pain meds it gets worse one watery stool, no blood overnight no SOB Exam/Review of Systems Exam Vitals Vital Signs Date Temp Pulse Resp B/P (MAP) Pulse Ox O2 O2 Flow FiO2 Time Delivery Rate 12/14/18 98.5 59 19 123/74 95 01:43 (90) 12/12/18 Room Air 15:46 Intake and Output 12/13/18 12/13/18 12/14/18 1515:00 23:00 07:00 IntakeIntake Total 106 ml 266.8 ml BalanceBalance 106 ml 266.8 ml Constitutional: alert, oriented Eyes: nl sclera Respiratory: clear to auscultation Cardiovascular: regular rate and rhythm Gastrointestinal: soft, other (tender to LUQ and mid epigastric area only) Extremities: other (no swelling ot legs) Results Result Diagram: 12/14/18 0436 12/14/18 0435 Results 24hrs Laboratory Tests Test 12/13/18 08:02 12/13/18 13:44 12/13/18 15:26 12/13/18 17:35 Activated 63.9 H 90.1 *H Partial Thromboplast Time White Blood Count 11.8 H Red Blood Count 4.25 Hemoglobin 10.6 L Hematocrit 35.4 L Mean Corpuscular 83.3 Volume Mean Corpuscular 24.9 L Hemoglobin Mean Corpuscular 29.9 L Hemoglobin Concent Red Cell 18.0 H Distribution Width Platelet Count 440 H Mean Platelet Volume 10.3 Immature 0.800 H Granulocytes % Neutrophils % 90.5 H Lymphocytes % 2.0 L Monocytes % 5.9 Eosinophils % 0.7 Basophils % 0.1 Nucleated Red Blood 1.4 H Cells % Immature 0.090 H Granulocytes # Neutrophils # 10.7 H Lymphocytes # 0.2 L Monocytes # 0.7 Eosinophils # 0.1 Basophils # 0.0 Nucleated Red Blood 0.2 H Cells # Sodium Level 136 135 Potassium Level 4.3 4.4 Chloride Level 99 99 Carbon Dioxide Level 27 28 Anion Gap 10 8 Blood Urea Nitrogen 14 14 Creatinine 0.49 0.59 Est Glomerular > 60 > 60 Filtrat Rate mL/min Glucose Level 81 87 Calcium Level 9.2 9.5 Phosphorus Level 4.0 Magnesium Level 1.9 Total Bilirubin 1.1 Direct Bilirubin 0.00 Indirect Bilirubin 1.1 Aspartate Amino 28 Transf (AST/SGOT) Alanine 33 Aminotransferase (AL T/SGPT) Alkaline Phosphatase 111 Total Protein 6.7 Albumin 3.5 Globulin 3.20 Albumin/Globulin 1.09 Ratio Prealbumin 14.3 L Triglycerides Level 102 Test 12/14/18 00:56 12/14/18 04:35 12/14/18 04:36 Activated 103.6 *H Partial Thromboplast Time Sodium Level 137 Potassium Level 4.2 Chloride Level 100 Carbon Dioxide Level 27 Anion Gap 10 Blood Urea Nitrogen 14 Creatinine 0.43 L Est Glomerular > 60 Filtrat Rate mL/min Glucose Level 87 Calcium Level 8.7 Phosphorus Level 4.1 Magnesium Level 1.9 White Blood Count 13.4 H Red Blood Count 3.76 L Hemoglobin 9.4 L Hematocrit 30.9 L Mean Corpuscular 82.2 Volume Mean Corpuscular 25.0 L Hemoglobin Mean Corpuscular 30.4 L Hemoglobin Concent Red Cell 18.1 H Distribution Width Platelet Count 322 # Mean Platelet Volume 10.8 H Immature 0.900 H Granulocytes % Neutrophils % 87.4 H Lymphocytes % 2.7 L Monocytes % 8.7 Eosinophils % 0.2 Basophils % 0.1 Nucleated Red Blood 1.1 H Cells % Immature 0.120 H Granulocytes # Neutrophils # 11.7 H Lymphocytes # 0.4 L Monocytes # 1.2 H Eosinophils # 0.0 Basophils # 0.0 Nucleated Red Blood 0.2 H Cells # Medications Medication Current Medications IV Flush (NS 3 ml) 3 ml PER PROTOCOL IV ; Start 11/29/18 at 07:00 Ondansetron HCl (Zofran Inj) 4 mg Q6H PRN IV NAUSEA/VOMITING Last administered on 12/13/18at 06:18; Admin Dose 4 MG; Start 11/29/18 at 07:00 Acetaminophen (Tylenol Tab) 650 mg Q6H PRN PO .PAIN 1-3 OR TEMP; Start 11/29/18 at 07:00 Acetaminophen/ Hydrocodone Bitart ([place] (5/325)) 1 tab Q6H PRN PO .MOD PAIN 4- 6 Last administered on 12/02/18at 11:08; Admin Dose 1 TAB; Start 11/29/18 at 07:00 Docusate Sodium (Colace) 100 mg Q12H PRN PO .CONSTIPATION; Start 11/29/18 at 07:00 Magnesium Hydroxide (Milk Of Mag) 30 ml DAILY PRN PO .CONSTIPATION; Start 11/29/18 at 07:00 Lorazepam (Ativan) 0.5 mg Q6H PRN IV ANXIETY; Start 11/29/18 at 07:00 Albuterol/ Ipratropium (Duoneb) 3 ml Q4H RESP THERAPY PRN HHN SHORTNESS OF BREATH; Start 11/29/18 at 07:00 Hydralazine HCl (Apresoline) 10 mg Q6H PRN IV for sys bp > 180; Start 11/29/18 at 07:00 Nitroglycerin (Nitroglycerin (Sl Tab) 0.4 Mg) 1 tab Q5M PRN SL ANGINA Last administered on 11/30/18 10:24; Admin Dose 1 TAB; Start 11/29/18 at 07:00 Amlodipine Besylate (Norvasc) 5 mg BID PO Last administered on 12/13/18 22:14; Admin Dose 5 MG; Start 11/30/18 at 09:00 Azathioprine (Imuran) 100 mg DAILY PO Last administered on 12/13/18 09:40; Admin Dose 100 MG; Start 11/30/18 at 09:00 Cyclobenzaprine HCl (Flexeril) 10 mg TID PO Last administered on 12/13/18 22:14; Admin Dose 10 MG; Start 11/30/18 at 09:00 Nadolol (Corgard) 20 mg BID PO Last administered on 12/13/18 09:33; Admin Dose 20 MG; Start 11/30/18 at 09:00 Tramadol HCl (Ultram) 50 mg Q4 PRN PO PAIN Last administered on 12/03/18 03:13; Admin Dose 50 MG; Start 11/30/18 at 00:00 Calcium/Vitamin D (Oyster Shell/ Vit-D (500/200)) 1 tab DAILY PO Last administered on 12/13/18 09:45; Admin Dose 1 TAB; Start 11/30/18 at 09:00 Sucralfate (Carafate Susp) 1 gm QID PO Last administered on 12/13/18 22:11; Admin Dose 1 GM; Start 11/30/18 at 09:00 Metoclopramide HCl (Reglan) 10 mg Q6H PRN IV nausae Last administered on 12/06/18 02:23; Admin Dose 10 MG; Start 11/30/18 at 11:00 Colchicine (Colchicine) 0.6 mg BID PO Last administered on 12/13/18 22:13; Admin Dose 0.6 MG; Start 11/30/18 at 12:30 Hydromorphone HCl (Dilaudid) 1 mg Q4H PRN IV SEVERE PAIN LEVEL 7-10 Last administered on 12/14/18 01:13; Admin Dose 1 MG; Start 12/02/18 at 12:30 Amylase/Lipase/ Protease (Creon (13g-[id number])) 2 cap WITH MEALS PO Last administered on 12/13/18 16:45; Admin Dose 2 CAP; Start 12/02/18 at 18:00 Lactobacillus Acidophilus/ Rhamnosus (Culturelle) 1 cap WITH MEALS PO Last administered on 12/13/18 16:45; Admin Dose 1 CAP; Start 12/05/18 at 18:00 Pantoprazole (Protonix Tab) 40 mg BID@06,18 PO Last administered on 12/14/18 06:03; Admin Dose 40 MG; Start 12/05/18 at 18:00 Meropenem/Sodium Chloride 50 ml @ 100 mls/hr Q8H IVPB Last administered on 12/14/18 01:12; Admin Dose 100 MLS/HR; Start 12/07/18 at 01:30 Heparin Sodium (Porcine) (Heparin (1000 Units/ml)) 7,200 unit PER PROTOCOL PRN IV aPTT<47; Start 12/07/18 at 13:00 Heparin Sodium (Porcine) (Heparin (1000 Units/ml)) 3,600 unit PER PROTOCOL PRN IV aPTT<47-57; Start 12/07/18 at 13:00 Heparin Sodium (Porcine) 250 ml @ 16 mls/hr PER PROTOCOL IV Last administered on 12/13/18 13:56; Admin Dose 13.8 MLS/HR; Start 12/07/18 at 14:00 Methylprednisolone Sodium Succinate (Solu-Medrol) 10 mg BID IV Last ad ministered on 12/13/18 22:11; Admin Dose 10 MG; Start 12/07/18 at 21:00 Diagnostic Test (Pha) (Accu-Chek) 1 ea Q4 XX ; Start 12/13/18 at 17:00 Total Parenteral Nutrition 1,000 ml @ 0 mls/hr Q0M IV ; Start 12/13/18 at 14:58; Status UNV IV Flush (NS 10 ml) 10 ml Q8 PRN IV IV PROTOCOL; Start 12/13/18 at 21:30 ARAMIS WAKEFIELD MD Dec 14, 2018 07:06
[2018-12-14 07:55] VITALS: BP 120/65; PULSE 56; RESP 16
[2018-12-14] MEDS: NADOLOL 40 MG TAB PO SCH ×2 (09:00→21:34)
[2018-12-14] MEDS: LACTOBACILLUS RHAMNOSUS CAP PO SCH ×3 (09:06→17:49)
[2018-12-14] MEDS: CYCLOBENZAPRINE 10 MG TAB PO SCH ×3 (09:07→21:33)
[2018-12-14] MEDS: COLCHICINE 0.6 MG TAB PO SCH ×2 (09:07→21:33)
[2018-12-14] MEDS: SUCRALFATE (100 MG/ML) 10ML CUP PO SCH ×4 (09:07→21:33)
[2018-12-14] MEDS: AZATHIOPRINE 50 MG TAB PO SCH (09:07)
[2018-12-14] MEDS: CREON (24K-76K-120K) 1 CAP PO SCH ×3 (09:07→17:49)
[2018-12-14] MEDS: AMLODIPINE 10 MG TAB PO SCH ×2 (09:08→21:34)
[2018-12-14] MEDS: METHYLPREDNISOLONE 40 MG INJ IV SCH ×2 (09:09→21:33)
[2018-12-14] MEDS: HEPARIN 25000 UNITS/250 ML 250 ML IV SCH (09:18)
[2018-12-14] MEDS: ONDANSETRON 4 MG INJ IV PRN ×2 (09:23→16:31)
[2018-12-14] MEDS: CALCIUM/VITAMIN D (500/200) TAB PO SCH ×2 (10:00→12:24)
--- NOTE | 2018-12-14 10:30 | PN ---
Date/Time of Note Date/Time of Note DATE: 12/14/18 TIME: 10:21 Assessment/Plan VTE Prophylaxis Risk score (from Ns)>0 risk: 1 SCD applied (from [facility]): No SCD contraindicated: other Pharmacological prophylaxis: heparin Lines/Catheters IV Catheter Type (from [facility]): PICC Line Urinary Cath still in place: No Assessment/Plan Hospital Course Assessment and plan 1. Abdominal pain -CT scan of the abdomen showing acute pancreatitis (November 29, 2018) -Repeat CT scan of the abdomen on December 06, 2018 showed pneumatosis intestinalis of the right colon and hepatic flexure with suspicion of bowel ischemia with several foci of free air in the right lower quadrant worrisome for microperforation of the right colon. - Continue abx treatment. -repeat CT scan of the abdomen with IV and oral contrast 12/12/18: continued interval progression of colonic pneumatosis involving the proximal colon again suggestive for gangrenous bowel. There is generalized small and large bowel wall thickening with more pronounced involvement of the colon that could represent third spacing of fluid versus colitis - f/u surgeon recommendations 2. 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 Acute pancreatitis -Continue on Creon GI consult is following 4.Lupus flare -Resident Care Director following -On steroid medication 5. Chronic liver cirrhosis with history of esophageal varices -Remains on beta-tavon 6. 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 Hx Raynaud's Syndrome - hx right mid finger amputation - continue precuations 9. Obesity - Weight reduction was advised Disposition and plan. Patient noted with progression of pneumatosis intestinalis suggestive of gangrenous bowel per imaging, however with no overt s/s of distress. Discussed with care team, will plan for transfer to tertiary care center for possible TIPPS procedure and/or portal vein thrombectomy. Discussed POC with Dr. Noriega Result Diagram: 12/14/18 0436 12/14/18 0435 Results 24hrs Laboratory Tests Test 12/13/18 13:44 12/13/18 15:26 12/13/18 17:35 12/14/18 00:56 White Blood Count 11.8 H Red Blood Count 4.25 Hemoglobin 10.6 L Hematocrit 35.4 L Mean Corpuscular 83.3 Volume Mean Corpuscular 24.9 L Hemoglobin Mean Corpuscular 29.9 L Hemoglobin Concent Red Cell 18.0 H Distribution Width Platelet Count 440 H Mean Platelet Volume 10.3 Immature 0.800 H Granulocytes % Neutrophils % 90.5 H Lymphocytes % 2.0 L Monocytes % 5.9 Eosinophils % 0.7 Basophils % 0.1 Nucleated Red Blood 1.4 H Cells % Immature 0.090 H Granulocytes # Neutrophils # 10.7 H Lymphocytes # 0.2 L Monocytes # 0.7 Eosinophils # 0.1 Basophils # 0.0 Nucleated Red Blood 0.2 H Cells # Sodium Level 136 135 Potassium Level 4.3 4.4 Chloride Level 99 99 Carbon Dioxide Level 27 28 Anion Gap 10 8 Blood Urea Nitrogen 14 14 Creatinine 0.49 0.59 Est Glomerular > 60 > 60 Filtrat Rate mL/min Glucose Level 81 87 Calcium Level 9.2 9.5 Phosphorus Level 4.0 Magnesium Level 1.9 Total Bilirubin 1.1 Direct Bilirubin 0.00 Indirect Bilirubin 1.1 Aspartate Amino 28 Transf (AST/SGOT) Alanine 33 Aminotransferase (AL T/SGPT) Alkaline Phosphatase 111 Total Protein 6.7 Albumin 3.5 Globulin 3.20 Albumin/Globulin 1.09 Ratio Prealbumin 14.3 L Triglycerides Level 102 Activated 90.1 *H 103.6 *H Partial Thromboplast Time Test 12/14/18 04:35 12/14/18 04:36 12/14/18 07:51 Sodium Level 137 Potassium Level 4.2 Chloride Level 100 Carbon Dioxide Level 27 Anion Gap 10 Blood Urea Nitrogen 14 Creatinine 0.43 L Est Glomerular > 60 Filtrat Rate mL/min Glucose Level 87 Calcium Level 8.7 Phosphorus Level 4.1 Magnesium Level 1.9 White Blood Count 13.4 H Red Blood Count 3.76 L Hemoglobin 9.4 L Hematocrit 30.9 L Mean Corpuscular 82.2 Volume Mean Corpuscular 25.0 L Hemoglobin Mean Corpuscular 30.4 L Hemoglobin Concent Red Cell 18.1 H Distribution Width Platelet Count 322 # Mean Platelet Volume 10.8 H Immature 0.900 H Granulocytes % Neutrophils % 87.4 H Lymphocytes % 2.7 L Monocytes % 8.7 Eosinophils % 0.2 Basophils % 0.1 Nucleated Red Blood 1.1 H Cells % Immature 0.120 H Granulocytes # Neutrophils # 11.7 H Lymphocytes # 0.4 L Monocytes # 1.2 H Eosinophils # 0.0 Basophils # 0.0 Nucleated Red Blood 0.2 H Cells # Activated 100.5 *H Partial Thromboplast Time Subjective 24 Hr Interval Summary Free Text/Dictation reports that when she has oral liquids that she has watery bowel movements. reports good pain control at this time Exam/Review of Systems Exam Vitals Vital Signs Date Temp Pulse Resp B/P (MAP) Pulse Ox O2 O2 Flow FiO2 Time Delivery Rate 12/14/18 98.1 56 16 120/65 96 07:55 (83) 12/12/18 Room Air 15:46 Intake and Output 12/13/18 12/13/18 12/14/18 1515:00 23:00 07:00 IntakeIntake Total 106 ml 266.8 ml BalanceBalance 106 ml 266.8 ml Exam Constitutional: alert, oriented Psych: nl mood/affect Head: normocephalic Neck: supple, non-tender Respiratory: clear to auscultation Cardiovascular: regular rate and rhythm Gastrointestinal: tender Musculoskeletal: nl extremities to inspection Neurological: AUTOMATIC 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 MACHINE FEEDER II-XII intact, nl mental status, nl speech Skin: nl turgor Results Results 24hrs Laboratory Tests Test 12/13/18 13:44 12/13/18 15:26 12/13/18 17:35 12/14/18 00:56 White Blood Count 11.8 H Red Blood Count 4.25 Hemoglobin 10.6 L Hematocrit 35.4 L Mean Corpuscular 83.3 Volume Mean Corpuscular 24.9 L Hemoglobin Mean Corpuscular 29.9 L Hemoglobin Concent Red Cell 18.0 H Distribution Width Platelet Count 440 H Mean Platelet Volume 10.3 Immature 0.800 H Granulocytes % Neutrophils % 90.5 H Lymphocytes % 2.0 L Monocytes % 5.9 Eosinophils % 0.7 Basophils % 0.1 Nucleated Red Blood 1.4 H Cells % Immature 0.090 H Granulocytes # Neutrophils # 10.7 H Lymphocytes # 0.2 L Monocytes # 0.7 Eosinophils # 0.1 Basophils # 0.0 Nucleated Red Blood 0.2 H Cells # Sodium Level 136 135 Potassium Level 4.3 4.4 Chloride Level 99 99 Carbon Dioxide Level 27 28 Anion Gap 10 8 Blood Urea Nitrogen 14 14 Creatinine 0.49 0.59 Est Glomerular > 60 > 60 Filtrat Rate mL/min Glucose Level 81 87 Calcium Level 9.2 9.5 Phosphorus Level 4.0 Magnesium Level 1.9 Total Bilirubin 1.1 Direct Bilirubin 0.00 Indirect Bilirubin 1.1 Aspartate Amino 28 Transf (AST/SGOT) Alanine 33 Aminotransferase (AL T/SGPT) Alkaline Phosphatase 111 Total Protein 6.7 Albumin 3.5 Globulin 3.20 Albumin/Globulin 1.09 Ratio Prealbumin 14.3 L Triglycerides Level 102 Activated 90.1 *H 103.6 *H Partial Thromboplast Time Test 12/14/18 04:35 12/14/18 04:36 12/14/18 07:51 Sodium Level 137 Potassium Level 4.2 Chloride Level 100 Carbon Dioxide Level 27 Anion Gap 10 Blood Urea Nitrogen 14 Creatinine 0.43 L Est Glomerular > 60 Filtrat Rate mL/min Glucose Level 87 Calcium Level 8.7 Phosphorus Level 4.1 Magnesium Level 1.9 White Blood Count 13.4 H Red Blood Count 3.76 L Hemoglobin 9.4 L Hematocrit 30.9 L Mean Corpuscular 82.2 Volume Mean Corpuscular 25.0 L Hemoglobin Mean Corpuscular 30.4 L Hemoglobin Concent Red Cell 18.1 H Distribution Width Platelet Count 322 # Mean Platelet Volume 10.8 H Immature 0.900 H Granulocytes % Neutrophils % 87.4 H Lymphocytes % 2.7 L Monocytes % 8.7 Eosinophils % 0.2 Basophils % 0.1 Nucleated Red Blood 1.1 H Cells % Immature 0.120 H Granulocytes # Neutrophils # 11.7 H Lymphocytes # 0.4 L Monocytes # 1.2 H Eosinophils # 0.0 Basophils # 0.0 Nucleated Red Blood 0.2 H Cells # Activated 100.5 *H Partial Thromboplast Time Medications Medication Current Medications IV Flush (NS 3 ml) 3 ml PER PROTOCOL IV ; Start 11/29/18 at 07:00 Ondansetron HCl (Zofran Inj) 4 mg Q6H PRN IV NAUSEA/VOMITING Last administered on 12/14/18at 09:23; Admin Dose 4 MG; Start 11/29/18 at 07:00 Acetaminophen (Tylenol Tab) 650 mg Q6H PRN PO .PAIN 1-3 OR TEMP; Start 11/29/18 at 07:00 Acetaminophen/ Hydrocodone Bitart ([place] (5/325)) 1 tab Q6H PRN PO .MOD PAIN 4- 6 Last administered on 12/02/18 11:08; Admin Dose 1 TAB; Start 11/29/18 at 07:00 Docusate Sodium (Colace) 100 mg Q12H PRN PO .CONSTIPATION; Start 11/29/18 at 07:00 Magnesium Hydroxide (Milk Of Mag) 30 ml DAILY PRN PO .CONSTIPATION; Start 11/29/18 at 07:00 Lorazepam (Ativan) 0.5 mg Q6H PRN IV ANXIETY; Start 11/29/18 at 07:00 Albuterol/ Ipratropium (Duoneb) 3 ml Q4H RESP THERAPY PRN HHN SHORTNESS OF BREATH; Start 11/29/18 at 07:00 Hydralazine HCl (Apresoline) 10 mg Q6H PRN IV for sys bp > 180; Start 11/29/18 at 07:00 Nitroglycerin (Nitroglycerin (Sl Tab) 0.4 Mg) 1 tab Q5M PRN SL ANGINA Last administered on 11/30/18 10:24; Admin Dose 1 TAB; Start 11/29/18 at 07:00 Amlodipine Besylate (Norvasc) 5 mg BID PO Last administered on 12/14/18 09:08; Admin Dose 5 MG; Start 11/30/18 at 09:00 Azathioprine (Imuran) 100 mg DAILY PO Last administered on 12/14/18 09:07; Admin Dose 100 MG; Start 11/30/18 at 09:00 Cyclobenzaprine HCl (Flexeril) 10 mg TID PO Last administered on 12/14/18 09:07; Admin Dose 10 MG; Start 11/30/18 at 09:00 Nadolol (Corgard) 20 mg BID PO Last administered on 12/13/18 09:33; Admin Dose 20 MG; Start 11/30/18 at 09:00 Tramadol HCl (Ultram) 50 mg Q4 PRN PO PAIN Last administered on 12/03/18 03:13; Admin Dose 50 MG; Start 11/30/18 at 00:00 Calcium/Vitamin D ([place]/ Vit-D (500/200)) 1 tab DAILY PO Last administered on 12/13/18 09:45; Admin Dose 1 TAB; Start 11/30/18 at 09:00 Sucralfate (Carafate Susp) 1 gm QID PO Last administered on 12/14/18 09:07; Admin Dose 1 GM; Start 11/30/18 at 09:00 Metoclopramide HCl (Reglan) 10 mg Q6H PRN IV nausae Last administered on 12/06/18 02:23; Admin Dose 10 MG; Start 11/30/18 at 11:00 Colchicine (Colchicine) 0.6 mg BID PO Last administered on 12/14/18 09:07; Admin Dose 0.6 MG; Start 11/30/18 at 12:30 Hydromorphone HCl (Dilaudid) 1 mg Q4H PRN IV SEVERE PAIN LEVEL 7-10 Last administered on 12/14/18 09:23; Admin Dose 1 MG; Start 12/02/18 at 12:30 Amylase/Lipase/ Protease (Creon (47p-45y-267r)) 2 cap WITH MEALS PO Last administered on 12/14/18 09:07; Admin Dose 2 CAP; Start 12/02/18 at 18:00 Lactobacillus Acidophilus/ Rhamnosus (Culturelle) 1 cap WITH MEALS PO Last administered on 12/14/18 09:06; Admin Dose 1 CAP; Start 12/05/18 at 18:00 Pantoprazole (Protonix Tab) 40 mg BID@06,18 PO Last administered on 12/14/18 06:03; Admin Dose 40 MG; Start 12/05/18 at 18:00 Meropenem/Sodium Chloride 50 ml @ 100 mls/hr Q8H IVPB Last administered on 12/14/18 09:23; Admin Dose 100 MLS/HR; Start 12/07/18 at 01:30 Heparin Sodium (Porcine) (Heparin (1000 Units/ml)) 7,200 unit PER PROTOCOL PRN IV aPTT<47; Start 12/07/18 at 13:00 Heparin Sodium (Porcine) (Heparin (1000 Units/ml)) 3,600 unit PER PROTOCOL PRN IV aPTT<47-57; Start 12/07/18 at 13:00 Heparin Sodium (Porcine) 250 ml @ 16 mls/hr PER PROTOCOL IV Last administered on 12/14/18 09:18; Admin Dose 13 MLS/HR; Start 12/07/18 at 14:00 Methylprednisolone Sodium Succinate (Solu-Medrol) 10 mg BID IV Last administered on 12/14/18at 09:09; Admin Dose 10 MG; Start 12/07/18 at 21:00 Diagnostic Test (Pha) (Accu-Chek) 1 ea Q4 XX ; Start 12/13/18 at 17:00 IV Flush (NS 10 ml) 10 ml Q8 PRN IV IV PROTOCOL; Start 12/13/18 at 21:30 Total Parenteral Nutrition 1,000 ml @ 80 mls/hr Q12H IV ; Start 12/14/18 at 16:00 CHILO LEE NP Dec 14, 2018 10:30
--- NOTE | 2018-12-14 12:21 | PN ---
Date/Time of Note Date/Time of Note DATE: 12/14/18 TIME: 12:16 Assessment/Plan Lines/Catheters IV Catheter Type (from [facility]): PICC Line Henao in Place (from [facility]): No Assessment/Plan Chief Complaint/Hosp Course 1. CT findings of pneumatosis intestinalis of right colon and hepatic flexure, concern for ischemia and microperforation of right colon; repeat ct noted with continued interval progression of colonic pneumatosis involving the proximal colon again suggestive for gangrenous bowel; hemodynamically stable, abdominal pain is improving -continues abx per ID -judicious fluids -continue n.p.o. for now> recommend TPN initiation -close monitoring -Will require transfer to tertiary center for possible thrombectomy/revascularization, vascular optimization prior to surgical intervention 2. Portal venous thrombosis, thrombosis of superior mesenteric vein; vascular surgery consult noted: Dr. Wetsbrook spoke with vascular team whose recommendation is to transfer to tertiary center -Anticoagulation per medical team 3. Peripancreatic fluid with concern for acute pancreatitis; amylase and lipase within normal limits -fluid mgt 4. Liver cirrhosis with generalized anasarca -Hepatic optimization -Fluid management 5. Pleural effusion, pericardial effusion -Fluid management -Per cards/pulm 6. SLE c acute flare: steroids and colchicine -Per rheumatology 7. Obesity BMI: 34 -diet and exercise optimization -encourage weight loss 8. Leukocytosis:improving -Agree with antibiotics 9. Hypochromic anemia: -Monitor and transfuse as needed 10. Thrombocytosis: improving -dvt prophylaxis -Anticoagulation Thank you. Patient seen and examined in collaboration with Dr. Sanjay Westbrook. Subjective 24 Hr Interval Summary No acute abdominal pain. + Bowel function. No fevers, chills, sob, congested cough, cp, palpitations, crouch, dizziness, nausea, vomiting, diarrhea, dysuria. Exam/Review of Systems Vital Signs Vitals Vital Signs Date Temp Pulse Resp B/P (MAP) Pulse Ox O2 O2 Flow FiO2 Time Delivery Rate 12/14/18 98.1 56 16 120/65 96 07:55 (83) 12/12/18 Room Air 15:46 Intake and Output 12/13/18 12/13/18 12/14/18 1515:00 23:00 07:00 IntakeIntake Total 106 ml 266.8 ml BalanceBalance 106 ml 266.8 ml Exam Free Text/Dictation Constitutional: alert, oriented Psych: nl mood/affect; No anxiety Head: normocephalic, atraumatic Eyes: nl conjunctiva, EOMI, nl lids, nl sclera ENMT: nl external ears & nose, nl lips & teeth, mucosa pink and moist Neck: supple, non-tender; No jvd Respiratory: normal air movement; No congested cough Cardiovascular: regular rate and rhythm, nl pulses; No edema Gastrointestinal: soft, min tender Left side Genitourinary - Female: nl external genitalia Musculoskeletal: nl extremities to inspection, nl gait and stance Extremities: normal pulses Neurological: nl mental status, nl speech, nl strength Skin: No rash or lesions Lymph: No nl lymph nodes Results Result Diagram: 12/14/18 0436 12/14/18 0435 FARZANA RENEE NP Dec 14, 2018 12:21
--- NOTE | 2018-12-14 12:34 | PN ---
Date/Time of Note Date/Time of Note DATE: 12/14/18 TIME: 12:26 Assessment/Plan VTE Prophylaxis Risk score (from Nsg)>0 risk: 1 SCD applied (from Nsg): No SCD contraindicated: low risk/ambulating Pharmacological prophylaxis: heparin Lines/Catheters IV Catheter Type (from Nrsg): PICC Line Central line still needed: Yes (TPN) Urinary Cath still in place: No Assessment/Plan Hospital Course Assessment/Plan Assessment: Epigastric pain-with radiation to left upper quadrant and left flank/back- -CT is concerning for pancreatitis, however lipase and amylase WNL -Repeat abdominal CT on 12/06/2018 showed pneumatosis intestinalis of the right colon and hepatic flexure, raising concerning for bowel ischemia with a several foci of free air in the right lower quadrant worrisome for microperforation of the right colon. -Repeat Ct scan 12/13/18-There is continued interval progression of colonic pneumatosis involving the proximal colon again suggestive for gangrenous bowel. There is generalized small and large bowel wall thickening with more pronounced involvement of the colon that could represent third spacing of fluid versus colitis. There is pronounced diffuse intrahepatic portal vein thrombus along with thrombosis of the entirety of the main portal vein, portal confluence, splenic vein and the majority of the superior mesenteric vein. Residual patent mesenteric veins are seen along with cavernous transformation of the portal vein and the presence of portal venous collateral vessels. 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 -Pt consulted by vascular sx -Currently on anti-coagulation Left pleural effusion Diarrhea -Stool Cx- coliform Pericardial effusion, moderate -Echocardiogram - Small to borderline moderate circumferential pericardial effusion without evidence of tamponade. EF 55% Normocytic Anemia Recent History Hematemesis EGD 11/15/2018 Extensive ulceration of the distal esophagus, rule out opportunistic infec tion, biopsies obtained. Grade II/IV esophageal varices. No stigmata of recent bleeding. No thera peutic intervention required Mild gastritis versus portal gastropathy, Otherwise normal EGD Stomach biopsy negative for H. pylori infection, no evidence of intestinal metaplasia, dysplasia, or malignancy Esophageal ulcer biopsy mucosa showing moderate chronic inflammation no squamous mucosa is present. No goblet cells are identified, no H. pylori is identified, no evidence of dysplasia or malignancy SLE/Rheumatoid arthritis/Raynaud's syndrome -On prednisone. History of Splenectomy Depression HTN Hx of EGD/colonoscopy 09/26/18 Colonoscopy 09/26/2018colitis more significant in the area of the rectum moderate size internal hemorrhoidsbiopsy negative for evidence of colitis EGD grade II/IV esophageal varices, severe gastritisbiopsies negative for H. pylori Liver cirrhosis- with hx of EV -Hepatitis serology negative -ASMA,AMA- negative Thrombocytosis- improving Status post finger amputation secondary to Raynaud's syndrome Leukocytosis - trending down Plan: Surgery/Vascular recommend transfer to tertiary center for possible thrombect alex/revascularization, which will need to be completed prior to surgical intervention TPN to meet nutritional/caloric needs Continue supportive care Patient seen in collaboration with Subjective: Course reviewed with nursing staff Patient interviewed and examined All labs, imaging and other results reviewed No over night events, pt continues to c/o a consent pain to upper abd area- described as 2-3/10 Diarrhea only when taking water with PO medication. non-progressive. No overt signs of GI bleed. Exam PHYSICAL EXAMINATION: GENERAL: Chronically ill appearing young woman, alert & oriented x 3, edema/swelling from chronic steroid use- improved SKIN: No lesions. HEAD: Normocephalic, atraumatic, no tenderness. EYES: Pupils equal reactive to light, no discharge. EARS/NOSE AND THROAT: Ears normal, nose normal. NECK: Supple, no masses, thyroid normal. CHEST: Inspection within normal limits. CARDIOVASCULAR: Heart: Regular rate and rhythm RESPIRATORY: Lungs clear to auscultation. GASTROINTESTINAL AND LIVER: Abdomen: obese, soft, epigastric tenderness, non- distended, no hernias, no masses, normoactive bowel sounds. Rectal: Deferred. EXTREMITIES: No cyanosis, clubbing or edema. Right index finger amputated 1 phalanx Result Diagram: 12/14/18 0436 12/14/18 0435 Results 24hrs Laboratory Tests Test 12/13/18 13:44 12/13/18 15:26 12/13/18 17:35 12/14/18 00:56 White Blood Count 11.8 H Red Blood Count 4.25 Hemoglobin 10.6 L Hematocrit 35.4 L Mean Corpuscular 83.3 Volume Mean Corpuscular 24.9 L Hemoglobin Mean Corpuscular 29.9 L Hemoglobin Concent Red Cell 18.0 H Distribution Width Platelet Count 440 H Mean Platelet Volume 10.3 Immature 0.800 H Granulocytes % Neutrophils % 90.5 H Lymphocytes % 2.0 L Monocytes % 5.9 Eosinophils % 0.7 Basophils % 0.1 Nucleated Red Blood 1.4 H Cells % Immature 0.090 H Granulocytes # Neutrophils # 10.7 H Lymphocytes # 0.2 L Monocytes # 0.7 Eosinophils # 0.1 Basophils # 0.0 Nucleated Red Blood 0.2 H Cells # Sodium Level 136 135 Potassium Level 4.3 4.4 Chloride Level 99 99 Carbon Dioxide Level 27 28 Anion Gap 10 8 Blood Urea Nitrogen 14 14 Creatinine 0.49 0.59 Est Glomerular > 60 > 60 Filtrat Rate mL/min Glucose Level 81 87 Calcium Level 9.2 9.5 Phosphorus Level 4.0 Magnesium Level 1.9 Total Bilirubin 1.1 Direct Bilirubin 0.00 Indirect Bilirubin 1.1 Aspartate Amino 28 Transf (AST/SGOT) Alanine 33 Aminotransferase (AL T/SGPT) Alkaline Phosphatase 111 Total Protein 6.7 Albumin 3.5 Globulin 3.20 Albumin/Globulin 1.09 Ratio Prealbumin 14.3 L Triglycerides Level 102 Activated 90.1 *H 103.6 *H Partial Thromboplast Time Test 12/14/18 04:35 12/14/18 04:36 12/14/18 07:51 Sodium Level 137 Potassium Level 4.2 Chloride Level 100 Carbon Dioxide Level 27 Anion Gap 10 Blood Urea Nitrogen 14 Creatinine 0.43 L Est Glomerular > 60 Filtrat Rate mL/min Glucose Level 87 Calcium Level 8.7 Phosphorus Level 4.1 Magnesium Level 1.9 White Blood Count 13.4 H Red Blood Count 3.76 L Hemoglobin 9.4 L Hematocrit 30.9 L Mean Corpuscular 82.2 Volume Mean Corpuscular 25.0 L Hemoglobin Mean Corpuscular 30.4 L Hemoglobin Concent Red Cell 18.1 H Distribution Width Platelet Count 322 # Mean Platelet Volume 10.8 H Immature 0.900 H Granulocytes % Neutrophils % 87.4 H Lymphocytes % 2.7 L Monocytes % 8.7 Eosinophils % 0.2 Basophils % 0.1 Nucleated Red Blood 1.1 H Cells % Immature 0.120 H Granulocytes # Neutrophils # 11.7 H Lymphocytes # 0.4 L Monocytes # 1.2 H Eosinophils # 0.0 Basophils # 0.0 Nucleated Red Blood 0.2 H Cells # Activated 100.5 *H Partial Thromboplast Time Exam/Review of Systems Exam Vitals Vital Signs Date Temp Pulse Resp B/P (MAP) Pulse Ox O2 O2 Flow FiO2 Time Delivery Rate 12/14/18 98.1 56 16 120/65 96 07:55 (83) 12/12/18 Room Air 15:46 Intake and Output 12/13/18 12/13/18 12/14/18 1515:00 23:00 07:00 IntakeIntake Total 106 ml 266.8 ml BalanceBalance 106 ml 266.8 ml Results Results 24hrs Laboratory Tests Test 12/13/18 13:44 12/13/18 15:26 12/13/18 17:35 12/14/18 00:56 White Blood Count 11.8 H Red Blood Count 4.25 Hemoglobin 10.6 L Hematocrit 35.4 L Mean Corpuscular 83.3 Volume Mean Corpuscular 24.9 L Hemoglobin Mean Corpuscular 29.9 L Hemoglobin Concent Red Cell 18.0 H Distribution Width Platelet Count 440 H Mean Platelet Volume 10.3 Immature 0.800 H Granulocytes % Neutrophils % 90.5 H Lymphocytes % 2.0 L Monocytes % 5.9 Eosinophils % 0.7 Basophils % 0.1 Nucleated Red Blood 1.4 H Cells % Immature 0.090 H Granulocytes # Neutrophils # 10.7 H Lymphocytes # 0.2 L Monocytes # 0.7 Eosinophils # 0.1 Basophils # 0.0 Nucleated Red Blood 0.2 H Cells # Sodium Level 136 135 Potassium Level 4.3 4.4 Chloride Level 99 99 Carbon Dioxide Level 27 28 Anion Gap 10 8 Blood Urea Nitrogen 14 14 Creatinine 0.49 0.59 Est Glomerular > 60 > 60 Filtrat Rate mL/min Glucose Level 81 87 Calcium Level 9.2 9.5 Phosphorus Level 4.0 Magnesium Level 1.9 Total Bilirubin 1.1 Direct Bilirubin 0.00 Indirect Bilirubin 1.1 Aspartate Amino 28 Transf (AST/SGOT) Alanine 33 Aminotransferase (AL T/SGPT) Alkaline Phosphatase 111 Total Protein 6.7 Albumin 3.5 Globulin 3.20 Albumin/Globulin 1.09 Ratio Prealbumin 14.3 L Triglycerides Level 102 Activated 90.1 *H 103.6 *H Partial Thromboplast Time Test 12/14/18 04:35 12/14/18 04:36 12/14/18 07:51 Sodium Level 137 Potassium Level 4.2 Chloride Level 100 Carbon Dioxide Level 27 Anion Gap 10 Blood Urea Nitrogen 14 Creatinine 0.43 L Est Glomerular > 60 Filtrat Rate mL/min Glucose Level 87 Calcium Level 8.7 Phosphorus Level 4.1 Magnesium Level 1.9 White Blood Count 13.4 H Red Blood Count 3.76 L Hemoglobin 9.4 L Hematocrit 30.9 L Mean Corpuscular 82.2 Volume Mean Corpuscular 25.0 L Hemoglobin Mean Corpuscular 30.4 L Hemoglobin Concent Red Cell 18.1 H Distribution Width Platelet Count 322 # Mean Platelet Volume 10.8 H Immature 0.900 H Granulocytes % Neutrophils % 87.4 H Lymphocytes % 2.7 L Monocytes % 8.7 Eosinophils % 0.2 Basophils % 0.1 Nucleated Red Blood 1.1 H Cells % Immature 0.120 H Granulocytes # Neutrophils # 11.7 H Lymphocytes # 0.4 L Monocytes # 1.2 H Eosinophils # 0.0 Basophils # 0.0 Nucleated Red Blood 0.2 H Cells # Activated 100.5 *H Partial Thromboplast Time Medications Medication Current Medications IV Flush (NS 3 ml) 3 ml PER PROTOCOL IV ; Start 11/29/18 at 07:00 Ondansetron HCl (Zofran Inj) 4 mg Q6H PRN IV NAUSEA/VOMITING Last administered on 12/14/18at 09:23; Admin Dose 4 MG; Start 11/29/18 at 07:00 Acetaminophen (Tylenol Tab) 650 mg Q6H PRN PO .PAIN 1-3 OR TEMP; Start 11/29/18 at 07:00 Acetaminophen/ Hydrocodone Bitart ([place] (5/325)) 1 tab Q6H PRN PO .MOD PAIN 4- 6 Last administered on 12/02/18at 11:08; Admin Dose 1 TAB; Start 11/29/18 at 07:00 Docusate Sodium (Colace) 100 mg Q12H PRN PO .CONSTIPATION; Start 11/29/18 at 07:00 Magnesium Hydroxide (Milk Of Mag) 30 ml DAILY PRN PO .CONSTIPATION; Start 11/29/18 at 07:00 Lorazepam (Ativan) 0.5 mg Q6H PRN IV ANXIETY; Start 11/29/18 at 07:00 Albuterol/ Ipratropium (Duoneb) 3 ml Q4H RESP THERAPY PRN HHN SHORTNESS OF BREATH; Start 11/29/18 at 07:00 Hydralazine HCl (Apresoline) 10 mg Q6H PRN IV for sys bp > 180; Start 11/29/18 at 07:00 Nitroglycerin (Nitroglycerin (Sl Tab) 0.4 Mg) 1 tab Q5M PRN SL ANGINA Last administered on 11/30/18 10:24; Admin Dose 1 TAB; Start 11/29/18 at 07:00 Amlodipine Besylate (Norvasc) 5 mg BID PO Last administered on 12/14/18 09:08; Admin Dose 5 MG; Start 11/30/18 at 09:00 Azathioprine (Imuran) 100 mg DAILY PO Last administered on 12/14/18 09:07; Admin Dose 100 MG; Start 11/30/18 at 09:00 Cyclobenzaprine HCl (Flexeril) 10 mg TID PO Last administered on 12/14/18 09:07; Admin Dose 10 MG; Start 11/30/18 at 09:00 Nadolol (Corgard) 20 mg BID PO Last administered on 12/13/18 09:33; Admin Dose 20 MG; Start 11/30/18 at 09:00 Tramadol HCl (Ultram) 50 mg Q4 PRN PO PAIN Last administered on 12/03/18 03:13; Admin Dose 50 MG; Start 11/30/18 at 00:00 Calcium/Vitamin D (Oyster Shell/ Vit-D (500/200)) 1 tab DAILY PO Last administered on 12/13/18 09:45; Admin Dose 1 TAB; Start 11/30/18 at 09:00 Sucralfate (Carafate Susp) 1 gm QID PO Last administered on 12/14/18 09:07; Admin Dose 1 GM; Start 11/30/18 at 09:00 Metoclopramide HCl (Reglan) 10 mg Q6H PRN IV nausae Last administered on 12/06/18 02:23; Admin Dose 10 MG; Start 11/30/18 at 11:00 Colchicine (Colchicine) 0.6 mg BID PO Last administered on 12/14/18 09:07; Admin Dose 0.6 MG; Start 11/30/18 at 12:30 Hydromorphone HCl (Dilaudid) 1 mg Q4H PRN IV SEVERE PAIN LEVEL 7-10 Last administered on 12/14/18 09:23; Admin Dose 1 MG; Start 12/02/18 at 12:30 Amylase/Lipase/ Protease (Creon ([id number])) 2 cap WITH MEALS PO Last administered on 12/14/18 09:07; Admin Dose 2 CAP; Start 12/02/18 at 18:00 Lactobacillus Acidophilus/ Rhamnosus (Culturelle) 1 cap WITH MEALS PO Last administered on 12/14/18 09:06; Admin Dose 1 CAP; Start 12/05/18 at 18:00 Pantoprazole (Protonix Tab) 40 mg BID@06,18 PO Last administered on 12/14/18 06:03; Admin Dose 40 MG; Start 12/05/18 at 18:00 Meropenem/Sodium Chloride 50 ml @ 100 mls/hr Q8H IVPB Last administered on 12/14/18 09:23; Admin Dose 100 MLS/HR; Start 12/07/18 at 01:30 Heparin Sodium (Porcine) (Heparin (1000 Units/ml)) 7,200 unit PER PROTOCOL PRN IV aPTT<47; Start 12/07/18 at 13:00 Heparin Sodium (Porcine) (Heparin (1000 Units/ml)) 3,600 unit PER PROTOCOL PRN IV aPTT<47-57; Start 12/07/18 at 13:00 Heparin Sodium (Porcine) 250 ml @ 16 mls/hr PER PROTOCOL IV Last administered on 12/14/18 09:18; Admin Dose 13 MLS/HR; Start 12/07/18 at 14:00 Methylprednisolone Sodium Succinate (Solu-Medrol) 10 mg BID IV Last administered on 12/14/18 09:09; Admin Dose 10 MG; Start 12/07/18 at 21:00 Diagnostic Test (Pha) (Accu-Chek) 1 ea Q4 XX ; Start 12/13/18 at 17:00 IV Flush (NS 10 ml) 10 ml Q8 PRN IV IV PROTOCOL; Start 12/13/18 at 21:30 Total Parenteral Nutrition 1,000 ml @ 80 mls/hr Q12H IV ; Start 12/14/18 at 16:00 MONIQUE DE LA ROSA Dec 14, 2018 12:34
--- NOTE | 2018-12-14 12:53 | CONS ---
Consult Date/Type/Reason Admit Date/Time Nov 29, 2018 at 06:15 Initial Consult Date 12/01/18 Type of Consultation: Rheumatology Date/Time of Note DATE: 12/14/18 TIME: 12:49 Subjective Abd pain is somewhat better and states can wait a little longer before asking for pain medication. Objective Vitals Vital Signs Date Temp Pulse Resp B/P (MAP) Pulse Ox O2 O2 Flow FiO2 Time Delivery Rate 12/14/18 98.1 56 16 120/65 96 07:55 (83) 12/12/18 Room Air 15:46 Intake and Output 12/13/18 12/13/18 12/14/18 1515:00 23:00 07:00 IntakeIntake Total 106 ml 266.8 ml BalanceBalance 106 ml 266.8 ml Exam GENERAL: Alert and oriented in no acute distress, SKIN: No rashes or new lesions. HEENT: No acute oral or ocular lesions. NECK: Supple. No lymphadenopathy. CARDIOVASCULAR: Regular rate and rhythm. LUNGS: Clear to auscultation bilaterally. No wheezing or rhonchi. ABDOMEN: Soft, mild epigastric tenderness. No rebound tenderness. Bowel sounds are present. EXTREMITIES: No Edema. Mild cyanosis fingers. MUSCULOSKELETAL: No synovitis Results/Medications Result Diagram: 12/14/18 0436 12/14/18 0435 Results 24 hrs Laboratory Tests Test 12/13/18 13:44 12/13/18 15:26 12/13/18 17:35 12/14/18 00:56 White Blood Count 11.8 H Red Blood Count 4.25 Hemoglobin 10.6 L Hematocrit 35.4 L Mean Corpuscular 83.3 Volume Mean Corpuscular 24.9 L Hemoglobin Mean Corpuscular 29.9 L Hemoglobin Concent Red Cell 18.0 H Distribution Width Platelet Count 440 H Mean Platelet Volume 10.3 Immature 0.800 H Granulocytes % Neutrophils % 90.5 H Lymphocytes % 2.0 L Monocytes % 5.9 Eosinophils % 0.7 Basophils % 0.1 Nucleated Red Blood 1.4 H Cells % Immature 0.090 H Granulocytes # Neutrophils # 10.7 H Lymphocytes # 0.2 L Monocytes # 0.7 Eosinophils # 0.1 Basophils # 0.0 Nucleated Red Blood 0.2 H Cells # Sodium Level 136 135 Potassium Level 4.3 4.4 Chloride Level 99 99 Carbon Dioxide Level 27 28 Anion Gap 10 8 Blood Urea Nitrogen 14 14 Creatinine 0.49 0.59 Est Glomerular > 60 > 60 Filtrat Rate mL/min Glucose Level 81 87 Calcium Level 9.2 9.5 Phosphorus Level 4.0 Magnesium Level 1.9 Total Bilirubin 1.1 Direct Bilirubin 0.00 Indirect Bilirubin 1.1 Aspartate Amino 28 Transf (AST/SGOT) Alanine 33 Aminotransferase (AL T/SGPT) Alkaline Phosphatase 111 Total Protein 6.7 Albumin 3.5 Globulin 3.20 Albumin/Globulin 1.09 Ratio Prealbumin 14.3 L Triglycerides Level 102 Activated 90.1 *H 103.6 *H Partial Thromboplast Time Test 12/14/18 04:35 12/14/18 04:36 12/14/18 07:51 Sodium Level 137 Potassium Level 4.2 Chloride Level 100 Carbon Dioxide Level 27 Anion Gap 10 Blood Urea Nitrogen 14 Creatinine 0.43 L Est Glomerular > 60 Filtrat Rate mL/min Glucose Level 87 Calcium Level 8.7 Phosphorus Level 4.1 Magnesium Level 1.9 White Blood Count 13.4 H Red Blood Count 3.76 L Hemoglobin 9.4 L Hematocrit 30.9 L Mean Corpuscular 82.2 Volume Mean Corpuscular 25.0 L Hemoglobin Mean Corpuscular 30.4 L Hemoglobin Concent Red Cell 18.1 H Distribution Width Platelet Count 322 # Mean Platelet Volume 10.8 H Immature 0.900 H Granulocytes % Neutrophils % 87.4 H Lymphocytes % 2.7 L Monocytes % 8.7 Eosinophils % 0.2 Basophils % 0.1 Nucleated Red Blood 1.1 H Cells % Immature 0.120 H Granulocytes # Neutrophils # 11.7 H Lymphocytes # 0.4 L Monocytes # 1.2 H Eosinophils # 0.0 Basophils # 0.0 Nucleated Red Blood 0.2 H Cells # Activated 100.5 *H Partial Thromboplast Time Home Meds Active Scripts Cyclobenzaprine Hcl* (Cyclobenzaprine Hcl*) 10 Mg Tablet, 10 MG PO TID, #15 TAB Prov:MICKY CHAN MD 11/26/18 Tramadol HCl (Tramadol HCl) 50 Mg Tablet, 50 MG PO Q4 PRN for PAIN, #20 TAB Prov:MICKY CHAN MD 11/26/18 Ondansetron Hcl* (Zofran*) 8 Mg Tablet, 8 MG PO Q6H PRN for NAUSEA AND OR VOMITING, #20 TAB Prov:JENNY RAWLS MD 11/20/18 Levofloxacin* (Levaquin*) 750 Mg Tablet, 750 MG PO DAILY for 7 Days, TAB Prov:JENNY RAWLS MD 11/20/18 Sucralfate* (Carafate*) 1 Gm/10 Ml Susp, 1 GM PO QID for 30 Days, #1 EA 2 Re fills Prov:LIUDMILA DUMONT MD 11/17/18 Metoclopramide Hcl* (Metoclopramide Hcl*) 10 Mg Tablet, 10 MG PO QID for 10 Days, #40 TAB Prov:LIUDMILA DUMONT MD 11/17/18 Acetaminophen* (Tylenol*) 325 Mg Tablet, 650 MG PO Q6H PRN for .PAIN 1-3 OR TEMP for 1 Day, TAB Prov:LIUDMILA DUMONT MD 11/17/18 Nadolol (Corgard) 40 Mg Tablet, 20 MG PO BID for 15 Days, #30 TAB Prov:LIUDMILA DUMONT MD 11/17/18 Pantoprazole* (Pantoprazole*) 40 Mg Tablet.dr, 40 MG PO BID@06,18 for 30 Days, #60 TAB 1 Refill Prov:LIUDMILA DUMONT MD 11/17/18 Reported Medications Amlodipine Besylate* (Amlodipine Besylate*) 10 Mg Tablet, 5 MG PO BID, #30 TAB 11/29/18 Calcium Carbonate/Vitamin D3 (Calcium 500 mg Chewable Tablet) 1 Each Tab.chew, 1 EACH PO DAILY, TAB.CHEW 11/14/18 Prednisone* (Prednisone*) 5 Mg Tab, 5 MG PO DAILY, TAB 11/14/18 Azathioprine* (Imuran*) 50 Mg Tab, 100 MG PO DAILY, TAB 11/14/18 Ergocalciferol (Vitamin D2) (VITAMIN D2) 50,000 Unit Capsule, 08813 UNIT PO QMONDAY 09/22/18 Medications Current Medications IV Flush (NS 3 ml) 3 ml PER PROTOCOL IV ; Start 11/29/18 at 07:00 Ondansetron HCl (Zofran Inj) 4 mg Q6H PRN IV NAUSEA/VOMITING Last administered on 12/14/18at 09:23; Admin Dose 4 MG; Start 11/29/18 at 07:00 Acetaminophen (Tylenol Tab) 650 mg Q6H PRN PO .PAIN 1-3 OR TEMP; Start 11/29/18 at 07:00 Acetaminophen/ Hydrocodone Bitart ([address] (5/325)) 1 tab Q6H PRN PO .MOD PAIN 4- 6 Last administered on 12/02/18 11:08; Admin Dose 1 TAB; Start 11/29/18 at 07:00 Docusate Sodium (Colace) 100 mg Q12H PRN PO .CONSTIPATION; Start 11/29/18 at 07:00 Magnesium Hydroxide (Milk Of Mag) 30 ml DAILY PRN PO .CONSTIPATION; Start 11/29/18 at 07:00 Lorazepam (Ativan) 0.5 mg Q6H PRN IV ANXIETY; Start 11/29/18 at 07:00 Albuterol/ Ipratropium (Duoneb) 3 ml Q4H RESP THERAPY PRN HHN SHORTNESS OF BREATH; Start 11/29/18 at 07:00 Hydralazine HCl (Apresoline) 10 mg Q6H PRN IV for sys bp > 180; Start 11/29/18 at 07:00 Nitroglycerin (Nitroglycerin (Sl Tab) 0.4 Mg) 1 tab Q5M PRN SL ANGINA Last administered on 11/30/18 10:24; Admin Dose 1 TAB; Start 11/29/18 at 07:00 Amlodipine Besylate (Norvasc) 5 mg BID PO Last administered on 12/14/18 09:08; Admin Dose 5 MG; Start 11/30/18 at 09:00 Azathioprine (Imuran) 100 mg DAILY PO Last administered on 12/14/18 09:07; Ad min Dose 100 MG; Start 11/30/18 at 09:00 Cyclobenzaprine HCl (Flexeril) 10 mg TID PO Last administered on 12/14/18 12:24; Admin Dose 10 MG; Start 11/30/18 at 09:00 Nadolol (Corgard) 20 mg BID PO Last administered on 12/13/18 09:33; Admin Dose 20 MG; Start 11/30/18 at 09:00 Tramadol HCl (Ultram) 50 mg Q4 PRN PO PAIN Last administered on 12/03/18 03:13; Admin Dose 50 MG; Start 11/30/18 at 00:00 Calcium/Vitamin D (Oyster Shell/ Vit-D (500/200)) 1 tab DAILY PO Last administered on 12/14/18 12:24; Admin Dose 1 TAB; Start 11/30/18 at 09:00 Sucralfate (Carafate Susp) 1 gm QID PO Last administered on 12/14/18 12:24; Admin Dose 1 GM; Start 11/30/18 at 09:00 Metoclopramide HCl (Reglan) 10 mg Q6H PRN IV nausae Last administered on 12/06/18 02:23; Admin Dose 10 MG; Start 11/30/18 at 11:00 Colchicine (Colchicine) 0.6 mg BID PO Last administered on 12/14/18 09:07; Admin Dose 0.6 MG; Start 11/30/18 at 12:30 Hydromorphone HCl (Dilaudid) 1 mg Q4H PRN IV SEVERE PAIN LEVEL 7-10 Last administered on 12/14/18 09:23; Admin Dose 1 MG; Start 12/02/18 at 12:30 Amylase/Lipase/ Protease (Creon ([id number])) 2 cap WITH MEALS PO Last administered on 12/14/18 09:07; Admin Dose 2 CAP; Start 12/02/18 at 18:00 Lactobacillus Acidophilus/ Rhamnosus (Culturelle) 1 cap WITH MEALS PO Last administered on 12/14/18 09:06; Admin Dose 1 CAP; Start 12/05/18 at 18:00 Pantoprazole (Protonix Tab) 40 mg BID@06,18 PO Last administered on 12/14/18 06:03; Admin Dose 40 MG; Start 12/05/18 at 18:00 Meropenem/Sodium Chloride 50 ml @ 100 mls/hr Q8H IVPB Last administered on 12/14/18 09:23; Admin Dose 100 MLS/HR; Start 12/07/18 at 01:30 Heparin Sodium (Porcine) (Heparin (1000 Units/ml)) 7,200 unit PER PROTOCOL PRN IV aPTT<47; Start 12/07/18 at 13:00 Heparin Sodium (Porcine) (Heparin (1000 Units/ml)) 3,600 unit PER PROTOCOL PRN IV aPTT<47-57; Start 12/07/18 at 13:00 Heparin Sodium (Porcine) 250 ml @ 16 mls/hr PER PROTOCOL IV Last administered on 12/14/18at 09:18; Admin Dose 13 MLS/HR; Start 12/07/18 at 14:00 Methylprednisolone Sodium Succinate (Solu-Medrol) 10 mg BID IV Last administered on 12/14/18at 09:09; Admin Dose 10 MG; Start 12/07/18 at 21:00 Diagnostic Test (Pha) (Accu-Chek) 1 ea Q4 XX ; Start 12/13/18 at 17:00 IV Flush (NS 10 ml) 10 ml Q8 PRN IV IV PROTOCOL; Start 12/13/18 at 21:30 Total Parenteral Nutrition 1,000 ml @ 80 mls/hr Q12H IV ; Start 12/14/18 at 16:00 Assessment/Plan Hospital Course (Demo Recall) Assessment/ Plan: 1. Probable pneumonia Improving. 2.. Lupus flare possibly. Agree with decreasing steroids as clinically improving. Decrease Solumedrol to 10 mg BID 3.. 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 Repeat an echo per cardiology. Continue the colchicine 0.6 b.i.d. 4.. Pancreatitis. The patient seems to be improving. 5.. Pleural effusion. Appears to be more consistent with infection rather than Lupus flare, per Pulmonary. 6. Cirrhosis with esophageal varices. LFTs are within normal limits. We will just continue to follow. 7. Raynaud's syndrome, status post finger amputation. Raynaud's precautions. 8. 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 The pneumatosis this is an acute mesenteric ischemia, it is a venous occlusion, not arterial. It is not surgical. It needs long-term anticoagulation. She may need partial bowel resection. The thrombosis is not uncommonly seen after splenectomy and also with cirrhosis and she will need lifelong anticoagulation once she has recovered from this episode. -abx: Id is following -judicious fluids -N.p.o. -Close monitoring - LILY AGRAWAL MD Dec 14, 2018 12:53
[2018-12-14 16:19] VITALS: BP 124/73; PULSE 58; RESP 17
[2018-12-14] MEDS: TPN 1,000 ML IV SCH (16:31)
[2018-12-14 19:45] VITALS: BP 118/66; PULSE 64; RESP 16
[2018-12-15] MEDS: ACCU-CHEK XX SCH ×6 (01:15→21:00)
[2018-12-15] MEDS: MEROPENEM 1 GM/50ML(PMX) 50 ML IVPB SCH ×3 (01:15→17:53)
[2018-12-15 01:57] VITALS: BP 117/74; PULSE 66; RESP 16
[2018-12-15] MEDS: HYDROmorphONE 1 MG/ML SYG IV PRN ×3 (04:08→21:20)
[2018-12-15] MEDS: TPN 1,000 ML IV SCH ×2 (04:10→17:53)
[2018-12-15] MEDS: PANTOPRAZOLE (EC) 40 MG TAB PO SCH ×2 (06:15→17:52)
[2018-12-15] MEDS: HEPARIN 25000 UNITS/250 ML 250 ML IV SCH (06:31)
[2018-12-15 07:41] VITALS: BP 119/69; PULSE 55; RESP 14
[2018-12-15] MEDS: METHYLPREDNISOLONE 40 MG INJ IV SCH ×2 (08:57→21:18)
[2018-12-15] MEDS: CYCLOBENZAPRINE 10 MG TAB PO SCH ×3 (08:58→21:19)
[2018-12-15] MEDS: LACTOBACILLUS RHAMNOSUS CAP PO SCH ×3 (08:58→17:52)
[2018-12-15] MEDS: COLCHICINE 0.6 MG TAB PO SCH ×2 (08:58→21:19)
[2018-12-15] MEDS: CREON (24K-76K-120K) 1 CAP PO SCH ×3 (08:58→17:52)
[2018-12-15] MEDS: AZATHIOPRINE 50 MG TAB PO SCH (08:58)
[2018-12-15] MEDS: SUCRALFATE (100 MG/ML) 10ML CUP PO SCH ×4 (08:58→21:18)
[2018-12-15] MEDS: CALCIUM/VITAMIN D (500/200) TAB PO SCH (08:58)
[2018-12-15] MEDS: NADOLOL 40 MG TAB PO SCH ×2 (08:59→21:19)
[2018-12-15] MEDS: AMLODIPINE 10 MG TAB PO SCH ×2 (08:59→21:19)
--- NOTE | 2018-12-15 10:01 | PN ---
Date/Time of Note Date/Time of Note DATE: 12/15/18 TIME: 09:58 Assessment/Plan VTE Prophylaxis Risk score (from Nsg)>0 risk: 2 SCD applied (from Nsg): No SCD contraindicated: other (scds) Pharmacological prophylaxis: heparin Lines/Catheters IV Catheter Type (from Nrsg): PICC Line Central line still needed: Yes (TPN) Urinary Cath still in place: No Assessment/Plan Hospital Course Assessment/Plan Assessment: Epigastric pain-with radiation to left upper quadrant and left flank/back- -CT is concerning for pancreatitis, however lipase and amylase WNL -Repeat abdominal CT on 12/06/2018 showed pneumatosis intestinalis of the right colon and hepatic flexure, raising concerning for bowel ischemia with a several foci of free air in the right lower quadrant worrisome for microperforation of the right colon. -Repeat Ct scan 12/13/18-There is continued interval progression of colonic pneumatosis involving the proximal colon again suggestive for gangrenous bowel. There is generalized small and large bowel wall thickening with more pronounced involvement of the colon that could represent third spacing of fluid versus colitis. There is pronounced diffuse intrahepatic portal vein thrombus along with thrombosis of t he entirety of the main portal vein, portal confluence, splenic vein and the majority of the superior mesenteric vein. Residual patent mesenteric veins are seen along with cavernous transformation of the portal vein and the presence of portal venous collateral vessels. 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 -Pt consulted by vascular sx -Currently on anti-coagulation Left pleural effusion Diarrhea -Stool Cx- coliform Pericardial effusion, moderate -Echocardiogram - Small to borderline moderate circumferential pericardial effusion without evidence of tamponade. EF 55% Normocytic Anemia Recent History Hematemesis EGD 11/15/2018 Extensive ulceration of the distal esophagus, rule out opportunistic infection, biopsies obtained. Grade II/IV esophageal varices. No stigmata of recent bleeding. No therapeutic intervention required Mild gastritis versus portal gastropathy, Otherwise normal EGD Stomach biopsy negative for H. pylori infection, no evidence of intestinal metaplasia, dysplasia, or malignancy Esophageal ulcer biopsy mucosa showing moderate chronic inflammation no squamous mucosa is present. No goblet cells are identified, no H. pylori is identified, no evidence of dysplasia or malignancy SLE/Rheumatoid arthritis/Raynaud's syndrome -On prednisone. History of Splenectomy Depression HTN Hx of EGD/colonoscopy 09/26/18 Colonoscopy 09/26/2018colitis more significant in the area of the rectum moderate size internal hemorrhoidsbiopsy negative for evidence of colitis EGD grade II/IV esophageal varices, severe gastritisbiopsies negative for H. pylori Liver cirrhosis- with hx of EV -Hepatitis serology negative -ASMA,AMA- negative Thrombocytosis- resolved Status post finger amputation secondary to Raynaud's syndrome Leukocytosis Plan: Surgery/Vascular recommend transfer to tertiary center for possible thrombectomy/revascularization, which will need to be completed prior to surgical intervention Awaiting transfer Continue TPN Continue supportive care Patient seen in collaboration with Subjective: Course reviewed with nursing staff Patient interviewed and examined All labs, imaging and other results reviewed Pt currently sleeping in bed, will allow to rest x2 BM over night. No overt signs of GI bleed. HGB stable Pain management. awaiting transfer. Exam PHYSICAL EXAMINATION: GENERAL: Chronically ill appearing young woman, alert & oriented x 3, edema/swelling from chronic steroid use- improved SKIN: No lesions. HEAD: Normocephalic, atraumatic, no tenderness. EYES: Pupils equal reactive to light, no discharge. EARS/NOSE AND THROAT: Ears normal, nose normal. NECK: Supple, no masses, thyroid normal. CHEST: Inspection within normal limits. CARDIOVASCULAR: Heart: Regular rate and rhythm RESPIRATORY: Lungs clear to auscultation. GASTROINTESTINAL AND LIVER: Abdomen: obese, soft, epigastric tenderness, non- distended, no hernias, no masses, normoactive bowel sounds. Rectal: Deferred. EXTREMITIES: No cyanosis, clubbing or edema. Right index finger amputated 1 phalanx Result Diagram: 12/15/1844112/15/18441 Results 24hrs Laboratory Tests Test 12/14/18 13:50 12/14/18 16:38 12/14/18 20:00 12/14/18 21:31 Activated 75.0 *H 82.2 *H Partial Thromboplast Time Bedside Glucose 90 117 Test 12/15/18 01:15 12/15/18 04:39 12/15/18 04:42 12/15/18 04:43 Bedside Glucose 151 150 White Blood Count 15.4 H Red Blood Count 3.77 L Hemoglobin 9.5 L Hematocrit 31.3 L Mean Corpuscular 83.0 Volume Mean Corpuscular 25.2 L Hemoglobin Mean Corpuscular 30.4 L Hemoglobin Concent Red Cell 17.6 H Distribution Width Platelet Count 285 Mean Platelet Volume 10.9 H Immature 1.200 H Granulocytes % Neutrophils % 83.9 H Lymphocytes % 1.2 L Monocytes % 13.4 H Eosinophils % 0.2 Basophils % 0.1 Nucleated Red Blood 1.3 H Cells % Immature 0.180 H Granulocytes # Neutrophils # 13.0 H Lymphocytes # 0.2 L Monocytes # 2.1 H Eosinophils # 0.0 Basophils # 0.0 Nucleated Red Blood 0.2 H Cells # Erythrocyte 1 Sedimentation Rate Sodium Level 139 Potassium Level 4.0 Chloride Level 101 Carbon Dioxide Level 28 Anion Gap 10 Blood Urea Nitrogen 18 Creatinine 0.47 Est Glomerular > 60 Filtrat Rate mL/min Glucose Level 140 # Calcium Level 8.9 Phosphorus Level 2.8 Magnesium Level 2.0 Total Bilirubin 1.1 Direct Bilirubin 0.00 Indirect Bilirubin 1.1 Aspartate Amino 25 Transf (AST/SGOT) Alanine 25 Aminotransferase (AL T/SGPT) Alkaline Phosphatase 81 Total Protein 6.3 Albumin 3.1 L Globulin 3.20 Albumin/Globulin 0.96 Ratio Activated 38.0 H Partial Thromboplast Time Lactic Acid Level 1.6 Test 12/15/18 09:01 Bedside Glucose 167 Exam/Review of Systems Exam Vitals Vital Signs Date Temp Pulse Resp B/P (MAP) Pulse Ox O2 O2 Flow FiO2 Time Delivery Rate 12/15/18 98.5 55 14 119/69 97 Room Air 07:41 (86) Intake and Output 12/14/18 12/14/18 12/15/18 1515:00 23:00 07:00 IntakeIntake Total 83.2 ml 90 ml 1260 ml BalanceBalance 83.2 ml 90 ml 1260 ml Results Results 24hrs Laboratory Tests Test 12/14/18 13:50 12/14/18 16:38 12/14/18 20:00 12/14/18 21:31 Activated 75.0 *H 82.2 *H Partial Thromboplast Time Bedside Glucose 90 117 Test 12/15/18 01:15 12/15/18 04:39 12/15/18 04:42 12/15/18 04:43 Bedside Glucose 151 150 White Blood Count 15.4 H Red Blood Count 3.77 L Hemoglobin 9.5 L Hematocrit 31.3 L Mean Corpuscular 83.0 Volume Mean Corpuscular 25.2 L Hemoglobin Mean Corpuscular 30.4 L Hemoglobin Concent Red Cell 17.6 H Distribution Width Platelet Count 285 Mean Platelet Volume 10.9 H Immature 1.200 H Granulocytes % Neutrophils % 83.9 H Lymphocytes % 1.2 L Monocytes % 13.4 H Eosinophils % 0.2 Basophils % 0.1 Nucleated Red Blood 1.3 H Cells % Immature 0.180 H Granulocytes # Neutrophils # 13.0 H Lymphocytes # 0.2 L Monocytes # 2.1 H Eosinophils # 0.0 Basophils # 0.0 Nucleated Red Blood 0.2 H Cells # Erythrocyte 1 Sedimentation Rate Sodium Level 139 Potassium Level 4.0 Chloride Level 101 Carbon Dioxide Level 28 Anion Gap 10 Blood Urea Nitrogen 18 Creatinine 0.47 Est Glomerular > 60 Filtrat Rate mL/min Glucose Level 140 # Calcium Level 8.9 Phosphorus Level 2.8 Magnesium Level 2.0 Total Bilirubin 1.1 Direct Bilirubin 0.00 Indirect Bilirubin 1.1 Aspartate Amino 25 Transf (AST/SGOT) Alanine 25 Aminotransferase (AL T/SGPT) Alkaline Phosphatase 81 Total Protein 6.3 Albumin 3.1 L Globulin 3.20 Albumin/Globulin 0.96 Ratio Activated 38.0 H Partial Thromboplast Time Lactic Acid Level 1.6 Test 12/15/18 09:01 Bedside Glucose 167 Medications Medication Current Medications IV Flush (NS 3 ml) 3 ml PER PROTOCOL IV ; Start 11/29/18 at 07:00 Ondansetron HCl (Zofran Inj) 4 mg Q6H PRN IV NAUSEA/VOMITING Last administered on 12/14/18at 16:31; Admin Dose 4 MG; Start 11/29/18 at 07:00 Acetaminophen (Tylenol Tab) 650 mg Q6H PRN PO .PAIN 1-3 OR TEMP; Start 11/29/18 at 07:00 Acetaminophen/ Hydrocodone Bitart ([place] (5/325)) 1 tab Q6H PRN PO .MOD PAIN 4- 6 Last administered on 12/02/18at 11:08; Admin Dose 1 TAB; Start 11/29/18 at 07:00 Docusate Sodium (Colace) 100 mg Q12H PRN PO .CONSTIPATION; Start 11/29/18 at 07:00 Magnesium Hydroxide (Milk Of Mag) 30 ml DAILY PRN PO .CONSTIPATION; Start 11/29/18 at 07:00 Lorazepam (Ativan) 0.5 mg Q6H PRN IV ANXIETY; Start 11/29/18 at 07:00 Albuterol/ Ipratropium (Duoneb) 3 ml Q4H RESP THERAPY PRN HHN SHORTNESS OF BREATH; Start 11/29/18 at 07:00 Hydralazine HCl (Apresoline) 10 mg Q6H PRN IV for sys bp > 180; Start 11/29/18 at 07:00 Nitroglycerin (Nitroglycerin (Sl Tab) 0.4 Mg) 1 tab Q5M PRN SL ANGINA Last administered on 11/30/18 10:24; Admin Dose 1 TAB; Start 11/29/18 at 07:00 Amlodipine Besylate (Norvasc) 5 mg BID PO Last administered on 12/15/18 08:59; Admin Dose 5 MG; Start 11/30/18 at 09:00 Azathioprine (Imuran) 100 mg DAILY PO Last administered on 12/15/18 08:58; Admin Dose 100 MG; Start 11/30/18 at 09:00 Cyclobenzaprine HCl (Flexeril) 10 mg TID PO Last administered on 12/15/18 08:58; Admin Dose 10 MG; Start 11/30/18 at 09:00 Nadolol (Corgard) 20 mg BID PO Last administered on 12/14/18 21:34; Admin Dose 20 MG; Start 11/30/18 at 09:00 Tramadol HCl (Ultram) 50 mg Q4 PRN PO PAIN Last administered on 12/03/18 03:13; Admin Dose 50 MG; Start 11/30/18 at 00:00 Calcium/Vitamin D (Oyster Shell/ Vit-D (500/200)) 1 tab DAILY PO Last administered on 12/15/18 08:58; Admin Dose 1 TAB; Start 11/30/18 at 09:00 Sucralfate (Carafate Susp) 1 gm QID PO Last administered on 12/15/18 08:58; Admin Dose 1 GM; Start 11/30/18 at 09:00 Metoclopramide HCl (Reglan) 10 mg Q6H PRN IV nausae Last administered on 12/06/18 02:23; Admin Dose 10 MG; Start 11/30/18 at 11:00 Colchicine (Colchicine) 0.6 mg BID PO Last administered on 12/15/18 08:58; Admin Dose 0.6 MG; Start 11/30/18 at 12:30 Hydromorphone HCl (Dilaudid) 1 mg Q4H PRN IV SEVERE PAIN LEVEL 7-10 Last administered on 12/15/18 04:08; Admin Dose 1 MG; Start 12/02/18 at 12:30 Amylase/Lipase/ Protease (Creon (15h-30o-025c)) 2 cap WITH MEALS PO Last administered on 12/15/18 08:58; Admin Dose 2 CAP; Start 12/02/18 at 18:00 Lactobacillus Acidophilus/ Rhamnosus (Culturelle) 1 cap WITH MEALS PO Last administered on 12/15/18 08:58; Admin Dose 1 CAP; Start 12/05/18 at 18:00 Pantoprazole (Protonix Tab) 40 mg BID@06,18 PO Last administered on 12/15/18 06:15; Admin Dose 40 MG; Start 12/05/18 at 18:00 Meropenem/Sodium Chloride 50 ml @ 100 mls/hr Q8H IVPB Last administered on 11/27 08:57; Admin Dose 100 MLS/HR; Start 12/07/18 at 01:30 Heparin Sodium (Porcine) (Heparin (1000 Units/ml)) 7,200 unit PER PROTOCOL PRN IV aPTT<47 Last administered on 12/15/18 06:36; Admin Dose 6,400 UNIT; Start 12/07/18 at 13:00 Heparin Sodium (Porcine) (Heparin (1000 Units/ml)) 3,600 unit PER PROTOCOL PRN IV aPTT<47-57; Start 12/07/18 at 13:00 Heparin Sodium (Porcine) 250 ml @ 16 mls/hr PER PROTOCOL IV Last administered on 12/15/18 06:31; Admin Dose 16 MLS/HR; Start 12/07/18 at 14:00 Methylprednisolone Sodium Succinate (Solu-Medrol) 10 mg BID IV Last administered on 12/15/18 08:57; Admin Dose 10 MG; Start 12/07/18 at 21:00 Diagnostic Test (Pha) (Accu-Chek) 1 ea Q4 XX Last administered on 12/15/18 04:49; Admin Dose 1 EA; Start 12/13/18 at 17:00 IV Flush (NS 10 ml) 10 ml Q8 PRN IV IV PROTOCOL; Start 12/13/18 at 21:30 Total Parenteral Nutrition 1,000 ml @ 80 mls/hr Q12H IV Last administered on 12/15/18at 04:10; Admin Dose 80 MLS/HR; Start 12/14/18 at 16:00 MONIQUE DE LA ROSA Dec 15, 2018 10:01
--- NOTE | 2018-12-15 10:36 | PN ---
Date/Time of Note Date/Time of Note DATE: 12/15/18 TIME: 10:32 Assessment/Plan VTE Prophylaxis Risk score (from Ns)>0 risk: 2 [place] [facility] [place] SCD contraindicated: other Pharmacological prophylaxis: heparin Lines/Catheters IV [facility] Type (from [facility] P[facility] Line Urinary Cath still in place: No Assessment/Plan Hospital Course Assessment and plan 1. Abdominal pain -CT scan of the abdomen showing acute pancreatitis (November 29, 2018) -Repeat CT scan of the abdomen on December 06, 2018 showed pneumatosis intestinalis of the right colon and hepatic flexure with suspicion of bowel ischemia with several foci of free air in the right lower quadrant worrisome for microperforation of the right colon. - Continue abx treatment. -repeat CT scan of the abdomen with IV and oral contrast 12/12/18: continued interval progression of colonic pneumatosis involving the proximal colon again suggestive for gangrenous bowel. There is generalized small and large bowel wall thickening with more pronounced involvement of the colon that could represent third spacing of fluid versus colitis - f/u surgeon recommendations 2. 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 Acute pancreatitis -Continue on Creon GI consult is following 4.Lupus flare -[employer] following -On steroid medication 5. Chronic liver cirrhosis with history of esophageal varices -Remains on beta-tavon 6. 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 Hx Raynaud's Syndrome - hx right mid finger amputation - continue precuations 9. Obesity - Weight reduction was advised Disposition and plan.. Discussed with care team, plan for transfer to tertiary care center for possible TIPPS procedure and/or portal vein thrombectomy. f/u case management. check AM labs. continue with analgesics. Discussed POC with Dr. Noriega Result Diagram: 12/15/1844112/15/18441 Results 24hrs Laboratory Tests Test 12/14/18 13:50 12/14/18 16:38 12/14/18 20:00 12/14/18 21:31 Activated 75.0 *H 82.2 *H Partial Thromboplast Time Bedside Glucose 90 117 Test 12/15/18 01:15 12/15/18 04:39 12/15/18 04:42 12/15/18 04:43 Bedside Glucose 151 150 White Blood Count 15.4 H Red Blood Count 3.77 L Hemoglobin 9.5 L Hematocrit 31.3 L Mean Corpuscular 83.0 Volume Mean Corpuscular 25.2 L Hemoglobin Mean Corpuscular 30.4 L Hemoglobin Concent Red Cell 17.6 H Distribution Width Platelet Count 285 Mean Platelet Volume 10.9 H Immature 1.200 H Granulocytes % Neutrophils % 83.9 H Lymphocytes % 1.2 L Monocytes % 13.4 H Eosinophils % 0.2 Basophils % 0.1 Nucleated Red Blood 1.3 H Cells % Immature 0.180 H Granulocytes # Neutrophils # 13.0 H Lymphocytes # 0.2 L Monocytes # 2.1 H Eosinophils # 0.0 Basophils # 0.0 Nucleated Red Blood 0.2 H Cells # Erythrocyte 1 Sedimentation Rate Sodium Level 139 Potassium Level 4.0 Chloride Level 101 Carbon Dioxide Level 28 Anion Gap 10 Blood Urea Nitrogen 18 Creatinine 0.47 Est Glomerular > 60 Filtrat Rate mL/min Glucose Level 140 # Calcium Level 8.9 Phosphorus Level 2.8 Magnesium Level 2.0 Total Bilirubin 1.1 Direct Bilirubin 0.00 Indirect Bilirubin 1.1 Aspartate Amino 25 Transf (AST/SGOT) Alanine 25 Aminotransferase (AL T/SGPT) Alkaline Phosphatase 81 Total Protein 6.3 Albumin 3.1 L Globulin 3.20 Albumin/Globulin 0.96 Ratio Activated 38.0 H Partial Thromboplast Time Lactic Acid Level 1.6 Test 12/15/18 09:01 Bedside Glucose 167 Subjective 24 Hr Interval Summary Free Text/Dictation still reports epigastric pain that goes to the left Exam/Review of Systems Exam Vitals Vital Signs Date Temp Pulse Resp B/P (MAP) Pulse Ox O2 O2 Flow FiO2 Time Delivery Rate 12/15/18 98.5 55 14 119/69 97 Room Air 07:41 (86) Intake and Output 12/14/18 12/14/18 12/15/18 1515:00 23:00 07:00 IntakeIntake Total 83.2 ml 90 ml 1260 ml BalanceBalance 83.2 ml 90 ml 1260 ml Exam Constitutional: alert, oriented Psych: nl mood/affect Head: normocephalic Neck: supple, non-tender Respiratory: clear to auscultation Cardiovascular: regular rate and rhythm Gastrointestinal: tender Musculoskeletal: nl extremities to inspection Neurological: MULTINEEDLE SHIRRER II-XII intact, nl mental status, nl speech Skin: nl turgor Results Results 24hrs Laboratory Tests Test 12/14/18 13:50 12/14/18 16:38 12/14/18 20:00 12/14/18 21:31 Activated 75.0 *H 82.2 *H Partial Thromboplast Time Bedside Glucose 90 117 Test 12/15/18 01:15 12/15/18 04:39 12/15/18 04:42 12/15/18 04:43 Bedside Glucose 151 150 White Blood Count 15.4 H Red Blood Count 3.77 L Hemoglobin 9.5 L Hematocrit 31.3 L Mean Corpuscular 83.0 Volume Mean Corpuscular 25.2 L Hemoglobin Mean Corpuscular 30.4 L Hemoglobin Concent Red Cell 17.6 H Distribution Width Platelet Count 285 Mean Platelet Volume 10.9 H Immature 1.200 H Granulocytes % Neutrophils % 83.9 H Lymphocytes % 1.2 L Monocytes % 13.4 H Eosinophils % 0.2 Basophils % 0.1 Nucleated Red Blood 1.3 H Cells % Immature 0.180 H Granulocytes # Neutrophils # 13.0 H Lymphocytes # 0.2 L Monocytes # 2.1 H Eosinophils # 0.0 Basophils # 0.0 Nucleated Red Blood 0.2 H Cells # Erythrocyte 1 Sedimentation Rate Sodium Level 139 Potassium Level 4.0 Chloride Level 101 Carbon Dioxide Level 28 Anion Gap 10 Blood Urea Nitrogen 18 Creatinine 0.47 Est Glomerular > 60 Filtrat Rate mL/min Glucose Level 140 # Calcium Level 8.9 Phosphorus Level 2.8 Magnesium Level 2.0 Total Bilirubin 1.1 Direct Bilirubin 0.00 Indirect Bilirubin 1.1 Aspartate Amino 25 Transf (AST/SGOT) Alanine 25 Aminotransferase (AL T/SGPT) Alkaline Phosphatase 81 Total Protein 6.3 Albumin 3.1 L Globulin 3.20 Albumin/Globulin 0.96 Ratio Activated 38.0 H Partial Thromboplast Time Lactic Acid Level 1.6 Test 12/15/18 09:01 Bedside Glucose 167 Medications Medication Current Medications IV Flush (NS 3 ml) 3 ml PER PROTOCOL IV ; Start 11/29/18 at 07:00 Ondansetron HCl (Zofran Inj) 4 mg Q6H PRN IV NAUSEA/VOMITING Last administered on 12/14/18at 16:31; Admin Dose 4 MG; Start 11/29/18 at 07:00 Acetaminophen (Tylenol Tab) 650 mg Q6H PRN PO .PAIN 1-3 OR TEMP; Start 11/29/18 at 07:00 Acetaminophen/ Hydrocodone Bitart ([place] (5/325)) 1 tab Q6H PRN PO .MOD PAIN 4- 6 Last administered on 12/02/18 11:08; Admin Dose 1 TAB; Start 11/29/18 at 07:00 Docusate Sodium (Colace) 100 mg Q12H PRN PO .CONSTIPATION; Start 11/29/18 at 07:00 Magnesium Hydroxide (Milk Of Mag) 30 ml DAILY PRN PO .CONSTIPATION; Start 11/29/18 at 07:00 Lorazepam (Ativan) 0.5 mg Q6H PRN IV ANXIETY; Start 11/29/18 at 07:00 Albuterol/ Ipratropium (Duoneb) 3 ml Q4H RESP THERAPY PRN HHN SHORTNESS OF BREATH; Start 11/29/18 at 07:00 Hydralazine HCl (Apresoline) 10 mg Q6H PRN IV for sys bp > 180; Start 11/29/18 at 07:00 Nitroglycerin (Nitroglycerin (Sl Tab) 0.4 Mg) 1 tab Q5M PRN SL ANGINA Last administered on 11/30/18 10:24; Admin Dose 1 TAB; Start 11/29/18 at 07:00 Amlodipine Besylate (Norvasc) 5 mg BID PO Last administered on 12/15/18 08:59; Admin Dose 5 MG; Start 11/30/18 at 09:00 Azathioprine (Imuran) 100 mg DAILY PO Last administered on 12/15/18 08:58; Admin Dose 100 MG; Start 11/30/18 at 09:00 Cyclobenzaprine HCl (Flexeril) 10 mg TID PO Last administered on 12/15/18 08:58; Admin Dose 10 MG; Start 11/30/18 at 09:00 Nadolol (Corgard) 20 mg BID PO Last administered on 12/14/18 21:34; Admin Dose 20 MG; Start 11/30/18 at 09:00 Tramadol HCl (Ultram) 50 mg Q4 PRN PO PAIN Last administered on 12/03/18 03:13; Admin Dose 50 MG; Start 11/30/18 at 00:00 Calcium/Vitamin D (Oyster Shell/ Vit-D (500/200)) 1 tab DAILY PO Last administered on 12/15/18 08:58; Admin Dose 1 TAB; Start 11/30/18 at 09:00 Sucralfate (Carafate Susp) 1 gm QID PO Last administered on 12/15/18 08:58; Admin Dose 1 GM; Start 11/30/18 at 09:00 Metoclopramide HCl (Reglan) 10 mg Q6H PRN IV nausae Last administered on 12/06/18 02:23; Admin Dose 10 MG; Start 11/30/18 at 11:00 Colchicine (Colchicine) 0.6 mg BID PO Last administered on 12/15/18 08:58; Admin Dose 0.6 MG; Start 11/30/18 at 12:30 Hydromorphone HCl (Dilaudid) 1 mg Q4H PRN IV SEVERE PAIN LEVEL 7-10 Last administered on 12/15/18 04:08; Admin Dose 1 MG; Start 12/02/18 at 12:30 Amylase/Lipase/ Protease (Creon ([id number])) 2 cap WITH MEALS PO Last administered on 12/15/18 08:58; Admin Dose 2 CAP; Start 12/02/18 at 18:00 Lactobacillus Acidophilus/ Rhamnosus (Culturelle) 1 cap WITH MEALS PO Last administered on 12/15/18 08:58; Admin Dose 1 CAP; Start 12/05/18 at 18:00 Pantoprazole (Protonix Tab) 40 mg BID@06,18 PO Last administered on 12/15/18 06:15; Admin Dose 40 MG; Start 12/05/18 at 18:00 Meropenem/Sodium Chloride 50 ml @ 100 mls/hr Q8H IVPB Last administered on 12/15/18 08:57; Admin Dose 100 MLS/HR; Start 12/07/18 at 01:30 Heparin Sodium (Porcine) (Heparin (1000 Units/ml)) 7,200 unit PER PROTOCOL PRN IV aPTT<47 Last administered on 12/15/18 06:36; Admin Dose 6,400 UNIT; Start 12/07/18 at 13:00 Heparin Sodium (Porcine) (Heparin (1000 Units/ml)) 3,600 unit PER PROTOCOL PRN IV aPTT<47-57; Start 12/07/18 at 13:00 Heparin Sodium (Porcine) 250 ml @ 16 mls/hr PER PROTOCOL IV Last administered on 12/15/18at 06:31; Admin Dose 16 MLS/HR; Start 12/07/18 at 14:00 Methylprednisolone Sodium Succinate (Solu-Medrol) 10 mg BID IV Last administered on 12/15/18at 08:57; Admin Dose 10 MG; Start 12/07/18 at 21:00 Diagnostic Test (Pha) (Accu-Chek) 1 ea Q4 XX Last administered on 12/15/18at 04:49; Admin Dose 1 EA; Start 12/13/18 at 17:00 IV Flush (NS 10 ml) 10 ml Q8 PRN IV IV PROTOCOL; Start 12/13/18 at 21:30 Total Parenteral Nutrition 1,000 ml @ 80 mls/hr Q12H IV Last administered on 12/15/18at 04:10; Admin Dose 80 MLS/HR; Start 12/14/18 at 16:00 CHILO LEE NP Dec 15, 2018 10:36
[2018-12-15 14:29] VITALS: BP 118/70; PULSE 60; RESP 18
--- NOTE | 2018-12-15 14:42 | PN ---
Date/Time of Note Date/Time of Note DATE: 12/15/18 TIME: 14:39 Assessment/Plan Lines/Catheters IV Catheter Type (from [facility]): PICC Line Henao in Place (from [facility]): No Assessment/Plan Chief Complaint/Hosp Course 1. CT findings of pneumatosis intestinalis of right colon and hepatic flexure, concern for ischemia and microperforation of right colon; repeat ct noted with continued interval progression of colonic pneumatosis involving the proximal colon again suggestive for gangrenous bowel; hemodynamically stable, abdominal pain is improving -continues abx per ID -judicious fluids -continue n.p.o. for now> TPN -close monitoring -Will require transfer to tertiary center for possible thrombectomy/revascularization, vascular optimization prior to surgical inter vention> pending tx 2. Portal venous thrombosis, thrombosis of superior mesenteric vein; vascular s urgery consult noted: Dr. Westbrook spoke with vascular team whose recommendation is to transfer to tertiary center -Anticoagulation per medical team 3. Peripancreatic fluid with concern for acute pancreatitis; amylase and lipase within normal limits -fluid mgt 4. Liver cirrhosis with generalized anasarca -Hepatic optimization -Fluid management 5. Pleural effusion, pericardial effusion -Fluid management -Per cards/pulm 6. SLE c acute flare: steroids and colchicine -Per rheumatology 7. Obesity BMI: 34 -diet and exercise optimization -encourage weight loss 8. Leukocytosis:improving -Agree with antibiotics 9. Hypochromic anemia: -Monitor and transfuse as needed 10. Thrombocytosis: improving -dvt prophylaxis -Anticoagulation Thank you. Patient seen and examined in collaboration with Dr. Sanjay Westbrook. Subjective 24 Hr Interval Summary Feels the same. No increase in abdominal discomfort or pain. No fevers, chills, sob, congested cough, cp, palpitations, crouch, dizziness, n/v/d/dysuria. Exam/Review of Systems Vital Signs Vitals Vital Signs Date Temp Pulse Resp B/P (MAP) Pulse Ox O2 O2 Flow FiO2 Time Delivery Rate 12/15/18 97.8 60 18 118/70 95 Room Air 14:29 (86) Intake and Output 12/14/18 12/14/18 12/15/18 1515:00 23:00 07:00 IntakeIntake Total 83.2 ml 90 ml 1260 ml BalanceBalance 83.2 ml 90 ml 1260 ml Exam Free Text/Dictation Constitutional: alert, oriented Psych: nl mood/affect; No anxiety Head: normocephalic, atraumatic Eyes: nl conjunctiva, EOMI, nl lids, nl sclera ENMT: nl external ears & nose, nl lips & teeth, mucosa pink and moist Neck: supple, non-tender; No jvd Respiratory: normal air movement; No congested cough Cardiovascular: regular rate and rhythm, nl pulses; No edema Gastrointestinal: soft, min tender Left side Genitourinary - Female: nl external genitalia Musculoskeletal: nl extremities to inspection, nl gait and stance Extremities: normal pulses Neurological: nl mental status, nl speech, nl strength Skin: No rash or lesions Lymph: No nl lymph nodes Results Result Diagram: 12/15/1844112/15/18441 FARZANA RENEE NP Dec 15, 2018 14:42
[2018-12-15 20:19] VITALS: BP 124/73; PULSE 70; RESP 16
[2018-12-16] MEDS: ACCU-CHEK XX SCH ×4 (01:00→13:00)
[2018-12-16 01:14] VITALS: BP 115/57; PULSE 62; RESP 16
[2018-12-16] MEDS: MEROPENEM 1 GM/50ML(PMX) 50 ML IVPB SCH (01:52)
[2018-12-16] MEDS: TPN 1,000 ML IV SCH ×3 (03:30→16:00)
[2018-12-16] MEDS: HYDROmorphONE 1 MG/ML SYG IV PRN ×3 (03:30→17:50)
[2018-12-16] MEDS: PANTOPRAZOLE (EC) 40 MG TAB PO SCH ×2 (05:28→17:15)
[2018-12-16] MEDS: HEPARIN 25000 UNITS/250 ML 250 ML IV SCH (05:37)
--- NOTE | 2018-12-16 07:02 | CONS ---
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 for this such as SLE, pancreatitis and cirrhosis patient was started on anti-coagulation 4) pneumatosis intestinalis (PI) this is a known complication of PV thrombus and does not necessarily mean actual bowel infection/infarction but the fact that there is some free air does complicate things ok to continue with merrem, will d/c ampicillin and levaquin at this time no evidence to suggest she has a lung infection which also could cause PI if anticoagulation does not resolve her abd pain she may need another abd CT to verify no further evidence of abd infection 12/09 - less abd pain today and WBC and platelets are improved (both down) continue with merrem would repeat abd/pelv CT with contrast next week to evaluate progress hopefully with oral contrast(gastrograffin) to see if any perf is present 12/12 - stable over weekend, abd pain still present but decreasing anticipate abd/pelv CT in the next few days continue with merrem 12/14 - repeat abd CT showed some progression of pneumatosis intestinalis and diffuse SB and colonic thickening and pancreatitis less likely now clinically better but WBC is improved pt is clinically not acting like gangrenous bowel and increase in pneumatosis may reflect the expansion of thrombus in the portal vein continue with merrem (day 8) but if WBC is increasing will switch to zosyn 12/16 - abd pain persists and WBC is higher no pancreatitis seen on last CT, change merrem to zosyn plan is tx to tertiary care hospital stool cx was neg but blood is present in stool and Hgb is slowly drifting down 5) pancreatitis by CT and clinical exam is c/w it too but lipase and amylase do not correlate merrem has good penetration into the pancreas and any infectious process there should be covered with merrem 12/09 - pancreatitis can cause rise in procalcitonin and it was not, diagnosis of pancreatitis is iffy and inflammation around it may be secondary to local infec tion due to other cause 12/14 - not appreciated at last CT on 12/12 6) gastric ulcers on treatment Consultation Date/Type/Reason Admit Date/Time Nov 29, 2018 at 06:15 Initial Consult Date 12/08/18 Type of Consult ID Date/Time of Note DATE: 12/16/18 TIME: 07:00 24 HR Interval Summary Free Text/Dictation pt states no change in abd pain no V stool still has blood present in it no SOB Exam/Review of Systems Exam Vitals Vital Signs Date Temp Pulse Resp B/P (MAP) Pulse Ox O2 O2 Flow FiO2 Time Delivery Rate 12/16/18 98.2 62 16 115/57 98 01:14 (76) 12/15/18 Room Air 14:29 Intake and Output 12/15/18 12/15/18 12/16/18 1515:00 23:00 07:00 IntakeIntake Total 50 ml 50 ml 1100 ml BalanceBalance 50 ml 50 ml 1100 ml Constitutional: alert, oriented ENMT: mucosa pink and moist Respiratory: clear to auscultation Cardiovascular: regular rate and rhythm Gastrointestinal: soft, tender (midepigastric area) Results Result Diagram: 12/16/18 0327 12/16/18 0428 Results 24hrs Laboratory Tests Test 12/15/18 09:01 12/15/18 12:38 12/15/18 13:02 12/15/18 14:57 Bedside Glucose 167 127 Activated > 180.0 *H 79.4 *H Partial Thromboplast Time Test 12/15/18 17:54 12/15/18 21:57 12/15/18 23:35 12/16/18 01:00 Bedside Glucose 147 136 Activated > 180.0 *H Partial Thromboplast Time Stool Occult Blood POSITIVE Test 12/16/18 01:55 12/16/18 03:27 12/16/18 04:28 12/16/18 05:30 Bedside Glucose 132 149 White Blood Count 16.0 H Red Blood Count 3.55 L Hemoglobin 8.8 L Hematocrit 30.8 L Mean Corpuscular 86.8 Volume Mean Corpuscular 24.8 L Hemoglobin Mean Corpuscular 28.6 L Hemoglobin Concent Red Cell 18.6 H Distribution Width Platelet Count 294 Mean Platelet Volume 10.9 H Immature 0.900 H Granulocytes % Neutrophils % 90.2 H Lymphocytes % 1.1 L Monocytes % 7.6 Eosinophils % 0.1 Basophils % 0.1 Nucleated Red Blood 0.9 H Cells % Immature 0.140 H Granulocytes # Neutrophils # 14.4 H Lymphocytes # 0.2 L Monocytes # 1.2 H Eosinophils # 0.0 Basophils # 0.0 Nucleated Red Blood 0.2 H Cells # Activated 32.0 Partial Thromboplast Time Phosphorus Level 4.5 Magnesium Level 2.0 Sodium Level 138 Potassium Level 4.2 Chloride Level 106 Carbon Dioxide Level 27 Anion Gap 5 Blood Urea Nitrogen 18 Creatinine 0.39 L Est Glomerular > 60 Filtrat Rate mL/min Glucose Level 153 Calcium Level 8.7 Medications Medication Current Medications IV Flush (NS 3 ml) 3 ml PER PROTOCOL IV ; Start 11/29/18 at 07:00 Ondansetron HCl (Zofran Inj) 4 mg Q6H PRN IV NAUSEA/VOMITING Last administered on 12/14/18at 16:31; Admin Dose 4 MG; Start 11/29/18 at 07:00 Acetaminophen (Tylenol Tab) 650 mg Q6H PRN PO .PAIN 1-3 OR TEMP; Start 11/29/18 at 07:00 Acetaminophen/ Hydrocodone Bitart ([place] (5/325)) 1 tab Q6H PRN PO .MOD PAIN 4- 6 Last administered on 12/02/18at 11:08; Admin Dose 1 TAB; Start 11/29/18 at 07:00 Docusate Sodium (Colace) 100 mg Q12H PRN PO .CONSTIPATION; Start 11/29/18 at 07:00 Magnesium Hydroxide (Milk Of Mag) 30 ml DAILY PRN PO .CONSTIPATION; Start 11/29/18 at 07:00 Lorazepam (Ativan) 0.5 mg Q6H PRN IV ANXIETY; Start 11/29/18 at 07:00 Albuterol/ Ipratropium (Duoneb) 3 ml Q4H RESP THERAPY PRN HHN SHORTNESS OF BREATH; Start 11/29/18 at 07:00 Hydralazine HCl (Apresoline) 10 mg Q6H PRN IV for sys bp > 180; Start 11/29/18 at 07:00 Nitroglycerin (Nitroglycerin (Sl Tab) 0.4 Mg) 1 tab Q5M PRN SL ANGINA Last administered on 11/30/18at 10:24; Admin Dose 1 TAB; Start 11/29/18 at 07:00 Amlodipine Besylate (Norvasc) 5 mg BID PO Last administered on 12/15/18 21:19; Admin Dose 5 MG; Start 11/30/18 at 09:00 Azathioprine (Imuran) 100 mg DAILY PO Last administered on 12/15/18 08:58; Admin Dose 100 MG; Start 11/30/18 at 09:00 Cyclobenzaprine HCl (Flexeril) 10 mg TID PO Last administered on 12/15/18 21:19; Admin Dose 10 MG; Start 11/30/18 at 09:00 Nadolol (Corgard) 20 mg BID PO Last administered on 12/15/18 21:19; Admin Dose 20 MG; Start 11/30/18 at 09:00 Tramadol HCl (Ultram) 50 mg Q4 PRN PO PAIN Last administered on 12/03/18 03:13; Admin Dose 50 MG; Start 11/30/18 at 00:00 Calcium/Vitamin D (Oyster Shell/ Vit-D (500/200)) 1 tab DAILY PO Last administered on 12/15/18 08:58; Admin Dose 1 TAB; Start 11/30/18 at 09:00 Sucralfate (Carafate Susp) 1 gm QID PO Last administered on 12/15/18 21:18; Admin Dose 1 GM; Start 11/30/18 at 09:00 Metoclopramide HCl (Reglan) 10 mg Q6H PRN IV nausae Last administered on 12/06/18 02:23; Admin Dose 10 MG; Start 11/30/18 at 11:00 Colchicine (Colchicine) 0.6 mg BID PO Last administered on 12/15/18 21:19; Admin Dose 0.6 MG; Start 11/30/18 at 12:30 Hydromorphone HCl (Dilaudid) 1 mg Q4H PRN IV SEVERE PAIN LEVEL 7-10 Last administered on 12/16/18 03:30; Admin Dose 1 MG; Start 12/02/18 at 12:30 Amylase/Lipase/ Protease (Creon ([id number])) 2 cap WITH MEALS PO Last administered on 12/15/18 17:52; Admin Dose 2 CAP; Start 12/02/18 at 18:00 Lactobacillus Acidophilus/ Rhamnosus (Culturelle) 1 cap WITH MEALS PO Last administered on 12/15/18 17:52; Admin Dose 1 CAP; Start 12/05/18 at 18:00 Pantoprazole (Protonix Tab) 40 mg BID@06,18 PO Last administered on 12/16/18 05:28; Admin Dose 40 MG; Start 12/05/18 at 18:00 Meropenem/Sodium Chloride 50 ml @ 100 mls/hr Q8H IVPB Last administered on 12/16/18 01:52; Admin Dose 100 MLS/HR; Start 12/07/18 at 01:30 Heparin Sodium (Porcine) (Heparin (1000 Units/ml)) 7,200 unit PER PROTOCOL PRN IV aPTT<47 Last administered on 12/15/18 06:36; Admin Dose 6,400 UNIT; Start 12/07/18 at 13:00 Heparin Sodium (Porcine) (Heparin (1000 Units/ml)) 3,600 unit PER PROTOCOL PRN IV aPTT<47-57; Start 12/07/18 at 13:00 Heparin Sodium (Porcine) 250 ml @ 16 mls/hr PER PROTOCOL IV Last administered on 12/16/18 05:37; Admin Dose 10.5 MLS/HR; Start 12/07/18 at 14:00 Methylprednisolone Sodium Succinate (Solu-Medrol) 10 mg BID IV Last administered on 12/15/18 21:18; Admin Dose 10 MG; Start 12/07/18 at 21:00 Diagnostic Test (Pha) (Accu-Chek) 1 ea Q4 XX Last administered on 12/15/18 04: 49; Admin Dose 1 EA; Start 12/13/18 at 17:00 IV Flush (NS 10 ml) 10 ml Q8 PRN IV IV PROTOCOL; Start 12/13/18 at 21:30 Total Parenteral Nutrition 1,000 ml @ 80 mls/hr Q12H IV Last administered on 12/15/18 17:53; Admin Dose 80 MLS/HR; Start 12/14/18 at 16:00 ARAMIS WAKEFIELD MD Dec 16, 2018 07:02
[2018-12-16 07:56] VITALS: BP 115/71; PULSE 58; RESP 17
[2018-12-16] MEDS: NADOLOL 40 MG TAB PO SCH (09:00)
[2018-12-16] MEDS: AZATHIOPRINE 50 MG TAB PO SCH (09:00)
[2018-12-16] MEDS: COLCHICINE 0.6 MG TAB PO SCH (09:00)
[2018-12-16] MEDS: SUCRALFATE (100 MG/ML) 10ML CUP PO SCH ×3 (09:00→17:15)
[2018-12-16] MEDS: CALCIUM/VITAMIN D (500/200) TAB PO SCH (09:01)
[2018-12-16] MEDS: LACTOBACILLUS RHAMNOSUS CAP PO SCH ×3 (09:01→17:15)
[2018-12-16] MEDS: CYCLOBENZAPRINE 10 MG TAB PO SCH ×2 (09:01→13:29)
[2018-12-16] MEDS: AMLODIPINE 10 MG TAB PO SCH (09:01)
[2018-12-16] MEDS: CREON (24K-76K-120K) 1 CAP PO SCH ×3 (09:01→17:15)
[2018-12-16] MEDS: METHYLPREDNISOLONE 40 MG INJ IV SCH (09:02)
--- NOTE | 2018-12-16 09:58 | CONS ---
Consult Date/Type/Reason Admit Date/Time Nov 29, 2018 at 06:15 Initial Consult Date 12/01/18 Type of Consultation: Rheumatology Date/Time of Note DATE: 12/16/18 TIME: 09:48 Subjective Continues with abdominal pain, NPO. No new complaitnts. Objective Vitals Vital Signs Date Temp Pulse Resp B/P (MAP) Pulse Ox O2 O2 Flow FiO2 Time Delivery Rate 12/16/18 98.1 58 17 115/71 98 Room Air 07:56 (86) Intake and Output 12/15/18 12/15/18 12/16/18 1515:00 23:00 07:00 IntakeIntake Total 50 ml 50 ml 1100 ml BalanceBalance 50 ml 50 ml 1100 ml Exam xam GENERAL: Alert and oriented in no acute distress, SKIN: No rashes or new lesions. HEENT: No acute oral or ocular lesions. NECK: Supple. No lymphadenopathy. CARDIOVASCULAR: Regular rate and rhythm. LUNGS: Clear to auscultation bilaterally. No wheezing or rhonchi. ABDOMEN: Soft, mild epigastric tenderness. No rebound tenderness. Bowel sounds are present. EXTREMITIES: No Edema. Mild cyanosis fingers. MUSCULOSKELETAL: No synovitis Results/Medications Result Diagram: 12/16/18 0327 12/16/18 0428 Results 24 hrs Laboratory Tests Test 12/15/18 12:38 12/15/18 13:02 12/15/18 14:57 12/15/18 17:54 Bedside Glucose 127 147 Activated > 180.0 *H 79.4 *H Partial Thromboplast Time Test 12/15/18 21:57 12/15/18 23:35 12/16/18 01:00 12/16/18 01:55 Bedside Glucose 136 132 Activated > 180.0 *H Partial Thromboplast Time Stool Occult Blood POSITIVE Test 12/16/18 03:27 12/16/18 04:28 12/16/18 05:30 12/16/18 09:05 White Blood Count 16.0 H Red Blood Count 3.55 L Hemoglobin 8.8 L Hematocrit 30.8 L Mean Corpuscular 86.8 Volume Mean Corpuscular 24.8 L Hemoglobin Mean Corpuscular 28.6 L Hemoglobin Concent Red Cell 18.6 H Distribution Width Platelet Count 294 Mean Platelet Volume 10.9 H Immature 0.900 H Granulocytes % Neutrophils % 90.2 H Lymphocytes % 1.1 L Monocytes % 7.6 Eosinophils % 0.1 Basophils % 0.1 Nucleated Red Blood 0.9 H Cells % Immature 0.140 H Granulocytes # Neutrophils # 14.4 H Lymphocytes # 0.2 L Monocytes # 1.2 H Eosinophils # 0.0 Basophils # 0.0 Nucleated Red Blood 0.2 H Cells # Activated 32.0 Partial Thromboplast Time Phosphorus Level 4.5 Magnesium Level 2.0 Sodium Level 138 Potassium Level 4.2 Chloride Level 106 Carbon Dioxide Level 27 Anion Gap 5 Blood Urea Nitrogen 18 Creatinine 0.39 L Est Glomerular > 60 Filtrat Rate mL/min Glucose Level 153 Calcium Level 8.7 Bedside Glucose 149 147 Home Meds Active Scripts Cyclobenzaprine Hcl* (Cyclobenzaprine Hcl*) 10 Mg Tablet, 10 MG PO TID, #15 TAB Prov:MICKY CHAN MD 11/26/18 Tramadol HCl (Tramadol HCl) 50 Mg Tablet, 50 MG PO Q4 PRN for PAIN, #20 TAB Prov:MICKY CHAN MD 11/26/18 Ondansetron Hcl* (Zofran*) 8 Mg Tablet, 8 MG PO Q6H PRN for NAUSEA AND OR VOMITING, #20 TAB Prov:JENNY RAWLS MD 11/20/18 Levofloxacin* (Levaquin*) 750 Mg Tablet, 750 MG PO DAILY for 7 Days, TAB Prov:JENNY RAWLS MD 11/20/18 Sucralfate* (Carafate*) 1 Gm/10 Ml Susp, 1 GM PO QID for 30 Days, #1 EA 2 Refills Prov:LIUDMILA DUMONT MD 11/17/18 Metoclopramide Hcl* (Metoclopramide Hcl*) 10 Mg Tablet, 10 MG PO QID for 10 Days, #40 TAB Prov:LIUDMILA DUMONT MD 11/17/18 Acetaminophen* (Tylenol*) 325 Mg Tablet, 650 MG PO Q6H PRN for .PAIN 1-3 OR TEMP for 1 Day, TAB Prov:LIUDMILA DUMONT MD 11/17/18 Nadolol (Corgard) 40 Mg Tablet, 20 MG PO BID for 15 Days, #30 TAB Prov:LIUDMILA DUMONT MD 11/17/18 Pantoprazole* (Pantoprazole*) 40 Mg Tablet.dr, 40 MG PO BID@18 for 30 Days, #60 TAB 1 Refill Prov:LIUDMILA DUMONT MD 11/17/18 Reported Medications Amlodipine Besylate* (Amlodipine Besylate*) 10 Mg Tablet, 5 MG PO BID, #30 TAB 11/29/18 Calcium Carbonate/Vitamin D3 (Calcium 500 mg Chewable Tablet) 1 Each Tab.chew, 1 EACH PO DAILY, TAB.CHEW 11/14/18 Prednisone* (Prednisone*) 5 Mg Tab, 5 MG PO DAILY, TAB 11/14/18 Azathioprine* (Imuran*) 50 Mg Tab, 100 MG PO DAILY, TAB 11/14/18 Ergocalciferol (Vitamin D2) (VITAMIN D2) 50,000 Unit Capsule, 52010 UNIT PO QMONDAY 09/22/18 Medications Current Medications IV Flush (NS 3 ml) 3 ml PER PROTOCOL IV ; Start 11/29/18 at 07:00 Ondansetron HCl (Zofran Inj) 4 mg Q6H PRN IV NAUSEA/VOMITING Last administered on 12/14/18at 16:31; Admin Dose 4 MG; Start 11/29/18 at 07:00 Acetaminophen (Tylenol Tab) 650 mg Q6H PRN PO .PAIN 1-3 OR TEMP; Start 11/29/18 at 07:00 Acetaminophen/ Hydrocodone Bitart ([place] (5/325)) 1 tab Q6H PRN PO .MOD PAIN 4- 6 Last administered on 12/02/18at 11:08; Admin Dose 1 TAB; Start 11/29/18 at 07:00 Docusate Sodium (Colace) 100 mg Q12H PRN PO .CONSTIPATION; Start 11/29/18 at 07:00 Magnesium Hydroxide (Milk Of Mag) 30 ml DAILY PRN PO .CONSTIPATION; Start 11/29/18 at 07:00 Lorazepam (Ativan) 0.5 mg Q6H PRN IV ANXIETY; Start 11/29/18 at 07:00 Albuterol/ Ipratropium (Duoneb) 3 ml Q4H RESP THERAPY PRN HHN SHORTNESS OF BREATH; Start 11/29/18 at 07:00 Hydralazine HCl (Apresoline) 10 mg Q6H PRN IV for sys bp > 180; Start 11/29/18 at 07:00 Nitroglycerin (Nitroglycerin (Sl Tab) 0.4 Mg) 1 tab Q5M PRN SL ANGINA Last administered on 11/30/18 10:24; Admin Dose 1 TAB; Start 11/29/18 at 07:00 Amlodipine Besylate (Norvasc) 5 mg BID PO Last administered on 12/16/18 09:01; Admin Dose 5 MG; Start 11/30/18 at 09:00 Azathioprine (Imuran) 100 mg DAILY PO Last administered on 12/16/18 09:00; Admin Dose 100 MG; Start 11/30/18 at 09:00 Cyclobenzaprine HCl (Flexeril) 10 mg TID PO Last administered on 12/16/18 09:01; Admin Dose 10 MG; Start 11/30/18 at 09:00 Nadolol (Corgard) 20 mg BID PO Last administered on 12/15/18 21:19; Admin Dose 20 MG; Start 11/30/18 at 09:00 Tramadol HCl (Ultram) 50 mg Q4 PRN PO PAIN Last administered on 12/03/18 03:13; Admin Dose 50 MG; Start 11/30/18 at 00:00 Calcium/Vitamin D (Oyster Shell/ Vit-D (500/200)) 1 tab DAILY PO Last administered on 12/16/18 09:01; Admin Dose 1 TAB; Start 11/30/18 at 09:00 Sucralfate (Carafate Susp) 1 gm QID PO Last administered on 12/16/18 09:00; Admin Dose 1 GM; Start 11/30/18 at 09:00 Metoclopramide HCl (Reglan) 10 mg Q6H PRN IV nausae Last administered on 12/06/18 02:23; Admin Dose 10 MG; Start 11/30/18 at 11:00 Colchicine (Colchicine) 0.6 mg BID PO Last administered on 12/16/18 09:00; Admin Dose 0.6 MG; Start 11/30/18 at 12:30 Hydromorphone HCl (Dilaudid) 1 mg Q4H PRN IV SEVERE PAIN LEVEL 7-10 Last adm inistered on 12/16/18 03:30; Admin Dose 1 MG; Start 12/02/18 at 12:30 Amylase/Lipase/ Protease ([place] ([id number])) 2 cap WITH MEALS PO Last administered on 12/16/18 09:01; Admin Dose 2 CAP; Start 12/02/18 at 18:00 Lactobacillus Acidophilus/ Rhamnosus (Culturelle) 1 cap WITH MEALS PO Last administered on 12/16/18 09:01; Admin Dose 1 CAP; Start 12/05/18 at 18:00 Pantoprazole (Protonix Tab) 40 mg BID@06,18 PO Last administered on 12/16/18 05:28; Admin Dose 40 MG; Start 12/05/18 at 18:00 Heparin Sodium (Porcine) (Heparin (1000 Units/ml)) 7,200 unit PER PROTOCOL PRN IV aPTT<47 Last administered on 12/15/18at 06:36; Admin Dose 6,400 UNIT; Start 12/07/18 at 13:00 Heparin Sodium (Porcine) (Heparin (1000 Units/ml)) 3,600 unit PER PROTOCOL PRN IV aPTT<47-57; Start 12/07/18 at 13:00 Heparin Sodium (Porcine) 250 ml @ 16 mls/hr PER PROTOCOL IV Last administered on 12/16/18 05:37; Admin Dose 10.5 MLS/HR; Start 12/07/18 at 14:00 Methylprednisolone Sodium Succinate (Solu-Medrol) 10 mg BID IV Last administered on 12/16/18 09:02; Admin Dose 10 MG; Start 12/07/18 at 21:00 Diagnostic Test (Pha) (Accu-Chek) 1 ea Q4 XX Last administered on 12/15/18at 04:49; Admin Dose 1 EA; Start 12/13/18 at 17:00 IV Flush (NS 10 ml) 10 ml Q8 PRN IV IV PROTOCOL; Start 12/13/18 at 21:30 Total Parenteral Nutrition 1,000 ml @ 80 mls/hr Q12H IV Last administered on 12/16/18at 08:11; Admin Dose 80 MLS/HR; Start 12/14/18 at 16:00 Piperacillin Sod/ Tazobactam Sod 100 ml @ 200 mls/hr Q6 IVPB ; Start 12/16/18 at 12:00 Assessment/Plan Assessment/Plan (Daily) Assessment/ Plan: 1. Probable pneumonia Improving. 2.. Lupus flare less likely. Agree with decreasing steroids as clinically improving. Now on Solumedrol to 10 mg BID 3.. 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 Continue the colchicine 0.6 b.i.d. 4.. Pancreatitis. 5.. Pleural effusion. 6. Cirrhosis with esophageal varices. 7. Raynaud's syndrome. Continue with Raynaud's precautions. 8. 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 Should preferably be transferred at a tertiary center. - SAHRA GOYAL MD Dec 16, 2018 09:58
--- NOTE | 2018-12-16 10:34 | PN ---
Date/Time of Note Date/Time of Note DATE: 12/16/18 TIME: 10:05 Assessment/Plan VTE Prophylaxis Risk score (from Ns)>0 risk: 1 SCD applied (from Ns): No SCD contraindicated: other Pharmacological prophylaxis: heparin Lines/Catheters IV [facility]from [facility] PICC Line Central line still needed: Yes Urinary Cath still in place: No Assessment/Plan Hospital Course Assessment and plan 1. Abdominal pain -CT scan of the abdomen showing acute pancreatitis (November 29, 2018) -Repeat CT scan of the abdomen on December 06, 2018 showed pneumatosis intestinalis of the right colon and hepatic flexure with suspicion of bowel ischemia with several foci of free air in the right lower quadrant worrisome for microperforation of the right colon. - Continue abx treatment. -repeat CT scan of the abdomen with IV and oral contrast 12/12/18: continued interval progression of colonic pneumatosis involving the proximal colon again suggestive for gangrenous bowel. There is generalized small and large bowel wall thickening with more pronounced involvement of the colon that could represent third spacing of fluid versus colitis - f/u surgeon recommendations 2. 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 Acute pancreatitis -Continue on Creon GI consult is following 4.Lupus flare -Social Scientist following -On steroid medication 5. Chronic liver cirrhosis with history of esophageal varices -Remains on beta-tavon 6. 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 Hx Raynaud's Syndrome - hx right mid finger amputation - continue precautions 9. Obesity - Weight reduction was advised 10. GI bleed - patient with (+) FOBT. - f/u GI recs - f/u H&H - transfuse blood products as needed. Disposition and plan.. Discussed with care team, plan for transfer to tertiary care center for possible TIPPS procedure and/or portal vein thrombectomy. Disc ussed case with Dr. Cordero at [facility]. Hopeful transfer within the next 24 hours. d/c in progress. Discussed POC with Dr. Noriega Result Diagram: 12/16/18 0327 12/16/18 0428 Results 24hrs Laboratory Tests Test 12/15/18 12:38 12/15/18 13:02 12/15/18 14:57 12/15/18 17:54 Bedside Glucose 127 147 Activated > 180.0 *H 79.4 *H Partial Thromboplast Time Test 12/15/18 21:57 12/15/18 23:35 12/16/18 01:00 12/16/18 01:55 Bedside Glucose 136 132 Activated > 180.0 *H Partial Thromboplast Time Stool Occult Blood POSITIVE Test 12/16/18 03:27 12/16/18 04:28 12/16/18 05:30 12/16/18 09:05 White Blood Count 16.0 H Red Blood Count 3.55 L Hemoglobin 8.8 L Hematocrit 30.8 L Mean Corpuscular 86.8 Volume Mean Corpuscular 24.8 L Hemoglobin Mean Corpuscular 28.6 L Hemoglobin Concent Red Cell 18.6 H Distribution Width Platelet Count 294 Mean Platelet Volume 10.9 H Immature 0.900 H Granulocytes % Neutrophils % 90.2 H Lymphocytes % 1.1 L Monocytes % 7.6 Eosinophils % 0.1 Basophils % 0.1 Nucleated Red Blood 0.9 H Cells % Immature 0.140 H Granulocytes # Neutrophils # 14.4 H Lymphocytes # 0.2 L Monocytes # 1.2 H Eosinophils # 0.0 Basophils # 0.0 Nucleated Red Blood 0.2 H Cells # Activated 32.0 Partial Thromboplast Time Phosphorus Level 4.5 Magnesium Level 2.0 Sodium Level 138 Potassium Level 4.2 Chloride Level 106 Carbon Dioxide Level 27 Anion Gap 5 Blood Urea Nitrogen 18 Creatinine 0.39 L Est Glomerular > 60 Filtrat Rate mL/min Glucose Level 153 Calcium Level 8.7 Bedside Glucose 149 147 Subjective 24 Hr Interval Summary Free Text/Dictation reports having some blood in stool. still has some abd pain Exam/Review of Systems Exam Vitals Vital Signs Date Temp Pulse Resp B/P (MAP) Pulse Ox O2 O2 Flow FiO2 Time Delivery Rate 12/16/18 98.1 58 17 115/71 98 Room Air 07:56 (86) Intake and Output 12/15/18 12/15/18 12/16/18 1515:00 23:00 07:00 IntakeIntake Total 50 ml 50 ml 1100 ml BalanceBalance 50 ml 50 ml 1100 ml Exam Constitutional: alert, oriented Psych: nl mood/affect Head: normocephalic Neck: supple, non-tender Respiratory: clear to auscultation Cardiovascular: regular rate and rhythm Gastrointestinal: tender Musculoskeletal: nl extremities to inspection Neurological: 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 LEVEL 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 ACCOUNTANT II-XII intact, nl mental status, nl speech Skin: nl turgor Results Results 24hrs Laboratory Tests Test 12/15/18 12:38 12/15/18 13:02 12/15/18 14:57 12/15/18 17:54 Bedside Glucose 127 147 Activated > 180.0 *H 79.4 *H Partial Thromboplast Time Test 12/15/18 21:57 12/15/18 23:35 12/16/18 01:00 12/16/18 01:55 Bedside Glucose 136 132 Activated > 180.0 *H Partial Thromboplast Time Stool Occult Blood POSITIVE Test 12/16/18 03:27 12/16/18 04:28 12/16/18 05:30 12/16/18 09:05 White Blood Count 16.0 H Red Blood Count 3.55 L Hemoglobin 8.8 L Hematocrit 30.8 L Mean Corpuscular 86.8 Volume Mean Corpuscular 24.8 L Hemoglobin Mean Corpuscular 28.6 L Hemoglobin Concent Red Cell 18.6 H Distribution Width Platelet Count 294 Mean Platelet Volume 10.9 H Immature 0.900 H Granulocytes % Neutrophils % 90.2 H Lymphocytes % 1.1 L Monocytes % 7.6 Eosinophils % 0.1 Basophils % 0.1 Nucleated Red Blood 0.9 H Cells % Immature 0.140 H Granulocytes # Neutrophils # 14.4 H Lymphocytes # 0.2 L Monocytes # 1.2 H Eosinophils # 0.0 Basophils # 0.0 Nucleated Red Blood 0.2 H Cells # Activated 32.0 Partial Thromboplast Time Phosphorus Level 4.5 Magnesium Level 2.0 Sodium Level 138 Potassium Level 4.2 Chloride Level 106 Carbon Dioxide Level 27 Anion Gap 5 Blood Urea Nitrogen 18 Creatinine 0.39 L Est Glomerular > 60 Filtrat Rate mL/min Glucose Level 153 Calcium Level 8.7 Bedside Glucose 149 147 Medications Medication Current Medications IV Flush (NS 3 ml) 3 ml PER PROTOCOL IV ; Start 11/29/18 at 07:00 Ondansetron HCl (Zofran Inj) 4 mg Q6H PRN IV NAUSEA/VOMITING Last administered on 12/14/18at 16:31; Admin Dose 4 MG; Start 11/29/18 at 07:00 Acetaminophen (Tylenol Tab) 650 mg Q6H PRN PO .PAIN 1-3 OR TEMP; Start 11/29/18 at 07:00 Acetaminophen/ Hydrocodone Bitart (Mccall (5/325)) 1 tab Q6H PRN PO .MOD PAIN 4- 6 Last administered on 12/02/18 11:08; Admin Dose 1 TAB; Start 11/29/18 at 07:00 Docusate Sodium (Colace) 100 mg Q12H PRN PO .CONSTIPATION; Start 11/29/18 at 07:00 Magnesium Hydroxide (Milk Of Mag) 30 ml DAILY PRN PO .CONSTIPATION; Start 11/29/18 at 07:00 Lorazepam (Ativan) 0.5 mg Q6H PRN IV ANXIETY; Start 11/29/18 at 07:00 Albuterol/ Ipratropium (Duoneb) 3 ml Q4H RESP THERAPY PRN HHN SHORTNESS OF BREATH; Start 11/29/18 at 07:00 Hydralazine HCl (Apresoline) 10 mg Q6H PRN IV for sys bp > 180; Start 11/29/18 at 07:00 Nitroglycerin (Nitroglycerin (Sl Tab) 0.4 Mg) 1 tab Q5M PRN SL ANGINA Last administered on 11/30/18at 10:24; Admin Dose 1 TAB; Start 11/29/18 at 07:00 Amlodipine Besylate (Norvasc) 5 mg BID PO Last administered on 12/16/18 09:01; Admin Dose 5 MG; Start 11/30/18 at 09:00 Azathioprine (Imuran) 100 mg DAILY PO Last administered on 12/16/18 09:00; Admin Dose 100 MG; Start 11/30/18 at 09:00 Cyclobenzaprine HCl (Flexeril) 10 mg TID PO Last administered on 12/16/18 09:01; Admin Dose 10 MG; Start 11/30/18 at 09:00 Nadolol (Corgard) 20 mg BID PO Last administered on 12/15/18 21:19; Admin Dose 20 MG; Start 11/30/18 at 09:00 Tramadol HCl (Ultram) 50 mg Q4 PRN PO PAIN Last administered on 12/03/18 03:13; Admin Dose 50 MG; Start 11/30/18 at 00:00 Calcium/Vitamin D (Oyster Shell/ Vit-D (500/200)) 1 tab DAILY PO Last administered on 12/16/18 09:01; Admin Dose 1 TAB; Start 11/30/18 at 09:00 Sucralfate (Carafate Susp) 1 gm QID PO Last administered on 12/16/18 09:00; Admin Dose 1 GM; Start 11/30/18 at 09:00 Metoclopramide HCl (Reglan) 10 mg Q6H PRN IV nausae Last administered on 12/06/18 02:23; Admin Dose 10 MG; Start 11/30/18 at 11:00 Colchicine (Colchicine) 0.6 mg BID PO Last administered on 12/16/18 09:00; Admin Dose 0.6 MG; Start 11/30/18 at 12:30 Hydromorphone HCl (Dilaudid) 1 mg Q4H PRN IV SEVERE PAIN LEVEL 7-10 Last administered on 12/16/18 03:30; Admin Dose 1 MG; Start 12/02/18 at 12:30 Amylase/Lipase/ Protease (Creon ([id number])) 2 cap WITH MEALS PO Last administered on 12/16/18 09:01; Admin Dose 2 CAP; Start 12/02/18 at 18:00 Lactobacillus Acidophilus/ Rhamnosus (Culturelle) 1 cap WITH MEALS PO Last administered on 12/16/18 09:01; Admin Dose 1 CAP; Start 12/05/18 at 18:00 Pantoprazole (Protonix Tab) 40 mg BID@06,18 PO Last administered on 12/16/18 05:28; Admin Dose 40 MG; Start 12/05/18 at 18:00 Heparin Sodium (Porcine) (Heparin (1000 Units/ml)) 7,200 unit PER PROTOCOL PRN IV aPTT<47 Last administered on 12/15/18 06:36; Admin Dose 6,400 UNIT; Start 12/07/18 at 13:00 Heparin Sodium (Porcine) (Heparin (1000 Units/ml)) 3,600 unit PER PROTOCOL PRN IV aPTT<47-57; Start 12/07/18 at 13:00 Heparin Sodium (Porcine) 250 ml @ 16 mls/hr PER PROTOCOL IV Last administered on 12/16/18at 05:37; Admin Dose 10.5 MLS/HR; Start 12/07/18 at 14:00 Methylprednisolone Sodium Succinate (Solu-Medrol) 10 mg BID IV Last administered on 12/16/18at 09:02; Admin Dose 10 MG; Start 12/07/18 at 21:00 Diagnostic Test (Pha) (Accu-Chek) 1 ea Q4 XX Last administered on 12/15/18at 04:49; Admin Dose 1 EA; Start 12/13/18 at 17:00 IV Flush (NS 10 ml) 10 ml Q8 PRN IV IV PROTOCOL; Start 12/13/18 at 21:30 Total Parenteral Nutrition 1,000 ml @ 80 mls/hr Q12H IV Last administered on 12/16/18at 08:11; Admin Dose 80 MLS/HR; Start 12/14/18 at 16:00 Piperacillin Sod/ Tazobactam Sod 100 ml @ 200 mls/hr Q6 IVPB ; Start 12/16/18 at 12:00 CHILO LEE NP Dec 16, 2018 10:33
--- NOTE | 2018-12-16 11:19 | PN ---
Date/Time of Note Date/Time of Note DATE: 12/16/18 TIME: 11:11 Assessment/Plan Lines/Catheters IV C[facility]ter Type (from [email or web address] PICC Line Henao in Place (from [facility] [[email or web address] No Assessment/Plan Chief Complaint/Hosp Course 1. CT findings of pneumatosis intestinalis of right colon and hepatic flexure, concern for ischemia and microperforation of right colon; repeat ct noted with continued interval progression of colonic pneumatosis involving the proximal colon again suggestive for gangrenous bowel; hemodynamically stable, abdominal pain is improving -continues abx per ID -judicious fluids -continue n.p.o. for now> TPN -close monitoring -Will require transfer to tertiary center for possible thrombectomy/revascularization, vascular optimization prior to surgical inter vention> pending tx 2. Portal venous thrombosis, thrombosis of superior mesenteric vein; vascular s urgery consult noted: Dr. Westbrook spoke with vascular team whose recommendation is to transfer to tertiary center -Anticoagulation per medical team 3. Peripancreatic fluid with concern for acute pancreatitis; amylase and lipase within normal limits -fluid mgt 4. Liver cirrhosis with generalized anasarca -Hepatic optimization -Fluid management 5. Pleural effusion, pericardial effusion -Fluid management -Per cards/pulm 6. SLE c acute flare: steroids and colchicine -Per rheumatology 7. Obesity BMI: 34 -diet and exercise optimization -encourage weight loss 8. Leukocytosis: -antibiotics per id 9. Hypochromic anemia: -Monitor and transfuse as needed 10. Thrombocytosis: improving -dvt prophylaxis -Anticoagulation Thank you. Patient seen and examined in collaboration with Dr. Sanjay Westbrook. Subjective 24 Hr Interval Summary WBC uptrending. Clinically unchanged. Pending transfer. No fevers, chills, sob, congested cough, cp, palpitations, crouch, dizziness, nausea, vomiting, diarrhea, dysuria. Exam/Review of Systems Vital Signs Vitals Vital Signs Date Temp Pulse Resp B/P (MAP) Pulse Ox O2 O2 Flow FiO2 Time Delivery Rate 12/16/18 98.1 58 17 115/71 98 Room Air 07:56 (86) Intake and Output 12/15/18 12/15/18 12/16/18 1515:00 23:00 07:00 IntakeIntake Total 50 ml 50 ml 1100 ml BalanceBalance 50 ml 50 ml 1100 ml Exam Free Text/Dictation Constitutional: alert, oriented Psych: nl mood/affect; No anxiety Head: normocephalic, atraumatic Eyes: nl conjunctiva, EOMI, nl lids, nl sclera ENMT: nl external ears & nose, nl lips & teeth, mucosa pink and moist Neck: supple, non-tender; No jvd Respiratory: normal air movement; No congested cough Cardiovascular: regular rate and rhythm, nl pulses; No edema Gastrointestinal: soft, min tender Left side Genitourinary - Female: nl external genitalia Musculoskeletal: nl extremities to inspection, nl gait and stance Extremities: normal pulses Neurological: nl mental status, nl speech, nl strength Skin: No rash or lesions Lymph: No nl lymph nodes Results Result Diagram: 12/16/18 0327 12/16/18 0428 FARZANA RENEE NP Dec 16, 2018 11:19
[2018-12-16] MEDS: PIPER-TAZO 3.375 GM IV (PMX) 100 ML IVPB SCH ×2 (11:58→18:00)
[2018-12-16 14:03] VITALS: BP 111/67; PULSE 58; RESP 18
[2018-12-16] MEDS ORDERED: FAT EMULSION 20% 250 ML IV SCH ×2 (16:00→16:30)
--- NOTE | 2018-12-16 16:34 | PDOCDIS ---
Discharge Instructions DIAGNOSIS Discharge Diagnosis 1. pneumatosis intestinalis of the right colon and hepatic flexure with suspicion of bowel ischemia 2. 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 Acute pancreatitis 4.Lupus flare 5. Chronic liver cirrhosis with history of esophageal varices 6. HX of extrinsic gastric ulcers 7. Lupus Pericarditis 8. Hx Raynaud's Syndrome 9. Obesity 10. GI bleed CONDITION [id number] Patient Condition: [id number] Stable HOME CARE INSTRUCTIONS: [id number] Special Diet: [id number] NPO FOLLOW UP/APPOINTMENTS Follow-up Plan Further care and management per [facility] CHILO LEE NP Dec 16, 2018 16:34
[2018-12-16] MEDS ORDERED: PIPE3.374 IVPB (16:38)
[2018-12-16] MEDS ORDERED: LACT1CAP28 PO (16:38)
[2018-12-16] MEDS ORDERED: Colchicine PO (16:38)
[2018-12-16] MEDS ORDERED: LIPA1CAP6 PO (16:38)
[2018-12-16] MEDS ORDERED: METH40VI IV (16:38)
--- NOTE | 2018-12-16 16:50 | DS ---
Date/Time of Note Date/Time of Note DATE: 12/16/18 TIME: 16:49 Discharge Summary Admission/Discharge Info Admit Date/Time Nov 29, 2018 at 06:15 Discharge Date/Time Discharge Diagnosis 1. pneumatosis intestinalis of the right colon and hepatic flexure with suspic ion of bowel ischemia 2. 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 Acute pancreatitis 4.Lupus flare 5. Chronic liver cirrhosis with history of esophageal varices 6. HX of extrinsic gastric ulcers 7. Lupus Pericarditis 8. Hx Raynaud's Syndrome 9. Obesity 10. GI bleed Patient Condition: Stable Consults 1. Dr. Delvis Fried 2. Dr. Rafy Solis 3. Dr. Albino Coleman 4. Dr. Sanjay Westbrook 5. Dr. Guru Terry 6. Dr. Arnulfo Joseph Hospital Course This is a 33-year-old female with history of autoimmune disorder with lupus, rheumatoid arthritis, hypertension, recent diagnosis of extensive gastric ulcer who was brought to the hospital due to reports of increased abdominal pain. Patient was found on initial CT scan of the abdomen to have pancreatitis on November 29, 2018. She was optimized with IV hydration. She still persisted with abdominal pain and repeat CT scan of the abdomen demonstrated pneumatosis intestinalis of the right colon and hepatic flexure with suspicion of bowel ischemia with several foci of free air in the right lower quadrant worrisome for microperforation of the right colon. She was seen by surgeon for this issue. Hemodynamically the patient has been stable and we did optimize her with IV antibiotics and judicious fluids. 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 Vascular surgeon did see the patient and did recommend anticoagulation. During patient's hospitalization we did monitor if the patient would clinically improve however she did persist with inability to tolerate oral intake. During her hospitalization it did appear her pancreatitis did improve and she was placed on Creon for this per GI recommendations. We did follow-up abdominal imaging for the patient on December 12, 2018 that did show continued interval progression of colonic pneumatosis involving the proximal colon again suggestive for gangrenous bowel. There is also generalized small and large bowel wall thickening with more pronounced involvement of the colon that was suspect representing third spacing of fluids versus colitis. After discussion with care team he was suspect that because of this may have been from portal vein thrombosis versus superior mesenteric vein thrombosis. Patient did have suspicion of gangrenous bowel per repeat imaging but did not clinically show symptoms aligning with gangrenous bowel. After discussion it was agreed that patient should be transferred to tertiary care center for possible TIPS and/or thrombectomy. She was otherwise optimized medically. She did have lupus flare for which she was seen by director human services and placed on appropriate steroid medication. She had a history of chronic liver cirrhosis with history of esophageal varices and she was placed on beta- tavon. She was also continued on PPI medication for her extrinsic gastric ulcers. 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 During her course of stay patient did remain stable. After discussion with Dr. Cordero at [facility] he was plan for patient be transferred there for further management and care. The plan of care was discussed with the patient and she verbalized understanding. On the day of discharge patient was in stable condition Discussed POC with Dr. Noriega Mesa Dennis Active Scripts [Colchicine] 0.6 MG TAB No Conflict Check, 0.6 MG PO BID, #60 Prov:CHILO LEE NP 12/16/18 Methylprednisolone Sodium Succinate PF (Solu-Medrol PF) 40 Mg/1 Ml Vial, 10 MG IV BID for 14 Days, VIAL Prov:CHILO LEE NP 12/16/18 Lqvqpu-Thqgnouj-Mvcgziu* (Rhonda NIETO* 24,000) 24,000 L-76,000-120,000 Unit Capsule., 2 CAP PO WITH MEALS, #120 Prov:CHILO LEE NP 12/16/18 Lactobacillus Rhamnosus GG (Culturelle) 1 Each Capsule, 1 CAP PO WITH MEALS, #120 CAP Prov:CHILO LEE NP 12/16/18 Dqphfbpodmro-Ffib-Ifagnrtn,Iso (ZOSYN 3.375 GM GALAXY BAG) 3.375 Gm/50 Ml Fro z.piggy, 3.375 GM IVPB Q6, #7 EA Prov:CHILO LEE NP 12/16/18 Cyclobenzaprine Hcl* (Cyclobenzaprine Hcl*) 10 Mg Tablet, 10 MG PO TID, #15 TAB Prov:MICKY CHAN MD 11/26/18 Tramadol HCl (Tramadol HCl) 50 Mg Tablet, 50 MG PO Q4 PRN for PAIN, #20 TAB Prov:MICKY CHAN MD 11/26/18 Sucralfate* (Carafate*) 1 Gm/10 Ml Susp, 1 GM PO QID for 30 Days, #1 EA 2 Refills Prov:LIUDMILA DUMONT MD 11/17/18 Acetaminophen* (Tylenol*) 325 Mg Tablet, 650 MG PO Q6H PRN for .PAIN 1-3 OR TEMP for 1 Day, TAB Prov:LIUDMILA DUMONT MD 11/17/18 Nadolol (Corgard) 40 Mg Tablet, 20 MG PO BID for 15 Days, #30 TAB Prov:LIUDMILA DUMONT MD 11/17/18 Pantoprazole* (Pantoprazole*) 40 Mg Tablet.dr, 40 MG PO BID@06,18 for 30 Days, #60 TAB 1 Refill Prov:LIUDMILA DUMONT MD 11/17/18 Reported Medications Amlodipine Besylate* (Amlodipine Besylate*) 10 Mg Tablet, 5 MG PO BID, #30 TAB 11/29/18 Calcium Carbonate/Vitamin D3 (Calcium 500 mg Chewable Tablet) 1 Each Tab.chew, 1 EACH PO DAILY, TAB.CHEW 11/14/18 Azathioprine* (Imuran*) 50 Mg Tab, 100 MG PO DAILY, TAB 11/14/18 Discontinued Reported Medications Prednisone* (Prednisone*) 5 Mg Tab, 5 MG PO DAILY, TAB 11/14/18 Ergocalciferol (Vitamin D2) (VITAMIN D2) 50,000 Unit Capsule, 62955 UNIT PO QMONDAY 09/22/18 Discontinued Scripts Ondansetron Hcl* (Zofran*) 8 Mg Tablet, 8 MG PO Q6H PRN for NAUSEA AND OR VOMITING, #20 TAB Prov:JENNY RAWLS MD 11/20/18 Levofloxacin* (Levaquin*) 750 Mg Tablet, 750 MG PO DAILY for 7 Days, TAB Prov:JENNY RAWLS MD 11/20/18 Metoclopramide Hcl* (Metoclopramide Hcl*) 10 Mg Tablet, 10 MG PO QID for 10 Days, #40 TAB Prov:LIUDMILA DUMONT MD 11/17/18 Follow-up Plan Further care and management per [facility] Primary Care Provider [facility] Time spent on discharge: > 30 minutes Pending Labs Laboratory Tests Test 12/15/18 17:54 12/15/18 21:57 12/15/18 23:35 12/16/18 01:00 Bedside 147 136 Glucose mg/dL (70-220) mg/dL (70-220) Activated > 180.0 Partial Thrombo Sec (23.0-35.0 plast Time ) Stool Occult POSITIVE (NEGA Blood TIVE) Test 12/16/18 01:55 12/16/18 03:27 12/16/18 04:28 12/16/18 05:30 Bedside 132 149 Glucose mg/dL (70-220) mg/dL (70-220) White Blood 16.0 Count 10^3/ul (4.8-1 0.8) Red Blood 3.55 Count 10^6/ul (4.20- 5.40) Hemoglobin 8.8 g/dl (12.0-16. 0) Hematocrit 30.8 % (37.0-47.0) Mean 86.8 Corpuscular fl (82.0-101.0 Volume ) Mean 24.8 Corpuscular pg (29.0-33.0) Hemoglobin Mean 28.6 Corpuscular g/dl (32.0-37. Hemoglobin Conc 0) ent Red Cell 18.6 Distribution % (11.5-14.5) Width Platelet Count 294 10^3/UL (140-4 15) Mean Platelet 10.9 Volume fl (7.4-10.4) Immature 0.900 Granulocytes % % (0.001-0.429 ) Neutrophils % 90.2 % (39.0-77.0) Lymphocytes % 1.1 % (15.0-51.0) Monocytes % 7.6 % (0.0-11.0) Eosinophils % 0.1 % (0.0-7.0) Basophils % 0.1 % (0.0-2.0) Nucleated Red 0.9 Blood Cells % /100WBC (0.0-0 .0) Immature 0.140 Granulocytes # 10^3/ul (0.0-0 .031) Neutrophils # 14.4 10^3/ul (1.6-7 .5) Lymphocytes # 0.2 10^3/ul (0.8-2 .9) Monocytes # 1.2 10^3/ul (0.3-0 .9) Eosinophils # 0.0 10^3/ul (0.0-0 .5) Basophils # 0.0 10^3/ul (0.0-0 .1) Nucleated Red 0.2 Blood Cells # 10^3/ul (0.0-0 .0) Activated 32.0 Partial Thrombo Sec (23.0-35.0 plast Time ) Phosphorus 4.5 Level mg/dl (2.5-4.9 ) Magnesium 2.0 Level mg/dl (1.7-2.5 ) Sodium Level 138 mmol/L (135-14 4) Potassium 4.2 Level mmol/L (3.5-5. 1) Chloride Level 106 mmol/L (97-110 ) Carbon Dioxide 27 Level mmol/L (21-31) Anion Gap 5 (5-13) Blood Urea 18 Nitrogen mg/dl (7-20) Creatinine 0.39 mg/dl (0.44-1. 00) Est Glomerular > 60 Filtrat mL/min (>60) Rate mL/min Glucose Level 153 mg/dl (70-220) Calcium Level 8.7 mg/dl (8.4-10. 2) Test 12/16/18 08:10 12/16/18 09:05 12/16/18 12:35 12/16/18 13:30 Activated > 180.0 32.0 Partial Thrombo Sec (23.0-35.0) Sec (23.0-35.0 plast Time ) Bedside 147 131 Glucose mg/dL (70-220) mg/dL (70-220) Test 12/16/18 14:07 Hemoglobin 8.4 g/dl (12.0-16.0 ) Hematocrit 30.4 % (37.0-47.0) Activated 35.7 Partial Thrombo Sec (23.0-35.0) plast Time CHILO LEE NP Dec 16, 2018 16:50
[2018-12-16] MEDS ORDERED: ACCU-CHEK XX SCH (18:00)
== END 2018-12-16 19:00 | disposition short-term general hospital (02) | DRG 393 ==
LOC: FTE 02:32 → 2NE 06:15 → 6WM 07:38 → 2NE 12-05 16:55
PROVIDERS: ADMIT Hospitalist; ATTEND Internal Medicine
PROC: 02H633Z Insertion of Infusion Device into Right Atrium, Percutaneous Approach (ICD-10-PCS; principal; 2018-12-13)
DX: K63.89 Other specified diseases of intestine (principal); I81 Portal vein thrombosis; K85.90 Acute pancreatitis without necrosis or infection, unspecified; J18.9 Pneumonia, unspecified organism; K55.8 Other vascular disorders of intestine; M32.12 Pericarditis in systemic lupus erythematosus; I31.3 Pericardial effusion (noninflammatory); J90 Pleural effusion, not elsewhere classified; K92.2 Gastrointestinal hemorrhage, unspecified; K74.60 Unspecified cirrhosis of liver; D47.3 Essential (hemorrhagic) thrombocythemia; D64.9 Anemia, unspecified; T38.0X5A Adverse effect of glucocorticoids and synthetic analogues, initial encounter; D72.829 Elevated white blood cell count, unspecified; D50.9 Iron deficiency anemia, unspecified; E66.9 Obesity, unspecified; F32.9 Major depressive disorder, single episode, unspecified; F41.9 Anxiety disorder, unspecified; I73.00 Raynaud's syndrome without gangrene; I10 Essential (primary) hypertension; M06.9 Rheumatoid arthritis, unspecified; M32.9 Systemic lupus erythematosus, unspecified; R19.7 Diarrhea, unspecified; R60.1 Generalized edema; Z89.021 Acquired absence of right finger(s); Z90.81 Acquired absence of spleen; Z68.34 Body mass index [BMI] 34.0-34.9, adult
CPT/HCPCS: 36415; 36569; 71045; 71250; 74176; 74177; 74181; 76604; 76705; 76937; 80048; 80053; 80061; 81001; 81025; 82150; 82270; 82787; 82962; 83036; 83605; 83690; 83735; 84100; 84134; 84145; 84439; 84443; 84478; 85014; 85018; 85025; 85610; 85651; 85730; 86038; 86140; 86200; 86226; 86430; 87045; 93306; C9113; J0692; J1170; J1644; J2185; J2270; J2405; J2543; J2765; J2920; J2930; J3475; J7030; J7042; J7500; J7512; Q9967

== ENCOUNTER 2018-12-20 16:07 | Inpatient (IN) | payer OTHER ==
[~2018-12-20] VITALS: Ht 162.6 cm; Wt 84.0 kg
[~2018-12-20 16:07] MED LIST changes: +AMLO-147 PO; +Colchicine PO; -ERGO500013 PO; +LACT1CAP28 PO; -LEVO750T25 PO; +LIPA1CAP6 PO; +METH40VI IV; -METO10TA3 PO; -ONDA8TAB9 PO; +PIPE3.374 IVPB; -PRED5TAB PO
[2018-12-20 22:46] VITALS: Ht 162.6 cm; Wt 84.0 kg
[2018-12-20] MEDS ORDERED: SOD CHLORIDE 0.9% 1,000 ML IV SCH (23:08)
[2018-12-20] MEDS ORDERED: BISACODYL (EC) 5 MG TAB PO PRN (23:30)
[2018-12-20] MEDS ORDERED: ACETAMINOPHEN 325 MG TAB PO PRN (23:30)
[2018-12-20] MEDS ORDERED: NACL 0.9% 3 ML SYG IV SCH (23:30)
[2018-12-20] MEDS ORDERED: DOCUSATE SODIUM 100 MG CAP PO PRN (23:30)
[2018-12-20] MEDS: HYDROmorphONE 0.5 MG/0.5 ML SYG IV PRN (23:35)
[2018-12-21 00:05] VITALS: BP 126/75; PULSE 72
--- NOTE | 2018-12-21 00:51 | HP ---
Date/Time of Note Date/Time of Note DATE: 12/21/18 TIME: 00:51 Assessment/Plan VTE Prophylaxis Pharmacological prophylaxis: apixaban Lines/Catheters IV [facility]ter Type (from [facility]): PICC Line Central line still needed: Yes (Clinical condition clinical, IV medications) Assessment/Plan Hospital Course This is a 33-year-old female being admitted to the [facility] floor for: 1. Abdominal pain -CT scan of the abdomen showing acute pancreatitis (November 29, 2018) -Repeat CT scan of the abdomen on December 06, 2018 showed pneumatosis intest inalis of the right colon and hepatic flexure with suspicion of bowel ischemia with several foci of free air in the right lower quadrant worrisome for microperforation of the right colon. - Continue abx treatment. -repeat CT scan of the abdomen with IV and oral contrast 12/12/18: continued interval progression of colonic pneumatosis involving the proximal colon again suggestive for gangrenous bowel. There is generalized small and large bowel wall thickening with more pronounced involvement of the colon that could represent third spacing of fluid versus colitis -Repeat CT scan on 12/17/2018 at [facility] [place] showed:CT scan with IV contrast of the abdomen pelvis performed which showed extensive portal venous system thrombosis noted. Vascular collaterals described above. Right colonic wall thickening raising suspicion for ischemia due to venous thrombosis. Asci nataly fluid. - no surgical intervention was performed at the tertiary center. Patient was started on Eliquis and full liquids, consider TPN. She continues to have pain at the current time. - Will monitor the patient on clear liquid diet put on bowel regimen. Pain management. will consult GI and Surgery, consider reconsultation with rheumatology, vascular surgery in the a.m. [facility]. 2. 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 Initial consult note is available from the vascular surgeon however I do not see any follow-up note. Patient was apparently discontinued from heparin drip and started on Eliquis 5 mg p.o. twice daily. Will need to investigate this further by following up with the tertiary care center in the a.m. to get a better idea of her hospital course there. 3. Acute pancreatitis - improved -Continue on Creon -Full liquid diet 4.Lupus flare -We will need to reconsult with rheumatology. -On IV steroids 5. Chronic liver cirrhosis with history of esophageal varices -Remains on beta-tavon 6. 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 Hx Raynaud's Syndrome - hx right mid finger amputation - continue precautions 9. Obesity - Weight reduction was advised 10. GI bleed -Hemoglobin appears stable. Monitor closely. GI consultation in the a.m. 11 DVT GI prophylaxis: Eliquis, acid tavon Further treatment strategy will be implemented as per the clinical course Result Diagram: 12/20/18 2334 12/20/18 2334 Results 24hrs Laboratory Tests Test 12/20/18 23:34 White Blood Count 17.8 H Red Blood Count 3.39 L Hemoglobin 8.4 L Hematocrit 27.9 L Mean Corpuscular Volume 82.3 Mean Corpuscular Hemoglobin 24.8 L Mean Corpuscular Hemoglobin Concent 30.1 L Red Cell Distribution Width 17.7 H Platelet Count 204 # Mean Platelet Volume 10.7 H Immature Granulocytes % 0.700 H Neutrophils % 80.0 H Lymphocytes % 5.5 L Monocytes % 12.6 H Eosinophils % 1.0 Basophils % 0.2 Nucleated Red Blood Cells % 1.5 H Immature Granulocytes # 0.120 H Neutrophils # 14.2 H Lymphocytes # 1.0 Monocytes # 2.2 H Eosinophils # 0.2 Basophils # 0.0 Nucleated Red Blood Cells # 0.3 H Sodium Level 140 Potassium Level 3.7 Chloride Level 105 Carbon Dioxide Level 28 Anion Gap 7 Blood Urea Nitrogen 12 Creatinine 0.38 L Est Glomerular Filtrat Rate mL/min > 60 Glucose Level 92 Calcium Level 8.6 Magnesium Level 2.1 Total Bilirubin 1.1 Direct Bilirubin 0.00 Indirect Bilirubin 1.1 Aspartate Amino Transf (AST/SGOT) 43 Alanine Aminotransferase (ALT/SGPT) 64 Alkaline Phosphatase 119 Total Protein 5.8 L Albumin 2.8 L Globulin 3.00 Albumin/Globulin Ratio 0.93 HPI/ROS Admit Date/Time Admit Date/Time Dec 20, 2018 at 22:20 Hx of Present Illness Chief complaint abdominal pain This is a 33-year-old female with history of autoimmune disorder with lupus, rheumatoid arthritis, hypertension, recent diagnosis of extensive gastric ulcer who returned from [facility] after being evaluated for splenic vein thrombosis.Patient originally presented to [facility] on November 29, 2018 and was found to have pink otitis on CT scan. As her symptoms persisted she had a repeat CT scan which demonstrated pneumatosis intestinalis of the right colon and hepatic flexure with suspicion of bowel ischemia with several foci of free air in the right lower quadrant worrisome for microperforation of the right colon. She was seen by surgeon for this issue. Hemodynamically the patient has been stable and we did optimize her with IV antibiotics and judicious fluids. 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 Vascular surgeon did see the patient and did recommend anticoagulation. During patient's hospitalization we did monitor if the patient would clinically improve however she did persist with inability to tolerate oral intake. During her hospitalization it did appear her pancreatitis did improve and she was placed on Creon for this per GI recommendations. We did follow-up abdominal imaging for the patient on December 12, 2018 that did show continued interval progression of colonic pneumatosis involving the proximal colon again suggestive for gangrenous bowel. There is also generalized small and large bowel wall thickening with more pronounced involvement of the colon that was suspect representing third spacing of fluids versus colitis. Recommendation was for the patient to be transferred to higher level of care for further evaluation and possible TIPS procedure. Upon review of the chart from the transferring facility I do see that the patient was evaluated by the vascular surgeon and plan was to start the patient on Eliquis and p.o. diet if there was no sequelae of PV thrombosis and if there was usually edematous small bowel that there would be consideration for TIPS. Patient had a repeat CT scan with IV contrast of the abdomen pelvis performed which showed extensive portal venous system thrombosis noted. Vascular collaterals described above. Right colonic wall thickening raising suspicion for ischemia due to venous thrombosis. Ascites fluid. It appears that the patient was on heparin drip and on TPN however patient reports to me that she was discontinued on the heparin drip and she was started on Eliquis and then transfer back to [facility]. She states that she is unclear as to why she did not have any procedures performed. Upon review of the medical record a do see the initial consultation note with the vascular surgeon however I do not see a fol low-up note. Patient does report that she continues to have abdominal pain. She is also having difficulty having bowel movements. Allergies: Avocado, vancomycin Medications: See MAR ROS Const: As per HPI Eyes : No pain discharge or redness or change in visual acuity ENT: No pain, sore throat, congestion, congestion, dysphagia or discharge Respiratory: No shortness of breath, cough, sputum, wheezing, or pleuritic pain Cardiovascular: No chest pain, palpitation, PND, or edema GI : n as per HPI Genitourinary: No dysuria, hematuria, flank pain , discharge or CVA tenderness Musculoskeletal: No joint pain, back pain, neck pain, restricted range of motion in neck or joints Skin: No rash, bruising or hives Neuro: No headache, dizziness, syncope, seizure, focal weakness Endocrine: No polyuria, polydipsia, temperature intolerance Psych: No hallucination, depression, anxiety or suicidal ideation PMH/Family/Social Past Medical History Pneumatosis intestinalis of the right colon and hepatic flexure Portal vein thrombosis Pancreatitis Lupus flare Chronic liver cirrhosis history of esophageal varices History of extrinsic gastric ulcers Lupus pericarditis History of Raynaud's syndrome Obesity GI bleed Medications Current Medications Sodium Chloride 1,000 ml @ 80 mls/hr [id number] IV Last administered on 12/20/18at 23:50; Admin Dose 80 MLS/HR; Start 12/20/18 at 23:08 IV Flush (NS 3 ml) 3 ml PER PROTOCOL IV ; Start 12/20/18 at 23:30 Ondansetron HCl (Zofran Inj) 4 mg Q6H PRN IV NAUSEA/VOMITING; Start 12/20/18 at 23:30 Acetaminophen (Tylenol Tab) 650 mg Q6H PRN PO .PAIN 1-3 OR TEMP; Start 12/20/18 at 23:30 Hydromorphone HCl (Dilaudid) 1 mg Q4H PRN IV .SEVERE PAIN 7-10 Last administered on 12/20/18at 23:35; Admin Dose 1 MG; Start 12/20/18 at 23:30 Docusate Sodium (Colace) 100 mg Q12H PRN PO .CONSTIPATION Last administered on 12/20/18at 23:35; Admin Dose 100 MG; Start 12/20/18 at 23:30 Bisacodyl (Dulcolax) 5 mg DAILY PRN PO .CONSTIPATION; Start 12/20/18 at 23:30 Coded Allergies: avocado (Verified Allergy, Unknown, bumps inside her mouth, 11/16/18) vancomycin (Verified Allergy, Unknown, 11/14/18) Past Surgical History Splenectomy, finger amputation Past Surgical Hx: other Family History Significant Family History: no pertinent family hx Social History Alcohol Use: none Smoking Status: Never smoker Drug Use: none Exam/Review of Systems Vital Signs Vitals Vital Signs Date Temp Pulse Resp B/P (MAP) Pulse Ox O2 O2 Flow FiO2 Time Delivery Rate 12/21/18 98.6 72 126/75 100 00:05 (92) Exam Exam General: Patient is a pleasant female currently lying in bed in mild abdominal discomfort HEENT: Atraumatic, normocephalic. The pupils are equal, round and reactive. Extraocular motor are intact Neck: Supple with full range of motion. No rigidity or meningismus Chest: Nontender Lungs: Clear to auscultation bilaterally no crackles rales or wheezing Heart: Normal S1-S2, Regular rhythm and rate. No murmur, S3, or S4 Abdomen: Soft, mild tenderness palpation of the epigastric area, normal bowel sounds Extremities: Normal to inspection, no edema no cyanosis Neurologic: Normal mental status, speech normal, cranial nerves II through XII are intact, motor and sensory are intact EDISON DOUGLAS Dec 21, 2018 00:51
[2018-12-21 02:16] VITALS: BP 116/73; PULSE 63; RESP 17
[2018-12-21] MEDS: PIPER-TAZO 3.375 GM IV (PMX) 100 ML IVPB SCH ×5 (02:19→23:08)
[2018-12-21] MEDS ORDERED: DEXTROSE 50% 50 ML SYRINGE IV PRN ×2 (04:00)
[2018-12-21] MEDS ORDERED: GLUCOSE GEL 15 GRAM TUBE PO PRN ×2 (04:00)
[2018-12-21] MEDS ORDERED: GLUCAGON 1 MG INJ IM PRN (04:00)
[2018-12-21] MEDS ORDERED: GLUCOSE GEL 15 GRAM TUBE BUCCAL PRN (04:00)
[2018-12-21] MEDS: ONDANSETRON 4 MG INJ IV PRN (04:41)
[2018-12-21] MEDS: HYDROmorphONE 0.5 MG/0.5 ML SYG IV PRN ×3 (04:43→23:07)
[2018-12-21] MEDS ORDERED: DOCUSATE SODIUM 100 MG CAP PO PRN (05:30)
[2018-12-21] MEDS: INSULIN ASPART [NOVOLOG] 3 ML PEN SC SCH ×4 (05:45→23:07)
[2018-12-21] MEDS: PANTOPRAZOLE (EC) 40 MG TAB PO SCH ×2 (05:45→18:18)
[2018-12-21 08:15] VITALS: BP 117/69; PULSE 59; RESP 18
[2018-12-21] MEDS: METHYLPREDNISOLONE 40 MG INJ IV SCH ×2 (08:19→20:43)
[2018-12-21] MEDS: POLYETHYLENE GLYCOL 17 GM PACKET PO SCH (08:19)
[2018-12-21] MEDS: SUCRALFATE (100 MG/ML) 10ML CUP PO SCH ×4 (08:19→20:41)
[2018-12-21] MEDS: COLCHICINE 0.6 MG CAP PO SCH ×2 (08:19→20:40)
[2018-12-21] MEDS: CREON (24K-76K-120K) 1 CAP PO SCH ×3 (08:20→18:18)
[2018-12-21] MEDS: LACTOBACILLUS RHAMNOSUS CAP PO SCH ×2 (08:20→20:41)
[2018-12-21] MEDS: NADOLOL 40 MG TAB PO SCH ×2 (08:22→20:42)
[2018-12-21] MEDS: AZATHIOPRINE 50 MG TAB PO SCH (08:24)
[2018-12-21] MEDS: CYCLOBENZAPRINE 10 MG TAB PO SCH ×2 (08:24→12:45)
[2018-12-21] MEDS: APIXABAN 5 MG TABLET PO SCH ×2 (08:24→20:39)
[2018-12-21] MEDS: CALCIUM/VITAMIN D (500/200) TAB PO SCH (08:25)
[2018-12-21] MEDS: AMLODIPINE 5 MG TAB PO SCH ×2 (08:27→20:41)
--- NOTE | 2018-12-21 12:01 | CONS ---
Assessment/Plan Assessment/Plan Hospital Course (Demo Recall) 1. Abdominal pain with extensive portal venous system thrombosis, right colonic wall thickening concern for ischemia secondary to venous thrombosis; abdominal pain is improving; status post transfer to [facility] without surgical intervention -We will need oncology consultant notes from [facility]> already requested -judicious fluids -Clear liquids okay -close monitoring 2. Portal venous thrombosis, extensive portal venous thrombosis; -Anticoagulation -As above 3. Leukocytosis: No infectious symptoms; currently on steroids -monitor 4. Liver cirrhosis with generalized anasarca -Hepatic optimization -Fluid management 5. Pleural effusion, pericardial effusion -Fluid management -Per cards/pulm 6. SLE c acute flare: steroids and colchicine -Per rheumatology 7. Obesity BMI: 34 -diet and exercise optimization -encourage weight loss 8. Hypochromic anemia: -Monitor and transfuse as needed Thank you. Patient seen and examined in collaboration with Dr. Sanjay Westbrook. Consultation Date/Type/Reason Admit Date/Time Dec 20, 2018 at 22:20 Date of Consultation: Dec 21, 2018 Type of Consult Surgical Reason for Consultation Abdominal pain, colonic ischemia Requesting Provider: EDISON DOUGLAS Date/Time of Note DATE: 12/21/18 TIME: 11:39 Hx of Present Illness Sakshi Chase is a 33-year-old woman who we were initially asked to see with complaints of abdominal pain, initial CT findings of pneumatosis intestinalis of the right colon and hepatic flexure with concern for ischemia and microperforation. She was noted to have PV thrombosis and was sent to tertiary center for possible thrombectomy/revascularization. She returns from [facility], with a performed additional CT with portography which noted extensive portal venous system thrombosis, right colonic wall thickening raising suspicion for ischemia due to venous thrombosis. She was started on Eliquis for anticoagulation and no surgical intervention was performed. Records from that center were incomplete, particularly surgeries follow-up notes which we will obtain. Currently she reports abdominal pain is much improved. She denies f jelly, chills, congested cough, chest pain, palpitations, nausea, vomiting, diarrhea, dysuria, skin changes. General surgery was asked to evaluate. 12 point was reviewed and is negative except as stated in hpi. Past Medical History Severe arthritis, rheumatoid Chronic SLE History of gastritis History of gastric ulcers Hypertension History of splenectomy Status post finger amputation secondary to Raynaud's syndrome Chronic liver cirrhosis with history of Esophageal varices EGD Home Meds Active Scripts [Colchicine] 0.6 MG TAB No Conflict Check, 0.6 MG PO BID, #60 Prov:CHILO LEE NP 12/16/18 Methylprednisolone Sodium Succinate PF (Solu-Medrol PF) 40 Mg/1 Ml Vial, 10 MG IV BID for 14 Days, VIAL Prov:CHILO LEE NP 12/16/18 Efavvt-Tirkuifh-Ilvvdhd* (Rhonda DR* 24,000) 24,000 L-76,000-120,000 Unit Capsule.dr, 2 CAP PO WITH MEALS, #120 Prov:CHILO LEE NP 12/16/18 Lactobacillus Rhamnosus GG (Culturellchante) 1 Each Capsule, 1 CAP PO WITH MEALS, #120 CAP Prov:CHILO LEE NP 12/16/18 Rnlymbfvukxq-Iopv-Fnsrfghn,Iso (ZOSYN 3.375 GM GALAXY BAG) 3.375 Gm/50 Ml Froz.piggy, 3.375 GM IVPB Q6, #7 EA Prov:CHILO LEE NP 12/16/18 Cyclobenzaprine Hcl* (Cyclobenzaprine Hcl*) 10 Mg Tablet, 10 MG PO TID, #15 TAB Prov:MICKY CHAN MD 11/26/18 Tramadol HCl (Tramadol HCl) 50 Mg Tablet, 50 MG PO Q4 PRN for PAIN, #20 TAB Prov:MICKY CHAN MD 11/26/18 Sucralfate* (Carafate*) 1 Gm/10 Ml Susp, 1 GM PO QID for 30 Days, #1 EA 2 Refills Prov:LIUDMILA DUMONT MD 11/17/18 Acetaminophen* (Tylenol*) 325 Mg Tablet, 650 MG PO Q6H PRN for .PAIN 1-3 OR TEMP for 1 Day, TAB Prov:LIUDMILA DUMONT MD 11/17/18 Nadolol (Corgard) 40 Mg Tablet, 20 MG PO BID for 15 Days, #30 TAB Prov:LIUDMILA DUMONT MD 11/17/18 Pantoprazole* (Pantoprazole*) 40 Mg Tablet.dr, 40 MG PO BID@06,18 for 30 Days, #60 TAB 1 Refill Prov:LIUDMILA DUMONT MD 11/17/18 Reported Medications Amlodipine Besylate* (Amlodipine Besylate*) 10 Mg Tablet, 5 MG PO BID, #30 TAB 11/29/18 Calcium Carbonate/Vitamin D3 (Calcium 500 mg Chewable Tablet) 1 Each Tab.chew, 1 EACH PO DAILY, TAB.CHEW 11/14/18 Azathioprine* (Imuran*) 50 Mg Tab, 100 MG PO DAILY, TAB 11/14/18 Discontinued Reported Medications Prednisone* (Prednisone*) 5 Mg Tab, 5 MG PO DAILY, TAB 11/14/18 Ergocalciferol (Vitamin D2) (VITAMIN D2) 50,000 Unit Capsule, 81465 UNIT PO QMONDAY 09/22/18 Discontinued Scripts Ondansetron Hcl* (Zofran*) 8 Mg Tablet, 8 MG PO Q6H PRN for NAUSEA AND OR VOMITING, #20 TAB Prov:JENNY RAWLS MD 11/20/18 Levofloxacin* (Levaquin*) 750 Mg Tablet, 750 MG PO DAILY for 7 Days, TAB Prov:JENNY RAWLS MD 11/20/18 Metoclopramide Hcl* (Metoclopramide Hcl*) 10 Mg Tablet, 10 MG PO QID for 10 Days, #40 TAB Prov:LIUDMILA DUMONT MD 11/17/18 Medications Current Medications Sodium Chloride 1,000 ml @ 80 mls/hr [id number] IV Last administered on 12/20/18at 23:50; Admin Dose 80 MLS/HR; Start 12/20/18 at 23:08 IV Flush (NS 3 ml) 3 ml PER PROTOCOL IV ; Start 12/20/18 at 23:30 Ondansetron HCl (Zofran Inj) 4 mg Q6H PRN IV NAUSEA/VOMITING Last administered on 12/21/18at 04:41; Admin Dose 4 MG; Start 12/20/18 at 23:30 Acetaminophen (Tylenol Tab) 650 mg Q6H PRN PO .PAIN 1-3 OR TEMP; Start 12/20/18 at 23:30 Hydromorphone HCl (Dilaudid) 1 mg Q4H PRN IV .SEVERE PAIN 7-10 Last administered on 12/21/18at 04:43; Admin Dose 1 MG; Start 12/20/18 at 23:30 Docusate Sodium (Colace) 100 mg Q12H PRN PO .CONSTIPATION Last administered on 12/20/18at 23:35; Admin Dose 100 MG; Start 12/20/18 at 23:30 Bisacodyl (Dulcolax) 5 mg DAILY PRN PO .CONSTIPATION; Start 12/20/18 at 23:30 Amlodipine Besylate (Norvasc) 5 mg BID PO ; Start 12/21/18 at 09:00 Azathioprine (Imuran) 100 mg DAILY PO Last administered on 12/21/18 08:24; Admin Dose 100 MG; Start 12/21/18 at 09:00 Cyclobenzaprine HCl (Flexeril) 10 mg TID PO Last administered on 12/21/18 08:24; Admin Dose 10 MG; Start 12/21/18 at 09:00 Lactobacillus Acidophilus/ Rhamnosus (Culturelle) 1 cap BID PO Last administered on 12/21/18 08:20; Admin Dose 1 CAP; Start 12/21/18 at 09:00 Amylase/Lipase/ Protease (Creon ([id number])) 2 cap WITH MEALS PO Last administered on 12/21/18 08:20; Admin Dose 2 CAP; Start 12/21/18 at 08:00 Methylprednisolone Sodium Succinate (Solu-Medrol) 10 mg BID IV Last administered on 12/21/18 08:19; Admin Dose 10 MG; Start 12/21/18 at 09:00 Pantoprazole (Protonix Tab) 40 mg BID@06,18 PO Last administered on 12/21/18at 05:45; Admin Dose 40 MG; Start 12/21/18 at 06:00 Sucralfate (Carafate Susp) 1 gm QID PO Last administered on 12/21/18 08:19; Admin Dose 1 GM; Start 12/21/18 at 09:00 Calcium/Vitamin D (Oyster Shell/ Vit-D (500/200)) 1 tab DAILY PO Last admin istered on 12/21/18 08:25; Admin Dose 1 TAB; Start 12/21/18 at 09:00 Colchicine (Colchicine) 0.6 mg BID PO Last administered on 12/21/18 08:19; Admin Dose 0.6 MG; Start 12/21/18 at 09:00 Nadolol (Corgard) 20 mg BID PO Last administered on 12/21/18at 08:22; Admin Dose 20 MG; Start 12/21/18 at 09:00 Apixaban (Eliquis) 5 mg BID PO Last administered on 12/21/18at 08:24; Admin Dose 5 MG; Start 12/21/18 at 09:00 Piperacillin Sod/ Tazobactam Sod 100 ml @ 200 mls/hr Q6 IVPB Last administered on 12/21/18at 08:44; Admin Dose 200 MLS/HR; Start 12/21/18 at 02:00 Insulin Aspart (Novolog Insulin Pen) NOVOLOG *MILD* ALGORI... Q6 SC ; Start 12/21/18 at 06:00 Miscellaneous Information 1 ea NOTE XX ; Start 12/21/18 at 04:00 Glucose (Glutose) 15 gm Q15M PRN PO DECREASED GLUCOSE; Start 12/21/18 at 04:00 Glucose (Glutose) 22.5 gm Q15M PRN PO DECREASED GLUCOSE; Start 12/21/18 at 04:00 Dextrose (D50w Syringe) 25 ml Q15M PRN IV DECREASED GLUCOSE; Start 12/21/18 at 04:00 Dextrose (D50w Syringe) 50 ml Q15M PRN IV DECREASED GLUCOSE; Start 12/21/18 at 04:00 Glucagon (Glucagen) 1 mg Q15M PRN IM DECREASED GLUCOSE; Start 12/21/18 at 04:00 Glucose (Glutose) 15 gm Q15M PRN BUCCAL DECREASED GLUCOSE; Start 12/21/18 at 04:00 Docusate Sodium (Colace) 100 mg BID PRN PO CONSTIPATION; Start 12/21/18 at 05:30 Polyethylene Glycol (Miralax) 17 gm DAILY PO Last administered on 12/21/18at 08:19; Admin Dose 17 GM; Start 12/21/18 at 09:00 Allergies: Coded Allergies: avocado (Verified Allergy, Unknown, bumps inside her mouth, 11/16/18) vancomycin (Verified Allergy, Unknown, 11/14/18) Past Surgical History As above Past Surgical Hx: other Family History Significant Family History: no pertinent family hx Social History Alcohol Use: none Smoking Status: Never smoker Drug Use: none Exam/Review of Systems Exam Vitals Vital Signs Date Temp Pulse Resp B/P (MAP) Pulse Ox O2 O2 Flow FiO2 Time Delivery Rate 12/21/18 98.2 59 18 117/69 91 Room Air 08:15 (85) Intake and Output 12/20/18 12/20/18 12/21/18 1515:00 23:00 07:00 IntakeIntake Total 518 ml BalanceBalance 518 ml Exam Constitutional: alert, oriented Psych: nl mood/affect; No anxiety Head: normocephalic, atraumatic Eyes: nl conjunctiva, EOMI, nl lids, nl sclera ENMT: nl external ears & nose, nl lips & teeth, mucosa pink and moist Neck: supple, non-tender; No jvd Respiratory: normal air movement; No congested cough Cardiovascular: regular rate and rhythm, nl pulses; No edema Gastrointestinal: soft, min tender Left side Genitourinary - Female: nl external genitalia Musculoskeletal: nl extremities to inspection, nl gait and stance Extremities: normal pulses Neurological: nl mental status, nl speech, nl strength Skin: No rash or lesions, abdominal bruising Lymph: No nl lymph nodes Results Result Diagram: 12/21/18 0432 12/21/18 0432 Results 24hrs Laboratory Tests Test 12/20/18 23:34 12/21/18 04:32 12/21/18 05:45 White Blood Count 17.8 H 16.0 H Red Blood Count 3.39 L 3.50 L Hemoglobin 8.4 L 8.6 L Hematocrit 27.9 L 28.5 L Mean Corpuscular Volume 82.3 81.4 L Mean Corpuscular Hemoglobin 24.8 L 24.6 L Mean Corpuscular Hemoglobin Concent 30.1 L 30.2 L Red Cell Distribution Width 17.7 H 17.8 H Platelet Count 204 # 219 Mean Platelet Volume 10.7 H 10.8 H Immature Granulocytes % 0.700 H 0.600 H Neutrophils % 80.0 H 71.9 Lymphocytes % 5.5 L 9.2 L Monocytes % 12.6 H 13.9 H Eosinophils % 1.0 4.3 Basophils % 0.2 0.1 Nucleated Red Blood Cells % 1.5 H 1.7 H Immature Granulocytes # 0.120 H 0.090 H Neutrophils # 14.2 H 11.5 H Lymphocytes # 1.0 1.5 Monocytes # 2.2 H 2.2 H Eosinophils # 0.2 0.7 H Basophils # 0.0 0.0 Nucleated Red Blood Cells # 0.3 H 0.3 H Sodium Level 140 141 Potassium Level 3.7 3.8 Chloride Level 105 104 Carbon Dioxide Level 28 29 Anion Gap 7 8 Blood Urea Nitrogen 12 12 Creatinine 0.38 L 0.37 L Est Glomerular Filtrat Rate mL/min > 60 > 60 Glucose Level 92 79 Calcium Level 8.6 8.7 Magnesium Level 2.1 2.0 Total Bilirubin 1.1 1.4 H Direct Bilirubin 0.00 0.00 Indirect Bilirubin 1.1 1.4 H Aspartate Amino Transf (AST/SGOT) 43 40 Alanine Aminotransferase (ALT/SGPT) 64 69 Alkaline Phosphatase 119 123 H Total Protein 5.8 L 5.7 L Albumin 2.8 L 2.7 L Globulin 3.00 3.00 Albumin/Globulin Ratio 0.93 0.90 Bedside Glucose 87 Medications Medication Current Medications Sodium Chloride 1,000 ml @ 80 mls/hr [id number] IV Last administered on 12/20/18at 23:50; Admin Dose 80 MLS/HR; Start 12/20/18 at 23:08 IV Flush (NS 3 ml) 3 ml PER PROTOCOL IV ; Start 12/20/18 at 23:30 Ondansetron HCl (Zofran Inj) 4 mg Q6H PRN IV NAUSEA/VOMITING Last administered on 12/21/18at 04:41; Admin Dose 4 MG; Start 12/20/18 at 23:30 Acetaminophen (Tylenol Tab) 650 mg Q6H PRN PO .PAIN 1-3 OR TEMP; Start 12/20/18 at 23:30 Hydromorphone HCl (Dilaudid) 1 mg Q4H PRN IV .SEVERE PAIN 7-10 Last administered on 12/21/18at 04:43; Admin Dose 1 MG; Start 12/20/18 at 23:30 Docusate Sodium (Colace) 100 mg Q12H PRN PO .CONSTIPATION Last administered on 12/20/18at 23:35; Admin Dose 100 MG; Start 12/20/18 at 23:30 Bisacodyl (Dulcolax) 5 mg DAILY PRN PO .CONSTIPATION; Start 12/20/18 at 23:30 Amlodipine Besylate (Norvasc) 5 mg BID PO ; Start 12/21/18 at 09:00 Azathioprine (Imuran) 100 mg DAILY PO Last administered on 12/21/18 08:24; Admin Dose 100 MG; Start 12/21/18 at 09:00 Cyclobenzaprine HCl (Flexeril) 10 mg TID PO Last administered on 12/21/18 08:24; Admin Dose 10 MG; Start 12/21/18 at 09:00 Lactobacillus Acidophilus/ Rhamnosus (Culturelle) 1 cap BID PO Last administered on 12/21/18 08:20; Admin Dose 1 CAP; Start 12/21/18 at 09:00 Amylase/Lipase/ Protease (Creon ([id number])) 2 cap WITH MEALS PO Last administered on 12/21/18 08:20; Admin Dose 2 CAP; Start 12/21/18 at 08:00 Methylprednisolone Sodium Succinate (Solu-Medrol) 10 mg BID IV Last administered on 12/21/18 08:19; Admin Dose 10 MG; Start 12/21/18 at 09:00 Pantoprazole (Protonix Tab) 40 mg BID@06,18 PO Last administered on 12/21/18 05:45; Admin Dose 40 MG; Start 12/21/18 at 06:00 Sucralfate (Carafate Susp) 1 gm QID PO Last administered on 12/21/18 08:19; Admin Dose 1 GM; Start 12/21/18 at 09:00 Calcium/Vitamin D (Oyster Shell/ Vit-D (500/200)) 1 tab DAILY PO Last administered on 12/21/18 08:25; Admin Dose 1 TAB; Start 12/21/18 at 09:00 Colchicine (Colchicine) 0.6 mg BID PO Last administered on 12/21/18 08:19; Admin Dose 0.6 MG; Start 12/21/18 at 09:00 Nadolol (Corgard) 20 mg BID PO Last administered on 12/21/18 08:22; Admin Dose 20 MG; Start 12/21/18 at 09:00 Apixaban (Eliquis) 5 mg BID PO Last administered on 12/21/18 08:24; Admin Dose 5 MG; Start 12/21/18 at 09:00 Piperacillin Sod/ Tazobactam Sod 100 ml @ 200 mls/hr Q6 IVPB Last administered on 12/21/18at 08:44; Admin Dose 200 MLS/HR; Start 12/21/18 at 02:00 Insulin Aspart (Novolog Insulin Pen) NOVOLOG *MILD* ALGORI... Q6 SC ; Start 12/21/18 at 06:00 Miscellaneous Information 1 ea NOTE XX ; Start 12/21/18 at 04:00 Glucose (Glutose) 15 gm Q15M PRN PO DECREASED GLUCOSE; Start 12/21/18 at 04:00 Glucose (Glutose) 22.5 gm Q15M PRN PO DECREASED GLUCOSE; Start 12/21/18 at 04:00 Dextrose (D50w Syringe) 25 ml Q15M PRN IV DECREASED GLUCOSE; Start 12/21/18 at 04:00 Dextrose (D50w Syringe) 50 ml Q15M PRN IV DECREASED GLUCOSE; Start 12/21/18 at 04:00 Glucagon (Glucagen) 1 mg Q15M PRN IM DECREASED GLUCOSE; Start 12/21/18 at 04:00 Glucose (Glutose) 15 gm Q15M PRN BUCCAL DECREASED GLUCOSE; Start 12/21/18 at 04:00 Docusate Sodium (Colace) 100 mg BID PRN PO CONSTIPATION; Start 12/21/18 at 05:30 Polyethylene Glycol (Miralax) 17 gm DAILY PO Last administered on 12/21/18at 08:19; Admin Dose 17 GM; Start 12/21/18 at 09:00 FARZANA RENEE NP Dec 21, 2018 11:49
[2018-12-21] MEDS ORDERED: HYDROCODONE/APAP (5/325) TAB PO PRN (13:00)
[2018-12-21 15:16] VITALS: BP 120/70; PULSE 61; RESP 18
[2018-12-21] MEDS: oxyCODONE 5 MG TAB PO PRN (15:47)
--- NOTE | 2018-12-21 15:54 | CONS ---
Assessment/Plan Assessment/Plan Hospital Course (Demo Recall) Assessment: Epigastric pain-with radiation to left upper quadrant and left flank/back- -CT is concerning for pancreatitis, however lipase and amylase WNL -Repeat abdominal CT on 12/06/2018 showed pneumatosis intestinalis of the right colon and hepatic flexure, raising concerning for bowel ischemia with a several foci of free air in the right lower quadrant worrisome for microperfo ration of the right colon. -Repeat Ct scan 12/13/18-There is continued interval progression of colonic pneumatosis involving the proximal colon again suggestive for gangrenous bowel. There is generalized small and large bowel wall thickening with more pronounced involvement of the colon that could represent third spacing of fluid versus colitis. There is pronounced diffuse intrahepatic portal vein thrombus along with thrombosis of the entirety of the main portal vein, portal confluence, splenic vein and the majority of the superior mesenteric vein. Residual patent mesenteric veins are seen along with cavernous transformation of the portal vein and the presence of portal venous collateral vessels. 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 -Pt consulted by vascular sx -Currently on anti-coagulation -Transferred back from [facility] no surgical procedure was performed Left pleural effusion Diarrhea- resolved Pericardial effusion, moderate -Echocardiogram - Small to borderline moderate circumferential pericardial e ffusion without evidence of tamponade. EF 55% Normocytic Anemia Recent History Hematemesis EGD 11/15/2018 Extensive ulceration of the distal esophagus, rule out opportunistic in fection, biopsies obtained. Grade II/IV esophageal varices. No stigmata of recent bleeding. No th erapeutic intervention required Mild gastritis versus portal gastropathy, Otherwise normal EGD Stomach biopsy negative for H. pylori infection, no evidence of intestinal metaplasia, dysplasia, or malignancy Esophageal ulcer biopsy mucosa showing moderate chronic inflammation no squamous mucosa is present. No goblet cells are identified, no H. pylori is identified, no evidence of dysplasia or malignancy SLE/Rheumatoid arthritis/Raynaud's syndrome -On steroid therapy History of Splenectomy Depression HTN Hx of EGD/colonoscopy 09/26/18 Colonoscopy 09/26/2018colitis more significant in the area of the rectum moderate size internal hemorrhoidsbiopsy negative for evidence of colitis EGD grade II/IV esophageal varices, severe gastritisbiopsies negative for H. pylori Liver cirrhosis- with hx of EV -Hepatitis serology negative -ASMA,AMA- negative Thrombocytosis- resolved Status post finger amputation secondary to Raynaud's syndrome Leukocytosis Plan: Patient started on Eliquis 5mg BID Full liquid diet Monitor labs Continue medical management pain management Steroids and supportive care Imaging and reports from [facility] have already been requested Patient seen in collaboration with Dr. Coleman CC: PAUL COLEMAN MD ; Consultation Date/Type/Reason Admit Date/Time Dec 20, 2018 at 22:20 Date of Consultation: Dec 21, 2018 Type of Consult Gastroenterology Requesting Provider: EDISON DOUGLAS Date/Time of Note DATE: 12/21/18 TIME: 15:54 Hx of Present Illness This Is a 33-year-old female with past medical history of SLE, rheumatoid arthritis, Raynaud's syndrome , liver cirrhosis, gastric ulceration, with recent diagnosis of splenic vein thrombosis who was recently at [facility] and transferred to [facility] for evaluation regarding ma nagement thrombosis. There patient had imaging completed patient was told surgery was not needed at that time heparin drip was switched over to Eliquis p.o. twice daily stabilized and transferred back to [facility] for further evaluation. Currently patient continues to complain of left upper quadrant pain this pain is ongoing she is currently taking oxycodone with good relief no complaints of nausea vomiting or diarrhea at this time she is on a full liquid diet tolerating well. Review of Systems: A 12 system, review was conducted and is negative except as noted in the HPI or here. Past Medical History Home Meds Active Scripts [Colchicine] 0.6 MG TAB No Conflict Check, 0.6 MG PO BID, #60 Prov:CHILO LEE NP 12/16/18 Methylprednisolone Sodium Succinate PF (Solu-Medrol PF) 40 Mg/1 Ml Vial, 10 MG IV BID for 14 Days, VIAL Prov:CHILO LEE NP 12/16/18 Ipcjje-Atuovrpf-Xntxfxn* (Rhonda NIETO* 24,000) 24,000 L-76,000-120,000 Unit Capsule., 2 CAP PO WITH MEALS, #120 Prov:CHILO LEE NP 12/16/18 Lactobacillus Rhamnosus GG (Culturelle) 1 Each Capsule, 1 CAP PO WITH MEALS, #120 CAP Prov:CHILO LEE NP 12/16/18 Dhqqcbhmorhy-Dffc-Czmhbbxq,Iso (ZOSYN 3.375 GM GALAXY BAG) 3.375 Gm/50 Ml Froz.piggy, 3.375 GM IVPB Q6, #7 EA Prov:CHILO LEE NP 12/16/18 Cyclobenzaprine Hcl* (Cyclobenzaprine Hcl*) 10 Mg Tablet, 10 MG PO TID, #15 TAB Prov:MICKY CHAN MD 11/26/18 Tramadol HCl (Tramadol HCl) 50 Mg Tablet, 50 MG PO Q4 PRN for PAIN, #20 TAB Prov:MICKY CHAN MD 11/26/18 Sucralfate* (Carafate*) 1 Gm/10 Ml Susp, 1 GM PO QID for 30 Days, #1 EA 2 Refills Prov:LIUDMILA DUMONT MD 11/17/18 Acetaminophen* (Tylenol*) 325 Mg Tablet, 650 MG PO Q6H PRN for .PAIN 1-3 OR TEMP for 1 Day, TAB Prov:LIUDMILA DUMONT MD 11/17/18 Nadolol (Corgard) 40 Mg Tablet, 20 MG PO BID for 15 Days, #30 TAB Prov:LIUDMILA DUMONT MD 11/17/18 Pantoprazole* (Pantoprazole*) 40 Mg Tablet.dr, 40 MG PO BID@06,18 for 30 Days, #60 TAB 1 Refill Prov:LIUDMILA DUMONT MD 11/17/18 Reported Medications Amlodipine Besylate* (Amlodipine Besylate*) 10 Mg Tablet, 5 MG PO BID, #30 TAB 11/29/18 Calcium Carbonate/Vitamin D3 (Calcium 500 mg Chewable Tablet) 1 Each Tab.chew, 1 EACH PO DAILY, TAB.CHEW 11/14/18 Azathioprine* (Imuran*) 50 Mg Tab, 100 MG PO DAILY, TAB 11/14/18 Discontinued Reported Medications Prednisone* (Prednisone*) 5 Mg Tab, 5 MG PO DAILY, TAB 11/14/18 Ergocalciferol (Vitamin D2) (VITAMIN D2) 50,000 Unit Capsule, 76339 UNIT PO QMONDAY 09/22/18 Discontinued Scripts Ondansetron Hcl* (Zofran*) 8 Mg Tablet, 8 MG PO Q6H PRN for NAUSEA AND OR VOMITING, #20 TAB Prov:JENNY RAWLS MD 11/20/18 Levofloxacin* (Levaquin*) 750 Mg Tablet, 750 MG PO DAILY for 7 Days, TAB Prov:JENNY RAWLS MD 11/20/18 Metoclopramide Hcl* (Metoclopramide Hcl*) 10 Mg Tablet, 10 MG PO QID for 10 Days, #40 TAB Prov:LIUDMILA DUMONT MD 11/17/18 Medications Current Medications IV Flush (NS 3 ml) 3 ml PER PROTOCOL IV ; Start 12/20/18 at 23:30 Ondansetron HCl (Zofran Inj) 4 mg Q6H PRN IV NAUSEA/VOMITING Last administered on 12/21/18at 04:41; Admin Dose 4 MG; Start 12/20/18 at 23:30 Acetaminophen (Tylenol Tab) 650 mg Q6H PRN PO .PAIN 1-3 OR TEMP; Start 12/20/18 at 23:30 Hydromorphone HCl (Dilaudid) 1 mg Q4H PRN IV .SEVERE PAIN 7-10 Last administered on 12/21/18at 04:43; Admin Dose 1 MG; Start 12/20/18 at 23:30 Docusate Sodium (Colace) 100 mg Q12H PRN PO .CONSTIPATION Last administered on 12/20/18at 23:35; Admin Dose 100 MG; Start 12/20/18 at 23:30 Bisacodyl (Dulcolax) 5 mg DAILY PRN PO .CONSTIPATION; Start 12/20/18 at 23:30 Amlodipine Besylate (Norvasc) 5 mg BID PO ; Start 12/21/18 at 09:00 Azathioprine (Imuran) 100 mg DAILY PO Last administered on 12/21/18at 08:24; Admin Dose 100 MG; Start 12/21/18 at 09:00 Lactobacillus Acidophilus/ Rhamnosus (Culturelle) 1 cap BID PO Last administered on 12/21/18at 08:20; Admin Dose 1 CAP; Start 12/21/18 at 09:00 Amylase/Lipase/ Protease (Creon ([id number])) 2 cap WITH MEALS PO Last administered on 12/21/18at 12:45; Admin Dose 2 CAP; Start 12/21/18 at 08:00 Methylprednisolone Sodium Succinate (Solu-Medrol) 10 mg BID IV Last administered on 12/21/18at 08:19; Admin Dose 10 MG; Start 12/21/18 at 09:00 Pantoprazole (Protonix Tab) 40 mg BID@06,18 PO Last administered on 12/21/18at 05:45; Admin Dose 40 MG; Start 12/21/18 at 06:00 Sucralfate (Carafate Susp) 1 gm QID PO Last administered on 12/21/18at 12:45; Admin Dose 1 GM; Start 12/21/18 at 09:00 Calcium/Vitamin D (Oyster Shell/ Vit-D (500/200)) 1 tab DAILY PO Last administered on 12/21/18at 08:25; Admin Dose 1 TAB; Start 12/21/18 at 09:00 Colchicine (Colchicine) 0.6 mg BID PO Last administered on 12/21/18at 08:19; Admin Dose 0.6 MG; Start 12/21/18 at 09:00 Nadolol (Corgard) 20 mg BID PO Last administered on 12/21/18at 08:22; Admin Dose 20 MG; Start 12/21/18 at 09:00 Apixaban (Eliquis) 5 mg BID PO Last administered on 12/21/18at 08:24; Admin Dose 5 MG; Start 12/21/18 at 09:00 Piperacillin Sod/ Tazobactam Sod 100 ml @ 200 mls/hr Q6 IVPB Last administered on 12/21/18at 12:44; Admin Dose 200 MLS/HR; Start 12/21/18 at 02:00 Insulin Aspart (Novolog Insulin Pen) NOVOLOG *MILD* ALGORI... Q6 SC ; Start 12/21/18 at 06:00 Miscellaneous Information 1 ea NOTE XX ; Start 12/21/18 at 04:00 Glucose (Glutose) 15 gm Q15M PRN PO DECREASED GLUCOSE; Start 12/21/18 at 04:00 Glucose (Glutose) 22.5 gm Q15M PRN PO DECREASED GLUCOSE; Start 12/21/18 at 04:00 Dextrose (D50w Syringe) 25 ml Q15M PRN IV DECREASED GLUCOSE; Start 12/21/18 at 04:00 Dextrose (D50w Syringe) 50 ml Q15M PRN IV DECREASED GLUCOSE; Start 12/21/18 at 04:00 Glucagon (Glucagen) 1 mg Q15M PRN IM DECREASED GLUCOSE; Start 12/21/18 at 04:00 Glucose (Glutose) 15 gm Q15M PRN BUCCAL DECREASED GLUCOSE; Start 12/21/18 at 04:00 Docusate Sodium (Colace) 100 mg BID PRN PO CONSTIPATION; Start 12/21/18 at 05:30 Polyethylene Glycol (Miralax) 17 gm DAILY PO Last administered on 12/21/18at 08:19; Admin Dose 17 GM; Start 12/21/18 at 09:00 Oxycodone HCl (Roxicodone) 5 mg Q4H PRN PO MODERATE PAIN LEVEL 4-6 Last administered on 12/21/18at 15:47; Admin Dose 5 MG; Start 12/21/18 at 15:30 Allergies: Coded Allergies: avocado (Verified Allergy, Unknown, bumps inside her mouth, 11/16/18) vancomycin (Verified Allergy, Unknown, 11/14/18) Past Surgical History Past Surgical Hx: other Social History Alcohol Use: none Smoking Status: Never smoker Drug Use: none Exam/Review of Systems Exam Vitals Vital Signs Date Temp Pulse Resp B/P (MAP) Pulse Ox O2 O2 Flow FiO2 Time Delivery Rate 12/21/18 98.5 61 18 120/70 97 Room Air 15:16 (87) Intake and Output 12/20/18 12/20/18 12/21/18 1515:00 23:00 07:00 IntakeIntake Total 518 ml BalanceBalance 518 ml Exam Exam PHYSICAL EXAMINATION: GENERAL: Chronically ill appearing young woman, alert & oriented x 3, edema/swelling from chronic steroid use- improved SKIN: No lesions. HEAD: Normocephalic, atraumatic, no tenderness. EYES: Pupils equal reactive to light, no discharge. EARS/NOSE AND THROAT: Ears normal, nose normal. NECK: Supple, no masses, thyroid normal. CHEST: Inspection within normal limits. CARDIOVASCULAR: Heart: Regular rate and rhythm RESPIRATORY: Lungs clear to auscultation. GASTROINTESTINAL AND LIVER: Abdomen: obese, soft, epigastric tenderness, non- distended, no hernias, no masses, normoactive bowel sounds. Rectal: Deferred. EXTREMITIES: No cyanosis, clubbing or edema. Right index finger amputated 1 phalanx Results Result Diagram: 12/21/18 0432 12/21/18 0432 Results 24hrs Laboratory Tests Test 12/20/18 23:34 12/21/18 04:32 12/21/18 05:45 12/21/18 12:44 White Blood Count 17.8 H 16.0 H Red Blood Count 3.39 L 3.50 L Hemoglobin 8.4 L 8.6 L Hematocrit 27.9 L 28.5 L Mean Corpuscular 82.3 81.4 L Volume Mean Corpuscular 24.8 L 24.6 L Hemoglobin Mean Corpuscular 30.1 L 30.2 L Hemoglobin Concent Red Cell 17.7 H 17.8 H Distribution Width Platelet Count 204 # 219 Mean Platelet Volume 10.7 H 10.8 H Immature 0.700 H 0.600 H Granulocytes % Neutrophils % 80.0 H 71.9 Lymphocytes % 5.5 L 9.2 L Monocytes % 12.6 H 13.9 H Eosinophils % 1.0 4.3 Basophils % 0.2 0.1 Nucleated Red Blood 1.5 H 1.7 H Cells % Immature 0.120 H 0.090 H Granulocytes # Neutrophils # 14.2 H 11.5 H Lymphocytes # 1.0 1.5 Monocytes # 2.2 H 2.2 H Eosinophils # 0.2 0.7 H Basophils # 0.0 0.0 Nucleated Red Blood 0.3 H 0.3 H Cells # Sodium Level 140 141 Potassium Level 3.7 3.8 Chloride Level 105 104 Carbon Dioxide Level 28 29 Anion Gap 7 8 Blood Urea Nitrogen 12 12 Creatinine 0.38 L 0.37 L Est Glomerular > 60 > 60 Filtrat Rate mL/min Glucose Level 92 79 Calcium Level 8.6 8.7 Magnesium Level 2.1 2.0 Total Bilirubin 1.1 1.4 H Direct Bilirubin 0.00 0.00 Indirect Bilirubin 1.1 1.4 H Aspartate Amino 43 40 Transf (AST/SGOT) Alanine 64 69 Aminotransferase (AL T/SGPT) Alkaline Phosphatase 119 123 H Total Protein 5.8 L 5.7 L Albumin 2.8 L 2.7 L Globulin 3.00 3.00 Albumin/Globulin 0.93 0.90 Ratio Bedside Glucose 87 93 Medications Medication Current Medications IV Flush (NS 3 ml) 3 ml PER PROTOCOL IV ; Start 12/20/18 at 23:30 Ondansetron HCl (Zofran Inj) 4 mg Q6H PRN IV NAUSEA/VOMITING Last administered on 12/21/18 04:41; Admin Dose 4 MG; Start 12/20/18 at 23:30 Acetaminophen (Tylenol Tab) 650 mg Q6H PRN PO .PAIN 1-3 OR TEMP; Start 12/20/18 at 23:30 Hydromorphone HCl (Dilaudid) 1 mg Q4H PRN IV .SEVERE PAIN 7-10 Last administered on 12/21/18 04:43; Admin Dose 1 MG; Start 12/20/18 at 23:30 Docusate Sodium (Colace) 100 mg Q12H PRN PO .CONSTIPATION Last administered on 12/20/18 23:35; Admin Dose 100 MG; Start 12/20/18 at 23:30 Bisacodyl (Dulcolax) 5 mg DAILY PRN PO .CONSTIPATION; Start 12/20/18 at 23:30 Amlodipine Besylate (Norvasc) 5 mg BID PO ; Start 12/21/18 at 09:00 Azathioprine (Imuran) 100 mg DAILY PO Last administered on 12/21/18 08:24; Admin Dose 100 MG; Start 12/21/18 at 09:00 Lactobacillus Acidophilus/ Rhamnosus (Culturelle) 1 cap BID PO Last administered on 12/21/18 08:20; Admin Dose 1 CAP; Start 12/21/18 at 09:00 Amylase/Lipase/ Protease (Creon ([id number])) 2 cap WITH MEALS PO Last administered on 12/21/18 12:45; Admin Dose 2 CAP; Start 12/21/18 at 08:00 Methylprednisolone Sodium Succinate (Solu-Medrol) 10 mg BID IV Last administered on 12/21/18 08:19; Admin Dose 10 MG; Start 12/21/18 at 09:00 Pantoprazole (Protonix Tab) 40 mg BID@06,18 PO Last administered on 12/21/18 05:45; Admin Dose 40 MG; Start 12/21/18 at 06:00 Sucralfate (Carafate Susp) 1 gm QID PO Last administered on 12/21/18 12:45; Admin Dose 1 GM; Start 12/21/18 at 09:00 Calcium/Vitamin D (Oyster Shell/ Vit-D (500/200)) 1 tab DAILY PO Last administered on 12/21/18at 08:25; Admin Dose 1 TAB; Start 12/21/18 at 09:00 Colchicine (Colchicine) 0.6 mg BID PO Last administered on 12/21/18at 08:19; Admin Dose 0.6 MG; Start 12/21/18 at 09:00 Nadolol (Corgard) 20 mg BID PO Last administered on 12/21/18at 08:22; Admin Dose 20 MG; Start 12/21/18 at 09:00 Apixaban (Eliquis) 5 mg BID PO Last administered on 12/21/18at 08:24; Admin Dose 5 MG; Start 12/21/18 at 09:00 Piperacillin Sod/ Tazobactam Sod 100 ml @ 200 mls/hr Q6 IVPB Last administered on 12/21/18at 12:44; Admin Dose 200 MLS/HR; Start 12/21/18 at 02:00 Insulin Aspart (Novolog Insulin Pen) NOVOLOG *MILD* ALGORI... Q6 SC ; Start 12/21/18 at 06:00 Miscellaneous Information 1 ea NOTE XX ; Start 12/21/18 at 04:00 Glucose (Glutose) 15 gm Q15M PRN PO DECREASED GLUCOSE; Start 12/21/18 at 04:00 Glucose (Glutose) 22.5 gm Q15M PRN PO DECREASED GLUCOSE; Start 12/21/18 at 04:00 Dextrose (D50w Syringe) 25 ml Q15M PRN IV DECREASED GLUCOSE; Start 12/21/18 at 04:00 Dextrose (D50w Syringe) 50 ml Q15M PRN IV DECREASED GLUCOSE; Start 12/21/18 at 04:00 Glucagon (Glucagen) 1 mg Q15M PRN IM DECREASED GLUCOSE; Start 12/21/18 at 04:00 Glucose (Glutose) 15 gm Q15M PRN BUCCAL DECREASED GLUCOSE; Start 12/21/18 at 04:00 Docusate Sodium (Colace) 100 mg BID PRN PO CONSTIPATION; Start 12/21/18 at 05:30 Polyethylene Glycol (Miralax) 17 gm DAILY PO Last administered on 12/21/18at 08:19; Admin Dose 17 GM; Start 12/21/18 at 09:00 Oxycodone HCl (Roxicodone) 5 mg Q4H PRN PO MODERATE PAIN LEVEL 4-6 Last administered on 12/21/18at 15:47; Admin Dose 5 MG; Start 12/21/18 at 15:30 MONIQUE DE LA ROSA Dec 21, 2018 15:54
--- NOTE | 2018-12-21 17:34 | PN ---
Date/Time of Note Date/Time of Note DATE: 12/21/18 TIME: 17:33 Assessment/Plan VTE Prophylaxis Risk score (from Nsg)>0 risk: 1 SCD applied (from Nsg): Yes Pharmacological prophylaxis: apixaban Lines/Catheters IV Catheter Type (from Nrs): PICC Line Central line still needed: Yes Urinary Cath still in place: No Assessment/Plan Hospital Course 1. Abdominal pain -CT scan of the abdomen showing acute pancreatitis (November 29, 2018) -Repeat CT scan of the abdomen on December 06, 2018 showed pneumatosis intestinalis of the right colon and hepatic flexure with suspicion of bowel ischemia with several foci of free air in the right lower quadrant worrisome for microperforation of the right colon. - Continue abx treatment. -repeat CT scan of the abdomen with IV and oral contrast 12/12/18: continued interval progression of colonic pneumatosis involving the proximal colon again suggestive for gangrenous bowel. There is generalized small and large bowel wall thickening with more pronounced involvement of the colon that could represent third spacing of fluid versus colitis -Repeat CT scan on 12/17/2018 at [facility] showed:CT scan with IV contrast of the abdomen pelvis performed which showed extensive portal venous system thrombosis noted. Vascular collaterals described above. Right colonic wall thickening raising suspicion for ischemia due to venous thrombosis. Ascites fluid. - no surgical intervention was performed at the tertiary center. Patient was started on Eliquis and full liquids, consider TPN. She continues to have pain at the current time. Will monitor the patient on clear liquid diet put on bowel regimen. Pain management. Will need to reconsult all the previous consultants in the a.m. repeat CBC CMP. - 2. 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 Initial consult note is available from the vascular surgeon however I do not see any follow-up note. Patient was apparently discontinued from heparin drip and started on Eliquis 5 mg p.o. twice daily. Will need to investigate this further by following up with the tertiary care center in the a.m. to get a better idea of her hospital course there. 3. Acute pancreatitis - improved -Continue on Creon -Full liquid diet 4.Lupus flare -We will need to reconsult with rheumatology. -On IV steroids 5. Chronic liver cirrhosis with history of esophageal varices -Remains on beta-tavon 6. 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 Hx Raynaud's Syndrome - hx right mid finger amputation - continue precautions 9. Obesity - Weight reduction was advised 10. GI bleed -Hemoglobin appears stable. Monitor closely. GI consultation in the a.m. 11 DVT GI prophylaxis: Eliquis, acid tavon Further treatment strategy will be implemented as per the clinical course Result Diagram: 12/21/18 0432 12/21/18 0432 Results 24hrs Laboratory Tests Test 12/20/18 23:34 12/21/18 04:32 12/21/18 05:45 12/21/18 12:44 White Blood Count 17.8 H 16.0 H Red Blood Count 3.39 L 3.50 L Hemoglobin 8.4 L 8.6 L Hematocrit 27.9 L 28.5 L Mean Corpuscular 82.3 81.4 L Volume Mean Corpuscular 24.8 L 24.6 L Hemoglobin Mean Corpuscular 30.1 L 30.2 L Hemoglobin Concent Red Cell 17.7 H 17.8 H Distribution Width Platelet Count 204 # 219 Mean Platelet Volume 10.7 H 10.8 H Immature 0.700 H 0.600 H Granulocytes % Neutrophils % 80.0 H 71.9 Lymphocytes % 5.5 L 9.2 L Monocytes % 12.6 H 13.9 H Eosinophils % 1.0 4.3 Basophils % 0.2 0.1 Nucleated Red Blood 1.5 H 1.7 H Cells % Immature 0.120 H 0.090 H Granulocytes # Neutrophils # 14.2 H 11.5 H Lymphocytes # 1.0 1.5 Monocytes # 2.2 H 2.2 H Eosinophils # 0.2 0.7 H Basophils # 0.0 0.0 Nucleated Red Blood 0.3 H 0.3 H Cells # Sodium Level 140 141 Potassium Level 3.7 3.8 Chloride Level 105 104 Carbon Dioxide Level 28 29 Anion Gap 7 8 Blood Urea Nitrogen 12 12 Creatinine 0.38 L 0.37 L Est Glomerular > 60 > 60 Filtrat Rate mL/min Glucose Level 92 79 Calcium Level 8.6 8.7 Magnesium Level 2.1 2.0 Total Bilirubin 1.1 1.4 H Direct Bilirubin 0.00 0.00 Indirect Bilirubin 1.1 1.4 H Aspartate Amino 43 40 Transf (AST/SGOT) Alanine 64 69 Aminotransferase (AL T/SGPT) Alkaline Phosphatase 119 123 H Total Protein 5.8 L 5.7 L Albumin 2.8 L 2.7 L Globulin 3.00 3.00 Albumin/Globulin 0.93 0.90 Ratio Bedside Glucose 87 93 Subjective 24 Hr Interval Summary Free Text/Dictation Having abdominal pain, pain with eating Exam/Review of Systems Exam Vitals Vital Signs Date Temp Pulse Resp B/P (MAP) Pulse Ox O2 O2 Flow FiO2 Time Delivery Rate 12/21/18 98.5 61 18 120/70 97 Room Air 15:16 (87) Intake and Output 12/20/18 12/20/18 12/21/18 1515:00 23:00 07:00 IntakeIntake Total 518 ml BalanceBalance 518 ml Constitutional: alert, oriented, well developed Psych: no complaints, nl mood/affect Head: normocephalic, atraumatic Eyes: nl conjunctiva, EOMI, nl lids, nl sclera, PERRL ENMT: nl external ears & nose, nl lips & teeth, nl nasal mucosa & septum Neck: supple, non-tender Respiratory: clear to auscultation, normal air movement Cardiovascular: regular rate and rhythm, nl pulses Gastrointestinal: soft, nl liver, spleen, non-tender Musculoskeletal: nl extremities to inspection, nl gait and stance Extremities: normal pulses Neurological: ASSET AVAILABILITY LEADER II-XII intact, nl mental status, nl speech, nl strength Skin: nl turgor; No rash or lesions Lymph: nl lymph nodes Results Results 24hrs Laboratory Tests Test 12/20/18 23:34 12/21/18 04:32 12/21/18 05:45 12/21/18 12:44 White Blood Count 17.8 H 16.0 H Red Blood Count 3.39 L 3.50 L Hemoglobin 8.4 L 8.6 L Hematocrit 27.9 L 28.5 L Mean Corpuscular 82.3 81.4 L Volume Mean Corpuscular 24.8 L 24.6 L Hemoglobin Mean Corpuscular 30.1 L 30.2 L Hemoglobin Concent Red Cell 17.7 H 17.8 H Distribution Width Platelet Count 204 # 219 Mean Platelet Volume 10.7 H 10.8 H Immature 0.700 H 0.600 H Granulocytes % Neutrophils % 80.0 H 71.9 Lymphocytes % 5.5 L 9.2 L Monocytes % 12.6 H 13.9 H Eosinophils % 1.0 4.3 Basophils % 0.2 0.1 Nucleated Red Blood 1.5 H 1.7 H Cells % Immature 0.120 H 0.090 H Granulocytes # Neutrophils # 14.2 H 11.5 H Lymphocytes # 1.0 1.5 Monocytes # 2.2 H 2.2 H Eosinophils # 0.2 0.7 H Basophils # 0.0 0.0 Nucleated Red Blood 0.3 H 0.3 H Cells # Sodium Level 140 141 Potassium Level 3.7 3.8 Chloride Level 105 104 Carbon Dioxide Level 28 29 Anion Gap 7 8 Blood Urea Nitrogen 12 12 Creatinine 0.38 L 0.37 L Est Glomerular > 60 > 60 Filtrat Rate mL/min Glucose Level 92 79 Calcium Level 8.6 8.7 Magnesium Level 2.1 2.0 Total Bilirubin 1.1 1.4 H Direct Bilirubin 0.00 0.00 Indirect Bilirubin 1.1 1.4 H Aspartate Amino 43 40 Transf (AST/SGOT) Alanine 64 69 Aminotransferase (AL T/SGPT) Alkaline Phosphatase 119 123 H Total Protein 5.8 L 5.7 L Albumin 2.8 L 2.7 L Globulin 3.00 3.00 Albumin/Globulin 0.93 0.90 Ratio Bedside Glucose 87 93 Medications Medication Current Medications IV Flush (NS 3 ml) 3 ml PER PROTOCOL IV ; Start 12/20/18 at 23:30 Ondansetron HCl (Zofran Inj) 4 mg Q6H PRN IV NAUSEA/VOMITING Last administered on 12/21/18at 04:41; Admin Dose 4 MG; Start 12/20/18 at 23:30 Acetaminophen (Tylenol Tab) 650 mg Q6H PRN PO .PAIN 1-3 OR TEMP; Start 12/20/18 at 23:30 Hydromorphone HCl (Dilaudid) 1 mg Q4H PRN IV .SEVERE PAIN 7-10 Last administered on 12/21/18at 04:43; Admin Dose 1 MG; Start 12/20/18 at 23:30 Docusate Sodium (Colace) 100 mg Q12H PRN PO .CONSTIPATION Last administered on 12/20/18at 23:35; Admin Dose 100 MG; Start 12/20/18 at 23:30 Bisacodyl (Dulcolax) 5 mg DAILY PRN PO .CONSTIPATION; Start 12/20/18 at 23:30 Amlodipine Besylate (Norvasc) 5 mg BID PO ; Start 12/21/18 at 09:00 Azathioprine (Imuran) 100 mg DAILY PO Last administered on 12/21/18 08:24; Admin Dose 100 MG; Start 12/21/18 at 09:00 Lactobacillus Acidophilus/ Rhamnosus (Culturelle) 1 cap BID PO Last administered on 12/21/18 08:20; Admin Dose 1 CAP; Start 12/21/18 at 09:00 Amylase/Lipase/ Protease (Creon (14p-08r-196s)) 2 cap WITH MEALS PO Last administered on 12/21/18 12:45; Admin Dose 2 CAP; Start 12/21/18 at 08:00 Methylprednisolone Sodium Succinate (Solu-Medrol) 10 mg BID IV Last administered on 12/21/18 08:19; Admin Dose 10 MG; Start 12/21/18 at 09:00 Pantoprazole (Protonix Tab) 40 mg BID@06,18 PO Last administered on 12/21/18 05:45; Admin Dose 40 MG; Start 12/21/18 at 06:00 Sucralfate (Carafate Susp) 1 gm QID PO Last administered on 12/21/18 12:45; Admin Dose 1 GM; Start 12/21/18 at 09:00 Calcium/Vitamin D (Oyster Shell/ Vit-D (500/200)) 1 tab DAILY PO Last administered on 12/21/18 08:25; Admin Dose 1 TAB; Start 12/21/18 at 09:00 Colchicine (Colchicine) 0.6 mg BID PO Last administered on 12/21/18 08:19; Admin Dose 0.6 MG; Start 12/21/18 at 09:00 Nadolol (Corgard) 20 mg BID PO Last administered on 12/21/18 08:22; Admin Dose 20 MG; Start 12/21/18 at 09:00 Apixaban (Eliquis) 5 mg BID PO Last administered on 12/21/18 08:24; Admin Dose 5 MG; Start 12/21/18 at 09:00 Piperacillin Sod/ Tazobactam Sod 100 ml @ 200 mls/hr Q6 IVPB Last administered on 12/21/18at 12:44; Admin Dose 200 MLS/HR; Start 12/21/18 at 02:00 Insulin Aspart (Novolog Insulin Pen) NOVOLOG *MILD* ALGORI... Q6 SC ; Start 12/21/18 at 06:00 Miscellaneous Information 1 ea NOTE XX ; Start 12/21/18 at 04:00 Glucose (Glutose) 15 gm Q15M PRN PO DECREASED GLUCOSE; Start 12/21/18 at 04:00 Glucose (Glutose) 22.5 gm Q15M PRN PO DECREASED GLUCOSE; Start 12/21/18 at 04:00 Dextrose (D50w Syringe) 25 ml Q15M PRN IV DECREASED GLUCOSE; Start 12/21/18 at 04:00 Dextrose (D50w Syringe) 50 ml Q15M PRN IV DECREASED GLUCOSE; Start 12/21/18 at 04:00 Glucagon (Glucagen) 1 mg Q15M PRN IM DECREASED GLUCOSE; Start 12/21/18 at 04:00 Glucose (Glutose) 15 gm Q15M PRN BUCCAL DECREASED GLUCOSE; Start 12/21/18 at 04:00 Docusate Sodium (Colace) 100 mg BID PRN PO CONSTIPATION; Start 12/21/18 at 05:30 Polyethylene Glycol (Miralax) 17 gm DAILY PO Last administered on 12/21/18at 08:19; Admin Dose 17 GM; Start 12/21/18 at 09:00 Oxycodone HCl (Roxicodone) 5 mg Q4H PRN PO MODERATE PAIN LEVEL 4-6 Last administered on 12/21/18at 15:47; Admin Dose 5 MG; Start 12/21/18 at 15:30 MICHAEL PARKER MD Dec 21, 2018 17:34
[2018-12-21 20:03] VITALS: BP 130/79; PULSE 72; RESP 18
[2018-12-22 02:26] VITALS: BP 106/57; PULSE 63; RESP 17
[2018-12-22] MEDS: PANTOPRAZOLE (EC) 40 MG TAB PO SCH ×2 (05:57→17:38)
[2018-12-22] MEDS: PIPER-TAZO 3.375 GM IV (PMX) 100 ML IVPB SCH ×4 (05:57→23:11)
[2018-12-22] MEDS: HYDROmorphONE 0.5 MG/0.5 ML SYG IV PRN ×4 (06:02→23:11)
[2018-12-22 08:34] VITALS: BP 112/71; PULSE 58; RESP 18
[2018-12-22] MEDS: NADOLOL 40 MG TAB PO SCH ×2 (09:00→21:14)
[2018-12-22] MEDS: POLYETHYLENE GLYCOL 17 GM PACKET PO SCH (09:12)
[2018-12-22] MEDS: SUCRALFATE (100 MG/ML) 10ML CUP PO SCH ×4 (09:12→21:13)
[2018-12-22] MEDS: METHYLPREDNISOLONE 40 MG INJ IV SCH ×2 (09:12→21:13)
[2018-12-22] MEDS: AMLODIPINE 5 MG TAB PO SCH ×2 (09:14→21:15)
[2018-12-22] MEDS: CALCIUM/VITAMIN D (500/200) TAB PO SCH (09:14)
[2018-12-22] MEDS: LACTOBACILLUS RHAMNOSUS CAP PO SCH ×2 (09:14→21:13)
[2018-12-22] MEDS: APIXABAN 5 MG TABLET PO SCH ×2 (09:14→21:13)
[2018-12-22] MEDS: AZATHIOPRINE 50 MG TAB PO SCH (09:14)
[2018-12-22] MEDS: CREON (24K-76K-120K) 1 CAP PO SCH ×3 (09:14→17:38)
[2018-12-22] MEDS: COLCHICINE 0.6 MG CAP PO SCH ×2 (09:14→21:13)
--- NOTE | 2018-12-22 09:29 | PN ---
Date/Time of Note Date/Time of Note DATE: 12/22/18 TIME: 09:29 Assessment/Plan VTE Prophylaxis Risk score (from Nsg)>0 risk: 1 SCD applied (from Nsg): No SCD contraindicated: low risk/ambulating Pharmacological prophylaxis: apixaban Lines/Catheters IV Catheter Type (from Nrsg): PICC Line Central line still needed: Yes (meds) Urinary Cath still in place: No Assessment/Plan Hospital Course Assessment: Epigastric pain-with radiation to left upper quadrant and left flank/back- -CT is concerning for pancreatitis, however lipase and amylase WNL -Repeat abdominal CT on 12/06/2018 showed pneumatosis intestinalis of the right colon and hepatic flexure, raising concerning for bowel ischemia with a several foci of free air in the right lower quadrant worrisome for microperforation of the right colon. -Repeat Ct scan 12/13/18-There is continued interval progression of colonic pneumatosis involving the proximal colon again suggestive for gangrenous bowel. There is generalized small and large bowel wall thickening with more pronounced involvement of the colon that could represent third spacing of fluid versus colitis. There is pronounced diffuse intrahepatic portal vein thrombus along with thrombosis of the entirety of the main portal vein, portal confluence, splenic vein and the majority of the superior mesenteric vein. Residual patent mesenteric veins are seen along with cavernous transformation of the portal vein and the presence of portal venous collateral vessels. 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 -Pt consulted by vascular sx -Currently on anti-coagulation -Transferred back from [facility] no surgical procedure was performed Left pleural effusion Diarrhea- resolved Pericardial effusion, moderate -Echocardiogram - Small to borderline moderate circumferential pericardial effusion without evidence of tamponade. EF 55% Normocytic Anemia Recent History Hematemesis EGD 11/15/2018 Extensive ulceration of the distal esophagus, rule out opportunistic infection, biopsies obtained. Grade II/IV esophageal varices. No stigmata of recent bleeding. No therapeutic intervention required Mild gastritis versus portal gastropathy, Otherwise normal EGD Stomach biopsy negative for H. pylori infection, no evidence of intestinal metaplasia, dysplasia, or malignancy Esophageal ulcer biopsy mucosa showing moderate chronic inflammation no squamous mucosa is present. No goblet cells are identified, no H. pylori is identified, no evidence of dysplasia or malignancy SLE/Rheumatoid arthritis/Raynaud's syndrome -On steroid therapy History of Splenectomy Depression HTN Hx of EGD/colonoscopy 09/26/18 Colonoscopy 09/26/2018colitis more significant in the area of the rectum moderate size internal hemorrhoidsbiopsy negative for evidence of colitis EGD grade II/IV esophageal varices, severe gastritisbiopsies negative for H. pylori Liver cirrhosis- with hx of EV -Hepatitis serology negative -ASMA,AMA- negative Thrombocytosis- resolved Status post finger amputation secondary to Raynaud's syndrome Leukocytosis- improving Plan: Eliquis 5mg BID Full liquid diet- consider advancing in near future Monitor labs Steroids and supportive care Imaging and reports from [facility] have already been requested- pending Patient seen in collaboration with Dr. Coleman Subjective/Free text: Course reviewed with nursing staff Patient interviewed and examined All labs, imaging and other results reviewed The patient is sitting up in chair, She states upper left abdominal pain is stable. She is tolerting her current diet well without changes in overall symptoms. She denies diarrhea or overt signs of GI bleed, but no w c/o incomplete evacuation. She states her last bowel movement was yesterday. Currently on MiraLAX we will continue to monitor. Discussed with patient importance of ambulation multiple times per day patient verbalized understanding is agreeable Exam PHYSICAL EXAMINATION: GENERAL: Chronically ill appearing young woman, alert & oriented x 3, edema/swelling from chronic steroid use- improved SKIN: No lesions. HEAD: Normocephalic, atraumatic, no tenderness. EYES: Pupils equal reactive to light, no discharge. EARS/NOSE AND THROAT: Ears normal, nose normal. NECK: Supple, no masses, thyroid normal. CHEST: Inspection within normal limits. CARDIOVASCULAR: Heart: Regular rate and rhythm RESPIRATORY: Lungs clear to auscultation. GASTROINTESTINAL AND LIVER: Abdomen: obese, soft, epigastric tenderness, non-distended, no hernias, no masses, normoactive bowel sounds. Rectal: Deferred. EXTREMITIES: No cyanosis, clubbing or edema. Right index finger amputated 1 phalanx Result Diagram: 12/22/18 0441 12/22/18 0441 Results 24hrs Laboratory Tests Test 12/21/18 12:44 12/21/18 18:16 12/21/18 23:06 12/22/18 04:41 Bedside Glucose 93 105 122 White Blood Count 11.0 #H Red Blood Count 3.29 L Hemoglobin 8.0 L Hematocrit 27.1 L Mean Corpuscular 82.4 Volume Mean Corpuscular 24.3 L Hemoglobin Mean Corpuscular 29.5 L Hemoglobin Concent Red Cell 18.6 H Distribution Width Platelet Count 223 Mean Platelet Volume 11.3 H Immature 0.500 H Granulocytes % Neutrophils % 87.8 H Lymphocytes % 4.1 L Monocytes % 7.4 Eosinophils % 0.1 Basophils % 0.1 Nucleated Red Blood 1.7 H Cells % Immature 0.060 H Granulocytes # Neutrophils # 9.7 H Lymphocytes # 0.5 L Monocytes # 0.8 Eosinophils # 0.0 Basophils # 0.0 Nucleated Red Blood 0.2 H Cells # Sodium Level 141 Potassium Level 3.9 Chloride Level 104 Carbon Dioxide Level 30 Anion Gap 7 Blood Urea Nitrogen 11 Creatinine 0.41 L Est Glomerular > 60 Filtrat Rate mL/min Glucose Level 92 Calcium Level 8.9 Total Bilirubin 1.4 H Direct Bilirubin 0.00 Indirect Bilirubin 1.4 H Aspartate Amino 42 Transf (AST/SGOT) Alanine 74 H Aminotransferase (AL T/SGPT) Alkaline Phosphatase 143 H Total Protein 5.7 L Albumin 2.7 L Globulin 3.00 Albumin/Globulin 0.90 Ratio Exam/Review of Systems Exam Vitals Vital Signs Date Temp Pulse Resp B/P (MAP) Pulse Ox O2 O2 Flow FiO2 Time Delivery Rate 12/22/18 98.4 58 18 112/71 96 08:34 (85) 12/21/18 Room Air 15:16 Intake and Output 12/21/18 12/21/18 12/22/18 1515:00 23:00 07:00 IntakeIntake Total 440 ml 460 ml 100 ml BalanceBalance 440 ml 460 ml 100 ml Results Results 24hrs Laboratory Tests Test 12/21/18 12:44 12/21/18 18:16 12/21/18 23:06 12/22/18 04:41 Bedside Glucose 93 105 122 White Blood Count 11.0 #H Red Blood Count 3.29 L Hemoglobin 8.0 L Hematocrit 27.1 L Mean Corpuscular 82.4 Volume Mean Corpuscular 24.3 L Hemoglobin Mean Corpuscular 29.5 L Hemoglobin Concent Red Cell 18.6 H Distribution Width Platelet Count 223 Mean Platelet Volume 11.3 H Immature 0.500 H Granulocytes % Neutrophils % 87.8 H Lymphocytes % 4.1 L Monocytes % 7.4 Eosinophils % 0.1 Basophils % 0.1 Nucleated Red Blood 1.7 H Cells % Immature 0.060 H Granulocytes # Neutrophils # 9.7 H Lymphocytes # 0.5 L Monocytes # 0.8 Eosinophils # 0.0 Basophils # 0.0 Nucleated Red Blood 0.2 H Cells # Sodium Level 141 Potassium Level 3.9 Chloride Level 104 Carbon Dioxide Level 30 Anion Gap 7 Blood Urea Nitrogen 11 Creatinine 0.41 L Est Glomerular > 60 Filtrat Rate mL/min Glucose Level 92 Calcium Level 8.9 Total Bilirubin 1.4 H Direct Bilirubin 0.00 Indirect Bilirubin 1.4 H Aspartate Amino 42 Transf (AST/SGOT) Alanine 74 H Aminotransferase (AL T/SGPT) Alkaline Phosphatase 143 H Total Protein 5.7 L Albumin 2.7 L Globulin 3.00 Albumin/Globulin 0.90 Ratio Medications Medication Current Medications IV Flush (NS 3 ml) 3 ml PER PROTOCOL IV ; Start 12/20/18 at 23:30 Ondansetron HCl (Zofran Inj) 4 mg Q6H PRN IV NAUSEA/VOMITING Last administered on 12/21/18at 04:41; Admin Dose 4 MG; Start 12/20/18 at 23:30 Acetaminophen (Tylenol Tab) 650 mg Q6H PRN PO .PAIN 1-3 OR TEMP; Start 12/20/18 at 23:30 Hydromorphone HCl (Dilaudid) 1 mg Q4H PRN IV .SEVERE PAIN 7-10 Last administered on 12/22/18at 06:02; Admin Dose 1 MG; Start 12/20/18 at 23:30 Docusate Sodium (Colace) 100 mg Q12H PRN PO .CONSTIPATION Last administered on 12/20/18at 23:35; Admin Dose 100 MG; Start 12/20/18 at 23:30 Bisacodyl (Dulcolax) 5 mg DAILY PRN PO .CONSTIPATION; Start 12/20/18 at 23:30 Amlodipine Besylate (Norvasc) 5 mg BID PO Last administered on 12/22/18at 09:14; Admin Dose 5 MG; Start 12/21/18 at 09:00 Azathioprine (Imuran) 100 mg DAILY PO Last administered on 12/22/18at 09:14; Admin Dose 100 MG; Start 12/21/18 at 09:00 Lactobacillus Acidophilus/ Rhamnosus (Culturelle) 1 cap BID PO Last administered on 12/22/18 09:14; Admin Dose 1 CAP; Start 12/21/18 at 09:00 Amylase/Lipase/ Protease (Creon (80q-76a-952r)) 2 cap WITH MEALS PO Last administered on 12/22/18 09:14; Admin Dose 2 CAP; Start 12/21/18 at 08:00 Methylprednisolone Sodium Succinate (Solu-Medrol) 10 mg BID IV Last administered on 12/22/18 09:12; Admin Dose 10 MG; Start 12/21/18 at 09:00 Pantoprazole (Protonix Tab) 40 mg BID@06,18 PO Last administered on 12/22/18 05:57; Admin Dose 40 MG; Start 12/21/18 at 06:00 Sucralfate (Carafate Susp) 1 gm QID PO Last administered on 12/22/18 09:12; Admin Dose 1 GM; Start 12/21/18 at 09:00 Calcium/Vitamin D (Oyster Shell/ Vit-D (500/200)) 1 tab DAILY PO Last administered on 12/22/18 09:14; Admin Dose 1 TAB; Start 12/21/18 at 09:00 Colchicine (Colchicine) 0.6 mg BID PO Last administered on 12/22/18 09:14; Admin Dose 0.6 MG; Start 12/21/18 at 09:00 Nadolol (Corgard) 20 mg BID PO Last administered on 12/21/18 20:42; Admin Dose 20 MG; Start 12/21/18 at 09:00 Apixaban (Eliquis) 5 mg BID PO Last administered on 12/22/18 09:14; Admin Dose 5 MG; Start 12/21/18 at 09:00 Piperacillin Sod/ Tazobactam Sod 100 ml @ 200 mls/hr Q6 IVPB Last administered on 12/22/18 05:57; Admin Dose 200 MLS/HR; Start 12/21/18 at 02:00 Miscellaneous Information 1 ea NOTE XX ; Start 12/21/18 at 04:00 Glucose (Glutose) 15 gm Q15M PRN PO DECREASED GLUCOSE; Start 12/21/18 at 04:00 Glucose (Glutose) 22.5 gm Q15M PRN PO DECREASED GLUCOSE; Start 12/21/18 at 04:00 Dextrose (D50w Syringe) 25 ml Q15M PRN IV DECREASED GLUCOSE; Start 12/21/18 at 04:00 Dextrose (D50w Syringe) 50 ml Q15M PRN IV DECREASED GLUCOSE; Start 12/21/18 at 04:00 Glucagon (Glucagen) 1 mg Q15M PRN IM DECREASED GLUCOSE; Start 12/21/18 at 04:00 Glucose (Glutose) 15 gm Q15M PRN BUCCAL DECREASED GLUCOSE; Start 12/21/18 at 04:00 Docusate Sodium (Colace) 100 mg BID PRN PO CONSTIPATION; Start 12/21/18 at 05:30 Polyethylene Glycol (Miralax) 17 gm DAILY PO Last administered on 12/22/18at 09:12; Admin Dose 17 GM; Start 12/21/18 at 09:00 Oxycodone HCl (Roxicodone) 5 mg Q4H PRN PO MODERATE PAIN LEVEL 4-6 Last administered on 12/21/18at 15:47; Admin Dose 5 MG; Start 12/21/18 at 15:30 MONIQUE DE LA ROSA Dec 22, 2018 09:29
[2018-12-22] MEDS: oxyCODONE 5 MG TAB PO PRN (12:16)
[2018-12-22 15:23] VITALS: BP 116/66; PULSE 67; RESP 18
--- NOTE | 2018-12-22 15:36 | PN ---
Date/Time of Note Date/Time of Note DATE: 12/22/18 TIME: 15:35 Assessment/Plan VTE Prophylaxis Risk score (from Nsg)>0 risk: 2 SCD applied (from Nsg): Yes Pharmacological prophylaxis: heparin Lines/Catheters IV Catheter Type (from Nrs): PICC Line Central line still needed: Yes Urinary Cath still in place: No Assessment/Plan Hospital Course 1. Abdominal pain -CT scan of the abdomen showing acute pancreatitis (November 29, 2018) -Repeat CT scan of the abdomen on December 06, 2018 showed pneumatosis intestinalis of the right colon and hepatic flexure with suspicion of bowel ischemia with several foci of free air in the right lower quadrant worrisome for microperforation of the right colon. - Continue abx treatment. -repeat CT scan of the abdomen with IV and oral contrast 12/12/18: continued interval progression of colonic pneumatosis involving the proximal colon again suggestive for gangrenous bowel. There is generalized small and large bowel wall thickening with more pronounced involvement of the colon that could represent third spacing of fluid versus colitis -Repeat CT scan on 12/17/2018 at [facility] showed:CT scan with IV contrast of the abdomen pelvis performed which showed extensive portal venous system thrombosis noted. Vascular collaterals described above. Right colonic wall thickening raising suspicion for ischemia due to venous thrombosis. Ascites fluid. - no surgical intervention was performed at the tertiary center. Surgeons there recommended conservative management. Patient was started on Eliquis and full liquids . She continues to have pain at the current time. Will monitor the patient on clear liquid diet put on bowel regimen. Pain management. Will need to reconsult all the previous consultants in the a.m. repeat CBC CMP. - Advance diet 2. 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 Initial consult note is available from the vascular surgeon however I do not see any follow-up note. Patient was apparently discontinued from heparin drip and started on Eliquis 5 mg p.o. twice daily. Will need to investigate this further by following up with the tertiary care center in the a.m. to get a better idea of her hospital course there. 3. Acute pancreatitis - improved -Continue on Creon -Full liquid diet 4.Lupus flare -We will need to reconsult with rheumatology. -On IV steroids 5. Chronic liver cirrhosis with history of esophageal varices -Remains on beta-tavon 6. 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 Hx Raynaud's Syndrome - hx right mid finger amputation - continue precautions 9. Obesity - Weight reduction was advised 10. GI bleed -Hemoglobin appears stable. Monitor closely. GI consultation in the a.m. 11 DVT GI prophylaxis: Eliquis, acid tavon Further treatment strategy will be implemented as per the clinical course Result Diagram: 12/22/18 0441 12/22/18 0441 Results 24hrs Laboratory Tests Test 12/21/18 18:16 12/21/18 23:06 12/22/18 04:41 Bedside Glucose 105 122 White Blood Count 11.0 #H Red Blood Count 3.29 L Hemoglobin 8.0 L Hematocrit 27.1 L Mean Corpuscular Volume 82.4 Mean Corpuscular Hemoglobin 24.3 L Mean Corpuscular Hemoglobin Concent 29.5 L Red Cell Distribution Width 18.6 H Platelet Count 223 Mean Platelet Volume 11.3 H Immature Granulocytes % 0.500 H Neutrophils % 87.8 H Lymphocytes % 4.1 L Monocytes % 7.4 Eosinophils % 0.1 Basophils % 0.1 Nucleated Red Blood Cells % 1.7 H Immature Granulocytes # 0.060 H Neutrophils # 9.7 H Lymphocytes # 0.5 L Monocytes # 0.8 Eosinophils # 0.0 Basophils # 0.0 Nucleated Red Blood Cells # 0.2 H Sodium Level 141 Potassium Level 3.9 Chloride Level 104 Carbon Dioxide Level 30 Anion Gap 7 Blood Urea Nitrogen 11 Creatinine 0.41 L Est Glomerular Filtrat Rate mL/min > 60 Glucose Level 92 Calcium Level 8.9 Total Bilirubin 1.4 H Direct Bilirubin 0.00 Indirect Bilirubin 1.4 H Aspartate Amino Transf (AST/SGOT) 42 Alanine Aminotransferase (ALT/SGPT) 74 H Alkaline Phosphatase 143 H Total Protein 5.7 L Albumin 2.7 L Globulin 3.00 Albumin/Globulin Ratio 0.90 Subjective 24 Hr Interval Summary Free Text/Dictation Pain relatively controlled Wants to advance diet Exam/Review of Systems Exam Vitals Vital Signs Date Temp Pulse Resp B/P (MAP) Pulse Ox O2 O2 Flow FiO2 Time Delivery Rate 12/22/18 98.5 67 18 116/66 97 15:23 (83) 12/21/18 Room Air 15:16 Intake and Output 12/21/18 12/21/18 12/22/18 1515:00 23:00 07:00 IntakeIntake Total 440 ml 460 ml 100 ml BalanceBalance 440 ml 460 ml 100 ml Constitutional: alert, oriented, well developed Psych: no complaints, nl mood/affect Head: normocephalic, atraumatic Eyes: nl conjunctiva, EOMI, nl lids, nl sclera, PERRL ENMT: nl external ears & nose, nl lips & teeth, nl nasal mucosa & septum Neck: supple, non-tender Respiratory: clear to auscultation, normal air movement Cardiovascular: regular rate and rhythm, nl pulses Gastrointestinal: soft, nl liver, spleen, non-tender Musculoskeletal: nl extremities to inspection, nl gait and stance Extremities: normal pulses Neurological: FISH PACKER II-XII intact, nl mental status, nl speech, nl strength Skin: nl turgor; No rash or lesions Lymph: nl lymph nodes Results Results 24hrs Laboratory Tests Test 12/21/18 18:16 12/21/18 23:06 12/22/18 04:41 Bedside Glucose 105 122 White Blood Count 11.0 #H Red Blood Count 3.29 L Hemoglobin 8.0 L Hematocrit 27.1 L Mean Corpuscular Volume 82.4 Mean Corpuscular Hemoglobin 24.3 L Mean Corpuscular Hemoglobin Concent 29.5 L Red Cell Distribution Width 18.6 H Platelet Count 223 Mean Platelet Volume 11.3 H Immature Granulocytes % 0.500 H Neutrophils % 87.8 H Lymphocytes % 4.1 L Monocytes % 7.4 Eosinophils % 0.1 Basophils % 0.1 Nucleated Red Blood Cells % 1.7 H Immature Granulocytes # 0.060 H Neutrophils # 9.7 H Lymphocytes # 0.5 L Monocytes # 0.8 Eosinophils # 0.0 Basophils # 0.0 Nucleated Red Blood Cells # 0.2 H Sodium Level 141 Potassium Level 3.9 Chloride Level 104 Carbon Dioxide Level 30 Anion Gap 7 Blood Urea Nitrogen 11 Creatinine 0.41 L Est Glomerular Filtrat Rate mL/min > 60 Glucose Level 92 Calcium Level 8.9 Total Bilirubin 1.4 H Direct Bilirubin 0.00 Indirect Bilirubin 1.4 H Aspartate Amino Transf (AST/SGOT) 42 Alanine Aminotransferase (ALT/SGPT) 74 H Alkaline Phosphatase 143 H Total Protein 5.7 L Albumin 2.7 L Globulin 3.00 Albumin/Globulin Ratio 0.90 Medications Medication Current Medications IV Flush (NS 3 ml) 3 ml PER PROTOCOL IV ; Start 12/20/18 at 23:30 Ondansetron HCl (Zofran Inj) 4 mg Q6H PRN IV NAUSEA/VOMITING Last administered on 12/21/18 04:41; Admin Dose 4 MG; Start 12/20/18 at 23:30 Acetaminophen (Tylenol Tab) 650 mg Q6H PRN PO .PAIN 1-3 OR TEMP; Start 12/20/18 at 23:30 Hydromorphone HCl (Dilaudid) 1 mg Q4H PRN IV .SEVERE PAIN 7-10 Last admini stered on 12/22/18 14:44; Admin Dose 1 MG; Start 12/20/18 at 23:30 Docusate Sodium (Colace) 100 mg Q12H PRN PO .CONSTIPATION Last administered on 12/20/18 23:35; Admin Dose 100 MG; Start 12/20/18 at 23:30 Bisacodyl (Dulcolax) 5 mg DAILY PRN PO .CONSTIPATION; Start 12/20/18 at 23:30 Amlodipine Besylate (Norvasc) 5 mg BID PO Last administered on 12/22/18 09:14; Admin Dose 5 MG; Start 12/21/18 at 09:00 Azathioprine (Imuran) 100 mg DAILY PO Last administered on 12/22/18 09:14; Admin Dose 100 MG; Start 12/21/18 at 09:00 Lactobacillus Acidophilus/ Rhamnosus (Culturelle) 1 cap BID PO Last ad ministered on 12/22/18 09:14; Admin Dose 1 CAP; Start 12/21/18 at 09:00 Amylase/Lipase/ Protease (Creon (54h-40l-659u)) 2 cap WITH MEALS PO Last administered on 12/22/18 12:40; Admin Dose 2 CAP; Start 12/21/18 at 08:00 Methylprednisolone Sodium Succinate (Solu-Medrol) 10 mg BID IV Last administ ered on 12/22/18 09:12; Admin Dose 10 MG; Start 12/21/18 at 09:00 Pantoprazole (Protonix Tab) 40 mg BID@,18 PO Last administered on 12/22/18 05:57; Admin Dose 40 MG; Start 12/21/18 at 06:00 Sucralfate (Carafate Susp) 1 gm QID PO Last administered on 12/22/18 12:40; Admin Dose 1 GM; Start 12/21/18 at 09:00 Calcium/Vitamin D (Oyster Shell/ Vit-D (500/200)) 1 tab DAILY PO Last administered on 12/22/18 09:14; Admin Dose 1 TAB; Start 12/21/18 at 09:00 Colchicine (Colchicine) 0.6 mg BID PO Last administered on 12/22/18 09:14; Admin Dose 0.6 MG; Start 12/21/18 at 09:00 Nadolol (Corgard) 20 mg BID PO Last administered on 12/21/18 20:42; Admin Dose 20 MG; Start 12/21/18 at 09:00 Apixaban (Eliquis) 5 mg BID PO Last administered on 12/22/18 09:14; Admin Dose 5 MG; Start 12/21/18 at 09:00 Piperacillin Sod/ Tazobactam Sod 100 ml @ 200 mls/hr Q6 IVPB Last administered on 12/22/18 12:12; Admin Dose 200 MLS/HR; Start 12/21/18 at 02:00 Miscellaneous Information 1 ea NOTE XX ; Start 12/21/18 at 04:00 Glucose (Glutose) 15 gm Q15M PRN PO DECREASED GLUCOSE; Start 12/21/18 at 04:00 Glucose (Glutose) 22.5 gm Q15M PRN PO DECREASED GLUCOSE; Start 12/21/18 at 04:00 Dextrose (D50w Syringe) 25 ml Q15M PRN IV DECREASED GLUCOSE; Start 12/21/18 at 04:00 Dextrose (D50w Syringe) 50 ml Q15M PRN IV DECREASED GLUCOSE; Start 12/21/18 at 04:00 Glucagon (Glucagen) 1 mg Q15M PRN IM DECREASED GLUCOSE; Start 12/21/18 at 04:00 Glucose (Glutose) 15 gm Q15M PRN BUCCAL DECREASED GLUCOSE; Start 12/21/18 at 04:00 Docusate Sodium (Colace) 100 mg BID PRN PO CONSTIPATION; Start 12/21/18 at 05:30 Polyethylene Glycol (Miralax) 17 gm DAILY PO Last administered on 12/22/18 09:12; Admin Dose 17 GM; Start 12/21/18 at 09:00 Oxycodone HCl (Roxicodone) 5 mg Q4H PRN PO MODERATE PAIN LEVEL 4-6 Last admi nistered on 12/22/18at 12:16; Admin Dose 5 MG; Start 12/21/18 at 15:30 MICHAEL PARKER MD Dec 22, 2018 15:36
--- NOTE | 2018-12-22 16:29 | PN ---
Date/Time of Note Date/Time of Note DATE: 12/22/18 TIME: 16:25 Assessment/Plan Lines/Catheters IV Catheter Type (from [facility]): PICC Line Henao in Place (from [facility]): No Assessment/Plan Chief Complaint/Hosp Course 1. Abdominal pain with extensive portal venous system thrombosis, right colonic wall thickening concern for ischemia secondary to venous thrombosis; abdominal pain is improving. transfer to [facility] [place] without vascular intervention. -Medical/vascular management -No general surgical intervention at this time -Diet as tolerated -Anticoagulation 2. Portal venous thrombosis, extensive portal venous thrombosis; -Anticoagulation -As above 3. Leukocytosis: No infectious symptoms; currently on steroids -monitor 4. Liver cirrhosis with generalized anasarca -Hepatic optimization -Fluid management 5. Pleural effusion, pericardial effusion -Fluid management -Per cards/pulm 6. SLE c acute flare: steroids and colchicine -Per rheumatology 7. Obesity BMI: 34 -diet and exercise optimization -encourage weight loss 8. Hypochromic anemia: -Monitor and transfuse as needed Thank you Subjective 24 Hr Interval Summary No f/c. Min pain. No cp/sob. No cough. No sz. No bleeding. No dysuria. Bowel function. Labs noted. Anticoagulation. Exam/Review of Systems Vital Signs Vitals Vital Signs Date Temp Pulse Resp B/P (MAP) Pulse Ox O2 O2 Flow FiO2 Time Delivery Rate 12/22/18 98.5 67 18 116/66 97 15:23 (83) 12/21/18 Room Air 15:16 Intake and Output 12/21/18 12/21/18 12/22/18 1515:00 23:00 07:00 IntakeIntake Total 440 ml 460 ml 100 ml BalanceBalance 440 ml 460 ml 100 ml Exam Free Text/Dictation Constitutional: alert, oriented Psych: nl mood/affect; No anxiety Head: normocephalic, atraumatic Eyes: nl conjunctiva, EOMI, nl lids, nl sclera ENMT: nl external ears & nose, nl lips & teeth, mucosa pink and moist Neck: supple, non-tender; No jvd Respiratory: normal air movement; No congested cough Cardiovascular: regular rate and rhythm, nl pulses; No edema Gastrointestinal: soft, min tender Left side without rebound/guarding/rigidity. Obese. Genitourinary - Female: nl external genitalia Musculoskeletal: nl extremities to inspection, nl gait and stance Extremities: normal pulses Neurological: nl mental status, nl speech, nl strength Skin: No rash or lesions, abdominal bruising Lymph: No nl lymph nodes Results Result Diagram: 12/22/18 0441 12/22/18 044 MODE BRITO MD Dec 22, 2018 16:29
[2018-12-22 20:14] VITALS: BP 121/79; PULSE 75; RESP 18
--- NOTE | 2018-12-22 21:57 | PN ---
Date/Time of Note Date/Time of Note DATE: 12/22/18 TIME: 21:57 Assessment/Plan Lines/Catheters IV Catheter Type (from [facility]): PICC Line Henao in Place (from [facility]): No Exam/Review of Systems Vital Signs Vitals Vital Signs Date Temp Pulse Resp B/P (MAP) Pulse Ox O2 O2 Flow FiO2 Time Delivery Rate 12/23/18 98.1 54 19 115/65 95 02:14 (82) 12/21/18 Room Air 15:16 Intake and Output 12/22/18 12/22/18 12/23/18 1515:00 23:00 07:00 IntakeIntake Total 800 ml 1100 ml 200 ml BalanceBalance 800 ml 1100 ml 200 ml Results Result Diagram: 12/23/18 0557 12/22/18 0441 FARZANA RENEE NP Dec 22, 2018 21:57
[2018-12-23 02:14] VITALS: BP 115/65; PULSE 54; RESP 19
[2018-12-23] MEDS: PANTOPRAZOLE (EC) 40 MG TAB PO SCH ×2 (05:41→17:38)
[2018-12-23] MEDS: PIPER-TAZO 3.375 GM IV (PMX) 100 ML IVPB SCH ×4 (05:41→23:53)
[2018-12-23] MEDS: HYDROmorphONE 0.5 MG/0.5 ML SYG IV PRN ×4 (05:51→20:58)
[2018-12-23 07:16] VITALS: BP 112/65; PULSE 61; RESP 18
[2018-12-23] MEDS: CREON (24K-76K-120K) 1 CAP PO SCH ×3 (08:58→17:38)
[2018-12-23] MEDS: SUCRALFATE (100 MG/ML) 10ML CUP PO SCH ×4 (08:58→20:50)
[2018-12-23] MEDS: COLCHICINE 0.6 MG CAP PO SCH ×2 (08:59→20:53)
[2018-12-23] MEDS: CALCIUM/VITAMIN D (500/200) TAB PO SCH (08:59)
[2018-12-23] MEDS: AZATHIOPRINE 50 MG TAB PO SCH (08:59)
[2018-12-23] MEDS: METHYLPREDNISOLONE 40 MG INJ IV SCH ×2 (08:59→20:50)
[2018-12-23] MEDS: POLYETHYLENE GLYCOL 17 GM PACKET PO SCH (08:59)
[2018-12-23] MEDS: AMLODIPINE 5 MG TAB PO SCH ×2 (09:00→20:51)
[2018-12-23] MEDS: APIXABAN 5 MG TABLET PO SCH ×2 (09:00→20:52)
[2018-12-23] MEDS: LACTOBACILLUS RHAMNOSUS CAP PO SCH ×2 (09:00→20:53)
[2018-12-23] MEDS: NADOLOL 40 MG TAB PO SCH ×2 (09:00→20:53)
[2018-12-23] MEDS: oxyCODONE 5 MG TAB PO PRN (09:11)
--- NOTE | 2018-12-23 10:14 | PN ---
Date/Time of Note Date/Time of Note DATE: 12/23/18 TIME: 10:12 Assessment/Plan Lines/Catheters IV Catheter Type (from [facility]): PICC Line Henao in Place (from [facility]): No Assessment/Plan Chief Complaint/Hosp Course 1. Abdominal pain with extensive portal venous system thrombosis, right colonic wall thickening concern for ischemia secondary to venous thrombosis; abdominal pain is improving. transfer to [facility] without vascular intervention. pain with solid diet -full liquid diet -Medical/vascular management -No general surgical intervention at this time -Anticoagulation 2. Portal venous thrombosis, extensive portal venous thrombosis; -Anticoagulation -As above 3. Leukocytosis: No infectious symptoms; improving -monitor 4. Liver cirrhosis with generalized anasarca -Hepatic optimization -Fluid management 5. Pleural effusion, pericardial effusion -Fluid management -Per cards/pulm 6. SLE c acute flare: steroids and colchicine -Per rheumatology 7. Obesity BMI: 34 -diet and exercise optimization -encourage weight loss 8. Hypochromic anemia: -Monitor and transfuse as needed Thank you. Patient seen and examined in collaboration with Dr. Sanjay Westbrook. Subjective 24 Hr Interval Summary Abdominal pain with solid food. Will put her back on full liquids. No fevers, chills, sob, congested cough, cp, palpitations, crouch, dizziness, n/v/d/dysuria. Exam/Review of Systems Vital Signs Vitals Vital Signs Date Temp Pulse Resp B/P (MAP) Pulse Ox O2 O2 Flow FiO2 Time Delivery Rate 12/23/18 98.3 61 18 112/65 99 Room Air 07:16 (81) Intake and Output 12/22/18 12/22/18 12/23/18 1515:00 23:00 07:00 IntakeIntake Total 800 ml 1100 ml 200 ml BalanceBalance 800 ml 1100 ml 200 ml Exam Free Text/Dictation Constitutional: alert, oriented Psych: nl mood/affect; No anxiety Head: normocephalic, atraumatic Eyes: nl conjunctiva, EOMI, nl lids, nl sclera ENMT: nl external ears & nose, nl lips & teeth, mucosa pink and moist Neck: supple, non-tender; No jvd Respiratory: normal air movement; No congested cough Cardiovascular: regular rate and rhythm, nl pulses; No edema Gastrointestinal: soft, min tender Left side without rebound/guarding/rigidity. Obese. Genitourinary - Female: nl external genitalia Musculoskeletal: nl extremities to inspection, nl gait and stance Extremities: normal pulses Neurological: nl mental status, nl speech, nl strength Skin: No rash or lesions, abdominal bruising Lymph: No nl lymph nodes Results Result Diagram: 12/23/18 0557 12/23/18 0557 FARZANA RENEE NP Dec 23, 2018 10:14
--- NOTE | 2018-12-23 15:05 | PN ---
Date/Time of Note Date/Time of Note DATE: 12/23/18 TIME: 14:42 Assessment/Plan VTE Prophylaxis Risk score (from Ns)>0 risk: 2 SCD applied (from Ns): No SCD contraindicated: low risk/ambulating Pharmacological prophylaxis: NA/contraindicated Pharm contraindication: liver dx Lines/Catheters IV [facility]ter Type (from [facility]): PICC Line Central line still needed: Yes Urinary Cath still in place: No Assessment/Plan Assessment/Plan Assessment: Bloating Chronic constipation Epigastric pain-with radiation to left upper quadrant and left flank/back- -CT is concerning for pancreatitis, however lipase and amylase WNL -Repeat abdominal CT on 12/06/2018 showed pneumatosis intestinalis of the right colon and hepatic flexure, raising concerning for bowel ischemia with microperforation of the right colon. -Repeat Ct scan 12/13/18-There is continued interval progression of colonic pneumatosis involving the proximal colon again suggestive for gangrenous bowel. There is generalized small and large bowel wall thickening with more pronounced involvement of the colon that could represent third spacing of fluid versus colitis. There is pronounced diffuse intrahepatic portal vein thrombus along with thrombosis of the entirety of the main portal vein, portal confluence, splenic vein and the majority of the superior mesenteric vein. Residual patent mesenteric veins are seen along with cavernous transformation of the portal vein and the presence of portal venous collateral vessels. 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 -Pt consulted by vascular sx -Currently on anti-coagulation -Transferred back from [facility] no surgical procedure was performed Left pleural effusion Diarrhea- resolved Pericardial effusion, moderate -Echocardiogram - Small to borderline moderate circumferential pericardial effusion without evidence of tamponade. EF 55% Normocytic Anemia Recent History Hematemesis EGD 11/15/2018 Extensive ulceration of the distal esophagus, rule out opportunistic infection, biopsies obtained. Grade II/IV esophageal varices. No stigmata of recent bleeding. No therapeutic intervention required Mild gastritis versus portal gastropathy, Otherwise normal EGD Stomach biopsy negative for H. pylori infection, no evidence of intestinal metaplasia, dysplasia, or malignancy Esophageal ulcer biopsy mucosa showing moderate chronic inflammation no squamous mucosa is present. No goblet cells are identified, no H. pylori is identified, no evidence of dysplasia or malignancy SLE/Rheumatoid arthritis/Raynaud's syndrome -On steroid therapy History of Splenectomy Depression HTN Hx of EGD/colonoscopy 09/26/18 Colonoscopy 09/26/2018colitis more significant in the area of the rectum moderate size internal hemorrhoidsbiopsy negative for evidence of colitis EGD grade II/IV esophageal varices, severe gastritisbiopsies negative for H. pylori Liver cirrhosis- with hx of EV -Hepatitis serology negative -ASMA,AMA- negative Thrombocytosis- resolved Status post finger amputation secondary to Raynaud's syndrome Leukocytosis- improving Plan: Start Amitiza twice daily Start Levsin Eliquis 5mg BID Full liquid diet- consider advancing in near future Monitor labs Steroids and supportive care Imaging and reports from [facility] have already been requested- CT scan with IV contrast of the abdomen pelvis performed which showed extensive portal venous system thrombosis noted. Vascular collaterals described above. Right colonic wall thickening raising suspicion for ischemia due to venous thrombosis. Ascites fluid. Patient seen in collaboration with Dr. Coleman Subjective: Course reviewed with nursing staff Patient interviewed and examined All labs, imaging and other results reviewed The patient is ambulating in the hallways. She is complaining of bloating and chronic constipation. We will start the patient on Levsin and Amitiza. Patient is tolerating liquid diet well with minimal epigastric pain radiating to the back. Ascites on CT. Will try to hold off on thoracentesis due to anticoagulants. Continue observation Exam PHYSICAL EXAMINATION: GENERAL: Chronically ill appearing young woman, alert & oriented x 3, edema/swelling from chronic steroid use- improved SKIN: No lesions. HEAD: Normocephalic, atraumatic, no tenderness. EYES: Pupils equal reactive to light, no discharge. EARS/NOSE AND THROAT: Ears normal, nose normal. NECK: Supple, no masses, thyroid normal. CHEST: Inspection within normal limits. CARDIOVASCULAR: Heart: Regular rate and rhythm RESPIRATORY: Lungs clear to auscultation. GASTROINTESTINAL AND LIVER: Abdomen: obese, soft, epigastric tenderness, non- distended, ascites, no hernias, no masses, normoactive bowel sounds. Rectal: Deferred. EXTREMITIES: No cyanosis, clubbing or edema. Right index finger amputated 1 phalanx Result Diagram: 12/23/18 0557 12/23/18 0557 Results 24hrs Laboratory Tests Test 12/23/18 05:57 White Blood Count 10.9 H Red Blood Count 3.24 L Hemoglobin 7.9 L Hematocrit 26.0 L Mean Corpuscular Volume 80.2 L Mean Corpuscular Hemoglobin 24.4 L Mean Corpuscular Hemoglobin Concent 30.4 L Red Cell Distribution Width 18.7 H Platelet Count 226 Mean Platelet Volume 10.5 H Immature Granulocytes % 0.500 H Neutrophils % 84.2 H Lymphocytes % 6.0 L Monocytes % 8.5 Eosinophils % 0.7 Basophils % 0.1 Nucleated Red Blood Cells % 0.8 H Immature Granulocytes # 0.050 H Neutrophils # 9.2 H Lymphocytes # 0.7 L Monocytes # 0.9 Eosinophils # 0.1 Basophils # 0.0 Nucleated Red Blood Cells # 0.1 H Sodium Level 140 Potassium Level 4.3 Chloride Level 103 Carbon Dioxide Level 29 Anion Gap 8 Blood Urea Nitrogen 12 Creatinine 0.42 L Est Glomerular Filtrat Rate mL/min > 60 Glucose Level 98 Calcium Level 8.9 Total Bilirubin 1.3 Direct Bilirubin 0.00 Indirect Bilirubin 1.3 H Aspartate Amino Transf (AST/SGOT) 48 H Alanine Aminotransferase (ALT/SGPT) 77 H Alkaline Phosphatase 145 H Total Protein 5.6 L Albumin 2.8 L Globulin 2.80 Albumin/Globulin Ratio 1.00 CC: PAUL COLEMAN MD ; Exam/Review of Systems Exam Vitals Vital Signs Date Temp Pulse Resp B/P (MAP) Pulse Ox O2 O2 Flow FiO2 Time Delivery Rate 12/23/18 98.3 61 18 112/65 99 Room Air 07:16 (81) Intake and Output 12/22/18 12/22/18 12/23/18 1515:00 23:00 07:00 IntakeIntake Total 800 ml 1100 ml 200 ml BalanceBalance 800 ml 1100 ml 200 ml Results Results 24hrs Laboratory Tests Test 12/23/18 05:57 White Blood Count 10.9 H Red Blood Count 3.24 L Hemoglobin 7.9 L Hematocrit 26.0 L Mean Corpuscular Volume 80.2 L Mean Corpuscular Hemoglobin 24.4 L Mean Corpuscular Hemoglobin Concent 30.4 L Red Cell Distribution Width 18.7 H Platelet Count 226 Mean Platelet Volume 10.5 H Immature Granulocytes % 0.500 H Neutrophils % 84.2 H Lymphocytes % 6.0 L Monocytes % 8.5 Eosinophils % 0.7 Basophils % 0.1 Nucleated Red Blood Cells % 0.8 H Immature Granulocytes # 0.050 H Neutrophils # 9.2 H Lymphocytes # 0.7 L Monocytes # 0.9 Eosinophils # 0.1 Basophils # 0.0 Nucleated Red Blood Cells # 0.1 H Sodium Level 140 Potassium Level 4.3 Chloride Level 103 Carbon Dioxide Level 29 Anion Gap 8 Blood Urea Nitrogen 12 Creatinine 0.42 L Est Glomerular Filtrat Rate mL/min > 60 Glucose Level 98 Calcium Level 8.9 Total Bilirubin 1.3 Direct Bilirubin 0.00 Indirect Bilirubin 1.3 H Aspartate Amino Transf (AST/SGOT) 48 H Alanine Aminotransferase (ALT/SGPT) 77 H Alkaline Phosphatase 145 H Total Protein 5.6 L Albumin 2.8 L Globulin 2.80 Albumin/Globulin Ratio 1.00 Medications Medication Current Medications IV Flush (NS 3 ml) 3 ml PER PROTOCOL IV ; Start 12/20/18 at 23:30 Ondansetron HCl (Zofran Inj) 4 mg Q6H PRN IV NAUSEA/VOMITING Last administered on 12/21/18at 04:41; Admin Dose 4 MG; Start 12/20/18 at 23:30 Acetaminophen (Tylenol Tab) 650 mg Q6H PRN PO .PAIN 1-3 OR TEMP; Start 12/20/18 at 23:30 Hydromorphone HCl (Dilaudid) 1 mg Q4H PRN IV .SEVERE PAIN 7-10 Last administered on 12/23/18at 10:19; Admin Dose 1 MG; Start 12/20/18 at 23:30 Docusate Sodium (Colace) 100 mg Q12H PRN PO .CONSTIPATION Last administered on 12/20/18at 23:35; Admin Dose 100 MG; Start 12/20/18 at 23:30 Bisacodyl (Dulcolax) 5 mg DAILY PRN PO .CONSTIPATION; Start 12/20/18 at 23:30 Amlodipine Besylate (Norvasc) 5 mg BID PO Last administered on 12/23/18 09:00; Admin Dose 5 MG; Start 12/21/18 at 09:00 Azathioprine (Imuran) 100 mg DAILY PO Last administered on 12/23/18at 08:59; Admin Dose 100 MG; Start 12/21/18 at 09:00 Lactobacillus Acidophilus/ Rhamnosus (Culturelle) 1 cap BID PO Last administered on 12/23/18 09:00; Admin Dose 1 CAP; Start 12/21/18 at 09:00 Amylase/Lipase/ Protease (Creon ([id number])) 2 cap WITH MEALS PO Last administered on 12/23/18 12:35; Admin Dose 2 CAP; Start 12/21/18 at 08:00 Methylprednisolone Sodium Succinate (Solu-Medrol) 10 mg BID IV Last administered on 12/23/18 08:59; Admin Dose 10 MG; Start 12/21/18 at 09:00 Pantoprazole (Protonix Tab) 40 mg BID@06,18 PO Last administered on 12/23/18 05:41; Admin Dose 40 MG; Start 12/21/18 at 06:00 Sucralfate (Carafate Susp) 1 gm QID PO Last administered on 12/23/18 12:36; Admin Dose 1 GM; Start 12/21/18 at 09:00 Calcium/Vitamin D (Oyster Shell/ Vit-D (500/200)) 1 tab DAILY PO Last administered on 12/23/18 08:59; Admin Dose 1 TAB; Start 12/21/18 at 09:00 Colchicine (Colchicine) 0.6 mg BID PO Last administered on 12/23/18 08:59; Admin Dose 0.6 MG; Start 12/21/18 at 09:00 Nadolol (Corgard) 20 mg BID PO Last administered on 12/23/18 09:00; Admin Dose 20 MG; Start 12/21/18 at 09:00 Apixaban (Eliquis) 5 mg BID PO Last administered on 12/23/18 09:00; Admin Dose 5 MG; Start 12/21/18 at 09:00 Piperacillin Sod/ Tazobactam Sod 100 ml @ 200 mls/hr Q6 IVPB Last administered on 12/23/18 12:36; Admin Dose 200 MLS/HR; Start 12/21/18 at 02:00 Miscellaneous Information 1 ea NOTE XX ; Start 12/21/18 at 04:00 Glucose (Glutose) 15 gm Q15M PRN PO DECREASED GLUCOSE; Start 12/21/18 at 04:00 Glucose (Glutose) 22.5 gm Q15M PRN PO DECREASED GLUCOSE; Start 12/21/18 at 04:00 Dextrose (D50w Syringe) 25 ml Q15M PRN IV DECREASED GLUCOSE; Start 12/21/18 at 04:00 Dextrose (D50w Syringe) 50 ml Q15M PRN IV DECREASED GLUCOSE; Start 12/21/18 at 04:00 Glucagon (Glucagen) 1 mg Q15M PRN IM DECREASED GLUCOSE; Start 12/21/18 at 04:00 Glucose (Glutose) 15 gm Q15M PRN BUCCAL DECREASED GLUCOSE; Start 12/21/18 at 04:00 Docusate Sodium (Colace) 100 mg BID PRN PO CONSTIPATION; Start 12/21/18 at 05:30 Polyethylene Glycol (Miralax) 17 gm DAILY PO Last administered on 12/23/18at 08:59; Admin Dose 17 GM; Start 12/21/18 at 09:00 Oxycodone HCl (Roxicodone) 5 mg Q4H PRN PO MODERATE PAIN LEVEL 4-6 Last administered on 12/23/18at 09:11; Admin Dose 5 MG; Start 12/21/18 at 15:30 PAUL APPIAH NP Dec 23, 2018 14:54
[2018-12-23 15:41] VITALS: BP 121/73; PULSE 66; RESP 18
[2018-12-23] MEDS: LUBIPROSTONE 24 MCG CAP PO SCH ×3 (15:56→20:59)
--- NOTE | 2018-12-23 16:30 | PN ---
Date/Time of Note Date/Time of Note DATE: 12/23/18 TIME: 16:29 Assessment/Plan VTE Prophylaxis Risk score (from Nsg)>0 risk: 2 SCD applied (from Ns): Yes Pharmacological prophylaxis: heparin Lines/Catheters IV Catheter Type (from Nrs): PICC Line Central line still needed: No Urinary Cath still in place: No Assessment/Plan Hospital Course 1. Abdominal pain -CT scan of the abdomen showing acute pancreatitis (November 29, 2018) -Repeat CT scan of the abdomen on December 06, 2018 showed pneumatosis intestinalis of the right colon and hepatic flexure with suspicion of bowel ischemia with several foci of free air in the right lower quadrant worrisome for microperforation of the right colon. - Continue abx treatment. -repeat CT scan of the abdomen with IV and oral contrast 12/12/18: continued interval progression of colonic pneumatosis involving the proximal colon again suggestive for gangrenous bowel. There is generalized small and large bowel wall thickening with more pronounced involvement of the colon that could represent third spacing of fluid versus colitis -Repeat CT scan on 12/17/2018 at [facility] showed:CT scan with IV contrast of the abdomen pelvis performed which showed extensive portal venous system thrombosis noted. Vascular collaterals described above. Right colonic wall thickening raising suspicion for ischemia due to venous thrombosis. Ascites fluid. - no surgical intervention was performed at the tertiary center. Surgeons there recommended conservative management. Patient was started on Eliquis and full liquids . She continues to have pain at the current time. Will monitor the patient on clear liquid diet put on bowel regimen. Pain management. Will need to reconsult all the previous consultants in the a.m. repeat CBC CMP. - Advance diet 2. 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 Initial consult note is available from the vascular surgeon however I do not see any follow-up note. Patient was apparently discontinued from heparin drip and started on Eliquis 5 mg p.o. twice daily. Will need to investigate this further by following up with the tertiary care center in the a.m. to get a better idea of her hospital course there. 3. Acute pancreatitis - improved -Continue on Creon -Full liquid diet 4.Lupus flare -We will need to reconsult with rheumatology. -On IV steroids 5. Chronic liver cirrhosis with history of esophageal varices -Remains on beta-tavon 6. 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 Hx Raynaud's Syndrome - hx right mid finger amputation - continue precautions 9. Obesity - Weight reduction was advised 10. GI bleed -Hemoglobin appears stable. Monitor closely. GI consultation in the a.m. 11 DVT GI prophylaxis: Eliquis, acid tavon Further treatment strategy will be implemented as per the clinical course Result Diagram: 12/23/1857 12/23/1857 Results 24hrs Laboratory Tests Test 12/23/18 05:57 White Blood Count 10.9 H Red Blood Count 3.24 L Hemoglobin 7.9 L Hematocrit 26.0 L Mean Corpuscular Volume 80.2 L Mean Corpuscular Hemoglobin 24.4 L Mean Corpuscular Hemoglobin Concent 30.4 L Red Cell Distribution Width 18.7 H Platelet Count 226 Mean Platelet Volume 10.5 H Immature Granulocytes % 0.500 H Neutrophils % 84.2 H Lymphocytes % 6.0 L Monocytes % 8.5 Eosinophils % 0.7 Basophils % 0.1 Nucleated Red Blood Cells % 0.8 H Immature Granulocytes # 0.050 H Neutrophils # 9.2 H Lymphocytes # 0.7 L Monocytes # 0.9 Eosinophils # 0.1 Basophils # 0.0 Nucleated Red Blood Cells # 0.1 H Sodium Level 140 Potassium Level 4.3 Chloride Level 103 Carbon Dioxide Level 29 Anion Gap 8 Blood Urea Nitrogen 12 Creatinine 0.42 L Est Glomerular Filtrat Rate mL/min > 60 Glucose Level 98 Calcium Level 8.9 Total Bilirubin 1.3 Direct Bilirubin 0.00 Indirect Bilirubin 1.3 H Aspartate Amino Transf (AST/SGOT) 48 H Alanine Aminotransferase (ALT/SGPT) 77 H Alkaline Phosphatase 145 H Total Protein 5.6 L Albumin 2.8 L Globulin 2.80 Albumin/Globulin Ratio 1.00 Subjective 24 Hr Interval Summary Free Text/Dictation Not tolerating solids, back to liquid diet Exam/Review of Systems Exam Vitals Vital Signs Date Temp Pulse Resp B/P (MAP) Pulse Ox O2 O2 Flow FiO2 Time Delivery Rate 12/23/18 98.1 66 18 121/73 99 Room Air 15:41 (89) Intake and Output 12/22/18 12/22/18 12/23/18 1515:00 23:00 07:00 IntakeIntake Total 800 ml 1100 ml 200 ml BalanceBalance 800 ml 1100 ml 200 ml Constitutional: alert, oriented, well developed Psych: no complaints, nl mood/affect Head: normocephalic, atraumatic Eyes: nl conjunctiva, EOMI, nl lids, nl sclera, PERRL ENMT: nl external ears & nose, nl lips & teeth, nl nasal mucosa & septum Neck: supple, non-tender Respiratory: clear to auscultation, normal air movement Cardiovascular: regular rate and rhythm, nl pulses Gastrointestinal: soft, nl liver, spleen, non-tender Musculoskeletal: nl extremities to inspection, nl gait and stance Extremities: normal pulses Neurological: INFORMATICA [employer]CHITECT II-XII intact, nl mental status, nl speech, nl strength Skin: nl turgor; No rash or lesions Lymph: nl lymph nodes Results Results 24hrs Laboratory Tests Test 12/23/18 05:57 White Blood Count 10.9 H Red Blood Count 3.24 L Hemoglobin 7.9 L Hematocrit 26.0 L Mean Corpuscular Volume 80.2 L Mean Corpuscular Hemoglobin 24.4 L Mean Corpuscular Hemoglobin Concent 30.4 L Red Cell Distribution Width 18.7 H Platelet Count 226 Mean Platelet Volume 10.5 H Immature Granulocytes % 0.500 H Neutrophils % 84.2 H Lymphocytes % 6.0 L Monocytes % 8.5 Eosinophils % 0.7 Basophils % 0.1 Nucleated Red Blood Cells % 0.8 H Immature Granulocytes # 0.050 H Neutrophils # 9.2 H Lymphocytes # 0.7 L Monocytes # 0.9 Eosinophils # 0.1 Basophils # 0.0 Nucleated Red Blood Cells # 0.1 H Sodium Level 140 Potassium Level 4.3 Chloride Level 103 Carbon Dioxide Level 29 Anion Gap 8 Blood Urea Nitrogen 12 Creatinine 0.42 L Est Glomerular Filtrat Rate mL/min > 60 Glucose Level 98 Calcium Level 8.9 Total Bilirubin 1.3 Direct Bilirubin 0.00 Indirect Bilirubin 1.3 H Aspartate Amino Transf (AST/SGOT) 48 H Alanine Aminotransferase (ALT/SGPT) 77 H Alkaline Phosphatase 145 H Total Protein 5.6 L Albumin 2.8 L Globulin 2.80 Albumin/Globulin Ratio 1.00 Medications Medication Current Medications IV Flush (NS 3 ml) 3 ml PER PROTOCOL IV ; Start 12/20/18 at 23:30 Ondansetron HCl (Zofran Inj) 4 mg Q6H PRN IV NAUSEA/VOMITING Last administered on 12/21/18 04:41; Admin Dose 4 MG; Start 12/20/18 at 23:30 Acetaminophen (Tylenol Tab) 650 mg Q6H PRN PO .PAIN 1-3 OR TEMP; Start 12/20/18 at 23:30 Hydromorphone HCl (Dilaudid) 1 mg Q4H PRN IV .SEVERE PAIN 7-10 Last administered on 12/23/18 15:59; Admin Dose 1 MG; Start 12/20/18 at 23:30 Docusate Sodium (Colace) 100 mg Q12H PRN PO .CONSTIPATION Last administered on 12/20/18 23:35; Admin Dose 100 MG; Start 12/20/18 at 23:30 Bisacodyl (Dulcolax) 5 mg DAILY PRN PO .CONSTIPATION; Start 12/20/18 at 23:30 Amlodipine Besylate (Norvasc) 5 mg BID PO Last administered on 12/23/18 09:00; Admin Dose 5 MG; Start 12/21/18 at 09:00 Azathioprine (Imuran) 100 mg DAILY PO Last administered on 12/23/18 08:59; Admin Dose 100 MG; Start 12/21/18 at 09:00 Lactobacillus Acidophilus/ Rhamnosus (Culturelle) 1 cap BID PO Last administered on 12/23/18 09:00; Admin Dose 1 CAP; Start 12/21/18 at 09:00 Amylase/Lipase/ Protease (Creon ([id number])) 2 cap WITH MEALS PO Last administered on 12/23/18 12:35; Admin Dose 2 CAP; Start 12/21/18 at 08:00 Methylprednisolone Sodium Succinate (Solu-Medrol) 10 mg BID IV Last administered on 12/23/18 08:59; Admin Dose 10 MG; Start 12/21/18 at 09:00 Pantoprazole (Protonix Tab) 40 mg BID@06,18 PO Last administered on 12/23/18 05:41; Admin Dose 40 MG; Start 12/21/18 at 06:00 Sucralfate (Carafate Susp) 1 gm QID PO Last administered on 12/23/18 12:36; Admin Dose 1 GM; Start 12/21/18 at 09:00 Calcium/Vitamin D (Oyster Shell/ Vit-D (500/200)) 1 tab DAILY PO Last administered on 12/23/18at 08:59; Admin Dose 1 TAB; Start 12/21/18 at 09:00 Colchicine (Colchicine) 0.6 mg BID PO Last administered on 12/23/18 08:59; Ad min Dose 0.6 MG; Start 12/21/18 at 09:00 Nadolol (Corgard) 20 mg BID PO Last administered on 12/23/18at 09:00; Admin Dose 20 MG; Start 12/21/18 at 09:00 Apixaban (Eliquis) 5 mg BID PO Last administered on 12/23/18at 09:00; Admin Dose 5 MG; Start 12/21/18 at 09:00 Piperacillin Sod/ Tazobactam Sod 100 ml @ 200 mls/hr Q6 IVPB Last administered on 12/23/18at 12:36; Admin Dose 200 MLS/HR; Start 12/21/18 at 02:00 Miscellaneous Information 1 ea NOTE XX ; Start 12/21/18 at 04:00 Glucose (Glutose) 15 gm Q15M PRN PO DECREASED GLUCOSE; Start 12/21/18 at 04:00 Glucose (Glutose) 22.5 gm Q15M PRN PO DECREASED GLUCOSE; Start 12/21/18 at 04:00 Dextrose (D50w Syringe) 25 ml Q15M PRN IV DECREASED GLUCOSE; Start 12/21/18 at 04:00 Dextrose (D50w Syringe) 50 ml Q15M PRN IV DECREASED GLUCOSE; Start 12/21/18 at 04:00 Glucagon (Glucagen) 1 mg Q15M PRN IM DECREASED GLUCOSE; Start 12/21/18 at 04:00 Glucose (Glutose) 15 gm Q15M PRN BUCCAL DECREASED GLUCOSE; Start 12/21/18 at 04:00 Docusate Sodium (Colace) 100 mg BID PRN PO CONSTIPATION; Start 12/21/18 at 05:30 Polyethylene Glycol (Miralax) 17 gm DAILY PO Last administered on 12/23/18 08:59; Admin Dose 17 GM; Start 12/21/18 at 09:00 Oxycodone HCl (Roxicodone) 5 mg Q4H PRN PO MODERATE PAIN LEVEL 4-6 Last administered on 12/23/18at 09:11; Admin Dose 5 MG; Start 12/21/18 at 15:30 Hyoscyamine (Levsin (Sl)) 0.125 mg Q8 PO ; Start 12/23/18 at 15:00 Lubiprostone (Amitiza) 24 mcg BID PO Last administered on 12/23/18at 15:56; Admin Dose 24 MCG; Start 12/23/18 at 15:00 MICHAEL PARKER MD Dec 23, 2018 16:30
[2018-12-23] MEDS: HYOSCYAMINE 0.125 MG SUBL TAB PO SCH ×2 (16:40→20:59)
[2018-12-23] MEDS: ONDANSETRON 4 MG INJ IV PRN (17:35)
[2018-12-23 20:00] VITALS: BP 119/70; PULSE 62; RESP 18
[2018-12-24] MEDS: HYDROmorphONE 0.5 MG/0.5 ML SYG IV PRN ×5 (01:32→20:19)
[2018-12-24 02:10] VITALS: BP 123/60; PULSE 65; RESP 18
[2018-12-24] MEDS: PANTOPRAZOLE (EC) 40 MG TAB PO SCH ×2 (05:43→17:22)
[2018-12-24] MEDS: HYOSCYAMINE 0.125 MG SUBL TAB PO SCH ×3 (05:43→23:54)
[2018-12-24] MEDS: PIPER-TAZO 3.375 GM IV (PMX) 100 ML IVPB SCH ×4 (05:43→23:54)
[2018-12-24 08:28] VITALS: BP 121/74; PULSE 59; RESP 19
[2018-12-24] MEDS: SUCRALFATE (100 MG/ML) 10ML CUP PO SCH ×4 (08:41→20:39)
[2018-12-24] MEDS: COLCHICINE 0.6 MG CAP PO SCH ×2 (08:42→20:39)
[2018-12-24] MEDS: AZATHIOPRINE 50 MG TAB PO SCH (08:42)
[2018-12-24] MEDS: AMLODIPINE 5 MG TAB PO SCH ×2 (08:42→20:47)
[2018-12-24] MEDS: APIXABAN 5 MG TABLET PO SCH ×2 (08:42→20:42)
[2018-12-24] MEDS: CREON (24K-76K-120K) 1 CAP PO SCH ×3 (08:42→17:22)
[2018-12-24] MEDS: CALCIUM/VITAMIN D (500/200) TAB PO SCH (08:42)
[2018-12-24] MEDS: LACTOBACILLUS RHAMNOSUS CAP PO SCH ×2 (08:42→20:42)
[2018-12-24] MEDS: METHYLPREDNISOLONE 40 MG INJ IV SCH ×2 (08:42→20:39)
[2018-12-24] MEDS: LUBIPROSTONE 24 MCG CAP PO SCH ×2 (08:43→20:39)
[2018-12-24] MEDS: POLYETHYLENE GLYCOL 17 GM PACKET PO SCH (08:43)
[2018-12-24] MEDS: NADOLOL 40 MG TAB PO SCH ×2 (08:43→20:57)
--- NOTE | 2018-12-24 14:46 | PN ---
Date/Time of Note Date/Time of Note DATE: 12/24/18 TIME: 14:36 Assessment/Plan VTE Prophylaxis Risk score (from Nsg)>0 risk: 2 SCD applied (from Nsg): No SCD contraindicated: low risk/ambulating Pharmacological prophylaxis: apixaban Lines/Catheters IV Catheter Type (from Nrs): PICC Line Central line still needed: Yes Urinary Cath still in place: No Assessment/Plan Assessment/Plan Assessment: Bloating Chronic constipation Epigastric pain-with radiation to left upper quadrant and left flank/back- -CT is concerning for pancreatitis, however lipase and amylase WNL -Repeat abdominal CT on 12/06/2018 showed pneumatosis intestinalis of the right colon and hepatic flexure, raising concerning for bowel ischemia with microperforation of the right colon. -Repeat Ct scan 12/13/18-There is continued interval progression of colonic pneumatosis involving the proximal colon again suggestive for gangrenous bowel. There is generalized small and large bowel wall thickening with more pronounced involvement of the colon that could represent third spacing of fluid versus colitis. There is pronounced diffuse intrahepatic portal vein thrombus along with thrombosis of the entirety of the main portal vein, portal confluence, splenic vein and the majority of the superior mesenteric vein. Residual patent mesenteric veins are seen along with cavernous transformation of the portal vein and the presence of portal venous c ollateral vessels. 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 -Pt consulted by vascular sx -Currently on anti-coagulation -Transferred back from [facility] no surgical procedure was performed Left pleural effusion Diarrhea- resolved Pericardial effusion, moderate -Echocardiogram - Small to borderline moderate circumferential pericardial effusion without evidence of tamponade. EF 55% Normocytic Anemia Recent History Hematemesis EGD 11/15/2018 Extensive ulceration of the distal esophagus, rule out opportunistic infec tion, biopsies obtained. Grade II/IV esophageal varices. No stigmata of recent bleeding. No thera peutic intervention required Mild gastritis versus portal gastropathy, Otherwise normal EGD Stomach biopsy negative for H. pylori infection, no evidence of intestinal metaplasia, dysplasia, or malignancy Esophageal ulcer biopsy mucosa showing moderate chronic inflammation no squamous mucosa is present. No goblet cells are identified, no H. pylori is identified, no evidence of dysplasia or malignancy SLE/Rheumatoid arthritis/Raynaud's syndrome -On steroid therapy History of Splenectomy Depression HTN Hx of EGD/colonoscopy 09/26/18 Colonoscopy 09/26/2018colitis more significant in the area of the rectum moderate size internal hemorrhoidsbiopsy negative for evidence of colitis EGD grade II/IV esophageal varices, severe gastritisbiopsies negative for H. pylori Liver cirrhosis- with hx of EV -Hepatitis serology negative -ASMA,AMA- negative Thrombocytosis- resolved Status post finger amputation secondary to Raynaud's syndrome Leukocytosis- improving Plan: Continue Amitiza twice daily Continue Levsin Eliquis 5mg BID Full liquid diet as patient unable to tolerate solids due to abdominal pain. Monitor labs Steroids and supportive care Imaging and reports from [facility] have already been requested- CT scan with IV contrast of the abdomen pelvis performed which showed extensive portal venous system thrombosis noted. Vascular collaterals described above. Right colonic wall thickening raising suspicion for ischemia due to venous thrombosis. Ascites fluid. Patient seen in collaboration with Dr. Coleman Subjective: Course reviewed with nursing staff Patient interviewed and examined All labs, imaging and other results reviewed The patient reports she is tolerating full liquids though solid food give her abdominal bloating and cramps. She is having bowel movements with the current regimen for constipation. Continue anticoagulation. Will hold off on paracentesis given the need for anticoagulation. Continue observation Exam PHYSICAL EXAMINATION: GENERAL: Chronically ill appearing young woman, alert & oriented x 3, edema/swelling from chronic steroid use- improved SKIN: No lesions. HEAD: Normocephalic, atraumatic, no tenderness. EYES: Pupils equal reactive to light, no discharge. EARS/NOSE AND THROAT: Ears normal, nose normal. NECK: Supple, no masses, thyroid normal. CHEST: Inspection within normal limits. CARDIOVASCULAR: Heart: Regular rate and rhythm RESPIRATORY: Lungs clear to auscultation. GASTROINTESTINAL AND LIVER: Abdomen: obese, soft, no tenderness, non-distended, ascites, no hernias, no masses, normoactive bowel sounds. Rectal: Deferred. EXTREMITIES: No cyanosis, clubbing or edema. Right index finger amputated 1 phalanx Result Diagram: 12/24/18 0535 12/24/18 0535 Results 24hrs Laboratory Tests Test 12/24/18 05:35 White Blood Count 12.1 H Red Blood Count 3.23 L Hemoglobin 7.9 L Hematocrit 25.9 L Mean Corpuscular Volume 80.2 L Mean Corpuscular Hemoglobin 24.5 L Mean Corpuscular Hemoglobin Concent 30.5 L Red Cell Distribution Width 18.7 H Platelet Count 242 Mean Platelet Volume 10.8 H Immature Granulocytes % 0.600 H Neutrophils % 83.1 H Lymphocytes % 4.7 L Monocytes % 10.8 Eosinophils % 0.7 Basophils % 0.1 Nucleated Red Blood Cells % 1.2 H Immature Granulocytes # 0.070 H Neutrophils # 10.0 H Lymphocytes # 0.6 L Monocytes # 1.3 H Eosinophils # 0.1 Basophils # 0.0 Nucleated Red Blood Cells # 0.1 H Sodium Level 140 Potassium Level 3.8 Chloride Level 102 Carbon Dioxide Level 30 Anion Gap 8 Blood Urea Nitrogen 9 Creatinine 0.39 L Est Glomerular Filtrat Rate mL/min > 60 Glucose Level 129 Calcium Level 8.6 Total Bilirubin 1.2 Direct Bilirubin 0.00 Indirect Bilirubin 1.2 H Aspartate Amino Transf (AST/SGOT) 57 H Alanine Aminotransferase (ALT/SGPT) 96 H Alkaline Phosphatase 163 H Total Protein 5.6 L Albumin 2.8 L Globulin 2.80 Albumin/Globulin Ratio 1.00 CC: PAUL COLEMAN MD ; Exam/Review of Systems Exam Vitals Vital Signs Date Temp Pulse Resp B/P (MAP) Pulse Ox O2 O2 Flow FiO2 Time Delivery Rate 12/24/18 98.7 59 19 121/74 96 Room Air 08:28 (90) Intake and Output 12/23/18 12/23/18 12/24/18 1515:00 23:00 07:00 IntakeIntake Total 900 ml 700 ml 500 ml BalanceBalance 900 ml 700 ml 500 ml Results Results 24hrs Laboratory Tests Test 12/24/18 05:35 White Blood Count 12.1 H Red Blood Count 3.23 L Hemoglobin 7.9 L Hematocrit 25.9 L Mean Corpuscular Volume 80.2 L Mean Corpuscular Hemoglobin 24.5 L Mean Corpuscular Hemoglobin Concent 30.5 L Red Cell Distribution Width 18.7 H Platelet Count 242 Mean Platelet Volume 10.8 H Immature Granulocytes % 0.600 H Neutrophils % 83.1 H Lymphocytes % 4.7 L Monocytes % 10.8 Eosinophils % 0.7 Basophils % 0.1 Nucleated Red Blood Cells % 1.2 H Immature Granulocytes # 0.070 H Neutrophils # 10.0 H Lymphocytes # 0.6 L Monocytes # 1.3 H Eosinophils # 0.1 Basophils # 0.0 Nucleated Red Blood Cells # 0.1 H Sodium Level 140 Potassium Level 3.8 Chloride Level 102 Carbon Dioxide Level 30 Anion Gap 8 Blood Urea Nitrogen 9 Creatinine 0.39 L Est Glomerular Filtrat Rate mL/min > 60 Glucose Level 129 Calcium Level 8.6 Total Bilirubin 1.2 Direct Bilirubin 0.00 Indirect Bilirubin 1.2 H Aspartate Amino Transf (AST/SGOT) 57 H Alanine Aminotransferase (ALT/SGPT) 96 H Alkaline Phosphatase 163 H Total Protein 5.6 L Albumin 2.8 L Globulin 2.80 Albumin/Globulin Ratio 1.00 Medications Medication Current Medications IV Flush (NS 3 ml) 3 ml PER PROTOCOL IV ; Start 12/20/18 at 23:30 Ondansetron HCl (Zofran Inj) 4 mg Q6H PRN IV NAUSEA/VOMITING Last administered on 12/23/18 17:35; Admin Dose 4 MG; Start 12/20/18 at 23:30 Acetaminophen (Tylenol Tab) 650 mg Q6H PRN PO .PAIN 1-3 OR TEMP; Start 12/20/18 at 23:30 Hydromorphone HCl (Dilaudid) 1 mg Q4H PRN IV .SEVERE PAIN 7-10 Last administered on 12/24/18 10:00; Admin Dose 1 MG; Start 12/20/18 at 23:30 Docusate Sodium (Colace) 100 mg Q12H PRN PO .CONSTIPATION Last administered on 12/20/18 23:35; Admin Dose 100 MG; Start 12/20/18 at 23:30 Bisacodyl (Dulcolax) 5 mg DAILY PRN PO .CONSTIPATION; Start 12/20/18 at 23:30 Amlodipine Besylate (Norvasc) 5 mg BID PO Last administered on 12/24/18 08:42; Admin Dose 5 MG; Start 12/21/18 at 09:00 Azathioprine (Imuran) 100 mg DAILY PO Last administered on 12/24/18 08:42; Admin Dose 100 MG; Start 12/21/18 at 09:00 Lactobacillus Acidophilus/ Rhamnosus (Culturelle) 1 cap BID PO Last administered on 12/24/18 08:42; Admin Dose 1 CAP; Start 12/21/18 at 09:00 Amylase/Lipase/ Protease (Creon ([id number])) 2 cap WITH MEALS PO Last administered on 12/24/18 12:49; Admin Dose 2 CAP; Start 12/21/18 at 08:00 Methylprednisolone Sodium Succinate (Solu-Medrol) 10 mg BID IV Last administered on 12/24/18 08:42; Admin Dose 10 MG; Start 12/21/18 at 09:00 Pantoprazole (Protonix Tab) 40 mg BID@06,18 PO Last administered on 12/24/18 05:43; Admin Dose 40 MG; Start 12/21/18 at 06:00 Sucralfate (Carafate Susp) 1 gm QID PO Last administered on 12/24/18 12:49; Admin Dose 1 GM; Start 12/21/18 at 09:00 Calcium/Vitamin D (Oyster Shell/ Vit-D (500/200)) 1 tab DAILY PO Last administered on 12/24/18 08:42; Admin Dose 1 TAB; Start 12/21/18 at 09:00 Colchicine (Colchicine) 0.6 mg BID PO Last administered on 12/24/18 08:42; Admin Dose 0.6 MG; Start 12/21/18 at 09:00 Nadolol (Corgard) 20 mg BID PO Last administered on 12/23/18 20:53; Admin Dose 20 MG; Start 12/21/18 at 09:00 Apixaban (Eliquis) 5 mg BID PO Last administered on 12/24/18 08:42; Admin Dose 5 MG; Start 12/21/18 at 09:00 Piperacillin Sod/ Tazobactam Sod 100 ml @ 200 mls/hr Q6 IVPB Last administered on 12/24/18 12:49; Admin Dose 200 MLS/HR; Start 12/21/18 at 02:00 Miscellaneous Information 1 ea NOTE XX ; Start 12/21/18 at 04:00 Glucose (Glutose) 15 gm Q15M PRN PO DECREASED GLUCOSE; Start 12/21/18 at 04:00 Glucose (Glutose) 22.5 gm Q15M PRN PO DECREASED GLUCOSE; Start 12/21/18 at 04:00 Dextrose (D50w Syringe) 25 ml Q15M PRN IV DECREASED GLUCOSE; Start 12/21/18 at 04:00 Dextrose (D50w Syringe) 50 ml Q15M PRN IV DECREASED GLUCOSE; Start 12/21/18 at 04:00 Glucagon (Glucagen) 1 mg Q15M PRN IM DECREASED GLUCOSE; Start 12/21/18 at 04:00 Glucose (Glutose) 15 gm Q15M PRN BUCCAL DECREASED GLUCOSE; Start 12/21/18 at 04:00 Docusate Sodium (Colace) 100 mg BID PRN PO CONSTIPATION; Start 12/21/18 at 05:30 Polyethylene Glycol (Miralax) 17 gm DAILY PO Last administered on 12/23/18at 08:59; Admin Dose 17 GM; Start 12/21/18 at 09:00 Oxycodone HCl (Roxicodone) 5 mg Q4H PRN PO MODERATE PAIN LEVEL 4-6 Last administered on 12/23/18at 09:11; Admin Dose 5 MG; Start 12/21/18 at 15:30 Hyoscyamine (Levsin (Sl)) 0.125 mg Q8 PO Last administered on 12/24/18 05:43; Admin Dose 0.125 MG; Start 12/23/18 at 15:00 Lubiprostone (Amitiza) 24 mcg BID PO Last administered on 12/23/18at 15:56; Admin Dose 24 MCG; Start 12/23/18 at 15:00 KT IBANEZ NP Dec 24, 2018 14:46
[2018-12-24 15:06] VITALS: BP 139/83; PULSE 76; RESP 17
--- NOTE | 2018-12-24 15:36 | PN ---
Date/Time of Note Date/Time of Note DATE: 12/24/18 TIME: 15:34 Assessment/Plan VTE Prophylaxis Risk score (from Nsg)>0 risk: 2 SCD applied (from Nsg): Yes Pharmacological prophylaxis: heparin Lines/Catheters IV Catheter Type (from Nrs): PICC Line Central line still needed: Yes Urinary Cath still in place: No Assessment/Plan Hospital Course 1. Abdominal pain -CT scan of the abdomen showing acute pancreatitis (November 29, 2018) -Repeat CT scan of the abdomen on December 06, 2018 showed pneumatosis intestinalis of the right colon and hepatic flexure with suspicion of bowel ischemia with several foci of free air in the right lower quadrant worrisome for microperforation of the right colon. - Continue abx treatment. -repeat CT scan of the abdomen with IV and oral contrast 12/12/18: continued interval progression of colonic pneumatosis involving the proximal colon again suggestive for gangrenous bowel. There is generalized small and large bowel wall thickening with more pronounced involvement of the colon that could represent third spacing of fluid versus colitis -Repeat CT scan on 12/17/2018 at [facility] showed:CT scan with IV contrast of the abdomen pelvis performed which showed extensive portal venous system thrombosis noted. Vascular collaterals described above. Right colonic wall thickening raising suspicion for ischemia due to venous thrombosis. Ascites fluid. - no surgical intervention was performed at the tertiary center. Surgeons there recommended conservative management. Patient was started on Eliquis and full liquids . She continues to have pain at the current time. Will monitor the patient on clear liquid diet put on bowel regimen. Pain management. Will need to reconsult all the previous consultants in the a.m. repeat CBC CMP. - Advance diet 2. 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 Initial consult note is available from the vascular surgeon however I do not see any follow-up note. Patient was apparently discontinued from heparin drip and started on Eliquis 5 mg p.o. twice daily. Will need to investigate this further by following up with the tertiary care center in the a.m. to get a better idea of her hospital course there. 3. Acute pancreatitis - improved -Continue on Creon -Full liquid diet 4.Lupus flare -We will need to reconsult with rheumatology. -On IV steroids 5. Chronic liver cirrhosis with history of esophageal varices -Remains on beta-tavon 6. 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 Hx Raynaud's Syndrome - hx right mid finger amputation - continue precautions 9. Obesity - Weight reduction was advised 10. GI bleed -Hemoglobin appears stable. Monitor closely. GI consultation in the a.m. 11 DVT GI prophylaxis: Eliquis, acid tavon Further treatment strategy will be implemented as per the clinical course Result Diagram: 12/24/18 0535 12/24/18 0535 Results 24hrs Laboratory Tests Test 12/24/18 05:35 White Blood Count 12.1 H Red Blood Count 3.23 L Hemoglobin 7.9 L Hematocrit 25.9 L Mean Corpuscular Volume 80.2 L Mean Corpuscular Hemoglobin 24.5 L Mean Corpuscular Hemoglobin Concent 30.5 L Red Cell Distribution Width 18.7 H Platelet Count 242 Mean Platelet Volume 10.8 H Immature Granulocytes % 0.600 H Neutrophils % 83.1 H Lymphocytes % 4.7 L Monocytes % 10.8 Eosinophils % 0.7 Basophils % 0.1 Nucleated Red Blood Cells % 1.2 H Immature Granulocytes # 0.070 H Neutrophils # 10.0 H Lymphocytes # 0.6 L Monocytes # 1.3 H Eosinophils # 0.1 Basophils # 0.0 Nucleated Red Blood Cells # 0.1 H Sodium Level 140 Potassium Level 3.8 Chloride Level 102 Carbon Dioxide Level 30 Anion Gap 8 Blood Urea Nitrogen 9 Creatinine 0.39 L Est Glomerular Filtrat Rate mL/min > 60 Glucose Level 129 Calcium Level 8.6 Total Bilirubin 1.2 Direct Bilirubin 0.00 Indirect Bilirubin 1.2 H Aspartate Amino Transf (AST/SGOT) 57 H Alanine Aminotransferase (ALT/SGPT) 96 H Alkaline Phosphatase 163 H Total Protein 5.6 L Albumin 2.8 L Globulin 2.80 Albumin/Globulin Ratio 1.00 Subjective 24 Hr Interval Summary Free Text/Dictation Doing well No abdominal pain Tolerating PO Wants to go home tomorrow Exam/Review of Systems Exam Vitals Vital Signs Date Temp Pulse Resp B/P (MAP) Pulse Ox O2 O2 Flow FiO2 Time Delivery Rate 12/24/18 98.2 76 17 139/83 96 Room Air 15:06 (101) Intake and Output 12/23/18 12/23/18 12/24/18 1515:00 23:00 07:00 IntakeIntake Total 900 ml 700 ml 500 ml BalanceBalance 900 ml 700 ml 500 ml Constitutional: alert, oriented, well developed Psych: no complaints, nl mood/affect Head: normocephalic, atraumatic Eyes: nl conjunctiva, EOMI, nl lids, nl sclera, PERRL ENMT: nl external ears & nose, nl lips & teeth, nl nasal mucosa & septum Neck: supple, non-tender Respiratory: clear to auscultation, normal air movement Cardiovascular: regular rate and rhythm, nl pulses Gastrointestinal: soft, nl liver, spleen, non-tender Musculoskeletal: nl extremities to inspection, nl gait and stance Extremities: normal pulses Neurological: F[employer] DES[employer] II-XII intact, nl mental status, nl speech, nl strength Skin: nl turgor; No rash or lesions Lymph: nl lymph nodes Results Results 24hrs Laboratory Tests Test 12/24/18 05:35 White Blood Count 12.1 H Red Blood Count 3.23 L Hemoglobin 7.9 L Hematocrit 25.9 L Mean Corpuscular Volume 80.2 L Mean Corpuscular Hemoglobin 24.5 L Mean Corpuscular Hemoglobin Concent 30.5 L Red Cell Distribution Width 18.7 H Platelet Count 242 Mean Platelet Volume 10.8 H Immature Granulocytes % 0.600 H Neutrophils % 83.1 H Lymphocytes % 4.7 L Monocytes % 10.8 Eosinophils % 0.7 Basophils % 0.1 Nucleated Red Blood Cells % 1.2 H Immature Granulocytes # 0.070 H Neutrophils # 10.0 H Lymphocytes # 0.6 L Monocytes # 1.3 H Eosinophils # 0.1 Basophils # 0.0 Nucleated Red Blood Cells # 0.1 H Sodium Level 140 Potassium Level 3.8 Chloride Level 102 Carbon Dioxide Level 30 Anion Gap 8 Blood Urea Nitrogen 9 Creatinine 0.39 L Est Glomerular Filtrat Rate mL/min > 60 Glucose Level 129 Calcium Level 8.6 Total Bilirubin 1.2 Direct Bilirubin 0.00 Indirect Bilirubin 1.2 H Aspartate Amino Transf (AST/SGOT) 57 H Alanine Aminotransferase (ALT/SGPT) 96 H Alkaline Phosphatase 163 H Total Protein 5.6 L Albumin 2.8 L Globulin 2.80 Albumin/Globulin Ratio 1.00 Medications Medication Current Medications IV Flush (NS 3 ml) 3 ml PER PROTOCOL IV ; Start 12/20/18 at 23:30 Ondansetron HCl (Zofran Inj) 4 mg Q6H PRN IV NAUSEA/VOMITING Last administered on 12/23/18 17:35; Admin Dose 4 MG; Start 12/20/18 at 23:30 Acetaminophen (Tylenol Tab) 650 mg Q6H PRN PO .PAIN 1-3 OR TEMP; Start 12/20/18 at 23:30 Hydromorphone HCl (Dilaudid) 1 mg Q4H PRN IV .SEVERE PAIN 7-10 Last administered on 12/24/18 15:17; Admin Dose 1 MG; Start 12/20/18 at 23:30 Docusate Sodium (Colace) 100 mg Q12H PRN PO .CONSTIPATION Last administered on 12/20/18 23:35; Admin Dose 100 MG; Start 12/20/18 at 23:30 Bisacodyl (Dulcolax) 5 mg DAILY PRN PO .CONSTIPATION; Start 12/20/18 at 23:30 Amlodipine Besylate (Norvasc) 5 mg BID PO Last administered on 12/24/18 08:42; Admin Dose 5 MG; Start 12/21/18 at 09:00 Azathioprine (Imuran) 100 mg DAILY PO Last administered on 12/24/18 08:42; Admin Dose 100 MG; Start 12/21/18 at 09:00 Lactobacillus Acidophilus/ Rhamnosus (Culturelle) 1 cap BID PO Last administe red on 12/24/18 08:42; Admin Dose 1 CAP; Start 12/21/18 at 09:00 Amylase/Lipase/ Protease (Creon ([id number])) 2 cap WITH MEALS PO Last administered on 12/24/18 12:49; Admin Dose 2 CAP; Start 12/21/18 at 08:00 Methylprednisolone Sodium Succinate (Solu-Medrol) 10 mg BID IV Last administered on 12/24/18 08:42; Admin Dose 10 MG; Start 12/21/18 at 09:00 Pantoprazole (Protonix Tab) 40 mg BID@06,18 PO Last administered on 12/24/18 05:43; Admin Dose 40 MG; Start 12/21/18 at 06:00 Sucralfate (Carafate Susp) 1 gm QID PO Last administered on 12/24/18 12:49; Admin Dose 1 GM; Start 12/21/18 at 09:00 Calcium/Vitamin D (Oyster Shell/ Vit-D (500/200)) 1 tab DAILY PO Last administered on 12/24/18 08:42; Admin Dose 1 TAB; Start 12/21/18 at 09:00 Colchicine (Colchicine) 0.6 mg BID PO Last administered on 12/24/18 08:42; Admin Dose 0.6 MG; Start 12/21/18 at 09:00 Nadolol (Corgard) 20 mg BID PO Last administered on 12/23/18 20:53; Admin Dose 20 MG; Start 12/21/18 at 09:00 Apixaban (Eliquis) 5 mg BID PO Last administered on 12/24/18 08:42; Admin Dose 5 MG; Start 12/21/18 at 09:00 Piperacillin Sod/ Tazobactam Sod 100 ml @ 200 mls/hr Q6 IVPB Last administered on 12/24/18 12:49; Admin Dose 200 MLS/HR; Start 12/21/18 at 02:00 Miscellaneous Information 1 ea NOTE XX ; Start 12/21/18 at 04:00 Glucose (Glutose) 15 gm Q15M PRN PO DECREASED GLUCOSE; Start 12/21/18 at 04:00 Glucose (Glutose) 22.5 gm Q15M PRN PO DECREASED GLUCOSE; Start 12/21/18 at 04:00 Dextrose (D50w Syringe) 25 ml Q15M PRN IV DECREASED GLUCOSE; Start 12/21/18 at 04:00 Dextrose (D50w Syringe) 50 ml Q15M PRN IV DECREASED GLUCOSE; Start 12/21/18 at 04:00 Glucagon (Glucagen) 1 mg Q15M PRN IM DECREASED GLUCOSE; Start 12/21/18 at 04:00 Glucose (Glutose) 15 gm Q15M PRN BUCCAL DECREASED GLUCOSE; Start 12/21/18 at 04:00 Docusate Sodium (Colace) 100 mg BID PRN PO CONSTIPATION; Start 12/21/18 at 05:30 Polyethylene Glycol (Miralax) 17 gm DAILY PO Last administered on 12/23/18 08:59; Admin Dose 17 GM; Start 12/21/18 at 09:00 Oxycodone HCl (Roxicodone) 5 mg Q4H PRN PO MODERATE PAIN LEVEL 4-6 Last administered on 12/23/18at 09:11; Admin Dose 5 MG; Start 12/21/18 at 15:30 Hyoscyamine (Levsin (Sl)) 0.125 mg Q8 PO Last administered on 12/24/18 05:43; Admin Dose 0.125 MG; Start 12/23/18 at 15:00 Lubiprostone (Amitiza) 24 mcg BID PO Last administered on 12/23/18at 15:56; Admin Dose 24 MCG; Start 12/23/18 at 15:00 MICHAEL PARKER MD Dec 24, 2018 15:36
--- NOTE | 2018-12-24 18:51 | PN ---
Date/Time of Note Date/Time of Note DATE: 12/24/18 TIME: 18:49 Assessment/Plan Lines/Catheters IV Catheter Type (from Nrs): PICC Line Henao in Place (from Nrs): No Assessment/Plan Chief Complaint/Hosp Course 1. Abdominal pain with extensive portal venous system thrombosis, right colonic wall thickening concern for ischemia secondary to venous thrombosis; abdominal pain is improving. transfer to [facility] without vascular intervention. pain with solid diet, much improved with liquid diet -continue on full liquid diet -Medical/vascular management -No general surgical intervention at this time -Anticoagulation -ok for discharge from surgical standpoint. Will need f/u with Vascular sx, pmd, rheum, GI/hepatology. 2. Portal venous thrombosis, extensive portal venous thrombosis; -Anticoagulation -As above 3. Leukocytosis: No infectious symptoms; -monitor 4. Liver cirrhosis with generalized anasarca -Hepatic optimization -Fluid management 5. Pleural effusion, pericardial effusion -Fluid management -Per cards/pulm 6. SLE c acute flare: steroids and colchicine -Per rheumatology 7. Obesity BMI: 34 -diet and exercise optimization -encourage weight loss 8. Hypochromic anemia: -Monitor and transfuse as needed Thank you. Patient seen and examined in collaboration with Dr. Sanjay Westbrook. Subjective 24 Hr Interval Summary Abdominal pain much improved with liquid diet. Some bloating, c/o no bm today. No fevers, chills, sob, congested cough, cp, palpitations, crouch, dizziness, n/v/d/dysuria. Exam/Review of Systems Vital Signs Vitals Vital Signs Date Temp Pulse Resp B/P (MAP) Pulse Ox O2 O2 Flow FiO2 Time Delivery Rate 12/24/18 98.2 76 17 139/83 96 Room Air 15:06 (101) Intake and Output 12/23/18 12/23/18 12/24/18 1515:00 23:00 07:00 IntakeIntake Total 900 ml 700 ml 500 ml BalanceBalance 900 ml 700 ml 500 ml Exam Free Text/Dictation Constitutional: alert, oriented Psych: nl mood/affect; No anxiety Head: normocephalic, atraumatic Eyes: nl conjunctiva, EOMI, nl lids, nl sclera ENMT: nl external ears & nose, nl lips & teeth, mucosa pink and moist Neck: supple, non-tender; No jvd Respiratory: normal air movement; No congested cough Cardiovascular: regular rate and rhythm, nl pulses; No edema Gastrointestinal: soft, min tender Left side without rebound/guarding/rigidity. Obese. Mod distended Genitourinary - Female: nl external genitalia Musculoskeletal: nl extremities to inspection, nl gait and stance Extremities: normal pulses Neurological: nl mental status, nl speech, nl strength Skin: No rash or lesions, abdominal bruising Lymph: No nl lymph nodes Results Result Diagram: 12/24/18 0535 12/24/18 0535 FARZANA RENEE NP Dec 24, 2018 18:51
[2018-12-24 20:50] VITALS: BP 121/64; PULSE 64; RESP 16
[2018-12-24] MEDS ORDERED: BISACODYL 10 MG SUPP PR ONE (21:00)
[2018-12-24] MEDS: ONDANSETRON 4 MG INJ IV PRN (22:09)
[2018-12-25] MEDS: HYDROmorphONE 0.5 MG/0.5 ML SYG IV PRN ×4 (00:05→20:54)
[2018-12-25 02:09] VITALS: BP 101/54; PULSE 61; RESP 16
[2018-12-25] MEDS: HYOSCYAMINE 0.125 MG SUBL TAB PO SCH ×3 (06:10→23:02)
[2018-12-25] MEDS: PIPER-TAZO 3.375 GM IV (PMX) 100 ML IVPB SCH ×4 (06:10→23:47)
[2018-12-25] MEDS: PANTOPRAZOLE (EC) 40 MG TAB PO SCH ×2 (06:11→17:55)
[2018-12-25 07:11] VITALS: BP 108/61; PULSE 55; RESP 17
[2018-12-25] MEDS: NADOLOL 40 MG TAB PO SCH ×2 (09:00→23:02)
[2018-12-25] MEDS: SUCRALFATE (100 MG/ML) 10ML CUP PO SCH ×4 (09:27→20:49)
[2018-12-25] MEDS: POLYETHYLENE GLYCOL 17 GM PACKET PO SCH (09:27)
[2018-12-25] MEDS: APIXABAN 5 MG TABLET PO SCH ×2 (09:27→20:49)
[2018-12-25] MEDS: CALCIUM/VITAMIN D (500/200) TAB PO SCH (09:28)
[2018-12-25] MEDS: LUBIPROSTONE 24 MCG CAP PO SCH ×2 (09:28→20:49)
[2018-12-25] MEDS: LACTOBACILLUS RHAMNOSUS CAP PO SCH ×2 (09:28→20:49)
[2018-12-25] MEDS: METHYLPREDNISOLONE 40 MG INJ IV SCH ×2 (09:31→20:48)
[2018-12-25] MEDS: AMLODIPINE 5 MG TAB PO SCH ×2 (09:31→20:49)
[2018-12-25] MEDS: AZATHIOPRINE 50 MG TAB PO SCH (09:31)
[2018-12-25] MEDS: COLCHICINE 0.6 MG CAP PO SCH ×2 (09:32→20:49)
[2018-12-25] MEDS: CREON (24K-76K-120K) 1 CAP PO SCH ×3 (09:32→17:55)
[2018-12-25] MEDS: ONDANSETRON 4 MG INJ IV PRN (11:16)
--- NOTE | 2018-12-25 11:26 | PN ---
Date/Time of Note Date/Time of Note DATE: 12/25/18 TIME: 11:23 Assessment/Plan Lines/Catheters IV Catheter Type (from Nrs): PICC Line Henao in Place (from Nrs): No Assessment/Plan Chief Complaint/Hosp Course 1. Abdominal pain with extensive portal venous system thrombosis, right colonic wall thickening concern for ischemia secondary to venous thrombosis; abdominal pain is improving. transfer to [facility] without vascular intervention. pain with solid diet, much improved with liquid diet; abdominal pain/n/v overnight (12/24)- impoved now after bowel movement -bowel regimen -continue on full liquid diet -Medical/vascular management -No general surgical intervention at this time -Anticoagulation -ok for discharge from surgical standpoint. Will need f/u with Vascular sx, pmd, rheum, GI/hepatology. 2. Portal venous thrombosis, extensive portal venous thrombosis; -Anticoagulation -As above 3. Leukocytosis: No infectious symptoms; -monitor 4. Liver cirrhosis with generalized anasarca -Hepatic optimization -Fluid management 5. Pleural effusion, pericardial effusion -Fluid management -Per cards/pulm 6. SLE c acute flare: steroids and colchicine -Per rheumatology 7. Obesity BMI: 34 -diet and exercise optimization -encourage weight loss 8. Hypochromic anemia: -Monitor and transfuse as needed Thank you. Patient seen and examined in collaboration with Dr. Sanjay Westbrook. Subjective 24 Hr Interval Summary Abdominal pain with n/v overnight. Much improved now after bm. Tolerating full liquids. Episode of right leg swelling overnight-improved. No fevers, chills, sob, congested cough, cp, palpitations, crouch, dizziness, d/dysuria. Exam/Review of Systems Vital Signs Vitals Vital Signs Date Temp Pulse Resp B/P (MAP) Pulse Ox O2 O2 Flow FiO2 Time Delivery Rate 12/25/18 98.1 55 17 108/61 96 Room Air 07:11 (77) Intake and Output 12/24/18 12/24/18 12/25/18 1515:00 23:00 07:00 IntakeIntake Total 100 ml 220 ml 200 ml BalanceBalance 100 ml 220 ml 200 ml Exam Free Text/Dictation Constitutional: alert, oriented Psych: nl mood/affect; No anxiety Head: normocephalic, atraumatic Eyes: nl conjunctiva, EOMI, nl lids, nl sclera ENMT: nl external ears & nose, nl lips & teeth, mucosa pink and moist Neck: supple, non-tender; No jvd Respiratory: normal air movement; No congested cough Cardiovascular: regular rate and rhythm, nl pulses; No edema Gastrointestinal: soft, nontender Left side without rebound/guarding/rigidity. Obese. min distended Genitourinary - Female: nl external genitalia Musculoskeletal: nl extremities to inspection, nl gait and stance Extremities: normal pulses Neurological: nl mental status, nl speech, nl strength Skin: No rash or lesions, abdominal bruising Lymph: No nl lymph nodes Results Result Diagram: 12/24/18 0535 12/24/18 0535 FARZANA RENEE NP Dec 25, 2018 11:26
[2018-12-25 13:55] VITALS: BP 115/61; PULSE 68; RESP 18
--- NOTE | 2018-12-25 14:11 | PN ---
Date/Time of Note Date/Time of Note DATE: 12/25/18 TIME: 14:05 Assessment/Plan VTE Prophylaxis Risk score (from Nsg)>0 risk: 3 SCD applied (from Nsg): No SCD contraindicated: low risk/ambulating Pharmacological prophylaxis: apixaban Lines/Catheters IV Catheter Type (from Nrs): PICC Line Central line still needed: Yes Urinary Cath still in place: No Assessment/Plan Assessment/Plan Assessment: Bloating Chronic constipation Epigastric pain-with radiation to left upper quadrant and left flank/back- -CT is concerning for pancreatitis, however lipase and amylase WNL -Repeat abdominal CT on 12/06/2018 showed pneumatosis intestinalis of the right colon and hepatic flexure, raising concerning for bowel ischemia with microperforation of the right colon. -Repeat Ct scan 12/13/18-There is continued interval progression of colonic pneumatosis involving the proximal colon again suggestive for gangrenous bowel. There is generalized small and large bowel wall thickening with more pronounced involvement of the colon that could represent third spacing of fluid versus colitis. There is pronounced diffuse intrahepatic portal vein thrombus along with thrombosis of the entirety of the main portal vein, portal confluence, splenic vein and the majority of the superior mesenteric vein. Residual patent mesenteric veins are seen along with cavernous transformation of the portal vein and the presence of portal venous c ollateral vessels. 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 -Pt consulted by vascular sx -Currently on anti-coagulation -Transferred back from [facility] no surgical procedure was performed Left pleural effusion Diarrhea- resolved Pericardial effusion, moderate -Echocardiogram - Small to borderline moderate circumferential pericardial effusion without evidence of tamponade. EF 55% Normocytic Anemia Recent History Hematemesis EGD 11/15/2018 Extensive ulceration of the distal esophagus, rule out opportunistic infec tion, biopsies obtained. Grade II/IV esophageal varices. No stigmata of recent bleeding. No thera peutic intervention required Mild gastritis versus portal gastropathy, Otherwise normal EGD Stomach biopsy negative for H. pylori infection, no evidence of intestinal metaplasia, dysplasia, or malignancy Esophageal ulcer biopsy mucosa showing moderate chronic inflammation no squamous mucosa is present. No goblet cells are identified, no H. pylori is identified, no evidence of dysplasia or malignancy SLE/Rheumatoid arthritis/Raynaud's syndrome -On steroid therapy History of Splenectomy Depression HTN Hx of EGD/colonoscopy 09/26/18 Colonoscopy 09/26/2018colitis more significant in the area of the rectum moderate size internal hemorrhoidsbiopsy negative for evidence of colitis EGD grade II/IV esophageal varices, severe gastritisbiopsies negative for H. pylori Liver cirrhosis- with hx of EV -Hepatitis serology negative -ASMA,AMA- negative Thrombocytosis- resolved Status post finger amputation secondary to Raynaud's syndrome Leukocytosis- improving Plan: Continue Amitiza twice daily Continue Levsin Eliquis 5mg BID Full liquid diet- continue as pt has abdominal cramping with solid food. Monitor labs Steroids and supportive care Imaging and reports from [facility] have already been requested- CT scan with IV contrast of the abdomen pelvis performed which showed extensive portal venous system thrombosis noted. Vascular collaterals described above. Right colonic wall thickening raising suspicion for ischemia due to venous thrombosis. Ascites fluid. Patient seen in collaboration with Dr. Coleman Subjective: Course reviewed with nursing staff Patient interviewed and examined All labs, imaging and other results reviewed The patient reports abdominal and flank pain which was worsening last night and had some relief today after a bowel movement. She reports mild abdominal pain at this time. She is still only tolerating full liquids. She c/o right lower extremity swelling yesterday though a venous duplex was negative for DVT and she is already on anticoagulation. Continue to monitor and continue current treatme nt toño. Exam PHYSICAL EXAMINATION: GENERAL: Chronically ill appearing young woman, alert & oriented x 3, edema/swelling from chronic steroid use- improved SKIN: No lesions. HEAD: Normocephalic, atraumatic, no tenderness. EYES: Pupils equal reactive to light, no discharge. EARS/NOSE AND THROAT: Ears normal, nose normal. NECK: Supple, no masses, thyroid normal. CHEST: Inspection within normal limits. CARDIOVASCULAR: Heart: Regular rate and rhythm RESPIRATORY: Lungs clear to auscultation. GASTROINTESTINAL AND LIVER: Abdomen: obese, soft, no tenderness, non-distended, ascites, no hernias, no masses, normoactive bowel sounds. Rectal: Deferred. EXTREMITIES: No cyanosis, clubbing or edema. Right index finger amputated 1 phalanx Result Diagram: 12/24/1835 12/24/1835 CC: PAUL COLEMAN MD ; Exam/Review of Systems Exam Vitals Vital Signs Date Temp Pulse Resp B/P (MAP) Pulse Ox O2 O2 Flow FiO2 Time Delivery Rate 12/25/18 98.4 68 18 115/61 96 Room Air 13:55 (79) Intake and Output 12/24/18 12/24/18 12/25/18 1414:59 22:59 06:59 IntakeIntake Total 100 ml 220 ml 200 ml BalanceBalance 100 ml 220 ml 200 ml Medications Medication Current Medications IV Flush (NS 3 ml) 3 ml PER PROTOCOL IV ; Start 12/20/18 at 23:30 Ondansetron HCl (Zofran Inj) 4 mg Q6H PRN IV NAUSEA/VOMITING Last administered on 12/25/18 11:16; Admin Dose 4 MG; Start 12/20/18 at 23:30 Acetaminophen (Tylenol Tab) 650 mg Q6H PRN PO .PAIN 1-3 OR TEMP; Start 12/20/18 at 23:30 Hydromorphone HCl (Dilaudid) 1 mg Q4H PRN IV .SEVERE PAIN 7-10 Last administered on 12/25/18 11:16; Admin Dose 1 MG; Start 12/20/18 at 23:30 Docusate Sodium (Colace) 100 mg Q12H PRN PO .CONSTIPATION Last administered on 12/20/18 23:35; Admin Dose 100 MG; Start 12/20/18 at 23:30 Bisacodyl (Dulcolax) 5 mg DAILY PRN PO .CONSTIPATION Last administered on 12/24/18 17:00; Admin Dose 5 MG; Start 12/20/18 at 23:30 Amlodipine Besylate (Norvasc) 5 mg BID PO Last administered on 12/25/18 09:31; Admin Dose 5 MG; Start 12/21/18 at 09:00 Azathioprine (Imuran) 100 mg DAILY PO Last administered on 12/25/18 09:31; Admin Dose 100 MG; Start 12/21/18 at 09:00 Lactobacillus Acidophilus/ Rhamnosus (Culturelle) 1 cap BID PO Last administered on 12/25/18 09:28; Admin Dose 1 CAP; Start 12/21/18 at 09:00 Amylase/Lipase/ Protease (Creon ([id number])) 2 cap WITH MEALS PO Last administered on 12/25/18 12:06; Admin Dose 2 CAP; Start 12/21/18 at 08:00 Methylprednisolone Sodium Succinate (Solu-Medrol) 10 mg BID IV Last administered on 12/25/18 09:31; Admin Dose 10 MG; Start 12/21/18 at 09:00 Pantoprazole (Protonix Tab) 40 mg BID@06,18 PO Last administered on 12/25/18 06:11; Admin Dose 40 MG; Start 12/21/18 at 06:00 Sucralfate (Carafate Susp) 1 gm QID PO Last administered on 12/25/18 13:21; Admin Dose 1 GM; Start 12/21/18 at 09:00 Calcium/Vitamin D (Oyster Shell/ Vit-D (500/200)) 1 tab DAILY PO Last administered on 12/25/18 09:28; Admin Dose 1 TAB; Start 12/21/18 at 09:00 Colchicine (Colchicine) 0.6 mg BID PO Last administered on 12/25/18 09:32; Admin Dose 0.6 MG; Start 12/21/18 at 09:00 Nadolol (Corgard) 20 mg BID PO Last administered on 12/24/18 20:57; Admin Dose 20 MG; Start 12/21/18 at 09:00 Apixaban (Eliquis) 5 mg BID PO Last administered on 12/25/18 09:27; Admin Dose 5 MG; Start 12/21/18 at 09:00 Piperacillin Sod/ Tazobactam Sod 100 ml @ 200 mls/hr Q6 IVPB Last administered on 12/25/18 12:06; Admin Dose 200 MLS/HR; Start 12/21/18 at 02:00 Miscellaneous Information 1 ea NOTE XX ; Start 12/21/18 at 04:00 Glucose (Glutose) 15 gm Q15M PRN PO DECREASED GLUCOSE; Start 12/21/18 at 04:00 Glucose (Glutose) 22.5 gm Q15M PRN PO DECREASED GLUCOSE; Start 12/21/18 at 04:00 Dextrose (D50w Syringe) 25 ml Q15M PRN IV DECREASED GLUCOSE; Start 12/21/18 at 04:00 Dextrose (D50w Syringe) 50 ml Q15M PRN IV DECREASED GLUCOSE; Start 12/21/18 at 04:00 Glucagon (Glucagen) 1 mg Q15M PRN IM DECREASED GLUCOSE; Start 12/21/18 at 04:00 Glucose (Glutose) 15 gm Q15M PRN BUCCAL DECREASED GLUCOSE; Start 12/21/18 at 04:00 Docusate Sodium (Colace) 100 mg BID PRN PO CONSTIPATION; Start 12/21/18 at 05:30 Polyethylene Glycol (Miralax) 17 gm DAILY PO Last administered on 12/25/18 09:27; Admin Dose 17 GM; Start 12/21/18 at 09:00 Oxycodone HCl (Roxicodone) 5 mg Q4H PRN PO MODERATE PAIN LEVEL 4-6 Last administered on 12/23/18 09:11; Admin Dose 5 MG; Start 12/21/18 at 15:30 Hyoscyamine (Levsin (Sl)) 0.125 mg Q8 PO Last administered on 12/25/18 06:10; Admin Dose 0.125 MG; Start 12/23/18 at 15:00 Lubiprostone (Amitiza) 24 mcg BID PO Last administered on 12/25/18 09:28; Admin Dose 24 MCG; Start 12/23/18 at 15:00 KT IBANEZ NP Dec 25, 2018 14:11
--- NOTE | 2018-12-25 15:25 | DS ---
Date/Time of Note Date/Time of Note DATE: 12/25/18 TIME: 15:22 Discharge Summary Admission/Discharge Info Admit Date/Time Dec 20, 2018 at 22:20 Discharge Date/Time Discharge Diagnosis Lupus Cirrohsis PV thrombosis Patient Condition: Stable Hospital Course This is a 33-year-old female with history of autoimmune disorder with lupus, rheumatoid arthritis, hypertension, recent diagnosis of extensive gastric ulcer who was brought to the hospital due to reports of increased abdominal pain. Patient was found on initial CT scan of the abdomen to have pancreatitis on November 29, 2018. She was optimized with IV hydration. She still persisted with abdominal pain and repeat CT scan of the abdomen demonstrated pneumatosis intestinalis of the right colon and hepatic flexure with suspicion of bowel ischemia with several foci of free air in the right lower quadrant worrisome for microperforation of the right colon. She was seen by surgeon for this issue. Hemodynamically the patient has been stable and we did optimize her with IV antibiotics and judicious fluids. 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 Vascular surgeon did see the patient and did recommend anticoagulation. During patient's hospitalization we did monitor if the patient would clinically improve however she did persist with inability to tolerate oral intake. During her hospitalization it did appear her pancreatitis did improve and she was placed on Creon for this per GI recommendations. We did follow-up abdominal imaging for the patient on December 12, 2018 that did show continued interval progression of colonic pneumatosis involving the proximal colon again suggestive for gangrenous bowel. There is also generalized small and large bowel wall thickening with more pronounced involvement of the colon that was suspect representing third spacing of fluids versus colitis. After discussion with care team he was suspect that because of this may have been from portal vein thrombosis versus superior mesenteric vein thrombosis. Patient did have suspicion of gangrenous bowel per repeat imaging but did not clinically show symptoms aligning with gangrenous bowel. After discussion it was agreed that patient should be transferred to tertiary care center for possible TIPS and/or thrombectomy. She was otherwise optimized medically. She did have lupus flare for which she was seen by carbonation tester and placed on appropriate steroid medication. She had a history of chronic liver cirrhosis with history of esophageal varices and she was placed on beta- tavon. She was also continued on PPI medication for her extrinsic gastric ulcers. 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 During her course of stay patient did remain stable. After discussion with Dr. Cordero at [facility] he was plan for patient be transferred there for further management and care. The patient was evaluated by the vascular surgeon and plan was to start the patient on Eliquis and p.o. diet if there was no sequelae of PV thrombosis and if there was usually edematous small bowel that there would be consideration for TIPS. Patient had a repeat CT scan with IV contrast of the abdomen pelvis performed which showed extensive portal venous system thrombosis noted. Vascular collaterals described above. Right colonic wall thickening raising suspicion for ischemia due to venous thrombosis. Ascites fluid. It appears that the patient was on heparin drip and on TPN however patient reports to me that she was discontinued on the heparin drip and she was started on Eliquis and then transfer back to [facility]. Here she has been stable. Tolerating PO. She was discharged to further care as an outpatient on Eliquis Home Meds Active Scripts [Colchicine] 0.6 MG TAB No Conflict Check, 0.6 MG PO BID, #60 Prov:CHILO LEE NP 12/16/18 Methylprednisolone Sodium Succinate PF (Solu-Medrol PF) 40 Mg/1 Ml Vial, 10 MG IV BID for 14 Days, VIAL Prov:CHILO LEE NP 12/16/18 Fzkekh-Nbfgmmta-Rrlgffd* (Rhonda NIETO* 24,000) 24,000 L-76,000-120,000 Unit Capsule., 2 CAP PO WITH MEALS, #120 Prov:CHILO LEE NP 12/16/18 Lactobacillus Rhamnosus GG (Culturellchante) 1 Each Capsule, 1 CAP PO WITH MEALS, #120 CAP Prov:CHIOL LEE NP 12/16/18 Sfqxpqshwguy-Kaey-Bpgegicz,Iso (ZOSYN 3.375 GM GALAXY BAG) 3.375 Gm/50 Ml Froz.piggy, 3.375 GM IVPB Q6, #7 EA Prov:CHILO LEE NP 12/16/18 Cyclobenzaprine Hcl* (Cyclobenzaprine Hcl*) 10 Mg Tablet, 10 MG PO TID, #15 TAB Prov:MICKY CHAN MD 11/26/18 Tramadol HCl (Tramadol HCl) 50 Mg Tablet, 50 MG PO Q4 PRN for PAIN, #20 TAB Prov:MICKY CHAN MD 11/26/18 Sucralfate* (Carafate*) 1 Gm/10 Ml Susp, 1 GM PO QID for 30 Days, #1 EA 2 Refills Prov:LIUDMILA DUMONT MD 11/17/18 Acetaminophen* (Tylenol*) 325 Mg Tablet, 650 MG PO Q6H PRN for .PAIN 1-3 OR TEMP for 1 Day, TAB Prov:LIUMDILA DUMONT MD 11/17/18 Nadolol (Corgard) 40 Mg Tablet, 20 MG PO BID for 15 Days, #30 TAB Prov:LIUDMILA DUMONT MD 11/17/18 Pantoprazole* (Pantoprazole*) 40 Mg Tablet.dr, 40 MG PO BID@06,18 for 30 Days, #60 TAB 1 Refill Prov:LIUDMILA DUMONT MD 11/17/18 Reported Medications Amlodipine Besylate* (Amlodipine Besylate*) 10 Mg Tablet, 5 MG PO BID, #30 TAB 11/29/18 Calcium Carbonate/Vitamin D3 (Calcium 500 mg Chewable Tablet) 1 Each Tab.chew, 1 EACH PO DAILY, TAB.CHEW 11/14/18 Azathioprine* (Imuran*) 50 Mg Tab, 100 MG PO DAILY, TAB 11/14/18 Primary Care Provider [facility] MICHAEL PARKER MD Dec 25, 2018 15:25
[2018-12-25] MEDS: oxyCODONE 5 MG TAB PO PRN (18:00)
[2018-12-25 19:29] VITALS: BP 114/64; PULSE 68; RESP 18
[2018-12-26 01:24] VITALS: BP 114/63; PULSE 70; RESP 18
[2018-12-26] MEDS: HYDROmorphONE 0.5 MG/0.5 ML SYG IV PRN ×6 (01:25→22:28)
[2018-12-26] MEDS: PANTOPRAZOLE (EC) 40 MG TAB PO SCH ×2 (05:33→17:51)
[2018-12-26] MEDS: HYOSCYAMINE 0.125 MG SUBL TAB PO SCH ×3 (05:33→22:27)
[2018-12-26] MEDS: ONDANSETRON 4 MG INJ IV PRN (05:33)
[2018-12-26] MEDS: PIPER-TAZO 3.375 GM IV (PMX) 100 ML IVPB SCH ×3 (05:33→17:51)
[2018-12-26 07:56] VITALS: BP 121/62; PULSE 72; RESP 19
[2018-12-26] MEDS: METHYLPREDNISOLONE 40 MG INJ IV SCH ×2 (09:38→20:41)
[2018-12-26] MEDS: SUCRALFATE (100 MG/ML) 10ML CUP PO SCH ×2 (09:38→13:01)
[2018-12-26] MEDS: APIXABAN 5 MG TABLET PO SCH ×2 (09:38→20:41)
[2018-12-26] MEDS: AZATHIOPRINE 50 MG TAB PO SCH (09:40)
[2018-12-26] MEDS: CREON (24K-76K-120K) 1 CAP PO SCH ×3 (09:40→17:51)
[2018-12-26] MEDS: LACTOBACILLUS RHAMNOSUS CAP PO SCH ×2 (09:40→20:41)
[2018-12-26] MEDS: NADOLOL 40 MG TAB PO SCH ×2 (09:40→21:00)
[2018-12-26] MEDS: CALCIUM/VITAMIN D (500/200) TAB PO SCH (09:41)
[2018-12-26] MEDS: LUBIPROSTONE 24 MCG CAP PO SCH ×2 (09:41→20:41)
[2018-12-26] MEDS: POLYETHYLENE GLYCOL 17 GM PACKET PO SCH (09:41)
[2018-12-26] MEDS: AMLODIPINE 5 MG TAB PO SCH ×2 (09:41→20:41)
[2018-12-26] MEDS: COLCHICINE 0.6 MG CAP PO SCH ×2 (09:41→20:41)
--- NOTE | 2018-12-26 11:21 | PN ---
Date/Time of Note Date/Time of Note DATE: 12/26/18 TIME: 11:18 Assessment/Plan Lines/Catheters IV Catheter Type (from Nrs): PICC Line Henao in Place (from Nrs): No Assessment/Plan Chief Complaint/Hosp Course 1. Abdominal pain with extensive portal venous system thrombosis, right colonic wall thickening concern for ischemia secondary to venous thrombosis; abdominal pain is improving. transfer to [facility] without vascular intervention. pain with solid diet, much improved with liquid diet; abdominal pain/n/v overnight (12/24) - improved but persistent pain -bowel regimen -diet as tolerated -Medical/vascular management -No general surgical intervention at this time -Anticoagulation -ok for discharge from surgical standpoint. Will need f/u with Vascular sx, pmd, rheum, GI/hepatology. 2. Extensive portal venous thrombosis; -Anticoagulation -As above 3. Leukocytosis: No infectious symptoms; -monitor 4. Liver cirrhosis with generalized anasarca -Hepatic optimization -Fluid management 5. Pleural effusion, pericardial effusion -Fluid management -Per cards/pulm 6. SLE c acute flare: steroids and colchicine -Per rheumatology 7. Obesity BMI: 34 -diet and exercise optimization -encourage weight loss 8. Hypochromic anemia: -Monitor and transfuse as needed Thank you Subjective 24 Hr Interval Summary Abdominal pain min with bloating. N/V improved. Bowel function. Tolerating full liquids. Episode of right leg swelling overnight > xray noted. No fevers, chills, sob, congested cough, cp, palpitations, crouch, dizziness, dysuria. Exam/Review of Systems Vital Signs Vitals Vital Signs Date Temp Pulse Resp B/P (MAP) Pulse Ox O2 O2 Flow FiO2 Time Delivery Rate 12/26/18 98.2 72 19 121/62 98 07:56 (81) 12/25/18 Room Air 13:55 Intake and Output 12/25/18 12/25/18 12/26/18 1515:00 23:00 07:00 IntakeIntake Total 220 ml 940 ml 1100 ml BalanceBalance 220 ml 940 ml 1100 ml Exam Free Text/Dictation Constitutional: alert, oriented Psych: nl mood/affect; No anxiety Head: normocephalic, atraumatic Eyes: nl conjunctiva, EOMI, nl lids, nl sclera ENMT: nl external ears & nose, nl lips & teeth, mucosa pink and moist Neck: supple, non-tender; No jvd Respiratory: normal air movement; No congested cough Cardiovascular: regular rate and rhythm, nl pulses; No edema Gastrointestinal: soft, min tender, no rebound/guarding/rigidity. Obese. min distended Genitourinary - Female: nl external genitalia Musculoskeletal: nl extremities to inspection, nl gait and stance Extremities: normal pulses Neurological: nl mental status, nl speech, nl strength Skin: No rash or lesions, abdominal bruising Lymph: No nl lymph nodes Results Result Diagram: 12/24/18 0535 12/24/18 0535 MODE BRITO MD Dec 26, 2018 11:20
--- NOTE | 2018-12-26 15:43 | PN ---
Date/Time of Note Date/Time of Note DATE: 12/26/18 TIME: 15:41 Assessment/Plan VTE Prophylaxis Risk score (from Nsg)>0 risk: 6 Pharmacological prophylaxis: apixaban Lines/Catheters Urinary Cath still in place: No Assessment/Plan Hospital Course 1. Abdominal pain -CT scan of the abdomen showing acute pancreatitis (November 29, 2018) -Repeat CT scan of the abdomen on December 06, 2018 showed pneumatosis intestinalis of the right colon and hepatic flexure with suspicion of bowel ischemia with several foci of free air in the right lower quadrant worrisome for microperforation of the right colon. - Continue abx treatment. -repeat CT scan of the abdomen with IV and oral contrast 12/12/18: continued interval progression of colonic pneumatosis involving the proximal colon again suggestive for gangrenous bowel. There is generalized small and large bowel wall thickening with more pronounced involvement of the colon that could represent third spacing of fluid versus colitis -Repeat CT scan on 12/17/2018 at [facility] showed:CT scan with IV contrast of the abdomen pelvis performed which showed extensive portal venous system thrombosis noted. Vascular collaterals described above. Right colonic wall thickening raising suspicion for ischemia due to venous thrombosis. Ascites fluid. - no surgical intervention was performed at the tertiary center. Surgeons there recommended conservative management. Patient was started on Eliquis and full liquids . She continues to have pain at the current time. Will monitor the patient on clear liquid diet put on bowel regimen. Pain management. Will need to reconsult all the previous consultants in the a.m. repeat CBC CMP. - Advance diet -Simethicone added for likely gas pain, continue meds for constipation 2. 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 Initial consult note is available from the vascular surgeon however I do not see any follow-up note. Patient was apparently discontinued from heparin drip and started on Eliquis 5 mg p.o. twice daily 3. Acute pancreatitis - improved -Continue on Creon -Full liquid diet 4.Lupus flare -On IV steroids 5. Chronic liver cirrhosis with history of esophageal varices -Remains on beta-tavon 6. 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 Hx Raynaud's Syndrome - hx right mid finger amputation - continue precautions 9. Obesity - Weight reduction was advised 10. GI bleed -Hemoglobin appears stable. Monitor closely. GI consultation in the a.m. 11 DVT GI prophylaxis: Eliquis, acid tavon DC planning: Patient still with abdominal pain, have started simethicone, anticipate DC home tomorrow Result Diagram: 12/24/18 0535 12/24/18 0535 Subjective 24 Hr Interval Summary Gastrointestinal: pain Exam/Review of Systems Exam Vitals Vital Signs Date Temp Pulse Resp B/P (MAP) Pulse Ox O2 O2 Flow FiO2 Time Delivery Rate 12/26/18 98.2 72 19 121/62 98 07:56 (81) 12/25/18 Room Air 13:55 Intake and Output 12/25/18 12/25/18 12/26/18 1515:00 23:00 07:00 IntakeIntake Total 220 ml 940 ml 1100 ml BalanceBalance 220 ml 940 ml 1100 ml Constitutional: alert, oriented Respiratory: clear to auscultation Cardiovascular: regular rate and rhythm Gastrointestinal: soft; No distended Musculoskeletal: nl extremities to inspection Medications Medication Current Medications IV Flush (NS 3 ml) 3 ml PER PROTOCOL IV ; Start 12/20/18 at 23:30 Ondansetron HCl (Zofran Inj) 4 mg Q6H PRN IV NAUSEA/VOMITING Last administered on 12/26/18at 05:33; Admin Dose 4 MG; Start 12/20/18 at 23:30 Acetaminophen (Tylenol Tab) 650 mg Q6H PRN PO .PAIN 1-3 OR TEMP; Start 12/20/18 at 23:30 Hydromorphone HCl (Dilaudid) 1 mg Q4H PRN IV .SEVERE PAIN 7-10 Last adm inistered on 12/26/18at 14:17; Admin Dose 1 MG; Start 12/20/18 at 23:30 Docusate Sodium (Colace) 100 mg Q12H PRN PO .CONSTIPATION Last administered on 12/20/18at 23:35; Admin Dose 100 MG; Start 12/20/18 at 23:30 Bisacodyl (Dulcolax) 5 mg DAILY PRN PO .CONSTIPATION Last administered on 12/24/18at 17:00; Admin Dose 5 MG; Start 12/20/18 at 23:30 Amlodipine Besylate (Norvasc) 5 mg BID PO Last administered on 12/26/18 09:41; Admin Dose 5 MG; Start 12/21/18 at 09:00 Azathioprine (Imuran) 100 mg DAILY PO Last administered on 12/26/18 09:40; Admin Dose 100 MG; Start 12/21/18 at 09:00 Lactobacillus Acidophilus/ Rhamnosus (Culturelle) 1 cap BID PO Last administered on 12/26/18 09:40; Admin Dose 1 CAP; Start 12/21/18 at 09:00 Amylase/Lipase/ Protease (Creon ([id number])) 2 cap WITH MEALS PO Last administered on 12/26/18 13:01; Admin Dose 2 CAP; Start 12/21/18 at 08:00 Methylprednisolone Sodium Succinate (Solu-Medrol) 10 mg BID IV Last administered on 12/26/18 09:38; Admin Dose 10 MG; Start 12/21/18 at 09:00 Pantoprazole (Protonix Tab) 40 mg BID@06,18 PO Last administered on 12/26/18 05:33; Admin Dose 40 MG; Start 12/21/18 at 06:00 Sucralfate (Carafate Susp) 1 gm QID PO Last administered on 12/26/18 13:01; Admin Dose 1 GM; Start 12/21/18 at 09:00 Calcium/Vitamin D (Oyster Shell/ Vit-D (500/200)) 1 tab DAILY PO Last administered on 12/26/18 09:41; Admin Dose 1 TAB; Start 12/21/18 at 09:00 Colchicine (Colchicine) 0.6 mg BID PO Last administered on 12/26/18 09:41; Admin Dose 0.6 MG; Start 12/21/18 at 09:00 Nadolol (Corgard) 20 mg BID PO Last administered on 12/26/18 09:40; Admin Dose 20 MG; Start 12/21/18 at 09:00 Apixaban (Eliquis) 5 mg BID PO Last administered on 12/26/18 09:38; Admin Dose 5 MG; Start 12/21/18 at 09:00 Piperacillin Sod/ Tazobactam Sod 100 ml @ 200 mls/hr Q6 IVPB Last administered on 12/26/18 13:02; Admin Dose 200 MLS/HR; Start 12/21/18 at 02:00 Miscellaneous Information 1 ea NOTE XX ; Start 12/21/18 at 04:00 Glucose (Glutose) 15 gm Q15M PRN PO DECREASED GLUCOSE; Start 12/21/18 at 04:00 Glucose (Glutose) 22.5 gm Q15M PRN PO DECREASED GLUCOSE; Start 12/21/18 at 04:00 Dextrose (D50w Syringe) 25 ml Q15M PRN IV DECREASED GLUCOSE; Start 12/21/18 at 04:00 Dextrose (D50w Syringe) 50 ml Q15M PRN IV DECREASED GLUCOSE; Start 12/21/18 at 04:00 Glucagon (Glucagen) 1 mg Q15M PRN IM DECREASED GLUCOSE; Start 12/21/18 at 04:00 Glucose (Glutose) 15 gm Q15M PRN BUCCAL DECREASED GLUCOSE; Start 12/21/18 at 04:00 Docusate Sodium (Colace) 100 mg BID PRN PO CONSTIPATION; Start 12/21/18 at 05:30 Polyethylene Glycol (Miralax) 17 gm DAILY PO Last administered on 12/26/18 09:41; Admin Dose 17 GM; Start 12/21/18 at 09:00 Oxycodone HCl (Roxicodone) 5 mg Q4H PRN PO MODERATE PAIN LEVEL 4-6 Last administered on 12/25/18at 18:00; Admin Dose 5 MG; Start 12/21/18 at 15:30 Hyoscyamine (Levsin (Sl)) 0.125 mg Q8 PO Last administered on 12/26/18 13:02; Admin Dose 0.125 MG; Start 12/23/18 at 15:00 Lubiprostone (Amitiza) 24 mcg BID PO Last administered on 12/26/18 09:41; Admin Dose 24 MCG; Start 12/23/18 at 15:00 MARCIO BANKS Dec 26, 2018 15:43
--- NOTE | 2018-12-26 16:04 | PN ---
Date/Time of Note Date/Time of Note DATE: 12/26/18 TIME: 15:58 Assessment/Plan VTE Prophylaxis Risk score (from Ns)>0 risk: 6 Pharmacological prophylaxis: apixaban Lines/Catheters Urinary Cath still in place: No Assessment/Plan Hospital Course Assessment: Bloating Extensive portal venous thrombosis/Epigastric pain-with radiation to left upper quadrant and left flank/back- -CT is concerning for pancreatitis, however lipase and amylase WNL -Repeat abdominal CT on 12/06/2018 showed pneumatosis intestinalis of the ri ght colon and hepatic flexure, raising concerning for bowel ischemia with microperforation of the right colon. -Repeat Ct scan 12/13/18-There is continued interval progression of colonic pneumatosis involving the proximal colon again suggestive for gangrenous bowel. There is generalized small and large bowel wall thickening with more pronounced involvement of the colon that could represent third spacing of fluid versus colitis. There is pronounced diffuse intrahepatic portal vein thrombus along with thrombosis of the entirety of the main portal vein, portal confluence, splenic vein and the majority of the superior mesenteric vein. Residual patent mesenteric veins are seen along with cavernous transformation of the portal vein and the presence of portal venous collateral vessels. 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 -Pt consulted by vascular sx -Currently on anti-coagulation -Transferred back from [facility] no surgical procedure was performed Imaging and reports from [facility] have already been requested- CT scan with IV contrast of the abdomen pelvis performed which showed extensive portal venous system thrombosis noted. Vascular collaterals described above. Right colonic wall thickening raising suspicion for ischemia due to venous thrombosis. Ascites fluid. Left pleural effusion Diarrhea- resolved Pericardial effusion, moderate -Echocardiogram - Small to borderline moderate circumferential pericardial effusion without evidence of tamponade. EF 55% Normocytic Anemia Recent History Hematemesis EGD 11/15/2018 Extensive ulceration of the distal esophagus, rule out opportunistic infection, biopsies obtained. Grade II/IV esophageal varices. No stigmata of recent bleeding. No therapeutic intervention required Mild gastritis versus portal gastropathy, Otherwise normal EGD Stomach biopsy negative for H. pylori infection, no evidence of intestinal metaplasia, dysplasia, or malignancy Esophageal ulcer biopsy mucosa showing moderate chronic inflammation no squamous mucosa is present. No goblet cells are identified, no H. pylori is becca ntified, no evidence of dysplasia or malignancy SLE/Rheumatoid arthritis/Raynaud's syndrome -On steroid therapy History of Splenectomy Depression HTN Hx of EGD/colonoscopy 09/26/18 Colonoscopy 09/26/2018colitis more significant in the area of the rectum moderate size internal hemorrhoidsbiopsy negative for evidence of colitis EGD grade II/IV esophageal varices, severe gastritisbiopsies negative for H. pylori Liver cirrhosis- with hx of EV- and ascites -Hepatitis serology negative -ASMA,AMA- negative Thrombocytosis- resolved Status post finger amputation secondary to Raynaud's syndrome Leukocytosis- improving Constipation Plan: Increased ascites- will start low dose Lasix 20 mg po daily /Aldactone 25 mg po BID - will check CMP in am Eliquis 5mg BID Full liquid diet- continue as pt has abdominal cramping with solid food. 2 gm NA diet Pt appears stable for out-pt management from GI point of view - when abd pain improves Patient to f/u with GI after discharge Patient seen in collaboration with Dr. Coleman Subjective: Course reviewed with nursing staff Patient interviewed and examined All labs, imaging and other results reviewed She c/o increased abdominal girth, and abdominal pain/bloating x1 week Patient feels its 2/2 to no bm- however last BM was noted to be yesterday. Will continue to monitor. If abdominal pain -progress will order repeat imaging Exam PHYSICAL EXAMINATION: GENERAL: Chronically ill appearing young woman, alert & oriented x 3, edema/swelling from chronic steroid use- improved SKIN: No lesions. HEAD: Normocephalic, atraumatic, no tenderness. EYES: Pupils equal reactive to light, no discharge. EARS/NOSE AND THROAT: Ears normal, nose normal. NECK: Supple, no masses, thyroid normal. CHEST: Inspection within normal limits. CARDIOVASCULAR: Heart: Regular rate and rhythm RESPIRATORY: Lungs clear to auscultation. GASTROINTESTINAL AND LIVER: Abdomen: obese, soft, no tenderness, non-distended, ascites, no hernias, no masses, normoactive bowel sounds. Rectal: Deferred. EXTREMITIES: No cyanosis, clubbing or edema. Right index finger amputated 1 phalanx Result Diagram: 12/24/18 0535 12/24/18 0535 Exam/Review of Systems Exam Vitals Vital Signs Date Temp Pulse Resp B/P (MAP) Pulse Ox O2 O2 Flow FiO2 Time Delivery Rate 12/26/18 98.2 72 19 121/62 98 07:56 (81) 6/30/19 Room Air 13:55 Intake and Output 12/25/18 12/25/18 12/26/18 1515:00 23:00 07:00 IntakeIntake Total 220 ml 940 ml 1100 ml BalanceBalance 220 ml 940 ml 1100 ml Medications Medication Current Medications IV Flush (NS 3 ml) 3 ml PER PROTOCOL IV ; Start 12/20/18 at 23:30 Ondansetron HCl (Zofran Inj) 4 mg Q6H PRN IV NAUSEA/VOMITING Last administered on 12/26/18 05:33; Admin Dose 4 MG; Start 12/20/18 at 23:30 Acetaminophen (Tylenol Tab) 650 mg Q6H PRN PO .PAIN 1-3 OR TEMP; Start 12/20/18 at 23:30 Hydromorphone HCl (Dilaudid) 1 mg Q4H PRN IV .SEVERE PAIN 7-10 Last administered on 12/26/18 14:17; Admin Dose 1 MG; Start 12/20/18 at 23:30 Docusate Sodium (Colace) 100 mg Q12H PRN PO .CONSTIPATION Last administered on 12/20/18 23:35; Admin Dose 100 MG; Start 12/20/18 at 23:30 Bisacodyl (Dulcolax) 5 mg DAILY PRN PO .CONSTIPATION Last administered on 17:00; Admin Dose 5 MG; Start 12/20/18 at 23:30 Amlodipine Besylate (Norvasc) 5 mg BID PO Last administered on 12/26/18 09:41; Admin Dose 5 MG; Start 12/21/18 at 09:00 Azathioprine (Imuran) 100 mg DAILY PO Last administered on 12/26/18 09:40; Admin Dose 100 MG; Start 12/21/18 at 09:00 Lactobacillus Acidophilus/ Rhamnosus (Culturelle) 1 cap BID PO Last administered on 12/26/18 09:40; Admin Dose 1 CAP; Start 12/21/18 at 09:00 Amylase/Lipase/ Protease (Creon ([id number])) 2 cap WITH MEALS PO Last administered on 12/26/18 13:01; Admin Dose 2 CAP; Start 12/21/18 at 08:00 Methylprednisolone Sodium Succinate (Solu-Medrol) 10 mg BID IV Last administered on 12/26/18 09:38; Admin Dose 10 MG; Start 12/21/18 at 09:00 Pantoprazole (Protonix Tab) 40 mg BID@06,18 PO Last administered on 12/26/18 05:33; Admin Dose 40 MG; Start 12/21/18 at 06:00 Sucralfate (Carafate Susp) 1 gm QID PO Last administered on 12/26/18 13:01; Admin Dose 1 GM; Start 12/21/18 at 09:00 Calcium/Vitamin D (Oyster Shell/ Vit-D (500/200)) 1 tab DAILY PO Last administered on 12/26/18 09:41; Admin Dose 1 TAB; Start 12/21/18 at 09:00 Colchicine (Colchicine) 0.6 mg BID PO Last administered on 12/26/18 09:41; Adm in Dose 0.6 MG; Start 12/21/18 at 09:00 Nadolol (Corgard) 20 mg BID PO Last administered on 12/26/18 09:40; Admin Dose 20 MG; Start 12/21/18 at 09:00 Apixaban (Eliquis) 5 mg BID PO Last administered on 12/26/18 09:38; Admin Dose 5 MG; Start 12/21/18 at 09:00 Piperacillin Sod/ Tazobactam Sod 100 ml @ 200 mls/hr Q6 IVPB Last administered on 12/26/18 13:02; Admin Dose 200 MLS/HR; Start 12/21/18 at 02:00 Miscellaneous Information 1 ea NOTE XX ; Start 12/21/18 at 04:00 Glucose (Glutose) 15 gm Q15M PRN PO DECREASED GLUCOSE; Start 12/21/18 at 04:00 Glucose (Glutose) 22.5 gm Q15M PRN PO DECREASED GLUCOSE; Start 12/21/18 at 04:00 Dextrose (D50w Syringe) 25 ml Q15M PRN IV DECREASED GLUCOSE; Start 12/21/18 at 04:00 Dextrose (D50w Syringe) 50 ml Q15M PRN IV DECREASED GLUCOSE; Start 12/21/18 at 04:00 Glucagon (Glucagen) 1 mg Q15M PRN IM DECREASED GLUCOSE; Start 12/21/18 at 04:00 Glucose (Glutose) 15 gm Q15M PRN BUCCAL DECREASED GLUCOSE; Start 12/21/18 at 04:00 Docusate Sodium (Colace) 100 mg BID PRN PO CONSTIPATION; Start 12/21/18 at 05:30 Polyethylene Glycol (Miralax) 17 gm DAILY PO Last administered on 12/26/18at 09:41; Admin Dose 17 GM; Start 12/21/18 at 09:00 Oxycodone HCl (Roxicodone) 5 mg Q4H PRN PO MODERATE PAIN LEVEL 4-6 Last administered on 12/25/18at 18:00; Admin Dose 5 MG; Start 12/21/18 at 15:30 Hyoscyamine (Levsin (Sl)) 0.125 mg Q8 PO Last administered on 12/26/18at 13:02; Admin Dose 0.125 MG; Start 12/23/18 at 15:00 Lubiprostone (Amitiza) 24 mcg BID PO Last administered on 12/26/18at 09:41; Admin Dose 24 MCG; Start 12/23/18 at 15:00 Simethicone (Mylicon) 160 mg ONCE ONCE PO ; Start 12/26/18 at 16:00; Stop 12/26/18 at 16:01 Simethicone (Mylicon) 80 mg Q6H PRN PO DISTENSION/GAS/BLOATING; Start 12/26/18 at 16:00 MONIQUE DE LA ROSA Dec 26, 2018 16:04
[2018-12-26] MEDS: FUROSEMIDE 20 MG TAB PO SCH (16:36)
[2018-12-26 20:16] VITALS: BP 115/64; PULSE 58; RESP 18
[2018-12-26] MEDS: SPIRONOLACTONE 25 MG TAB PO SCH (20:41)
[2018-12-27] MEDS: PIPER-TAZO 3.375 GM IV (PMX) 100 ML IVPB SCH ×3 (00:14→12:39)
[2018-12-27 01:36] VITALS: BP 116/68; PULSE 63; RESP 18
[2018-12-27] MEDS: HYDROmorphONE 0.5 MG/0.5 ML SYG IV PRN ×4 (02:34→15:14)
[2018-12-27] MEDS: PANTOPRAZOLE (EC) 40 MG TAB PO SCH (05:39)
[2018-12-27] MEDS: HYOSCYAMINE 0.125 MG SUBL TAB PO SCH ×2 (05:39→13:40)
[2018-12-27] MEDS: AL HYDROX/MG HYDROX/SIMETH 30 ML CUP PO PRN ×2 (06:22→10:50)
[2018-12-27 08:01] VITALS: BP 166/94; PULSE 65; RESP 20
[2018-12-27 08:27] VITALS: BP 141/73; PULSE 60
[2018-12-27] MEDS: CALCIUM/VITAMIN D (500/200) TAB PO SCH (08:27)
[2018-12-27] MEDS: POLYETHYLENE GLYCOL 17 GM PACKET PO SCH (08:27)
[2018-12-27] MEDS: LACTOBACILLUS RHAMNOSUS CAP PO SCH (08:27)
[2018-12-27] MEDS: CREON (24K-76K-120K) 1 CAP PO SCH ×2 (08:29→12:45)
[2018-12-27] MEDS: AMLODIPINE 5 MG TAB PO SCH (08:29)
[2018-12-27] MEDS: COLCHICINE 0.6 MG CAP PO SCH (08:29)
[2018-12-27] MEDS: NADOLOL 40 MG TAB PO SCH (08:29)
[2018-12-27] MEDS: FUROSEMIDE 20 MG TAB PO SCH (08:29)
[2018-12-27] MEDS: SPIRONOLACTONE 25 MG TAB PO SCH (08:29)
[2018-12-27] MEDS: AZATHIOPRINE 50 MG TAB PO SCH (08:29)
[2018-12-27] MEDS: METHYLPREDNISOLONE 40 MG INJ IV SCH (08:30)
[2018-12-27] MEDS: LUBIPROSTONE 24 MCG CAP PO SCH (08:30)
[2018-12-27] MEDS: APIXABAN 5 MG TABLET PO SCH (08:33)
--- NOTE | 2018-12-27 10:09 | PN ---
Date/Time of Note Date/Time of Note DATE: 12/27/18 TIME: 10:04 Assessment/Plan Lines/Catheters IV Catheter Type (from Nrs): PICC Line Henao in Place (from Nrs): No Assessment/Plan Chief Complaint/Hosp Course 1. Abdominal pain with extensive portal venous system thrombosis, right colonic wall thickening concern for ischemia secondary to venous thrombosis; abdominal pain is improving. transfer to [facility] without vascular intervention. pain with solid diet, much improved with liquid diet; abdominal pain/n/v overnight (12/24) - improved but persistent bloating and some heartburn -gi f/u -bowel regimen -diet as tolerated -Medical/vascular management -No general surgical intervention at this time -Anticoagulation -ok for discharge from surgical standpoint. Will need f/u with Vascular sx, pmd, rheum, GI/hepatology. 2. Extensive portal venous thrombosis; -Anticoagulation -As above 3. Leukocytosis: No infectious symptoms; -monitor 4. Liver cirrhosis with generalized anasarca -Hepatic optimization -Fluid management 5. Pleural effusion, pericardial effusion -Fluid management -Per cards/pulm 6. SLE c acute flare: steroids and colchicine -Per rheumatology 7. Obesity BMI: 34 -diet and exercise optimization -encourage weight loss 8. Hypochromic anemia: -Monitor and transfuse as needed Thank you. Patient seen and examined in collaboration with Dr. Sanjay Westbrook. Subjective 24 Hr Interval Summary Some abdominal bloating and feeling of heartburn. No fevers, chills, sob, congested cough, cp, palpitations, crouch, dizziness, n/v/d/dysuria. Exam/Review of Systems Vital Signs Vitals Vital Signs Date Temp Pulse Resp B/P (MAP) Pulse Ox O2 O2 Flow FiO2 Time Delivery Rate 12/27/18 60 141/73 08:27 (95) 12/27/18 97.1 20 94 08:01 12/25/18 Room Air 13:55 Intake and Output 12/26/18 12/26/18 12/27/18 1515:00 23:00 07:00 IntakeIntake Total 100 ml 900 ml 200 ml BalanceBalance 100 ml 900 ml 200 ml Exam Free Text/Dictation Constitutional: alert, oriented Psych: nl mood/affect; No anxiety Head: normocephalic, atraumatic Eyes: nl conjunctiva, EOMI, nl lids, nl sclera ENMT: nl external ears & nose, nl lips & teeth, mucosa pink and moist Neck: supple, non-tender; No jvd Respiratory: normal air movement; No congested cough Cardiovascular: regular rate and rhythm, nl pulses; No edema Gastrointestinal: soft, min tender, no rebound/guarding/rigidity. Obese. min distended Genitourinary - Female: nl external genitalia Musculoskeletal: nl extremities to inspection, nl gait and stance Extremities: normal pulses Neurological: nl mental status, nl speech, nl strength Skin: No rash or lesions, abdominal bruising Lymph: No nl lymph nodes Results Result Diagram: 12/24/18 0535 12/24/18 0535 FARZANA RENEE NP Dec 27, 2018 10:09
[2018-12-27] MEDS: ONDANSETRON 4 MG INJ IV PRN (10:56)
--- NOTE | 2018-12-27 12:39 | PN ---
Date/Time of Note Date/Time of Note DATE: 12/27/18 TIME: 12:34 Assessment/Plan VTE Prophylaxis Risk score (from Nsg)>0 risk: 7 SCD applied (from Ns): No SCD contraindicated: low risk/ambulating Pharmacological prophylaxis: rivaroxaban Lines/Catheters IV Catheter Type (from Nrsg): PICC Line Central line still needed: Yes (meds) Urinary Cath still in place: No Assessment/Plan Hospital Course Assessment: Bloating Extensive portal venous thrombosis/Epigastric pain-with radiation to left upper quadrant and left flank/back- improved- Pt currently on Eliquis 5 mg po BID -CT is concerning for pancreatitis, however lipase and amylase WNL -Repeat abdominal CT on 12/06/2018 showed pneumatosis intestinalis of the right colon and hepatic flexure, raising concerning for bowel ischemia with microperforation of the right colon. -Repeat Ct scan 12/13/18-There is continued interval progression of colonic pneumatosis involving the proximal colon again suggestive for gangrenous bowel. There is generalized small and large bowel wall thickening with more pronounced involvement of the colon that could represent third spacing of fluid versus colitis. There is pronounced diffuse intrahepatic portal vein thrombus along with thrombosis of the entirety of the main portal vein, portal confluence, splenic vein and the majority of the superior mesenteric vein. Residual patent mesenteric veins are seen along with cavernous transformation of the portal vein and the presence of portal venous collateral vessels. 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 -Pt consulted by vascular sx -Currently on anti-coagulation -Transferred back from [facility] no surgical procedure was performed Imaging and reports from [facility] have already been requested- CT scan with IV contrast of the abdomen pelvis performed which showed extensive portal venous system thrombosis noted. Vascular collaterals described above. Right colonic wall thickening raising suspicion for ischemia due to venous thrombosis. Ascites fluid. Left pleural effusion Diarrhea- resolved Pericardial effusion, moderate -Echocardiogram - Small to borderline moderate circumferential pericardial effusion without evidence of tamponade. EF 55% Normocytic Anemia Recent History Hematemesis EGD 11/15/2018 Extensive ulceration of the distal esophagus, rule out opportunistic infection, biopsies obtained. Grade II/IV esophageal varices. No stigmata of recent bleeding. No therapeutic intervention required Mild gastritis versus portal gastropathy, Otherwise normal EGD Stomach biopsy: negative for H. pylori infection, no evidence of intestinal metaplasia, dysplasia, or malignancy Esophageal ulcer biopsy: mucosa showing moderate chronic inflammation no squamous mucosa is present. No goblet cells are identified, no H. pylori is identified, no evidence of dysplasia or malignancy SLE/Rheumatoid arthritis/Raynaud's syndrome -On steroid therapy History of Splenectomy Depression HTN Hx of EGD/colonoscopy 09/26/18 Colonoscopy 09/26/2018colitis more significant in the area of the rectum moderate size internal hemorrhoidsbiopsy negative for evidence of colitis EGD grade II/IV esophageal varices, severe gastritisbiopsies negative for H. pylori Liver cirrhosis- with hx of EV- and ascites -Hepatitis serology negative -ASMA,AMA- negative Thrombocytosis- resolved Status post finger amputation secondary to Raynaud's syndrome Leukocytosis- Constipation- having BM's Plan: Lasix 20 mg po daily /Aldactone 25 mg po BID - monitor renal function Carafate stopped yesterday- as she completed recommended treatment for ulcerative esophagitis- However after stopping she developed increase nausea/vomiting and esophageal burning- will restart Carafate susp 1 gm Po QID x4 more weeks Full liquid diet- continue as pt has abdominal cramping with solid food. 2 gm NA diet Pt appears stable for out-pt management from GI point of view - when abd pain improves Patient to f/u with GI after discharge 1-2 weeks- Patient seen in collaboration with Dr. Coleman Subjective: Course reviewed with nursing staff Patient interviewed and examined All labs, imaging and other results reviewed Patient currently sitting outside in [facility], she feels better at thsi time, She did have c/o esophageal burning and emesis this am. Bloating and abd pain has improved. Exam PHYSICAL EXAMINATION: GENERAL: Chronically ill appearing young woman, alert & oriented x 3, edema/swe lling from chronic steroid use- improved SKIN: No lesions. HEAD: Normocephalic, atraumatic, no tenderness. EYES: Pupils equal reactive to light, no discharge. EARS/NOSE AND THROAT: Ears normal, nose normal. NECK: Supple, no masses, thyroid normal. CHEST: Inspection within normal limits. CARDIOVASCULAR: Heart: Regular rate and rhythm RESPIRATORY: Lungs clear to auscultation. GASTROINTESTINAL AND LIVER: Abdomen: obese, soft, no tenderness, non-distended, ascites, no hernias, no masses, normoactive bowel sounds. Rectal: Deferred. EXTREMITIES: No cyanosis, clubbing or edema. Right index finger amputated 1 phalanx Result Diagram: 12/24/18 0512/24/18 05 Exam/Review of Systems Exam Vitals Vital Signs Date Temp Pulse Resp B/P (MAP) Pulse Ox O2 O2 Flow FiO2 Time Delivery Rate 12/27/18 60 141/73 08:27 (95) 12/27/18 97.1 20 94 08:01 12/25/18 Room Air 13:55 Intake and Output 12/26/18 12/26/18 12/27/18 1515:00 23:00 07:00 IntakeIntake Total 100 ml 900 ml 200 ml BalanceBalance 100 ml 900 ml 200 ml Medications Medication Current Medications IV Flush (NS 3 ml) 3 ml PER PROTOCOL IV ; Start 12/20/18 at 23:30 Ondansetron HCl (Zofran Inj) 4 mg Q6H PRN IV NAUSEA/VOMITING Last administered on 12/27/18at 10:56; Admin Dose 4 MG; Start 12/20/18 at 23:30 Acetaminophen (Tylenol Tab) 650 mg Q6H PRN PO .PAIN 1-3 OR TEMP; Start 12/20/18 at 23:30 Hydromorphone HCl (Dilaudid) 1 mg Q4H PRN IV .SEVERE PAIN 7-10 Last administered on 12/27/18at 10:50; Admin Dose 1 MG; Start 12/20/18 at 23:30 Docusate Sodium (Colace) 100 mg Q12H PRN PO .CONSTIPATION Last administered on 12/20/18at 23:35; Admin Dose 100 MG; Start 12/20/18 at 23:30 Bisacodyl (Dulcolax) 5 mg DAILY PRN PO .CONSTIPATION Last administered on 12/24/18 17:00; Admin Dose 5 MG; Start 12/20/18 at 23:30 Amlodipine Besylate (Norvasc) 5 mg BID PO Last administered on 12/27/18 08:29; Admin Dose 5 MG; Start 12/21/18 at 09:00 Azathioprine (Imuran) 100 mg DAILY PO Last administered on 12/27/18 08:29; Admin Dose 100 MG; Start 12/21/18 at 09:00 Lactobacillus Acidophilus/ Rhamnosus (Culturelle) 1 cap BID PO Last administered on 12/27/18 08:27; Admin Dose 1 CAP; Start 12/21/18 at 09:00 Amylase/Lipase/ Protease (Creon ([id number])) 2 cap WITH MEALS PO Last administered on 12/27/18 08:29; Admin Dose 2 CAP; Start 12/21/18 at 08:00 Methylprednisolone Sodium Succinate (Solu-Medrol) 10 mg BID IV Last administered on 12/27/18 08:30; Admin Dose 10 MG; Start 12/21/18 at 09:00 Pantoprazole (Protonix Tab) 40 mg BID@06,18 PO Last administered on 12/27/18 05:39; Admin Dose 40 MG; Start 12/21/18 at 06:00 Calcium/Vitamin D (Oyster Shell/ Vit-D (500/200)) 1 tab DAILY PO Last administered on 12/27/18 08:27; Admin Dose 1 TAB; Start 12/21/18 at 09:00 Colchicine (Colchicine) 0.6 mg BID PO Last administered on 12/27/18 08:29; Admin Dose 0.6 MG; Start 12/21/18 at 09:00 Nadolol (Corgard) 20 mg BID PO Last administered on 12/27/18 08:29; Admin Dose 20 MG; Start 12/21/18 at 09:00 Apixaban (Eliquis) 5 mg BID PO Last administered on 12/27/18 08:33; Admin Dose 5 MG; Start 12/21/18 at 09:00 Piperacillin Sod/ Tazobactam Sod 100 ml @ 200 mls/hr Q6 IVPB Last administered on 12/27/18 05:41; Admin Dose 200 MLS/HR; Start 12/21/18 at 02:00 Miscellaneous Information 1 ea NOTE XX ; Start 12/21/18 at 04:00 Glucose (Glutose) 15 gm Q15M PRN PO DECREASED GLUCOSE; Start 12/21/18 at 04:00 Glucose (Glutose) 22.5 gm Q15M PRN PO DECREASED GLUCOSE; Start 12/21/18 at 04:00 Dextrose (D50w Syringe) 25 ml Q15M PRN IV DECREASED GLUCOSE; Start 12/21/18 at 04:00 Dextrose (D50w Syringe) 50 ml Q15M PRN IV DECREASED GLUCOSE; Start 12/21/18 at 04:00 Glucagon (Glucagen) 1 mg Q15M PRN IM DECREASED GLUCOSE; Start 12/21/18 at 04:00 Glucose (Glutose) 15 gm Q15M PRN BUCCAL DECREASED GLUCOSE; Start 12/21/18 at 04:00 Docusate Sodium (Colace) 100 mg BID PRN PO CONSTIPATION; Start 12/21/18 at 05:30 Polyethylene Glycol (Miralax) 17 gm DAILY PO Last administered on 12/27/18 08:27; Admin Dose 17 GM; Start 12/21/18 at 09:00 Oxycodone HCl (Roxicodone) 5 mg Q4H PRN PO MODERATE PAIN LEVEL 4-6 Last administered on 12/25/18 18:00; Admin Dose 5 MG; Start 12/21/18 at 15:30 Hyoscyamine (Levsin (Sl)) 0.125 mg Q8 PO Last administered on 12/27/18 05:39; Admin Dose 0.125 MG; Start 12/23/18 at 15:00 Lubiprostone (Amitiza) 24 mcg BID PO Last administered on 12/27/18 08:30; Admin Dose 24 MCG; Start 12/23/18 at 15:00 Simethicone (Mylicon) 80 mg Q6H PRN PO DISTENSION/GAS/BLOATING Last admi nistered on 12/27/18 08:39; Admin Dose 80 MG; Start 12/26/18 at 16:00 Furosemide (Lasix) 20 mg DAILY PO Last administered on 12/27/18 08:29; Admin Dose 20 MG; Start 12/26/18 at 16:30 Spironolactone (Aldactone) 25 mg BID PO Last administered on 12/27/18 08:29; Admin Dose 25 MG; Start 12/26/18 at 21:00 Al Hydrox/Mg Hydrox/Simethicone (Mag-Al Plus) 30 ml Q4H PRN PO GASTROINTESTINAL UPSET Last administered on 12/27/18 10:50; Admin Dose 30 ML; Start 12/27/18 at 06:30 MONIQUE DE LA ROSA Dec 27, 2018 12:39
[2018-12-27] MEDS ORDERED: SUCRALFATE (100 MG/ML) 10ML CUP PO SCH (13:00)
[2018-12-27 13:51] VITALS: BP 130/76; PULSE 66; RESP 18
[2018-12-27] MEDS ORDERED: SPIR25TA PO (14:31)
[2018-12-27] MEDS ORDERED: HYOS0.1297 PO (14:31)
[2018-12-27] MEDS ORDERED: APIX5TAB PO (14:31)
[2018-12-27] MEDS ORDERED: LAS20 PO (14:31)
[2018-12-27] MEDS ORDERED: SIME80TA60 PO (14:31)
--- NOTE | 2018-12-27 14:32 | PDOCDIS ---
Discharge Instructions DIAGNOSIS Discharge Diagnosis Lupus Cirrohsis PV thrombosis CONDITION [id number] Patient Condition: [id number] Good HOME CARE INSTRUCTIONS: [place] Diet Instructions: Cr Reduced Sodium ACTIVITY: [place] Activity Restrictions: [id number] No Restrictions FOLLOW UP/APPOINTMENTS Follow-up Plan Follow-up with your PCP in 1 to 2 weeks, follow-up with vascular surgery MARCIO BANKS Dec 27, 2018 14:32
--- NOTE | 2019-01-01 11:34 | DS ---
Date/Time of Note Date/Time of Note DATE: 01/01/19 TIME: 11:32 Discharge Summary Admission/Discharge Info Admit Date/Time Dec 20, 2018 at 22:20 Discharge Date/Time Dec 27, 2018 at 17:10 Discharge Diagnosis Lupus Cirrohsis PV thrombosis Patient Condition: Good Hospital Course This is a 33-year-old female with history of autoimmune disorder with lupus, rheumatoid arthritis, hypertension, recent diagnosis of extensive gastric ulcer who was brought to the hospital due to reports of increased abdominal pain. Patient was found on initial CT scan of the abdomen to have pancreatitis on November 29, 2018. She was optimized with IV hydration. She still persisted with abdominal pain and repeat CT scan of the abdomen demonstrated pneumatosis intestinalis of the right colon and hepatic flexure with suspicion of bowel ischemia with several foci of free air in the right lower quadrant worrisome for microperforation of the right colon. She was seen by surgeon for this issue. Hemodynamically the patient has been stable and we did optimize her with IV antibiotics and judicious fluids. 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 Vascular surgeon did see the patient and did recommend anticoagulation. During patient's hospitalization we did monitor if the patient would clinically improve however she did persist with inability to tolerate oral intake. During her hospitalization it did appear her pancreatitis did improve and she was placed on Creon for this per GI recommendations. We did follow-up abdominal imaging for the patient on December 12, 2018 that did show continued interval progression of colonic pneumatosis involving the proximal colon again suggestive for gangrenous bowel. There is al so generalized small and large bowel wall thickening with more pronounced involvement of the colon that was suspect representing third spacing of fluids versus colitis. After discussion with care team he was suspect that because of this may have been from portal vein thrombosis versus superior mesenteric vein thrombosis. Patient did have suspicion of gangrenous bowel per repeat imaging but did not clinically show symptoms aligning with gangrenous bowel. After discussion it was agreed that patient should be transferred to tertiary care center for possible TIPS and/or thrombectomy. She was otherwise optimized medically. She did have lupus flare for which she was seen by retail general manager and placed on appropriate steroid medication. She had a history of chronic liver cirrhosis with history of esophageal varices and she was placed on beta- tavon. She was also continued on PPI medication for her extrinsic gastric ulcers. 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 During her course of stay patient did remain stable. After discussion with Dr. Cordero at [facility] he was plan for patient be transferred there for further management and care. The patient was evaluated by the vascular surgeon and plan was to start the patient on Eliquis and p.o. diet if there was no sequelae of PV thrombosis and if there was usually edematous small bowel that there would be consideration for TIPS. Patient had a repeat CT scan with IV contrast of the abdomen pelvis performed which showed extensive portal venous system thrombosis noted. Vascular collaterals described above. Right colonic wall thickening raising suspicion for ischemia due to venous thrombosis. Ascites fluid. It appears that the patient was on heparin drip and on TPN however patient reports to me that she was discontinued on the heparin drip and she was started on Eliquis and then transfer back to [facility]. No surgery was done. Patient was monitored for several more days and ultimately did tolerate a p.o. diet with improvement in pain. No plans for surgical intervention at [facility] and patient was discharg ed. She was discharged to further care as an outpatient on Eliquis [place] Meds Active Scripts Simethicone* (Mylicon*) 80 Mg Tab, 80 MG PO Q6H PRN for DISTENSION/GAS/BLOATING, #60 TAB Prov:MARCIO BANKS 12/27/18 Furosemide (Lasix) 20 Mg Tab, 20 MG PO DAILY for 30 Days, #30 TAB Prov:MARCIO BANKS 12/27/18 Spironolactone* (Aldactone*) 25 Mg Tablet, 25 MG PO BID, #60 TAB Prov:MARCIO BANKS 12/27/18 Apixaban* (Eliquis*) 5 Mg Tablet, 5 MG PO BID for 60 Days, #120 TAB 1 Refill Prov:MARCIO BANKS 12/27/18 Hyoscyamine Sulfate* (Hyoscyamine Sulfate*) 0.125 Mg Tab.subl, 0.125 MG PO Q8 for 30 Days, #90 TAB Prov:MARCIO BANKS 12/27/18 [Colchicine] 0.6 MG TAB No Conflict Check, 0.6 MG PO BID, #60 Prov:CHILO LEE NP 12/16/18 Methylprednisolone Sodium Succinate PF (Solu-Medrol PF) 40 Mg/1 Ml Vial, 10 MG IV BID for 14 Days, VIAL Prov:CHILO LEE NP 12/16/18 Mkhftl-Zkeqffel-Bghkzhj* (Rhonda NIETO* 24,000) 24,000 L-76,000-120,000 Unit Capsule.dr, 2 CAP PO WITH MEALS, #120 Prov:CHILO LEE NP 12/16/18 Lactobacillus Rhamnosus GG (Culturellchante) 1 Each Capsule, 1 CAP PO WITH MEALS, #120 CAP Prov:CHILO LEE NP 12/16/18 Cyclobenzaprine Hcl* (Cyclobenzaprine Hcl*) 10 Mg Tablet, 10 MG PO TID, #15 TAB Prov:MICKY CHAN MD 11/26/18 Tramadol HCl (Tramadol HCl) 50 Mg Tablet, 50 MG PO Q4 PRN for PAIN, #20 TAB Prov:MICKY CHAN MD 11/26/18 Sucralfate* (Carafate*) 1 Gm/10 Ml Susp, 1 GM PO QID for 30 Days, #1 EA 2 Refills Prov:LIUDMILA DUMONT MD 11/17/18 Acetaminophen* (Tylenol*) 325 Mg Tablet, 650 MG PO Q6H PRN for .PAIN 1-3 OR TEMP for 1 Day, TAB Prov:LIUDMILA DUMONT MD 11/17/18 Nadolol (Corgard) 40 Mg Tablet, 20 MG PO BID for 15 Days, #30 TAB Prov:LIUDMILA DUMONT MD 11/17/18 Pantoprazole* (Pantoprazole*) 40 Mg Tablet.dr, 40 MG PO BID@06,18 for 30 Days, #60 TAB 1 Refill Prov:LIUDMILA DUMONT MD 11/17/18 Reported Medications Amlodipine Besylate* (Amlodipine Besylate*) 10 Mg Tablet, 5 MG PO BID, #30 TAB 11/29/18 Calcium Carbonate/Vitamin D3 (Calcium 500 mg Chewable Tablet) 1 Each Tab.chew, 1 EACH PO DAILY, TAB.CHEW 11/14/18 Azathioprine* (Imuran*) 50 Mg Tab, 100 MG PO DAILY, TAB 11/14/18 Discontinued Scripts Uaoahscdzbqi-Wbpc-Evxctfoe,Iso (ZOSYN 3.375 GM GALAXY BAG) 3.375 Gm/50 Ml Froz.piggy, 3.375 GM IVPB Q6, #7 EA Prov:CHILO LEE COMMERCIAL LITIGATION ASSOCIATE 12/16/18 Follow-up Plan Follow-up with your PCP in 1 to 2 weeks, follow-up with vascular surgery Primary Care Provider [facility] Time spent on discharge: > 30 minutes MARCIO BANKS Jan 01, 2019 11:34
== END 2018-12-27 17:10 | disposition home or self-care (01) | DRG 441 ==
LOC: 2NE 22:20
PROVIDERS: ADMIT Internal Medicine; ATTEND Internal Medicine
DX: I81 Portal vein thrombosis (principal); K85.90 Acute pancreatitis without necrosis or infection, unspecified; M32.12 Pericarditis in systemic lupus erythematosus; J90 Pleural effusion, not elsewhere classified; M06.9 Rheumatoid arthritis, unspecified; K25.9 Gastric ulcer, unspecified as acute or chronic, without hemorrhage or perforation; D50.9 Iron deficiency anemia, unspecified; K63.89 Other specified diseases of intestine; I73.00 Raynaud's syndrome without gangrene; R10.12 Left upper quadrant pain; K74.60 Unspecified cirrhosis of liver
CPT/HCPCS: 80053; 82962; 83735; 85025; 87081; 93971; J1170; J1815; J2405; J2543; J2920; J7030; J7500

== ENCOUNTER 2018-12-31 18:12 | Inpatient (IN) | payer OTHER ==
[~2018-12-31] VITALS: Ht 162.6 cm; Wt 85.6 kg
[~2018-12-31 18:12] MED LIST changes: +APIX5TAB PO; +HYOS0.1297 PO; +LAS20 PO; -PIPE3.374 IVPB; +SIME80TA60 PO; +SPIR25TA PO
[2018-12-31] MEDS ORDERED: SODIUM CHLORIDE 0.9% 1L BAG IV* STA (18:48)
[2018-12-31] MEDS ORDERED: PIPER-TAZO 3.375 GM IV (PMX) 100 ML IVPB STA (18:48)
[2018-12-31] MEDS ORDERED: HYDROmorphONE 1 MG/ML SYG IV STA (19:10)
[2018-12-31] MEDS ORDERED: ONDANSETRON 4 MG INJ IV STA (19:10)
--- NOTE | 2018-12-31 19:32 | ERD ---
ER Documentation Chief Complaint Chief Complaint L sided AP rad to flank x3h. hx liver cirrh, blood clots to portal vein. HPI 33-year-old female with multiple medical problems including lupus, cirrhosis, portal vein DVT, and recent admission for colitis presenting with worsening abdominal pain today with associated diaphoresis, nausea. Her pain is on the left side radiating to her left flank, stabbing, 9 out of 10, worse with mo vement, without alleviating factors. she also complains of associated constipation but having a small bowel movement this morning which was nonbloody. she took her home Percocet which did not help. She denies any fevers, vomiting, diarrhea, melena, or hematochezia. ROS All systems reviewed and are negative except as per history of present illness. Medications Home Meds Active Scripts Simethicone* (Mylicon*) 80 Mg Tab, 80 MG PO Q6H PRN for DISTENSION/GAS/BLOATING, #60 TAB Prov:MARCIO BANKS 12/27/18 Furosemide (Lasix) 20 Mg Tab, 20 MG PO DAILY for 30 Days, #30 TAB Prov:MARCIO BANKS 12/27/18 Spironolactone* (Aldactone*) 25 Mg Tablet, 25 MG PO BID, #60 TAB Prov:MARCIO BANKS 12/27/18 Apixaban* (Eliquis*) 5 Mg Tablet, 5 MG PO BID for 60 Days, #120 TAB 1 Refill Prov:MARCIO BANKS 12/27/18 Hyoscyamine Sulfate* (Hyoscyamine Sulfate*) 0.125 Mg Tab.subl, 0.125 MG PO Q8 for 30 Days, #90 TAB Prov:MARCIO BANKS 12/27/18 [Colchicine] 0.6 MG TAB No Conflict Check, 0.6 MG PO BID, #60 Prov:CHILO LEE NP 12/16/18 Methylprednisolone Sodium Succinate PF (Solu-Medrol PF) 40 Mg/1 Ml Vial, 10 MG IV BID for 14 Days, VIAL Prov:CHILO LEE NP 12/16/18 Tfsxkm-Agfcyjif-Szroozm* (Rhonda INETO* 24,000) 24,000 L-76,000-120,000 Unit Capsule., 2 CAP PO WITH MEALS, #120 Prov:CHILO LEE NP 12/16/18 Lactobacillus Rhamnosus GG (Culturelle) 1 Each Capsule, 1 CAP PO WITH MEALS, #120 CAP Prov:CHILO LEE NP 12/16/18 Cyclobenzaprine Hcl* (Cyclobenzaprine Hcl*) 10 Mg Tablet, 10 MG PO TID, #15 TAB Prov:MICKY CHAN MD 11/26/18 Tramadol HCl (Tramadol HCl) 50 Mg Tablet, 50 MG PO Q4 PRN for PAIN, #20 TAB Prov:MICKY CHAN MD 11/26/18 Sucralfate* (Carafate*) 1 Gm/10 Ml Susp, 1 GM PO QID for 30 Days, #1 EA 2 Refills Prov:LIUDMILA DUMONT MD 11/17/18 Acetaminophen* (Tylenol*) 325 Mg Tablet, 650 MG PO Q6H PRN for .PAIN 1-3 OR TEMP for 1 Day, TAB Prov:LIUDMILA DUMONT MD 11/17/18 Nadolol (Corgard) 40 Mg Tablet, 20 MG PO BID for 15 Days, #30 TAB Prov:LIUDMILA DUMONT MD 11/17/18 Pantoprazole* (Pantoprazole*) 40 Mg Tablet.dr, 40 MG PO BID@06,18 for 30 Days, #60 TAB 1 Refill Prov:LIUDMILA DUMONT MD 11/17/18 Reported Medications Amlodipine Besylate* (Amlodipine Besylate*) 10 Mg Tablet, 5 MG PO BID, #30 TAB 11/29/18 Calcium Carbonate/Vitamin D3 (Calcium 500 mg Chewable Tablet) 1 Each Tab.chew, 1 EACH PO DAILY, TAB.CHEW 11/14/18 Azathioprine* (Imuran*) 50 Mg Tab, 100 MG PO DAILY, TAB 11/14/18 Discontinued Scripts Vnevkjymrcaa-Drcz-Bgvfhhir,Iso (ZOSYN 3.375 GM GALAXY BAG) 3.375 Gm/50 Ml Froz.piggy, 3.375 GM IVPB Q6, #7 EA Prov:CHILO LEE NP 12/16/18 Allergies Allergies: Coded Allergies: avocado (Verified Allergy, Unknown, bumps inside her mouth, 11/16/18) vancomycin (Verified Allergy, Unknown, 11/14/18) PMhx/Soc History of Surgery: Yes (Splenectomy, R index finger amputated (both 2017)) Anesthesia Reaction: No Hx Neurological Disorder: No Hx Respiratory Disorders: Yes (asthma) Hx Cardiac Disorders: Yes (Pericarditis) Hx Psychiatric Problems: No Hx Miscellaneous Medical Probl: Yes ( lupus, ra, liver cirrhosis ) Hx Alcohol Use: No Hx Substance Use: No Hx Tobacco Use: No Smoking Status: Never smoker FmHx Family History: No diabetes Physical Exam Vitals Vital Signs Date Temp Pulse Resp B/P (MAP) Pulse Ox O2 O2 Flow FiO2 Time Delivery Rate 12/31/18 97.7 95 18 126/82 98 Room Air 20:28 (97) 12/31/18 97.7 119 24 139/82 98 18:16 (101) Physical Exam Const: No apparent distress but is diaphoretic. Nontoxic Head: Atraumatic Eyes: Normal Conjunctiva ENT: Normal External Ears, Nose and Mouth. Neck: Full range of motion. No meningismus. Resp: Clear to auscultation bilaterally Cardio: Tachycardic with regular rhythm, no murmurs Abd: Soft, distended, moderate tenderness to palpation in the left side of the abdomen. Tender to percussion. Absent bowel sounds Skin: No petechiae or rashes Back: No midline or flank tenderness Ext: No cyanosis, or edema Neur: Awake and alert Psych: Normal Mood and Affect Result Diagram: 12/31/18184912/31/181849 Results 24 hrs Laboratory Tests Test 12/31/18 18:30 12/31/18 18:50 12/31/18 19:10 12/31/18 20:33 Serum HCG, NEGATIVE Qualitative White Blood Count 9.6 10^3/ul Red Blood Count 3.52 10^6/ul Hemoglobin 8.4 g/dl Hematocrit 27.6 % Mean Corpuscular 78.4 fl Volume Mean Corpuscular 23.9 pg Hemoglobin Mean Corpuscular 30.4 g/dl Hemoglobin Concent Red Cell 20.1 % Distribution Width Platelet Count 359 10^3/UL Mean Platelet 10.9 fl Volume Immature 0.600 % Granulocytes % Neutrophils % 86.3 % Lymphocytes % 2.9 % Monocytes % 9.9 % Eosinophils % 0.1 % Basophils % 0.2 % Nucleated Red Blood 1.9 /100WBC Cells % Immature 0.060 10^3/ul Granulocytes # Neutrophils # 8.2 10^3/ul Lymphocytes # 0.3 10^3/ul Monocytes # 1.0 10^3/ul Eosinophils # 0.0 10^3/ul Basophils # 0.0 10^3/ul Nucleated Red Blood 0.2 10^3/ul Cells # Prothrombin Time 17.1 Sec Prothrombin Time 1.3 Ratio INR International 1.38 Normalized Ratio Activated 37.8 Sec Partial Thromboplas t Time Sodium Level 140 mmol/L Potassium Level 4.0 mmol/L Chloride Level 108 mmol/L Carbon Dioxide 23 mmol/L Level Anion Gap 9 Blood Urea Nitrogen 7 mg/dl Creatinine 0.47 mg/dl Est Glomerular > 60 mL/min Filtrat Rate mL/min Glucose Level 121 mg/dl Calcium Level 8.3 mg/dl Total Bilirubin 1.0 mg/dl Direct Bilirubin 0.00 mg/dl Indirect Bilirubin 1.0 mg/dl Aspartate Amino 27 IU/L Transf (AST/SGOT) Alanine 62 IU/L Aminotransferase (A LT/SGPT) Alkaline 412 IU/L Phosphatase Troponin I < 0.012 ng/ml Total Protein 6.4 g/dl Albumin 3.0 g/dl Globulin 3.40 g/dl Albumin/Globulin 0.88 Ratio Lipase 23 U/L POC Venous Lactate 2.6 mmol/L POC Beta HCG, NEGATIVE Qualitative Test 12/31/18 23:30 12/31/18 23:46 Urine Color ANNABELLE Urine Clarity SLIGHTLY CLOUDY Urine pH 5.0 Urine Specific 1.021 [place] Urine Ketones NEGATIVE mg/dL Urine Nitrite NEGATIVE mg/dL Urine Bilirubin NEGATIVE mg/dL Urine Urobilinogen NEGATIVE mg/dL Urine Leukocyte TRACE Tania/ul Esterase Urine Microscopic 2 /HPF RBC Urine Microscopic 2 /HPF WBC Urine Squamous FEW /HPF Epithelial Cells Urine Mucus MODERATE /HPF Urine Hemoglobin 2+ mg/dL Urine Glucose NEGATIVE mg/dL Urine Total Protein NEGATIVE mg/dl Lactic Acid Level 0.9 mmol/L Current Medications Medications Dose Sig/Mansi Start Time Status Last (Trade) Ordered Route PRN Stop Time Admin Dose Reason Admin Piperacillin 100 ml @ ONCE STAT 12/31/18 DC 12/31/18 Sod/ 200 mls/hr IVPB 18:48 12/31/18 19:16 Tazobactam 19:17 Sod Sodium 1,640 ml BOLUS OVER 2 12/31/18 DC 12/31/18 Chloride HOURS STAT 18:48 12/31/18 19:16 (NS) IV* 18:52 1 mg ONCE STAT 12/31/18 DC 12/31/18 Hydromorphone IV 19:10 12/31/18 19:17 HCl 19:11 (Dilaudid) Ondansetron 4 mg ONCE STAT 12/31/18 DC 12/31/18 HCl (Zofran IV 19:10 12/31/18 19:17 Inj) 19:11 IV Flush 10 ml STK-MED 12/31/18 DC (NS 10 ml) ONCE .ROUTE 20:38 12/31/18 20:39 Sodium 100 ml @ ud STK-MED 12/31/18 DC Chloride ONCE .ROUTE 20:38 12/31/18 20:39 Iohexol 150 ml STK-MED 12/31/18 DC (Omnipaque ONCE .ROUTE 20:38 12/31/18 300mg/ ml) 20:39 Procedures/MDM EMERGENT LABS AND DIAGNOSTIC STUDIES: Lab Results above were reviewed and interpreted by me. CBC: Anemia, chronic. No leukocytosis but there is neutrophilia CMP: Alkaline phosphatase level elevated from baseline. Other liver studies appear normal. No evidence of clinically significant electrolyte abnormality, acidosis, renal failure, hypoglycemia Lipase: no evidence of pancreatitis Troponin within normal limits, not indicative of cardiac ischemia Lactate elevated, concerning for tissue hypoperfusion UA: no evidence of infection. 2+ hemoglobin 12-lead EKG was interpreted by Palak Wasserman MD: Normal Sinus Rhythm with ventricular rate of 98 beats per minute Left axis deviation, right bundle branch block LVH with repolarization abnormality No acute ST or T wave changes suggestive of acute ischemia or STEMI. Radiology Results as interpreted by Radiology below were reviewed by En Wasserman MD: Chest x-ray shows no significant abnormalities CT abdomen and pelvis: IMPRESSION: 1. When compared to the previous CT of 12/12/2018, the liver remains normal in size but heterogeneous with a nodular contour and prominence of the left lobe compatible with cirrhotic change. No discrete mass is identified. There is again thrombus within the main portal vein and intrahepatic branches with cavernous transformation. There is thrombus seen to the superior mesenteric vein and branches. 2. Status post splenectomy with soft tissue density seen in the splenic bed compatible with splenosis, unchanged. 3. Distended gallbladder without gallbladder wall thickening or cholelithiasis. No bile duct dilatation is evident. The pancreas is heterogeneous and suboptimally defined with fluid or phlegmon extending through the pancreatic bed raising the possibility of acute pancreatitis. Laboratory correlation is indicated. 4. There is a large amount of free intraperitoneal fluid which measures 5 HU. This has increased over the previous. No free air is identified. There is again a small fat containing umbilical hernia with stranding seen through the herniated adjacent fat along with an even smaller fat containing hernia seen lateral to the left of the umbilical hernia by approximately 2 cm. There is increasing stranding raises the possibility of strangulation. 5. There is a small hiatal hernia again noted and there is edema seen through the gastric wall. The bowel is centralized from the intraperitoneal fluid and in addition to the mild diffuse bowel wall thickening suspicious for at edema, there is now increasing thickening of the wall of the cecum and ascending colon raising the possibility of colitis. There is stranding through the omentum and mesenteric fat compatible with edema. The vermiform appendix is not discretely identified. Initial Nursing notes reviewed. Previous Medical Records requested via the Electronic Health Record. EMERGENCY DEPARTMENT COURSE / MEDICAL DECISION MAKING: Admit MDM: Patient presents with worsening abdominal pain. Her lactate was elevated, so septic work-up was done and broad-spectrum antibiotics and IV fluids based on ideal body weight given. She does have a complex medical history with complex pathology in her abdomen from her last visit. It appears that today her pancreatitis on imaging is worse, however her lipase is within normal limits. Most of the abnormalities on her CT abdomen are likely secondary to portal hypertension. At this time I have a low suspicion for serious bacterial infection. Patient's symptoms have not stabilized, and the patient is at risk of rapid decompensation. The patient will be admitted for careful hydration and further workup and management. Severe Sepsis criteria: Infectious source: unknown End organ damage indicated by: Lactate > 2.0 mmol/L Sepsis Management: Time of recognition of severe sepsis: 18:51 Within 3 hours of recognition: Blood cultures x 2 before broad-spectrum antibiotics: yes 30 ml/kg NS bolus completed based on IBW since pt's BMI>30 Initial lactate 2.6 Repeat lactate - within normal limits Septic Shock Assessment: Any lactic acid > 4.0 no Persistent hypotension (SBP < 90 or 40 mmHg drop, MAP < 65) despite 30 mL/kg IV fluid bolus - no A focused sepsis perfusion/reperfusion reassessment examination was performed post 30ml/kg bolus @: Temp 97.7 BP 126/82 HR 95 RR 18, Pox 98% Accepting Care Team Current data and ongoing care discussed. Admitting Physician: Dr. Maguire Critical Care Time: 35 minutes Treatments/Evaluations: Close monitoring and treatment of unstable vital signs, cardiorespiratory, and neurologic status, while maintaining tight balance of fluid, respiratory, and cardiac interventions. This includes the administration of emergency fluid management while maintaining close respiratory support as well as the provision of immediate and broad-spectrum antibiotic therapy, while performing a simultaneous assessment for possible sources in order to direct targeted therapy. This time includes discussing the case with the patient and the patients family.This time also includes the consideration for invasive and chemical support to prevent cardiopulmonary collapse. This time does not include all procedures stated elsewhere in this record. This time also includes reviewing old records, labs and radiological studies. This time includes examining and reexamining the patient. Additionally, this time also includes arranging care with admitting and consulting physicians. Departure Diagnosis: Primary Impression: Intractable abdominal pain Additional Impression: Iron deficiency anemia Condition: VIVEK Echavarria MD Dec 31, 2018 19:32
[2018-12-31] MEDS ORDERED: IOHEXOL 300MG/ML 150 ML BTL ONE (20:38)
[2018-12-31] MEDS ORDERED: SOD CHLORIDE 0.9% 100 ML ONE (20:38)
[2019-01-01] MEDS ORDERED: ONDANSETRON 4 MG INJ IV PRN
[2019-01-01] MEDS ORDERED: HYDROmorphONE 2 MG/ML SYG IV STA (00:05)
[2019-01-01] MEDS ORDERED: HYDROCODONE/APAP (5/325) TAB PO PRN (01:00)
[2019-01-01] MEDS ORDERED: ALBUTEROL/IPRATROPIUM (NEB) 3 ML AMP HHN PRN (01:00)
[2019-01-01] MEDS ORDERED: ACETAMINOPHEN 325 MG TAB PO PRN ×2 (01:00)
[2019-01-01 01:58] VITALS: Ht 162.6 cm; Wt 85.6 kg
[2019-01-01 02:14] VITALS: BP 146/70; PULSE 99; RESP 18
[2019-01-01] MEDS: HYDROCODONE/APAP (5/325) TAB PO PRN ×2 (05:40→09:19)
[2019-01-01] MEDS: FUROSEMIDE 20 MG TAB PO SCH (05:41)
[2019-01-01] MEDS: PANTOPRAZOLE (EC) 40 MG TAB PO SCH ×2 (05:41→18:06)
[2019-01-01] MEDS: HYOSCYAMINE 0.125 MG SUBL TAB PO SCH ×3 (05:41→21:16)
[2019-01-01 08:01] VITALS: BP 119/72; PULSE 86; RESP 18
[2019-01-01] MEDS ORDERED: COLCHICINE 0.6 MG PO SCH (09:00)
[2019-01-01] MEDS: PIPER-TAZO 3.375 GM IV (PMX) 100 ML IVPB SCH ×4 (09:18→23:41)
[2019-01-01] MEDS: SUCRALFATE (100 MG/ML) 10ML CUP PO SCH ×4 (09:18→20:11)
[2019-01-01] MEDS: COLCHICINE 0.6 MG CAP PO SCH ×2 (09:19→20:10)
[2019-01-01] MEDS: AZATHIOPRINE 50 MG TAB PO SCH (09:20)
[2019-01-01] MEDS: LACTOBACILLUS RHAMNOSUS CAP PO SCH ×3 (09:21→18:06)
[2019-01-01] MEDS: CREON (24K-76K-120K) 1 CAP PO SCH ×3 (09:21→18:06)
[2019-01-01] MEDS: APIXABAN 5 MG TABLET PO SCH ×2 (09:21→20:19)
[2019-01-01] MEDS: SPIRONOLACTONE 25 MG TAB PO SCH ×2 (09:21→20:10)
[2019-01-01] MEDS: CYCLOBENZAPRINE 10 MG TAB PO SCH ×3 (09:21→20:10)
[2019-01-01] MEDS: AMLODIPINE 10 MG TAB PO SCH ×2 (09:22→20:09)
--- NOTE | 2019-01-01 11:54 | PN ---
Date/Time of Note Date/Time of Note DATE: 01/01/19 TIME: 11:35 Assessment/Plan VTE Prophylaxis Risk score (from Ns)>0 risk: 5 SCD applied (from Ns): Yes Pharmacological prophylaxis: apixaban Assessment/Plan Hospital Course 1. Abdominal pain secondary to worsening ascending colon inflammation and/or abdominal ascites -Patient with known history of extensive portal vein thrombosis with pneumatosis intestinalis of the right colon and hepatic flexure with suspicion of bowel ischemia with several foci of free air in the right lower quadrant worrisome for microperforation of the right colon, also with generalized small and large bowel wall thickening with more pronounced involvement of the colon that could represent third spacing of fluid versus colitis -Etiology of right colon inflammation likely secondary to poor hemodynamics and venous blood flow due to portal vein thrombosis -Patient was recently hospitalized and transferred to higher level of care for evaluation of TIPS by vascular surgeon at [facility] recommended tr eatment with Eliquis and TIPS was not felt to be indicated, no surgery was performed during last hospitalization and conservative care with Eliquis was recommended -Patient now presents with worsening inflammation of the descending colon as well as worsening ascites -Paracentesis has been ordered as ascites may be the cause of her worsening pain -Surgery on-call has been consulted, previous surgeon did not operate 2. History of lupus -Continue Imuran -Patient was recently on steroids, hold off for now 3. History of pancreatitis likely related to extensive portal vein thrombosis -Lipase is within normal limits -Continue Creon 5. Chronic liver cirrhosis with history of esophageal varices-stable -Continue home beta blockers 6. 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 Hx Raynaud's Syndrome - hx right mid finger amputation - continue precautions 9. Obesity - Weight reduction was advised Prophylaxis: Eliquis Result Diagram: [id number]/31/18184912/[id number]/181849 Results 24hrs Laboratory Tests Test 12/31/18 18:30 12/31/18 18:50 12/31/18 19:10 12/31/18 20:33 Serum HCG, NEGATIVE Qualitative White Blood Count 9.6 # Red Blood Count 3.52 L Hemoglobin 8.4 L Hematocrit 27.6 L Mean Corpuscular 78.4 L Volume Mean Corpuscular 23.9 L Hemoglobin Mean Corpuscular 30.4 L Hemoglobin Concent Red Cell 20.1 H Distribution Width Platelet Count 359 # Mean Platelet 10.9 H Volume Immature 0.600 H Granulocytes % Neutrophils % 86.3 H Lymphocytes % 2.9 L Monocytes % 9.9 Eosinophils % 0.1 Basophils % 0.2 Nucleated Red 1.9 H Blood Cells % Immature 0.060 H Granulocytes # Neutrophils # 8.2 H Lymphocytes # 0.3 L Monocytes # 1.0 H Eosinophils # 0.0 Basophils # 0.0 Nucleated Red 0.2 H Blood Cells # Prothrombin Time 17.1 H Prothrombin Time 1.3 Ratio INR International 1.38 Normalized Ratio Activated 37.[address] Time Sodium Level 140 Potassium Level 4.0 Chloride Level 108 Carbon Dioxide 23 Level Anion Gap 9 Blood Urea 7 Nitrogen Creatinine 0.47 Est Glomerular > 60 Filtrat Rate mL/min Glucose Level 121 Calcium Level 8.3 L Total Bilirubin 1.0 Direct Bilirubin 0.00 Indirect Bilirubin 1.0 Aspartate Amino 27 Transf (AST/SGOT) Alanine 62 Aminotransferase ( ALT/SGPT) Alkaline 412 H Phosphatase Troponin I < 0.012 Total Protein 6.4 Albumin 3.0 L Globulin 3.40 H Albumin/Globulin 0.88 Ratio Lipase 23 POC Venous Lactate 2.6 *H POC Beta HCG, NEGATIVE Qualitative Test 12/31/18 23:30 12/31/18 23:46 Urine Color ANNABELLE Urine Clarity SLIGHTLY CLOUDY A Urine pH 5.0 Urine Specific 1.021 [place] Urine Ketones NEGATIVE Urine Nitrite NEGATIVE Urine Bilirubin NEGATIVE Urine Urobilinogen NEGATIVE Urine Leukocyte TRACE A Esterase Urine Microscopic 2 RBC Urine Microscopic 2 WBC Urine Squamous FEW Epithelial Cells Urine Mucus MODERATE Urine Hemoglobin 2+ H Urine Glucose NEGATIVE Urine Total NEGATIVE Protein Lactic Acid Level 0.9 Subjective 24 Hr Interval Summary Gastrointestinal: pain Exam/Review of Systems Exam Vitals Vital Signs Date Temp Pulse Resp B/P (MAP) Pulse Ox O2 O2 Flow FiO2 Time Delivery Rate 01/01/19 98.0 86 18 119/72 98 08:01 (88) 01/01/19 Room Air 01:40 Constitutional: alert, oriented Respiratory: clear to auscultation Cardiovascular: regular rate and rhythm Gastrointestinal: soft, distended, tender Musculoskeletal: nl extremities to inspection Results Results 24hrs Laboratory Tests Test 12/31/18 18:30 12/31/18 18:50 12/31/18 19:10 12/31/18 20:33 Serum HCG, NEGATIVE Qualitative White Blood Count 9.6 # Red Blood Count 3.52 L Hemoglobin 8.4 L Hematocrit 27.6 L Mean Corpuscular 78.4 L Volume Mean Corpuscular 23.9 L Hemoglobin Mean Corpuscular 30.4 L Hemoglobin Concent Red Cell 20.1 H Distribution Width Platelet Count 359 # Mean Platelet 10.9 H Volume Immature 0.600 H Granulocytes % Neutrophils % 86.3 H Lymphocytes % 2.9 L Monocytes % 9.9 Eosinophils % 0.1 Basophils % 0.2 Nucleated Red 1.9 H Blood Cells % Immature 0.060 H Granulocytes # Neutrophils # 8.2 H Lymphocytes # 0.3 L Monocytes # 1.0 H Eosinophils # 0.0 Basophils # 0.0 Nucleated Red 0.2 H Blood Cells # Prothrombin Time 17.1 H Prothrombin Time 1.3 Ratio INR International 1.38 Normalized Ratio Activated 37.[address] Time Sodium Level 140 Potassium Level 4.0 Chloride Level 108 Carbon Dioxide 23 Level Anion Gap 9 Blood Urea 7 Nitrogen Creatinine 0.47 Est Glomerular > 60 Filtrat Rate mL/min Glucose Level 121 Calcium Level 8.3 L Total Bilirubin 1.0 Direct Bilirubin 0.00 Indirect Bilirubin 1.0 Aspartate Amino 27 Transf (AST/SGOT) Alanine 62 Aminotransferase ( ALT/SGPT) Alkaline 412 H Phosphatase Troponin I < 0.012 Total Protein 6.4 Albumin 3.0 L Globulin 3.40 H Albumin/Globulin 0.88 Ratio Lipase 23 POC Venous Lactate 2.6 *H POC Beta HCG, NEGATIVE Qualitative Test 12/31/18 23:30 12/31/18 23:46 Urine Color ANNABELLE Urine Clarity SLIGHTLY CLOUDY A Urine pH 5.0 Urine Specific 1.021 [place] Urine Ketones NEGATIVE Urine Nitrite NEGATIVE Urine Bilirubin NEGATIVE Urine Urobilinogen NEGATIVE Urine Leukocyte TRACE A Esterase Urine Microscopic 2 RBC Urine Microscopic 2 WBC Urine Squamous FEW Epithelial Cells Urine Mucus MODERATE Urine Hemoglobin 2+ H Urine Glucose NEGATIVE Urine Total NEGATIVE Protein Lactic Acid Level 0.9 Medications Medication Current Medications Ondansetron HCl (Zofran Inj) 4 mg BRIDGE ORDER PRN IV NAUSEA/VOMITING Last admi nistered on 01/01/19at 05:40; Admin Dose 4 MG; Start 01/01/19 at 00:00; Stop 01/01/19 at 23:59 Acetaminophen (Tylenol Tab) 650 mg ER BRIDGE PRN PO .MILD PAIN 1-3 OR TEMP; Start 01/01/19 at 00:00; Stop 01/01/19 at 23:59 IV Flush (NS 3 ml) 3 ml PER PROTOCOL IV ; Start 01/01/19 at 01:00 Ondansetron HCl (Zofran Inj) 4 mg Q6H PRN IV NAUSEA/VOMITING; Start 01/01/19 at 01:00 Acetaminophen/ Hydrocodone Bitart ([place] (5/325)) 1 tab Q6H PRN PO .MOD PAIN 4- 6; Start 01/01/19 at 01:00 Acetaminophen/ Hydrocodone Bitart ([place] (5/325)) 2 tab Q6H PRN PO .SEVERE PAIN 7-10 Last administered on 01/01/19at 09:19; Admin Dose 2 TAB; Start 01/01/19 at 01:00 Albuterol/ Ipratropium (Duoneb) 3 ml Q2H RESP THERAPY PRN HHN SHORTNESS OF BREATH; Start 01/01/19 at 01:00 Acetaminophen (Tylenol Tab) 650 mg Q6H PRN PO .PAIN 1-3 OR TEMP; Start 01/01/19 at 01:00 Amlodipine Besylate (Norvasc) 5 mg BID PO Last administered on 01/01/19 09:22; Admin Dose 5 MG; Start 01/01/19 at 09:00 Apixaban (Eliquis) 5 mg BID PO Last administered on 01/01/19 09:21; Admin Dose 5 MG; Start 01/01/19 at 09:00 Azathioprine (Imuran) 100 mg DAILY PO Last administered on 01/01/19 09:20; Admin Dose 100 MG; Start 01/01/19 at 09:00 Cyclobenzaprine HCl (Flexeril) 10 mg TID PO Last administered on 01/01/19 09:21; Admin Dose 10 MG; Start 01/01/19 at 09:00 Furosemide (Lasix) 20 mg DAILY@0600 PO Last administered on 01/01/19 05:41; Admin Dose 20 MG; Start 01/01/19 at 06:00 Hyoscyamine (Levsin (Sl)) 0.125 mg Q8 PO Last administered on 01/01/19 05:41; Admin Dose 0.125 MG; Start 01/01/19 at 06:00 Lactobacillus Acidophilus/ Rhamnosus (Culturelle) 1 cap WITH MEALS PO Last administered on 01/01/19 09:21; Admin Dose 1 CAP; Start 01/01/19 at 08:00 Amylase/Lipase/ Protease (Creon ([id number])) 2 cap WITH MEALS PO Last administered on 01/01/19 09:21; Admin Dose 2 CAP; Start 01/01/19 at 08:00 Pantoprazole (Protonix Tab) 40 mg BID@06,18 PO Last administered on 01/01/19 05:41; Admin Dose 40 MG; Start 01/01/19 at 06:00 Simethicone (Mylicon) 80 mg Q6H PRN PO DISTENSION/GAS/BLOATING; Start 01/01/19 at 01:00 Spironolactone (Aldactone) 25 mg BID PO Last administered on 01/01/19 09:21; Admin Dose 25 MG; Start 01/01/19 at 09:00 Sucralfate (Carafate Susp) 1 gm QID PO Last administered on 01/01/19 09:18; Admin Dose 1 GM; Start 01/01/19 at 09:00 Tramadol HCl (Ultram) 50 mg Q4 PRN PO PAIN; Start 01/01/19 at 01:00 Colchicine (Colchicine) 0.6 mg BID PO Last administered on 01/01/19 09:19; Admin Dose 0.6 MG; Start 01/01/19 at 09:00 Piperacillin Sod/ Tazobactam Sod 100 ml @ 200 mls/hr Q6 IVPB Last administered on 01/01/19 09:18; Admin Dose 200 MLS/HR; Start 01/01/19 at 07:00 MARCIO BANKS Jan 01, 2019 11:45
[2019-01-01] MEDS: HYDROmorphONE 1 MG/ML SYG IV PRN ×3 (14:06→23:35)
[2019-01-01] MEDS: NACL 0.9% 3 ML SYG IV SCH ×2 (14:10→18:53)
[2019-01-01 14:39] VITALS: BP 132/79; PULSE 96; RESP 18
--- NOTE | 2019-01-01 16:45 | CONS ---
Assessment/Plan Assessment/Plan Assessment/Plan (Daily) Abdominal pain, most probably secondary to ascites or bowel wall thickening. No evidence of acute surgical problem. Will follow as needed. Consultation Date/Type/Reason Admit Date/Time Dec 31, 2018 at 23:57 Date of Consultation: Jan 01, 2019 Type of Consult Surgical Reason for Consultation Abdominal pain Date/Time of Note DATE: 01/01/19 TIME: 16:42 Hx of Present Illness Patient is a very complicated previous medical history. 33-year-old female with multiple medical problems including lupus, cirrhosis, portal vein DVT, and recent admission for colitis presenting with worsening abdominal pain today with associated diaphoresis, nausea. Her pain is on the left side radiating to her left flank, stabbing, 9 out of 10, worse with movement, without alleviating factors. she also complains of associated constipation but having a small bowel movement this morning which was nonbloody. she took her home Percocet which did not help. She denies any fevers, vomiting, diarrhea, melena, or hematochezia. She presented today with the diffuse abdominal pain. However at this time CT scan did not show evidence of perforation no bowel ischemia. Past Medical History Home Meds Active Scripts Simethicone* (Mylicon*) 80 Mg Tab, 80 MG PO Q6H PRN for DISTENSION/GAS/BLOATING, #60 TAB Prov:MARCIO BANKS 12/27/18 Furosemide (Lasix) 20 Mg Tab, 20 MG PO DAILY for 30 Days, #30 TAB Prov:MARCIO BANKS 12/27/18 Spironolactone* (Aldactone*) 25 Mg Tablet, 25 MG PO BID, #60 TAB Prov:MARCIO BANKS 12/27/18 Apixaban* (Eliquis*) 5 Mg Tablet, 5 MG PO BID for 60 Days, #120 TAB 1 Refill Prov:MARCIO BANKS 12/27/18 Hyoscyamine Sulfate* (Hyoscyamine Sulfate*) 0.125 Mg Tab.subl, 0.125 MG PO Q8 for 30 Days, #90 TAB Prov:MARCIO BANKS 12/27/18 [Colchicine] 0.6 MG TAB No Conflict Check, 0.6 MG PO BID, #60 Prov:HCILO LEE NP 12/16/18 Methylprednisolone Sodium Succinate PF (Solu-Medrol PF) 40 Mg/1 Ml Vial, 10 MG IV BID for 14 Days, VIAL Prov:CHILO LEE NP 12/16/18 Uzkjqq-Bsgqboot-Girxlyp* (Rhonda NIETO* 24,000) 24,000 L-76,000-120,000 Unit Capsule.dr, 2 CAP PO WITH MEALS, #120 Prov:CHILO LEE NP 12/16/18 Lactobacillus Rhamnosus GG (Culturelle) 1 Each Capsule, 1 CAP PO WITH MEALS, #120 CAP Prov:CHILO LEE NP 12/16/18 Cyclobenzaprine Hcl* (Cyclobenzaprine Hcl*) 10 Mg Tablet, 10 MG PO TID, #15 TAB Prov:MICKY CHAN MD 11/26/18 Tramadol HCl (Tramadol HCl) 50 Mg Tablet, 50 MG PO Q4 PRN for PAIN, #20 TAB Prov:MICKY CHAN MD 11/26/18 Sucralfate* (Carafate*) 1 Gm/10 Ml Susp, 1 GM PO QID for 30 Days, #1 EA 2 Refills Prov:LIUDMILA DUMONT MD 11/17/18 Acetaminophen* (Tylenol*) 325 Mg Tablet, 650 MG PO Q6H PRN for .PAIN 1-3 OR TEMP for 1 Day, TAB Prov:LIUDMILA DUMONT MD 11/17/18 Nadolol (Corgard) 40 Mg Tablet, 20 MG PO BID for 15 Days, #30 TAB Prov:LIUDMILA DUMONT MD 11/17/18 Pantoprazole* (Pantoprazole*) 40 Mg Tablet.dr, 40 MG PO BID@06,18 for 30 Days, #60 TAB 1 Refill Prov:LIUDMILA DUMONT MD 11/17/18 Reported Medications Amlodipine Besylate* (Amlodipine Besylate*) 10 Mg Tablet, 5 MG PO BID, #30 TAB 11/29/18 Calcium Carbonate/Vitamin D3 (Calcium 500 mg Chewable Tablet) 1 Each Tab.chew, 1 EACH PO DAILY, TAB.CHEW 11/14/18 Azathioprine* (Imuran*) 50 Mg Tab, 100 MG PO DAILY, TAB 11/14/18 Discontinued Scripts Ixcphgozxxdg-Ocsr-Msiusnpn,Iso (ZOSYN 3.375 GM GALAXY BAG) 3.375 Gm/50 Ml Froz.piggy, 3.375 GM IVPB Q6, #7 EA Prov:CHILO LEE [employer] 12/16/18 Medications Current Medications Ondansetron HCl (Zofran Inj) 4 mg BRIDGE ORDER PRN IV NAUSEA/VOMITING Last administered on 01/01/19at 05:40; Admin Dose 4 MG; Start 01/01/19 at 00:00; Stop 01/01/19 at 23:59 Acetaminophen (Tylenol Tab) 650 mg ER BRIDGE PRN PO .MILD PAIN 1-3 OR TEMP; Start 01/01/19 at 00:00; Stop 01/01/19 at 23:59 IV Flush (NS 3 ml) 3 ml PER PROTOCOL IV Last administered on 01/01/19at 14:10; Admin Dose 3 ML; Start 01/01/19 at 01:00 Ondansetron HCl (Zofran Inj) 4 mg Q6H PRN IV NAUSEA/VOMITING; Start 01/01/19 at 01:00 Acetaminophen/ Hydrocodone Bitart ([place] (5/325)) 1 tab Q6H PRN PO .MOD PAIN 4- 6; Start 01/01/19 at 01:00 Acetaminophen/ Hydrocodone Bitart ([place] (5/325)) 2 tab Q6H PRN PO .SEVERE PAIN 7-10 Last administered on 01/01/19at 09:19; Admin Dose 2 TAB; Start 01/01/19 at 01:00 Albuterol/ Ipratropium (Duoneb) 3 ml Q2H RESP THERAPY PRN HHN SHORTNESS OF BREATH; Start 01/01/19 at 01:00 Acetaminophen (Tylenol Tab) 650 mg Q6H PRN PO .PAIN 1-3 OR TEMP; Start 01/01/19 at 01:00 Amlodipine Besylate (Norvasc) 5 mg BID PO Last administered on 01/01/19at 09:22; Admin Dose 5 MG; Start 01/01/19 at 09:00 Apixaban (Eliquis) 5 mg BID PO Last administered on 01/01/19at 09:21; Admin Dose 5 MG; Start 01/01/19 at 09:00 Azathioprine (Imuran) 100 mg DAILY PO Last administered on 01/01/19at 09:20; Admin Dose 100 MG; Start 01/01/19 at 09:00 Cyclobenzaprine HCl (Flexeril) 10 mg TID PO Last administered on 01/01/19 13:32; Admin Dose 10 MG; Start 01/01/19 at 09:00 Furosemide (Lasix) 20 mg DAILY@0600 PO Last administered on 01/01/19 05:41; Admin Dose 20 MG; Start 01/01/19 at 06:00 Hyoscyamine (Levsin (Sl)) 0.125 mg Q8 PO Last administered on 01/01/19 13:31; Admin Dose 0.125 MG; Start 01/01/19 at 06:00 Lactobacillus Acidophilus/ Rhamnosus (Culturelle) 1 cap WITH MEALS PO Last administered on 01/01/19 13:31; Admin Dose 1 CAP; Start 01/01/19 at 08:00 Amylase/Lipase/ Protease (Creon ([id number])) 2 cap WITH MEALS PO Last administered on 01/01/19 13:32; Admin Dose 2 CAP; Start 01/01/19 at 08:00 Pantoprazole (Protonix Tab) 40 mg BID@06,18 PO Last administered on 01/01/19 05:41; Admin Dose 40 MG; Start 01/01/19 at 06:00 Simethicone (Mylicon) 80 mg Q6H PRN PO DISTENSION/GAS/BLOATING; Start 01/01/19 at 01:00 Spironolactone (Aldactone) 25 mg BID PO Last administered on 01/01/19 09:21; Admin Dose 25 MG; Start 01/01/19 at 09:00 Sucralfate (Carafate Susp) 1 gm QID PO Last administered on 01/01/19 16:16; Admin Dose 1 GM; Start 01/01/19 at 09:00 Tramadol HCl (Ultram) 50 mg Q4 PRN PO PAIN; Start 01/01/19 at 01:00 Colchicine (Colchicine) 0.6 mg BID PO Last administered on 01/01/19 09:19; A dmin Dose 0.6 MG; Start 01/01/19 at 09:00 Piperacillin Sod/ Tazobactam Sod 100 ml @ 200 mls/hr Q6 IVPB Last administered on 7/7/19at 13:31; Admin Dose 200 MLS/HR; Start 01/01/19 at 07:00 Nadolol (Corgard) 20 mg BID PO ; Start 01/01/19 at 21:00 Hydromorphone HCl (Dilaudid) 1 mg Q3H PRN IV SEVERE PAIN LEVEL 7-10 Last administered on 01/01/19at 14:06; Admin Dose 1 MG; Start 01/01/19 at 13:30 Allergies: Coded Allergies: avocado (Verified Allergy, Unknown, bumps inside her mouth, 11/16/18) vancomycin (Verified Allergy, Unknown, 11/14/18) Past Surgical History Past Surgical Hx: other Social History Smoking Status: Never smoker Exam/Review of Systems Exam Vitals Vital Signs Date Temp Pulse Resp B/P (MAP) Pulse Ox O2 O2 Flow FiO2 Time Delivery Rate 01/01/19 98.1 96 18 132/79 98 14:39 (96) 01/01/19 Room Air 01:40 Constitutional: alert, oriented, well developed Psych: no complaints, nl mood/affect Head: normocephalic, atraumatic Eyes: nl conjunctiva, EOMI, nl lids, nl sclera, PERRL ENMT: nl external ears & nose, nl lips & teeth, nl nasal mucosa & septum Neck: supple, non-tender Respiratory: clear to auscultation, normal air movement Cardiovascular: regular rate and rhythm, nl pulses Gastrointestinal: other (Abdomen is distended, probably secondary to ascites there is a very mild tenderness mostly in the left lower quadrant without rebound. Midline scar is well-healed without evidence of herniation.) Musculoskeletal: nl extremities to inspection, nl gait and stance Extremities: normal pulses Neurological: BUSINESS REPORTER II-XII intact, nl mental status, nl speech, nl strength Skin: nl turgor; No rash or lesions Lymph: nl lymph nodes Results Result Diagram: 12/31/18184912/31/181849 Results 24hrs Laboratory Tests Test 12/31/18 18:30 12/31/18 18:50 12/31/18 19:10 12/31/18 20:33 Serum HCG, NEGATIVE Qualitative White Blood Count 9.6 # Red Blood Count 3.52 L Hemoglobin 8.4 L Hematocrit 27.6 L Mean Corpuscular 78.4 L Volume Mean Corpuscular 23.9 L Hemoglobin Mean Corpuscular 30.4 L Hemoglobin Concent Red Cell 20.1 H Distribution Width Platelet Count 359 # Mean Platelet 10.9 H Volume Immature 0.600 H Granulocytes % Neutrophils % 86.3 H Lymphocytes % 2.9 L Monocytes % 9.9 Eosinophils % 0.1 Basophils % 0.2 Nucleated Red 1.9 H Blood Cells % Immature 0.060 H Granulocytes # Neutrophils # 8.2 H Lymphocytes # 0.3 L Monocytes # 1.0 H Eosinophils # 0.0 Basophils # 0.0 Nucleated Red 0.2 H Blood Cells # Prothrombin Time 17.1 H Prothrombin Time 1.3 Ratio INR International 1.38 Normalized Ratio Activated 37.[address] Time Sodium Level 140 Potassium Level 4.0 Chloride Level 108 Carbon Dioxide 23 Level Anion Gap 9 Blood Urea 7 Nitrogen Creatinine 0.47 Est Glomerular > 60 Filtrat Rate mL/min Glucose Level 121 Calcium Level 8.3 L Total Bilirubin 1.0 Direct Bilirubin 0.00 Indirect Bilirubin 1.0 Aspartate Amino 27 Transf (AST/SGOT) Alanine 62 Aminotransferase ( ALT/SGPT) Alkaline 412 H Phosphatase Troponin I < 0.012 Total Protein 6.4 Albumin 3.0 L Globulin 3.40 H Albumin/Globulin 0.88 Ratio Lipase 23 POC Venous Lactate 2.6 *H POC Beta HCG, NEGATIVE Qualitative Test 12/31/18 23:30 12/31/18 23:46 Urine Color ANNABELLE Urine Clarity SLIGHTLY CLOUDY A Urine pH 5.0 Urine Specific 1.021 [place] Urine Ketones NEGATIVE Urine Nitrite NEGATIVE Urine Bilirubin NEGATIVE Urine Urobilinogen NEGATIVE Urine Leukocyte TRACE A Esterase Urine Microscopic 2 RBC Urine Microscopic 2 WBC Urine Squamous FEW Epithelial Cells Urine Mucus MODERATE Urine Hemoglobin 2+ H Urine Glucose NEGATIVE Urine Total NEGATIVE Protein Lactic Acid Level 0.9 Medications Medication Current Medications Ondansetron HCl (Zofran Inj) 4 mg BRIDGE ORDER PRN IV NAUSEA/VOMITING Last administered on 01/01/19at 05:40; Admin Dose 4 MG; Start 01/01/19 at 00:00; Stop 01/01/19 at 23:59 Acetaminophen (Tylenol Tab) 650 mg ER BRIDGE PRN PO .MILD PAIN 1-3 OR TEMP; Start 01/01/19 at 00:00; Stop 01/01/19 at 23:59 IV Flush (NS 3 ml) 3 ml PER PROTOCOL IV Last administered on 7/7/19at 14:10; Admin Dose 3 ML; Start 01/01/19 at 01:00 Ondansetron HCl (Zofran Inj) 4 mg Q6H PRN IV NAUSEA/VOMITING; Start 01/01/19 at 01:00 Acetaminophen/ Hydrocodone Bitart ([place] (5/325)) 1 tab Q6H PRN PO .MOD PAIN 4- 6; Start 01/01/19 at 01:00 Acetaminophen/ Hydrocodone Bitart ([place] (5/325)) 2 tab Q6H PRN PO .SEVERE PAIN 7-10 Last administered on 01/01/19 09:19; Admin Dose 2 TAB; Start 01/01/19 at 01:00 Albuterol/ Ipratropium (Duoneb) 3 ml Q2H RESP THERAPY PRN HHN SHORTNESS OF BREATH; Start 01/01/19 at 01:00 Acetaminophen (Tylenol Tab) 650 mg Q6H PRN PO .PAIN 1-3 OR TEMP; Start 01/01/19 at 01:00 Amlodipine Besylate (Norvasc) 5 mg BID PO Last administered on 01/01/19 09:22; Admin Dose 5 MG; Start 01/01/19 at 09:00 Apixaban (Eliquis) 5 mg BID PO Last administered on 01/01/19 09:21; Admin Dose 5 MG; Start 01/01/19 at 09:00 Azathioprine (Imuran) 100 mg DAILY PO Last administered on 01/01/19 09:20; Admin Dose 100 MG; Start 01/01/19 at 09:00 Cyclobenzaprine HCl (Flexeril) 10 mg TID PO Last administered on 01/01/19 13:32; Admin Dose 10 MG; Start 01/01/19 at 09:00 Furosemide (Lasix) 20 mg DAILY@0600 PO Last administered on 01/01/19 05:41; Admin Dose 20 MG; Start 01/01/19 at 06:00 Hyoscyamine (Levsin (Sl)) 0.125 mg Q8 PO Last administered on 01/01/19 13:31; Admin Dose 0.125 MG; Start 01/01/19 at 06:00 Lactobacillus Acidophilus/ Rhamnosus (Culturelle) 1 cap WITH MEALS PO Last administered on 01/01/19 13:31; Admin Dose 1 CAP; Start 01/01/19 at 08:00 Amylase/Lipase/ Protease (Creon ([id number])) 2 cap WITH MEALS PO Last administered on 01/01/19at 13:32; Admin Dose 2 CAP; Start 01/01/19 at 08:00 Pantoprazole (Protonix Tab) 40 mg BID@06,18 PO Last administered on 01/01/19 05:41; Admin Dose 40 MG; Start 01/01/19 at 06:00 Simethicone (Mylicon) 80 mg Q6H PRN PO DISTENSION/GAS/BLOATING; Start 01/01/19 at 01:00 Spironolactone (Aldactone) 25 mg BID PO Last administered on 01/01/19at 09:21; Admin Dose 25 MG; Start 01/01/19 at 09:00 Sucralfate (Carafate Susp) 1 gm QID PO Last administered on 01/01/19at 16:16; Admin Dose 1 GM; Start 01/01/19 at 09:00 Tramadol HCl (Ultram) 50 mg Q4 PRN PO PAIN; Start 01/01/19 at 01:00 Colchicine (Colchicine) 0.6 mg BID PO Last administered on 01/01/19 09:19; Admin Dose 0.6 MG; Start 01/01/19 at 09:00 Piperacillin Sod/ Tazobactam Sod 100 ml @ 200 mls/hr Q6 IVPB Last administered on 01/01/19 13:31; Admin Dose 200 MLS/HR; Start 01/01/19 at 07:00 Nadolol (Corgard) 20 mg BID PO ; Start 01/01/19 at 21:00 Hydromorphone HCl (Dilaudid) 1 mg Q3H PRN IV SEVERE PAIN LEVEL 7-10 Last administered on 01/01/19 14:06; Admin Dose 1 MG; Start 01/01/19 at 13:30 NNEKA GUNN MD Jan 01, 2019 16:45
[2019-01-01 19:34] VITALS: BP 131/72; PULSE 105; RESP 20
[2019-01-01] MEDS: NADOLOL 40 MG TAB PO SCH (20:08)
[2019-01-01] MEDS: ONDANSETRON 4 MG INJ IV PRN (20:17)
--- NOTE | 2019-01-01 23:44 | HP ---
Date/Time of Note Date/Time of Note DATE: 01/01/19 TIME: 23:44 Assessment/Plan VTE Prophylaxis Risk score (from Ns)>0 risk: 5 [place] [facility] [place] Pharmacological prophylaxis: NA/contraindicated Pharm contraindication: other (Awaiting paracentesis) Lines/Catheters Urinary Cath still in place: No Assessment/Plan Assessment/Plan 1. Abdominal pain secondary to worsening ascending colon inflammation and/or abdominal ascites -Patient with known history of extensive portal vein thrombosis with pneumatosis intestinalis of the right colon and hepatic flexure with suspicion of bowel ischemia with several foci of free air in the right lower quadrant worrisome for microperforation of the right colon, also with generalized small and large bowel wall thickening with more pronounced involvement of the colon that could represent third spacing of fluid versus colitis -Etiology of right colon inflammation likely secondary to poor hemodynamics and venous blood flow due to portal vein thrombosis -Patient was recently hospitalized and transferred to higher level of care for evaluation of TIPS by vascular surgeon at [facility] recommended treatment with Eliquis and TIPS was not felt to be indicated, no surgery was performed during last hospitalization and conservative care with Eliquis was recommended -Patient now presents with worsening inflammation of the descending colon as well as worsening ascites -Paracentesis has been ordered as ascites may be the cause of her worsening pain -Surgery on-call has been consulted, previous surgeon did not operate 2. History of lupus -Continue Imuran -Patient was recently on steroids, hold off for now 3. History of pancreatitis likely related to extensive portal vein thrombosis -Lipase is within normal limits -Continue Creon 5. Chronic liver cirrhosis with history of esophageal varices-stable -Continue home beta blockers 6. 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 Hx Raynaud's Syndrome - hx right mid finger amputation - continue precautions 9. Obesity - Weight reduction was advised Result Diagram: 12/31/18184912/31/181849 Results 24hrs Laboratory Tests Test 12/31/18 23:46 Lactic Acid Level 0.9 HPI/ROS Admit Date/Time Admit Date/Time Dec 31, 2018 at 23:57 Hx of Present Illness Patient is a 33-year-old female with history of lupus, rheumatoid arthritis, hypertension, extensive gastric ulcer, portal vein thrombosis, pneumatosis intestinalis of the right colon and hepatic flexure, questionable microperforation of right colon who presented to ER complaining of worsening abdominal pain. Patient was admitted here recently where she was diagnosed with portal vein thrombosis, pneumatosis intestinalis of the right colon and hepatic flexure with suspicion of bowel ischemia with several foci of free air in the right lower quadrant worrisome for microperforation of the right colon. Patient was briefly treated with heparin for portal vein thrombosis and then was placed on Eliquis. At that time she was sent to an outside hospital where she was treated conservatively with a surgical intervention and was eventually sent back to [facility]. Please see recent discharge summary for more information. When she presented to the ER this time, CT shows the followin. When compared to the previous CT of 12/12/2018, the liver remains normal in size but heterogeneous with a nodular contour and prominence of the left lobe compatible with cirrhotic change. No discrete mass is identified. There is again thrombus within the main portal vein and intrahepatic branches with cavernous transformation. There is thrombus seen to the superior mesenteric vein and branches. 2. Status post splenectomy with soft tissue density seen in the splenic bed compatible with splenosis, unchanged. 3. Distended gallbladder without gallbladder wall thickening or cholelithiasis. No bile duct dilatation is evident. The pancreas is heterogeneous and suboptimally defined with fluid or phlegmon extending through the pancreatic bed raising the possibility of acute pancreatitis. Laboratory correlation is indicat ed. 4. There is a large amount of free intraperitoneal fluid which measures 5 HU. This has increased over the previous. No free air is identified. There is again a small fat containing umbilical hernia with stranding seen through the herniated adjacent fat along with an even smaller fat containing hernia seen lateral to the left of the umbilical hernia by approximately 2 cm. There is increasing stranding raises the possibility of strangulation. 5. There is a small hiatal hernia again noted and there is edema seen through the gastric wall. The bowel is centralized from the intraperitoneal fluid and in addition to the mild diffuse bowel wall thickening suspicious for at edema, there is now increasing thickening of the wall of the cecum and ascending colon raising the possibility of colitis. There is stranding through the omentum and mesenteric fat compatible with edema. The vermiform appendix is not discretely identified. PMH/Family/Social Past Medical History Medical History: other (See HPI) Medications Current Medications Ondansetron HCl (Zofran Inj) 4 mg BRIDGE ORDER PRN IV NAUSEA/VOMITING Last administered on 01/01/19 05:40; Admin Dose 4 MG; Start 01/01/19 at 00:00; Stop 01/01/19 at 23:59 Acetaminophen (Tylenol Tab) 650 mg ER BRIDGE PRN PO .MILD PAIN 1-3 OR TEMP; Start 01/01/19 at 00:00; Stop 01/01/19 at 23:59 IV Flush (NS 3 ml) 3 ml PER PROTOCOL IV Last administered on 01/01/19 18:53; A dmin Dose 3 ML; Start 01/01/19 at 01:00 Ondansetron HCl (Zofran Inj) 4 mg Q6H PRN IV NAUSEA/VOMITING Last administered on 01/01/19 20:17; Admin Dose 4 MG; Start 01/01/19 at 01:00 Acetaminophen/ Hydrocodone Bitart ([place] (5/325)) 1 tab Q6H PRN PO .MOD PAIN 4- 6; Start 01/01/19 at 01:00 Acetaminophen/ Hydrocodone Bitart ([place] (5/325)) 2 tab Q6H PRN PO .SEVERE PAIN 7-10 Last administered on 01/01/19 09:19; Admin Dose 2 TAB; Start 01/01/19 at 01:00 Albuterol/ Ipratropium (Duoneb) 3 ml Q2H RESP THERAPY PRN HHN SHORTNESS OF BREATH; Start 01/01/19 at 01:00 Acetaminophen (Tylenol Tab) 650 mg Q6H PRN PO .PAIN 1-3 OR TEMP; Start 01/01/19 at 01:00 Amlodipine Besylate (Norvasc) 5 mg BID PO Last administered on 01/01/19 20:09; Admin Dose 5 MG; Start 01/01/19 at 09:00 Apixaban (Eliquis) 5 mg BID PO Last administered on 01/01/19 09:21; Admin Dose 5 MG; Start 01/01/19 at 09:00 Azathioprine (Imuran) 100 mg DAILY PO Last administered on 01/01/19 09:20; Admin Dose 100 MG; Start 01/01/19 at 09:00 Cyclobenzaprine HCl (Flexeril) 10 mg TID PO Last administered on 01/01/19 20:10; Admin Dose 10 MG; Start 01/01/19 at 09:00 Furosemide (Lasix) 20 mg DAILY@0600 PO Last administered on 01/01/19 05:41; Admin Dose 20 MG; Start 01/01/19 at 06:00 Hyoscyamine (Levsin (Sl)) 0.125 mg Q8 PO Last administered on 01/01/19 21:16; Admin Dose 0.125 MG; Start 01/01/19 at 06:00 Lactobacillus Acidophilus/ Rhamnosus (Culturelle) 1 cap WITH MEALS PO Last administered on 01/01/19 18:06; Admin Dose 1 CAP; Start 01/01/19 at 08:00 Amylase/Lipase/ Protease (Creon ([id number])) 2 cap WITH MEALS PO Last administered on 01/01/19 18:06; Admin Dose 2 CAP; Start 01/01/19 at 08:00 Pantoprazole (Protonix Tab) 40 mg BID@06,18 PO Last administered on 01/01/19 18:06; Admin Dose 40 MG; Start 01/01/19 at 06:00 Simethicone (Mylicon) 80 mg Q6H PRN PO DISTENSION/GAS/BLOATING; Start 01/01/19 at 01:00 Spironolactone (Aldactone) 25 mg BID PO Last administered on 01/01/19 20:10; Admin Dose 25 MG; Start 01/01/19 at 09:00 Sucralfate (Carafate Susp) 1 gm QID PO Last administered on 01/01/19 20:11; Admin Dose 1 GM; Start 01/01/19 at 09:00 Tramadol HCl (Ultram) 50 mg Q4 PRN PO PAIN; Start 01/01/19 at 01:00 Colchicine (Colchicine) 0.6 mg BID PO Last administered on 01/01/19 20:10; Admin Dose 0.6 MG; Start 01/01/19 at 09:00 Piperacillin Sod/ Tazobactam Sod 100 ml @ 200 mls/hr Q6 IVPB Last administered on 01/01/19 23:41; Admin Dose 200 MLS/HR; Start 01/01/19 at 07:00 Nadolol (Corgard) 20 mg BID PO Last administered on 01/01/19at 20:08; Admin Dose 20 MG; Start 01/01/19 at 21:00 Hydromorphone HCl (Dilaudid) 1 mg Q3H PRN IV SEVERE PAIN LEVEL 7-10 Last administered on 01/01/19at 23:35; Admin Dose 1 MG; Start 01/01/19 at 13:30 Coded Allergies: avocado (Verified Allergy, Unknown, bumps inside her mouth, 11/16/18) vancomycin (Verified Allergy, Unknown, 11/14/18) Past Surgical History Past Surgical Hx: other (See HPI) Family History Significant Family History: no pertinent family hx Social History Alcohol Use: none Smoking Status: Never smoker Drug Use: none Exam/Review of Systems Vital Signs Vitals Vital Signs Date Temp Pulse Resp B/P (MAP) Pulse Ox O2 O2 Flow FiO2 Time Delivery Rate 01/01/19 98.7 105 20 131/72 95 19:34 (91) 01/01/19 Room Air 01:40 Exam Constitutional: other (No acute distress) Head: normocephalic, atraumatic Eyes: EOMI, PERRL Respiratory: clear to auscultation, normal air movement Cardiovascular: regular rate and rhythm, nl pulses Gastrointestinal: distended, tender Extremities: normal pulses MEKHI GOODMAN MD Jan 01, 2019 23:44
[2019-01-01 23:53] VITALS: PULSE 133
[2019-01-02] MEDS ORDERED: HYDROmorphONE 0.5 MG/0.5 ML SYG IV STA (00:08)
[2019-01-02] MEDS ORDERED: ACETAMINOPHEN 1000MG/100ML IV 100 ML IVPB ONE (00:30)
[2019-01-02] MEDS ORDERED: LEVALBUTEROL (NEB) 0.63 MG/3 ML AMP HHN PRN (00:30)
[2019-01-02] MEDS ORDERED: VANCOMYCIN IV PER PHARMACY XX SCH (00:30)
[2019-01-02] MEDS: CLINDAMYCIN 600 MG/D5W (PMX) 50 ML IVPB SCH ×3 (02:42→14:09)
[2019-01-02 04:00] VITALS: BP 125/71; PULSE 97; RESP 20
[2019-01-02] MEDS: PIPER-TAZO 3.375 GM IV (PMX) 100 ML IVPB SCH ×4 (05:32→23:15)
[2019-01-02] MEDS: PANTOPRAZOLE (EC) 40 MG TAB PO SCH ×2 (06:24→17:13)
[2019-01-02] MEDS: HYOSCYAMINE 0.125 MG SUBL TAB PO SCH (06:24)
[2019-01-02] MEDS: FUROSEMIDE 20 MG TAB PO SCH (06:28)
[2019-01-02 07:14] VITALS: BP 122/65; PULSE 93; RESP 18
[2019-01-02] MEDS: ONDANSETRON 4 MG INJ IV PRN ×2 (08:37→22:02)
[2019-01-02] MEDS: SPIRONOLACTONE 25 MG TAB PO SCH ×2 (08:50→22:22)
[2019-01-02] MEDS: CYCLOBENZAPRINE 10 MG TAB PO SCH (08:50)
[2019-01-02] MEDS: CREON (24K-76K-120K) 1 CAP PO SCH ×3 (08:50→17:13)
[2019-01-02] MEDS: AZATHIOPRINE 50 MG TAB PO SCH (08:50)
[2019-01-02] MEDS: COLCHICINE 0.6 MG CAP PO SCH ×2 (08:51→22:22)
[2019-01-02] MEDS: AMLODIPINE 10 MG TAB PO SCH ×2 (08:51→22:23)
[2019-01-02] MEDS: LACTOBACILLUS RHAMNOSUS CAP PO SCH ×2 (08:51→11:50)
[2019-01-02] MEDS: NADOLOL 40 MG TAB PO SCH ×2 (08:52→22:24)
[2019-01-02] MEDS: SUCRALFATE (100 MG/ML) 10ML CUP PO SCH ×4 (08:56→22:25)
[2019-01-02] MEDS: APIXABAN 5 MG TABLET PO SCH ×2 (09:00→22:22)
[2019-01-02] MEDS: traMADol 50 MG TAB PO PRN ×2 (11:11→22:23)
[2019-01-02 11:46] VITALS: BP 123/65; PULSE 84; RESP 18
[2019-01-02] MEDS: HYDROmorphONE 1 MG/ML SYG IV PRN ×2 (13:22→23:14)
--- NOTE | 2019-01-02 15:29 | PN ---
Date/Time of Note Date/Time of Note DATE: 01/02/19 TIME: 15:25 Assessment/Plan VTE Prophylaxis Risk score (from Nsg)>0 risk: 1 SCD applied (from Nsg): Yes Pharmacological prophylaxis: heparin Lines/Catheters IV Catheter Type (from Nrsg): Peripheral IV Urinary Cath still in place: No Assessment/Plan Hospital Course Appears well no distress RRR CTAB Abdomen distended, mildly tender in epigastrium Mild pedal edema A/P: 33 yo female with lupus and cirrhosis and PVT who presents with continue abdominal pain - Exact etiology of pain is unclear. It is located primarily in epigastrium. CT scan shows pancretic stranding but lipase is normal making pancreatitis unlikely. Perhpas her pain is 2/2 hiatial hernia, Dr Varghese from general surgery does not advocate for operation. 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 Chronic liver cirrhosis with history of esophageal varices-stable -Continue home beta blockers 6. 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 Hx Raynaud's Syndrome - hx right mid finger amputation - continue precautions 9. Obesity - Weight reduction was advised Result Diagram: 01/02/19 0554 01/02/19 0554 Results 24hrs Laboratory Tests Test 01/02/19 05:54 White Blood Count 11.9 #H Red Blood Count 3.79 L Hemoglobin 8.9 L Hematocrit 29.7 L Mean Corpuscular Volume 78.4 L Mean Corpuscular Hemoglobin 23.5 L Mean Corpuscular Hemoglobin Concent 30.0 L Red Cell Distribution Width 19.9 H Platelet Count 399 Mean Platelet Volume 11.4 H Immature Granulocytes % 0.600 H Neutrophils % 70.1 Lymphocytes % 6.4 L Monocytes % 18.9 H Eosinophils % 3.7 Basophils % 0.3 Nucleated Red Blood Cells % 2.1 H Immature Granulocytes # 0.070 H Neutrophils # 8.3 H Lymphocytes # 0.8 Monocytes # 2.2 H Eosinophils # 0.4 Basophils # 0.0 Nucleated Red Blood Cells # 0.3 H Sodium Level 141 Potassium Level 3.9 Chloride Level 109 Carbon Dioxide Level 25 Anion Gap 7 Blood Urea Nitrogen 5 L Creatinine 0.67 Est Glomerular Filtrat Rate mL/min > 60 Glucose Level 95 Calcium Level 8.1 L Phosphorus Level 4.2 Magnesium Level 1.8 Total Bilirubin 0.8 Direct Bilirubin 0.00 Indirect Bilirubin 0.8 Aspartate Amino Transf (AST/SGOT) 30 Alanine Aminotransferase (ALT/SGPT) 49 Alkaline Phosphatase 387 H Total Protein 6.1 Albumin 2.9 L Globulin 3.20 Albumin/Globulin Ratio 0.90 Subjective 24 Hr Interval Summary Free Text/Dictation Continues to have severe epigastric pain Fevers persist Exam/Review of Systems Exam Vitals Vital Signs Date Temp Pulse Resp B/P (MAP) Pulse Ox O2 O2 Flow FiO2 Time Delivery Rate 01/02/19 99.6 12:00 01/02/19 84 18 123/65 98 Nasal 11:46 (84) Cannula 01/02/19 2.0 00:11 Intake and Output 01/01/19 01/01/19 01/02/19 1515:00 23:00 07:00 IntakeIntake Total 200 ml 250 ml BalanceBalance 200 ml 250 ml Results Results 24hrs Laboratory Tests Test 01/02/19 05:54 White Blood Count 11.9 #H Red Blood Count 3.79 L Hemoglobin 8.9 L Hematocrit 29.7 L Mean Corpuscular Volume 78.4 L Mean Corpuscular Hemoglobin 23.5 L Mean Corpuscular Hemoglobin Concent 30.0 L Red Cell Distribution Width 19.9 H Platelet Count 399 Mean Platelet Volume 11.4 H Immature Granulocytes % 0.600 H Neutrophils % 70.1 Lymphocytes % 6.4 L Monocytes % 18.9 H Eosinophils % 3.7 Basophils % 0.3 Nucleated Red Blood Cells % 2.1 H Immature Granulocytes # 0.070 H Neutrophils # 8.3 H Lymphocytes # 0.8 Monocytes # 2.2 H Eosinophils # 0.4 Basophils # 0.0 Nucleated Red Blood Cells # 0.3 H Sodium Level 141 Potassium Level 3.9 Chloride Level 109 Carbon Dioxide Level 25 Anion Gap 7 Blood Urea Nitrogen 5 L Creatinine 0.67 Est Glomerular Filtrat Rate mL/min > 60 Glucose Level 95 Calcium Level 8.1 L Phosphorus Level 4.2 Magnesium Level 1.8 Total Bilirubin 0.8 Direct Bilirubin 0.00 Indirect Bilirubin 0.8 Aspartate Amino Transf (AST/SGOT) 30 Alanine Aminotransferase (ALT/SGPT) 49 Alkaline Phosphatase 387 H Total Protein 6.1 Albumin 2.9 L Globulin 3.20 Albumin/Globulin Ratio 0.90 Medications Medication Current Medications IV Flush (NS 3 ml) 3 ml PER PROTOCOL IV Last administered on 01/01/19 18:53; Admin Dose 3 ML; Start 01/01/19 at 01:00 Ondansetron HCl (Zofran Inj) 4 mg Q6H PRN IV NAUSEA/VOMITING Last administered on 01/02/19 08:37; Admin Dose 4 MG; Start 01/01/19 at 01:00 Acetaminophen/ Hydrocodone Bitart ([place] (5/325)) 1 tab Q6H PRN PO .MOD PAIN 4- 6; Start 01/01/19 at 01:00 Acetaminophen/ Hydrocodone Bitart ([place] (5/325)) 2 tab Q6H PRN PO .SEVERE PAIN 7-10 Last administered on 01/01/19 09:19; Admin Dose 2 TAB; Start 01/01/19 at 01:00 Acetaminophen (Tylenol Tab) 650 mg Q6H PRN PO .PAIN 1-3 OR TEMP Last administered on 01/02/19 11:10; Admin Dose 650 MG; Start 01/01/19 at 01:00 Amlodipine Besylate (Norvasc) 5 mg BID PO Last administered on 01/02/19 08:51; Admin Dose 5 MG; Start 01/01/19 at 09:00 Apixaban (Eliquis) 5 mg BID PO Last administered on 01/01/19 09:21; Admin Dose 5 MG; Start 01/01/19 at 09:00 Azathioprine (Imuran) 100 mg DAILY PO Last administered on 01/02/19 08:50; Admin Dose 100 MG; Start 01/01/19 at 09:00 Furosemide (Lasix) 20 mg DAILY@0600 PO Last administered on 01/02/19 06:28; Admin Dose 20 MG; Start 01/01/19 at 06:00 Lactobacillus Acidophilus/ Rhamnosus (Culturelle) 1 cap WITH MEALS PO Last administered on 01/02/19 08:51; Admin Dose 1 CAP; Start 01/01/19 at 08:00 Amylase/Lipase/ Protease (Creon ([id number])) 2 cap WITH MEALS PO Last administered on 01/02/19 08:50; Admin Dose 2 CAP; Start 01/01/19 at 08:00 Pantoprazole (Protonix Tab) 40 mg BID@06,18 PO Last administered on 01/02/19 06:24; Admin Dose 40 MG; Start 01/01/19 at 06:00 Simethicone (Mylicon) 80 mg Q6H PRN PO DISTENSION/GAS/BLOATING; Start 01/01/19 at 01:00 Spironolactone (Aldactone) 25 mg BID PO Last administered on 01/02/19 08:50; Admin Dose 25 MG; Start 01/01/19 at 09:00 Sucralfate (Carafate Susp) 1 gm QID PO Last administered on 01/02/19 12:53; Admin Dose 1 GM; Start 01/01/19 at 09:00 Tramadol HCl (Ultram) 50 mg Q4 PRN PO PAIN Last administered on 01/02/19 11:11; Admin Dose 50 MG; Start 01/01/19 at 01:00 Colchicine (Colchicine) 0.6 mg BID PO Last administered on 01/02/19 08:51; Admin Dose 0.6 MG; Start 01/01/19 at 09:00 Piperacillin Sod/ Tazobactam Sod 100 ml @ 200 mls/hr Q6 IVPB Last administered on 01/02/19 12:54; Admin Dose 200 MLS/HR; Start 01/01/19 at 07:00 Nadolol (Corgard) 20 mg BID PO Last administered on 01/02/19 08:52; Admin Dose 20 MG; Start 01/01/19 at 21:00 Hydromorphone HCl (Dilaudid) 1 mg Q3H PRN IV SEVERE PAIN LEVEL 7-10 Last administered on 01/02/19 13:22; Admin Dose 1 MG; Start 01/01/19 at 13:30 Levalbuterol (Xopenex Neb) 0.63 mg Q4H RESP THERAPY PRN HHN sob Last administered on 01/02/19 00:20; Admin Dose 0.63 MG; Start 01/02/19 at 00:30 Clindamycin HCl/ Dextrose 50 ml @ 50 mls/hr Q8 IVPB Last administered on 7/8/19at 14:09; Admin Dose 50 MLS/HR; Start 01/02/19 at 01:00 MICHAEL PARKER MD Jan 02, 2019 15:29
[2019-01-02] MEDS ORDERED: LIDOCAINE 1% (MPF) 5 ML VIAL ONE (15:49)
[2019-01-02 20:00] VITALS: BP 115/70; PULSE 71; RESP 19
[2019-01-03 02:00] VITALS: BP 109/58; PULSE 81; RESP 17
[2019-01-03] MEDS: PANTOPRAZOLE (EC) 40 MG TAB PO SCH ×2 (05:32→17:43)
[2019-01-03] MEDS: PIPER-TAZO 3.375 GM IV (PMX) 100 ML IVPB SCH ×3 (05:32→17:43)
[2019-01-03] MEDS: HYDROmorphONE 1 MG/ML SYG IV PRN ×4 (05:35→21:06)
[2019-01-03] MEDS: FUROSEMIDE 20 MG TAB PO SCH (06:00)
[2019-01-03 06:04] VITALS: BP 99/69
[2019-01-03 07:47] VITALS: BP 113/68; PULSE 70; RESP 20
[2019-01-03] MEDS: SUCRALFATE (100 MG/ML) 10ML CUP PO SCH ×4 (09:14→20:51)
[2019-01-03] MEDS: COLCHICINE 0.6 MG CAP PO SCH ×2 (09:15→20:50)
[2019-01-03] MEDS: SPIRONOLACTONE 25 MG TAB PO SCH ×2 (09:15→20:50)
[2019-01-03] MEDS: CREON (24K-76K-120K) 1 CAP PO SCH ×3 (09:16→17:43)
[2019-01-03] MEDS: AZATHIOPRINE 50 MG TAB PO SCH (09:16)
[2019-01-03] MEDS: APIXABAN 5 MG TABLET PO SCH ×2 (09:16→20:50)
[2019-01-03] MEDS: NADOLOL 40 MG TAB PO SCH ×2 (09:16→20:50)
[2019-01-03] MEDS: AMLODIPINE 10 MG TAB PO SCH (09:17)
[2019-01-03] MEDS: ONDANSETRON 4 MG INJ IV PRN (12:42)
[2019-01-03 14:18] VITALS: BP 121/64; PULSE 71; RESP 20
[2019-01-03] MEDS: METHYLPREDNISOLONE 40 MG INJ IV SCH ×2 (15:12→20:52)
[2019-01-03] MEDS: NACL 0.9% 3 ML SYG IV SCH (15:14)
--- NOTE | 2019-01-03 16:03 | PN ---
Date/Time of Note Date/Time of Note DATE: 01/03/19 TIME: 15:58 Assessment/Plan VTE Prophylaxis Risk score (from Nsg)>0 risk: 5 SCD applied (from Nsg): Yes Pharmacological prophylaxis: heparin Lines/Catheters IV Catheter Type (from Nrsg): [place] Urinary Cath still in place: No Assessment/Plan Hospital Course Appears well no distress RRR CTAB Abdomen distended, mildly tender in epigastrium Mild pedal edema A/P: 33 yo female with lupus and cirrhosis and PVT who presents with continue abdominal pain - Exact etiology of pain is unclear. It is located primarily in epigastrium. C T scan shows pancretic stranding but lipase is normal making pancreatitis unlikely. Perhpas her pain is 2/2 hiatial hernia, Dr Varghese from general surgery does not advocate for operation. SBP is excluded. Pain is resolving. If doing ok tomorrow will dc home - Continue pain control SIRS: - Unclear source of fever. Continue empiric abx for now. 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 Hx Raynaud's Syndrome - hx right mid finger amputation - continue precautions 9. Obesity - Weight reduction was advised Result Diagram: 01/02/19 0554 01/02/19 0554 Subjective 24 Hr Interval Summary Free Text/Dictation Resumed on steroids by rheumatology Paracentesis was done yesterday, negative for SBP Says abdominal discomfort is improved. Less pressure in belly Exam/Review of Systems Exam Vitals Vital Signs Date Temp Pulse Resp B/P (MAP) Pulse Ox O2 O2 Flow FiO2 Time Delivery Rate 01/03/19 97.4 71 20 121/64 98 14:18 (83) 01/02/19 2.0 17:33 01/02/19 Nasal 11:46 Cannula Intake and Output 01/02/19 01/02/19 01/03/19 1515:00 23:00 07:00 IntakeIntake Total 550 ml 580 ml 200 ml BalanceBalance 550 ml 580 ml 200 ml Constitutional: alert, oriented, well developed Psych: no complaints, nl mood/affect Head: normocephalic, atraumatic Eyes: nl conjunctiva, EOMI, nl lids, nl sclera, PERRL ENMT: nl external ears & nose, nl lips & teeth, nl nasal mucosa & septum Neck: supple, non-tender Respiratory: clear to auscultation, normal air movement Cardiovascular: regular rate and rhythm, nl pulses Gastrointestinal: soft, nl liver, spleen, non-tender Musculoskeletal: nl extremities to inspection, nl gait and stance Extremities: normal pulses Neurological: TORCH HEATER II-XII intact, nl mental status, nl speech, nl strength Skin: nl turgor; No rash or lesions Lymph: nl lymph nodes Medications Medication Current Medications IV Flush (NS 3 ml) 3 ml PER PROTOCOL IV Last administered on 01/03/19 15:14; Admin Dose 3 ML; Start 01/01/19 at 01:00 Ondansetron HCl (Zofran Inj) 4 mg Q6H PRN IV NAUSEA/VOMITING Last administered on 01/03/19 12:42; Admin Dose 4 MG; Start 01/01/19 at 01:00 Acetaminophen/ Hydrocodone Bitart ([place] (5/325)) 1 tab Q6H PRN PO .MOD PAIN 4- 6; Start 01/01/19 at 01:00 Acetaminophen/ Hydrocodone Bitart ([place] (5/325)) 2 tab Q6H PRN PO .SEVERE PAIN 7-10 Last administered on 01/01/19 09:19; Admin Dose 2 TAB; Start 01/01/19 at 01 :00 Acetaminophen (Tylenol Tab) 650 mg Q6H PRN PO .PAIN 1-3 OR TEMP Last administered on 01/02/19 11:10; Admin Dose 650 MG; Start 01/01/19 at 01:00 Apixaban (Eliquis) 5 mg BID PO Last administered on 01/03/19 09:16; Admin Dose 5 MG; Start 01/01/19 at 09:00 Azathioprine (Imuran) 100 mg DAILY PO Last administered on 01/03/19 09:16; Admin Dose 100 MG; Start 01/01/19 at 09:00 Furosemide (Lasix) 20 mg DAILY@0600 PO Last administered on 01/02/19 06:28; Admin Dose 20 MG; Start 01/01/19 at 06:00 Amylase/Lipase/ Protease (Creon ([id number])) 2 cap WITH MEALS PO Last administered on 01/03/19 12:42; Admin Dose 2 CAP; Start 01/01/19 at 08:00 Pantoprazole (Protonix Tab) 40 mg BID@06,18 PO Last administered on 01/03/19 05:32; Admin Dose 40 MG; Start 01/01/19 at 06:00 Simethicone (Mylicon) 80 mg Q6H PRN PO DISTENSION/GAS/BLOATING; Start 01/01/19 at 01:00 Spironolactone (Aldactone) 25 mg BID PO Last administered on 01/03/19 09:15; Admin Dose 25 MG; Start 01/01/19 at 09:00 Sucralfate (Carafate Susp) 1 gm QID PO Last administered on 01/03/19 12:41; Admin Dose 1 GM; Start 01/01/19 at 09:00 Tramadol HCl (Ultram) 50 mg Q4 PRN PO PAIN Last administered on 01/02/19 22:23; Admin Dose 50 MG; Start 01/01/19 at 01:00 Colchicine (Colchicine) 0.6 mg BID PO Last administered on 01/03/19 09:15; Admin Dose 0.6 MG; Start 01/01/19 at 09:00 Piperacillin Sod/ Tazobactam Sod 100 ml @ 200 mls/hr Q6 IVPB Last administered on 01/03/19 12:41; Admin Dose 200 MLS/HR; Start 01/01/19 at 07:00 Nadolol (Corgard) 20 mg BID PO Last administered on 01/03/19 09:16; Admin Dose 20 MG; Start 01/01/19 at 21:00 Hydromorphone HCl (Dilaudid) 1 mg Q3H PRN IV SEVERE PAIN LEVEL 7-10 Last administered on 01/03/19 12:42; Admin Dose 1 MG; Start 01/01/19 at 13:30 Levalbuterol (Xopenex Neb) 0.63 mg Q4H RESP THERAPY PRN HHN sob Last administered on 7/8/19at 00:20; Admin Dose 0.63 MG; Start 01/02/19 at 00:30 Methylprednisolone Sodium Succinate (Solu-Medrol) 10 mg Q12 IV Last administered on 01/03/19at 15:12; Admin Dose 10 MG; Start 01/03/19 at 14:30 MICHAEL PARKER MD Jan 03, 2019 16:03
[2019-01-03 20:02] VITALS: BP 128/73; PULSE 84; RESP 18
[2019-01-04] MEDS: PIPER-TAZO 3.375 GM IV (PMX) 100 ML IVPB SCH ×4 (00:41→17:15)
--- NOTE | 2019-01-04 01:22 | CONS ---
DATE OF ADMISSION: 12/31/2018 DATE OF CONSULTATION: HISTORY OF PRESENT ILLNESS: The patient is a 33-year-old woman with a long history of lupus , treated with Imuran and prednisone 5 to 10 mg as outpatient in the past. The patient has had multi ple complications recently including a hepatic vein thrombosis with pneumotosis intestinalis of the r ight colon and hepatic flexure and possible bowel ischemia. She also had evidence of pancreatitis as well as possible pericarditis which was felt initially to possibly be due to the lupus and was treat ed with higher doses of steroids. These were eventually tapered to 10 mg b.i.d. She continued with abdominal pain throughout her hospital stay. The patient was then transferred to a [facility] for possible TIPS and/or thrombectomy. During the hospital stay she was treated for the pericard itis, also with colchicine and improved. She was seen at [facility] and the plan was to plac e her on Eliquis and with consideration subsequently for TIPS if there was no sequela of the portal v ein thrombosis and if she does not respond adequately. As mentioned, there was right colonic wall th ickening which was a suspicion for ischemia due to the venous thrombosis. There was also ascites. T he patient was then transferred back to [facility] and was subsequently discharged home on Eliquis and prednisone 10 mg daily. The patient returned several days ago to [facility] due to increased abdominal pain, and she had diffuse abdominal pain, but CT scan did not show ev idence of new perforation. Further GI and vascular evaluation in progress. In regard to the lupus, the patient denies recent rashes or arthritis and there has not been renal in volvement. The patient has a history of Raynaud's in the past but not recently. PAST MEDICAL HISTORY: Positive for: 1. Lupus. 2. History of cirrhosis and portal vein thrombosis with pneumatosis intestinalis. 3. She also has had transient pancreatitis per imaging studies, although her lipase has been normal, although her lipase has been normal. 4. She does have esophageal varices. 5. She has history of gastric ulcer. 6. Obesity. MEDICATIONS PRIOR TO THIS ADMISSION: 1. Prednisone 10 mg daily. 2. Azathioprine 100 mg daily. ALLERGIES: 1. VANCOMYCIN. 2. POSSIBLY AVOCADOS. PAST SURGICAL HISTORY: Includes splenectomy and right index finger amputations in 2017 due to the Ra ynaud's. SOCIAL HISTORY: The patient does not smoke or drink alcohol or use other drugs. FAMILY HISTORY: Noncontributory. PHYSICAL EXAMINATION: GENERAL: Well-developed, slightly obese woman in no acute distress at present, alert, orien sylvain x3. SKIN: Without acute lesions. No sclerodactyly or telangiectasias or periungual erythema. HEENT: Without acute oral or ocular lesions. NECK: Without lymphadenopathy, supple. CHEST: Clear to auscultation. HEART: Regular rate and rhythm without obvious gallops or murmurs noted at this point. ABDOMEN: Moderate tenderness diffusely. Negative rebound tenderness. Moderately distended. EXTREMITIES: Without cyanosis or edema. MUSCULOSKELETAL: Joints without synovitis or tenderness. NEUROLOGIC: Grossly intact. Chart reviewed. ASSESSMENT: 1. Lupus. This appears to be relatively inactive at present. No significant evidence of active per icarditis. No evidence of synovitis or renal disease. 2. Portal vein thrombosis history with a recent history of possible bowel ischemia and pneumatosis i ntestinalis. 3. Anticoagulation with Eliquis. 4. Abdominal pain secondary to possibly ischemic bowel. No definite evidence for lupus related infl ammatory etiology. 5. Pericarditis. Appears well controlled on colchicine and corticosteroids. PLAN: Would continue the steroids at 10 mg Solu-Medrol b.i.d. at present but rapidly and possibly de crease it to 10 mg daily and when gets discharged to go back to 10 mg prednisone daily. Would not st op the prednisone or decrease significantly as the patient is likely adrenally suppressed. Thank you for having me see the patient rheumatologically. We will follow while in the hospital. Dictated By: SAHRA MITCHELL/BERTO Conf#: [id number] DID#: [id number] CC: MEKHI GOODMAN MD;*EndCC*
[2019-01-04 02:17] VITALS: BP 113/72; PULSE 71; RESP 16
[2019-01-04] MEDS: HYDROmorphONE 1 MG/ML SYG IV PRN ×3 (05:33→16:36)
[2019-01-04] MEDS: PANTOPRAZOLE (EC) 40 MG TAB PO SCH ×2 (05:33→17:15)
[2019-01-04] MEDS: FUROSEMIDE 20 MG TAB PO SCH (05:34)
[2019-01-04 07:23] VITALS: BP 109/58; PULSE 79; RESP 18
[2019-01-04] MEDS: SUCRALFATE (100 MG/ML) 10ML CUP PO SCH ×3 (09:09→16:36)
[2019-01-04] MEDS: NADOLOL 40 MG TAB PO SCH (09:11)
[2019-01-04] MEDS: METHYLPREDNISOLONE 40 MG INJ IV SCH (09:12)
[2019-01-04] MEDS: COLCHICINE 0.6 MG CAP PO SCH (09:13)
[2019-01-04] MEDS: CREON (24K-76K-120K) 1 CAP PO SCH ×3 (09:13→17:15)
[2019-01-04] MEDS: AZATHIOPRINE 50 MG TAB PO SCH (09:13)
[2019-01-04] MEDS: SPIRONOLACTONE 25 MG TAB PO SCH (09:13)
[2019-01-04] MEDS: APIXABAN 5 MG TABLET PO SCH (09:13)
[2019-01-04] MEDS: ONDANSETRON 4 MG INJ IV PRN (12:37)
[2019-01-04] MEDS ORDERED: LAS20 PO (12:50)
[2019-01-04] MEDS ORDERED: SPIR25TA PO (12:50)
--- NOTE | 2019-01-04 13:18 | CONS ---
Consult Date/Type/Reason Admit Date/Time Dec 31, 2018 at 23:57 Initial Consult Date 01/01/19 Date/Time of Note DATE: 01/04/19 TIME: 13:13 Subjective Feeling better. Less abd. pain. No new complaints. Objective Vitals Vital Signs Date Temp Pulse Resp B/P (MAP) Pulse Ox O2 O2 Flow FiO2 Time Delivery Rate 01/04/19 97.9 79 18 109/58 99 07:23 (75) 01/02/19 2.0 17:33 01/02/19 Nasal 11:46 Cannula Intake and Output 01/03/19 01/03/19 01/04/19 1515:00 23:00 07:00 IntakeIntake Total 820 ml 460 ml 200 ml BalanceBalance 820 ml 460 ml 200 ml Exam GENERAL: No acute distress at present, alert, oriented x3. SKIN: Without acute lesions. No sclerodactyly or telangiectasias or periungual erythema. HEENT: Without acute oral or ocular lesions. NECK: Without lymphadenopathy, supple. CHEST: Clear to auscultation. HEART: Regular rate and rhythm without obvious gallops or murmurs noted at this point. ABDOMEN: Mild tenderness diffusely. Negative rebound tenderness. Moderately distended. EXTREMITIES: Without cyanosis or edema. MUSCULOSKELETAL: Joints without synovitis or tenderness. NEUROLOGIC: Grossly intact. Results/Medications Result Diagram: 01/04/1944101/04/19441 Results 24 hrs Laboratory Tests Test 01/04/19 04:42 White Blood Count 8.3 # Red Blood Count 3.65 L Hemoglobin 8.5 L Hematocrit 28.3 L Mean Corpuscular Volume 77.5 L Mean Corpuscular Hemoglobin 23.3 L Mean Corpuscular Hemoglobin Concent 30.0 L Red Cell Distribution Width 20.0 H Platelet Count 442 H Mean Platelet Volume 11.1 H Immature Granulocytes % 0.700 H Neutrophils % 93.4 H Lymphocytes % 3.4 L Monocytes % 2.3 Eosinophils % 0.0 Basophils % 0.2 Nucleated Red Blood Cells % 1.6 H Immature Granulocytes # 0.060 H Neutrophils # 7.7 H Lymphocytes # 0.3 L Monocytes # 0.2 L Eosinophils # 0.0 Basophils # 0.0 Nucleated Red Blood Cells # 0.1 H Sodium Level 139 Potassium Level 4.1 Chloride Level 108 Carbon Dioxide Level 24 Anion Gap 7 Blood Urea Nitrogen 8 Creatinine 0.48 Est Glomerular Filtrat Rate mL/min > 60 Glucose Level 128 Calcium Level 8.7 Total Bilirubin 0.7 Direct Bilirubin 0.00 Indirect Bilirubin 0.7 Aspartate Amino Transf (AST/SGOT) 19 Alanine Aminotransferase (ALT/SGPT) 36 Alkaline Phosphatase 309 H Total Protein 6.1 Albumin 2.8 L Globulin 3.30 H Albumin/Globulin Ratio 0.84 Home Meds Active Scripts Furosemide (Lasix) 20 Mg Tab, 40 MG PO DAILY for 30 Days, #30 TAB 5 Refills Prov:MICHAEL PARKER MD 01/04/19 Spironolactone* (Aldactone*) 25 Mg Tablet, 50 MG PO BID, #60 TAB 5 Refills Prov:MICHAEL PARKER MD 01/04/19 Apixaban* (Eliquis*) 5 Mg Tablet, 5 MG PO BID for 60 Days, #120 TAB 1 Refill Prov:MARCIO BANKS 12/27/18 [Colchicine] 0.6 MG TAB No Conflict Check, 0.6 MG PO BID, #60 Prov:CHILO LEE NP 12/16/18 Sucralfate* (Carafate*) 1 Gm/10 Ml Susp, 1 GM PO QID for 30 Days, #1 EA 2 Refills Prov:LIUDMILA DUMONT MD 11/17/18 Nadolol (Corgard) 40 Mg Tablet, 20 MG PO BID for 15 Days, #30 TAB Prov:LIUDMILA DUMONT MD 11/17/18 Pantoprazole* (Pantoprazole*) 40 Mg Tablet.dr, 40 MG PO BID@06,18 for 30 Days, #60 TAB 1 Refill Prov:LIUDMILA DUMONT MD 11/17/18 Reported Medications Amlodipine Besylate* (Amlodipine Besylate*) 10 Mg Tablet, 5 MG PO BID, #30 TAB 11/29/18 Azathioprine* (Imuran*) 50 Mg Tab, 100 MG PO DAILY, TAB 11/14/18 Discontinued Reported Medications Calcium Carbonate/Vitamin D3 (Calcium 500 mg Chewable Tablet) 1 Each Tab.chew, 1 EACH PO DAILY, TAB.CHEW 11/14/18 Discontinued Scripts Simethicone* (Mylicon*) 80 Mg Tab, 80 MG PO Q6H PRN for DISTENSION/GAS/BLOATING, #60 TAB Prov:MARCIO BANKS 12/27/18 Hyoscyamine Sulfate* (Hyoscyamine Sulfate*) 0.125 Mg Tab.subl, 0.125 MG PO Q8 for 30 Days, #90 TAB Prov:JOCELYNCORDELLLubna 12/27/18 Methylprednisolone Sodium Succinate PF (Solu-Medrol PF) 40 Mg/1 Ml Vial, 10 MG IV BID for 14 Days, VIAL Prov:CHILO LEE NP 12/16/18 Wllxqr-Jmeuyleg-Lszawuv* (Cretom DR* 24,000) 24,000 L-76,000-120,000 Unit Capsule.dr, 2 CAP PO WITH MEALS, #120 Prov:CHILO LEE NP 12/16/18 Lactobacillus Rhamnosus GG (Culturelle) 1 Each Capsule, 1 CAP PO WITH MEALS, #120 CAP Prov:CHILO LEE NP 12/16/18 Cyclobenzaprine Hcl* (Cyclobenzaprine Hcl*) 10 Mg Tablet, 10 MG PO TID, #15 TAB Prov:MICKY CHAN MD 11/26/18 Tramadol HCl (Tramadol HCl) 50 Mg Tablet, 50 MG PO Q4 PRN for PAIN, #20 TAB Prov:MICKY CHAN MD 11/26/18 Acetaminophen* (Tylenol*) 325 Mg Tablet, 650 MG PO Q6H PRN for .PAIN 1-3 OR TEMP for 1 Day, TAB Prov:LIUDMILA DUMONT MD 11/17/18 Medications Current Medications IV Flush (NS 3 ml) 3 ml PER PROTOCOL IV Last administered on 01/03/19at 15:14; Admin Dose 3 ML; Start 01/01/19 at 01:00 Ondansetron HCl (Zofran Inj) 4 mg Q6H PRN IV NAUSEA/VOMITING Last administered on 01/04/19at 12:37; Admin Dose 4 MG; Start 01/01/19 at 01:00 Acetaminophen/ Hydrocodone Bitart ([place] (5/325)) 1 tab Q6H PRN PO .MOD PAIN 4- 6; Start 01/01/19 at 01:00 Acetaminophen/ Hydrocodone Bitart ([place] (5/325)) 2 tab Q6H PRN PO .SEVERE PAIN 7-10 Last administered on 01/01/19 09:19; Admin Dose 2 TAB; Start 01/01/19 at 01:00 Acetaminophen (Tylenol Tab) 650 mg Q6H PRN PO .PAIN 1-3 OR TEMP Last administered on 01/02/19 11:10; Admin Dose 650 MG; Start 01/01/19 at 01:00 Apixaban (Eliquis) 5 mg BID PO Last administered on 01/04/19 09:13; Admin Dose 5 MG; Start 01/01/19 at 09:00 Azathioprine (Imuran) 100 mg DAILY PO Last administered on 01/04/19 09:13; Admin Dose 100 MG; Start 01/01/19 at 09:00 Furosemide (Lasix) 20 mg DAILY@0600 PO Last administered on 01/04/19 05:34; Admin Dose 20 MG; Start 01/01/19 at 06:00 Amylase/Lipase/ Protease (Creon ([id number])) 2 cap WITH MEALS PO Last administered on 01/04/19 12:32; Admin Dose 2 CAP; Start 01/01/19 at 08:00 Pantoprazole (Protonix Tab) 40 mg BID@06,18 PO Last administered on 01/04/19 05:33; Admin Dose 40 MG; Start 01/01/19 at 06:00 Simethicone (Mylicon) 80 mg Q6H PRN PO DISTENSION/GAS/BLOATING; Start 01/01/19 at 01:00 Spironolactone (Aldactone) 25 mg BID PO Last administered on 01/04/19 09:13; Admin Dose 25 MG; Start 01/01/19 at 09:00 Sucralfate (Carafate Susp) 1 gm QID PO Last administered on 01/04/19 12:32; Admin Dose 1 GM; Start 01/01/19 at 09:00 Tramadol HCl (Ultram) 50 mg Q4 PRN PO PAIN Last administered on 01/02/19 22:23; Admin Dose 50 MG; Start 01/01/19 at 01:00 Colchicine (Colchicine) 0.6 mg BID PO Last administered on 01/04/19 09:13; Admin Dose 0.6 MG; Start 01/01/19 at 09:00 Piperacillin Sod/ Tazobactam Sod 100 ml @ 200 mls/hr Q6 IVPB Last administered on 01/04/19 12:32; Admin Dose 200 MLS/HR; Start 01/01/19 at 07:00 Nadolol (Corgard) 20 mg BID PO Last administered on 01/04/19 09:11; Admin Dose 20 MG; Start 01/01/19 at 21:00 Hydromorphone HCl (Dilaudid) 1 mg Q3H PRN IV SEVERE PAIN LEVEL 7-10 Last administered on 01/04/19 12:38; Admin Dose 1 MG; Start 01/01/19 at 13:30 Levalbuterol (Xopenex Neb) 0.63 mg Q4H RESP THERAPY PRN HHN sob Last administered on 01/02/19 00:20; Admin Dose 0.63 MG; Start 01/02/19 at 00:30 Methylprednisolone Sodium Succinate (Solu-Medrol) 10 mg Q12 IV Last administered on 01/04/19 09:12; Admin Dose 10 MG; Start 01/03/19 at 14:30 Assessment/Plan Assessment/Plan (Daily) 1. Lupus. This appears to be relatively inactive at present. No significant evidence of active pericarditis. No evidence of synovitis or renal disease. 2. Portal vein thrombosis history with a recent history of possible bowel ischemia and pneumatosis intestinalis. 3. Anticoagulation with Eliquis. 4. Abdominal pain secondary to possibly ischemic bowel. No definite evidence for lupus related inflammatory etiology. 5. Pericarditis. Appears well controlled on colchicine and corticosteroids. PLAN: As feeling much better, agree with discharge home on 10 mg prednisone daily and the Imuran. Patient understands that [facility] Arrangements are being attempted to arrange for this. Also to f/u with her Check Airman SAHRA COLVIN MD Jan 04, 2019 13:18
--- NOTE | 2019-01-04 13:52 | PDOCDIS ---
Discharge Instructions DIAGNOSIS Discharge Diagnosis Cirrhosis Lupus Portal vein thrombosis CONDITION [id number] Patient Condition: [id number] Stable FOLLOW UP/APPOINTMENTS Follow-up Plan Make an appointment to see your [facility] executive director JODI It is also extremely important for you to establish care with a liver specialist at [facility], [facility], or [facility] as soon as you can Return to the hospital if you have any concerning symptoms MICHAEL PARKER MD Jan 04, 2019 13:52
--- NOTE | 2019-01-04 13:55 | DS ---
Date/Time of Note Date/Time of Note DATE: 01/04/19 TIME: 13:52 Discharge Summary Admission/Discharge Info Admit Date/Time Dec 31, 2018 at 23:57 Discharge Date/Time Discharge Diagnosis Cirrhosis Lupus Portal vein thrombosis Patient Condition: Stable Hospital Course 33 yo female with lupus and cirrhosis and PVT who presents with continued abdominal pain The exact etiology of her pain was unclear. CT scan showed pancretic stranding but lipase wass normal making pancreatitis unlikely. CT also showed a a hiatial hernia but Dr Varghese from general surgery does not advocate for operation. SBP was excluded wiht paracentesis. her pain self resolved. She did have a fever and was treated with empiric antibiotics. All cultures wer e negative and antibiotics were not continued at discharge Her diuretics dose was double to lasix 40 daily and jairo 100 daily. She was advised to establish care JODI with a liver specialist at a tertiary center She was continued on azathrioprine, colchicine and prendisone 10 per rheumatology consultation She was also continued on Eliquis for her portal vein thrombosis Home Meds Active Scripts Furosemide (Lasix) 20 Mg Tab, 40 MG PO DAILY for 30 Days, #30 TAB 5 Refills Prov:MICHAEL PARKER MD 01/04/19 Spironolactone* (Aldactone*) 25 Mg Tablet, 50 MG PO BID, #60 TAB 5 Refills Prov:MICHAEL PARKER MD 01/04/19 Apixaban* (Eliquis*) 5 Mg Tablet, 5 MG PO BID for 60 Days, #120 TAB 1 Refill Prov:MARCIO BANKS 12/27/18 [Colchicine] 0.6 MG TAB No Conflict Check, 0.6 MG PO BID, #60 Prov:CHILO LEE NP 12/16/18 Sucralfate* (Carafate*) 1 Gm/10 Ml Susp, 1 GM PO QID for 30 Days, #1 EA 2 Refills Prov:LIUDMILA DUMONT MD 11/17/18 Nadolol (Corgard) 40 Mg Tablet, 20 MG PO BID for 15 Days, #30 TAB Prov:LIUDMILA DUMONT MD 11/17/18 Pantoprazole* (Pantoprazole*) 40 Mg Tablet.dr, 40 MG PO BID@06,18 for 30 Days, #60 TAB 1 Refill Prov:LIUDMILA DUMONT MD 11/17/18 Reported Medications Amlodipine Besylate* (Amlodipine Besylate*) 10 Mg Tablet, 5 MG PO BID, #30 TAB 11/29/18 Azathioprine* (Imuran*) 50 Mg Tab, 100 MG PO DAILY, TAB 11/14/18 Discontinued Reported Medications Calcium Carbonate/Vitamin D3 (Calcium 500 mg Chewable Tablet) 1 Each Tab.chew, 1 EACH PO DAILY, TAB.CHEW 11/14/18 Discontinued Scripts Simethicone* (Mylicon*) 80 Mg Tab, 80 MG PO Q6H PRN for DISTENSION/GAS/BLOATING, #60 TAB Prov:MARCIO BANKS 12/27/18 Hyoscyamine Sulfate* (Hyoscyamine Sulfate*) 0.125 Mg Tab.subl, 0.125 MG PO Q8 for 30 Days, #90 TAB Prov:MARCIO BANKS 12/27/18 Methylprednisolone Sodium Succinate PF (Solu-Medrol PF) 40 Mg/1 Ml Vial, 10 MG IV BID for 14 Days, VIAL Prov:CHILO LEE NP 12/16/18 Xhngfu-Mbvmsrlb-Bwxpqsd* (Rhonda NIETO* 24,000) 24,000 L-76,000-120,000 Unit Capsule.dr, 2 CAP PO WITH MEALS, #120 Prov:CHILO LEE NP 12/16/18 Lactobacillus Rhamnosus GG (Culturelle) 1 Each Capsule, 1 CAP PO WITH MEALS, #120 CAP Prov:CHILO LEE NP 12/16/18 Cyclobenzaprine Hcl* (Cyclobenzaprine Hcl*) 10 Mg Tablet, 10 MG PO TID, #15 TAB Prov:MICKY CHAN MD 11/26/18 Tramadol HCl (Tramadol HCl) 50 Mg Tablet, 50 MG PO Q4 PRN for PAIN, #20 TAB Prov:MICKY CHAN MD 11/26/18 Acetaminophen* (Tylenol*) 325 Mg Tablet, 650 MG PO Q6H PRN for .PAIN 1-3 OR TEMP for 1 Day, TAB Prov:LIUDMILA DUMONT MD 11/17/18 Follow-up Plan Make an appointment to see your travel med surg rn JDOI It is also extremely important for you to establish care with a liver specialist at [facility], [facility], or [facility] as soon as you can Return to the hospital if you have any concerning symptoms Primary Care Provider [facility] Pending Labs Laboratory Tests Test 01/04/19 04:42 White Blood Count 8.3 10^3/ul (4.8-10.8) Red Blood Count 3.65 10^6/ul (4.20-5.40) Hemoglobin 8.5 g/dl (12.0-16.0) Hematocrit 28.3 % (37.0-47.0) Mean Corpuscular Volume 77.5 fl (82.0-101.0) Mean Corpuscular Hemoglobin 23.3 pg (29.0-33.0) Mean Corpuscular Hemoglobin Concent 30.0 g/dl (32.0-37.0) Red Cell Distribution Width 20.0 % (11.5-14.5) Platelet Count 442 10^3/UL (140-415) Mean Platelet Volume 11.1 fl (7.4-10.4) Immature Granulocytes % 0.700 % (0.001-0.429) Neutrophils % 93.4 % (39.0-77.0) Lymphocytes % 3.4 % (15.0-51.0) Monocytes % 2.3 % (0.0-11.0) Eosinophils % 0.0 % (0.0-7.0) Basophils % 0.2 % (0.0-2.0) Nucleated Red Blood Cells % 1.6 /100WBC (0.0-0.0) Immature Granulocytes # 0.060 10^3/ul (0.0-0.031) Neutrophils # 7.7 10^3/ul (1.6-7.5) Lymphocytes # 0.3 10^3/ul (0.8-2.9) Monocytes # 0.2 10^3/ul (0.3-0.9) Eosinophils # 0.0 10^3/ul (0.0-0.5) Basophils # 0.0 10^3/ul (0.0-0.1) Nucleated Red Blood Cells # 0.1 10^3/ul (0.0-0.0) Sodium Level 139 mmol/L (135-144) Potassium Level 4.1 mmol/L (3.5-5.1) Chloride Level 108 mmol/L (97-110) Carbon Dioxide Level 24 mmol/L (21-31) Anion Gap 7 (5-13) Blood Urea Nitrogen 8 mg/dl (7-20) Creatinine 0.48 mg/dl (0.44-1.00) Est Glomerular Filtrat Rate mL/min > 60 mL/min (>60) Glucose Level 128 mg/dl (70-220) Calcium Level 8.7 mg/dl (8.4-10.2) Total Bilirubin 0.7 mg/dl (0.2-1.3) Direct Bilirubin 0.00 mg/dl (0.00-0.20) Indirect Bilirubin 0.7 mg/dl (0-1.1) Aspartate Amino Transf (AST/SGOT) 19 IU/L (15-46) Alanine Aminotransferase (ALT/SGPT) 36 IU/L (13-69) Alkaline Phosphatase 309 IU/L (42-121) Total Protein 6.1 g/dl (6.1-8.1) Albumin 2.8 g/dl (3.3-4.9) Globulin 3.30 g/dl (1.3-3.2) Albumin/Globulin Ratio 0.84 MICHAEL PARKER MD Jan 04, 2019 13:55
[2019-01-04 15:16] VITALS: BP 114/68; PULSE 66; RESP 18
== END 2019-01-04 18:55 | disposition home or self-care (01) | DRG 432 ==
LOC: E/R 18:12 → 2NE 23:57 → CANRESERV 01-01 01:18 → TEL 01-02 01:15 → 2NE 01-02 18:15
PROVIDERS: ADMIT Internal Medicine; ATTEND Internal Medicine
DX: K74.60 Unspecified cirrhosis of liver (principal); I81 Portal vein thrombosis; K86.1 Other chronic pancreatitis; R18.8 Other ascites; M32.12 Pericarditis in systemic lupus erythematosus; K76.6 Portal hypertension; R65.10 Systemic inflammatory response syndrome (SIRS) of non-infectious origin without acute organ dysfunction
CPT/HCPCS: 36415; 71045; 74177; 76705; 80053; 81001; 81025; 83605; 83615; 83690; 83735; 84100; 84157; 84484; 84703; 85025; 85610; 85730; 87070; 87081; 87086; 87102; 87116; 88104; 88305; 89051; 93005; 94664; 96374; 96375; J0131; J1170; J2405; J2543; J2920; J7030; J7500; Q9967

== ENCOUNTER 2019-01-10 17:46 | Emergency (ER) | payer OTHER ==
[~2019-01-10] VITALS: Ht 165.1 cm; Wt 80.5 kg
[2019-01-10 17:48] VITALS: Ht 165.1 cm; Wt 80.5 kg
--- NOTE | 2019-01-10 18:14 | ERD ---
ER Documentation Chief Complaint Chief Complaint abd pain x 2 days h/o pancreatitis , lupus , cirrhosis HPI The patient is a 33-year-old female, presenting with recurrent epigastric abdominal pain, complains of constipation. She had similar symptoms previously, denies vomiting, aggravating/relieving factor, denies fever, chills, neck pain, chest pain, dysuria. She does not smoke nor drink Past medical history: Cirrhosis, gastric cancer, SLE, rheumatoid arthritis, anemia, history of pancreatitis Past surgical history: Splenectomy, right index distal amputation, abdominal paracentesis ROS All systems reviewed and are negative except as per history of present illness. Medications Home Meds Active Scripts Polyethylene Glycol* (Miralax*) 17 Gm Powd.pack, 17 GM PO DAILY, #7 Prov:TITI DAVIS MD 01/10/19 Pantoprazole* (Protonix*) 40 Mg Tablet.dr, 40 MG PO DAILY, #10 TAB Prov:TITI DAVIS MD 01/10/19 Furosemide (Lasix) 20 Mg Tab, 40 MG PO DAILY for 30 Days, #30 TAB 5 Refills Prov:MICHAEL PARKER MD 01/04/19 Spironolactone* (Aldactone*) 25 Mg Tablet, 50 MG PO BID, #60 TAB 5 Refills Prov:MICHAEL PARKER MD 01/04/19 Apixaban* (Eliquis*) 5 Mg Tablet, 5 MG PO BID for 60 Days, #120 TAB 1 Refill Prov:MARCIO BANKS 12/27/18 [Colchicine] 0.6 MG TAB No Conflict Check, 0.6 MG PO BID, #60 Prov:CHILO LEE NP 12/16/18 Sucralfate* (Carafate*) 1 Gm/10 Ml Susp, 1 GM PO QID for 30 Days, #1 EA 2 Refills Prov:LIUDMILA DUMONT MD 11/17/18 Nadolol (Corgard) 40 Mg Tablet, 20 MG PO BID for 15 Days, #30 TAB Prov:LIUDMILA DUMONT MD 11/17/18 Pantoprazole* (Pantoprazole*) 40 Mg Tablet.dr, 40 MG PO BID@06,18 for 30 Days, #60 TAB 1 Refill Prov:LIUDMILA DUMONT MD 11/17/18 Reported Medications Amlodipine Besylate* (Amlodipine Besylate*) 10 Mg Tablet, 5 MG PO BID, #30 TAB 11/29/18 Azathioprine* (Imuran*) 50 Mg Tab, 100 MG PO DAILY, TAB 11/14/18 Discontinued Reported Medications Calcium Carbonate/Vitamin D3 (Calcium 500 mg Chewable Tablet) 1 Each Tab.chew, 1 EACH PO DAILY, TAB.CHEW 11/14/18 Discontinued Scripts Simethicone* (Mylicon*) 80 Mg Tab, 80 MG PO Q6H PRN for DISTENSION/GAS/BLOATING, #60 TAB Prov:MARCIO BANKS 12/27/18 Hyoscyamine Sulfate* (Hyoscyamine Sulfate*) 0.125 Mg Tab.subl, 0.125 MG PO Q8 for 30 Days, #90 TAB Prov:MARCIO BANKS 12/27/18 Methylprednisolone Sodium Succinate PF (Solu-Medrol PF) 40 Mg/1 Ml Vial, 10 MG IV BID for 14 Days, VIAL Prov:CHILO LEE NP 12/16/18 Icihur-Qpnnddix-Byrjaow* (Rhonda NIETO* 24,000) 24,000 L-76,000-120,000 Unit Capsule., 2 CAP PO WITH MEALS, #120 Prov:CHILO LEE NP 12/16/18 Lactobacillus Rhamnosus GG (Culturelle) 1 Each Capsule, 1 CAP PO WITH MEALS, #120 CAP Prov:CHILO LEE NP 12/16/18 Cyclobenzaprine Hcl* (Cyclobenzaprine Hcl*) 10 Mg Tablet, 10 MG PO TID, #15 TAB Prov:MICKY CHAN MD 11/26/18 Tramadol HCl (Tramadol HCl) 50 Mg Tablet, 50 MG PO Q4 PRN for PAIN, #20 TAB Prov:MICKY CHAN MD 11/26/18 Acetaminophen* (Tylenol*) 325 Mg Tablet, 650 MG PO Q6H PRN for .PAIN 1-3 OR TEMP for 1 Day, TAB Prov:LIUDMILA DUMONT MD 11/17/18 Allergies Allergies: Coded Allergies: avocado (Verified Allergy, Unknown, bumps inside her mouth, 11/16/18) vancomycin (Verified Allergy, Unknown, 11/14/18) PMhx/Soc History of Surgery: Yes (spleenectomy, right index finger) Anesthesia Reaction: No Hx Neurological Disorder: No Hx Respiratory Disorders: Yes (asthma) Hx Cardiac Disorders: No (blood clot portal vein) Hx Psychiatric Problems: No Hx Miscellaneous Medical Probl: No Hx Alcohol Use: No Hx Substance Use: No Hx Tobacco Use: No Physical Exam Vitals Vital Signs Date Temp Pulse Resp B/P (MAP) Pulse Ox O2 O2 Flow FiO2 Time Delivery Rate 01/10/19 96 18 133/87 98 Room Air 21:02 (102) 01/10/19 99 14 133/87 100 Room Air 20:30 (102) 01/10/19 97 16 128/87 100 Room Air 18:30 (101) 01/10/19 97.8 115 18 140/89 98 17:48 (106) Physical Exam Const: No acute distress. Head: Atraumatic. Eyes: Normal Conjunctiva. ENT: Normal External Ears, Nose and Mouth. Neck: Full range of motion. No meningismus. Resp: Clear to auscultation bilaterally. Cardio: Regular rate and rhythm. Abd: Soft, non distended, normal bowel sounds, mild epigastric tenderness, no rigidity/rebound/CVA tenderness Skin: No petechiae or rashes. Back: No midline or flank tenderness. Ext: No cyanosis, or edema. Neur: Awake and alert. No focal deficit Psych: Normal Mood and Affect. Result Diagram: 01/10/198 01/10/19 183 Results 24 hrs Laboratory Tests Test 01/10/19 18:38 01/10/19 20:06 01/10/19 20:07 White Blood Count 12.7 10^3/ul Red Blood Count 3.72 10^6/ul Hemoglobin 8.6 g/dl Hematocrit 29.6 % Mean Corpuscular Volume 79.6 fl Mean Corpuscular Hemoglobin 23.1 pg Mean Corpuscular 29.1 g/dl Hemoglobin Concent Red Cell Distribution Width 20.9 % Platelet Count 487 10^3/UL Mean Platelet Volume 10.1 fl Immature Granulocytes % 0.700 % Segmented Neutrophils % (Manual) 66 % Lymphocytes % (Manual) 14 % Monocytes % (Manual) 18 % Eosinophils % (Manual) 2 % Nucleated Red Blood Cells % 6 % Immature Granulocytes # 0.090 10^3/ul Lymphocytes (Manual) 1.7 10^3/ul Monocytes # (Manual) 2.2 10^3/ul Platelet Estimate NORMAL Giant Platelets 1 % Polychromasia 3+ Hypochromasia 3+ Poikilocytosis 3+ Anisocytosis 3+ Microcytosis 1+ Macrocytosis 2+ Sodium Level 141 mmol/L Potassium Level 3.5 mmol/L Chloride Level 108 mmol/L Carbon Dioxide Level 25 mmol/L Anion Gap 8 Blood Urea Nitrogen 12 mg/dl Creatinine 0.55 mg/dl Est Glomerular Filtrat Rate mL/min > 60 mL/min Glucose Level 96 mg/dl Calcium Level 8.9 mg/dl Total Bilirubin 0.9 mg/dl Direct Bilirubin 0.00 mg/dl Indirect Bilirubin 0.9 mg/dl Aspartate Amino Transf (AST/SGOT) 24 IU/L Alanine 30 IU/L Aminotransferase (ALT/SGPT) Alkaline Phosphatase 288 IU/L Total Protein 7.0 g/dl Albumin 3.4 g/dl Globulin 3.60 g/dl Albumin/Globulin Ratio 0.94 Lipase 36 U/L Bedside Urine pH (LAB) 5.5 Bedside Urine Protein (LAB) 2+ Bedside Urine Glucose (UA) Negative Bedside Urine Ketones (LAB) 1+ Bedside Urine Blood Negative Bedside Urine Nitrite (LAB) Negative Bedside Urine Leukocyte Esterase Negative (L POC Beta HCG, Qualitative NEGATIVE Current Medications Medications Dose Sig/Mansi Start Time Status Last (Trade) Ordered Route PRN Stop Time Admin Dose Reason Admin Morphine 2 mg ONCE STAT 01/10/19 DC 01/10/19 Sulfate IV 18:15 18:41 (morphine) 01/10/19 18:18 Ondansetron 4 mg ONCE STAT 01/10/19 DC 01/10/19 HCl (Zofran IV 18:15 18:40 Inj) 01/10/19 18:18 Famotidine 20 mg ONCE STAT 01/10/19 DC 01/10/19 (Pepcid) PO 18:15 18:41 01/10/19 18:18 Morphine 2 mg ONCE STAT 01/10/19 DC 01/10/19 Sulfate IV 20:34 20:42 (morphine) 01/10/19 20:36 40 ml ONCE ONCE 01/10/19 DC 01/10/19 Miscellaneous PO 21:00 20:42 Medication 01/10/19 21:01 (Gi Cocktail (2)) Procedures/MDM MEDICAL MAKING DECISION: The patient is a 33-year-old female, presenting with recurrent chronic epigastric abdominal pain of unclear etiology, was treated with Pepcid IV, morphine 2 mg IV x2 for pain and Zofran IV for nausea and gastrointestinal cocktail with good response, is stable for outpatient follow-up The differential diagnoses considered include but are not limited to cholelithiasis, cholecystitis, choledocholithiasis, cholangitis, pancreatitis, hepatitis, gastritis, peptic ulcer disease, gastric ulcer, appendicitis, cystitis, diverticulitis, partial small bowel obstruction. Departure Diagnosis: Primary Impression: Chronic abdominal pain Additional Impressions: Constipation Anemia Condition: Good Comments She was discharged with Protonix and MiraLAX I discussed the findings with the patient. I advised the patient to follow-up with the primary physician in about 1-2 days for reevaluation and referral to gastroenterology, sooner if needed and return if any concern. Disclaimer: Inadvertent spelling and grammatical errors are likely due to EHR/d ictation software use and do not reflect on the overall quality of patient care. Also, please note that the electronic time recorded on this note does not necessarily reflect the actual time of the patient encounter. TITI DAVIS MD Jan 10, 2019 18:14
[2019-01-10] MEDS ORDERED: ONDANSETRON 4 MG INJ IV STA (18:15)
[2019-01-10] MEDS ORDERED: FAMOTIDINE 20 MG TAB PO STA (18:15)
[2019-01-10] MEDS ORDERED: morphine 2 MG INJ IV STA ×2 (18:15→20:34)
[2019-01-10] MEDS ORDERED: PANT40TA3 PO (20:46)
[2019-01-10] MEDS ORDERED: POLY17PO6 PO (20:47)
[2019-01-10] MEDS ORDERED: LIDOCAINE/MYLANTA 40 ML BTL PO ONE (21:00)
[2019-01-10 21:02] VITALS: BP 133/87; PULSE 96; RESP 18
== END 2019-01-10 21:02 | disposition home or self-care (01) ==
LOC: E/R 17:46
DX: K59.00 Constipation, unspecified (principal); D64.9 Anemia, unspecified; J45.909 Unspecified asthma, uncomplicated; Z85.028 Personal history of other malignant neoplasm of stomach
CPT/HCPCS: 36415; 80053; 81003; 81025; 83690; 85025; 96374; 96375; 96376; J2270; J2405; Z7502; Z7610

== ENCOUNTER 2019-03-20 23:08 | Emergency (ER) | payer OTHER ==
[~2019-03-20] VITALS: Ht 162.6 cm; Wt 70.0 kg
[~2019-03-20 23:08] MED LIST changes: -AMLO-147 PO; +AMLO5TAB4 PO; -CALC-686 PO; +CARSUSP ORAL; +CEPH-443 PO; +COLC0.6C3 ORAL; -CYCL10TA7 PO; +DULO30CA45 PO; +DULO30CA48 ORAL; +HYDR-3609 PO; +HYDR-3980 PO; +HYDR-4011 PO; +HYOS0.1297 SL; +LACT10SO21 PO; +LACT10SO53 ORAL; -LACT1CAP28 PO; +LACT20SO2 PO; -LIPA1CAP6 PO; +LORA-441 PO; +LORA1TAB PO; +MAGN400T27 PO; -METH40VI IV; +METO10TA3 ORAL; +METO10TA3 PO; +METO5TAB2 PO; +MORP-53 PO; +NADO20TA PO; +NADO40TA31 PO; +NALO4SPR NS; +ONDA4TAB14 PO; +ONDA4TAB8 PO; +OSEL75CA23 PO; +PANT40TA3 PO; +POLY17PO6 PO; +RIFA550T4 PO; -SIME80TA60 PO; +SPIR25TA ORAL; +SUCR1TAB35 PO; -TRAM50TA2 PO; +UDMYL PO
[2019-03-20 23:14] VITALS: Ht 162.6 cm; Wt 70.0 kg
[2019-03-21 04:00] VITALS: BP 120/69; PULSE 74; RESP 17
== END 2019-03-21 04:02 | disposition home or self-care (01) ==
LOC: E/R 23:08
DX: D72.819 Decreased white blood cell count, unspecified (principal); D64.9 Anemia, unspecified; R77.0 Abnormality of albumin; D47.3 Essential (hemorrhagic) thrombocythemia; R10.84 Generalized abdominal pain
CPT/HCPCS: 36415; 80053; 81003; 83690; 85025; 85610; Z7502; 99283

== ENCOUNTER 2019-03-22 15:24 | Emergency (ER) | payer OTHER ==
[~2019-03-22] VITALS: Ht 165.1 cm; Wt 80.0 kg
[~2019-03-22 15:24] MED LIST changes: -ACET325T33 PO; -AZAT50TA31 PO; -Colchicine PO; -METO5TAB2 PO; -PANT40TA3 PO; -POLY17PO6 PO; -RIFA550T4 PO; -UDMYL PO
[2019-03-22 15:40] VITALS: Ht 165.1 cm; Wt 80.0 kg
[2019-03-22] MEDS ORDERED: KETOROLAC 15 MG INJ IV STA ×2 (16:49→19:56)
[2019-03-22] MEDS ORDERED: CYCLOBENZAPRINE 10 MG TAB PO ONE (17:00)
[2019-03-22] MEDS ORDERED: morphine 4 MG/ML VIAL IV STA (18:06)
[2019-03-22] MEDS ORDERED: SOD CHLORIDE 0.9% 1,000 ML IV STA (18:06)
[2019-03-22 20:10] VITALS: BP 123/82; PULSE 77; RESP 24
== END 2019-03-22 20:20 | disposition home or self-care (01) ==
LOC: E/R 15:24
DX: M62.838 Other muscle spasm (principal); Z79.01 Long term (current) use of anticoagulants
CPT/HCPCS: 36415; 74176; 80053; 81003; 81025; 83690; 84703; 85025; 96361; 96374; 96375; 96376; J1885; J2270; J7030; Z7502; Z7610